=== PATIENT | female | born 1935 | race Caucasian/White ===

== ENCOUNTER 2021-03-20 08:12 | Outpatient (REF) | payer MEDICARE, OTHER, SELFPAY | END 2021-03-20 08:13 | disposition home or self-care (01) | LOC: HO.HOSX 08:12 | PROVIDERS: Visit Provider Physician Assistant | DX: Z13.89 Encounter for screening for other disorder (principal) ==

== ENCOUNTER 2021-03-27 08:12 | Outpatient (REF) | payer MEDICARE, OTHER, SELFPAY ==
--- NOTE | ~2021-03-27 | XR_ITS ---
EXAMINATION: KNEE X-RAY CLINICAL INFORMATION: Right knee pain COMPARISON: Previous x-ray November 2012 TECHNIQUE: Standing AP view of both knees and lateral and sunrise view of the right knee FINDINGS: Right: Bone alignment is normal. No fracture or dislocation is seen. There is mild degenerative change at the medial femoral tibial and patellofemoral joints. There is a ohgwm-xs-vomqubrz joint effusion. There is soft tissue arterial calcification. Standing AP view of the left knee demonstrates mild degenerative change at the medial femoral tibial joint. 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
--- NOTE | ~2021-03-27 | XR_ITS ---
EXAMINATION: KNEE X-RAY CLINICAL INFORMATION: Right knee pain COMPARISON: Previous x-ray November 2012 TECHNIQUE: Standing AP view of both knees and lateral and sunrise view of the right knee FINDINGS: Right: Bone alignment is normal. No fracture or dislocation is seen. There is mild degenerative change at the medial femoral tibial and patellofemoral joints. There is a ychmw-sr-urdwlvew joint effusion. There is soft tissue arterial calcification. Standing AP view of the left knee demonstrates mild degenerative change at the medial femoral tibial joint. XR/XR knee RT 2V IMPRESSION: Right knee: Mild arthritis at the medial femoral tibial and patellofemoral joints and joint effusion.
== END 2021-03-27 08:13 | disposition home or self-care (01) ==
LOC: HO.HOSX 08:12
PROVIDERS: Visit Provider Physician Assistant
DX: M25.561 Pain in right knee (principal); M17.11 Unilateral primary osteoarthritis, right knee; E11.9 Type 2 diabetes mellitus without complications
CPT/HCPCS: 73560; 73565; 99202

== ENCOUNTER → 2021-04-03 08:31 | Outpatient (BNVA) | payer MEDICARE, OTHER, SELFPAY | PROVIDERS: Visit Provider Physician Assistant | DX: M17.11 Unilateral primary osteoarthritis, right knee (principal); E11.9 Type 2 diabetes mellitus without complications | CPT/HCPCS: 20610; 99212; J1020 ==

== ENCOUNTER 2022-11-24 20:33 | Emergency (ER) | payer MEDICARE, OTHER, SELFPAY ==
--- NOTE | 2022-11-24 | ECG_ITS ---
Test Reason : HYPOTENSIVE Blood Pressure : / mmHG Vent. Rate : 076 BPM Atrial Rate : 076 BPM P-R Int : 176 ms QRS Dur : 146 ms QT Int : 448 ms P-R-T Axes : 000 -14 048 degrees QTc Int : 504 ms Normal sinus rhythm Left bundle branch block Abnormal ECG When compared with ECG of 25-FEB-2017 07:30, Left bundle branch block is now Present Referred By: Generic ED Physician Electronically Signed By:Derrek Muñoz
--- NOTE | ~2022-11-24 | XR_ITS ---
EXAMINATION: XR CHEST CLINICAL INFORMATION: Covid positive COMPARISON: None TECHNIQUE: Frontal view of the chest was obtained. FINDINGS: The lungs are well-expanded without any acute pneumonic process. Minimal atelectatic changes in the left lung base are noted. Heart size is borderline enlarged. Pulmonary vascularity is mildly prominent but no congestion. No gross bony abnormality. XR/XR chest 1V IMPRESSION: Minimal atelectatic changes in the left lung base. No acute pneumonic process seen. .
[2022-11-24 20:45] VITALS: BP 128/57; PULSE 87; RESP 19; TEMP 36.7; O2SAT 98
[2022-11-24 20:48] VITALS: BP 146/72; PULSE 104; O2SAT 99; BMI 27.4
--- NOTE | 2022-11-24 21:12 | ED.GENADULT ---
HPI - General Adult General Chief complaint: General Medical Stated complaint: Dizzy per EMS Time Seen by Provider: 11/24/22 21:12 Source: patient Mode of arrival: EMS Limitations: no limitations History of Present Illness HPI narrative: Patient diabetic with history of hypertension on metoprolol, lisinopril, hydrochlorothiazide had COVID symptoms since 11/09 today was feeling weak and tired family checked the blood pressure was 74/56 repeat blood pressure 91/60 when EMS reached patient blood pressure was 145 systolic patient denies any chest pain no palpitation no shortness of breath patient was just feeling weak denies any urinary complaints no fever or chills Related Data Home Medications Medication Instructions Recorded Confirmed diclofenac sodium 1 % topical gel topical 04/03/21 hydrochlorothiazide 25 mg tablet mg PO 04/03/21 insulin aspart U-100 100 unit/mL unit subcut 04/03/21 (3 mL) subcutaneous pen insulin glargine 100 unit/mL (3 unit subcut 04/03/21 mL) subcutaneous pen levothyroxine 100 mcg tablet mcg PO 04/03/21 lisinopril 20 mg tablet mg PO 04/03/21 metformin 500 mg tablet mg PO 04/03/21 metoprolol succinate 25 mg mg PO 04/03/21 tablet,extended release 24 hr pravastatin 80 mg tablet mg PO 04/03/21 Previous Rx's Medication Instructions Recorded cefuroxime axetil 250 mg tablet 250 mg PO BID 7 days #14 tabs 11/25/22 Allergies Allergy/AdvReac Type Severity Reaction Status Date / Time adhesive tape [Adhesive Tape] Allergy Unknown SKIN Unverified 04/03/21 08:38 REDNESS Review of Systems Review of Systems: Yes all other systems are reviewed and are negative [facility] Past Medical History Surgical History Hx of mastectomy Hx of mastectomy Social History Social History Advance Directives: No Advance Directives Information Provided: No Current occupational status: 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 Oriented X3. No acute distress. Eyes: PERRLA, No Nystagmus ENT: Pharynx normal. Oral Mucosa moist Neck: Normal inspection. Neck supple. CVS: Normal heart rate and rhythm. Pulses normal. Respiratory: No respiratory distress. Equal air entry bilateral, no wheezing/rales/rhonchi Abdomen: Soft and nontender. Bowel sounds are present, no mass palpable, no CVA tenderness Skin: Skin warm and dry. Normal skin color. Normal skin turgor. Extremities: No lower extremity edema. No calf tenderness Neuro: Oriented X 3. No motor deficit. No sensory deficit.No cerebellar signs , cranial nerves II-XII intact Medications Administered Generic Name Dose Route Start Last Admin Trade Name Freq PRN Reason Stop Dose Admin Ceftriaxone Sodium 1 gm/ 50 mls @ 100 mls/hr 11/25/22 01:01 11/25/22 01:12 Sodium Chloride IV 11/25/22 01:30 100 mls/hr ONCE ONE Administration Discontinued Medications Generic Name Dose Route Start Last Admin Trade Name Freq PRN Reason Stop Dose Admin Acetaminophen 650 mg 11/25/22 00:47 11/25/22 00:54 Acetaminophen 325 Mg Tablet PO 11/25/22 00:48 650 mg ONCE ONE Administration Sodium Chloride 1,000 mls @ 999 mls/hr 11/24/22 22:20 11/24/22 22:57 Ns IV 11/24/22 23:20 999 mls/hr .Q1H1M ONE Administration Medical Decision Making Medical Decision Making [facility] Narrative: Patient's with transient hypertension with history of COVID workup showed UTI EKG showed LBBB but patient did have any EKG since 2017 at [facility] patient denies any chest pain at this time patient feeling much better discharge patient home advised to follow up with PCP for further evaluation patient was given IV Rocephin in the ED Lab Data [facility] Lab Attestation statement: I reviewed the patient's lab results. 11/24/22 21:13 11/24/22 21:13 Labs: Lab Results 11/24/22 11/24/22 11/24/22 Range/Units 21:13 21:13 22:40 WBC 6.7 (4.8-10.8) X10*3/uL RBC 4.12 L (4.20-5.50) X10*6/uL Hgb 10.9 L (12.0-16.0) g/dl Hct 34.3 L (37.0-47.0) % MCV 83.3 (80.0-98.0) fL MCH 26.5 L (27.0-33.0) pg MCHC 31.8 (31.0-35.0) g/dl RDW 15.6 (11.0-16.0) % Plt Count 245 (160-400) X10*3/uL MPV 10.6 (9.4-12.3) fL Immature Gran % (Auto) 0.3 (0.0-0.4) % Neut % (Auto) 64.4 (45-73) % Lymph % (Auto) 25.2 (20-40) % [place] % (Auto) 8.7 (2-11) % Eos % (Auto) 0.9 (0-4) % Baso % (Auto) 0.5 (0-2) % Lymph # (Auto) 1.7 (1.2-4.9) X10*3/uL [place] # (Auto) 0.6 (0.1-1.2) X10*3/uL Eos # (Auto) 0.1 (0.0-0.4) X10*3/uL Baso # (Auto) 0.0 (0.0-0.2) X10*3/uL Abs Immat Gran (auto) 0.02 (0.00-0.03) X10*3/uL Absolute Neuts (auto) 4.3 (2.0-8.3) x10*3/uL Absolute Nucleated RBC 0.000 (0.0-0.012) X10*3/uL Nucleated RBC % (auto) 0.0 (0.0-0.2) /100WBC Sodium 139 (135-145) mmol/L Potassium 4.5 (3.3-5.1) mmol/L Chloride 105 (96-108) mmol/L Carbon Dioxide 25 (22-29) mmol/L Anion Gap 14 (12-20) BUN 22 H (9-16) mg/dL Creatinine 1.18 (0.5-1.4) mg/dL Estim Creat Clear Calc 35.2 Estimated GFR 43 Random Glucose 64 (60-115) mg/dL Calcium 9.0 (8.4-10.2) mg/dL Total Bilirubin 0.4 (0.0-1.0) mg/dL AST 19 (5-31) U/L ALT 10 (0-31) U/L Alkaline Phosphatase 72 (39-117) U/L Troponin I High Sens 7.0 (<3.5-17.0) ng/L Total Protein 6.2 L (6.5-8.0) g/dL Albumin 3.8 (3.5-5.0) g/dL Urine Color Urine Appearance Urine pH (5.0-9.0) Ur Specific [place] (1.005-1.025) Urine Protein (Neg-Trace) mg/dL Urine Glucose (UA) (Negative) mg/dL Urine Ketones (Negative) mg/dL Urine Blood (Negative) Urine Nitrite (Negative) Ur Leukocyte Esterase (Negative) Urine RBC (0-2) /HPF Urine WBC (0-5) /HPF Ur Squamous Epith Cells (0-2) /HPF Urine Bacteria (None Seen) Hyaline Casts (0-2) /LPF 11/25/22 Range/Units 00:44 WBC (4.8-10.8) X10*3/uL RBC (4.20-5.50) X10*6/uL Hgb (12.0-16.0) g/dl Hct (37.0-47.0) % MCV (80.0-98.0) fL MCH (27.0-33.0) pg MCHC (31.0-35.0) g/dl RDW (11.0-16.0) % Plt Count (160-400) X10*3/uL MPV (9.4-12.3) fL Immature Gran % (Auto) (0.0-0.4) % Neut % (Auto) (45-73) % Lymph % (Auto) (20-40) % [place] % (Auto) (2-11) % Eos % (Auto) (0-4) % Baso % (Auto) (0-2) % Lymph # (Auto) (1.2-4.9) X10*3/uL [place] # (Auto) (0.1-1.2) X10*3/uL Eos # (Auto) (0.0-0.4) X10*3/uL Baso # (Auto) (0.0-0.2) X10*3/uL Abs Immat Gran (auto) (0.00-0.03) X10*3/uL Absolute Neuts (auto) (2.0-8.3) x10*3/uL Absolute Nucleated RBC (0.0-0.012) X10*3/uL Nucleated RBC % (auto) (0.0-0.2) /100WBC Sodium (135-145) mmol/L Potassium (3.3-5.1) mmol/L Chloride (96-108) mmol/L Carbon Dioxide (22-29) mmol/L Anion Gap (12-20) BUN (9-16) mg/dL Creatinine (0.5-1.4) mg/dL Estim Creat Clear Calc Estimated GFR Random Glucose (60-115) mg/dL Calcium (8.4-10.2) mg/dL Total Bilirubin (0.0-1.0) mg/dL AST (5-31) U/L ALT (0-31) U/L Alkaline Phosphatase (39-117) U/L Troponin I High Sens (<3.5-17.0) ng/L Total Protein (6.5-8.0) g/dL Albumin (3.5-5.0) g/dL Urine Color Yellow Urine Appearance Cloudy Urine pH 5.0 (5.0-9.0) Ur Specific [place] 1.020 (1.005-1.025) Urine Protein Negative (Neg-Trace) mg/dL Urine Glucose (UA) Negative (Negative) mg/dL Urine Ketones Trace (Negative) mg/dL Urine Blood Negative (Negative) Urine Nitrite Positive H (Negative) Ur Leukocyte Esterase Moderate (2+) H (Negative) Urine RBC 0-2 (0-2) /HPF Urine WBC 21-50 H (0-5) /HPF Ur Squamous Epith Cells >20 (0-2) /HPF Urine Bacteria 4+ (None Seen) Hyaline Casts 3-5 (0-2) /LPF Independent Interpretation I performed an independent interpretation of an: EKG Interpretation: Normal sinus rhythm heart rate 76 beats per minute left bundle-branch block no acute station in no acute ischemia LBBB is new as compared to 2017 EKG Discharge Plan Discharge Clinical Impression: UTI (urinary tract infection), Complete left bundle branch block (LBBB) Patient Disposition: Home, Self-Care Instructions: Urinary Tract Infection in Women (ED), Heart Block (ED) Additional Instructions: Drink plenty of fluids Take antibiotic as prescribed Follow-up with your PCP about abnormal cardiogram left bundle-branch block for further evaluation Report to the ER if any chest pain Continue your medications Prescriptions: New cefuroxime axetil 250 mg tablet 250 mg PO BID 7 Days Qty: 14 0RF No Action metoprolol succinate 25 mg tablet extended release 24 hr PO levothyroxine 100 mcg tablet PO lisinopril 20 mg tablet PO Lantus Solostar U-100 Insulin 100 unit/mL (3 mL) insulin pen subcut insulin aspart U-100 100 unit/mL (3 mL) insulin pen subcut pravastatin 80 mg tablet PO metformin 500 mg tablet PO diclofenac sodium 1 % gel topical hydrochlorothiazide 25 mg tablet PO
[2022-11-24 21:18] LABS: MANUAL DIFF FLAG NO
--- OUTSIDE RECORDS SUMMARY | 2022-11-24 21:18 | XMS_ITS | Continuity of Care Document ---
:[address] [facility] Adult Address [address] [place] [address]- Care Team Providers Name Role Phone Janes Foster MD Primary Care Physician Encounter [facility] Date(s): 07/04/20 - 08/03/20 [facility] Adult [address] [place] [address]- [facility] Attending Physician: AdmKate jeffries Admitting Physician: AdmtrKate Referring Physician: Admtr, [id number] Allergies, Adverse Reactions, Alerts Substance Reaction Severity Status NKA Active Immunizations Given and Recorded Vaccine Date Status Refusal Reason tetanus/diphtheria/pertussis, acel(Tdap) 09/06/19 Given Influenza Virus Vaccine (oldterm) 08/13/19 Recorded Influenza Virus Vaccine (oldterm)1 08/16/17 Given Influenza Virus Vaccine (oldterm)2 08/03/09 Given influenza virus vaccine, inactivated 08/14/18 Given influenza virus vaccine, inactivated3 08/17/16 Given influenza virus vaccine, inactivated4 11/13/15 Given influenza virus vaccine, inactivated 08/21/14 Given influenza virus vaccine, inactivated5 08/17/13 Given influenza virus vaccine, inactivated6 07/22/12 Given influenza virus vaccine, inactivated7 09/09/06 Given pneumococcal 13-valent vaccine 03/29/15 Given FluLaval (oldterm)8 08/01/11 Given FluLaval (oldterm)9 08/21/10 Given influ virus vac, H1N1, inactive(oldterm)10 07/22/11 Given tetanus-diphtheria toxoids (Td)11 11/30/09 Given tetanus-diphtheria toxoids (Td) 11/16/99 Given Influenza Inactive (IM) (oldterm) 09/14/08 Given Pneumococcal Vaccine (oldterm) 11/16/04 Given 1Admin Note: [facility] [id number] Note: given by simone torres by Neo Note: [id number] FLU [id number] Note: VIS [id number] Admin Note: GIVEN IN CLINIC [id number] Note: [id number]: [facility] VIS [phone] [id number] Comment: WRONG [id number] Note: historical data Medications amoxicillin 500 mg oral capsule See Instructions, 4 capsule By Mouth One Hour Prior to Dental Procedure dentiist prescribes, # 4 capsule, 5 Refills, Maintenance, 08/03/20 9:37:00 EDT, Capsule, [facility]/pharmacy #[id number], 165, cm, 03/13/20 16:53:00 EDT, Height Start Date: 08/03/20 Status: OrderedAspirin Enteric Coated 81 mg oral delayed release tablet See Instructions, # 90 tablet, Refills 3 Tot. Refills 3, TAKE 1 TABLET BY MOUTH EVERY DAY, [facility]/pharmacy #[id number] Start Date: 06/27/19 Status: OrderedBREAST PROSTHETIC BREAST PROSTHETIC, See Instructions, # 1 each, Refills 0, Tot. Refills 0, Maintenance, USE DIRECTED DX BREAST CANCER C50.919 FAX [phone], 12/17/16 10:11:47, Compound Start Date: 12/17/16 Status: OrderedDepakote ER 500 mg oral tablet, extended release 1 tablet = 500 mg, By Mouth, Daily, # 90 tablet, 1 Refills, Maintenance, 12/30/19 13:35:00 EST, ER Tablet, [facility]/pharmacy #[id number], 165, cm, 09/06/19 10:39:00 EDT, Height, 68.1, kg, 03/31/18 0:53:00 EDT, Dry Weight Start Date: 12/30/19 Status: OrderedFreestyle Lite Test Strips See Instructions, # 360 each, Refills 3, Tot. Refills 3, Maintenance, TEST BS 4 times qday DX E11.9 IDDM 90 DAY SUPPLY, 07/09/20 9:55:00 EDT, Compound, 165, cm, 03/13/20 16:53:00 EDT, Height, Dry Weight Start Date: 07/09/20 Status: OrderedGlucophage 500 mg oral tablet 1 tablet = 500 mg, By Mouth, 2 times a day before breakfast and dinne, # 180 tablet, 1 Refills, Maintenance, 06/05/20 12:43:00 EDT, [facility], 165, cm, 03/13/20 16:53:00 EDT, Height Start Date: 06/05/20 Status: OrderedHearing test Hearing test, See Instructions, # 1 each, Refills 0, Tot. Refills 0, Maintenance, Please evaluate and treat patient for hearing loss., 05/02/14 10:11:59, Compound Start Date: 05/02/14 Status: Orderedhydrochlorothiazide 25 mg oral tablet 1, tablet, By Mouth, Daily, # 90 tablet, Refills 0, Tot. Refills 0, Maintenance, 06/05/20 16:00:00 EDT, Route to Pharmacy Electronically, [facility], 165, cm, 03/13/20 16:53:00 EDT, Height Start Date: 06/05/20 Status: OrderedKlonoPIN 0.5 mg oral tablet 1 tablet = 0.5 mg, By Mouth, 2 times a day, PRN vertigo, # 30 tablet, 0 Refills, Maintenance, 02/14/20 12:08:00 EDT, Tablet, [facility]/pharmacy #[id number], 165, cm, 09/06/19 10:39:00 EDT, Height, 68.1, kg, 03/31/18 0:53:00 EDT, Dry Weight Start Date: 02/14/20 Status: OrderedLantus Solostar Pen 100 units/mL subcutaneous solution See Instructions, INJECT 17 UNITS SUBCUTANEOUSLY DAILY. ROTATE INJECTION SITES, # 5 each, 3 Refills,03/13/20 17:21:00 EDT, [facility]/pharmacy #[id number], 165, cm, 03/13/20 16:53:00 EDT, Height, 68.1, kg, 03/31/18 0:53:00 EDT, Dry Weight Start Date: 03/13/20 Status: OrderedLevoxyl 0.1 mg oral tablet 1 tablet = 0.1 mg, By Mouth, Daily, # 90 tablet, 1 Refills, Maintenance, 04/02/20 12:46:00 EDT, Tablet, [facility], 165, cm, 03/13/20 16:53:00 EDT, Height Start Date: 04/02/20 Status: Orderedlisinopril 20 mg oral tablet 20 mg, 1, tablet, By Mouth, Daily, # 90 tablet, Refills 1, Tot. Refills 1, Maintenance, 04/02/20 12:50:00 EDT, Route to Pharmacy Electronically, [facility], 165, cm, 03/13/20 16:53:00 EDT, Height, Dry Weight Start Date: 04/02/20 Status: OrderedMASTECTOMY BRA MASTECTOMY BRA, See Instructions, # 3 each, Refills 1, Tot. Refills 1, Maintenance, USE DIRECTED DX BREAST CA C50.919 FAX [phone], 12/17/16 10:13:30, Compound Start Date: 12/17/16 Status: OrderedMetoprolol Succinate ER 25 mg oral tablet, extended release See Instructions, TAKE 1 TABLET BY MOUTH EVERY DAY, # 90 tablet, 1 Refills, Soft Stop, 04/02/20 12:50:00 EDT, [facility], 165, cm, 03/13/20 16:53:00 EDT, Height, Dry Weight Start Date: 04/02/20 Status: OrderedMisc Durable Medical Equipment MASTECTOMY BRA, See Instructions, # 3 each, Refills 0, Tot. Refills 0, Maintenance, USE DIRECTED DX BREAST CANCER, 09/17/16 15:02:49, Compound Start Date: 09/17/16 Status: OrderedNovoLOG FlexPen 100 units/mL subcutaneous solution See Instructions, sliding scale if BS 70-99= 3 units, 100-129=4 u, 130-159=5 u, 160-189=6 u, 190-219=7 u, 220-249=8 u, 250-279=9 u, 280-309=10 u, # 30 mL, 3 Refills, Maintenance, 05/22/20 14:15:00 EDT,[facility], 251- 280=7 units,28... Start Date: 05/22/20 Status: OrderedPen [place], 31 G x 5 mm BD Ultra Fine III See Instructions, # 360 each, Refills 3, Tot. 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, 07/11/19 9:18:36 EDT, 90 day supply, Compound Start Date: 07/11/19 Status: Orderedpravastatin 80 mg oral tablet See Instructions, TAKE 1 TABLET BY MOUTH EVERYDAY AT BEDTIME, # 90 tablet, 1 Refills, Soft Stop, 04/02/20 12:46:00 EDT, [facility], 165, cm, 03/13/20 16:53:00 EDT, Height, Dry Weight Start Date: 04/02/20 Status: OrderedVitamin B12 1000 mcg oral tablet 1 tablet = 1,000 mcg, By Mouth, Daily, # 90 tablet, 3 Refills, Maintenance, 03/21/19 11:17:30 EDT, Tablet Start Date: 03/21/19 Status: OrderedZithromax 250 mg oral tablet 1 pack/packet, By Mouth, Once, # 6 tablet, 0 Refills, Soft Stop, 02/14/20 12:08:00 EDT, Tablet, [facility]/pharmacy #[id number], 165, cm, 09/06/19 10:39:00 EDT, Height, 68.1, kg, 03/31/18 0:53:00 EDT, Dry Weight Start Date: 02/14/20 Status: Ordered Problem List Condition Effective Dates Status Health Status Informant NSTEMI (non-ST elevated myocardial Active infarction)(Confirmed)1 Breast cancer(Confirmed) Active Chronic kidney disease (CKD), stage Active I(Confirmed) Chronic osteoarthritis(Confirmed) Active Colonoscopy(Confirmed)2 Active Coronary artery disease(Confirmed) Active Current use of insulin(Confirmed) Active Hearing loss(Confirmed) Active HTN (hypertension)(Confirmed) Active Hypercholesterolemia(Confirmed) Active Hypothyroid(Confirmed) Active Meniere's disease(Confirmed) Active 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
--- OUTSIDE RECORDS SUMMARY | 2022-11-24 21:18 | XMS_ITS | Continuity of Care Document ---
:1935 Author Organization [facility] Adult Address [address] [place] [address]- Care Team Providers Name Role Phone Kristin MAGALLANES, Janes Edwards Primary Care Physician [facility] Date[facility]): 08/26/22 - 09/25/22 [facility] [address] [place] [address]- Allergies, Adverse Reactions, Alerts No Known Allergies Immunizations Given and Recorded Vaccine Date Status Refusal Reason SARS-CoV-2 mRNA ([id number]) vax 04/03/22 Recorde d SARS-CoV-2 (COVID-19) mRNA BNT-162b2 vac1 08/27/21 Record ed SARS-CoV-2 (COVID-19) mRNA BNT-162b2 vac 01/18/21 Given SARS-CoV-2 (COVID-19) mRNA BNT-162b2 vac 12/28/20 Given influenza virus vaccine, inactivated2 08/24/21 Recorded influenza virus vaccine, inactivated 08/14/18 Given influenza virus vaccine, inactivated3 08/17/16 Given influenza virus vaccine, inactivated4 11/13/15 Given influenza virus vaccine, inactivated 08/21/14 Given influenza virus vaccine, inactivated5 08/17/13 Given influenza virus vaccine, inactivated6 07/22/12 Given influenza virus vaccine, inactivated7 09/09/06 Given Influenza Virus Vaccine (oldterm)8 07/30/20 Recorded Influenza Virus Vaccine (oldterm) 07/30/20 Recorded Influenza Virus Vaccine (oldterm) 08/13/19 Recorded Influenza Virus Vaccine (oldterm)9 08/16/17 Given Influenza Virus Vaccine (oldterm)10 08/03/09 Given tetanus/diphtheria/pertussis, acel(Tdap) 09/06/19 Given pneumococcal 13-valent vaccine 03/29/15 Given FluLaval (oldterm)11 9/16/11 Given FluLaval (oldterm)12 08/21/10 Given influ virus vac, H1N1, inactive(oldterm)13 07/22/11 Given tetanus-diphtheria toxoids (Td)14 11/30/09 Given tetanus-diphtheria toxoids (Td) 11/16/99 Given Influenza Inactive (IM) (oldterm) 09/14/08 Given Pneumococcal Vaccine (oldterm) 11/16/04 Given 1Result Comment: [facility] [id number] Comment: [id number] Note: done at [id number] Note: [facility] lohafw3Kkzsh Note: FLU [id number] Note: VIS FVKVD5Spbil Note: GIVEN IN CLINIC [id number] Comment: local waimooyc7Ksdsu Note: [facility] mfdgfc73Vasfy Note: given by simone doc by [id number] Note: Biomedical Jason [facility]37Cccmb Note: Rental[facility] VIS [id number] Comment: WRONG JHVXI10Redrt Note: historical data Medications amoxicillin 500 mg oral capsule See Instructions, 4 capsule By Mouth One Hour Prior to Dental Procedure dentiist prescribes, # 4 capsule, 5 Refills, Maintenance, 06/30/22 15:13:00 EDT, Capsule, [id number] 165, cm, 10/29/21 10:57:00 EST, Height Start Date: 06/30/22 Status: OrderedAspirin Enteric Coated 81 mg oral delayed release tablet See Instructions, # 90 tablet, Refills 3 Tot. Refills 3, TAKE 1 TABLET BY MOUTH EVERY DAY, [id number] Start Date: 06/27/19 Status: OrderedBREAST PROSTHETIC BREAST PROSTHETIC, See Instructions, # 1 each, Refills 0, Tot. Refills 0, Maintenance, USE DIRECTED DX BREAST CANCER C50.919 FAX [phone], 12/17/16 10:11:47, Compound Start Date: 12/17/16 Status: OrderedDepakote ER 500 mg oral tablet, extended release 1 tablet = 500 mg, By Mouth, Daily, # 90 tablet, 1 Refills, Maintenance, 12/30/19 13:35:00 EST, ER Tablet, [id number], 165, cm, 09/06/19 10:39:00 EDT, Height, 68.1, kg, 03/31/18 0:53:00 EDT, Dry Weight Start Date: 12/30/19 Status: OrderedDiabetic Shoes Diabetic Shoes, See Instructions, # 2 each, Refills 0, Tot. Refills 0, Maintenance, Dx: Diabetic type 2 with Neuropathy WT: 166lbs HT: 5'5 , 08/19/22 11:38:00 EDT, Supply Start Date: 08/19/22 Status: OrderedFreestyle Lite Monitor See Instructions, # 1 each, Refills 0, Tot. Refills 0, Maintenance, Use as directed to check FBS tidE11.9 IDDM, 01/22/21 10:43:00 EST, Supply, 165, cm, 09/20/20 10:13:00 EST, Height Start Date: 01/22/21 Status: OrderedFREESTYLE LITE TEST STRIP FREESTYLE LITE TEST STRIP, See Instructions, # 250 Unknown, 5 Refills, Maintenance, TEST BLOOD SUGAR3 TIMES DAILY, 08/18/22 16:17:00 EDT, 165, cm, 10/29/21 10:57:00 EST, Height Start Date: 08/18/22 Status: OrderedFreestyle Lite Test Strips See Instructions, # 270 each, Refills 3, Tot. Refills 3, Maintenance, Use to test BS tid E11.9 IDDM,08/05/22 10:35:00 EDT, 3 month supply, Supply, 165, cm, 10/29/21 10:57:00 EST, Height Start Date: 08/05/22 Status: OrderedHearing test Hearing test, See Instructions, # 1 each, Refills 0, Tot. Refills 0, Maintenance, Please evaluate and treat patient for hearing loss., 05/02/14 10:11:59, Compound Start Date: 05/02/14 Status: Orderedhydrochlorothiazide 25 mg oral tablet See Instructions, TAKE 1 TABLET EVERY DAY, # 90 tablet, Refills 0, Instructions Replace Required Details, Route to Pharmacy Electronically, [facility] (Now [facility]), 165,cm, 10/29/21 10:57:00 EST, Height Start Date: 05/28/22 Status: OrderedLantus Solostar Pen 100 units/mL subcutaneous solution See Instructions, INJECT 17 UNITS SUBCUTANEOUSLY DAILY. ROTATE INJECTION SITES, # 15 Unknown, 1 Refills, Maintenance, 09/25/22 6:55:00 EST, [id number], 165, cm, 10/29/21 10:57:00 EST, Height Start Date: 09/25/22 Status: Orderedlevothyroxine 0.1 mg oral tablet 1 tablet, By Mouth, Daily, # 90 tablet, 1 Refills, [facility], 165, cm, 10/29/21 10:57:00 EST, Height Start Date: 03/31/22 Status: Orderedlisinopril 20 mg oral tablet 1, tablet, By Mouth, Daily, # 90 tablet, Refills 1, Route to Pharmacy Electronically, [facility], 165, cm, 10/29/21 10:57:00 EST, Height Start Date: 03/31/22 Status: OrderedMASTECTOMY BRA MASTECTOMY BRA, See Instructions, # 3 each, Refills 1, Tot. Refills 1, Maintenance, USE DIRECTED DX BREAST CA C50.919 FAX [phone], 12/17/16 10:13:30, Compound Start Date: 12/17/16 Status: OrderedmetFORMIN 500 mg oral tablet 1 tablet = 500 mg, By Mouth, 2 times a day, # 180 tablet, 3 Refills, Maintenance, 11/25/21 10:33:00 EST, Tablet, [facility], Partial fill upon patient request if the prescription is for a schedule II opioid drug., 165, cm, 10/29/21... Start Date: 11/25/21 Status: OrderedmetFORMIN 500 mg oral tablet See Instructions, TAKE 1 TABLET TWICE DAILY, # 180 tablet, 0 Refills, Maintenance, 09/05/22 11:17:00EDT, [facility], 165, cm, 10/29/21 10:57:00 EST, Height Start Date: 09/05/22 Status: OrderedMetoprolol Succinate ER 25 mg oral tablet, extended release 1 tablet, By Mouth, Daily, # 90 tablet, 1 Refills, 06/20/22 9:45:00 EDT, [facility] ([facility]), 165, cm, 10/29/21 10:57:00 EST, Height Start Date: 06/20/22 Status: OrderedMisc Durable Medical Equipment MASTECTOMY BRA, See Instructions, # 3 each, Refills 0, Tot. Refills 0, Maintenance, USE DIRECTED DX BREAST CANCER, 09/17/16 15:02:49, Compound Start Date: 09/17/16 Status: OrderedNovoLOG FlexPen 100 units/mL injectable solution See Instructions, SLIDING SCALE IF BS 70-99= 9 UNITS, 100-129=10 U, 130-159=11 U, 160-189=12 U, 190-219=13 U, 220-249=14 U, 250-279=15 U,, 280-309=16 U, 310- 350: 17 U & CALL PCP OFFICE, # 45 Unknown, 1 Refills, 03/10/22 9:45:00 EDT, [facility]/pharmacy #[id number]... Start Date: 03/10/22 Status: OrderedPen [place], 31 G x 5 mm BD Ultra Fine III See Instructions, # 360 each, Refills 3, Tot. 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, 07/11/19 9:18:36 EDT, 90 day supply, Compound Start Date: 07/11/19 Status: Orderedpravastatin 80 mg oral tablet 1 tablet, By Mouth, Daily at bedtime, # 90 tablet, 1 Refills, [facility] ([facility]), 165, cm, 10/29/21 10:57:00 EST, Height Start Date: 05/31/22 Status: OrderedShoe Inserts Shoe Inserts, See Instructions, # 6 each, Refills 0, Tot. Refills 0, Maintenance, Dx: Diabetic type 2 with Neuropathy WT: 166lbs HT: 5'5 , 08/19/22 11:38:00 EDT, Supply Start Date: 08/19/22 Status: OrderedVitamin B12 1000 mcg oral tablet 1 tablet = 1,000 mcg, By Mouth, Daily, # 90 tablet, 3 Refills, Maintenance, 06/18/21 13:50:00 EDT, Tablet, [facility]/pharmacy #[id number], 165, cm, 03/22/21 10:38:00 EDT, Height Start Date: 06/18/21 Status: Ordered Problem List Condition Confirmation Course Effective Status Health Informa nt Dates Status NSTEMI (non-ST elevated Confirmed Active myocardial infarction)1 Breast cancer Confirmed Active Chronic kidney disease Confirmed Active (CKD), stage I Chronic osteoarthritis Confirmed Active Colonoscopy2 Confirmed Active Coronary artery disease Confirmed Active Current use of insulin Confirmed Active Hearing loss Confirmed Active HTN (hypertension) Confirmed Active Hypercholesterolemia Confirmed Active Hypothyroid Confirmed Active Meniere's disease Confirmed Active Neuropathy in diabetes Confirmed Active Anemia, 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 Proteinuria Confirmed Active Recurrent UTI (urinary Confirmed Active tract infection) 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 Confirmed Active 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 Type 2 diabetes, Confirmed Active controlled, with neuropathy Vitamin D Deficiency Confirmed Active 1H [id number] 200o nl, declines repeat Social History Social History Type Response Smoking Status Never smoker; Other: Quit sm oking age 25; entered on: 06/16/16 Sex Patient Care team information Care Team PersonnelName: Kristin MAGALLANES, Janes Edwards Position: [facility] Primary Care Physician Member Role: PCP Address: Address: [address] [place] [address]- Name: Zamzam Alejandro RN Position: [facility] RN Member Role: Primary Care Nurse Name: Juan Manuel Hernandez Position: [facility] Outreach Member Role: Lifetime Consulting Physician Name: Kalpesh MORGAN, Ena Position: [facility] Hospital Sheet Fed Printer Member Role: Primary Care Nurse Care Team Related PersonsName: YUNIOR JOHNSON Name: RAFAEL JOHNSON Address: [place] [address] Name: ZOYA SIN Address: [address] [address]
--- OUTSIDE RECORDS SUMMARY | 2022-11-24 21:18 | XMS_ITS | Continuity of Care Document ---
:1935 Author Organization [facility] [place] Address [address] [place] [address]- Care Team Providers Name Role Phone Janes Foster MD Primary Care Physician [facility]counter [facility] Date(s): 08/16/20 - 09/15/20 [facility] [place] [address] [place] [address]- [facility] Allergies, Adverse Reactions, Alerts Substance Reaction Severity Status NKA Active Immunizations Given and Recorded Vaccine Date Status Refusal Reason Influenza Virus Vaccine (oldterm)1 07/30/20 Recorded Influenza Virus Vaccine (oldterm) 07/30/20 Recorded Influenza Virus Vaccine (oldterm) 08/13/19 Recorded Influenza Virus Vaccine (oldterm)2 08/16/17 Given Influenza Virus Vaccine (oldterm)3 08/03/09 Given tetanus/diphtheria/pertussis, acel(Tdap) 09/06/19 Given influenza virus vaccine, inactivated 08/14/18 Given influenza virus vaccine, inactivated4 08/17/16 Given influenza virus vaccine, inactivated5 11/13/15 Given influenza virus vaccine, inactivated 08/21/14 Given influenza virus vaccine, inactivated6 08/17/13 Given influenza virus vaccine, inactivated7 07/22/12 Given influenza virus vaccine, inactivated8 09/09/06 Given pneumococcal 13-valent vaccine 03/29/15 Given FluLaval (oldterm)9 08/01/11 Given FluLaval (oldterm)10 08/21/10 Given influ virus vac, H1N1, inactive(oldterm)11 07/22/11 Given tetanus-diphtheria toxoids (Td)12 11/30/09 Given tetanus-diphtheria toxoids (Td) 11/16/99 Given Influenza Inactive (IM) (oldterm) 09/14/08 Given Pneumococcal Vaccine (oldterm) 11/16/04 Given 1Result Comment: local [id number] Note: [facility] [id number] Note: given by simone torres by [id number] Note: done at [id number] [facility]: FLU [id number] Note: VIS XKMGD9Mmphn Note: GIVEN IN CLINIC LDKN8Dutwo Note: Biomedical [facility]Hgdkvz76Qyrlv Note: [facility]ical [employer] [facility] VIS [id number] Comment: WRONG [id number] Note: historical data Medications amoxicillin 500 mg oral capsule See Instructions, 4 capsule By Mouth One Hour Prior to Dental Procedure dentiist prescribes, # 4 capsule, 5 Refills, Maintenance, 08/03/20 9:37:00 EDT, Capsule, [facility]/pharmacy #[id number], 165, cm, 03/13/20 16:53:00 EDT, Height Start Date: 08/03/20 Status: OrderedAspirin Enteric Coated 81 mg oral delayed release tablet See Instructions, # 90 tablet, Refills 3 Tot. Refills 3, TAKE 1 TABLET BY MOUTH EVERY DAY, [facility]/pharmacy #[id number] Start Date: 06/27/19 Status: OrderedBREAST PROSTHETIC BREAST PROSTHETIC, See Instructions, # 1 each, Refills 0, Tot. Refills 0, Maintenance, USE DIRECTED DX BREAST CANCER C50.919 FAX [phone], 12/17/16 10:11:47, Compound Start Date: 12/17/16 Status: OrderedDepakote ER 500 mg oral tablet, extended release 1 tablet = 500 mg, By Mouth, Daily, # 90 tablet, 1 Refills, Maintenance, 12/30/19 13:35:00 EST, ER Tablet, [facility]/pharmacy #[id number], 165, cm, 09/06/19 10:39:00 EDT, Height, [...] tablet, 1 Refills, Maintenance, 06/05/20 12:43:00 EDT, [facility], 165, cm, 03/13/20 16:53:00 EDT, Height Start Date: 06/05/20 Status: OrderedHearing test Hearing test, See Instructions, # 1 each, Refills 0, Tot. Refills 0, Maintenance, Please evaluate and treat patient for hearing loss., 05/02/14 10:11:59, Compound Start Date: 05/02/14 Status: Orderedhydrochlorothiazide 25 mg oral tablet 1, tablet, By Mouth, Daily, # 90 tablet, Refills 0, Tot. Refills 0, Maintenance, 08/16/20 12:04:00 EDT, Route to Pharmacy Electronically, [facility], 165, cm, 03/13/20 16:53:00 EDT, Height Start Date: 08/16/20 Status: OrderedKlonoPIN 0.5 mg oral tablet 1 tablet = 0.5 mg, By Mouth, 2 times a day, PRN vertigo, # 30 tablet, 0 Refills, Maintenance, 02/14/20 12:08:00 EDT, Tablet, [facility]/pharmacy #[id number], 165, cm, 09/06/19 10:39:00 EDT, Height, 68.1, kg, 03/31/18 0:53:00 EDT, Dry Weight Start Date: 02/14/20 Status: OrderedLantus Solostar Pen 100 units/mL subcutaneous solution See Instructions, INJECT 17 UNITS SUBCUTANEOUSLY DAILY. ROTATE INJECTION SITES, # 5 each, 3 Refills,03/13/20 17:21:00 EDT, [facility]/pharmacy #[id number], 165, cm, 03/13/20 16:53:00 EDT, Height, 68.1, kg, 03/31/18 0:53:00 EDT, Dry Weight Start Date: 03/13/20 Status: OrderedLevoxyl 0.1 mg oral tablet 1 tablet = 0.1 mg, By Mouth, Daily, # 90 tablet, 0 Refills, Maintenance, 08/26/20 7:47:00 EDT, Tablet, [facility], 165, cm, 03/13/20 16:53:00 EDT, Height Start Date: 08/26/20 Status: Orderedlisinopril 20 mg oral tablet 20 mg, 1, tablet, By Mouth, Daily, # 90 tablet, Refills 0, Tot. Refills 0, Maintenance, 08/26/20 7:47:00 EDT, Route to Pharmacy Electronically, [facility], 165, cm, 03/13/20 16:53:00EDT, Height, Dry Weight Start Date: 08/26/20 Status: OrderedMASTECTOMY BRA MASTECTOMY BRA, See Instructions, # 3 each, Refills 1, Tot. Refills 1, Maintenance, USE DIRECTED DX BREAST CA C50.919 FAX [phone], 12/17/16 10:13:30, Compound Start Date: 12/17/16 Status: OrderedMetoprolol Succinate ER 25 mg oral tablet, extended release See Instructions, TAKE 1 TABLET BY MOUTH EVERY DAY, # 90 tablet, 0 Refills, Soft Stop, 08/26/20 7:47:00 EDT, [facility], 165, cm, 03/13/20 16:53:00 EDT, Height, Dry Weight Start Date: 08/26/20 Status: OrderedMisc Durable Medical Equipment MASTECTOMY BRA, See Instructions, # 3 each, Refills 0, Tot. Refills 0, Maintenance, USE DIRECTED DX BREAST CANCER, 09/17/16 15:02:49, Compound Start Date: 09/17/16 Status: OrderedNovoLOG FlexPen 100 units/mL subcutaneous solution See Instructions, sliding scale if BS 70-99= 7 units, 100-129=8 u, 130-159=9 u, 160-189=10 u, 190-219=11 u, 220-249=12 u, 250-279=13 u,, 280-309=14 u, 310-350: 16 u & call pcp office, # 30 mL, 3 Refills, Maintenance, 05/22/20 14:15:00 EDT, [facility]... Start Date: 05/22/20 Status: OrderedPen [place], 31 G x 5 mm BD Ultra Fine III See Instructions, # 360 each, Refills 3, Tot. 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, 07/11/19 9:18:36 EDT, 90 day supply, Compound Start Date: 07/11/19 Status: Orderedpravastatin 80 mg oral tablet See Instructions, TAKE 1 TABLET BY MOUTH EVERYDAY AT BEDTIME, # 90 tablet, 1 Refills, Soft Stop, 08/26/20 7:47:00 EDT, [facility], 165, cm, 03/13/20 16:53:00 EDT, Height, Dry Weight Start Date: 08/26/20 Status: OrderedVitamin B12 1000 mcg oral tablet 1 tablet = 1,000 mcg, By Mouth, Daily, # 90 tablet, 3 Refills, Maintenance, 03/21/19 11:17:30 EDT, Tablet Start Date: 03/21/19 Status: OrderedZithromax 250 mg oral tablet 1 pack/packet, By Mouth, Once, # 6 tablet, 0 Refills, Soft Stop, 02/14/20 12:08:00 EDT, Tablet, [id number], 165, cm, 09/06/19 10:39:00 [...] with Active neuropathy(Confirmed) Vitamin D Deficiency(Confirmed) Active 1[facility] [id number] 200o nl, declines repeat Social History Social History Type Response Smoking Status Never smoker; Other: Quit sm oking age 25; entered on: 06/16/16 Sex
--- OUTSIDE RECORDS SUMMARY | 2022-11-24 21:19 | XMS_ITS | Continuity of Care Document ---
:1935 Author Organization [facility] Address [address] [place] [address]- Care Team Providers Name Role Phone Janes Foster MD Primary Care Physician Encounter [facility] Date(s): 07/24/22 - 08/23/[address] [address] Attending Physician: Admtr, Kate Admitting Physician: Admtr, Ar8 Referring Physician: Admtr, Ar8 Allergies, Adverse Reactions, Alerts No Known Allergies Immunizations Given and Recorded Vaccine Date Status Refusal Reason SARS-CoV-2 mRNA (vmkhjed-[id number]) vax 04/03/22 Recorde d SARS-CoV-2 (COVID-19) mRNA [...] pneumococcal 13-valent vaccine 03/29/15 Given FluLaval (oldterm)11 08/01/11 Given FluLaval (oldterm)12 08/21/10 Given influ virus vac, H1N1, inactive(oldterm)13 07/22/11 Given tetanus-diphtheria toxoids (Td)14 11/30/09 Given tetanus-diphtheria toxoids (Td) 11/16/99 Given Influenza Inactive (IM) (oldterm) 09/14/08 Given Pneumococcal Vaccine (oldterm) 11/16/04 Given 1Result Comment: [facility] [id number] Comment: CJB1Llsit Note: done at LRU2Foayq Note: [facility] rntedo3Fbhcp Note: FLU IRDGYW4Vebds Note: VIS ZICRY3Pzroo Note: GIVEN IN CLINIC ZYSG2Dtqofo Comment: local rdjoejwh1Xnqbz Note: [facility] ogdobz27Cpeoi Note: given by simone doc by aycgej39Scjtp Note: Biomedical [facility] [employer]07Fwifj Note: [facility] VIS [phone] rlswf04Ikywix Comment: WRONG AMTDM79Ktpcp Note: historical data Medications amoxicillin 500 mg oral capsule See Instructions, 4 capsule By Mouth One Hour Prior to Dental Procedure dentiist prescribes, # 4 capsule, 5 Refills, Maintenance, 06/30/22 15:13:00 EDT, Capsule, [facility]/pharmacy #[id number], 165, cm, 10/29/21 10:57:00 EST, Height [...] USE DIRECTED DX BREAST CANCER C50.919 FAX [phone], 12/17/16 10:11:47, Compound Start Date: 12/17/16 Status: [...] Replace Required Details, Route to Pharmacy Electronically, [facility] ([facility]), 165,cm, 10/29/21 10:57:00 EST, Height Start Date: 05/28/22 Status: OrderedLantus Solostar Pen 100 units/mL subcutaneous solution See Instructions, INJECT 19 UNITS SUBCUTANEOUSLY DAILY. ROTATE INJECTION SITES, # 15 Unknown, 1 Refills, [id number], 165, cm, 10/29/21 10:57:00 EST, Height Start Date: 05/23/22 Status: Orderedlevothyroxine 0.1 mg oral tablet 1 tablet, By Mouth, Daily, # 90 tablet, 1 Refills, [facility], 165, cm, 10/29/21 10:57:00 EST, Height Start Date: 03/31/22 Status: Orderedlisinopril 20 mg oral tablet 1, tablet, By Mouth, Daily, # 90 tablet, Refills 1, Route to Pharmacy Electronically, [facility], 165, cm, 10/29/21 10:57:00 EST, Height Start Date: 03/31/22 Status: OrderedMASTECTOMY BRA MASTECTOMY BRA, See Instructions, # 3 each, Refills 1, Tot. Refills 1, Maintenance, USE DIRECTED DX BREAST CA C50.919 FAX [phone], 12/17/16 10:13:30, Compound Start Date: 12/17/16 Status: OrderedmetFORMIN 500 mg oral tablet 1 tablet = 500 mg, By Mouth, 2 times a day, # 180 tablet, 3 Refills, Maintenance, 11/25/21 10:33:00 EST, Tablet, [facility], Partial fill upon patient request if the prescription is for a schedule II opioid drug., 165, cm, 10/29/21... Start Date: 11/25/21 Status: OrderedMetoprolol Succinate ER 25 mg oral tablet, extended release 1 tablet, By Mouth, Daily, # 90 tablet, 1 Refills, 06/20/22 9:45:00 EDT, [facility] (Now [facility]), 165, cm, 10/29/21 10:57:00 EST, Height Start Date: 06/20/22 Status: OrderedMisc Durable Medical Equipment MASTECTOMY BRA, See Instructions, # 3 each, Refills 0, Tot. Refills 0, Maintenance, USE DIRECTED DX BREAST CANCER, 09/17/16 15:02:49, Compound Start Date: 11/2/16 Status: OrderedNovoLOG FlexPen 100 units/mL injectable solution See Instructions, SLIDING SCALE IF BS 70-99= 9 UNITS, 100-129=10 U, 130-159=11 U, 160-189=12 U, 190-219=13 U, 220-249=14 U, 250-279=15 U,, 280-309=16 U, 310- 350: 17 U & CALL PCP OFFICE, # 45 Unknown, 1 Refills, 03/10/22 9:45:00 EDT, [facility]/pharmacy #[id number]... Start Date: 03/10/22 Status: OrderedPen [place], 31 G x 5 mm BD Ultra Fine III See Instructions, # 360 each, Refills 3, Tot. 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, 07/11/19 9:18:36 EDT, 90 day supply, Compound Start Date: 07/11/19 Status: Orderedpravastatin 80 mg oral tablet 1 tablet, By Mouth, Daily at bedtime, # 90 tablet, 1 Refills, [facility] ([facility]), 165, cm, 10/29/21 10:57:00 EST, Height Start [...] 3 Refills, Maintenance, 06/18/21 13:50:00 EDT, Tablet, [facility]/pharmacy #[id number], 165, cm, 03/22/21 [...] with neuropathy Vitamin D Deficiency Confirmed Active 1[facility] [id number] 200o nl, declines repeat Social History Social History Type Response Smoking Status Never smoker; Other: Quit sm oking age 25; entered on: 06/16/16 Sex Patient Care team information PersonnelName: Kristin MAGALLANES, Janes Edwards Address: Address: [address] [place] [id number]
--- OUTSIDE RECORDS SUMMARY | 2022-11-24 21:19 | XMS_ITS | Continuity of Care Document ---
:1935 Author Organization [facility] Adult Address [address] [place] [address]- Care Team Providers Name Role Phone Janes Foster MD Primary Care Physician [place] [facility]14[place]20 [place] 02/21/20 [facility] [address] [place] [id number] [facility] Encounter Diagnosis Meniere's disease (Discharge Diagnosis) - 02/14/20 Attending Physician: Janes Foster MD Allergies, Adverse Reactions, Alerts Substance Reaction Severity [...] (oldterm) 11/16/04 Given 1Admin Note: [facility] [id number] Note: given by simone doc by [id number] Note: done at [id number] [id number]: FLU [id number] Note: VIS GIVEN7 Admin Note: GIVEN IN CLINIC [id number] Note: [facility] [facility] of [id number] Note: Biomedical [facility] VIS [phone] [id number] Comment: WRONG [id number] Note: historical data Medications amoxicillin 500 mg oral capsule See Instructions, 4 capsule By Mouth One Hour Prior to Dental Procedure dentiist prescribes, 0 Refills, Maintenance, 01/06/17 13:14:51 Start Date: 01/06/17 Status: OrderedAspirin Enteric Coated 81 mg oral delayed release tablet See Instructions, # 90 tablet, Refills 3 Tot. Refills 3, TAKE 1 TABLET BY MOUTH EVERY DAY, [facility]/pharmacy #[id number] Start Date: 06/27/19 Status: OrderedBREAST PROSTHETIC BREAST PROSTHETIC, See Instructions, # 1 each, Refills 0, Tot. Refills 0, Maintenance, USE DIRECTED DX BREAST CANCER C50.919 FAX [phone], 12/17/16 10:11:47, Compound Start Date: 12/17/16 Status: OrderedDepakote ER 500 mg oral tablet, extended release 1 tablet = 500 mg, By Mouth, Daily, # 90 tablet, 1 Refills, Maintenance, 12/30/19 13:35:00 EST, ER Tablet, [facility]/pharmacy #[id number], 165, cm, 09/06/19 10:39:00 EDT, Height, 68.1, kg, 03/31/18 0:53:00 EDT, Dry Weight Start Date: 12/30/19 Status: OrderedFreestyle Lite Test Strips See Instructions, # 300 strip(s), Refills 3, Tot. Refills 3, Maintenance, TEST BS t.i.d. DX E11.9 SUPPLY, 12/22/19 12:38:00 EST, Compound, 165, cm, 09/06/19 10:39:00 EDT, Height, 68.1, kg, 03/31/18 0:53:00 EDT, Dry Weight Start Date: 12/22/19 Status: OrderedGlucophage 500 mg oral tablet 1 tablet = 500 mg, By Mouth, 2 times a day before breakfast and dinne, # 180 tablet, 3 Refills, Maintenance, 06/24/19 8:51:39 EDT Start Date: 06/24/19 Status: OrderedHearing test Hearing test, See Instructions, # 1 each, Refills 0, Tot. Refills 0, Maintenance, Please evaluate and treat patient for hearing loss., 05/02/14 10:11:59, Compound Start Date: 05/02/14 Status: Orderedhydrochlorothiazide 25 mg oral tablet 25 mg, 1, tablet, By Mouth, Daily, for 90 days, # 90 tablet, Refills 1, Tot. Refills 1, Hard Stop 05/19/20 14:40:00 EDT, 11/21/19 14:40:00 EST, Route to Pharmacy Electronically, [facility], 165, cm, 09/06/19 10:39:00 EDT, Height, 68... Start Date: 11/21/19 Stop Date: 05/19/20 Status: OrderedKlonoPIN 0.5 mg oral tablet 1 tablet = 0.5 mg, By Mouth, 2 times a day, PRN vertigo, # 30 tablet, 0 Refills, Maintenance, 02/14/20 12:08:00 EDT, Tablet, [facility]/pharmacy #[id number], 165, cm, 09/06/19 10:39:00 EDT, Height, 68.1, kg, 03/31/18 0:53:00 EDT, Dry Weight Start Date: 02/14/20 Status: OrderedLantus Solostar Pen 100 units/mL subcutaneous solution See Instructions, INJECT 17 UNITS SUBCUTANEOUSLY DAILY. ROTATE INJECTION SITES, # 6 Unknown, 0 Refills, Maintenance, [facility]ORE [id number], 165, cm, 09/06/19 10:39:00 EDT, Height, 68.1, kg, 03/31/18 0:53:00 EDT, Dry Weight Start Date: 02/02/20 Status: OrderedLevoxyl 0.1 mg oral tablet 1 tablet = 0.1 mg, By Mouth, Daily, # 90 tablet, 3 Refills, Maintenance, 07/11/19 8:48:39 EDT, Tablet Start Date: 07/11/19 Status: Orderedlisinopril 20 mg oral tablet 20 mg, 1, tablet, By Mouth, Daily, # 90 tablet, Refills 1, Tot. Refills 1, Maintenance, 11/17/19 14:21:00 EST, Route to Pharmacy Electronically, [facility], 165, cm, 09/06/19 10:39:00 EDT, Height, 68.1, kg, 03/31/18 0:53:00 EDT, Dry... Start Date: 11/17/19 Status: OrderedMASTECTOMY BRA MASTECTOMY BRA, See Instructions, # 3 each, Refills 1, Tot. Refills 1, Maintenance, USE DIRECTED DX BREAST CA C50.919 FAX [phone], 12/17/16 10:13:30, Compound Start Date: 12/17/16 Status: OrderedMetoprolol Succinate ER 25 mg oral tablet, extended release See Instructions, TAKE 1 TABLET BY MOUTH EVERY DAY, # 90 tablet, 1 Refills, Soft Stop, 11/24/19 15:36:00 EST, [facility], 165, cm, 09/06/19 10:39:00 EDT, Height, 68.1, kg, 03/31/18 0:53:00 EDT, Dry Weight Start Date: 11/24/19 Status: OrderedMisc Durable Medical Equipment MASTECTOMY BRA, See Instructions, # 3 each, Refills 0, Tot. Refills 0, Maintenance, USE DIRECTED DX BREAST CANCER, 09/17/16 15:02:49, Compound Start Date: 09/17/16 Status: OrderedNovoLOG FlexPen 100 units/mL subcutaneous solution See Instructions, sliding scale if BS 70-99= 3 units, 100-129=4 u, 130-159=5 u, 160-189=6 u, 190-219=7 u, 220-249=8 u, 250-279=9 u, 280-309=10 u, # 5 each, 5 Refills, Maintenance, 01/28/19 8:45:51 EDT,251-280=7 units,281-320=8 units, 321- 350= 9 units... Start Date: 01/28/19 Status: OrderedPen Eckert, 31 G x 5 mm BD Ultra Fine III See Instructions, # 360 each, Refills 3, Tot. 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, 07/11/19 9:18:36 EDT, 90 day supply, Compound Start Date: 07/11/19 Status: Orderedpravastatin 80 mg oral tablet See Instructions, TAKE 1 TABLET BY MOUTH EVERYDAY AT BEDTIME, # 90 tablet, 1 Refills, Soft Stop, 11/24/19 15:35:00 EST, [facility], 165, cm, 09/06/19 10:39:00 EDT, Height, 68.1, kg, 03/31/18 0:53:00 EDT, Dry Weight Start Date: 11/24/19 Status: OrderedVitamin B12 1000 mcg oral tablet 1 tablet = 1,000 mcg, By Mouth, Daily, # 90 tablet, 3 Refills, Maintenance, 03/21/19 11:17:30 EDT, Tablet Start Date: 03/21/19 Status: OrderedZithromax 250 mg oral tablet 1 pack/packet, By Mouth, Once, # 6 tablet, 0 Refills, Soft Stop, 02/14/20 12:08:00 EDT, Tablet, [facility]/pharmacy #[id number], 165, cm, 09/06/19 10:39:00 EDT, [...] with Active neuropathy(Confirmed) Vitamin D Deficiency(Confirmed) Active [facility] [id number] 200o nl, declines repeat Diagnosis Diagnosis Type Effective Dates Health Status Clinical In [facility] Service Meniere's Discharge 02/14/20 disease Diagnosis Social History Social History Type Response Smoking Status Never smoker; Other: Quit amelia schmitt age 25; entered on: 06/16/16 Sex
--- OUTSIDE RECORDS SUMMARY | 2022-11-24 21:19 | XMS_ITS | Continuity of Care Document ---
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) - 03/22/21 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) - 03/22/21 Hypercholesterolemia (Discharge Diagnosis) - 03/22/21 Hypothyroid (Discharge Diagnosis) - 03/22/21 HTN (hypertension) (Discharge Diagnosis) - 03/22/21 Attending Physician: Janes Foster MD Allergies, Adverse Reactions, Alerts Substance Reaction Severity Status NKA Active Immunizations Given and Recorded Vaccine Date Status Refusal Reason SARS-CoV-2 (COVID-19) mRNA BNT-162b2 vac 01/18/21 Given SARS-CoV-2 (COVID-19) mRNA BNT-162b2 vac 12/28/20 Given Influenza Virus Vaccine (oldterm)1 07/30/20 Recorded Influenza [...] Vaccine (oldterm) 11/16/04 Given 1Result Comment: local [id number] Note: [facility] in [id number] Note: given by simone doc by [id number] Note: done at [id number] [facility]: FLU [id number] Note: VIS [id number] Note: GIVEN IN CLINIC [id number] Note: userADgents of [id number] Note: [employer] VIS [phone] Comment: WRONG [id number] Note: historical data Medications amoxicillin 500 mg oral capsule See Instructions, 4 capsule By Mouth One Hour Prior to Dental Procedure dentiist prescribes, # 4 capsule, 5 Refills, Maintenance, 08/03/20 9:37:00 EDT, Capsule, [facility]/pharmacy #[id number], 165, cm, 03/13/20 16:53:00 EDT, Height [...] USE DIRECTED DX BREAST CANCER C50.919 FAX [phone], 12/17/16 10:11:47, Compound Start Date: 12/17/16 Status: OrderedDepakote ER 500 mg oral tablet, extended release 1 tablet = 500 mg, By Mouth, Daily, # 90 tablet, 1 Refills, Maintenance, 12/30/19 13:35:00 EST, ER Tablet, [facility]/pharmacy #[id number], 165, cm, 09/06/19 10:39:00 EDT, Height, 68.1, kg, 03/31/18 0:53:00 EDT, Dry Weight Start Date: 12/30/19 Status: OrderedFreestyle Lite Monitor See Instructions, # 1 each, Refills 0, Tot. Refills 0, Maintenance, Use as directed to check FBS tidE11.9 IDDM, 01/22/21 10:43:00 EST, Supply, 165, cm, 09/20/20 10:13:00 EST, Height Start Date: 01/22/21 Status: OrderedFreestyle Lite Test Strips See Instructions, # 250 each, Refills 3, Tot. Refills 3, Maintenance, TEST BS 3 times qday DX E11.9 IDDM 90 DAY SUPPLY, 01/02/21 10:51:00 EST, Compound, 165, cm, 09/20/20 10:13:00 EST, Height Start Date: 01/02/21 Status: OrderedGlucophage 500 mg oral tablet 1 tablet = 500 mg, By Mouth, 2 times a day before breakfast and dinne, # 180 tablet, 1 Refills, Maintenance, 10/26/20 9:06:00 EST, [facility], 165, cm, 09/20/20 10:13:00 EST, Height Start Date: 10/26/20 Status: OrderedHearing test Hearing test, See Instructions, # 1 each, Refills 0, Tot. Refills 0, Maintenance, Please evaluate and treat patient for hearing loss., 05/02/14 10:11:59, Compound Start Date: 05/02/14 Status: Orderedhydrochlorothiazide 25 mg oral tablet 1, tablet, By Mouth, Daily, # 90 tablet, Refills 0, Tot. Refills 0, Maintenance, 03/12/21 13:55:00 EDT, Route to Pharmacy Electronically, [facility], 165, cm, 09/20/20 10:13:00 EST, Height Start Date: 03/12/21 Status: OrderedKlonoPIN 0.5 mg oral tablet 1 tablet = 0.5 mg, By Mouth, 2 times a day, PRN vertigo, # 30 tablet, 0 Refills, Maintenance, 02/14/20 12:08:00 EDT, Tablet, [facility]/pharmacy #[id number], 165, cm, 09/06/19 10:39:00 EDT, Height, 68.1, kg, 03/31/18 0:53:00 EDT, Dry Weight Start Date: 02/14/20 Status: OrderedLantus Solostar Pen 100 units/mL subcutaneous solution See Instructions, INJECT 17 UNITS SUBCUTANEOUSLY DAILY. ROTATE INJECTION SITES, # 5 each, 3 Refills,03/13/20 17:21:00 EDT, [facility]/pharmacy #[id number], 165, cm, 03/13/20 16:53:00 EDT, Height, 68.1, kg, 03/31/18 0:53:00 EDT, Dry Weight Start Date: 03/13/20 Status: OrderedLevoxyl 0.1 mg oral tablet 1 tablet = 0.1 mg, By Mouth, Daily, # 90 tablet, 1 Refills, Maintenance, 03/19/21 15:59:00 EDT, Tablet, [facility], 165, cm, 09/20/20 10:13:00 EST, Height Start Date: 03/19/21 Status: Orderedlisinopril 20 mg oral tablet 20 mg, 1, tablet, By Mouth, Daily, # 90 tablet, Refills 1, Tot. Refills 1, Maintenance, 03/19/21 15:59:00 EDT, Route to Pharmacy Electronically, [facility], 165, cm, 09/20/20 10:13:00 EST, Height Start Date: 03/19/21 Status: OrderedMASTECTOMY BRA MASTECTOMY BRA, See Instructions, # 3 each, Refills 1, Tot. Refills 1, Maintenance, USE DIRECTED DX BREAST CA C50.919 FAX [phone], 12/17/16 10:13:30, Compound Start Date: 12/17/16 Status: OrderedMetoprolol Succinate ER 25 mg oral tablet, extended release See Instructions, TAKE 1 TABLET BY MOUTH EVERY DAY, # 90 tablet, 1 Refills, Soft Stop, 03/19/21 15:59:00 EDT, [facility], 165, cm, 09/20/20 10:13:00 EST, Height Start Date: 03/19/21 Status: OrderedMisc Durable Medical Equipment MASTECTOMY BRA, See Instructions, # 3 each, Refills 0, Tot. Refills 0, Maintenance, USE DIRECTED DX BREAST CANCER, 09/17/16 15:02:49, Compound Start Date: 09/17/16 Status: OrderedNovoLOG FlexPen 100 units/mL subcutaneous solution See Instructions, Inject SQ tid with meals sliding scale if BS 70-99= 7 units, 100-129=8 u, 130-159=9 u, 160-189=10 u, 190-219=11 u, 220-249=12 u, 250-279=13 u,, 280-309=14 u, 310-350: 16 u & call (Max dose 16 units tid)pcp office, # 15 each, 3 Refil... Start Date: 01/23/21 Status: OrderedPen Colgate, 31 G x 5 mm BD Ultra Fine III See Instructions, # 360 each, Refills 3, Tot. 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, 07/11/19 9:18:36 EDT, 90 day supply, Compound Start Date: 07/11/19 Status: Orderedpravastatin 80 mg oral tablet See Instructions, TAKE 1 TABLET BY MOUTH EVERYDAY AT BEDTIME, # 90 tablet, 1 Refills, Soft Stop, 01/24/21 10:05:00 EST, [facility], 165, cm, 09/20/20 10:13:00 EST, Height Start Date: 01/24/21 Status: OrderedVitamin B12 1000 mcg oral tablet 1 tablet = 1,000 mcg, By Mouth, Daily, # 90 tablet, 3 Refills, Maintenance, 03/21/19 11:17:30 EDT, Tablet Start Date: 03/21/19 Status: Ordered Problem List Condition Effective Dates [...] with Active neuropathy(Confirmed) Vitamin D Deficiency(Confirmed) Active [facility] [id number] 200o nl, declines repeat Diagnosis Diagnosis Type Effective Health Clinical Informant Dates Status Service Anemia, pernicious Discharge 03/22/21 Diagnosis Current use of insulin Discharge 03/22/21 Diagnosis Seizure after head injury Discharge 03/22/21 Diagnosis Type 2 diabetes with Discharge 03/22/21 nephropathy Diagnosis Type 2 diabetes, Discharge 03/22/21 controlled, with Diagnosis neuropathy Chronic osteoarthritis Discharge 03/22/21 Diagnosis Hypercholesterolemia Discharge 03/22/21 Diagnosis Hypothyroid Discharge 03/22/21 Diagnosis HTN (hypertension) Discharge 03/22/21 Diagnosis Vital Signs Most recent to oldest [Reference Range]: 1 Height 165 cm (03/22/21 10:38 AM) Social History Social History Type Response Smoking Status Never smoker; Other: Quit sm oking age 25; entered on: 06/16/16 Sex
--- OUTSIDE RECORDS SUMMARY | 2022-11-24 21:19 | XMS_ITS | Continuity of Care Document ---
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) - 10/21/22 Type 2 diabetes, controlled, with neuropathy (Discharge Diagnosis) - 10/21/22 Attending Physician: Janes Foster MD Allergies, Adverse Reactions, Alerts No Known Allergies Immunizations Given and Recorded Vaccine Date Status Refusal Reason [id number] 12y+ bivalent booster vax 09/16/22 Recorde d SARS-CoV-2 mRNA (ygozzpi-[id number]) vax 04/03/22 Recorde d SARS-CoV-2 (COVID-19) mRNA [...] Pneumococcal Vaccine (oldterm) 11/16/04 Given 1Result Comment: [facility] Booster #3 [id number] Comment: [id number] Note: done [facility] DFK0Koctr [facility] FLU OSEJKN7Bsyqs Note: VIS NYJNX6Jlucz Note: GIVEN IN CLINIC EYQL4Zmpxii Comment: local srtnodub5Gdqlh Note: [facility] enfqgs02Xobop Note: given by simone doc by [id number] Note: [employer] [facility] Jmbcaj44Dhins Note: [employer] VIS [id number] Comment: WRONG MPTQY82Cpaxh Note: historical data Medications amoxicillin 500 mg oral capsule See Instructions, 4 capsule By Mouth One Hour Prior to Dental Procedure dentiist prescribes, # 4 capsule, 5 Refills, Maintenance, 06/30/22 15:13:00 EDT, Capsule, [facility]/pharmacy #[id number], 165, cm, 10/29/21 10:57:00 EST, [...] USE DIRECTED DX BREAST CANCER C50.919 FAX [phone], 12/17/16 10:11:47, Compound Start Date: 12/17/16 Status: OrderedDiabetic Shoes Diabetic Shoes, See Instructions, # 2 each, Refills 0, Tot. Refills 0, Maintenance, Dx: Diabetic type 2 with Neuropathy WT: 166lbs HT: 5'5 , 10/21/22 13:46:00 EST, Supply Start Date: 10/21/22 Status: OrderedFreestyle Lite Monitor See Instructions, # [...] Maintenance, Use to test BS tid E11.9 IDDM,10/24/22 13:57:00 EST, 3 month supply, Supply, 165, cm, 10/21/22 11:45:00 EST, Height Start Date: 10/24/22 Status: OrderedHearing test Hearing test, See Instructions, # 1 each, Refills 0, Tot. Refills 0, Maintenance, Please evaluate and treat patient for hearing loss., 05/02/14 10:11:59, Compound Start Date: 05/02/14 Status: Orderedhydrochlorothiazide 25 mg oral tablet See Instructions, TAKE 1 TABLET EVERY DAY, # 90 tablet, Refills 3, Tot. Refills 3, 10/21/22 11:58:00EST, Instructions Replace Required Details, Route to Pharmacy Electronically, [facility], 165, cm, 10/21/22 11:45:00 EST, Height Start Date: 10/21/22 Status: OrderedLantus Solostar Pen 100 units/mL subcutaneous solution See Instructions, INJECT 17 UNITS SUBCUTANEOUSLY DAILY. ROTATE INJECTION SITES, # 15 Unknown, 11 Refills, Maintenance, 10/24/22 13:56:00 EST, [facility]/pharmacy #[id number], 165, cm, 10/21/22 11:45:00 EST, Height Start Date: 10/24/22 Status: Orderedlevothyroxine 0.1 mg oral tablet 1 tablet, By Mouth, Daily, # 90 tablet, 3 Refills, 10/21/22 11:58:00 EST, [facility], 165, cm, 10/21/22 11:45:00 EST, Height Start Date: 10/21/22 Status: Orderedlisinopril 20 mg oral tablet 1, tablet, By Mouth, Daily, # 90 tablet, Refills 3, Tot. Refills 3, 10/21/22 11:58:00 EST, Route to Pharmacy Electronically, [facility], 165, cm, 10/21/22 11:45:00 EST, Height Start Date: 10/21/22 Status: OrderedMASTECTOMY BRA MASTECTOMY BRA, See Instructions, # 3 each, Refills 1, Tot. Refills 1, Maintenance, USE DIRECTED DX BREAST CA C50.919 FAX [phone], 12/17/16 10:13:30, Compound Start Date: 12/17/16 Status: OrderedmetFORMIN 500 mg oral tablet 1 tablet = 500 mg, By Mouth, 2 times a day, # 180 tablet, 3 Refills, Maintenance, 10/21/22 11:58:00 EST, Tablet, [facility], Partial fill upon patient request if the prescriptionis for a schedule II opioid drug., 165, cm, 10/21... Start Date: 10/21/22 Status: OrderedMetoprolol Succinate ER 25 mg oral tablet, extended release 1 tablet, By Mouth, Daily, # 90 tablet, 3 Refills, 10/21/22 11:58:00 EST, [facility], 165, cm, 10/21/22 11:45:00 EST, Height Start Date: 10/21/22 Status: OrderedMisc Durable Medical Equipment MASTECTOMY BRA, [...] & CALL PCP OFFICE, # 45 Unknown, 11 Refills, 10/24/22 13:56:00 EST, [facility]/pharmacy #[id number]... Start Date: 10/24/22 Status: OrderedPen Damon, 31 G x 5 mm BD Ultra Fine III See Instructions, # 360 each, Refills 3, Tot. 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, 07/11/19 9:18:36 EDT, 90 day supply, Compound Start Date: 07/11/19 Status: Orderedpravastatin 80 mg oral tablet 1 tablet, By Mouth, Daily at bedtime, # 90 tablet, 3 Refills, 10/21/22 11:58:00 EST, [facility], 165, cm, 10/21/22 11:45:00 EST, Height Start Date: 10/21/22 Status: OrderedShoe Inserts Shoe Inserts, See Instructions, # 6 each, Refills 0, Tot. Refills 0, Maintenance, Dx: Diabetic type 2 with Neuropathy WT: 166lbs HT: 5'5 , 08/19/22 11:38:00 EDT, Supply Start Date: 08/19/22 Status: OrderedVitamin B12 1000 mcg oral tablet 1 tablet = 1,000 mcg, By Mouth, Daily, # 90 tablet, 3 Refills, Maintenance, 10/21/22 11:58:00 EST, Tablet, [facility], 165, cm, 10/21/22 11:45:00 EST, Height Start Date: 10/21/22 Status: Ordered Problem List Condition Confirmation Course Effective Status Health Informa nt Dates Status Chronic kidney disease Confirmed Active (CKD), stage I Chronic osteoarthritis Confirmed Active Colonoscopy1 Confirmed Active Coronary artery disease Confirmed Active Current use of insulin Confirmed Active Hearing loss Confirmed Active History of breast cancer Confirmed Active History of myocardial Confirmed Active infarction2 Hx of subdural hematoma Confirmed Active HTN (hypertension) Confirmed Active Hypercholesterolemia Confirmed Active Hypothyroid Confirmed Active Meniere's disease Confirmed Active Neuropathy in diabetes Confirmed Active Anemia, 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 Proteinuria Confirmed Active Recurrent UTI (urinary Confirmed Active tract infection) Status post THR (total Confirmed Active hip replacement) 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 Type 2 diabetes, Confirmed Active controlled, with neuropathy Vitamin D Deficiency Confirmed Active 1colo 200o nl, declines [id number] 2015 Diagnosis Diagnosis Type Effective Dates Health Clinical Infor [facility] Status Service Current use of Discharge 10/21/22 insulin Diagnosis Seizure after head Discharge 10/21/22 injury Diagnosis Type 2 diabetes Discharge 10/21/22 with nephropathy Diagnosis Type 2 diabetes, Discharge 10/21/22 controlled, with Diagnosis neuropathy Vital Signs Most recent to oldest [Reference Range]: 1 2 Height 165 cm 165 cm (10/21/22 11:45 AM) (10/21/22 11:33 AM) Oxygen Saturation [94-100 %] 98 % (10/21/22 11:33 AM) Pulse Rate [55-90 bpm] 69 bpm (10/21/22 11:33 AM) Blood Pressure [90-138/55-84 mm Hg] 158/61 mm Hg 162/ 66 mm Hg *H* *H* (10/21/22 11:45 AM) (10/21/22 11:33 AM) Mode of Delivery (Oxygen) Room air (10/21/22 11:33 AM) Blood pressure sites Arm, left Arm, left (10/21/22 11:45 AM) (10/21/22 11:33 AM) Weight Obtained Via Standing scale (10/21/22 11:33 AM) Social History Social History Type Response Smoking Status Never smoker; Other: Quit sm oking age 25; entered on: 06/16/16 Sex Note Tennille Corrales: PERFORM, SIGN, VERIFY Event Display: Patient Education/Instruction Authored Date: [id number] [facility] *NATALIE Brownlee Clinical Summary Name ARGENIS JOHNSON Age 86 Years 1935 PCP Kristin MAGALLANES, Janes Edwards PCP Visit Date 10/21/2022 11:30:00 Additional Instructions: Scheduled Appointments?? Future Appointments ?No Future Appointments Scheduled Follow-Up Instructions ?? With: Address: When: Kristin MAGALLANES, Janes Edwards In 6 months Diagnosis watermaster (current) use of insulin; Hypothyroidism, unspecified; Essential (primary) hypertension; Post traumatic seizures; Type 2 diabetes mellitus with diabetic neuropathy, unspecified; Pure hypercholesterolemia; Vitamin B12 deficiency anemia due to intrinsic factor deficiency; Type 2 diabetes mellitus with diabetic nephropathy Medications: Please continue your medications until treatment is completed or stopped by your provider. Discuss any questions related to medications with your provider. Medications to Continue Taking That Have Changed [facility], [address] [place] [address], [place] [id number], [phone] - Metformin (metFORMIN 500 mg oral tablet) 1 tab(s) Oral twice a day. Refills: 3. Next Dose: Medications to Continue with No Changes [facility], [address], [place] [id number], [phone] Cyanocobalamin (Vitamin B12 1000 mcg oral tablet) 1 tab(s) Oral Daily. Refills: 3. Next Dose: Hydrochlorothiazide (hydrochlorothiazide 25 mg oral tablet) TAKE 1 TABLET EVERY DAY. Refills: 3. Next Dose: Insulin Aspart (NovoLOG FlexPen 100 units/mL injectable solution) SLIDING SCALE IF BS 70-99= 9 UNITS, 100-129=10 U, 130-159=11 U, 160-189=12 U, 190-219=13 U, 220-249=14 U, 250-279=15 U,, 280-309=16 U, 310-350: 17 U & CALL PCP OFFICE. Refills: 11. Next Dose: Insulin Glargine (Lantus Solostar Pen 100 units/mL subcutaneous solution) INJECT 17 UNITS SUBCUTANEOUSLY DAILY. ROTATE INJECTION SITES. Refills: 11. Next Dose: Levothyroxine (levothyroxine 0.1 mg oral tablet) 1 tab(s) Oral Daily. Refills: 3. Next Dose: Lisinopril (lisinopril 20 mg oral tablet) 1 tab(s) Oral Daily. Refills: 3. Next Dose: Metoprolol (Metoprolol Succinate ER 25 mg oral tablet, extended release) 1 tab(s) Oral Daily. Refills: 3. Next Dose: Pravastatin (pravastatin 80 mg oral tablet) 1 tab(s) Oral Daily at Bedtime. Refills: 3. Next Dose: These medications were not printed or sent to your pharmacy Amoxicillin (amoxicillin 500 mg oral capsule) 4 capsule By Mouth One Hour Prior to Dental Procedure dentiist prescribes. Refills: 5. Next Dose: Aspirin (Aspirin Enteric Coated 81 mg oral delayed release tablet) TAKE 1 TABLET BY MOUTH EVERY DAY.Refills: 3. Next Dose: Durable Medical Equipment (BREAST PROSTHETIC) USE DIRECTED DX BREAST CANCER C50.919 FAX [phone]. Refills: 0. Next Dose: Durable Medical Equipment (Diabetic Shoes) Dx: Diabetic type 2 with Neuropathy WT: 166lbs HT: 5'5 . Refills: 0. Next Dose: Durable Medical Equipment (Freestyle Lite Monitor) Use as directed to check FBS tid E11.9 IDDM. Refills: 0. Next Dose: Durable Medical Equipment (Freestyle Lite Test Strips) Use to test BS tid E11.9 IDDM. Refills: 3. Next Dose: Durable Medical Equipment (MASTECTOMY BRA) USE DIRECTED DX BREAST CA C50.919 FAX [phone]. Refills: 1. Next Dose: Durable Medical Equipment (Misc Durable Medical Equipment) USE DIRECTED DX BREAST CANCER. Refills: 0. Next Dose: Durable Medical Equipment (Pen Damon, 31 G x 5 mm BD Ultra Fine III) Use to administer insulin 4x/day for IDDM E11.9. Refills: 3. Next Dose: Durable Medical Equipment (Shoe Inserts) Dx: Diabetic type 2 with Neuropathy WT: 166lbs HT: 5'5 . Refills: 0. Next Dose: Miscellaneous Rx (FREESTYLE LITE TEST STRIP) TEST BLOOD SUGAR 3 TIMES DAILY. Refills: 5. Next Dose: Miscellaneous Rx (Hearing test) Please evaluate and treat patient for hearing loss.. Refills: 0. Next Dose: No Longer Take the Following Medications Divalproex Sodium (Depakote ER 500 mg oral tablet, extended release) 1 tab(s) Oral Daily. Refills: 1. Allergy Info:?? NKA Medications Given This Visit Future Orders ?Comprehensive Metabolic Panel? Order Date:04/21/23?- Complete by?05/19/23 ?Direct LDL? Order Date:04/21/23?- Complete by?05/19/23 ?Microalbumin Urine? Order Date:04/21/23?- Complete by?05/19/23 ?Hemoglobin A1C (Monitoring)? Order Date:04/21/23?- Complete by?05/19/23 ?Thyroid Panel? Order Date:04/21/23?- Complete by?05/19/23 ?CBC? Order Date:04/21/23?- Complete by?05/19/23 Vital Signs Height 165 cm Weight BMI Blood Pressure 158 mm Hg/61 mm Hg Temperature Pulse Rate 69 bpm Respiratory Rate 02 Sat Mode of Delivery 98 %/Room air You can now view a summary of your hospital visit from the comfort of your home through a free online portal called [employer]. [employer] is a website that allows you to securely view yourmedical information including discharge summary, medications and follow-up visits. ??You can also send a secure electronic message to your doctor???s office to request appointments, renew medications or just ask a question. You can enroll at [email or web address] or register during your next office visit. Disclaimer:?? The information provided is of a general nature and is intended to be used in conjunction with the recommendations and advice of your health care practitioner. ??Every effort has been made to ensure that the information provided is accurate and complete at the time it is provided to you however, as your needs change, or, as new ??information becomes available, different or additional instructions may be required. If you have questions, please consult with your primary care provider or pharmacist, as appropriate.??This information is not intended to serve as substitution for assessment and evaluation by a qualified health care provider. If you do not have a primary care provider, you may find a [facility] provider by calling [facility] [employer] at [phone]. For information about the plan of care including goals and instructions for your diagnosis, please see the patient education orders section of this document. Patient Education Materials?? The content of this educational material or handout may have been modified, supplemented, or adaptedfrom its original content and format to support your individualized medical care. Patient Care team information Care Team PersonnelName: Kristin MAGALLANES, Janes Edwards Position: [facility] Primary Care Physician Member Role: PCP Address: Address: [address] [place], [place] [id number]- Name: Javon MORGAN, Zamzam Position: [facility] RN Member Role: Primary Care Nurse Name: Juan Manuel Hernandez Position: [facility] Outreach Member Role: [employer] Consulting Physician Name: Kalpesh MORGAN, Ena Position: [facility] Hospital Property Loss Insurance Claim Adjuster Member Role: Primary Care Nurse Care Team Related PersonsName: YUNIOR JOHNSON Name: RAFAEL JOHNSON Address: [place] [address] Name: ZOYA SIN Address: home [address] [place] [id number]
--- OUTSIDE RECORDS SUMMARY | 2022-11-24 21:19 | XMS_ITS | Continuity of Care Document ---
:1935 Author Organization [facility] Adult Address [address] [place] [address]- Care Team Providers Name Role Phone Kristin MAGALLANES, Janes Edwards Primary Care Physician Encounter [facility] Date(s): 08/26/20 - 09/25/20 [facility] [address] [place] [address]- Allergies, Adverse Reactions, Alerts Substance Reaction Severity [...] Vaccine (oldterm) 11/16/04 Given 1Result Comment: local yzwtfsmo9Fjote Note: [facility] yeuxhn8Rkukp Note: given by simone torres by [id number] Note: done at [facility]6Ppfsf [facility]: FLU AKLGYL3Iwyah Note: VIS LWATB8Rlypa Note: GIVEN IN CLINIC OEBK4Jrrpn Note: [employer] [facility]Nzcyfn47Eqbrn Note: Biomedical [employer] [facility] VIS [phone] zqguw05Flkard Comment: WRONG ODEBJ74Xbuhd Note: historical data Medications amoxicillin 500 mg oral capsule See Instructions, 4 capsule By Mouth One Hour Prior to Dental Procedure dentiist prescribes, # 4 capsule, 5 Refills, Maintenance, 08/03/20 9:37:00 EDT, Capsule, [facility]/pharmacy #[id number], 165, cm, 03/13/20 16:53:00 EDT, Height Start Date: 08/03/20 Status: OrderedAspirin Enteric Coated 81 mg oral delayed release tablet See Instructions, # 90 tablet, Refills 3 Tot. Refills 3, TAKE 1 TABLET BY MOUTH EVERY DAY, [facility]/pharmacy #[id number] Start Date: 06/27/19 Status: OrderedBREAST PROSTHETIC BREAST PROSTHETIC, See Instructions, # 1 each, Refills 0, Tot. Refills 0, Maintenance, USE DIRECTED DX BREAST CANCER C50.919 FAX [phone], 12/17/16 10:11:47, Compound Start Date: 12/17/16 Status: OrderedDepakote ER 500 mg oral tablet, extended release 1 tablet = 500 mg, By Mouth, Daily, # 90 tablet, 1 Refills, Maintenance, 12/30/19 13:35:00 EST, ER Tablet, [facility]/pharmacy #[id number], 165, cm, 09/06/19 [...] tablet, 1 Refills, Maintenance, 06/05/20 12:43:00 EDT, [facility], 165, cm, 03/13/20 16:53:00 [...] 08/16/20 12:04:00 EDT, Route to Pharmacy Electronically, [facility], 165, cm, 03/13/20 16:53:00 EDT, Height Start Date: 08/16/20 Status: OrderedKlonoPIN 0.5 mg oral tablet 1 tablet = 0.5 mg, By Mouth, 2 times a day, PRN vertigo, # 30 tablet, 0 Refills, Maintenance, 02/14/20 12:08:00 EDT, Tablet, [facility]/pharmacy #[id number], 165, cm, 09/06/19 10:39:00 EDT, Height, 68.1, kg, 03/31/18 0:53:00 EDT, Dry Weight Start Date: 02/14/20 Status: OrderedLantus Solostar Pen 100 units/mL subcutaneous solution See Instructions, INJECT 17 UNITS SUBCUTANEOUSLY DAILY. ROTATE INJECTION SITES, # 5 each, 3 Refills,03/13/20 17:21:00 EDT, [facility]/pharmacy #[id number], 165, cm, 03/13/20 16:53:00 EDT, Height, 68.1, kg, 03/31/18 0:53:00 EDT, Dry Weight Start Date: 03/13/20 Status: OrderedLevoxyl 0.1 mg oral tablet 1 tablet = 0.1 mg, By Mouth, Daily, # 90 tablet, 0 Refills, Maintenance, 08/26/20 7:47:00 EDT, Tablet, [facility], 165, cm, 04/28/20 16:53:00 EDT, Height Start Date: 08/26/20 Status: Orderedlisinopril 20 mg oral tablet 20 mg, 1, tablet, By Mouth, Daily, # 90 tablet, Refills 0, Tot. Refills 0, Maintenance, 08/26/20 7:47:00 EDT, Route to Pharmacy Electronically, [facility], 165, cm, 03/13/20 16:53:00EDT, Height, Dry Weight Start Date: 08/26/20 Status: OrderedMASTECTOMY BRA MASTECTOMY BRA, See Instructions, # 3 each, Refills 1, Tot. Refills 1, Maintenance, USE DIRECTED DX BREAST CA C50.919 FAX [phone], 12/17/16 10:13:30, Compound Start Date: 12/17/16 Status: OrderedMetoprolol Succinate ER 25 mg oral tablet, extended release See Instructions, TAKE 1 TABLET BY MOUTH EVERY DAY, # 90 tablet, 0 Refills, Soft Stop, 08/26/20 7:47:00 EDT, [facility], 165, cm, 03/13/20 16:53:00 [...] mL, 3 Refills, Maintenance, 05/22/20 14:15:00 EDT, [facility]... Start Date: 05/22/20 Status: OrderedPen Suches, 31 G x 5 mm BD Ultra [...] with Active neuropathy(Confirmed) Vitamin D Deficiency(Confirmed) Active [facility] [id number] 200o nl, declines repeat Social History Social History Type Response Smoking Status Never smoker; Other: Quit sm oking age 25; entered on: 06/16/16 Sex
--- OUTSIDE RECORDS SUMMARY | 2022-11-24 21:19 | XMS_ITS | Continuity of Care Document ---
:1935 Author Organization [facility] Adult Address [address] [place] [address]- Care Team Providers Name Role Phone Kristin MAGALLANES, Janes Edwards Primary Care Physician Encounter [facility] Date(s): 03/12/21 - 04/11/21 [facility] [address] [place] [address]- Allergies, Adverse Reactions, Alerts Substance Reaction Severity [...] Vaccine (oldterm) 11/16/04 Given 1Result Comment: local potqfgtv3Mpdho Note: [facility] in shpakz2Glrzs Note: given by simone torres by ioqfuq5Tbewr Note: done at OUI5Vegss [facility]: [facility]: FLU WZCTEN5Lvgiu Note: VIS LGLTK1Mwgcs Note: GIVEN IN CLINIC XQMI8Ohapi Note: Biomedical mPortal of Koknmb59Lqcxh Note: [employer] [facility] VIS [phone] ylqal34Hbjgro Comment: WRONG [id number] Note: historical data Medications amoxicillin 500 mg oral capsule See Instructions, 4 capsule By Mouth One Hour Prior to Dental Procedure dentiist prescribes, # 4 capsule, 5 Refills, Maintenance, 08/03/20 9:37:00 EDT, Capsule, [facility]/pharmacy #[id number], 165, cm, 03/13/20 16:53:00 EDT, [...] USE DIRECTED DX BREAST CANCER C50.919 FAX [phone], 12/17/16 10:11:47, Compound Start Date: 12/17/16 Status: [...] tablet, 1 Refills, Maintenance, 10/26/20 9:06:00 EST, [facility], 165, cm, 09/20/20 10:13:00 [...] 03/12/21 13:55:00 EDT, Route to Pharmacy Electronically, [facility], 165, cm, 09/20/20 10:13:00 EST, Height Start Date: 03/12/21 Status: OrderedKlonoPIN 0.5 mg oral tablet 1 tablet = 0.5 mg, By Mouth, 2 times a day, PRN vertigo, # 30 tablet, 0 Refills, Maintenance, 02/14/20 12:08:00 EDT, Tablet, [facility]/pharmacy #[id number], 165, cm, 09/06/19 10:39:00 EDT, Height, 68.1, kg, 03/31/18 0:53:00 EDT, Dry Weight Start Date: 02/14/20 Status: OrderedLantus Solostar Pen 100 units/mL subcutaneous solution See Instructions, INJECT 17 UNITS SUBCUTANEOUSLY DAILY. ROTATE INJECTION SITES, # 5 each, 3 Refills,03/13/20 17:21:00 EDT, [facility]/pharmacy #[id number], 165, cm, 03/13/20 16:53:00 EDT, Height, 68.1, kg, 03/31/18 0:53:00 EDT, Dry Weight Start Date: 03/13/20 Status: OrderedLevoxyl 0.1 mg oral tablet 1 tablet = 0.1 mg, By Mouth, Daily, # 90 tablet, 1 Refills, Maintenance, 03/19/21 15:59:00 EDT, Tablet, [facility], 165, cm, 09/20/20 10:13:00 EST, Height Start Date: 03/19/21 Status: Orderedlisinopril 20 mg oral tablet 20 mg, 1, tablet, By Mouth, Daily, # 90 tablet, Refills 1, Tot. Refills 1, Maintenance, 03/19/21 15:59:00 EDT, [facility], 165, cm, 09/20/20 10:13:00 EST, Height Start Date: 03/19/21 Status: OrderedMASTECTOMY BRA MASTECTOMY BRA, See Instructions, # 3 each, Refills 1, Tot. Refills 1, Maintenance, USE DIRECTED DX BREAST CA C50.919 FAX [phone], 12/17/16 10:13:30, Compound Start Date: 12/17/16 Status: OrderedMetoprolol Succinate ER 25 mg oral tablet, extended release See Instructions, TAKE 1 TABLET BY MOUTH EVERY DAY, # 90 tablet, 1 Refills, Soft Stop, 03/19/21 15:59:00 EDT, [facility], 165, cm, 09/20/20 10:13:00 [...] 3 Refil... Start Date: 01/23/21 Status: OrderedPen Nellis, 31 G x 5 mm BD Ultra [...] 1 Refills, Soft Stop, 01/24/21 10:05:00 EST, [facility], 165, cm, 09/20/20 10:13:00 [...] Active neuropathy(Confirmed) Vitamin D Deficiency(Confirmed) Active [facility] [id number] 200o nl, declines repeat Social History Social History Type Response Smoking Status Never smoker; Other: Quit sm oking age 25; entered on: 06/16/16 Sex
--- OUTSIDE RECORDS SUMMARY | 2022-11-24 21:19 | XMS_ITS | Continuity of Care Document ---
:1935 Author Organization [facility] Address [address] [place] [address]- Care Team Providers Name Role Phone Janes Foster MD Primary Care Physician [place] [facility] [place]): [place] 03/20/20 [facility] [address] [place] [address]- [facility] Encounter Diagnosis Meniere's disease (Discharge Diagnosis) - 03/13/20 Attending Physician: Janes Foster MD Allergies, Adverse [...] (oldterm) 11/16/04 Given 1Admin Note[facility] [id number] Note: given by simone doc by [id number] Note: done at SCV2Mstpd [facility]: FLU [id number] Note: VIS GIVEN7 Admin Note: GIVEN IN CLINIC [id number] Note: Biomedical Jason of [id number] Note: Biomedical Jason [facility] VIS [phone] [id number] Comment: WRONG [id number] Note: historical data Medications amoxicillin 500 mg oral capsule See Instructions, 4 capsule By Mouth One Hour Prior to Dental Procedure dentiist prescribes, 0 Refills, Maintenance, 01/06/17 13:14:51 Start Date: 01/06/17 Status: OrderedAspirin Enteric Coated 81 mg oral delayed release tablet See Instructions, # 90 tablet, Refills 3 Tot. Refills 3, TAKE 1 TABLET BY MOUTH EVERY DAY, [facility]/pharmacy #[id number] Start Date: 06/27/19 Status: OrderedBREAST PROSTHETIC BREAST PROSTHETIC, See Instructions, # 1 each, Refills 0, Tot. Refills 0, Maintenance, USE DIRECTED DX BREAST CANCER C50.919 FAX [phone], 12/17/16 10:11:47, Compound Start Date: 12/17/16 Status: OrderedDepakote ER 500 mg oral tablet, extended release 1 tablet = 500 mg, By Mouth, Daily, # 90 tablet, 1 Refills, Maintenance, 12/30/19 13:35:00 EST, ER Tablet, [facility]/pharmacy #[id number], 165, cm, 09/06/19 10:39:00 [...] 11/21/19 14:40:00 EST, Route to Pharmacy Electronically, [facility], 165, cm, 09/06/19 10:39:00 EDT, Height, 68... Start Date: 11/21/19 Stop Date: 05/19/20 Status: OrderedKlonoPIN 0.5 mg oral tablet 1 tablet = 0.5 mg, By Mouth, 2 times a day, PRN vertigo, # 30 tablet, 0 Refills, Maintenance, 02/14/20 12:08:00 EDT, Tablet, [facility]/pharmacy #[id number], 165, cm, 09/06/19 10:39:00 EDT, Height, 68.1, kg, 03/31/18 0:53:00 EDT, Dry Weight Start Date: 02/14/20 Status: OrderedLantus Solostar Pen 100 units/mL subcutaneous solution See Instructions, INJECT 17 UNITS SUBCUTANEOUSLY DAILY. ROTATE INJECTION SITES, # 5 each, 3 Refills,03/13/20 17:21:00 EDT, [facility]/pharmacy #[id number], 165, cm, 03/13/20 16:53:00 [...] 11/17/19 14:21:00 EST, Route to Pharmacy Electronically, [facility], 165, cm, 09/06/19 10:39:00 EDT, Height, 68.1, kg, 03/31/18 0:53:00 EDT, Dry... Start Date: 11/17/19 Status: OrderedMASTECTOMY BRA MASTECTOMY BRA, See Instructions, # 3 each, Refills 1, Tot. Refills 1, Maintenance, USE DIRECTED DX BREAST CA C50.919 FAX [phone], 12/17/16 10:13:30, Compound Start Date: 12/17/16 Status: OrderedMetoprolol Succinate ER 25 mg oral tablet, extended release See Instructions, TAKE 1 TABLET BY MOUTH EVERY DAY, # 90 tablet, 1 Refills, Soft Stop, 11/24/19 15:36:00 EST, [facility], 165, cm, 09/06/19 10:39:00 [...] 9 units... Start Date: 01/28/19 Status: OrderedPen [place], 31 G x 5 mm BD Ultra [...] Refills, Soft Stop, 02/14/20 12:08:00 EDT, Tablet, [facility]/pharmacy #[id number], 165, cm, 09/06/19 10:39:00 [...] with Active neuropathy(Confirmed) Vitamin D Deficiency(Confirmed) Active [facility] [id number] 200o nl, declines repeat Diagnosis Diagnosis Type Effective Dates Health Status Clinical In formant Service Meniere's Discharge 03/13/20 disease Diagnosis Vital Signs Most recent to oldest [Reference Range]: 1 Height 165 cm (03/13/20 4:53 PM) Blood Pressure [90-138/55-84 mm Hg] 100/88 mm Hg (03/13/20 4:53 PM) Respiratory Rate [16-30 br/min] 12 br/min *L* (03/13/20 4:53 PM) Temperature [96.8-100.4 DegF] 97.5 DegF (03/13/20 4:53 PM) Mode of Delivery (Oxygen) Room air (03/13/20 4:53 PM) Blood pressure sites Arm, left (03/13/20 4:53 PM) Temperature Route Temporal (03/13/20 4:53 PM) Weight Obtained Via 97.5 (03/13/20 4:53 PM) Social History Social History Type Response Smoking Status Never smoker; Other: Quit amelia schmitt age 25; entered on: 06/16/16 Sex
--- OUTSIDE RECORDS SUMMARY | 2022-11-24 21:19 | XMS_ITS | Continuity of Care Document ---
:1935 Author Organization [facility] Address [address] [place] [address]- Care Team Providers Name Role Phone Janes Foster MD Primary Care Physician Encounter [facility] Date(s): 01/20/20 - 01/30/20 [facility] [address] [place] [address]- [facility] Attending Physician: Kate Sr Admitting Physician: AdmtrKate Referring Physician: Admtr, Kate Allergies, Adverse Reactions, Alerts Substance Reaction Severity [...] (oldterm) 11/16/04 Given 1Admin Note: [facility] [id number] Note: given by simone doc by [id number] Note: done at MNO1Mfnca Note: [facility] [id number] Note: FLU [id number] Note: VIS GIVEN7 Admin Note: GIVEN IN CLINIC [id number] Note: Biomedical Jason of Bzcnbe5Osjrl Note: Biomedical Jason of [facility] VIS [phone] [id number] Comment: WRONG [id number] Note: historical data Medications amoxicillin 500 mg oral capsule See Instructions, 4 capsule By Mouth One Hour Prior to Dental Procedure dentiist prescribes, 0 Refills, Maintenance, 01/06/17 13:14:51 Start Date: 01/06/17 Status: OrderedAspirin Enteric Coated 81 mg oral delayed release tablet See Instructions, # 90 tablet, Refills 3 Tot. Refills 3, TAKE 1 TABLET BY MOUTH EVERY DAY, [facility]/pharmacy #[id number] Start Date: 06/27/19 Status: OrderedBREAST PROSTHETIC BREAST PROSTHETIC, See Instructions, # 1 each, Refills 0, Tot. Refills 0, Maintenance, USE DIRECTED DX BREAST CANCER C50.919 FAX [phone], 12/17/16 10:11:47, Compound Start Date: 12/17/16 Status: OrderedDepakote ER 500 mg oral tablet, extended release 1 tablet = 500 mg, By Mouth, Daily, # 90 tablet, 1 Refills, Maintenance, 12/30/19 13:35:00 EST, ER Tablet, [facility]/pharmacy #[id number], 165, cm, 09/06/19 10:39:00 [...] 11/21/19 14:40:00 EST, Route to Pharmacy Electronically, [facility], 165, cm, 09/06/19 10:39:00 EDT, Height, 68... Start Date: 11/21/19 Stop Date: 05/19/20 Status: OrderedLantus Solostar Pen 100 units/mL subcutaneous solution See Instructions, Inject 17 units SQ daily rotate injection sites, # 6 each, 3 Refills, Maintenance,12/29/18 8:09:05 EST, [facility]/pharmacy #[id number] Start Date: 12/29/18 Status: OrderedLevoxyl 0.1 mg oral tablet 1 tablet = 0.1 mg, By Mouth, Daily, # 90 tablet, 3 Refills, Maintenance, 07/11/19 8:48:39 EDT, Tablet Start Date: 07/11/19 Status: Orderedlisinopril 20 mg oral tablet 20 mg, 1, tablet, By Mouth, Daily, # 90 tablet, Refills 1, Tot. Refills 1, Maintenance, 11/17/19 14:21:00 EST, Route to Pharmacy Electronically, [facility], 165, cm, 09/06/19 10:39:00 EDT, Height, 68.1, kg, 03/31/18 0:53:00 EDT, Dry... Start Date: 11/17/19 Status: OrderedMASTECTOMY BRA MASTECTOMY BRA, See Instructions, # 3 each, Refills 1, Tot. Refills 1, Maintenance, USE DIRECTED DX BREAST CA C50.919 FAX [phone], 12/17/16 10:13:30, Compound Start Date: 12/17/16 Status: OrderedMetoprolol Succinate ER 25 mg oral tablet, extended release See Instructions, TAKE 1 TABLET BY MOUTH EVERY DAY, # 90 tablet, 1 Refills, Soft Stop, 11/24/19 15:36:00 EST, [facility], 165, cm, 09/06/19 10:39:00 [...] 9 units... Start Date: 01/28/19 Status: OrderedPen [place], 31 G x 5 mm BD Ultra [...] 1 Refills, Soft Stop, 11/24/19 15:35:00 EST, [facility], 165, cm, 09/06/19 10:39:00 [...] with Active neuropathy(Confirmed) Vitamin D Deficiency(Confirmed) Active [facility] [id number] 200o nl, declines repeat Social History Social History Type Response Smoking Status Never smoker; Other: Quit sm oking age 25; entered on: 06/16/16 Sex
--- OUTSIDE RECORDS SUMMARY | 2022-11-24 21:19 | XMS_ITS | Continuity of Care Document ---
:1935 Author Organization [facility] Address [address] [place] [address]- Care Team Providers Name Role Phone Kristin MAGALLANES, Janes Edwards Primary Care Physician Encounter [facility] Date(s): 08/28/21 - 09/27/21 [facility] [address] [place] [address]- Allergies, Adverse Reactions, Alerts Substance Reaction Severity Status NKA Active Immunizations Given and Recorded Vaccine Date Status Refusal Reason SARS-CoV-2 (COVID-19) mRNA BNT-162b2 vac1 08/27/21 Record [...] Pneumococcal Vaccine (oldterm) 11/16/04 Given 1Result Comment: [facility] Booster #3 [id number] Comment: [id number] Note: done at [id number] Note: [facility] [id number] Note: FLU [id number] Note: VIS [id number] Note: GIVEN IN CLINIC [id number] Comment: local [id number] Note: [facility] [id number] Note: given by smione doc by [id number] Note: Biomedical Wip[place] of Diueag02Mqzxl Note: [employer] [place] VIS [phone] [id number] Comment: WRONG [id number] Note: historical data Medications amoxicillin 500 mg oral capsule See Instructions, 4 capsule By Mouth One Hour Prior to Dental Procedure dentiist prescribes, # 4 capsule, 5 Refills, Maintenance, 08/03/20 9:37:00 EDT, Capsule, [id number], 165, cm, 03/13/20 16:53:00 EDT, Height [...] USE DIRECTED DX BREAST CANCER C50.919 FAX [phone], 12/17/16 10:11:47, Compound Start Date: 12/17/16 Status: [...] Strips See Instructions, # 250 each, Refills 1, Tot. 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 Refills 0, Maintenance, Please evaluate and treat patient for hearing loss., 05/02/14 10:11:59, Compound Start Date: 05/02/14 Status: Orderedhydrochlorothiazide 25 mg oral tablet See Instructions, TAKE 1 TABLET EVERY DAY GIve 90 day supply, # 90 tablet, Refills 1, Tot. Refills 1, 05/30/21 13:15:00 EDT, Instructions Replace Required Details, Route to Pharmacy Electronically, [facility]/pharmacy #[id number], 165, cm, 03/22/21 10:38:00 EDT,... Start Date: 05/30/21 Status: OrderedKlonoPIN 0.5 mg oral tablet 1 tablet = 0.5 mg, By Mouth, 2 times a day, PRN vertigo, # 30 tablet, 0 Refills, Maintenance, 02/14/20 12:08:00 EDT, Tablet, [facility]/pharmacy #[id number], 165, cm, 09/06/19 10:39:00 EDT, Height, 68.1, kg, 03/31/18 0:53:00 EDT, Dry Weight Start Date: 02/14/20 Status: OrderedLantus Solostar Pen 100 units/mL subcutaneous solution See Instructions, INJECT 17 UNITS SUBCUTANEOUSLY DAILY. ROTATE INJECTION SITES, # 5 each, 1 Refills,08/26/21 9:36:00 EDT, [facility]/pharmacy #[id number], 165, cm, 03/22/21 10:38:00 EDT, Height Start Date: 08/26/21 Status: OrderedLevoxyl 0.1 mg oral tablet 1 tablet = 0.1 mg, By Mouth, Daily, # 90 tablet, 0 Refills, Maintenance, 08/13/21 16:53:00 EDT, Tablet, [facility], 165, cm, 03/22/21 10:38:00 EDT, Height Start Date: 08/13/21 Status: Orderedlisinopril 20 mg oral tablet 20 mg, 1, tablet, By Mouth, Daily, # 90 tablet, Refills 0, Tot. Refills 0, Maintenance, 08/13/21 16:53:00 EDT, Route to Pharmacy Electronically, [facility], 165, cm, 03/22/21 10:38:00 EDT, Height Start Date: 08/13/21 Status: OrderedMASTECTOMY BRA MASTECTOMY BRA, See Instructions, # 3 each, Refills 1, Tot. Refills 1, Maintenance, USE DIRECTED DX BREAST CA C50.919 FAX [phone], 12/17/16 10:13:30, Compound Start Date: 12/17/16 Status: OrderedMetoprolol Succinate ER 25 mg oral tablet, extended release See Instructions, TAKE 1 TABLET BY MOUTH EVERY DAY, # 90 tablet, 0 Refills, Soft Stop, 08/13/21 16:53:00 EDT, [facility], 165, cm, 03/22/21 10:38:00 EDT, Height Start Date: 08/13/21 Status: OrderedMisc Durable Medical Equipment MASTECTOMY BRA, See Instructions, # 3 each, Refills 0, Tot. Refills 0, Maintenance, USE DIRECTED DX BREAST CANCER, 09/17/16 15:02:49, Compound Start Date: 09/17/16 Status: OrderedNovoLOG FlexPen 100 units/mL injectable solution See Instructions, SLIDING SCALE IF BS 70-99= 7 UNITS, 100-129=8 U, 130-159=9 U, 160-189=10 U, 190-219=11 U, 220-249=12 U, 250-279=13 U,, 280-309=14 U, 310-350: 16 U & CALL PCP OFFICE, # 45 Unknown,1 Refills, [id number], 165, cm, 03/22/21 10:38:0... Start Date: 08/20/21 Status: OrderedPen [place], 31 G x 5 mm BD Ultra Fine III See Instructions, # 360 each, Refills 3, Tot. 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, 07/11/19 9:18:36 EDT, 90 day supply, Compound Start Date: 07/11/19 Status: Orderedpravastatin 80 mg oral tablet See Instructions, TAKE 1 TABLET AT BEDTIME, # 90 tablet, 1 Refills, [facility], 165, cm, 03/22/21 10:38:00 EDT, Height Start Date: 08/20/21 Status: OrderedVitamin B12 1000 mcg oral tablet 1 tablet = 1,000 mcg, By Mouth, Daily, # 90 tablet, 3 Refills, Maintenance, 06/18/21 13:50:00 EDT, Tablet, [facility]/pharmacy #[id number], 165, cm, 03/22/21 10:38:00 EDT, Height Start Date: 06/18/21 Status: Ordered Problem List Condition Effective Dates [...] Active neuropathy(Confirmed) Vitamin D Deficiency(Confirmed) Active 1H [id number] 200o nl, declines repeat Social History Social History Type Response Smoking Status Never smoker; Other: Quit sm okester age 25; entered on: 06/16/16 Sex
--- OUTSIDE RECORDS SUMMARY | 2022-11-24 21:19 | XMS_ITS | Continuity of Care Document ---
:1935 Author Organization [facility] Address [address] [place] [address]- Care Team Providers Name Role Phone Kristin MAGALLANES, Janes Edwards Primary Care Physician Encounter [facility] Date(s): 10/23/20 - 11/22/20 [facility] [address] [place] [address]- Allergies, Adverse Reactions, Alerts Substance Reaction Severity [...] Vaccine (oldterm) 11/16/04 Given 1Result Comment: local [id number] Note: [facility] [id number] Note: given by simone torres by [id number] Note: done at AYL1Srhqi [facility]: [facility]jd [facility]: FLU [id number] Note: VIS ERCAO8Suerk Note: GIVEN IN CLINIC [id number] Note: Biomedical [facility]Zwmglq16Zzxbi Note: Biomedical [employer] [facility] VIS [phone] [id number] Comment: WRONG [id number] Note: historical data Medications amoxicillin 500 mg oral capsule See Instructions, 4 capsule By Mouth One Hour Prior to Dental Procedure dentiist prescribes, # 4 capsule, 5 Refills, Maintenance, 08/03/20 9:37:00 EDT, Capsule, [facility]/pharmacy #7111, 165, cm, 03/13/20 16:53:00 EDT, Height Start Date: 08/03/20 Status: OrderedAspirin Enteric Coated 81 mg oral delayed release tablet See Instructions, # 90 tablet, Refills 3 Tot. Refills 3, TAKE 1 TABLET BY MOUTH EVERY DAY, [facility]/pharmacy #7111 Start Date: 06/27/19 Status: OrderedBREAST PROSTHETIC BREAST PROSTHETIC, See Instructions, # 1 each, Refills 0, Tot. Refills 0, Maintenance, USE DIRECTED DX BREAST CANCER C50.919 FAX [phone], 12/17/16 10:11:47, Compound Start Date: 12/17/16 Status: OrderedDepakote ER 500 mg oral tablet, extended release 1 tablet = 500 mg, By Mouth, Daily, # 90 tablet, 1 Refills, Maintenance, 12/30/19 13:35:00 EST, ER Tablet, [facility]/pharmacy #7111, 165, cm, 09/06/19 10:39:00 EDT, Height, [...] tablet, 1 Refills, Maintenance, 10/26/20 9:06:00 EST, [facility], 165, cm, 09/20/20 10:13:00 EST, Height Start Date: 10/26/20 Status: OrderedHearing test Hearing test, See Instructions, # 1 each, Refills 0, Tot. Refills 0, Maintenance, Please evaluate and treat patient for hearing loss., 05/02/14 10:11:59, Compound Start Date: 05/02/14 Status: Orderedhydrochlorothiazide 25 mg oral tablet 1, tablet, By Mouth, Daily, # 90 tablet, Refills 1, Tot. Refills 1, Maintenance, 11/02/20 13:24:00 EST, Route to Pharmacy Electronically, [facility], 165, cm, 09/20/20 10:13:00 EST, Height Start Date: 11/02/20 Status: OrderedKlonoPIN 0.5 mg oral tablet 1 tablet = 0.5 mg, By Mouth, 2 times a day, PRN vertigo, # 30 tablet, 0 Refills, Maintenance, 02/14/20 12:08:00 EDT, Tablet, [facility]/pharmacy #7111, 165, cm, 09/06/19 10:39:00 EDT, Height, 68.1, kg, 03/31/18 0:53:00 EDT, Dry Weight Start Date: 02/14/20 Status: OrderedLantus Solostar Pen 100 units/mL subcutaneous solution See Instructions, INJECT 17 UNITS SUBCUTANEOUSLY DAILY. ROTATE INJECTION SITES, # 5 each, 3 Refills,03/13/20 17:21:00 EDT, [facility]/pharmacy #7111, 165, cm, 03/13/20 16:53:00 EDT, Height, 68.1, kg, 03/31/18 0:53:00 EDT, Dry Weight Start Date: 03/13/20 Status: OrderedLevoxyl 0.1 mg oral tablet 1 tablet = 0.1 mg, By Mouth, Daily, # 90 tablet, 1 Refills, Maintenance, 10/30/20 8:37:00 EST, Tablet, [facility], 165, cm, 09/20/20 10:13:00 EST, Height Start Date: 10/30/20 Status: Orderedlisinopril 20 mg oral tablet 20 mg, 1, tablet, By Mouth, Daily, # 90 tablet, Refills 1, Tot. Refills 1, Maintenance, 10/30/20 8:37:00 EST, Route to Pharmacy Electronically, [facility], 165, cm, 09/20/20 10:13:00EST, Height Start Date: 10/30/20 Status: OrderedMASTECTOMY BRA MASTECTOMY BRA, See Instructions, # 3 each, Refills 1, Tot. Refills 1, Maintenance, USE DIRECTED DX BREAST CA C50.919 FAX [phone], 12/17/16 10:13:30, Compound Start Date: 12/17/16 Status: OrderedMetoprolol Succinate ER 25 mg oral tablet, extended release See Instructions, TAKE 1 TABLET BY MOUTH EVERY DAY, # 90 tablet, 1 Refills, Soft Stop, 10/30/20 8:38:00 EST, [facility], 165, cm, 09/20/20 10:13:00 EST, Height Start Date: 10/30/20 Status: OrderedMisc Durable Medical Equipment MASTECTOMY BRA, [...] # 15 each, 3 Refil... Start Date: 09/26/20 Status: OrderedPen [place], 31 G x 5 mm BD Ultra [...] 1 Refills, Soft Stop, 08/26/20 7:47:00 EDT, [facility], 165, cm, [...] with Active neuropathy(Confirmed) Vitamin D Deficiency(Confirmed) Active [facility] [place] [id number] 200o nl, declines repeat Social History Social History Type Response Smoking Status Never smoker; Other: Quit sm oking age 25; entered on: 06/16/16 Sex
--- OUTSIDE RECORDS SUMMARY | 2022-11-24 21:19 | XMS_ITS | Continuity of Care Document ---
:1935 Author Organization [facility] Address [address] [place] [address]- Care Team Providers Name Role Phone Janes Foster MD Primary Care Physician [place] [facility] [place]03[place] 08/03/20 [facility] [address] [place] [address]- [facility] Attending Physician: Janes Foster MD Allergies, Adverse [...] Pneumococcal Vaccine (oldterm) 11/16/04 Given 1Admin Note: [facility] in [address] Note: given by simone doc by [id number] Note: done at RHB4Nffqm Note: [facility] [id number] Note: FLU RKEBRE4Mezbh Note: VIS GIVEN7 Admin Note: GIVEN IN CLINIC [id number] Note: Biomedical [facility] CenterZecuor7Suuiu Note: Biomedical [facility] VIS [phone] [id number] Comment: WRONG [id number] Note: historical data Medications amoxicillin 500 mg oral capsule See Instructions, 4 capsule By Mouth One Hour Prior to Dental Procedure dentiist prescribes, # 4 capsule, 5 Refills, Maintenance, 08/03/20 9:37:00 EDT, Capsule, [facility]/pharmacy #[id number], 165, cm, 03/13/20 16:53:00 EDT, Height Start Date: 08/03/20 Status: OrderedAspirin Enteric Coated 81 mg oral delayed release tablet See Instructions, # 90 tablet, Refills 3 Tot. Refills 3, TAKE 1 TABLET BY MOUTH EVERY DAY, [facility]/pharmacy #7111 Start Date: 06/27/19 Status: OrderedBREAST PROSTHETIC BREAST PROSTHETIC, See Instructions, # 1 each, Refills 0, Tot. Refills 0, Maintenance, USE DIRECTED DX BREAST CANCER C50.919 FAX [phone], 12/17/16 10:11:47, Compound Start Date: 12/17/16 Status: OrderedDepakote ER 500 mg oral tablet, extended release 1 tablet = 500 mg, By Mouth, Daily, # 90 tablet, 1 Refills, Maintenance, 12/30/19 13:35:00 EST, ER Tablet, [facility]/pharmacy #7111, 165, cm, 09/06/19 10:39:00 EDT, [...] tablet, 1 Refills, Maintenance, 06/05/20 12:43:00 EDT, [facility], 165, cm, 03/13/20 16:53:00 [...] 06/05/20 16:00:00 EDT, Route to Pharmacy Electronically, [facility], 165, cm, 03/13/20 16:53:00 EDT, Height Start Date: 06/05/20 Status: OrderedKlonoPIN 0.5 mg oral tablet 1 tablet = 0.5 mg, By Mouth, 2 times a day, PRN vertigo, # 30 tablet, 0 Refills, Maintenance, 02/14/20 12:08:00 EDT, Tablet, [facility]/pharmacy #7111, 165, cm, 09/06/19 10:39:00 EDT, Height, 68.1, kg, 03/31/18 0:53:00 EDT, Dry Weight Start Date: 02/14/20 Status: OrderedLantus Solostar Pen 100 units/mL subcutaneous solution See Instructions, INJECT 17 UNITS SUBCUTANEOUSLY DAILY. ROTATE INJECTION SITES, # 5 each, 3 Refills,03/13/20 17:21:00 EDT, [facility]/pharmacy #7111, 165, cm, 03/13/20 16:53:00 EDT, Height, 68.1, kg, 03/31/18 0:53:00 EDT, Dry Weight Start Date: 03/13/20 Status: OrderedLevoxyl 0.1 mg oral tablet 1 tablet = 0.1 mg, By Mouth, Daily, # 90 tablet, 1 Refills, Maintenance, 04/02/20 12:46:00 EDT, Tablet, [facility], 165, cm, 03/13/20 16:53:00 EDT, Height Start Date: 04/02/20 Status: Orderedlisinopril 20 mg oral tablet 20 mg, 1, tablet, By Mouth, Daily, # 90 tablet, Refills 1, Tot. Refills 1, Maintenance, 04/02/20 12:50:00 EDT, Route to Pharmacy Electronically, [facility], 165, cm, 03/13/20 16:53:00 EDT, Height, Dry Weight Start Date: 04/02/20 Status: OrderedMASTECTOMY BRA MASTECTOMY BRA, See Instructions, # 3 each, Refills 1, Tot. Refills 1, Maintenance, USE DIRECTED DX BREAST CA C50.919 FAX [phone], 12/17/16 10:13:30, Compound Start Date: 12/17/16 Status: OrderedMetoprolol Succinate ER 25 mg oral tablet, extended release See Instructions, TAKE 1 TABLET BY MOUTH EVERY DAY, # 90 tablet, 1 Refills, Soft Stop, 04/02/20 12:50:00 EDT, [facility], 165, cm, 03/13/20 16:53:00 [...] 30 mL, 3 Refills, Maintenance, 05/22/20 14:15:00 EDT,[facility], 251- 280=7 units,28... Start Date: 05/22/20 Status: OrderedPen [place], 31 G x 5 mm BD Ultra [...] Refills, Soft Stop, 02/14/20 12:08:00 EDT, Tablet, [facility]/pharmacy #[id number], 165, cm, 09/06/19 10:39:00 EDT, [...] with Active neuropathy(Confirmed) Vitamin D Deficiency(Confirmed) Active [facility] [id number] 200o nl, declines repeat Social History Social History Type Response Smoking Status Never smoker; Other: Quit sm oking age 25; entered on: 06/16/16 Sex
--- OUTSIDE RECORDS SUMMARY | 2022-11-24 21:19 | XMS_ITS | Continuity of Care Document ---
:1935 Author Organization [facility] Address [address] [place] [address]- Care Team Providers Name Role Phone Kristin MAGALLANES, Janes Edwards Primary Care Physician Encounter [facility] Date(s): 08/21/20 - 09/20/20 [facility] [address] [place] [address]- Allergies, Adverse Reactions, Alerts Substance Reaction Severity [...] Vaccine (oldterm) 11/16/04 Given 1Result Comment: local ukaphjwq3Ufngv Note: [facility] kqfrjp0Zbcsv Note: given by simone torres by pfxkij9Sygmj Note: done at QVW9Ywyjx [facility]: FLU YYYKXD9Jfqoq Note: VIS HJIDW0Pcdhh Note: GIVEN IN CLINIC FRCM3Okgcq Note: Biomedical [facility]29Zmeml Note: Biomedical [employer] [facility] VIS [phone] [id number] Comment: WRONG RSTQG82Qugrx Note: historical data Medications amoxicillin 500 mg oral capsule See Instructions, 4 capsule By Mouth One Hour Prior to Dental Procedure dentiist prescribes, # 4 capsule, 5 Refills, Maintenance, 08/03/20 9:37:00 EDT, Capsule, [facility]/pharmacy #[id number], 165, cm, 03/13/20 16:53:00 EDT, Height Start Date: 08/03/20 Status: OrderedAspirin Enteric Coated 81 mg oral delayed release tablet See Instructions, # 90 tablet, Refills 3 Tot. Refills 3, TAKE 1 TABLET BY MOUTH EVERY DAY, [facility]/pharmacy #[id number] Start Date: 06/27/19 Status: OrderedBREAST PROSTHETIC BREAST PROSTHETIC, See Instructions, # 1 each, Refills 0, Tot. Refills 0, Maintenance, USE DIRECTED DX BREAST CANCER C50.919 FAX [phone], 12/17/16 10:11:47, Compound Start Date: 12/17/16 Status: OrderedDepakote ER 500 mg oral tablet, extended release 1 tablet = 500 mg, By Mouth, Daily, # 90 tablet, 1 Refills, Maintenance, 12/30/19 13:35:00 EST, ER Tablet, [facility]/pharmacy #[id number], 165, cm, 09/06/19 10:39:00 EDT, Height, [...] tablet, 1 Refills, Maintenance, 06/05/20 12:43:00 EDT, [facility], 165, cm, [...] 08/16/20 12:04:00 EDT, Route to Pharmacy Electronically, [facility], 165, cm, 03/13/20 16:53:00 EDT, Height Start Date: 08/16/20 Status: OrderedKlonoPIN 0.5 mg oral tablet 1 tablet = 0.5 mg, By Mouth, 2 times a day, PRN vertigo, # 30 tablet, 0 Refills, Maintenance, 02/14/20 12:08:00 EDT, Tablet, [facility]/pharmacy #[id number], 165, cm, 09/06/19 10:39:00 EDT, Height, 68.1, kg, 03/31/18 0:53:00 EDT, Dry Weight Start Date: 02/14/20 Status: OrderedLantus Solostar Pen 100 units/mL subcutaneous solution See Instructions, INJECT 17 UNITS SUBCUTANEOUSLY DAILY. ROTATE INJECTION SITES, # 5 each, 3 Refills,03/13/20 17:21:00 EDT, [facility]/pharmacy #[id number], 165, cm, 03/13/20 16:53:00 EDT, Height, [...] 08/26/20 7:47:00 EDT, Route to Pharmacy Electronically, [facility], 165, cm, 03/13/20 16:53:00EDT, Height, Dry Weight Start Date: 08/26/20 Status: OrderedMASTECTOMY BRA MASTECTOMY BRA, See Instructions, # 3 each, Refills 1, Tot. Refills 1, Maintenance, USE DIRECTED DX BREAST CA C50.919 FAX [phone], 12/17/16 10:13:30, Compound Start Date: 12/17/16 Status: OrderedMetoprolol Succinate ER 25 mg oral tablet, extended release See Instructions, TAKE 1 TABLET BY MOUTH EVERY DAY, # 90 tablet, 0 Refills, Soft Stop, 08/26/20 7:47:00 EDT, [facility], 165, cm, 03/13/20 16:53:00 [...] mL, 3 Refills, Maintenance, 05/22/20 14:15:00 EDT, [facility]... Start Date: 05/22/20 Status: OrderedPen [place], 31 G x 5 mm BD Ultra [...] Active neuropathy(Confirmed) Vitamin D Deficiency(Confirmed) Active [facility] [id number] 200o nl, declines repeat Social History Social History Type Response Smoking Status Never smoker; Other: Quit sm oking age 25; entered on: 06/16/16 Sex
--- OUTSIDE RECORDS SUMMARY | 2022-11-24 21:19 | XMS_ITS | Continuity of Care Document ---
:1935 Author Organization [facility] Address [address] [place] [address]- Care Team Providers Name Role Phone Janes Foster MD Primary Care Physician Encounter [facility] Date(s): 02/14/20 - 02/24/20 [facility] [address] [place] [address]- [facility] Attending Physician: Kate Sr Admitting Physician: AdmtrKate [...] (oldterm) 11/16/04 Given 1Admin Note: [facility] cqnyjw3Ggphk Note: given by simone torres by nzhxqa5Fqojp Note: done at HFQ8Nzghg [facility]: FLU TBYWCF6Fcsgz Note: VIS GIVEN7 Admin Note: GIVEN IN CLINIC DJAF1Gjrju Note: Biomedical [facility]tyqzo1Riyxl Note: Biomedical Jason [facility] VIS [phone] cppoo27Rbccgz Comment: WRONG [id number] Note: historical data Medications amoxicillin 500 mg oral capsule See Instructions, 4 capsule By Mouth One Hour Prior to Dental Procedure dentiist prescribes, 0 Refills, Maintenance, 01/06/17 13:14:51 Start Date: 01/06/17 Status: OrderedAspirin Enteric Coated 81 mg oral delayed release tablet See Instructions, # 90 tablet, Refills 3 Tot. Refills 3, TAKE 1 TABLET BY MOUTH EVERY DAY, [facility]/pharmacy #[id number] Start Date: 06/27/19 Status: OrderedBREAST PROSTHETIC BREAST PROSTHETIC, See Instructions, # 1 each, Refills 0, Tot. Refills 0, Maintenance, USE DIRECTED DX BREAST CANCER C50.919 FAX [phone], 12/17/16 10:11:47, Compound Start Date: 12/17/16 Status: OrderedDepakote ER 500 mg oral tablet, extended release 1 tablet = 500 mg, By Mouth, Daily, # 90 tablet, 1 Refills, Maintenance, 12/30/19 13:35:00 EST, ER Tablet, [facility]/pharmacy #[id number], 165, cm, 09/06/19 10:39:00 [...] 11/21/19 14:40:00 EST, Route to Pharmacy Electronically, [facility], 165, cm, 09/06/19 10:39:00 EDT, Height, 68... Start Date: 11/21/19 Stop Date: 05/19/20 Status: OrderedKlonoPIN 0.5 mg oral tablet 1 tablet = 0.5 mg, By Mouth, 2 times a day, PRN vertigo, # 30 tablet, 0 Refills, Maintenance, 02/14/20 12:08:00 EDT, Tablet, [facility]/pharmacy #[id number], 165, cm, 09/06/19 10:39:00 EDT, Height, 68.1, kg, 03/31/18 0:53:00 EDT, Dry Weight Start Date: 02/14/20 Status: OrderedLantus Solostar Pen 100 units/mL subcutaneous solution See Instructions, INJECT 17 UNITS SUBCUTANEOUSLY DAILY. ROTATE INJECTION SITES, # 6 Unknown, 0 Refills, Maintenance, [id number], 165, cm, 09/06/19 10:39:00 EDT, Height, 68.1, [...] 11/17/19 14:21:00 EST, Route to Pharmacy Electronically, [facility], 165, cm, 09/06/19 10:39:00 EDT, Height, 68.1, kg, 03/31/18 0:53:00 EDT, Dry... Start Date: 11/17/19 Status: OrderedMASTECTOMY BRA MASTECTOMY BRA, See Instructions, # 3 each, Refills 1, Tot. Refills 1, Maintenance, USE DIRECTED DX BREAST CA C50.919 FAX [phone], 12/17/16 10:13:30, Compound Start Date: 12/17/16 Status: OrderedMetoprolol Succinate ER 25 mg oral tablet, extended release See Instructions, TAKE 1 TABLET BY MOUTH EVERY DAY, # 90 tablet, 1 Refills, Soft Stop, 11/24/19 15:36:00 EST, [facility], 165, cm, 09/06/19 10:39:00 [...] 9 units... Start Date: 01/28/19 Status: OrderedPen [place], 31 G x 5 mm BD Ultra [...] Soft Stop, 02/14/20 12:08:00 EDT, Tablet, [facility]/pharmacy #[id number], 165, cm, 09/06/19 10:39:00 [...] Active neuropathy(Confirmed) Vitamin D Deficiency(Confirmed) Active 1H [id number] 200o nl, declines repeat Social History Social History Type Response Smoking Status Never smoker; Other: Quit sm oking age 25; entered on: 06/16/16 Sex
--- OUTSIDE RECORDS SUMMARY | 2022-11-24 21:19 | XMS_ITS | Continuity of Care Document ---
:1935 Author Organization [facility] Address [address] [place] [address]- Care Team Providers Name Role Phone Janes Foster MD Primary Care Physician Encounter [facility] Date(s): 07/03/22 - 08/22/22 [facility] [address] [place] [address]- Attending Physician: Janes Foster MD Admitting Physician: Janes Foster MD Allergies, Adverse Reactions, Alerts No Known Allergies Immunizations Given and Recorded Vaccine Date Status Refusal Reason SARS-CoV-2 mRNA ([id number]) vax 04/03/22 Recorde d SARS-CoV-2 (COVID-19) mRNA [...] tetanus/diphtheria/pertussis, acel(Tdap) 09/06/19 Given pneumococcal 13-valent vaccine 5/14/15 Given FluLaval (oldterm)11 08/01/11 Given FluLaval (oldterm)12 08/21/10 Given influ virus vac, H1N1, inactive(oldterm)13 07/22/11 Given tetanus-diphtheria toxoids (Td)14 11/30/09 Given tetanus-diphtheria toxoids (Td) 11/16/99 Given Influenza Inactive (IM) (oldterm) 09/14/08 Given Pneumococcal Vaccine (oldterm) 11/16/04 Given 1Result Comment: [facility] [id number] Comment: TOE6Kehxl Note: done at PRM3Nljax [facility]: FLU EUIKOR9Lvnsy Note: VIS NXXEU9Zumtj Note: GIVEN IN CLINIC GVOE2Tuzlhs Comment: local nuhexnwu1Xtxsz Note: [facility] zibgrk01Ijixs Note: given by simone doc by ajjdmm41Nkbfl Note: Biomedical [facility]Tjxag Note: Biomedical [facility] VIS [phone] pjkhq34Gnjmls Comment: WRONG AKCJJ71Zpuzp Note: historical data Medications amoxicillin 500 mg oral capsule See Instructions, 4 capsule By Mouth One Hour Prior to Dental Procedure dentiist prescribes, # 4 capsule, 5 Refills, Maintenance, 06/30/22 15:13:00 EDT, Capsule, [facility]/pharmacy #[id number], 165, cm, 10/29/21 [...] USE DIRECTED DX BREAST CANCER C50.919 FAX [phone], 12/17/16 10:11:47, Compound Start Date: 12/17/16 Status: [...] Details, Route to Pharmacy Electronically, [facility] ([facility]), 165,cm, 10/29/21 10:57:00 EST, Height Start Date: 05/28/22 Status: OrderedLantus Solostar Pen 100 units/mL subcutaneous solution See Instructions, INJECT 19 UNITS SUBCUTANEOUSLY DAILY. ROTATE INJECTION SITES, # 15 Unknown, 1 Refills, [facility], 165, cm, 10/29/21 10:57:00 EST, Height Start Date: 05/23/22 Status: Orderedlevothyroxine 0.1 mg oral tablet 1 tablet, By Mouth, Daily, # 90 tablet, 1 Refills, [facility], 165, cm, 10/29/21 10:57:00 EST, Height Start Date: 03/31/22 Status: Orderedlisinopril 20 mg oral tablet 1, tablet, By Mouth, Daily, # 90 tablet, Refills 1, Route to Pharmacy Electronically, [facility], 165, cm, 10/29/21 10:57:00 EST, Height Start Date: 03/31/22 Status: OrderedMASTECTOMY BRA MASTECTOMY BRA, See Instructions, # 3 each, Refills 1, Tot. Refills 1, Maintenance, USE DIRECTED DX BREAST CA C50.919 FAX [phone], 12/17/16 10:13:30, Compound Start Date: 12/17/16 Status: OrderedmetFORMIN 500 mg oral tablet 1 tablet = 500 mg, By Mouth, 2 times a day, # 180 tablet, 3 Refills, Maintenance, 11/25/21 10:33:00 EST, Tablet, [facility], Partial fill upon patient request if the prescription is for a schedule II opioid drug., 165, cm, 10/29/21... Start Date: 11/25/21 Status: OrderedMetoprolol Succinate ER 25 mg oral tablet, extended release 1 tablet, By Mouth, Daily, # 90 tablet, 1 Refills, 06/20/22 9:45:00 EDT, [facility] (Now [facility]), 165, cm, 10/29/21 [...] 45 Unknown, 1 Refills, 03/10/22 9:45:00 EDT, [facility]/pharmacy #[id number]... Start Date: 03/10/22 Status: OrderedPen [place], 31 G x 5 mm BD Ultra Fine III See Instructions, # 360 each, Refills 3, Tot. 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, 07/11/19 9:18:36 EDT, 90 day supply, Compound Start Date: 07/11/19 Status: Orderedpravastatin 80 mg oral tablet 1 tablet, By Mouth, Daily at bedtime, # 90 tablet, 1 Refills, [facility] ([facility]), 165, cm, 10/29/21 10:57:00 EST, Height [...] 3 Refills, Maintenance, 06/18/21 13:50:00 EDT, Tablet, [facility]/pharmacy #[id number], 165, cm, 03/22/21 [...] neuropathy Vitamin D Deficiency Confirmed Active 1H [id number] 200o nl, declines repeat Social History Social History Type Response Smoking Status Never smoker; Other: Quit sm oking age 25; entered on: 06/16/16 Sex Patient Care team information PersonnelName: Kristin MAGALLANES, Janes Edwards Address: Address: [address] [place] [id number]
--- OUTSIDE RECORDS SUMMARY | 2022-11-24 21:19 | XMS_ITS | Continuity of Care Document ---
:1935 Author Organization [facility] Address [address] [place] [address]- Care Team Providers Name Role Phone Janes Foster MD Primary Care Physician Encounter [facility] Date(s): 07/10/20 - 08/16/20 [facility] [address] [place] [address]- [facility] Attending Physician: Janes Foster MD [...] (IM) (oldterm) 09/14/08 Given Pneumococcal Vaccine (oldterm) 1/1/05 Given 1Result Comment: local amzoewnf7Izehb Note: [facility] yjkrpz8Xdqfe Note: given by simone doc by [id number] Note: done at BBR9Npbqu Note: [facility] kieqym7Nezqr Note: FLU VRTMDS7Dbihx Note: VIS JAFQO9Xucve Note: GIVEN IN CLINIC DKJC4Pjbnt Note: [facility]ical [facility]Izzjdl13Jsvzs Note: Biomedical [facility] VIS [phone] gvsqi93Rslvup Comment: WRONG [id number] Note: historical data Medications amoxicillin 500 mg oral capsule See Instructions, 4 capsule By Mouth One Hour Prior to Dental Procedure dentiist prescribes, # 4 capsule, 5 Refills, Maintenance, 08/03/20 9:37:00 EDT, Capsule, [facility]/pharmacy #[id number], 165, cm, 03/13/20 16:53:00 EDT, Height Start Date: 08/03/20 Status: OrderedAspirin Enteric Coated 81 mg oral delayed release tablet See Instructions, # 90 tablet, Refills 3 Tot. Refills 3, TAKE 1 TABLET BY MOUTH EVERY DAY, [facility]/pharmacy #[id number] Start Date: 06/27/19 Status: OrderedBREAST PROSTHETIC BREAST PROSTHETIC, See Instructions, # 1 each, Refills 0, Tot. Refills 0, Maintenance, USE DIRECTED DX BREAST CANCER C50.919 FAX [phone], 12/17/16 10:11:47, Compound Start Date: 12/17/16 Status: OrderedDepakote ER 500 mg oral tablet, extended release 1 tablet = 500 mg, By Mouth, Daily, # 90 tablet, 1 Refills, Maintenance, 12/30/19 13:35:00 EST, ER Tablet, [facility]/pharmacy #[id number], 165, cm, 09/06/19 10:39:00 EDT, Height, [...] tablet, 1 Refills, Maintenance, 06/05/20 12:43:00 EDT, [facility], 165, cm, [...] 08/16/20 12:04:00 EDT, Route to Pharmacy Electronically, [facility], 165, cm, 03/13/20 16:53:00 EDT, Height Start Date: 08/16/20 Status: OrderedKlonoPIN 0.5 mg oral tablet 1 tablet = 0.5 mg, By Mouth, 2 times a day, PRN vertigo, # 30 tablet, 0 Refills, Maintenance, 02/14/20 12:08:00 EDT, Tablet, [facility]/pharmacy #[id number], 165, cm, 09/06/19 10:39:00 EDT, Height, 68.1, kg, 03/31/18 0:53:00 EDT, Dry Weight Start Date: 02/14/20 Status: OrderedLantus Solostar Pen 100 units/mL subcutaneous solution See Instructions, INJECT 17 UNITS SUBCUTANEOUSLY DAILY. ROTATE INJECTION SITES, # 5 each, 3 Refills,03/13/20 17:21:00 EDT, [facility]/pharmacy #[id number], 165, cm, 03/13/20 16:53:00 EDT, Height, 68.1, kg, 03/31/18 0:53:00 EDT, Dry Weight Start Date: 03/13/20 Status: OrderedLevoxyl 0.1 mg oral tablet 1 tablet = 0.1 mg, By Mouth, Daily, # 90 tablet, 1 Refills, Maintenance, 04/02/20 12:46:00 EDT, Tablet, [facility], 165, cm, 03/13/20 16:53:00 EDT, Height Start Date: 04/02/20 Status: Orderedlisinopril 20 mg oral tablet 20 mg, 1, tablet, By Mouth, Daily, # 90 tablet, Refills 1, Tot. Refills 1, Maintenance, 04/02/20 12:50:00 EDT, Route to Pharmacy Electronically, [facility], 165, cm, 03/13/20 16:53:00 EDT, Height, Dry Weight Start Date: 04/02/20 Status: OrderedMASTECTOMY BRA MASTECTOMY BRA, See Instructions, # 3 each, Refills 1, Tot. Refills 1, Maintenance, USE DIRECTED DX BREAST CA C50.919 FAX [phone], 12/17/16 10:13:30, Compound Start Date: 12/17/16 Status: OrderedMetoprolol Succinate ER 25 mg oral tablet, extended release See Instructions, TAKE 1 TABLET BY MOUTH EVERY DAY, # 90 tablet, 1 Refills, Soft Stop, 04/02/20 12:50:00 EDT, [facility], 165, cm, 03/13/20 16:53:00 [...] mL, 3 Refills, Maintenance, 05/22/20 14:15:00 EDT, [facility]... Start Date: 05/22/20 Status: OrderedPen [place], 31 G x 5 mm BD Ultra [...] Refills, Soft Stop, 02/14/20 12:08:00 EDT, Tablet, [facility]/pharmacy #7111, 165, cm, 09/06/19 10:39:00 EDT, Height, [...] Active neuropathy(Confirmed) Vitamin D Deficiency(Confirmed) Active 1H [id number] 200o nl, declines repeat Social History Social History Type Response Smoking Status Never smoker; Other: Quit sm oking age 25; entered on: 06/16/16 Sex
--- OUTSIDE RECORDS SUMMARY | 2022-11-24 21:19 | XMS_ITS | Continuity of Care Document ---
:1935 Author Organization [facility] Address [address] [place] [address]- Care Team Providers Name Role Phone Janes Foster MD Primary Care Physician Encounter [facility] Date(s): 04/12/21 - 05/12/21 [facility] [address] [place] [address]- Allergies, Adverse Reactions, Alerts Substance Reaction Severity [...] H1N1, inactive(oldterm)11 07/22/11 Given tetanus-diphtheria toxoids (Td)12 1/15/10 Given tetanus-diphtheria toxoids (Td) 11/16/99 Given Influenza Inactive (IM) (oldterm) 09/14/08 Given Pneumococcal Vaccine (oldterm) 11/16/04 Given 1Result Comment: local zvodbjlk8Oqyfb Note: [facility] qxhkqg9Vadjp Note: given by simone torres by mhpyrt5Kgwkg Note: done at BNT6Mbydw [facility]: [facility]: FLU TRCPFC7Jkruw Note: VIS CDLKG6Xxlhw Note: GIVEN IN CLINIC LGEB7Vqcdt Note: [facility]ical [employer] [facility] Chzvyx90Bnkie Note: [facility] VIS [phone] keusn26Ibqozs Comment: WRONG WYTZK80Bpwks Note: historical data Medications amoxicillin 500 mg [...] USE DIRECTED DX BREAST CANCER C50.919 FAX [phone], 12/17/16 10:11:47, Compound Start Date: 12/17/16 Status: [...] qday DX E11.9 IDDM 90 DAY SUPPLY, 04/19/21 11:25:00 EDT, Compound, 165, cm, 03/22/21 10:38:00 EDT, Height Start Date: 04/19/21 Status: OrderedGlucophage 500 mg oral tablet 1 tablet = 500 mg, By Mouth, 2 times a day before breakfast and dinne, # 180 tablet, 1 Refills, Maintenance, 10/26/20 9:06:00 EST, [facility], 165, cm, [...] 03/12/21 13:55:00 EDT, Route to Pharmacy Electronically, [facility], 165, cm, 09/20/20 10:13:00 EST, Height Start Date: 03/12/21 Status: OrderedKlonoPIN 0.5 mg oral tablet 1 tablet = 0.5 mg, By Mouth, 2 times a day, PRN vertigo, # 30 tablet, 0 Refills, Maintenance, 02/14/20 12:08:00 EDT, Tablet, [facility]/pharmacy #[id number], 165, cm, 09/06/19 10:39:00 EDT, Height, 68.1, kg, 03/31/18 0:53:00 EDT, Dry Weight Start Date: 02/14/20 Status: OrderedLantus Solostar Pen 100 units/mL subcutaneous solution See Instructions, INJECT 17 UNITS SUBCUTANEOUSLY DAILY. ROTATE INJECTION SITES, # 5 each, 3 Refills,03/13/20 17:21:00 EDT, [facility]/pharmacy #[id number], 165, cm, 03/13/20 16:53:00 EDT, Height, 68.1, kg, 03/31/18 0:53:00 EDT, Dry Weight Start Date: 03/13/20 Status: OrderedLevoxyl 0.1 mg oral tablet 1 tablet = 0.1 mg, By Mouth, Daily, # 90 tablet, 1 Refills, Maintenance, 03/19/21 15:59:00 EDT, Tablet, [facility], 165, cm, 09/20/20 10:13:00 EST, Height Start Date: 03/19/21 Status: Orderedlisinopril 20 mg oral tablet 20 mg, 1, tablet, By Mouth, Daily, # 90 tablet, Refills 1, Tot. Refills 1, Maintenance, 03/19/21 15:59:00 EDT, Route to Pharmacy Electronically, [facility], 165, cm, 09/20/20 10:13:00 EST, Height Start Date: 03/19/21 Status: OrderedMASTECTOMY BRA MASTECTOMY BRA, See Instructions, # 3 each, Refills 1, Tot. Refills 1, Maintenance, USE DIRECTED DX BREAST CA C50.919 FAX [phone], 12/17/16 10:13:30, Compound Start Date: 12/17/16 Status: OrderedMetoprolol Succinate ER 25 mg oral tablet, extended release See Instructions, TAKE 1 TABLET BY MOUTH EVERY DAY, # 90 tablet, 1 Refills, Soft Stop, 03/19/21 15:59:00 EDT, [facility], 165, cm, [...] 3 Refil... Start Date: 01/23/21 Status: OrderedPen [place], 31 G x 5 mm BD Ultra [...] 1 Refills, Soft Stop, 01/24/21 10:05:00 EST, [facility], 165, cm, 09/20/20 10:13:00 [...] Active neuropathy(Confirmed) Vitamin D Deficiency(Confirmed) Active [facility] [id number] 200o nl, declines repeat Social History Social History Type Response Smoking Status Never smoker; Other: Quit sm oking age 25; entered on: 06/16/16 Sex
--- OUTSIDE RECORDS SUMMARY | 2022-11-24 21:19 | XMS_ITS | Continuity of Care Document ---
:1935 Author Organization [facility] Address [address] [place] [address]- Care Team Providers Name Role Phone Janes Foster MD Primary Care Physician Encounter [facility] Date(s): 01/19/20 - 02/19/20 [facility] [address] [place] [address]- [facility] Attending Physician: Janes Foster MD Allergies, Adverse [...] (oldterm) 11/16/04 Given 1Admin Note[facility] [id number] Note: given by simone torres by Neo Note: done at [id number] Note: [facility] zflkrv5Wmuiq Note: FLU [id number] Note: VIS GIVEN7 Admin Note: GIVEN IN CLINIC YIHH2Vzyxr Note: Biomedical [facility]jb[facility]3Whtit Note: Biomedical Svpply [facility] VIS [phone] [id number] Comment: WRONG [id number] Note: historical data Medications amoxicillin 500 mg oral capsule See Instructions, 4 capsule By Mouth One Hour Prior to Dental Procedure dentiist prescribes, 0 Refills, Maintenance, 01/06/17 13:14:51 Start Date: 01/06/17 Status: OrderedAspirin Enteric Coated 81 mg oral delayed release tablet See Instructions, # 90 tablet, Refills 3 Tot. Refills 3, TAKE 1 TABLET BY MOUTH EVERY DAY, [facility]/pharmacy #[id number] Start Date: 06/27/19 Status: OrderedBREAST PROSTHETIC BREAST PROSTHETIC, See Instructions, # 1 each, Refills 0, Tot. Refills 0, Maintenance, USE DIRECTED DX BREAST CANCER C50.919 FAX [phone], 12/17/16 10:11:47, Compound Start Date: 12/17/16 Status: OrderedDepakote ER 500 mg oral tablet, extended release 1 tablet = 500 mg, By Mouth, Daily, # 90 tablet, 1 Refills, Maintenance, 12/30/19 13:35:00 EST, ER Tablet, [facility]/pharmacy #[id number], 165, cm, 09/06/19 10:39:00 [...] 11/21/19 14:40:00 EST, Route to Pharmacy Electronically, [facility], 165, cm, 09/06/19 10:39:00 EDT, Height, 68... Start Date: 11/21/19 Stop Date: 05/19/20 Status: OrderedKlonoPIN 0.5 mg oral tablet 1 tablet = 0.5 mg, By Mouth, 2 times a day, PRN vertigo, # 30 tablet, 0 Refills, Maintenance, 02/14/20 12:08:00 EDT, Tablet, [facility]/pharmacy #[id number], 165, cm, 09/06/19 10:39:00 EDT, Height, 68.1, kg, 03/31/18 0:53:00 EDT, Dry Weight Start Date: 02/14/20 Status: OrderedLantus Solostar Pen 100 units/mL subcutaneous solution See Instructions, INJECT 17 UNITS SUBCUTANEOUSLY DAILY. ROTATE INJECTION SITES, # 6 Unknown, 0 Refills, Maintenance, [id number], 165, cm, 09/06/19 10:39:00 EDT, Height, 68.1, [...] 11/17/19 14:21:00 EST, Route to Pharmacy Electronically, [facility], 165, cm, 09/06/19 10:39:00 EDT, Height, 68.1, kg, 03/31/18 0:53:00 EDT, Dry... Start Date: 11/17/19 Status: OrderedMASTECTOMY BRA MASTECTOMY BRA, See Instructions, # 3 each, Refills 1, Tot. Refills 1, Maintenance, USE DIRECTED DX BREAST CA C50.919 FAX [phone], 12/17/16 10:13:30, Compound Start Date: 12/17/16 Status: OrderedMetoprolol Succinate ER 25 mg oral tablet, extended release See Instructions, TAKE 1 TABLET BY MOUTH EVERY DAY, # 90 tablet, 1 Refills, Soft Stop, 11/24/19 15:36:00 EST, [facility], 165, cm, 09/06/19 10:39:00 [...] 9 units... Start Date: 01/28/19 Status: OrderedPen [place], 31 G x 5 mm BD Ultra [...] Soft Stop, 02/14/20 12:08:00 EDT, Tablet, [facility]/pharmacy #[id number], 165, cm, 09/06/19 10:39:00 [...] Active neuropathy(Confirmed) Vitamin D Deficiency(Confirmed) Active [facility] [id number] 200o nl, declines repeat Social History Social History Type Response Smoking Status Never smoker; Other: Quit sm oking age 25; entered on: 06/16/16 Sex
[2022-11-24 21:20] LABS: Basophils Percent Auto 0.5 % (0-2); Eosinophils Absolute Auto 0.1 X10*3/uL (0.0-0.4); Eosinophils Percent Auto 0.9 % (0-4); Hematocrit 34.3 % (37.0-47.0); Hemoglobin 10.9 g/dl (12.0-16.0); Imm Gran Abs Auto 0.02 X10*3/uL (0.00-0.03); Imm Gran Pct Auto 0.3 % (0.0-0.4); Lymphocytes Absolute Auto 1.7 X10*3/uL (1.2-4.9); Lymphocytes Percent Auto 25.2 % (20-40); Mean Corpuscular HGB Conc 31.8 g/dl (31.0-35.0); Mean Corpuscular Hemoglobin 26.5 pg (27.0-33.0); Mean Corpuscular Volume 83.3 fL (80.0-98.0); Mean Platelet Volume 10.6 fL (9.4-12.3); Monocytes Absolute Auto 0.6 X10*3/uL (0.1-1.2); Monocytes Percent Auto 8.7 % (2-11); Neutrophils Absolute Auto 4.3 x10*3/uL (2.0-8.3); Neutrophils Percent Auto 64.4 % (45-73); Platelet Count 245 X10*3/uL (160-400); Red Blood Count 4.12 X10*6/uL (4.20-5.50); Red Cell Distribution Width 15.6 % (11.0-16.0); White Blood Count 6.7 X10*3/uL (4.8-10.8)
--- OUTSIDE RECORDS SUMMARY | 2022-11-24 21:20 | XMS_ITS | Continuity of Care Document ---
:1935 Author Organization [facility] Address [address] [place] [address]- Care Team Providers Name Role Phone Kristin MAGALLANES, Janes Edwards Primary Care Physician Encounter [facility] Date(s): 10/30/20 - 11/29/20 [facility] [address] [place] [address]- Allergies, Adverse Reactions, Alerts Substance Reaction Severity [...] Vaccine (oldterm) 11/16/04 Given 1Result Comment: local [id number] Note: [facility] afhtfy5Wtvys Note: given by simone torres by [id number] Note: done at WTW6Hnztq Note: [facility]Dwsaz Note: FLU MQGHVU7Iotbj Note: VIS [id number] Note: GIVEN IN CLINIC ETJM4Xhmsr Note: Biomedical Jason [facility]Vps[facility]q03Apnlr Note: Biomedical niiu [facility] VIS [phone] [id number] Comment: WRONG JOJBA45Maaxg Note: historical data Medications amoxicillin 500 mg oral capsule See Instructions, 4 capsule By Mouth One Hour Prior to Dental Procedure dentiist prescribes, # 4 capsule, 5 Refills, Maintenance, 08/03/20 9:37:00 EDT, Capsule, [facility]/pharmacy #[id number], 165, cm, 03/13/20 16:53:00 EDT, Height Start Date: 08/03/20 Status: OrderedAspirin Enteric Coated 81 mg oral delayed release tablet See Instructions, # 90 tablet, Refills 3 Tot. Refills 3, TAKE 1 TABLET BY MOUTH EVERY DAY, [facility]/pharmacy #[id number] Start Date: 06/27/19 Status: OrderedBREAST PROSTHETIC BREAST PROSTHETIC, See Instructions, # 1 each, Refills 0, Tot. Refills 0, Maintenance, USE DIRECTED DX BREAST CANCER C50.919 FAX [phone], 12/17/16 10:11:47, Compound Start Date: 12/17/16 Status: OrderedDepakote ER 500 mg oral tablet, extended release 1 tablet = 500 mg, By Mouth, Daily, # 90 tablet, 1 Refills, Maintenance, 12/30/19 13:35:00 EST, ER Tablet, [facility]/pharmacy #[id number], 165, cm, 09/06/19 10:39:00 [...] tablet, 1 Refills, Maintenance, 10/26/20 9:06:00 EST, [facility], 165, cm, 09/20/20 10:13:00 [...] 11/02/20 13:24:00 EST, Route to Pharmacy Electronically, [facility], 165, cm, 09/20/20 10:13:00 EST, Height Start Date: 11/02/20 Status: OrderedKlonoPIN 0.5 mg oral tablet 1 tablet = 0.5 mg, By Mouth, 2 times a day, PRN vertigo, # 30 tablet, 0 Refills, Maintenance, 02/14/20 12:08:00 EDT, Tablet, [facility]/pharmacy #[id number], 165, cm, 09/06/19 10:39:00 EDT, Height, 68.1, kg, 03/31/18 0:53:00 EDT, Dry Weight Start Date: 02/14/20 Status: OrderedLantus Solostar Pen 100 units/mL subcutaneous solution See Instructions, INJECT 17 UNITS SUBCUTANEOUSLY DAILY. ROTATE INJECTION SITES, # 5 each, 3 Refills,03/13/20 17:21:00 EDT, [facility]/pharmacy #[id number], 165, cm, 03/13/20 16:53:00 EDT, Height, 68.1, kg, 03/31/18 0:53:00 EDT, Dry Weight Start Date: 03/13/20 Status: OrderedLevoxyl 0.1 mg oral tablet 1 tablet = 0.1 mg, By Mouth, Daily, # 90 tablet, 1 Refills, Maintenance, 10/30/20 8:37:00 EST, Tablet, [facility], 165, cm, 09/20/20 10:13:00 EST, Height Start Date: 10/30/20 Status: Orderedlisinopril 20 mg oral tablet 20 mg, 1, tablet, By Mouth, Daily, # 90 tablet, Refills 1, Tot. Refills 1, Maintenance, 10/30/20 8:37:00 EST, Route to Pharmacy Electronically, [facility], 165, cm, 09/20/20 10:13:00EST, Height Start Date: 10/30/20 Status: OrderedMASTECTOMY BRA MASTECTOMY BRA, See Instructions, # 3 each, Refills 1, Tot. Refills 1, Maintenance, USE DIRECTED DX BREAST CA C50.919 FAX [phone], 12/17/16 10:13:30, Compound Start Date: 12/17/16 Status: OrderedMetoprolol Succinate ER 25 mg oral tablet, extended release See Instructions, TAKE 1 TABLET BY MOUTH EVERY DAY, # 90 tablet, 1 Refills, Soft Stop, 10/30/20 8:38:00 EST, [facility], 165, cm, 09/20/20 10:13:00 [...] 3 Refil... Start Date: 09/26/20 Status: OrderedPen [place], 31 G x 5 mm BD Ultra [...] 1 Refills, Soft Stop, 08/26/20 7:47:00 EDT, [facility] Mail [...] with Active neuropathy(Confirmed) Vitamin D Deficiency(Confirmed) Active [facility] [id number] 200o nl, declines repeat Social History Social History Type Response Smoking Status Never smoker; Other: Quit sm oking age 25; entered on: 06/16/16 Sex
--- OUTSIDE RECORDS SUMMARY | 2022-11-24 21:20 | XMS_ITS | Continuity of Care Document ---
:1935 Author Organization [facility] Address [address] [place] [address]- Care Team Providers Name Role Phone Janes Foster MD Primary Care Physician Encounter [facility] Date(s): 12/05/20 - 01/04/[address] [address]- Attending Physician: Kate Sr Admitting Physician: AdmKate jeffries Referring Physician: AdmtrKate Allergies, Adverse Reactions, Alerts Substance Reaction Severity Status NKA Active Immunizations Given and Recorded Vaccine Date Status Refusal Reason SARS-CoV-2 (COVID-19) mRNA BNT-162b2 vac 12/28/20 Given [...] Vaccine (oldterm) 11/16/04 Given 1Result Comment: local hgsxzfwv1Kdmhb Note: [facility] nhbzin0Hloyi Note: given by simone doc by [id number] Note: done at QYY2Vtaad Note: [facility] nbptwc5Uzliu Note: FLU USLOJZ5Hbrsk Note: VIS SVNZX8Agvlh Note: GIVEN IN CLINIC PJRN3Plcjc Note: [employer] of Sdxycn96Bsvfa Note: [employer] VIS [phone] qtaeg89Kghsjx Comment: WRONG [id number] Note: historical data Medications amoxicillin 500 mg oral capsule See Instructions, 4 capsule By Mouth One Hour Prior to Dental Procedure dentiist prescribes, # 4 capsule, 5 Refills, Maintenance, 08/03/20 9:37:00 EDT, Capsule, [facility]/pharmacy #[id number], 165, cm, 03/13/20 16:53:00 EDT, Height Start Date: 08/03/20 Status: OrderedAspirin Enteric Coated 81 mg oral delayed release tablet See Instructions, # 90 tablet, Refills 3 Tot. Refills 3, TAKE 1 TABLET BY MOUTH EVERY DAY, [facility]/pharmacy #[id number] Start Date: 06/27/19 Status: OrderedBREAST PROSTHETIC BREAST PROSTHETIC, See Instructions, # 1 each, Refills 0, Tot. Refills 0, Maintenance, USE DIRECTED DX BREAST CANCER C50.919 FAX [phone], 12/17/16 10:11:47, Compound Start Date: 12/17/16 Status: OrderedDepakote ER 500 mg oral tablet, extended release 1 tablet = 500 mg, By Mouth, Daily, # 90 tablet, 1 Refills, Maintenance, 12/30/19 13:35:00 EST, ER Tablet, [facility]/pharmacy #[id number], 165, cm, 09/06/19 10:39:00 [...] tablet, 1 Refills, Maintenance, 10/26/20 9:06:00 EST, [facility], 165, cm, 09/20/20 10:13:00 [...] 11/02/20 13:24:00 EST, Route to Pharmacy Electronically, [facility], 165, cm, 09/20/20 10:13:00 EST, Height Start Date: 11/02/20 Status: OrderedKlonoPIN 0.5 mg oral tablet 1 tablet = 0.5 mg, By Mouth, 2 times a day, PRN vertigo, # 30 tablet, 0 Refills, Maintenance, 02/14/20 12:08:00 EDT, Tablet, [facility]/pharmacy #[id number], 165, cm, 09/06/19 10:39:00 EDT, Height, 68.1, kg, 03/31/18 0:53:00 EDT, Dry Weight Start Date: 02/14/20 Status: OrderedLantus Solostar Pen 100 units/mL subcutaneous solution See Instructions, INJECT 17 UNITS SUBCUTANEOUSLY DAILY. ROTATE INJECTION SITES, # 5 each, 3 Refills,03/13/20 17:21:00 EDT, [facility]/pharmacy #[id number], 165, cm, 03/13/20 16:53:00 EDT, Height, 68.1, kg, 03/31/18 0:53:00 EDT, Dry Weight Start Date: 03/13/20 Status: OrderedLevoxyl 0.1 mg oral tablet 1 tablet = 0.1 mg, By Mouth, Daily, # 90 tablet, 1 Refills, Maintenance, 10/30/20 8:37:00 EST, Tablet, [facility], 165, cm, 09/20/20 10:13:00 EST, Height Start Date: 10/30/20 Status: Orderedlisinopril 20 mg oral tablet 20 mg, 1, tablet, By Mouth, Daily, # 90 tablet, Refills 1, Tot. Refills 1, Maintenance, 10/30/20 8:37:00 EST, [facility], 165, cm, 09/20/20 10:13:00EST, Height Start Date: 10/30/20 Status: OrderedMASTECTOMY BRA MASTECTOMY BRA, See Instructions, # 3 each, Refills 1, Tot. Refills 1, Maintenance, USE DIRECTED DX BREAST CA C50.919 FAX [phone], 12/17/16 10:13:30, Compound Start Date: 12/17/16 Status: OrderedMetoprolol Succinate ER 25 mg oral tablet, extended release See Instructions, TAKE 1 TABLET BY MOUTH EVERY DAY, # 90 tablet, 1 Refills, Soft Stop, 10/30/20 8:38:00 EST, [facility], 165, cm, 09/20/20 10:13:00 [...] 3 Refil... Start Date: 09/26/20 Status: OrderedPen [place], 31 G x 5 mm BD Ultra [...] 1 Refills, Soft Stop, 08/26/20 7:47:00 EDT, [facility], 165, cm, 03/13/20 16:53:00 [...] with Active neuropathy(Confirmed) Vitamin D Deficiency(Confirmed) Active [facility] [id number] 200o nl, declines repeat Social History Social History Type Response Smoking Status Never smoker; Other: Quit sm oking age 25; entered on: 06/16/16 Sex
--- OUTSIDE RECORDS SUMMARY | 2022-11-24 21:20 | XMS_ITS | Continuity of Care Document ---
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 Booster #3 [id number] Comment: [id number] Note: done at GBX1Izunl [facility]: FLU [id number] Note: VIS DXHJR1Fiyet Note: GIVEN IN CLINIC OCYG2Jreokm Comment: local mzyjjfhb4Gxzoq Note: [facility] wpiovm28Dyior Note: given by simone doc by [id number] Note: Biomedical [email or web address] of Whvvgo72Ymuqr Note: [employer] VIS [id number] Comment: WRONG HGGJV50Mpnqe Note: historical data Medications amoxicillin 500 mg oral capsule See Instructions, 4 capsule By Mouth One Hour Prior to Dental Procedure dentiist prescribes, # 4 capsule, 5 Refills, Maintenance, 08/03/20 9:37:00 EDT, Capsule, [facility]/pharmacy #[id number], 165, cm, 03/13/20 16:53:00 EDT, [...] USE DIRECTED DX BREAST CANCER C50.919 FAX [phone], 12/17/16 10:11:47, Compound Start Date: 12/17/16 Status: OrderedDepakote ER 500 mg oral tablet, extended release 1 tablet = 500 mg, By Mouth, Daily, # 90 tablet, 1 Refills, Maintenance, 12/30/19 13:35:00 EST, ER Tablet, [facility]/pharmacy #[id number], 165, cm, 09/06/19 10:39:00 EDT, [...] tablet, 1 Refills, Maintenance, 10/26/20 9:06:00 EST, [facility], 165, cm, 09/20/20 10:13:00 [...] 90 tablet, Refills 1, Tot. Refills 1, 10/25/21 10:42:00 EST, Instructions Replace Required Details, Route to Pharmacy Electronically, [facility], resend to [facility] per... Start Date: 10/25/21 Status: OrderedLantus Solostar Pen 100 units/mL subcutaneous solution See Instructions, INJECT 17 UNITS SUBCUTANEOUSLY DAILY. ROTATE INJECTION SITES, # 5 each, 1 Refills,08/26/21 9:36:00 EDT, [facility]/pharmacy #[id number], 165, cm, 03/22/21 10:38:00 EDT, Height Start Date: 08/26/21 Status: Orderedlevothyroxine 0.1 mg oral tablet 1 tablet, By Mouth, Daily, # 90 tablet, 1 Refills, [facility], 165, cm, 03/22/21 10:38:00 EDT, Height Start Date: 10/15/21 Status: Orderedlisinopril 20 mg oral tablet 1, tablet, By Mouth, Daily, # 90 tablet, Refills 1, Route to Pharmacy Electronically, [facility], 165, cm, 03/22/21 10:38:00 EDT, Height Start Date: 10/15/21 Status: OrderedMASTECTOMY BRA MASTECTOMY BRA, See Instructions, # 3 each, Refills 1, Tot. Refills 1, Maintenance, USE DIRECTED DX BREAST CA C50.919 FAX [phone], 12/17/16 10:13:30, Compound Start Date: 12/17/16 Status: OrderedMetoprolol Succinate ER 25 mg oral tablet, extended release 1 tablet, By Mouth, Daily, # 90 tablet, 1 Refills, [facility], 165, cm, 03/22/21 10:38:00 EDT, Height Start Date: 10/15/21 Status: OrderedMisc Durable Medical Equipment MASTECTOMY BRA, [...] CALL PCP OFFICE, # 45 Unknown,1 Refills, [id number], 165, cm, 03/22/21 10:38:0... Start Date: 08/20/21 Status: OrderedPen [place], 31 G x 5 mm BD Ultra [...] 3 Refills, Maintenance, 06/18/21 13:50:00 EDT, [id number] 165, cm, 03/22/21 10:38:00 EDT, Height [...] with Active neuropathy(Confirmed) Vitamin D Deficiency(Confirmed) Active [facility] [id number] 200o nl, declines repeat Diagnosis Diagnosis Type Effective Health Clinical Informant Dates Status Service HTN (hypertension) Discharge 10/29/21 Diagnosis Type 2 diabetes with Discharge 10/29/21 nephropathy Diagnosis Type 2 diabetes, Discharge 10/29/21 controlled, with Diagnosis neuropathy Seizure after head injury Discharge 10/29/21 Diagnosis Hypercholesterolemia Discharge 10/29/21 Diagnosis Hypothyroid Discharge 10/29/21 Diagnosis Vital Signs Most recent to oldest [Reference Range]: 1 Height 165 cm (10/29/21 10:57 AM) Social History Social History Type Response Smoking Status Never smoker; Other: Quit sm oking age 25; entered on: 06/16/16 Sex
--- OUTSIDE RECORDS SUMMARY | 2022-11-24 21:20 | XMS_ITS | Continuity of Care Document ---
:1935 Author Organization [facility] Address [address] [place] [address]- Care Team Providers Name Role Phone Janes Foster MD Primary Care Physician Encounter [facility] Date(s): 12/15/19 - 04/13/20 [facility] [address] [place] [address] [facility] Attending Physician: Janes Foster MD Allergies, [...] (oldterm) 11/16/04 Given 1Admin Note: [facility] dzffia8Wowgd Note: given by simone torres by Neo Note: done at BTK0Eegeh Note: [facility] afhfqb6Mybve Note: FLU AIXTRE2Pnrmj Note: VIS GIVEN7 Admin Note: GIVEN IN CLINIC NUYG2Wcmjy Note: Biomedical Jason [facility] HospitalOxkiuh2Zybhb Note: Biomedical Jason [facility] VIS [phone] [id number] Comment: WRONG SACPD81Druva Note: historical data Medications amoxicillin 500 mg oral capsule See Instructions, 4 capsule By Mouth One Hour Prior to Dental Procedure dentiist prescribes, 0 Refills, Maintenance, 01/06/17 13:14:51 Start Date: 01/06/17 Status: OrderedAspirin Enteric Coated 81 mg oral delayed release tablet See Instructions, # 90 tablet, Refills 3 Tot. Refills 3, TAKE 1 TABLET BY MOUTH EVERY DAY, [facility]/pharmacy #[id number] Start Date: 06/27/19 Status: OrderedBREAST PROSTHETIC BREAST PROSTHETIC, See Instructions, # 1 each, Refills 0, Tot. Refills 0, Maintenance, USE DIRECTED DX BREAST CANCER C50.919 FAX [phone], 12/17/16 10:11:47, Compound Start Date: 12/17/16 Status: OrderedDepakote ER 500 mg oral tablet, extended release 1 tablet = 500 mg, By Mouth, Daily, # 90 tablet, 1 Refills, Maintenance, 12/30/19 13:35:00 EST, ER Tablet, [facility]/pharmacy #7111, 165, cm, 09/06/19 [...] before breakfast and dinne, # 180 tablet, 0 Refills, Maintenance, 04/02/20 12:46:00 EDT, [facility], 165, cm, 03/13/20 16:53:00 EDT, Height Start Date: 04/02/20 Status: OrderedHearing test Hearing test, See Instructions, [...] 11/21/19 14:40:00 EST, Route to Pharmacy Electronically, [facility], 165, cm, 09/06/19 10:39:00 EDT, Height, 68... Start Date: 11/21/19 Stop Date: 05/19/20 Status: OrderedKlonoPIN 0.5 mg oral tablet 1 tablet = 0.5 mg, By Mouth, 2 times a day, PRN vertigo, # 30 tablet, 0 Refills, Maintenance, 02/14/20 12:08:00 EDT, Tablet, [facility]/pharmacy #[id number], 165, cm, 09/06/19 10:39:00 EDT, Height, 68.1, kg, 03/31/18 0:53:00 EDT, Dry Weight Start Date: 02/14/20 Status: OrderedLantus Solostar Pen 100 units/mL subcutaneous solution See Instructions, INJECT 17 UNITS SUBCUTANEOUSLY DAILY. ROTATE INJECTION SITES, # 5 each, 3 Refills,03/13/20 17:21:00 EDT, [facility]/pharmacy #7111, 165, cm, 03/13/20 16:53:00 [...] 04/02/20 12:50:00 EDT, Route to Pharmacy Electronically, [facility], 165, cm, 03/13/20 16:53:00 EDT, Height, Dry Weight Start Date: 04/02/20 Status: OrderedMASTECTOMY BRA MASTECTOMY BRA, See Instructions, # 3 each, Refills 1, Tot. Refills 1, Maintenance, USE DIRECTED DX BREAST CA C50.919 FAX [phone], 12/17/16 10:13:30, Compound Start Date: 12/17/16 Status: OrderedMetoprolol Succinate ER 25 mg oral tablet, extended release See Instructions, TAKE 1 TABLET BY MOUTH EVERY DAY, # 90 tablet, 1 Refills, Soft Stop, 04/02/20 12:50:00 EDT, [facility], 165, cm, 03/13/20 16:53:00 [...] u, # 5 each, 5 Refills, Maintenance, 03/29/20 10:59:00 EDT, [facility]/pharmacy #[id number], 251-280=7 units,281-320=8 un... Start Date: 03/29/20 Status: OrderedPen [place], 31 G x 5 mm BD Ultra [...] Stop, 02/14/20 12:08:00 EDT, Tablet, [facility]/pharmacy #7111, 165, cm, 09/06/19 [...] Active neuropathy(Confirmed) Vitamin D Deficiency(Confirmed) Active [facility] [id number] 200o nl, declines repeat Social History Social History Type Response Smoking Status Never smoker; Other: Quit sm oking age 25; entered on: 06/16/16 Sex
--- OUTSIDE RECORDS SUMMARY | 2022-11-24 21:20 | XMS_ITS | Continuity of Care Document ---
:1935 Author Organization [facility] Address [address] [place] [address]- Care Team Providers Name Role Phone Janes Foster MD Primary Care Physician Encounter [facility] Date(s): 05/14/20 - 06/13/20 [facility] [address] [place] [address]- [facility] Attending Physician: AdmKate jeffries Admitting Physician: AdmKate jeffries Referring Physician: Admtr, Kobe8 Allergies, Adverse Reactions, [...] (oldterm) 11/16/04 Given 1Admin Note: [facility] akhxer3Pnvqt Note: given by simone torres by Neo Note: done at [id number] [facility]: [facility]Ulf[facility]: FLU [id number] Note: VIS GIVEN7 Admin Note: GIVEN IN CLINIC [id number] Note: [facility]ical [facility]Szdghd7Vjhuq Note: Biomedical Jason [facility] VIS 5966-0269 [id number] Comment: WRONG [id number] Note: historical data Medications amoxicillin 500 mg oral capsule See Instructions, 4 capsule By Mouth One Hour Prior to Dental Procedure dentiist prescribes, 0 Refills, Maintenance, 01/06/17 13:14:51 Start Date: 01/06/17 Status: OrderedAspirin Enteric Coated 81 mg oral delayed release tablet See Instructions, # 90 tablet, Refills 3 Tot. Refills 3, TAKE 1 TABLET BY MOUTH EVERY DAY, [facility]/pharmacy #[id number] Start Date: 06/27/19 Status: OrderedBREAST PROSTHETIC BREAST PROSTHETIC, See Instructions, # 1 each, Refills 0, Tot. Refills 0, Maintenance, USE DIRECTED DX BREAST CANCER C50.919 FAX [phone], 12/17/16 10:11:47, Compound Start Date: 12/17/16 Status: OrderedDepakote ER 500 mg oral tablet, extended release 1 tablet = 500 mg, By Mouth, Daily, # 90 tablet, 1 Refills, Maintenance, 12/30/19 13:35:00 EST, ER Tablet, [facility]/pharmacy #[id number], 165, cm, 09/06/19 10:39:00 EDT, [...] 06/05/20 16:00:00 EDT, Route to Pharmacy Electronically, [facility], 165, cm, 03/13/20 16:53:00 EDT, Height Start Date: 06/05/20 Status: OrderedKlonoPIN 0.5 mg oral tablet 1 tablet = 0.5 mg, By Mouth, 2 times a day, PRN vertigo, # 30 tablet, 0 Refills, Maintenance, 02/14/20 12:08:00 EDT, Tablet, [facility]/pharmacy #[id number], 165, cm, 09/06/19 10:39:00 EDT, Height, 68.1, kg, 03/31/18 0:53:00 EDT, Dry Weight Start Date: 02/14/20 Status: OrderedLantus Solostar Pen 100 units/mL subcutaneous solution See Instructions, INJECT 17 UNITS SUBCUTANEOUSLY DAILY. ROTATE INJECTION SITES, # 5 each, 3 Refills,03/13/20 17:21:00 EDT, [facility]/pharmacy #[id number], 165, cm, 03/13/20 16:53:00 EDT, Height, 68.1, kg, 03/31/18 0:53:00 EDT, Dry Weight Start Date: 03/13/20 Status: OrderedLevoxyl 0.1 mg oral tablet 1 tablet = 0.1 mg, By Mouth, Daily, # 90 tablet, 1 Refills, Maintenance, 04/02/20 12:46:00 EDT, Tablet, [facility], 165, cm, 03/13/20 16:53:00 EDT, Height Start Date: 04/02/20 Status: Orderedlisinopril 20 mg oral tablet 20 mg, 1, tablet, By Mouth, Daily, # 90 tablet, Refills 1, Tot. Refills 1, Maintenance, 04/02/20 12:50:00 EDT, Route to Pharmacy Electronically, [facility], 165, cm, 03/13/20 16:53:00 EDT, Height, Dry Weight Start Date: 04/02/20 Status: OrderedMASTECTOMY BRA MASTECTOMY BRA, See Instructions, # 3 each, Refills 1, Tot. Refills 1, Maintenance, USE DIRECTED DX BREAST CA C50.919 FAX [phone], 12/17/16 10:13:30, Compound Start Date: 12/17/16 Status: OrderedMetoprolol Succinate ER 25 mg oral tablet, extended release See Instructions, TAKE 1 TABLET BY MOUTH EVERY DAY, # 90 tablet, 1 Refills, Soft Stop, 04/02/20 12:50:00 EDT, [facility], 165, cm, 03/13/20 16:53:00 [...] 30 mL, 3 Refills, Maintenance, 05/22/20 14:15:00 EDT,[facility], 251- 280=7 units,28... Start Date: 05/22/20 Status: OrderedPen [place], 31 G x 5 mm BD Ultra [...] Refills, Soft Stop, 02/14/20 12:08:00 EDT, Tablet, [facility]/pharmacy #[id number], 165, cm, 09/06/19 10:39:00 EDT, [...] [facility] [id number] 200o nl, declines repeat Social History Social History Type Response Smoking Status Never smoker; Other: Quit sm oking age 25; entered on: 06/16/16 Sex
--- OUTSIDE RECORDS SUMMARY | 2022-11-24 21:20 | XMS_ITS | Continuity of Care Document ---
:1935 Author Organization [facility] Address [address] [place] [address]- Care Team Providers Name Role Phone Kristin MAGALLANES, Janes Edwards Primary Care Physician Encounter [facility] Date(s): 08/03/20 - 09/02/20 [facility] [address] [place] [address]- [facility] Allergies, Adverse Reactions, Alerts Substance Reaction Severity [...] Vaccine (oldterm) 11/16/04 Given 1Result Comment: local jsxxvhgl6Kikph Note: [facility] skmdjp4Txleo Note: given by simone torres by orhugi8Jtinj Note: done at RZL7Naqfn [facility]: [facility]qmkntk6Cbsbx Note: FLU YWJTJQ5Xkxfz Note: VIS AUEBF0Dwngg Note: GIVEN IN CLINIC LVVT2Loesq Note: Biomedical [facility]Vs[facility]bt Note: Biomedical [employer] [facility] VIS [id number] dsggy16Lhrqve Comment: WRONG CEHTK11Hyrdx Note: historical data Medications amoxicillin 500 mg oral capsule See Instructions, 4 capsule By Mouth One Hour Prior to Dental Procedure dentiist prescribes, # 4 capsule, 5 Refills, Maintenance, 08/03/20 9:37:00 EDT, Capsule, [facility]/pharmacy #[id number], 165, cm, 03/13/20 16:53:00 [...] USE DIRECTED DX BREAST CANCER C50.919 FAX [phone], 12/17/16 10:11:47, Compound Start Date: 12/17/16 Status: [...] tablet, 1 Refills, Maintenance, 06/05/20 12:43:00 EDT, [facility], 165, cm, [...] 08/16/20 12:04:00 EDT, Route to Pharmacy Electronically, [facility], 165, cm, 03/13/20 16:53:00 [...] each, 3 Refills,03/13/20 17:21:00 EDT, [facility]/pharmacy #[id number], 165, cm, 03/13/20 16:53:00 EDT, Height, 68.1, kg, 03/31/18 0:53:00 EDT, Dry Weight Start Date: 03/13/20 Status: OrderedLevoxyl 0.1 mg oral tablet 1 tablet = 0.1 mg, By Mouth, Daily, # 90 tablet, 0 Refills, Maintenance, 08/26/20 7:47:00 EDT, Tablet, [facility], 165, cm, 03/13/20 16:53:00 EDT, Height Start Date: 08/26/20 Status: Orderedlisinopril 20 mg oral tablet 20 mg, 1, tablet, By Mouth, Daily, # 90 tablet, Refills 0, Tot. Refills 0, Maintenance, 08/26/20 7:47:00 EDT, Route to Pharmacy Electronically, [facility], 165, cm, 03/13/20 16:53:00EDT, Height, Dry Weight Start Date: 08/26/20 Status: OrderedMASTECTOMY BRA MASTECTOMY BRA, See Instructions, # 3 each, Refills 1, Tot. Refills 1, Maintenance, USE DIRECTED DX BREAST CA C50.919 FAX [phone], 12/17/16 10:13:30, Compound Start Date: 12/17/16 Status: OrderedMetoprolol Succinate ER 25 mg oral tablet, extended release See Instructions, TAKE 1 TABLET BY MOUTH EVERY DAY, # 90 tablet, 0 Refills, Soft Stop, 08/26/20 7:47:00 EDT, [facility], 165, cm, 03/13/20 16:53:00 [...] mL, 3 Refills, Maintenance, 05/22/20 14:15:00 EDT, [facility]... Start Date: 05/22/20 Status: OrderedPen [place], 31 G x 5 mm BD Ultra [...] Active neuropathy(Confirmed) Vitamin D Deficiency(Confirmed) Active [facility] [id number] 200o nl, declines repeat Social History Social History Type Response Smoking Status Never smoker; Other: Quit sm oking age 25; entered on: 06/16/16 Sex
--- OUTSIDE RECORDS SUMMARY | 2022-11-24 21:20 | XMS_ITS | Continuity of Care Document ---
:1935 Author Organization [facility] Address [address] [place] [address]- Care Team Providers Name Role Phone Janes Foster MD Primary Care Physician [place] [facility] Date[place]s): 03/22/21 - 04/21/21 [facility] [address] [place] [address]- Attending Physician: AdmKate jeffries Admitting Physician: AdmtrKate Referring Physician: Admtr, Ar8 Allergies, Adverse Reactions, Alerts Substance Reaction Severity [...] Vaccine (oldterm) 11/16/04 Given 1Result Comment: local pyvtjlqu8Fpvtq Note: [facility] zhbstg5Cvvut Note: given by simone torres by [id number] Note: done at AMD2Jffkz Note: [facility] ybjfad0Linae Note: FLU QGOFLO8Mafyh Note: VIS NQNHQ4Fsovi Note: GIVEN IN CLINIC NKCD6Itotq Note: Biomedical [employer] Tfqpys38Rcump Note: [facility] [place] [facility] VIS 7848-1578 urdah36Hguedo Comment: WRONG YHEDV37Epeqg Note: historical data Medications amoxicillin 500 mg oral capsule See Instructions, 4 capsule By Mouth One Hour Prior to Dental Procedure dentiist prescribes, # 4 capsule, 5 Refills, Maintenance, 08/03/20 9:37:00 EDT, Capsule, [facility]/pharmacy #[id number], 165, cm, 03/13/20 [...] USE DIRECTED DX BREAST CANCER C50.919 FAX [phone], 12/17/16 10:11:47, Compound Start Date: 12/17/16 Status: [...] tablet, 1 Refills, Maintenance, 10/26/20 9:06:00 EST, [facility], 165, cm, 09/20/20 10:13:00 [...] 03/12/21 13:55:00 EDT, Route to Pharmacy Electronically, [facility], 165, cm, 09/20/20 10:13:00 EST, Height Start Date: 03/12/21 Status: OrderedKlonoPIN 0.5 mg oral tablet 1 tablet = 0.5 mg, By Mouth, 2 times a day, PRN vertigo, # 30 tablet, 0 Refills, Maintenance, 02/14/20 12:08:00 EDT, Tablet, [facility], 165, [...] 1 Refills, Maintenance, 03/19/21 15:59:00 EDT, Tablet, [facility], 165, cm, 09/20/20 10:13:00 EST, Height Start Date: 03/19/21 Status: Orderedlisinopril 20 mg oral tablet 20 mg, 1, tablet, By Mouth, Daily, # 90 tablet, Refills 1, Tot. Refills 1, Maintenance, 03/19/21 15:59:00 EDT, Route to Pharmacy Electronically, [facility], 165, cm, 09/20/20 10:13:00 EST, Height Start Date: 03/19/21 Status: OrderedMASTECTOMY BRA MASTECTOMY BRA, See Instructions, # 3 each, Refills 1, Tot. Refills 1, Maintenance, USE DIRECTED DX BREAST CA C50.919 FAX [phone], 12/17/16 10:13:30, Compound Start Date: 12/17/16 Status: OrderedMetoprolol Succinate ER 25 mg oral tablet, extended release See Instructions, TAKE 1 TABLET BY MOUTH EVERY DAY, # 90 tablet, 1 Refills, Soft Stop, 03/19/21 15:59:00 EDT, [facility], 165, cm, 09/20/20 10:13:00 [...] 3 Refil... Start Date: 01/23/21 Status: OrderedPen [place], 31 G x 5 mm BD Ultra [...] 1 Refills, Soft Stop, 01/24/21 10:05:00 EST, [facility], 165, cm, 09/20/20 10:13:00 [...] Active neuropathy(Confirmed) Vitamin D Deficiency(Confirmed) Active [facility] [id number] 200o nl, declines repeat Social History Social History Type Response Smoking Status Never smoker; Other: Quit sm oking age 25; entered on: 06/16/16 Sex
--- OUTSIDE RECORDS SUMMARY | 2022-11-24 21:20 | XMS_ITS | Continuity of Care Document ---
:1935 Author Organization [facility] Address [address] [place] [address]- Care Team Providers Name Role Phone Janes Foster MD Primary Care Physician Encounter [facility] Date(s): 05/25/21 - 09/22/21 [facility] [address] [place] [address]- Attending Physician: Janes Foster MD Allergies, Adverse [...] Vaccine (oldterm) 11/16/04 Given 1Result Comment: [facility] #3 [id number] Comment: WLG8Ngwpu Note: done at KVW4Qjoeq Note: [facility] mhvwia8Qkhqp Note: FLU NVSHYN6Axvon Note: VIS EPTCS5Kjnpg Note: GIVEN IN CLINIC HMAO9Fhngsr Comment: local ajcfxonc1Tgotw Note: [facility] qieplf08Rxljb Note: given by simone doc by umledx69Kwedq Note: Biomedical [facility] HospitalDsmzul81Dwbdc Note: [facility] VIS 9675-6456 vzivk28Vebxfb Comment: WRONG YULVC64Ggtwu Note: historical data Medications amoxicillin 500 mg oral capsule See Instructions, 4 capsule By Mouth One Hour Prior to Dental Procedure dentiist prescribes, # 4 capsule, 5 Refills, Maintenance, 08/03/20 9:37:00 EDT, Capsule, [facility]/pharmacy #[id number], 165, cm, 03/13/20 16:53:00 EDT, [...] USE DIRECTED DX BREAST CANCER C50.919 FAX [phone], 12/17/16 10:11:47, Compound Start Date: 12/17/16 Status: [...] tablet, 1 Refills, Maintenance, 10/26/20 9:06:00 EST, [facility], 165, cm, 09/20/20 10:13:00 [...] Replace Required Details, Route to Pharmacy Electronically, [facility]/pharmacy #[id number], 165, cm, 03/22/21 10:38:00 EDT,... Start Date: 05/30/21 Status: OrderedKlonoPIN 0.5 mg oral tablet 1 tablet = 0.5 mg, By Mouth, 2 times a day, PRN vertigo, # 30 tablet, 0 Refills, Maintenance, 02/14/20 12:08:00 EDT, Tablet, [facility]/pharmacy #[id number], 165, cm, 09/06/19 10:39:00 EDT, Height, 68.1, kg, 03/31/18 0:53:00 EDT, Dry Weight Start Date: 02/14/20 Status: OrderedLantus Solostar Pen 100 units/mL subcutaneous solution See Instructions, INJECT 17 UNITS SUBCUTANEOUSLY DAILY. ROTATE INJECTION SITES, # 5 each, 1 Refills,08/26/21 9:36:00 EDT, [facility]/pharmacy #7111, 165, cm, 03/22/21 10:38:00 EDT, Height Start Date: 08/26/21 Status: OrderedLevoxyl 0.1 mg oral tablet 1 tablet = 0.1 mg, By Mouth, Daily, # 90 tablet, 0 Refills, Maintenance, 08/13/21 16:53:00 EDT, Tablet, [facility], 165, cm, 03/22/21 10:38:00 EDT, Height Start Date: 08/13/21 Status: Orderedlisinopril 20 mg oral tablet 20 mg, 1, tablet, By Mouth, Daily, # 90 tablet, Refills 0, Tot. Refills 0, Maintenance, 08/13/21 16:53:00 EDT, Route to Pharmacy Electronically, [facility], 165, cm, 03/22/21 10:38:00 EDT, Height Start Date: 08/13/21 Status: OrderedMASTECTOMY BRA MASTECTOMY BRA, See Instructions, # 3 each, Refills 1, Tot. Refills 1, Maintenance, USE DIRECTED DX BREAST CA C50.919 FAX [phone], 12/17/16 10:13:30, Compound Start Date: 12/17/16 Status: OrderedMetoprolol Succinate ER 25 mg oral tablet, extended release See Instructions, TAKE 1 TABLET BY MOUTH EVERY DAY, # 90 tablet, 0 Refills, Soft Stop, 08/13/21 16:53:00 EDT, [facility], 165, cm, 03/22/21 10:38:00 [...] OFFICE, # 45 Unknown,1 Refills, [facility], 165, cm, 03/22/21 10:38:0... Start Date: 08/20/21 Status: OrderedPen [place], 31 G x 5 mm BD Ultra [...] 3 Refills, Maintenance, 06/18/21 13:50:00 EDT, Tablet, [facility]/pharmacy #7111, 165, cm, 03/22/21 10:38:00 EDT, [...] Active neuropathy(Confirmed) Vitamin D Deficiency(Confirmed) Active [facility] [id number] 200o nl, declines repeat Social History Social History Type Response Smoking Status Never smoker; Other: Quit sm oking age 25; entered on: 06/16/16 Sex
--- OUTSIDE RECORDS SUMMARY | 2022-11-24 21:20 | XMS_ITS | Continuity of Care Document ---
:1935 Author Organization [facility] Address [address] [place] [address]- Care Team Providers Name Role Phone Kristin MAGALLANES, Janes Edwards Primary Care Physician Encounter [facility] Date(s): 12/24/20 - 01/23/21 [facility] [address] [place] [address]- Allergies, Adverse Reactions, Alerts Substance Reaction Severity [...] Vaccine (oldterm) 11/16/04 Given 1Result Comment: local gfjsbekr4Yizoj Note: [facility] in rwmzuf6Rqxwe Note: given by simone torres by kkxssm7Xxkxc Note: done at OOK7Libng [facility]: [facility]Aeejr [facility]: FLU ZIZRQE1Cjcum Note: VIS WERGE2Npvhl Note: GIVEN IN CLINIC OBTA8Fdurf Note: Biomedical [employer] [place]35Mmbfi Note: [facility] VIS 4821-7152 fteho85Jvajwa Comment: WRONG ZFZHT08Khjqp Note: historical data Medications amoxicillin 500 mg oral capsule See Instructions, 4 capsule By Mouth One Hour Prior to Dental Procedure dentiist prescribes, # 4 capsule, 5 Refills, Maintenance, 08/03/20 9:37:00 EDT, Capsule, [facility]/pharmacy #7111, 165, cm, 03/13/20 16:53:00 EDT, [...] USE DIRECTED DX BREAST CANCER C50.919 FAX [phone], 12/17/16 10:11:47, Compound Start Date: 12/17/16 Status: [...] tablet, 1 Refills, Maintenance, 10/26/20 9:06:00 EST, [facility], 165, cm, 09/20/20 [...] 11/02/20 13:24:00 EST, Route to Pharmacy Electronically, [facility], 165, cm, 09/20/20 10:13:00 EST, Height Start Date: 11/02/20 Status: OrderedKlonoPIN 0.5 mg oral tablet 1 tablet = 0.5 mg, By Mouth, 2 times a day, PRN vertigo, # 30 tablet, 0 Refills, Maintenance, 02/14/20 12:08:00 EDT, Tablet, [facility]/pharmacy #7111, 165, cm, 09/06/19 10:39:00 EDT, Height, 68.1, kg, 03/31/18 0:53:00 EDT, Dry Weight Start Date: 02/14/20 Status: OrderedLantus Solostar Pen 100 units/mL subcutaneous solution See Instructions, INJECT 17 UNITS SUBCUTANEOUSLY DAILY. ROTATE INJECTION SITES, # 5 each, 3 Refills,03/13/20 17:21:00 EDT, [facility]/pharmacy #7111, 165, cm, 03/13/20 16:53:00 EDT, Height, 68.1, kg, 03/31/18 0:53:00 EDT, Dry Weight Start Date: 03/13/20 Status: OrderedLevoxyl 0.1 mg oral tablet 1 tablet = 0.1 mg, By Mouth, Daily, # 90 tablet, 1 Refills, Maintenance, 10/30/20 8:37:00 EST, Tablet, [facility], 165, cm, 09/20/20 10:13:00 EST, Height Start Date: 10/30/20 Status: Orderedlisinopril 20 mg oral tablet 20 mg, 1, tablet, By Mouth, Daily, # 90 tablet, Refills 1, Tot. Refills 1, Maintenance, 10/30/20 8:37:00 EST, Route to Pharmacy Electronically, [facility], 165, cm, 09/20/20 10:13:00EST, Height Start Date: 10/30/20 Status: OrderedMASTECTOMY BRA MASTECTOMY BRA, See Instructions, # 3 each, Refills 1, Tot. Refills 1, Maintenance, USE DIRECTED DX BREAST CA C50.919 FAX [phone], 12/17/16 10:13:30, Compound Start Date: 12/17/16 Status: OrderedMetoprolol Succinate ER 25 mg oral tablet, extended release See Instructions, TAKE 1 TABLET BY MOUTH EVERY DAY, # 90 tablet, 1 Refills, Soft Stop, 10/30/20 8:38:00 EST, [facility], 165, cm, 09/20/20 10:13:00 [...] 3 Refil... Start Date: 01/23/21 Status: OrderedPen [place], 31 G x 5 mm BD Ultra [...] 1 Refills, Soft Stop, 08/26/20 7:47:00 EDT, [facility], 165, cm, 03/13/20 16:53:00 [...] Active neuropathy(Confirmed) Vitamin D Deficiency(Confirmed) Active [facility] [id number] 200o nl, declines repeat Social History Social History Type Response Smoking Status Never smoker; Other: Quit sm oking age 25; entered on: 06/16/16 Sex
--- OUTSIDE RECORDS SUMMARY | 2022-11-24 21:20 | XMS_ITS | Continuity of Care Document ---
:1935 Author Organization [facility] Address [address] [place] [address]- Care Team Providers Name Role Phone Janes Foster MD Primary Care Physician [facility]counter [facility] Date(s): 07/08/20 - 08/07/20 [facility] [address] [place] [address]- [facility] Allergies, Adverse Reactions, Alerts Substance Reaction [...] (oldterm) 11/16/04 Given 1Admin Note: [facility] rvystq5Zqwne Note: given by simone doc by [id number] Note: done at ZUZ9Lgjaf Note: [facility] lymhzd8Ezwki Note: FLU HISQQJ4Tnwqv Note: VIS GIVEN7 Admin Note: GIVEN IN CLINIC NOQO5Ucukd Note: Biomedical Jason of Zdclau6Ifusb Note: Biomedical Jason [facility] VIS 2046-5774 wdzbi46Owrfmi Comment: WRONG RASLS46Hbldq Note: historical data Medications amoxicillin 500 mg oral capsule See Instructions, 4 capsule By Mouth One Hour Prior to Dental Procedure dentiist prescribes, # 4 capsule, 5 Refills, Maintenance, 08/03/20 9:37:00 EDT, Capsule, [facility]/pharmacy #7111, 165, cm, 03/13/20 16:53:00 EDT, Height Start Date: 08/03/20 Status: OrderedAspirin Enteric Coated 81 mg oral delayed release tablet See Instructions, # 90 tablet, Refills 3 Tot. Refills 3, TAKE 1 TABLET BY MOUTH EVERY DAY, [facility]/pharmacy #7111 Start Date: 06/27/19 Status: OrderedBREAST PROSTHETIC BREAST PROSTHETIC, See Instructions, # 1 each, Refills 0, Tot. Refills 0, Maintenance, USE DIRECTED DX BREAST CANCER C50.919 FAX [phone], 12/17/16 10:11:47, Compound Start Date: 12/17/16 Status: OrderedDepakote ER 500 mg oral tablet, extended release 1 tablet = 500 mg, By Mouth, Daily, # 90 tablet, 1 Refills, Maintenance, 12/30/19 13:35:00 EST, ER Tablet, [facility]/pharmacy #7111, 165, cm, 09/06/19 10:39:00 [...] tablet, 1 Refills, Maintenance, 06/05/20 12:43:00 EDT, [facility], 165, cm, [...] 06/05/20 16:00:00 EDT, Route to Pharmacy Electronically, [facility], 165, cm, 03/13/20 16:53:00 EDT, Height Start Date: 06/05/20 Status: OrderedKlonoPIN 0.5 mg oral tablet 1 tablet = 0.5 mg, By Mouth, 2 times a day, PRN vertigo, # 30 tablet, 0 Refills, Maintenance, 02/14/20 12:08:00 EDT, Tablet, [facility]/pharmacy #7111, 165, cm, 09/06/19 10:39:00 EDT, Height, 68.1, kg, 03/31/18 0:53:00 EDT, Dry Weight Start Date: 02/14/20 Status: OrderedLantus Solostar Pen 100 units/mL subcutaneous solution See Instructions, INJECT 17 UNITS SUBCUTANEOUSLY DAILY. ROTATE INJECTION SITES, # 5 each, 3 Refills,03/13/20 17:21:00 EDT, [facility]/pharmacy #7111, 165, cm, 03/13/20 16:53:00 EDT, Height, 68.1, kg, 03/31/18 0:53:00 EDT, Dry Weight Start Date: 03/13/20 Status: OrderedLevoxyl 0.1 mg oral tablet 1 tablet = 0.1 mg, By Mouth, Daily, # 90 tablet, 1 Refills, Maintenance, 04/02/20 12:46:00 EDT, Tablet, [facility], 165, cm, 03/13/20 16:53:00 EDT, Height Start Date: 04/02/20 Status: Orderedlisinopril 20 mg oral tablet 20 mg, 1, tablet, By Mouth, Daily, # 90 tablet, Refills 1, Tot. Refills 1, Maintenance, 04/02/20 12:50:00 EDT, Route to Pharmacy Electronically, [facility], 165, cm, 03/13/20 16:53:00 EDT, Height, Dry Weight Start Date: 04/02/20 Status: OrderedMASTECTOMY BRA MASTECTOMY BRA, See Instructions, # 3 each, Refills 1, Tot. Refills 1, Maintenance, USE DIRECTED DX BREAST CA C50.919 FAX [phone], 12/17/16 10:13:30, Compound Start Date: 12/17/16 Status: OrderedMetoprolol Succinate ER 25 mg oral tablet, extended release See Instructions, TAKE 1 TABLET BY MOUTH EVERY DAY, # 90 tablet, 1 Refills, Soft Stop, 04/02/20 12:50:00 EDT, [facility], 165, cm, [...] 30 mL, 3 Refills, Maintenance, 05/22/20 14:15:00 EDT,[facility], 251- 280=7 units,28... Start Date: 05/22/20 Status: OrderedPen [place], 31 G x 5 mm BD Ultra [...] with Active neuropathy(Confirmed) Vitamin D Deficiency(Confirmed) Active [facility] [id number] 200o nl, declines repeat Social History Social History Type Response Smoking Status Never smoker; Other: Quit sm oking age 25; entered on: 06/16/16 Sex
--- OUTSIDE RECORDS SUMMARY | 2022-11-24 21:20 | XMS_ITS | Continuity of Care Document ---
:1935 Author Organization [facility] Address [address] [place] [address]- Care Team Providers Name Role Phone Kristin MAGALLANES, Janes Edwards Primary Care Physician [facility] Date[facility]): 11/[facility]20 - 12/02/20 [facility] [address] [place] [address]- Allergies, Adverse Reactions, Alerts Substance Reaction Severity [...] Vaccine (oldterm) 11/16/04 Given 1Result Comment: local bgxrgbif3Jgljj Note: [facility] dbqsdo3Yvkeb Note: given by simone torres by iahpkl0Vimuz Note: done at WGQ5Brucv Note: [facility]yesqxd5Cwvma Note: FLU UUEIOV4Cutup Note: VIS XOWAH9Ymugk Note: GIVEN IN CLINIC ICQU4Gnlla Note: Biomedical [facility]Jqzimu71Egtfs Note: Biomedical [facility] VIS [phone] [id number] Comment: WRONG FYEJG84Nqyka Note: historical data Medications amoxicillin 500 mg oral capsule See Instructions, 4 capsule By Mouth One Hour Prior to Dental Procedure dentiist prescribes, # 4 capsule, 5 Refills, Maintenance, 08/03/20 9:37:00 EDT, Capsule, [facility]/pharmacy #[id number], 165, cm, 03/13/20 16:53:00 EDT, Height Start Date: 08/03/20 Status: OrderedAspirin Enteric Coated 81 mg oral delayed release tablet See Instructions, # 90 tablet, Refills 3 Tot. Refills 3, TAKE 1 TABLET BY MOUTH EVERY DAY, [facility]/pharmacy #[id number] Start Date: 06/27/19 Status: OrderedBREAST PROSTHETIC BREAST PROSTHETIC, See Instructions, # 1 each, Refills 0, Tot. Refills 0, Maintenance, USE DIRECTED DX BREAST CANCER C50.919 FAX [phone], 12/17/16 10:11:47, Compound Start Date: 12/17/16 Status: OrderedDepakote ER 500 mg oral tablet, extended release 1 tablet = 500 mg, By Mouth, Daily, # 90 tablet, 1 Refills, Maintenance, 12/30/19 13:35:00 EST, ER Tablet, [facility]/pharmacy #[id number], 165, cm, 09/06/19 10:39:00 EDT, [...] tablet, 1 Refills, Maintenance, 10/26/20 9:06:00 EST, [facility], 165, cm, 09/20/20 10:13:00 [...] 11/02/20 13:24:00 EST, Route to Pharmacy Electronically, [facility], 165, cm, 09/20/20 10:13:00 EST, Height Start Date: 11/02/20 Status: OrderedKlonoPIN 0.5 mg oral tablet 1 tablet = 0.5 mg, By Mouth, 2 times a day, PRN vertigo, # 30 tablet, 0 Refills, Maintenance, 02/14/20 12:08:00 EDT, Tablet, [facility]/pharmacy #[id number], 165, cm, 09/06/19 10:39:00 EDT, Height, 68.1, kg, 03/31/18 0:53:00 EDT, Dry Weight Start Date: 02/14/20 Status: OrderedLantus Solostar Pen 100 units/mL subcutaneous solution See Instructions, INJECT 17 UNITS SUBCUTANEOUSLY DAILY. ROTATE INJECTION SITES, # 5 each, 3 Refills,03/13/20 17:21:00 EDT, [facility]/pharmacy #[id number], 165, cm, 03/13/20 16:53:00 EDT, Height, 68.1, kg, 03/31/18 0:53:00 EDT, Dry Weight Start Date: 03/13/20 Status: OrderedLevoxyl 0.1 mg oral tablet 1 tablet = 0.1 mg, By Mouth, Daily, # 90 tablet, 1 Refills, Maintenance, 10/30/20 8:37:00 EST, Tablet, [facility], 165, cm, 09/20/20 10:13:00 EST, Height Start Date: 10/30/20 Status: Orderedlisinopril 20 mg oral tablet 20 mg, 1, tablet, By Mouth, Daily, # 90 tablet, Refills 1, Tot. Refills 1, Maintenance, 10/30/20 8:37:00 EST, Route to Pharmacy Electronically, [facility], 165, cm, 09/20/20 10:13:00EST, Height Start Date: 10/30/20 Status: OrderedMASTECTOMY BRA MASTECTOMY BRA, See Instructions, # 3 each, Refills 1, Tot. Refills 1, Maintenance, USE DIRECTED DX BREAST CA C50.919 FAX [phone], 12/17/16 10:13:30, Compound Start Date: 12/17/16 Status: OrderedMetoprolol Succinate ER 25 mg oral tablet, extended release See Instructions, TAKE 1 TABLET BY MOUTH EVERY DAY, # 90 tablet, 1 Refills, Soft Stop, 10/30/20 8:38:00 EST, [facility], 165, cm, 09/20/20 10:13:00 [...] 3 Refil... Start Date: 09/26/20 Status: OrderedPen [place], 31 G x 5 mm BD Ultra [...] with Active neuropathy(Confirmed) Vitamin D Deficiency(Confirmed) Active [facility] [id number] 200o nl, declines repeat Social History Social History Type Response Smoking Status Never smoker; Other: Quit sm oking age 25; entered on: 06/16/16 Sex
--- OUTSIDE RECORDS SUMMARY | 2022-11-24 21:20 | XMS_ITS | Continuity of Care Document ---
:1935 Author Organization [facility] Address [address] [place] [address]- Care Team Providers Name Role Phone Janes Foster MD Primary Care Physician Encounter [facility] Date(s): 07/12/20 - 08/11/20 [facility] [address] [place] [id number] [facility] Attending Physician: Kate Sr Admitting Physician: Kate Sr Referring Physician: AdmtrKate Allergies, Adverse Reactions, Alerts Substance Reaction Severity Status NKA Active Immunizations Given and Recorded Vaccine Date Status Refusal Reason Influenza Virus Vaccine (oldterm) 07/30/20 Recorded Influenza Virus Vaccine (oldterm) 08/13/19 Recorded Influenza Virus Vaccine (oldterm)1 08/16/17 Given Influenza Virus Vaccine (oldterm)2 08/03/09 Given tetanus/diphtheria/pertussis, acel(Tdap) 09/06/19 Given influenza [...] (oldterm) 11/16/04 Given 1Admin Note: [facility] fgemkn5Utrnj Note: given by simone doc by [id number] Note: done at NLL8Eawip Note: [facility] gjknxj8Pivjl Note: FLU UEFANM2Vhisu Note: VIS GIVEN7 Admin Note: GIVEN IN CLINIC DERB6Dvjpy Note: Biomedical [facility] OaklandTrggie6Vmkhq Note: Biomedical [facility] VIS [phone] [id number] Comment: WRONG RENEY75Xsxwn Note: historical data Medications amoxicillin 500 mg oral capsule See Instructions, 4 capsule By Mouth One Hour Prior to Dental Procedure dentiist prescribes, # 4 capsule, 5 Refills, Maintenance, 08/03/20 9:37:00 EDT, Capsule, [facility]/pharmacy #[id number], 165, cm, 03/13/20 16:53:00 EDT, Height Start Date: 08/03/20 Status: OrderedAspirin Enteric Coated 81 mg oral delayed release tablet See Instructions, # 90 tablet, Refills 3 Tot. Refills 3, TAKE 1 TABLET BY MOUTH EVERY DAY, [facility]/pharmacy #[id number] Start Date: 06/27/19 Status: OrderedBREAST PROSTHETIC BREAST PROSTHETIC, See Instructions, # 1 each, Refills 0, Tot. Refills 0, Maintenance, USE DIRECTED DX BREAST CANCER C50.919 FAX [phone], 12/17/16 10:11:47, Compound Start Date: 12/17/16 Status: OrderedDepakote ER 500 mg oral tablet, extended release 1 tablet = 500 mg, By Mouth, Daily, # 90 tablet, 1 Refills, Maintenance, 12/30/19 13:35:00 EST, ER Tablet, [facility]/pharmacy #[id number], 165, cm, 09/06/19 [...] tablet, 1 Refills, Maintenance, 06/05/20 12:43:00 EDT, [facility], 165, cm, 03/13/20 16:53:00 [...] 06/05/20 16:00:00 EDT, Route to Pharmacy Electronically, [facility], 165, cm, 03/13/20 16:53:00 EDT, Height Start Date: 06/05/20 Status: OrderedKlonoPIN 0.5 mg oral tablet 1 tablet = 0.5 mg, By Mouth, 2 times a day, PRN vertigo, # 30 tablet, 0 Refills, Maintenance, 02/14/20 12:08:00 EDT, Tablet, [facility]/pharmacy #[id number], 165, cm, 09/06/19 10:39:00 EDT, Height, 68.1, kg, 03/31/18 0:53:00 EDT, Dry Weight Start Date: 02/14/20 Status: OrderedLantus Solostar Pen 100 units/mL subcutaneous solution See Instructions, INJECT 17 UNITS SUBCUTANEOUSLY DAILY. ROTATE INJECTION SITES, # 5 each, 3 Refills,03/13/20 17:21:00 EDT, [facility]/pharmacy #[id number], 165, cm, 03/13/20 16:53:00 EDT, Height, 68.1, kg, 03/31/18 0:53:00 EDT, Dry Weight Start Date: 03/13/20 Status: OrderedLevoxyl 0.1 mg oral tablet 1 tablet = 0.1 mg, By Mouth, Daily, # 90 tablet, 1 Refills, Maintenance, 04/02/20 12:46:00 EDT, Tablet, [facility], 165, cm, 03/13/20 16:53:00 EDT, Height Start Date: 04/02/20 Status: Orderedlisinopril 20 mg oral tablet 20 mg, 1, tablet, By Mouth, Daily, # 90 tablet, Refills 1, Tot. Refills 1, Maintenance, 04/02/20 12:50:00 EDT, Route to Pharmacy Electronically, [facility], 165, cm, 03/13/20 16:53:00 EDT, Height, Dry Weight Start Date: 04/02/20 Status: OrderedMASTECTOMY BRA MASTECTOMY BRA, See Instructions, # 3 each, Refills 1, Tot. Refills 1, Maintenance, USE DIRECTED DX BREAST CA C50.919 FAX [phone], 12/17/16 10:13:30, Compound Start Date: 12/17/16 Status: OrderedMetoprolol Succinate ER 25 mg oral tablet, extended release See Instructions, TAKE 1 TABLET BY MOUTH EVERY DAY, # 90 tablet, 1 Refills, Soft Stop, 04/02/20 12:50:00 EDT, [facility], 165, cm, 03/13/20 16:53:00 [...] mL, 3 Refills, Maintenance, 05/22/20 14:15:00 EDT, [facility]... Start Date: 05/22/20 Status: OrderedPen [place], 31 G x 5 mm BD Ultra [...] Active neuropathy(Confirmed) Vitamin D Deficiency(Confirmed) Active 1H [id number] 200o nl, declines repeat Social History Social History Type Response Smoking Status Never smoker; Other: Quit sm oking age 25; entered on: 06/16/16 Sex
--- OUTSIDE RECORDS SUMMARY | 2022-11-24 21:20 | XMS_ITS | Continuity of Care Document ---
:1935 Author Organization [facility] Address [address] [place] [address]- Care Team Providers Name Role Phone Janes Foster MD Primary Care Physician [facility]counter [facility] Date[facility]s): 08/09/20 - 09/08/20 [facility] [address] [place] [address]- [facility] Allergies, Adverse Reactions, Alerts Substance [...] Vaccine (oldterm) 11/16/04 Given 1Result Comment: local pnaxiarr3Zlajj Note: [facility] rgpkan6Xkbza Note: given by simone torres by kwkjgg5Gdguh Note: done at RCU0Djwwq [facility]: [facility]Kcwmp [facility]: FLU FSFCFY6Apzhy Note: VIS JSRBE6Hqsin Note: GIVEN IN CLINIC UKHV2Wjtre Note: Biomedical Jason [facility] HospitalEyxdfr83Lldlc Note: Biomedical [facility] VIS [phone] atuwc57Yyngix Comment: WRONG [id number] Note: historical data Medications amoxicillin 500 mg oral capsule See Instructions, 4 capsule By Mouth One Hour Prior to Dental Procedure dentiist prescribes, # 4 capsule, 5 Refills, Maintenance, 08/03/20 9:37:00 EDT, Capsule, [facility]/pharmacy #[id number], 165, cm, 03/13/20 16:53:00 EDT, Height Start Date: 08/03/20 Status: OrderedAspirin Enteric Coated 81 mg oral delayed release tablet See Instructions, # 90 tablet, Refills 3 Tot. Refills 3, TAKE 1 TABLET BY MOUTH EVERY DAY, [facility]/pharmacy #[id number] Start Date: 06/27/19 Status: OrderedBREAST PROSTHETIC BREAST PROSTHETIC, See Instructions, # 1 each, Refills 0, Tot. Refills 0, Maintenance, USE DIRECTED DX BREAST CANCER C50.919 FAX [phone], 12/17/16 10:11:47, Compound Start Date: 12/17/16 Status: OrderedDepakote ER 500 mg oral tablet, extended release 1 tablet = 500 mg, By Mouth, Daily, # 90 tablet, 1 Refills, Maintenance, 12/30/19 13:35:00 EST, ER Tablet, [facility]/pharmacy #7111, 165, cm, 09/06/19 10:39:00 EDT, Height, [...] tablet, 1 Refills, Maintenance, 06/05/20 12:43:00 EDT, [facility], 165, cm, 03/13/20 [...] 08/16/20 12:04:00 EDT, Route to Pharmacy Electronically, [facility], 165, cm, 03/13/20 16:53:00 EDT, Height Start Date: 08/16/20 Status: OrderedKlonoPIN 0.5 mg oral tablet 1 tablet = 0.5 mg, By Mouth, 2 times a day, PRN vertigo, # 30 tablet, 0 Refills, Maintenance, 02/14/20 12:08:00 EDT, Tablet, [facility]/pharmacy #[id number], 165, cm, 09/06/19 10:39:00 EDT, Height, 68.1, kg, 03/31/18 0:53:00 EDT, Dry Weight Start Date: 02/14/20 Status: OrderedLantus Solostar Pen 100 units/mL subcutaneous solution See Instructions, INJECT 17 UNITS SUBCUTANEOUSLY DAILY. ROTATE INJECTION SITES, # 5 each, 3 Refills,03/13/20 17:21:00 EDT, [facility]/pharmacy #7111, 165, cm, 03/13/20 16:53:00 EDT, Height, 68.1, kg, 03/31/18 0:53:00 EDT, Dry Weight Start Date: 03/13/20 Status: OrderedLevoxyl 0.1 mg oral tablet 1 tablet = 0.1 mg, By Mouth, Daily, # 90 tablet, 0 Refills, Maintenance, 08/26/20 7:47:00 EDT, Tablet, [facility], 165, cm, 03/13/20 16:53:00 EDT, Height Start Date: 08/26/20 Status: Orderedlisinopril 20 mg oral tablet 20 mg, 1, tablet, By Mouth, Daily, # 90 tablet, Refills 0, Tot. Refills 0, Maintenance, 08/26/20 7:47:00 EDT, Route to Pharmacy Electronically, [facility], 165, cm, 03/13/20 16:53:00EDT, Height, Dry Weight Start Date: 08/26/20 Status: OrderedMASTECTOMY BRA MASTECTOMY BRA, See Instructions, # 3 each, Refills 1, Tot. Refills 1, Maintenance, USE DIRECTED DX BREAST CA C50.919 FAX [phone], 12/17/16 10:13:30, Compound Start Date: 12/17/16 Status: OrderedMetoprolol Succinate ER 25 mg oral tablet, extended release See Instructions, TAKE 1 TABLET BY MOUTH EVERY DAY, # 90 tablet, 0 Refills, Soft Stop, 08/26/20 7:47:00 EDT, [facility], 165, cm, 03/13/20 16:53:00 [...] mL, 3 Refills, Maintenance, 05/22/20 14:15:00 EDT, [facility]... Start Date: 05/22/20 Status: OrderedPen [place], 31 G x 5 mm BD Ultra [...] Active neuropathy(Confirmed) Vitamin D Deficiency(Confirmed) Active [facility] [id number] 200o nl, declines repeat Social History Social History Type Response Smoking Status Never smoker; Other: Quit sm oking age 25; entered on: 06/16/16 Sex
--- OUTSIDE RECORDS SUMMARY | 2022-11-24 21:20 | XMS_ITS | Continuity of Care Document ---
:1935 Author Organization [facility] Address [address] [place] [address]- Care Team Providers Name Role Phone Kristin MAGALLANES, Janes Edwards Primary Care Physician [facility] Date[facility]s): 08/13/21 - 09/12/21 [facility] [address] [place] [address]- Allergies, Adverse Reactions, Alerts Substance Reaction Severity [...] Pneumococcal Vaccine (oldterm) 11/16/04 Given 1Result Comment: [facility] Booster #3 uzzvmlf2Lfmwjh Comment: XKF0Wplbp Note: done at RYA8Iougp Note: [facility] ynkasl4Ziled Note: FLU OLAKKR5Nkokp Note: VIS NPGXT8Dceyn Note: GIVEN IN CLINIC IUCA4Mqvicn Comment: local aeglpdwv7Ftlnh Note: [facility] ezaopc00Agqmq Note: given by simone doc by [id number] Note: Biomedical [employer] of Byqdqj05Ratca Note: [employer] [place] VIS [phone] eylim41Aeojsf Comment: WRONG QWVQT70Wkhcg Note: historical data Medications amoxicillin 500 mg [...] USE DIRECTED DX BREAST CANCER C50.919 FAX [phone], 12/17/16 10:11:47, Compound Start Date: 12/17/16 Status: [...] tablet, 1 Refills, Maintenance, 10/26/20 9:06:00 EST, [facility], 165, cm, 09/20/20 [...] Replace Required Details, Route to Pharmacy Electronically, [facility]/pharmacy #[id number], 165, cm, 03/22/21 10:38:00 EDT,... Start Date: 05/30/21 Status: OrderedKlonoPIN 0.5 mg oral tablet 1 tablet = 0.5 mg, By Mouth, 2 times a day, PRN vertigo, # 30 tablet, 0 Refills, Maintenance, 02/14/20 12:08:00 EDT, Tablet, [facility]/pharmacy #[id number], 165, cm, 09/06/19 10:39:00 EDT, Height, 68.1, kg, 03/31/18 0:53:00 EDT, Dry Weight Start Date: 02/14/20 Status: OrderedLantus Solostar Pen 100 units/mL subcutaneous solution See Instructions, INJECT 17 UNITS SUBCUTANEOUSLY DAILY. ROTATE INJECTION SITES, # 5 each, 1 Refills,08/26/21 9:36:00 EDT, [facility]/pharmacy #7111, 165, cm, 03/22/21 10:38:00 EDT, Height Start Date: 08/26/21 Status: OrderedLevoxyl 0.1 mg oral tablet 1 tablet = 0.1 mg, By Mouth, Daily, # 90 tablet, 0 Refills, Maintenance, 08/13/21 16:53:00 EDT, Tablet, [facility], 165, cm, 03/22/21 10:38:00 EDT, Height Start Date: 08/13/21 Status: Orderedlisinopril 20 mg oral tablet 20 mg, 1, tablet, By Mouth, Daily, # 90 tablet, Refills 0, Tot. Refills 0, Maintenance, 08/13/21 16:53:00 EDT, Route to Pharmacy Electronically, [facility], 165, cm, 03/22/21 10:38:00 EDT, Height Start Date: 08/13/21 Status: OrderedMASTECTOMY BRA MASTECTOMY BRA, See Instructions, # 3 each, Refills 1, Tot. Refills 1, Maintenance, USE DIRECTED DX BREAST CA C50.919 FAX [phone], 12/17/16 10:13:30, Compound Start Date: 12/17/16 Status: OrderedMetoprolol Succinate ER 25 mg oral tablet, extended release See Instructions, TAKE 1 TABLET BY MOUTH EVERY DAY, # 90 tablet, 0 Refills, Soft Stop, 08/13/21 16:53:00 EDT, [facility], 165, cm, 03/22/21 10:38:00 [...] OFFICE, # 45 Unknown,1 Refills, [id number], 165, cm, 03/22/21 10:38:0... Start Date: 08/20/21 Status: OrderedPen [place], 31 G x 5 mm BD [...] 3 Refills, Maintenance, 06/18/21 13:50:00 EDT, Tablet, [facility]/pharmacy #7111, 165, cm, 03/22/21 [...] Active neuropathy(Confirmed) Vitamin D Deficiency(Confirmed) Active 1H [id number] 200o nl, declines repeat Social History Social History Type Response Smoking Status Never smoker; Other: Quit sm okester age 25; entered on: 06/16/16 Sex
--- OUTSIDE RECORDS SUMMARY | 2022-11-24 21:20 | XMS_ITS | Continuity of Care Document ---
:1935 Author Organization [facility] Address [address] [place] [address]- Care Team Providers Name Role Phone Kristin MAGALLANES, Janes Edwards Primary Care Physician [facility] Date[facility]s): 10/25/21 - 11/24/21 [facility] [address] [place] [address]- Allergies, Adverse Reactions, Alerts Substance Reaction Severity [...] Pneumococcal Vaccine (oldterm) 11/16/04 Given 1Result Comment: [facility] Booster #3 ugbygfg6Hmvgyg Comment: QHK6Fxpcl Note: done at QGB1Yiofb Note: [facility] hcnlzy1Ivfhb Note: FLU HMKTPI1Ukops Note: VIS YHNHE3Yuaxi Note: GIVEN IN CLINIC LGXF0Fuksgo Comment: local yargfmuf1Wxyok Note: [facility] pcfspi63Knyle Note: given by simone doc by qvoofs71Mudta Note: Biomedical [employer] of Hvoyhd42Olgyo Note: [facility] [place] VIS [phone] hbcmu09Ihomfy Comment: WRONG LJVMN85Rzvse Note: historical data Medications amoxicillin 500 mg [...] USE DIRECTED DX BREAST CANCER C50.919 FAX [phone], 12/17/16 10:11:47, Compound Start Date: 12/17/16 Status: [...] tablet, 1 Refills, Maintenance, 10/26/20 9:06:00 EST, [facility], 165, cm, 09/20/20 10:13:00 [...] Replace Required Details, Route to Pharmacy Electronically, [facility], resend to [facility] per... Start Date: 10/25/21 Status: OrderedLantus Solostar Pen 100 units/mL subcutaneous solution See Instructions, INJECT 17 UNITS SUBCUTANEOUSLY DAILY. ROTATE INJECTION SITES, # 5 each, 1 Refills,08/26/21 9:36:00 EDT, [facility]/pharmacy #7111, 165, cm, 03/22/21 10:38:00 EDT, Height Start Date: 08/26/21 Status: Orderedlevothyroxine 0.1 mg oral tablet 1 tablet, By Mouth, Daily, # 90 tablet, 1 Refills, [facility], 165, cm, 03/22/21 10:38:00 EDT, Height Start Date: 10/15/21 Status: Orderedlisinopril 20 mg oral tablet 1, tablet, By Mouth, Daily, # 90 tablet, Refills 1, Route to Pharmacy Electronically, [facility], 165, cm, 03/22/21 10:38:00 EDT, Height Start Date: 10/15/21 Status: OrderedMASTECTOMY BRA MASTECTOMY BRA, See Instructions, # 3 each, Refills 1, Tot. Refills 1, Maintenance, USE DIRECTED DX BREAST CA C50.919 FAX [phone], 12/17/16 10:13:30, Compound Start Date: 12/17/16 Status: OrderedMetoprolol Succinate ER 25 mg oral tablet, extended release 1 tablet, By Mouth, Daily, # 90 tablet, 1 Refills, [facility], 165, cm, 03/22/21 10:38:00 [...] OFFICE, # 45 Unknown,1 Refills, [facility], 165, cm, 03/22/21 10:38:0... Start Date: 08/20/21 Status: OrderedPen [facility], 31 G x 5 mm BD Ultra [...] 3 Refills, Maintenance, 06/18/21 13:50:00 EDT, Tablet, [facility]/pharmacy #7111, 165, cm, 03/22/21 10:38:00 [...] with Active neuropathy(Confirmed) Vitamin D Deficiency(Confirmed) Active [facility] [id number] 200o nl, declines repeat Social History Social History Type Response Smoking Status Never smoker; Other: Quit sm oking age 25; entered on: 06/16/16 Sex
--- OUTSIDE RECORDS SUMMARY | 2022-11-24 21:20 | XMS_ITS | Continuity of Care Document ---
:1935 Author Organization [facility] Address [address] [place] [address]- Care Team Providers Name Role Phone Janes Foster MD Primary Care Physician Encounter [facility] Date(s): 10/21/19 - 10/31/19 [facility] [address] [place] [address]- [facility] Attending Physician: Kate Sr Admitting Physician: [...] (oldterm) 11/16/04 Given 1Admin Note: [facility] izbrbm2Uhsnc Note: given by simone doc by pvoqhs4Bgwzo Note: done at TGC3Hdock Note: [facility] knbrlj4Lmkcy Note: FLU EPIVGZ0Fukee Note: VIS GIVEN7 Admin Note: GIVEN IN CLINIC FTLT9Iuubp Note: Biomedical Jason of Lrlhmq0Lcemy Note: Biomedical Jason of [facility] VIS [phone] [id number] Comment: WRONG OWPTZ55Qeuwe Note: historical data Medications amoxicillin 500 mg oral capsule See Instructions, 4 capsule By Mouth One Hour Prior to Dental Procedure dentiist prescribes, 0 Refills, Maintenance, 01/06/17 13:14:51 Start Date: 01/06/17 Status: OrderedAspirin Enteric Coated 81 mg oral delayed release tablet See Instructions, # 90 tablet, Refills 3 Tot. Refills 3, TAKE 1 TABLET BY MOUTH EVERY DAY, [facility]/pharmacy #7111 Start Date: 06/27/19 Status: OrderedBREAST PROSTHETIC BREAST PROSTHETIC, See Instructions, # 1 each, Refills 0, Tot. Refills 0, Maintenance, USE DIRECTED DX BREAST CANCER C50.919 FAX [phone], 12/17/16 10:11:47, Compound Start Date: 12/17/16 Status: OrderedDepakote ER 500 mg oral tablet, extended release 1 tablet = 500 mg, By Mouth, Daily, # 90 tablet, 11 Refills, Maintenance, 10/05/18 10:19:04 EST, ER Tablet Start Date: 10/05/18 Status: OrderedFreestyle Lite Test Strips See Instructions, # 300 strip(s), Refills 5, Tot. Refills 5, Maintenance, TEST BS t.i.d. DX E11.9 SUPPLY, 12/27/18 11:54:52 EST, Compound Start Date: 12/27/18 Status: OrderedGlucophage 500 mg oral tablet 1 [...] Refills 1, Tot. Refills 1, Hard Stop 12/21/19 8:54:35 EST, 06/24/19 8:54:35 EDT, Route to Pharmacy Electronically, [id number], [facility] Start Date: 06/24/19 Stop Date: 12/21/19 Status: OrderedLantus Solostar Pen 100 units/mL subcutaneous solution See Instructions, Inject 16 units SQ daily rotate injection sites, # 6 each, 3 Refills, Maintenance,12/29/18 8:09:05 EST Start Date: 12/29/18 Status: OrderedLevoxyl 0.1 mg oral tablet 1 tablet = 0.1 mg, By Mouth, Daily, # 90 tablet, 3 Refills, Maintenance, 07/11/19 8:48:39 EDT, Tablet Start Date: 07/11/19 Status: Orderedlisinopril 20 mg oral tablet 20 mg, 1, tablet, By Mouth, Daily, # 90 tablet, Refills 1, Tot. Refills 1, Maintenance, 06/24/19 8:50:47 EDT, Route to Pharmacy Electronically, [id number], [facility] Start Date: 06/24/19 Status: OrderedMASTECTOMY BRA MASTECTOMY BRA, See Instructions, # 3 each, Refills 1, Tot. Refills 1, Maintenance, USE DIRECTED DX BREAST CA C50.919 FAX [phone], 12/17/16 10:13:30, Compound Start Date: 12/17/16 Status: OrderedMetoprolol Succinate ER 25 mg oral tablet, extended release See Instructions, TAKE 1 TABLET BY MOUTH EVERY DAY, # 90 tablet, 1 Refills, Soft Stop, 06/24/19 8:54:34 EDT Start Date: 06/24/19 Status: OrderedMisc Durable Medical Equipment MASTECTOMY BRA, [...] 9 units... Start Date: 01/28/19 Status: OrderedPen [place], 31 G x 5 mm BD Ultra Fine III See Instructions, # 360 each, Refills 3, Tot. 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
--- OUTSIDE RECORDS SUMMARY | 2022-11-24 21:20 | XMS_ITS | Continuity of Care Document ---
:1935 Author Organization [facility] pt Address [address] [place] [address]- Care Team Providers Name Role Phone Janes Foster MD Primary Care Physician Encounter [facility] Date(s): 11/15/22 - 11/22/22 [facility] [address] [place] [address]- Attending Physician: Not on Staff, Attending MD Referring Physician: Janes Foster MD Allergies, Adverse Reactions, Alerts No Known Allergies Immunizations Given and Recorded Vaccine Date Status Refusal Reason [id number] 12y+ bivalent booster vax 09/16/22 Recorde d SARS-CoV-2 mRNA ([id number]-[id number]) vax 04/03/22 Recorde d SARS-CoV-2 (COVID-19) mRNA BNT-162b2 vac1 08/27/21 Record ed SARS-CoV-2 (COVID-19) mRNA BNT-162b2 vac 01/18/21 Given SARS-CoV-2 (COVID-19) mRNA BNT-162b2 vac 12/28/20 Given influenza virus vaccine, inactivated2 08/24/21 Recorded influenza virus vaccine, inactivated 08/14/18 Given influenza virus vaccine, inactivated 08/03/17 Recorded influenza virus vaccine, inactivated3 08/17/16 Given influenza [...] Pneumococcal Vaccine (oldterm) 11/16/04 Given 1Result Comment: [facility] Booster #3 [id number] Comment: [id number] Note: done at [id number] [facility]: FLU [id number] Note: VIS HXUPW1Ultcn Note: GIVEN IN CLINIC [id number] Comment: local yoinsipa4Kjqtn Note: [facility] dhbfrm52Ipflv Note: given by simone doc by [id number] Note: [employer]ical Tagasauris of Hnrars81Rauai Note: [employer] VIS [id number] Comment: WRONG [id number] Note: historical data Medications amoxicillin 500 mg oral capsule See Instructions, 4 capsule By Mouth One Hour Prior to Dental Procedure dentiist prescribes, # 4 capsule, 5 Refills, Maintenance, 06/30/22 15:13:00 EDT, Capsule, [facility]/pharmacy #[id number], 165, cm, 10/29/21 10:57:00 EST, Height [...] USE DIRECTED DX BREAST CANCER C50.919 FAX [phone], 12/17/16 10:11:47, Compound Start Date: 12/17/16 Status: [...] Details, Route to Pharmacy Electronically, [facility], 165, cm, 10/21/22 11:45:00 EST, Height Start Date: 10/21/22 Status: OrderedLantus Solostar Pen 100 units/mL subcutaneous solution See Instructions, INJECT 17 UNITS SUBCUTANEOUSLY DAILY. ROTATE INJECTION SITES, # 15 Unknown, 11 Refills, Maintenance, 10/24/22 13:56:00 EST, [facility]/pharmacy #[id number], 165, cm, 10/21/22 11:45:00 EST, Height Start Date: 10/24/22 Status: Orderedlevothyroxine 0.1 mg oral tablet 1 tablet, By Mouth, Daily, # 90 tablet, 3 Refills, 10/21/22 11:58:00 EST, [facility], 165, cm, 10/21/22 11:45:00 EST, Height Start Date: 10/21/22 Status: Orderedlisinopril 20 mg oral tablet 1, tablet, By Mouth, Daily, # 90 tablet, Refills 3, Tot. Refills 3, 10/21/22 11:58:00 EST, Route to Pharmacy Electronically, [facility], 165, cm, 10/21/22 11:45:00 EST, Height Start Date: 10/21/22 Status: OrderedMASTECTOMY BRA MASTECTOMY BRA, See Instructions, # 3 each, Refills 1, Tot. Refills 1, Maintenance, USE DIRECTED DX BREAST CA C50.919 FAX [phone], 12/17/16 10:13:30, Compound Start Date: 12/17/16 Status: OrderedmetFORMIN 500 mg oral tablet 1 tablet = 500 mg, By Mouth, 2 times a day, # 180 tablet, 3 Refills, Maintenance, 10/21/22 11:58:00 EST, Tablet, [facility] Mail [facility], Partial fill upon patient request if the prescriptionis for a schedule II opioid drug., 165, cm, 10/21... Start Date: 10/21/22 Status: OrderedMetoprolol Succinate ER 25 mg oral tablet, extended release 1 tablet, By Mouth, Daily, # 90 tablet, 3 Refills, 10/21/22 11:58:00 EST, [facility], 165, cm, 10/21/22 11:45:00 [...] 45 Unknown, 11 Refills, 10/24/22 13:56:00 EST, [facility]/pharmacy #71... Start Date: 10/24/22 Status: OrderedPen [place], 31 G x 5 mm BD Ultra Fine III See Instructions, # 360 each, Refills 3, Tot. 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, 07/11/19 9:18:36 EDT, 90 day supply, Compound Start Date: 07/11/19 Status: Orderedpravastatin 80 mg oral tablet 1 tablet, By Mouth, Daily at bedtime, # 90 tablet, 3 Refills, 10/21/22 11:58:00 EST, [facility], 165, cm, 10/21/22 11:45:00 [...] 3 Refills, Maintenance, 10/21/22 11:58:00 EST, Tablet, [facility], 165, cm, 10/21/22 11:45:00 [...] Deficiency Confirmed Active 1colo 200o nl, declines [id number] 2015 Social History Social History Type Response Smoking Status Never smoker; Other: Quit sm oking age 25; entered on: 06/16/16 Sex Patient Care team information Care Team PersonnelName: Kristin MAGALLANES, Janes Edwards Position: [facility] Primary Care Physician Member Role: PCP Address: Address: [address] [place] [id number]- Name: Javon MORGAN, Zamzam Position: [facility] RN Member Role: Primary Care Nurse Name: Juan Manuel Hernandez Position: [facility] Outreach Member Role: Lifetime Consulting Physician Name: Kalpesh MORGAN, Ena Position: [facility] Hospital Dining Car Conductor Member Role: Primary Care Nurse Care Team Related PersonsName: YUNIOR JOHNSON Name: RAFAEL JOHNSON Address: [place] [address] Name: ZOYA SIN Address: [address] [address]
--- OUTSIDE RECORDS SUMMARY | 2022-11-24 21:20 | XMS_ITS | Continuity of Care Document ---
:1935 Author Organization [facility] Address [address] [place] [address]- Care Team Providers Name Role Phone Janes Foster MD Primary Care Physician Encounter [facility] Date(s): 03/10/22 - 04/09/22 [facility] [address] [place] [address] Allergies, Adverse Reactions, Alerts No Known Allergies Immunizations Given and Recorded Vaccine Date Status Refusal Reason SARS-CoV-2 mRNA (hzhbrlm-udfc-daawu) vax 04/03/22 Recorde d SARS-CoV-2 (COVID-19) mRNA [...] 11/16/04 Given 1Result Comment: [facility] [id number] Comment: [id number] Note: done at IRO7Jpbyj [facility]: FLU [id number] Note: VIS PIRQI0Kieiu Note: GIVEN IN CLINIC JWPT2Inldok Comment: local [id number] Note: [facility] ilpnsl49Kdhua Note: given by simone doc by [id number] Note: Biomedical Jason [facility]zy[facility]14Ryuxo [facility]: [employer] [facility] VIS [phone] [id number] Comment: WRONG HQUXE22Suahd Note: historical data Medications amoxicillin 500 mg [...] USE DIRECTED DX BREAST CANCER C50.919 FAX [phone], 12/17/16 10:11:47, Compound Start Date: 12/17/16 Status: OrderedDepakote ER 500 mg oral tablet, extended release 1 tablet = 500 mg, By Mouth, Daily, # 90 tablet, 1 Refills, Maintenance, 12/30/19 13:35:00 EST, ER Tablet[id number], 165, cm, 09/06/19 10:39:00 EDT, Height, 68.1, kg, 05/16/18 0:53:00 EDT, Dry Weight Start Date: 12/30/19 [...] qday DX E11.9 IDDM 90 DAY SUPPLY, 02/23/22 22:12:00 EDT, Compound, 165, cm, 10/29/21 10:57:00 EST, Height Start Date: 02/23/22 Status: OrderedHearing test Hearing test, See Instructions, # 1 each, Refills 0, Tot. Refills 0, Maintenance, Please evaluate and treat patient for hearing loss., 05/02/14 10:11:59, Compound Start Date: 05/02/14 Status: Orderedhydrochlorothiazide 25 mg oral tablet 1, tablet, By Mouth, Daily, # 90 tablet, Refills 0, Route to Pharmacy Electronically, [facility], 165, cm, 10/29/21 10:57:00 EST, Height Start Date: 01/29/22 Status: OrderedLantus Solostar Pen 100 units/mL subcutaneous solution See Instructions, INJECT 17 UNITS SUBCUTANEOUSLY DAILY. ROTATE INJECTION SITES, # 5 each, 1 Refills,03/10/22 9:45:00 EDT, [facility]/pharmacy #[id number], 165, cm, 10/29/21 10:57:00 EST, Height Start Date: 03/10/22 Status: Orderedlevothyroxine 0.1 mg oral tablet 1 tablet, By Mouth, Daily, # 90 tablet, 1 Refills, [facility], 165, cm, 10/29/21 10:57:00 EST, Height Start Date: 03/31/22 Status: Orderedlisinopril 20 mg oral tablet 1, tablet, By Mouth, Daily, # 90 tablet, Refills 1, Route to Pharmacy Electronically, [facility], 165, cm, 10/29/21 10:57:00 EST, Height Start Date: 03/31/22 Status: OrderedMASTECTOMY BRA MASTECTOMY BRA, See Instructions, # 3 each, Refills 1, Tot. Refills 1, Maintenance, USE DIRECTED DX BREAST CA C50.919 FAX [phone], 12/17/16 10:13:30, Compound Start Date: 12/17/16 Status: OrderedmetFORMIN 500 mg oral tablet 1 tablet = 500 mg, By Mouth, 2 times a day, # 180 tablet, 3 Refills, Maintenance, 11/25/21 10:33:00 EST, Tablet, [facility] Mail [facility], Partial fill upon patient request if the prescription is for a schedule II opioid drug., 165, cm, 10/29/21... Start Date: 11/25/21 Status: OrderedMetoprolol Succinate ER 25 mg oral tablet, extended release 1 tablet, By Mouth, Daily, # 90 tablet, 0 Refills, [facility], 165, cm, 10/29/21 10:57:00 EST, Height Start Date: 01/29/22 Status: OrderedMisc Durable Medical Equipment MASTECTOMY BRA, [...] CALL PCP OFFICE, # 45 Unknown,1 Refills, 03/10/22 9:45:00 EDT, [facility]/pharmacy #[id number],... Start Date: 03/10/22 Status: OrderedPen [place], 31 G x 5 mm BD Ultra Fine III See Instructions, # 360 each, Refills 3, Tot. 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, 07/11/19 9:18:36 EDT, 90 day supply, Compound Start Date: 07/11/19 Status: Orderedpravastatin 80 mg oral tablet 1 tablet, By Mouth, Daily at bedtime, # 90 tablet, 1 Refills, [facility], 165, cm, 10/29/21 10:57:00 EST, Height Start Date: 01/09/22 Status: OrderedVitamin B12 1000 mcg oral tablet 1 tablet = 1,000 mcg, By Mouth, Daily, # 90 tablet, 3 Refills, Maintenance, 06/18/21 13:50:00 EDT, Tablet, [facility]/pharmacy #[id number], 165, cm, 03/22/21 10:38:00 EDT, [...] with Active neuropathy(Confirmed) Vitamin D Deficiency(Confirmed) Active [facility] [id number] 200o nl, declines repeat Social History Social History Type Response Smoking Status Never smoker; Other: Quit sm oking age 25; entered on: 06/16/16 Sex
--- OUTSIDE RECORDS SUMMARY | 2022-11-24 21:21 | XMS_ITS ---
:1935 Author Care Team Providers Name Role Phone PHILIPP OVIEDO MD Primary Care Provider [phone] [facility] OTHER [phone] Allergies Code Code System Name Reaction Severity Status Onset NKDA ? Medications Name Status Start Date Stop Date ? ? amoxicillin 500 mg capsule Completed ? 08/09 Asprin Ec Low Dose 81 mg tablet,delayed release Active ? Not available Take 1 tablet every day by oral route. azithromycin 250 mg tablet Active ? Not a vailable BD Ultra-Fine Mini Pen Needle 31 gauge x 16 Completed ? 11/30/2018 celecoxib 200 mg capsule Completed ? 019 clonazepam 0.5 mg tablet Active ? Not clarissa ilable cyanocobalamin (vit B-12) ER 1,000 mcg tablet,extended release A ctive ? Not available TAKE 1 TABLET BY MOUTH EVERY DAY Depakote Active ? Not available diclofenac 1 % topical gel Active ? Not a vailable APPLY 2 GRAMS TO THE AFFECTED AREA(S) BY TOPICAL ROUTE 4 TIMES PER DAY divalproex 500 mg tablet,delayed release Active ? Not available divalproex ER 500 mg tablet,extended release 24 hr Active ? Not available Fluad Quad 2556-8344(65yr up)(PF) 60 mcg (15 mcg x 4)/0.5mL IM s yringe Active ? Not available PHARMACY ADMINISTERED FreeStyle Lite Strips Active ? Not availa ble USE TO TEST BLOOD SUGAR 3 TIMES A DAY hydrochlorothiazide 25 mg tablet Active ? Not available Lantus Solostar U-100 Insulin 100 unit/mL (3 mL) subcutaneous pe n Active ? Not available INJECT 17 UNITS SUBCUTANEOUSLY DAILY. ROTATE INJECTION SITES levothyroxine 100 mcg tablet Active ? Not available lisinopril 20 mg tablet Active ? Not avai lable metformin 500 mg tablet Active ? Not avai lable metoprolol succinate ER 25 mg tablet,extended release 24 Active ? Not available hr nifedipine ER 30 mg tablet,extended release Completed ? 11/30/2018 nifedipine ER 30 mg tablet,extended release 24 hr Completed ? 11/30/2018 nitrofurantoin monohydrate/macrocrystals 100 mg capsule Complete d ? 11/30/2018 Novolog FlexPen U-100 Insulin aspart 100 unit/mL (3 mL) subcutan eous Active ? Not available PLEASE SEE ATTACHED FOR DETAILED DIRECTIONS ofloxacin 0.3 % ear drops Active ? Not av ailable pravastatin 80 mg tablet Active ? Not clarissa ilable sulfamethoxazole 800 mg-trimethoprim 160 mg tablet Completed ? 11/30/2018 tobramycin 0.3 %-dexamethasone 0.1 % eye Active ? Not available drops,suspension Problems None recorded. Procedures None recorded. Results Lab Results None recorded. Past Encounters None recorded. Social History Tobacco Smoking Status Former Smoker (1 pack per week) Vaccine List None recorded. Plan of Care Reminders Provider Appointments None recorded. ? ? Lab None recorded. ? ? Referral None recorded. ? ? Procedures None recorded. ? ? Surgeries None recorded. ? ? Imaging None recorded. ? ? Vitals 08/09/2020 03:21PM D06 Established Patient Blood Pressure 146/70 mm[Hg] 11/30/2018 05:52PM New Patient Blood Pressure 130/62 mm[Hg]
--- OUTSIDE RECORDS SUMMARY | 2022-11-24 21:21 | XMS_ITS | Continuity of Care Document ---
:1935 Author Organization [facility] Address [address] [place] [address]- Care Team Providers Name Role Phone Janes Foster MD Primary Care Physician Encounter [facility] Date(s): 06/05/20 - 07/05/20 [facility] [address] [place] [address]- [facility] Allergies, Adverse Reactions, Alerts Substance [...] (oldterm) 11/16/04 Given 1Admin Note[facility] [id number] Note: given by simone doc by [id number] Note: done at [id number] Note: [facility] [id number] Note: FLU [id number] Note: VIS GIVEN7 Admin Note: GIVEN IN CLINIC [id number] Note: Biomedical Jason of Pqnpwi6Koiaz Note: Biomedical Jason of [facility] VIS [id number] [id number] Comment: WRONG [id number] Note: historical data Medications amoxicillin 500 mg oral capsule See Instructions, 4 capsule By Mouth One Hour Prior to Dental Procedure dentiist prescribes, 0 Refills, Maintenance, 01/06/17 13:14:51 Start Date: 01/06/17 Status: OrderedAspirin Enteric Coated 81 mg oral delayed release tablet See Instructions, # 90 tablet, Refills 3 Tot. Refills 3, TAKE 1 TABLET BY MOUTH EVERY DAY, [facility]/pharmacy #[id number] Start Date: 06/27/19 Status: OrderedBREAST PROSTHETIC BREAST PROSTHETIC, See Instructions, # 1 each, Refills 0, Tot. Refills 0, Maintenance, USE DIRECTED DX BREAST CANCER C50.919 FAX [phone], 12/17/16 10:11:47, Compound Start Date: 12/17/16 Status: OrderedDepakote ER 500 mg oral tablet, extended release 1 tablet = 500 mg, By Mouth, Daily, # 90 tablet, 1 Refills, Maintenance, 12/30/19 13:35:00 EST, ER Tablet, [facility]/pharmacy #[id number], 165, cm, 09/06/19 10:39:00 EDT, [...] tablet, 1 Refills, Maintenance, 06/05/20 12:43:00 EDT, [facility], 165, cm, 03/13/20 [...] 06/05/20 16:00:00 EDT, Route to Pharmacy Electronically, [facility], 165, cm, 03/13/20 16:53:00 EDT, Height Start Date: 06/05/20 Status: OrderedKlonoPIN 0.5 mg oral tablet 1 tablet = 0.5 mg, By Mouth, 2 times a day, PRN vertigo, # 30 tablet, 0 Refills, Maintenance, 02/14/20 12:08:00 EDT, Tablet, [facility]/pharmacy #[id number], 165, cm, 09/06/19 10:39:00 EDT, Height, 68.1, kg, 03/31/18 0:53:00 EDT, Dry Weight Start Date: 02/14/20 Status: OrderedLantus Solostar Pen 100 units/mL subcutaneous solution See Instructions, INJECT 17 UNITS SUBCUTANEOUSLY DAILY. ROTATE INJECTION SITES, # 5 each, 3 Refills,03/13/20 17:21:00 EDT, [facility]/pharmacy #[id number], 165, cm, 03/13/20 16:53:00 EDT, Height, 68.1, kg, 03/31/18 0:53:00 EDT, Dry Weight Start Date: 03/13/20 Status: OrderedLevoxyl 0.1 mg oral tablet 1 tablet = 0.1 mg, By Mouth, Daily, # 90 tablet, 1 Refills, Maintenance, 04/02/20 12:46:00 EDT, Tablet, [facility], 165, cm, 03/13/20 16:53:00 EDT, Height Start Date: 04/02/20 Status: Orderedlisinopril 20 mg oral tablet 20 mg, 1, tablet, By Mouth, Daily, # 90 tablet, Refills 1, Tot. Refills 1, Maintenance, 04/02/20 12:50:00 EDT, Route to Pharmacy Electronically, [facility], 165, cm, 03/13/20 16:53:00 EDT, Height, Dry Weight Start Date: 04/02/20 Status: OrderedMASTECTOMY BRA MASTECTOMY BRA, See Instructions, # 3 each, Refills 1, Tot. Refills 1, Maintenance, USE DIRECTED DX BREAST CA C50.919 FAX [phone], 12/17/16 10:13:30, Compound Start Date: 12/17/16 Status: OrderedMetoprolol Succinate ER 25 mg oral tablet, extended release See Instructions, TAKE 1 TABLET BY MOUTH EVERY DAY, # 90 tablet, 1 Refills, Soft Stop, 04/02/20 12:50:00 EDT, [facility], 165, cm, 03/13/20 16:53:00 [...] 30 mL, 3 Refills, Maintenance, 05/22/20 14:15:00 EDT,[facility], 251- 280=7 units,28... Start Date: 05/22/20 Status: OrderedPen [place], 31 G x 5 mm BD Ultra [...] Refills, Soft Stop, 02/14/20 12:08:00 EDT, Tablet, [facility]/pharmacy #[id number], 165, cm, 09/06/19 10:39:00 EDT, [...] with Active neuropathy(Confirmed) Vitamin D Deficiency(Confirmed) Active [facility] [id number] 200o nl, declines repeat Social History Social History Type Response Smoking Status Never smoker; Other: Quit sm oking age 25; entered on: 06/16/16 Sex
--- OUTSIDE RECORDS SUMMARY | 2022-11-24 21:21 | XMS_ITS ---
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 ALLERGIES Substance Reaction Event Type Date Status Adhesive Tape rash Drug Allergy Oct, Active Seasonal IC Unknown Drug Allergy Oct, Active ENCOUNTERS Encounter Location Date Diagnosis [address] Oct, Typ e 1 diabetes mellitus [facility] [place] with diabetic [address] polyneuropathy E 10.42 ; Tinea unguium B3 5.1 ; Other hammer toe (s) (acquired), righ t foot M20.41 and Other hammer toe(s) (acquired ), left foot M20.[address] Aug, Typ e 1 diabetes mellitus [facility] [place] with diabetic [address] polyneuropathy E 10.42 ; Tinea unguium B3 5.1 ; Ingrowing nail L 60.0 ; Other hammer toe (s) (acquired), righ t foot M20.41 and Other hammer toe(s) (acquired ), left foot M20.[facility] [address] May, Typ e 1 diabetes mellitus [place] with diabetic [address] polyneuropathy E 10.42 ; Tinea unguium B3 5.1 ; Ingrowing nail L 60.0 ; Other hammer toe (s) (acquired), righ t foot M20.41 and Other hammer toe(s) (acquired ), left foot M20.[address] Apr, [place] [address] Jan, Typ e 1 diabetes mellitus [place] with diabetic [address] polyneuropathy E 10.42 ; Tinea unguium B3 5.1 ; Ingrowing nail L 60.0 and 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 L97.[address] Nov, Typ e 1 diabetes mellitus [place] with diabetic [address] polyneuropathy E 10.42 ; Tinea unguium B3 5.1 ; Ingrowing nail L 60.0 and 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 L97.[address] Aug, Typ e 1 diabetes mellitus [place] diabetic [address] polyneuropathy E 10.42 ; Tinea unguium B3 5.1 ; Ingrowing nail L 60.0 ; Other hammer toe (s) (acquired), righ t foot M20.41 and Other hammer toe(s) (acquired ), left foot M20.[address] May, Typ e 1 diabetes mellitus [place] diabetic [address] polyneuropathy E 10.42 ; Tinea unguium B3 5.1 ; Ingrowing nail L 60.0 ; Other hammer toe (s) (acquired), righ t foot M20.41 and Other hammer toe(s) (acquired ), left foot M20.[address] March, Tin ea unguium B35.1 ; Type [place] 1 [place] [address] diabetic polyneu ropathy E10.42 ; Ingrowi ng nail L60.0 ; Other gaona mmer toe(s) (acquired ), right foot M20.41 and Other hammer toe(s) (a cquired), left foot M20.[address] [facility] Feb, [place] [address] [facility] [address] Dec, Typ e 1 diabetes mellitus [place] diabetic [address] polyneuropathy E 10.42 and Tinea unguium B3 5.[address] Oct, Typ e 1 diabetes mellitus [place] diabetic [address] polyneuropathy E 10.42 ; Other hammer toe (s) (acquired), righ t foot M20.41 ; Other h ammer toe(s) (acquired ), left foot M20.42 ; Ti eva unguium B35.1 an d Ingrowing nail L 60.[address] Aug, Typ e 1 diabetes mellitus [place] with diabetic [address] polyneuropathy E 10.42 ; Other hammer toe (s) (acquired), righ t foot M20.41 ; Other h ammer toe(s) (acquired ), left foot M20.42 and Tinea unguium B35.[address] [facility] Jul, [place] [address] [facility] [address] Jun, [place] [address] [facility] Apr, Ing rowing nail L60.0 ; [place] Type 1 diabetes mellitus [address] with diabetic polyneuropathy E 10.42 and Tinea unguium B3 5.[address] March, [place] [address] Dec, Typ e 1 diabetes mellitus [place] with diabetic [address] polyneuropathy E 10.42 and Tinea unguium B3 5.1 [facility] [address] Oct, Oth er hammer toe(s) [place] (acquired), rig ht foot [address] M20.41 ; Type 1 diabetes mellitus with di abetic polyneuropathy E 10.42 ; Other hammer toe (s) (acquired), left foot M20.42 and Tinea unguium B35.[address] [facility] Aug, Typ e 1 diabetes mellitus [place] diabetic [address] polyneuropathy E 10.42 ; Other hammer toe (s) (acquired), righ t foot M20.41 ; Other h ammer toe(s) (acquired ), left foot M20.42 and Tinea unguium B35.[address] Jun, [place] [address] March, Typ e 1 diabetes mellitus [place] diabetic [address] polyneuropathy E 10.42 and Tinea unguium B3 5.[address] Jan, Oth er hammer toe(s) [place] (acquired), rig ht foot [address] M20.41 ; Type 1 diabetes mellitus with di abetic polyneuropathy E 10.42 ; Other hammer toe (s) (acquired), left foot M20.42 and Tinea unguium B35.[address] Dec, [place] [address] Sep, Typ e 1 diabetes mellitus [place] diabetic [address] polyneuropathy E 10.42 and Tinea unguium B3 5.[address] Jul, Typ e 1 diabetes mellitus [place] diabetic [address] polyneuropathy E 10.42 and Tinea unguium B3 5.[address] Apr, Oth er hammer toe(s) [place] (acquired), rig ht foot [address] M20.41 ; Type 1 diabetes mellitus with di abetic polyneuropathy E 10.42 ; Other hammer toe (s) (acquired), left foot M20.42 and Tinea unguium B35.1 [facility] [address] March, [place] [address] Dec, Oth er hammer toe(s) [place] (acquired), rig ht foot [address] M20.41 ; Type 1 diabetes mellitus with di abetic polyneuropathy E 10.42 ; Other hammer toe (s) (acquired), left foot M20.42 and Tinea unguium B35.[address] Dec, [place] [address] Oct, Typ e 1 diabetes mellitus [place] diabetic [address] polyneuropathy E 10.42 and Tinea unguium B3 5.[address] Jul, Typ e 1 diabetes mellitus [place] diabetic [address] polyneuropathy E 10.42 and Tinea unguium B3 5.[address] May, Typ e 1 diabetes mellitus [place] with diabetic [address] polyneuropathy E 10.42 and Tinea unguium B3 5.[address] March, Typ e 1 diabetes mellitus [place] diabetic [address] polyneuropathy E 10.42 ; Other hammer toe (s) (acquired), left foot M20.42 ; Tinea u nguium B35.1 and Other hammer toe(s) (acquired ), right foot M20.41 [facility] [address] Feb, [place] [address] [facility] Dec, Typ e 1 diabetes mellitus [place] diabetic [address] polyneuropathy E 10.42 ; Other hammer toe (s) (acquired), left foot M20.42 ; Tinea u nguium B35.1 and Other hammer toe(s) (acquired ), right foot M20.[address] Nov, [place] [address] Sep, Typ e 1 diabetes mellitus [place] diabetic [address] polyneuropathy E 10.42 and Tinea unguium B3 5.[address] [facility] Jun, [place] [address] Jun, Typ e 1 diabetes mellitus [place] diabetic [address] polyneuropathy E 10.42 and Tinea unguium B3 5.[address] [facility] May, [place] [address] Apr, [place] [address] March, Typ e 1 diabetes mellitus [place] diabetic [address] polyneuropathy E 10.42 and Tinea unguium B3 5.[address] Jan, Oth er hammer toe(s) [place] (acquired), lef t foot [address] M20.42 ; Other h ammer toe(s) (acquired ), right foot M20.41 ; Ty pe 1 diabetes mellitu s with diabetic polyneu ropathy E10.42 and Tinea unguium B35.1 [facility] [address] Nov, Ing rowing nail L60.0 ; [place] Other hammer to e(s) [address] (acquired), righ t foot M20.41 ; Other h ammer toe(s) (acquired ), left foot M20.42 ; Ty pe 1 diabetes mellitu s with diabetic polyneu ropathy E10.42 and Tinea unguium B35.1 [facility] [address] Aug, Ing rowing nail L60.0 ; [place] Cellulitis of r ight toe [address] L03.031 ; Type 1 diabetes mellitus with di abetic polyneuropathy E 10.42 and Tinea unguium B3 5.[address] Jul, [place] [address] May, Ing rowing Nail 703.0 ; [place], [place] Diabetic - IDDM /Neuropathy [address] 250.61 and 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.[address] March, Ing rowing Nail 703.0 ; [place] Diabetic - IDDM /Neuropathy [address] 250.61 and 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.[address] Dec, Ing rowing Nail 703.0 ; [place] Diabetic - IDDM /Neuropathy [address] 250.61 and 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.[address] Oct, Ham alejandra toe 735.4 ; [place] Diabetic - IDDM /Neuropathy [address] 250.61 and 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.[address] Aug, Ham alejandra toe 735.4 ; [place], [place] Diabetic - IDDM /Neuropathy [address] 250.61 and 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.[address] May, Arely betic - IDDM/Neuropathy [place], [place] 250.61 ; Onycho mycosis [address] 110.1 and Ingrow ing Nail 703.[address] Apr, [place] [address] Jan, Arely betic - IDDM/Neuropathy [place], [place] 250.61 ; Onycho mycosis [address] 110.1 and Ingrow ing Nail 703.[address] Nov, Arely betic - IDDM/Neuropathy [place], [place] 250.[address] ; Onycho mycosis [address] 110.1 and Ingrow ing Nail 703.[address] Aug, Arely betic - IDDM/Neuropathy [place], [place] 250.61 ; Onycho mycosis [address] 110.1 and Hammer toe 735.[address] Jun, Arely betic - IDDM/[place]uropathy [place], [place] 250.61 and Onyc homycosis [address] [address] March, Arely betic - IDDM/[place]uropathy [place], [place] 250.61 and Onyc homycosis [address] [address] Dec, Arely betic - IDDM/[place]uropathy [place], [place] 250.61 ; Onycho mycosis [address] 110.1 and Ingrow ing Nail 703.[address] Nov, [place] [address] Aug, Arely betic - IDDM/Neuropathy [place], [place] 250.61 ; Onycho mycosis [address] 110.1 and Hammer toe 735.[address] Jun, Arely betic - IDDM/[place]urop[place], [place] 250.61 and Onyc homycosis [address] [address] March, [facility] 250.[address] Dec, A[place] NIDDM/Neuropath y 250.60 ; [address] Keratoma 701.1 a nd Other Disease of Nail 703.8 UNKNOWN Dec, UNKNOWN Oct, [address] Sep, [facility] moody [facility] [place] NIDDM/Neuropath y 250.60 ; [address] Keratoma 701.1 a nd Other Disease of Nail 703.[address] Jul, Arely betic - IDDM/Neuropathy [place] [facility] [place] [address] ; [place] 701.1 ; [address] Other Disease of Nail 703.8 and Hammer toe 735.4 IMMUNIZATIONS Vaccine Route Administration Date Status COVID-19 Pfizer BioNT[employer] Vaccine Unknown March 20, 2022 Administered Pneumococcal Unknown Sep 16, 2016 Administered Influenza Unknown Jul 17, 2022 Administered Influenza Unknown Aug 14, 2018 Administered Influenza Unknown Aug 14, 2017 Administered Influenza Unknown Jul 17, 2016 Administered Influenza Unknown Oct 03, 2015 Administered SOCIAL HISTORY Qualifiers Date Former Smoker REASON FOR REFERRAL FUNCTIONAL STATUS PLAN OF CARE Activity Details Follow Up prn Reason: Future Appointment Provider Name:Fernando Lim , 2023-01-09 01:45:00 PM, [address] [place] [address] [place], [address], Pending Test Hemoglobin A1c Future/Pending Procedure 30941-YUDULSW NAIL, 6 [place] MOR E Future/Pending Procedure 28730-XPFG SKIN LESIONS, OVE R 4 Future/Pending Procedure 22004-ZQKMNMH NAIL, 6 OR MOR E Future/Pending Procedure 70764-Xofclfqe Plate Future/Pending Procedure 12031-AVQT SKIN LESIONS, OVE R 4 Future/Pending Procedure 71475-KFTLVHA NAIL, 6 OR MOR E Future/Pending Procedure 23780-Klhxxxvc Plate Future/Pending Procedure 75280-Lvdpzdtw Plate Each Ad ditional Future/Pending Procedure 39156-FLDW SKIN LESIONS, OVE R 4 Future/Pending Procedure 95583-OPUPNTP NAIL, 6 OR MOR E Future/Pending Procedure 03529-Drhtdctc Plate Future/Pending Procedure 43921-Puonpjdt Plate Each Ad ditional Future/Pending Procedure 77902-BKZR SKIN LESIONS, OVE R 4 Future/Pending Procedure 48264-UKVPNLZ NAIL, 6 OR MOR E Future/Pending Procedure 96082-Iovfiqxe Plate Future/Pending Procedure 62957-Cnwofjsj Plate Each Ad ditional Future/Pending Procedure 60874-JKYC SKIN LESIONS, 2 T O 4 Future/Pending Procedure 44195-EFEMPAI NAIL, 6 [place] MOR E Future/Pending Procedure 74187-Dtueracr Plate Future/Pending Procedure 89916-AEZK SKIN LESIONS, 2 T O 4 Future/Pending Procedure 99491-QJYQUZB NAIL, 6 OR MOR E Future/Pending Procedure 92062-Ilhbxyby Plate Future/Pending Procedure 87113-WYVL SKIN LESIONS, 2 T O 4 Future/Pending Procedure 30166-GGVJJUF NAIL, 6 [place] MOR E Future/Pending Procedure 87150-Kvlhnksx Plate Future/Pending Procedure 60595-Pqbeonzl Plate Each Ad ditional Future/Pending Procedure 18099-XZWW SKIN LESIONS, 2 T O 4 Future/Pending Procedure 00178-RXMQPST NAIL, 6 OR MOR E Future/Pending Procedure 06333-SSEO SKIN LESIONS, 2 T O 4 Future/Pending Procedure 31913-LJUBUTC NAIL, 6 OR MOR E Future/Pending Procedure 18249-Qnzpdhub Plate Future/Pending Procedure 45726-YDCT SKIN LESIONS, 2 T O 4 Future/Pending Procedure 63098-LXJWQYP NAIL, 6 OR MOR E Future/Pending Procedure 25176-TLGG SKIN LESIONS, 2 T O 4 Future/Pending Procedure 30484-WWXSANP NAIL, 6 OR MOR E Future/Pending Procedure 93431-Vwgaourc Plate Future/Pending Procedure 84981-JOLU SKIN LESIONS, 2 T O 4 Future/Pending Procedure 10751-JVWCUQI NAIL, 6 OR MOR E Future/Pending Procedure 77952-TWAL SKIN LESIONS, 2 T O 4 Future/Pending Procedure 57866-EPMNSLV NAIL, 6 OR MOR E Future/Pending Procedure 21409-IZYY SKIN LESIONS, 2 T O 4 Future/Pending Procedure 03546-NNPMDFU NAIL, 6 OR MOR E Future/Pending Procedure 22354-TOYY SKIN LESIONS, 2 T O 4 Future/Pending Procedure 53679-FIRFJWJ NAIL, 6 OR MOR E Future/Pending Procedure 28970-NOAT SKIN LESIONS, 2 T O 4 Future/Pending Procedure 55513-BRPDNTR NAIL, 6 OR MOR E Future/Pending Procedure 12515-ZEPC SKIN LESIONS, 2 T O 4 Future/Pending Procedure 68855-TXXOPBK NAIL, 6 OR MOR E Future/Pending Procedure 09939-FFQM SKIN LESIONS, 2 T O 4 Future/Pending Procedure 69392-WBFBPWR NAIL, 6 OR MOR E Future/Pending Procedure 88816-MORM SKIN LESIONS, 2 T O 4 Future/Pending Procedure 95780-WECAGSH NAIL, 6 OR MOR E Future/Pending Procedure 79622-FCWR SKIN LESIONS, 2 T O 4 Future/Pending Procedure 86051-JXKPAPX NAIL, 6 OR MOR E Future/Pending Procedure 53506-XLHO SKIN LESIONS, 2 T O 4 Future/Pending Procedure 93062-WRNDAHU NAIL, 6 OR MOR E Future/Pending Procedure 53941-MNEG SKIN LESIONS, 2 T O 4 Future/Pending Procedure 71381-SLYHLST NAIL, 6 OR MOR E Future/Pending Procedure 95197-JNOA SKIN LESIONS, 2 T O 4 Future/Pending Procedure 47708-EZDQJED NAIL, 6 OR MOR E Future/Pending Procedure 43860-HGJL SKIN LESIONS, 2 T O 4 Future/Pending Procedure 28634-XOTDRJB NAIL, 6 OR MOR E Future/Pending Procedure 07289-LBFI SKIN LESIONS, 2 T O 4 Future/Pending Procedure 74999-KDABGDF NAIL, 6 OR MOR E Future/Pending Procedure 12940-LSWH SKIN LESIONS, 2 T O 4 Future/Pending Procedure 38028-KAKHTLJ NAIL, 6 OR MOR E Future/Pending Procedure 52017-PPKG SKIN LESIONS, 2 T O 4 Future/Pending Procedure 52624-MJFBXTF NAIL, 6 OR MOR E Future/Pending Procedure 16602-TTLR SKIN LESIONS, 2 T O 4 Future/Pending Procedure 72891-XFRKJWY NAIL, 6 OR MOR E Future/Pending Procedure 81683-VOGX SKIN LESIONS, 2 T O 4 Future/Pending Procedure 07098-NOYEXFE NAIL, 6 OR MOR E Future/Pending Procedure 91484-MJUD SKIN LESIONS, 2 T O 4 Future/Pending Procedure 98009-XIJSPBK NAIL, 6 OR MOR E Future/Pending Procedure 34492-Gzdylmty Plate Future/Pending Procedure 64988-Ktiuktnd Plate Each Ad ditional Future/Pending Procedure 06370-KBNJ SKIN LESIONS, 2 T O 4 Future/Pending Procedure 63260-CQAEICU NAIL, 6 OR MOR E Future/Pending Procedure 40014-Jqzcqigr Plate Future/Pending Procedure 54088 I&D ABSCESS- SIMPLE,SI NGLE Future/Pending Procedure 27189-TWHP SKIN LESIONS, 2 T O 4 Future/Pending Procedure 58862-GWCFTPV NAIL, 6 OR MOR E Future/Pending Procedure 89207-Aruvvdmq Plate Future/Pending Procedure 00095-Jbxrupuh Plate Each Ad ditional Future/Pending Procedure 65467-DBMQ SKIN LESIONS, 2 T O 4 Future/Pending Procedure 44612-DQUYZJG NAIL, 6 OR MOR E Future/Pending Procedure 44552-Hnsmgmfj Plate Future/Pending Procedure 12566-Pugmlloh Plate Each Ad ditional Future/Pending Procedure 59769-AUVD SKIN LESIONS, 2 T O 4 Future/Pending Procedure 99590-EJQCWZT NAIL, 6 OR MOR E Future/Pending Procedure 16351-Xqvpoydo Plate Future/Pending Procedure 20289-Ntxhocoi Plate Each Ad ditional Future/Pending Procedure 36319-JTTL SKIN LESIONS, 2 T O 4 Future/Pending Procedure 33433-ALPPNIC NAIL, 6 OR MOR E Future/Pending Procedure 46671-SGNK SKIN LESIONS, 2 T O 4 Future/Pending Procedure 80826-PFHBAND NAIL, 6 OR MOR E Future/Pending Procedure 09156-EEZH SKIN LESIONS, 2 T O 4 Future/Pending Procedure 44359-YHWLDMK NAIL, 6 OR MOR E Future/Pending Procedure 61685-Nbmjkauv Plate Future/Pending Procedure 67506-Aqddinvc Plate Each Ad ditional Future/Pending Procedure 27481-JTMH SKIN LESIONS, 2 T O 4 Future/Pending Procedure 83842-FPKHPQJ NAIL, 6 OR MOR E Future/Pending Procedure 88307-Pfqcxfxw Plate Future/Pending Procedure 88010-Cvokbivp Plate Each Ad ditional Future/Pending Procedure 81451-PTBH SKIN LESIONS, 2 T O 4 Future/Pending Procedure 45403-DAOOJOJ NAIL, 6 OR MOR E Future/Pending Procedure 27941-Qwvfsyin Plate Future/Pending Procedure 78395-Bnoasani Plate Each Ad ditional Future/Pending Procedure 07419-EHVD SKIN LESIONS, 2 T O 4 Future/Pending Procedure 98239-UANLHAT NAIL, 6 OR MOR E Future/Pending Procedure 98986-FMAX SKIN LESIONS, 2 T O 4 Future/Pending Procedure 76233-TBEOLCE NAIL, 6 OR MOR E Future/Pending Procedure 89394-CTOH SKIN LESIONS, 2 T O 4 Future/Pending Procedure 89486-NFKYMBT NAIL, 6 OR MOR E Future/Pending Procedure 58512-EHDW SKIN LESIONS, 2 T O 4 Future/Pending Procedure 69425-QZVDFAW NAIL, 6 OR MOR E Future/Pending Procedure 21873-Swwydlov Plate Future/Pending Procedure 53101-Ghqjqxhn Plate Each Ad ditional Future/Pending Procedure 83349-BPRX SKIN LESIONS, 2 T O 4 Future/Pending Procedure 49385-NCDWBOH NAIL, 6 OR MOR E Future/Pending Procedure 97914-ZSOB SKIN LESIONS, 2 T O 4 Future/Pending Procedure 56934-UGFABAW NAIL, 6 OR MOR E Future/Pending Procedure 39309-XMXM SKIN LESIONS, 2 T O 4 Future/Pending Procedure 01612-ROXO SKIN LESIONS, 2 T O 4 Future/Pending Procedure I7226-RRNTAMHD DYSTROPHIC NA ILS ANY # Future/Pending Procedure 19559-BDXY SKIN LESIONS, 2 T O 4 Future/Pending Procedure X0714-SXQAERDI DYSTROPHIC NA ILS ANY # Future/Pending Procedure 93115-TBHZ SKIN LESIONS, 2 T O 4 Future/Pending Procedure C8299-AJEBUCRX DYSTROPHIC NA ILS ANY # Future/Pending Procedure 96208-OIZU SKIN LESIONS, 2 T O 4 Future/Pending Procedure E2911-JRBEOLXX DYSTROPHIC NA ILS ANY # VITAL SIGNS Height 5 ft 7 in in 2022-10-31 Weight 175 lbs 2022-10-31 BMI 27.41 kg/m2 2022-10-31 Heart Rate 55 /min 2020-01-03 Temperature 98.1 degrees Fahrenheit 2021-03-29 Blood pressure systolic 120 mm Hg 2022-10-31 Blood pressure diastolic 71 mm Hg 2022-10-31 MEDICATIONS Medication Instructions Dosage Frequency Start End Duration Statu s Date Date Meclizine HCl Active metFORMIN HCl 500 MG Orally Once a as 24h Active day directed NIFEdipine Not-Taki ng hydroCHLOROthiazide Orally Once a as 24h Active 25 MG day directed Procardia Active Extra Depth as Active Orthopedic Shoes (1 directed Pair) with Customized Heat Molded Multidensity Innersoles (3 Pair) NovoLOG FlexPen Active Lantus Active clonazePAM Active Divalproex Sodium Active Pravastatin Sodium 80 Orally Once a 1 tablet 24h Active MG day Lipitor Active Celecoxib Active Lisinopril 20 MG Orally Once a as 24h A ctive day directed PROCEDURES Procedure Date Ordered Result Body Site Avulsion Plate Each Additional Dec 02, 2013 DEBRIDE NAIL, 6 OR MORE March 16, 2015 TRIM SKIN LESIONS, OVER 4 Aug 22, 2022 TRIM SKIN LESIONS, 2 TO 4 June 14, 2021 DEBRIDE NAIL, 6 OR MORE Aug 14, 2017 TRIM SKIN LESIONS, 2 TO 4 February 01, 2016 TRIM SKIN LESIONS, 2 TO 4 Aug 14, 2017 TRIMMING DYSTROPHIC NAILS ANY # March 19, 2012 Avulsion Plate February 11, 2022 Avulsion Plate May 01, 2020 Avulsion Plate Nov 29, 2021 TRIM SKIN LESIONS, 2 TO 4 Sep 13, 2021 TRIM SKIN LESIONS, 2 TO 4 March 29, 2021 TRIM SKIN LESIONS, TO 4 Oct 30, 2020 DEBRIDE NAIL, 6 OR MORE Aug 21, 2015 TRIM SKIN LESIONS, TO Nov 30, 2015 DEBRIDE NAIL, 6 OR MORE May 25, 2015 PT VISIT DOC USING CCHIT CER Aug 26, 2013 LOW EXTEMITY NEUR EXAM DOCUM Oct 27, 2014 LOW EXTEMITY NEUR EXAM DOCUM Aug 25, 2014 Avulsion Plate Each Additional Jan 04, 2013 TRIM SKIN LESIONS, TO Jun 18, 2012 DEBRIDE NAIL, 6 OR MORE Oct 31, 2022 TRIM SKIN LESIONS, 2 TO 4 Jul 25, 2011 TRIM SKIN LESIONS, 2 TO 4 Dec 23, 2011 TRIM SKIN LESIONS, TO March 19, 2012 DEBRIDE NAIL, OR MORE May 01, 2020 DEBRIDE NAIL, 6 OR MORE Nov 29, 2021 DEBRIDE NAIL, 6 OR MORE February 11, 2022 DEBRIDE NAIL, 6 OR MORE June 10, 2022 LOW EXTEMITY NEUR EXAM DOCUM Jan 04, 2013 LOW EXTEMITY NEUR EXAM DOCUM Aug 26, 2013 EVAL ON FOOT DOCUMENTED Aug 25, 2014 DEBRIDE NAIL, 6 OR MORE January 14, 2019 EVAL ON FOOT DOCUMENTED Oct 27, 2014 DEBRIDE NAIL, 6 OR MORE Nov 30, 2015 LOW EXTEMITY NEUR EXAM DOCUM May 25, 2015 DEBRIDE NAIL, 6 OR MORE March 29, 2021 LOW EXTEMITY NEUR EXAM DOCUM March 16, 2015 Avulsion Plate June 06, 2014 Avulsion Plate February 10, 2014 LOW EXTEMITY NEUR EXAM DOCUM Jun 18, 2012 LOW EXTEMITY NEUR EXAM DOCUM March 19, 2012 Avulsion Plate June 14, 2021 DEBRIDE NAIL, 6 OR MORE Sep 13, 2021 Avulsion Plate Aug 22, 2022 Avulsion Plate Each Additional Jan 12, 2015 TRIM SKIN LESIONS, 2 TO 4 Jan 01, 2021 Avulsion Plate Oct 30, 2020 DEBRIDE NAIL, 6 OR MORE Aug 17, 2020 Avulsion Plate Each Additional March 29, 2021 DEBRIDE NAIL, 6 OR MORE Oct 25, 2019 TRIM SKIN LESIONS, 2 TO 4 April 08, 2019 Avulsion Plate Each Additional Nov 29, 2021 Avulsion Plate Each Additional February 11, 2022 TRIM SKIN LESIONS, TO May 01, 2020 TRIM SKIN LESIONS, 2 TO 4 Aug 16, 2019 TRIM SKIN LESIONS, 2 TO 4 January 14, 2019 DEBRIDE NAIL, 6 OR MORE February 01, 2016 BP SCR PRFRM RCMDD DEFIND SCR INTVL February 01, 2016 TRIM SKIN LESIONS, OVER 4 February 11, 2022 TRIMMING DYSTROPHIC NAILS ANY # Jul 25, 2011 TRIM SKIN LESIONS, OVER 4 Oct 31, 2022 Avulsion Plate June 10, 2022 DEBRIDE NAIL, 6 OR MORE February 10, 2014 DEBRIDE NAIL, 6 OR MORE Jun 18, 2012 DEBRIDE NAIL, 6 OR MORE Aug 27, 2012 TRIMMING DYSTROPHIC NAILS ANY # Dec 23, 2011 Avulsion Plate Each Additional March 16, 2015 DEBRIDE NAIL, 6 OR MORE June 06, 2014 DEBRIDE NAIL, 6 OR MORE Dec 02, 2013 TRIM SKIN LESIONS, 2 TO 4 Nov 29, 2021 TRIM SKIN LESIONS, OVER 4 June 10, 2022 PT VISIT DOC USING CCHIT CER Aug 27, 2012 Avulsion Plate Each Additional February 10, 2014 Avulsion Plate Each Additional June 06, 2014 DEBRIDE NAIL, 6 OR MORE Jan 12, 2015 LOW EXTEMITY NEUR EXAM DOCUM March 25, 2013 LOW EXTEMITY NEUR EXAM DOCUM Jun 17, 2013 TRIM SKIN LESIONS, 2 TO May 11, 2018 TRIM SKIN LESIONS, 2 TO May 25, 2015 TRIM SKIN LESIONS, 2 TO 4 Aug 21, 2015 Avulsion Plate Each Additional May 25, 2015 DEBRIDE NAIL, 6 OR MORE May 11, 2018 DEBRIDE NAIL, 6 OR MORE Aug 25, 2014 DEBRIDE NAIL, OR MORE Oct 27, 2014 DRAINAGE OF SKIN ABSCESS Aug 21, 2015 Avulsion Plate Nov 30, 2015 TRIMMING DYSTROPHIC NAILS ANY # Oct 03, 2011 Avulsion Plate May 25, 2015 Avulsion Plate Aug 21, 2015 DEBRIDE NAIL, 6 OR MORE March 25, 2013 TRIM SKIN LESIONS, TO Oct 27, 2014 DEBRIDE NAIL, 6 OR MORE Jun 17, 2013 TRIM SKIN LESIONS, 2 TO 4 Aug 25, 2014 DEBRIDE NAIL, 6 OR MORE Aug 26, 2013 DEBRIDE NAIL, 6 OR MORE Dec 19, 2016 TRIM SKIN LESIONS, 2 TO 4 Aug 26, 2013 DEBRIDE NAIL, 6 OR MORE Sep 16, 2016 TRIM SKIN LESIONS, 2 TO 4 Jun 17, 2013 DEBRIDE NAIL, 6 OR MORE Jul 08, 2016 TRIM SKIN LESIONS, 2 TO 4 March 25, 2013 DEBRIDE NAIL, 6 OR MORE April 08, 2016 DEBRIDE NAIL, 6 OR MORE Jul 27, 2018 DEBRIDE NAIL, 6 OR MORE Jan 01, 2018 DEBRIDE NAIL, 6 OR MORE Oct 23, 2017 DEBRIDE NAIL, 6 OR MORE June 05, 2017 Avulsion Plate Each Additional Nov 30, 2015 TRIM SKIN LESIONS, 2 TO 4 Dec 19, 2016 TRIM SKIN LESIONS, 2 TO 4 Oct 25, 2019 TRIM SKIN LESIONS, 2 TO 4 Aug 17, 2020 DEBRIDE NAIL, 6 OR MORE Oct 30, 2020 Avulsion Plate Sep 13, 2021 TRIM SKIN LESIONS, 2 TO 4 Jan 03, 2020 TRIM SKIN LESIONS, 2 TO 4 Jan 01, 2018 TRIM SKIN LESIONS, 2 TO 4 April 08, 2016 TRIM SKIN LESIONS, 2 TO 4 Jul 27, 2018 TRIM SKIN LESIONS, 2 TO 4 Oct 12, 2018 TRIM SKIN LESIONS, 2 TO 4 Sep 16, 2016 TRIM SKIN LESIONS, 2 TO 4 June 05, 2017 TRIM SKIN LESIONS, 2 TO 4 Oct 23, 2017 TRIM SKIN LESIONS, 2 TO 4 Jul 08, 2016 TRIM SKIN LESIONS, 2 TO 4 April 03, 2017 TRIM SKIN LESIONS, 2 TO 4 March 16, 2015 Avulsion Plate Dec 02, 2013 TRIM SKIN LESIONS, 2 TO 4 Jan 12, 2015 LOW EXTEMITY NEUR EXAM DOCUM Jan 12, 2015 LOW EXTEMITY NEUR EXAM DOCUM June 06, 2014 DEBRIDE NAIL, 6 OR MORE April 03, 2017 DEBRIDE NAIL, 6 OR MORE Aug 22, 2022 TRIM SKIN LESIONS, 2 TO 4 June 06, 2014 TRIM SKIN LESIONS, 2 TO 4 Dec 02, 2013 Avulsion Plate Jan 12, 2015 Avulsion Plate March 16, 2015 LOW EXTEMITY NEUR EXAM DOCUM Dec 02, 2013 LOW EXTEMITY NEUR EXAM DOCUM February 10, 2014 LOW EXTEMITY NEUR EXAM DOCUM Aug 27, 2012 TRIM SKIN LESIONS, 2 TO 4 Aug 27, 2012 Avulsion Plate Each Additional June 10, 2022 TRIM SKIN LESIONS, 2 TO 4 February 10, 2014 EVAL ON FOOT DOCUMENTED Aug 27, 2012 BP SCR PRFRM RCMDD DEFIND SCR INTVL Nov 30, 2015 EVAL ON FOOT DOCUMENTED Aug 26, 2013 TRIM SKIN LESIONS, 2 TO 4 Oct 03, 2011 TRIM SKIN LESIONS, 2 TO 4 Jan 04, 2013 DEBRIDE NAIL, 6 OR MORE Aug 16, 2019 DEBRIDE NAIL, 6 OR MORE April 08, 2019 DEBRIDE NAIL, 6 OR MORE Jan 03, 2020 DEBRIDE NAIL, 6 OR MORE Oct 12, 2018 DEBRIDE NAIL, 6 OR MORE June 14, 2021 Avulsion Plate March 29, 2021 DEBRIDE NAIL, 6 OR MORE Jan 01, 2021 DEBRIDE NAIL, 6 OR MORE Jan 04, 2013 Avulsion Plate Jan 04, 2013 RESULTS Name Result Date Reference Range HEMOGLOBIN A1C (GLYCOHEMOGLOBIN) 2022-10-21 TOTAL HEMOGLOBIN (HGBA1C) HEMOGLOBIN A1C (HH) HEMOGLOBIN A1C % (HH) 8.3 ESTIMATED AVG GLUCOSE HEMOGLOBIN A1C (GLYCOHEMOGLOBIN) 2019-09-12 TOTAL HEMOGLOBIN (HGBA1C) HEMOGLOBIN A1C (HH) HEMOGLOBIN A1C % (HH) 8.5 ESTIMATED AVG GLUCOSE Hemoglobin A1c 2018-03-16 Hemoglobin A1c 7.9 Hemoglobin A1c Hemoglobin A1c 8.2 Hemoglobin A1c Hemoglobin A1c 8.1 Hemoglobin A1c Hemoglobin A1c 8.1 Hemoglobin A1c Hemoglobin A1c 8.1 Hemoglobin A1c 2015-03-29 Hemoglobin A1c 8.1 Hemoglobin A1c 2014-09-22 Hemoglobin A1c 8.1 REASON FOR VISIT Insurance Providers [facility] Member Patient Patient Patient Patient Patient Subscriber Subscriber Subscriber Group Insurance Plan Plan Plan Plan ID Relationship Address Phone Name Date of ID Name Date of No Type Insurance Insurance Insurance Coverage to Subscriber Address Phone Name Dates Medicare National [id number] Medicare self Lisa 1934 [id number] [address] [employer] [address] [place] [address] [facility] [phone] [facility] self Lisa 1934 [id number] [place] [address] [place] [address] [place] [phone] [place] self Lisa [id number] [place] [id number] [place] [phone] MEDICAL (GENERAL) HISTORY Type Description Date Medical History Cholesterol Medical History transfusions Medical History thyroid disorder Medical History ingrown nails Medical History gall bladder problems Medical History cancer Medical History back, hip, knee pain Medical History Arthritis Medical History hypertension Medical History type I diabetes Surgical History cancer surgery Surgical History cataract surgery Surgical History cholecystectomy Surgical History Left hip replacement - 2003 Surgical History hysterectomy Surgical History thyroidectomy Surgical History needle Biopsy breast tissue 01/2017,02/15 017 Surgical History Breast biopsy -[facility] [place] 03/2017 Surgical History Total Right Hip replacement Surgery 03/31 Hospitalization History Vertigo. 10/2011 Hospitalization History Vertigo 07/2012
[2022-11-24 21:40] LABS: Alanine Aminotransferase 10 U/L (0-31); Albumin Level 3.8 g/dL (3.5-5.0); Alkaline Phosphatase 72 U/L (39-117); Anion Gap 14 (12-20); Aspartate Amino Transferase 19 U/L (5-31); Bilirubin Total 0.4 mg/dL (0.0-1.0); Blood Urea Nitrogen 22 mg/dL (9-16); Carbon Dioxide 25 mmol/L (22-29); Chloride 105 mmol/L (96-108); Creatinine Clr Calc Pharmacy 35.2; Estimated Glomerular Filt Rate 43; Glucose Random 64 mg/dL (60-115); Potassium 4.5 mmol/L (3.3-5.1); Sodium 139 mmol/L (135-145); Total Protein 6.2 g/dL (6.5-8.0)
[2022-11-24 21:50] VITALS: BP 113/54; BP 126/57; PULSE 72; PULSE 92; RESP 16; O2SAT 97
[2022-11-24] MEDS: 0.9 % Sodium Chloride 1,000 ML 999 ML IV (22:57)
[2022-11-24 23:21] VITALS: BP 112/54; PULSE 73; RESP 12; TEMP 36.7; O2SAT 96
[2022-11-25 00:52] LABS: Appearance Urine Cloudy; Color Urine Yellow; Glucose Urine UA Negative (Negative); Leukocyte Esterase Urine Moderate (2+) (Negative); Nitrite Urine Positive (Negative); UMIC TRIGGER UACC YES; Urine Blood Negative (Negative); Urine Ketones Trace mg/dL (Negative); Urine Protein Negative (Neg-Trace)
[2022-11-25 00:54] LABS: Bacteria Urine 4+ (None Seen); RBC Urine 0-2 /HPF (0-2); Squamous Epithelial Cell Urine >20 /HPF (0-2); UACC Culture Trigger YES; WBC Urine 21-50 /HPF (0-5)
[2022-11-25] MEDS: Acetaminophen 325 MG TABLET 650 MG PO (00:54)
[2022-11-25] MEDS: cefTRIAXone sodium 1 GM in 0.9 % Sodium Chloride 50 ML IV (01:12)
== END 2022-11-25 01:28 | disposition home or self-care (01) ==
PROVIDERS: Emergency Provider Internal Medicine; PCP Internal Medicine
DX: N39.0 Urinary tract infection, site not specified (principal); B96.20 Unspecified Escherichia coli [E. coli] as the cause of diseases classified elsewhere; I44.7 Left bundle-branch block, unspecified; R53.1 Weakness; I10 Essential (primary) hypertension; E11.9 Type 2 diabetes mellitus without complications; Z79.4 Long term (current) use of insulin; Z79.02 Long term (current) use of antithrombotics/antiplatelets; Z79.899 Other long term (current) drug therapy
CPT/HCPCS: 36415; 71045; 80053; 81001; 84484; 85025; 87086; 87088; 87186; 93005; 96361; 96374; 99284; J0696

== ENCOUNTER → 2023-02-12 13:59 | Outpatient (BNVA) | payer MEDICARE, OTHER, SELFPAY | PROVIDERS: PCP Internal Medicine; Referring Provider Internal Medicine; Visit Provider Internal Medicine Cardiovascular Disease | DX: I44.7 Left bundle-branch block, unspecified (principal) | CPT/HCPCS: 99202 ==

== ENCOUNTER → 2023-02-26 10:11 | Outpatient (REF) | payer MEDICARE, OTHER, SELFPAY ==
--- NOTE | 2023-02-26 10:18 | CA_ITS ---
Transthoracic Echocardiogram Patient (Last, First, Middle): Lisa Holliday A Gender: Female Date of : 1935 Age: 87 Procedure Date: 02/26/2023 Procedure Type: Transthoracic Echocardiogram Location: OP Height: 167.64 cm Weight: 83.92 kg BSA: 1.93 m2 Heart Rate: bpm BP: 145 / 80 mmHg Licensed Psychologist Manager: ANALISA Referring MD: Danilo Avila MD Drafter Commercial: Danilo Avila MD Symptoms: I44.7 - Left bundle-branch block, unspecified Study Quality: Fair, contrast ECG Rhythm: Sinus Conclusions: - 1. Normal LV ejection fraction 55-60% with impaired relaxation filling pattern 2. Cardiac valvular Doppler within normal limits 3. Normal RV systolic pressure 4. No gross pericardial effusion Findings Procedure Information Contrast agent, definity, is being given per protocol without apparent complications. Left Ventricle Normal left ventricular size, thickness, and systolic function. The visually estimated ejection fraction is between 55-60%. There is paradoxical septal motion consistent with a left bundle branch block. Spectral Doppler is indicative of an impaired relaxation filling pattern. E/E prime ratio is between 8 and 15 consistent with indeterminate filling pressures. Right Ventricle The right ventricle was not well visualized. Atria The left atrium is normal in size. There is lipomatous hypertrophy of the interatrial septum. There is no evidence of interatrial shunt. The right atrium was not well visualized. Aortic Valve The aortic valve was not well visualized. There is no aortic valve stenosis. There is no aortic valve regurgitation. Mitral Valve Likely normal mitral valve structure and function. There is trace mitral valve regurgitation. There is no mitral valve stenosis. Pulmonic Valve The pulmonic valve was not well visualized. Tricuspid Valve Likely normal tricuspid valve structure and function. There is trace tricuspid valve regurgitation. The right ventricular systolic pressure is normal. The right ventricular systolic pressure is 26 mmHg. Normal right atrial pressure. There is no evidence of pulmonary hypertension. Great Vessels All visible segments of the aorta are normal in size. The pulmonary artery was not well visualized. Venous The inferior vena cava is normal in size and collapses greater than 50% with inspiration. Pericardium/Pleural There is no evidence of pericardial effusion. Measurements 2D Linear Measurements IVSd: 1.04 0.6-0.9/0.6-1.0 cm LVIDd: 4.65 3.9-5.3/4.2-5.9 cm LVIDd Index: 2.41 2.4-3.2/2.2-3.1 cm/m2 LVIDs: 3.01 2.0-3.6 cm LVPWd: 1.07 0.7-1.1 cm LA Diam: 3.30 2.7-3.8/3.0-4.0 cm LAIDs Index: 1.71 1.5-2.3 cm/m2 LV Mass: 216.71 67-162/88-224 g LV Mass Index: 112.28 43-95/49-115 g/m2 LVOT Diam: 2.00 3.0+(-)1.3 cm 2D Systolic Function EF 4C: 57.30 >55% EF 2C: 48.60 >55% EF BiP: 57.00 >55% Mitral Valve MV Pk E: 1.02 MV PK A: 1.09 MV Decel Time: 148.00 E/A: 0.90 E'Lateral: 12.20 E'Medial: 5.44 E/E' Med: 18.80 E/E' Lat: 8.40 PHT: 43.00 MVA PHT: 5.12 Decel [place]: 6.84 Aortic Valve AoV Pk Yunior: 1.48 AoV Mn Yunior: 0.95 AoV VTI: 0.28 AoV Pk Grad: 9.00 Aov Mn Grad: 4.00 SALLIE Cont.VTI: 1.87 LVOT LVOT Pk Yunior: 0.88 LVOT Mn Yunior: 0.57 LVOT VTI: 0.17 LVOT Pk Grad: 3.00 LVOT Mn Grad: 2.00 LVOT Diam: 2.00 LVOT Area: 3.14 Diastolic Function MV Pk E: 1.02 MV Pk A: 1.09 E/A: 0.90 E'Medial: 5.44 E/E' Med: 18.80 E' Laterial: 12.20 E/E' Lat: 8.40 Right Ventricle TAPSE (mm): 23.80 TVS' Yunior: 13.20 Tricuspid Valve TR Pk Yunior: 2.42 TR Pk Grad: 23.00 RA Press: 3.00 RVSP: 26.00 Great Vessels Aorta Sinus of Valsalva: 3.30 2.0-3.[address] [place]: 2.53 1.7-3.4 cm Ao Asc: 3.30 2.1-3.4 cm Updated in Other Vendor System with Status of Final Danilo Avila MD electronically signed on 02/27/2023 1:00:17 PM with status of Final
== END ==
LOC: HO.CARD 10:11
PROVIDERS: PCP Internal Medicine; Visit Provider Internal Medicine Cardiovascular Disease
DX: I44.7 Left bundle-branch block, unspecified (principal)
CPT/HCPCS: 93306; Q9957

== ENCOUNTER → 2023-02-27 09:48 | Outpatient (REF) | payer MEDICARE, OTHER, SELFPAY ==
--- NOTE | ~2023-02-27 | NM_ITS ---
Myocardial perfusion study Indication: Left bundle branch block to evaluate for myocardial ischemia Technique: The patient was brought in for a Lexiscan perfusion study on 02/27/2023. Patient performed low-level exercise and was injected 0.4 mg of Lexiscan intravenously. Within a minute of injection, 30 mCi of sestamibi was given intravenously. Images were obtained using the SPECT gamma camera interlaced with the gating device. Images were obtained in supine position. Resting perfusion study was performed on 03/04/2023. Patient was administered 30 mCi of sestamibi intravenously at rest. Images were then obtained in supine position. Images obtained with and without CT attenuation. Total DLP 71 mGy-cm. Images were processed with the software and compared side to side in short axis, horizontal long axis and vertical long axis views. Findings: The stress perfusion study showed non attenuated images show severely reduced to absent uptake in focal area of distal lateral, inferoapical wall of the LV myocardium. There is also mildly reduced uptake in the lateral and mid and basal inferior wall of the LV myocardium.. The gated study shows normal LV systolic function with calculated LVEF of 57%. LV cavity is normal size. The gated study shows normal systolic wall thickening and contraction of segments. Resting study shows nontender images show improved uptake in the distal lateral and inferoapical wall of the LV myocardium.. Gating at rest reveals normal systolic wall motion with ejection fraction at 51%. The findings are consistent with focal area of moderate intensity inferoapical and distal inferolateral/lateral wall reversible defect consistent with ischemia. NM/NM jaun perf SPECT rest & str Impression: 1. Myocardial perfusion imaging study shows moderate intensity inferoapical and distal inferolateral ischemia 2. Gated LVEF is 57% 3. Transient ischemic dilatation not present EKG is nondiagnostic for ischemia
--- NOTE | 2023-02-27 09:53 | CA_ITS ---
Acquisition Time: 2023-02-27 10:23:50 Total Exercise Time: 00:02:00 Test Indications: LBBB Medications: SEE H Protocol: LEXISCAN Max HR: 105 BPM 78% of Pred: 133 BPM Max BP: 112/064 mmHG Max Work Load: 1.0 METS Pharmacological stress test with Lexiscan injection while sitting and not moving, without anginal symtpoms, without arrythmia, with normotensive response to injection, with non-diagnositic EKG. Nuclear images pending. Test reviewed with Dr. Avila. Referred By: Danilo Avila Overread By: ELISABETH FELIX
--- NOTE | 2023-02-27 09:53 | HM_ITS ---
* Total monitoring time about 3 days. * Underlying rhythm is sinus. Average ventricular rate 80/Min. Range 43 to 110/Min. * Frequent supraventricular ectopy. Anderson of 5.5%. * Rare ventricular ectopy. * No significant pauses or AV blocks. * No patient markers or relevant events in diary. MTDD
== END ==
LOC: HO.CARD 09:48
PROVIDERS: PCP Internal Medicine; Visit Provider Internal Medicine Cardiovascular Disease
DX: I44.7 Left bundle-branch block, unspecified (principal)
CPT/HCPCS: 78452; 93017; 93242; A9500; J0280; J2785

== ENCOUNTER → 2023-03-11 13:24 | Outpatient (BNVA) | payer MEDICARE, OTHER, SELFPAY | PROVIDERS: PCP Internal Medicine; Referring Provider Internal Medicine; Visit Provider Internal Medicine Cardiovascular Disease | DX: I25.10 Atherosclerotic heart disease of native coronary artery without angina pectoris (principal); I49.9 Cardiac arrhythmia, unspecified; I44.7 Left bundle-branch block, unspecified | CPT/HCPCS: 99212 ==

== ENCOUNTER 2024-04-21 14:26 | Outpatient (AMB) | payer MEDICARE, OTHER, SELFPAY ==
[2024-04-21 14:32] VITALS: BP 126/82; PULSE 50; BMI 32.0
--- NOTE | 2024-04-21 14:32 | MHC.OFFVIS ---
Vital Signs 04/21/24 14:32 Height 5 ft 6 in Weight 198 lb 6.656 oz BMI 32.0 BP 126/82 Blood Pressure Location Lt brachial Position Sitting Pulse 50 Intake Visit Reasons: 1 yr f/up Intake Note: 1 year follow-up with ekg kyle kendall Pipe Fitter Soft Copper Required: No Allergies adhesive tape [Adhesive Tape] Allergy (Unknown, Verified 03/11/23 13:31) SKIN REDNESS Medication List - Last Reconciled 04/21/24 by Danilo Avila MD hydrochlorothiazide 25 mg PO insulin aspart U-100 units subcut insulin glargine units subcut levothyroxine 100 mcg PO lisinopril 20 mg PO metoprolol succinate ER 25 mg PO pravastatin 80 mg PO DAILY HPI Comments Details: Lisa comes for follow-up. She denies any cardiac symptoms. Continues to remain independent and active. Had 1 fall but did not seek emergency care at that time. Denies any chest pain. No lightheadedness, syncope. Denies any heart failure symptoms. Takes all her medications. 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/ [employer] Const Denies chills, Denies fatigue, Denies fever(s), Denies frequent falls, Denies weakness, Denies weight gain and Denies weight loss ENT Denies dizziness Card Denies chest pain, Denies leg edema, Denies lightheadedness, Denies palpitations, Denies dyspnea, Denies dyspnea on exertion, Denies orthopnea and Denies other (loss of consciousness) Resp Denies cough, Denies dyspnea and Denies dyspnea on exertion GI Denies hematochezia and Denies change in stool character Musc Denies abnormal gait, Denies muscle weakness, Denies numbness, Denies radiating pain into limb and Denies tingling Neuro Denies abnormal gait, Denies dizziness, Denies frequent falls, Denies numbness, Denies tingling and Denies weakness Endo Denies fatigue and Denies palpitations Physical Exam Vital Signs: Last Vital Signs Pulse 50 04/21/24 14:32 BP 126/82 04/21/24 14:32 BMI result Body Mass Index 32.0 Const General: cooperative, comfortable, alert and awake Nutritional Appearance: overweight and other (Frail elderly woman) Orientation/consciousness: patient oriented x3 Limitations: ambulation with cane Neck Neck: Yes trachea midline, Yes supple and Yes no JVD Resp Effort & Inspection: normal respiratory effort Cardio Jugular venous distension: no JVD Palpation: normal PMI Rate: regular rate Rhythm: regular rhythm Heart sounds: S1 normal heart sound present, S2 normal heart sound present, no click, no gallops and Murmur heart sound present systolic early Neuro General: patient oriented x3 and no focal motor deficits Extrem General: Yes no clubbing, cyanosis or edema Office Procedures EKG Details: EKG shows sinus bradycardia with left bundle-branch block otherwise normal EKG, unchanged from before [id number], Complete Assessment & Plan Assessment & Plan (1) CAD (coronary artery disease): Code(s): I25.10 - Atherosclerotic heart disease of [place] coronary artery without angina pectoris Category: Medical Plan: CAD with branch vessel ischemia without any symptoms. Continue aggressive medical therapy. Continue low-dose aspirin therapy. Continue statin therapy with target goal LDL less than 70 mg/dL being pursue through office. Continue aggressive blood pressure control which is currently well optimized. Diabetes management as per you with goal hemoglobin A1c less than 7%. Advised to call me with any new symptoms. (2) Left bundle branch block: Code(s): I44.7 - Left bundle-branch block, unspecified Category: Medical Plan: Left bundle-branch block which has remained stable. No interventions required per se for the same. One in 6 patients can develop cardiomyopathy. I have discussed signs and symptoms of heart failure. She has no other symptoms of lightheadedness. No pacing therapy indicated. Will follow up in the clinic in 1 year's time, sooner p.r.n.. Thank you for allowing me to partake in her care Coding Level of Care Code Est Pt Level 4 (32398) Diagnoses CAD (coronary artery disease) I25.10 Left bundle branch block I44.7 CPT Codes EKG - CPT: 11641-[id number], Complete ([id number])
== END 2024-04-21 14:52 | disposition home or self-care (01) ==
PROVIDERS: PCP Internal Medicine; Visit Provider Internal Medicine Cardiovascular Disease
DX: I25.10 Atherosclerotic heart disease of native coronary artery without angina pectoris (principal); I44.7 Left bundle-branch block, unspecified
CPT/HCPCS: 93010; 99214

== ENCOUNTER → 2024-04-21 14:26 | Outpatient (BNVA) | payer MEDICARE, OTHER, SELFPAY | PROVIDERS: PCP Internal Medicine; Visit Provider Internal Medicine Cardiovascular Disease | DX: I44.7 Left bundle-branch block, unspecified (principal); I25.10 Atherosclerotic heart disease of native coronary artery without angina pectoris; I10 Essential (primary) hypertension | CPT/HCPCS: 93005; 99212 ==

== ENCOUNTER 2024-10-31 17:56 | Inpatient (IN) | payer MEDICARE, OTHER, SELFPAY ==
--- NOTE | ~2024-10-31 | XR_ITS ---
EXAMINATION: XR CHEST CLINICAL INFORMATION: pre surgical COMPARISON: X-ray 11/24/2022 TECHNIQUE: Frontal view of the chest was obtained. FINDINGS: Tilted, rotated positioning limiting evaluation. Prominence of the cardiac and mediastinal silhouette, accentuated by positioning/technique. Slightly low lung volumes. Patchy opacity in the left costophrenic region, could reflect atelectasis/scarring or trace effusion. No pulmonary edema. XR/XR chest 1V IMPRESSION: Opacity in the left costophrenic angle region, could reflect atelectasis/scarring or trace effusion. Electronically signed by: Freeman Lopez MD 10/31/2024 09:15 PM [facility]
--- NOTE | ~2024-10-31 | XR_ITS ---
EXAMINATION: X-RAY LEFT HIP X-RAY LEFT FEMUR CLINICAL INFORMATION: Trauma. COMPARISON: None TECHNIQUE: Pelvis 1 view. Left hip 2 views. Left femur 4 views. FINDINGS: Left total hip arthroplasty. Normal articulation of the arthroplasty components. There is an acute periprosthetic fracture of the femoral diaphysis, at the level of the distal portion of the femoral component of the prosthesis. The distal bone is medially displaced by almost a full shaft width. The distal bone is medially angulated, and appears to be rotated in positioning. Articulation of the knee joint is maintained.. No additional acute fractures identified. Right total hip arthroplasty in usual position and alignment. Moderate symphysis pubis degeneration. The SI joints are intact. No pubic rami fracture identified. Degenerative changes in the lower lumbar spine. Vascular calcifications present. XR/XR femur LT 2V IMPRESSION: 1. Left total hip arthroplasty with normal articulation of the arthroplasty components. 2. Acute periprosthetic fracture of the left femoral diaphysis, at the level of the distal aspect of the femoral prosthetic component, with displacement, angulation or rotation as detailed above. 3. Right total hip arthroplasty, with no evidence of acute osseous abnormality. Electronically signed by: Freeman Lopez MD 10/31/2024 10:06 PM [facility]
--- NOTE | ~2024-10-31 | FL_ITS ---
EXAMINATION: FLUOROSCOPY GUIDANCE FOR NEEDLE PLACEMENT CLINICAL INFORMATION: Femur ORIF. COMPARISON: None available. TECHNIQUE: Fluoroscopy and spot films provided during ORIF to Dr. Baumann. FINDINGS: A lateral plate and screw is present along the lateral aspect of the femur. A left total hip prosthesis is partially visualized with cerclage sutures. FLUOROSCOPY TIME: 8 min. DOSE AREA PRODUCT: 0.345 mGy-m2 (milligray-meter squared). FL/FL guidance in OR IMPRESSION: Fluoroscopy and spot films provided during ORIF. Electronically signed by: Juan Antonio Kent MD 11/07/2024 12:44 PM [facility]
--- NOTE | ~2024-10-31 | CT_ITS ---
EXAMINATION: CT HEAD WITHOUT CONTRAST CT CERVICAL SPINE WITHOUT CONTRAST CLINICAL INFORMATION: Trauma. COMPARISON: None available. TECHNIQUE: Contiguous axial imaging was performed from the skull base to vertex without intravenous administration of contrast. Contiguous axial imaging was performed from the upper chest through the skull base without intravenous administration of contrast. Coronal and sagittal reformats were obtained at the acquisition workstation. This CT examination was performed using dose optimization techniques as appropriate, variously including the following: *Automated exposure control. *Adjustment of mA and/or kV according to patient size (this includes techniques or standardized protocols for targeted exams where dose is matched to indication/reason for exam; i.e. extremities or head). *Use of iterative reconstruction technique. DLP: 1195 mGy-cm FINDINGS: Head: There is no evidence of acute intracranial hemorrhage or edematous territorial infarction. Hawkins-white matter differentiation is preserved. Scattered and partially confluent hypoattenuation in the periventricular and deep white matter are consistent with moderate microangiopathy. Proportional prominence of the ventricles and sulcal spaces without evidence of obstructive hydrocephalus. There is a 0.8 cm calcified extra-axial nodule along the left vertex suggestive of a small meningioma. No abnormal mass effect or midline shift. No extra-axial fluid collections. Calcific atherosclerotic disease of the intracranial internal carotid and vertebral arteries. No hyperdense vessel sign. No acute soft tissue or osseous abnormalities. Mild mucosal thickening of the paranasal sinuses. The mastoid air cells and middle ear cavities are clear. Bilateral lens extractions. Cervical Spine: The atlantooccipital and atlantoaxial articulations remain well aligned. Moderate to advanced degenerative arthropathy of the atlantodental articulation. Straightening of the normal cervical lordosis. Mild degenerative anterolisthesis of C4 on C5. Otherwise, there is anatomic alignment of the vertebral bodies and posterior elements. Ankylosis of the left-sided C4-C5 facets. No evidence of acute fracture or subluxation. The vertebral body heights are maintained. Advanced degenerative disc disease from C5-C7. Mild to moderate degenerative disc disease at all additional levels. Facet and uncovertebral joint arthropathy leads to osseous encroachment on the neural foramina from C2-C7. There is no prevertebral soft tissue swelling. The thyroid gland is atrophic/absent. The remaining cervical soft tissues are within normal limits. The lung apices demonstrate no abnormalities. CT/CT cervical spine wo IV con IMPRESSION: 1. No evidence of acute intracranial hemorrhage or edematous territorial infarction. Moderate underlying microangiopathy and generalized cerebral volume loss. 2. No evidence of acute fracture or traumatic subluxation of the cervical spine. Moderate multilevel degenerative spondyloarthropathy of the cervical spine. Electronically signed by: Syd Bill DO 10/31/2024 08:46 PM [facility]
--- NOTE | ~2024-10-31 | XR_ITS ---
EXAMINATION: X-RAY LEFT HIP X-RAY LEFT FEMUR CLINICAL INFORMATION: Trauma. COMPARISON: None TECHNIQUE: Pelvis 1 view. Left hip 2 views. Left femur 4 views. FINDINGS: Left total hip arthroplasty. Normal articulation of the arthroplasty components. There is an acute periprosthetic fracture of the femoral diaphysis, at the level of the distal portion of the femoral component of the prosthesis. The distal bone is medially displaced by almost a full shaft width. The distal bone is medially angulated, and appears to be rotated in positioning. Articulation of the knee joint is maintained.. No additional acute fractures identified. Right total hip arthroplasty in usual position and alignment. Moderate symphysis pubis degeneration. The SI joints are intact. No pubic rami fracture identified. Degenerative changes in the lower lumbar spine. Vascular calcifications present. XR/XR hip LT w PEL1V IMPRESSION: 1. Left total hip arthroplasty with normal articulation of the arthroplasty components. 2. Acute periprosthetic fracture of the left femoral diaphysis, at the level of the distal aspect of the femoral prosthetic component, with displacement, angulation or rotation as detailed above. 3. Right total hip arthroplasty, with no evidence of acute osseous abnormality. Electronically signed by: Freeman Lopez MD 10/31/2024 10:06 PM [facility]
[2024-10-31 18:06] VITALS: BP 167/80; PULSE 58; O2SAT 98
[2024-10-31 18:08] VITALS: BP 142/54; PULSE 52; RESP 16; TEMP 36.7; O2SAT 97; BMI 31.9
--- NOTE | 2024-10-31 18:27 | ECG_ITS ---
Test Reason : EKG Blood Pressure : / mmHG Vent. Rate : 057 BPM Atrial Rate : 000 BPM P-R Int : 000 ms QRS Dur : 160 ms QT Int : 512 ms P-R-T Axes : 000 -03 040 degrees QTc Int : 498 ms Normal sinus rhythm with PAC's Left bundle branch block Abnormal ECG When compared with ECG of 24-NOV-2022 20:59, No significant changes seen Referred By: Hermila Laguna Electronically Signed By:SEAMUS RODRIGUEZ
--- NOTE | 2024-10-31 18:33 | ED.FALL ---
HPI - Fall General Chief Complaint: Fall Stated Complaint: mechanical fall Time Seen by Provider: 10/31/24 18:04 Source: patient Limitations: other (hearing impairment) History of Present Illness ED Provider: Hermila Laguna PA-C HPI Narrative: 89-year-old female with a history of hypertension, diabetes, hypothyroidism, hyperlipidemia, coronary artery disease, known left bundle branch block, arthritis, status post bilateral hip replacements greater than 20 years ago, presents after mechanical fall at home. Patient states she was in the kitchen, she started to stumble backwards, she subsequently fell to the floor landing against the wall, patient now with extreme left femur and hip pain. No loss of consciousness, the patient does not use a blood thinner, unclear if she struck her head. Related Data Home Medications ?Medication ?Instructions ?Recorded ?Confirmed insulin aspart U-100 100 unit/mL See Protocol subcut TIDAC 04/03/21 10/31/24 (3 mL) subcutaneous pen insulin glargine 100 unit/mL (3 24 unit subcut DAILY 04/03/21 10/31/24 mL) subcutaneous pen levothyroxine 100 mcg tablet 100 mcg PO DAILY@0600 02/12/23 10/31/24 metoprolol succinate 25 mg 25 mg PO DAILY 02/12/23 10/31/24 tablet,extended release 24 hr pravastatin 80 mg tablet 80 mg PO DAILY 02/12/23 10/31/24 acetaminophen 325 mg tablet 325 mg PO DAILY PRN Pain/Fever 10/31/24 10/31/24 (Tylenol) lisinopril 10 1 tab PO DAILY 10/31/24 10/31/24 mg-hydrochlorothiazide 12.5 mg tablet Allergies Allergy/AdvReac Type Severity Reaction Status Date / Time adhesive tape [Adhesive Tape] Allergy Unknown SKIN Verified 10/31/24 18:09 REDNESS Review of Systems Review of Systems: Yes all other systems are reviewed and are negative Constitutional: Constitutional: Denies fatigue and Denies fever(s) Cardiovascular: Cardiovascular: Denies chest pain and Denies dyspnea Respiratory: Respiratory: Denies dyspnea Gastrointestinal: Gastrointestinal: Denies abdominal pain and Denies nausea Musculoskeletal: Musculoskeletal: Reports deformity, Reports arthralgias, Denies joint swelling, Denies numbness and Denies tingling Neurologic: Denies numbness and Denies tingling Endocrine: Endocrine: Denies fatigue PMFSH Past Medical History Attestation statement: The following information was validated with the patient. 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 Exam Vital Signs: Vital Signs: Last Vital Signs Temp 97.8 F 10/31/24 20:00 Pulse 55 10/31/24 22:00 Resp 14 10/31/24 22:00 BP 144/45 H 10/31/24 22:00 Pulse Ox 93 10/31/24 22:00 O2 Del Method Room Air 10/31/24 22:00 BMI result Body Mass Index 31.9 Const: Other: Alert, overall well-appearing Orientation/consciousness: patient oriented x3 Resp: Other: Nonlabored respiration Cardio: Other: Normal peripheral perfusion Skin: Other: Warm dry no rash Neuro: Other: Hearing impairment noted, you need to speak loudly to the patient, she does not have her hearing aids General: patient oriented x3, no focal motor deficits and CN's II-XI intact bilaterally Extrem: Other: Left upper extremity held in external rotation and flexed at the left knee, she is unable to fully extend from the knee secondary to extreme pain in the mid femur, no palpable pain of the hip Psych: Other: Calm cooperative Course Reevaluation(s) Reevaluation #1: Patient was repositioned, she is now able to extend the left knee, Time: 19:03 Consultations Consultation #1: Paging Dr. Baumann for consult Time: 19:03 Consultation #2: I do not initially see that there was an MARIELENA on for the ortho Service, I am reaching out Ta-Jen now Ortho states admit to Medicine, I am presuming it is due to the new onset AFib, no further recommendations per ortho Time: 19:31 Medications Administered Discontinued Medications Generic Name Dose Route Start Last Admin Trade Name Freq PRN Reason Stop Dose Admin Morphine Sulfate 4 mg 10/31/24 19:56 10/31/24 20:39 Morphine Sulfate 4 Mg/Ml Cartridge IVPUSH 10/31/24 19:57 4 mg ONCE ONE Administration Protocol Ondansetron HCl 4 mg 10/31/24 20:03 10/31/24 20:39 Ondansetron Hcl 4 Mg/2 Ml Vial IVPUSH 10/31/24 20:04 4 mg ONCE ONE Administration Medical Decision Making Medical Decision Making MDM Narrative: 89-year-old female with a history of hypertension, diabetes, hypothyroidism, hyperlipidemia, coronary artery disease, known left bundle branch block, arthritis, status post bilateral hip replacements greater than 20 years ago, presents after mechanical fall at home. Patient states she was in the kitchen, she started to stumble backwards, she subsequently fell to the floor landing against the wall, patient now with extreme left femur and hip pain. No loss of consciousness, the patient does not use a blood thinner, unclear if she struck her head. Problem: Age, diabetes History: Per patient I have considered the following differential diagnoses: Fracture, dislocation, sprain, intracranial hemorrhage, cervical spine injury Plan: There was concern for fracture given the manner in which the patient is holding her left lower extremity, in his unwilling to range the leg. We will be obtaining x-rays of the femur hip pelvis. Given her age, and she likely struck her head, I am scanning her head and neck. It is reassuring that she is neurologically intact, not actively vomiting to suggest an intracranial hemorrhage. She also has full range of motion of the neck without midline tenderness, no complain of neck pain, to suggest cervical spine injury. Her pain is currently controlled, she received 75 mcg of fentanyl per EMS. I have independently reviewed the following tests: Labs: Leukocytosis noted, however she has no infectious signs symptoms, I believe this to be reactive secondary to her injury, not anemic, no electrolyte abnormality EKG: Presumed new AFib, rate of 57, known left bundle branch block, no ischemic changes, QTC 490 X-ray femur: displaced mid shaft femoral fracture X-ray left hip pelvis: Bilateral prosthesis in place, no fracture no dislocation Chest x-ray: Patient rotated, no pleural effusion or pulmonary edema no pneumonia noted CT brain/c spine: CT/CT head/brain wo IV con IMPRESSION: 1. No evidence of acute intracranial hemorrhage or edematous territorial infarction. Moderate underlying microangiopathy and generalized cerebral volume loss. 2. No evidence of acute fracture or traumatic subluxation of the cervical spine. Moderate multilevel degenerative spondyloarthropathy of the cervical spine. Electronically signed by: Syd Zapata Lab Data 10/31/24 21:27 10/31/24 21:27 Labs: Lab Results 10/31/24 Range/Units 21:27 WBC 17.7 H (4.8-10.8) X10*3/uL RBC 4.69 (4.20-5.50) X10*6/uL Hgb 11.6 L (12.0-16.0) g/dl Hct 35.9 L (37.0-47.0) % MCV 76.5 L (80.0-98.0) fL MCH 24.7 L (27.0-33.0) pg MCHC 32.3 (31.0-35.0) g/dl RDW 18.4 H (11.0-16.0) % Plt Count 298 (160-400) X10*3/uL MPV 9.9 (9.4-12.3) fL Immature Gran % (Auto) 0.5 H (0.0-0.4) % Neut % (Auto) 91.0 H (45-73) % Lymph % (Auto) 4.4 L (20-40) % [place] % (Auto) 3.7 (2-11) % Eos % (Auto) 0.1 (0-4) % Baso % (Auto) 0.3 (0-2) % Lymph # (Auto) 0.8 L (1.2-4.9) X10*3/uL [place] # (Auto) 0.7 (0.1-1.2) X10*3/uL Eos # (Auto) 0.0 (0.0-0.4) X10*3/uL Baso # (Auto) 0.1 (0.0-0.2) X10*3/uL Abs Immat Gran (auto) 0.08 H (0.00-0.03) X10*3/uL Absolute Neuts (auto) 16.1 H (2.0-8.3) x10*3/uL Absolute Nucleated RBC 0.000 (0.0-0.012) X10*3/uL Nucleated RBC % (auto) 0.0 (0.0-0.2) /100WBC PT 11.6 (10.9-12.4) SEC INR 1.0 (0.9-1.1) Sodium 135 (135-145) mmol/L Potassium 4.0 (3.3-5.1) mmol/L Chloride 103 (96-108) mmol/L Carbon Dioxide 25 (22-29) mmol/L Anion Gap 11 L (12-20) BUN 26 H (9-16) mg/dL Creatinine 0.98 (0.5-1.4) mg/dL Estim Creat Clear Calc 45.4 Estimated GFR 53 Random Glucose 112 (60-115) mg/dL Calcium 9.0 (8.4-10.2) mg/dL Magnesium 2.0 (1.6-2.6) mg/dL Total Bilirubin 0.4 (0.0-1.0) mg/dL AST 34 H (5-31) U/L ALT 14 (0-31) U/L Alkaline Phosphatase 65 (39-117) U/L Total Protein 7.2 (6.5-8.0) g/dL Albumin 3.9 (3.5-5.0) g/dL Discharge Plan Discharge Clinical Impression: Closed left femoral fracture Patient Disposition: Admitted As Inpatient
--- OUTSIDE RECORDS SUMMARY | 2024-10-31 19:06 | XMS_ITS | Continuity of Care Document ---
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 Name Role Phone Janes Foster MD Primary Care Physician [phone] Encounter [facility] Date(s): 09/22/24 - 10/22/24 [facility] Adult [address] [place] [address]- Encounter Type: Triage Allergies, Adverse Reactions, Alerts No Known Allergies Immunizations Given and Recorded Vaccine Date Status Refusal Reason Influenza Virus Vaccine (oldterm) 1 07/31/24 Recor ded Influenza Virus Vaccine (oldterm) 08/25/22 Recorde d Influenza Virus Vaccine (oldterm) 2 07/30/20 Recor ded Influenza Virus Vaccine (oldterm) 07/30/20 Recorde d Influenza Virus Vaccine (oldterm) 08/13/19 Recorde d Influenza Virus Vaccine (oldterm) 3 08/16/17 Given Influenza Virus Vaccine (oldterm) 4 08/03/09 Given SARS-CoV-2 mRNA ([id number]) vax 5 07/31/24 Recorded SARS-CoV-2 mRNA ([id number]-[id number]) vax 04/03/22 Recorded influenza virus vaccine, inactivated 07/30/24 Bill rded influenza virus vaccine, inactivated 08/22/23 Bill rded influenza virus vaccine, inactivated 6 08/24/21 Re corded influenza virus vaccine, inactivated 08/14/18 Give n influenza virus vaccine, inactivated 08/03/17 Bill rded influenza virus vaccine, inactivated 7 08/17/16 Gi rhianna influenza virus vaccine, inactivated 8 11/13/15 Gi rhianna influenza virus vaccine, inactivated 10/6/14 Give n influenza virus vaccine, inactivated 9 08/17/13 Gi rhianna influenza virus vaccine, inactivated 10 07/22/12 G iven influenza virus vaccine, inactivated 11 09/09/06 G iven SARS-CoV-2(COVID-19)mRNA-LNP vac([id number]) 07/30/24 Recorded RSV vaccine preF3, recombinant 12/19/23 Recorded zoster vaccine, inactivated 07/25/23 Recorded zoster vaccine, inactivated 05/23/23 Recorded pneumococcal 20-valent conjugate vaccine 05/22/23 Given [id number] 12y+ bivalent booster vax 09/16/22 Recorded SARS-CoV-2 (COVID-19) mRNA BNT-162b2 vac 12 08/27/21 Recorded SARS-CoV-2 (COVID-19) mRNA BNT-162b2 vac 01/18/21 Given SARS-CoV-2 (COVID-19) mRNA BNT-162b2 vac 12/28/20 Given tetanus/diphtheria/pertussis, acel(Tdap) 09/06/19 Given pneumococcal 13-valent vaccine 03/29/15 Given FluLaval (oldterm) 13 08/01/11 Given FluLaval (oldterm) 14 08/21/10 Given tetanus-diphtheria toxoids (Td) 15 11/30/09 Given tetanus-diphtheria toxoids (Td) 11/16/99 Given Influenza Inactive (IM) (oldterm) 09/14/08 Given Pneumococcal Vaccine (oldterm) 11/16/04 Given [facility]Result Comment[facility] 2Result Comment: local [facility] Note[facility] [place] 4Admin Note: given by simone doc by jose 5Result Comment: [facility] 6Result Comment[facility] 7Admin Note: done at [facility] 8Admin Note: [facility] 9Admin Note: [facility] 10Admin Note: VIS GIVEN 11Admin Note: GIVEN IN [facility]IN[facility] 12Result Comment: [facility] Bo[facility]3 vaccine 13Admin Note: [facility] 14Admin Note: [facility] VIS [id number] given 15Admin Note: historical data Medications Accu-Chek Meter Guide Me Accu-Chek Meter Guide Me, See Instructions, # 1 each, Refills 0, Tot. Refills 0, Maintenance, Dependent on insulin (Z79.4) SLIDING SCALE DM type 2 (E11.9) Use to check blood sugars 3 times a day after breakfast, lunch and dinner., 06/14/24 11:31:00 AM EDT, Supply, 165, cm, 11/25/23 9:58:00 EST, Height Start Date: 06/14/24 Status: Ordered Quantity: 1.0 Unit: each Repeat number: 1 Accu-Chek Softclix Lancing Device and Lancets Accu-Chek Softclix Lancing Device and Lancets, See Instructions, # 100 each, Refills 11, Tot. Refills 11, Maintenance, Dependent on insulin (Z79.4) SLIDING SCALE DM type 2 (E11.9) Use to check blood sugars 3 times a day after breakfast, lunch and dinner., 06/14/24 11:31:00 AM EDT, Supply, 165, cm, 11/25/23 9:58:00 EST, Height Start Date: 06/14/24 Status: Ordered Quantity: 100.0 Unit: each Repeat number: 12 Accu-Chek Test Strips Guide Accu-Chek Test Strips Guide, See Instructions, # 100 each, Refills 11, Tot. Refills 11, Maintenance, Dependent on insulin (Z79.4) SLIDING SCALE DM type 2 (E11.9) Use to check blood sugars 3 times a day after breakfast, lunch and dinner., 06/14/24 11:31:00 AM EDT, Supply, 165, cm, 11/25/23 9:58:00 EST, Height Start Date: 06/14/24 Status: Ordered Quantity: 100.0 Unit: each Repeat number: 12 amoxicillin 500 mg oral capsule See Instructions, 4 capsule By Mouth One Hour Prior to Dental Procedure dentiist prescribes, # 4 capsule, 5 Refills, Maintenance, 09/14/24 3:55:00 PM EDT, Capsule, [id number], 165, cm, 06/15/24 13:43:00 EDT, Height Start Date: 09/14/24 Status: Ordered Quantity: 4.0 Unit: capsule Repeat number: 6 Aspirin Enteric Coated 81 mg oral delayed release tablet See Instructions, # 90 tablet, Refills 3 Tot. Refills 3, TAKE 1 TABLET BY MOUTH EVERY DAY, [id number] Start Date: 06/27/19 Status: Ordered Quantity: 90.0 Unit: tablet Repeat number: 4 BREAST PROSTHETIC BREAST PROSTHETIC, See Instructions, # 1 each, Refills 0, Tot. Refills 0, Maintenance, USE DIRECTED DX BREAST CANCER C50.919 FAX [phone], 12/17/16 10:11:47 AM EST, Compound Start Date: 12/17/16 Status: Ordered Quantity: 1.0 Unit: each Repeat number: 1 Diabetic Shoes Diabetic Shoes, See Instructions, # 2 each, Refills 0, Tot. Refills 0, Maintenance, Dx: Diabetic type 2 with Neuropathy WT: 166lbs HT: 5'5 , 10/21/22 1:46:00 PM EST, Supply Start Date: 10/21/22 Status: Ordered Quantity: 2.0 Unit: each Repeat number: 1 Hearing test Hearing test, See Instructions, # 1 each, Refills 0, Tot. Refills 0, Maintenance, Please evaluate and treat patient for hearing loss., 05/02/14 10:11:59 AM EDT, Compound Start Date: 05/02/14 Status: Ordered Quantity: 1.0 Unit: each Repeat number: 1 Imodium A-D 2 mg oral tablet 2 mg, 1, tablet, By Mouth, Every 4 hours, PRN, # 60 tablet, Refills 0, Maintenance, for loose stool, 06/15/24 2:24:00 PM EDT, Partial fill upon patient request if the prescription is for a schedule IIopioid drug. Start Date: 06/15/24 Status: Ordered Quantity: 60.0 Unit: tablet Repeat number: 1 Lantus Solostar Pen 100 units/mL subcutaneous solution See Instructions, INJECT 24 UNITS SUBCUTANEOUSLY DAILY. ROTATE INJECTION SITES, # 30 Unknown, 1 Refills, Maintenance, 10/10/24 4:10:00 PM EST, [id number], 165, cm, 06/15/24 13:43:00 EDT, Height Start Date: 10/10/24 Status: Ordered Quantity: 30.0 Unit: Unknown Repeat number: 1 levothyroxine 0.112 mg oral tablet 1 tablet = 112 mcg, By Mouth, Daily, # 90 tablet, 3 Refills, Maintenance, 12/07/23 1:36:00 PM EST, Tablet, [facility], Partial fill upon patient request if the prescription is for a schedule II opioid drug., 165, cm, 11/25/23 9:58:00 EST, Height Start Date: 12/07/23 Status: Ordered Quantity: 90.0 Unit: tablet Repeat number: 4 MASTECTOMY BRA MASTECTOMY BRA, See Instructions, # 3 each, Refills 1, Tot. Refills 1, Maintenance, USE DIRECTEDDX BREAST CA C50.919 FAX [phone], 12/17/16 10:13:30 AM EST, Compound Start Date: 12/17/16 Status: Ordered Quantity: 3.0 Unit: each Repeat number: 2 Metamucil 3.4 gm/5.2 gm oral powder for reconstitution = 1.7 Gm, By Mouth, Daily, PRN as needed for constipation, # 283 Gm, 0 Refills, Maintenance, 06/15/24 2:23:00 PM EDT, REC Powder, Partial fill upon patient request if the prescription is for a schedule II opioid drug. Start Date: 06/15/24 Status: Ordered Quantity: 283.0 Unit: g Repeat number: 1 Metoprolol Succinate ER 25 mg oral tablet, extended release See Instructions, TAKE 1 TABLET EVERY DAY, # 90 tablet, 1 Refills, Maintenance, 06/11/24 6:56:00 AM EDT, [facility], 165, cm, 11/25/23 9:58:00 EST, Height Start Date: 06/11/24 Status: Ordered Quantity: 90.0 Unit: tablet Repeat number: 1 [facility] MASTECTOMY BRA, See Instructions, # 3 each, Refills 0, Tot. Refills 0, Maintenance, USE DIRECTEDDX BREAST CANCER, 09/17/16 3:02:49 PM EDT, Compound Start Date: 09/17/16 Status: Ordered Quantity: 3.0 Unit: each Repeat number: 1 NovoLOG FlexPen 100 units/mL injectable solution See Instructions, INJECT SUBCUTANEOUSLY 3 TIEMS A DAY WITH MEALS PER SLIDING SCALE: IF BLOOD SUGAR 70-99: 9 UNITS, 100-129:10 UNITS, 130-159:11 UNITS, 160- 189:12 UNITS, 190-219:13 UNITS, 220-249:14 UNITS, 250-279:15 UNITS, 280-309: 16 UNITS, 310-350: 17 UNITS & CALL PCP OFFICE, # 45 Unknown, 5 Refills, Maintenance, 09/19/24 8:31:00 AM EST, [id number], 165, cm, 06/15/24 13:43:00 EDT, Height Start Date: 09/19/24 Status: Ordered Quantity: 45.0 Unit: Unknown Repeat number: 1 Pen [place], 31 G x 5 mm BD Ultra Fine III See Instructions, # 360 each, Refills 3, Tot. 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, 07/11/19 9:18:36 AM EDT, 90 day supply, Compound Start Date: 07/11/19 Status: Ordered Quantity: 360.0 Unit: each Repeat number: 4 pravastatin 80 mg oral tablet 1 tablet, By Mouth, Daily at bedtime, # 90 tablet, 3 Refills, Maintenance, 04/15/24 8:26:00 AM EDT, [facility], 165, cm, 11/25/23 9:58:00 EST, Height Start Date: 04/15/24 Status: Ordered Quantity: 90.0 Unit: tablet Repeat number: 1 Shoe Inserts Shoe Inserts, See Instructions, # 6 each, Refills 0, Tot. Refills 0, Maintenance, Dx: Diabetic type2 with Neuropathy WT: 166lbs HT: 5'5 , 08/19/22 11:38:00 AM EDT, Supply Start Date: 08/19/22 Status: Ordered Quantity: 6.0 Unit: each Repeat number: 1 Vitamin B-12 1000 mcg oral tablet 1, tablet, By Mouth, Daily, # 90 tablet, Refills 10, Maintenance, 08/25/23 12:00:00 PM EDT, Route to Pharmacy Electronically, [facility], 165, cm, 05/20/23 15:01:00 EDT, Height Start Date: 08/25/23 Status: Ordered Quantity: 90.0 Unit: tablet Repeat number: 1 Vitamin D3 2000 intl units oral capsule 1 capsule = 50 mcg, By Mouth, Daily, # 60 capsule, 0 Refills, Maintenance, 11/25/23 10:26:00 AM EST,Capsule, Partial fill upon patient request if the prescription is for a schedule II opioid drug. Start Date: 11/25/23 Status: Ordered Quantity: 60.0 Unit: capsule Repeat number: 1 Zestoretic 12.5 mg-10 mg oral tablet 1 tablet, By Mouth, Daily, # 90 tablet, 0 Refills, Maintenance, 09/22/24 10:42:00 AM EST, Tablet, [facility], Partial fill upon patient request if the prescription is for a schedule II opioid drug., 1 tablet By Mouth Daily, 165, cm, 06/15/24 13:43:00 EDT, Height Start Date: 09/22/24 Status: Ordered Quantity: 90.0 Unit: tablet Repeat number: 1 Problem List Condition Confirmation Course Effective Dates Status Health Status Informant Chronic kidney disease (CKD), stage I Confirmed Active Chronic osteoarthritis Confirmed Active Colonoscopy 1 Confirmed Active Coronary artery disease Confirmed Active Current use of insulin Confirmed Active Hearing loss Confirmed Active History of breast cancer Confirmed Active History of myocardial infarction 2 Confirmed Active Hx of subdural hematoma Confirmed Active HTN (hypertension) Confirmed Active Hypercholesterolemia Confirmed Active Hypothyroid Confirmed Active Irritable bowel syndrome Confirmed Active Left bundle branch block Confirmed Active Meniere's disease Confirmed Active Neuropathy in diabetes Confirmed Active Anemia, 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 Proteinuria Confirmed Active Recurrent UTI (urinary tract infection) Confirmed Active Status post THR (total hip replacement) Confirmed Active 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, controlled, with neuropathy Confirmed Active Vitamin D Deficiency Confirmed Active 1colo 200o nl, declines repeat 2H 2015 Social History Social History Type Response Smoking Status Never smoker; Other: Quit smoking age 25; entered on: 06/16/16 Sex Sex Representation Female (finding) Goals Pt is going to consider trying the Anna 2 syste m Start Date:06/15/24 End Date: Status:Met Progression:Met Patient Care team information Care Team Personnel Name: Janes Foster MD Position: [facility] Physician - Primary Care Member Role: PCP Address: [address] [place] [address]- Telecom: Name: Zamzam Alejandro RN Position: [facility] RN Member Role: Primary Care Nurse Name: Sheeba (Landon) Stephanie Position: [facility] middle school professional Member Role: Customer Sales Distributor Name: Juan Manuel Hernandez Position: [facility] Outreach Member Role: [employer] Consulting Physician Name: Ena Posey RN Position: [facility] RN Member Role: Primary Care Nurse Care Team Related Persons Name: YUNIOR JOHNSON Name: RAFAEL JOHNSON Name: RE, FUSED Insurance Providers Guarantor name: ARGENIS JOHNSON Health Plan Information #: 1 Payer: MEDICARE PART B OUTPT Member Number: NA Policy Number: NA Group Number: NA Health Plan Information #: 2 Payer: [facility] Member Number: NA Policy Number: NA Group Number: NA
--- OUTSIDE RECORDS SUMMARY | 2024-10-31 19:06 | XMS_ITS | Continuity of Care Document ---
Author Organization [facility] Nik lt Address [address] [place] [address]- Care Team Providers Care Pharmacy Services Director Name Role Phone Janes Foster MD Primary Care Physician Encounter [facility] Date(s): 09/22/24 - 10/22/24 [facility] Adult [address] [place] [address]- Encounter Type: Triage Allergies, Adverse Reactions, Alerts [...] Vaccine (oldterm) 4 08/03/09 Given SARS-CoV-2 mRNA (lensacl-rvhr-kclss) vax 5 07/31/24 Recorded SARS-CoV-2 mRNA (rlyfqiq-qpiq-txnpz) vax 04/03/22 Recorded influenza virus vaccine, inactivated [...] vaccine, inactivated 11 09/09/06 G iven SARS-CoV-2(COVID-19)mRNA-LNP vac(kyv453) 07/30/24 Recorded RSV vaccine preF3, recombinant 12/19/23 Recorded zoster vaccine, inactivated 07/25/23 Recorded zoster vaccine, inactivated 05/23/23 Recorded pneumococcal 20-valent conjugate vaccine 05/22/23 Given GBQM-[id number]-9yJRS 12y+ bivalent booster vax 09/16/22 Recorded SARS-CoV-2 [...] Comment: local pharmacy [facility] [place] 4Admin Note: given by simone doc by jose 5Result Comment: [facility] 7Admin Note: done at [facility] 8Admin Note: [facility] 9Admin Note: [facility] 10Admin Note: VIS GIVEN 11Admin Note: GIVEN IN CLINIC SHPA 12Result Comment: [facility] Booster #3 vaccine 13Admin Note: 3225 films 14Admin Note: 3225 films VIS [id number] given 15Admin Note: historical data Medications Accu-Chek [...] USE DIRECTED DX BREAST CANCER C50.919 FAX [phone], 12/17/16 10:11:47 AM EST, Compound Start Date: [...] 1 Refills, Maintenance, 10/10/24 4:10:00 PM EST, [facility], 165, cm, 06/15/24 13:43:00 EDT, Height Start Date: 10/10/24 Status: Ordered Quantity: 30.0 Unit: Unknown Repeat number: 1 levothyroxine 0.112 mg oral tablet 1 tablet = 112 mcg, By Mouth, Daily, # 90 tablet, 3 Refills, Maintenance, 12/07/23 1:36:00 PM EST, Tablet, [facility], Partial fill upon patient request if the prescription is for a schedule II opioid drug., 165, cm, 11/25/23 9:58:00 EST, Height Start Date: 12/07/23 Status: Ordered Quantity: 90.0 Unit: tablet Repeat number: 4 MASTECTOMY BRA MASTECTOMY BRA, See Instructions, # 3 each, Refills 1, Tot. Refills 1, Maintenance, USE DIRECTEDDX BREAST CA C50.919 FAX [phone], 12/17/16 10:13:30 AM EST, Compound Start Date: [...] 1 Refills, Maintenance, 06/11/24 6:56:00 AM EDT, [facility], 165, cm, 11/25/23 9:58:00 EST, Height Start Date: 06/11/24 Status: Ordered Quantity: 90.0 Unit: tablet Repeat number: 1 [facility] Durable Medical Equipment MASTECTOMY BRA, See Instructions, [...] 5 Refills, Maintenance, 09/19/24 8:31:00 AM EST, [facility]88, 165, cm, 06/15/24 13:43:00 EDT, Height Start Date: 09/19/24 Status: Ordered Quantity: 45.0 Unit: Unknown Repeat number: 1 Pen [place], 31 G x 5 mm BD Ultra [...] 3 Refills, Maintenance, 04/15/24 8:26:00 AM EDT, [facility], 165, cm, 11/25/23 9:58:00 [...] 12:00:00 PM EDT, Route to Pharmacy Electronically, [facility], 165, cm, 05/20/23 15:01:00 [...] Refills, Maintenance, 09/22/24 10:42:00 AM EST, Tablet, [facility] Mail [facility], Partial fill upon patient [...] Team Personnel Name: Janes Foster MD Position: [facility] Physician - Primary Care Member Role: PCP Address: [address] [place] [address]- Telecom: Name: Zamzam Alejandro RN Position: [facility] RN Member Role: Primary Care Nurse Name: Sheeba (Landon) Stephanie Position: [facility] sound tester Member Role: Apparel Cutter Name: Juan Manuel Hernandez Position: [facility] Outreach Member Role: Lifetime Consulting Physician Name: Ena Posey RN Position: [facility] RN Member Role: Primary Care Nurse Care Team Related Persons Name: YUNIOR JOHNSON Name: RAFAEL JOHNSON Name: RE, FUSED Insurance Providers Guarantor name: ARGENIS JOHNSON Health Plan Information #: 1 Payer: MEDICARE PART B OUTPT Member Number: NA Policy Number: NA Group Number: NA Health Plan Information #: 2 Payer: [facility] Member Number: NA Policy Number: NA Group Number: NA
--- OUTSIDE RECORDS SUMMARY | 2024-10-31 19:06 | XMS_ITS | Continuity of Care Document ---
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 Name Role Phone Janes Foster MD Primary Care Physician Encounter [facility] Date(s): 09/14/24 - 10/14/24 [facility] Adult [address] [place] [address]- Encounter Type: Triage Allergies, Adverse Reactions, Alerts [...] Vaccine (oldterm) 4 08/03/09 Given SARS-CoV-2 mRNA (vfspmef-rhlv-dgjfz) vax 5 07/31/24 Recorded SARS-CoV-2 mRNA (wcdyxom-zoha-hznty) vax 04/03/22 Recorded influenza virus vaccine, inactivated [...] vaccine, inactivated 11 09/09/06 G iven SARS-CoV-2(COVID-19)mRNA-LNP vac(bzw201) 07/30/24 Recorded RSV vaccine preF3, recombinant 12/19/23 Recorded zoster vaccine, inactivated 07/25/23 Recorded zoster vaccine, inactivated 05/23/23 Recorded pneumococcal 20-valent conjugate vaccine 05/22/23 Given [id number]-[id number] 12y+ bivalent booster vax 09/16/22 Recorded SARS-CoV-2 [...] Comment: local pharmacy [facility] [place] 4Admin Note: given by simone doc by jose 5Result Comment: [facility] 6[facility] 7Admin Note: done at [facility] 8Admin Note: [facility] 9Admin Note: [facility] 10Admin Note: VIS GIVEN 11Admin Note: GIVEN IN CLINIC SHPR 12Result Comment: [facility] Booster [facility]3 vaccine 13Admin Note: [employer] 14Admin Note: [employer] VIS [id number] given 15Admin Note: historical data Medications Accu-Chek [...] USE DIRECTED DX BREAST CANCER C50.919 FAX [phone], 12/17/16 10:11:47 AM EST, Compound Start Date: [...] 1 Refills, Maintenance, 10/10/24 4:10:00 PM EST, [facility] 48977, 165, cm, 06/15/24 13:43:00 EDT, Height Start Date: 10/10/24 Status: Ordered Quantity: 30.0 Unit: Unknown Repeat number: 1 levothyroxine 0.112 mg oral tablet 1 tablet = 112 mcg, By Mouth, Daily, # 90 tablet, 3 Refills, Maintenance, 12/07/23 1:36:00 PM EST, Tablet, [facility] Mail [facility], Partial fill upon patient request if the prescription is for a schedule II opioid drug., 165, cm, 11/25/23 9:58:00 EST, Height Start Date: 12/07/23 Status: Ordered Quantity: 90.0 Unit: tablet Repeat number: 4 MASTECTOMY BRA MASTECTOMY BRA, See Instructions, # 3 each, Refills 1, Tot. Refills 1, Maintenance, USE DIRECTEDDX BREAST CA C50.919 FAX [phone], 12/17/16 10:13:30 AM EST, Compound Start Date: [...] 1 Refills, Maintenance, 06/11/24 6:56:00 AM EDT, [facility], 165, cm, 11/25/23 9:58:00 EST, Height Start Date: 06/11/24 Status: Ordered Quantity: 90.0 Unit: tablet [facility]: [facility] MASTECTOMY BRA, See Instructions, [...] 5 Refills, Maintenance, 09/19/24 8:31:00 AM EST, [facility] 20213, 165, cm, 06/15/24 13:43:00 EDT, Height Start Date: 09/19/24 Status: Ordered Quantity: 45.0 Unit: Unknown Repeat number: 1 Pen [place], 31 G x 5 mm BD Ultra [...] 3 Refills, Maintenance, 04/15/24 8:26:00 AM EDT, [facility], 165, cm, 11/25/23 9:58:00 [...] 12:00:00 PM EDT, Route to Pharmacy Electronically, [facility], 165, cm, 05/20/23 15:01:00 [...] Refills, Maintenance, 09/22/24 10:42:00 AM EST, Tablet, [facility] Mail [facility], Partial fill upon patient [...] Team Personnel Name: Janes Foster MD Position: [facility] Physician - Primary Care Member Role: PCP Address: [address] [place] [address]- Telecom: Name: Zamzam Alejandro RN Position: [facility] RN Member Role: Primary Care Nurse Name: Sheeba (Landon) Stephanie Position: [facility] director of state Member Role: Head Bucker Name: Juan Manuel Hernandez Position: [facility] Outreach Member Role: Lifetime Consulting Physician Name: Ena Posey RN Position: [facility] RN Member Role: Primary Care Nurse Care Team Related Persons Name: YUNIOR JOHNSON Name: RAFAEL JOHNSON Name: RE, FUSED Insurance Providers Guarantor name: ARGENIS JOHNSON Health Plan Information #: 1 Payer: MEDICARE PART B OUTPT Member Number: NA Policy Number: NA Group Number: NA Health Plan Information #: 2 Payer: [facility] Member Number: NA Policy Number: NA Group Number: NA
--- OUTSIDE RECORDS SUMMARY | 2024-10-31 19:06 | XMS_ITS | Continuity of Care Document ---
Author Organization [facility] Nik lt Address [address] [place] [address]- Care Team Providers Care Online Services Manager Name Role Phone Janes Foster MD Primary Care Physician Encounter [facility] Date(s): 09/25/24 - 10/25/24 [facility] Adult [address] [place] [address]- Encounter Type: Triage Allergies, Adverse Reactions, Alerts [...] Vaccine (oldterm) 4 08/03/09 Given SARS-CoV-2 mRNA (preihjo-taar-tezis) vax 5 07/31/24 Recorded SARS-CoV-2 mRNA (eovqvge-kark-bgmty) vax 04/03/22 Recorded influenza virus vaccine, inactivated [...] vaccine, inactivated 11 09/09/06 G iven SARS-CoV-2(COVID-19)mRNA-LNP vac(iqw003) 07/30/24 Recorded RSV vaccine preF3, recombinant 12/19/23 Recorded zoster vaccine, inactivated 07/25/23 Recorded zoster vaccine, inactivated 05/23/23 Recorded pneumococcal 20-valent conjugate vaccine 05/22/23 Given WIQE-VhS-5lSYF 12y+ bivalent booster vax 09/16/22 Recorded SARS-CoV-2 [...] Comment: local pharmacy [facility] Note[facility] [place] 4Admin Note: given by simone doc by jose 5Result Comment: [facility] 6[facility] 7Admin Note: done at [facility] 8Admin Note: [facility] 9Admin Note: [facility] 10Admin Note: VIS GIVEN 11Admin Note: GIVEN IN CLINIC SHIN 12Result Comment: [facility] Booster [facility]3 vaccine 13Admin Note: Niko Niko 14Admin Note: Niko Niko VIS [id number] given 15Admin Note: historical data Medications Accu-Chek [...] USE DIRECTED DX BREAST CANCER C50.919 FAX [phone], 12/17/16 10:11:47 AM EST, Compound Start Date: [...] 1 Refills, Maintenance, 10/10/24 4:10:00 PM EST, [facility] 94177, 165, cm, 06/15/24 13:43:00 EDT, Height Start Date: 10/10/24 Status: Ordered Quantity: 30.0 Unit: Unknown Repeat number: 1 levothyroxine 0.112 mg oral tablet 1 tablet = 112 mcg, By Mouth, Daily, # 90 tablet, 3 Refills, Maintenance, 12/07/23 1:36:00 PM EST, Tablet, [facility] Mail [facility], Partial fill upon patient request if the prescription is for a schedule II opioid drug., 165, cm, 11/25/23 9:58:00 EST, Height Start Date: 12/07/23 Status: Ordered Quantity: 90.0 Unit: tablet Repeat number: 4 MASTECTOMY BRA MASTECTOMY BRA, See Instructions, # 3 each, Refills 1, Tot. Refills 1, Maintenance, USE DIRECTEDDX BREAST CA C50.919 FAX [phone], 12/17/16 10:13:30 AM EST, Compound Start Date: [...] 1 Refills, Maintenance, 06/11/24 6:56:00 AM EDT, [facility], 165, cm, 11/25/23 9:58:00 EST, Height Start Date: 06/11/24 Status: Ordered Quantity: 90.0 Unit: tablet Repeat number: [facility] MASTECTOMY BRA, [...] 5 Refills, Maintenance, 09/19/24 8:31:00 AM EST, [facility] 88403, 165, cm, 06/15/24 13:43:00 EDT, Height Start Date: 09/19/24 Status: Ordered Quantity: 45.0 Unit: Unknown Repeat number: 1 Pen [place], 31 G x 5 mm BD Ultra [...] 3 Refills, Maintenance, 04/15/24 8:26:00 AM EDT, [facility], 165, cm, 11/25/23 [...] 12:00:00 PM EDT, Route to Pharmacy Electronically, [facility], 165, cm, 05/20/23 [...] Refills, Maintenance, 09/22/24 10:42:00 AM EST, Tablet, [facility] Mail [facility], Partial fill upon [...] Team Personnel Name: Janes Foster MD Position: [facility] Physician - Primary Care Member Role: PCP Address: [address] [place] [address]- Telecom: Name: Zamzam Alejandro RN Position: [facility] RN Member Role: Primary Care Nurse Name: Sheeba (Landon) Stephanie Position: [facility] hat mender Member Role: Health Insurance Assessor Name: Juan Manuel Hernandez Position: [facility] Outreach Member Role: Lifetime Consulting Physician Name: Ena Posey RN Position: [facility] RN Member Role: Primary Care Nurse Care Team Related Persons Name: YUNIOR JOHNSON Name: RAFAEL JOHNSON Name: RE, FUSED Insurance Providers Guarantor name: ARGENIS JOHNSON Health Plan Information #: 1 Payer: MEDICARE PART B OUTPT Member Number: NA Policy Number: NA Group Number: NA Health Plan Information #: 2 Payer: [facility] Member Number: NA Policy Number: NA Group Number: NA
--- OUTSIDE RECORDS SUMMARY | 2024-10-31 19:06 | XMS_ITS | Continuity of Care Document ---
Author Organization [facility] Nik lt Address [address] [place] [address]- Care Team Providers Care Mud Analysis Supervisor Name Role Phone Janes Foster MD Primary Care Physician [phone] [place] [facility] Date(s): 09/22/24 - 10/22/24 [facility] Adult [address] [place] [address]- Encounter Type: Triage Allergies, Adverse Reactions, Alerts [...] Vaccine (oldterm) 4 08/03/09 Given SARS-CoV-2 mRNA (jthphcm-qpjv-lcffp) vax 5 07/31/24 Recorded SARS-CoV-2 mRNA (qbvyidn-lxpz-ezpjb) vax 04/03/22 Recorded influenza virus vaccine, inactivated [...] vaccine, inactivated 11 09/09/06 G iven SARS-CoV-2(COVID-19)mRNA-LNP vac(zxf561) 07/30/24 Recorded RSV vaccine preF3, recombinant 12/19/23 Recorded zoster vaccine, inactivated 07/25/23 Recorded zoster vaccine, inactivated 05/23/23 Recorded pneumococcal 20-valent conjugate vaccine 05/22/23 Given CMCG-GaS-3sFOL 12y+ bivalent booster vax 09/16/22 Recorded SARS-CoV-2 [...] Comment: local pharmacy 3Admin Note[facility] [place] 4Admin Note: given by simone doc by jose 5Result Comment: [facility] 6[facility] Comment[facility] 7Admin Note: done at [facility] 8Admin Note: [facility] 9Admin Note: [facility] CLINIC 10Admin Note: VIS GIVEN 11Admin Note: GIVEN IN CLINIC SHTX 12Result Comment: [facility] Booster #3 vaccine 13Admin Note: [employer] 14Admin Note: [employer] VIS [phone] given 15Admin Note: historical data Medications Accu-Chek [...] USE DIRECTED DX BREAST CANCER C50.919 FAX [phone], 12/17/16 10:11:47 AM EST, Compound Start Date: [...] 1 Refills, Maintenance, 10/10/24 4:10:00 PM EST, [facility] 25093, 165, cm, 06/15/24 13:43:00 EDT, Height Start Date: 10/10/24 Status: Ordered Quantity: 30.0 Unit: Unknown Repeat number: 1 levothyroxine 0.112 mg oral tablet 1 tablet = 112 mcg, By Mouth, Daily, # 90 tablet, 3 Refills, Maintenance, 12/07/23 1:36:00 PM EST, Tablet, [facility] Mail [facility], Partial fill upon patient request if the prescription is for a schedule II opioid drug., 165, cm, 11/25/23 9:58:00 EST, Height Start Date: 12/07/23 Status: Ordered Quantity: 90.0 Unit: tablet Repeat number: 4 MASTECTOMY BRA MASTECTOMY BRA, See Instructions, # 3 each, Refills 1, Tot. Refills 1, Maintenance, USE DIRECTEDDX BREAST CA C50.919 FAX [phone], 12/17/16 10:13:30 AM EST, Compound Start Date: [...] 1 Refills, Maintenance, 06/11/24 6:56:00 AM EDT, [facility], 165, cm, 11/25/23 9:58:00 EST, Height Start Date: 06/11/24 Status: Ordered Quantity: 90.0 Unit: tablet Repeat number: 1 [facility] MASTECTOMY BRA, See Instructions, [...] 5 Refills, Maintenance, 09/19/24 8:31:00 AM EST, [facility] 96103, 165, cm, 06/15/24 13:43:00 EDT, Height Start Date: 09/19/24 Status: Ordered Quantity: 45.0 Unit: Unknown Repeat number: 1 [facility] [place], 31 G x 5 mm BD Ultra [...] 3 Refills, Maintenance, 04/15/24 8:26:00 AM EDT, [facility] Mail [facility], 165, cm, 11/25/23 9:58:00 [...] 12:00:00 PM EDT, Route to Pharmacy Electronically, [facility], 165, cm, 05/20/23 15:01:00 [...] Refills, Maintenance, 09/22/24 10:42:00 AM EST, Tablet, [facility] Mail Delivery, Partial fill upon patient [...] Team Personnel Name: Janes Foster MD Position: [facility] Physician - Primary Care Member Role: PCP Address: [address] [place] [address]- Telecom: Name: Zamzam Alejandro RN Position: [facility] RN Member Role: Primary Care Nurse Name: Sheeba (Landon) Stephanie Position: [facility] fagoting machine operator Member Role: Wildlife And Game Protector Name: Juan Manuel Hernandez Position: [facility] Outreach Member Role: Lifetime Consulting Physician Name: Ena Posey RN Position: [facility] RN Member Role: Primary Care Nurse Care Team Related Persons Name: YUNIOR JOHNSON Name: RAFAEL JOHNSON Name: RE, FUSED Insurance Providers Guarantor name: ARGENIS JOHNSON Health Plan Information #: 1 Payer: MEDICARE PART B OUTPT Member Number: NA Policy Number: NA Group Number: NA Health Plan Information #: 2 Payer: [facility] Member Number: NA Policy Number: NA Group Number: NA
--- OUTSIDE RECORDS SUMMARY | 2024-10-31 19:06 | XMS_ITS | Continuity of Care Document ---
Author Organization [facility] Nik lt Address [address] [place] [address]- Care Team Providers Care Shipping And Receiving Associate Name Role Phone Janes Foster MD Primary Care Physician [phone] Encounter [facility] Date(s): 09/17/24 - 10/17/24 [facility] Adult [address] [place] [address]- Encounter Type: Triage Allergies, Adverse Reactions, Alerts [...] Vaccine (oldterm) 4 08/03/09 Given SARS-CoV-2 mRNA (icwrndt-npnr-yhyne) vax 5 07/31/24 Recorded SARS-CoV-2 mRNA (rgzkhyv-uulw-tkryz) vax 04/03/22 Recorded influenza virus vaccine, inactivated [...] vaccine, inactivated 11 09/09/06 G iven SARS-CoV-2(COVID-19)mRNA-LNP vac(iqp420) 07/30/24 Recorded RSV vaccine preF3, recombinant 12/19/23 Recorded zoster vaccine, inactivated 07/25/23 Recorded zoster vaccine, inactivated 05/23/23 Recorded pneumococcal 20-valent conjugate vaccine 05/22/23 Given OKVV-XrJ-1lIIS 12y+ bivalent booster vax 09/16/22 Recorded SARS-CoV-2 [...] Comment: local pharmacy 3Admin Note[facility] [place] 4Admin Note: given by smione doc by jose 5Result Comment: [facility] 6[facility] Comment[facility] 7Admin Note: done at [facility] 8Admin Note: [facility] 9Admin Note: [facility] CLINIC 10Admin Note: VIS GIVEN 11Admin Note: GIVEN IN CLINIC SHHI 12Result Comment: [facility] Booster #3 vaccine 13Admin Note: [employer] 14Admin Note: [employer] VIS [id number] given 15Admin Note: historical data Medications Accu-Chek [...] USE DIRECTED DX BREAST CANCER C50.919 FAX [phone], 12/17/16 10:11:47 AM EST, Compound Start Date: [...] 1 Refills, Maintenance, 10/10/24 4:10:00 PM EST, [facility] 31979, 165, cm, 06/15/24 13:43:00 EDT, Height Start Date: 10/10/24 Status: Ordered Quantity: 30.0 Unit: Unknown Repeat number: 1 levothyroxine 0.112 mg oral tablet 1 tablet = 112 mcg, By Mouth, Daily, # 90 tablet, 3 Refills, Maintenance, 12/07/23 1:36:00 PM EST, Tablet, [facility] Mail [facility], Partial fill upon patient request if the prescription is for a schedule II opioid drug., 165, cm, 11/25/23 9:58:00 EST, Height Start Date: 12/07/23 Status: Ordered Quantity: 90.0 Unit: tablet Repeat number: 4 MASTECTOMY BRA MASTECTOMY BRA, See Instructions, # 3 each, Refills 1, Tot. Refills 1, Maintenance, USE DIRECTEDDX BREAST CA C50.919 FAX [phone], 12/17/16 10:13:30 AM EST, Compound Start Date: [...] 1 Refills, Maintenance, 06/11/24 6:56:00 AM EDT, [facility], 165, cm, 11/25/23 9:58:00 EST, Height Start Date: 06/11/24 Status: Ordered Quantity: 90.0 Unit: tablet Repeat number: 1 [facility] MASTECTOMY BRA, See Instructions, [...] 5 Refills, Maintenance, 09/19/24 8:31:00 AM EST, [facility] 86444, 165, cm, 06/15/24 13:43:00 EDT, Height Start Date: 09/19/24 Status: Ordered Quantity: 45.0 Unit: Unknown Repeat number: 1 Pen [place], 31 G x 5 mm BD Ultra [...] 3 Refills, Maintenance, 04/15/24 8:26:00 AM EDT, [facility], 165, cm, 11/25/23 [...] 12:00:00 PM EDT, Route to Pharmacy Electronically, [facility], 165, cm, 05/20/23 [...] Refills, Maintenance, 09/22/24 10:42:00 AM EST, Tablet, [facility] Mail [facility], Partial fill upon [...] Team Personnel Name: Janes Foster MD Position: [facility] Physician - Primary Care Member Role: PCP Address: [address] [place] [address]- Telecom: Name: Zamzam Alejandro RN Position: [facility] RN Member Role: Primary Care Nurse Name: Sheeba (Landon) Stephanie Position: [facility] manager creative Member Role: Analytics Specialist Name: Juan Manuel Hernandez Position: [facility] Outreach Member Role: Lifetime Consulting Physician Name: Ena Posey RN Position: [facility] RN Member Role: Primary Care Nurse Care Team Related Persons Name: YUNIOR JOHNSON Name: RAFAEL JOHNSON Name: RE, FUSED Insurance Providers Guarantor name: ARGENIS JOHNSON Health Plan Information #: 1 Payer: MEDICARE PART B OUTPT Member Number: NA Policy Number: NA Group Number: NA Health Plan Information #: 2 Payer: [facility] Member Number: NA Policy Number: NA Group Number: NA
--- OUTSIDE RECORDS SUMMARY | 2024-10-31 19:06 | XMS_ITS | Continuity of Care Document ---
Author Organization [facility] Nik lt Address [address] [place] [address]- Care Team Providers Care Axle Bearing Polisher Name Role Phone Janes Foster MD Primary Care Physician [place] [facility] [place](s): 09/09/24 - 10/09/24 [facility] Adult [address] [place] [address]- Encounter Type: Triage Allergies, Adverse Reactions, Alerts [...] Vaccine (oldterm) 4 08/03/09 Given SARS-CoV-2 mRNA (emzzfna-yugf-qtpsv) vax 5 07/31/24 Recorded SARS-CoV-2 mRNA (yjoudvu-nusn-pwxrf) vax 04/03/22 Recorded influenza virus vaccine, inactivated [...] vaccine, inactivated 11 09/09/06 G iven SARS-CoV-2(COVID-19)mRNA-LNP vac(kus882) 07/30/24 Recorded RSV vaccine preF3, recombinant 12/19/23 Recorded zoster vaccine, inactivated 07/25/23 Recorded zoster vaccine, inactivated 05/23/23 Recorded pneumococcal 20-valent conjugate vaccine 05/22/23 Given [id number] 12y+ bivalent booster vax 09/16/22 Recorded SARS-CoV-2 [...] Comment: [facility] [place] 4Admin Note: given by simone doc by jose 5Result Comment: [facility] Comment[facility] 7Admin Note: done at [facility] 8Admin Note: [facility] 9Admin Note: [facility] 10Admin Note: VIS GIVEN 11Admin Note: GIVEN IN CLINIC [facility] 12Result Comment[facility] Bo[facility] #3 vaccine 13Admin Note: [facility] 14Admin Note: [facility] VIS [id number] given 15Admin Note: historical data Medications Accu-Chek [...] USE DIRECTED DX BREAST CANCER C50.919 FAX [phone], 12/17/16 10:11:47 AM EST, Compound Start Date: [...] SITES, # 30 Unknown, 1 Refills, Maintenance, 06/26/24 6:44:00 PM EDT, [id number], 165, cm, 06/15/24 13:43:00 EDT, Height Start Date: 06/26/24 Status: Ordered Quantity: 30.0 Unit: Unknown Repeat number: 1 levothyroxine 0.112 mg oral tablet 1 tablet = 112 mcg, By Mouth, Daily, # 90 tablet, 3 Refills, Maintenance, 12/07/23 1:36:00 PM EST, Tablet, [facility] Mail Delivery, Partial fill upon patient request if the prescription is for a schedule II opioid drug., 165, cm, 11/25/23 9:58:00 EST, Height Start Date: 12/07/23 Status: Ordered Quantity: 90.0 Unit: tablet Repeat number: 4 MASTECTOMY BRA MASTECTOMY BRA, See Instructions, # 3 each, Refills 1, Tot. Refills 1, Maintenance, USE DIRECTEDDX BREAST CA C50.919 FAX [phone], 12/17/16 10:13:30 AM EST, Compound Start Date: [...] 1 Refills, Maintenance, 06/11/24 6:56:00 AM EDT, [facility] Mail Delivery, 165, cm, 11/25/23 9:58:00 EST, Height Start Date: 06/11/24 Status: Ordered Quantity: 90.0 Unit: tablet Repeat number: 1 Misc Durable Medical Equipment MASTECTOMY BRA, See Instructions, [...] 5 Refills, Maintenance, 09/19/24 8:31:00 AM EST, [id number], 165, cm, 06/15/24 13:43:00 EDT, Height Start Date: 09/19/24 Status: Ordered Quantity: 45.0 Unit: Unknown Repeat number: 1 Pen [place], 31 G x 5 mm BD Ultra [...] 3 Refills, Maintenance, 04/15/24 8:26:00 AM EDT, [facility] Mail [facility], 165, cm, 11/25/23 [...] 12:00:00 PM EDT, Route to Pharmacy Electronically, [facility], 165, cm, 05/20/23 [...] Refills, Maintenance, 09/22/24 10:42:00 AM EST, Tablet, [facility] Mail Delivery, Partial fill upon [...] Confirmed Active 1colo 200o nl, declines repeat [facility] 2015 Social History Social History Type Response Smoking Status Never smoker; Other: Quit smoking age 25; entered on: 06/16/16 Sex Sex Representation Female (finding) Goals Pt is going to consider trying the Anna 2 syste m Start Date:06/15/24 End Date: Status:Met Progression:Met Patient Care team information Care Team Personnel Name: Janes Foster MD Position: [facility] Physician - Primary Care Member Role: PCP Address: [address] [place] [address]- Telecom: Name: Zamzam Alejandro RN Position: [facility] RN Member Role: Primary Care Nurse Name: Sheeba ([place] Stephanie Position: [facility] architectural design professor Member Role: Drug Room Clerk Name: Juan Manuel Hernandez Position: [facility] Outreach Member Role: Lif[employer] Consulting Physician Name: Ena Posey RN Position: [facility] RN Member Role: Primary Care Nurse Care Team Related Persons Name: YUNIOR JOHNSON Name: RAFAEL JOHNSON Name: RE, ZOYA Insurance Providers Guarantor name: ARGENIS JOHNSON Health Plan Information #: 1 Payer: MEDICARE PART B OUTPT Member Number: NA Policy Number: NA Group Number: NA Health Plan Information #: 2 Payer: [facility] Member Number: NA Policy Number: NA Group Number: NA
--- OUTSIDE RECORDS SUMMARY | 2024-10-31 19:06 | XMS_ITS | Continuity of Care Document ---
Author Organization [facility] Nik lt Address [address] [place] [address]- Care Team Providers Care Quality Lab Technician Name Role Phone Janes Foster MD Primary Care Physician [place] [facility] [place](s[place] 09/17/24 - 10/17/24 [facility] Adult [address] [place] [address]- Encounter Type: Triage Allergies, Adverse Reactions, Alerts [...] Vaccine (oldterm) 4 08/03/09 Given SARS-CoV-2 mRNA (aephxgj-fcfb-ifjbl) vax 5 07/31/24 Recorded SARS-CoV-2 mRNA (bqcbfph-zmtz-kelil) vax 04/03/22 Recorded influenza virus vaccine, inactivated [...] vaccine, inactivated 11 09/09/06 G iven SARS-CoV-2(COVID-19)mRNA-LNP vac(yny286) 07/30/24 Recorded RSV vaccine preF3, recombinant 12/19/23 Recorded zoster vaccine, inactivated 07/25/23 Recorded zoster vaccine, inactivated 05/23/23 Recorded pneumococcal 20-valent conjugate vaccine 05/22/23 Given [id number] 12y+ bivalent booster vax 09/16/22 Recorded SARS-CoV-2 [...] Comment: local pharmacy [facility] [place] 4Admin Note: given by simone doc by jose 5Result Comment: [facility] 7Admin Note: done at [facility] 8Admin Note: [facility] 9Admin Note: FLU CLINIC 10Admin Note: VIS GIVEN 11Admin Note: GIVEN IN CLINIC [facility]IL 12Result Comment[facility] vaccine 13Admin Note: [facility] 14Admin Note: [facility] VIS [id number] given 15Admin Note: historical data Medications Accu-Chek [...] USE DIRECTED DX BREAST CANCER C50.919 FAX [phone], 12/17/16 10:11:47 AM EST, Compound Start Date: [...] 1 Refills, Maintenance, 10/10/24 4:10:00 PM EST, [facility], 165, cm, 06/15/24 13:43:00 EDT, Height Start Date: 10/10/24 Status: Ordered Quantity: 30.0 Unit: Unknown Repeat number: 1 levothyroxine 0.112 mg oral tablet 1 tablet = 112 mcg, By Mouth, Daily, # 90 tablet, 3 Refills, Maintenance, 12/07/23 1:36:00 PM EST, Tablet, [facility] Mail [facility], Partial fill upon patient request if the prescription is for a schedule II opioid drug., 165, cm, 11/25/23 9:58:00 EST, Height Start Date: 12/07/23 Status: Ordered Quantity: 90.0 Unit: tablet Repeat number: 4 MASTECTOMY BRA MASTECTOMY BRA, See Instructions, # 3 each, Refills 1, Tot. Refills 1, Maintenance, USE DIRECTEDDX BREAST CA C50.919 FAX [phone], 12/17/16 10:13:30 AM EST, Compound Start Date: [...] 1 Refills, Maintenance, 06/11/24 6:56:00 AM EDT, [facility], 165, cm, 11/25/23 9:58:00 EST, Height Start Date: 06/11/24 Status: Ordered Quantity: 90.0 Unit: tablet Repeat number: 1 [facility] D[facility] Medical Equipment MASTECTOMY BRA, See Instructions, [...] 5 Refills, Maintenance, 09/19/24 8:31:00 AM EST, [id number], 165, cm, 06/15/24 13:43:00 EDT, Height Start Date: 09/19/24 Status: Ordered Quantity: 45.0 Unit: Unknown Repeat number: 1 Pen [place], 31 G x 5 mm BD Ultra [...] 3 Refills, Maintenance, 04/15/24 8:26:00 AM EDT, [facility], 165, cm, 11/25/23 9:58:00 [...] 12:00:00 PM EDT, Route to Pharmacy Electronically, [facility], 165, cm, 05/20/23 15:01:00 [...] Refills, Maintenance, 09/22/24 10:42:00 AM EST, Tablet, [facility] Mail [facility], Partial fill upon patient [...] Team Personnel Name: Janes Foster MD Position: [facility] Physician - Primary Care Member Role: PCP Address: [address] [place] [address]- Telecom: Name: Zamzam Alejandro RN Position: [facility] RN Member Role: Primary Care Nurse Name: Sheeba ([place]) Stephanie Position: [facility] personal chef Member Role: Non Linear Editor Name: Juan Manuel Hernandez Position: [facility] Outreach Member Role: Lifetime Consulting Physician Name: Ena Posey RN Position: [facility] RN Member Role: Primary Care Nurse Care Team Related Persons Name: YUNIOR JOHNSON Name: RAFAEL JOHNSON Name: RE, FUSED Insurance Providers Guarantor name: ARGENIS JOHNSON Health Plan Information #: 1 Payer: MEDICARE PART B OUTPT Member Number: NA Policy Number: NA Group Number: NA Health Plan Information #: 2 Payer: [facility] Member Number: NA Policy Number: NA Group Number: NA
--- OUTSIDE RECORDS SUMMARY | 2024-10-31 19:07 | XMS_ITS ---
Author Organization [facility] Address [address] [facility] [place] [address] Care Team Providers Care Physician Non Invasive Cardiologist Name Role Phone Janes Foster MD Primary Care Provider Fernando Wall Unavailable [phone] Allergies Allergen (clinical drug ingredient) Drug/Non Drug Allergy documented on EMR Reaction Allergy Type Onset Date Status Seasonal IC Unknown Drug Allergy Activ e Adhesive Tape rash Drug Allergy Act marquise REASON FOR VISIT At Risk Footcare, Ingrown Nail Medications Medication SIG (Take, Route, Frequency, Duration) Notes Start Date End Date Status Lantus 24 units 1x aday Active hydroCHLOROthiazide 25 MG as directed Or ally Once a day Active Meclizine HCl Active Lisinopril 20 MG as directed Orally Once a day Active Lipitor Active Celecoxib Active Extra Depth Orthopedic Shoes (1 Pair) with Customized Heat Molded Multidensity Innersoles (3 Pair) as directed Dx: IDDM/Polyneuropathy (E10.42), Hammertoe Foot Deformity (M20.41,M20.42), Preulcerative Skin Lesion(s) (L85.1) 09/29/2023 Active Divalproex Sodium Ac tive clonazePAM Active NIFEdipine Not-Takin g Pravastatin Sodium 80 MG 1 tablet Orally Once a day Active Procardia Active NovoLOG FlexPen Acti ve Social History Tobacco Use: Social History Observation Description Date Details (start date - stop date) Former Smoker NA - NA Tobacco Use/Smoking Question Answer Notes Are you a: former smoker Additional Findings: Tobacco Non-User Current no n-smoker Tobacco use other than smoking: Question Answer Notes Are you an other tobacco user? No Vital Signs Height 5 ft 6 in in 07/15/2024 Weight 175 lbs 07/15/2024 BMI 28.24 kg/m2 07/15/2024 Blood pressure systolic 128 mm Hg 07/15/20 Blood pressure diastolic 68 mm Hg 024 Procedures Procedure Date Ordered Date Performed Result Body Sit e 56671-YWQMIJD NAIL, 6 OR MORE 07/15/2024 N/A 54293-Ikuwchvd Plate 07/15/2024 N/A 95061-JHGL SKIN LESIONS, OVER 4 07/15/2024 N/A Encounters Encounter Location Date Provider Diagnosis [facility] [address] [place] [address] 07/15/2024 Fernando Lim Type 1 diabetes mellitus with diabetic polyneuropathy E10.42 ; Tinea unguium B35.1 and Ingrown nail L60.0 Assessments Encounter Date Diagnosis (ICD Code) Assessment Notes Treatment Notes Treatment Clinical Notes Section Notes 07/15/2024 Type 1 diabetes mellitus with diabetic polyneuropathy (ICD-10 - E10.42) 07/15/2024 Tinea unguium (ICD-10 - B35.1) 07/15/2024 Ingrown nail (ICD-10 - L60.0) Plan Of Treatment Pending Test Test Name Order Date 46762-JJZMACA NAIL, 6 OR MORE 07/15/2024 46982-Kwzrsypr Plate 07/15/2024 35218-YVJE SKIN LESIONS, OVER 4 07/15/20 24 Next Appt Details Follow Up: prn, Reason: Procedure Notes * Category Sub-Category Detail Notes Nail Avulsion Procedure A fine sterile e levator was placed between the eponychium, nail fold, and nail plate to separate the structures. A sterile nail splitter, and/or sterile 316 blade, was then used to longitudinally section the nail along its entire length through the eponychium to the area under the nail fold. The offending portion of nail was from the nail bed with a rolling action and then removed with a hemostat. No underlying bone was identified. There was minimal bleeding as hemostasis was achieved through the temporary use of either a digital tourniquet or the aforementioned local with epinephrine. A bacitracin sterile dressing was applied. Local wound aftercare instructions were discussed and dispensed. The patient was informed of both conservative and future surgical procedures to prevent recurrence. Tylenol or Motrin was recommended for pain or discomfort (85850) , DIABETES: Pt was advised as to the risk of delayed or nonhealing due to diabetes. Pt is to call the office with any questions, concerns, or complications Anesthesia was deferred - NEURO MARGIE: patient has medically documented neuropathic condition affecting sensation Location Medial nail border , T5 Debride Nail 6-10 Nail debridement Performance o f this nail treatment by a nonprofessional would put this patients foot and overall health at risk. Therefore, nail debridement was performed extensively to reduce/remove overall nail length, girth, thickness, subungual debris, and necrotic tissue, by manual and/or electrical means through the use of a nail nipper and/or dremel-type precision lens grinder, to a more viable healthy nail plate or bed tissue 6-10. Silver nitrate used for any petechial bleeding as necessary. Definitive antifungal treatment options have been reviewed and discussed with the patient. The patient chooses, no pharmaceutical tx - 34145 Keratoma Treatment Parring or Cutting o f Benign Hyperkeratotic Lesion(s) 20299 ( >4 Lesions) - The Benign hyperkeratotic lesions, as described above were pared, and/or cut utilizing a sterile #15 blade, tissue nippers, and/or dremel Progress Notes * Lisa HOLLIDAY ADOB:[birth year] (88 yo F)Acc No.[id number]:07/15/2024 Progress Note Patient:?Lisa Holliday Provider:?Fernando Lim DPM :1935???Age:88 Y???Sex:Female D ate:07/15/2024 Address: [place] , [phone] Pcp:Janes Foster MD Subjective: * Chief Complaints: * ???At Risk FootcareIngrown N ail * HPI: ???At Risk footcare:?Pt States Last PCP Visit:?Date?05/30/2024 * ROS:?General/Constitutional:?Nausea?denies.?Vomiting?denies.?Hunger Thirst?denies.?Loss appetite?denies.?Chills?denies.?Fatigue?denies.?Fever?denies.?Night Sweats?denies.?Unexplained weight loss?denies.?Ophthalmologic:?Blurred vision?denies.?Red eye?denies.?HEENTM:?Dentures?denies.?Dizziness?denies.?Glasses/contacts?admits.?Retinopathy?de nies.?Blurred/double vision?denies.?TMJ?denies.?Discharge/drainage?denies.?Implants?denies.?Hard of hearing admits.?Difficulty chewing/swallowing/speaking?denies.?Nose bleeds?denies.?Sore mouth?denies.?Swollen glands?denies.?Respiratory:?On Oxygen?denies.?Pneumonia/pleurisy?denies.?Bronchitis?denies.?Emphysema?denies.?C oughing?denies.?Cough blood?denies.?Shortness of breath?denies.?Wheezing?denies.?Cardiovascular:?Pacemaker?denies.?MVP?denies.?WPW?denies.?CHF?denies.?Heart attack?denies.?Septal defect?denies.?Rapid beat?denies.?Chest pain ?denies.?Atrial Fib.?denies.?Murmur/Palpitations?denies.?Gastrointestinal:?Hemorrhoids?denies.?Stomach/Abdominal pain?denies.?Dark blood stool?denies.?Irritable bowel ?denies.?Constipation?denies.?Diarrhea?denies.?Vomiting?denies.?Hematology:?Swelling?admits.?Bruising?denies.?Bleeding problem?denies.?Genitourinary:?Blood urine?denies.?Frequent/Painfu/urination/bladder control?denies.?Kidney stones?denies.?Infection (UTI)?denies.?Nephropathy?denies.?Musculoskeletal:?Hammertoes?admits.?Bunions?denies.?Scoliosis/kyphosis?denies.?Muscle cramps / walking?denies.?Generalized aches and pains?denies.?Weakness?denies.?Integ.:?Monson?denies.?Scars?denies.?Corns/calluses?admits.?Ingrown nails?admits.?Painful nails?denies.?Rashes?denies.?Neurologic:?Difficulty sleeping?denies.?Bipolar?denies.?Brain disorder?denies.?Numbness?admits.?Balance trouble?denies.?Confusion?denies.?Fainting/blackouts?denies.?Headache?denies.?Tr emors?denies.? * Medical History:? * Surgical History:?cancer karie jason cataract surgery cholecystectomy Left hip replacement - 2003 hysterectomy thyroidectomy needle Biopsy breast tissue 01/2017,02/2017Breast biopsy [place] [place] 03/2017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 10/2011[place] 07[place] [place] BP was Low / Heart blockage few hrs 11/2022 * Family History:?Mother: dece ased, diagnosed with Family history of arthritis, Unspecified essential hypertension, Unspecified heart disease, Unspecified cerebral artery occlusion with cerebral infarction.?Father: , diagnosed with Unspecified heart disease.?Paternal Grand Mother: cancer.?Paternal Grand Father: diagnosed with Diabetic - NIDDM.? * Social History:?Tobacco Use:?Tobacco Use/Smoking?Are you a:?former smoker ?Additional Findings: Tobacco Non-User?Current non-smoker ?Tobacco use other than smoking?Are you an other tobacco user??No ???Miscellaneous:?Caffeine: yes, frequency:, 1 cups per day. ?Children: yes, 4. ?Exercise: yes, housework, /yard work. ?Marital status: . ?Occupation: Retired-[employer]. * Medications:?TakingCelecoxib clonazePAM Divalproex Sodium hydroCHLOROthiazide 25 MG Tablet as directed Orally Once a dayLantus , Notes: 24 units 1x adayLipitor Lisinopril 20 MG Tablet as directed Orally Once a dayMeclizine HCl NovoLOG FlexPen Procardia Pravastatin Sodium 80 MG Tablet 1 tablet Orally Once a dayExtra Depth Orthopedic Shoes (1 Pair) with Customized Heat Molded Multidensity Innersoles (3 Pair) as directed Dx: IDDM/Polyneuropathy (E10.42), Hammertoe Foot Deformity (M20.41,M20.42), Preulcerative Skin Lesion(s) (L85.1)Taking Celecoxib Taking clonazePAM Taking Divalproex Sodium Taking hydroCHLOROthiazide 25 MG Tablet as directed Orally Once a dayTaking Lantus , Notes: 24 units 1x adayTaking Lipitor Taking Lisinopril 20 MG Tablet as directed Orally Once a dayTaking Meclizine HCl Taking NovoLOG FlexPen Taking Procardia Taking Pravastatin Sodium 80 MG Tablet 1 tablet Orally Once a dayTaking Extra Depth Orthopedic Shoes (1 Pair) with Customized Heat Molded Multidensity Innersoles (3 Pair) as directed Dx: IDDM/Polyneuropathy (E10.42), Hammertoe Foot Deformity (M20.41,M20.42), Preulcerative Skin Lesion(s) (L85.1)Not-Taking/PRNNIFEdipine Medication List reviewed and reconciled with the patientNot-Taking/PRN NIFEdipine Medication List reviewed and reconciled with the patient * Allergies:?Adhesive Tape: ra shSeasonal ICyes[Allergies Verified] Objective: * Vitals:?Ht: 5 ft 6 in, Wt: 1 75, BMI: 28.24, Shoe size: 10M, BP: 128/68 mm Hg, BS: 61, Wt-k.38 kg. * ???Past Orders: ???Lab:HEMOGLOBIN A1C (GLYCO HEMOGLOBIN) (Order Date - 11/16/2023) (Collection Date - 11/16/2023) ? Value Reference Range ?HEMOGLOBIN A1C % (HH) 7.3 * Examination: ???Neurological: ?SENSORY:?Neurological exam demonstrates, reduced light touch sensation, reduced sharp/dull discrimination lower extremity, B/L, 5.07 monofilament test performed at plantar aspects of 5 varied sites per foot shows sensation, reduced, B/L.?Nails: ?NAILS are:?Elongated, overgrown, dystrophic, lytic, greater than 3mm thick, discolored and friable with crumbly malodorous subungual debris, 1-5 B/L.?Dermatologic: ?SKIN FINDINGS:?Skin exam reveals Keratotic lesion(s) located at, Medial, IPJ, TA, Dorsal, DIPJ, T8, SUB MET (s), 1, B/L, Heel(s), B/L .?Ingrown Nail: ?INSPECTION:?Reveals nail incurvation, dull pain on palpation due to neuropathy, groove hypertrophy , Medial nail border , T5.? Assessment: * Assessment: 1.?Type 1 diabetes mellitus with diabetic polyneuropathy - E10.42?2.?Tinea unguium - B35.1?3.?Ingrown nail - L60.0, Medial nail border , T5? Plan: * Treatment: 2.?Ingrown nail?Procedure: 18547-Txfpyajb Plate * Procedures:?Debride Nail 6-10:?Nail debridement?Performance of this nail treatment by a nonprofessional would put this patients foot and overall health at risk. Therefore, nail debridement was performed extensively to reduce/remove overall nail length, girth, thickness, subungual debris, and necrotic tissue, by manual and/or electrical means through the use of a nail nipper and/or dremel-type precision lens grinder, to a more viable healthy nail plate or bed tissue 6-10. Silver nitrate used for any petechial bleeding as necessary. Definitive antifungal treatment options have been reviewed and discussed with the patient. The patient chooses, no pharmaceutical tx - 29497.?Keratoma Treatment:?Parring or Cutting of Benign Hyperkeratotic Lesion(s)?43241 ( >4 Lesions) - The Benign hyperkeratotic lesions, as described above were pared, and/or cut utilizing a sterile #15 blade, tissue nippers, and/or dremel.?Nail Avulsion:?Location?Medial nail border?,?T5.?Anesthesia?was deferred - NEUROPATHY: patient has medically documented neuropathic condition affecting sensation.?Procedure?A fine sterile elevator was placed between the eponychium, nail fold, and nail plate to separate the structures. A sterile nail splitter, and/or sterile 316 blade, was then used to longitudinally section the nail along its entire length through the eponychium to the area under the nail fold. The offending portion of nail was from the nail bed with a rolling action and then removed with a hemostat. No underlying bone was identified. There was minimal bleeding as hemostasis was achieved through the temporary use of either a digital tourniquet or the aforementioned local with epinephrine. A bacitracin sterile dressing was applied. Local wound aftercare instructions were discussed and dispensed. The patient was informed of both conservative and future surgical procedures to prevent recurrence. Tylenol or Motrin was recommended for pain or discomfort (12387) , DIABETES: Pt was advised as to the risk of delayed or nonhealing due to diabetes. Pt is to call the office with any questions, concerns, or complications.? * Procedure Codes:?32654 DEBRI DE NAIL, 6 OR MORE, Modifiers: XS 79731 Avulsion Plate, Modifiers: XS , [id number] TRIM SKIN LESIONS, OVER 4, Modifiers: XS * Follow Up:?prn * Images: * Sign off status: Completed true * Provider:?Fernando Lim DPM Date:?2023 Generated for Angélica ken/Jonnie/Nat on:?10/31/2024 07:06 PM EST History and Physical Notes * HPI (History of Present Illness) Category Sub-Category Detail Notes Category Not es At Risk footcare Pt States Last PCP Visit: Date: 4 Examination Category Sub-Category Detail Notes Category Not es Ingrown Nail INSPECTION: Reveals nail inc urvation, dull pain on palpation due to neuropathy, groove hypertrophy , Medial nail border , T5 Neurological SENSORY: Neurological exa m demonstrates, reduced light touch sensation, reduced sharp/dull discrimination lower extremity, B/L, 5.07 monofilament test performed at plantar aspects of 5 varied sites per foot shows sensation, reduced, B/L Dermatologic SKIN FINDINGS: Skin exam reveal s Keratotic lesion(s) located at, Medial, IPJ, TA, Dorsal, DIPJ, T8, SUB MET (s), 1, B/L, Heel(s), B/L Nails NAILS are: Elongated, overg rown, dystrophic, lytic, greater than 3mm thick, discolored and friable with crumbly malodorous subungual debris, 1-5 B/L
--- OUTSIDE RECORDS SUMMARY | 2024-10-31 19:07 | XMS_ITS ---
Author Organization [facility] Address [address] [place] [address] Care Team Providers Care Mds Nurse Name Role Phone Janes Foster MD Primary Care Provider Fernando Wall Unavailable [phone] REASON FOR VISIT cx 10/18 Encounters Encounter Location Date Provider Diagnosis [address] [address] 10/17/2024 Fernando Lim Plan Of Treatment No Information Progress Notes * Lisa HOLLIDAY ADOB:[birth year] (89 yo F)Acc No.[id number]:10/17/2024 Patient:?ELIZABETH Lisa Torrez :1935???Age:88 Y???Sex:Female Address:[address] [place], [address] * * Date:?
--- OUTSIDE RECORDS SUMMARY | 2024-10-31 19:07 | XMS_ITS | Patient Health Record ---
Author Organization [facility] Address [address] [facility] [place] [address] Care Team Providers Care Glass Blower Name Role Phone Janes Foster MD Primary Care Provider Fernando Wall Unavailable [phone] Allergies Allergen (clinical drug ingredient) Drug/Non Drug Allergy documented on EMR Reaction Allergy Type Onset Date Status Seasonal IC Unknown Drug Allergy Activ e Adhesive Tape rash Drug Allergy Act marquise Results Component Value Reference Range Notes HEMOGLOBIN A1C (GLYCOHEMOGLO BIN) Reviewed date:02/19/2024 12:09:26 PM Interpretation: Performing Lab: Notes/Report: HEMOGLOBIN A1C % (HH) 7.3 Reason For Referral No Information Medications Medication SIG (Take, Route, Frequency, Duration) Notes Start Date End Date Status Meclizine HCl Active Lisinopril 20 MG as directed Orally Once a day Active Procardia Active NovoLOG FlexPen Acti ve Lipitor Active Lantus 24 units 1x aday Active hydroCHLOROthiazide 25 MG as directed Or ally Once a day Active Celecoxib Active Extra Depth Orthopedic Shoes (1 Pair) with Customized Heat Molded Multidensity Innersoles (3 Pair) as directed Dx: IDDM/Polyneuropathy (E10.42), Hammertoe Foot Deformity (M20.41,M20.42), Preulcerative Skin Lesion(s) (L85.1) 09/29/2023 Active Pravastatin Sodium 80 MG 1 tablet Orally Once a day Active Divalproex Sodium Ac tive clonazePAM Active NIFEdipine Not-Takin g Immunizations Vaccine Route Administration Date Status Comme nts COVID-19 Pfizer BioNTech Vaccine Unknown 03/20/2022 Administered 1st 12/28/2020 2nd 01/18/2021 3rd 08/27/2021 Influenza Unknown 10/03/2015 Administered Influenza Unknown 07/17/2016 Administered Influenza Unknown 08/14/2017 Administered Influenza Unknown 08/14/2018 Administered Influenza Unknown 07/17/2022 Administered Influenza Unknown 07/17/2023 Administered Pneumococcal Unknown 09/16/2016 Administered Social History Tobacco Use: Social History Observation Description Date Details (start date - stop date) Former Smoker NA - NA Tobacco Use/Smoking Question Answer Notes Are you a: former smoker Additional Findings: Tobacco Non-User Current no n-smoker Alcohol Screen Question Answer Notes Did you have a drink containing alcohol in the p ast year? No Points 0 Interpretation Negative Tobacco use other than smoking: Question Answer Notes Are you an other tobacco user? 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 Vital Signs Blood pressure diastolic 68 mm Hg 07/15/2024 Height 5 ft 6 in in 07/15/2024 Blood pressure systolic 128 mm Hg 07/15/2024 Weight 175 lbs 07/15/2024 BMI 28.24 kg/m2 07/15/2024 Procedures Procedure Date Ordered Date Performed Result Body Sit e 42520-XXMIRIZ NAIL, 6 OR MORE 02/19/2024 N/A 89555-Zgzwlajj Plate 02/19/2024 N/A 06440-ITWY SKIN LESIONS, OVER 4 02/19/2024 N/A 89775-TLDGJJX NAIL, 6 OR MORE 05/03/2024 N/A 71354-Uzjfvdgx Plate 05/03/2024 N/A 32873-RKIV SKIN LESIONS, OVER 4 05/03/2024 N/A 49444-GNGSUKG NAIL, 6 OR MORE 07/15/2024 N/A 76733-Rlwqpgmi Plate 07/15/2024 N/A 78719-KIFO SKIN LESIONS, OVER 4 07/15/2024 N/A Encounters Encounter Location Date Provider Diagnosis [address] [address] 02/19/2024 Fernandomahi Lim Type 1 diabetes mellitus with diabetic polyneuropathy E10.42 ; Tinea unguium B35.1 ; Ingrown nail L60.0 ; Other hammer toe(s) (acquired), right foot M20.41 and Other hammer toe(s) (acquired), left foot M20.[address] [address] 05/03/2024 Fernando Lim Type 1 diabetes mellitus with diabetic polyneuropathy E10.42 ; Tinea unguium B35.1 and Ingrown nail L60.[address] [address] 07/15/2024 Fernando Lim Type 1 diabetes mellitus with diabetic polyneuropathy E10.42 ; Tinea unguium B35.1 and Ingrown nail L60.[address] [address] 10/17/2024 Fernando Lim [address] [address] 12/25/2023 Fernando Lim Assessments Encounter Date Diagnosis (ICD Code) Assessment Notes Treatment Notes Treatment Clinical Notes Section Notes 02/19/2024 Type 1 diabetes mellitus with diabetic polyneuropathy (ICD-10 - E10.42) 02/19/2024 Tinea unguium (ICD-10 - B35.1) 05/03/2024 Type 1 diabetes mellitus with diabetic polyneuropathy (ICD-10 - E10.42) 05/03/2024 Tinea unguium (ICD-10 - B35.1) 07/15/2024 Type 1 diabetes mellitus with diabetic polyneuropathy (ICD-10 - E10.42) 07/15/2024 Tinea unguium (ICD-10 - B35.1) 07/15/2024 Ingrown nail (ICD-10 - L60.0) 05/03/2024 Ingrown nail (ICD-10 - L60.0) 02/19/2024 Ingrown nail (ICD-10 - L60.0) 02/19/2024 Other hammer toe(s) (acquired), right foot (ICD-10 - M20.41) Response to treatment,Impro vement 02/19/2024 Other hammer toe(s) (acquired), left foot (ICD-10 - M20.42) Response to treatment,Impro vement Plan Of Treatment Pending Test Test Name Order Date Hemoglobin A1c 11/30/2015 26571-TRNVCIB NAIL, 6 OR MORE 02/01/2016 38657-XHJZCED NAIL, 6 OR MORE 04/08/2016 35260-DUSXOFR NAIL, 6 OR MORE 07/08/2016 71500-YWIPBLD NAIL, 6 OR MORE 09/16/2016 75898-QVQIONX NAIL, 6 OR MORE 08/21/2015 18708-NMNFQEF NAIL, 6 OR MORE 11/30/2015 64169-GAGJCPW NAIL, 6 OR MORE 08/25/2014 69788-UUKFNML NAIL, 6 OR MORE 10/27/2014 78377-GYLXDLA NAIL, 6 OR MORE 01/12/2015 12721-TDRBJGU NAIL, 6 OR MORE 03/16/2015 92008-IHHXKFS NAIL, 6 OR MORE 05/25/2015 50286-DUZDDFD NAIL, 6 OR MORE 06/18/2012 57853-UMZGSPM NAIL, 6 OR MORE 08/27/2012 71100-GVEJSUO NAIL, 6 OR MORE 01/04/2013 44734-WZFAYEW NAIL, 6 OR MORE 03/25/2013 25942-PZEUSKG NAIL, 6 OR MORE 06/17/2013 25816-BWEJHXR NAIL, 6 OR MORE 08/26/2013 77169-APFYRIO NAIL, 6 OR MORE 12/02/2013 73177-UQJHUSE NAIL, 6 OR MORE 02/10/2014 20589-IQEPEYV NAIL, 6 OR MORE 06/06/2014 19127-COZQOOM NAIL, 6 OR MORE 12/19/2016 39722-SHVSLJA NAIL, 6 OR MORE 04/03/2017 71409-ZDFMLCM NAIL, 6 OR MORE 06/05/2017 58735-UPFHBRH NAIL, 6 OR MORE 08/14/2017 36260-JTOBHPL NAIL, 6 OR MORE 10/23/2017 29663-MENKEDU NAIL, 6 OR MORE 01/01/2018 03100-QBYKULM NAIL, 6 OR MORE 05/11/2018 28698-RIXWQOB NAIL, 6 OR MORE 07/27/2018 86841-QOLFKII NAIL, 6 OR MORE 10/12/2018 52654-SOXJUYD NAIL, 6 OR MORE 01/14/2019 38120-GOEVREC NAIL, 6 OR MORE 04/08/2019 07724-CNRCWGI NAIL, 6 OR MORE 08/16/2019 42550-ZYVVBYE NAIL, 6 OR MORE 10/25/2019 73347-KZMHXLL NAIL, 6 OR MORE 01/03/2020 01226-HMYHVPI NAIL, 6 OR MORE 05/01/2020 94182-ECKOKFI NAIL, 6 OR MORE 08/17/2020 21008-KLLCTDI NAIL, 6 OR MORE 10/30/2020 72404-QICXDDY NAIL, 6 OR MORE 01/01/2021 71417-VXCOCLL NAIL, 6 OR MORE 03/29/2021 89680-HJGCKIB NAIL, 6 OR MORE 06/14/2021 04293-LBSUPFG NAIL, 6 OR MORE 11/29/2021 69921-KDDTPBN NAIL, 6 OR MORE 02/11/2022 43551-HJLTBFL NAIL, 6 OR MORE 06/10/2022 27986-BTVDNDY NAIL, 6 OR MORE 09/13/2021 23964-FOVIGNK NAIL, 6 OR MORE 08/22/2022 21727-WCCWQYY NAIL, 6 OR MORE 10/31/2022 61224-QVRNRTE NAIL, 6 OR MORE 01/09/2023 30637-IYJIPKT NAIL, 6 OR MORE 03/24/2023 96585-IWDGUWJ NAIL, 6 OR MORE 06/05/2023 96187-SFHOBZM NAIL, 6 OR MORE 09/29/2023 33631-JXRICXM NAIL, 6 OR MORE 02/19/2024 47432-EXSVOJN NAIL, 6 OR MORE 05/03/2024 43771-VVUZVLF NAIL, 6 OR MORE 07/15/2024 05800-Ergfainq Plate 07/15/2024 93340-Rzjyatpu Plate 09/29/2023 08974-Bkmicjdw Plate 05/03/2024 72341-Czgtdxoy Plate 02/19/2024 27358-Iqybetry Plate 06/05/2023 93258-Qsqdfull Plate 10/30/2020 82194-Fhopknmf Plate 03/24/2023 42136-Zmhxgjve Plate 08/22/2022 54475-Ouhbxvun Plate 09/13/2021 49240-Yhfouobe Plate 06/10/2022 75874-Ssksauab Plate 02/11/2022 83229-Nkcgxfhv Plate 11/29/2021 99639-Bpogtjvr Plate 06/14/2021 10170-Yzitwpun Plate 03/29/2021 08037-Naauceym Plate 05/01/2020 32546-Smlmvkba Plate 06/06/2014 09064-Uvfwjhei Plate 02/10/2014 37677-Umjibyjc Plate 12/02/2013 22076-Wdhcwpjf Plate 05/25/2015 95420-Zfcdiwfq Plate 03/16/2015 51257-Ggoaxzyp Plate 01/12/2015 76322-Srejoesm Plate 01/04/2013 52041-Wylymmgr Plate 08/21/2015 79963-Swbtyqlh Plate 11/30/2015 33509-Eoyrdxxr Plate Each Additional 70451-Edfrzmfu Plate Each Additional 43674-Hgjyakjq Plate Each Additional 11/2014 91782-Ecaecndw Plate Each Additional 08/2015 86780-Izptnyvc Plate Each Additional 46496-Npyedgwp Plate Each Additional 22616-Zmptwfhg Plate Each Additional 29136-Fbinblro Plate Each Additional 13109-Jcwqzghq Plate Each Additional 40389-Yverbkhp Plate Each Additional 27620-Wzmbinie Plate Each Additional 29077-Hdgerles Plate Each Additional 38340 I&D ABSCESS- SIMPLE,SINGLE 015 47809-MTZQ SKIN LESIONS, OVER 4 06/10/20 22 86788-JULQ SKIN LESIONS, OVER 4 08/22/20 22 86796-GJLT SKIN LESIONS, OVER 4 03/24/20 23 76124-IEXK SKIN LESIONS, OVER 4 01/09/20 23 88738-DOZX SKIN LESIONS, OVER 4 10/31/20 22 66929-YHQB SKIN LESIONS, OVER 4 02/12/20 22 51504-GYZM SKIN LESIONS, OVER 4 06/05/20 23 98033-ROIG SKIN LESIONS, OVER 4 09/29/20 23 59619-FEQG SKIN LESIONS, OVER 4 02/19/20 24 46722-MHNY SKIN LESIONS, OVER 4 05/03/20 24 51868-YCJZ SKIN LESIONS, OVER 4 07/15/20 24 37659-BYEN SKIN LESIONS, 2 TO 4 11/29/19 22 67832-LARU SKIN LESIONS, 2 TO 4 03/29/20 77346-WYKK SKIN LESIONS, 2 TO 4 01/01/20 43175-IAIG SKIN LESIONS, 2 TO 4 06/14/20 01795-BGOJ SKIN LESIONS, 2 TO 4 09/13/20 21 39314-DKOA SKIN LESIONS, 2 TO 4 05/01/20 30950-SNKE SKIN LESIONS, 2 TO 4 01/03/20 02259-ONUA SKIN LESIONS, 2 TO 4 10/30/20 30253-GAQG SKIN LESIONS, 2 TO 4 08/17/20 11686-NYOH SKIN LESIONS, 2 TO 4 10/25/20 19 37227-KNZK SKIN LESIONS, 2 TO 4 08/16/20 43684-DATK SKIN LESIONS, 2 TO 4 04/08/20 19 35211-CNDW SKIN LESIONS, 2 TO 4 01/15/20 19 49449-ZHTJ SKIN LESIONS, 2 TO 4 10/12/20 18 52226-NLAJ SKIN LESIONS, 2 TO 4 07/27/20 18 55322-EMSG SKIN LESIONS, 2 TO 4 05/11/20 18 37774-SEYH SKIN LESIONS, 2 TO 4 01/01/20 18 24440-LJNP SKIN LESIONS, 2 TO 4 10/23/20 17 48635-TSKJ SKIN LESIONS, 2 TO 4 08/14/20 17 37586-IQHZ SKIN LESIONS, 2 TO 4 06/05/20 17 96544-JCBM SKIN LESIONS, 2 TO 4 12/19/19 17 28935-VNUU SKIN LESIONS, 2 TO 4 04/03/20 17 40445-URVF SKIN LESIONS, 2 TO 4 08/21/20 15 72961-RPKB SKIN LESIONS, 2 TO 4 11/30/19 16 40895-ZTZD SKIN LESIONS, 2 TO 4 09/16/20 16 92131-DKLF SKIN LESIONS, 2 TO 4 07/08/20 16 82012-RYIV SKIN LESIONS, 2 TO 4 04/08/20 16 42841-LMPZ SKIN LESIONS, 2 TO 4 02/01/20 16 26770-OEUG SKIN LESIONS, 2 TO 4 05/25/20 15 01331-WYRY SKIN LESIONS, 2 TO 4 03/16/20 15 09750-VWRA SKIN LESIONS, 2 TO 4 01/12/20 15 39615-VASH SKIN LESIONS, 2 TO 4 10/27/20 14 76612-HFIV SKIN LESIONS, 2 TO 4 08/25/20 14 75194-KTSC SKIN LESIONS, 2 TO 4 06/18/20 12 22557-JCXY SKIN LESIONS, 2 TO 4 03/25/20 13 63672-SXSD SKIN LESIONS, 2 TO 4 01/04/20 13 49480-GMYX SKIN LESIONS, 2 TO 4 08/27/20 12 93821-GBNZ SKIN LESIONS, 2 TO 4 07/25/20 11 68432-LFOU SKIN LESIONS, 2 TO 4 10/03/20 11 87225-NUEF SKIN LESIONS, 2 TO 4 12/23/19 12 01442-FHLB SKIN LESIONS, 2 TO 4 03/19/20 12 60481-ZYIP SKIN LESIONS, 2 TO 4 06/06/20 14 21406-FNYH SKIN LESIONS, 2 TO 4 02/11/20 14 70875-CWRC SKIN LESIONS, 2 TO 4 12/02/19 14 80025-IADU SKIN LESIONS, 2 TO 4 08/26/20 13 82241-XMTZ SKIN LESIONS, 2 TO 4 06/17/20 13 U2460-RKMTQSCY DYSTROPHIC NAILS ANY # T6653-UUQUGVIN DYSTROPHIC NAILS ANY # J1390-RUVCQQIQ DYSTROPHIC NAILS ANY # C6085-GPDPWUUB DYSTROPHIC NAILS ANY # Insurance Providers Payer Name Payer Address Payer Phone Subscriber Number Group Number Insured Name Patient Relationship to Insured Coverage Start Date Coverage End Date Medicare National [employer] [address] [place] [address] [id number] Lisa Holliday Self - patient is the insured [facility] [address] [place] [address] [id number] Lisa Holliday Self - patient is the insured Medical (General) History Medical History History ICD Code Cholesterol transfusions thyroid disorder ingrown nails gall bladder problems cancer back, hip, knee pain Arthritis hypertension type I diabetes Surgical History Surgery Date(Month/Year) cancer surgery cataract surgery cholecystectomy Left hip replacement - 2003 hysterectomy thyroidectomy needle Biopsy breast tissue 01/2017,02/15 017 Breast biopsy -[facility] 03/2017 Total Right Hip replacement Surgery 03/31 Hospitalization History Reason Date(Month/Year) [facility] - BP was Low / Heart blockage few hrs 11/2022 Vertigo 07/2012 Vertigo. 10/2011
--- OUTSIDE RECORDS SUMMARY | 2024-10-31 19:07 | XMS_ITS ---
Author Organization [facility] Address [address] [place] [address] Care Team Providers Care Mathematician Research Name Role Phone Kristin MAGALLANES, Janes Primary Care Provider Fernando Wall Unavailable [phone] Encounters Encounter Location Date Provider Diagnosis [facility] [address] [place] [address] 10/18/2024 Fernando Lim Plan Of Treatment No Information Progress Notes * Lisa HOLLIDAY ADOB:[birth year] (89 yo F)Acc No.[id number]:10/18/2024 Progress Note Patient:?Lisa HOLLIDAY Provider:?Fernando Lim DPM :1935???Age:88 Y???Sex:Female D ate:10/18/2024 [place] Pcp:Janes Foster MD Subjective: * Chief Complaints: * ??? * Medical History:? Objective: * Vitals:? Assessment: Plan: * Treatment: * Images: * The named appointment provid er may or may not be the originator of this progress note, and it is not deemed complete until electronically signed by the appointment provider. Sign off status: Pending * Provider:?Fernando Lim DPM Date:?2023 Generated for Vii ng/Fabarg/eTransmitting on:?10/31/2024 07:06 PM EST
--- OUTSIDE RECORDS SUMMARY | 2024-10-31 19:07 | XMS_ITS | Data Portability ---
Author Organization [place] - [facility] Address [address] [address] Care Team Providers Care Anti Air Warfare Operations Officer Name Role Phone PHILIPP OVIEDO Primary Care Provider Assessment Encounter Date Assessment Date Assessment LastModified by Organization Details LastModified Time 07/26/2024 07/26/2024 Cerumen was successfully removed bilaterally, which patient tolerated well. She did report an improvement in her hearing thereafter, but noted that it was still quite poor. Unfortunately, she was unable to stay for audiometric testing today. She will return at another time for reevaluation and complete audiometric testing. [email or web address] Not available 07/26/2024 11:55:07 Plan of Treatment Reminders Order Date Submit Date Provider Last Modified By Organization Details Last Modified Time Details Appointments None record ed. Lab None record ed. Referral None record ed. Procedures None record ed. Surgeries None record ed. Imaging None record ed. Medication Orders None record ed. Patient TargetsNo targets recorded. Patient InstructionsNo instructions recorded. Reason for Referral None Reported. Problems Name Problem SNOMED Code Status Onset Date Resolution Date Notes Provider Name and Address Organization Details Recorded Time Impacted cerumen in right ear 25030099146 44451 Active 2021 Impacted cerumen, right ear; Note: Date Diagnosed : 07/14/2022 1:28 PM (H61.21) Not Available [facility] 4 02:40:09 Sensorine ural hearing loss of bilateral ears 867089429 Active 2015 Sensorine ural hearing loss, bilateral ; Note: Date Diagnosed : 6 1:22 PM (H90.3) Not Available [facility] 4 02:40:08 Otitis media of left ear 71464948896 32412 Active 2019 Otitis media, unspecifi ed, left ear; Note: Date Diagnosed : 03/22/2020 9:49 AM (H66.92) Not Available [facility] 4 02:40:08 Impacted cerumen of bilateral ears 56225583411 64686 Active 2015 Impacted cerumen, bilateral ; Note: Date Diagnosed : 6 12:21 PM (H61.23) Not Available [facility] 4 02:40:14 Impacted cerumen 64526486 Active 2013 Impacted cerumen; CMS Risk: low risk CMS Treatment : new problem (to examiner) : no additiona l workup planned Not Available [facility] 4 02:40:16 Otorrhea of left ear 52571766460 89574 Active 2019 Otorrhea, left ear; Note: Date Diagnosed : 04/23/2020 3:37 PM (H92.12) Not Available [facility] 4 02:40:13 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 50455710812 31786 Active 2019 Central perforati on of tympanic membrane, left ear; Note: Date Diagnosed : 06/27/2020 1:43 PM (H72.02) Not Available [facility] 4 02:40:11 Problem Notes None recorded. Procedures Surgical History Date Name Laterality Status Provider Name and Address Organization Details Recorded Time 4 Cerumen removal without microscope bilat completed CATHERINE DESAI PA-C [address] [place] [address], [id number] 07/26/2024 11:54:29 Imaging Results None recorded. Procedure Notes None recorded. Medical Equipment None Reported. Medications Name Sig Start Date Stop Date Status Note LastModified by Organization Details LastModified Time nifedipin e ER 30 mg tablet,ex tended release 24 hr 03/21 completed Medicati on ID: [id number] Du ration Value: 90 Reason: () Brand Name: nifedipi ne Send Method: E-Prescr ibed Sub s Allowed: subs OK Speci al Instruct ion: TAKE 1 TABLET BY MOUTH EVERY DAY Medi [facility] nericNam e: nifedipi ne Not Available Not Available Not Available amoxicill in 500 mg capsule TAKE 4 CAPSULES BY MOUTH ONE HOUR PRIOR TO DENTAL PROCEDUR E active Not Available Not Available No t Available metformin 500 mg tablet 03/15 completed Medicati on ID: [id number] D uration Value: 90 Brand Name: metformi n Send Method: E-Prescr ibed Sub s Allowed: subs OK [facility] : metformi n Not Available Not Available Not Available lisinopri l 20 mg tablet active Not Available Not Available Not Available clonazepa m 0.5 mg tablet 04/23 completed Medicati on ID: [id number] D uration Value: 15 Reason: () Brand Name: clonazep am Send Method: E-Prescr ibed Sub s Allowed: subs OK Medic [facility] ericName : clonazep am Not Available Not Available Not Available Lantus U-100 Insulin 100 unit/mL subcutane ous solution 04/23 completed Medicati on ID: [id number] Du ration Value: 56 Reason: () Brand Name: Lantus U-100 Insulin Send Method: E-Prescr ibed Sub s Allowed: subs OK Speci al Instruct ion: INJECT 30 - 38 UNITS SUBCUTAN EOUSLY OR DIRECTED BY MD [facility] : Lantus U-100 Insulin Not Available Not Available Not Available levothyro xine 100 mcg tablet 03/15 completed Medicati on ID: [id number] D uration Value: 90 Brand Name: levothyr oxine Se nd Method: E-Prescr ibed Sub s Allowed: subs OK Medic [facility] ericName : levothyr oxine Not Available Not Available Not Available ofloxacin 0.3 % ear drops 03/15 completed Medicati on ID: [id number] D uration Value: 10 Brand Name: ofloxaci n Send Method: E-Prescr ibed Sub s Allowed: subs OK Medic [facility] ericName : ofloxaci n Not Available Not Available Not Available pravastat in 80 mg tablet active Not Available Not Available Not Available hydrochlo rothiazid e 25 mg tablet active Not Available Not Available Not Available metoprolo l succinate ER 25 mg tablet,ex tended release 24 hr active Not Available Not Available Not Available lisinopri l 10 mg-hydroc hlorothia zide 12.5 mg tablet TAKE 1 TABLET BY MOUTH EVERY DAY active Not Available Not Available No t Available levothyro xine 112 mcg tablet active Not Available Not Available Not Available tobramyci n 0.3 %-dexamet hasone 0.1 % eye drops,ester pension 3 drop 04/23 completed Medicati on ID: [id number] D uration Value: 14 Prescri bed By Name: Clara perez MD Brand Name: tobramyc in-dexam ethasone Send Method: E-Prescr ibed Sub s Allowed: subs OK Speci al Instruct ion: apply to affected ear Medi cationGe nericNam e: tobramyc in-dexam ethasone Not Available Not Available Not Available neomycin- polymyxin -hydrocor t 3.5 mg-10,000 unit/mL-1 % ear drops,ester p 03/21 completed Medicati on ID: [id number] Du ration Value: 30 Reason: () Brand Name: neomycin -polymyx in-HC Se nd Method: E-Prescr ibed Sub s Allowed: subs OK Speci al Instruct ion: INSTILL 5 DROPS RIGHT EAR TWICE A DAY Medi cationGe nericNam e: neomycin -polymyx in-HC Not Available Not Available Not Available Novolog FlexPen U-100 Insulin aspart 100 unit/mL (3 mL) subcutane ous PLEASE SEE ATTACHED FOR DETAILED DIRECTIO NS active Not Available Not Available No t Available FreeStyle Lite Strips INSULIN DEPENDEN T DIABETIC TYPE 2 (E11.9) USE TO CHECK BLOOD SUGARS TWICE A DAY active Not Available Not Available No t Available Lantus Solostar U-100 Insulin 100 unit/mL (3 mL) subcutane ous pen INJECT 24 UNITS SUBCUTAN EOUSLY DAILY. ROTATE INJECTIO N SITES active Not Available Not Available No t Available diclofena c 1 % topical gel 03/15 completed Medicati on ID: [id number] B rand Name: diclofen ac sodium S end Method: E-Prescr ibed Sub s Allowed: subs OK Medic ationGen ericName : diclofen ac sodium Not Available Not Available Not Available Arexvy (PF) 120 mcg/0.5 mL IM suspensio n active Medicati on ID: [id number] B rand Name: Audra (VELASQUEZ) Billy d Method: E-Prescr ibed Sub s Allowed: subs OK Medic ationGen ericName : Audra (PF) Not Available Not Available Not Available Vitals Date Recorded Body height Body mass index (BMI) Body weight Provider Name and Address Organization Details Last Updated DateTime 07/26/2024 157.48 cm 30.7 kg/m2 29008.52 g Donny Sarkar [place] - [facility] 07/26/2024 11:16:48 Social History None recorded. Functional Status None recorded. Mental Status None recorded. Family History Nothing Reported. Medical History No medical history recorded. Gynecological HistoryNo gynecological history recorded. Obstetrics History GPAL:G 0 P 0 0 0 0 Past Encounters Encounter ID Performer Location Encounter Start Date Encounter Closed Date Diagnosis/Indication Diagnosis SNOMED-CT Code Diagnosis ICD10 Code [id number] RUIZ CROW MD [facility] [address] [address] 07/26/2024 11:12:02 07/26/2024 11:56:27 Impacted cerumen of bilateral ears [id number] 457430 H61.23 Health Concerns Section Related Observation LastModified by Organization Detai ls LastModified Time None Recorded Concern Status LastModified by Organization Details LastModified Time None Recorded Advance Directives Directive None Recorded Payers Encounter Date Sequence Insurance Name Policy Number Policy Genao Covered Member ID Genao Member ID Guarantor Name 07/26/2024 1 MEDICARE [place]: [employer] Lisa Holliday [id number] Lisa Holliday 07/26/2024 2 [facility] [place] - PLAN 1 (MEDICARE SUPPLEMENT) [id number] Lisa Holliday [id number] Lisa Holliday Notes Date Note Type Note Provider Name and Address Organization Details Recorded Time 07/26/2024 text/html 88-year-old female presents for evaluation of the ears. She reports that her hearing is very poor despite her hearing aids. She notes it has been a very long time since she had an audiogram. She denies otalgia, otorrhea, and tinnitus. RUIZ CROW MD [address] [place] [address], [id number], [place] - [facility] 07/26/2024 17:26:24 OBGyn Episode No OBEpisode recorded.
[2024-10-31 20:00] VITALS: BP 147/54; PULSE 51; RESP 28; TEMP 36.6; O2SAT 95
[2024-10-31 20:39] VITALS: RESP 14
[2024-10-31] MEDS: ondansetron HCL 4 MG/2 ML VIAL IVPUSH (20:39)
[2024-10-31] MEDS: Morphine Sulfate 4 MG/ML CARTRIDGE IVPUSH (20:39)
--- NOTE | 2024-10-31 21:13 | PC.NURSE ---
Patient medicated for pain to left hip. Diagnosed with fracture. Pt is hard of hearing at baseline, family at bedside. Needs hearing aids from home. Pending admission with plan to meet with electronic health records specialist/consult tomorrow. Given diet lee melgar by DAYNA Laguna. Diet orders entered.
[2024-10-31 21:32] LABS: MANUAL DIFF FLAG NO
--- NOTE | 2024-10-31 21:33 | PHA.MEDREC ---
Addendum entered by Yvonne Ryder RPh 10/31/24 22:45: Med rec was reviewed by Destiney. Original Note: Pharmacy Consult ? Medication Reconciliation Pharmacy has completed the medication reconciliation. Spoke with patient and patients family at bedside. Patient very hard of hearing but patients daughter was able to talk to her mom to help confirm them medications. The patient confirmed she never started the Nitrofurantoin capsule but the daughter stated they did pick it up and have it at home for the patient. The patient confirmed her Novolog 100 unit/mL (3 mL) and confirmed she does it three times a day before meals and confirmed she took all her doses of it today. She also confirmed her Lantus Solostar 100 unit/mL and confirmed she injects 24 units daily in the morning and confirmed she did that this morning. She confirmed she took all her medications today.
[2024-10-31 21:34] LABS: Basophils Absolute Auto 0.1 X10*3/uL (0.0-0.2); Basophils Percent Auto 0.3 % (0-2); Eosinophils Percent Auto 0.1 % (0-4); Hematocrit 35.9 % (37.0-47.0); Hemoglobin 11.6 g/dl (12.0-16.0); Imm Gran Abs Auto 0.08 X10*3/uL (0.00-0.03); Imm Gran Pct Auto 0.5 % (0.0-0.4); Lymphocytes Absolute Auto 0.8 X10*3/uL (1.2-4.9); Lymphocytes Percent Auto 4.4 % (20-40); Mean Corpuscular HGB Conc 32.3 g/dl (31.0-35.0); Mean Corpuscular Hemoglobin 24.7 pg (27.0-33.0); Mean Corpuscular Volume 76.5 fL (80.0-98.0); Mean Platelet Volume 9.9 fL (9.4-12.3); Monocytes Absolute Auto 0.7 X10*3/uL (0.1-1.2); Monocytes Percent Auto 3.7 % (2-11); Neutrophils Absolute Auto 16.1 x10*3/uL (2.0-8.3); Platelet Count 298 X10*3/uL (160-400); Red Blood Count 4.69 X10*6/uL (4.20-5.50); Red Cell Distribution Width 18.4 % (11.0-16.0); SCAN SMEAR FLAG 1; White Blood Count 17.7 X10*3/uL (4.8-10.8)
[2024-10-31 21:40] LABS: Prothrombin Time 11.6 SEC (10.9-12.4)
[2024-10-31 21:49] LABS: Alanine Aminotransferase 14 U/L (0-31); Albumin Level 3.9 g/dL (3.5-5.0); Alkaline Phosphatase 65 U/L (39-117); Anion Gap 11 (12-20); Aspartate Amino Transferase 34 U/L (5-31); Bilirubin Total 0.4 mg/dL (0.0-1.0); Blood Urea Nitrogen 26 mg/dL (9-16); Carbon Dioxide 25 mmol/L (22-29); Chloride 103 mmol/L (96-108); Creatinine Clr Calc Pharmacy 45.4; Estimated Glomerular Filt Rate 53; Glucose Random 112 mg/dL (60-115); Sodium 135 mmol/L (135-145); Total Protein 7.2 g/dL (6.5-8.0)
[2024-10-31 22:00] VITALS: BP 144/45; PULSE 55; RESP 14; O2SAT 93
--- NOTE | 2024-10-31 22:03 | P.HPHOSP_ITS ---
History of Present Illness Date of Service: 10/31/24 Chief Complaint: Fall This is a 89-year-old female with pertinent history of CAD, left bundle branch block, insulin-dependent diabetes mellitus, hypothyroidism, mixed hyperlipidemia, 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 Patient states she was in the kitchen counter making tea. Subsequently she started to move sideways towards her table where her supper was kept. Patient stumbled and fell on her left side. She was sitting up against a wall as per family member. Patient denies lightheadedness or dizziness prior to the fall. No palpitations or chest pain prior to the fall. Did not lose consciousness. She is unsure but she thinks she missed a step while walking side ways. Did not hit her head. Is not on any anticoagulation. No fever, chills, shortness of breath, abdominal pain, changes in urinary or bowel habits. In the emergency department, imaging with periprosthetic left femoral fracture and Orthopedic surgery was consulted who requested admission to medicine team. Review of Systems 2 Constitutional: Constitutional: Reports no additional constitutional complaints Cardiovascular: Cardiovascular: Reports no additional cardiovascular complaints Respiratory: Respiratory: Reports no additional respiratory complaints Gastrointestinal: Gastrointestinal: Reports no additional gastrointestinal complaints Genitourinary: Genitourinary: Reports no additional female genitourinary complaints [facility] Medical History Patellofemoral arthritis of right knee Diabetes mellitus Left bundle branch block CAD (coronary artery disease) Pertinent family history: Not significant due to age Surgical History Hx of mastectomy Hx of mastectomy Social History Advance Directives: No Advance Directives Information Provided: No Do you have a plan to hurt others: No Plan Current occupational status: 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 Allergies Allergy/AdvReac Type Severity Reaction Status Date / Time adhesive tape [Adhesive Tape] Allergy Unknown SKIN Verified 10/31/24 18:09 REDNESS Home Medications ?Medication ?Instructions ?Recorded ?Confirmed ?Last Taken ?Type insulin aspart U-100 100 unit/mL See Protocol subcut TIDAC 04/03/21 10/31/24 10/31/24 History (3 mL) subcutaneous pen insulin glargine 100 unit/mL (3 24 unit subcut DAILY 04/03/21 10/31/24 10/31/24 History mL) subcutaneous pen levothyroxine 100 mcg tablet 100 mcg PO DAILY@0600 02/12/23 10/31/24 10/31/24 History metoprolol succinate 25 mg 25 mg PO DAILY 02/12/23 10/31/24 10/31/24 History tablet,extended release 24 hr pravastatin 80 mg tablet 80 mg PO DAILY 02/12/23 10/31/24 10/31/24 History acetaminophen 325 mg tablet 325 mg PO DAILY PRN Pain/Fever 10/31/24 10/31/24 Unknown History (Tylenol) lisinopril 10 1 tab PO DAILY 10/31/24 10/31/24 10/31/24 History mg-hydrochlorothiazide 12.5 mg tablet Physical Exam 2 Vital Signs and Narrative: Vital Signs: Last Vital Signs Temp 97.8 F 10/31/24 20:00 Pulse 51 10/31/24 20:00 Resp 14 10/31/24 20:39 BP 147/54 H 10/31/24 20:00 Pulse Ox 95 10/31/24 20:00 O2 Del Method Room Air 10/31/24 20:00 BMI result Body Mass Index 31.9 Elderly female hard of hearing lying in bed in no distress Neck supple, no JVD Regular rate and rhythm, S1-S2 heard Regular breath sounds bilaterally, no wheezing or crackles appreciated Abdomen soft nontender, no guarding, no rigidity Patient is awake, alert and oriented to self, place, time and person ; no focal motor deficit Psych: Normal mood Limited left lower extremity movement due to pain Results Labs 10/31/24 21:27 10/31/24 21:27 Labs: Laboratory Results - last 24 hr 10/31/24 21:27 MCV 76.5 L MCH 24.7 L MCHC 32.3 RDW 18.4 H Plt Count 298 MPV 9.9 Immature Gran % (Auto) 0.5 H Neut % (Auto) 91.0 H Lymph % (Auto) 4.4 L [place] % (Auto) 3.7 Eos % (Auto) 0.1 Baso % (Auto) 0.3 Lymph # (Auto) 0.8 L [place] # (Auto) 0.7 Eos # (Auto) 0.0 Baso # (Auto) 0.1 Abs Immat Gran (auto) 0.08 H Absolute Neuts (auto) 16.1 H Absolute Nucleated RBC 0.000 Nucleated RBC % (auto) 0.0 PT 11.6 INR 1.0 Anion Gap 11 L Estim Creat Clear Calc 45.4 Estimated GFR 53 Random Glucose 112 Calcium 9.0 Magnesium 2.0 Total Bilirubin 0.4 AST 34 H ALT 14 Alkaline Phosphatase 65 Total Protein 7.2 Albumin 3.9 Imaging Radiologist's Impressions: Impressions Cervical Spine CT 10/31/24 18:08 IMPRESSION: 1. No evidence of acute intracranial hemorrhage or edematous territorial infarction. Moderate underlying microangiopathy and generalized cerebral volume loss. 2. No evidence of acute fracture or traumatic subluxation of the cervical spine. Moderate multilevel degenerative spondyloarthropathy of the cervical spine. Electronically signed by: Syd Bill DO 10/31/2024 08:46 PM EST RP Chest X-Ray 10/31/24 18:27 IMPRESSION: Opacity in the left costophrenic angle region, could reflect atelectasis/scarring or trace effusion. Electronically signed by: Freeman Lopez MD 10/31/2024 09:15 PM EST RP Head CT 10/31/24 18:38 IMPRESSION: 1. No evidence of acute intracranial hemorrhage or edematous territorial infarction. Moderate underlying microangiopathy and generalized cerebral volume loss. 2. No evidence of acute fracture or traumatic subluxation of the cervical spine. Moderate multilevel degenerative spondyloarthropathy of the cervical spine. Electronically signed by: Syd Bill DO 10/31/2024 08:46 PM EST RP Assessment and Plan (1) Closed left femoral fracture: Status: Acute Plan This is a 89-year-old female with pertinent history of CAD, left bundle branch block, insulin-dependent diabetes mellitus, hypothyroidism, mixed hyperlipidemia, 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 #. Acute periprosthetic fracture of the left femoral diaphysis due to mechanical fall: Will admit patient with IV opioids p.r.n. for analgesia. Consulted Orthopedic surgery, appreciate assistance. #. Preoperative risk: RCRI score 2. Obtaining BNP #. AFib with slow ventricular rate, ?new onset: Obtaining TSH and transthoracic echocardiogram. Hold b-tuyet #. Leukocytosis, reactive #. Hypertension/CAD/mixed hyperlipidemia: Hold GREGG-inhibitor prior to surgery to prevent postop hypotension. On statin but not on antiplatelet agent #. Insulin-dependent diabetes mellitus: Initiating Accu-Cheks with sliding scale insulin every 6 hours #. Hypothyroidism: On Synthroid DVT prophylaxis: Mechanical DNR/DNI Admit as inpatient and will require two night minimum hospital stay for (as above), which is not possible in a lesser acute setting. Quality Stroke Does the patient have a stroke diagnosis?: No VTE Prior VTE?: No VTE Risk Level:: Medical - moderate - high VTE Device Contraindication: N/A - Device Ordered VTE Drug Contraindication: Treatment Not Indicated
[2024-10-31 22:42] LABS: Glucose, Whole Blood 133 mg/dL (60-115)
--- NOTE | 2024-10-31 23:39 | PC.NURSE ---
Patient requested and given applesauce, green jello, and diet lee talia to snack on. Aware of NPO after midnight orders. Patient was given diet lee talia earlier as well by DAYNA Laguna. Pt denies pain at this time, very thankful for care. Hard of hearing, but pleasant and cooperative. Care ongoing by this RN.
[2024-11-01] VITALS (11 sets, daily range): BP systolic 123–151; BP diastolic 51–85; PULSE 58–65; RESP 14–20; TEMP 36.2–37; O2SAT 95–100
--- NOTE | 2024-11-01 00:09 | PC.NURSE ---
Family left bedside to go home and sleep for the night. Renato (son) & Ginna ([id number]) provided contact information requesting updates as needed. Awaiting admitting room assignment [place] [facility]. # .
[2024-11-01] MEDS: 0.9 % Sodium Chloride Flush 3 ML SYRINGE IVFLUSH ×2 (00:17→16:32)
--- NOTE | 2024-11-01 03:49 | PC.NURSE ---
this rn assumed care of pt, pt resting in stretcher, no acute distress noted.
[2024-11-01 04:17] LABS: Glucose, Whole Blood 232 mg/dL (60-115)
--- NOTE | 2024-11-01 04:18 | PC.NURSE ---
pt noted to de sat to 86% on room air, pt placed on 2L nasal cannula, provider aware.
[2024-11-01 05:18] LABS: MANUAL DIFF FLAG NO
[2024-11-01 05:19] LABS: Basophils Percent Auto 0.3 % (0-2); Eosinophils Percent Auto 0.1 % (0-4); Hematocrit 34.2 % (37.0-47.0); Hemoglobin 10.7 g/dl (12.0-16.0); Imm Gran Abs Auto 0.05 X10*3/uL (0.00-0.03); Imm Gran Pct Auto 0.5 % (0.0-0.4); Lymphocytes Absolute Auto 1.4 X10*3/uL (1.2-4.9); Mean Corpuscular HGB Conc 31.3 g/dl (31.0-35.0); Mean Corpuscular Hemoglobin 24.3 pg (27.0-33.0); Mean Corpuscular Volume 77.6 fL (80.0-98.0); Mean Platelet Volume 10.5 fL (9.4-12.3); Monocytes Absolute Auto 0.7 X10*3/uL (0.1-1.2); Monocytes Percent Auto 6.3 % (2-11); Neutrophils Absolute Auto 8.7 x10*3/uL (2.0-8.3); Neutrophils Percent Auto 79.8 % (45-73); Platelet Count 259 X10*3/uL (160-400); Red Blood Count 4.41 X10*6/uL (4.20-5.50); Red Cell Distribution Width 18.2 % (11.0-16.0); White Blood Count 10.8 X10*3/uL (4.8-10.8)
[2024-11-01 05:42] LABS: B Type Natriuretic Peptide 75 pg/mL (<100)
[2024-11-01 05:44] LABS: Anion Gap 14 (12-20); Blood Urea Nitrogen 29 mg/dL (9-16); Calcium 8.6 mg/dL (8.4-10.2); Carbon Dioxide 22 mmol/L (22-29); Chloride 100 mmol/L (96-108); Creatinine Clr Calc Pharmacy 43.2; Estimated Glomerular Filt Rate 50; Glucose Random 258 mg/dL (60-115); Potassium 4.3 mmol/L (3.3-5.1); Sodium 132 mmol/L (135-145)
[2024-11-01 06:00] LABS: Thyroid Stimulating Hormone 2.16 uIU/mL (0.32-4.0)
--- NOTE | 2024-11-01 07:44 | P.CONOP_ITS ---
History of Present Illness HPI Consult date: 11/01/24 <Giuliano Canela PA-C - Last Filed: 11/01/24 09:30> Chief complaint: fall <Giuliano Canela PA-C - Last Filed: 11/01/24 09:30> Narrative: 89-year-old female with pertinent history of CAD, left bundle branch block, insulin-dependent diabetes mellitus, hypothyroidism, mixed hyperlipidemia, status post bilateral hip replacement >20 years ago, hypertension who was admitted to the medical service after a fall resulting in a left periprosthetic femur fracture. Patient states she was in the kitchen as she started to move sideways towards her table when she stumbled and fell on her left side. She was sitting up against a wall as per family member, unable to get up and ambulate. Orthopedic surgery was consulted to discuss surgical planning. <Giuliano Canela PA-C - Last Filed: 11/01/24 09:30> Review of Systems 2 Review of Systems: Yes all other systems are reviewed and are negative < Giuliano Canela PA-C - Last Filed: 11/01/24 09:30> [facility] Past Medical History Medical History: Medical History Patellofemoral arthritis of right knee Diabetes mellitus Left bundle branch block CAD (coronary artery disease) <Giuliano Canela PA-C - Last Filed: 11/01/24 09:30> Surgical History Surgical History: Surgical History Hx of mastectomy Hx of mastectomy <Giuliano Caenla PA-C - Last Filed: 11/01/24 09:30> Social History Social History: Social History Household Members: None Housing: House Do you presently have visiting nurse or other home services: No Patient Tobacco Use Status: Never used Tobacco Advance Directives Date on File: 11/01/24 service: No Current occupational status: retired 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/ <Giuliano Canela PA-C - Last Filed: 11/01/24 09:30> Meds Allergies/Adverse reactions: Allergies Allergy/AdvReac Type Severity Reaction Status Date / Time adhesive tape [Adhesive Tape] Allergy Unknown SKIN Verified 10/31/24 18:09 REDNESS <Giuliano Canela PA-C - Last Filed: 11/01/24 09:30> Active Medications: Current Medications Acetaminophen (Acetaminophen 325 Mg Tablet) 650 mg PO Q6H PRN PRN Reason: Pain, Mild (Pain Scale 1-3), fever or headache Calcium Carbonate (Calcium Carbonate 750 Mg Tab.Chew) 750 mg PO Q4H PRN PRN Reason: Heartburn Glucose (Glucose Gel 15 Gm Gel..Gram.) 15 gm PO Q15M PRN; Protocol PRN Reason: per Hypoglycemia Standing Ord. Hydrochlorothiazide (Hydrochlorothiazide 12.5 Mg Tablet) 12.5 mg PO DAILY [facility]; Protocol Dextrose (D10) 250 mls @ 750 mls/hr IV Q15M PRN; Protocol PRN Reason: per Hypoglycemia Standing Ord. Cefazolin Sodium/Dextrose (Ancef) 2 gm in 50 mls @ 100 mls/hr IV PREOP ONE Stop: 11/02/24 07:47 Insulin Human Lispro (Insulin Lispro 100 Unit/Ml 3 Ml Vial) 0 unit SUBCUT Q6H [facility]; Protocol Last Admin: 11/01/24 04:18 Dose: Not Given Levothyroxine Sodium (Levothyroxine Sodium 112 Mcg Tablet) 112 mcg PO DAILY@0600 [facility] Last Admin: 11/01/24 06:28 Dose: Not Given Magnesium Hydroxide (Milk Of Magnesia 30 Ml Oral.Susp) 30 ml PO DAILY PRN PRN Reason: Constipation Melatonin (Melatonin 3 Mg Tablet) 6 mg PO BEDTIME PRN PRN Reason: Insomnia Morphine Sulfate (Morphine Sulfate 4 Mg/Ml Cartridge) 4 mg IVPUSH Q4H PRN; Protocol PRN Reason: Pain, Severe (Pain Scale 7-10) Ondansetron HCl (Ondansetron Hcl 4 Mg/2 Ml Vial) 4 mg IVPUSH Q8H PRN PRN Reason: Nausea and Vomiting Pravastatin Sodium (Pravastatin Sodium 80 Mg Tablet) 80 mg PO DAILY [facility] Sodium Chloride (0.9 % Sodium Chloride Flush 3 Ml Syringe) 3 ml IVFLUSH QSHIFT [facility] Last Admin: 11/01/24 00:17 Dose: 3 ml <SHAYNE Lorenzo Last Filed: 11/01/24 09:30> Home medications: Home Medications ?Medication ?Instructions ?Recorded ?Confirmed ?Last Taken ?Type insulin aspart U-100 100 unit/mL See Protocol subcut TIDAC 04/03/21 10/31/24 10/31/24 History (3 mL) subcutaneous pen insulin glargine 100 unit/mL (3 24 unit subcut DAILY 04/03/21 10/31/24 10/31/24 History mL) subcutaneous pen metoprolol succinate 25 mg 25 mg PO DAILY 02/12/23 10/31/24 10/31/24 History tablet,extended release 24 hr pravastatin 80 mg tablet 80 mg PO DAILY 02/12/23 10/31/24 10/31/24 History acetaminophen 325 mg tablet 325 mg PO DAILY PRN Pain/Fever 10/31/24 10/31/24 Unknown History (Tylenol) levothyroxine 112 mcg tablet 112 mcg PO DAILY@0600 10/31/24 10/31/24 10/31/24 History lisinopril 10 1 tab PO DAILY 10/31/24 10/31/24 10/31/24 History mg-hydrochlorothiazide 12.5 mg tablet <Giuliano Canela PA-C - Last Filed: 11/01/24 09:30> Physical Exam 2 Vital Signs: Vital Signs: Last Vital Signs Temp 97.8 F 11/01/24 06:23 Pulse 65 11/01/24 06:23 Resp 20 11/01/24 06:23 BP 136/70 11/01/24 06:23 Pulse Ox 98 11/01/24 06:23 O2 Del Method Nasal Cannula 11/01/24 06:23 O2 Flow Rate 2 11/01/24 06:23 BMI result Body Mass Index 31.9 <Giuliano Canela PA-C - Last Filed: 11/01/24 09:30> Const: General: cooperative, healthy appearing, comfortable, no acute distress, well developed and alert <SHAYNE Lorenzo Last Filed: 11/01/24 09:30> Orientation/consciousness: patient oriented x3 <SHAYNE Lorenzo Last Filed: 11/01/24 09:30> HEENT: Head: Yes normal to inspection, Yes normocephalic and Yes atraumatic <Giuliano Canela SHAYNE - Last Filed: 11/01/24 09:30> Eyes: General: appearance normal, both eyes and all related structures < Giuliano CanelaDAYNAValentino - Last Filed: 11/01/24 09:30> Neck: Neck: Yes normal visual inspection and Yes no lymphadenopathy <Tarah CovingtonDAYNA villanuevaValentino - Last Filed: 11/01/24 09:30> Resp: Effort & Inspection: normal respiratory effort and able to speak in complete sentences <Giuliano Canela SHAYNE - Last Filed: 11/01/24 09:30> Cardio: Rate: regular rate <Giuliano CanelaDAYNAVlaentino - Last Filed: 11/01/24 09:30> Peripheral pulses: Peripheral pulses 2+ throughout <Giuliano Canela SHAYNE - Last Filed: 11/01/24 09:30> GI: Inspection: Yes normal to inspection <Giuliano CovingtonDAYNA villanuevaValentino - Last Filed: 11/01/24 09:30> Palpation (GI): Soft to palpation <Giuliano Canela SHAYNE - Last Filed: 11/01/24 09:30> Skin: General skin exam: no rashes or lesions noted <Giuliano Covingtonrich SHAYNE - Last Filed: 11/01/24 09:30> Neuro: General: patient oriented x3 <Vina DAYNA villanuevaValentino - Last Filed: 11/01/24 09:30> Extrem: Other: Left hip normal to inspection. No open wounds. She has pain over the fracture site. She is able to dorsi and plantar flex the left foot and ankle. NVI. <Giuliano CovingtonDAYNA villanuevaValentino - Last Filed: 11/01/24 09:30> Psych: Appearance: grossly normal <Vina DAYNA villanuevaValentino - Last Filed: 11/01/24 09:30> Mental Status: mental status grossly normal <CurtAbdirahmanJen DAYNA villanuevaValentino - Last Filed: 11/01/24 09:30> Results Labs Result Diagrams: 11/02/24 06:01 11/02/24 06:01 <Giuliano Canela PA-C - Last Filed: 11/01/24 09:30> Labs: Abnormal lab results 10/31/24 10/31/24 11/01/24 Range/Units 21:27 22:37 04:12 WBC 17.7 H (4.8-10.8) X10*3/uL Hgb 11.6 L (12.0-16.0) g/dl Hct 35.9 L (37.0-47.0) % MCV 76.5 L (80.0-98.0) fL MCH 24.7 L (27.0-33.0) pg RDW 18.4 H (11.0-16.0) % Immature Gran % (Auto) 0.5 H (0.0-0.4) % Neut % (Auto) 91.0 H (45-73) % Lymph % (Auto) 4.4 L (20-40) % Lymph # (Auto) 0.8 L (1.2-4.9) X10*3/uL Abs Immat Gran (auto) 0.08 H (0.00-0.03) X10*3/uL Absolute Neuts (auto) 16.1 H (2.0-8.3) x10*3/uL Sodium (135-145) mmol/L Anion Gap 11 L (12-20) BUN 26 H (9-16) mg/dL POC Glucose 133 H 232 H (60-115) mg/dL Random Glucose (60-115) mg/dL AST 34 H (5-31) U/L 11/01/24 Range/Units 05:09 WBC (4.8-10.8) X10*3/uL Hgb 10.7 L (12.0-16.0) g/dl Hct 34.2 L (37.0-47.0) % MCV 77.6 L (80.0-98.0) fL MCH 24.3 L (27.0-33.0) pg RDW 18.2 H (11.0-16.0) % Immature Gran % (Auto) 0.5 H (0.0-0.4) % Neut % (Auto) 79.8 H (45-73) % Lymph % (Auto) 13.0 L (20-40) % Lymph # (Auto) (1.2-4.9) X10*3/uL Abs Immat Gran (auto) 0.05 H (0.00-0.03) X10*3/uL Absolute Neuts (auto) 8.7 H (2.0-8.3) x10*3/uL Sodium 132 L (135-145) mmol/L Anion Gap (12-20) BUN 29 H (9-16) mg/dL POC Glucose (60-115) mg/dL Random Glucose 258 H (60-115) mg/dL AST (5-31) U/L H & H 10/31/24 11/01/24 Range/Units 21:27 05:09 Hgb 11.6 L 10.7 L (12.0-16.0) g/dl Hct 35.9 L 34.2 L (37.0-47.0) % Coagulation 10/31/24 Range/Units 21:27 INR 1.0 (0.9-1.1) All other labs normal. <Giuliano Canela PA-C - Last Filed: 11/01/24 09:30> Diagnostic results Hip x-ray: image reviewed (Acute periprosthetic fracture of the left femoral diaphysis, at the level of the distal aspect of the femoral prosthetic component, with displacement, angulation or rotation as detailed above. ) <SHAYNE Martinez Last Filed: 11/01/24 09:30> Assessment and Plan (1) Closed left femoral fracture: Qualifiers: Encounter type: initial encounter Fracture alignment: d isplaced <SHAYNE Lorenzo Last Filed: 11/01/24 09:30> Status: Acute <SHAYNE Lorenzo Last Filed: 11/01/24 09:30> I discussed the case with Dr Baumann and explained the extent of the injury to the patient and options available which include surgical intervention. I explained the procedure in detail along with the length of recovery and rehab course. I explained the risk, benefits and alternatives. Risk including, but not limited to infection, blood clots, bleeding, non union or malunion and nerve/tissue damage to surrounding areas alogn with decline in overall health. I answered all their questions and with their understanding they have consented to move forward with Operative Fixation of the left femur . The patient will be T&S, med clearance obtained and NPO after midnight. <Giuliano Canela PA-C - Last Filed: 11/01/24 09:30> I discussed the case with the patient and explained the extent of the injury to the patient and options available which include surgical intervention. I recommend ORIF left femur. The prosthesis appears stable. I explained the procedure in detail along with the length of recovery and rehab course. I explained the risk, benefits and alternatives. Risk including, but not limited to infection, blood clots, bleeding, non union or malunion and nerve/tissue damage to surrounding areas along with decline in overall health. I answered all their questions and with their understanding they have consented to move forward with Operative Fixation of the left femur . The patient will be T&S, med clearance obtained and NPO after midnight. <Jaylen Baumann MD - Last Filed: 11/02/24 13:03> Procedures Date of Service Date of Service: 11/01/24 <Giuliano Canela PA-C - Last Filed: 11/01/24 09:30> 11/02/24 <Jaylen Baumann MD - Last Filed: 11/02/24 13:03>
[2024-11-01] MEDS: Metoprolol Succinate ER 25 MG TAB.ER.24H PO (09:31)
[2024-11-01] MEDS: Pravastatin Sodium 80 MG TABLET PO (09:32)
--- NOTE | 2024-11-01 09:37 | PC.NURSE ---
Addendum entered by Lucia Mcduffie RN 11/01/24 09:38: patient is in normal sinus rhythm, VSS resp even and unlabored. on 2l NC due to desat on prior shift Original Note: patient resting quietly in bed, states she has 0/10 pain. patient medicated per JAN, plan for OR tomorrow. kitchen called for breakfast order. patient is alert and oriented ANDREAFSKI. family at bedside this morning given update. takes meds whole with water
--- NOTE | 2024-11-01 09:46 | P.PNIM_ITS ---
Subjective Subjective Date of Service: 11/01/24 Interval History: pain controlled when still Physical Exam 2 Vital Signs: Vital Signs: Last Vital Signs Temp 98.1 F 11/01/24 07:49 Pulse 61 11/01/24 07:49 Resp 20 11/01/24 07:49 BP 137/54 L 11/01/24 07:49 Pulse Ox 100 11/01/24 07:49 O2 Del Method Nasal Cannula 11/01/24 07:49 O2 Flow Rate 2 11/01/24 07:49 BMI result Body Mass Index 31.9 General: AO X 3, no acute distress, severely hard of hearing Resp: CTA bilateral, no accessory muscles used CVS: S1,S2,irregular GI: soft, non tender, non distended Neuro: motor grossly intact, alert Psych: appropriate affect, appropriate insight Objective Data Active Medications Acetaminophen (Acetaminophen 325 Mg Tablet) 650 mg PO Q6H PRN PRN Reason: Pain, Mild (Pain Scale 1-3), fever or headache Calcium Carbonate (Calcium Carbonate 750 Mg Tab.Chew) 750 mg PO Q4H PRN PRN Reason: Heartburn Glucose (Glucose Gel 15 Gm Gel..Gram.) 15 gm PO Q15M PRN; Protocol PRN Reason: per Hypoglycemia Standing Ord. Dextrose (D10) 250 mls @ 750 mls/hr IV Q15M PRN; Protocol PRN Reason: per Hypoglycemia Standing Ord. Cefazolin Sodium/Dextrose (Ancef) 2 gm in 50 mls @ 100 mls/hr IV PREOP ONE Stop: 11/02/24 07:47 Insulin Human Lispro (Insulin Lispro 100 Unit/Ml 3 Ml Vial) 0 unit SUBCUT Q6H [facility]; Protocol Last Admin: 11/01/24 04:18 Dose: Not Given Documented By: KRISTIN Non-Admin Reason: NPO Levothyroxine Sodium (Levothyroxine Sodium 112 Mcg Tablet) 112 mcg PO DAILY@0600 [facility] Magnesium Hydroxide (Milk Of Magnesia 30 Ml Oral.Susp) 30 ml PO DAILY PRN PRN Reason: Constipation Melatonin (Melatonin 3 Mg Tablet) 6 mg PO BEDTIME PRN PRN Reason: Insomnia Metoprolol Succinate (Metoprolol Succinate Er 25 Mg Tab.Er.24h) 25 mg PO DAILY [facility]; Protocol Last Admin: 11/01/24 09:31 Dose: 25 mg Documented By: HO.PROVENC Morphine Sulfate (Morphine Sulfate 4 Mg/Ml Cartridge) 4 mg IVPUSH Q4H PRN; Protocol PRN Reason: Pain, Severe (Pain Scale 7-10) Ondansetron HCl (Ondansetron Hcl 4 Mg/2 Ml Vial) 4 mg IVPUSH Q8H PRN PRN Reason: Nausea and Vomiting Pravastatin Sodium (Pravastatin Sodium 80 Mg Tablet) 80 mg PO DAILY [facility] Last Admin: 11/01/24 09:32 Dose: 80 mg Documented By: MARIANGEL Sodium Chloride (0.9 % Sodium Chloride Flush 3 Ml Syringe) 3 ml IVFLUSH QSHIFT [facility] Last Admin: 11/01/24 08:20 Dose: Not Given Documented By: MARIANGEL Non-Admin Reason: See Note Labs 11/01/24 05:09 11/01/24 05:09 Labs: Laboratory Results - last 24 hr 10/31/24 10/31/24 10/31/24 21:27 22:37 22:42 MCV 76.5 L MCH 24.7 L MCHC 32.3 RDW 18.4 H Plt Count 298 MPV 9.9 Immature Gran % (Auto) 0.5 H Neut % (Auto) 91.0 H Lymph % (Auto) 4.4 L Shelby % (Auto) 3.7 Eos % (Auto) 0.1 Baso % (Auto) 0.3 Lymph # (Auto) 0.8 L Shelby # (Auto) 0.7 Eos # (Auto) 0.0 Baso # (Auto) 0.1 Abs Immat Gran (auto) 0.08 H Absolute Neuts (auto) 16.1 H Absolute Nucleated RBC 0.000 Nucleated RBC % (auto) 0.0 PT 11.6 INR 1.0 Anion Gap 11 L Estim Creat Clear Calc 45.4 Estimated GFR 53 POC Glucose 133 H Random Glucose 112 Calcium 9.0 Magnesium 2.0 Total Bilirubin 0.4 AST 34 H ALT 14 Alkaline Phosphatase 65 B-Natriuretic Peptide Total Protein 7.2 Albumin 3.9 TSH Blood Type A Positive Antibody Screen NEGATIVE 11/01/24 11/01/24 04:12 05:09 MCV 77.6 L MCH 24.3 L MCHC 31.3 RDW 18.2 H Plt Count 259 MPV 10.5 Immature Gran % (Auto) 0.5 H Neut % (Auto) 79.8 H Lymph % (Auto) 13.0 L Shelby % (Auto) 6.3 Eos % (Auto) 0.1 Baso % (Auto) 0.3 Lymph # (Auto) 1.4 Shelby # (Auto) 0.7 Eos # (Auto) 0.0 Baso # (Auto) 0.0 Abs Immat Gran (auto) 0.05 H Absolute Neuts (auto) 8.7 H Absolute Nucleated RBC 0.000 Nucleated RBC % (auto) 0.0 PT INR Anion Gap 14 Estim Creat Clear Calc 43.2 Estimated GFR 50 POC Glucose 232 H Random Glucose 258 H Calcium 8.6 Magnesium Total Bilirubin AST ALT Alkaline Phosphatase B-Natriuretic Peptide 75 Total Protein Albumin TSH 2.16 Blood Type Antibody Screen Assessment and Plan (1) Cardiac arrhythmia: Status: Acute Plan 89F PMH CAD, LBBB, DM, hypothryoid, hld, htn, presented with fall complicated by left periprosthetic hip fracture mechanical fall complicated by left periprosthetic hip fracture pain control, plan for OR 11/02/24 EKG reviewed - no evidence of afib, appears to be sinus bradyarrythmia, bradycardia mild, will restart toprol, no indication for echo CAD statin not on antiplatelet DM insulin HTN holding lisinpirl, hctz perioperatively hypothyroid synthroid dvt prophylaxis -mechanical given pending surgery DNR/SNI reason for continued hospitalization:surgery pending Quality Stroke Does the patient have a stroke diagnosis?: No VTE Prior VTE?: No VTE Risk Level:: Medical - moderate - high VTE Device Contraindication: N/A - Device Ordered VTE Drug Contraindication: Treatment Not Indicated
[2024-11-01 10:37] LABS: Glucose, Whole Blood 336 mg/dL (60-115)
[2024-11-01 11:23] LABS: Glucose, Whole Blood 341 mg/dL (60-115)
[2024-11-01] MEDS: Morphine Sulfate 4 MG/ML CARTRIDGE IVPUSH ×3 (11:38→21:52)
[2024-11-01] MEDS: Insulin Lispro 100 UNIT/ML 3 ML VIAL SUBCUT ×3 (11:38→21:52)
[2024-11-01] MEDS: ondansetron HCL 4 MG/2 ML VIAL IVPUSH ×2 (11:38→21:52)
--- NOTE | 2024-11-01 11:56 | PC.NURSE ---
patient repositioned in bed, medicated with prn morphine for 7/10 hip pain. patient sitting up to eat late breakfast. medicated per JAN. patient linens and pads clean and dry, has purewick in place. patient IV in left AC noted to be kinked and no longer patent. new IVplaced in left fore arm #22
--- NOTE | 2024-11-01 13:15 | PC.NURSE ---
patient ate late breakfast, lunch tray came with grilled cheese patient requested to leave it on side table incase she wants to reheat and eat later when shes hungry again. patient states she no longer has pain after pain medication. patient appears to be resting comfortable, resp even and unlabored.
--- NOTE | 2024-11-01 16:11 | MHC.CM.PN ---
IMM 11/01/24, Pt. lives alone, is independent, no home health services. For DME, she has cane, walker, diabetic supplies, grab bar in bathroom, hearing aids. She is hard of hearing and low vision. HCP is her son Felipe, copy requested. PCP is confirmed, Janes Foster. DCP: STR. CM to follow and assist with DC plan.
[2024-11-01 17:08] LABS: Glucose, Whole Blood 404 mg/dL (60-115)
[2024-11-01 20:35] LABS: Glucose, Whole Blood 322 mg/dL (60-115)
[2024-11-02] VITALS (16 sets, daily range): BP systolic 125–155; BP diastolic 44–78; PULSE 60–77; RESP 12–19; TEMP 36.2–37.5; O2SAT 94–100
[2024-11-02] MEDS: Morphine Sulfate 4 MG/ML CARTRIDGE IVPUSH (04:09)
[2024-11-02] MEDS: ondansetron HCL 4 MG/2 ML VIAL IVPUSH (04:10)
[2024-11-02 04:24] LABS: Glucose, Whole Blood 253 mg/dL (60-115)
[2024-11-02] MEDS: Insulin Lispro 100 UNIT/ML 3 ML VIAL SUBCUT ×3 (04:56→22:03)
[2024-11-02] MEDS: 0.9 % Sodium Chloride Flush 3 ML SYRINGE IVFLUSH ×2 (05:18→22:07)
[2024-11-02 06:47] LABS: Hematocrit 33.8 % (37.0-47.0); Hemoglobin 10.6 g/dl (12.0-16.0); Mean Corpuscular HGB Conc 31.4 g/dl (31.0-35.0); Mean Corpuscular Hemoglobin 24.4 pg (27.0-33.0); Mean Corpuscular Volume 77.7 fL (80.0-98.0); Platelet Count 274 X10*3/uL (160-400); Red Blood Count 4.35 X10*6/uL (4.20-5.50); Red Cell Distribution Width 18.2 % (11.0-16.0); White Blood Count 13.3 X10*3/uL (4.8-10.8)
[2024-11-02 07:41] LABS: Anion Gap 17 (12-20); Blood Urea Nitrogen 38 mg/dL (9-16); Calcium 8.6 mg/dL (8.4-10.2); Carbon Dioxide 22 mmol/L (22-29); Chloride 99 mmol/L (96-108); Creatinine Clr Calc Pharmacy 26.6; Estimated Glomerular Filt Rate 29; Glucose Random 251 mg/dL (60-115); Potassium 4.5 mmol/L (3.3-5.1); Sodium 133 mmol/L (135-145)
--- NOTE | 2024-11-02 08:49 | HO.PM.IMPN ---
Subjective Subjective Date of Service: 11/02/24 Interval History: pain controlled when still Physical Exam Vital Signs: Vital Signs: Last Vital Signs Temp 98.4 F 11/02/24 07:31 Pulse 64 11/02/24 07:31 Resp 18 11/02/24 07:31 BP 128/61 11/02/24 07:31 Pulse Ox 98 11/02/24 07:31 O2 Del Method Nasal Cannula 11/02/24 07:31 O2 Flow Rate 2 11/02/24 07:31 BMI result Body Mass Index 31.9 General: AO X 3, no acute distress, severely hard of hearing Resp: CTA bilateral, no accessory muscles used CVS: S1,S2,irregular GI: soft, non tender, non distended Neuro: motor grossly intact, alert Psych: appropriate affect, appropriate insight Objective Data Active Medications Acetaminophen (Acetaminophen 325 Mg Tablet) 650 mg PO Q6H PRN PRN Reason: Pain, Mild (Pain Scale 1-3), fever or headache Calcium Carbonate (Calcium Carbonate 750 Mg Tab.Chew) 750 mg PO Q4H PRN PRN Reason: Heartburn Glucose (Glucose Gel 15 Gm Gel..Gram.) 15 gm PO Q15M PRN; Protocol PRN Reason: per Hypoglycemia Standing Ord. Dextrose (D10) 250 mls @ 750 mls/hr IV Q15M PRN; Protocol PRN Reason: per Hypoglycemia Standing Ord. Insulin Human Lispro (Insulin Lispro 100 Unit/Ml 3 Ml Vial) 0 unit SUBCUT Q6H [facility]; Protocol Last Admin: 11/02/24 04:56 Dose: 6 unit Documented By: EMILY Levothyroxine Sodium (Levothyroxine Sodium 112 Mcg Tablet) 112 mcg PO DAILY@0600 [facility] Last Admin: 11/02/24 05:22 Dose: Not Given Documented By: EMILY Non-Admin Reason: NPO Magnesium Hydroxide (Milk Of Magnesia 30 Ml Oral.Susp) 30 ml PO DAILY PRN PRN Reason: Constipation Melatonin (Melatonin 3 Mg Tablet) 6 mg PO BEDTIME PRN PRN Reason: Insomnia Metoprolol Succinate (Metoprolol Succinate Er 25 Mg Tab.Er.24h) 25 mg PO DAILY [facility]; Protocol Last Admin: 11/02/24 07:35 Dose: Not Given Documented By: NOREEN Non-Admin Reason: NPO Morphine Sulfate (Morphine Sulfate 4 Mg/Ml Cartridge) 4 mg IVPUSH Q4H PRN; Protocol PRN Reason: Pain, Severe (Pain Scale 7-10) Last Admin: 11/02/24 04:09 Dose: 4 mg Documented By: EMILY Ondansetron HCl (Ondansetron Hcl 4 Mg/2 Ml Vial) 4 mg IVPUSH Q8H PRN PRN Reason: Nausea and Vomiting Last Admin: 11/02/24 04:10 Dose: 4 mg Documented By: EMILY Comments: ok to give early per Dr. Brown Pravastatin Sodium (Pravastatin Sodium 80 Mg Tablet) 80 mg PO DAILY [facility] Last Admin: 11/02/24 07:35 Dose: Not Given Documented By: NOREEN Non-Admin Reason: NPO Sodium Chloride (0.9 % Sodium Chloride Flush 3 Ml Syringe) 3 ml IVFLUSH QSHIFT [facility] Last Admin: 11/02/24 05:18 Dose: 3 ml Documented By: EMILY Labs 11/02/24 06:01 11/02/24 06:01 Labs: Laboratory Results - last 24 hr 11/01/24 11/01/24 11/01/24 10:26 11:19 17:03 MCV MCH MCHC RDW Plt Count MPV Absolute Nucleated RBC Nucleated RBC % (auto) Anion Gap Estim Creat Clear Calc Estimated GFR POC Glucose 336 H 341 H 404 H* Random Glucose Calcium 11/01/24 11/02/24 11/02/24 19:49 04:19 06:01 MCV 77.7 L MCH 24.4 L MCHC 31.4 RDW 18.2 H Plt Count 274 MPV 11.0 Absolute Nucleated RBC 0.000 Nucleated RBC % (auto) 0.0 Anion Gap 17 Estim Creat Clear Calc 26.6 Estimated GFR 29 POC Glucose 322 H 253 H Random Glucose 251 H Calcium 8.6 Assessment and Plan (1) Cardiac arrhythmia: Status: Acute Plan 89F PMH CAD, LBBB, DM, hypothryoid, hld, htn, presented with fall complicated by left periprosthetic hip fracture mechanical fall complicated by left periprosthetic hip fracture pain control, plan for OR today, 11/02/24 EKG reviewed - no evidence of afib, appears to be sinus bradyarrythmia CAD statin not on antiplatelet DM insulin HTN holding lisinpirl, hctz perioperatively continue toprol hypothyroid synthroid dvt prophylaxis -mechanical given pending surgery DNR/DNI reason for continued hospitalization:surgery pending Quality Stroke Does the patient have a stroke diagnosis?: No VTE Prior VTE?: No VTE Risk Level:: Medical - moderate - high VTE Device Contraindication: N/A - Device Ordered VTE Drug Contraindication: Treatment Not Indicated
--- NOTE | 2024-11-02 10:25 | MHC.CM.PN ---
EMR REVIEWED, PT W/HIP FX, PLAN FOR REPAIR TODAY, CM ATTEMPTED TO MEET W/PT TO DISCUSS PREFERENCES HOWEVER PT SLEEPING SOUNDLY, CM WILL REVISIT AND ANTIC PT WILL WANT [facility] FOR RE[facility] SHE IS INDEP AT BASELINE, CM WILL CONT TO FOLLOW DC NEEDS.
[2024-11-02 10:53] LABS: Glucose, Whole Blood 268 mg/dL (60-115)
--- NOTE | 2024-11-02 13:03 | MHC.SHP ---
Pre-Procedural Eval Section A - 24 Hr Update-Section A only Date of Service: 11/02/24 The patient is an INPATIENT: Yes Changes since office visit: No Cold of Flu in the past 2 weeks, No New Medical Problems, No Changes in Medication and No Patient answered all questions The patient has been examined within 24 hours of the surgical procedure. The History & Physical has been completed within 30 days and I have reviewed it.: Yes Section B - Complete if H&P > 30 days Chief Complaint: fall Allergies: Allergies Allergy/AdvReac Type Severity Reaction Status Date / Time adhesive tape [Adhesive Tape] Allergy Unknown SKIN Verified 10/31/24 18:09 REDNESS Plan I have reviewed the history and physical and performed a pertinent physical examination on my patient. No changes have occurred unless specified. Time Spent With Patient Time: Total time managing care of this patient today ____ minutes.
--- NOTE | 2024-11-02 13:59 | HO.ANESPROP2 ---
[facility] Active Problems Active Problems: All Active Problems Closed left femoral fracture (Acute) Cardiac arrhythmia (Acute) Past Medical History Medical History Patellofemoral arthritis of right knee Diabetes mellitus Left bundle branch block CAD (coronary artery disease) Family History Family history of problems with anesthesia: No Surgical History Surgical History Hx of mastectomy Hx of mastectomy History of Problems with Anesthesia: No Social History Social History Household Members: None Housing: House Do you presently have visiting nurse or other home services: No Patient Tobacco Use Status: Never used Tobacco Advance Directives Date on File: 11/01/24 service: No Current occupational status: 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 Dextrose (D10) 250 mls @ 750 mls/hr IV Q15M PRN; Protocol PRN Reason: per Hypoglycemia Standing Ord. Insulin Human Lispro (Insulin Lispro 100 Unit/Ml 3 Ml Vial) 0 unit SUBCUT Q6H [facility]; Protocol Last Admin: 11/02/24 13:28 Dose: Not Given Levothyroxine Sodium (Levothyroxine Sodium 112 Mcg Tablet) 112 mcg PO DAILY@0600 [facility] Last Admin: 11/02/24 05:22 Dose: Not Given Magnesium Hydroxide (Milk Of Magnesia 30 Ml Oral.Susp) 30 ml PO DAILY PRN PRN Reason: Constipation Melatonin (Melatonin 3 Mg Tablet) 6 mg PO BEDTIME PRN PRN Reason: Insomnia Metoprolol Succinate (Metoprolol Succinate Er 25 Mg Tab.Er.24h) 25 mg PO DAILY [facility]; Protocol Last Admin: 11/02/24 07:35 Dose: Not Given Morphine Sulfate (Morphine Sulfate 4 Mg/Ml Cartridge) 4 mg IVPUSH Q4H PRN; Protocol PRN Reason: Pain, Severe (Pain Scale 7-10) Last Admin: 11/02/24 04:09 Dose: 4 mg Ondansetron HCl (Ondansetron Hcl 4 Mg/2 Ml Vial) 4 mg IVPUSH Q8H PRN PRN Reason: Nausea and Vomiting Last Admin: 11/02/24 04:10 Dose: 4 mg Pravastatin Sodium (Pravastatin Sodium 80 Mg Tablet) 80 mg PO DAILY [facility] Last Admin: 11/02/24 07:35 Dose: Not Given Sodium Chloride (0.9 % Sodium Chloride Flush 3 Ml Syringe) 3 ml IVFLUSH QSHIFT [facility] Last Admin: 11/02/24 12:25 Dose: Not Given Home Medications ?Medication ?Instructions ?Recorded ?Confirmed ?Last Taken ?Type insulin aspart U-100 100 unit/mL See Protocol subcut TIDAC 04/03/21 10/31/24 10/31/24 History (3 mL) subcutaneous pen insulin glargine 100 unit/mL (3 24 unit subcut DAILY 04/03/21 10/31/24 10/31/24 History mL) subcutaneous pen metoprolol succinate 25 mg 25 mg PO DAILY 02/12/23 10/31/24 10/31/24 History tablet,extended release 24 hr pravastatin 80 mg tablet 80 mg PO DAILY 02/12/23 10/31/24 10/31/24 History acetaminophen 325 mg tablet 325 mg PO DAILY PRN Pain/Fever 10/31/24 10/31/24 Unknown History (Tylenol) levothyroxine 112 mcg tablet 112 mcg PO DAILY@0600 10/31/24 10/31/24 10/31/24 History lisinopril 10 1 tab PO DAILY 10/31/24 10/31/24 10/31/24 History mg-hydrochlorothiazide 12.5 mg tablet Exam Height,Weight and Vital Signs: Height 5 ft 7 in Weight 92.5 kg Last Vital Signs Temp 98.7 F 11/02/24 13:46 Pulse 76 11/02/24 13:46 Resp 16 11/02/24 13:46 BP 143/59 H 11/02/24 13:46 Pulse Ox 98 11/02/24 13:37 O2 Del Method Nasal Cannula 11/02/24 13:37 O2 Flow Rate 2 11/02/24 13:37 Pertinent Lab Results Pertinent Lab Results: Laboratory Tests 10/31/24 10/31/24 10/31/24 21:27 22:37 22:42 WBC 17.7 H RBC 4.69 Hgb 11.6 L Hct 35.9 L MCV 76.5 L MCH 24.7 L MCHC 32.3 RDW 18.4 H Plt Count 298 MPV 9.9 Immature Gran % (Auto) 0.5 H Neut % (Auto) 91.0 H Lymph % (Auto) 4.4 L Geary % (Auto) 3.7 Eos % (Auto) 0.1 Baso % (Auto) 0.3 Lymph # (Auto) 0.8 L Geary # (Auto) 0.7 Eos # (Auto) 0.0 Baso # (Auto) 0.1 Abs Immat Gran (auto) 0.08 H Absolute Neuts (auto) 16.1 H Absolute Nucleated RBC 0.000 Nucleated RBC % (auto) 0.0 PT 11.6 INR 1.0 Sodium 135 Potassium 4.0 Chloride 103 Carbon Dioxide 25 Anion Gap 11 L BUN 26 H Creatinine 0.98 Estim Creat Clear Calc 45.4 Estimated GFR 53 POC Glucose 133 H Random Glucose 112 Calcium 9.0 Magnesium 2.0 Total Bilirubin 0.4 AST 34 H ALT 14 Alkaline Phosphatase 65 B-Natriuretic Peptide Total Protein 7.2 Albumin 3.9 TSH Blood Type A Positive Antibody Screen NEGATIVE Crossmatch See Detail 11/01/24 11/01/24 11/01/24 04:12 05:09 10:26 WBC 10.8 RBC 4.41 Hgb 10.7 L Hct 34.2 L MCV 77.6 L MCH 24.3 L MCHC 31.3 RDW 18.2 H Plt Count 259 MPV 10.5 Immature Gran % (Auto) 0.5 H Neut % (Auto) 79.8 H Lymph % (Auto) 13.0 L Geary % (Auto) 6.3 Eos % (Auto) 0.1 Baso % (Auto) 0.3 Lymph # (Auto) 1.4 Geary # (Auto) 0.7 Eos # (Auto) 0.0 Baso # (Auto) 0.0 Abs Immat Gran (auto) 0.05 H Absolute Neuts (auto) 8.7 H Absolute Nucleated RBC 0.000 Nucleated RBC % (auto) 0.0 PT INR Sodium 132 L Potassium 4.3 Chloride 100 Carbon Dioxide 22 Anion Gap 14 BUN 29 H Creatinine 1.03 Estim Creat Clear Calc 43.2 Estimated GFR 50 POC Glucose 232 H 336 H Random Glucose 258 H Calcium 8.6 Magnesium Total Bilirubin AST ALT Alkaline Phosphatase B-Natriuretic Peptide 75 Total Protein Albumin TSH 2.16 Blood Type Antibody Screen Crossmatch 11/01/24 11/01/24 11/01/24 11:19 17:03 19:49 WBC RBC Hgb Hct MCV MCH MCHC RDW Plt Count MPV Immature Gran % (Auto) Neut % (Auto) Lymph % (Auto) Geary % (Auto) Eos % (Auto) Baso % (Auto) Lymph # (Auto) Geary # (Auto) Eos # (Auto) Baso # (Auto) Abs Immat Gran (auto) Absolute Neuts (auto) Absolute Nucleated RBC Nucleated RBC % (auto) PT INR Sodium Potassium Chloride Carbon Dioxide Anion Gap BUN Creatinine Estim Creat Clear Calc Estimated GFR POC Glucose 341 H 404 H* 322 H Random Glucose Calcium Magnesium Total Bilirubin AST ALT Alkaline Phosphatase B-Natriuretic Peptide Total Protein Albumin TSH Blood Type Antibody Screen Crossmatch 11/02/24 11/02/24 11/02/24 04:19 06:01 10:47 WBC 13.3 H RBC 4.35 Hgb 10.6 L Hct 33.8 L MCV 77.7 L MCH 24.4 L MCHC 31.4 RDW 18.2 H Plt Count 274 MPV 11.0 Immature Gran % (Auto) Neut % (Auto) Lymph % (Auto) Geary % (Auto) Eos % (Auto) Baso % (Auto) Lymph # (Auto) Geary # (Auto) Eos # (Auto) Baso # (Auto) Abs Immat Gran (auto) Absolute Neuts (auto) Absolute Nucleated RBC 0.000 Nucleated RBC % (auto) 0.0 PT INR Sodium 133 L Potassium 4.5 Chloride 99 Carbon Dioxide 22 Anion Gap 17 BUN 38 H Creatinine 1.67 H Estim Creat Clear Calc 26.6 Estimated GFR 29 POC Glucose 253 H 268 H Random Glucose 251 H Calcium 8.6 Magnesium Total Bilirubin AST ALT Alkaline Phosphatase B-Natriuretic Peptide Total Protein Albumin TSH Blood Type Antibody Screen Crossmatch Airway Mallampati Class: II TM Dist: >3cm Neck ROM: Full Heart: rrr Lungs: cta Assessment and Plan Assessment Anesthesia Assessment: Anesthesia Plan Discussed and Chart Reviewed Final Anesthetic Review Family History of Problems with Anesthesia: No History of Problems with Anesthesia: No NPO: Yes ASA Class: III Final Preanesthetic Review: No Changes in Pt Med Stat, Meds/Allgs Chart Reviewed and Consent Obtained/Reviewed Patient Risk: Intermediate Procedure Risk: Intermediate Anesthetic Plan Anesthetic Plan: GA Disposition: Standard PACU
[2024-11-02 14:11] LABS: Glucose, Whole Blood 341 mg/dL (60-115)
--- NOTE | 2024-11-02 14:20 | PC.NURSE ---
lung sounds pre transfusion clear. slightly dim bases. same lung sounds at 15 minute check
--- NOTE | 2024-11-02 17:17 | P.BOP_ITS ---
Brief Operative Note Date of Service: 11/02/24 Pre-op diagnosis: LEFT PERIPROSTHETIC FEMUR FRACTURE Post-op diagnosis: same Procedure: ORIF LEFT PERIPROSTHETIC FEMUR FRACURE Implants: [place] . Pangea periprosthetic 358 mm plate Hung-Tarik cerclage x 4 Surgeon: Jaylen Baumann MD Anesthesia: GETA and local Was an [employer] Worker used for this Procedure?: Yes [employer] Worker: Deepa Fraga Estimated blood loss (mL): 300 IV fluids (mL): 1,100 Pathology: none sent Condition: stable Disposition: PACU
[2024-11-02 18:00] LABS: Glucose, Whole Blood 265 mg/dL (60-115)
[2024-11-02] MEDS: Acetaminophen 1,000 MG/100 ML PIGGYBACK 400 MG IV (18:05)
--- NOTE | 2024-11-02 18:22 | PC.NURSE ---
confirmed telepack transmitting prior to transport.
[2024-11-02 21:46] LABS: Glucose, Whole Blood 292 mg/dL (60-115)
[2024-11-02] MEDS: Celecoxib 200 MG CAPSULE PO (22:03)
[2024-11-02] MEDS: Enoxaparin Sodium 30 MG/0.3 ML SYRINGE SUBCUT (22:20)
[2024-11-03] VITALS (8 sets, daily range): BP systolic 122–138; BP diastolic 58–66; PULSE 62–82; RESP 18; TEMP 36.4–36.7; O2SAT 92–100
[2024-11-03] MEDS: Lactated Ringers 1,000 ML 100 ML IVCONT ×3 (00:39→21:20)
[2024-11-03] MEDS: 0.9 % Sodium Chloride Flush 3 ML SYRINGE IVFLUSH ×2 (00:43→07:54)
[2024-11-03 03:52] LABS: Glucose, Whole Blood 346 mg/dL (60-115)
[2024-11-03] MEDS: Insulin Lispro 100 UNIT/ML 3 ML VIAL SUBCUT ×4 (03:56→21:20)
[2024-11-03] MEDS: Milk of Magnesia 30 ML ORAL.SUSP PO ×2 (03:59→21:31)
[2024-11-03] MEDS: Levothyroxine Sodium 112 MCG TABLET PO (05:15)
[2024-11-03 06:30] LABS: Anion Gap 18 (12-20); Blood Urea Nitrogen 42 mg/dL (9-16); Carbon Dioxide 20 mmol/L (22-29); Chloride 99 mmol/L (96-108); Creatinine Clr Calc Pharmacy 28.9; Estimated Glomerular Filt Rate 32; Glucose Random 351 mg/dL (60-115); Potassium 4.8 mmol/L (3.3-5.1); Sodium 132 mmol/L (135-145)
[2024-11-03 07:01] LABS: Hematocrit 28.6 % (37.0-47.0); Hemoglobin 9.6 g/dl (12.0-16.0); Mean Corpuscular HGB Conc 33.6 g/dl (31.0-35.0); Mean Corpuscular Hemoglobin 26.2 pg (27.0-33.0); Mean Corpuscular Volume 78.1 fL (80.0-98.0); Platelet Count 220 X10*3/uL (160-400); Red Blood Count 3.66 X10*6/uL (4.20-5.50); Red Cell Distribution Width 17.5 % (11.0-16.0); White Blood Count 11.3 X10*3/uL (4.8-10.8)
[2024-11-03] MEDS: Pravastatin Sodium 80 MG TABLET PO (07:54)
[2024-11-03] MEDS: Metoprolol Succinate ER 25 MG TAB.ER.24H PO (07:54)
[2024-11-03] MEDS: Celecoxib 200 MG CAPSULE PO ×2 (07:54→21:20)
[2024-11-03] MEDS: Morphine Sulfate 4 MG/ML CARTRIDGE IVPUSH (07:55)
[2024-11-03 08:39] LABS: Glucose, Whole Blood 339 mg/dL (60-115)
--- NOTE | 2024-11-03 08:57 | P.PNOP_ITS ---
Subjective Subjective Date of Service: 11/03/24 Interval history: POD 1 s/p ORIF left femur No overnight events resting in bed eating breakfast denies sob, chest pain, palpitations Physical Exam Vital Signs: Vital Signs: Last Vital Signs Temp 97.7 F 11/03/24 07:00 Pulse 82 11/03/24 07:00 Resp 18 11/03/24 07:00 BP 122/59 L 11/03/24 07:00 Pulse Ox 95 11/03/24 07:00 O2 Del Method Nasal Cannula 11/03/24 07:00 O2 Flow Rate 1 11/03/24 07:00 BMI result Body Mass Index 31.9 Const: General: cooperative, healthy appearing and no acute distress Resp: Effort & Inspection: normal respiratory effort and able to speak in complete sentences Cardio: Rate: regular rate Peripheral pulses: Peripheral pulses 2+ throughout GI: Palpation (GI): Soft to palpation Skin: General skin exam: no rashes or lesions noted Extrem: Other: bandage clean dry and intact. [place] intact. No erythema or effusion. Calf supple nontender. Neurovascularly intact. Procedures Date of Service Date of Service: 11/03/24 Progress Note: A&P Assessment and plan (1) Closed left femoral fracture: Status: Acute Assessment and Plan: * Continue pain mgmnt * Begin lovenox for dvt ppx * begin PT / OT for Left femur-NWB, ROM of hip and knee ok * Dispo planning-Pending PT eval, pain mgmnt Time Spent With Patient Time: Total time managing care of this patient today ____ minutes. Quality Stroke Does the patient have a stroke diagnosis?: No VTE Prior VTE?: No VTE Risk Level:: Medical - moderate - high VTE Device Contraindication: N/A - Device Ordered VTE Drug Contraindication: Treatment Not Indicated
--- NOTE | 2024-11-03 10:22 | HO.PM.IMPN ---
Subjective Subjective Date of Service: 11/03/24 Interval History: pain improved Physical Exam Vital Signs: Vital Signs: Last Vital Signs Temp 97.7 F 11/03/24 07:00 Pulse 82 11/03/24 07:00 Resp 18 11/03/24 07:00 BP 122/59 L 11/03/24 07:00 Pulse Ox 95 11/03/24 07:00 O2 Del Method Nasal Cannula 11/03/24 07:00 O2 Flow Rate 1 11/03/24 07:00 BMI result Body Mass Index 31.9 Const: General: cooperative, healthy appearing and no acute distress Resp: Effort & Inspection: normal respiratory effort and able to speak in complete sentences Cardio: Rate: regular rate Peripheral pulses: Peripheral pulses 2+ throughout GI: Palpation (GI): Soft to palpation Skin: General skin exam: no rashes or lesions noted Extrem: Other: bandage clean dry and intact. [place] intact. No erythema or effusion. Calf supple nontender. Neurovascularly intact. Objective Data Active Medications Acetaminophen (Acetaminophen 325 Mg Tablet) 650 mg PO Q6H PRN PRN Reason: Pain, Mild (Pain Scale 1-3), fever or headache Calcium Carbonate (Calcium Carbonate 750 Mg Tab.Chew) 750 mg PO Q4H PRN PRN Reason: Heartburn Celecoxib (Celecoxib 200 Mg Capsule) 200 mg PO BID [facility] Last Admin: 11/03/24 07:54 Dose: 200 mg Documented By: VISHAL Enoxaparin Sodium (Enoxaparin Sodium 30 Mg/0.3 Ml Syringe) 30 mg SUBCUT Q24H [facility] Last Admin: 11/02/24 22:20 Dose: 30 mg Documented By: CATRINA Glucose (Glucose Gel 15 Gm Gel..Gram.) 15 gm PO Q15M PRN; Protocol PRN Reason: per Hypoglycemia Standing Ord. Dextrose (D10) 250 mls @ 750 mls/hr IV Q15M PRN; Protocol PRN Reason: per Hypoglycemia Standing Ord. Cefazolin Sodium/Dextrose (Ancef) 2 gm in 50 mls @ 100 mls/hr IV POSTOP ANTONINA Lactated Ringer's (Lr) 1,000 mls @ 100 mls/hr IVCONT .Q10H [facility] Insulin Human Lispro (Insulin Lispro 100 Unit/Ml 3 Ml Vial) 0 unit SUBCUT Q6H [facility]; Protocol Last Admin: 11/03/24 03:56 Dose: 8 unit Documented By: CATRINA Levothyroxine Sodium (Levothyroxine Sodium 112 Mcg Tablet) 112 mcg PO DAILY@0600 [facility] Last Admin: 11/03/24 05:15 Dose: 112 mcg Documented By: CATRINA Magnesium Hydroxide (Milk Of Magnesia 30 Ml Oral.Susp) 30 ml PO DAILY PRN PRN Reason: Constipation Last Admin: 11/03/24 03:59 Dose: 30 ml Documented By: CATRINA Melatonin (Melatonin 3 Mg Tablet) 6 mg PO BEDTIME PRN PRN Reason: Insomnia Metoprolol Succinate (Metoprolol Succinate Er 25 Mg Tab.Er.24h) 25 mg PO DAILY [facility]; Protocol Last Admin: 11/03/24 07:54 Dose: 25 mg Documented By: VISHAL Morphine Sulfate (Morphine Sulfate 4 Mg/Ml Cartridge) 4 mg IVPUSH Q4H PRN; Protocol PRN Reason: Pain, Severe (Pain Scale 7-10) Last Admin: 11/03/24 07:55 Dose: 4 mg Documented By: VISHAL Naloxone HCl (Naloxone Hcl 0.4 Mg/Ml Vial) 0.04 mg IVPUSH Q5M PRN PRN Reason: Excessive sedation or RR < 8 Naloxone HCl (Naloxone Hcl 0.4 Mg/Ml Vial) 0.04 mg IVPUSH Q5M PRN PRN Reason: Excessive sedation or RR < 8 Ondansetron HCl (Ondansetron Hcl 4 Mg/2 Ml Vial) 4 mg IVPUSH Q8H PRN PRN Reason: Nausea and Vomiting Oxycodone HCl (Oxycodone Hcl Immed Release 5 Mg Tablet) 5 mg PO Q4H PRN PRN Reason: Pain, Moderate(Pain Scale 4-6) Pravastatin Sodium (Pravastatin Sodium 80 Mg Tablet) 80 mg PO DAILY [facility] Last Admin: 11/03/24 07:54 Dose: 80 mg Documented By: VISHAL Sodium Chloride (0.9 % Sodium Chloride Flush 3 Ml Syringe) 3 ml IVFLUSH [facility] Last Admin: 11/03/24 07:54 Dose: 3 ml Documented By: VISHAL Sodium Chloride (0.9 % Sodium Chloride Flush 3 Ml Syringe) 3 ml IVFLUSH [facility] Last Admin: 11/03/24 07:54 Dose: Not Given Documented By: VISHAL Non-Admin Reason: Duplicate Order Labs 11/03/24 06:00 11/03/24 06:00 Labs: Laboratory Results - last 24 hr 10/31/24 11/02/24 11/02/24 22:42 10:47 14:05 MCV MCH MCHC RDW Plt Count MPV Absolute Nucleated RBC Nucleated RBC % (auto) Anion Gap Estim Creat Clear Calc Estimated GFR POC Glucose 268 H 341 H Random Glucose Calcium Blood Type A Positive Antibody Screen NEGATIVE Crossmatch See Detail 11/02/24 11/02/24 11/03/24 17:55 21:43 03:48 MCV MCH MCHC RDW Plt Count MPV Absolute Nucleated RBC Nucleated RBC % (auto) Anion Gap Estim Creat Clear Calc Estimated GFR POC Glucose 265 H 292 H 346 H Random Glucose Calcium Blood Type Antibody Screen Crossmatch 11/03/24 11/03/24 06:00 08:34 MCV 78.1 L MCH 26.2 L MCHC 33.6 RDW 17.5 H Plt Count 220 MPV 11.0 Absolute Nucleated RBC 0.000 Nucleated RBC % (auto) 0.0 Anion Gap 18 Estim Creat Clear Calc 28.9 Estimated GFR 32 POC Glucose 339 H Random Glucose 351 H* Calcium 8.0 L D Blood Type Antibody Screen Crossmatch Assessment and Plan (1) Cardiac arrhythmia: Status: Acute Plan 89F PMH CAD, LBBB, DM, hypothryoid, hld, htn, presented with fall complicated by left periprosthetic hip fracture mechanical fall complicated by left periprosthetic hip fracture pod 1, NWB LLE, ROM hip and knee ok pt eval lovenox EKG reviewed - no evidence of afib, appears to be sinus bradyarrythmia CAD statin not on antiplatelet DM insulin HTN holding lisinopril, hctz perioperatively continue toprol hypothyroid synthroid dvt prophylaxis - lvoenox DNR/DNI reason for continued hospitalization:PT Quality Stroke Does the patient have a stroke diagnosis?: No VTE Prior VTE?: No VTE Risk Level:: Medical - moderate - high VTE Device Contraindication: N/A - Device Ordered VTE Drug Contraindication: Treatment Not Indicated
--- NOTE | 2024-11-03 13:44 | HO.POSTANES ---
Post Anesthesia Evaluation Post Anesthesia Evaluation Date of Service: 11/03/24 Vital Signs: Vital Signs Temp Pulse Resp BP Pulse Ox O2 Del Method O2 Flow Rate 11/03/24 11:00 97.6 F 76 18 137/60 92 Room Air 11/03/24 07:00 97.7 F 82 18 122/59 L 95 Nasal Cannula 1 11/03/24 03:00 98.0 F 76 18 138/63 98 Nasal Cannula 2 Anesthesia: General Endotracheal-GETA Mental Status: Awake Pain Control: Satisfactory Nausea/Vomiting: None Hydration: Adequate Anesthesia-Related Issues: No Anes. Related Issues
[2024-11-03 15:13] LABS: Glucose, Whole Blood 439 mg/dL (60-115)
[2024-11-03] MEDS: Insulin Lispro 100 UNIT/ML 3 ML VIAL 10 UNIT SUBCUT (17:38)
[2024-11-03] MEDS: Insulin Glargine,Hum.rec.anlog 100 UNIT/ML 10 ML VIAL 24 UNIT SUBCUT (17:38)
[2024-11-03 20:29] LABS: Glucose, Whole Blood 380 mg/dL (60-115)
[2024-11-03] MEDS: Enoxaparin Sodium 30 MG/0.3 ML SYRINGE SUBCUT (21:20)
[2024-11-04 02:42] VITALS: BP 122/68; PULSE 69; RESP 18; TEMP 36.6; O2SAT 99
[2024-11-04 02:43] LABS: Glucose, Whole Blood 240 mg/dL (60-115)
[2024-11-04] MEDS: Insulin Lispro 100 UNIT/ML 3 ML VIAL SUBCUT ×4 (03:13→20:19)
[2024-11-04] MEDS: Levothyroxine Sodium 112 MCG TABLET PO (06:49)
[2024-11-04 06:53] LABS: Hematocrit 25.8 % (37.0-47.0); Hemoglobin 8.6 g/dl (12.0-16.0); Mean Corpuscular HGB Conc 33.3 g/dl (31.0-35.0); Mean Corpuscular Volume 77.9 fL (80.0-98.0); Mean Platelet Volume 10.8 fL (9.4-12.3); Platelet Count 202 X10*3/uL (160-400); Red Blood Count 3.31 X10*6/uL (4.20-5.50); Red Cell Distribution Width 17.7 % (11.0-16.0); White Blood Count 10.3 X10*3/uL (4.8-10.8)
[2024-11-04 07:00] VITALS: BP 125/57; PULSE 67; RESP 18; TEMP 36.3; O2SAT 97
[2024-11-04 07:22] LABS: Anion Gap 14 (12-20); Blood Urea Nitrogen 46 mg/dL (9-16); Calcium 8.4 mg/dL (8.4-10.2); Carbon Dioxide 26 mmol/L (22-29); Chloride 100 mmol/L (96-108); Estimated Glomerular Filt Rate 52; Glucose Random 238 mg/dL (60-115); Sodium 135 mmol/L (135-145)
[2024-11-04 08:20] LABS: Glucose, Whole Blood 240 mg/dL (60-115)
[2024-11-04] MEDS: Celecoxib 200 MG CAPSULE PO ×2 (08:30→20:18)
[2024-11-04] MEDS: Pravastatin Sodium 80 MG TABLET PO (08:31)
[2024-11-04] MEDS: Insulin Glargine,Hum.rec.anlog 100 UNIT/ML 10 ML VIAL 24 UNIT SUBCUT (08:31)
[2024-11-04] MEDS: Metoprolol Succinate ER 25 MG TAB.ER.24H PO (08:31)
[2024-11-04] MEDS: Lactated Ringers 1,000 ML 100 ML IVCONT (08:36)
[2024-11-04 09:29] VITALS: BP 125/57; PULSE 67; O2SAT 97
--- NOTE | 2024-11-04 10:47 | PM.DS ---
DS: Providers Provider Date of Service: 11/04/24 Date of admission: 10/31/24 22:02 Date of discharge: 11/04/24 Primary care physician: Janes Foster MD Consults: 10/31/24 22:11 Consult to Orthopedics Routine Consulting Provider: [facility] Surgeons Reason for consultation: Periprosthetic fracture of the left femoral diaphysis DS: Diagnosis Discharge Diagnosis (1) Cardiac arrhythmia: Status: Acute DS: Summary Hospital Course Hospital Course: from initial hpi: 89-year-old female with pertinent history of CAD, left bundle branch block, insulin-dependent diabetes mellitus, hypothyroidism, mixed hyperlipidemia, 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 Patient states she was in the kitchen counter making tea. Subsequently she started to move sideways towards her table where her supper was kept. Patient stumbled and fell on her left side. She was sitting up against a wall as per family member. Patient denies lightheadedness or dizziness prior to the fall. No palpitations or chest pain prior to the fall. Did not lose consciousness. She is unsure but she thinks she missed a step while walking side ways. Did not hit her head. Is not on any anticoagulation. No fever, chills, shortness of breath, abdominal pain, changes in urinary or bowel habits. In the emergency department, imaging with periprosthetic left femoral fracture and Orthopedic surgery was consulted who requested admission to medicine team. hospital course: Patient was admitted for mechanical fall complicated by left periprosthetic femur fracture. She underwent ORIF, recommendations from Orthopedics are nonweightbearing of left lower extremity into continue rehab for range of motion of hip and knee, DVT prophylaxis with Lovenox. Initially patient thought to have AFib with slow ventricular response, however on review of EKG this was sinus Adilson with PACs. For coronary disease was continued on statin. For diabetes with hyperglycemia was continued on basal bolus insulin. For hypertension was continue metoprolol, lisinopril and hydrochlorothiazide can be restarted as outpatient. For hypothyroidism was continued on levothyroxine. Time Attestation Discharge Coordination Time (in mins): 32 Quality: Safe Use of Opioids Does Pt have an Active Cancer Diagnosis on the Problem List?: No Quality: Stroke Does the patient have a stroke diagnosis?: No Physical Exam Vital Signs: Vital Signs: Last Vital Signs Temp 97.4 F 11/04/24 07:00 Pulse 67 11/04/24 09:29 Resp 18 11/04/24 07:00 BP 125/57 L 11/04/24 09:29 Pulse Ox 97 11/04/24 09:29 O2 Del Method Nasal Cannula 11/04/24 07:00 O2 Flow Rate 1 11/04/24 07:00 Oxygen Flow Rate 1 11/03/24 18:01 BMI result Body Mass Index 31.9 Const: General: cooperative, healthy appearing and no acute distress Resp: Effort & Inspection: normal respiratory effort and able to speak in complete sentences Cardio: Rate: regular rate Peripheral pulses: Peripheral pulses 2+ throughout GI: Palpation (GI): Soft to palpation Skin: General skin exam: no rashes or lesions noted Extrem: Other: bandage clean dry and intact. [place] intact. No erythema or effusion. Calf supple nontender. Neurovascularly intact. DS: Data Data Completed and Pending Labs on day of discharge: Laboratory Results - last 24 hr 11/03/24 11/03/24 11/04/24 15:10 20:26 02:38 WBC RBC Hgb Hct MCV MCH MCHC RDW Plt Count MPV Absolute Nucleated RBC Nucleated RBC % (auto) Sodium Potassium Chloride Carbon Dioxide Anion Gap BUN Creatinine Estim Creat Clear Calc Estimated GFR POC Glucose 439 H* 380 H* 240 H Random Glucose Calcium 11/04/24 11/04/24 06:37 07:24 WBC 10.3 RBC 3.31 L Hgb 8.6 L Hct 25.8 L MCV 77.9 L MCH 26.0 L MCHC 33.3 RDW 17.7 H Plt Count 202 MPV 10.8 Absolute Nucleated RBC 0.000 Nucleated RBC % (auto) 0.0 Sodium 135 Potassium 5.0 Chloride 100 Carbon Dioxide 26 Anion Gap 14 BUN 46 H Creatinine 1.01 Estim Creat Clear Calc 44.0 Estimated GFR 52 POC Glucose 240 H Random Glucose 238 H Calcium 8.4 Discharge Plan Discharge Anticipated Discharge Date/Time: 11/04/24 10:44 Patient Disposition: Xfer SNF Discharge Diagnosis: femur fracture Referrals: [facility] [Outside] - 1 Week Jaylen Baumann MD [Physician] - 1 Week Janes Foster MD [Primary Care Provider] - 1 Week Discharge Medications: New enoxaparin 30 mg/0.3 mL Syringe 30 mg subcut Q24H Qty: 0 0RF Continued lisinopril-hydrochlorothiazide 10-12.5 mg tablet 1 tab PO DAILY acetaminophen [Tylenol] 325 mg Tablet 325 mg PO DAILY PRN (Reason: Pain/Fever) levothyroxine 112 mcg tablet 112 mcg PO DAILY@0600 insulin glargine 100 unit/mL (3 mL) insulin pen 24 unit subcut DAILY insulin aspart U-100 100 unit/mL (3 mL) insulin pen See Protocol subcut TIDAC Protocol: Insulin Correction Scale Less than or equal to 110 ---- Give (units): 0 111 to 150 Give (units): 0 151 to 200 Give (units): 2 201 to 250 Give (units): 4 251 to 300 Give (units): 6 301 to 350 Give (units): 8 Greater than 350 Give (units): 10 Call MD if Blood Glucose > : 350 metoprolol succinate 25 mg tablet extended release 24 hr 25 mg PO DAILY pravastatin 80 mg tablet 80 mg PO DAILY Discharge Orders: Discharge Order (Routine); Ordered 11/04/24 Ordered By: Vicente Pryor Diet: Advance to usual diet Activity on Discharge: [facility] Stand Alone Forms: Patient Portal Discharge page Print Language: Armenian Care Plan Goals: recovery Health Concerns: femur fracture Plan of Treatment: [facility], rehab, follow up with ortho Assessment: see above
[2024-11-04 10:58] VITALS: BP 130/62; PULSE 65; RESP 18; TEMP 36.7; O2SAT 95
[2024-11-04] MEDS: Insulin Lispro 100 UNIT/ML 3 ML VIAL 15 UNIT SUBCUT (12:08)
[2024-11-04] MEDS: ceFAZolin Sodium/Dextrose,Iso 2 GM/50 ML PIGGYBACK IV (12:21)
[2024-11-04 12:50] LABS: Glucose, Whole Blood 417 mg/dL (60-115)
--- NOTE | 2024-11-04 13:03 | P.PNOP_ITS ---
Subjective Subjective Date of Service: 11/04/24 Interval history: POD 2 s/p ORIF left femur No overnight events resting in bed eating breakfast denies sob, chest pain, palpitations Physical Exam Vital Signs: Vital Signs: Last Vital Signs Temp 98.0 F 11/04/24 10:58 Pulse 65 11/04/24 10:58 Resp 18 11/04/24 10:58 BP 130/62 11/04/24 10:58 Pulse Ox 95 11/04/24 10:58 O2 Del Method Room Air 11/04/24 10:58 O2 Flow Rate 1 11/04/24 07:00 Oxygen Flow Rate 1 11/03/24 18:01 BMI result Body Mass Index 31.9 Const: General: cooperative, healthy appearing and no acute distress Resp: Effort & Inspection: normal respiratory effort and able to speak in complete sentences Cardio: Rate: regular rate Peripheral pulses: Peripheral pulses 2+ throughout GI: Palpation (GI): Soft to palpation Skin: General skin exam: no rashes or lesions noted Extrem: Other: bandage clean dry and intact. [place] intact. No erythema or effusion. Calf supple nontender. Neurovascularly intact. Procedures Date of Service Date of Service: 11/04/24 Progress Note: A&P Assessment and plan (1) Closed left femoral fracture: Status: Acute Assessment and Plan: * Continue pain mgmnt * lovenox for dvt ppx * PT / OT for Left femur-NWB, ROM of hip and knee ok * Dispo planning-Pending PT eval, pain mgmnt Time Spent With Patient Time: Total time managing care of this patient today ____ minutes. Quality Stroke Does the patient have a stroke diagnosis?: No VTE Prior VTE?: No VTE Risk Level:: Medical - moderate - high VTE Device Contraindication: N/A - Device Ordered VTE Drug Contraindication: Treatment Not Indicated
--- NOTE | 2024-11-04 13:07 | MHC.CM.PN ---
Second IMM given 11/04. Pt is medically cleared for discharge to acute rehab at [facility], pt will transport there via BLS/[facility].
[2024-11-04 15:00] VITALS: BP 127/59; PULSE 75; RESP 18; TEMP 36.5; O2SAT 94; O2SAT 95
[2024-11-04 16:32] LABS: Glucose, Whole Blood 352 mg/dL (60-115)
[2024-11-04] MEDS: 0.9 % Sodium Chloride Flush 3 ML SYRINGE IVFLUSH ×2 (18:03→20:19)
[2024-11-04 19:00] VITALS: BP 120/56; PULSE 78; RESP 17; TEMP 37.1; O2SAT 92
[2024-11-04] MEDS: Morphine Sulfate 4 MG/ML CARTRIDGE IVPUSH (20:17)
[2024-11-04] MEDS: ondansetron HCL 4 MG/2 ML VIAL IVPUSH (20:18)
[2024-11-04] MEDS: Enoxaparin Sodium 40 MG/0.4 ML SYRINGE SUBCUT (20:18)
[2024-11-04 20:24] LABS: Glucose, Whole Blood 309 mg/dL (60-115)
--- NOTE | 2024-11-22 12:44 | P.OP_ITS ---
Operative Note Operative Note Date of Service: 11/22/24 Narrative: Date of Service: 11/02/24 Pre-op diagnosis: LEFT PERIPROSTHETIC FEMUR FRACTURE Post-op diagnosis: same Procedure: ORIF LEFT PERIPROSTHETIC FEMUR FRACURE Implants: Luci . Pangea periprosthetic 358 mm plate Shiraz cerclage x 4 Surgeon: Jaylen Baumann MD Anesthesia: GETA and local Was an Delivery Room Supervisor used for this Procedure?: Yes Delivery Room Supervisor: Deepa Fraga Estimated blood loss (mL): 300 IV fluids (mL): 1,100 Pathology: none sent Condition: stable Disposition: PACU Patient was brought to the operating room and placed lateral on the radiolucent surgical table. She was prepped and draped in standard sterile fashion and a time out was called to identify proper site, proper procedure and IV antibiotics per weight were administered. I began by making a lateral incision from the lateral joint line to the proximal femur. I used the Werewolf for hemostasis. Once through the adipose tissue the IT band was incised in line with the incision. The vastus was reflected anteriorly and the bleeders were cauterized. This was an oblique fracture of the diaphysis with a stable implant. I used a [place] and large lobster claws to reduce the fracture and 2 lag screws were placed from lateral to medial using standard AO technique. I then selected a 358 mm periprosthetic plate to span the fracture from the LFC to the greater trochanter. This was placed and biplanar flouro was used to confirm appropriate position on the lateral femoral condyle and the grater trochanter. Once I was satisfied with the plate position I placed 5 bicortical lokcing screws in the distal metaphysis and 4 unicortical locking proximal to the distal aspect of the hip prosytheiss including one oblique screw into the greater trochanter. 5 cerclage wires were placed aroung the prosthesis and tightened using standard AO technique. An additional 4 locking screws were placed in the diaphysis distal to the prosthetic and the knee and hip were ranged and soila construct was stable. This was confirmed with biplanar flouour. The position of the plate and the fracture reduction were confirmed with biplanar fluoroscopy. Once satisfied with this I removed all non essential instrumentation and irrigated copiously. I performed copious irrigation and closed with absorbable sutures and skin john. Patient was then placed in sterile dressing and extubated. She was brought to the recovery room in stable condition. There were no known complications.
== END 2024-11-04 20:46 | disposition skilled nursing facility (03) | DRG 481 ==
LOC: HO.ED 19:35 → HO.EDOVER 22:14 → HO.IMC 11-01 14:47
PROVIDERS: Orthopaedic Surgery; Physician Assistant Medical; Admitting Provider Student in an Organized Health Care Education/Training Program; Emergency Provider Internal Medicine; PCP Internal Medicine; Visit Provider Internal Medicine
PROC: 0QS704Z Reposition Left Upper Femur with Internal Fixation Device, Open Approach (ICD-10-PCS; principal; 2024-11-02 16:20)
DX: S72.002A Fracture of unspecified part of neck of left femur, initial encounter for closed fracture (principal); M97.02XA Periprosthetic fracture around internal prosthetic left hip joint, initial encounter; W19.XXXA Unspecified fall, initial encounter; R00.1 Bradycardia, unspecified; I49.1 Atrial premature depolarization; Z66 Do not resuscitate; I25.10 Atherosclerotic heart disease of native coronary artery without angina pectoris; E03.9 Hypothyroidism, unspecified; E78.2 Mixed hyperlipidemia; E11.9 Type 2 diabetes mellitus without complications; Z79.4 Long term (current) use of insulin; Z79.890 Hormone replacement therapy; Z79.899 Other long term (current) drug therapy
CPT/HCPCS: 36415; 70450; 71045; 72125; 73502; 73552; 80048; 80053; 82947; 83735; 83880; 84443; 85025; 85027; 85610; 86850; 86900; 86901; 86923; 93005; 97162; 97166; 97530; 99285; C1713; J0131; J0690; J1650; J2003; J2270; J2405; J2704; J2795; J3010; J7120; P9016

== ENCOUNTER → 2024-10-31 18:27 | Outpatient (BNV) | payer MEDICARE, OTHER, SELFPAY | PROVIDERS: Admitting Provider Student in an Organized Health Care Education/Training Program; Emergency Provider Internal Medicine; PCP Internal Medicine; Visit Provider Internal Medicine | DX: I49.1 Atrial premature depolarization (principal) | CPT/HCPCS: 93010 ==

== ENCOUNTER → 2024-10-31 22:02 | Outpatient (BNV) | payer MEDICARE, OTHER, SELFPAY | PROVIDERS: Admitting Provider Student in an Organized Health Care Education/Training Program; Emergency Provider Internal Medicine; PCP Internal Medicine; Visit Provider Orthopaedic Surgery | DX: S72.92XA Unspecified fracture of left femur, initial encounter for closed fracture (principal) | CPT/HCPCS: 27507; 99024; 99223 ==

== ENCOUNTER → 2024-10-31 22:02 | Outpatient (BNV) | payer MEDICARE, OTHER, SELFPAY | PROVIDERS: Admitting Provider Student in an Organized Health Care Education/Training Program; Emergency Provider Internal Medicine; PCP Internal Medicine; Visit Provider Student in an Organized Health Care Education/Training Program | DX: I49.9 Cardiac arrhythmia, unspecified (principal) | CPT/HCPCS: 99223; 99232; 99239 ==

== ENCOUNTER 2024-11-24 11:13 | Outpatient (REF) | payer MEDICARE, OTHER, SELFPAY ==
--- NOTE | ~2024-11-24 | XR_ITS ---
EXAMINATION: XR FEMUR, LEFT CLINICAL INFORMATION: M79.606 - Pain in leg, unspecified COMPARISON: 10/31/2024 radiographs. TECHNIQUE: 6 views of the left femur were obtained. 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 Subtle periprosthetic lucency surrounds the distal stem of the femoral component, similar to the prior examination where there was an acute periprosthetic fracture. There has been placement of extensive lateral plate and screw fixation, fixating the mid diaphyseal spiral fracture, in anatomic alignment. The hardware appears intact. Numerous lateral to medially placed screws are intact without evidence of lucency. There are numerous cerclage wires in the proximal metadiaphysis. Fracture lines of the mid diaphyseal spiral fracture are still visible although there is some degree of early bridging bony callus present suggesting healing. There are surgical skin john laterally. Soft tissues demonstrate vascular calcifications. XR/XR femur LT 2V IMPRESSION: 1. 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 2. Extensive lateral fixation construct for a mid diaphyseal spiral prosthetic fractures seen 10/31/2024. No hardware abnormalities. 3. Evidence of early healing of the fracture which is in anatomic alignment. Electronically signed by: Alvino Pack MD 11/30/2024 01:49 PM DALJIT
--- OUTSIDE RECORDS SUMMARY | 2024-11-25 11:19 | XMS_ITS ---
Author Organization [facility] Address [address] [place] [address] Care Team Providers Care Skin Specialist Name Role Phone Janes Foster MD Primary Care Provider Fernando Wall Unavailable [phone] REASON FOR VISIT cx 10/18 Encounters Encounter Location Date Provider Diagnosis [address] [address] 10/17/2024 Fernando Lim Plan Of Treatment No Information Progress Notes * TIFFANYYuli Lisa ADOB:[birth year] (89 yo F)Acc No.[id number]:10/17/2024 Patient:?Lisa HOLLIDAY :1935???Age:88 Y???Sex:Female Address[address] [place], [address] * true * Date:? Generated for Vii jesus manuel/Jonnie/eTransmitting on:?11/25/2024 11:19 AM EST
--- OUTSIDE RECORDS SUMMARY | 2024-11-25 11:19 | XMS_ITS ---
Author Organization [facility] Address [address] [place] [address] Care Team Providers Care Nuclear Power Reactor Operator Name Role Phone Kristin MAGALLANES, Janes Primary Care Provider Fernando Wall Unavailable [phone] Encounters Encounter Location Date Provider Diagnosis [facility] [address] [place] [address] 10/18/2024 Fernando Lim Plan Of Treatment No Information Progress Notes * Lisa HOLLIDAY ADOB:[birth year] (89 yo F)Acc No.[id number]:10/18/2024 Progress Note Patient:?Lisa HOLLIDAY Provider:?Fernando Lim DPM :1935???Age:88 Y???Sex:Female D ate:10/18/2024 [address], [id number] Pcp:Janes Foster MD Subjective: * Chief Complaints: * ??? * Medical History:? Objective: * Vitals:? Assessment: Plan: * Treatment: * Images: * The named appointment provid er may or may not be the originator of this progress note, and it is not deemed complete until electronically signed by the appointment provider. Sign off status: Pending * Provider:?Fernando Lim DPM Date:?2023 Generated for Vii jesus manuel/Fabarg/eTransmitting on:?11/25/2024 11:19 AM EST
--- OUTSIDE RECORDS SUMMARY | 2024-11-25 11:19 | XMS_ITS ---
Author Organization [facility] Address [address] [facility] [place] [address] Care Team Providers Care Wiring Technician Name Role Phone Janes Foster MD Primary Care Provider Fernando Wall Unavailable [phone] Allergies Allergen (clinical drug ingredient) Drug/Non Drug [...] Ordered Date Performed Result Body Sit e 39230-AHYJPKO NAIL, 6 OR MORE 07/15/2024 N/A 10571-Inznnduj Plate 07/15/2024 N/A 84946-GRAZ SKIN LESIONS, OVER 4 07/15/2024 N/A Encounters Encounter Location Date Provider Diagnosis [facility] [place] [address] [place] [address] 07/15/2024 Fernando Lim Type 1 diabetes mellitus [...] Treatment Pending Test Test Name Order Date 35058-ZKHNYHV NAIL, 6 OR MORE 07/15/2024 70568-Ogriofvr Plate 07/15/2024 57884-RXFF SKIN LESIONS, OVER 4 07/15/20 24 Next [...] Motrin was recommended for pain or discomfort (59382) , DIABETES: Pt was advised as to [...] The patient chooses, no pharmaceutical tx - 45786 Keratoma Treatment Parring or Cutting o f Benign Hyperkeratotic Lesion(s) 55636 ( >4 Lesions) - The Benign hyperkeratotic lesions, as described above were pared, and/or cut utilizing a sterile #15 blade, tissue nippers, and/or dremel Progress Notes * Lisa HOLLIDAY ADOB:[birth year] (88 yo F)Acc No.[id number]:07/15/2024 Progress Note Patient:?Lisa Holliday Provider:?Fernando Lim DPM :1935???Age:88 Y???Sex:Female D ate:07/15/2024 Address: [address] , [id number] Pcp:Janes Foster MD Subjective: * Chief Complaints: [...] thyroidectomy needle Biopsy breast tissue 01/2017,02/2017Breast biopsy -[facility] [place] 03/2017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 10/2011Vertigo 07/2012[facility] - BP was Low / Heart [...] , T5? Plan: * Treatment: 2.?Ingrown nail?Procedure: 14703-Vfwyhksq Plate * Procedures:?Debride Nail 6-10:?Nail debridement?Performance of [...] The patient chooses, no pharmaceutical tx - 55617.?Keratoma Treatment:?Parring or Cutting of Benign Hyperkeratotic Lesion(s)?66134 ( >4 Lesions) - The Benign hyperkeratotic [...] Motrin was recommended for pain or discomfort (27900) , DIABETES: Pt was advised as to the risk of delayed or nonhealing due to diabetes. Pt is to call the office with any questions, concerns, or complications.? * Procedure Codes:?88590 DEBRI DE NAIL, 6 OR MORE, Modifiers: XS 02345 Avulsion Plate, Modifiers: XS , [id number] TRIM SKIN LESIONS, OVER 4, Modifiers: XS * Follow Up:?prn * Images: * Sign off status: Completed true * Provider:?Fernando Lim DPM Date:?2023 Generated for Angélica ken/Jonnie/Nat on:?11/25/2024 11:19 AM EST History and Physical Notes * HPI [...]
--- OUTSIDE RECORDS SUMMARY | 2024-11-25 11:19 | XMS_ITS | Patient Health Record ---
Author Organization [facility] Address [address] [place] [address] Care Team Providers Care Call Specialist Name Role Phone Janes Foster MD Primary Care Provider Fernando Wall Unavailable [phone] Allergies Allergen (clinical drug ingredient) Drug/Non Drug Allergy documented on EMR Reaction Allergy Type Onset Date Status Seasonal IC Unknown Drug Allergy Activ e Adhesive Tape rash Drug Allergy Act marquise Reason For Referral No Information Medications Medication [...] Problem Acquired hammer toe of right foot (3245664325313633 ) Other hammer toe(s) (acquired), right foot (M20.41) Active confirmed Response to treatment, Improvemen t Problem Acquired hammer toe of left foot (7380386733955298 ) Other hammer toe(s) (acquired), left foot (M20.42) Active confirmed Response to treatment, Improvemen t Problem Polyneuropathy due to diabetes mellitus type I (225364763) 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 Vital Signs Blood pressure diastolic 68 mm Hg 07/15/2024 Height 5 ft 6 in in 07/15/2024 Blood pressure systolic 128 mm Hg 07/15/2024 Weight 175 lbs 07/15/2024 BMI 28.24 kg/m2 07/15/2024 Procedures Procedure Date Ordered Date Performed Result Body Sit e 19778-GLVQUCX NAIL, 6 OR MORE 02/19/2024 N/A 15933-Wunrrbyg Plate 02/19/2024 N/A 31191-OFFI SKIN LESIONS, OVER 4 02/19/2024 N/A 90629-VSSRBVZ NAIL, 6 OR MORE 05/03/2024 N/A 15250-Zpheghdg Plate 05/03/2024 N/A 86227-YQXO SKIN LESIONS, OVER 4 05/03/2024 N/A 14633-SXAJDEI NAIL, 6 OR MORE 07/15/2024 N/A 67563-Vmntdaqk Plate 07/15/2024 N/A 02608-MWTK SKIN LESIONS, OVER 4 07/15/2024 N/A Encounters Encounter Location Date Provider Diagnosis [facility] [place] [address] [place] [address] 02/19/2024 Fernando Lim Type 1 diabetes mellitus with diabetic polyneuropathy E10.42 ; Tinea unguium B35.1 ; Ingrown nail L60.0 ; Other hammer toe(s) (acquired), right foot M20.41 and Other hammer toe(s) (acquired), left foot M20.[address] [address] 05/03/2024 Fernando Lim Type 1 diabetes mellitus with diabetic polyneuropathy E10.42 ; Tinea unguium B35.1 and Ingrown nail L60.[address] [address] 07/15/2024 Fernando Lim Type 1 diabetes mellitus with diabetic polyneuropathy E10.42 ; Tinea unguium B35.1 and Ingrown nail L60.[address] [address] 12/25/2023 Fernando Lim [address] [address] 10/17/2024 Fernando Lim Assessments Encounter Date Diagnosis (ICD [...] Test Name Order Date Hemoglobin A1c 11/30/2015 95207-IGGMAJD NAIL, 6 OR MORE 02/01/2016 71704-WWHUYDG NAIL, 6 OR MORE 11/30/2015 62021-JELWAFG NAIL, 6 OR MORE 08/21/2015 82863-YLSGMWL NAIL, 6 OR MORE 05/25/2015 07435-JJBPICC NAIL, 6 OR MORE 01/12/2015 08041-NQIQUNS NAIL, 6 OR MORE 04/08/2016 13378-ZSERYET NAIL, 6 OR MORE 07/08/2016 09060-ODPUTNZ NAIL, 6 OR MORE 12/19/2016 97676-WJLUZTF NAIL, 6 OR MORE 04/03/2017 16353-WYQYMRX NAIL, 6 OR MORE 06/05/2017 07441-VCRWKCG NAIL, 6 OR MORE 08/14/2017 95579-FVCBTDQ NAIL, 6 OR MORE 10/23/2017 82340-RJPZODX NAIL, 6 OR MORE 01/01/2018 35203-IBLQMYT NAIL, 6 OR MORE 06/18/2012 62738-YWQSXYM NAIL, 6 OR MORE 08/27/2012 39902-YFAGJCY NAIL, 6 OR MORE 01/04/2013 95369-QGAFYGY NAIL, 6 OR MORE 06/17/2013 91185-MOCPRZR NAIL, 6 OR MORE 08/26/2013 58240-DOQLIBN NAIL, 6 OR MORE 12/02/2013 62869-VSJBPIM NAIL, 6 OR MORE 06/06/2014 06519-ICOJBNH NAIL, 6 OR MORE 08/25/2014 53226-YMMALPN NAIL, 6 OR MORE 03/16/2015 30662-PKHBWAM NAIL, 6 OR MORE 05/11/2018 05041-KHGUPMN NAIL, 6 OR MORE 07/27/2018 43159-JQFOVKK NAIL, 6 OR MORE 10/12/2018 72784-MDWTYFY NAIL, 6 OR MORE 04/08/2019 15149-AEUMPAS NAIL, 6 OR MORE 08/16/2019 06872-EQNJGYB NAIL, 6 OR MORE 10/25/2019 41452-TDYWTGG NAIL, 6 OR MORE 01/03/2020 22043-DMHDGCJ NAIL, 6 OR MORE 05/01/2020 68971-SIUQHEB NAIL, 6 OR MORE 08/17/2020 19492-GZPVSIK NAIL, 6 OR MORE 10/30/2020 12592-LYFMHLK NAIL, 6 OR MORE 01/01/2021 97385-QEAXNTG NAIL, 6 OR MORE 03/29/2021 01526-HQYKDAI NAIL, 6 OR MORE 06/14/2021 68430-BEPEJZO NAIL, 6 OR MORE 09/13/2021 42195-JQHLMPB NAIL, 6 OR MORE 11/29/2021 32816-AVYTKRW NAIL, 6 OR MORE 02/11/2022 76419-AFDGEBK NAIL, 6 OR MORE 06/10/2022 90858-GVQNMAI NAIL, 6 OR MORE 08/22/2022 34232-QTWYEEL NAIL, 6 OR MORE 10/31/2022 14700-OZNNJPX NAIL, 6 OR MORE 01/09/2023 40968-SDITXIF NAIL, 6 OR MORE 03/24/2023 55979-YPKSRTV NAIL, 6 OR MORE 06/05/2023 15137-FMVRILN NAIL, 6 OR MORE 09/29/2023 51648-HVJDVQQ NAIL, 6 OR MORE 02/19/2024 25923-ECIAJSX NAIL, 6 OR MORE 05/03/2024 26413-EGDXOOP NAIL, 6 OR MORE 07/15/2024 05185-HTTJIYE NAIL, 6 OR MORE 09/16/2016 01909-FOLMXHM NAIL, 6 OR MORE 10/27/2014 15308-YQXABVZ NAIL, 6 OR MORE 02/10/2014 56831-TBDMISF NAIL, 6 OR MORE 03/25/2013 66631-BDQSRYM NAIL, 6 OR MORE 01/14/2019 45370-Nbujymha Plate 09/29/2023 68452-Odaukjhk Plate 02/10/2014 50850-Kjczwhxb Plate 07/15/2024 02624-Aqicxkch Plate 05/03/2024 35211-Jbbvgtzz Plate 02/19/2024 81873-Kbtvqopl Plate 06/05/2023 27492-Hsxowgpi Plate 10/30/2020 60080-Ilcombtp Plate 03/24/2023 44239-Osduzswj Plate 08/22/2022 87632-Jdwqauey Plate 06/10/2022 46941-Kpavrmep Plate 02/11/2022 40617-Pcdjovzq Plate 11/29/2021 47884-Emviyvdd Plate 09/13/2021 29544-Wnpvjvqj Plate 03/29/2021 09594-Abbdqzrt Plate 06/14/2021 72217-Tpxxrrfh Plate 05/01/2020 72871-Bnxgoijl Plate 03/16/2015 34308-Allwqnwy Plate 01/12/2015 53448-Asznpruz Plate 06/06/2014 49238-Sqcsukxy Plate 12/02/2013 25703-Qvftozfh Plate 08/21/2015 36123-Mpykxnhs Plate 05/25/2015 95025-Gwusbpul Plate 11/30/2015 56009-Nobvippf Plate 01/04/2013 83424-Dfqrfutc Plate Each Additional 75154-Vrgwpgkq Plate Each Additional 08/2015 35409-Xceclchq Plate Each Additional 29822-Ssidmgrt Plate Each Additional 73218-Vanrclro Plate Each Additional 77385-Btbryffp Plate Each Additional 11/2014 02971-Uwyflapf Plate Each Additional 87450-Zuhefits Plate Each Additional 25865-Uxonmnnn Plate Each Additional 01751-Ktmvgbze Plate Each Additional 59730-Tffdubzh Plate Each Additional 25125-Qjoriorf Plate Each Additional 29765 I&D ABSCESS- SIMPLE,SINGLE 015 31475-LSIA SKIN LESIONS, OVER 4 06/10/20 22 92678-BPZO SKIN LESIONS, OVER 4 02/12/20 22 06185-QDJJ SKIN LESIONS, OVER 4 08/22/20 22 28668-MFMP SKIN LESIONS, OVER 4 10/31/20 22 69068-SVFB SKIN LESIONS, OVER 4 03/24/20 23 70895-NRWT SKIN LESIONS, OVER 4 01/09/20 23 42276-NTPN SKIN LESIONS, OVER 4 06/05/20 23 04497-AMJV SKIN LESIONS, OVER 4 02/19/20 24 72072-LFWY SKIN LESIONS, OVER 4 09/29/20 23 60973-RPUG SKIN LESIONS, OVER 4 05/03/20 24 77280-ICYK SKIN LESIONS, OVER 4 07/15/20 24 35118-HLXG SKIN LESIONS, 2 TO 4 10/27/20 14 43992-EYSY SKIN LESIONS, 2 TO 4 09/16/20 16 26822-STWY SKIN LESIONS, 2 TO 4 11/29/19 22 23856-PAUZ SKIN LESIONS, 2 TO 4 03/29/20 21 64410-GBPB SKIN LESIONS, 2 TO 4 09/13/20 21 20094-FPAT SKIN LESIONS, 2 TO 4 06/14/20 21 37322-OZRR SKIN LESIONS, 2 TO 4 01/01/20 21 73300-NNRK SKIN LESIONS, 2 TO 4 10/30/20 20 23072-AGKY SKIN LESIONS, 2 TO 4 05/01/20 47555-PBVN SKIN LESIONS, 2 TO 4 08/17/20 12995-NJFC SKIN LESIONS, 2 TO 4 01/03/20 20 87705-KCWE SKIN LESIONS, 2 TO 4 10/25/20 19 74366-SBVW SKIN LESIONS, 2 TO 4 08/16/20 19 05569-QVDE SKIN LESIONS, 2 TO 4 04/08/20 19 83220-SESL SKIN LESIONS, 2 TO 4 10/12/20 18 45649-GRSI SKIN LESIONS, 2 TO 4 07/27/20 18 69177-MQCB SKIN LESIONS, 2 TO 4 08/21/20 15 00381-KWAJ SKIN LESIONS, 2 TO 4 01/12/20 15 63453-GGBU SKIN LESIONS, 2 TO 4 05/25/20 15 45998-BGUI SKIN LESIONS, 2 TO 4 11/30/19 16 41053-IAYQ SKIN LESIONS, 2 TO 4 02/01/20 16 56777-OZFF SKIN LESIONS, 2 TO 4 05/11/20 18 18908-AUUZ SKIN LESIONS, 2 TO 4 01/01/20 18 32321-VDFW SKIN LESIONS, 2 TO 4 10/23/20 17 20216-LEWK SKIN LESIONS, 2 TO 4 08/14/20 17 44003-GNMH SKIN LESIONS, 2 TO 4 06/05/20 17 60273-VEEV SKIN LESIONS, 2 TO 4 12/19/19 17 09919-VCVV SKIN LESIONS, 2 TO 4 04/03/20 17 90123-YYQV SKIN LESIONS, 2 TO 4 07/08/20 16 79456-DEFF SKIN LESIONS, 2 TO 4 04/08/20 16 58456-JUTG SKIN LESIONS, 2 TO 4 06/18/20 12 54002-BQJJ SKIN LESIONS, 2 TO 4 01/04/20 13 08239-NFPP SKIN LESIONS, 2 TO 4 08/26/20 13 87273-OTVD SKIN LESIONS, 2 TO 4 06/17/20 13 20351-JNFJ SKIN LESIONS, 2 TO 4 08/27/20 12 17429-RTZU SKIN LESIONS, 2 TO 4 03/19/20 12 27022-XGZH SKIN LESIONS, 2 TO 4 10/03/20 11 78978-LNYX SKIN LESIONS, 2 TO 4 12/23/19 12 33007-LYXM SKIN LESIONS, 2 TO 4 03/16/20 15 44392-XINB SKIN LESIONS, 2 TO 4 08/25/20 14 52227-EFOU SKIN LESIONS, 2 TO 4 06/06/20 14 47856-QLSX SKIN LESIONS, 2 TO 4 12/02/19 14 80514-ZHAU SKIN LESIONS, 2 TO 4 02/11/20 14 75430-HCGP SKIN LESIONS, 2 TO 4 03/25/20 13 93356-SNHW SKIN LESIONS, 2 TO 4 07/25/20 11 15521-MUFJ SKIN LESIONS, 2 TO 4 01/15/20 19 E6499-TBXNGTDN DYSTROPHIC NAILS ANY # N4719-ZLVBOVNQ DYSTROPHIC NAILS ANY # N1803-EQXADXZR DYSTROPHIC NAILS ANY # P1608-SDCPIOHI DYSTROPHIC NAILS ANY # Insurance Providers Payer Name Payer Address Payer Phone Subscriber Number Group Number Insured Name Patient Relationship to Insured Coverage Start Date Coverage End Date Medicare [employer] [address] [facility] [address] [id number] Lisa Holliday Self - patient is the insured [facility] [address] [place] [address] [phone] [id number] Lisa Holliday Self - patient is the insured Medical (General) History Medical History History ICD Code Cholesterol transfusions thyroid disorder ingrown nails gall bladder problems cancer back, hip, knee pain Arthritis hypertension type I diabetes Surgical History Surgery Date(Month/Year) cancer surgery cataract surgery cholecystectomy Left hip replacement - 2003 hysterectomy thyroidectomy needle Biopsy breast tissue 01/2017,02/15 017 Breast biopsy -[facility] 03/2017 Total Right Hip replacement Surgery 03/31 Hospitalization History Reason Date(Month/Year) [facility] - BP was Low / Heart blockage few hrs 11/2022 Vertigo 07/2012 Vertigo. 10/2011
--- OUTSIDE RECORDS SUMMARY | 2024-11-25 11:20 | XMS_ITS | Continuity of Care Document ---
Author Organization [facility] Nik lt Address [address] [place] [address]- Care Team Providers Care Proof Machine Operator Name Role Phone Janes Foster MD Primary Care Physician Encounter [facility] Date(s): 10/10/24 - 11/09/24 [facility] Adult [address] [place] [address]- Encounter Type: Triage Allergies, Adverse Reactions, Alerts [...] Vaccine (oldterm) 4 08/03/09 Given SARS-CoV-2 mRNA (lqyvjuk-fayl-ifkqc) vax 5 07/31/24 Recorded SARS-CoV-2 mRNA (iaxhuyz-bzzw-qszpx) vax 04/03/22 Recorded influenza virus vaccine, inactivated 07/30/24 Bill rded influenza virus vaccine, inactivated 08/22/23 Bill rded influenza virus vaccine, inactivated 6 08/24/21 Re corded influenza virus vaccine, inactivated 08/14/18 Give n influenza virus vaccine, inactivated 08/03/17 Bill rded influenza virus vaccine, inactivated 7 08/17/16 Gi rhianna influenza virus vaccine, inactivated 8 11/13/15 Gi rhianna influenza virus vaccine, inactivated 08/21/14 Give n influenza virus vaccine, inactivated 9 08/17/13 Gi rhianna influenza virus vaccine, inactivated 10 07/22/12 G iven influenza virus vaccine, inactivated 11 09/09/06 G iven SARS-CoV-2(COVID-19)mRNA-LNP vac(njx200) 07/30/24 Recorded RSV vaccine preF3, recombinant 12/19/23 Recorded zoster vaccine, inactivated 07/25/23 Recorded zoster vaccine, inactivated 05/23/23 Recorded pneumococcal 20-valent conjugate vaccine 05/22/23 Given [id number] 12y+ bivalent booster vax 09/16/22 Recorded SARS-CoV-2 [...] Pneumococcal Vaccine (oldterm) 11/16/04 Given 1Result Comment: [facility] 2Result Comment: local pharmacy 3Admin Note[facility] [place] 4Admin Note: given by simone doc by jose 5Result Comment: [facility] 6Result Comment: [facility] 7Admin Note: done at [facility] 8Admin Note: [facility] 9Admin Note: [facility] 10Admin Note: VIS GIVEN 11Admin Note: GIVEN IN [facility] 12Result Comment: [facility] Bo[facility]3 vaccine 13Admin Note: [place] 14Admin Note: [place] VIS [id number] given 15Admin Note: historical data Medications Accu-Chek [...] USE DIRECTED DX BREAST CANCER C50.919 FAX [phone], 12/17/16 10:11:47 AM EST, Compound Start Date: [...] 100 units/mL subcutaneous solution See Instructions, INJECT 26 UNITS SUBCUTANEOUSLY DAILY. ROTATE INJECTION SITES, # 30 Unknown, 1 Refills, Maintenance, 10/10/24 4:10:00 PM EST, [facility], 165, cm, 06/15/24 13:43:00 EDT, Height Start Date: 10/10/24 Status: Ordered Quantity: 30.0 Unit: Unknown Repeat number: 1 levothyroxine 0.112 mg oral tablet See Instructions, TAKE 1 TABLET EVERY DAY, # 90 tablet, 0 Refills, Maintenance, 10/28/24 10:04:00 AM EST, [facility], 165, cm, 06/15/24 13:43:00 EDT, Height Start Date: 10/28/24 Status: Ordered Quantity: 90.0 Unit: tablet Repeat number: 1 MASTECTOMY BRA MASTECTOMY BRA, See Instructions, # 3 each, Refills 1, Tot. Refills 1, Maintenance, USE DIRECTEDDX BREAST CA C50.919 FAX [phone], 12/17/16 10:13:30 AM EST, Compound Start Date: [...] TABLET EVERY DAY, # 90 tablet, Refills 1, Maintenance, 10/28/24 10:04:00 AM EST, Instructions Replace Required Details, Route to Pharmacy Electronically, [facility], 165, cm, 06/15/24 13:43:00 EDT, Height Start Date: 10/28/24 Status: Ordered Quantity: 90.0 Unit: tablet [facility] MASTECTOMY BRA, See [...] 5 Refills, Maintenance, 09/19/24 8:31:00 AM EST, [id number], 165, cm, 06/15/24 13:43:00 EDT, Height Start Date: 09/19/24 Status: Ordered Quantity: 45.0 Unit: Unknown Repeat number: 1 Pen Tina, 31 G x 5 mm BD Ultra [...] 3 Refills, Maintenance, 04/15/24 8:26:00 AM EDT, [facility], 165, cm, 11/25/23 9:58:00 [...] 12:00:00 PM EDT, Route to Pharmacy Electronically, [facility], 165, cm, 05/20/23 15:01:00 [...] Refills, Maintenance, 09/22/24 10:42:00 AM EST, Tablet, [facility], Partial fill upon patient [...] Team Personnel Name: Janes Foster MD Position: [facility] Physician - Primary Care Member Role: PCP Address: [address] [place] [address]- Telecom: Name: Zamzam Alejandro RN Position: [facility] RN Member Role: Primary Care Nurse Name: Sheeba (Bayflor) Stephanie Position: [facility] heating and ventilating tender Member Role: Lpn Home Health Name: Juan Manuel Hernandez Position: [facility] Outreach Member Role: Lifetime Consulting Physician Name: Ena Posey RN Position: [facility] RN Member Role: Primary Care Nurse Care Team Related Persons Name: YUNIOR JOHNSON Name: RAFAEL JOHNSON Name: RE, FUSED Insurance Providers Guarantor name: ARGENIS JOHNSON Health Plan Information #: 1 Payer: MEDICARE PART B OUTPT Member Number: NA Policy Number: NA Group Number: NA Health Plan Information #: 2 [address]: [facility] Member Number: NA Policy Number: NA Group Number: NA
--- OUTSIDE RECORDS SUMMARY | 2024-11-25 11:20 | XMS_ITS | Data Portability ---
Author Organization [place] - [facility], Allergy Address [address] [address] Care Team Providers Care Computerized Table Cutter Name Role Phone PHILIPP OVIEDO Primary Care Provider [phone] Assessment Encounter Date Assessment Date Assessment LastModified [...] Recorded Time Impacted cerumen in right ear [id number] 40334 Active 2021 Impacted cerumen, right ear; Note: Date Diagnosed : 07/14/2022 1:28 PM (H61.21) Not Available [facility] 4 02:40:09 Sensorine ural hearing loss of bilateral ears 447870368 Active 2015 Sensorine ural hearing loss, bilateral ; Note: Date Diagnosed : 6 1:22 PM (H90.3) Not Available [facility] 4 02:40:08 Otitis media of left ear 00650278888 82969 Active 2019 Otitis media, unspecifi ed, left ear; Note: Date Diagnosed : 03/22/2020 9:49 AM (H66.92) Not Available [facility] 4 02:40:08 Impacted cerumen of bilateral ears 13443136262 13762 Active 2015 Impacted cerumen, bilateral ; Note: Date Diagnosed : 6 12:21 PM (H61.23) Not Available [facility] 4 02:40:14 Impacted cerumen 05838995 Active 2013 Impacted cerumen; CMS Risk: low risk CMS Treatment : new problem (to examiner) : no additiona l workup planned Not Available [facility] 4 02:40:16 Otorrhea of left ear 75245608426 45385 Active 2019 Otorrhea, left ear; Note: Date Diagnosed : 04/23/2020 3:37 PM (H92.12) Not Available [facility] 4 02:40:13 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 Procedures Surgical History Date Name Laterality Status Provider Name and Address Organization Details Recorded Time 4 Cerumen removal without microscope bilat completed CATHERINE DESAI PA-C [address] [place] [address], [id number] - [facility] 07/26/2024 11:54:29 Imaging Results None recorded. Procedure Notes None recorded. Medical Equipment None Reported. Medications Name Sig Start Date Stop Date Status Note LastModified by Organization Details LastModified Time nifedipin e ER 30 mg tablet,ex tended release 24 hr 03/21 completed Medicati on ID: [id number] Du ration Value: 90 Reason: () Brand Name: nifedipi ne Send Method: E-Prescr ibed Sub s Allowed: subs OK Speci al Instruct ion: TAKE 1 TABLET BY MOUTH EVERY DAY Medi [facility] nericNam e: nifedipi ne Not Available Not Available Not Available amoxicill in 500 mg capsule TAKE 4 CAPSULES BY MOUTH ONE HOUR PRIOR TO DENTAL PROCEDUR E active Not Available Not Available No t Available metformin 500 mg tablet 03/15 completed Medicati on ID: [id number] D uration Value: 90 Brand Name: metformi n Send Method: E-Prescr ibed Sub s Allowed: subs OK [facility] : metformi n Not Available Not Available Not Available lisinopri l 20 mg tablet active Not Available Not Available Not Available clonazepa m 0.5 mg tablet 04/23 completed Medicati on ID: [id number] D uration Value: 15 Reason: () Brand Name: clonazep am Send Method: E-Prescr ibed Sub s Allowed: subs OK Medic [facility] ericName : clonazep am Not Available Not Available Not Available Lantus U-100 Insulin 100 unit/mL subcutane ous solution 04/23 completed Medicati on ID: [id number] Du ration Value: 56 Reason: () Brand Name: Lantus U-100 Insulin Send Method: E-Prescr ibed Sub s Allowed: subs OK Speci al Instruct ion: INJECT 30 - 38 UNITS SUBCUTAN EOUSLY OR DIRECTED BY MD [facility] eric[facility] : Lantus U-100 Insulin Not Available Not Available Not Available levothyro xine 100 mcg tablet 03/15 completed Medicati on ID: [id number] D uration Value: 90 Brand Name: levothyr oxine Se nd Method: E-Prescr ibed Sub s Allowed: subs OK Medic [facility] ericName : levothyr oxine Not Available Not Available Not Available ofloxacin 0.3 % ear drops 03/15 completed Medicati on ID: [id number] D uration Value: 10 Brand Name: ofloxaci n Send Method: E-Prescr ibed Sub s Allowed: subs OK Medic [facility] ericName : ofloxaci n Not Available [...] 3 drop 04/23 completed Medicati on ID: [id number] D uration Value: 14 Prescri bed By Name: Clara perez MD Brand Name: tobramyc in-dexam ethasone Send Method: E-Prescr ibed Sub s Allowed: subs OK Speci al Instruct ion: apply to affected ear Medi cationGe nericNam e: tobramyc in-dexam ethasone Not Available Not Available Not Available neomycin- polymyxin -hydrocor t 3.5 mg-10,000 unit/mL-1 % ear drops,ester p 03/21 completed Medicati on ID: [id number] Du ration Value: 30 Reason: () Brand [...] topical gel 03/15 completed Medicati on ID: [id number] B rand Name: diclofen ac sodium S end Method: E-Prescr ibed Sub s Allowed: subs OK Medic ationGen ericName : diclofen ac sodium Not Available Not Available Not Available Arexvy (PF) 120 mcg/0.5 mL IM suspensio n active Medicati on ID: [id number] B rand Name: Audra (VELASQUEZ) Billy d Method: E-Prescr ibed Sub s Allowed: subs OK Medic ationGen ericName : Audra (PF) Not Available Not Available Not Available Vitals Date Recorded Body height Body mass index (BMI) Body weight Provider Name and Address Organization Details Last Updated DateTime 07/26/2024 157.48 cm 30.7 kg/m2 42937.52 g Donny Sarkar [place] - [facility] 07/26/2024 11:16:48 Social History None recorded. Functional Status None recorded. Mental Status None recorded. Family History Nothing Reported. Medical History No medical history recorded. Gynecological HistoryNo gynecological history recorded. Obstetrics History GPAL:G 0 P 0 0 0 0 Past Encounters Encounter ID Performer Location Encounter Start Date Encounter Closed Date Diagnosis/Indication Diagnosis SNOMED-CT Code Diagnosis ICD10 Code Diagnosis Note [id number] RUIZ CROW MD [facility] [address] [address] 07/26/2024 11:12:02 07/26/2024 11:56:27 Impacted cerumen of bilateral ears [id number] 563971 H61.23 Health Concerns Section Related Observation LastModified by Organization Detai ls LastModified Time None Recorded Concern Status LastModified by Organization Details LastModified Time None Recorded Advance Directives Directive None Recorded Payers Encounter Date Sequence Insurance Name Policy Number Policy Genao Covered Member ID Genao Member ID Guarantor Name 07/26/2024 1 [place] [employer] Lisa Holliday [id number] Lisa Holliday 07/26/2024 2 [facility] [place] - PLAN 1 (MEDICARE SUPPLEMENT) [id number] Lisa Holliday [id number] Lisa Holliday Notes Date Note Type Note Provider Name and Address Organization Details Recorded Time 07/26/2024 text/html 88-year-old female presents for evaluation of the ears. She reports that her hearing is very poor despite her hearing aids. She notes it has been a very long time since she had an audiogram. She denies otalgia, otorrhea, and tinnitus. RUIZ CROW MD [address] [place] [address], [place], [address], [place] - [facility] 07/26/2024 17:26:24 OBGyn Episode No OBEpisode recorded.
== END 2024-11-24 11:14 | disposition home or self-care (01) ==
LOC: HO.HOSX 11:13
PROVIDERS: Visit Provider Physician Assistant
DX: M79.602 Pain in left arm (principal); Z96.642 Presence of left artificial hip joint; S72.002D Fracture of unspecified part of neck of left femur, subsequent encounter for closed fracture with routine healing; Z98.890 Other specified postprocedural states
CPT/HCPCS: 73552; 99212

== ENCOUNTER 2024-11-24 12:00 | Outpatient (AMB) | payer MEDICARE, OTHER, SELFPAY ==
--- NOTE | 2024-11-24 12:30 | MHC.OFFVIS ---
Intake Visit Reasons: PO-ORIF left femur 11/02/24 NE Intake Note: Lisa is a 89 year old female who presents today post operatively status post left periprosthetic femur fracture ORIF DOS: 11/02/2024 w/ Dr Baumann. Allergies adhesive tape [Adhesive Tape] Allergy (Unknown, Verified 10/31/24 18:09) SKIN REDNESS Medication List - Last Reconciled 11/24/24 by Giuliano Canela PA-C acetaminophen (Tylenol) 325 mg PO DAILY PRN enoxaparin 30 mg (0.3 mL) subcut Q24H insulin aspart U-100 See Protocol sliding scale doses subcut TIDAC insulin glargine 24 units subcut DAILY levothyroxine 112 mcg PO DAILY@0600 lisinopril-hydrochlorothiazide 10-12.5 mg 1 tab PO DAILY metoprolol succinate ER 25 mg PO DAILY pravastatin 80 mg PO DAILY HPI HPI PO-ORIF left femur 11/02/24 NE: Details: 89-year-old female returns to the office today status post ORIF left femur periprosthetic fracture with Dr. Baumann on 11/02. She is currently at a rehab facility. Nonweightbearing left lower extremity. She complains of left knee pain. 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 No ecchymosis, no swelling. No drainage. No significant tenderness around the knee. No joint effusion. Calf supple nontender neurovascularly intact. Results Reviewed Results Reviewed: X-rays of the left femur obtained in the office today and reviewed by show intact orthopedic hardware with stable fracture production. Assessment & Plan Assessment & Plan (1) Closed left femoral fracture: Code(s): S72.92XA - Unspecified fracture of left femur, initial encounter for closed fracture Category: Medical Qualifiers: Encounter type: initial encounter Fracture alignment: displaced Plan: [place] removed today Steri-Strips applied. She will continue nonweightbearing left lower extremity. She can perform range of motion of the knee along with isometric quad exercises. Upper body conditioning. She will see us back in 4 weeks with x-rays sooner if needed. Orders: Orders XR femur LT 2V Today M79.606 - Pain in leg, unspecified Coding Level of Care Code Global (20303) Diagnoses Closed left femoral fracture S72.92XA Encounter type: initial encounter Fracture alignment: displaced
== END 2024-11-24 13:20 | disposition home or self-care (01) ==
LOC: HO.HOS 12:00
PROVIDERS: PCP Internal Medicine; Visit Provider Physician Assistant
DX: S72.92XA Unspecified fracture of left femur, initial encounter for closed fracture (principal)
CPT/HCPCS: 99024

== ENCOUNTER → 2024-12-22 09:31 | Outpatient (BNV) | payer MEDICARE, OTHER, SELFPAY | PROVIDERS: Visit Provider Radiology Diagnostic Radiology | DX: M97.02XA Periprosthetic fracture around internal prosthetic left hip joint, initial encounter (principal); S72.332D Displaced oblique fracture of shaft of left femur, subsequent encounter for closed fracture with routine healing | CPT/HCPCS: 73552 ==

== ENCOUNTER 2024-12-22 11:51 | Outpatient (REF) | payer MEDICARE, OTHER, SELFPAY ==
--- NOTE | ~2024-12-22 | XR_ITS ---
EXAMINATION: XR FEMUR 2 VIEWS LEFT HISTORY: M79.606 - Pain in leg, unspecified COMPARISON: Comparison is made with the prior examination dated 11/24/2024. FINDINGS: AP and lateral views of the left femur are submitted. 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 Again seen is a sideplate and multiple orthopedic screws at the site of the previously seen proximal diaphyseal fracture. The fracture line remains visible. There is mild narrowing of the medial compartment of the knee. There are vascular calcifications. XR/XR femur LT 2V IMPRESSION: Internal fixation of an oblique fracture of the proximal femoral diaphysis without significant change Electronically signed by: Rudolph Granados MD 12/22/2024 11:05 AM DALJIT
--- OUTSIDE RECORDS SUMMARY | 2024-12-23 12:49 | XMS_ITS ---
Author Organization [facility] Address [address] [facility] [place] [address] Care Team Providers Care Telemarketing Manager Name Role Phone Janes Foster MD Primary Care Provider Fernando Wall Unavailable [phone] Allergies Allergen (clinical drug ingredient) Drug/Non Drug [...] Ordered Date Performed Result Body Sit e 78120-OUXAMGW NAIL, 6 OR MORE 07/15/2024 N/A 79639-Gdvnbwjr Plate 07/15/2024 N/A 98639-WNGS SKIN LESIONS, OVER 4 07/15/2024 N/A Encounters Encounter Location Date Provider Diagnosis [facility] [place] [address] [place] [address] 07/15/2024 Fernando Lim Type 1 diabetes mellitus [...] Treatment Pending Test Test Name Order Date 16675-ULOMSKS NAIL, 6 OR MORE 07/15/2024 68382-Psnazcrl Plate 07/15/2024 62972-ODEL SKIN LESIONS, OVER 4 07/15/20 24 Next [...] Motrin was recommended for pain or discomfort (36090) , DIABETES: Pt was advised as to [...] use of a nail nipper and/or dremel-type bench grinder, to a more viable healthy nail plate or bed tissue 6-10. Silver nitrate used for any petechial bleeding as necessary. Definitive antifungal treatment options have been reviewed and discussed with the patient. The patient chooses, no pharmaceutical tx - 59091 Keratoma Treatment Parring or Cutting o f Benign Hyperkeratotic Lesion(s) 34637 ( >4 Lesions) - The Benign hyperkeratotic lesions, as described above were pared, and/or cut utilizing a sterile #15 blade, tissue nippers, and/or dremel Progress Notes * Lisa HOLLIDAY ADOB:[birth year] (88 yo F)Acc No.[id number]:07/15/2024 Progress Note Patient:?Lisa Holliday Provider:?Fernando Lim DPM :1935???Age:88 Y???Sex:Female D ate:07/15/2024 Address: [address] , [phone] Pcp:Janes Foster MD Subjective: * Chief Complaints: [...] needle Biopsy breast tissue 01/2017,02/2017Breast biopsy -[facility] 03/2017Total Right Hip replacement Surgery 03/31/2018 * [...] , T5? Plan: * Treatment: 2.?Ingrown nail?Procedure: 65087-Doyvwwfi Plate * Procedures:?Debride Nail 6-10:?Nail debridement?Performance of this nail treatment by a nonprofessional would put this patients foot and overall health at risk. Therefore, nail debridement was performed extensively to reduce/remove overall nail length, girth, thickness, subungual debris, and necrotic tissue, by manual and/or electrical means through the use of a nail nipper and/or dremel-type bench grinder, to a more viable healthy nail plate or bed tissue 6-10. Silver nitrate used for any petechial bleeding as necessary. Definitive antifungal treatment options have been reviewed and discussed with the patient. The patient chooses, no pharmaceutical tx - 68264.?Keratoma Treatment:?Parring or Cutting of Benign Hyperkeratotic Lesion(s)?39240 ( >4 Lesions) - The Benign hyperkeratotic [...] Motrin was recommended for pain or discomfort (97344) , DIABETES: Pt was advised as to the risk of delayed or nonhealing due to diabetes. Pt is to call the office with any questions, concerns, or complications.? * Procedure Codes:?93213 DEBRI DE NAIL, 6 OR MORE, Modifiers: XS 87927 Avulsion Plate, Modifiers: XS , [id number] TRIM SKIN LESIONS, OVER 4, Modifiers: XS * Follow Up:?prn * Images: * Sign off status: Completed true * Provider:?Fernando Lim DPM Date:?2023 Generated for Angélica ken/Jonnie/Nat on:?12/23/2024 12:48 PM EST History and Physical Notes * [...]
--- OUTSIDE RECORDS SUMMARY | 2024-12-23 12:49 | XMS_ITS | Data Portability ---
Author Organization [place] - [facility], Allergy Address [address] [address] Care Team Providers Care Home Specialist Name Role Phone PHILIPP OVIEDO Primary Care Provider [phone] Assessment Encounter Date Assessment Date Assessment LastModified [...] Recorded Time Impacted cerumen in right ear 04290694118 17964 Active 2021 Impacted cerumen, right ear; Note: Date Diagnosed : 07/14/2022 1:28 PM (H61.21) Not Available [facility] 4 02:40:09 Sensorine ural hearing loss of bilateral ears 980979383 Active 2015 Sensorine ural hearing loss, bilateral ; Note: Date Diagnosed : 6 1:22 PM (H90.3) Not Available [facility] 4 02:40:08 Otitis media of left ear 58715649290 28578 Active 2019 Otitis media, unspecifi ed, left ear; Note: Date Diagnosed : 03/22/2020 9:49 AM (H66.92) Not Available [facility] 4 02:40:08 Impacted cerumen of bilateral ears 53180494233 85329 Active 2015 Impacted cerumen, bilateral ; Note: Date Diagnosed : 6 12:21 PM (H61.23) Not Available [facility] 4 02:40:14 Impacted cerumen 42120026 Active 2013 Impacted cerumen; CMS Risk: low risk CMS Treatment : new problem (to examiner) : no additiona l workup planned Not Available [facility] 4 02:40:16 Otorrhea of left ear 45228883185 70676 Active 2019 Otorrhea, left ear; Note: Date Diagnosed : 04/23/2020 3:37 PM (H92.12) Not Available [facility] 4 02:40:13 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 Procedures Surgical History Date Name Laterality Status Provider Name and Address Organization Details Recorded Time 4 Cerumen removal without microscope bilat completed CATHERINE DESAI PA-C [address] [place] [address], [id number] - [facility] 07/26/2024 11:54:29 Imaging Results None recorded. Procedure Notes None recorded. Medical Equipment None Reported. Medications Name Sig Start Date Stop Date Status Note LastModified by Organization Details LastModified Time nifedipin e ER 30 mg tablet,ex tended release 24 hr 03/21 completed Medicati on ID: 11274 Du ration Value: 90 Reason: () Brand Name: nifedipi ne Send Method: E-Prescr ibed Sub s Allowed: subs OK Speci al Instruct ion: TAKE 1 TABLET BY MOUTH EVERY DAY Medi [facility] nericNam e: nifedipi ne Not Available Not Available Not Available amoxicill in 500 mg capsule TAKE 4 CAPSULES BY MOUTH ONE HOUR PRIOR TO DENTAL PROCEDUR E active Not Available Not Available No t Available metformin 500 mg tablet 03/15 completed Medicati on ID: [id number] D uration Value: 90 Brand Name: metformi n Send Method: E-Prescr ibed Sub s Allowed: subs OK Medic [facility] : metformi n Not Available Not Available Not Available lisinopri l 20 mg tablet active Not Available Not Available Not Available clonazepa m 0.5 mg tablet 04/23 completed Medicati on ID: [id number] D uration Value: 15 Reason: () Brand Name: clonazep am Send Method: E-Prescr ibed Sub s Allowed: subs OK Medic [facility] ericName : clonazep am Not Available Not Available Not Available Lantus U-100 Insulin 100 unit/mL subcutane ous solution 04/23 completed Medicati on ID: [id number] Du ration Value: 56 Reason: () Brand Name: Lantus U-100 Insulin Send Method: E-Prescr ibed Sub s Allowed: subs OK Speci al Instruct ion: INJECT 30 - 38 UNITS SUBCUTAN EOUSLY OR DIRECTED BY MD [facility] eric[facility] : Lantus U-100 Insulin Not Available Not Available Not Available levothyro xine 100 mcg tablet 03/15 completed Medicati on ID: [id number] D uration Value: 90 Brand Name: levothyr oxine Se nd Method: E-Prescr ibed Sub s Allowed: subs OK Medic [facility] ericName : levothyr oxine Not Available Not Available Not Available ofloxacin 0.3 % ear drops 03/15 completed Medicati on ID: [id number] D uration Value: 10 Brand Name: ofloxaci n Send Method: E-Prescr ibed Sub s Allowed: subs OK Medic [facility] ericName : ofloxaci n Not Available [...] 3 drop 04/23 completed Medicati on ID: [id number] D uration Value: 14 Prescri bed By Name: Clara perez MD Brand Name: tobramyc in-dexam ethasone Send Method: E-Prescr ibed Sub s Allowed: subs OK Speci al Instruct ion: apply to affected ear Medi cationGe nericNam e: tobramyc in-dexam ethasone Not Available Not Available Not Available neomycin- polymyxin -hydrocor t 3.5 mg-10,000 unit/mL-1 % ear drops,ester p 03/21 completed Medicati on ID: 75259 Du ration Value: 30 Reason: () Brand [...] topical gel 03/15 completed Medicati on ID: [id number] B rand Name: diclofen ac sodium S end Method: E-Prescr ibed Sub s Allowed: subs OK Medic at[facility] ericName : diclofen ac sodium Not Available Not Available Not Available Arexvy (PF) 120 mcg/0.5 mL IM suspensio n active Medicati on ID: [id number] B rand Name: Audra (VELASQUEZ) Billy d Method: E-Prescr ibed Sub s Allowed: subs OK Medic ationGen ericName : Audra (PF) Not Available Not Available Not Available Vitals Date Recorded Body height Body mass index (BMI) Body weight Provider Name and Address Organization Details Last Updated DateTime 07/26/2024 157.48 cm 30.7 kg/m2 96825.52 g Donny Sarkar [place] - [facility] 07/26/2024 11:16:48 Social History None recorded. Functional Status None recorded. Mental Status None recorded. Family History Nothing Reported. Medical History No medical history recorded. Gynecological HistoryNo gynecological history recorded. Obstetrics History GPAL:G 0 P 0 0 0 0 Past Encounters Encounter ID Performer Location Encounter Start Date Encounter Closed Date Diagnosis/Indication Diagnosis SNOMED-CT Code Diagnosis ICD10 Code Diagnosis Note [id number] RUIZ CROW MD [facility] [address] [address] 07/26/2024 11:12:02 07/26/2024 11:56:27 Impacted cerumen of bilateral ears [id number] 350420 H61.23 Health Concerns Section Related Observation LastModified by Organization Detai ls LastModified Time None Recorded Concern Status LastModified by Organization Details LastModified Time None Recorded Advance Directives Directive None Recorded Payers Encounter Date Sequence Insurance Name Policy Number Policy Genao Covered Member ID Genao Member ID Guarantor Name 07/26/2024 1 [place] [employer] [place] Lisa Holliday [id number] Lisa Holliday 07/26/2024 2 [employer] [place] - PLAN 1 (MEDICARE SUPPLEMENT) [id number] 1 Lisa Holliday [id number] Lisa Holliday Notes Date Note Type Note Provider Name and Address Organization Details Recorded Time 07/26/2024 text/html 88-year-old female presents for evaluation of the ears. She reports that her hearing is very poor despite her hearing aids. She notes it has been a very long time since she had an audiogram. She denies otalgia, otorrhea, and tinnitus. RUIZ CROW MD [address] [place] [address], [place], [address], [place] - [facility] 07/26/2024 17:26:24 OBGyn Episode No OBEpisode recorded.
--- OUTSIDE RECORDS SUMMARY | 2024-12-23 12:49 | XMS_ITS | Patient Health Record ---
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 Name Role Phone Janes Foster MD Primary Care Provider Fernando Wall Unavailable [phone] Allergies Allergen (clinical drug ingredient) Drug/Non Drug [...] Problem Acquired hammer toe of right foot (8943289601166091 ) Other hammer toe(s) (acquired), right foot (M20.41) Active confirmed Response to treatment, Improvemen t Problem Acquired hammer toe of left foot ([id number] ) Other hammer toe(s) (acquired), left foot (M20.42) Active confirmed Response to treatment, Improvemen t Problem Polyneuropathy due to diabetes mellitus type I (993847838) 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 Vital Signs Blood pressure diastolic 68 mm Hg 07/15/2024 Height 5 ft 6 in in 07/15/2024 Blood pressure systolic 128 mm Hg 07/15/2024 Weight 175 lbs 07/15/2024 BMI 28.24 kg/m2 07/15/2024 Procedures Procedure Date Ordered Date Performed Result Body Sit e 04819-YWTIYHL NAIL, 6 OR MORE 02/19/2024 N/A 59012-Jnfxkfkd Plate 02/19/2024 N/A 99778-FOFD SKIN LESIONS, OVER 4 02/19/2024 N/A 85752-GYWERZO NAIL, 6 OR MORE 05/03/2024 N/A 81514-Qwiikhzo Plate 05/03/2024 N/A 19042-SIDR SKIN LESIONS, OVER 4 05/03/2024 N/A 24489-KNDFWRI NAIL, 6 OR MORE 07/15/2024 N/A 71636-Vbfakuwa Plate 07/15/2024 N/A 95337-NLGW SKIN LESIONS, OVER 4 07/15/2024 N/A Encounters Encounter Location Date Provider Diagnosis [facility] [address] [place] [address] 02/19/2024 Fernando Lim Type 1 diabetes mellitus with diabetic polyneuropathy E10.42 ; Tinea unguium B35.1 ; Ingrown nail L60.0 ; Other hammer toe(s) (acquired), right foot M20.41 and Other hammer toe(s) (acquired), left foot M20.[address] [address] 05/03/2024 Fernando Lim Type 1 diabetes mellitus with diabetic polyneuropathy E10.42 ; Tinea unguium B35.1 and Ingrown nail L60.[address] [address] 07/15/2024 Fernando Lim Type 1 diabetes mellitus with diabetic polyneuropathy E10.42 ; Tinea unguium B35.1 and Ingrown nail L60.[address] [address] 12/25/2023 Fernando Lim [address] [address] 10/17/2024 Fernando Lim Assessments Encounter Date Diagnosis [...] Test Name Order Date Hemoglobin A1c 11/30/2015 29616-DSMJNUJ NAIL, 6 OR MORE 02/01/2016 45927-VBVAQYP NAIL, 6 OR MORE 04/08/2016 74314-RVUTVAC NAIL, 6 OR MORE 07/08/2016 82843-GVUWZJZ NAIL, 6 OR MORE 09/16/2016 32561-QMZUKRY NAIL, 6 OR MORE 08/21/2015 74091-MRSXGHQ NAIL, 6 OR MORE 11/30/2015 33122-SVHDTHE NAIL, 6 OR MORE 08/25/2014 63915-IOMSSGB NAIL, 6 OR MORE 10/27/2014 61990-PHBKWSP NAIL, 6 OR MORE 01/12/2015 65451-DHCYIND NAIL, 6 OR MORE 03/16/2015 36705-DLTPQGK NAIL, 6 OR MORE 05/25/2015 32147-COOFDYH NAIL, 6 OR MORE 06/18/2012 12401-JWYCPYM NAIL, 6 OR MORE 08/27/2012 61586-ZBSSRCW NAIL, 6 OR MORE 01/04/2013 13517-IKHLDGV NAIL, 6 OR MORE 03/25/2013 38212-BWMRIZK NAIL, 6 OR MORE 06/17/2013 20634-QUCRFNN NAIL, 6 OR MORE 08/26/2013 70696-MFWNQCP NAIL, 6 OR MORE 12/02/2013 32030-CSNAUXI NAIL, 6 OR MORE 02/10/2014 09842-ZQAJKFA NAIL, 6 OR MORE 06/06/2014 18212-DCDOTBL NAIL, 6 OR MORE 12/19/2016 07961-TAUJDJP NAIL, 6 OR MORE 04/03/2017 13139-UNRCDMW NAIL, 6 OR MORE 06/05/2017 11141-GCXOHIN NAIL, 6 OR MORE 08/14/2017 19897-LPGDMMW NAIL, 6 OR MORE 10/23/2017 77373-PYPUYCU NAIL, 6 OR MORE 01/01/2018 40750-GVWNIEX NAIL, 6 OR MORE 05/11/2018 83235-TPJHEBD NAIL, 6 OR MORE 07/27/2018 77398-SNPOZKG NAIL, 6 OR MORE 10/12/2018 53075-VXDBVVG NAIL, 6 OR MORE 01/14/2019 56594-SCXUBCT NAIL, 6 OR MORE 04/08/2019 47879-GUBAJJU NAIL, 6 OR MORE 08/16/2019 75991-SKTULBF NAIL, 6 OR MORE 10/25/2019 34235-IMKIPDU NAIL, 6 OR MORE 01/03/2020 77183-UJMOHPI NAIL, 6 OR MORE 05/01/2020 17045-UAMGDIO NAIL, 6 OR MORE 08/17/2020 55350-IULZNUX NAIL, 6 OR MORE 10/30/2020 20069-XVYZUII NAIL, 6 OR MORE 01/01/2021 04724-IMNVWCJ NAIL, 6 OR MORE 03/29/2021 26697-KNOOBBF NAIL, 6 OR MORE 06/14/2021 52126-PXATBPQ NAIL, 6 OR MORE 11/29/2021 29345-HDTWJUP NAIL, 6 OR MORE 02/11/2022 44801-NLUNCVD NAIL, 6 OR MORE 06/10/2022 94320-WCEHUIQ NAIL, 6 OR MORE 09/13/2021 42563-VZULANA NAIL, 6 OR MORE 08/22/2022 74431-NQZKKCL NAIL, 6 OR MORE 10/31/2022 10680-DGGQPZV NAIL, 6 OR MORE 01/09/2023 89160-XQRZMGA NAIL, 6 OR MORE 03/24/2023 04954-CQHBVKR NAIL, 6 OR MORE 06/05/2023 34419-KPXZMTW NAIL, 6 OR MORE 09/29/2023 78562-RTOQOIF NAIL, 6 OR MORE 02/19/2024 44019-WHSHQOX NAIL, 6 OR MORE 05/03/2024 80853-OBQLEGB NAIL, 6 OR MORE 07/15/2024 72797-Orjsunmt Plate 07/15/2024 34578-Wyfpcgfy Plate 09/29/2023 13284-Redocfid Plate 05/03/2024 79925-Wlvssmqc Plate 02/19/2024 45685-Fquwcryy Plate 06/05/2023 93920-Ilrnavfk Plate 10/30/2020 57217-Ayvnbrgu Plate 03/24/2023 38659-Bvnfkovp Plate 08/22/2022 59936-Fvvexpnd Plate 09/13/2021 14841-Ixpbiuue Plate 06/10/2022 14452-Amzhbtwe Plate 02/11/2022 28238-Yzmehule Plate 11/29/2021 98039-Njqsvsml Plate 06/14/2021 01614-Vxfdhvjp Plate 03/29/2021 76467-Hwekkaiu Plate 05/01/2020 61366-Dnyxpgoc Plate 06/06/2014 48922-Otevvehy Plate 02/10/2014 70470-Gxycoabq Plate 12/02/2013 88710-Imbqrfhp Plate 05/25/2015 49849-Lwnwpbnp Plate 03/16/2015 11226-Adeyzxmi Plate 01/12/2015 53988-Jocxjfhy Plate 01/04/2013 48738-Pkxvvbcu Plate 08/21/2015 76442-Twpcjpyt Plate 11/30/2015 14457-Vsndlgsf Plate Each Additional 37871-Fjrjrfkl Plate Each Additional 65282-Lwhcjwza Plate Each Additional 11/2014 41215-Goyafuyy Plate Each Additional 08/2015 70677-Xtidpaug Plate Each Additional 30014-Ohrqaxeo Plate Each Additional 57764-Lsrmbflv Plate Each Additional 50650-Lztlaxxy Plate Each Additional 29488-Pwdmxdsj Plate Each Additional 02116-Qdqawnni Plate Each Additional 81443-Muneagmo Plate Each Additional 72821-Wuvtkdam Plate Each Additional 50833 I&D ABSCESS- SIMPLE,SINGLE 015 52885-OEQV SKIN LESIONS, OVER 4 06/10/20 22 43407-OFNE SKIN LESIONS, OVER 4 08/22/20 22 66622-FSXS SKIN LESIONS, OVER 4 03/24/20 23 55258-YEXF SKIN LESIONS, OVER 4 01/09/20 23 87276-FVPC SKIN LESIONS, OVER 4 10/31/20 22 68692-JFME SKIN LESIONS, OVER 4 02/12/20 22 31841-FLHD SKIN LESIONS, OVER 4 06/05/20 23 49763-SCDD SKIN LESIONS, OVER 4 09/29/20 23 41257-SHYM SKIN LESIONS, OVER 4 02/19/20 24 17494-JSTK SKIN LESIONS, OVER 4 05/03/20 24 71925-BPER SKIN LESIONS, OVER 4 07/15/20 24 34979-XGSI SKIN LESIONS, 2 TO 4 11/29/19 22 13803-ALYS SKIN LESIONS, 2 TO 4 03/29/20 21 41625-SSOQ SKIN LESIONS, 2 TO 4 01/01/20 21 01135-JBKE SKIN LESIONS, 2 TO 4 06/14/20 21 34789-QCHM SKIN LESIONS, 2 TO 4 09/13/20 21 21453-JIJC SKIN LESIONS, 2 TO 4 05/01/20 39015-NRSH SKIN LESIONS, 2 TO 4 01/03/20 57747-ZGWN SKIN LESIONS, 2 TO 4 10/30/20 20 57889-SGGH SKIN LESIONS, 2 TO 4 08/17/20 35927-YYTD SKIN LESIONS, 2 TO 4 10/25/20 19 57153-MGMN SKIN LESIONS, 2 TO 4 08/16/20 19 88049-KPKS SKIN LESIONS, 2 TO 4 04/08/20 19 76086-LPZW SKIN LESIONS, 2 TO 4 01/15/20 19 44887-NSDS SKIN LESIONS, 2 TO 4 10/12/20 18 47083-GAGE SKIN LESIONS, 2 TO 4 07/27/20 18 62083-MQFV SKIN LESIONS, 2 TO 4 05/11/20 18 83899-VYAC SKIN LESIONS, 2 TO 4 01/01/20 18 39437-HOUA SKIN LESIONS, 2 TO 4 10/23/20 17 21980-CSGS SKIN LESIONS, 2 TO 4 08/14/20 17 64932-GYZH SKIN LESIONS, 2 TO 4 06/05/20 17 24332-HRIO SKIN LESIONS, 2 TO 4 12/19/19 17 09038-FFEZ SKIN LESIONS, 2 TO 4 04/03/20 17 97972-JMZY SKIN LESIONS, 2 TO 4 08/21/20 15 79811-VQCY SKIN LESIONS, 2 TO 4 11/30/19 16 01047-XNWX SKIN LESIONS, 2 TO 4 09/16/20 16 09620-CNRM SKIN LESIONS, 2 TO 4 07/08/20 16 37206-JLXB SKIN LESIONS, 2 TO 4 04/08/20 16 66297-PSOQ SKIN LESIONS, 2 TO 4 02/01/20 16 28973-RKFM SKIN LESIONS, 2 TO 4 05/25/20 15 22171-FFUV SKIN LESIONS, 2 TO 4 03/16/20 15 52026-UPOK SKIN LESIONS, 2 TO 4 01/12/20 15 26075-OEEJ SKIN LESIONS, 2 TO 4 10/27/20 14 37708-RZHH SKIN LESIONS, 2 TO 4 08/25/20 14 77186-JEWZ SKIN LESIONS, 2 TO 4 06/18/20 12 95216-GLPQ SKIN LESIONS, 2 TO 4 03/25/20 13 11292-BNZD SKIN LESIONS, 2 TO 4 01/04/20 13 70018-GVON SKIN LESIONS, 2 TO 4 08/27/20 12 49818-YANC SKIN LESIONS, 2 TO 4 07/25/20 11 41868-UARI SKIN LESIONS, 2 TO 4 10/03/20 11 60081-IORC SKIN LESIONS, 2 TO 4 12/23/19 12 30669-MQAY SKIN LESIONS, 2 TO 4 03/19/20 12 09078-SRSH SKIN LESIONS, 2 TO 4 06/06/20 14 97965-MMZD SKIN LESIONS, 2 TO 4 02/11/20 14 09343-XLST SKIN LESIONS, 2 TO 4 12/02/19 14 60329-REYO SKIN LESIONS, 2 TO 4 08/26/20 13 46235-KMSG SKIN LESIONS, 2 TO 4 06/17/20 13 V7349-AWFUWGER DYSTROPHIC NAILS ANY # D2136-IGLYAUFL DYSTROPHIC NAILS ANY # I7719-TQUXIPUK DYSTROPHIC NAILS ANY # T6953-XSYHOBUM DYSTROPHIC NAILS ANY # Insurance Providers Payer Name Payer Address Payer Phone Subscriber Number Group Number Insured Name Patient Relationship to Insured Coverage Start Date Coverage End Date Medicare [employer] [address] [facility] [place] [address] [id number] Lisa Holliday Self - patient is the insured [facility] [address] [place] [address] [phone] [id number] Lisa Holliday Self - patient is the [...] replacement Surgery 03/31 Hospitalization History Reason Date(Month/Year) [facility] [place] ER - BP was Low / Heart blockage few hrs 11/2022 Vertigo 07/2012 Vertigo. 10/2011
--- OUTSIDE RECORDS SUMMARY | 2024-12-23 12:49 | XMS_ITS | Data Portability ---
Author Organization [place] - [facility], [facility] Address [address] [place] [address] Care Team Providers Care Awning Maker Name Role Phone PHILIPP OVIEDO Primary Care Provider [facility] OTHER [phone] Assessment Encounter Date Assessment Date Assessment LastModified by Organization Details LastModified Time 11/30/2018 11/30/2018 Overview/History : 83-year-old female, who is new to [facility], with a past medical history includes hypertension, hypothyroidism, diabetes, hearing loss, was evaluated for concerns of a possible foreign body in her right ear canal. The patient wears hearing aids and thought she felt a piece of silicone stuck in her ear. She denies any increased hearing loss. Exam: Elderly female in no acute distress. Right EAC small amount of cerumen. TM intact. No foreign body seen. DDx considered, but not limited to: Foreign body in ear: None seen. Cerumen impaction: No impaction seen. small amt cerumen. OM: No pain. No erythema. Work up/Results: Plan/Discussion: Exam did not reveal any evidence of impaction. Patient instructed to follow up with her PCP as needed. In order to obtain further information and compare any laboratory results/values, I have accessed patient records on the [employer]. This information was pertinent in my medical decision making today. Time On Scene with Patient: 00:29:06 [email or web address] Not available 11/30/2018 20:42:40 08/09/2020 08/09/2020 Overview/History: This is an 84-year-old female that is known to [facility] but new to this provider. [facility] were contacted today as the patient had been having elevated blood sugars. The patient tells me this has been going on for the past few days. She denies any significant dietary indiscretions or any symptoms of illness. She was nauseous this morning but this has resolved. She tells me she had initially checked her blood sugar this morning and her meter did not give her a reading because her results were so high. She has been checking it throughout the day and has been in the 300s. She is continuing to follow the sliding scale insulin regimen that was ordered by her PCP. She also is concerned about her left ear, she is concerned she might have an infection. She is denying otalgia but says she gets infections in this year sometimes. She also has some inconsistent and somewhat vague complaints about right lower extremity pain that is present sometimes but not always. She took 2 doses of Tylenol with little relief. No saddle numbness or incontinence. Exam: On exam patient is awake and alert, afebrile and he was stable. She is very hard of hearing, she also did not wear her hearing AIDS the first half of the visit, this improved once your hearing aids were inner ears. Lungs clear to auscultation bilaterally, heart rate regular. She is able to ambulate with her walker with a steady gait. No ecchymoses of the right lower extremity or evidence of trauma. No fruity breath. Appear to be well hydrated. DDx considered, but not limited to:Cause of patient's hyperglycemia is unclear, could be due to dietary indiscretion though the patient denies this. No evidence of any systemic infection as patient is hemodynamically stable and afebrile. Diabetic ketoacidosis consider however the patient has a blood sugar of less than 500 mg/dL, and no evidence of acidosis in her chemistries. Otitis media considered of the left ear however there was no evidence of infection. In regards her right lower extremity pain. This is likely due to sciatica versus arthritis. The patient has had 2 hip replacements so likely has a diagnosis of osteoarthritis. Cauda equina considered however patient is a 9 saddle numbness or incontinence. Work up/Results: Chem 8 -Showing normal electrolytes, no evidence of acute kidney injury or DKA. Plan/Discussion:I discussed with the patient that her blood sugar on my check was 387 mg/dL, I did have her check on her home glucometer in our results were comparable. I have asked her to continue to follow her sliding scale as she was previously prescribed by her PCP and to continue to monitor her blood sugars. If they remained overall elevated she should contact her primary care provider in regards to this either increasing her Lantus or increasing her sliding scale. I discussed with her signs and symptoms of diabetic ketoacidosis and if she were to experience these she should go to the emergency department. I also told her that if she will check her blood sugar again her meter was unable to read the number that she should go to the hospital. I discussed with her that her complaints of leg and hip discomfort could be due to arthritis or sciatica. I had given her prescription for topical diclofenac gel to apply to areas that are uncomfortable for her. I have also encouraged her to continue take Tylenol though she does not think this has helped her much. I did discuss with the patient's nurse that [facility] would check lab work to evaluate her, no indication for IV fluids at this time. I also discussed that [facility] does not carry insulin and that management of the patient's insulin regimen would be deferred to primary care provider. In order to obtain further information and compare any laboratory results/values, I have accessed old patient records. This information was pertinent in my medical decision making today. Proper Personal Protective Equipment (PPE), including gloves, eye protection and masks were donned and doffed appropriately and all equipment cleaned using approved technique with germicidal disposable wipes prior to and after care of this patient according to [facility]'s infection prevention protocols. Lab Results BMP + ionized calcium, serum or plasma glu: 387mg/dL ref: 70-105 BUN: 36mg/dL ref: 8-26 crea: 1.0mg/dL ref: 0.6-1.3 Na: 131mmol/L ref: 138-146 K: 4.9mmol/L ref: 3.5-4.9 cL: 95mmol/L ref: 98-109 TCO2: 21mmol/L ref: 24-29 angap: 20mmol/L ref: 10-20 ica: 1.21mmol/L ref: 1.12-1.32 HCT: 40%pcv ref: 37-47 Hb: 13.6g/dL ref: 12-17 Time On Scene with Patient: 00:48:48 Not available 08/09/2020 21:29:37 Plan of Treatment Reminders Order Date Submit Date Provider Last Modified By Organization Details Last Modified Time Details Appointments None recorded. Lab BMP + ionized calcium, serum or plasma 2019 020 [facility], [place], [address], 0 16:03:38 Referral None recorded. Procedures None recorded. Surgeries None recorded. Imaging None recorded. Medication Orders diclofenac 1 % topical gel 2019 020 INTERFACE [id number], [address] [place], [address], 0 16:10:01 Patient TargetsNo targets recorded. Patient Instructions Encounter Date Encounter Id Patient Instructions Last Modified By Organization Details Last Modified Time 11/30/2018 [id number] No evidence of a ny objects in your ear. Follow up with your ENT/PCP as needed. Thank you for your visit with [facility] today. We cannot always find the exact cause of your symptoms during your initial visit. Please follow up with your primary care provider or specialist to be rechecked or seek medical attention if your symptoms do not go away or get worse. If you develop any new or worsening symptoms and need after hours care, please go to nearest ER and/or call 911. If you have additional concerns or develop a change in your condition between 8am-10pm, please call [facility] at [phone] to help navigate your care. Not available 11/30/2018 19:46:27 08/09/2020 [id number] WE CAME TO SEE [facility] TODAY FOR CONCERNS OF ELEVATED BLOOD SUGAR, YOUR NURSE STEWART INDICATED TO ME ON THE PHONE THAT YOUR INSULIN LEVELS HAVE BEEN BEING ADJUSTED TODAY BY YOUR PCP I CHECKED LABWORK TODAY AND YOUR BLOOD SUGAR WAS 387, YOU DID NOT HAVE EVIDENCE OF DIABETIC KETOACIDOSIS. YOU ARE TOLERATING FLUIDS AND ARE DENYING ANY NAUSEA AT THIS TIME I WOULD HAVE YOU CONTINUE TO FOLLOW YOUR SLIDING SCALE INSULIN YOU HAVE BEEN AND FOLLOW UP WITH YOUR PCP REGARDING ADJUSTING YOUR INSULIN DOSAGE IF YOU CHECK YOUR BLOOD SUGAR AND IT IS OVER 500 YOU SHOULD GO TO THE EMERGENCY ROOM. IF YOU START TO HAVE NAUSEA AND ARE UNABLE TO TOLERATE FOOD YOU SHOULD GO TO THE EMERGENCY ROOM. Thank you for your visit with [facility] today. We cannot always find the exact cause of your symptoms during your initial visit. Please follow up with your primary care provider or specialist within 12-24 hours within 24-48 hours to be rechecked or seek medical attention if your symptoms do not go away or get worse. If you develop any new or worsening symptoms and need after hours care, please go to nearest ER and/or call 911. If you have additional concerns or develop a change in your condition between 8am-10pm, please call [facility] at [phone] to help navigate your care. [email or web address] Not available 08/09/2020 16:09:54 Reason for Referral None Reported. Results Created Date Observation Date Name Description Value Unit Range Abnormal Flag Note LastModifiedBy Organization Detail LastModifiedTime 08/09/2008/09/2020 BMP + ioniz ed calci um, serum or plasm a glu 387 mg/dL 70-105 Not Available [address] [place], [address], 08/09/2020 16:03:38 08/09/20 20 08/09/2020 BMP + ioniz ed calci um, serum or plasm a BUN 36 mg/dL 8-26 Not Available [facility] [address] [place], [address], 08/09/2020 16:03:38 08/09/20 20 08/09/2020 BMP + ioniz ed calci um, serum or plasm a crea 1.0 mg/dL 0.6-1. 3 Not Available [facility] [address] [place], [address], 08/09/2020 16:03:38 08/09/20 20 08/09/2020 BMP + ioniz ed calci um, serum or plasm a Na 131 mmol/ L 138-14 6 Not Available [facility] [address] [place], [address], 08/09/2020 16:03:38 08/09/20 20 08/09/2020 BMP + ioniz ed calci um, serum or plasm a K 4.9 mmol/ L 3.5-4. 9 Not Available [address], [address], 08/09/2020 16:03:38 08/09/20 20 08/09/2020 BMP + ioniz ed calci um, serum or plasm a cL 95 mmol/ L 98-109 Not Available [address], [address], 08/09/2020 16:03:38 08/09/20 20 08/09/2020 BMP + ioniz ed calci um, serum or plasm a TCO2 21 mmol/ L 24- Not Available [address], [address], 08/09/2020 16:03:38 08/09/20 20 08/09/2020 BMP + ioniz ed calci um, serum or plasm a angap 20 mmol/ L 10-20 Not Available [address], [address], 08/09/2020 16:03:38 08/09/20 20 08/09/2020 BMP + ioniz ed calci um, serum or plasm a ica 1.21 mmol/ L 1.12-1 .32 Not Available [address], [address], 08/09/2020 16:03:38 08/09/20 20 08/09/2020 BMP + ioniz ed calci um, serum or plasm a HCT 40 %pcv 37-47 Not Available [address], [address], 08/09/2020 16:03:38 08/09/20 20 08/09/2020 BMP + ioniz ed calci um, serum or plasm a Hb 13.6 g/dL 12-17 Not Available [address], [address], 08/09/2020 16:03:38 Result Notes None recorded. Procedures Surgical History Date Name Laterality Status Provider Name and Address Organization Details Recorded Time 08/09/20 20 Venipuncture - DH completed DERRELL SANTANA NP [address], [place], [address], [place] [facility] 08/09/2020 18:34:12 Imaging Results None recorded. Procedure Notes None recorded. Medical Equipment None Reported. Allergies No known drug allergies Medications Name Sig Start Date Stop Date Status Note LastModified by Organization Details LastModified Time nifedipine ER 30 mg tablet,exte nded release 24 hr 11/30 completed Not Available Not Available Not Available celecoxib 200 mg capsule 11/30 completed Not Available Not Available Not Available amoxicillin 500 mg capsule 08/09 completed Not Available Not Available Not Available metformin 500 mg tablet active Not Available Not Available Not Available cyanocobala min (vit B-12) ER 1,000 mcg tablet,exte nded release TAKE 1 TABLET BY MOUTH EVERY DAY active Not Available Not Available No t Available azithromyci n 250 mg tablet active Not Available Not Available Not Available lisinopril 20 mg tablet active Not Available Not Available Not Available clonazepam 0.5 mg tablet active Not Available Not Available Not Available nifedipine ER 30 mg tablet,exte nded release 11/30 completed Not Available Not Available Not Available divalproex 500 mg tablet,idalmis yed release active Not Available Not Available Not Available sulfamethox azole 800 mg-trimetho prim 160 mg tablet 11/30 completed Not Available Not Available Not Available levothyroxi ne 100 mcg tablet active Not Available Not Available Not Available ofloxacin 0.3 % ear drops active Not Available Not Available Not Available pravastatin 80 mg tablet active Not Available Not Available Not Available divalproex ER 500 mg tablet,exte nded release 24 hr active Not Available Not Available Not Available hydrochloro thiazide 25 mg tablet active Not Available Not Available No t Available metoprolol succinate ER 25 mg tablet,exte nded release 24 hr active Not Available Not Available Not Available tobramycin 0.3 %-dexametha sone 0.1 % eye drops,suspe nsion active Not Available Not Available Not Available Asprin Ec Low Dose 81 mg tablet,idalmis yed release Take 1 tablet every day by oral route. active Not Available Not Available No t Available Novolog FlexPen U-100 Insulin aspart 100 unit/mL (3 mL) subcutaneou s PLEASE SEE ATTACHED FOR DETAILED DIRECTION S active Not Available Not Available No t Available nitrofurant oin monohydrate /macrocryst als 100 mg capsule 11/30 completed Not Available Not Available Not Available BD Ultra-Fine Mini Pen Needle 31 gauge x 3/16 11/30 completed Not Available Not Available Not Available Depakote active Not Available Not Avai lable Not Available FreeStyle Lite Strips USE TO TEST BLOOD SUGAR 3 TIMES A DAY active Not Available Not Available No t Available Lantus Solostar U-100 Insulin 100 unit/mL (3 mL) subcutaneou s pen INJECT 17 UNITS SUBCUTANE OUSLY DAILY. ROTATE INJECTION SITES active Not Available Not Available No t Available diclofenac 1 % topical gel APPLY 2 GRAMS TO THE AFFECTED AREA(S) BY TOPICAL ROUTE 4 TIMES PER DAY 2019 active Not Available Not Available Not Avai lable Fluad Quad [id number](6 5yr up)(PF) 60 mcg (15 mcg x 4)/0.5mL IM syringe PHARMACY ADMINIST[facility] active Not Available Not Available No t Available Vitals Date Recorded Heart rate Oxygen saturation Oxygen saturation in Arterial blood by Pulse oximetry Body temperature Respiratory rate Systolic blood pressure Diastolic blood pressure Provider Name and Address Organization Details Last Updated DateTime 0 66 /min 97 % 97 % 97.5 [degF] 16 /min 146 mm[Hg] 70 mm[Hg] Not Available [facility] 0 15:35:25 Date Recorded Oxygen saturation Oxygen saturation in Arterial blood by Pulse oximetry Heart rate Body temperature Respiratory rate Systolic blood pressure Diastolic blood pressure Provider Name and Address Organization Details Last Updated DateTime 9 99 % 99 % 80 /min 98.2 [degF] 16 /min 130 mm[Hg] 62 mm[Hg] Not Available [facility] 9 18:00:59 Social History Question Answer Notes LastModified by Organizat ion Details LastModified Time Tobacco Smoking Status Former Smoker DOMENICO JOHN, KAELYN [address], [place], [address], [place] [facility] 11/30/2018 18:10:06 Do You Have An Advance Directive? Yes Information not available 11/30/2018 Within The Past 12 Months, Has It Happened That The Food You Bought Just Didn't Last And You Didn't Have Money To Get More. Normal [facility] Information not available 11/30/2018 Within The Past 12 Months, Have You Worried That Your Food Would Run Out Before You Got Money To Buy More. No: Trouble Affording Healthy Foods [facility] – Information not available 11/30/2018 Fall Risk: Do You Feel Unsteady When Standing Or Walking? No [facility] – Information not available 11/30/2018 Marital Status [facility] – Information not available 11/30/2018 What Was The Date Of Your Most Recent Tobacco Screening? 11/30/2018 Information not available 06/09/2019 How Much Tobacco Do You Smoke? 1 PPW [facility] – Information not available 11/30/2018 How Many Years Have You Smoked Tobacco? 15 [facility] – Information not available 11/30/2018 Sex: Unknown Functional Status None recorded. Mental Status None recorded. Family History Relationship Description Onset Age of this Age Resolved Age Notes LastModified by Organization Details LastModified Time Mother Coronary arterioscler osis [facility] [email or web address] Not available 11/30 18:09:56 Medical History Condition Response Diabetes Y Coronary Artery Disease N High Cholesterol Y Pulmonary Embolism N Cancer N Hypertension Y Stroke N COPD N Depression N Asthma N Kidney Disease N Gynecological HistoryNo gynecological history recorded. Obstetrics History GPAL:G 0 P 0 0 0 0 Past Encounters Encounter ID Performer Location Encounter Start Date Encounter Closed Date Diagnosis/Indication Diagnosis SNOMED-CT Code Diagnosis ICD10 Code Diagnosis Note [id number] DOMENICO JOHN NP [facility] [address] [place] [address] 11/30/2018 17:52:50 12/01/2018 16:36:34 Foreign body in ear [id number] T16.1XXA [id number] DERRELL SANTANA NP [facility] [address] [facility] [place] [address] 08/09/2020 15:21:51 08/10/2020 14:27:21 Hyperglycemia 86184441 R73.9 Right side sciatica 3202 [id number] 55306 M54.31 Health Concerns Section Related Observation LastModified by Organization Detai ls LastModified Time None Recorded Concern Status LastModified by Organization Details LastModified Time None Recorded Advance Directives Directive Y: Payers Encounter Date Sequence Insurance Name Policy Number Policy Genao Covered Member ID Genao Member ID Guarantor Name 11/30/2018 1 MEDICARE B-[place]: [facility] Lisa Holliday [id number] Lisa Gregoryjose 11/30/2018 2 [facility] (MEDICARE SUPPLEMENT) Lisa Holliday [id number] Lisa Holliday 08/09/2020 2 [facility] (MEDICARE SUPPLEMENT) Lisa Holliday [id number] Lisa Holliday 08/09/2020 1 [place]ARE B-[place]: [facility] Lisa Holliday [id number] Lisa Holliday Notes Date Note Type Note Provider Name and Address Organization Details Recorded Time 11/30/2018 text/html 83-year-old female, who is new to [facility] was evaluated for possibility of foreign body in the right ear. The patient is hard of hearing and wears hearing aids to both years. While cleaning her hearing aids earlier she felt as if the silicone earpiece became embedded in her ear canal. She denies any other complaints. DOMENICO JOHN NP [address] [place], [address], [place] [facility] 12/08/2018 19:26:11 08/09/2020 text/html This is an 84-year-old female that is known to [facility] but new to this provider. She has a medical history significant for diabetes, hypertension and hyperlipidemia. The transplant case manager from her PCP office had contacted [facility] because the patient had called in today with complaints of elevated blood sugar. The patient tells me that she checked her blood sugar this morning and her sugar was too high to read on her home monitor. She had contacted her PCP and had been speaking with the nurse in the office throughout the day regarding her blood sugars. I did speak on the phone with the patient's nurse, she indicated that the patient also had complaints of right lower extremity pain. She was concerned the patient might need additional insulin or IV fluids. I did inform both the nurse and the patient that [facility] does not carry insulin nor do we generally prescribe insulin. The patient also offered that she is concerned about her left ear. She is concerned she may have an infection there so she is not wearing her hearing aide. She is denying any otalgia. Her nurse told me over the phone that the patient already has p.r.n. antibiotic drops for this ear. The patient also tells me that she had her ears cleaned out recently. DERRELL SANTANA, KAELYN [address], [place], [address], [place] [facility] 08/09/2020 21:29:50 OBGyn Episode No OBEpisode recorded.
--- OUTSIDE RECORDS SUMMARY | 2024-12-23 12:49 | XMS_ITS ---
Author Organization [facility] Address [address] [place] [address] Care Team Providers Care Land Lease Information Clerk Name Role Phone Kristin MAGALLANES, Janes Primary Care Provider Fernando Wall Unavailable [phone] Encounters Encounter Location Date Provider Diagnosis [facility] [address] [place] [address] 10/18/2024 Fernando Lim Plan Of Treatment No Information Progress Notes * Lisa HOLLIDAY ADOB:[birth year] (89 yo F)Acc No.[id number]:10/18/2024 Progress Note Patient:?Lisa HOLLIDAY Provider:?Fernando Lim DPM :1935???Age:88 Y???Sex:Female D ate:10/18/2024 Address: [place], [place] Pcp:Janes Foster MD Subjective: * Chief Complaints: [...] DPM Date:?2023 Generated for Vii jesus manuel/Fabarg/eTransmitting on:?12/23/2024 12:48 PM EST
--- OUTSIDE RECORDS SUMMARY | 2024-12-23 12:49 | XMS_ITS ---
Author Organization [facility] Address [address] [place] [address] Care Team Providers Care Supervisor Functional Testing Name Role Phone Janes Foster MD Primary Care Provider Fernando Wall Unavailable [phone] REASON FOR VISIT cx 10/18 Encounters Encounter Location Date Provider Diagnosis [address] [address] 10/17/2024 Fernando Lim Plan Of Treatment No Information Progress Notes * TIFFANYYuli Lisa ADOB:[birth year] (89 yo F)Acc No.[id number]:10/17/2024 Patient:?Lisa HOLLIDAY :1935???Age:88 Y???Sex:Female Address: [place], [address] * true * Date:? Generated for Printi jesus manuel/Jonnie/eTransmitting on:?12/23/2024 12:48 PM EST
== END 2024-12-22 11:52 | disposition home or self-care (01) ==
LOC: HO.HOSX 11:51
PROVIDERS: Visit Provider Physician Assistant
DX: M79.602 Pain in left arm (principal); Z96.642 Presence of left artificial hip joint
CPT/HCPCS: 73552; 99212

== ENCOUNTER 2025-01-17 14:25 | Emergency (ER) | payer MEDICARE, OTHER, SELFPAY ==
--- NOTE | ~2025-01-17 | CT_ITS ---
CLINICAL HISTORY: altered mental status CT Head Without Contrast: Comparison: None Findings: Cortical sulci and cisterns are enlarged are symmetric. A benign completely calcified 6 mm meningioma Mister located in the dura of the parafalcine left frontal lobe. Basal ganglia are unremarkable No shift in midline structures No intraparenchymal bleeding or abnormal extra axial blood fluid collections Normal pituitary size Clear paranasal sinuses. The mastoid air cells and middle ear cavities are clear. Unremarkable orbital structures No depressed fractures Impression: Chronic involutional volume loss with no acute findings. This document has been electronically signed by: Charles Aquino MD on 01/17/2025 17:51:53
--- NOTE | ~2025-01-17 | XR_ITS ---
EXAMINATION: XR CHEST CLINICAL INFORMATION: chest pain COMPARISON: October 31, 2024 TECHNIQUE: Frontal view of the chest was obtained. FINDINGS: Haziness in the left lower hemithorax. No pneumothorax. Cardiomediastinal silhouette size is prominent. Multilevel thoracolumbar spondylosis. Degenerative changes in the shoulders. XR/XR chest 1V IMPRESSION: Questionable atelectasis versus airspace disease in the lingula. Electronically signed by: Jerome Gutierrez MD 01/17/2025 03:22 PM [facility]
--- NOTE | 2025-01-17 14:56 | ECG_ITS ---
Test Reason : chest pain Blood Pressure : */* mmHG Vent. Rate : 54 BPM Atrial Rate : 54 BPM P-R Int : 196 ms QRS Dur : 152 ms QT Int : 522 ms P-R-T Axes : 65 -9 2 degrees QTcB Int : 495 ms Sinus bradycardia Left bundle branch block Abnormal ECG When compared with ECG of 31-Oct-2024 18:52, Premature atrial complexes are no longer Present Inverted T waves have replaced nonspecific T wave abnormality in Inferior leads Referred By: Darron Corrales Electronically Signed By: RAMY SKELTON MD
[2025-01-17 15:01] VITALS: BP 110/49; BP 90/40; PULSE 53; PULSE 54; RESP 18; TEMP 36.6; O2SAT 94; O2SAT 97; BMI 28.9
[2025-01-17] MEDS: 0.9 % Sodium Chloride 1,000 ML 999 ML IVCONT ×2 (15:08→17:25)
--- NOTE | 2025-01-17 15:12 | ED_ITS ---
HPI - General Adult General Chief complaint: General Medical Stated complaint: UNRESP,ANDRIY DURING REHAB @ SNF,RESP NOW, PER EMS Time Seen by Provider: 01/17/25 14:49 Source: patient and EMS Mode of arrival: EMS History of Present Illness HPI narrative: This is 89 years old female brought in by ambulance from rehab and during physical therapy she became lightheaded almost unresponsive. No syncope. Blood pressure was low but upon development manager arrival she was feeling better. She arrived awake alert and oriented with no complaint. Patient has a history of left bundle branch block, diabetes, hypertension. She has a an order for DNR DNI Onset (ago): hour(s) (1) Radiation: non-radiation Severity: moderate Relieving factors: none Exacerbating factors: none Related Data Home Medications ?Medication ?Instructions ?Recorded ?Confirmed insulin aspart U-100 100 unit/mL See Protocol subcut TIDAC 04/03/21 11/24/24 (3 mL) subcutaneous pen insulin glargine 100 unit/mL (3 24 unit subcut DAILY 04/03/21 11/24/24 mL) subcutaneous pen metoprolol succinate 25 mg 25 mg PO DAILY 02/12/23 11/24/24 tablet,extended release 24 hr pravastatin 80 mg tablet 80 mg PO DAILY 02/12/23 11/24/24 acetaminophen 325 mg tablet 325 mg PO DAILY PRN Pain/Fever 10/31/24 11/24/24 (Tylenol) levothyroxine 112 mcg tablet 112 mcg PO DAILY@0600 10/31/24 11/24/24 lisinopril 10 1 tab PO DAILY 10/31/24 11/24/24 mg-hydrochlorothiazide 12.5 mg tablet Previous Rx's ?Medication ?Instructions ?Recorded enoxaparin 30 mg/0.3 mL 30 mg (0.3 mL) subcut Q24H #0 mL 11/04/24 subcutaneous syringe Allergies Allergy/AdvReac Type Severity Reaction Status Date / Time adhesive tape [Adhesive Tape] Allergy Unknown SKIN Verified 01/17/25 15:05 REDNESS Review of Systems 2 ENT: Reports system reviewed and no additional complaints, except as documented Cardiovascular: Cardiovascular: Reports no additional cardiovascular complaints Respiratory: Respiratory: Reports no additional respiratory complaints PMFSH Past Medical History Medical History Patellofemoral arthritis of right knee Diabetes mellitus Left bundle branch block CAD (coronary artery disease) Surgical History Hx of mastectomy Hx of mastectomy Social History Social History Household Members: None Housing: House Do you presently have visiting nurse or other home services: No Patient Tobacco Use Status: Never used Tobacco Smoked in Last 30 Days: No Use of substances other than those prescribed or required for medical reasons: No Advance Directives: Yes Advance Directives on File: Yes Advance Directives Date on File: 11/01/24 Do you have a plan to hurt others: No Plan service: No Current occupational status: retired 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 Exam ED Vital Signs: Vital Signs - 24 hr 01/17/25 15:01 01/17/25 16:28 Temperature 97.8 F 97.7 F Pulse Rate 54 56 Respiratory Rate 18 18 Blood Pressure 110/49 L 151/50 H Pulse Oximetry 94 96 Oxygen Delivery Method Room Air Room Air BMI result Body Mass Index 28.9 No acute distress awake alert oriented stable with vital sign at this point Const General: cooperative, comfortable, no acute distress, well developed and alert Nutritional Appearance: well nourished Orientation/consciousness: patient oriented x3 HENMT Head: Yes normal to inspection General nose exam: Normal external nose present Face and sinus: Yes normal facial exam Mouth: Normal oral and palatal mucosa present Throat: Yes posterior oropharynx normal Neck Neck: Yes normal visual inspection Chest Chest palpation & inspection: normal inspection of the chest Resp Effort & Inspection: normal respiratory effort Cardio Jugular venous distension: no JVD Palpation: normal PMI Rate: regular rate Rhythm: regular rhythm GI Inspection: Yes normal to inspection Palpation (GI): Soft to palpation, not firm, nontender and no guarding Auscultation: normal bowel sounds Skin General skin exam: no rashes or lesions noted, elasticity normal and turgor normal Rashes: no rashes Neuro General: patient oriented x3 Cranial nerves: Yes CN's II-XII intact bilaterally Extrem General: Yes normal to inspection, Yes full ROM and Yes capillary refill normal Course Reevaluation(s) Reevaluation #1: Patient remained asymptomatic no complaint at this time we will continue to monitor. Blood sugar noted we will give Humalog 5 units and IV fluids Time: 16:25 Reevaluation #2: PATIENT WILL BE SIGNED OUT TO DR. LAWLER Time: 16:42 Medications Administered Discontinued Medications Generic Name Dose Route Start Last Admin Trade Name Julianne PRN Reason Stop Dose Admin Sodium Chloride 1,000 mls @ 999 mls/hr 01/17/25 15:00 01/17/25 16:24 Ns IVCONT 01/17/25 16:00 Infused .Q1H1M ANTONINA Infusion Insulin Human Lispro 5 unit 01/17/25 16:03 01/17/25 16:25 Insulin Lispro 100 Unit/Ml 3 Ml Vial SUBCUT 01/17/25 16:04 5 unit ONCE ONE Administration Medical Decision Making Medical Decision Making [facility] Narrative: Patient presented to ED with an episode of decreased level of responsiveness which now completely resolved. Stable vital signs and this point asymptomatic we will check labs EKG administer IV fluids Differential Diagnosis Differential Diagnoses: The differential diagnosis associated with the presentation includes Vasovagal episode/dehydration/anemia Admission/Observation Consideration of admission/observation: Escalation of care including admission/observation considered Lab Data [facility] Lab Attestation statement: I reviewed the patient's lab results. 01/17/25 15:25 01/17/25 15:25 Labs: Lab Results 01/17/25 Range/Units 15:25 WBC 8.5 (4.8-10.8) X10*3/uL RBC 4.20 D (4.20-5.50) X10*6/uL Hgb 10.7 L D (12.0-16.0) g/dl Hct 33.1 L D (37.0-47.0) % MCV 78.8 L (80.0-98.0) fL MCH 25.5 L (27.0-33.0) pg MCHC 32.3 (31.0-35.0) g/dl RDW 14.9 (11.0-16.0) % Plt Count 238 (160-400) X10*3/uL MPV 10.1 (9.4-12.3) fL Immature Gran % (Auto) 0.4 (0.0-0.4) % Neut % (Auto) 75.9 H (45-73) % Lymph % (Auto) 15.2 L (20-40) % Davidson % (Auto) 7.5 (2-11) % Eos % (Auto) 0.4 (0-4) % Baso % (Auto) 0.6 (0-2) % Lymph # (Auto) 1.3 (1.2-4.9) X10*3/uL Davidson # (Auto) 0.6 (0.1-1.2) X10*3/uL Eos # (Auto) 0.0 (0.0-0.4) X10*3/uL Baso # (Auto) 0.1 (0.0-0.2) X10*3/uL Abs Immat Gran (auto) 0.03 (0.00-0.03) X10*3/uL Absolute Neuts (auto) 6.5 (2.0-8.3) x10*3/uL Absolute Nucleated RBC 0.000 (0.0-0.012) X10*3/uL Nucleated RBC % (auto) 0.0 (0.0-0.2) /100WBC Sodium 132 L (135-145) mmol/L Potassium 4.2 (3.3-5.1) mmol/L Chloride 101 (96-108) mmol/L Carbon Dioxide 21 L (22-29) mmol/L Anion Gap 14 (12-20) BUN 32 H (9-16) mg/dL Creatinine 1.29 (0.5-1.4) mg/dL Estim Creat Clear Calc 31.7 Estimated GFR 39 Random Glucose 357 H* (60-115) mg/dL Calcium 9.2 D (8.4-10.2) mg/dL Total Bilirubin 0.6 (0.0-1.0) mg/dL AST 17 (5-31) U/L ALT < 6 (0-31) U/L Alkaline Phosphatase 89 (39-117) U/L Troponin I High Sens 10.8 (<3.5-17.0) ng/L Total Protein 6.7 (6.5-8.0) g/dL Albumin 3.3 L (3.5-5.0) g/dL Independent Interpretation I performed an independent interpretation of an: EKG Interpretation: Normal sinus rhythm rate 54 left bundle-branch block unchanged from prior EKG Independent Historian Clinical information obtained from an independent historian. History obtained from or confirmed by: EMS External Record Review External record reviewed: Inpatient record Chronic Conditions Patient?s care impacted by: Diabetes Discharge Plan Discharge Clinical Impression: Altered mental status Qualifiers: Altered mental status type: unspecified Qualified Code(s): R41.82 - Altered mental status, unspecified Patient Disposition: Still a Patient Prescriptions: No Action lisinopril-hydrochlorothiazide 10-12.5 mg tablet 1 tab PO DAILY acetaminophen [Tylenol] 325 mg Tablet 325 mg PO DAILY PRN (Reason: Pain/Fever) levothyroxine 112 mcg tablet 112 mcg PO DAILY@0600 enoxaparin 30 mg/0.3 mL Syringe 30 mg subcut Q24H Qty: 0 0RF insulin glargine 100 unit/mL (3 mL) insulin pen 24 unit subcut DAILY insulin aspart U-100 100 unit/mL (3 mL) insulin pen See Protocol subcut TIDAC Protocol: Insulin Correction Scale Less than or equal to 110 ---- Give (units): 0 111 to 150 Give (units): 0 151 to 200 Give (units): 2 201 to 250 Give (units): 4 251 to 300 Give (units): 6 301 to 350 Give (units): 8 Greater than 350 Give (units): 10 Call MD if Blood Glucose > : 350 metoprolol succinate 25 mg tablet extended release 24 hr 25 mg PO DAILY pravastatin 80 mg tablet 80 mg PO DAILY Print Language: Kinyarwanda
[2025-01-17 15:30] LABS: MANUAL DIFF FLAG NO
[2025-01-17 15:33] LABS: Basophils Absolute Auto 0.1 X10*3/uL (0.0-0.2); Basophils Percent Auto 0.6 % (0-2); Eosinophils Percent Auto 0.4 % (0-4); Hematocrit 33.1 % (37.0-47.0); Hemoglobin 10.7 g/dl (12.0-16.0); Imm Gran Abs Auto 0.03 X10*3/uL (0.00-0.03); Imm Gran Pct Auto 0.4 % (0.0-0.4); Lymphocytes Absolute Auto 1.3 X10*3/uL (1.2-4.9); Lymphocytes Percent Auto 15.2 % (20-40); Mean Corpuscular HGB Conc 32.3 g/dl (31.0-35.0); Mean Corpuscular Hemoglobin 25.5 pg (27.0-33.0); Mean Corpuscular Volume 78.8 fL (80.0-98.0); Mean Platelet Volume 10.1 fL (9.4-12.3); Monocytes Absolute Auto 0.6 X10*3/uL (0.1-1.2); Monocytes Percent Auto 7.5 % (2-11); Neutrophils Absolute Auto 6.5 x10*3/uL (2.0-8.3); Neutrophils Percent Auto 75.9 % (45-73); Platelet Count 238 X10*3/uL (160-400); Red Cell Distribution Width 14.9 % (11.0-16.0); White Blood Count 8.5 X10*3/uL (4.8-10.8)
[2025-01-17 15:52] LABS: Alkaline Phosphatase 89 U/L (39-117); Troponin-I High Sensitivity 10.8 ng/L (<3.5-17.0)
[2025-01-17 15:54] LABS: Alanine Aminotransferase < 6 U/L (0-31); Albumin Level 3.3 g/dL (3.5-5.0); Anion Gap 14 (12-20); Aspartate Amino Transferase 17 U/L (5-31); Bilirubin Total 0.6 mg/dL (0.0-1.0); Blood Urea Nitrogen 32 mg/dL (9-16); Calcium 9.2 mg/dL (8.4-10.2); Carbon Dioxide 21 mmol/L (22-29); Chloride 101 mmol/L (96-108); Creatinine Clr Calc Pharmacy 31.7; Estimated Glomerular Filt Rate 39; Glucose Random 357 mg/dL (60-115); Potassium 4.2 mmol/L (3.3-5.1); Sodium 132 mmol/L (135-145); Total Protein 6.7 g/dL (6.5-8.0)
[2025-01-17] MEDS: Insulin Lispro 100 UNIT/ML 3 ML VIAL SUBCUT (16:25)
[2025-01-17 16:28] VITALS: BP 151/50; PULSE 56; RESP 18; TEMP 36.5; O2SAT 96
[2025-01-17 17:33] LABS: Glucose, Whole Blood 268 mg/dL (60-115)
[2025-01-17 18:54] LABS: Appearance Urine Turbid; Color Urine Yellow; Glucose Urine UA >=1000 mg/dL (Negative); Leukocyte Esterase Urine Moderate (2+) (Negative); Nitrite Urine Negative (Negative); Specific Gravity - Urine 1.025 (1.005-1.025); UMIC TRIGGER UACC YES; Urine Blood Small (1+) (Negative); Urine Ketones 40 mg/dL (Negative); Urine Protein 30 (1+) mg/dL (Neg-Trace)
[2025-01-17 19:12] LABS: Bacteria Urine 4+ (None Seen); UACC Culture Trigger YES
--- OUTSIDE RECORDS SUMMARY | 2025-01-17 19:51 | XMS_ITS ---
Author Organization [facility] Address [address] [place] [address] Care Team Providers Care Animal Warden Name Role Phone Janes Foster MD Primary Care Provider Fernando Wall Unavailable [phone] REASON FOR VISIT cx 10/18 Encounters Encounter Location Date Provider Diagnosis [address] [address] 10/17/2024 Fernando Lim Plan Of Treatment No Information Progress Notes * TIFFANYYuli Lisa ADOB:[birth year] (89 yo F)Acc No.[id number]:10/17/2024 Patient:?Lisa HOLLIDAY :1935???Age:88 Y???Sex:Female Address: [place], [address] * true * Date:? Generated for Vii jesus manuel/Jonnie/eTransmitting on:?01/17/2025 07:51 PM EST
--- OUTSIDE RECORDS SUMMARY | 2025-01-17 19:51 | XMS_ITS | Patient Health Record ---
Author Organization [facility] Address [address] [place] [address] Care Team Providers Care Customer Management Specialist Name Role Phone Janes Foster MD Primary Care Provider Fernando Wall Unavailable [phone] Allergies Allergen (clinical drug ingredient) Drug/Non Drug [...] Problem Acquired hammer toe of right foot (3045908864913021 ) Other hammer toe(s) (acquired), right foot (M20.41) Active confirmed Response to treatment, Improvemen t Problem Acquired hammer toe of left foot (1857298623836428 ) Other hammer toe(s) (acquired), left foot (M20.42) Active confirmed Response to treatment, Improvemen t Problem Polyneuropathy due to diabetes mellitus type I (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 Vital Signs Blood pressure diastolic 68 mm Hg 07/15/2024 Height 5 ft 6 in in 07/15/2024 Blood pressure systolic 128 mm Hg 07/15/2024 Weight 175 lbs 07/15/2024 BMI 28.24 kg/m2 07/15/2024 Procedures Procedure Date Ordered Date Performed Result Body Sit e 75576-VPLQXVC NAIL, 6 OR MORE 02/19/2024 N/A 84190-Oywggirj Plate 02/19/2024 N/A 71760-RKRV SKIN LESIONS, OVER 4 02/19/2024 N/A 26692-DCKIIUT NAIL, 6 OR MORE 05/03/2024 N/A 33254-Shliavya Plate 05/03/2024 N/A 07583-DNGG SKIN LESIONS, OVER 4 05/03/2024 N/A 97024-PFZEJFY NAIL, 6 OR MORE 07/15/2024 N/A 22951-Yisohqco Plate 07/15/2024 N/A 69599-QXKF SKIN LESIONS, OVER 4 07/15/2024 N/A Encounters Encounter Location Date Provider Diagnosis [facility] [address] [place] [address] 02/19/2024 Fernando Lim Type 1 diabetes mellitus with diabetic polyneuropathy E10.42 ; Tinea unguium B35.1 ; Ingrown nail L60.0 ; Other hammer toe(s) (acquired), right foot M20.41 and Other hammer toe(s) (acquired), left foot M20.[address] [address] 05/03/2024 Fernando Lim Type 1 diabetes mellitus with diabetic polyneuropathy E10.42 ; Tinea unguium B35.1 and Ingrown nail L60.[address] [address] 07/15/2024 Fernando Lim Type 1 diabetes mellitus with diabetic polyneuropathy E10.42 ; Tinea unguium B35.1 and Ingrown nail L60.[address] [address] 10/17/2024 Fernando Lim Assessments Encounter Date Diagnosis [...] Test Name Order Date Hemoglobin A1c 11/30/2015 02984-ZISSLUB NAIL, 6 OR MORE 02/01/2016 65425-YKQUAAV NAIL, 6 OR MORE 04/08/2016 55439-XHQGYJF NAIL, 6 OR MORE 07/08/2016 70159-QGDGEET NAIL, 6 OR MORE 09/16/2016 39528-JSSXQAU NAIL, 6 OR MORE 08/21/2015 82856-NKRMLUT NAIL, 6 OR MORE 11/30/2015 45918-HMAZCQQ NAIL, 6 OR MORE 08/25/2014 65506-OUYWGDD NAIL, 6 OR MORE 10/27/2014 53180-AUBHWZO NAIL, 6 OR MORE 01/12/2015 61826-LFBVALS NAIL, 6 OR MORE 03/16/2015 73093-TTCUEWN NAIL, 6 OR MORE 05/25/2015 84436-YLQBFIQ NAIL, 6 OR MORE 06/18/2012 26729-QAEDIGH NAIL, 6 OR MORE 08/27/2012 60339-MIKHVMR NAIL, 6 OR MORE 01/04/2013 73112-HASCKDC NAIL, 6 OR MORE 03/25/2013 15740-GKZVOIH NAIL, 6 OR MORE 06/17/2013 18929-RCDUBEZ NAIL, 6 OR MORE 08/26/2013 90059-ZPLMYYG NAIL, 6 OR MORE 12/02/2013 90980-USTUEVC NAIL, 6 OR MORE 02/10/2014 38035-EIQYADD NAIL, 6 OR MORE 06/06/2014 24679-EFHPCVK NAIL, 6 OR MORE 12/19/2016 65780-SUTYVZD NAIL, 6 OR MORE 04/03/2017 03735-UFKREVA NAIL, 6 OR MORE 06/05/2017 68436-QAGZMAO NAIL, 6 OR MORE 08/14/2017 73047-ZZVXJOT NAIL, 6 OR MORE 10/23/2017 58214-PZZXURR NAIL, 6 OR MORE 01/01/2018 76307-CNJTYSI NAIL, 6 OR MORE 05/11/2018 53017-PDEWYAV NAIL, 6 OR MORE 07/27/2018 73712-TUUTPWC NAIL, 6 OR MORE 10/12/2018 99044-XSRMKVL NAIL, 6 OR MORE 01/14/2019 97959-BFPMFEG NAIL, 6 OR MORE 04/08/2019 40465-SEEVPTV NAIL, 6 OR MORE 08/16/2019 69409-JHZXLPQ NAIL, 6 OR MORE 10/25/2019 21916-PSQWIPL NAIL, 6 OR MORE 01/03/2020 32780-NQKICJK NAIL, 6 OR MORE 05/01/2020 34031-EBQFJIF NAIL, 6 OR MORE 08/17/2020 96343-RQMPVHU NAIL, 6 OR MORE 10/30/2020 02670-TRTXZIR NAIL, 6 OR MORE 01/01/2021 54478-NTSVENU NAIL, 6 OR MORE 03/29/2021 81823-HUXZJVJ NAIL, 6 OR MORE 06/14/2021 76233-KGAQPBV NAIL, 6 OR MORE 11/29/2021 97693-AKSJCVC NAIL, 6 OR MORE 02/11/2022 14163-AUHCHKG NAIL, 6 OR MORE 06/10/2022 05033-LLUPEVC NAIL, 6 OR MORE 09/13/2021 98661-BAWKAWF NAIL, 6 OR MORE 08/22/2022 28678-KSIOYGL NAIL, 6 OR MORE 10/31/2022 96828-LRNPILG NAIL, 6 OR MORE 01/09/2023 25762-IMVKMZW NAIL, 6 OR MORE 03/24/2023 05195-OQQONFO NAIL, 6 OR MORE 06/05/2023 49127-FKOAEFZ NAIL, 6 OR MORE 09/29/2023 98817-ICQGJRR NAIL, 6 OR MORE 02/19/2024 17073-CFCFZQP NAIL, 6 OR MORE 05/03/2024 95003-XPYPIXX NAIL, 6 OR MORE 07/15/2024 84663-Kwkztflv Plate 07/15/2024 69529-Efegyyra Plate 09/29/2023 21412-Unomqusl Plate 05/03/2024 20745-Lbmpuzxl Plate 02/19/2024 39897-Svonkigl Plate 06/05/2023 62274-Wbkhrasd Plate 10/30/2020 96087-Vwtlupps Plate 03/24/2023 63652-Obafpxtx Plate 08/22/2022 81523-Jqvvohja Plate 09/13/2021 93398-Dwvzqclu Plate 06/10/2022 47059-Uqqjruxc Plate 02/11/2022 20253-Wkogwtdb Plate 11/29/2021 49832-Fvjkyqwx Plate 06/14/2021 37578-Oxouxjzv Plate 03/29/2021 87629-Kyhnpccw Plate 05/01/2020 54271-Aplcjsaa Plate 06/06/2014 15612-Bjovwzle Plate 02/10/2014 10619-Urkqwpxh Plate 12/02/2013 81521-Xcvicgyr Plate 05/25/2015 46051-Ngyubsrg Plate 03/16/2015 11545-Hbuycemm Plate 01/12/2015 28169-Hohslnqe Plate 01/04/2013 40155-Bknmtcmq Plate 08/21/2015 74664-Uabnclwd Plate 11/30/2015 89188-Vipaxfye Plate Each Additional 75116-Qorbccqt Plate Each Additional 09991-Mucgcwlw Plate Each Additional 11/2014 15332-Kfyyrigf Plate Each Additional 08/2015 41572-Hprpqcjb Plate Each Additional 60381-Uvmycnbq Plate Each Additional 94326-Vkipazgi Plate Each Additional 77736-Eiagsddb Plate Each Additional 92427-Gtwspgur Plate Each Additional 11135-Tdcwofzp Plate Each Additional 59607-Knthbngi Plate Each Additional 08335-Hdfofyko Plate Each Additional 27996 I&D ABSCESS- SIMPLE,SINGLE 015 40176-YNLJ SKIN LESIONS, OVER 4 06/10/20 22 24655-MMBA SKIN LESIONS, OVER 4 08/22/20 22 39397-UETR SKIN LESIONS, OVER 4 03/24/20 23 79988-UKUA SKIN LESIONS, OVER 4 01/09/20 23 21034-MWZS SKIN LESIONS, OVER 4 10/31/20 22 65562-CFJC SKIN LESIONS, OVER 4 02/12/20 22 41095-KXZT SKIN LESIONS, OVER 4 06/05/20 23 99897-TFTK SKIN LESIONS, OVER 4 09/29/20 23 81768-PVYS SKIN LESIONS, OVER 4 02/19/20 24 89707-IKMF SKIN LESIONS, OVER 4 05/03/20 24 80254-NSEM SKIN LESIONS, OVER 4 07/15/20 24 38305-TGTV SKIN LESIONS, 2 TO 4 11/29/19 46388-GBIL SKIN LESIONS, 2 TO 4 03/29/20 21 21236-FABN SKIN LESIONS, 2 TO 4 01/01/20 21 99010-MLTX SKIN LESIONS, 2 TO 4 06/14/20 21 40144-EBRS SKIN LESIONS, 2 TO 4 09/13/20 21 77223-KJQF SKIN LESIONS, 2 TO 4 05/01/20 20 42434-LZZS SKIN LESIONS, 2 TO 4 01/03/20 20 77600-OTPJ SKIN LESIONS, 2 TO 4 10/30/20 20 45751-GOTG SKIN LESIONS, 2 TO 4 08/17/20 20 00926-ARAJ SKIN LESIONS, 2 TO 4 10/25/20 19 29187-JYOU SKIN LESIONS, 2 TO 4 08/16/20 19 85045-TCYL SKIN LESIONS, 2 TO 4 04/08/20 19 74311-BBTH SKIN LESIONS, 2 TO 4 01/15/20 19 69124-BATH SKIN LESIONS, 2 TO 4 10/12/20 18 96044-OQWL SKIN LESIONS, 2 TO 4 07/27/20 18 36880-XOTR SKIN LESIONS, 2 TO 4 05/11/20 18 08841-XLUE SKIN LESIONS, 2 TO 4 01/01/20 18 93598-OPPM SKIN LESIONS, 2 TO 4 10/23/20 17 87488-SWRA SKIN LESIONS, 2 TO 4 08/14/20 17 30188-AHNW SKIN LESIONS, 2 TO 4 06/05/20 17 07511-MLPD SKIN LESIONS, 2 TO 4 12/19/19 17 86768-FOVX SKIN LESIONS, 2 TO 4 04/03/20 17 94817-NMPD SKIN LESIONS, 2 TO 4 08/21/20 15 89533-USNB SKIN LESIONS, 2 TO 4 11/30/19 16 96504-GSTX SKIN LESIONS, 2 TO 4 09/16/20 16 39592-GRJA SKIN LESIONS, 2 TO 4 07/08/20 16 59380-CISI SKIN LESIONS, 2 TO 4 04/08/20 16 26309-DNEX SKIN LESIONS, 2 TO 4 02/01/20 16 27268-VCMS SKIN LESIONS, 2 TO 4 05/25/20 15 53873-PDUK SKIN LESIONS, 2 TO 4 03/16/20 15 64004-YBCL SKIN LESIONS, 2 TO 4 01/12/20 15 57813-POEW SKIN LESIONS, 2 TO 4 10/27/20 14 98382-BDPQ SKIN LESIONS, 2 TO 4 08/25/20 14 12793-NPYF SKIN LESIONS, 2 TO 4 06/18/20 12 22408-VZJD SKIN LESIONS, 2 TO 4 03/25/20 13 35933-DVOY SKIN LESIONS, 2 TO 4 01/04/20 13 33986-YOQH SKIN LESIONS, 2 TO 4 08/27/20 12 19634-TEQT SKIN LESIONS, 2 TO 4 07/25/20 11 83890-VSHB SKIN LESIONS, 2 TO 4 10/03/20 11 92347-PTSU SKIN LESIONS, 2 TO 4 12/23/19 12 25534-IWTM SKIN LESIONS, 2 TO 4 03/19/20 12 35064-SUTS SKIN LESIONS, 2 TO 4 06/06/20 14 95567-QIWQ SKIN LESIONS, 2 TO 4 02/11/20 14 23811-ALKB SKIN LESIONS, 2 TO 4 12/02/19 14 70573-BDXL SKIN LESIONS, 2 TO 4 08/26/20 13 77428-OSWU SKIN LESIONS, 2 TO 4 06/17/20 13 M1035-NCEGFAIV DYSTROPHIC NAILS ANY # S3665-SWXMSQYR DYSTROPHIC NAILS ANY # X1669-LDIVPQSU DYSTROPHIC NAILS ANY # U3920-WSYCMNOL DYSTROPHIC NAILS ANY # Insurance Providers Payer Name Payer Address Payer Phone Subscriber Number Group Number Insured Name Patient Relationship to Insured Coverage Start Date Coverage End Date Medicare National [employer] [address] [place] [address] [id number] Lisa Holliday Self - patient is the insured [facility] [address] [place] [address] [id number] Lisa Holliday Self - patient is the [...] replacement Surgery 03/31 Hospitalization History Reason Date(Month/Year) [facility] [place] BP [place] Low / Heart blockage few hrs 11/2022 Vertigo 07/2012 Vertigo. 10/2011
--- OUTSIDE RECORDS SUMMARY | 2025-01-17 19:51 | XMS_ITS ---
Author Organization [facility] Address [address] [place] [address] Care Team Providers Care Linoleum Mechanic Name Role Phone Kristin MAGALLANES, Janes Primary Care Provider Fernando Wall Unavailable [phone] Encounters Encounter Location Date Provider Diagnosis [facility] [address] [place] [address] 10/18/2024 Fernando Lim Plan Of Treatment No Information Progress Notes * Lisa HOLLIDAY ADOB:[birth year] (89 yo F)Acc No.[id number]:10/18/2024 Progress Note Patient:?Lisa HOLLIDAY Provider:?Fernando Lim DPM :1935???Age:88 Y???Sex:Female D ate:10/18/2024 [address]: [id number] Pcp:Janes Foster MD Subjective: * Chief Complaints: [...] Lim DPM Date:?2023 Generated for Vii jesus manuel/Jonnie/eTransmitting on:?01/17/2025 07:51 PM EST
--- OUTSIDE RECORDS SUMMARY | 2025-01-17 19:51 | XMS_ITS ---
Author Organization [facility] Address [address] [facility] [place] [address] Care Team Providers Care Preparer Samples And Repairs Name Role Phone Janes Foster MD Primary Care Provider Fernando Wall Unavailable [phone] Allergies Allergen (clinical drug ingredient) Drug/Non Drug [...] Ordered Date Performed Result Body Sit e 53688-CRFCSIN NAIL, 6 OR MORE 07/15/2024 N/A 92780-Qepmjrgj Plate 07/15/2024 N/A 09254-RQBQ SKIN LESIONS, OVER 4 07/15/2024 N/A Encounters Encounter Location Date Provider Diagnosis [facility] [address] [place] [address] 07/15/2024 Fernando Lim Type 1 diabetes mellitus [...] Treatment Pending Test Test Name Order Date 81038-JGCUGZA NAIL, 6 OR MORE 07/15/2024 73433-Mzzxdiaf Plate 07/15/2024 70127-LAPT SKIN LESIONS, OVER 4 07/15/20 24 Next [...] Motrin was recommended for pain or discomfort (20819) , DIABETES: Pt was advised as to [...] use of a nail nipper and/or dremel-type multifocal button grinder, to a more viable healthy nail plate or bed tissue 6-10. Silver nitrate used for any petechial bleeding as necessary. Definitive antifungal treatment options have been reviewed and discussed with the patient. The patient chooses, no pharmaceutical tx - 77289 Keratoma Treatment Parring or Cutting o f Benign Hyperkeratotic Lesion(s) 65806 ( >4 Lesions) - The Benign hyperkeratotic lesions, as described above were pared, and/or cut utilizing a sterile #15 blade, tissue nippers, and/or dremel Progress Notes * Lisa HOLLIDAY ADOB:[birth year] (88 yo F)Acc No.[id number]:07/15/2024 Progress Note Patient:?Lisa Holliday Provider:?Fernando Lim DPM :1935???Age:88 Y???Sex:Female D ate:07/15/2024 Address: [address] , [id number] Pcp:Janes Foster MD Subjective: * Chief Complaints: [...] thyroidectomy needle Biopsy breast tissue 01/2017,02/2017[place] [place]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 10/2011Vertigo 07/2012[facility] [place] - BP was [...] , T5? Plan: * Treatment: 2.?Ingrown nail?Procedure: 59333-Leikcqmm Plate * Procedures:?Debride Nail 6-10:?Nail debridement?Performance of this nail treatment by a nonprofessional would put this patients foot and overall health at risk. Therefore, nail debridement was performed extensively to reduce/remove overall nail length, girth, thickness, subungual debris, and necrotic tissue, by manual and/or electrical means through the use of a nail nipper and/or dremel-type multifocal button grinder, to a more viable healthy nail plate or bed tissue 6-10. Silver nitrate used for any petechial bleeding as necessary. Definitive antifungal treatment options have been reviewed and discussed with the patient. The patient chooses, no pharmaceutical tx - 95022.?Keratoma Treatment:?Parring or Cutting of Benign Hyperkeratotic Lesion(s)?97101 ( >4 Lesions) - The Benign hyperkeratotic [...] Motrin was recommended for pain or discomfort (31915) , DIABETES: Pt was advised as to the risk of delayed or nonhealing due to diabetes. Pt is to call the office with any questions, concerns, or complications.? * Procedure Codes:?31542 DEBRI DE NAIL, 6 OR MORE, Modifiers: XS 30101 Avulsion Plate, Modifiers: XS , [id number] TRIM SKIN LESIONS, OVER 4, Modifiers: XS * Follow Up:?prn * Images: * Sign off status: Completed true * Provider:?Fernando Lim DPM Date:?2023 Generated for Angélica ken/Jonnie/Nat on:?01/17/2025 07:51 PM EST History and Physical Notes * [...]
--- OUTSIDE RECORDS SUMMARY | 2025-01-17 19:52 | XMS_ITS | Data Portability ---
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 Name Role Phone PHILIPP OVIEDO Primary Care Provider [phone] Assessment Encounter Date Assessment Date Assessment LastModified [...] Recorded Time Impacted cerumen in right ear [id number] 44490 Active 2021 Impacted cerumen, right ear; Note: Date Diagnosed : 07/14/2022 1:28 PM (H61.21) Not Available [facility] 4 02:40:09 Sensorine ural hearing loss of bilateral ears 828459759 Active 2015 Sensorine ural hearing loss, bilateral ; Note: Date Diagnosed : 6 1:22 PM (H90.3) Not Available [facility] 4 02:40:08 Otitis media of left ear [id number] 51498 Active 2019 Otitis media, unspecifi ed, left ear; Note: Date Diagnosed : 03/22/2020 9:49 AM (H66.92) Not Available [facility] 4 02:40:08 Impacted cerumen of bilateral ears 54693083873 04975 Active 2015 Impacted cerumen, bilateral ; Note: Date Diagnosed : 6 12:21 PM (H61.23) Not Available [facility] 4 02:40:14 Impacted cerumen 78084696 Active 2013 Impacted cerumen; CMS Risk: low risk CMS Treatment : new problem (to examiner) : no additiona l workup planned Not Available [facility] 4 02:40:16 Otorrhea of left ear 63135518999 32726 Active 2019 Otorrhea, left ear; Note: Date Diagnosed : 04/23/2020 3:37 PM (H92.12) Not Available [facility] 4 02:40:13 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 55670324454 41019 Active 2019 Central perforati on of tympanic membrane, left ear; Note: Date Diagnosed : 06/27/2020 1:43 PM (H72.02) Not Available [facility] 4 02:40:11 Problem Notes None recorded. Procedures Surgical History Date Name Laterality Status Provider Name and Address Organization Details Recorded Time 4 Cerumen removal without microscope bilat completed CATHERINE DESAI PA-C [address] [place] [address], [id number] - [facility] 07/26/2024 11:54:29 Imaging Results None recorded. Procedure Notes None recorded. Medical Equipment None Reported. Medications Name Sig Start Date Stop Date Status Note LastModified by Organization Details LastModified Time nifedipin e ER 30 mg tablet,ex tended release 24 hr 03/21 completed Medicati on ID: [id number] Du ration Value: 90 Reason: () Brand Name: nifedipi ne Send Method: E-Prescr ibed Sub s Allowed: subs OK Speci al Instruct ion: TAKE 1 TABLET BY MOUTH EVERY DAY Medi [facility] nericNam e: nifedipi ne Not Available Not Available Not Available amoxicill in 500 mg capsule TAKE 4 CAPSULES BY MOUTH ONE HOUR PRIOR TO DENTAL PROCEDUR E active Not Available Not Available No t Available metformin 500 mg tablet 03/15 completed Medicati on ID: [id number] D uration Value: 90 Brand Name: metformi n Send Method: E-Prescr ibed Sub s Allowed: subs OK [facility] metformi n Not Available Not Available Not Available lisinopri l 20 mg tablet active Not Available Not Available Not Available clonazepa m 0.5 mg tablet 04/23 completed Medicati on ID: [id number] D uration Value: 15 Reason: () Brand Name: clonazep am Send Method: E-Prescr ibed Sub s Allowed: subs OK Medic [facility] ericName : clonazep am Not Available Not Available Not Available Lantus U-100 Insulin 100 unit/mL subcutane ous solution 04/23 completed Medicati on ID: [id number] Du ration Value: 56 Reason: () Brand Name: Lantus U-100 Insulin Send Method: E-Prescr ibed Sub s Allowed: subs OK Speci al Instruct ion: INJECT 30 - 38 UNITS SUBCUTAN EOUSLY OR DIRECTED BY MD [facility] : Lantus U-100 Insulin Not Available Not Available Not Available levothyro xine 100 mcg tablet 03/15 completed Medicati on ID: [id number] D uration Value: 90 Brand Name: levothyr oxine Se nd Method: E-Prescr ibed Sub s Allowed: subs OK Medic [facility] ericName : levothyr oxine Not Available Not Available Not Available ofloxacin 0.3 % ear drops 03/15 completed Medicati on ID: [id number] D uration Value: 10 Brand Name: ofloxaci n Send Method: E-Prescr ibed Sub s Allowed: subs OK Medic [facility] ericName : ofloxaci n [...] 3 drop 04/23 completed Medicati on ID: [id number] D uration Value: 14 Prescri bed By Name: Clara perez MD Brand Name: tobramyc in-dexam ethasone Send Method: E-Prescr ibed Sub s Allowed: subs OK Speci al Instruct ion: apply to affected ear Medi cationGe nericNam e: tobramyc in-dexam ethasone Not Available Not Available Not Available neomycin- polymyxin -hydrocor t 3.5 mg-10,000 unit/mL-1 % ear drops,ester p 03/21 completed Medicati on ID: [id number] Du ration Value: 30 Reason: () Brand [...] topical gel 03/15 completed Medicati on ID: [id number] B rand Name: diclofen ac sodium S end Method: E-Prescr ibed Sub s Allowed: subs OK Medic [facility] ericName : diclofen ac sodium Not Available Not Available Not Available Arexvy (PF) 120 mcg/0.5 mL IM suspensio n active Medicati on ID: [id number] B rand Name: Audra (VELASQUEZ) Billy d Method: E-Prescr ibed Sub s Allowed: subs OK Medic at[facility] ericName : Audra (PF) Not Available Not Available Not Available Vitals Date Recorded Body height Body mass index (BMI) Body weight Provider Name and Address Organization Details Last Updated DateTime 07/26/2024 157.48 cm 30.7 kg/m2 51591.52 g Donny Sarkar [place] - [facility] 07/26/2024 11:16:48 Social History None recorded. Functional Status None recorded. Mental Status None recorded. Family History Nothing Reported. Medical History No medical history recorded. Gynecological HistoryNo gynecological history recorded. Obstetrics History GPAL:G 0 P 0 0 0 0 Past Encounters Encounter ID Performer Location Encounter Start Date Encounter Closed Date Diagnosis/Indication Diagnosis SNOMED-CT Code Diagnosis ICD10 Code Diagnosis Note [id number] RUIZ CROW MD [facility] [address] [address] 07/26/2024 11:12:02 07/26/2024 11:56:27 Impacted cerumen of bilateral ears [id number] 468952 H61.23 Health Concerns Section Related Observation LastModified by Organization Detai ls LastModified Time None Recorded Concern Status LastModified by Organization Details LastModified Time None Recorded Advance Directives Directive None Recorded Payers Encounter Date Sequence Insurance Name Policy Number Policy Gneao Covered Member ID Genao Member ID Guarantor Name 07/26/2024 1 [place] [employer] Lisa Holliday [id number] Lisa Holliday 07/26/2024 2 [facility] [place] - PLAN 1 (MEDICARE SUPPLEMENT) [id number] Lisa Holliday [id number] Lisa Holliday Notes Date Note Type Note Provider Name and Address Organization Details Recorded Time 07/26/2024 text/html 88-year-old female presents for evaluation of the ears. She reports that her hearing is very poor despite her hearing aids. She notes it has been a very long time since she had an audiogram. She denies otalgia, otorrhea, and tinnitus. RUIZ CROW MD [address] [place] [address], [place], [address], [place] - [facility] 07/26/2024 17:26:24 OBGyn Episode No OBEpisode recorded.
[2025-01-17 19:56] VITALS: BP 137/45; PULSE 60; RESP 15; TEMP 36.6; O2SAT 95
[2025-01-17 20:28] LABS: Glucose, Whole Blood 342 mg/dL (60-115)
[2025-01-17 22:33] VITALS: BP 137/45; PULSE 60; RESP 15; TEMP 36.6; O2SAT 95
[2025-01-17 22:38] VITALS: BP 162/68; PULSE 62; RESP 16; O2SAT 96
== END 2025-01-17 22:39 ==
PROVIDERS: Emergency Medicine; Emergency Provider Emergency Medicine Emergency Medical Services; PCP Internal Medicine
DX: R41.82 Altered mental status, unspecified (principal); R00.1 Bradycardia, unspecified; E11.9 Type 2 diabetes mellitus without complications; R79.89 Other specified abnormal findings of blood chemistry; I44.7 Left bundle-branch block, unspecified; I10 Essential (primary) hypertension; Z79.899 Other long term (current) drug therapy; Z79.4 Long term (current) use of insulin; Z66 Do not resuscitate
CPT/HCPCS: 36415; 70450; 71045; 80053; 81001; 82947; 84484; 85025; 87086; 87088; 87186; 93005; 96360; 96361; 99284

== ENCOUNTER → 2025-01-17 14:56 | Outpatient (BNV) | payer MEDICARE, OTHER, SELFPAY | PROVIDERS: Emergency Provider Emergency Medicine Emergency Medical Services; PCP Internal Medicine; Visit Provider Internal Medicine Cardiovascular Disease | DX: I44.7 Left bundle-branch block, unspecified (principal); R00.1 Bradycardia, unspecified | CPT/HCPCS: 93010 ==

== ENCOUNTER → 2025-01-17 14:57 | Outpatient (BNV) | payer MEDICARE, OTHER, SELFPAY | PROVIDERS: Emergency Provider Emergency Medicine; PCP Internal Medicine; Visit Provider Radiology Diagnostic Radiology | DX: R41.82 Altered mental status, unspecified (principal); R07.9 Chest pain, unspecified | CPT/HCPCS: 71045 ==

== ENCOUNTER 2025-02-02 08:38 | Outpatient (REF) | payer MEDICARE, OTHER, SELFPAY ==
--- NOTE | ~2025-02-02 | XR_ITS ---
EXAMINATION: XR FEMUR, LEFT CLINICAL INFORMATION: M79.606 - Pain in leg, unspecified COMPARISON: January 01, 2025. TECHNIQUE: AP and lateral views of the left femur were obtained. FINDINGS: There is no callus formation/healing in the displaced fracture mid diaphysis. Status post open reduction internal fixation with a metallic plate throughout the left femur placed laterally anchored with multiple screws and cerclage in the proximal diaphysis and proximal to the distal aspect of the diaphysis fracture. Total left hip arthroplasty prosthesis. This probably loosening along the lateral margin of the femoral component of the left hip prosthesis. Vascular calcifications. Degenerative changes in the medial and lateral compartment of the left knee. Spondylosis L4-5 and L5-S1 and S shaped curvature of the lower lumbar spine. XR/XR femur LT 2V IMPRESSION: Questionable loosening lateral margin of the femoral prosthesis component left hip. No healing mid diaphysis fracture left femur. Electronically signed by: Jerome Gutierrez MD 02/03/2025 03:05 PM EDT
== END 2025-02-02 08:39 | disposition home or self-care (01) ==
LOC: HO.HOSX 08:38
PROVIDERS: Visit Provider Physician Assistant
DX: S72.92XA Unspecified fracture of left femur, initial encounter for closed fracture (principal); X58.XXXA Exposure to other specified factors, initial encounter; Y93.9 Activity, unspecified; Y92.9 Unspecified place or not applicable; Y99.9 Unspecified external cause status
CPT/HCPCS: 73552; 99212

== ENCOUNTER 2025-02-02 09:15 | Outpatient (AMB) | payer MEDICARE, OTHER, SELFPAY ==
--- NOTE | 2025-02-02 09:39 | A.OFFVIS_ITS ---
Intake Visit Reasons: OV-ORIF left femur 11/02/24 NE Intake Note: Lisa is an 89 year old female who presents today in a wheel chair with her granddaughter for a follow up s/p ORIF of left femur, DOS 11/02/24 NE. Patient reports she is doing well, states no pain or discomfort and she has no concerns today. Allergies adhesive tape [Adhesive Tape] Allergy (Unknown, Verified 02/02/25 10:21) SKIN REDNESS HPI HPI OV-ORIF left femur 11/02/24 NE: Details: 89-year-old female returns to the office today 3 months status post ORIF left femur on 11/02/[address] Baumann. She continues to remain nonweightbearing. She denies pain and has no concerns today. 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 No ecchymosis, no swelling. No drainage. No significant tenderness around the knee. No joint effusion. Calf supple nontender neurovascularly intact. Results Reviewed Results Reviewed: X-rays of the left femur obtained in the office today and reviewed by me show intact orthopedic hardware with stable fracture production. Interval healing. Assessment & Plan Assessment & Plan (1) Closed left femoral fracture: Code(s): S72.92XA - Unspecified fracture of left femur, initial encounter for closed fracture Category: Medical Qualifiers: Encounter type: subsequent encounter Femur location: shaft Fracture alignment: displaced Fracture healing: with routine healing Plan: She can now begin weight-bearing as tolerated. I did express slowly advancing to this with physical therapy with a walker. Physical therapy and occupational therapy should also include upper body and lower body conditioning. Gait training and strengthening exercises. She will see me back in 6-8 weeks for a follow-up with x-rays, sooner if needed. Orders: Orders XR femur LT 2V Today M79.606 - Pain in leg, unspecified Coding Level of Care Code Est Pt Level 3 (69435) Complex EM visit Add On G2211 Diagnoses Closed left femoral fracture S72.92XA Encounter type: subsequent encounter Femur location: shaft Fracture alignment: displaced Fracture healing: with routine healing
== END 2025-02-02 10:31 | disposition home or self-care (01) ==
LOC: HO.HOS 09:15
PROVIDERS: Visit Provider Physician Assistant
DX: S72.92XD Unspecified fracture of left femur, subsequent encounter for closed fracture with routine healing (principal)
CPT/HCPCS: 99213; G2211

== ENCOUNTER → 2025-02-02 09:49 | Outpatient (BNV) | payer MEDICARE, OTHER, SELFPAY | PROVIDERS: Visit Provider Radiology Diagnostic Radiology | DX: M79.605 Pain in left leg (principal) | CPT/HCPCS: 73552 ==

== ENCOUNTER 2025-02-04 14:19 | Emergency (ER) | payer MEDICARE, OTHER, SELFPAY ==
--- NOTE | ~2025-02-04 | CT_ITS ---
CLINICAL HISTORY: Stroke Protocol CT angiography head and neck with contrast. 3D Post-processing. Comparison: None Findings: CTA head: No large vessel intracranial occlusion. No dissection or aneurysm. Intradural vertebral arteries are patent. Anterior and posterior circulation appears widely patent. Small partially calcified meningioma near the vertex on the left CTA neck: There is a normal branching pattern of the aortic arch. The right common, internal and external carotid arteries are widely patent, with mild atherosclerotic disease. The left common, internal and external carotid arteries are patent, with mild atherosclerotic disease. The vertebral arteries are patent. Degenerative changes within the spine. Lung apices demonstrate no acute process. Impression: There is no intracranial large vessel occlusion detected. No significant stenosis of the neck vasculature. Incidental findings as detailed. This document has been electronically signed by: Petey Morris MD on 02/04/2025 15:20:26
--- NOTE | ~2025-02-04 | CT_ITS ---
CLINICAL HISTORY: Stroke Protocol CT head without contrast Comparison: CT/SR - CT HEAD/BRAIN WO IV CON - 01/17/25 16:57 EST Findings: No evidence of acute territorial infarct. There is patchy low density in the periventricular and subcortical white matter. Diffuse volume loss is noted. No hydrocephalus. No hemorrhage, mass effect, mass lesion or midline shift. No abnormal extra-axial fluid. No calvarial fracture. Paranasal sinuses and mastoid air cells are clear. Impression: No evidence of acute process. Ischemic microangiopathy and diffuse volume loss. This document has been electronically signed by: Petey Morris MD on 02/04/2025 15:05:33
--- NOTE | 2025-02-04 14:30 | ECG_ITS ---
Test Reason : STROKE Blood Pressure : */* mmHG Vent. Rate : 63 BPM Atrial Rate : 63 BPM P-R Int : 194 ms QRS Dur : 154 ms QT Int : 502 ms P-R-T Axes : * 9 -40 degrees QTcB Int : 513 ms Sinus rhythm with Premature atrial complexes Left bundle branch block Abnormal ECG When compared with ECG of 17-Jan-2025 15:14, Premature atrial complexes are now Present Referred By: Tyra Harris Electronically Signed By: RAMY SKELTON MD
[2025-02-04 14:39] VITALS: BP 120/50; PULSE 136; O2SAT 97
[2025-02-04 14:42] LABS: Glucose, Whole Blood 183 mg/dL (60-115); Prothrombin Time Whole Bld POC 12.4 sec (11.1-13.5)
--- NOTE | 2025-02-04 14:46 | ED_ITS ---
HPI - Neuro Symptoms/Deficit General Chief Complaint: Stroke Stated Complaint: SYNCOPAL EPISODE Time Seen by Provider: 02/04/25 14:23 Source: EMS and old records reviewed Mode of arrival: EMS Limitations: altered mental status History of Present Illness ED Provider: DR. Harris HPI Narrative: 89-year-old female history of CAD, LBBB, insulin-dependent diabetes, hypothyroidism, HLD who was brought in from [facility] for evaluation of being unresponsiveness. Last known well was at 14:15 then patient became unresponsive while she was sitting in the chair getting her hair groomed, patient was unresponsive, then on EMS arrival and placing an IV in her left arm patient started talk, patient noted to have slurred speech, and left-sided gaze, with slight left facial droop, POC initially by EMS with above 200, not taking anticoagulation. Patient's MOLST form is DNR/DNI/do not transferred to the hospital however family was contacted by the [place] [facility] and approved the transfer. Patient presented with almost same presentation on 01/17/2025 that also resolved while she was in the ED and was attributed to UTI then and was sent back to the [place] [facility] on [place] for 5 days. Related Data Home Medications ?Medication ?Instructions ?Recorded ?Confirmed insulin aspart U-100 100 unit/mL See Protocol subcut TIDAC 04/03/21 11/24/24 (3 mL) subcutaneous pen insulin glargine 100 unit/mL (3 24 unit subcut DAILY 04/03/21 11/24/24 mL) subcutaneous pen metoprolol succinate 25 mg 25 mg PO DAILY 02/12/23 11/24/24 tablet,extended release 24 hr pravastatin 80 mg tablet 80 mg PO DAILY 02/12/23 11/24/24 acetaminophen 325 mg tablet 325 mg PO DAILY PRN Pain/Fever 10/31/24 11/24/24 (Tylenol) levothyroxine 112 mcg tablet 112 mcg PO DAILY@0600 10/31/24 11/24/24 lisinopril 10 1 tab PO DAILY 10/31/24 11/24/24 mg-hydrochlorothiazide 12.5 mg tablet calcium 600 mg (as cap PO 02/02/25 carbonate)-vitamin D3 10 mcg (400 unit) capsule Allergies Allergy/AdvReac Type Severity Reaction Status Date / Time adhesive tape [Adhesive Tape] Allergy Unknown SKIN Verified 02/04/25 15:03 REDNESS Review of Systems 2 Review of Systems: All other systems are reviewed and are negative Constitutional: Reports as per HPI and Reports no additional constitutional complaints Eyes: Reports as per HPI and Reports no additional eye complaints Reports system reviewed and no additional complaints, except as documented Cardiovascular: Reports as per HPI and Reports no additional cardiovascular complaints Respiratory: Reports as per HPI and Reports no additional respiratory complaints Gastrointestinal: Reports as per HPI and Reports no additional gastrointestinal complaints Genitourinary: Reports no additional female genitourinary complaints Musculoskeletal: Reports no additional musculoskeletal complaints Skin/Breast: Reports system reviewed and no additional complaints, except as docu Psychiatric: Reports no additional psychiatric complaints Endocrine: Reports no additional endocrine complaints Hematologic/Lymphatic: Reports no additional hematologic/lymphatic complaints Allergic/Immunologic: Reports no additional allergic/immunologic complaints Reports system reviewed and no additional complaints, except as documented and Reports Abnormal speech present [facility] Past Medical History Medical History Patellofemoral arthritis of right knee Diabetes mellitus Left bundle branch block CAD (coronary artery disease) Surgical History Hx of mastectomy Hx of mastectomy Social History Social History Household Members: None Housing: House Do you presently have visiting nurse or other home services: No Patient Tobacco Use Status: Never used Tobacco Advance Directives: Yes Advance Directives on File: Yes Advance Directives Date on File: 11/01/24 service: No Current occupational status: 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 Blood pressure elevated. Heart rate normal. Respiratory rate normal. Temperature normal. Oxygen saturation normal. Appearance: Alert. No acute distress. Head: Normal external exam. Normocephalic. Atraumatic. No Foss signs noted. No raccoon eyes noted Eyes: PERRLA. EOMI. Conjunctiva and sclera normal. Eyelids normal. ENT: TM's Normal. Pharynx normal. Uvula midline. Moist mucous membranes. No trismus noted. No drooling noted. No muffled voice noted. Neck: Normal inspection. Neck supple. FROM. No adenopathy. Thyroid Normal. No meningeal signs. No neck mass noted. CVS: Normal heart rate and rhythm. Heart sound normal. No murmurs noted. Pulses normal throughout. Respiratory: No respiratory distress. Painless inspiration. Breath sounds normal. No wheezes/rales/rhonchi noted. Chest nontender. No accessory muscle usage noted or decreased air movement noted. Abdomen: Soft and nontender. Bowel sounds normal in all 4 quadrants. No distention noted. No organomegaly noted. No visible injury noted. Back: No CVA tenderness. Full range of motion noted. Skin: Skin warm and dry. Normal skin color. Normal skin turgor. No rashes/lesions/lacerations noted. Extremities: No lower extremity edema. Extremities exhibit normal range of motion. Extremities nontender. Neuro: Oriented X 3. Cranial nerve exam: II-XII are grossly intact No motor deficit. No sensory deficit. Reflexes normal. Course Reevaluation(s) Reevaluation #1: Initially patient arrived with a concern of stroke, patient went to CT for stroke protocol when she returned to the room complete resolution of her symptoms now patient is awake, alert, able to introduce herself, moving 4 extremities with improvement of the initial presentation of facial droop and aphasia. Time: 15:08 Reevaluation #2: CTA head and neck for stroke protocol:There is no intracranial large vessel occlusion detected. No significant stenosis of the neck vasculature. Incidental findings as detailed. Time: 15:23 Reevaluation #3: The case discussed with Dr. Linton covering hospitalist who declined admission because patient is DNR/DNI/do not transfer to the hospital. Time: 15:33 Medications Administered Discontinued Medications Generic Name Dose Route Start Last Admin Trade Name Freq PRN Reason Stop Dose Admin Iohexol 100 ml 02/04/25 14:56 02/04/25 14:58 Iohexol 350 Mg/Ml 100 Ml Infus..Btl IV 02/04/25 14:57 100 ml ONCE ONE Administration Medical Decision Making Differential Diagnosis Differential Diagnoses: The differential diagnosis associated with the presentation includes (Stroke, seizure, electrolyte derangement, severe anemia, vasovagal, dysrhythmia, ACS, pneumonia, pneumothorax.) Admission/Observation Consideration of admission/observation: Escalation of care including admission/observation considered Consult Healthcare Provider Management of the patient was discussed with: Hospitalist (Dr. Linton) Lab Data MDM Lab Attestation statement: I reviewed the patient's lab results. 02/04/25 15:00 02/04/25 15:00 Labs: Lab Results 02/04/25 02/04/25 Range/Units 14:36 15:00 WBC 8.3 (4.8-10.8) X10*3/uL RBC 3.88 L (4.20-5.50) X10*6/uL Hgb 10.0 L (12.0-16.0) g/dl Hct 30.2 L (37.0-47.0) % MCV 77.8 L (80.0-98.0) fL MCH 25.8 L (27.0-33.0) pg MCHC 33.1 (31.0-35.0) g/dl RDW 15.6 (11.0-16.0) % Plt Count 206 (160-400) X10*3/uL MPV 10.6 (9.4-12.3) fL Immature Gran % (Auto) 0.4 (0.0-0.4) % Neut % (Auto) 75.5 H (45-73) % Lymph % (Auto) 16.3 L (20-40) % Holmes % (Auto) 6.4 (2-11) % Eos % (Auto) 0.7 (0-4) % Baso % (Auto) 0.7 (0-2) % Lymph # (Auto) 1.4 (1.2-4.9) X10*3/uL Holmes # (Auto) 0.5 (0.1-1.2) X10*3/uL Eos # (Auto) 0.1 (0.0-0.4) X10*3/uL Baso # (Auto) 0.1 (0.0-0.2) X10*3/uL Abs Immat Gran (auto) 0.03 (0.00-0.03) X10*3/uL Absolute Neuts (auto) 6.2 (2.0-8.3) x10*3/uL Absolute Nucleated RBC 0.000 (0.0-0.012) X10*3/uL Nucleated RBC % (auto) 0.0 (0.0-0.2) /100WBC PT 12.5 H (10.9-12.4) SEC Whole Blood PT 12.4 (11.1-13.5) sec INR 1.1 (0.9-1.1) Whole Blood INR 1.0 (0.9-1.1) APTT 24.8 L (26.0-36.8) SEC Sodium 136 (135-145) mmol/L Potassium 4.2 (3.3-5.1) mmol/L Chloride 105 (96-108) mmol/L Carbon Dioxide 22 (22-29) mmol/L Anion Gap 13 (12-20) BUN 21 H (9-16) mg/dL Creatinine 1.10 (0.5-1.4) mg/dL Estim Creat Clear Calc 37.6 Estimated GFR 47 POC Glucose 183 H (60-115) mg/dL Random Glucose 196 H (60-115) mg/dL Calcium 8.5 D (8.4-10.2) mg/dL Troponin I High Sens 5.2 D (<3.5-17.0) ng/L Triglycerides 138 (<150) mg/dL Cholesterol 123 (<200) mg/dL LDL Cholesterol, Calc 61 (<100) mg/dL HDL Cholesterol 35 L (>40) mg/dL Independent Interpretation I performed an independent interpretation of an: CT Scan (CT head: No acute pathology pain) Radiology Impression Discussion of test interpretation with radiology: I have reviewed the radiologist's reading. Chronic Conditions Patient?s care impacted by: Diabetes NIH Stroke Scale Internal: Initial- Upon Arrival Time: 14:25 Level of Consciousness: Alert Level of Consciousness Questions: Answers neither question correctly Level of Consciousness Commands: Performs neither task correctly Best Gaze: Forced deviation (Left) Visual: No visual loss Facial Palsy: Minor paralyis Motor Arm (Right): No drift Motor Arm (Left): No drift Motor Leg (Right): No drift Motor Leg (Left): No drift Limb Ataxia: Absent Sensory: Normal Best Language: Mild to moderate aphasia Dysarthia: Normal Extinction and Inattention: No abnormality Score: 8 Critical Care Time Critical Care Time Critical Care Time: Yes Total Critical Care Time: 60 Attestation: The patient was critically ill with a high probability of imminent or life- threatening deterioration. I spent greater than 30 minutes of discontinuous time evaluating the patient, delivering critical care at the bedside, discussing evaluating data with consultants. Critical care time does not include time spent performing separately billable procedures or teaching. Time spent performing critical care was 60 minutes. Discharge Plan Discharge Clinical Impression: Brain TIA, Unresponsive episode Patient Disposition: [facility] Instructions: Transient Ischemic Attack (ED) Prescriptions: No Action lisinopril-hydrochlorothiazide 10-12.5 mg tablet 1 tab PO DAILY acetaminophen [Tylenol] 325 mg Tablet 325 mg PO DAILY PRN (Reason: Pain/Fever) levothyroxine 112 mcg tablet 112 mcg PO DAILY@0600 insulin glargine 100 unit/mL (3 mL) insulin pen 24 unit subcut DAILY insulin aspart U-100 100 unit/mL (3 mL) insulin pen See Protocol subcut TIDAC Protocol: Insulin Correction Scale Less than or equal to 110 ---- Give (units): 0 111 to 150 Give (units): 0 151 to 200 Give (units): 2 201 to 250 Give (units): 4 251 to 300 Give (units): 6 301 to 350 Give (units): 8 Greater than 350 Give (units): 10 Call MD if Blood Glucose > : 350 metoprolol succinate 25 mg tablet extended release 24 hr 25 mg PO DAILY pravastatin 80 mg tablet 80 mg PO DAILY calcium carbonate-vitamin D3 600 mg-10 mcg (400 unit) capsule PO Print Language: Chinese
[2025-02-04] MEDS: iohexoL 350 MG/ML 100 ML INFUS..BTL IV (14:58)
[2025-02-04 15:02] VITALS: BP 150/58; PULSE 60; RESP 16; TEMP 36.4; O2SAT 98; BMI 29.4
[2025-02-04 15:05] LABS: MANUAL DIFF FLAG NO
[2025-02-04 15:07] LABS: Basophils Absolute Auto 0.1 X10*3/uL (0.0-0.2); Basophils Percent Auto 0.7 % (0-2); Eosinophils Absolute Auto 0.1 X10*3/uL (0.0-0.4); Eosinophils Percent Auto 0.7 % (0-4); Hematocrit 30.2 % (37.0-47.0); Imm Gran Abs Auto 0.03 X10*3/uL (0.00-0.03); Imm Gran Pct Auto 0.4 % (0.0-0.4); Lymphocytes Absolute Auto 1.4 X10*3/uL (1.2-4.9); Lymphocytes Percent Auto 16.3 % (20-40); Mean Corpuscular HGB Conc 33.1 g/dl (31.0-35.0); Mean Corpuscular Hemoglobin 25.8 pg (27.0-33.0); Mean Corpuscular Volume 77.8 fL (80.0-98.0); Mean Platelet Volume 10.6 fL (9.4-12.3); Monocytes Absolute Auto 0.5 X10*3/uL (0.1-1.2); Monocytes Percent Auto 6.4 % (2-11); Neutrophils Absolute Auto 6.2 x10*3/uL (2.0-8.3); Neutrophils Percent Auto 75.5 % (45-73); Platelet Count 206 X10*3/uL (160-400); Red Blood Count 3.88 X10*6/uL (4.20-5.50); Red Cell Distribution Width 15.6 % (11.0-16.0); White Blood Count 8.3 X10*3/uL (4.8-10.8)
[2025-02-04 15:13] LABS: INTERNATIONAL NORM RATIO 1.1 (0.9-1.1); Prothrombin Time 12.5 SEC (10.9-12.4)
[2025-02-04 15:16] LABS: Partial Thromboplastin Time 24.8 SEC (26.0-36.8)
[2025-02-04 15:17] LABS: Stroke Lab Use COMPLETE
[2025-02-04 15:21] LABS: Anion Gap 13 (12-20); Blood Urea Nitrogen 21 mg/dL (9-16); Calcium 8.5 mg/dL (8.4-10.2); Carbon Dioxide 22 mmol/L (22-29); Chloride 105 mmol/L (96-108); Cholesterol 123 mg/dL (<200); Creatinine Clr Calc Pharmacy 37.6; Estimated Glomerular Filt Rate 47; Glucose Random 196 mg/dL (60-115); HDL Cholesterol 35 mg/dL (>40); LDL Cholesterol Calculated 61 mg/dL (<100); Potassium 4.2 mmol/L (3.3-5.1); Sodium 136 mmol/L (135-145); Triglycerides 138 mg/dL (<150)
[2025-02-04 15:28] LABS: Troponin-I High Sensitivity 5.2 ng/L (<3.5-17.0)
[2025-02-04 16:42] VITALS: BP 138/40; PULSE 56; RESP 16; TEMP 36.9; O2SAT 95
[2025-02-04 18:36] VITALS: BP 138/40; PULSE 56; RESP 16; TEMP 36.9; O2SAT 95
== END 2025-02-04 18:36 | disposition skilled nursing facility (03) ==
PROVIDERS: Emergency Provider Emergency Medicine
DX: G45.9 Transient cerebral ischemic attack, unspecified (principal); R40.4 Transient alteration of awareness; R29.708 NIHSS score 8; E11.9 Type 2 diabetes mellitus without complications; I44.7 Left bundle-branch block, unspecified; Z79.4 Long term (current) use of insulin; Z79.02 Long term (current) use of antithrombotics/antiplatelets; Z79.899 Other long term (current) drug therapy
CPT/HCPCS: 36415; 70450; 70496; 70498; 80048; 80061; 82947; 84484; 85025; 85610; 85730; 93005; 99284; Q9967

== ENCOUNTER → 2025-02-04 14:30 | Outpatient (BNV) | payer MEDICARE, OTHER, SELFPAY | PROVIDERS: Emergency Provider Emergency Medicine; Visit Provider Radiology Vascular & Interventional Radiology | DX: D32.0 Benign neoplasm of cerebral meninges (principal); I65.23 Occlusion and stenosis of bilateral carotid arteries; R90.82 White matter disease, unspecified | CPT/HCPCS: 70450; 70496; 70498 ==

== ENCOUNTER → 2025-02-04 14:30 | Outpatient (BNV) | payer MEDICARE, OTHER, SELFPAY | PROVIDERS: Emergency Provider Emergency Medicine; Visit Provider Internal Medicine Cardiovascular Disease | DX: I49.1 Atrial premature depolarization (principal); I44.7 Left bundle-branch block, unspecified | CPT/HCPCS: 93010 ==

== ENCOUNTER 2025-02-08 11:32 | Inpatient (IN) | payer MEDICARE, OTHER, SELFPAY ==
[2025-02-08] VITALS (9 sets, daily range): BP systolic 128–169; BP diastolic 39–98; PULSE 47–70; RESP 14–18; TEMP 36.4–36.6; O2SAT 95–99; BMI 28.2
--- NOTE | 2025-02-08 12:06 | ECG_ITS ---
Test Reason : SYNCOPE Blood Pressure : */* mmHG Vent. Rate : 48 BPM Atrial Rate : 48 BPM P-R Int : 194 ms QRS Dur : 158 ms QT Int : 524 ms P-R-T Axes : * -7 38 degrees QTcB Int : 468 ms Sinus bradycardia Left bundle branch block Abnormal ECG When compared with ECG of 04-Feb-2025 14:58, Premature atrial complexes are no longer Present Nonspecific T wave abnormality, improved in Inferior leads Nonspecific T wave abnormality, improved in Lateral leads Referred By: Eder Fitzpatrick Electronically Signed By: RAMY SKELTON MD
--- NOTE | 2025-02-08 12:15 | ED.SYNCOPE ---
HPI - Syncope General Chief Complaint: Syncope Stated Complaint: Syncope x4 days Time Seen by Provider: 02/08/25 11:47 Source: patient Mode of arrival: EMS Limitations: no limitations History of Present Illness ED Provider: Dr. 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 Patient states she was had at least 3 syncopal episodes in the past without finding a clear etiology. She states that she had a left femur fracture 3 months prior and is currently in rehab at the nursing facility. She states that she was doing physical therapy which involved sitting and standing with her walker. She was then taken back to her room and then had a syncopal episode. She does not remember the details of the syncopal episode but she did not have any prodromal symptoms. At the time my evaluation she had no complaints. I did review the patient's 2 previous ED visits where she had a syncopal and near syncopal episode. Patient was seen on 01/17/2025 for evaluation of lightheadedness and near syncopal episode during physical therapy. At that time was noted that her blood pressure was low. Patient's CT scan of the brain was unremarkable. Urinalysis was positive in her symptoms were attributed to a urinary tract infection, she was treated with Ceftin x5 days. Urine culture from that visit grew Proteus mirabilis and Klebsiella pneumonia which was sensitive to cephalosporins. Her 2nd syncopal episode was on 02/04/2025 while she was sitting in a chair getting her hair groomed and became unresponsive. Patient had a workup which did include a CT scan of the brain which was unremarkable. It was felt that she may have had a TIA and she was discharged back to care facility. Patient also had a syncopal episode 10/31/2024, fell in her kitchen on 10/31/2024, she was lightheaded and dizzy prior to the fall and did sustain a fracture to her left femur. Which was repaired here at [facility]. I did review the orthopedic office note from 02/02/2025. The patient was 3 months post ORIF of left femur fracture on 11/02/[address] Baumann. Patient was to remain nonweightbearing and there was no significant findings on that office visit. Review of systems were negative for fever, chills, cough, chest pain, shortness of breath, dyspnea on exertion, nausea, vomiting, diarrhea, frequency, urgency, dysuria, dark stools or bloody stools. Related Data Home Medications ?Medication ?Instructions ?Recorded ?Confirmed insulin aspart U-100 100 unit/mL See Protocol subcut TIDAC 04/03/21 11/24/24 (3 mL) subcutaneous pen insulin glargine 100 unit/mL (3 24 unit subcut DAILY 04/03/21 11/24/24 mL) subcutaneous pen metoprolol succinate 25 mg 25 mg PO DAILY 02/12/23 11/24/24 tablet,extended release 24 hr pravastatin 80 mg tablet 80 mg PO DAILY 02/12/23 11/24/24 acetaminophen 325 mg tablet 325 mg PO DAILY PRN Pain/Fever 10/31/24 11/24/24 (Tylenol) levothyroxine 112 mcg tablet 112 mcg PO DAILY@0600 10/31/24 11/24/24 lisinopril 10 1 tab PO DAILY 10/31/24 11/24/24 mg-hydrochlorothiazide 12.5 mg tablet calcium 600 mg (as cap PO 02/02/25 carbonate)-vitamin D3 10 mcg (400 unit) capsule Allergies Allergy/AdvReac Type Severity Reaction Status Date / Time adhesive tape [Adhesive Tape] Allergy Unknown SKIN Verified 02/08/25 11:54 REDNESS Review of Systems Review of Systems: Yes all other systems are reviewed and are negative [facility] Past Medical History [facility] Narrative: Social history: Patient was currently in acute rehab facility for her left femur fracture. 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 Vital Signs: Vital Signs: Last Vital Signs Temp 97.8 F 02/08/25 11:52 Pulse 60 02/08/25 14:24 Resp 16 02/08/25 14:24 BP 128/50 L 02/08/25 14:24 Pulse Ox 96 02/08/25 14:45 O2 Del Method Room Air 02/08/25 14:45 BMI result Body Mass Index 28.2 Vital signs revealed bradycardia with a rate of 48 and an elevated blood pressure of 169/95 Exam: General: Awake, alert in no distress Head: Normocephalic, atraumatic EENT: PERRL, Lids normal, sclera normal, conjunctiva normal, nose normal , ears normal, throat without erythema or exudates Neck: Supple, no adenopathy Lung: breath sounds symmetric, no wheezing, rales or rhonchi Chest: symmetric movement, nontender Heart: Bradycardia with a regular rhythm, normal S1, S2 no murmurs or rubs Abdomen: soft, non-tender, nondistended, normal bowel sounds Back: no vertebral tenderness, no CVAT Extremities: no deformities, moves all extremities symmetrically, left lateral thigh surgical site is well healed did no erythema or increased warmth. 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 Patient states she was had at least 3 syncopal episodes in the past without finding a clear etiology. She states that she had a ORIF left femur fracture 3 months prior-repaired at [facility] by Dr. Baumann and is currently in rehab at the nursing facility. Patient had an unwitnessed syncopal episode after physical therapy. She was no memory of the event in denies any prodromal symptoms. This is the patient's 3rd visit to [facility] ED for syncope. Vital signs revealed an elevated blood pressure and a low heart rate otherwise unremarkable. Physical examination was unremarkable Differential diagnosis: ?Includes but is not limited to bradyarrhythmia, tachyarrhythmia, myocardial infarction, myocardial ischemia, anemia, electrolyte abnormalities Course: 14:09 My independent interpretation patient's laboratory evaluation is as follows: Microcytic anemia with an H&H of 11.2 and 35.2 with an MCV of 79.5, this is chronic. Sodium low 134. BUN elevated 19 with a normal creatinine of 0.82. Glucose elevated 234. AST elevated 33. Troponin was detectable but not elevated at 4.8. Repeat troponin due at 15:20 hours. COVID-19, influenza and RSV tests were negative. Urinalysis pending collection. Patient was 12 EKG revealed a sinus bradycardia otherwise unremarkable. On the conveyor monitor the lowest heart rate was 43 with no significant pauses noted by the ED monitor car operator. 16:43 The patient's urinalysis was positive for protein, glucose, blood, leukocyte esterase. Microscopic revealed 3-5 RBCs, greater than 50 WBCs, he was squamous scale is, no bacteria. Previous urinalysis that were positive had 4+ bacteria. Given this finding I do not think that she needs to be treated for urinary tract infection and I do not think this is the cause of her syncopal episode. The patient's initial troponin was 4.8 and 3 hour repeat was 3.5 which is reassuring suggesting that she did not have myocardial infarction myocardial injury is the cause of her syncope. The patient did have orthostatic vital signs: Lying: BP 140/55, heart rate 54 Sitting: BP 128/50, heart rate 55 Standing: BP 121/55, heart rate 60 The patient did have a 20 point drop in her systolic blood pressure but no change in her heart rate. She was asymptomatic and had no lightheadedness or dizziness with standing. On the conveyor monitor the lowest heart rate was 43 with no significant pauses noted by the ED monitor car operator. This is the patient's 3rd syncopal episode in 1 month. I am concerned that the patient may be having a Adilson or tachyarrhythmia as the cause of her symptoms therefore I discuss admission with the covering hospitalist,Dr. Oreilly and the patient will be admitted for further evaluation. Admission/Observation Consideration of admission/observation: Escalation of care including admission/observation considered (Yes) Lab Data MDM Lab Attestation statement: I reviewed the patient's lab results. 02/08/25 12:19 02/08/25 12:19 Labs: Lab Results 02/08/25 02/08/25 02/08/25 Range/Units 12:19 15:01 15:42 WBC 9.3 (4.8-10.8) X10*3/uL RBC 4.43 (4.20-5.50) X10*6/uL Hgb 11.2 L (12.0-16.0) g/dl Hct 35.2 L (37.0-47.0) % MCV 79.5 L (80.0-98.0) fL MCH 25.3 L (27.0-33.0) pg MCHC 31.8 (31.0-35.0) g/dl RDW 15.8 (11.0-16.0) % Plt Count 233 (160-400) X10*3/uL MPV 10.9 (9.4-12.3) fL Immature Gran % (Auto) 0.9 H (0.0-0.4) % Neut % (Auto) 72.8 (45-73) % Lymph % (Auto) 18.0 L (20-40) % Valley % (Auto) 6.2 (2-11) % Eos % (Auto) 1.3 (0-4) % Baso % (Auto) 0.8 (0-2) % Lymph # (Auto) 1.7 (1.2-4.9) X10*3/uL Valley # (Auto) 0.6 (0.1-1.2) X10*3/uL Eos # (Auto) 0.1 (0.0-0.4) X10*3/uL Baso # (Auto) 0.1 (0.0-0.2) X10*3/uL Abs Immat Gran (auto) 0.08 H (0.00-0.03) X10*3/uL Absolute Neuts (auto) 6.8 (2.0-8.3) x10*3/uL Absolute Nucleated RBC 0.000 (0.0-0.012) X10*3/uL Nucleated RBC % (auto) 0.0 (0.0-0.2) /100WBC Hold Blue Top SEE NOTE Sodium 134 L (135-145) mmol/L Potassium 4.5 (3.3-5.1) mmol/L Chloride 103 (96-108) mmol/L Carbon Dioxide 25 (22-29) mmol/L Anion Gap 11 L (12-20) BUN 19 H (9-16) mg/dL Creatinine 0.82 (0.5-1.4) mg/dL Estim Creat Clear Calc 49.4 Estimated GFR > 60 Random Glucose 234 H (60-115) mg/dL Calcium 9.0 (8.4-10.2) mg/dL Total Bilirubin 0.4 (0.0-1.0) mg/dL AST 33 H (5-31) U/L ALT 14 (0-31) U/L Alkaline Phosphatase 93 (39-117) U/L Troponin I High Sens 4.8 3.5 (<3.5-17.0) ng/L Total Protein 6.6 (6.5-8.0) g/dL Albumin 3.4 L (3.5-5.0) g/dL Urine Color Yellow Urine Appearance Cloudy Urine pH 5.5 (5.0-9.0) Ur Specific [place] 1.015 (1.005-1.025) Urine Protein 30 (1+) H (Neg-Trace) mg/dL Urine Glucose (UA) 500 H (Negative) mg/dL Urine Ketones Negative (Negative) mg/dL Urine Blood Small (1+) H (Negative) Urine Nitrite Negative (Negative) Ur Leukocyte Esterase Large (3+) H (Negative) Urine RBC 3-5 H (0-2) /HPF Urine WBC >50 H (0-5) /HPF Ur Squamous Epith Cells 0-2 (0-2) /HPF Urine Bacteria None Seen (None Seen) Hyaline Casts 0-2 (0-2) /LPF Urine Yeast Present Influenza Type A (PCR) NEGATIVE (Negative) Influenza Type B (PCR) NEGATIVE (Negative) RSV RNA Qual (PCR) NEGATIVE (Negative) SARS-CoV-2 RNA (RT-PCR) NEGATIVE (Negative) Independent Interpretation I performed an independent interpretation of an: EKG Interpretation: My independent interpretation patient's 12 EKG done in 02/08/2022 high that 12:40 hours is as follows: Sinus bradycardia with a rate of 48, normal TX interval, prolonged QRS of 158 milliseconds, normal QTC of 468 milliseconds, left bundle-branch block, no ST segment elevation, no ST segment depression. Compared to EKG dated 02/04/2025 at 14:58 hours, patient had a sinus rhythm with a rate of 63, prolonged QTC of 513 milliseconds, left bundle-branch block is old. External Record Review External record reviewed: Office record Discharge Plan Discharge Prescriptions: No Action lisinopril-hydrochlorothiazide 10-12.5 mg tablet 1 tab PO DAILY acetaminophen [Tylenol] 325 mg Tablet 325 mg PO DAILY PRN (Reason: Pain/Fever) levothyroxine 112 mcg tablet 112 mcg PO DAILY@0600 insulin glargine 100 unit/mL (3 mL) insulin pen 24 unit subcut DAILY insulin aspart U-100 100 unit/mL (3 mL) insulin pen See Protocol subcut TIDAC Protocol: Insulin Correction Scale Less than or equal to 110 ---- Give (units): 0 111 to 150 Give (units): 0 151 to 200 Give (units): 2 201 to 250 Give (units): 4 251 to 300 Give (units): 6 301 to 350 Give (units): 8 Greater than 350 Give (units): 10 Call MD if Blood Glucose > : 350 metoprolol succinate 25 mg tablet extended release 24 hr 25 mg PO DAILY pravastatin 80 mg tablet 80 mg PO DAILY calcium carbonate-vitamin D3 600 mg-10 mcg (400 unit) capsule PO Print Language: Telugu
[2025-02-08 12:26] LABS: MANUAL DIFF FLAG NO
[2025-02-08 12:31] LABS: Basophils Absolute Auto 0.1 X10*3/uL (0.0-0.2); Basophils Percent Auto 0.8 % (0-2); Eosinophils Absolute Auto 0.1 X10*3/uL (0.0-0.4); Eosinophils Percent Auto 1.3 % (0-4); Hematocrit 35.2 % (37.0-47.0); Hemoglobin 11.2 g/dl (12.0-16.0); Imm Gran Abs Auto 0.08 X10*3/uL (0.00-0.03); Imm Gran Pct Auto 0.9 % (0.0-0.4); Lymphocytes Absolute Auto 1.7 X10*3/uL (1.2-4.9); Mean Corpuscular HGB Conc 31.8 g/dl (31.0-35.0); Mean Corpuscular Hemoglobin 25.3 pg (27.0-33.0); Mean Corpuscular Volume 79.5 fL (80.0-98.0); Mean Platelet Volume 10.9 fL (9.4-12.3); Monocytes Absolute Auto 0.6 X10*3/uL (0.1-1.2); Monocytes Percent Auto 6.2 % (2-11); Neutrophils Absolute Auto 6.8 x10*3/uL (2.0-8.3); Neutrophils Percent Auto 72.8 % (45-73); Platelet Count 233 X10*3/uL (160-400); Red Blood Count 4.43 X10*6/uL (4.20-5.50); Red Cell Distribution Width 15.8 % (11.0-16.0); White Blood Count 9.3 X10*3/uL (4.8-10.8)
[2025-02-08 12:49] LABS: Troponin-I High Sensitivity 4.8 ng/L (<3.5-17.0)
[2025-02-08 12:54] LABS: Alanine Aminotransferase 14 U/L (0-31); Albumin Level 3.4 g/dL (3.5-5.0); Alkaline Phosphatase 93 U/L (39-117); Anion Gap 11 (12-20); Aspartate Amino Transferase 33 U/L (5-31); Bilirubin Total 0.4 mg/dL (0.0-1.0); Blood Urea Nitrogen 19 mg/dL (9-16); Carbon Dioxide 25 mmol/L (22-29); Chloride 103 mmol/L (96-108); Creatinine Clr Calc Pharmacy 49.4; Estimated Glomerular Filt Rate > 60; Glucose Random 234 mg/dL (60-115); Potassium 4.5 mmol/L (3.3-5.1); Sodium 134 mmol/L (135-145); Total Protein 6.6 g/dL (6.5-8.0)
[2025-02-08 13:20] LABS: Influenza A PCR NEGATIVE (Negative); Influenza B PCR NEGATIVE (Negative); Resp Syncy Virus RNA Qual PCR NEGATIVE (Negative); SARS COV2 PCR INHOUSE NEGATIVE (Negative)
--- NOTE | 2025-02-08 15:09 | PC.NURSE ---
patient states that she was meeting with physical therapy when she had a syncopal episode. denies any symptoms leading to this event. states she has just begun ambulating again w/ PT recently. IV established, straight cath to obtain urine sample with 150mL output. patient continues to remain alert and oriented and denies any pain at this time.
[2025-02-08 15:10] LABS: Appearance Urine Cloudy; Color Urine Yellow; Glucose Urine UA 500 mg/dL (Negative); Leukocyte Esterase Urine Large (3+) (Negative); Nitrite Urine Negative (Negative); PH 5.5 (5.0-9.0); Specific Gravity - Urine 1.015 (1.005-1.025); UMIC TRIGGER UACC YES; Urine Blood Small (1+) (Negative); Urine Ketones Negative (Negative); Urine Protein 30 (1+) mg/dL (Neg-Trace)
[2025-02-08 15:27] LABS: Bacteria Urine None Seen (None Seen); Hyaline Casts Urine 0-2 /LPF (0-2); Squamous Epithelial Cell Urine 0-2 /HPF (0-2); UACC Culture Trigger YES; WBC Urine >50 /HPF (0-5)
[2025-02-08 16:07] LABS: Troponin-I High Sensitivity 3.5 ng/L (<3.5-17.0)
--- NOTE | 2025-02-08 17:12 | P.HPHOSP_ITS ---
History of Present Illness Date of Service: 02/08/25 Chief Complaint: syncope 89yo F with arthritis, LBBB, DM2, hx R mastectomy, and CAD with branch vessel ischemia sent in from [facility], where she is undergoing rehabilitation after sustaining a L femur fracture 3 months ago and undergoing ORIF 11/02/24. She had an unwitnessed syncopal episode after doing PT which is actually her 3rd one this month. She does not remember losing consciousness or having any prodromal lightheadedness and currently feels fine. She was seen in the ED 01/17/25 for near-syncope during PT that was attributed to hypotension; she had a UTI that was treated with appropriate antibiotics. She was seen again in the ED 02/04/25 for syncopal episode that occured while she was sitting. She was discharged with provisional diagnosis of TIA. Here in the ED, serial hs-Tn-I were 4.8 then 3.5. Orthostatics had her BP dropping from 140/55 to 121/55 but no change in heart rate and no symptoms of lightheadedness. She was noted to be in sinus bradycardia with rate as low as 43. Review of Systems 2 Review of Systems: Yes all other systems are reviewed and are negative [facility] Medical History Patellofemoral arthritis of right knee Diabetes mellitus Left bundle branch block CAD (coronary artery disease) Surgical History Hx of mastectomy Hx of mastectomy Social History Household Members: None Housing: House Do you presently have visiting nurse or other home services: No Patient Tobacco Use Status: Never used Tobacco Advance Directives: Yes Advance Directives on File: Yes Advance Directives Date on File: 11/01/24 Do you have a plan to hurt others: No Plan service: No Current occupational status: 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 Allergies Allergy/AdvReac Type Severity Reaction Status Date / Time adhesive tape [Adhesive Tape] Allergy Unknown SKIN Verified 02/08/25 11:54 REDNESS Home Medications ?Medication ?Instructions ?Recorded ?Confirmed ?Last Taken ?Type metoprolol succinate 25 mg 25 mg PO DAILY 02/12/23 02/08/25 10/31/24 History tablet,extended release 24 hr acetaminophen 325 mg tablet 650 mg PO Q4-6H PRN Pain/Fever 10/31/24 02/08/25 Unknown History (Tylenol) levothyroxine 112 mcg tablet 112 mcg PO DAILY@0600 10/31/24 02/08/25 10/31/24 History calcium 600 mg (as 1 cap PO BID 02/02/25 02/08/25 Unknown History carbonate)-vitamin D3 10 mcg (400 unit) capsule albuterol sulfate 90 mcg/actuation 2 inh inhalation Q4H PRN 02/08/25 02/08/25 Unknown History breath activated powder inhaler SOB/wheeze/cough bisacodyl 10 mg rectal suppository 10 mg VA DAILY PRN Constipation 02/08/25 02/08/25 Unknown History (Dulcolax (bisacodyl)) cyanocobalamin (vitamin B-12) 100 100 mcg PO DAILY 02/08/25 02/08/25 Unknown History mcg tablet guaifenesin 100 mg/5 mL oral liquid 200 mg PO Q4H PRN Cough 02/08/25 02/08/25 Unknown History insulin lispro 100 unit/mL See Protocol subcut TIDWM 02/08/25 02/08/25 Unknown History subcutaneous solution insulin lispro protamine-lispro 20 unit subcut DAILY@0900 02/08/25 02/08/25 Unknown History 100 unit/mL (75-25) subcutaneous pen (Humalog Mix 75-25 KwikPen) insulin lispro protamine-lispro 25 unit subcut DAILY@199902/08/25 02/08/25 Unknown History 100 unit/mL (75-25) subcutaneous pen (Humalog Mix 75-25 KwikPen) lisinopril 10 mg tablet 10 mg PO DAILY 02/08/25 02/08/25 Unknown History loperamide 2 mg capsule 2 mg PO Q8H PRN Loose Stool 02/08/25 02/08/25 Unknown History magnesium hydroxide 400 mg/5 mL 30 ml PO DAILY PRN Constipation 02/08/25 02/08/25 Unknown History oral suspension (Milk of Magnesia) nystatin 100,000 unit/gram topical 1 appl topical Q4H PRN fungal rash 02/08/25 02/08/25 Unknown History cream ondansetron HCl 4 mg tablet 4 mg PO Q8H PRN nausea/vomiting 02/08/25 02/08/25 Unknown History pravastatin 40 mg tablet 80 mg PO BEDTIME 02/08/25 02/08/25 Unknown History tamsulosin 0.4 mg capsule 0.8 mg PO BEDTIME 02/08/25 02/08/25 Unknown History tramadol 50 mg tablet 50 mg PO Q8H PRN moderate to 02/08/25 02/08/25 Unknown History severe pain zinc sulfate 220 mg capsule 220 mg PO DAILY 02/08/25 02/08/25 Unknown History Physical Exam 2 Vital Signs and Narrative: Vital Signs: Last Vital Signs Temp 97.8 F 02/08/25 11:52 Pulse 60 02/08/25 14:24 Resp 16 02/08/25 14:24 BP 128/50 L 02/08/25 14:24 Pulse Ox 96 02/08/25 14:45 O2 Del Method Room Air 02/08/25 14:45 BMI result Body Mass Index 28.2 Gen: in no acute distress HEENT: sclera anicteric, moist mucus membranes Neck: supple Lungs: clear to auscultation bilaterally Heart: regular rate and rhythm, no murmurs Abd: soft, non-tender, non-distended Ext: no edema Skin: warm/well-perfused Neuro: alert and oriented x3, no focal findings Psych: appropriate affect Results Labs 02/08/25 12:19 02/08/25 12:19 Labs: Laboratory Results - last 24 hr 02/08/25 02/08/25 12:19 15:01 MCV 79.5 L MCH 25.3 L MCHC 31.8 RDW 15.8 Plt Count 233 MPV 10.9 Immature Gran % (Auto) 0.9 H Neut % (Auto) 72.8 Lymph % (Auto) 18.0 L [place] % (Auto) 6.2 Eos % (Auto) 1.3 Baso % (Auto) 0.8 Lymph # (Auto) 1.7 [place] # (Auto) 0.6 Eos # (Auto) 0.1 Baso # (Auto) 0.1 Abs Immat Gran (auto) 0.08 H Absolute Neuts (auto) 6.8 Absolute Nucleated RBC 0.000 Nucleated RBC % (auto) 0.0 Hold Blue Top SEE NOTE Anion Gap 11 L Estim Creat Clear Calc 49.4 Estimated GFR > 60 Random Glucose 234 H Calcium 9.0 Total Bilirubin 0.4 AST 33 H ALT 14 Alkaline Phosphatase 93 Total Protein 6.6 Albumin 3.4 L Urine Color Yellow Urine Appearance Cloudy Urine pH 5.5 Ur Specific [place] 1.015 Urine Protein 30 (1+) H Urine Glucose (UA) 500 H Urine Ketones Negative Urine Blood Small (1+) H Urine Nitrite Negative Ur Leukocyte Esterase Large (3+) H Urine RBC 3-5 H Urine WBC >50 H Ur Squamous Epith Cells 0-2 Urine Bacteria None Seen Hyaline Casts 0-2 Urine Yeast Present Influenza Type A (PCR) NEGATIVE Influenza Type B (PCR) NEGATIVE RSV RNA Qual (PCR) NEGATIVE SARS-CoV-2 RNA (RT-PCR) NEGATIVE Assessment and Plan (1) Syncope: Status: Acute Plan 89yo F with arthritis, LBBB, DM2, hx R mastectomy, and CAD with branch vessel ischemia sent in from STR at [facility] with 3rd syncopal episode. Noted to be bradycardic. syncope - admit to telemetry, cardiac monitoring, TTE, Cardiology consult; hold metoprolol succinate due to bradycardia HTN - continue lisinopril; hold metoprolol succinate CAD - continue pravastatin DM2 - basal-bolus insulin hypothyroidism - continue LT4 VTE prophylaxis - enoxaparin dispo - return to [facility] eventually code status - DNR I anticipate that the patient will stay at least 2 midnights as an inpatient in the hospital due to the above reasons. It is neither reasonable nor safe to care for them in a less acute setting. Quality Stroke Does the patient have a stroke diagnosis?: No VTE Prior VTE?: No VTE Risk Level:: Medical - moderate - high VTE Device Contraindication: N/A - Device Ordered VTE Drug Contraindication: N/A - Med Ordered
--- NOTE | 2025-02-08 18:06 | PHA.MEDREC ---
Addendum entered by Wil Sullivan [facility] 02/08/25 18:14: med rec reviewed Original Note: Pharmacy Consult ? Medication Reconciliation Pharmacy has completed the medication reconciliation. Used list from [facility]. Called them to confirm Humalog Mix times and dosing.
[2025-02-08] MEDS: Insulin Lispro 100 UNIT/ML 3 ML VIAL SUBCUT ×2 (21:28→21:37)
[2025-02-08] MEDS: Tamsulosin HCL 0.4 MG CAPSULE 0.8 MG PO (21:28)
[2025-02-08] MEDS: Enoxaparin Sodium 40 MG/0.4 ML SYRINGE SUBCUT (21:29)
[2025-02-08] MEDS: Calcium + Vitamin D 250 MG TABLET PO (21:30)
[2025-02-08] MEDS: Insulin Glargine,Hum.rec.anlog 100 UNIT/ML 10 ML VIAL 10 UNIT SUBCUT (21:37)
[2025-02-08] MEDS: Pravastatin Sodium 80 MG TABLET PO (21:38)
--- NOTE | 2025-02-08 23:13 | MHC.EDTECH ---
this tech assumed care of pt at 2300 from Alicia (ball holder)
[2025-02-09] VITALS (8 sets, daily range): BP systolic 118–157; BP diastolic 40–82; PULSE 46–82; RESP 12–18; TEMP 36.4–37.3; O2SAT 95–100
[2025-02-09] MEDS: 0.9 % Sodium Chloride Flush 3 ML SYRINGE IVFLUSH ×4 (04:13→20:44)
[2025-02-09 04:22] LABS: Glucose, Whole Blood 284 mg/dL (60-115)
[2025-02-09 04:22] LABS: Glucose, Whole Blood 489 mg/dL (60-115)
[2025-02-09 04:22] LABS: Glucose, Whole Blood 509 mg/dL (60-115)
[2025-02-09] MEDS: Levothyroxine Sodium 112 MCG TABLET PO (06:39)
--- NOTE | 2025-02-09 07:00 | CA_ITS ---
Transthoracic Echocardiogram Patient (Last, First, Middle): Lisa Holliday A Gender: Female Date of : 1935 Age: 89 Procedure Date: 02/09/2025 Procedure Type: Transthoracic Echocardiogram Location: ER Height: 167.64 cm Weight: 79.38 kg BSA: 1.89 m2 Heart Rate: bpm BP: 157 / 50 mmHg Communications Department Head: ANALISA Referring MD: Michel Oreilly MD Inventory Manager: Danilo Avila MD Symptoms: syncope, bradycardia Study Quality: Fair, contrast ECG Rhythm: Sinus Conclusions: - 1. Normal LV ejection fraction 60 65% with elevated filling pressures 2. Normal cardiac valvular Dopplers 3. Normal RV systolic pressure 4. No gross pericardial effusion Findings Procedure Information Contrast agent, definity, is being given per protocol without apparent complications. Left Ventricle Normal left ventricular size, thickness, and systolic function. The visually estimated ejection fraction is between 60-65%. There is paradoxical septal motion consistent with a left bundle branch block. Spectral Doppler is indicative of an impaired relaxation filling pattern. Elevated left atrial and left ventricular end-diastolic pressures. E/E prime ratio is >15, consistent with elevated filling pressures. Right Ventricle Normal right ventricular cavity size and systolic function. Atria The left atrium is normal in size. There is no evidence of interatrial shunt. The right atrium is normal in size. Aortic Valve Normal aortic valve structure and function. There is no aortic valve stenosis. There is no aortic valve regurgitation. Mitral Valve There is mild anterior and posterior mitral leaflet thickening. There is trace mitral valve regurgitation. There is no mitral valve stenosis. Pulmonic Valve The pulmonic valve was not well visualized. Tricuspid Valve Likely normal tricuspid valve structure and function. There is mild tricuspid valve regurgitation. The right ventricular systolic pressure is normal. The right ventricular systolic pressure is 31 mmHg. Normal right atrial pressure. There is no evidence of pulmonary hypertension. Great Vessels All visible segments of the aorta are normal in size. The aorta was not well visualized. The pulmonary artery was not well visualized. Venous The inferior vena cava is normal in size and collapses greater than 50% with inspiration. Pericardium/Pleural There is no evidence of pericardial effusion. Prior Study Comparison No significant change compared to prior study dated: 02/26/2023. Measurements 2D Linear Measurements IVSd: 1.04 0.6-0.9/0.6-1.0 cm LVIDd: 4.96 3.9-5.3/4.2-5.9 cm LVIDd Index: 2.62 2.4-3.2/2.2-3.1 cm/m2 LVIDs: 4.17 2.0-3.6 cm LVPWd: 1.07 0.7-1.1 cm LA Diam: 3.10 2.7-3.8/3.0-4.0 cm LAIDs Index: 1.64 1.5-2.3 cm/m2 LV Mass: 240.62 67-162/88-224 g LV Mass Index: 127.31 43-95/49-115 g/m2 LVOT Diam: 2.10 3.0+(-)1.3 cm 2D Systolic Function EF 4C: 65.60 >55% EF 2C: 59.00 >55% EF BiP: 60.50 >55% Mitral Valve MV Pk E: 0.92 MV PK A: 0.86 MV Decel Time: 261.00 E/A: 1.10 E'Lateral: 4.90 E'Medial: 5.44 E/E' Med: 16.90 E/E' Lat: 18.80 PHT: 77.00 MVA PHT: 2.86 Decel [place]: 3.52 Aortic Valve AoV Pk Yunior: 1.41 AoV Mn Yunior: 1.01 AoV VTI: 0.37 AoV Pk Grad: 8.00 Aov Mn Grad: 4.00 SALLIE Cont.VTI: 1.92 LVOT LVOT Pk Yunior: 0.84 LVOT Mn Yunior: 0.53 LVOT VTI: 0.21 LVOT Pk Grad: 3.00 LVOT Mn Grad: 1.00 LVOT Diam: 2.10 LVOT Area: 3.46 Diastolic Function MV Pk E: 0.92 MV Pk A: 0.86 E/A: 1.10 E'Medial: 5.44 E/E' Med: 16.90 E' Laterial: 4.90 E/E' Lat: 18.80 Right Ventricle TAPSE (mm): 31.10 TVS' Yunior: 11.40 Tricuspid Valve TR Pk Yunior: 2.63 TR Pk Grad: 28.00 RA Press: 3.00 RVSP: 31.00 Great Vessels Aorta Sinus of Valsalva: 3.32 2.0-3.5 cm Updated in Other Vendor System with Status of Final Danilo Avila MD electronically signed on 02/09/2025 3:39:04 PM with status of Final
[2025-02-09] MEDS: Insulin Lispro 100 UNIT/ML 3 ML VIAL SUBCUT ×4 (07:29→22:18)
[2025-02-09 08:10] LABS: Glucose, Whole Blood 320 mg/dL (60-115)
[2025-02-09 09:04] LABS: Hematocrit 34.2 % (37.0-47.0); Hemoglobin 11.2 g/dl (12.0-16.0); Mean Corpuscular HGB Conc 32.7 g/dl (31.0-35.0); Mean Corpuscular Hemoglobin 25.6 pg (27.0-33.0); Mean Corpuscular Volume 78.3 fL (80.0-98.0); Mean Platelet Volume 10.5 fL (9.4-12.3); Platelet Count 226 X10*3/uL (160-400); Red Blood Count 4.37 X10*6/uL (4.20-5.50); Red Cell Distribution Width 15.9 % (11.0-16.0); White Blood Count 7.4 X10*3/uL (4.8-10.8)
[2025-02-09] MEDS: Calcium + Vitamin D 250 MG TABLET PO ×2 (09:04→20:42)
[2025-02-09] MEDS: lisinopriL 10 MG TABLET PO (09:04)
[2025-02-09] MEDS: Cyanocobalamin (Vitamin B-12) 100 MCG TABLET PO (09:04)
--- NOTE | 2025-02-09 09:22 | PC.NURSE ---
Pt alert and oriented, breathing even and unlabored. Pt denying pain or complaints this morning. Ate her breakfast with minimal assistance. Took her morning meds whole with no issues. This RN assisted pt onto bed sweeney and pt urinated, cleaned and is now dry. Sinus wan on monitor. Pt requests to rest.
[2025-02-09 09:27] LABS: Anion Gap 11 (12-20); Blood Urea Nitrogen 19 mg/dL (9-16); Calcium 8.8 mg/dL (8.4-10.2); Carbon Dioxide 25 mmol/L (22-29); Chloride 104 mmol/L (96-108); Creatinine Clr Calc Pharmacy 51.9; Estimated Glomerular Filt Rate > 60; Glucose Random 284 mg/dL (60-115); Potassium 4.4 mmol/L (3.3-5.1); Sodium 136 mmol/L (135-145)
[2025-02-09 09:43] LABS: Thyroid Stimulating Hormone 2.08 uIU/mL (0.32-4.0)
--- NOTE | 2025-02-09 09:47 | P.CONCA_ITS ---
History of Present Illness History of Present Illness Date of Service: 02/09/25 Requesting physician: Michel Oreilly Consult reason: other (Syncope) Chief complaint: Syncope, bradycardia Narrative: I was consulted to see Lisa in cardiology consultation today for syncope. Patient was 89-year-old female who was admitted in October with a fall unclear whether there is a syncopal episode at that time and then she had a hip fracture subsequently underwent open reduction internal fixation of a prosthetic hip. She subsequently was sent to rehab facility where she has been. Rehab facility she has had multiple episodes of syncope witnessed. Most of his episodes after physical therapy and exertion when she was upright. She was sent yesterday to the emergency room after she had 1 of those episodes. She was finishing up physical therapy and walking towards her bed and subsequently she found herself being put into bed by people who were helping her. She had apparently had a syncopal episode. She does not have any aura of syncopal episode with no symptoms of lightheadedness, palpitations, chest pain, shortness of breath. She was sent to the emergency room and here she was noted to have sinus bradycardia with heart rate in the 40s with underlying baseline left bundle-branch block. There been no pauses or significant AV conduction abnormality since she has been monitored on telemetry here. She said over the last several weeks she has had multiple episodes of syncope and all of these episodes seem to happen after she has been upright and doing a physical therapy. 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 Initial orthostatics done here after a brief upright position showed some drop in his blood pressure. There was no change in her heart rate. Cardiology consult was sought for syncopal episodes. Review of Systems 2 Constitutional: Constitutional: Reports no additional constitutional complaints Eyes: Eyes: Reports no additional eye complaints ENT: Denies dizziness Cardiovascular: Cardiovascular: Denies chest pain, Denies leg edema, Denies lightheadedness, Reports Loss of Consciousness, Denies palpitations and Denies dyspnea Respiratory: Respiratory: Reports no additional respiratory complaints and Denies dyspnea Gastrointestinal: Gastrointestinal: Reports no additional gastrointestinal complaints Genitourinary: Genitourinary: Reports no additional female genitourinary complaints Musculoskeletal: Musculoskeletal: Reports no additional musculoskeletal complaints Neurologic: Denies confusion and Denies dizziness Psychiatric: Psychiatric: Denies confusion Endocrine: Endocrine: Denies palpitations PMFSH Past Medical History Medical History Patellofemoral arthritis of right knee Diabetes mellitus Left bundle branch block CAD (coronary artery disease) Surgical History Surgical History Hx of mastectomy Hx of mastectomy Social History Social History Household Members: None Household Members Other:: Home alone, went to [facility] a few weeks ago Housing: Long-Term Do you presently have visiting nurse or other home services: Yes (Visiting PT) Patient Tobacco Use Status: Never used Tobacco Use of substances other than those prescribed or required for medical reasons: No Have you been hit, kicked, punched, or otherwise hurt by someone within the past year? If so, by whom?: No Do you feel safe in your current relationship?: No Current Relationship Is there a partner from a previous relationship who is making you feel unsafe now?: No Are you made to feel afraid or neglected: No Holiness Healthcare Practices: [employer]ism Advance Directives: Yes Advance Directives on File: Yes Advance Directives Date on File: 11/01/24 Do you have a plan to hurt others: No Plan Recently lost weight without trying: Yes How much weight loss: 2-13 pounds Eating poorly because of decreased appetite: Yes Nutrition screen score: 4 Nutrition Risks: No Nutritional Risk Patient : No : No Poor oral hygiene: No service: No Current occupational status: 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 Allergies Allergy/AdvReac Type Severity Reaction Status Date / Time adhesive tape [Adhesive Tape] Allergy Unknown SKIN Verified 02/08/25 11:54 REDNESS Active Medications: Current Medications Acetaminophen (Acetaminophen 325 Mg Tablet) 650 mg PO Q6H PRN PRN Reason: Pain, Mild 1-3,fever,headache Albuterol Sulfate (Albuterol Sulfate 90 Mcg 8 Gm Inhaler) 2 puff INHALE Q4H PRN PRN Reason: SOB/wheeze/cough Bisacodyl (Bisacodyl 10 Mg Supp.Rect) 10 mg [place] DAILY PRN PRN Reason: Constipation Calcium Carbonate (Calcium Carbonate 750 Mg Tab.Chew) 750 mg PO Q4H PRN PRN Reason: Heartburn Calcium Carbonate/Cholecalciferol (Calcium + Vitamin D 250 Mg Tablet) 250 mg PO BID [facility] [place] Last Admin: 02/09/25 09:04 Dose: 250 mg Cyanocobalamin (Cyanocobalamin (Vitamin B-12) 100 Mcg Tablet) 100 mcg PO DAILY [facility] [place] Last Admin: 02/09/25 09:04 Dose: 100 mcg Dextrose (Dextrose 50 % 25 Gm/50 Ml Syringe) 25 gm IVPUSH Q15M PRN; Protocol PRN Reason: per Hypoglycemia Standing Ord. Enoxaparin Sodium (Enoxaparin Sodium 40 Mg/0.4 Ml Syringe) 40 mg SUBCUT Q24H [facility] [place] Last Admin: 02/08/25 21:29 Dose: 40 mg Glucose (Glucose Gel 15 Gm Gel..Gram.) 15 gm PO Q15M PRN; Protocol PRN Reason: per Hypoglycemia Standing Ord. Guaifenesin (Guaifenesin 200 Mg/10 Ml 10 Ml Liquid) 10 ml PO Q4H PRN PRN Reason: Cough Insulin Glargine (Insulin Glargine,Hum.Rec.Anlog 100 Unit/Ml 10 Ml Vial) 10 unit SUBCUT BEDTIME [facility] Last Admin: 02/08/25 21:37 Dose: 10 unit Insulin Human Lispro (Insulin Lispro 100 Unit/Ml 3 Ml Vial) 0 unit SUBCUT QIDACHS [facility] [place]; Protocol Last Admin: 02/09/25 07:29 Dose: 8 unit Levothyroxine Sodium (Levothyroxine Sodium 112 Mcg Tablet) 112 mcg PO DAILY@0600 [facility] Last Admin: 02/09/25 06:39 Dose: 112 mcg Lisinopril (Lisinopril 10 Mg Tablet) 10 mg PO DAILY [facility] [place]; Protocol Last Admin: 02/09/25 09:04 Dose: 10 mg Loperamide HCl (Loperamide Hcl 2 Mg Capsule) 2 mg PO Q8H PRN PRN Reason: Loose Stool Magnesium Hydroxide (Milk Of Magnesia 30 Ml Oral.Susp) 30 ml PO DAILY PRN PRN Reason: Constipation Magnesium Hydroxide (Milk Of Magnesia 30 Ml Oral.Susp) 30 ml PO DAILY PRN PRN Reason: Constipation Melatonin (Melatonin 3 Mg Tablet) 6 mg PO BEDTIME PRN PRN Reason: Insomnia Ondansetron HCl (Ondansetron Hcl 4 Mg/2 Ml Vial) 4 mg IVPUSH Q8H PRN PRN Reason: Nausea and Vomiting Pravastatin Sodium (Pravastatin Sodium 80 Mg Tablet) 80 mg PO BEDTIME [facility] [place] Last Admin: 02/08/25 21:38 Dose: 80 mg Sodium Chloride (0.9 % Sodium Chloride Flush 3 Ml Syringe) 3 ml IVFLUSH QSHIFT [facility] [place] Last Admin: 02/09/25 07:29 Dose: 3 ml Tamsulosin HCl (Tamsulosin Hcl 0.4 Mg Capsule) 0.8 mg PO BEDTIME [facility] [place] Last Admin: 02/08/25 21:28 Dose: 0.8 mg Tramadol HCl (Tramadol Hcl 50 Mg Tablet) 50 mg PO Q8H PRN PRN Reason: moderate to severe pain Home Medications ?Medication ?Instructions ?Recorded ?Confirmed ?Last Taken ?Type metoprolol succinate 25 mg 25 mg PO DAILY 02/12/23 02/08/25 10/31/24 History tablet,extended release 24 hr acetaminophen 325 mg tablet 650 mg PO Q4-6H PRN Pain/Fever 10/31/24 02/08/25 Unknown History (Tylenol) levothyroxine 112 mcg tablet 112 mcg PO DAILY@0600 10/31/24 02/08/25 10/31/24 History calcium 600 mg (as 1 cap PO BID 02/02/25 02/08/25 Unknown History carbonate)-vitamin D3 10 mcg (400 unit) capsule albuterol sulfate 90 mcg/actuation 2 inh inhalation Q4H PRN 02/08/25 02/08/25 Unknown History breath activated powder inhaler SOB/wheeze/cough bisacodyl 10 mg rectal suppository 10 mg [place] DAILY PRN Constipation 02/08/25 02/08/25 Unknown History (Dulcolax (bisacodyl)) cyanocobalamin (vitamin B-12) 100 100 mcg PO DAILY 02/08/25 02/08/25 Unknown History mcg tablet guaifenesin 100 mg/5 mL oral liquid 200 mg PO Q4H PRN Cough 02/08/25 02/08/25 Unknown History insulin lispro 100 unit/mL See Protocol subcut TIDWM 02/08/25 02/08/25 Unknown History subcutaneous solution insulin lispro protamine-lispro 20 unit subcut DAILY@0900 02/08/25 02/08/25 Unknown History 100 unit/mL (75-25) subcutaneous pen (Humalog Mix 75-25 KwikPen) insulin lispro protamine-lispro 25 unit subcut DAILY@199902/08/25 02/08/25 Unknown History 100 unit/mL (75-25) subcutaneous pen (Humalog Mix 75-25 KwikPen) lisinopril 10 mg tablet 10 mg PO DAILY 02/08/25 02/08/25 Unknown History loperamide 2 mg capsule 2 mg PO Q8H PRN Loose Stool 02/08/25 02/08/25 Unknown History magnesium hydroxide 400 mg/5 mL 30 ml PO DAILY PRN Constipation 02/08/25 02/08/25 Unknown History oral suspension (Milk of Magnesia) nystatin 100,000 unit/gram topical 1 appl topical Q4H PRN fungal rash 02/08/25 02/08/25 Unknown History cream ondansetron HCl 4 mg tablet 4 mg PO Q8H PRN nausea/vomiting 02/08/25 02/08/25 Unknown History pravastatin 40 mg tablet 80 mg PO BEDTIME 02/08/25 02/08/25 Unknown History tamsulosin 0.4 mg capsule 0.8 mg PO BEDTIME 02/08/25 02/08/25 Unknown History tramadol 50 mg tablet 50 mg PO Q8H PRN moderate to 02/08/25 02/08/25 Unknown History severe pain zinc sulfate 220 mg capsule 220 mg PO DAILY 02/08/25 02/08/25 Unknown History Physical Exam 2 Vital Signs: Vital Signs: Last Vital Signs Temp 97.5 F 02/09/25 08:35 Pulse 48 L 02/09/25 08:35 Resp 16 02/09/25 08:35 BP 144/53 H 02/09/25 09:04 Pulse Ox 97 02/09/25 08:35 O2 Del Method Room Air 02/09/25 08:35 BMI result Body Mass Index 28.2 Const: General: cooperative, comfortable, alert and awake; No confusion N utritional Appearance: overweight Orientation/consciousness: patient oriented x3 and No confusion Limitations: no limitations HEENT: Head: Yes normocephalic and Yes atraumatic Neck: Neck: Yes trachea midline, Yes supple and Yes no JVD Resp: Effort & Inspection: normal respiratory effort Auscultation: clear to auscultation bilaterally Cardio: Jugular venous distension: no JVD Rate: regular rate Rhythm: r egular rhythm Heart sounds: S1 normal heart sound present, S2 normal heart sound present, no click, no gallops, no murmurs and no rubs GI: Auscultation: normal bowel sounds Skin: General skin exam: no rashes or lesions noted Neuro: General: patient oriented x3, no focal motor deficits and No confusion Extrem: General: Yes no clubbing, cyanosis or edema Psych: Appearance: grossly normal Objective Labs and Meds 02/09/25 09:00 02/09/25 09:00 Lab results: Laboratory Results - last 24 hr 02/08/25 02/08/25 02/08/25 12:19 15:01 15:42 WBC 9.3 RBC 4.43 Hgb 11.2 L Hct 35.2 L MCV 79.5 L MCH 25.3 L MCHC 31.8 RDW 15.8 Plt Count 233 MPV 10.9 Immature Gran % (Auto) 0.9 H Neut % (Auto) 72.8 Lymph % (Auto) 18.0 L [place] % (Auto) 6.2 Eos % (Auto) 1.3 Baso % (Auto) 0.8 Lymph # (Auto) 1.7 [place] # (Auto) 0.6 Eos # (Auto) 0.1 Baso # (Auto) 0.1 Abs Immat Gran (auto) 0.08 H Absolute Neuts (auto) 6.8 Absolute Nucleated RBC 0.000 Nucleated RBC % (auto) 0.0 Hold Blue Top SEE NOTE Sodium 134 L Potassium 4.5 Chloride 103 Carbon Dioxide 25 Anion Gap 11 L BUN 19 H Creatinine 0.82 Estim Creat Clear Calc 49.4 Estimated GFR > 60 POC Glucose Random Glucose 234 H Calcium 9.0 Total Bilirubin 0.4 AST 33 H ALT 14 Alkaline Phosphatase 93 Troponin I High Sens 4.8 3.5 Total Protein 6.6 Albumin 3.4 L TSH Urine Color Yellow Urine Appearance Cloudy Urine pH 5.5 Ur Specific [place] 1.015 Urine Protein 30 (1+) H Urine Glucose (UA) 500 H Urine Ketones Negative Urine Blood Small (1+) H Urine Nitrite Negative Ur Leukocyte Esterase Large (3+) H Urine RBC 3-5 H Urine WBC >50 H Ur Squamous Epith Cells 0-2 Urine Bacteria None Seen Hyaline Casts 0-2 Urine Yeast Present Influenza Type A (PCR) NEGATIVE Influenza Type B (PCR) NEGATIVE RSV RNA Qual (PCR) NEGATIVE SARS-CoV-2 RNA (RT-PCR) NEGATIVE 02/08/25 02/08/25 02/09/25 21:14 21:19 00:39 WBC RBC Hgb Hct MCV MCH MCHC RDW Plt Count MPV Immature Gran % (Auto) Neut % (Auto) Lymph % (Auto) [place] % (Auto) Eos % (Auto) Baso % (Auto) Lymph # (Auto) [place] # (Auto) Eos # (Auto) Baso # (Auto) Abs Immat Gran (auto) Absolute Neuts (auto) Absolute Nucleated RBC Nucleated RBC % (auto) Hold Blue Top Sodium Potassium Chloride Carbon Dioxide Anion Gap BUN Creatinine Estim Creat Clear Calc Estimated GFR POC Glucose 489 H* 509 H* 284 H Random Glucose Calcium Total Bilirubin AST ALT Alkaline Phosphatase Troponin I High Sens Total Protein Albumin TSH Urine Color Urine Appearance Urine pH Ur Specific [place] Urine Protein Urine Glucose (UA) Urine Ketones Urine Blood Urine Nitrite Ur Leukocyte Esterase Urine RBC Urine WBC Ur Squamous Epith Cells Urine Bacteria Hyaline Casts Urine Yeast Influenza Type A (PCR) Influenza Type B (PCR) RSV RNA Qual (PCR) SARS-CoV-2 RNA (RT-PCR) 02/09/25 02/09/25 07:23 09:00 WBC 7.4 RBC 4.37 Hgb 11.2 L Hct 34.2 L MCV 78.3 L MCH 25.6 L MCHC 32.7 RDW 15.9 Plt Count 226 MPV 10.5 Immature Gran % (Auto) Neut % (Auto) Lymph % (Auto) [place] % (Auto) Eos % (Auto) Baso % (Auto) Lymph # (Auto) [place] # (Auto) Eos # (Auto) Baso # (Auto) Abs Immat Gran (auto) Absolute Neuts (auto) Absolute Nucleated RBC 0.000 Nucleated RBC % (auto) 0.0 Hold Blue Top Sodium 136 Potassium 4.4 Chloride 104 Carbon Dioxide 25 Anion Gap 11 L BUN 19 H Creatinine 0.78 Estim Creat Clear Calc 51.9 Estimated GFR > 60 POC Glucose 320 H Random Glucose 284 H Calcium 8.8 Total Bilirubin AST ALT Alkaline Phosphatase Troponin I High Sens Total Protein Albumin TSH 2.08 Urine Color Urine Appearance Urine pH Ur Specific [place] Urine Protein Urine Glucose (UA) Urine Ketones Urine Blood Urine Nitrite Ur Leukocyte Esterase Urine RBC Urine WBC Ur Squamous Epith Cells Urine Bacteria Hyaline Casts Urine Yeast Influenza Type A (PCR) Influenza Type B (PCR) RSV RNA Qual (PCR) SARS-CoV-2 RNA (RT-PCR) Assessment and Plan (1) Syncope: Status: Acute syncopal episodes in this elderly woman in the intermediate mostly when she was upright after physical therapy. This is most suggestive of delayed orthostatic hypotension patient with diabetes. She does have baseline sinus bradycardia and left bundle-branch block and significant sinus pauses or av conduction abnormality can not be entirely ruled out although cardiac telemetry has shown no such evidence. She is on metoprolol at this point time for control of her blood pressure which should be discontinued and avoid although the rate lowering medications including eyedrops that may have similar properties. At this point time I do not think she needs pacing therapy but she will need admission for overnight observation on cardiac telemetry. I would check a delayed orthostatic vital signs to see if she was tendency for delayed orthostatic hypotension that could explain her symptoms of syncope. This would definitely not be helped by pacing therapy. If there is no obvious significant orthostatic hypotension or significant bradycardia that indicates pacemaker I would consider implanting a implantable loop recorder tomorrow to assess for any significant Adilson arrhythmias in the future that may benefit from a pacing therapy. Findings were discussed with the hospitalist team. Will follow up with her. Thank you for allowing me to partake in his care Procedures Date of Service Date of Service: 02/09/25
--- NOTE | 2025-02-09 11:38 | P.PNIM_ITS ---
Subjective Subjective Date of Service: 02/09/25 Interval History: no lightheadedness HR 50s Review of Systems Review of Systems: Yes all other systems are reviewed and are negative Physical Exam 2 Vital Signs: Vital Signs: Last Vital Signs Temp 98.8 F 02/09/25 11:13 Pulse 53 02/09/25 11:13 Resp 16 02/09/25 11:13 BP 146/48 H 02/09/25 11:13 Pulse Ox 98 02/09/25 11:13 O2 Del Method Room Air 02/09/25 11:13 BMI result Body Mass Index 28.2 Gen: in no acute distress HEENT: sclera anicteric, moist mucus membranes Neck: supple Lungs: clear to auscultation bilaterally Heart: regular, slow, no murmurs Abd: soft, non-tender, non-distended Ext: no edema Skin: warm/well-perfused Neuro: alert and oriented x3, no focal findings Psych: appropriate affect Objective Data Active Medications Acetaminophen (Acetaminophen 325 Mg Tablet) 650 mg PO Q6H PRN PRN Reason: Pain, Mild 1-3,fever,headache Albuterol Sulfate (Albuterol Sulfate 90 Mcg 8 Gm Inhaler) 2 puff INHALE Q4H PRN PRN Reason: SOB/wheeze/cough Bisacodyl (Bisacodyl 10 Mg Supp.Rect) 10 mg OK DAILY PRN PRN Reason: Constipation Calcium Carbonate (Calcium Carbonate 750 Mg Tab.Chew) 750 mg PO Q4H PRN PRN Reason: Heartburn Calcium Carbonate/Cholecalciferol (Calcium + Vitamin D 250 Mg Tablet) 250 mg PO BID [facility] Last Admin: 02/09/25 09:04 Dose: 250 mg Documented By: RICHARD Cyanocobalamin (Cyanocobalamin (Vitamin B-12) 100 Mcg Tablet) 100 mcg PO DAILY [facility] Last Admin: 02/09/25 09:04 Dose: 100 mcg Documented By: RICHARD Dextrose (Dextrose 50 % 25 Gm/50 Ml Syringe) 25 gm IVPUSH Q15M PRN; Protocol PRN Reason: per Hypoglycemia Standing Ord. Enoxaparin Sodium (Enoxaparin Sodium 40 Mg/0.4 Ml Syringe) 40 mg SUBCUT Q24H [facility] Last Admin: 02/08/25 21:29 Dose: 40 mg Documented By: RADHA Glucose (Glucose Gel 15 Gm Gel..Gram.) 15 gm PO Q15M PRN; Protocol PRN Reason: per Hypoglycemia Standing Ord. Guaifenesin (Guaifenesin 200 Mg/10 Ml 10 Ml Liquid) 10 ml PO Q4H PRN PRN Reason: Cough Insulin Glargine (Insulin Glargine,Hum.Rec.Anlog 100 Unit/Ml 10 Ml Vial) 10 unit SUBCUT BEDTIME [facility] Last Admin: 02/08/25 21:37 Dose: 10 unit Documented By: RADHA Insulin Human Lispro (Insulin Lispro 100 Unit/Ml 3 Ml Vial) 0 unit SUBCUT QIDACHS [facility]; Protocol Last Admin: 02/09/25 07:29 Dose: 8 unit Documented By: RICHARD Levothyroxine Sodium (Levothyroxine Sodium 112 Mcg Tablet) 112 mcg PO DAILY@0600 [facility] Last Admin: 02/09/25 06:39 Dose: 112 mcg Documented By: RADHA Lisinopril (Lisinopril 10 Mg Tablet) 10 mg PO DAILY [facility]; Protocol Last Admin: 02/09/25 09:04 Dose: 10 mg Documented By: RICHARD Loperamide HCl (Loperamide Hcl 2 Mg Capsule) 2 mg PO Q8H PRN PRN Reason: Loose Stool Magnesium Hydroxide (Milk Of Magnesia 30 Ml Oral.Susp) 30 ml PO DAILY PRN PRN Reason: Constipation Magnesium Hydroxide (Milk Of Magnesia 30 Ml Oral.Susp) 30 ml PO DAILY PRN PRN Reason: Constipation Melatonin (Melatonin 3 Mg Tablet) 6 mg PO BEDTIME PRN PRN Reason: Insomnia Ondansetron HCl (Ondansetron Hcl 4 Mg/2 Ml Vial) 4 mg IVPUSH Q8H PRN PRN Reason: Nausea and Vomiting Pravastatin Sodium (Pravastatin Sodium 80 Mg Tablet) 80 mg PO BEDTIME [facility] Last Admin: 02/08/25 21:38 Dose: 80 mg Documented By: RADHA Sodium Chloride (0.9 % Sodium Chloride Flush 3 Ml Syringe) [facility] Last Admin: 02/09/25 07:29 Dose: 3 ml Documented By: RICHARD Tamsulosin HCl (Tamsulosin Hcl 0.4 Mg Capsule) 0.8 mg PO BEDTIME [facility] Last Admin: 02/08/25 21:28 Dose: 0.8 mg Documented By: RADHA Tramadol HCl (Tramadol Hcl 50 Mg Tablet) 50 mg PO Q8H PRN PRN Reason: moderate to severe pain Labs 02/09/25 09:00 02/09/25 09:00 Labs: Laboratory Results - last 24 hr 02/08/25 02/08/25 02/08/25 12:19 15:01 21:14 MCV 79.5 L MCH 25.3 L MCHC 31.8 RDW 15.8 Plt Count 233 MPV 10.9 Immature Gran % (Auto) 0.9 H Neut % (Auto) 72.8 Lymph % (Auto) 18.0 L [place] % (Auto) 6.2 Eos % (Auto) 1.3 Baso % (Auto) 0.8 Lymph # (Auto) 1.7 [place] # (Auto) 0.6 Eos # (Auto) 0.1 Baso # (Auto) 0.1 Abs Immat Gran (auto) 0.08 H Absolute Neuts (auto) 6.8 Absolute Nucleated RBC 0.000 Nucleated RBC % (auto) 0.0 Hold Blue Top SEE NOTE Anion Gap 11 L Estim Creat Clear Calc 49.4 Estimated GFR > 60 POC Glucose 489 H* Random Glucose 234 H Calcium 9.0 Total Bilirubin 0.4 AST 33 H ALT 14 Alkaline Phosphatase 93 Total Protein 6.6 Albumin 3.4 L TSH Urine Color Yellow Urine Appearance Cloudy Urine pH 5.5 Ur Specific [place] 1.015 Urine Protein 30 (1+) H Urine Glucose (UA) 500 H Urine Ketones Negative Urine Blood Small (1+) H Urine Nitrite Negative Ur Leukocyte Esterase Large (3+) H Urine RBC 3-5 H Urine WBC >50 H Ur Squamous Epith Cells 0-2 Urine Bacteria None Seen Hyaline Casts 0-2 Urine Yeast Present Influenza Type A (PCR) NEGATIVE Influenza Type B (PCR) NEGATIVE RSV RNA Qual (PCR) NEGATIVE SARS-CoV-2 RNA (RT-PCR) NEGATIVE 02/08/25 02/09/25 02/09/25 21:19 00:39 07:23 MCV MCH MCHC RDW Plt Count MPV Immature Gran % (Auto) Neut % (Auto) Lymph % (Auto) [place] % (Auto) Eos % (Auto) Baso % (Auto) Lymph # (Auto) [place] # (Auto) Eos # (Auto) Baso # (Auto) Abs Immat Gran (auto) Absolute Neuts (auto) Absolute Nucleated RBC Nucleated RBC % (auto) Hold Blue Top Anion Gap Estim Creat Clear Calc Estimated GFR POC Glucose 509 H* 284 H 320 H Random Glucose Calcium Total Bilirubin AST ALT Alkaline Phosphatase Total Protein Albumin TSH Urine Color Urine Appearance Urine pH Ur Specific [place] Urine Protein Urine Glucose (UA) Urine Ketones Urine Blood Urine Nitrite Ur Leukocyte Esterase Urine RBC Urine WBC Ur Squamous Epith Cells Urine Bacteria Hyaline Casts Urine Yeast Influenza Type A (PCR) Influenza Type B (PCR) RSV RNA Qual (PCR) SARS-CoV-2 RNA (RT-PCR) 02/09/25 09:00 MCV 78.3 L MCH 25.6 L MCHC 32.7 RDW 15.9 Plt Count 226 MPV 10.5 Immature Gran % (Auto) Neut % (Auto) Lymph % (Auto) [place] % (Auto) Eos % (Auto) Baso % (Auto) Lymph # (Auto) [place] # (Auto) Eos # (Auto) Baso # (Auto) Abs Immat Gran (auto) Absolute Neuts (auto) Absolute Nucleated RBC 0.000 Nucleated RBC % (auto) 0.0 Hold Blue Top Anion Gap 11 L Estim Creat Clear Calc 51.9 Estimated GFR > 60 POC Glucose Random Glucose 284 H Calcium 8.8 Total Bilirubin AST ALT Alkaline Phosphatase Total Protein Albumin TSH 2.08 Urine Color Urine Appearance Urine pH Ur Specific [place] Urine Protein Urine Glucose (UA) Urine Ketones Urine Blood Urine Nitrite Ur Leukocyte Esterase Urine RBC Urine WBC Ur Squamous Epith Cells Urine Bacteria Hyaline Casts Urine Yeast Influenza Type A (PCR) Influenza Type B (PCR) RSV RNA Qual (PCR) SARS-CoV-2 RNA (RT-PCR) Assessment and Plan (1) Syncope: Status: Acute Plan d2 89yo F with arthritis, LBBB, DM2, hx R mastectomy, and CAD with branch vessel ischemia sent in from STR at [facility] with 3rd syncopal episode. Noted to be bradycardic. syncope - hold metoprolol succinate due to bradycardia; recheck orthostatics- suspect delayed orthostatic hypotension - to consider ILR - TTE pending HTN - continue lisinopril; hold metoprolol succinate CAD - continue pravastatin DM2 - basal-bolus insulin hypothyroidism - continue LT4 VTE prophylaxis - enoxaparin dispo - return to [facility] STR eventually In my clinical judgment, the patient requires continued inpatient hospitalization for the following reasons: cardiac monitoring Total time managing care of this patient today: 40 minutes. Quality Stroke Does the patient have a stroke diagnosis?: No VTE Prior VTE?: No VTE Risk Level:: Medical - moderate - high VTE Device Contraindication: N/A - Device Ordered VTE Drug Contraindication: N/A - Med Ordered
--- NOTE | 2025-02-09 11:40 | MHC.CM.PN ---
IMM 02/09/25, Pt came to hosp. from [facility] where she was for STR. PCP confirmed: Janes Foster, HCP on file and confirmed: Felipe (son). Pt said she lives alone, uses a walker. She said she is not done with her rehab, so DCP will be to return to [facility] for STR via BLS. CM to follow for DC needs.
[2025-02-09 12:51] LABS: Glucose, Whole Blood 240 mg/dL (60-115)
[2025-02-09 17:07] LABS: Glucose, Whole Blood 228 mg/dL (60-115)
[2025-02-09] MEDS: Pravastatin Sodium 80 MG TABLET PO (20:42)
[2025-02-09] MEDS: Tamsulosin HCL 0.4 MG CAPSULE 0.8 MG PO (20:42)
[2025-02-09] MEDS: Enoxaparin Sodium 40 MG/0.4 ML SYRINGE SUBCUT (20:42)
[2025-02-09 21:58] LABS: Glucose, Whole Blood 221 mg/dL (60-115)
[2025-02-09] MEDS: Insulin Glargine,Hum.rec.anlog 100 UNIT/ML 10 ML VIAL 15 UNIT SUBCUT (22:19)
[2025-02-10 03:10] VITALS: BP 144/65; PULSE 74; RESP 18; TEMP 36.4; O2SAT 98
[2025-02-10] MEDS: Levothyroxine Sodium 112 MCG TABLET PO (05:28)
[2025-02-10 07:06] VITALS: BP 147/64; PULSE 53; RESP 20; TEMP 36.8; O2SAT 95
[2025-02-10 07:55] VITALS: BP 152/63; PULSE 55
[2025-02-10 08:16] LABS: Glucose, Whole Blood 173 mg/dL (60-115)
[2025-02-10] MEDS: Insulin Lispro 100 UNIT/ML 3 ML VIAL SUBCUT ×3 (08:43→16:38)
[2025-02-10] MEDS: 0.9 % Sodium Chloride Flush 3 ML SYRINGE IVFLUSH ×2 (08:43→10:56)
[2025-02-10] MEDS: Calcium + Vitamin D 250 MG TABLET PO (08:55)
[2025-02-10] MEDS: lisinopriL 10 MG TABLET PO (08:55)
[2025-02-10] MEDS: Cyanocobalamin (Vitamin B-12) 100 MCG TABLET PO (08:56)
[2025-02-10 09:01] VITALS: BP 121/60; BP 92/51; PULSE 66; PULSE 77
[2025-02-10 10:59] LABS: Glucose, Whole Blood 245 mg/dL (60-115)
[2025-02-10 11:04] VITALS: BP 157/68; PULSE 55; RESP 18; TEMP 36.9; O2SAT 98
--- NOTE | 2025-02-10 11:37 | P.PNCA_ITS ---
Subjective Subjective Date of Service: 02/10/25 Principal diagnosis: Syncope. Interval history: Patient overnight has not had any significant bradycardia. No significant sinus pauses or av conduction abnormality. Noted this morning to have significant orthostatic hypotension. She had no obvious symptoms at that point time. Baseline at rest her blood pressure is elevated. Review of Systems Review of Systems Yes all other systems are reviewed and are negative Denies confusion Psychiatric: Denies confusion Physical Exam Vital Signs: Last Vital Signs Temp 98.5 F 02/10/25 11:04 Pulse 55 02/10/25 11:04 Resp 18 02/10/25 11:04 BP 157/68 H 02/10/25 11:04 Pulse Ox 98 02/10/25 11:04 O2 Del Method Room Air 02/10/25 11:04 BMI result Body Mass Index 28.2 Const General: cooperative, comfortable, alert and awake; No confusion Nutritional Appearance: overweight Orientation/consciousness: patient oriented x3 and No confusion Limitations: no limitations HEENT Head: Yes normocephalic and Yes atraumatic Neck Neck: Yes trachea midline, Yes supple and Yes no JVD Resp Effort & Inspection: normal respiratory effort Auscultation: clear to auscultation bilaterally Cardio Jugular venous distension: no JVD Rate: regular rate Rhythm: regular rhythm Heart sounds: S1 normal heart sound present, S2 normal heart sound present, no click, no gallops, no murmurs and no rubs GI Auscultation: normal bowel sounds Skin General skin exam: no rashes or lesions noted Neuro General: patient oriented x3, no focal motor deficits and No confusion Extrem General: Yes no clubbing, cyanosis or edema Psych Appearance: grossly normal Objective Labs and Meds 02/09/25 09:00 02/09/25 09:00 Lab results: Laboratory Results - last 24 hr 02/09/25 02/09/25 02/09/25 11:26 17:00 21:20 POC Glucose 240 H 228 H 221 H 02/10/25 02/10/25 06:59 10:47 POC Glucose 173 H 245 H Progress Note: A&P Assessment and plan (1) Syncope: Status: Acute Assessment and Plan: Syncope in this elderly woman appears to be most likely related to orthostatic hypotension at this point time with significant orthostasis. Her bradycardia has improved. I do not think this will benefit from pacing therapy at this point time. However orthostatic hypotension is going to be very difficult treat given her baseline hypertension. I think we should allow some permissive hypertension at rest to systolic blood pressure up to 150. I agree with holding lisinopril and metoprolol therapy at this point time. May use short-acting antihypertensives at nighttime for supine hypertension management. Advised to maintain adequate oral fluid intake. Orthostatic precautions were discussed, although she has very minimal warning symptoms prior to passing out. Tamsulosin also can potentially exacerbate orthostatic hypertension should be reconsidered. Overall difficult problem to resolve. (2) Sinus bradycardia: Status: Acute Assessment and Plan: Sinus bradycardia, possibly suggestive of sinoatrial artemio dysfunction but no significant pauses and/or evidence of any significant AV block with left bundle- branch block to account for her syncopal episodes. Metoprolol therapy should be discontinued and avoid rate lowering medications in the future. Will set up for outpatient follow-up after event monitor. Will sign of the case. Thank you for allowing me to partake in her care Time Spent With Patient Time: Total time managing care of this patient today ____ minutes. Progress Note: Quality Stroke Does the patient have a stroke diagnosis?: No Procedures Date of Service Date of Service: 02/10/25
--- NOTE | 2025-02-10 11:52 | P.DS_ITS ---
DS: Providers Provider Date of Service: 02/10/25 Date of admission: 02/08/25 18:45 Date of discharge: 02/10/25 Primary care physician: Janes Foster MD Consults: 02/08/25 17:11 Consult to Cardiology Routine Consulting Provider: [facility] Reason for consultation: syncope, bradycardia 02/09/25 14:55 Consult to Wound Care Routine Reason for consultation: skin tear right elbow, stage 2 coccyx DS: Diagnosis Discharge Diagnosis (1) Syncope: Status: Acute (2) Sinus bradycardia: Status: Acute (3) Orthostatic hypotension: Status: Acute DS: Summary Hospital Course Hospital Course: From my admission H+P, 02/08/25: 89yo F with arthritis, LBBB, DM2, hx R mastectomy, and CAD with branch vessel ischemia sent in from [facility], where she is undergoing rehabilitation after sustaining a L femur fracture 3 months ago and undergoing ORIF 11/02/24. She had an unwitnessed syncopal episode after doing PT which is actually her 3rd one this month. She does not remember losing consciousness or having any prodromal lightheadedness and currently feels fine. She was seen in the ED 01/17/25 for near-syncope during PT that was attributed to hypotension; she had a UTI that was treated with appropriate antibiotics. She was seen again in the ED 02/04/25 for syncopal episode that occured while she was sitting. She was discharged with provisional diagnosis of TIA. Here in the ED, serial hs-Tn-I were 4.8 then 3.5. Orthostatics had her BP dropping from 140/55 to 121/55 but no change in heart rate and no symptoms of lightheadedness. She was noted to be in sinus bradycardia with rate as low as 43. 89yo F with arthritis, LBBB, DM2, hx R mastectomy, and CAD with branch vessel ischemia sent in from [facility] with 3rd syncopal episode. Noted to be bradycardic but no AV block noted on telemetry. TTE 02/09/25: 1. Normal LV ejection fraction 60 65% with elevated filling pressures 2. Normal cardiac valvular Dopplers 3. Normal RV systolic pressure 4. No gross pericardial effusion Cardiology consulted. Metoprolol succinate discontinued. Delayed orthostatic vital signs positive, with BP dropping from 152/63 to 93/51. Lisinopril and tamsulosin were also discontinued. Most likely syncope due to orthostatic hypotension from diabetes and advanced age. Per Cardiology she does not need a pacer. She will be set up with external event monitor and followed up by [facility] as an outpatient. She was prescribed hydralazine 10 mg qhs to be taken prn SBP >150/80. She returned to [facility] for ongoing rehabilit ation. Time Attestation Discharge Coordination Time (in mins): 45 Quality: Safe Use of Opioids Does Pt have an Active Cancer Diagnosis on the Problem List?: No Quality: Stroke Does the patient have a stroke diagnosis?: No Physical Exam Vital Signs: Vital Signs: Last Vital Signs Temp 98.5 F 02/10/25 11:04 Pulse 55 02/10/25 11:04 Resp 18 02/10/25 11:04 BP 157/68 H 02/10/25 11:04 Pulse Ox 98 02/10/25 11:04 O2 Del Method Room Air 02/10/25 11:04 BMI result Body Mass Index 28.2 Gen: in no acute distress HEENT: sclera anicteric, moist mucus membranes Neck: supple Lungs: clear to auscultation bilaterally Heart: regular, slow, no murmurs Abd: soft, non-tender, non-distended Ext: no edema Skin: warm/well-perfused Neuro: alert and oriented x3, no focal findings Psych: appropriate affect DS: Data Data Completed and Pending Completed studies during hospitalization [Text1]: Laboratory Results WBC 7.4 X10*3/uL (4.8-10.8) 02/09/25 09:00 RBC 4.37 X10*6/uL (4.20-5.50) 02/09/25 09:00 Hgb 11.2 g/dl (12.0-16.0) L 02/09/25 09:00 Hct 34.2 % (37.0-47.0) L 02/09/25 09:00 MCV 78.3 fL (80.0-98.0) L 02/09/25 09:00 MCH 25.6 pg (27.0-33.0) L 02/09/25 09:00 MCHC 32.7 g/dl (31.0-35.0) 02/09/25 09:00 RDW 15.9 % (11.0-16.0) 02/09/25 09:00 Plt Count 226 X10*3/uL (160-400) 02/09/25 09:00 MPV 10.5 fL (9.4-12.3) 02/09/25 09:00 Immature Gran % (Auto) 0.9 % (0.0-0.4) H 02/08/25 12:19 Neut % (Auto) 72.8 % (45-73) 02/08/25 12:19 Lymph % (Auto) 18.0 % (20-40) L 02/08/25 12:19 [place] % (Auto) 6.2 % (2-11) 02/08/25 12:19 Eos % (Auto) 1.3 % (0-4) 02/08/25 12:19 Baso % (Auto) 0.8 % (0-2) 02/08/25 12:19 Lymph # (Auto) 1.7 X10*3/uL (1.2-4.9) 02/08/25 12:19 [place] # (Auto) 0.6 X10*3/uL (0.1-1.2) 02/08/25 12:19 Eos # (Auto) 0.1 X10*3/uL (0.0-0.4) 02/08/25 12:19 Baso # (Auto) 0.1 X10*3/uL (0.0-0.2) 02/08/25 12:19 Abs Immat Gran (auto) 0.08 X10*3/uL (0.00-0.03) H 02/08/25 12:19 Absolute Neuts (auto) 6.8 x10*3/uL (2.0-8.3) 02/08/25 12:19 Absolute Nucleated RBC 0.000 X10*3/uL (0.0-0.012) 02/09/25 09:00 Nucleated RBC % (auto) 0.0 /100WBC (0.0-0.2) 02/09/25 09:00 Hold Blue Top SEE NOTE 02/08/25 12:19 Sodium 136 mmol/L (135-145) 02/09/25 09:00 Potassium 4.4 mmol/L (3.3-5.1) 02/09/25 09:00 Chloride 104 mmol/L (96-108) 02/09/25 09:00 Carbon Dioxide 25 mmol/L (22-29) 02/09/25 09:00 Anion Gap 11 (12-20) L 02/09/25 09:00 BUN 19 mg/dL (9-16) H 02/09/25 09:00 Creatinine 0.78 mg/dL (0.5-1.4) 02/09/25 09:00 Estim Creat Clear Calc 51.9 02/09/25 09:00 Estimated GFR > 60 02/09/25 09:00 POC Glucose 245 mg/dL (60-115) H 02/10/25 10:47 Random Glucose 284 mg/dL (60-115) H 02/09/25 09:00 Calcium 8.8 mg/dL (8.4-10.2) 02/09/25 09:00 Total Bilirubin 0.4 mg/dL (0.0-1.0) 02/08/25 12:19 AST 33 U/L (5-31) H 02/08/25 12:19 ALT 14 U/L (0-31) 02/08/25 12:19 Alkaline Phosphatase 93 U/L (39-117) 02/08/25 12:19 Troponin I High Sens 3.5 ng/L (<3.5-17.0) 02/08/25 15:42 Total Protein 6.6 g/dL (6.5-8.0) 02/08/25 12:19 Albumin 3.4 g/dL (3.5-5.0) L 02/08/25 12:19 TSH 2.08 uIU/mL (0.32-4.0) 02/09/25 09:00 Urine Color Yellow 02/08/25 15:01 Urine Appearance Cloudy 02/08/25 15:01 Urine pH 5.5 (5.0-9.0) 02/08/25 15:01 Ur Specific [place] 1.015 (1.005-1.025) 02/08/25 15:01 Urine Protein 30 (1+) mg/dL (Neg-Trace) H 02/08/25 15:01 Urine Glucose (UA) 500 mg/dL (Negative) H 02/08/25 15:01 Urine Ketones Negative mg/dL (Negative) 02/08/25 15:01 Urine Blood Small (1+) (Negative) H 02/08/25 15:01 Urine Nitrite Negative (Negative) 02/08/25 15:01 Ur Leukocyte Esterase Large (3+) (Negative) H 02/08/25 15:01 Urine RBC 3-5 /HPF (0-2) H 02/08/25 15:01 Urine WBC >50 /HPF (0-5) H 02/08/25 15:01 Ur Squamous Epith Cells 0-2 /HPF (0-2) 02/08/25 15:01 Urine Bacteria None Seen (None Seen) 02/08/25 15:01 Hyaline Casts 0-2 /LPF (0-2) 02/08/25 15:01 Urine Yeast Present 02/08/25 15:01 Influenza Type A (PCR) NEGATIVE (Negative) 02/08/25 12:19 Influenza Type B (PCR) NEGATIVE (Negative) 02/08/25 12:19 RSV RNA Qual (PCR) NEGATIVE (Negative) 02/08/25 12:19 SARS-CoV-2 RNA (RT-PCR) NEGATIVE (Negative) 02/08/25 12:19 Discharge Plan Discharge Anticipated Discharge Date/Time: 02/10/25 11:47 Patient Disposition: [facility] Discharge Diagnosis: syncope due to orthostasis Referrals: Janes Foster MD [Primary Care Provider] - 1 Week Danilo Avila MD [Physician] - 2 Weeks Discharge Medications: New hydralazine 10 mg tablet 10 mg PO BEDTIME PRN (Reason: BP > 150/80) Qty: 1 0RF Continued acetaminophen [Tylenol] 325 mg Tablet 650 mg PO Q4-6H PRN (Reason: Pain/Fever) levothyroxine 112 mcg tablet 112 mcg PO DAILY@0600 cyanocobalamin (vitamin B-12) 100 mcg Tablet 100 mcg PO DAILY loperamide 2 mg Capsule 2 mg PO Q8H PRN (Reason: Loose Stool) pravastatin 40 mg tablet 80 mg PO BEDTIME ondansetron HCl 4 mg tablet 4 mg PO Q8H PRN (Reason: nausea/vomiting) tramadol 50 mg Tablet 50 mg PO Q8H PRN (Reason: moderate to severe pain) guaifenesin 100 mg/5 mL Liquid 200 mg PO Q4H PRN (Reason: Cough) magnesium hydroxide [Milk of Magnesia] 400 mg/5 mL Suspension 30 ml PO DAILY PRN (Reason: Constipation) bisacodyl [Dulcolax (bisacodyl)] 10 mg Suppository 10 mg SD DAILY PRN (Reason: Constipation) nystatin 100,000 unit/gram Cream 1 appl TOPICAL Q4H PRN (Reason: fungal rash) Rx Instructions: alen-anal area insulin lispro 100 unit/mL Solution See Protocol SUBCUT TIDWM Protocol: Insulin Correction Scale Less than or equal to 110 ---- Give (units): 0 111 to 150 Give (units): 0 151 to 200 Give (units): 2 201 to 250 Give (units): 4 251 to 300 Give (units): 6 301 to 350 Give (units): 8 Greater than 350 Give (units): 10 Call MD if Blood Glucose > : 350 zinc sulfate 220 mg Capsule 220 mg PO DAILY insulin lispro protamin-lispro [Humalog Mix 75-25 KwikPen] 100 unit/mL (75-25) insulin pen 20 unit subcut DAILY@0900 insulin lispro protamin-lispro [Humalog Mix 75-25 KwikPen] 100 unit/mL (75-25) insulin pen 25 unit subcut DAILY@2000 albuterol sulfate 90 mcg/actuation Aerosol Powdr Breath Activated 2 inh INHALATION Q4H PRN (Reason: SOB/wheeze/cough) calcium carbonate-vitamin D3 600 mg-10 mcg (400 unit) capsule 1 cap PO BID Discontinued tamsulosin 0.4 mg capsule 0.8 mg PO BEDTIME lisinopril 10 mg tablet 10 mg PO DAILY Protocol: Hold for SBP< HOLD for SBP < : 112 metoprolol succinate 25 mg tablet extended release 24 hr 25 mg PO DAILY Discharge Orders: Discharge Order (Routine); Ordered 02/10/25 Ordered By: Michel Oreilly Diet: Advance to usual diet Activity on Discharge: As tolerated Stand Alone Forms: Patient Portal Discharge page Print Language: Belizean Care Plan Goals: prevent syncope Health Concerns: syncope due to orthostatic hypotension bradycardia Plan of Treatment: please STOP metoprolol succinate due to bradycardia + orthostatic hypotension also STOP lisinopril and tamsulosin due to orthostatic hypotension for supine hypertension, take hydralazine 10 mg at bedtime only if BP >150/80 use RADHA stockings bilateral legs [facility] Cardiology will arrange external event monitor; afterwards, follow up with them Please follow up with your primary care doctor within 1 week. Return to the hospital if you experience recurrent or worsening symptoms. Assessment: See Discharge Summary.
--- NOTE | 2025-02-10 12:30 | MHC.CM.PN ---
PT CLEARED TO RETURN TO [facility] TODAY CM SPOKE TO PTS LEGAL GUARDIAN/HCP, YUNIOR [phone] YUNIOR NOTES SHE IS THE ALT HCP ON FILE, HOWEVER PT COMPLETED A NEW ONE MAKING HER PRIMARY, COPY REQUESTED SHE IS AWARE PT WILL DC TO [facility] TODAY AT 1600 HOURS VIA [facility]
--- NOTE | 2025-02-10 13:29 | HO.WOUND ---
Wound Consult: Initial 89yr old?female admitted to [facility] [place] on 02/08/25 - See progress notes and H&P for detailed history.? Wound consult placed for Coccyx and Right Elbow.? Patient agreeable to assessment and photo documentation.? Right Elbow note for resolving skin tear - xeroform and foam dressing in place. Coccyx Etiology: ??Stage 2 Pressure Injury Present on Admission Measurements: 1.5cm x 2cm x 0.1cm Wound Bed: red wound bed - nonblanchable tissue Drainage / Odor: none Edges: ? irregular [place] wound: MASD ? No Induration, Fluctuance or Warmth noted Pain: tenderness reported Goals of Treatment: ? Triad and foam dressing Recommendations: 1. Turn and Reposition every 2 hours and as needed for patient comfort.? Use pillows or wedges to support off loading positions. 2. Off Load all bony prominences with use of pillows and heel boots if needed.? Apply Preventative foams where needed. ? 3. Monitor for incontinence and moisture control, use barrier creams when needed for prevention and treatment. 4. Provide adequate and supplemental nutrition.? 5. Continue low air loss mattress. 6. When applicable maintain blood glucose levels per Providers order. Right Elbow - Cleanse with normal saline, pat dry. ?Apply Xeroform secure with Abd pads, gauze wrap and tape. Change Daily. ?Do not apply tape to patient?s skin.? Avoid Adhesive application to skin - when necessary, apply skin prep prior.? Coccyx - Off Load Pressure with Q2 hr turns and use of pillows - Cleanse with PH balance spray or wipes, pat dry. ?Apply thin layer of Triad to wound bed. Do not remove all of paste between applications as this may cause further skin damage.? Cover with foam dressing to aid in off loading and protection from friction. Change every 5 days and PRN. Re-consult wound care Nurse for wound deterioration or wound changes.
[2025-02-10 16:00] VITALS: BP 163/71; PULSE 55; RESP 14; TEMP 36.7; O2SAT 96
[2025-02-10] MEDS: Enoxaparin Sodium 40 MG/0.4 ML SYRINGE SUBCUT (16:38)
[2025-02-11 02:02] LABS: Glucose, Whole Blood 229 mg/dL (60-115)
== END 2025-02-10 17:09 | disposition skilled nursing facility (03) | DRG 312 ==
LOC: HO.ED 16:55 → HO.EDOVER 18:51 → HO.IMC 02-09 07:51
PROVIDERS: Admitting Provider Family Medicine; Emergency Provider Emergency Medicine Emergency Medical Services; PCP Internal Medicine; Visit Provider Family Medicine
DX: I95.1 Orthostatic hypotension (principal); I49.5 Sick sinus syndrome; I25.10 Atherosclerotic heart disease of native coronary artery without angina pectoris; I10 Essential (primary) hypertension; E11.9 Type 2 diabetes mellitus without complications; E03.9 Hypothyroidism, unspecified; Z66 Do not resuscitate; Z20.822 Contact with and (suspected) exposure to COVID-19; Z79.4 Long term (current) use of insulin; Z79.890 Hormone replacement therapy; Z79.899 Other long term (current) drug therapy
CPT/HCPCS: 0241U; 36415; 80048; 80053; 81001; 82947; 84443; 84484; 85025; 85027; 87086; 93005; 93306; 99285; J1650; Q9957

== ENCOUNTER → 2025-02-08 12:06 | Outpatient (BNV) | payer MEDICARE, OTHER, SELFPAY | PROVIDERS: Emergency Provider Emergency Medicine Emergency Medical Services; PCP Internal Medicine; Visit Provider Internal Medicine Cardiovascular Disease | DX: I44.7 Left bundle-branch block, unspecified (principal); R00.1 Bradycardia, unspecified | CPT/HCPCS: 93010 ==

== ENCOUNTER 2025-02-08 18:45 | Outpatient (BNV) | payer MEDICARE, OTHER, SELFPAY | END 2025-02-09 07:00 | PROVIDERS: Admitting Provider Family Medicine; Emergency Provider Emergency Medicine Emergency Medical Services; PCP Internal Medicine; Visit Provider Internal Medicine Cardiovascular Disease | DX: I42.8 Other cardiomyopathies (principal); I36.1 Nonrheumatic tricuspid (valve) insufficiency | CPT/HCPCS: 93306 ==

== ENCOUNTER → 2025-02-08 18:45 | Outpatient (BNV) | payer MEDICARE, OTHER, SELFPAY | PROVIDERS: Admitting Provider Family Medicine; Emergency Provider Emergency Medicine Emergency Medical Services; PCP Internal Medicine; Visit Provider Internal Medicine Cardiovascular Disease | DX: R55 Syncope and collapse (principal) | CPT/HCPCS: 99222 ==

== ENCOUNTER → 2025-02-08 18:45 | Outpatient (BNV) | payer MEDICARE, OTHER, SELFPAY | PROVIDERS: Admitting Provider Family Medicine; Emergency Provider Emergency Medicine Emergency Medical Services; PCP Internal Medicine; Visit Provider Family Medicine | DX: R55 Syncope and collapse (principal) | CPT/HCPCS: 99232; 99239 ==

== ENCOUNTER → 2025-02-14 10:04 | Outpatient (REF) | payer MEDICARE, OTHER, SELFPAY ==
--- OUTSIDE RECORDS SUMMARY | 2025-02-14 11:46 | XMS_ITS | Data Portability ---
Author Organization [place] - [facility], Allergy Address [address] [address] Care Team Providers Care Design Engineer Name Role Phone PHILIPP OVIEDO Primary Care [...] Recorded Time Impacted cerumen in right ear [id number] 85749 Active 2021 Impacted cerumen, right ear; Note: Date Diagnosed : 07/14/2022 1:28 PM (H61.21) Not Available [facility] 4 02:40:09 Sensorine ural hearing loss of bilateral ears 969916241 Active 2015 Sensorine ural hearing loss, bilateral ; Note: Date Diagnosed : 6 1:22 PM (H90.3) Not Available [facility] 4 02:40:08 Otitis media of left ear 98000961881 02907 Active 2019 Otitis media, unspecifi ed, left ear; Note: Date Diagnosed : 03/22/2020 9:49 AM (H66.92) Not Available [facility] 4 02:40:08 Impacted cerumen of bilateral ears 70854631028 73007 Active 2015 Impacted cerumen, bilateral ; Note: Date Diagnosed : 6 12:21 PM (H61.23) Not Available [facility] 4 02:40:14 Impacted cerumen 41137876 Active 2013 Impacted cerumen; CMS Risk: low risk CMS Treatment : new problem (to examiner) : no additiona l workup planned Not Available [facility] 4 02:40:16 Otorrhea of left ear 73295269371 07948 Active 2019 Otorrhea, left ear; Note: Date Diagnosed : 04/23/2020 3:37 PM (H92.12) Not Available [facility] 4 02:40:13 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 Procedures Surgical History Date Name Laterality Status Provider Name and Address Organization Details Recorded Time 4 Cerumen removal without microscope bilat completed CATHERINE DESAI PA-C [address] [place] [address], [id number] - [facility] 07/26/2024 11:54:29 Imaging Results None recorded. Procedure Notes None recorded. Medical Equipment None Reported. Medications Name Sig Start Date Stop Date Status Note LastModified by Organization Details LastModified Time nifedipin e ER 30 mg tablet,ex tended release 24 hr 03/21 completed Medicati on ID: [id number] Du ration Value: 90 Reason: () Brand Name: nifedipi ne Send Method: E-Prescr ibed Sub s Allowed: subs OK Speci al Instruct ion: TAKE 1 TABLET BY MOUTH EVERY DAY Medi [facility] nericNam e: nifedipi ne Not Available Not Available Not Available amoxicill in 500 mg capsule TAKE 4 CAPSULES BY MOUTH ONE HOUR PRIOR TO DENTAL PROCEDUR E active Not Available Not Available No t Available metformin 500 mg tablet 03/15 completed Medicati on ID: [id number] D uration Value: 90 Brand Name: metformi n Send Method: E-Prescr ibed Sub s Allowed: subs OK [facility] metformi n Not Available Not Available Not Available lisinopri l 20 mg tablet active Not Available Not Available Not Available clonazepa m 0.5 mg tablet 04/23 completed Medicati on ID: [id number] D uration Value: 15 Reason: () Brand Name: clonazep am Send Method: E-Prescr ibed Sub s Allowed: subs OK Medic [facility] ericName : clonazep am Not Available Not Available Not Available Lantus U-100 Insulin 100 unit/mL subcutane ous solution 04/23 completed Medicati on ID: [id number] Du ration Value: 56 Reason: () Brand Name: Lantus U-100 Insulin Send Method: E-Prescr ibed Sub s Allowed: subs OK Speci al Instruct ion: INJECT 30 - 38 UNITS SUBCUTAN EOUSLY OR DIRECTED BY MD [facility] ericName : Lantus U-100 Insulin Not Available Not Available Not Available levothyro xine 100 mcg tablet 03/15 completed Medicati on ID: [id number] D uration Value: 90 Brand Name: levothyr oxine Se nd Method: E-Prescr ibed Sub s Allowed: subs OK Medic [facility] ericName : levothyr oxine Not Available Not Available Not Available ofloxacin 0.3 % ear drops 03/15 completed Medicati on ID: [id number] D uration Value: 10 Brand Name: ofloxaci n Send Method: E-Prescr ibed Sub s Allowed: subs OK Medic [facility] ericName : ofloxaci n Not Available [...] 3 drop 04/23 completed Medicati on ID: [id number] D uration Value: 14 Prescri bed By Name: Clara perez MD Brand Name: tobramyc in-dexam ethasone Send Method: E-Prescr ibed Sub s Allowed: subs OK Speci al Instruct ion: apply to affected ear Medi cationGe nericNam e: tobramyc in-dexam ethasone Not Available Not Available Not Available neomycin- polymyxin -hydrocor t 3.5 mg-10,000 unit/mL-1 % ear drops,ester p 03/21 completed Medicati on ID: [id number] Du ration Value: 30 Reason: () Brand [...] topical gel 03/15 completed Medicati on ID: [id number] B rand Name: diclofen ac sodium S end Method: E-Prescr ibed Sub s Allowed: subs OK Medic at[facility] ericName : diclofen ac sodium Not Available Not Available Not Available Arexvy (PF) 120 mcg/0.5 mL IM suspensio n active Medicati on ID: [id number] B rand Name: Audra (VELASQUEZ) Billy d Method: E-Prescr ibed Sub s Allowed: subs OK Medic at[facility]Gen ericName : Audra (PF) Not Available Not Available Not Available Vitals Date Recorded Body height Body mass index (BMI) Body weight Provider Name and Address Organization Details Last Updated DateTime 07/26/2024 157.48 cm 30.7 kg/m2 11991.52 g Donny Sarkar [place] - [facility] 07/26/2024 11:16:48 Social History None recorded. Functional Status None recorded. Mental Status None recorded. Family History Nothing Reported. Medical History No medical history recorded. Gynecological HistoryNo gynecological history recorded. Obstetrics History GPAL:G 0 P 0 0 0 0 Past Encounters Encounter ID Performer Location Encounter Start Date Encounter Closed Date Diagnosis/Indication Diagnosis SNOMED-CT Code Diagnosis ICD10 Code Diagnosis Note [id number] RUIZ CROW MD [facility] [address] [address] 07/26/2024 11:12:02 07/26/2024 11:56:27 Impacted cerumen of bilateral ears [id number] 120110 H61.23 Health Concerns Section Related Observation LastModified by Organization Detai ls LastModified Time None Recorded Concern Status LastModified by Organization Details LastModified Time None Recorded Advance Directives Directive None Recorded Payers Encounter Date Sequence Insurance Name Policy Number Policy Genao Covered Member ID Genao Member ID Guarantor Name 07/26/2024 1 [place]: [employer] Lisa Holliday [id number] Lisa Holliday 07/26/2024 2 [facility] [employer] - PLAN 1 (MEDICARE SUPPLEMENT) [id number] Lisa Holliday [id number] Lisa Holliday Notes Date Note Type Note Provider Name and Address Organization Details Recorded Time 07/26/2024 text/html 88-year-old female presents for evaluation of the ears. She reports that her hearing is very poor despite her hearing aids. She notes it has been a very long time since she had an audiogram. She denies otalgia, otorrhea, and tinnitus. RUIZ CROW MD [address] [place] [address], [place], [address], [place] - [facility] 07/26/2024 17:26:24 OBGyn Episode No OBEpisode recorded.
--- OUTSIDE RECORDS SUMMARY | 2025-02-14 11:46 | XMS_ITS ---
Author Organization [facility] Address [address] [place] [address] Care Team Providers Care Apprenticeship Representative Name Role Phone Kristin MAGALLANES, Janes Primary Care Provider Fernando Wall Unavailable [phone] Encounters Encounter Location Date Provider Diagnosis [facility] [address] [place] [address] 10/18/2024 Fernando Lim Plan Of Treatment No Information Progress Notes * Lisa HOLLIDAY ADOB:[birth year] (89 yo F)Acc No.[id number]:10/18/2024 Progress Note Patient:?Lisa HOLLIDAY Provider:?Fernando Lim DPM :1935???Age:88 Y???Sex:Female D ate:10/18/2024 Address: [place], [id number] Pcp:Janes Foster MD Subjective: * Chief Complaints: [...] DPM Date:?2023 Generated for Vii jesus manuel/Fabarg/eTransmitting on:?02/14/2025 11:46 AM EDT
--- OUTSIDE RECORDS SUMMARY | 2025-02-14 11:46 | XMS_ITS ---
Author Organization [facility] Address [address] [facility] [place] [address] Care Team Providers Care Goal Umpire Name Role Phone Janes Foster MD Primary Care Provider Fernando Wall Unavailable [phone] Allergies Allergen (clinical drug ingredient) Drug/Non Drug [...] Ordered Date Performed Result Body Sit e 62610-XGFRCIQ NAIL, 6 OR MORE 07/15/2024 N/A 24110-Uqpqmrcx Plate 07/15/2024 N/A 83759-KCSN SKIN LESIONS, OVER 4 07/15/2024 N/A Encounters Encounter Location Date Provider Diagnosis [facility] [place] [address] [place] [address] 07/15/2024 Fernando Lim Type 1 diabetes mellitus [...] Treatment Pending Test Test Name Order Date 21151-YPXSOYA NAIL, 6 OR MORE 07/15/2024 07565-Sqjynhdc Plate 07/15/2024 95097-CTPY SKIN LESIONS, OVER 4 07/15/20 24 Next [...] Motrin was recommended for pain or discomfort (13618) , DIABETES: Pt was advised as to [...] use of a nail nipper and/or dremel-type grinder set up operator surface, to a more viable healthy nail plate or bed tissue 6-10. Silver nitrate used for any petechial bleeding as necessary. Definitive antifungal treatment options have been reviewed and discussed with the patient. The patient chooses, no pharmaceutical tx - 35568 Keratoma Treatment Parring or Cutting o f Benign Hyperkeratotic Lesion(s) 68410 ( >4 Lesions) - The Benign hyperkeratotic lesions, as described above were pared, and/or cut utilizing a sterile #15 blade, tissue nippers, and/or dremel Progress Notes * Lisa HOLLIDAY ADOB:[birth year] (88 yo F)Acc No.[id number]:07/15/2024 Progress Note Patient:?Lisa Holliday Provider:?Fernando Lim DPM :1935???Age:88 Y???Sex:Female D ate:07/15/2024 Address: [address] , [id number] Pcp:Janes Foster MD Subjective: * Chief Complaints: [...] thyroidectomy needle Biopsy breast tissue 01/2017,02/2017Breast biopsy -[facility] 03/2017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 10/2011Vertigo 07/2012[facility] - BP was Low / Heart [...] , T5? Plan: * Treatment: 2.?Ingrown nail?Procedure: 44880-Oppcsbht Plate * Procedures:?Debride Nail 6-10:?Nail debridement?Performance of this nail treatment by a nonprofessional would put this patients foot and overall health at risk. Therefore, nail debridement was performed extensively to reduce/remove overall nail length, girth, thickness, subungual debris, and necrotic tissue, by manual and/or electrical means through the use of a nail nipper and/or dremel-type grinder set up operator surface, to a more viable healthy nail plate or bed tissue 6-10. Silver nitrate used for any petechial bleeding as necessary. Definitive antifungal treatment options have been reviewed and discussed with the patient. The patient chooses, no pharmaceutical tx - 17702.?Keratoma Treatment:?Parring or Cutting of Benign Hyperkeratotic Lesion(s)?36492 ( >4 Lesions) - The Benign hyperkeratotic [...] Motrin was recommended for pain or discomfort (72386) , DIABETES: Pt was advised as to the risk of delayed or nonhealing due to diabetes. Pt is to call the office with any questions, concerns, or complications.? * Procedure Codes:?52402 DEBRI DE NAIL, 6 OR MORE, Modifiers: XS 74576 Avulsion Plate, Modifiers: XS , [id number] TRIM SKIN LESIONS, OVER 4, Modifiers: XS * Follow Up:?prn * Images: * Sign off status: Completed true * Provider:?Fernando Lim DPM Date:?2023 Generated for Angélica ken/Jonnie/Nat on:?02/14/2025 11:46 AM EDT History and Physical Notes * HPI (History [...]
--- OUTSIDE RECORDS SUMMARY | 2025-02-14 11:46 | XMS_ITS | Patient Health Record ---
Author Organization [facility] Address [address] [place] [address] Care Team Providers Care Electrical And Instrumentation Manager Name Role Phone Janes Foster MD Primary Care Provider Fernando Wall Unavailable [phone] Allergies Allergen (clinical drug ingredient) Drug/Non Drug [...] Problem Acquired hammer toe of right foot ([id number] ) Other hammer toe(s) (acquired), right foot (M20.41) Active confirmed Response to treatment, Improvemen t Problem Acquired hammer toe of left foot (4615491660747607 ) Other hammer toe(s) (acquired), left foot (M20.42) Active confirmed Response to treatment, Improvemen t Problem Polyneuropathy due to diabetes mellitus type I (027567295) 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 Vital Signs Blood pressure diastolic 68 mm Hg 07/15/2024 Height 5 ft 6 in in 07/15/2024 Blood pressure systolic 128 mm Hg 07/15/2024 Weight 175 lbs 07/15/2024 BMI 28.24 kg/m2 07/15/2024 Procedures Procedure Date Ordered Date Performed Result Body Sit e 16242-GOQZSRM NAIL, 6 OR MORE 02/19/2024 N/A 50554-Fxapcaez Plate 02/19/2024 N/A 70347-MKWB SKIN LESIONS, OVER 4 02/19/2024 N/A 53454-VBCSRTJ NAIL, 6 OR MORE 05/03/2024 N/A 38196-Pdoazrtt Plate 05/03/2024 N/A 67255-REPO SKIN LESIONS, OVER 4 05/03/2024 N/A 12868-SPGNRPW NAIL, 6 OR MORE 07/15/2024 N/A 50069-Cahabzhd Plate 07/15/2024 N/A 08360-MKOH SKIN LESIONS, OVER 4 07/15/2024 N/A Encounters Encounter Location Date Provider Diagnosis [facility] [place] [address] [place] [address] 02/19/2024 Fernando Lim Type 1 diabetes mellitus with diabetic polyneuropathy E10.42 ; Tinea unguium B35.1 ; Ingrown nail L60.0 ; Other hammer toe(s) (acquired), right foot M20.41 and Other hammer toe(s) (acquired), left foot M20.[address] [address] 05/03/2024 Fernando Lim Type 1 diabetes mellitus with diabetic polyneuropathy E10.42 ; Tinea unguium B35.1 and Ingrown nail L60.[address] [address] 07/15/2024 Fernando Lim Type 1 diabetes mellitus with diabetic polyneuropathy E10.42 ; Tinea unguium B35.1 and Ingrown nail L60.[address] [address] 10/17/2024 Fernando Lim Assessments Encounter Date Diagnosis [...] Test Name Order Date Hemoglobin A1c 11/30/2015 50456-NNFVGKA NAIL, 6 OR MORE 02/01/2016 30650-SHRELGN NAIL, 6 OR MORE 04/08/2016 85923-ZPMSXMT NAIL, 6 OR MORE 07/08/2016 99745-OUOMGDO NAIL, 6 OR MORE 09/16/2016 76723-QLQBXIU NAIL, 6 OR MORE 08/21/2015 13310-QKVPWHO NAIL, 6 OR MORE 11/30/2015 65075-QMLNKCJ NAIL, 6 OR MORE 08/25/2014 46399-TGITPTX NAIL, 6 OR MORE 10/27/2014 00017-YJKLNAI NAIL, 6 OR MORE 01/12/2015 82536-EDAXGSZ NAIL, 6 OR MORE 03/16/2015 46551-ILHHHFR NAIL, 6 OR MORE 05/25/2015 40493-DDEKINO NAIL, 6 OR MORE 06/18/2012 90635-FSEMGKY NAIL, 6 OR MORE 08/27/2012 78714-UANLTCJ NAIL, 6 OR MORE 01/04/2013 25316-NZWMYRQ NAIL, 6 OR MORE 03/25/2013 34835-GUVVDSY NAIL, 6 OR MORE 06/17/2013 28267-UWVETHP NAIL, 6 OR MORE 08/26/2013 81939-AOXXRKO NAIL, 6 OR MORE 12/02/2013 84792-OYPGUHU NAIL, 6 OR MORE 02/10/2014 25920-TNBJWQO NAIL, 6 OR MORE 06/06/2014 60632-JPAAUXU NAIL, 6 OR MORE 12/19/2016 52531-DVAVPXO NAIL, 6 OR MORE 04/03/2017 58161-NMGXUJQ NAIL, 6 OR MORE 06/05/2017 72015-PZUEHWW NAIL, 6 OR MORE 08/14/2017 30778-VNNJXJM NAIL, 6 OR MORE 10/23/2017 56711-QLSPNTT NAIL, 6 OR MORE 01/01/2018 53872-JTXHVJU NAIL, 6 OR MORE 05/11/2018 33077-HFKPHFW NAIL, 6 OR MORE 07/27/2018 59428-SZHMDDU NAIL, 6 OR MORE 10/12/2018 38067-HOPBKBP NAIL, 6 OR MORE 01/14/2019 26589-UTZEHNR NAIL, 6 OR MORE 04/08/2019 06047-YXRFGAG NAIL, 6 OR MORE 08/16/2019 41723-JFSWGMZ NAIL, 6 OR MORE 10/25/2019 82512-QMWCEUL NAIL, 6 OR MORE 01/03/2020 73334-MFRIAIL NAIL, 6 OR MORE 05/01/2020 93805-DOODVOD NAIL, 6 OR MORE 08/17/2020 86961-DPAFBND NAIL, 6 OR MORE 10/30/2020 57854-ORIIHXT NAIL, 6 OR MORE 01/01/2021 68933-CCOTUAX NAIL, 6 OR MORE 03/29/2021 69606-KBAHJCB NAIL, 6 OR MORE 06/14/2021 03484-OKNQHMW NAIL, 6 OR MORE 11/29/2021 98597-NHKMMJU NAIL, 6 OR MORE 02/11/2022 69505-DZNDLES NAIL, 6 OR MORE 06/10/2022 85063-IRFXXOO NAIL, 6 OR MORE 09/13/2021 15947-HWAVTXX NAIL, 6 OR MORE 08/22/2022 85097-COLUFDC NAIL, 6 OR MORE 10/31/2022 83241-JJFXTNH NAIL, 6 OR MORE 01/09/2023 90536-QUMBZYF NAIL, 6 OR MORE 03/24/2023 00417-FPDFCVP NAIL, 6 OR MORE 06/05/2023 30106-RTHBKQT NAIL, 6 OR MORE 09/29/2023 07220-LBBXKYT NAIL, 6 OR MORE 02/19/2024 40633-YTYNYTH NAIL, 6 OR MORE 05/03/2024 97592-HVYEUXE NAIL, 6 OR MORE 07/15/2024 64210-Nyhrfupq Plate 07/15/2024 63549-Bpafwnbc Plate 09/29/2023 93520-Jyqgudzp Plate 05/03/2024 93028-Idweydcd Plate 02/19/2024 37256-Bzlofmvt Plate 06/05/2023 21913-Qpxosnqy Plate 10/30/2020 75757-Faduuvnu Plate 03/24/2023 69876-Abnjrzrt Plate 08/22/2022 52699-Pyynyjwp Plate 09/13/2021 89441-Oopktpvd Plate 06/10/2022 71743-Tlnkyurx Plate 02/11/2022 73679-Ejwkhqdr Plate 11/29/2021 44181-Xwrkzdub Plate 06/14/2021 55596-Onqzkmjc Plate 03/29/2021 85683-Xsmaigzw Plate 05/01/2020 16574-Bfcecygv Plate 06/06/2014 95559-Xwjkpetn Plate 02/10/2014 11242-Fkwnkkiw Plate 12/02/2013 42716-Kapboznm Plate 05/25/2015 92873-Lxohroba Plate 03/16/2015 34923-Nhgbjxin Plate 01/12/2015 39473-Jefqmury Plate 01/04/2013 95771-Jhcltgwk Plate 08/21/2015 47041-Btchwpgl Plate 11/30/2015 26587-Iknftuug Plate Each Additional 23534-Dmnlvkgn Plate Each Additional 56555-Ksmpqbdk Plate Each Additional 11/2014 26780-Fhcpjpby Plate Each Additional 08/2015 38087-Yrapxldy Plate Each Additional 15652-Ufgpbwwm Plate Each Additional 62215-Prwdspav Plate Each Additional 75775-Fsfqyfgg Plate Each Additional 49815-Hahvckuu Plate Each Additional 05193-Zmydslqf Plate Each Additional 67851-Ztemrbyf Plate Each Additional 25498-Tumhllpt Plate Each Additional 28692 I&D ABSCESS- SIMPLE,SINGLE 015 27712-WOLM SKIN LESIONS, OVER 4 06/10/20 22 64353-YCZN SKIN LESIONS, OVER 4 08/22/20 22 21032-DVBO SKIN LESIONS, OVER 4 03/24/20 23 72839-AAYD SKIN LESIONS, OVER 4 01/09/20 23 65584-AIYB SKIN LESIONS, OVER 4 10/31/20 22 24570-AFBB SKIN LESIONS, OVER 4 02/12/20 22 38210-RUTR SKIN LESIONS, OVER 4 06/05/20 23 73950-VLBO SKIN LESIONS, OVER 4 09/29/20 23 90903-UCLW SKIN LESIONS, OVER 4 02/19/20 24 81294-NVKN SKIN LESIONS, OVER 4 05/03/20 24 55702-RRKX SKIN LESIONS, OVER 4 07/15/20 24 45160-YXSZ SKIN LESIONS, 2 TO 4 11/29/19 29148-DEFT SKIN LESIONS, 2 TO 4 03/29/20 21 44849-TEIG SKIN LESIONS, 2 TO 4 01/01/20 21 57270-QDJZ SKIN LESIONS, 2 TO 4 06/14/20 21 78349-QZOR SKIN LESIONS, 2 TO 4 09/13/20 21 59942-BSBN SKIN LESIONS, 2 TO 4 05/01/20 20 97690-PFYE SKIN LESIONS, 2 TO 4 01/03/20 20 31270-YKGI SKIN LESIONS, 2 TO 4 10/30/20 20 69822-JFSE SKIN LESIONS, 2 TO 4 08/17/20 20 01425-BKTX SKIN LESIONS, 2 TO 4 10/25/20 19 09276-DKLP SKIN LESIONS, 2 TO 4 08/16/20 19 26859-NTQH SKIN LESIONS, 2 TO 4 04/08/20 19 93338-OBBZ SKIN LESIONS, 2 TO 4 01/15/20 19 78986-TETR SKIN LESIONS, 2 TO 4 10/12/20 18 35835-QJTP SKIN LESIONS, 2 TO 4 07/27/20 18 52020-KJGW SKIN LESIONS, 2 TO 4 05/11/20 18 05321-GFDR SKIN LESIONS, 2 TO 4 01/01/20 18 50862-ZZLU SKIN LESIONS, 2 TO 4 10/23/20 17 63774-PQKT SKIN LESIONS, 2 TO 4 08/14/20 17 93862-GCHY SKIN LESIONS, 2 TO 4 06/05/20 17 62087-JZEY SKIN LESIONS, 2 TO 4 12/19/19 17 80889-LZHD SKIN LESIONS, 2 TO 4 04/03/20 17 59880-DIJV SKIN LESIONS, 2 TO 4 08/21/20 15 27926-JLDQ SKIN LESIONS, 2 TO 4 11/30/19 16 17894-SPLP SKIN LESIONS, 2 TO 4 09/16/20 16 30369-YKRZ SKIN LESIONS, 2 TO 4 07/08/20 16 67980-GCFP SKIN LESIONS, 2 TO 4 04/08/20 16 52930-JZFQ SKIN LESIONS, 2 TO 4 02/01/20 16 50062-JWXT SKIN LESIONS, 2 TO 4 05/25/20 15 20549-KDKH SKIN LESIONS, 2 TO 4 03/16/20 15 17955-DLTG SKIN LESIONS, 2 TO 4 01/12/20 15 61994-RKND SKIN LESIONS, 2 TO 4 10/27/20 14 97346-EQYF SKIN LESIONS, 2 TO 4 08/25/20 14 89839-TITV SKIN LESIONS, 2 TO 4 06/18/20 12 76346-CVHZ SKIN LESIONS, 2 TO 4 03/25/20 13 26421-EKYN SKIN LESIONS, 2 TO 4 01/04/20 13 06688-JNHH SKIN LESIONS, 2 TO 4 08/27/20 12 29188-FRFD SKIN LESIONS, 2 TO 4 07/25/20 11 99003-PYZZ SKIN LESIONS, 2 TO 4 10/03/20 11 60972-XCDA SKIN LESIONS, 2 TO 4 12/23/19 12 51560-JGLX SKIN LESIONS, 2 TO 4 03/19/20 12 15624-RESD SKIN LESIONS, 2 TO 4 06/06/20 14 88888-ZOMH SKIN LESIONS, 2 TO 4 02/11/20 14 19925-KZER SKIN LESIONS, 2 TO 4 12/02/19 14 35942-FQHM SKIN LESIONS, 2 TO 4 08/26/20 13 75251-DNFC SKIN LESIONS, 2 TO 4 06/17/20 13 P8218-OBMUQPTH DYSTROPHIC NAILS ANY # A2733-JLNGZEEW DYSTROPHIC NAILS ANY # V9077-WSQXVITJ DYSTROPHIC NAILS ANY # H1632-HNLLUUAS DYSTROPHIC NAILS ANY # Insurance Providers Payer Name Payer Address Payer Phone Subscriber Number Group Number Insured Name Patient Relationship to Insured Coverage Start Date Coverage End Date Medicare [employer] [address] [place] [address] [id number] Lisa Holliday Self - patient is the insured [facility] [address] [place] [address] [id number] Lisa Holliday Self - patient is the [...] replacement Surgery 03/31 Hospitalization History Reason Date(Month/Year) [facility] [place] [place] - BP was Low / Heart blockage few hrs 11/2022 Vertigo 07/2012 Vertigo. 10/2011
--- OUTSIDE RECORDS SUMMARY | 2025-02-14 11:46 | XMS_ITS ---
Author Organization [facility] Address [address] [place] [address] Care Team Providers Care Merchandising Internship Name Role Phone Janes Foster MD Primary Care Provider Fernando Wall Unavailable [phone] REASON FOR VISIT cx 10/18 Encounters Encounter Location Date Provider Diagnosis [address] [address] 10/17/2024 Fernando Lim Plan Of Treatment No Information Progress Notes * TIFFANYYuli Lisa ADOB:[birth year] (89 yo F)Acc No.[id number]:10/17/2024 Patient:?Lisa HOLLIDAY :1935???Age:88 Y???Sex:Female Address:[address] [place], [address] * true * Date:? Generated for Printi jesus manuel/Jonnie/eTransmitting on:?02/14/2025 11:46 AM EDT
--- OUTSIDE RECORDS SUMMARY | 2025-02-14 11:46 | XMS_ITS | Continuity of Care Document ---
Author Organization [facility] Nik lt Address [address] [place] [address]- Care Team Providers Care Electric Meter Setter Name Role Phone Janes Foster MD Primary Care Physician Encounter [facility] Date(s): 01/11/25 - 02/10/25 [facility] Adult [address] [place] [address]- Encounter Type: Triage Allergies, Adverse Reactions, Alerts [...] Vaccine (oldterm) 4 08/03/09 Given SARS-CoV-2 mRNA (bkshugl-gyfe-pckup) vax 5 07/31/24 Recorded SARS-CoV-2 mRNA (gitmgfo-wwuu-ynuzz) vax 04/03/22 Recorded influenza virus vaccine, inactivated [...] vaccine, inactivated 11 09/09/06 G iven SARS-CoV-2(COVID-19)mRNA-LNP vac([id number]) 07/30/24 Recorded RSV vaccine preF3, recombinant 12/19/23 Recorded zoster vaccine, inactivated 07/25/23 Recorded zoster vaccine, inactivated 05/23/23 Recorded pneumococcal 20-valent conjugate vaccine 05/22/23 Given [id number] 12y+ bivalent booster vax 09/16/22 Recorded SARS-CoV-2 [...] (oldterm) 11/16/04 Given 1Result Comment: [facility] 2Result Comment: local pharmacy 3Admin Note[facility] [place] 4Admin Note: given by simone doc by jose 5Result Comment: [facility] 6Result Comment: [facility] 7Admin Note: done at [facility] 8Admin Note: [facility] 9Admin Note: [facility] 10Admin Note: VIS GIVEN 11Admin Note: GIVEN IN [facility] 12Result Comment: [facility] Booster #3 vaccine 13Admin Note: [facility] 14Admin Note: [facility] VIS [id number] given 15Admin Note: historical data Medications Accu-Chek [...] USE DIRECTED DX BREAST CANCER C50.919 FAX [phone], 12/17/16 10:11:47 AM EST, Compound Start Date: 12/17/16 Status: Ordered Quantity: 1.0 Unit: each Repeat number: 1 Diabetic Shoes Diabetic Shoes, See Instructions, # 2 each, Refills 0, Tot. Refills 0, Maintenance, Dx: Diabetic type 2 with Neuropathy WT: 166lbs HT: 5'5 , 10/21/22 1:46:00 PM EST, Supply Start Date: 10/21/22 Status: Ordered Quantity: 2.0 Unit: each Repeat number: 1 FreeStyle Anna 14day Sensor FreeStyle Anna 14day Sensor, See Instructions, # 6 each, Refills 3, Tot. Refills 3, Maintenance, Dx: long-term insulin dependent diabetes type 2 (Z79.4) Use to check blood sugar levels daily Chage sensor every 14days, 11/10/24 12:57:00 PM EST, Supply, 165, cm, 06/15/24 13:43:00 EDT, Height Start Date: 11/10/24 Status: Ordered Quantity: 6.0 Unit: each Repeat number: 4 Hearing test Hearing test, See Instructions, # [...] 1 Refills, Maintenance, 10/10/24 4:10:00 PM EST, [facility] STORE [id number], 165, cm, 06/15/24 13:43:00 EDT, Height Start Date: 10/10/24 Status: Ordered Quantity: 30.0 Unit: Unknown Repeat number: 1 levothyroxine 0.112 mg oral tablet 1 tablet, By Mouth, Daily, # 90 tablet, 3 Refills, Maintenance, 01/11/25 2:57:00 PM EST, [facility], 165, cm, 06/15/24 13:43:00 EDT, Height Start Date: 01/11/25 Status: Ordered Quantity: 90.0 Unit: tablet Repeat number: 1 MASTECTOMY BRA MASTECTOMY BRA, See Instructions, # 3 each, Refills 1, Tot. Refills 1, Maintenance, USE DIRECTEDDX BREAST CA C50.919 FAX [phone], 12/17/16 10:13:30 AM EST, Compound Start Date: [...] Replace Required Details, Route to Pharmacy Electronically, [facility], 165, [...] 5 Refills, Maintenance, 09/19/24 8:31:00 AM EST, [id number], 165, cm, 06/15/24 13:43:00 EDT, Height Start Date: 09/19/24 Status: Ordered Quantity: 45.0 Unit: Unknown Repeat number: 1 Pen [place], 31 G x 5 mm BD [...] 3 Refills, Maintenance, 04/15/24 8:26:00 AM EDT, [facility], 165, [...] 12:00:00 PM EDT, Route to Pharmacy Electronically, [facility], 165, [...] Refills, Maintenance, 09/22/24 10:42:00 AM EST, Tablet, [facility], Partial [...] Team Personnel Name: Janes Foster MD Position: S Physician - Primary Care Member Role: PCP Address: [address] [place] [address]- Telecom: Name: Zamzam Alejandro RN Position: [facility] RN Member Role: Primary Care Nurse Name: Sheeba ([facility]) Stephanie Position: [facility] sample supervisor Member Role: [place] Name: Juan Manuel Hernandez Position: [facility] Outreach Member Role: Lifetime Consulting Physician Name: Ena Posey RN Position: [facility] SN RN Member Role: Primary Care Nurse Care Team Related Persons Name: YUNIOR JOHNSON Name: RAFAEL JOHNSON Name: ZOYA SIN Insurance Providers Guarantor name: ARGENIS JOHNSON Health Plan Information #: 1 Payer: MEDICARE PART B OUTPT Member Number: NA Policy Number: NA Group Number: NA Health Plan Information #: 2 Payer: [facility] Member Number: NA Policy Number: NA Group Number: NA
== END ==
LOC: HO.CARD 10:04
PROVIDERS: Visit Provider Internal Medicine Cardiovascular Disease
DX: R00.1 Bradycardia, unspecified (principal); R55 Syncope and collapse
CPT/HCPCS: 93270

== ENCOUNTER → 2025-02-14 10:11 | Outpatient (BNV) | payer MEDICARE, OTHER, SELFPAY | PROVIDERS: Visit Provider Internal Medicine | DX: I47.10 Supraventricular tachycardia, unspecified (principal) | CPT/HCPCS: 93272 ==

== ENCOUNTER 2025-03-11 11:31 | Inpatient (IN) | payer MEDICARE, OTHER, SELFPAY ==
[2025-03-11] VITALS (12 sets, daily range): BP systolic 103–140; BP diastolic 35–56; PULSE 64–97; RESP 12–26; TEMP 36.4–36.5; O2SAT 94–99; BMI 33.4; BMI 30.6
--- NOTE | ~2025-03-11 | XR_ITS ---
EXAMINATION: XR CHEST CLINICAL INFORMATION: Hypoxia COMPARISON: 03/11/2025, 01/17/2025. TECHNIQUE: Frontal view of the chest was obtained. FINDINGS: A nonspecific monitoring device again projects over the left hemithorax. Mild cardiac enlargement. Mediastinal contours appear normal. Aortic mural calcifications. Vascular congestion in the hilar regions. Lungs demonstrate diffusely increased hazy interstitial markings bilaterally, with Sasha B lines in the lung bases, and patchy opacities in the retrocardiac region, probably atelectasis. Minimal blunting of the left costophrenic angle, possible small effusion. There is no pneumothorax. No focal osseous or soft tissue abnormality. XR/XR chest 1V IMPRESSION: 1. Mild cardiomegaly with developed interstitial pulmonary edema. 2. Cannot exclude a tiny left effusion. No pneumothorax. Electronically signed by: Alvino Pack MD 03/15/2025 08:59 AM EDT
--- NOTE | ~2025-03-11 | XR_ITS ---
CLINICAL HISTORY: dka 1 view chest x-ray Comparison: CR/NH/SR - XR CHEST 1V - 01/17/25 15:05 EST Findings: Nonspecific device artifact projects over the left hemithorax. There are patchy right lower lobe opacities. There are bilateral perihilar opacities. No pleural effusion or pneumothorax. The cardiac silhouette is enlarged. No acute fracture. IMPRESSION: 1. Patchy opacities in the right lower lobe may be inflammatory or infectious in etiology. 2. Bilateral perihilar opacities secondary to pneumonitis or fluid overload. This document has been electronically signed by: Darcy Farrell DO on 03/11/2025 16:22:37
[2025-03-11 11:42] LABS: Glucose, Whole Blood 416 mg/dL (60-115)
--- NOTE | 2025-03-11 11:47 | PC.NURSE ---
patient presents from home, recent dc from rehab for possible broken hip. per ems patient family stated increased polyuria and polydipsia since yesterday. patient states she feels very thirsty, was given a home uti test by [facility] and was positive, patient gets chronic uti. patient got 400cc normal saline by ems. 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 per family patient got 12u humilog this AM. patient skin noted to be dry and intact
--- NOTE | 2025-03-11 12:10 | ED_ITS ---
HPI - General Adult General Chief complaint: General Medical Stated complaint: HYPERGLYCEMIA Time Seen by Provider: 03/11/25 12:01 Source: patient, family and EMS Mode of arrival: EMS Limitations: no limitations History of Present Illness ED Provider: DR. Harris HPI narrative: 89-year-old female pertinent history of arthritis, LBBB, dm 2, CAD, s/p left femoral fracture s/p ORIF the require a rehab with no weight bearing for 3 months, patient now is back home where she lives mostly independently, family take care of her also and visit every day. Type 2 diabetes controlled by insulin, takes Lantus 20 units at night and Humalog 3 times via sliding scale, patient been having a urinary frequency at home but no dysuria, fever, chills, or abdominal pain. Patient found to have high blood. Related Data Home Medications ?Medication ?Instructions ?Recorded ?Confirmed acetaminophen 325 mg tablet 650 mg PO Q4-6H PRN Pain/Fever 10/31/24 02/08/25 (Tylenol) levothyroxine 112 mcg tablet 112 mcg PO DAILY@0600 10/31/24 02/08/25 calcium 600 mg (as 1 cap PO BID 02/02/25 02/08/25 carbonate)-vitamin D3 10 mcg (400 unit) capsule albuterol sulfate 90 mcg/actuation 2 inh inhalation Q4H PRN 02/08/25 02/08/25 breath activated powder inhaler SOB/wheeze/cough bisacodyl 10 mg rectal suppository 10 mg IL DAILY PRN Constipation 02/08/25 02/08/25 (Dulcolax (bisacodyl)) cyanocobalamin (vitamin B-12) 100 100 mcg PO DAILY 02/08/25 02/08/25 mcg tablet guaifenesin 100 mg/5 mL oral liquid 200 mg PO Q4H PRN Cough 02/08/25 02/08/25 insulin lispro 100 unit/mL See Protocol subcut TIDWM 02/08/25 02/08/25 subcutaneous solution insulin lispro protamine-lispro 20 unit subcut DAILY@0900 02/08/25 02/08/25 100 unit/mL (75-25) subcutaneous pen (Humalog Mix 75-25 KwikPen) insulin lispro protamine-lispro 25 unit subcut DAILY@199902/08/25 02/08/25 100 unit/mL (75-25) subcutaneous pen (Humalog Mix 75-25 KwikPen) loperamide 2 mg capsule 2 mg PO Q8H PRN Loose Stool 02/08/25 02/08/25 magnesium hydroxide 400 mg/5 mL 30 ml PO DAILY PRN Constipation 02/08/25 02/08/25 oral suspension (Milk of Magnesia) nystatin 100,000 unit/gram topical 1 appl topical Q4H PRN fungal rash 02/08/25 02/08/25 cream ondansetron HCl 4 mg tablet 4 mg PO Q8H PRN nausea/vomiting 02/08/25 02/08/25 pravastatin 40 mg tablet 80 mg PO BEDTIME 02/08/25 02/08/25 tramadol 50 mg tablet 50 mg PO Q8H PRN moderate to 02/08/25 02/08/25 severe pain zinc sulfate 220 mg capsule 220 mg PO DAILY 02/08/25 02/08/25 Previous Rx's ?Medication ?Instructions ?Recorded hydralazine 10 mg tablet 10 mg PO BEDTIME PRN BP > 150/80 02/10/25 #1 tab Allergies Allergy/AdvReac Type Severity Reaction Status Date / Time adhesive tape [Adhesive Tape] Allergy Unknown SKIN Verified 03/11/25 11:42 REDNESS Review of Systems 2 Review of Systems: All other systems are reviewed and are negative Constitutional: Reports as per HPI and Reports no additional constitutional complaints Eyes: Reports as per HPI and Reports no additional eye complaints Reports system reviewed and no additional complaints, except as documented Cardiovascular: Reports as per HPI and Reports no additional cardiovascular complaints Respiratory: Reports as per HPI and Reports no additional respiratory complaints Gastrointestinal: Reports as per HPI and Reports no additional gastrointestinal complaints Genitourinary: Reports no additional female genitourinary complaints Musculoskeletal: Reports no additional musculoskeletal complaints Skin/Breast: Reports system reviewed and no additional complaints, except as docu Psychiatric: Reports no additional psychiatric complaints Endocrine: Reports no additional endocrine complaints Hematologic/Lymphatic: Reports no additional hematologic/lymphatic complaints Allergic/Immunologic: Reports no additional allergic/immunologic complaints Reports system reviewed and no additional complaints, except as documented and Reports Abnormal speech present PMFSH Past Medical History Medical History Patellofemoral arthritis of right knee Diabetes mellitus Left bundle branch block CAD (coronary artery disease) Surgical History Hx of mastectomy Hx of mastectomy Social History Social History Household Members: None Household Members Other:: Home alone, [facility] Housing: Fpc Do you presently have visiting nurse or other home services: Yes (Visiting PT) Patient Tobacco Use Status: Never used Tobacco Advance Directives: No Advance Directives Information Provided: No Advance Directives Date on File: 11/01/24 Do you have a plan to hurt others: No Plan service: No Current occupational status: retired 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 Blood pressure elevated. Heart rate normal. Respiratory rate normal. Temperature normal. Oxygen saturation normal. Appearance: Alert. Oriented X3. No acute distress. Head: Normal external exam. Normocephalic. Atraumatic. No Foss signs noted. No raccoon eyes noted Eyes: PERRLA. EOMI. Conjunctiva and sclera normal. Eyelids normal. ENT: TM's Normal. Pharynx normal. Uvula midline. Moist mucous membranes. No trismus noted. No drooling noted. No muffled voice noted. Neck: Normal inspection. Neck supple. FROM. No adenopathy. Thyroid Normal. No meningeal signs. No neck mass noted. CVS: Normal heart rate and rhythm. Heart sound normal. No murmurs noted. Pulses normal throughout. Respiratory: No respiratory distress. Painless inspiration. Breath sounds normal. No wheezes/rales/rhonchi noted. Chest nontender. No accessory muscle usage noted or decreased air movement noted. Abdomen: Soft and nontender. Bowel sounds normal in all 4 quadrants. No distention noted. No organomegaly noted. No visible injury noted. Back: No CVA tenderness. Full range of motion noted. Skin: Skin warm and dry. Normal skin color. Normal skin turgor. No rashes/lesions/lacerations noted. Extremities: No lower extremity edema. Extremities exhibit normal range of motion. Extremities nontender. Neuro: Oriented X 3. Cranial nerve exam: II-XII are grossly intact No motor deficit. No sensory deficit. Reflexes normal. Course Reevaluation(s) Reevaluation #1: 89-year-old female insulin-dependent diabetes presented in DKA, patient is on fluids and IV insulin drip. Been having dysuria and frequency urination possible UTI given empirical ceftriaxone. Admit to ICU, case discussed with Dr. Peralta and patient accepted to ICU. Time: 14:12 Medications Administered Generic Name Dose Route Start Last Admin Trade Name Freq PRN Reason Stop Dose Admin Insulin Human Regular 100 unit in 100 mls @ 8 mls/hr 03/11/25 13:30 03/11/25 13:40 Myxredlin IVCONT 8 unit/hr .[id number] ANTONINA 8 mls/hr Administration Protocol 8 UNIT/HR Discontinued Medications Generic Name Dose Route Start Last Admin Trade Name Freq PRN Reason Stop Dose Admin Sodium Chloride 1,000 mls @ 999 mls/hr 03/11/25 12:09 03/11/25 12:17 Ns IV 03/11/25 13:09 999 mls/hr .Q1H1M ONE Administration Insulin Human Regular 5 unit 03/11/25 12:10 03/11/25 12:16 Insulin Regular, Human 100 Unit/Ml 10 Ml Vial IVPUSH 03/11/25 12:11 5 unit ONCE ONE Administration Medical Decision Making Differential Diagnosis Differential Diagnoses: The differential diagnosis associated with the presentation includes (DKA, pneumonia, pneumothorax, pleural effusion, UTI, electrolyte derangement, severe anemia.) Admission/Observation Consideration of admission/observation: Escalation of care including admission/observation considered Consult Healthcare Provider Management of the patient was discussed with: Electric Car Operator (Dr. Peralta.) Lab Data MDM Lab Attestation statement: I reviewed the patient's lab results. 03/11/25 12:22 03/11/25 12:22 Labs: Lab Results 03/11/25 03/11/25 03/11/25 Range/Units 11:38 12:22 13:35 WBC 11.9 H (4.8-10.8) X10*3/uL RBC 4.05 L (4.20-5.50) X10*6/uL Hgb 10.5 L (12.0-16.0) g/dl Hct 34.0 L (37.0-47.0) % MCV 84.0 (80.0-98.0) fL MCH 25.9 L (27.0-33.0) pg MCHC 30.9 L (31.0-35.0) g/dl RDW 17.2 H (11.0-16.0) % Plt Count 305 D (160-400) X10*3/uL MPV 11.2 (9.4-12.3) fL Immature Gran % (Auto) 0.5 H (0.0-0.4) % Neut % (Auto) 89.1 H (45-73) % Lymph % (Auto) 4.0 L (20-40) % Beauregard % (Auto) 6.1 (2-11) % Eos % (Auto) 0.0 (0-4) % Baso % (Auto) 0.3 (0-2) % Lymph # (Auto) 0.5 L (1.2-4.9) X10*3/uL Bea[place]gard # (Auto) 0.7 (0.1-1.2) X10*3/uL Eos # (Auto) 0.0 (0.0-0.4) X10*3/uL Baso # (Auto) 0.0 (0.0-0.2) X10*3/uL Abs Immat Gran (auto) 0.06 H (0.00-0.03) X10*3/uL Absolute Neuts (auto) 10.6 H (2.0-8.3) x10*3/uL Absolute Nucleated RBC 0.000 (0.0-0.012) X10*3/uL Nucleated RBC % (auto) 0.0 (0.0-0.2) /100WBC VBG pH (7.32-7.43) VBG pCO2 mmHg VBG pO2 mmHg VBG HCO3 (22-26) mmol/L VBG O2 Saturation % VBG Base Excess mmol/L Sodium 132 L (135-145) mmol/L Potassium 4.7 (3.3-5.1) mmol/L Chloride 99 (96-108) mmol/L Carbon Dioxide 6 L* D (22-29) mmol/L Anion Gap 32 H (12-20) BUN 29 H (9-16) mg/dL Creatinine 1.44 H (0.5-1.4) mg/dL Estim Creat Clear Calc 28.5 Estimated GFR 34 POC Glucose 416 H* (60-115) mg/dL Random Glucose 422 H* (60-115) mg/dL Lactic Acid 1.9 (0.5-2.0) mmol/L Calcium 8.9 (8.4-10.2) mg/dL Total Bilirubin 0.6 (0.0-1.0) mg/dL AST 23 (5-31) U/L ALT 7 (0-31) U/L Alkaline Phosphatase 107 (39-117) U/L Total Protein 6.5 (6.5-8.0) g/dL Albumin 3.6 (3.5-5.0) g/dL Beta-Hydroxybutyrate 9.39 H (0.02-0.27) mmol/L 03/11/25 03/11/25 Range/Units 13:38 13:40 WBC (4.8-10.8) X10*3/uL RBC (4.20-5.50) X10*6/uL Hgb (12.0-16.0) g/dl Hct (37.0-47.0) % MCV (80.0-98.0) fL MCH (27.0-33.0) pg MCHC (31.0-35.0) g/dl RDW (11.0-16.0) % Plt Count (160-400) X10*3/uL MPV (9.4-12.3) fL Immature Gran % (Auto) (0.0-0.4) % Neut % (Auto) (45-73) % Lymph % (Auto) (20-40) % Beauregard % (Auto) (2-11) % Eos % (Auto) (0-4) % Baso % (Auto) (0-2) % Lymph # (Auto) (1.2-4.9) X10*3/uL Bea[place]gard # (Auto) (0.1-1.2) X10*3/uL Eos # (Auto) (0.0-0.4) X10*3/uL Baso # (Auto) (0.0-0.2) X10*3/uL Abs Immat Gran (auto) (0.00-0.03) X10*3/uL Absolute Neuts (auto) (2.0-8.3) x10*3/uL Absolute Nucleated RBC (0.0-0.012) X10*3/uL Nucleated RBC % (auto) (0.0-0.2) /100WBC VBG pH 7.23 L (7.32-7.43) VBG pCO2 18 mmHg VBG pO2 73 mmHg VBG HCO3 8 L (22-26) mmol/L VBG O2 Saturation 95.0 % VBG Base Excess -17.1 mmol/L Sodium (135-145) mmol/L Potassium (3.3-5.1) mmol/L Chloride (96-108) mmol/L Carbon Dioxide (22-29) mmol/L Anion Gap (12-20) BUN (9-16) mg/dL Creatinine (0.5-1.4) mg/dL Estim Creat Clear Calc Estimated GFR POC Glucose 312 H (60-115) mg/dL Random Glucose (60-115) mg/dL Lactic Acid (0.5-2.0) mmol/L Calcium (8.4-10.2) mg/dL Total Bilirubin (0.0-1.0) mg/dL AST (5-31) U/L ALT (0-31) U/L Alkaline Phosphatase (39-117) U/L Total Protein (6.5-8.0) g/dL Albumin (3.5-5.0) g/dL Beta-Hydroxybutyrate (0.02-0.27) mmol/L Independent Interpretation I performed an independent interpretation of an: Plain X-Ray Radiology Impression Discussion of test interpretation with radiology: I have reviewed the radiologist's reading. Critical Care Time Critical Care Time Critical Care Time: Yes Total Critical Care Time: 60 Attestation: The patient was critically ill with a high probability of imminent or life- threatening deterioration. I spent greater than 30 minutes of discontinuous time evaluating the patient, delivering critical care at the bedside, discussing evaluating data with consultants. Critical care time does not include time spent performing separately billable procedures or teaching. Time spent performing critical care was 60 minutes. Discharge Plan Discharge Clinical Impression: DKA (diabetic ketoacidosis) Patient Disposition: Admitted As Inpatient Print Language: [place]
[2025-03-11] MEDS: Insulin Regular, Human 100 UNIT/ML 10 ML VIAL IVPUSH (12:16)
[2025-03-11] MEDS: 0.9 % Sodium Chloride 1,000 ML 999 ML IV (12:17)
[2025-03-11 12:25] LABS: MANUAL DIFF FLAG NO
[2025-03-11 12:29] LABS: Basophils Percent Auto 0.3 % (0-2); Hemoglobin 10.5 g/dl (12.0-16.0); Imm Gran Abs Auto 0.06 X10*3/uL (0.00-0.03); Imm Gran Pct Auto 0.5 % (0.0-0.4); Lymphocytes Absolute Auto 0.5 X10*3/uL (1.2-4.9); Mean Corpuscular HGB Conc 30.9 g/dl (31.0-35.0); Mean Corpuscular Hemoglobin 25.9 pg (27.0-33.0); Mean Platelet Volume 11.2 fL (9.4-12.3); Monocytes Absolute Auto 0.7 X10*3/uL (0.1-1.2); Monocytes Percent Auto 6.1 % (2-11); Neutrophils Absolute Auto 10.6 x10*3/uL (2.0-8.3); Neutrophils Percent Auto 89.1 % (45-73); Platelet Count 305 X10*3/uL (160-400); Red Blood Count 4.05 X10*6/uL (4.20-5.50); Red Cell Distribution Width 17.2 % (11.0-16.0); White Blood Count 11.9 X10*3/uL (4.8-10.8)
--- OUTSIDE RECORDS SUMMARY | 2025-03-11 13:05 | XMS_ITS ---
Author Organization [facility] Address [address] [place] [address] Care Team Providers Care Election Assistant Name Role Phone Janes Foster MD Primary Care Provider Fernando Wall Unavailable [phone] REASON FOR VISIT cx 10/18 Encounters Encounter Location Date Provider Diagnosis [address] [address] 10/17/2024 Fernando Lim Plan Of Treatment No Information Progress Notes * TIFFANYYuli Lisa ADOB:[birth year] (89 yo F)Acc No.[id number]:10/17/2024 Patient:?Lisa HOLLIDAY :1935???Age:88 Y???Sex:Female Address: [address] [place], [address] * true * Date:? Generated for Printi jesus manuel/Jonnie/eTransmitting on:?03/11/2025 01:05 PM EDT
--- OUTSIDE RECORDS SUMMARY | 2025-03-11 13:05 | XMS_ITS | Encounter Summary ---
Author Organization [employer] Address [address] [place] [address] Care Team Providers Care Retail Account Representative Name Role Phone Keli Dickinson MD Primary Care Provider [phone] Encounter Details Date Type Department Care Team (Late st Contact Info) Description 02/23/2025 Lab Requisition [facility] - Main Lab [address] [place] [address] Keli Dickinson MD [address] [place] [address] Urgency of urination; Urinary tract infection, site not specified Social History Tobacco Use Types Packs/Day Years Used Date Smoking Tobacco: Never Assessed Comments Unknown Sex and Gender Information Value Date Recorded Sex Assigned at Not on file Legal Sex Female 8:53 AM EST Gender Identity Not on file Sexual Orientation Not on file documented as of this encounter Plan of Treatment Not on file documented as of this encounter Procedures Procedure Name Priority Date/Time Associated Diagnosis Comments URINALYSIS WITH REFLEX MICROSCOPIC AND CULTURE Routine 02/21/2025 10:30 PM EDT Urgency of urination Urinary tract infection, site not specified [place] URINE CULTURE TUBE Routine 02/21/2025 10:30 PM EDT Urgency of urination Urinary tract infection, site not specified URINALYSIS WITH REFLEX MICROSCOPIC AND CULTURE Routine 02/21/2025 10:30 PM EDT Urgency of urination Urinary tract infection, site not specified CULTURE URINE Routine 02/21/2025 10:30 PM EDT Urgency of urination Urinary tract infection, site not specified documented in this encounter Results * (ABNORMAL) Culture urine (02/21/2025 10:30 PM EDT) [facility] Signature Culture, Urine >100,000 CFU/mL Proteus mirabilis(A ) EMMY 02/25/2025 10:20 AM EDT [facility] Comment: Edited result: Previously reported as Proteus species on 02/24/2025 at 1034 EDT. Urine Urine specimen from urethra / Unknown Non-blood Collection / Unknown 02/21/2025 10:30 PM EDT 02/23/2025 11:46 AM EDT Narrative [facility] - 02/25/2025 10:20 AM EDT Additional colony types present in insignificant amounts. Organism Antibiotic Method Susceptibility Proteus mirabilis Amoxicillin/Clavulanate EMMY <=2 ug/ml: Susceptible Proteus mirabilis Ampicillin/Sulbactam EMMY <=2 ug/ml: Susceptible Proteus mirabilis Piperacillin/Tazobactam EMMY <=4 ug/ml: Susceptible Proteus mirabilis Cefazolin (Urine) EMMY 4 ug/ml: Susceptible Proteus mirabilis Cefoxitin EMMY <=4 ug/ml: Susceptible Proteus mirabilis Ceftazidime EMMY <=0.5 ug/ml: Susceptible Proteus mirabilis Ceftriaxone EMMY <=0.25 ug/ml: Susceptible Proteus mirabilis Cefepime EMMY <=0.12 ug/ml: Susceptible Proteus mirabilis Meropenem EMMY <=0.25 ug/ml: Susceptible Proteus mirabilis Amikacin EMMY <=1 ug/ml: Susceptible Proteus mirabilis Gentamicin EMMY <=1 ug/ml: Susceptible Proteus mirabilis Ciprofloxacin EMMY <=0.06 ug/ml: Susceptible Proteus mirabilis Levofloxacin EMMY <=0.12 ug/ml: Susceptible Proteus mirabilis Nitrofurantoin EMMY 32 ug/ml: Resistant Proteus mirabilis Trimethoprim/Sulfamethoxazole EMMY <=20 ug/ml: Susceptible us Keli Dickinson MD LAB MICROBIOLOGY - GENERAL ORDER BOBBY Final Result [facility] [address] [place] [address], [place] [phone] * (ABNORMAL) Urinalysis with reflex microscopic and culture (02/21/2025 10:30 PM EDT) Specific [place] Urine 1.029 1.003 - 1.030 LAB URINALYSIS - AUTOMATED METHOD 02/23/2025 11:46 AM [facility] pH, Urine >=9.0(A) 5.0 - 8.0 pH LAB URINALYSIS - AUTOMATED METHOD 02/23/2025 11:46 AM [facility] Leukocytes, Urine Large(A) Negative LAB URINALYSIS - AUTOMATED METHOD 02/23/2025 11:46 AM [facility] Nitrite, Urine Positive(A) Negative LAB URINALYSIS - AUTOMATED METHOD 02/23/2025 11:46 AM [facility] Protein, Urine >=1000(A) <=Trace mg/dL LAB URINALYSIS - AUTOMATED METHOD 02/23/2025 11:46 AM [facility] Glucose, Urine 250(A) Negative mg/dL LAB URINALYSIS - AUTOMATED METHOD 02/23/2025 11:46 AM [facility] Ketones, Urine Negative Negative mg/dL LAB URINALYSIS - AUTOMATED METHOD 02/23/2025 11:46 AM [facility] Urobilinogen , Urine 1.0 0.2 - 1.0 mg/dL LAB URINALYSIS - AUTOMATED METHOD 02/23/2025 11:46 AM [facility] Bilirubin, Urine Negative Negative LAB URINALYSIS - AUTOMATED METHOD 02/23/2025 11:46 AM [facility] Blood, Urine Negative Negative LAB URINALYSIS - AUTOMATED METHOD 02/23/2025 11:46 AM [facility] RBC, Urine 4.0 0 - 4 /HPF LAB URINALYSIS - AUTOMATED METHOD 02/23/2025 11:46 AM [facility] WBC, Urine 13.8(H) 0 - 4 /HPF LAB URINALYSIS - AUTOMATED METHOD 02/23/2025 11:46 AM EDT [facility] Squamous Epithelial, Urine >100(H) 0 - 60 /LPF LAB URINALYSIS - AUTOMATED METHOD 02/23/2025 11:46 AM EDT [facility] Crystals, Urine HEAVY TRIPLE PHOS /LPF LAB URINALYSIS - AUTOMATED METHOD 02/23/2025 11:46 AM EDT [facility] Bacteria, Urine Many(A) Negative /HPF LAB URINALYSIS - AUTOMATED METHOD 02/23/2025 11:46 AM EDT [facility] Hyaline Casts, Urine 15.0(H) 0 - 3 /LPF LAB URINALYSIS - AUTOMATED METHOD 02/23/2025 11:46 AM EDT [facility] Urine Urine specimen from urethra / Unknown Non-blood Collection / Unknown 02/21/2025 10:30 PM EDT 02/23/2025 11:14 AM EDT us Keli Dickinson MD LAB URINE ORDERABLES Final Resul t Performing Organization Address City/[facility] [place] [facility]/ZIP Co de Phone Number [facility] [address] [place] [address], [place] [phone] * [place] urine culture tube (02/21/2025 10:30 PM EDT) Extra Tube Hold for add-ons. 02/23/2025 1:02 PM EDT [facility] Comment:Auto resulted. 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
--- OUTSIDE RECORDS SUMMARY | 2025-03-11 13:05 | XMS_ITS | Encounter Summary ---
Author Organization [facility] Address [address] [place] [address] Care Team Providers Care Spool Cleaner Hand Name Role Phone Keli Dickinson MD Primary Care Provider [phone] Encounter Details Date Type Department Care Team (Late st Contact Info) Description 01/28/2025 Lab Requisition [facility] [address] [place] [address] Keli Dickinson MD [address] [place] [address] Anemia, unspecified Social History Tobacco Use Types Packs/Day Years [...] Procedure Name Priority Date/Time Associated Diagnosis Comments D-DIMER Routine 01/28/2025 3:28 PM EDT Anemia, unspecified COMPLETE BLOOD COUNT Routine 01/28/2025 3:28 PM EDT Anemia, unspecified COMPREHENSIVE METABOLIC PANEL Routine 01/28/2025 3:28 PM EDT Anemia, unspecified documented in this encounter Results * (ABNORMAL) D-Dimer (01/28/2025 3:28 PM EDT) D-Dimer, Quant (D-DU) 451(H) <=230 ng/mL DDU LAB COAGULATION METHOD 01/28/2025 4:10 PM EDT [facility] ([facility]) [facility] Blood Venous blood specimen / Unknown Venipuncture / Unknown 01/28/2025 3:28 PM EDT 01/28/2025 3:54 PM EDT Narrative [facility] - 01/28/2025 4:10 PM EDT D-Dimer <230 ng/mL (D-Dimer units) is the threshold for exclusion of DVT/PE. D-Dimer may be elevated in: Critically ill, severely infected, trauma patients, DIC, acute CVA, acute WA, unstable angina, AF, old age, , and smoking. D-Dimer may be decreased with: Initiation of heparin therapy and oral anticoagulants. us Keli Dickinson MD LAB BLOOD ORDERABLES Final Resul t [facility] [address] [place] [address], * (ABNORMAL) Comprehensive metabolic panel (01/28/2025 3:28 PM EDT) Sodium 135 133 - 145 mmol/L LAB [facility] Potassium 4.2 3.5 - 5.5 mmol/L LAB CHEMISTRY METHOD 01/28/2025 4:30 PM [facility] Chloride 101 96 - 110 mmol/L LAB CHEMISTRY METHOD 01/28/2025 4:30 PM [facility] CO2 27 21 - 32 mmol/L LAB CHEMISTRY METHOD 01/28/2025 4:30 PM [facility] Anion Gap 7 3 - 11 LAB CHEMISTRY METHOD 01/28/2025 4:30 PM [facility] Glucose 338(H) 70 - 100 mg/dL LAB CHEMISTRY METHOD 01/28/2025 4:30 PM [facility] BUN 15 5 - 25 mg/dL LAB CHEMISTRY METHOD 01/28/2025 4:30 PM [facility] Creatinine 0.87 0.50 - 1.10 mg/dL LAB CHEMISTRY METHOD 01/28/2025 4:30 PM EDT [facility] eGFR 64 >=60 mL/min/1. 73m2 LAB CHEMISTRY METHOD 01/28/2025 4:30 PM EDT [facility] Comment:Calculation based on the??Chronic Kidney Disease Epidemiology Collaboration (CKD-EPI) equation refit??without adjustment for race. BUN/Creatinine Ratio 17.2 LAB CHEMISTRY METHOD 01/28/2025 4:30 PM EDT [facility] Calcium 8.7 8.5 - 10.5 mg/dL LAB CHEMISTRY METHOD 01/28/2025 4:30 PM T [facility] AST (SGOT) 14 10 - 42 unit/L LAB CHEMISTRY METHOD 01/28/2025 4:30 PM [facility] ALT (SGPT) 13 10 - 60 unit/L LAB CHEMISTRY METHOD 01/28/2025 4:30 PM [facility] Alkaline Phosphatase 95 42 - 121 unit/L LAB CHEMISTRY METHOD 01/28/2025 4:30 PM EDT [facility] Total Protein 5.7(L) 6.0 - 8.0 g/dL LAB CHEMISTRY METHOD 01/28/2025 4:30 PM [facility] Albumin 2.8(L) 3.2 - 5.0 g/dL LAB CHEMISTRY METHOD 01/28/2025 4:30 PM [facility] Total Bilirubin 0.4 0.0 - 1.4 mg/dL LAB CHEMISTRY METHOD 01/28/2025 4:30 PM [facility] Blood Venous blood specimen / Unknown Venipuncture / Unknown 01/28/2025 3:28 PM EDT 01/28/2025 3:54 PM EDT us Keli Dickinson MD LAB BLOOD ORDERABLES Final Resul t [facility] [address] [place] [address], * (ABNORMAL) Complete blood count (01/28/2025 3:28 PM EDT) [facility] WBC 7.9 4.8 - 10.8 K/mcL LAB HEMETOLOGY METHOD 01/28/2025 4:06 PM [facility] RBC 4.20 3.80 - 4.80 M/mcL LAB HEMETOLOGY METHOD 01/28/2025 4:06 PM [facility] Hemoglobin 10.5(L) 11.5 - 16.0 g/dL LAB HEMETOLOGY METHOD 01/28/2025 4:06 PM [facility] Hematocrit 33.2(L) 35.0 - 47.0 % LAB HEMETOLOGY METHOD 01/28/2025 4:06 PM [facility] MCV 79.6 79.0 - 98.0 FL LAB HEMETOLOGY METHOD 01/28/2025 4:06 PM [facility] MCH 25.2(L) 27.0 - 32.0 pcg LAB HEMETOLOGY METHOD 01/28/2025 4:06 PM [facility] MCHC 31.6(L) 32.0 - 37.0 g/dL LAB HEMETOLOGY METHOD 01/28/2025 4:06 PM [facility] RDW 15.2(H) 11.0 - 15.0 % LAB HEMETOLOGY METHOD 01/28/2025 4:06 PM [facility] Platelets 233 130 - 400 K/mcL LAB HEMETOLOGY METHOD 01/28/2025 4:06 PM [facility] MPV 11.1(H) 7.0 - 11.0 FL LAB HEMETOLOGY METHOD 01/28/2025 4:06 PM [facility] NRBC 0.0 <1.0 % LAB HEMETOLOGY METHOD 01/28/2025 4:06 PM EDT [facility] NRBC Absolute 0.00 <0.10 K/mcL LAB HEMETOLOGY METHOD 01/28/2025 4:06 PM EDT [facility] Blood Venous blood specimen / Unknown Venipuncture / Unknown 01/28/2025 3:28 PM EDT 01/28/2025 3:54 PM EDT us Keli Dickinson MD LAB BLOOD ORDERABLES Final Resul t [facility] [address] [place] [address], documented in this encounter Visit Diagnoses Diagnosis Anemia, unspecified documented in this encounter 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
--- OUTSIDE RECORDS SUMMARY | 2025-03-11 13:05 | XMS_ITS | Patient Health Record ---
Author Organization [facility] Address [address] [place] [address] Care Team Providers Care Metal Hardener Name Role Phone Janes Foster MD Primary Care Provider Fernando Wall Unavailable [phone] Allergies Allergen (clinical drug ingredient) Drug/Non Drug [...] Problem Acquired hammer toe of right foot (4601264763922412 ) Other hammer toe(s) (acquired), right foot (M20.41) Active confirmed Response to treatment, Improvemen t Problem Acquired hammer toe of left foot (8644865450571864 ) Other hammer toe(s) (acquired), left foot (M20.42) Active confirmed Response to treatment, Improvemen t Problem Polyneuropathy due to diabetes mellitus type I (401780805) 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 Vital Signs Blood pressure diastolic 68 mm Hg 07/15/2024 Height 5 ft 6 in in 07/15/2024 Blood pressure systolic 128 mm Hg 07/15/2024 Weight 175 lbs 07/15/2024 BMI 28.24 kg/m2 07/15/2024 Procedures Procedure Date Ordered Date Performed Result Body Sit e 88273-VWCIFWQ NAIL, 6 OR MORE 05/03/2024 N/A 71753-Yeygsuvl Plate 05/03/2024 N/A 45601-ZTBQ SKIN LESIONS, OVER 4 05/03/2024 N/A 43422-MENIQHY NAIL, 6 OR MORE 07/15/2024 N/A 68674-Rlzqjjrl Plate 07/15/2024 N/A 81740-TLTR SKIN LESIONS, OVER 4 07/15/2024 N/A Encounters Encounter Location Date Provider Diagnosis [facility] [address] [address] 05/03/2024 Fernando Lim Type 1 diabetes mellitus with diabetic polyneuropathy E10.42 ; Tinea unguium B35.1 and Ingrown nail L60.0 [facility] [address] [address] 07/15/2024 Fernando Lim Type 1 diabetes mellitus with diabetic polyneuropathy E10.42 ; Tinea unguium B35.1 and Ingrown nail L60.0 [facility] [place] [address] [place] [address] 10/17/2024 Fernando Lim Assessments Encounter Date Diagnosis (ICD Code) Assessment Notes Treatment Notes Treatment Clinical Notes Section Notes 05/03/2024 Type 1 diabetes mellitus with diabetic polyneuropathy (ICD-10 - E10.42) 05/03/2024 Tinea unguium (ICD-10 - B35.1) 07/15/2024 Type 1 diabetes mellitus with diabetic polyneuropathy (ICD-10 - E10.42) 07/15/2024 Tinea unguium (ICD-10 - B35.1) 07/15/2024 Ingrown nail (ICD-10 - L60.0) 05/03/2024 Ingrown nail (ICD-10 - L60.0) Plan Of Treatment Pending Test Test Name Order Date Hemoglobin A1c 11/30/2015 65383-GDXQTVT NAIL, 6 OR MORE 02/01/2016 06172-HUIPEKM NAIL, 6 OR MORE 04/08/2016 49431-ZUILIVN NAIL, 6 OR MORE 07/08/2016 40102-LWALEAG NAIL, 6 OR MORE 09/16/2016 89844-XWPJKZP NAIL, 6 OR MORE 08/21/2015 86187-QGIYKIL NAIL, 6 OR MORE 11/30/2015 63301-EPFJYXM NAIL, 6 OR MORE 08/25/2014 74979-JDJJBJD NAIL, 6 OR MORE 10/27/2014 20009-ZANTRKO NAIL, 6 OR MORE 01/12/2015 00751-ALMNIBE NAIL, 6 OR MORE 03/16/2015 69772-PWRQSGV NAIL, 6 OR MORE 05/25/2015 38450-RHZMQPN NAIL, 6 OR MORE 06/18/2012 01269-JDVKJSM NAIL, 6 OR MORE 08/27/2012 49079-QMXCRXP NAIL, 6 OR MORE 01/04/2013 22096-PRDGUAN NAIL, 6 OR MORE 03/25/2013 70205-EAWDJCE NAIL, 6 OR MORE 06/17/2013 31332-EUPBBPR NAIL, 6 OR MORE 08/26/2013 27964-OCTRNEL NAIL, 6 OR MORE 12/02/2013 46347-EQVQJQL NAIL, 6 OR MORE 02/10/2014 02934-SEISUZR NAIL, 6 OR MORE 06/06/2014 59434-YOXHMZR NAIL, 6 OR MORE 12/19/2016 87379-GZGNBLZ NAIL, 6 OR MORE 04/03/2017 04351-NSOERGN NAIL, 6 OR MORE 06/05/2017 38299-ZJEACJQ NAIL, 6 OR MORE 08/14/2017 71289-JDXSPSK NAIL, 6 OR MORE 10/23/2017 27612-BEHBRLX NAIL, 6 OR MORE 01/01/2018 47252-AWJHOFQ NAIL, 6 OR MORE 05/11/2018 94925-FSGGSIN NAIL, 6 OR MORE 07/27/2018 89793-LXIKYSX NAIL, 6 OR MORE 10/12/2018 95635-QJCLSHK NAIL, 6 OR MORE 01/14/2019 97108-QCMKMBX NAIL, 6 OR MORE 04/08/2019 82015-QBFEINS NAIL, 6 OR MORE 08/16/2019 20848-BOEHVYC NAIL, 6 OR MORE 10/25/2019 85391-UEBABKS NAIL, 6 OR MORE 01/03/2020 97162-ZBXFGKV NAIL, 6 OR MORE 05/01/2020 78110-XXEHRLF NAIL, 6 OR MORE 08/17/2020 51786-UNEHWJS NAIL, 6 OR MORE 10/30/2020 20967-FAWGQRC NAIL, 6 OR MORE 01/01/2021 49147-YPQLWYF NAIL, 6 OR MORE 03/29/2021 24850-JPXCWLJ NAIL, 6 OR MORE 06/14/2021 07735-EDTDZIS NAIL, 6 OR MORE 11/29/2021 90594-TUXBSGT NAIL, 6 OR MORE 02/11/2022 80314-ACRFDZD NAIL, 6 OR MORE 06/10/2022 37243-PBLPHXG NAIL, 6 OR MORE 09/13/2021 78394-PQCNQXW NAIL, 6 OR MORE 08/22/2022 20760-QLVJRMG NAIL, 6 OR MORE 10/31/2022 78968-DRMCPOQ NAIL, 6 OR MORE 01/09/2023 41618-NYSGTOO NAIL, 6 OR MORE 03/24/2023 76502-LKBTWCC NAIL, 6 OR MORE 06/05/2023 71246-VUJNCTF NAIL, 6 OR MORE 09/29/2023 20333-YHOUUSC NAIL, 6 OR MORE 02/19/2024 25293-LGPCYHR NAIL, 6 OR MORE 05/03/2024 85447-GBQRBVU NAIL, 6 OR MORE 07/15/2024 50220-Qzdqgicd Plate 07/15/2024 53587-Juydvzfh Plate 09/29/2023 28878-Fllwhqyh Plate 05/03/2024 76112-Yscgphhb Plate 02/19/2024 38128-Wfbhcddb Plate 06/05/2023 62157-Inyjmmkt Plate 10/30/2020 17643-Jqybbpat Plate 03/24/2023 73928-Tmmcwndx Plate 08/22/2022 54344-Jlgktdsb Plate 09/13/2021 89717-Mbvbhlwl Plate 06/10/2022 34357-Prhhyoen Plate 02/11/2022 26231-Eyzvxofd Plate 11/29/2021 23941-Uxzdvgsn Plate 06/14/2021 26573-Opdqevmt Plate 03/29/2021 74757-Hgcbbpcd Plate 05/01/2020 96349-Lwmrtlcx Plate 06/06/2014 74790-Dlibauol Plate 02/10/2014 32180-Ckjwbcou Plate 12/02/2013 58864-Xhztrxcr Plate 05/25/2015 95508-Oitkunnu Plate 03/16/2015 80202-Ilxtuuxh Plate 01/12/2015 46283-Rmjtlumv Plate 01/04/2013 46488-Mkeafwzo Plate 08/21/2015 04796-Hzzjxlvj Plate 11/30/2015 83215-Rvzftozg Plate Each Additional 73571-Kwzzbkox Plate Each Additional 66268-Esuncwyf Plate Each Additional 11/2014 59188-Titmuvpr Plate Each Additional 08/2015 88077-Nsutgail Plate Each Additional 79681-Ofsejndz Plate Each Additional 59914-Segmojjg Plate Each Additional 27541-Yuampous Plate Each Additional 77153-Tjtipzlk Plate Each Additional 51939-Jweyduzf Plate Each Additional 02526-Esassvnh Plate Each Additional 85349-Bikzobtj Plate Each Additional 05468 I&D ABSCESS- SIMPLE,SINGLE 015 22409-NSQW SKIN LESIONS, OVER 4 06/10/20 55324-ULFB SKIN LESIONS, OVER 4 08/22/20 38698-VLNY SKIN LESIONS, OVER 4 03/24/20 46305-CXZN SKIN LESIONS, OVER 4 01/09/20 32557-DZME SKIN LESIONS, OVER 4 10/31/20 87920-DUTU SKIN LESIONS, OVER 4 02/12/20 03517-TLRW SKIN LESIONS, OVER 4 06/05/20 44427-EZYP SKIN LESIONS, OVER 4 09/29/20 05110-JVJK SKIN LESIONS, OVER 4 02/19/20 31297-CRCU SKIN LESIONS, OVER 4 05/03/20 54583-GEKX SKIN LESIONS, OVER 4 07/15/20 66820-JVQY SKIN LESIONS, 2 TO 4 11/29/19 52622-EEKT SKIN LESIONS, 2 TO 4 03/29/20 35689-UTDK SKIN LESIONS, 2 TO 4 01/01/20 85970-DZJQ SKIN LESIONS, 2 TO 4 06/14/20 32997-ZVDA SKIN LESIONS, 2 TO 4 09/13/20 11601-ITCG SKIN LESIONS, 2 TO 4 05/01/20 08535-LNDK SKIN LESIONS, 2 TO 4 01/03/20 91330-DVUD SKIN LESIONS, 2 TO 4 10/30/20 02773-SVSG SKIN LESIONS, 2 TO 4 08/17/20 64723-UMPP SKIN LESIONS, 2 TO 4 10/25/20 22511-UYKX SKIN LESIONS, 2 TO 4 08/16/20 90707-ZALQ SKIN LESIONS, 2 TO 4 04/08/20 19 91329-XKSM SKIN LESIONS, 2 TO 4 01/15/20 19 57461-CSSZ SKIN LESIONS, 2 TO 4 10/12/20 18 00422-WBVE SKIN LESIONS, 2 TO 4 07/27/20 18 52650-JBKT SKIN LESIONS, 2 TO 4 05/11/20 50402-RASY SKIN LESIONS, 2 TO 4 01/01/20 64736-TUVZ SKIN LESIONS, 2 TO 4 10/23/20 93349-CQSY SKIN LESIONS, 2 TO 4 08/14/20 96231-BUNS SKIN LESIONS, 2 TO 4 06/05/20 10727-MLYZ SKIN LESIONS, 2 TO 4 12/19/19 17 94456-OPWZ SKIN LESIONS, 2 TO 4 04/03/20 17 16761-XVKL SKIN LESIONS, 2 TO 4 08/21/20 15 33239-ACLJ SKIN LESIONS, 2 TO 4 11/30/19 16 32441-JRXH SKIN LESIONS, 2 TO 4 09/16/20 16 93290-TSYI SKIN LESIONS, 2 TO 4 07/08/20 16 56847-KSZZ SKIN LESIONS, 2 TO 4 04/08/20 16 82908-JLIX SKIN LESIONS, 2 TO 4 02/01/20 16 68311-KXEV SKIN LESIONS, 2 TO 4 05/25/20 15 28018-UPCB SKIN LESIONS, 2 TO 4 03/16/20 15 44013-PFTQ SKIN LESIONS, 2 TO 4 01/12/20 15 91765-JIHF SKIN LESIONS, 2 TO 4 10/27/20 14 07592-WDVT SKIN LESIONS, 2 TO 4 08/25/20 14 76110-UVAN SKIN LESIONS, 2 TO 4 06/18/20 12 52640-OXYY SKIN LESIONS, 2 TO 4 03/25/20 13 45661-VAMW SKIN LESIONS, 2 TO 4 01/04/20 13 74311-ZYCS SKIN LESIONS, 2 TO 4 08/27/20 12 71482-WILY SKIN LESIONS, 2 TO 4 07/25/20 11 22168-XGRO SKIN LESIONS, 2 TO 4 10/03/20 11 27681-YRAI SKIN LESIONS, 2 TO 4 12/23/19 12 93317-LYDF SKIN LESIONS, 2 TO 4 03/19/20 12 12419-JMJO SKIN LESIONS, 2 TO 4 06/06/20 14 71455-ZAEE SKIN LESIONS, 2 TO 4 02/11/20 14 48733-RAJF SKIN LESIONS, 2 TO 4 12/02/19 14 40499-SKXJ SKIN LESIONS, 2 TO 4 08/26/20 13 87503-BFSM SKIN LESIONS, 2 TO 4 06/17/20 13 M4454-GGQGUBLC DYSTROPHIC NAILS ANY # I4614-VAZCBDZL DYSTROPHIC NAILS ANY # L8293-KVVWQNLR DYSTROPHIC NAILS ANY # P8979-YXLIJHOI DYSTROPHIC NAILS ANY # Insurance Providers Payer Name Payer Address Payer Phone Subscriber Number Group Number Insured Name Patient Relationship to Insured Coverage Start Date Coverage End Date Medicare [employer] [address] [place] [address] [id number] Lisa Holliday Self - patient is the insured [facility] [address] [facility] [place], [place] [address] [phone] [id number] Lisa Holliday Self - patient is the [...] replacement Surgery 03/31 Hospitalization History Reason Date(Month/Year) [facility] - BP was Low / Heart blockage few hrs 11/2022 Vertigo 07/2012 Vertigo. 10/2011
--- OUTSIDE RECORDS SUMMARY | 2025-03-11 13:05 | XMS_ITS | Encounter Summary ---
Author Organization [facility] Address [address] [place] [address] Care Team Providers Care [employer] Name Role Phone Keli Dickinson MD Primary Care Provider [phone] Encounter Details Date Type Department Care Team (Late st Contact Info) Description 01/26/2025 Lab Requisition [facility] [address] [place] [address] Keli Dickinson MD [address] [place] [address] Urinary tract infection, site not specified Social [...] Associated Diagnosis Comments URINALYSIS WITH REFLEX MICROSCOPIC Routine 01/25/2025 11:15 PM EDT Urinary tract infection, site not specified URINALYSIS WITH REFLEX MICROSCOPIC Routine 01/25/2025 11:15 PM EDT Urinary tract infection, site not specified CULTURE URINE Routine 01/25/2025 11:15 PM EDT Urinary tract infection, site not specified documented in this encounter Results * (ABNORMAL) Urinalysis with reflex microscopic (01/25/2025 11:15 PM EDT) Specific [place] Urine 1.037(H) 1.003 - 1.030 LAB URINALYSIS - AUTOMATED METHOD 01/26/2025 11:03 AM EDT [facility] pH, Urine 5.5 5.0 - 8.0 pH LAB URINALYSIS - AUTOMATED METHOD 01/26/2025 11:03 AM [facility] Leukocytes, Urine Moderate(A) Negative LAB URINALYSIS - AUTOMATED METHOD 01/26/2025 11:03 AM [facility] Nitrite, Urine Negative Negative LAB URINALYSIS - AUTOMATED METHOD 01/26/2025 11:03 AM [facility] Protein, Urine 30(A) <=Trace mg/dL LAB URINALYSIS - AUTOMATED METHOD 01/26/2025 11:03 AM [facility] Glucose, Urine >=1000(A) Negative mg/dL LAB URINALYSIS - AUTOMATED METHOD 01/26/2025 11:03 AM [facility] Ketones, Urine Trace(A) Negative mg/dL LAB URINALYSIS - AUTOMATED METHOD 01/26/2025 11:03 AM [facility] Urobilinogen , Urine 0.2 0.2 - 1.0 mg/dL LAB URINALYSIS - AUTOMATED METHOD 01/26/2025 11:03 AM [facility] Bilirubin, Urine Negative Negative LAB URINALYSIS - AUTOMATED METHOD 01/26/2025 11:03 AM [facility] Blood, Urine Moderate(A) Negative LAB URINALYSIS - AUTOMATED METHOD 01/26/2025 11:03 AM [facility] RBC, Urine 10.0(H) 0 - 4 /HPF LAB URINALYSIS - AUTOMATED METHOD 01/26/2025 11:03 AM [facility] WBC, Urine 1,135.8(H) 0 - 4 /HPF LAB URINALYSIS - AUTOMATED METHOD 01/26/2025 11:03 AM [facility] Squamous Epithelial, Urine >100(H) 0 - 60 /LPF LAB URINALYSIS - AUTOMATED METHOD 01/26/2025 11:03 AM [facility] Bacteria, Urine Few(A) Negative /HPF LAB URINALYSIS - AUTOMATED METHOD 01/26/2025 11:03 AM EDT [facility] Hyaline Casts, Urine 3.0 0 - 3 /LPF LAB URINALYSIS - AUTOMATED METHOD 01/26/2025 11:03 AM EDT [facility] Yeast, Urine Present(A) None /HPF LAB URINALYSIS - AUTOMATED METHOD 01/26/2025 11:03 AM EDT [facility] Urine Urinary bladder structure / Unknown Non-blood Collection / Unknown 01/25/2025 11:15 PM EDT 01/26/2025 9:48 AM EDT us Keli Dickinson MD LAB URINE ORDERABLES Final Resul t [facility] [address] [place] [address], * (ABNORMAL) Culture urine (01/25/2025 11:15 PM EDT) Culture, Urine 10,000-49,000 CFU/mL Klebsiella pneumoniae(A) EMMY 02/01/2025 7:42 AM EDT [facility] Comment: This is an edited result. Previous organism was Gram negative bacilli on 01/30/2025 at 1329 EDT. Culture, Urine 10,000-49,000 CFU/mL Vancomycin resistant Enterococcus faecium(A) EMMY 02/01/2025 7:42 AM EDT [facility] Comment: The organism value for this result has been updated. These results have been appended to the previously preliminary verified report. Edited result: Previously reported as Enterococcus species on 01/28/2025 at 1125 EDT. Culture, Urine 10,000-49,000 CFU/mL Nelia albicans/dave iensis(A) EMMY 02/01/2025 7:42 AM EDT [facility] Comment: The organism value for this result has been updated. These results have been appended to the previously preliminary verified report. Urine Urinary bladder structure / Unknown Non-blood Collection / Unknown 01/25/2025 11:15 PM EDT 01/26/2025 9:48 AM EDT Narrative Organism Antibiotic Method Susceptibility Klebsiella pneumoniae Amikacin DISK DIFFUSION Susceptible Klebsiella pneumoniae Amoxicillin/Clavulanate DISK DIF FUSION Susceptible Klebsiella pneumoniae Ampicillin/Sulbactam DISK DIFFUS ION Intermediate Klebsiella pneumoniae Cefazolin DISK DIFFUSION Susceptible Klebsiella pneumoniae Cefepime DISK DIFFUSION Susceptible Klebsiella pneumoniae Cefoxitin DISK DIFFUSION Susceptible Klebsiella pneumoniae Ceftazidime DISK DIFFUSION Susceptible Klebsiella pneumoniae Ceftriaxone DISK DIFFUSION Susceptible Klebsiella pneumoniae Ciprofloxacin DISK DIFFUSION Intermediate Klebsiella pneumoniae Gentamicin DISK DIFFUSION Susceptible Klebsiella pneumoniae Levofloxacin DISK DIFFUSION Susceptible Klebsiella pneumoniae Meropenem DISK DIFFUSION Susceptible Klebsiella pneumoniae Nitrofurantoin DISK DIFFUSION Intermediate Klebsiella pneumoniae Piperacillin/Tazobactam DISK DIF FUSION Susceptible-dose dependent Klebsiella pneumoniae Trimethoprim/Sulfa methoxa zole DISK DIFFUSION Susceptible Comment:This is an a ppended report. These results have been appended to a previously preliminary verified report. Vancomycin resistant Enterococcus faecium Benzylpenicillin EMMY >=64 ug/ml: Resistant Vancomycin resistant Enterococcus faecium Ampicillin EMMY >=32 ug/ml: Resistant Vancomycin resistant Enterococcus faecium Ciprofloxacin EMMY >=8 ug/ml: Resistant Vancomycin resistant Enterococcus faecium Levofloxacin EMMY >=8 ug/ml: Resistant Vancomycin resistant Enterococcus faecium Quinupristin/Dalfopristin EMMY 1 ug/ml: Susceptible Vancomycin resistant Enterococcus faecium Linezolid EMMY 2 ug/ml: Susceptible Vancomycin resistant Enterococcus faecium Vancomycin EMMY >=32 ug/ml: Resistant Vancomycin resistant Enterococcus faecium Tetracycline EMMY >=16 ug/ml: Resistant Vancomycin resistant Enterococcus faecium Nitrofurantoin EMMY 256 ug/ml: Resistant Keli Dickinson MD LAB MICROBIOLOGY - GENERAL ORDER BOBBY Final Result [facility] [address] [place] [address], documented in this encounter Visit Diagnoses Diagnosis Urinary tract infection, site not specified documented in this encounter 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
--- OUTSIDE RECORDS SUMMARY | 2025-03-11 13:05 | XMS_ITS ---
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 Name Role Phone Nitesh Chirinos Unavailable Unavailable Janes Varma Unavailable Unavailable Naveen Hadley Unavailable Unavailable April Cordon Unavailable Unav ailable Paul Reyna Unavailable Unavailable DickinsonKeli guerra Consolata Unavailable Unavailabl Jordana Lamas Unavailable Unavailable Alden, Kamilah Unavailable Unavailable Allergies and adverse reactions No Known Allergies Care Team Name Role Address Phone Organization Dates Nitesh Chirinos Attending Physician [address] [facility], [place], [address], [place] (Office): : [facility] 11/18/2024 - 03/08/2025 Janes Varma Attending Physician [address], [place], [id number], [facility] (Office): : : [facility] 11/18/2024 - 03/08/2025 Naveen Hadley Attending Physician [address] [place] [address], [id number], [facility] (Office): : : [facility] 11/18/2024 - 03/08/2025 April Cordon Attending Physician [address] [place] [address], [id number], [place] (Office): : : [facility] 11/18/2024 - 03/08/2025 Paul Reyna Attending Physician [address] [place] [address], [place], [address], [facility] (Office): : : [facility] 11/18/2024 - 03/08/2025 Keli Dickinson Attending Physician [address] [place] [address], [place], [address], [place] (Office): : : [facility] 11/18/2024 - 03/08/2025 Jordana Webb Attending Physician [address] [place] [address], [place], [address], [place] (Office): : : [facility] 11/18/2024 - 03/08/2025 Kamilah Ruano Attending Physician [address] [place], [address], [place] (Office): : [facility] 11/18/2024 - 03/08/2025 Imaging Narrative Note Date Imaging Narrative No te 02/07/2025 EKG W/ INTERPRETATIO NFINDINGS: Sinus bradycardia at 50 bpm Left bundle branch block. Abnormal ECG. Intervals:ELECTRONICALLY SIGNED BY RYAN RIVAS M.D. 02/07/2025 2:17:02 PM EDT.Reason for Study: R55 SYNCOPE AND COLLAPSEPrincipal Result Auditor Supervisor: RYAN RIVAS ([id number])Bill Distributor: MARIYA JONES (DSEXTON)Latex Caster Bill Distributor: SARAN Ramirez Section Description Status Target Date Lisa will be able to safe ly transfer to and from a bed to a chair (or wheelchair) with assistance of one x 90 days Active 05/03/2025 Lisa will be free of all signs and symptoms of hypo/hyperglycemia such as: sweating, trembling, thirst, fatigue, weakness, blurred vision x _90 days. Active 05/03/2025 Lisa will express satisfa ction that her daily routines and preferences are accommodated by staff. Active 05/03/2025 Lisa will have no falls with injury x _90 day s. Active 05/03/2025 Lisa will not exhibit sig ns/symptoms of b leeding x 90days. Active 05/03/2025 Lisa will remain free of injury x 90 days Act marquise 05/03/2025 Lisa's ADL care needs jose l be anticipated and met throughout the next review period. Active 05/03/2025 Brigette will have an ongoing discharge plan that provides for a safe and effective discharge. Active 05/03/2025 Brigette's wishes as expressed in Advance Directive will be followed Active 05/03/2025 Maintenance Goal: Wound will remain free from signs and symptoms of infection x 90 days Active 05/03/2025 Patient will demonstrate increased ability to un derstand others Active 05/03/2025 Patient will not exhibit non-verbal indicators o f pain x 90days. Active 05/03/2025 Resident will demonstrate im proved urinary elimination control as evidenced by experiencing less than 3 episodes of urinary incontinence per day. Active 05/03/2025 Will have meal intakes >75% at most meals through next review. W ill tolerate diet without difficulty through next review. W ill have stable weight without significant change through next review. W ill maintain adequate hydration through next review. W ill have no s/sx hypo/hyperglycemia through next review. Active 05/03/2025 Functional Status Code Name Recorded Time Value Entered By Chair/yiv-th-wdkbz transfer 03/08/2025 Setup or margie n-up assistance ENIEVESGARCIA1 Eating 03/08/2025 Not assessed ENIEVESGARCIA1 Feeding or Eating 03/08/2025 Not assessed ENIEVESGAR CIA1 Indicate the type of wheelchair or scooter used 03/08/2025 Independent ENIEVESGARCIA 1 Indicate the type of wheelchair or scooter used 03/08/2025 Manual wheelchair (physical object) ENIEVESGARCIA1 Lower body dressing 03/08/2025 Not assessed ENIEVESG ARCIA1 Lying to sitting on side of bed 03/08/2025 Not assessed ENIEVESGARCIA1 Oral hygiene 03/08/2025 Setup or clean-up assistance ENIEVESGARCIA1 Personal hygiene 03/08/2025 Setup or clean-up assist ance ENIEVESGARCIA1 Putting on/taking off footwear 03/08/2025 Not assessed ENIEVESGARCIA1 Roll left and right 03/08/2025 Not assessed ENIEVESG ARCIA1 Shower/bathe self 03/08/2025 Not assessed ENIEVESGAR CIA1 Sit to lying 03/08/2025 Not assessed ENIEVESGARCIA1 Sit to stand 03/08/2025 Setup or clean-up assistance ENIEVESGARCIA1 Toilet transfer 03/08/2025 Setup or clean-up assista nce ENIEVESGARCIA1 Toileting hygiene 03/08/2025 Setup or clean-up dante tance ENIEVESGARCIA1 Upper body dressing 03/08/2025 Not assessed LORRAINE ARCIA1 Walk 10 feet 03/08/2025 Setup or clean-up assistance ENIEVESGARCIA1 Walk 150 feet 03/08/2025 Setup or clean-up assistanc e ENIEVESGARCIA1 Walk 50 feet 03/08/2025 Setup or clean-up assistance ENIEVESGARCIA1 Wheel 150 feet 03/08/2025 Setup or clean-up assistan ce ENIEVESGARCIA1 Wheel 50 feet with two turns 03/08/2025 Setup or alberto an-up assistance ENIEVESGARCIA1 Immunizations Immunization Status Vaccine Details Vaccine Code CodeSystem Date Notes TB 1 Step Mantoux (PPD) completed tuberculin skin test; purified protein derivative solution, intradermal lotNumber: [id number] expiry: 06/16/2027 Mfg: [employer] Given 0.1 ml Right Forearm intradermally 96 CVX created date: 11/29/2024 consent date: 11/28/2024 administere d date: 11/29/2024 TB 2 Step Mantoux Skin Test completed tuberculin skin test; purified protein derivative solution, intradermal Step 2 of Multi-step 96 CVX created date: 11/21/2024 TB 2 Step Mantoux Skin Test completed tuberculin skin test; purified protein derivative solution, intradermal Given 0.1 ml Left Forearm intradermally Step 1 of Multi-step with next step required 96 CVX created date: 11/21/2024 administere d date: 11/19/2024 COVID-19 Vaccine Additional Dose/Booster completed unknown vaccine or immune globulin 999 CVX created date: 01/13/2025 administere d date: 07/30/2024 Flu Vaccine Prior To Admission (historical only) completed unknown vaccine or immune globulin 999 CVX created date: 01/13/2025 administere d date: 07/30/2024 RSV Vaccine Prior To Admission (historical only) completed unknown vaccine or immune globulin 999 CVX created date: 01/13/2025 administere d date: 12/19/2023 Influenza FLUAD Trivalent CVX 168 cancelled Influenza, adjuvanted, inactivated, trivalent, injectable, preservative free 168 CVX created date: 11/24/2024 consent date: 11/23/2024 Pneumococcal conjugate PCV20 [id number] cancelled Pneumococcal conjugate vaccine 20-valent (PCV20), polysaccharide [id number] conjugate, adjuvant, preservative free 216 CVX created date: 11/24/2024 consent date: 11/23/2024 [employer] COVID19 [id number] cancelled SARS-COV-2 (COVID-19) vaccine, mRNA, spike protein, LNP, preservative free, nat-sucrose, 30 mcg/0.3 mL dose 309 CVX created date: 11/24/2024 consent date: 11/23/2024 Pneumococcal conjugate PCV20, polysaccharide [id number] conjugate, adjuvant, PF completed Pneumococcal conjugate vaccine 20-valent (PCV20), polysaccharide [id number] conjugate, adjuvant, preservative free 216 CVX created date: 01/13/2025 administere d date: 05/22/2023 Medications Section Medication Name Status Code CodeSystem Dose Route Frequency Admin Type Sig Text Start Date End Date Acetaminophen Tablet 325 MG aborted 155341 RXNORM 2 tablet Oral as needed PRN Give 2 tablet by mouth every 4 hours as needed for Mild Pain More than 3 doses in 48 hours, notify physic sylvia/ad rashid goldsmith ce provid er(MARIELENA ).Do not exceed 3g/day . (stand ing order) 02/08 Acetaminophen Tablet 325 MG aborted 132929 RXNORM 2 tablet Oral as needed PRN Give 2 tablet by mouth every 6 hours as needed for Temp 100F or above Notify Physic slyvia/Ad rashid Goldsmith ce provid er. Do not exceed 3g/day 02/08 Milk of Magnesia Suspension 400 MG/5ML aborted 099266 RXNORM 30 ml Oral as needed PRN Give 30 ml by mouth as needed for Consti pation give at bedtim e if no BM in 3 days 02/08 Saline Laxative Enema aborted 1 dose Rectal as needed PRN Insert 1 dose rectal ly as needed for Consti pation if no result from Dulcol ax within 2 hours. If no result s from Saline laxati ve enema, call MD/griffin goldsmith ce provid er (MARIELENA) for furthe r orders . 02/07 Dulcolax Suppository 10 MG aborted 979108 RXNORM 1 suppos itory Rectal as needed PRN Insert 1 suppos itory rectal ly as needed for Consti pation if no result from MOM by next shift 02/08 Lisinopril Tablet 10 MG aborted 305339 RXNORM 1 tablet Oral one time a day Routine Give 1 tablet by mouth one time a day for hypert ension hold for SBP <112 02/10 Metoprolol Succinate ER Tablet Extended Release 24 Hour 25 MG aborted 235032 RXNORM 1 tablet Oral one time a day Routine Give 1 tablet by mouth one time a day for HTN 02/10 Levothyroxine Sodium Tablet 112 MCG active 790488 RXNORM 1 tablet Oral one time a day Routine Give 1 tablet by mouth one time a day for low thyroi d hormon e 2024 - Pravastatin Sodium Tablet 40 MG active 322315 RXNORM 2 tablet Oral at bedtime Routine Give 2 tablet by mouth at bedtim e for lipid contro l 2024 - Insta-Glucose Gel 77.4 % aborted 680762 2 RXNORM 1 dose Oral as needed PRN Give 1 dose by mouth as needed for BG less than 70, Pt arousa ble consci ous and able to swallo w Hold all diabet ic medica tions until provid er author izes resump tion. Remain with pt. Keep pt.in bed/ch air for safety . Repeat blood glucos e in 15 min. AND Give 1 dose by mouth as needed for BG less than 70, Pt arousa ble consci ous and able to swallo w If repeat blood glucos e is below 70mg/d l and pt is arousa ble, consci ous and able to swallo w. Contin ue to hold all diabet ic medica tions until provid er author izes resump tion. Remain with pt. Keep pt.in bed/ch air for safety . 02/08 912727 2 RXNORM 1 dose Oral as needed PRN Give 1 dose by mouth as needed for BG less than 70, Pt arousa ble consci ous and able to swallo w Hold all diabet ic medica tions until provid er author maranda resump tion. Remain with pt. Keep pt.in bed/ch air for safety . Repeat blood glucos e in 15 min. AND Give 1 dose by mouth as needed for BG less than 70, Pt arousa ble consci ous and able to swallo w If repeat blood glucos e is below 70mg/d l and pt is arousa ble, consci ous and able to swallo w. Contin ue to hold all diabet ic medica tions until provid er author maranda resump tion. Remain with pt. Keep pt.in bed/ch air for safety . 02/08 Glucagon Emergency Kit 1 MG aborted 764776 RXNORM 1 mg Intramu scular as needed PRN Inject 1 mg intram uscula rly as needed for BG less than 70, Not arousa ble consci ous or able to swallo w Hold all diabet ic meds until provid er author maranda resump tion, remain with pt.and keep in bed/ch air for safety . Repeat blood glucos e in 15 min AND Inject 1 mg intram uscula rly as needed for BG less than 70, Not arousa ble consci ous or able to swallo w If repeat blood glucos e is below 70mg/d l and pt is NOT arousa ble, consci ous or able to swallo w. Contin ue to hold all diabet ic medica tions until provid er author maranda resump tion. Remain with pt. Keep pt. in bed/ch air for safety . 02/08 257157 RXNORM 1 mg Intramu scular as needed PRN Inject 1 mg intram uscula rly as needed for BG less than 70, Not arousa ble consci ous or able to swallo w Hold all diabet ic meds until provid er author maranda resump tion, remain with pt.and keep in bed/ch air for safety . Repeat blood glucos e in 15 min AND Inject 1 mg intram uscula rly as needed for BG less than 70, Not arousa ble consci ous or able to swallo w If repeat blood glucos e is below 70mg/d l and pt is NOT arousa ble, consci ous or able to swallo w. Contin ue to hold all diabet ic medica tions until provid er author maranda resump tion. Remain with pt. Keep pt. in bed/ch air for safety . 02/08 Zinc Sulfate Capsule 220 MG active 107587 RXNORM 1 capsul e Oral one time a day Routine Give 1 capsul e by mouth one time a day for zinc defici ency 2024 - Calcium + Vitamin D3 Oral Tablet 600-10 MG-MCG active 1 tablet Oral two times a day Routine Give 1 tablet by mouth two times a day for supple ment 2024 - Tamsulosin HCl Capsule aborted 0.8 mg Oral at bedtime Routine Give 0.8 mg by mouth at bedtim e for benign prosta tic hyperp lasia 02/10 Loperamide HCl Capsule 2 MG aborted 957171 RXNORM 1 capsul e Oral as needed PRN Give 1 capsul e by mouth every 8 hours as needed for loose stool loose stool 02/08 Vitamin B12 Oral Tablet 100 MCG active 1 tablet Oral one time a day Routine Give 1 tablet by mouth one time a day for supple ment 2024 - Proventil HFA Aerosol Solution 108 (90 Base) MCG/ACT aborted 010872 RXNORM 2 puff Inhalat ion as needed PRN 2 puff inhale orally every 4 hours as needed for SOB/wh eeze/c ough 02/08 GuaiFENesin Liquid 100 MG/5ML aborted 604543 RXNORM 10 ml Oral as needed PRN Give 10 ml by mouth every 4 hours as needed for Cough 02/08 TraMADol HCl Tablet 50 MG aborted 258065 RXNORM 1 tablet Oral as needed PRN Give 1 tablet by mouth every 8 hours as needed for modera te and severe pain 02/08 Nystatin External Cream 241097 UNIT/GM aborted 225342 RXNORM n/a n/a Topical every 12 hours Routine Apply to alen-a nal area topica lly every 12 hours for fungal rash may also apply q 4 hrs PRN with incont inent care AND Apply to alen-a nal topica lly every 4 hours as needed for fungal rash 02/28 139960 RXNORM n/a n/a Topical as needed PRN Apply to alen-a nal area topica lly every 12 hours for fungal rash may also apply q 4 hrs PRN with incont inent care AND Apply to alen-a nal topica lly every 4 hours as needed for fungal rash 02/28 Zofran Oral Tablet 4 MG aborted 424390 RXNORM 4 mg Oral as needed PRN Give 4 mg by mouth every 8 hours as needed for nausea /vomit ing 02/08 HumaLOG Mix 75/25 KwikPen Suspension Pen-injector (75-25) 100 UNIT/ML aborted 057538 RXNORM 20 unit Subcuta neous one time a day Routine Inject 20 unit subcut aneous ly one time a day for diabet es AC breakf ast and dinner W arning ! Confir m patien t. Insuli n pens are for use in one patien t only. AND Inject 25 unit subcut aneous ly one time a day for DM 02/16 313524 RXNORM 25 unit Subcuta neous one time a day Routine Inject 20 unit subcut aneous ly one time a day for diabet es AC breakf ast and dinner W arning ! Confir m patien t. Insuli n pens are for use in one patien t only. AND Inject 25 unit subcut aneous ly one time a day for DM 02/16 INSULIN LISPRO 100 UNIT/ML PEN aborted 267176 9 RXNORM n/a n/a Subcuta neous with meals Routine Inject as per cydney muse scale: if 150 - 199 = 4; 200 - 249 = 6; 250 - 299 = 8; 300 - 349 = 10; 350 - 399 = 12; 400+ > 400 call MD for orders , subcut aneous ly with meals for DM 02/07 BD AutoShield Duo Miscellaneous 30G X 5 MM aborted 100 piece Subcuta neous four times a day Routine Inject 100 piece subcut aneous ly four times a day for DM 02/24 Monistat 1 Day or Night Vaginal Kit 1200 & 2 MG & % complete d 1 applic ation Vaginal one time only One Time Only Insert 1 applic ation vagina lly one time only for yeast infect ion for 1 Day 02/07 INSULIN LISPRO 100 UNIT/ML PEN aborted 414621 9 RXNORM n/a n/a Subcuta neous with meals Routine Inject as per slrafa g scale: if 150 - 199 = 2; 200 - 249 = 4; 250 - 299 = 6; 300 - 349 = 8; 350 - 399 = 10; 400+ > 400 call MD for orders , subcut aneous ly with meals for DM 02/16 hydrALAZINE HCl Oral Tablet 10 MG aborted 329204 RXNORM 1 tablet Oral as needed PRN Give 1 tablet by mouth every 23 hours as needed for HTN give at HS if BP > 150/80 02/10 hydrALAZINE HCl Oral Tablet 10 MG active 747188 RXNORM 1 tablet Oral as needed PRN Give 1 tablet by mouth every 23 hours as needed for htn give if BP > 150/80 2024 - Acetaminophen Tablet 325 MG active 920734 RXNORM 2 tablet Oral as needed PRN Give 2 tablet by mouth every 4 hours as needed for Mild Pain More than 3 doses in 48 hours, notify physic sylvia/alfreda goldsmith provid er(MARIELENA ).Do not exceed 3g/day . (stand ing order) 2024 - Acetaminophen Tablet 325 MG active 383310 RXNORM 2 tablet Oral as needed PRN Give 2 tablet by mouth every 6 hours as needed for Temp 100F or above Notify Physic sylvia/Ad rashid Pracnemo provid er. Do not exceed 3g/day 2024 - Milk of Magnesia Suspension 400 MG/5ML active 135795 RXNORM 30 ml Oral as needed PRN Give 30 ml by mouth as needed for Consti pation give at bedtim e if no BM in 3 days 2024 - Saline Laxative Enema active 1 dose Rectal as needed PRN Insert 1 dose rectal ly as needed for Consti pation if no result from Dulcol ax within 2 hours. If no result s from Saline laxati ve enema, call /griffin goldsmith ce provid er (MARIELENA) for furthe r orders . 2024 - Dulcolax Suppository 10 MG active 741508 RXNORM 1 suppos itory Rectal as needed PRN Insert 1 suppos itory rectal ly as needed for Consti pation if no result from MOM by next shift 2024 - Insta-Glucose Gel 77.4 % active 102603 2 RXNORM 1 dose Oral as needed PRN Give 1 dose by mouth as needed for BG less than 70, Pt arousa ble consci ous and able to swallo w Hold all diabet ic medica tions until provid er author izes resump tion. Remain with pt. Keep pt.in bed/ch air for safety . Repeat blood glucos e in 15 min. AND Give 1 dose by mouth as needed for BG less than 70, Pt arousa ble consci ous and able to swallo w If repeat blood glucos e is below 70mg/d l and pt is arousa ble, consci ous and able to swallo w. Contin ue to hold all diabet ic medica tions until provid er author izes resump tion. Remain with pt. Keep pt.in bed/ch air for safety . 2024 - 602549 2 RXNORM 1 dose Oral as needed PRN Give 1 dose by mouth as needed for BG less than 70, Pt arousa ble consci ous and able to swallo w Hold all diabet ic medica tions until provid er author izes resump tion. Remain with pt. Keep pt.in bed/ch air for safety . Repeat blood glucos e in 15 min. AND Give 1 dose by mouth as needed for BG less than 70, Pt arousa ble consci ous and able to swallo w If repeat blood glucos e is below 70mg/d l and pt is arousa ble, consci ous and able to swallo w. Contin ue to hold all diabet ic medica tions until provid er author izes resump tion. Remain with pt. Keep pt.in bed/ch air for safety . 2024 - Glucagon Emergency Kit 1 MG active 069206 RXNORM 1 mg Intramu scular as needed PRN Inject 1 mg intram uscula rly as needed for BG less than 70, Not arousa ble consci ous or able to swallo w Hold all diabet ic meds until provid er author maranda resump tion, remain with pt.and keep in bed/ch air for safety . Repeat blood glucos e in 15 min AND Inject 1 mg intram uscula rly as needed for BG less than 70, Not arousa ble consci ous or able to swallo w If repeat blood glucos e is below 70mg/d l and pt is NOT arousa ble, consci ous or able to swallo w. Contin ue to hold all diabet ic medica tions until provid er author maranda resump tion. Remain with pt. Keep pt. in bed/ch air for safety . 2024 - 779171 RXNORM 1 mg Intramu scular as needed PRN Inject 1 mg intram uscula rly as needed for BG less than 70, Not arousa ble consci ous or able to swallo w Hold all diabet ic meds until provid er author maranda resump tion, remain with pt.and keep in bed/ch air for safety . Repeat blood glucos e in 15 min AND Inject 1 mg intram uscula rly as needed for BG less than 70, Not arousa ble consci ous or able to swallo w If repeat blood glucos e is below 70mg/d l and pt is NOT arousa ble, consci ous or able to swallo w. Contin ue to hold all diabet ic medica tions until provid er author maranda resump tion. Remain with pt. Keep pt. in bed/ch air for safety . 2024 - Insulin Glargine Subcutaneous Solution Pen-injector 100 UNIT/ML active 441145 RXNORM 20 unit Subcuta neous in the evening Routine Inject 20 unit subcut aneous ly in the evenin g for DM 2024 - INSULIN LISPRO 100 UNIT/ML PEN active 557427 9 RXNORM n/a n/a Subcuta neous with meals Routine Inject as per cydney muse scale: if 150 - 199 = 4; 200 - 249 = 6; 250 - 299 = 8; 300 - 349 = 10; 350 - 399 = 12; 400+ > 400 call MD for orders , subcut aneous ly with meals for DM 2024 - BD AutoShield Duo Miscellaneous 30G X 5 MM active 100 piece Subcuta neous before meals and at bedtime Routine Inject 100 piece subcut aneous ly before meals and at bedtim e for DM 2024 - Cefuroxime Axetil Oral Tablet 500 MG complete d 230368 RXNORM 500 mg Oral two times a day Routine Give 500 mg by mouth two times a day for UTI for 7 Days 03/03 Nystatin Powder 006447 UNIT/GM complete d 195546 RXNORM n/a n/a Topical one time a day Routine Apply to under left breast topica lly one time a day for fungal area for 7 Days under breast 03/07 Fluconazole Tablet 150 MG complete d 935894 RXNORM 1 tablet Oral one time only One Time Only Give 1 tablet by mouth one time only for yeast infect ion until 2024 23:59 03/04 Mental Status Section Date Assessment Total Score Description 02/08/2025 CAM 0 No delirium ind icated 02/06/2025 BIMS 15 cognitively int act CAM 0 No delirium ind icated Problems Problem # Description Date of onset Resolved Date Code CodeSystem Concern Status 1 URINARY TRACT INFECTION, SITE NOT SPECIFIED 01/29/[address] active 2 BRONCHITIS, NOT SPECIFIED ACUTE OR CHRONIC 11/21/1911/21/[address] completed 3 UNSPECIFIED CHRONIC BRONCHITIS 11/21/[address] active 4 ATHEROSCLEROTIC HEART DISEASE OF [place] CORONARY ARTERY WITHOUT ANGINA PECTORIS 11/18/[address] active 5 BODY MASS INDEX [BMI] 37.0-37.9, ADULT 11/18/[address] active 6 BRADYCARDIA, UNSPECIFIED 11/18/[address] active 7 DIARRHEA, UNSPECIFIED 11/18/[address] active 8 ENCOUNTER FOR OTHER ORTHOPEDIC AFTERCARE 11/18/[address] active 9 ESSENTIAL (PRIMARY) HYPERTENSION 11/18/[address] active 10 HYPOTHYROIDISM, UNSPECIFIED 11/18/[address] active 11 LEFT BUNDLE-BRANCH BLOCK, UNSPECIFIED 11/18/[address] active 12 [facility] (CURRENT) USE OF INSULIN 11/18/[address] active 13 MIXED HYPERLIPIDEMIA 11/18/[address] active 14 MORBID (SEVERE) OBESITY DUE TO EXCESS CALORIES 11/18/[address] active 15 OTHER FRACTURE OF LOWER END OF LEFT FEMUR, SUBSEQUENT ENCOUNTER FOR CLOSED FRACTURE WITH ROUTINE HEALING 11/18/[address] active 16 PRESENCE OF ARTIFICIAL HIP JOINT, BILATERAL 11/18/[address] active 17 SYNCOPE AND COLLAPSE 11/18/[address] active 18 TYPE 2 DIABETES MELLITUS WITH HYPERGLYCEMIA 11/18/[address] active 19 UNSPECIFIED FALL, SUBSEQUENT ENCOUNTER 11/18/[address] active 20 UNSPECIFIED LACK OF COORDINATION 11/18/[address] active 21 UNSTEADINESS ON FEET 11/18/[address] active Reason for Referral No Reasons for Referral Entered Diagnostic Results Result Code Code System Date Test Result Interpretation Reference Range Status Notes 43331-6 LOINC 02/07 EKG W/ INTERPRETATI ON Completed Result for: KAYLIEMICHELLEGUILLELewisNIMCOLISA ( 1935, F) 80582-3 LOINC 02/07 EKG W/ INTERPRETATI ON Final EKG W/ INTERPRETATI ONFINDINGS: Sinus bradycardia at 50 bpm Left bundle branch block. Abnormal ECG. Intervals:EL ECTRONICALLY SIGNED BY RYAN RIVAS M.D. 02/07/2025 2:17:02 PM EDT.Reason for Study: R55 SYNCOPE AND COLLAPSEPrin cipal Result Auditor Supervisor: RYAN RIVAS ([id number]) Bill Distributor: MARIYA JONES (DSEXBLAIR)Tra nscription Bill Distributor: SARAN Test Code Code System Name Date 02/07/2025 Social History Social History Observation Description Start Date End Date Code Code System Current Smoking Status Tobacco smoking consumption unknown [id number] SNOMED CT Sex Assigned At Female 1935 06199-3 [facility] Vital Signs Code Code System Vitals Name Values and Units Timing Information 18979-2 [facility] Pain Level Value=0.0 03/08/2025 2339-0 [facility] Blood Sugar Amhgf=124.0 Units=mg/dL 03/08/2025 9279-1 [facility] Respiratory Rate Value=18.0 Units=/m in 03/08/2025 8462-4 [facility] Blood Pressure-Diastolic Value=77 Un its=mmHg 03/08/2025 8480-6 [facility] Blood Pressure-Systolic Kqkcy=150 Un its=mmHg 03/08/2025 8310-5 [facility] Body Temperature Value=97.7 Units=?? F 03/08/2025 8867-4 [facility] Heart rate Value=69.0 Units=/min 38843-1 [facility] O2 % BldC Oximetry Value=98.0 Units= % 03/08/2025 35853-5 [facility] Weight Ebxvh=002.0 Units=Lbs 10/2025 8302-2 [facility] Height Value=67.0 Units=Inches 11/18/2024
--- OUTSIDE RECORDS SUMMARY | 2025-03-11 13:05 | XMS_ITS | Encounter Summary ---
Author Organization [facility] Address [address] [place] [address] Care Team Providers Care Marketing Strategy Analyst Name Role Phone Keli Dickinson MD Primary Care Provider [phone] Encounter Details Date Type Department Care Team (Late st Contact Info) Description 02/06/2025 Lab Requisition [facility] Lab [address] [place] [address] Keli Dickinson MD [address] [place] [address] Syncope and collapse Social History Tobacco Use Types Packs/Day Years [...] Procedure Name Priority Date/Time Associated Diagnosis Comments COMPLETE BLOOD COUNT Routine 02/06/2025 7:07 AM EDT Syncope and collapse BASIC METABOLIC PANEL Routine 02/06/2025 7:07 AM EDT Syncope and collapse documented in this encounter Results * (ABNORMAL) Basic metabolic panel (02/06/2025 7:07 AM EDT) Sodium 135 133 - 145 mmol/L LAB CHEMISTRY METHOD 02/06/2025 12:38 PM EDT [facility] Potassium 4.4 3.5 - 5.5 mmol/L LAB CHEMISTRY METHOD 02/06/2025 12:38 PM EDT [facility] Chloride 103 96 - 110 mmol/L LAB CHEMISTRY METHOD 02/06/2025 12:38 PM T [facility] CO2 26 21 - 32 mmol/L LAB CHEMISTRY METHOD 02/06/2025 12:38 PM EDT [facility] Anion Gap 6 3 - 11 LAB CHEMISTRY METHOD 02/06/2025 12:38 PM [facility] Glucose 58(L) 70 - 100 mg/dL LAB CHEMISTRY METHOD 02/06/2025 12:38 PM EDT [facility] BUN 17 5 - 25 mg/dL LAB CHEMISTRY METHOD 02/06/2025 12:38 PM EDT [facility] Creatinine 0.66 0.50 - 1.10 mg/dL LAB CHEMISTRY METHOD [facility] eGFR 84 >=60 mL/min/1. 73m2 LAB CHEMISTRY METHOD 02/06/2025 12:38 PM EDT [facility] Comment:Calculation based on the??Chronic Kidney Disease Epidemiology Collaboration (CKD-EPI) equation refit??without adjustment for race. BUN/Creatinine Ratio 25.8 LAB CHEMISTRY METHOD 02/06/2025 12:38 PM [facility] Calcium 8.7 8.5 - 10.5 mg/dL LAB CHEMISTRY METHOD 02/06/2025 12:38 PM [facility] Blood Venous blood specimen / Unknown Venipuncture / Unknown 02/06/2025 7:07 AM EDT 02/06/2025 10:22 AM EDT us Keli Dickinson MD LAB BLOOD ORDERABLES Final Resul t [facility] [address] [place] [address], * (ABNORMAL) Complete blood count (02/06/2025 7:07 AM EDT) WBC 8.2 4.8 - 10.8 K/mcL LAB HEMETOLOGY METHOD 02/06/2025 11:56 AM [facility] RBC 4.10 3.80 - 4.80 M/mcL LAB HEMETOLOGY METHOD 02/06/2025 11:56 AM [facility] Hemoglobin 10.4(L) 11.5 - 16.0 g/dL LAB HEMETOLOGY METHOD 02/06/2025 11:56 AM [facility] Hematocrit 34.0(L) 35.0 - 47.0 % LAB HEMETOLOGY METHOD 02/06/2025 11:56 AM [facility] MCV 82.9 79.0 - 98.0 FL LAB HEMETOLOGY METHOD 02/06/2025 11:56 AM [facility] MCH 25.4(L) 27.0 - 32.0 pcg LAB HEMETOLOGY METHOD 02/06/2025 11:56 AM [facility] MCHC 30.6(L) 32.0 - 37.0 g/dL LAB HEMETOLOGY METHOD 02/06/2025 11:56 AM [facility] RDW 15.9(H) 11.0 - 15.0 % LAB HEMETOLOGY METHOD 02/06/2025 11:56 AM [facility] Platelets 228 130 - 400 K/mcL LAB HEMETOLOGY METHOD 02/06/2025 11:56 AM [facility] MPV 11.6(H) 7.0 - 11.0 FL LAB HEMETOLOGY METHOD 02/06/2025 11:56 AM [facility] NRBC 0.0 <1.0 % LAB HEMETOLOGY METHOD 02/06/2025 11:56 AM [facility] NRBC Absolute 0.00 <0.10 K/mcL LAB HEMETOLOGY METHOD 02/06/2025 11:56 AM [facility] Blood Venous blood specimen / Unknown Venipuncture / Unknown 02/06/2025 7:07 AM EDT 02/06/2025 10:22 AM EDT us Keli Dickinson MD LAB BLOOD ORDERABLES Final Resul t [facility] [address] [place] [address], documented in this encounter Visit Diagnoses Diagnosis Syncope and collapse documented in this encounter 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
--- OUTSIDE RECORDS SUMMARY | 2025-03-11 13:05 | XMS_ITS ---
Author Organization [facility] Address [address] [place] [address] Care Team Providers Care Logistics Center Manager Name Role Phone Janes Foster MD Primary Care Provider Fernando Wall Unavailable [phone] Allergies Allergen (clinical drug ingredient) Drug/Non Drug [...] Ordered Date Performed Result Body Sit e 19786-IIIYHSF NAIL, 6 OR MORE 07/15/2024 N/A 54706-Ufmkdydb Plate 07/15/2024 N/A 11047-RQNK SKIN LESIONS, OVER 4 07/15/2024 N/A Encounters Encounter Location Date Provider Diagnosis [facility] [address] [place] [address] 07/15/2024 Fernando Lim Type 1 diabetes mellitus [...] Treatment Pending Test Test Name Order Date [id number] NAIL, 6 OR MORE 07/15/2024 26677-Veglzbpr Plate 07/15/2024 33781-QDXN SKIN LESIONS, OVER 4 07/15/20 24 Next [...] Motrin was recommended for pain or discomfort (30186) , DIABETES: Pt was advised as to [...] use of a nail nipper and/or dremel-type tool grinder, to a more viable healthy nail plate or bed tissue 6-10. Silver nitrate used for any petechial bleeding as necessary. Definitive antifungal treatment options have been reviewed and discussed with the patient. The patient chooses, no pharmaceutical tx - 42834 Keratoma Treatment Parring or Cutting o f Benign Hyperkeratotic Lesion(s) 20625 ( >4 Lesions) - The Benign hyperkeratotic lesions, as described above were pared, and/or cut utilizing a sterile #15 blade, tissue nippers, and/or dremel Progress Notes * Lisa HOLLIDAY ADOB:[birth year] (88 yo F)Acc No.[id number]:07/15/2024 Progress Note Patient:?Lisa Holliday Provider:?Fernando Lim DPM :1935???Age:88 Y???Sex:Female D ate:07/15/2024 Address: [address] , [id number] Pcp:Janes Foster MD Subjective: * Chief Complaints: [...] needle Biopsy breast tissue 01/2017,02/[place] [place]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 10/2011Vertigo 07/2012[facility] [place] - BP was Low / Heart [...] , T5? Plan: * Treatment: 2.?Ingrown nail?Procedure: 34587-Rxptevkc Plate * Procedures:?Debride Nail 6-10:?Nail debridement?Performance of this nail treatment by a nonprofessional would put this patients foot and overall health at risk. Therefore, nail debridement was performed extensively to reduce/remove overall nail length, girth, thickness, subungual debris, and necrotic tissue, by manual and/or electrical means through the use of a nail nipper and/or dremel-type tool grinder, to a more viable healthy nail plate or bed tissue 6-10. Silver nitrate used for any petechial bleeding as necessary. Definitive antifungal treatment options have been reviewed and discussed with the patient. The patient chooses, no pharmaceutical tx - 70705.?Keratoma Treatment:?Parring or Cutting of Benign Hyperkeratotic Lesion(s)?59331 ( >4 Lesions) - The Benign hyperkeratotic [...] Motrin was recommended for pain or discomfort (23375) , DIABETES: Pt was advised as to the risk of delayed or nonhealing due to diabetes. Pt is to call the office with any questions, concerns, or complications.? * Procedure Codes:?67856 DEBRI DE NAIL, 6 OR MORE, Modifiers: XS 06811 Avulsion Plate, Modifiers: XS , [id number] TRIM SKIN LESIONS, OVER 4, Modifiers: XS * Follow Up:?prn * Images: * Sign off status: Completed true * Provider:?Fernando Lim DPM Date:?2023 Generated for Angélica ken/Jonnie/Nat on:?03/11/2025 01:05 PM EDT History and Physical Notes * HPI [...]
--- OUTSIDE RECORDS SUMMARY | 2025-03-11 13:05 | XMS_ITS | Encounter Summary ---
Author Organization [facility] Address [address] [place] [address] Care Team Providers Care Oriental Rug Repairer Name Role Phone Keli Dickinson MD Primary Care Provider [phone] Encounter Details Date Type Department Care Team (Late st Contact Info) Description 02/07/2025 Lab Requisition [facility] Lab [address] [place] [address] Keli Dickinson MD [address] [place] [address] Urinary tract infection, site not [...] Diagnosis Comments URINALYSIS WITH REFLEX MICROSCOPIC Routine 02/07/2025 12:00 AM EDT Urinary tract infection, site not specified HAWKINS URINE CULTURE TUBE Routine 02/07/2025 12:00 AM EDT Urinary tract infection, site not specified URINALYSIS WITH REFLEX MICROSCOPIC Routine 02/07/2025 12:00 AM EDT Urinary tract infection, site not specified documented in this encounter Results * Hawkins urine culture tube (02/07/2025 12:00 AM EDT) Extra Tube Hold for add-ons. 02/07/2025 1:01 PM EDT [facility] Comment:Auto resulted. Urine Urine specimen obtained by clean catch procedure / Unknown 02/07/2025 02/07/2025 11:38 AM EDT us Keli Dickinson MD LAB URINE ORDERABLES Final Resul t [facility] [address] [place] [address], [place] [phone] * (ABNORMAL) Urinalysis with reflex microscopic (02/07/2025 12:00 AM EDT) Specific Mouthcard Urine 1.017 1.003 - 1.030 LAB URINALYSIS - AUTOMATED METHOD 02/07/2025 1:34 PM EDT [facility] pH, Urine 6.0 5.0 - 8.0 pH LAB URINALYSIS - AUTOMATED METHOD 02/07/2025 1:34 PM [facility] Leukocytes, Urine Large(A) Negative LAB URINALYSIS - AUTOMATED METHOD 02/07/2025 1:34 PM [facility] Nitrite, Urine Negative Negative LAB URINALYSIS - AUTOMATED METHOD 02/07/2025 1:34 PM [facility] Protein, Urine 30(A) <=Trace mg/dL LAB URINALYSIS - AUTOMATED METHOD 02/07/2025 1:34 PM [facility] Glucose, Urine Negative Negative mg/dL LAB URINALYSIS - AUTOMATED METHOD 02/07/2025 1:34 PM [facility] Ketones, Urine Trace(A) Negative mg/dL LAB URINALYSIS - AUTOMATED METHOD 02/07/2025 1:34 PM [facility] Urobilinogen , Urine 0.2 0.2 - 1.0 mg/dL LAB URINALYSIS - AUTOMATED METHOD 02/07/2025 1:34 PM [facility] Bilirubin, Urine Negative Negative LAB URINALYSIS - AUTOMATED METHOD 02/07/2025 1:34 PM [facility] Blood, Urine Trace(A) Negative LAB URINALYSIS - AUTOMATED METHOD 02/07/2025 1:34 PM EDT [facility] RBC, Urine 13.5(H) 0 - 4 /HPF LAB URINALYSIS - AUTOMATED METHOD 02/07/2025 1:34 PM EDT [facility] WBC, Urine 846.5(H) 0 - 4 /HPF LAB URINALYSIS - AUTOMATED METHOD 02/07/2025 1:34 PM EDT [facility] Squamous Epithelial, Urine >100(H) 0 - 60 /LPF LAB URINALYSIS - AUTOMATED METHOD 02/07/2025 1:34 PM EDT [facility] Bacteria, Urine Negative Negative /HPF LAB URINALYSIS - AUTOMATED METHOD 02/07/2025 1:34 PM EDT [facility] Hyaline Casts, Urine 12.0(H) 0 - 3 /LPF LAB URINALYSIS - AUTOMATED METHOD 02/07/2025 1:34 PM EDT [facility] Yeast, Urine Present(A) None /HPF LAB URINALYSIS - AUTOMATED METHOD 02/07/2025 1:34 PM T [facility] Urine Urine specimen obtained by clean catch procedure / Unknown 02/07/2025 02/07/2025 11:37 AM EDT us Keli Dickinson MD LAB URINE ORDERABLES Final Resul t [facility] [address] [place] [address], documented in this encounter Visit Diagnoses Diagnosis Urinary tract infection, site not specified documented in this encounter 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
--- OUTSIDE RECORDS SUMMARY | 2025-03-11 13:05 | XMS_ITS | Encounter Summary ---
Author Organization [facility] Address [address] [place] [address] Care Team Providers Care Party Plan Sales Host/Hostess Name Role Phone Keli Dickinson MD Primary Care Provider [phone] Encounter Details Date Type Department Care Team (Latest Contact Info) Description 01/18/[address] [facility] Lab [address] [place] [address] Keli Dickinson MD [address] [place] [address] Type 2 diabetes mellitus without complications (CMS/HCC V24, CMS/HCC V28); Essential (primary) hypertension; Hypo-osmolality and hyponatremia Social History Tobacco Use Types Packs/Day Years [...] Associated Diagnosis Comments COMPLETE BLOOD COUNT Routine 01/18/2025 9:14 AM EST Type 2 diabetes mellitus without complications ([facility]/HCC) Essential (primary) hypertension Hypo-osmolality and hyponatremia BASIC METABOLIC PANEL Routine 01/18/2025 9:14 AM EST Type 2 diabetes mellitus without complications (CMS/HCC) Essential (primary) hypertension Hypo-osmolality and hyponatremia documented in this encounter Results * (ABNORMAL) Basic metabolic panel (01/18/2025 9:14 AM EST) Sodium 137 133 - 145 mmol/L LAB CHEMISTRY METHOD 01/18/2025 2:47 PM EST [facility] Potassium 3.7 3.5 - 5.5 mmol/L LAB CHEMISTRY METHOD 01/18/2025 2:47 PM [facility] Chloride 105 96 - 110 mmol/L LAB CHEMISTRY METHOD 01/18/2025 2:47 PM [facility] CO2 22 21 - 32 mmol/L LAB CHEMISTRY METHOD 01/18/2025 2:47 PM [facility] Anion Gap 10 3 - 11 LAB CHEMISTRY METHOD 01/18/2025 2:47 PM [facility] Glucose 257(H) 70 - 100 mg/dL LAB CHEMISTRY METHOD 01/18/2025 2:47 PM [facility] BUN 24 5 - 25 mg/dL LAB CHEMISTRY METHOD 01/18/2025 2:47 PM [facility] Creatinine 0.99 0.50 - 1.10 mg/dL LAB CHEMISTRY METHOD 01/18/2025 2:47 PM [facility] eGFR 55(L) >=60 mL/min/1. 73m2 LAB CHEMISTRY METHOD 01/18/2025 2:47 PM [facility] Comment:Calculation based on the??Chronic Kidney Disease Epidemiology Collaboration (CKD-EPI) equation refit??without adjustment for race. BUN/Creatinine Ratio 24.2 LAB CHEMISTRY METHOD 01/18/2025 2:47 PM [facility] Calcium 8.6 8.5 - 10.5 mg/dL LAB CHEMISTRY METHOD 01/18/2025 2:47 PM [facility] Blood Venous blood specimen / Unknown Venipuncture / Unknown 01/18/2025 9:14 AM EST 01/18/2025 10:13 AM EST us Keli Dickinson MD LAB BLOOD ORDERABLES Final Resul t [facility] [address] [place] [address], * (ABNORMAL) Complete blood count (01/18/2025 9:14 AM EST) [facility] WBC 7.5 4.8 - 10.8 K/mcL LAB HEMETOLOGY METHOD 01/18/2025 11:33 AM [facility] RBC 3.90 3.80 - 4.80 M/mcL LAB HEMETOLOGY METHOD 01/18/2025 11:33 AM [facility] Hemoglobin 9.7(L) 11.5 - 16.0 g/dL LAB HEMETOLOGY METHOD 01/18/2025 11:33 AM [facility] Hematocrit 31.3(L) 35.0 - 47.0 % LAB HEMETOLOGY METHOD 01/18/2025 11:33 AM [facility] MCV 80.3 79.0 - 98.0 FL LAB HEMETOLOGY METHOD 01/18/2025 11:33 AM [facility] MCH 24.9(L) 27.0 - 32.0 pcg LAB HEMETOLOGY METHOD 01/18/2025 11:33 AM [facility] MCHC 31.0(L) 32.0 - 37.0 g/dL LAB HEMETOLOGY METHOD 01/18/2025 11:33 AM [facility] RDW 15.1(H) 11.0 - 15.0 % LAB HEMETOLOGY METHOD 01/18/2025 11:33 AM [facility] Platelets 229 130 - 400 K/mcL LAB HEMETOLOGY METHOD 01/18/2025 11:33 AM [facility] MPV 11.6(H) 7.0 - 11.0 FL LAB HEMETOLOGY METHOD 01/18/2025 11:33 AM [facility] NRBC 0.0 <1.0 % LAB HEMETOLOGY METHOD 01/18/2025 11:33 AM [facility] NRBC Absolute 0.00 <0.10 K/mcL LAB HEMETOLOGY METHOD 01/18/2025 11:33 AM EST [facility] Blood Venous blood specimen / Unknown Venipuncture / Unknown 01/18/2025 9:14 AM EST 01/18/2025 10:13 AM EST us Keli Dickinson MD LAB BLOOD ORDERABLES Final Resul t [facility] [address] [place] [address], documented in this encounter Visit Diagnoses Diagnosis Type 2 diabetes mellitus without complications (CMS/HCC V24, CMS/HCC V28) Essential (primary) hypertension Unspecified essential hypertension Hypo-osmolality and hyponatremia documented in this encounter Additional Health 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
--- OUTSIDE RECORDS SUMMARY | 2025-03-11 13:05 | XMS_ITS | Clinical Summary ---
Author Organization [address] [facility] Address [address] [place] [address] Phone Care Team Providers Care Labeling Strategist Name Role Phone Keli Dickinson MD Primary Care Provider [phone] Encounters Date Type Department Care Team Description 02/23/2025 Lab Requisition [facility] Lab [address] [place] [phone] Keli Dickinson MD Urgency of urination; Urinary tract infection, site not specified 02/07/2025 Lab Requisition [facility] Lab [address] [place] [address] Keli Dickinson MD Urinary tract infection, site not specified 02/06/2025 Lab Requisition [facility] Lab [address] [place] [address] Keli Dickinson MD Syncope and collapse 01/28/2025 Lab Requisition [facility] Lab [address] [place] [address] Keli Dickinson MD Anemia, unspecified 01/26/2025 Lab Requisition [facility] Lab [address] [place] [address] Keli Dickinson MD Urinary tract infection, site not specified 01/18/2025 Lab Requisition [facility] [address] [place] [phone] Keli Dickinson MD Type 2 diabetes mellitus without complications (CMS/HCC V24, CMS/HCC V28); Essential (primary) hypertension; Hypo-osmolality and hyponatremia from Last 3 Months Social History Tobacco Use Types Packs/Day Years Used Date Smoking Tobacco: Never Assessed Comments Unknown Sex and Gender Information Value Date Recorded Sex Assigned at Not on file Legal Sex Female 8:53 AM EST Gender Identity Not on file Sexual Orientation Not on file Plan of Treatment Health Maintenance Due Date Last Done Comments Diabetes: Annual Foot Exam 1945 Diabetes: Annual Retina Eye Exam 1945 DTaP,Tdap,and Td Vaccines (1 - Tdap) 1954 Pneumococcal Vaccine: 50+ Years (1 of 2 - PCV) 1954 Zoster Vaccines (1 of 2) 1985 RSV Immunization Adult Patients (1 - 1-dose 75+ series) 2010 COVID-19 Vaccine ( - season) 2024 Cholesterol Screening (Lipid Panel) 11/05/2024 Depression Screening 11/05/2024 Falls Risk Assessment 11/05/2024 Medicare Annual Wellness Visit 11/05/2024 Osteoporosis Screening (Bone Density Screening) 11/05/2024 Social Influencers of Health Screening 11/05/2024 Diabetes: Blood Sugar Control Test (HGBA1C) 05/19/2025 11/19/2024 Influenza Vaccine (Season Ended) 2025 Hypertension/CHF/CAD Annual BMP Blood Test 02/06/2026 02/06/2025, 01/28/2025, 01/18/2025, Additional history exists HIB Vaccines Aged Out No longer eligi ble based on patient's age to complete this topic HPV Vaccines Aged Out No longer eligi ble based on patient's age to complete this topic Hepatitis A Vaccines Aged Out No long er eligible based on patient's age to complete this topic Hepatitis B Vaccines Aged Out No long er eligible based on patient's age to complete this topic IPV Vaccines Aged Out No longer eligi ble based on patient's age to complete this topic MMR Vaccines Aged Out No longer eligi ble based on patient's age to complete this topic Meningococcal ACWY Vaccine Aged Out N o longer eligible based on patient's age to complete this topic Meningococcal B Vaccine Aged Out No l onger eligible based on patient's age to complete this topic RSV Immunization Patients Under 20 months Aged Out No longer eligible based on patient's age to complete this topic Varicella Vaccines Aged Out No longer eligible based on patient's age to complete this topic Procedures Procedure Name Priority Date/Time Associated Diagnosis [...] EDT Urinary tract infection, site not specified BASIC METABOLIC PANEL Routine 02/06/2025 7:07 AM EDT Syncope and collapse COMPLETE BLOOD COUNT Routine 02/06/2025 7:07 AM EDT Syncope and collapse D-DIMER Routine 01/28/2025 3:28 PM EDT Anemia, unspecified COMPREHENSIVE METABOLIC PANEL Routine 01/28/2025 3:28 PM EDT Anemia, unspecified COMPLETE BLOOD COUNT Routine 01/28/2025 3:28 PM EDT Anemia, unspecified URINALYSIS WITH REFLEX MICROSCOPIC Routine 01/25/2025 11:15 PM EDT Urinary tract infection, site not specified URINALYSIS WITH REFLEX MICROSCOPIC Routine 01/25/2025 11:15 PM EDT Urinary tract infection, site not specified CULTURE URINE Routine 01/25/2025 11:15 PM EDT Urinary tract infection, site not specified BASIC METABOLIC PANEL Routine 01/18/2025 9:14 AM EST Type 2 diabetes mellitus without complications ([facility]) Essential (primary) hypertension Hypo-osmolality and hyponatremia COMPLETE BLOOD COUNT Routine 01/18/2025 9:14 AM EST Type 2 diabetes mellitus without complications ([facility]) Essential (primary) hypertension Hypo-osmolality and hyponatremia HEMOGLOBIN A1C Routine 11/19/2024 7:20 AM EST Type 2 diabetes mellitus without complications ([facility]) Anemia, unspecified from Last 3 Months or Most Recently Relevant to Health Maintenance Results * (ABNORMAL) Urinalysis with reflex microscopic and culture (02/21/2025 10:30 PM EDT) Specific [place] Urine 1.029 1.003 - 1.030 LAB URINALYSIS - AUTOMATED METHOD 02/23/2025 11:[address] [facility] pH, Urine >=9.0(A) 5.0 - 8.0 pH LAB URINALYSIS - AUTOMATED METHOD 02/23/2025 11:[address] [facility] Leukocytes, Urine Large(A) Negative LAB URINALYSIS - AUTOMATED METHOD 02/23/2025 11:[address] [facility] Nitrite, Urine Positive(A) Negative LAB URINALYSIS - AUTOMATED METHOD 02/23/2025 11:[address] [facility] Protein, Urine >=1000(A) <=Trace mg/dL LAB URINALYSIS - AUTOMATED METHOD 02/23/2025 11:[address] [facility] Glucose, Urine 250(A) Negative mg/dL LAB URINALYSIS - AUTOMATED METHOD 02/23/2025 11:[address] [facility] Ketones, Urine Negative Negative mg/dL LAB URINALYSIS - AUTOMATED METHOD 02/23/2025 11:[address] [facility] Urobilinogen , Urine 1.0 0.2 - 1.0 mg/dL LAB URINALYSIS - AUTOMATED METHOD 02/23/2025 11:[address] [facility] Bilirubin, Urine Negative Negative LAB URINALYSIS - AUTOMATED METHOD 02/23/2025 11:[address] [facility] Blood, Urine Negative Negative LAB URINALYSIS - AUTOMATED METHOD 02/23/2025 11:[address] [facility] RBC, Urine 4.0 0 - 4 /HPF LAB URINALYSIS - AUTOMATED METHOD 02/23/2025 11:[address] [facility] WBC, Urine 13.8(H) 0 - 4 /HPF LAB URINALYSIS - AUTOMATED METHOD 02/23/2025 11:[address] [facility] Squamous Epithelial, Urine >100(H) 0 - 60 /LPF LAB URINALYSIS - AUTOMATED METHOD 02/23/2025 11:[address] [facility] Crystals, Urine HEAVY TRIPLE PHOS /LPF LAB URINALYSIS - AUTOMATED METHOD 02/23/2025 11:[address] [facility] Bacteria, Urine Many(A) Negative /HPF LAB URINALYSIS - AUTOMATED METHOD 02/23/2025 11:[address] [facility] Hyaline Casts, Urine 15.0(H) 0 - 3 /LPF LAB URINALYSIS - AUTOMATED METHOD 02/23/2025 11:[address] [facility] Urine Urine specimen from urethra / Unknown Non-blood Collection / Unknown 02/21/2025 10:30 PM EDT 02/23/2025 11:14 AM EDT us Keli Dickinson MD LAB URINE ORDERABLES Final Resul t [facility] [address] [place] [address], * Hawkins urine culture tube (02/21/2025 10:30 PM EDT) Only the most recent of2 resultswithin the time period is included. Extra Tube Hold for add-ons. 02/23/2025 1:02 PM EDT [facility] Comment:Auto resulted. Urine Urine specimen from urethra / Unknown Non-blood Collection / Unknown 02/21/2025 10:30 PM EDT 02/23/2025 11:14 AM EDT Keli Dickinson MD LAB URINE ORDERABLES Final Resul t [facility] [address] [place] [address], * (ABNORMAL) Culture urine (02/21/2025 10:30 PM EDT) Only the most recent of2 resultswithin the time period is included. Culture, Urine >100,000 CFU/mL Proteus mirabilis(A ) EMMY 02/25/2025 10:20 AM EDT [facility] Comment: Edited result: Previously reported as Proteus species on 02/24/2025 at 1034 EDT. Urine Urine specimen from urethra / Unknown Non-blood Collection / Unknown 02/21/2025 10:30 PM EDT 02/23/2025 11:46 AM EDT Narrative [facility] - 02/25/2025 10:20 AM EDT [...] MICROBIOLOGY - GENERAL ORDER BOBBY Final Result [facility] [address] [place] [address], * (ABNORMAL) Urinalysis with reflex microscopic (02/07/2025 12:00 AM EDT) Only the most recent of2 resultswithin the time period is included. Specific [place] Urine 1.017 1.003 - 1.030 LAB URINALYSIS - AUTOMATED METHOD 02/07/2025 1:34 PM EDT [facility] pH, Urine 6.0 5.0 - 8.0 pH LAB URINALYSIS - AUTOMATED METHOD 02/07/2025 1:34 PM EDT [facility] Leukocytes, Urine Large(A) Negative LAB URINALYSIS - AUTOMATED METHOD 02/07/2025 1:34 PM EDT [facility] Nitrite, Urine Negative Negative LAB URINALYSIS - AUTOMATED METHOD 02/07/2025 1:34 PM EDT [facility] Protein, Urine 30(A) <=Trace mg/dL LAB URINALYSIS - AUTOMATED METHOD 02/07/2025 1:34 PM EDT [facility] Glucose, Urine Negative Negative mg/dL LAB URINALYSIS - AUTOMATED METHOD 02/07/2025 1:[address] [facility] Ketones, Urine Trace(A) Negative mg/dL LAB URINALYSIS - AUTOMATED METHOD 02/07/2025 1:[address] [facility] Urobilinogen , Urine 0.2 0.2 - 1.0 mg/dL LAB URINALYSIS - AUTOMATED METHOD 02/07/2025 1:[address] [facility] Bilirubin, Urine Negative Negative LAB URINALYSIS - AUTOMATED METHOD 02/07/2025 1:[address] [facility] Blood, Urine Trace(A) Negative LAB URINALYSIS - AUTOMATED METHOD 02/07/2025 1:[address] [facility] RBC, Urine 13.5(H) 0 - 4 /HPF LAB URINALYSIS - AUTOMATED METHOD 02/07/2025 1:[address] [facility] WBC, Urine 846.5(H) 0 - 4 /HPF LAB URINALYSIS - AUTOMATED METHOD 02/07/2025 1:[address] [facility] Squamous Epithelial, Urine >100(H) 0 - 60 /LPF LAB URINALYSIS - AUTOMATED METHOD 02/07/2025 1:[address] [facility] Bacteria, Urine Negative Negative /HPF LAB URINALYSIS - AUTOMATED METHOD 02/07/2025 1:[address] [facility] Hyaline Casts, Urine 12.0(H) 0 - 3 /LPF LAB URINALYSIS - AUTOMATED METHOD 02/07/2025 1:[address] [facility] Yeast, Urine Present(A) None /HPF LAB URINALYSIS - AUTOMATED METHOD 02/07/2025 1:[address] [facility] Urine Urine specimen obtained by clean catch procedure / Unknown 02/07/2025 02/07/2025 11:37 AM EDT us Keli Dickinson MD LAB URINE ORDERABLES Final Resul t [facility] [address] [place] [address], * (ABNORMAL) Complete blood count (02/06/2025 7:07 AM EDT) Only the most recent of3 resultswithin the time period is included. WBC 8.2 4.8 - 10.8 K/mcL LAB HEMETOLOGY METHOD 02/06/2025 11:56 AM EDT [facility] RBC 4.10 3.80 - 4.80 M/mcL LAB HEMETOLOGY METHOD 02/06/2025 11:[address] [facility] Hemoglobin 10.4(L) 11.5 - 16.0 g/dL LAB HEMETOLOGY METHOD 02/06/2025 11:[address] [facility] Hematocrit 34.0(L) 35.0 - 47.0 % LAB HEMETOLOGY METHOD 02/06/2025 11:[address] [facility] MCV 82.9 79.0 - 98.0 FL LAB HEMETOLOGY METHOD 02/06/2025 11:[address] [facility] MCH 25.4(L) 27.0 - 32.0 pcg LAB HEMETOLOGY METHOD 02/06/2025 11:[address] [facility] MCHC 30.6(L) 32.0 - 37.0 g/dL LAB HEMETOLOGY METHOD 02/06/2025 11:[address] [facility] RDW 15.9(H) 11.0 - 15.0 % LAB HEMETOLOGY METHOD 02/06/2025 11:[address] [facility] Platelets 228 130 - 400 K/mcL LAB HEMETOLOGY METHOD 02/06/2025 11:56 AM EDT [facility] MPV 11.6(H) 7.0 - 11.0 FL LAB HEMETOLOGY METHOD 02/06/2025 11:56 AM EDT [facility] NRBC 0.0 <1.0 % LAB HEMETOLOGY METHOD 02/06/2025 11:56 AM EDT [facility] NRBC Absolute 0.00 <0.10 K/mcL LAB HEMETOLOGY METHOD 02/06/2025 11:56 AM EDT [facility] Blood Venous blood specimen / Unknown Venipuncture / Unknown 02/06/2025 7:07 AM EDT 02/06/2025 10:22 AM EDT us Keli Dickinson MD LAB BLOOD ORDERABLES Final Resul t [facility] [address] [place] [address], * (ABNORMAL) Basic metabolic panel (02/06/2025 7:07 AM EDT) Only the most recent of2 resultswithin the time period is included. Sodium 135 133 - 145 mmol/L LAB CHEMISTRY METHOD 02/06/2025 12:[address] [facility] Potassium 4.4 3.5 - 5.5 mmol/L LAB CHEMISTRY METHOD 02/06/2025 12:[address] [facility] Chloride 103 96 - 110 mmol/L LAB CHEMISTRY METHOD 02/06/2025 12:[address] [facility] CO2 26 21 - 32 mmol/L LAB CHEMISTRY METHOD 02/06/2025 12:[address] [facility] Anion Gap 6 3 - 11 LAB CHEMISTRY METHOD 02/06/2025 12:[address] [facility] Glucose 58(L) 70 - 100 mg/dL LAB CHEMISTRY METHOD 02/06/2025 12:38 PM EDT [facility] BUN 17 5 - 25 mg/dL LAB CHEMISTRY METHOD 02/06/2025 12:38 PM EDT [facility] Creatinine 0.66 0.50 - 1.10 mg/dL LAB CHEMISTRY METHOD 02/06/2025 12:38 PM EDT [facility] eGFR 84 >=60 mL/min/1. 73m2 LAB CHEMISTRY METHOD 02/06/2025 12:38 PM EDT [facility] Comment:Calculation based on the??Chronic Kidney Disease Epidemiology Collaboration (CKD-EPI) equation refit??without adjustment for race. BUN/Creatinine Ratio 25.8 LAB CHEMISTRY METHOD 02/06/2025 12:38 PM EDT [facility] Calcium 8.7 8.5 - 10.5 mg/dL LAB CHEMISTRY METHOD 02/06/2025 12:38 PM EDT [facility] Blood Venous blood specimen / Unknown Venipuncture / Unknown 02/06/2025 7:07 AM EDT 02/06/2025 10:22 AM EDT Keli Dickinson MD LAB BLOOD ORDERABLES Final Resul t [facility] [address] [place] [address], * (ABNORMAL) D-Dimer (01/28/2025 3:28 PM EDT) D-Dimer, Quant (D-DU) 451(H) <=230 ng/mL DDU LAB COAGULATION METHOD 01/28/2025 4:10 PM EDT [facility] Blood Venous blood specimen / Unknown Venipuncture / Unknown 01/28/2025 3:28 PM EDT 01/28/2025 3:54 PM EDT Narrative [facility] - 01/28/2025 4:10 PM EDT D-Dimer <230 ng/mL (D-Dimer units) is the threshold for exclusion of DVT/PE. D-Dimer may be elevated in: Critically ill, severely infected, trauma patients, DIC, acute CVA, acute IA, unstable angina, AF, old age, , and smoking. D-Dimer may be decreased with: Initiation of heparin therapy and oral anticoagulants. Keli Dickinson MD LAB BLOOD ORDERABLES Final Resul t [facility] [address] [place] [address], * (ABNORMAL) Comprehensive metabolic panel (01/28/2025 3:28 PM EDT) Sodium 135 133 - 145 mmol/L LAB [facility]STR[facility] Potassium 4.2 3.5 - 5.5 mmol/L LAB CHEMISTRY METHOD 01/28/2025 4:[address] [facility] Chloride 101 96 - 110 mmol/L LAB CHEMISTRY METHOD 01/28/2025 4:[address] [facility] CO2 27 21 - 32 mmol/L LAB CHEMISTRY METHOD 01/28/2025 4:[address] [facility] Anion Gap 7 3 - 11 LAB CHEMISTRY METHOD 01/28/2025 4:[address] [facility] Glucose 338(H) 70 - 100 mg/dL LAB CHEMISTRY METHOD 01/28/2025 4:[address] [facility] BUN 15 5 - 25 mg/dL LAB CHEMISTRY METHOD 01/28/2025 4:[address] [facility] Creatinine 0.87 0.50 - 1.10 mg/dL LAB CHEMISTRY METHOD 01/28/2025 4:[address] [facility] eGFR 64 >=60 mL/min/1. 73m2 LAB CHEMISTRY METHOD 01/28/2025 4:[address] [facility] Comment:Calculation based on the??Chronic Kidney Disease Epidemiology Collaboration (CKD-EPI) equation refit??without adjustment for race. BUN/Creatinine Ratio 17.2 LAB CHEMISTRY METHOD 01/28/2025 4:30 PM EDT [facility] Calcium 8.7 8.5 - 10.5 mg/dL LAB CHEMISTRY METHOD 01/28/2025 4:30 PM EDT [facility] AST (SGOT) 14 10 - 42 unit/L LAB CHEMISTRY METHOD 01/28/2025 4:30 PM T [facility] ALT (SGPT) 13 10 - 60 unit/L LAB CHEMISTRY METHOD 01/28/2025 4:[address] [facility] Alkaline Phosphatase 95 42 - 121 unit/L LAB CHEMISTRY METHOD 01/28/2025 4:30 PM EDT [facility] Total Protein 5.7(L) 6.0 - 8.0 g/dL LAB CHEMISTRY METHOD 01/28/2025 4:30 PM EDT [facility] Albumin 2.8(L) 3.2 - 5.0 g/dL LAB CHEMISTRY METHOD 01/28/2025 4:30 PM EDT [facility] Total Bilirubin 0.4 0.0 - 1.4 mg/dL LAB CHEMISTRY METHOD 01/28/2025 4:30 PM EDT [facility] Blood Venous blood specimen / Unknown Venipuncture / Unknown 01/28/2025 3:28 PM EDT 01/28/2025 3:54 PM EDT us Keli Dickinson MD LAB BLOOD ORDERABLES Final Resul t [facility] [address] [place] [address], * (ABNORMAL) Hemoglobin A1c (11/19/2024 7:20 AM EST) Hemoglobin A1C 6.8(H) <6.5 % LAB CHEMISTRY METHOD 11/21/2024 10:[address] [facility] Mean Bld Glu Estim. 148 mg/dL LAB CHEMISTRY METHOD 11/21/2024 10:21 AM EST [facility] Blood Venous blood specimen / Unknown Venipuncture / Unknown 11/19/2024 7:20 AM EST 11/19/2024 11:06 AM EST us Keli Dickinson MD LAB BLOOD ORDERABLES Final Resul t 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
--- OUTSIDE RECORDS SUMMARY | 2025-03-11 13:05 | XMS_ITS ---
Author Organization [facility] Address [address] [place] [address] Care Team Providers Care Senior Escrow Officer Name Role Phone Kristin MAGALLANES, Janes Primary Care Provider Fernando Wall Unavailable [phone] Encounters Encounter Location Date Provider Diagnosis [facility] [address] [place] [address] 10/18/2024 Fernando Lim Plan Of Treatment No Information Progress Notes * Lisa HOLLIDAY ADOB:[birth year] (89 yo F)Acc No.[id number]:10/18/2024 Progress Note Patient:?Lisa HOLLIDAY Provider:?Fernando Lim DPM :1935???Age:88 Y???Sex:Female D ate:10/18/2024 Address[address] [id number] Pcp:Janes Foster MD Subjective: * Chief Complaints: [...] Lim DPM Date:?2023 Generated for Vii ng/Fabarg/eTransmitting on:?03/11/2025 01:04 PM EDT
--- OUTSIDE RECORDS SUMMARY | 2025-03-11 13:06 | XMS_ITS | Encounter Summary ---
Author Organization [facility] Address [address] [place] [address] Care Team Providers Care Furnace Helper Name Role Phone Keli Dickinson MD Primary Care Provider Encounter Details Date Type Department Care Team (Late st Contact Info) Description 11/11/2024 Lab Requisition [facility] - Main Lab [address] [place] [address] Marine Ryder MD [address] [place] [address] Encounter for other general examination Social History Tobacco Use Types Packs/Day Years [...] Procedure Name Priority Date/Time Associated Diagnosis Comments CBC WITH AUTO DIFFERENTIAL Routine 11/11/2024 7:00 AM EST Encounter for other general examination CBC AND DIFFERENTIAL Routine 11/11/2024 7:00 AM EST Encounter for other general examination COMPREHENSIVE METABOLIC PANEL Routine 11/11/2024 7:00 AM EST Encounter for other general examination documented in this encounter Results * (ABNORMAL) CBC auto differential (11/11/2024 7:00 AM EST) WBC 8.2 4.8 - 10.8 [facility] LAB HEMETOLOGY METHOD 11/11/2024 10:22 AM EST [facility] RBC 3.00(L) 3.80 - 4.80 M[facility] LAB HEMETOLOGY METHOD 11/11/2024 10:22 AM [facility] LAB Hemoglobin 7.7(L) 11.5 - 16.0 g/dL LAB HEMETOLOGY METHOD 11/11/2024 10:22 AM [facility] LAB Hematocrit 25.3(L) 35.0 - 47.0 % LAB HEMETOLOGY METHOD 11/11/2024 10:22 AM [facility] LAB MCV 83.8 79.0 - 98.0 FL LAB HEMETOLOGY METHOD 11/11/2024 10:22 AM [facility] LAB MCH 25.5(L) 27.0 - 32.0 pcg LAB HEMETOLOGY METHOD 11/11/2024 10:22 AM [facility] LAB MCHC 30.4(L) 32.0 - 37.0 g/dL LAB HEMETOLOGY METHOD 11/11/2024 10:22 AM [facility] LAB RDW 19.6(H) 11.0 - 15.0 % LAB HEMETOLOGY METHOD 11/11/2024 10:22 AM [facility] LAB Platelets 320 130 - 400 K/mcL LAB HEMETOLOGY METHOD 11/11/2024 10:22 AM [facility] LAB MPV 11.1(H) 7.0 - 11.0 FL LAB HEMETOLOGY METHOD 11/11/2024 10:22 AM [facility] LAB NRBC 0.0 <1.0 % LAB HEMETOLOGY METHOD 11/11/2024 10:22 AM [facility] LAB NRBC Absolute 0.00 <0.10 K/mcL LAB HEMETOLOGY METHOD 11/11/2024 10:22 AM [facility] LAB Neutrophils Relative 74.2 % LAB HEMETOLOGY METHOD 11/11/2024 10:22 AM [facility] LAB Lymphocytes Relative 13.1 % LAB HEMETOLOGY METHOD 11/11/2024 10:22 AM [facility] LAB Monocytes Relative 9.6 % LAB HEMETOLOGY METHOD 11/11/2024 10:22 AM EST [facility] LAB Eosinophils Relative 2.1 % LAB HEMETOLOGY METHOD 11/11/2024 10:22 AM [facility] LAB Basophils Relative 0.5 % LAB HEMETOLOGY METHOD 11/11/2024 10:22 AM [facility] LAB Immature Granulocytes Relative 0.5 % LAB HEMETOLOGY METHOD 11/11/2024 10:22 AM [facility] LAB Neutrophils Absolute 6.08 1.50 - 7.00 K/mcL LAB HEMETOLOGY METHOD 11/11/2024 10:22 AM [facility] LAB Lymphocytes Absolute 1.07 1.00 - 5.00 K/mcL LAB HEMETOLOGY METHOD 11/11/2024 10:22 AM [facility] LAB Monocytes Absolute 0.79 0.20 - 1.00 K/mcL LAB HEMETOLOGY METHOD 11/11/2024 10:22 AM EST [facility] LAB Eosinophils Absolute 0.17 0.00 - 0.50 K/mcL LAB HEMETOLOGY METHOD 11/11/2024 10:22 AM [facility] LAB Basophils Absolute 0.04 0.00 - 0.20 K/mcL LAB HEMETOLOGY METHOD 11/11/2024 10:22 AM [facility] LAB Immature Granulocytes Absolute 0.04(H) 0.00 - 0.03 K/mcL LAB HEMETOLOGY METHOD 11/11/2024 10:22 AM [facility] LAB Blood Venous blood specimen / Unknown Venipuncture / Unknown 11/11/2024 7:00 AM EST 11/11/2024 9:18 AM EST us Marine Ryder MD LAB BLOOD ORDERABLES Final Resu lt [facility] [address] [place] [address], [place] [phone] * (ABNORMAL) Comprehensive metabolic panel (11/11/2024 7:00 AM EST) Sodium 133 133 - 145 mmol/L LAB CHEMISTRY METHOD 11/11/2024 10:36 AM [facility] Potassium 4.9 3.5 - 5.5 mmol/L LAB CHEMISTRY METHOD 11/11/2024 10:36 AM [facility] Chloride 99 96 - 110 mmol/L LAB CHEMISTRY METHOD 11/11/2024 10:36 AM [facility] CO2 25 21 - 32 mmol/L LAB CHEMISTRY METHOD 11/11/2024 10:36 AM [facility] Anion Gap 9 3 - 11 LAB CHEMISTRY METHOD 11/11/2024 10:36 AM [facility] LAB Glucose 255(H) 70 - 100 mg/dL LAB CHEMISTRY METHOD 11/11/2024 10:36 AM [facility] BUN 28(H) 5 - 25 mg/dL LAB CHEMISTRY METHOD 11/11/2024 10:36 AM [facility] LAB Creatinine 0.83 0.50 - 1.10 mg/dL LAB CHEMISTRY METHOD 11/11/2024 10:36 AM [facility] LAB eGFR 67 >=60 mL/min/1. 73m2 LAB CHEMISTRY METHOD 11/11/2024 10:36 AM [facility] LAB Comment:Calculation based on the??Chronic Kidney Disease Epidemiology Collaboration (CKD-EPI) equation refit??without adjustment for race. BUN/Creatinine Ratio 33.7 LAB CHEMISTRY METHOD 11/11/2024 10:36 AM [facility] LAB Calcium 8.0(L) 8.5 - 10.5 mg/dL LAB CHEMISTRY METHOD 11/11/2024 10:36 AM [facility] LAB AST (SGOT) 23 10 - 42 unit/L LAB CHEMISTRY METHOD 11/11/2024 10:36 AM [facility] ALT (SGPT) 14 10 - 60 unit/L LAB CHEMISTRY METHOD 11/11/2024 10:36 AM EST [facility] Alkaline Phosphatase 87 42 - 121 unit/L LAB CHEMISTRY METHOD 11/11/2024 10:36 AM [facility] Total Protein 5.2(L) 6.0 - 8.0 g/dL LAB CHEMISTRY METHOD 11/11/2024 10:36 AM EST [facility] Albumin 2.3(L) 3.2 - 5.0 g/dL LAB CHEMISTRY METHOD 11/11/2024 10:36 AM [facility] LAB Total Bilirubin 0.9 0.0 - 1.4 mg/dL LAB CHEMISTRY METHOD 11/11/2024 10:36 AM [facility] LAB Blood Venous blood specimen / Unknown Venipuncture / Unknown 11/11/2024 7:00 AM EST 11/11/2024 9:18 AM EST us Marine Ryder MD LAB BLOOD ORDERABLES Final Resu lt [facility] [address] [place] [address], documented in this encounter Visit Diagnoses Diagnosis Encounter for other general examination documented in this encounter Additional Health 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
--- OUTSIDE RECORDS SUMMARY | 2025-03-11 13:06 | XMS_ITS | Encounter Summary ---
Author Organization [facility] Address [address] [place] [address] Care Team Providers Care Gas Stove Servicer Helper Name Role Phone Keli Dickinson MD Primary Care Provider [phone] Encounter Details Date Type Department Care Team (Late st Contact Info) Description 11/15/2024 Lab Requisition [facility] Lab [address] [facility] [place] [address] Marine Ryder MD [address] [place] [address] Encounter for other general examination Social History [...] Procedure Name Priority Date/Time Associated Diagnosis Comments GASTROINTESTINAL PATHOGENS BY PCR Routine 11/15/2024 9:00 AM EST Encounter for other general examination documented in this encounter Results * Gastrointestinal pathogens molecular study (11/15/2024 9:00 AM EST) Campylobacter Detection by PCR Not Detected Not Detected LAB MICROBIOLOGY METHOD 4 2:43 PM [facility] Plesiomonas shigelloides Detection by PCR Not Detected Not Detected LAB MICROBIOLOGY METHOD 4 2:43 PM [facility] Salmonella Detection by PCR Not Detected Not Detected LAB MICROBIOLOGY METHOD 4 2:43 PM [facility] Vibrio Detection by PCR Not Detected Not Detected LAB MICROBIOLOGY METHOD 4 2:43 PM [facility] Vibrio cholerae Detection by PCR Not Detected Not Detected LAB MICROBIOLOGY METHOD 4 2:43 PM [facility] Yersinia enterocolitica Detection by PCR Not Detected Not Detected LAB MICROBIOLOGY METHOD 4 2:43 PM [facility] Enteroaggregative E coli EAEC Detection by PCR Not Detected Not Detected LAB MICROBIOLOGY METHOD 4 2:43 PM [facility] Enteropathogenic E coli EPEC Detection Not Detected Not Detected LAB MICROBIOLOGY METHOD 4 2:43 PM [facility] Enterotoxigenic E coli ETEC LTST Detection Not Detected Not Detected LAB MICROBIOLOGY METHOD 4 2:43 PM [facility] Shiga-like toxin producing E coli STEC STX1 STX2 Det Not Detected Not Detected LAB MICROBIOLOGY METHOD 4 2:43 PM [facility] Shigella Enteroinvasive E coli EIEC Detection Not Detected Not Detected LAB MICROBIOLOGY METHOD 4 2:43 PM [facility] Cryptosporidium Detection by PCR Not Detected Not Detected LAB MICROBIOLOGY METHOD 4 2:43 PM [facility] Cyclospora cayetanensis Detection by PCR Not Detected Not Detected LAB MICROBIOLOGY METHOD 4 2:43 PM [facility] Entamoeba histolytica Detection by PCR Not Detected Not Detected LAB MICROBIOLOGY METHOD 4 2:43 PM [facility] Giardia lamblia Detection by PCR Not Detected Not Detected LAB MICROBIOLOGY METHOD 4 2:43 PM [facility] Adenovirus F 40 41 Detection by PCR Not Detected Not Detected LAB MICROBIOLOGY METHOD 4 2:43 PM [facility] Astrovirus Detection by PCR Not Detected Not Detected LAB MICROBIOLOGY METHOD 4 2:43 PM [facility] Norovirus GI GII Detection by PCR Not Detected Not Detected LAB MICROBIOLOGY METHOD 4 2:43 PM EST [facility] Sapovirus Detection by PCR Not Detected Not Detected LAB MICROBIOLOGY METHOD 4 2:43 PM [facility] Rotavirus A Detection by PCR Not Detected Not Detected LAB MICROBIOLOGY METHOD 4 2:43 PM [facility] Stool Rectum structure / Unknown 11/15/2024 9:00 AM EST 11/15/2024 12:06 PM EST [facility] LAB - 11/15/2024 2:43 PM EST PCR testing is much more sensitive than traditional techniques and allows for the detection of low numbers of stool pathogens. The clinical correlation of PCR results with the need for treatment and clinical outcomes has not been established. Therefore the results of PCR testing for stool pathogens must be taken into clinical context when making treatment decisions. This is a diagnostic test only, repeat testing for cure is not advised. You may consider infectious disease consult for additional guidance. 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
--- OUTSIDE RECORDS SUMMARY | 2025-03-11 13:06 | XMS_ITS | Data Portability ---
Author Organization [place] [facility] Address [address] [place] [phone] Care Team Providers Care Radio Personality Name Role Phone PHILIPP OVIEDO Primary Care Provider [facility] OTHER [phone] Assessment Encounter Date Assessment Date Assessment LastModified by Organization Details LastModified Time 11/30/2018 11/30/2018 Overview/History : 83-year-old female, who is new to [facility], with a past medical history includes hypertension, [...] I have accessed patient records on the [employer]. This information was pertinent in my medical decision making today. Time On Scene with Patient: 00:29:06 [email or web address] Not available 11/30/2018 20:42:40 08/09/2020 08/09/2020 Overview/History: This is an 84-year-old female that is known to [facility] but new [facility] this provider[facility] [...] did discuss with the patient's nurse that [facility] would check lab work to evaluate her, no indication for IV fluids at this time. I also discussed that [facility] does not carry insulin and that [...] after care of this patient according to [facility] infection prevention protocols. Lab Results BMP + ionized calcium, serum or plasma glu: 387mg/dL ref: 70-105 BUN: 36mg/dL ref: 8-26 crea: 1.0mg/dL ref: 0.6-1.3 Na: 131mmol/L ref: 138-146 K: 4.9mmol/L ref: 3.5-4.9 cL: 95mmol/L ref: 98-109 TCO2: 21mmol/L ref: 24-29 angap: 20mmol/L ref: 10-20 ica: 1.21mmol/L ref: 1.12-1.32 HCT: 40%pcv ref: 37-47 Hb: 13.6g/dL ref: 12-17 Time On Scene with Patient: 00:48:48 [email or web address] Not available 08/09/2020 21:29:37 Plan of Treatment Reminders Order Date Submit Date Provider Last Modified By Organization Details Last Modified Time Details Appointments None recorded. Lab BMP + ionized calcium, serum or plasma 2019 020 [facility], [address], [place], [address], 0 16:03:38 Referral None recorded. Procedures None recorded. Surgeries None recorded. Imaging None recorded. Medication Orders diclofenac 1 % topical gel 2019 020 INTERFACE [id number], [address] [place], [address], 0 16:10:01 Patient TargetsNo targets recorded. Patient Instructions Encounter Date Encounter Id Patient Instructions Last Modified By Organization Details Last Modified Time 11/30/2018 [id number] No evidence of a ny objects in your ear. Follow up with your ENT/PCP as needed. Thank you for your visit with [facility] today. We cannot always find the exact [...] in your condition between 8am-10pm, please call [facility] at [phone] to help navigate your care. Not available 11/30/2018 19:46:27 08/09/2020 [id number] WE CAME TO SEE Y OU TODAY [...] ROOM. Thank you for your visit with [facility] today. We cannot always find the exact [...] between 8am-10pm, please call [facility] at [phone] to help navigate your care. [email or web address] Not available 08/09/2020 16:09:54 Reason for Referral None Reported. Results Created Date Observation Date Name Description Value Unit Range Abnormal Flag Note LastModifiedBy Organization Detail LastModifiedTime 08/09/2008/09/2020 BMP + ioniz ed calci um, serum or plasm a glu 387 mg/dL 70-105 Not Available [facility] [address] [place], [address], 08/09/2020 16:03:38 08/09/20 20 08/09/2020 BMP + ioniz ed calci um, serum or plasm a BUN 36 mg/dL 8-26 Not Available [facility] [address] [place], [address], 08/09/2020 16:03:38 08/09/20 20 08/09/2020 BMP + ioniz ed calci um, serum or plasm a crea 1.0 mg/dL 0.6-1. 3 Not Available [facility] [address] [place], [address], 08/09/2020 16:03:38 08/09/20 20 08/09/2020 BMP + ioniz ed calci um, serum or plasm a Na 131 mmol/ L 138-14 6 Not Available [facility] [address] [place], [address], 08/09/2020 16:03:38 08/09/20 20 08/09/2020 BMP + ioniz ed calci um, serum or plasm a K 4.9 mmol/ L 3.5-4. 9 Not Available [address], [address], 08/09/2020 16:03:38 08/09/20 20 08/09/2020 BMP + ioniz ed calci um, serum or plasm a cL 95 mmol/ L 98-109 Not Available [address], [address], 08/09/2020 16:03:38 08/09/20 20 08/09/2020 BMP + ioniz ed calci um, serum or plasm a TCO2 21 mmol/ L 24- Not Available [address], [address], 08/09/2020 16:03:38 08/09/20 20 08/09/2020 BMP + ioniz ed calci um, serum or plasm a angap 20 mmol/ L 10-20 Not Available [address], [address], 08/09/2020 16:03:38 08/09/20 20 08/09/2020 BMP + ioniz ed calci um, serum or plasm a ica 1.21 mmol/ L 1.12-1 .32 Not Available [address], [address], 08/09/2020 16:03:38 08/09/20 20 08/09/2020 BMP + ioniz ed calci um, serum or plasm a HCT 40 %pcv 37-47 Not Available [address], [address], 08/09/2020 16:03:38 08/09/20 20 08/09/2020 BMP + ioniz ed calci um, serum or plasm a Hb 13.6 g/dL 12-17 Not Available [address], [address], 08/09/2020 16:03:38 Result Notes None recorded. Procedures Surgical History Date Name Laterality Status Provider Name and Address Organization Details Recorded Time 08/09/20 20 Venipuncture - DH completed DERRELL SANTANA NP [address], [place], [address], [place] [facility] 08/09/2020 18:34:12 Imaging Results None recorded. Procedure [...] Not Available Not Avai lable Fluad Quad 2020-9439(6 5yr up)(PF) 60 mcg (15 mcg x [...] Smoker DOMENICO JOHN, KAELYN [address], [place], [address], [place] [facility] 11/30/2018 18:10:06 Do You Have An Advance Directive? Yes Information not available 11/30/2018 Within The Past 12 Months, Has It Happened That The Food You Bought Just Didn't Last And You Didn't Have Money To Get More. Normal [place] Information not available 11/30/2018 Within The Past 12 Months, Have You Worried That Your Food Would Run Out Before You Got Money To Buy More. No: Trouble Affording Healthy Foods [facility] – Information not available 11/30/2018 Fall Risk: Do You Feel Unsteady When Standing Or Walking? No [facility] – Information not available 11/30/2018 Marital Status [facility] – Information not available 11/30/2018 What Was The Date Of Your Most Recent Tobacco Screening? 11/30/2018 Information not available 06/09/2019 How Much Tobacco Do You Smoke? 1 PPW [facility] – Information not available 11/30/2018 How Many Years Have You Smoked Tobacco? 15 [facility] – Information not available 11/30/2018 Sex: Unknown Functional Status None recorded. Mental Status None recorded. Family History Relationship Description Onset Age of this Age Resolved Age Notes LastModified by Organization Details LastModified Time Mother Coronary arterioscler osis [email or web address] Not available 11/30 18:09:56 Medical History Condition Response Diabetes Y Coronary Artery Disease N High Cholesterol Y Pulmonary Embolism N Cancer N Hypertension Y Stroke N Asthma N COPD N Depression N Kidney Disease N Gynecological HistoryNo gynecological history recorded. Obstetrics History GPAL:G 0 P 0 0 0 0 Past Encounters Encounter ID Performer Location Encounter Start Date Encounter Closed Date Diagnosis/Indication Diagnosis SNOMED-CT Code Diagnosis ICD10 Code Diagnosis Note [id number] DOMENICO JOHN NP [facility] [address] [place] [address] 11/30/2018 17:52:50 12/01/2018 16:36:34 Foreign body in ear 03394576 T16.1XXA [id number] DERRELL SANTANA NP [facility] [address] [facility] [place] [address] 08/09/2020 15:21:51 08/10/2020 14:27:21 Hyperglycemia 51942641 R73.9 Right side sciatica 3202 [id number] 44443 M54.31 Health Concerns Section Related Observation LastModified by Organization Detai ls LastModified Time None Recorded Concern Status LastModified by Organization Details LastModified Time None Recorded Advance Directives Directive Y: Payers Encounter Date Sequence Insurance Name Policy Number Policy Genao Covered Member ID Genao Member ID Guarantor Name 11/30/2018 1 MEDICARE B-[place]: [facility] Lisa Holliday [id number] Lisa Gregoryjose 11/30/2018 2 [facility] (MEDICARE SUPPLEMENT) Lisa Holliday [id number] Lisa Holliday 08/09/2020 2 [facility] (MEDICARE SUPPLEMENT) Lisa Holliday [id number] Lisa Holliday 08/09/2020 1 MEDICARE B-[place]: [facility] Lisa Holliday [id number] Lisa Holliday Notes Date Note Type Note Provider Name and Address Organization Details Recorded Time 11/30/2018 text/html 83-year-old female, who is new to [facility] was evaluated for possibility of foreign body in the right ear. The patient is hard of hearing and wears hearing aids to both years. While cleaning her hearing aids earlier she felt as if the silicone earpiece became embedded in her ear canal. She denies any other complaints. DOMENICO JOHN NP [address] [place], [address], [place] [facility] 12/08/2018 19:26:11 08/09/2020 text/html This is an 84-year-old female that is known to [facility] but new to this provider. She has a medical history significant for diabetes, hypertension and hyperlipidemia. The foster care case manager from her PCP office had contacted [facility] because the patient had called in [...] both the nurse and the patient that [facility] does not carry insulin nor do we [...] cleaned out recently. DERRELL SANTANA, KAELYN [address], [place], [address], [place] [facility] 08/09/2020 21:29:50 OBGyn Episode No OBEpisode recorded.
--- OUTSIDE RECORDS SUMMARY | 2025-03-11 13:06 | XMS_ITS | Encounter Summary ---
Author Organization [facility] Address [address] [place] [address] Care Team Providers Care Annual Giving Director Name Role Phone Keli Dickinson MD Primary Care Provider [phone] Encounter Details Date Type Department Care Team (Late st Contact Info) Description 12/01/2024 Lab Requisition [facility] Lab [address] [place] [address] Keli Dickinson MD [address] [place] [address] Other osteonecrosis, unspecified femur (CMS/HCC V24, CMS/HCC V28) Social History Tobacco Use Types Packs/Day Years [...] Diagnosis Comments CBC WITH AUTO DIFFERENTIAL Routine 12/01/2024 8:38 AM EST Other osteonecrosis, unspecified femur (CMS/HCC) CBC AND DIFFERENTIAL Routine 12/01/2024 8:38 AM EST Other osteonecrosis, unspecified femur (CMS/HCC) documented in this encounter Results * (ABNORMAL) CBC auto differential (12/01/2024 8:38 AM EST) WBC 7.1 4.8 - 10.8 K/[facility] LAB HEMETOLOGY METHOD 12/01/2024 12:50 PM EST [facility] LAB RBC 3.70(L) 3.80 - 4.80 /[facility] LAB HEMETOLOGY METHOD 12/01/2024 12:50 PM [facility] LAB Hemoglobin 9.7(L) 11.5 - 16.0 g/dL LAB HEMETOLOGY METHOD 12/01/2024 12:50 PM [facility] LAB Hematocrit 30.8(L) 35.0 - 47.0 % LAB HEMETOLOGY METHOD 12/01/2024 12:50 PM [facility] LAB MCV 83.2 79.0 - 98.0 FL LAB HEMETOLOGY METHOD 12/01/2024 12:50 PM [facility] LAB MCH 26.2(L) 27.0 - 32.0 pcg LAB HEMETOLOGY METHOD 12/01/2024 12:50 PM [facility] LAB MCHC 31.5(L) 32.0 - 37.0 g/dL LAB HEMETOLOGY METHOD 12/01/2024 12:50 PM [facility] LAB RDW 17.7(H) 11.0 - 15.0 % LAB HEMETOLOGY METHOD 12/01/2024 12:50 PM [facility] LAB Platelets 462(H) 130 - 400 K/mcL LAB HEMETOLOGY METHOD 12/01/2024 12:50 PM [facility] LAB MPV 10.3 7.0 - 11.0 FL LAB HEMETOLOGY METHOD 12/01/2024 12:50 PM [facility] LAB NRBC 0.0 <1.0 % LAB HEMETOLOGY METHOD 12/01/2024 12:50 PM [facility] LAB NRBC Absolute 0.00 <0.10 K/mcL LAB HEMETOLOGY METHOD 12/01/2024 12:50 PM [facility] LAB Neutrophils Relative 68.7 % LAB HEMETOLOGY METHOD 12/01/2024 12:50 PM [facility] LAB Lymphocytes Relative 20.0 % LAB HEMETOLOGY METHOD 12/01/2024 12:50 PM EST [facility] LAB Monocytes Relative 8.4 % LAB HEMETOLOGY METHOD 12/01/2024 12:50 PM [facility] LAB Eosinophils Relative 1.6 % LAB HEMETOLOGY METHOD 12/01/2024 12:50 PM [facility] LAB Basophils Relative 0.9 % LAB HEMETOLOGY METHOD 12/01/2024 12:50 PM [facility] LAB Immature Granulocytes Relative 0.4 % LAB HEMETOLOGY METHOD 12/01/2024 12:50 PM [facility] LAB Neutrophils Absolute 4.85 1.50 - 7.00 K/mcL LAB HEMETOLOGY METHOD 12/01/2024 12:50 PM [facility] LAB Lymphocytes Absolute 1.41 1.00 - 5.00 K/mcL LAB HEMETOLOGY METHOD 12/01/2024 12:50 PM [facility] LAB Monocytes Absolute 0.59 0.20 - 1.00 K/mcL LAB HEMETOLOGY METHOD 12/01/2024 12:50 PM [facility] LAB Eosinophils Absolute 0.11 0.00 - 0.50 K/mcL LAB HEMETOLOGY METHOD 12/01/2024 12:50 PM [facility] LAB Basophils Absolute 0.06 0.00 - 0.20 K/mcL LAB HEMETOLOGY METHOD 12/01/2024 12:50 PM [facility] LAB Immature Granulocytes Absolute 0.03 0.00 - 0.03 K/mcL LAB HEMETOLOGY METHOD 12/01/2024 12:50 PM [facility] LAB Blood Venous blood specimen / Unknown Venipuncture / Unknown 12/01/2024 8:38 AM EST 12/01/2024 10:08 AM EST us Keli Dickinson MD LAB BLOOD ORDERABLES Final Resul t [facility] LAB [address] [place] [address], documented in this encounter Visit Diagnoses Diagnosis Other osteonecrosis, unspecified femur (CMS/[facility] V24, CMS/[facility] V28) documented in this encounter Additional Health Concerns 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
--- OUTSIDE RECORDS SUMMARY | 2025-03-11 13:06 | XMS_ITS | Encounter Summary ---
Author Organization [facility] Address [address] [place] [address] Care Team Providers Care Strawhat Sizer Name Role Phone Keli Dickinson MD Primary Care Provider [phone] Encounter Details Date Type Department Care Team (Late st Contact Info) Description 11/07/2024 Lab Requisition [facility] Lab [address] [facility] [place] [address] Marine Ryder MD [address] [place] [address] Encounter for other general examination Social History [...] Procedure Name Priority Date/Time Associated Diagnosis Comments BASIC METABOLIC PANEL Routine 11/07/2024 5:40 AM EST Encounter for other general examination documented in this encounter Results * (ABNORMAL) Basic metabolic panel (11/07/2024 5:40 AM EST) Sodium 133 133 - 145 mmol/L LAB CHEMISTRY METHOD 11/07/2024 11:24 AM EST [facility] LAB Potassium 4.8 3.5 - 5.5 mmol/L LAB CHEMISTRY METHOD 11/07/2024 11:24 AM EST [facility] LAB Chloride 97 96 - 110 mmol/L LAB CHEMISTRY METHOD 11/07/2024 11:24 AM EST [facility] LAB CO2 29 21 - 32 mmol/L LAB CHEMISTRY METHOD 11/07/2024 11:24 AM EST [facility] LAB Anion Gap 7 3 - 11 LAB CHEMISTRY METHOD 11/07/2024 11:24 AM [facility] LAB Glucose 199(H) 70 - 100 mg/dL LAB CHEMISTRY METHOD 11/07/2024 11:24 AM [facility] LAB BUN 22 5 - 25 mg/dL LAB CHEMISTRY METHOD 11/07/2024 11:24 AM [facility] LAB Creatinine 0.73 0.50 - 1.10 mg/dL LAB CHEMISTRY METHOD 11/07/2024 11:24 AM [facility] LAB eGFR 79 >=60 mL/min/1. 73m2 LAB CHEMISTRY METHOD 11/07/2024 11:24 AM [facility] LAB Comment:Calculation based on the??Chronic Kidney Disease Epidemiology Collaboration (CKD-EPI) equation refit??without adjustment for race. BUN/Creatinine Ratio 30.1 LAB CHEMISTRY METHOD 11/07/2024 11:24 AM [facility] LAB Calcium 8.2(L) 8.5 - 10.5 mg/dL LAB CHEMISTRY METHOD 11/07/2024 11:24 AM [facility] LAB Blood Venous blood specimen / Unknown Venipuncture / Unknown 11/07/2024 5:40 AM EST 11/07/2024 9:22 AM EST us Marine Ryder MD LAB BLOOD ORDERABLES Final Resu lt [facility] LAB [address] [place] [address], documented in this encounter Visit Diagnoses Diagnosis Encounter for other general examination documented in this encounter Additional Health Concerns Infection Onset Date Last Indicated Resolved Time Gastrointestinal Rule-Out 11/15/2024 11/15/2024 2:43 PM EST 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
--- OUTSIDE RECORDS SUMMARY | 2025-03-11 13:06 | XMS_ITS | Encounter Summary ---
[facility] Address [address] [place] [address] Care Team Providers Care Eight Section Blower Name Role Phone Keli Dickinson MD Primary Care Provider [phone] Encounter Details Date Type Department Care Team (Late st Contact Info) Description 11/15/2024 Lab Requisition [facility] Lab [address] [place] [address] Marine Ryder MD [address] [place] [address] Encounter for other general examination Social History [...] Associated Diagnosis Comments COMPLETE BLOOD COUNT Routine 11/15/2024 4:57 AM EST Encounter for other general examination BASIC METABOLIC PANEL Routine 11/15/2024 4:57 AM EST Encounter for other general examination documented in this encounter Results * (ABNORMAL) Complete blood count (11/15/2024 4:57 AM EST) WBC 9.1 4.8 - 10.8 K/mcL LAB HEMETOLOGY METHOD 11/15/2024 10:33 AM EST [facility] LAB RBC 3.20(L) 3.80 - 4.80 M/mcL LAB HEMETOLOGY METHOD 11/15/2024 10:33 AM EST [facility] LAB Hemoglobin 8.1(L) 11.5 - 16.0 g/dL LAB HEMETOLOGY METHOD 11/15/2024 10:33 AM [facility] LAB Hematocrit 26.4(L) 35.0 - 47.0 % LAB HEMETOLOGY METHOD 11/15/2024 10:33 AM [facility] LAB MCV 83.5 79.0 - 98.0 FL LAB HEMETOLOGY METHOD 11/15/2024 10:33 AM [facility] LAB MCH 25.6(L) 27.0 - 32.0 pcg LAB HEMETOLOGY METHOD 11/15/2024 10:33 AM [facility] LAB MCHC 30.7(L) 32.0 - 37.0 g/dL LAB HEMETOLOGY METHOD 11/15/2024 10:33 AM [facility] LAB RDW 20.1(H) 11.0 - 15.0 % LAB HEMETOLOGY METHOD 11/15/2024 10:33 AM [facility] LAB Platelets 380 130 - 400 K/mcL LAB HEMETOLOGY METHOD 11/15/2024 10:33 AM [facility] LAB MPV 10.6 7.0 - 11.0 FL LAB HEMETOLOGY METHOD 11/15/2024 10:33 AM [facility] LAB NRBC 0.0 <1.0 % LAB HEMETOLOGY METHOD 11/15/2024 10:33 AM [facility] LAB NRBC Absolute 0.00 <0.10 K/mcL LAB HEMETOLOGY METHOD 11/15/2024 10:33 AM [facility] LAB Blood Venous blood specimen / Unknown Venipuncture / Unknown 11/15/2024 4:57 AM EST 11/15/2024 9:39 AM EST us Marine Ryder MD LAB BLOOD ORDERABLES Final Resu lt [facility] LAB [address] [place] [address], * (ABNORMAL) Basic metabolic panel (11/15/2024 4:57 AM EST) Sodium 135 133 - 145 mmol/L LAB CHEMISTRY METHOD 11/15/2024 10:55 AM [facility] LAB Potassium 4.6 3.5 - 5.5 mmol/L LAB CHEMISTRY METHOD 11/15/2024 10:55 AM [facility] LAB Chloride 104 96 - 110 mmol/L LAB CHEMISTRY METHOD 11/15/2024 10:55 AM [facility] LAB CO2 25 21 - 32 mmol/L LAB CHEMISTRY METHOD 11/15/2024 10:55 AM [facility] LAB Anion Gap 6 3 - 11 LAB CHEMISTRY METHOD 11/15/2024 10:55 AM [facility] LAB Glucose 101(H) 70 - 100 mg/dL LAB CHEMISTRY METHOD 11/15/2024 10:55 AM [facility] LAB BUN 31(H) 5 - 25 mg/dL LAB CHEMISTRY METHOD 11/15/2024 10:55 AM [facility] LAB Creatinine 0.88 0.50 - 1.10 mg/dL LAB CHEMISTRY METHOD 11/15/2024 10:55 AM [facility] LAB eGFR 63 >=60 mL/min/1. 73m2 LAB CHEMISTRY METHOD 11/15/2024 10:55 AM [facility] LAB Comment:Calculation based on the??Chronic Kidney Disease Epidemiology Collaboration (CKD-EPI) equation refit??without adjustment for race. BUN/Creatinine Ratio 35.2 LAB CHEMISTRY METHOD 11/15/2024 10:55 AM [facility] LAB Calcium 8.3(L) 8.5 - 10.5 mg/dL LAB CHEMISTRY METHOD 11/15/2024 10:55 AM [facility] LAB Blood Venous blood specimen / Unknown Venipuncture / Unknown 11/15/2024 4:57 AM EST 11/15/2024 9:39 AM EST us Marine Ryder MD LAB BLOOD ORDERABLES Final Resu lt 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
--- OUTSIDE RECORDS SUMMARY | 2025-03-11 13:06 | XMS_ITS | Data Portability ---
Author Organization [place] [facility] Address [address] [address] Care Team Providers Care Commissioning Agent Name Role Phone PHILIPP OVIEDO Primary Care [...] Recorded Time Impacted cerumen in right ear [id number] Active 2021 Impacted cerumen, right ear; Note: Date Diagnosed : 07/14/2022 1:28 PM (H61.21) Not Available [facility] 4 02:[facility]09 Sensorine ural hearing loss of bilateral ears [id number] Active 2015 Sensorine ural hearing loss, bilateral ; Note: Date Diagnosed : 6 1:22 PM (H90.3) Not Available [facility] 4 02:40:08 Otitis media of left ear 09213429912 58673 Active 2019 Otitis media, unspecifi ed, left ear; Note: Date Diagnosed : 03/22/2020 9:49 AM (H66.92) Not Available [facility] 4 02:40:08 Impacted cerumen of bilateral ears 83654947240 25754 Active 2015 Impacted cerumen, bilateral ; Note: Date Diagnosed : 6 12:21 PM (H61.23) Not Available [facility] 4 02:40:14 Impacted cerumen 13560925 Active 2013 Impacted cerumen; CMS Risk: low risk CMS Treatment : new problem (to examiner) : no additiona l workup planned Not Available [facility] 4 02:40:16 Otorrhea of left ear 78097751117 64687 Active 2019 Otorrhea, left ear; Note: Date Diagnosed : 04/23/2020 3:37 PM (H92.12) Not Available [facility] 4 02:40:13 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 Procedures Surgical History Date Name Laterality Status Provider Name and Address Organization Details Recorded Time 4 Cerumen removal without microscope bilat completed CATHERINE DESAI PA-C [address] [place] [address], [id number] 07/26/2024 11:54:29 Imaging Results None recorded. Procedure Notes None recorded. Medical Equipment None Reported. Medications Name Sig Start Date Stop Date Status Note LastModified by Organization Details LastModified Time nifedipin e ER 30 mg tablet,ex tended release 24 hr 03/21 completed Medicati on ID: [id number] Du ration Value: 90 Reason: () Brand Name: nifedipi ne Send Method: E-Prescr ibed Sub s Allowed: subs OK Speci al Instruct ion: TAKE 1 TABLET BY MOUTH EVERY DAY Medi [facility] nericNam e: nifedipi ne Not Available Not Available Not Available amoxicill in 500 mg capsule TAKE 4 CAPSULES BY MOUTH ONE HOUR PRIOR TO DENTAL PROCEDUR E active Not Available Not Available No t Available metformin 500 mg tablet 03/15 completed Medicati on ID: [id number] D uration Value: 90 Brand Name: metformi n Send Method: E-Prescr ibed Sub s Allowed: subs OK [facility] : metformi n Not Available Not Available Not Available lisinopri l 20 mg tablet active Not Available Not Available Not Available clonazepa m 0.5 mg tablet 04/23 completed Medicati on ID: [id number] D uration Value: 15 Reason: () Brand Name: clonazep am Send Method: E-Prescr ibed Sub s Allowed: subs OK Medic [facility] ericName : clonazep am Not Available Not Available Not Available Lantus U-100 Insulin 100 unit/mL subcutane ous solution 04/23 completed Medicati on ID: [id number] Du ration Value: 56 Reason: () Brand Name: Lantus U-100 Insulin Send Method: E-Prescr ibed Sub s Allowed: subs OK Speci al Instruct ion: INJECT 30 - 38 UNITS SUBCUTAN EOUSLY OR DIRECTED BY MD [facility]ic[facility] : Lantus U-100 Insulin Not Available Not Available Not Available levothyro xine 100 mcg tablet 03/15 completed Medicati on ID: [id number] D uration Value: 90 Brand Name: levothyr oxine Se nd Method: E-Prescr ibed Sub s Allowed: subs OK Medic [facility] ericName : levothyr oxine Not Available Not Available Not Available ofloxacin 0.3 % ear drops 03/15 completed Medicati on ID: [id number] D uration Value: 10 Brand Name: ofloxaci n Send Method: E-Prescr ibed Sub s Allowed: subs OK Medic [facility] ericName : ofloxaci n Not [...] 3 drop 04/23 completed Medicati on ID: [id number] D uration Value: 14 Prescri bed By Name: Clara perez MD Brand Name: tobramyc in-dexam ethasone Send Method: E-Prescr ibed Sub s Allowed: subs OK Speci al Instruct ion: apply to affected ear Medi cationGe nericNam e: tobramyc in-dexam ethasone Not Available Not Available Not Available neomycin- polymyxin -hydrocor t 3.5 mg-10,000 unit/mL-1 % ear drops,ester p 03/21 completed Medicati on ID: [id number] Du ration Value: 30 Reason: () Brand [...] topical gel 03/15 completed Medicati on ID: [id number] B rand Name: diclofen ac sodium S end Method: E-Prescr ibed Sub s Allowed: subs OK Medic at[facility]Gen ericName : diclofen ac sodium Not Available Not Available Not Available Arexvy (PF) 120 mcg/0.5 mL IM suspensio n active Medicati on ID: [id number] B rand Name: Audra (VELASQUEZ) Billy d Method: E-Prescr ibed Sub s Allowed: subs OK Medic ationGen ericName : Audra (PF) Not Available Not Available Not Available Vitals Date Recorded Body height Body mass index (BMI) Body weight Provider Name and Address Organization Details Last Updated DateTime 07/26/2024 157.48 cm 30.7 kg/m2 95184.52 g Donny Sarkar [place] [facility] 07/26/2024 11:16:48 Social History None recorded. Functional Status None recorded. Mental Status None recorded. Family History Nothing Reported. Medical History No medical history recorded. Gynecological HistoryNo gynecological history recorded. Obstetrics History GPAL:G 0 P 0 0 0 0 Past Encounters Encounter ID Performer Location Encounter Start Date Encounter Closed Date Diagnosis/Indication Diagnosis SNOMED-CT Code Diagnosis ICD10 Code Diagnosis Note [id number] RUIZ CROW MD [facility] [address] [address] 07/26/2024 11:12:02 07/26/2024 11:56:27 Impacted cerumen of bilateral ears [id number] H61.23 Health Concerns Section Related Observation LastModified by Organization Detai ls LastModified Time None Recorded Concern Status LastModified by Organization Details LastModified Time None Recorded Advance Directives Directive None Recorded Payers Encounter Date Sequence Insurance Name Policy Number Policy Genao Covered Member ID Genao Member ID Guarantor Name 07/26/2024 1 [place] [employer] Lisa Holliday [id number] Lisa Holliday 07/26/2024 2 [employer] - PLAN 1 (MEDICARE SUPPLEMENT) [id number] Lisa Holliday [id number] Lisa Holliday Notes Date Note Type Note Provider Name and Address Organization Details Recorded Time 07/26/2024 text/html 88-year-old female presents for evaluation of the ears. She reports that her hearing is very poor despite her hearing aids. She notes it has been a very long time since she had an audiogram. She denies otalgia, otorrhea, and tinnitus. RUIZ CROW MD [address] [place] [address], [place], [address], [place] [facility] 07/26/2024 17:26:24 OBGyn Episode No OBEpisode recorded.
--- OUTSIDE RECORDS SUMMARY | 2025-03-11 13:06 | XMS_ITS | Encounter Summary ---
Author Organization [facility] Address [address] [place] [address] Care Team Providers Care Shot Grinder Operator Name Role Phone Keli Dickinson MD Primary Care Provider [phone] Encounter Details Date Type Department Care Team (Late st Contact Info) Description 11/08/2024 Lab Requisition [facility] - [facility] Lab [address] [place] [address] Marine Ryder MD [address] [place] [address] Encounter for other general examination Social History [...] URINALYSIS WITH REFLEX MICROSCOPIC AND CULTURE Routine 11/08/2024 9:53 AM EST Encounter for other general examination [place] URINE CULTURE TUBE Routine 11/08/2024 9:53 AM EST Encounter for other general examination URINALYSIS WITH REFLEX MICROSCOPIC AND CULTURE Routine 11/08/2024 9:53 AM EST Encounter for other general examination documented in this encounter Results * (ABNORMAL) Urinalysis with reflex microscopic and culture (11/08/2024 9:53 AM EST) Specific [place] Urine 1.024 1.003 - 1.030 LAB URINALYSIS - AUTOMATED METHOD 11/08/2024 10:31 AM EST [facility] pH, Urine 5.5 5.0 - 8.0 pH LAB URINALYSIS - AUTOMATED METHOD 11/08/2024 10:31 AM [facility] Leukocytes, Urine Negative Negative LAB URINALYSIS - AUTOMATED METHOD 11/08/2024 10:31 AM [facility] Nitrite, Urine Negative Negative LAB URINALYSIS - AUTOMATED METHOD 11/08/2024 10:31 AM [facility] Protein, Urine 30(A) <=Trace mg/dL LAB URINALYSIS - AUTOMATED METHOD 11/08/2024 10:31 AM [facility] LAB Glucose, Urine >=1000(A) Negative mg/dL LAB URINALYSIS - AUTOMATED METHOD 11/08/2024 10:31 AM [facility] Ketones, Urine Trace(A) Negative mg/dL LAB URINALYSIS - AUTOMATED METHOD 11/08/2024 10:31 AM [facility] Urobilinogen , Urine 1.0 0.2 - 1.0 mg/dL LAB URINALYSIS - AUTOMATED METHOD 11/08/2024 10:31 AM [facility] Bilirubin, Urine Negative Negative LAB URINALYSIS - AUTOMATED METHOD 11/08/2024 10:31 AM [facility] Blood, Urine Negative Negative LAB URINALYSIS - AUTOMATED METHOD 11/08/2024 10:31 AM [facility] LAB RBC, Urine 1.1 0 - 4 /HPF LAB URINALYSIS - AUTOMATED METHOD 11/08/2024 10:31 AM [facility] WBC, Urine 3.2 0 - 4 /HPF LAB URINALYSIS - AUTOMATED METHOD 11/08/2024 10:31 AM [facility] Squamous Epithelial, Urine 55 0 - 60 /LPF LAB URINALYSIS - AUTOMATED METHOD 11/08/2024 10:31 AM [facility] Bacteria, Urine Negative Negative /HPF LAB URINALYSIS - AUTOMATED METHOD 11/08/2024 10:31 AM [facility] Hyaline Casts, Urine 8.8(H) 0 - 3 /LPF LAB URINALYSIS - AUTOMATED METHOD 11/08/2024 10:31 AM EST [facility] Urine Urine specimen obtained by clean catch procedure / Unknown 11/08/2024 9:53 AM EST 11/08/2024 9:55 AM EST us Marine Ryder MD LAB URINE ORDERABLES Final Resu lt Performing Organization Address City/[facility]/ZIP Co de Phone Number [facility] [address] [place] [address], [place] [phone] * [place] urine culture tube (11/08/2024 9:53 AM EST) Extra Tube Hold for add-ons. 11/08/2024 11:02 AM EST [facility] Comment:Auto resulted. 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
--- OUTSIDE RECORDS SUMMARY | 2025-03-11 13:06 | XMS_ITS | Encounter Summary ---
Author Organization Rachel [facility] Address [address] [place] [address] Care Team Providers Care Industrial Pharmacist Name Role Phone Keli Dickinson MD Primary Care Provider [phone] Encounter Details Date Type Department Care Team (Late st Contact Info) Description 11/13/2024 Lab Requisition [facility] Lab [address] [place] [address] Marine Ryder MD [address] [place] [phone] Encounter for other general examination Social History [...] Diagnosis Comments CBC WITH AUTO DIFFERENTIAL Routine 11/13/2024 5:46 AM EST Encounter for other general examination CBC AND DIFFERENTIAL Routine 11/13/2024 5:46 AM EST Encounter for other general examination documented in this encounter Results * (ABNORMAL) CBC auto differential (11/13/2024 5:46 AM EST) WBC 8.7 4.8 - 10.8 K/[facility] LAB HEMETOLOGY METHOD 11/13/2024 8:42 AM EST [facility] LAB RBC 3.00(L) 3.80 - 4.80 M/[facility] LAB HEMETOLOGY METHOD 11/13/2024 8:42 AM EST [facility] LAB Hemoglobin 7.7(L) 11.5 - 16.0 g/dL LAB HEMETOLOGY METHOD 11/13/2024 8:42 AM [facility] LAB Hematocrit 25.4(L) 35.0 - 47.0 % LAB HEMETOLOGY METHOD 11/13/2024 8:42 AM [facility] LAB MCV 83.8 79.0 - 98.0 FL LAB HEMETOLOGY METHOD 11/13/2024 8:42 AM [facility] LAB MCH 25.4(L) 27.0 - 32.0 pcg LAB HEMETOLOGY METHOD 11/13/2024 8:42 AM [facility] LAB MCHC 30.3(L) 32.0 - 37.0 g/dL LAB HEMETOLOGY METHOD 11/13/2024 8:42 AM [facility] LAB RDW 20.0(H) 11.0 - 15.0 % LAB HEMETOLOGY METHOD 11/13/2024 8:42 AM [facility] LAB Platelets 335 130 - 400 K/mcL LAB HEMETOLOGY METHOD 11/13/2024 8:42 AM [facility] LAB MPV 10.7 7.0 - 11.0 FL LAB HEMETOLOGY METHOD 11/13/2024 8:42 AM [facility] LAB NRBC 0.0 <1.0 % LAB HEMETOLOGY METHOD 11/13/2024 8:42 AM [facility] LAB NRBC Absolute 0.00 <0.10 K/mcL LAB HEMETOLOGY METHOD 11/13/2024 8:42 AM [facility] LAB Neutrophils Relative 70.3 % LAB HEMETOLOGY METHOD 11/13/2024 8:42 AM [facility] LAB Lymphocytes Relative 16.4 % LAB HEMETOLOGY METHOD 11/13/2024 8:42 AM [facility] LAB Monocytes Relative 10.4 % LAB HEMETOLOGY METHOD 11/13/2024 8:42 AM [facility] LAB Eosinophils Relative 1.7 % LAB HEMETOLOGY METHOD 11/13/2024 8:42 AM EST [facility] LAB Basophils Relative 0.6 % LAB HEMETOLOGY METHOD 11/13/2024 8:42 AM [facility] LAB Immature Granulocytes Relative 0.6 % LAB HEMETOLOGY METHOD 11/13/2024 8:42 AM [facility] LAB Neutrophils Absolute 6.14 1.50 - 7.00 K/mcL LAB HEMETOLOGY METHOD 11/13/2024 8:42 AM EST [facility] LAB Lymphocytes Absolute 1.43 1.00 - 5.00 K/mcL LAB HEMETOLOGY METHOD 11/13/2024 8:42 AM [facility] LAB Monocytes Absolute 0.91 0.20 - 1.00 K/mcL LAB HEMETOLOGY METHOD 11/13/2024 8:42 AM EST [facility] LAB Eosinophils Absolute 0.15 0.00 - 0.50 K/mcL LAB HEMETOLOGY METHOD 11/13/2024 8:42 AM EST [facility] LAB Basophils Absolute 0.05 0.00 - 0.20 K/mcL LAB HEMETOLOGY METHOD 11/13/2024 8:42 AM [facility] LAB Immature Granulocytes Absolute 0.05(H) 0.00 - 0.03 K/mcL LAB HEMETOLOGY METHOD 11/13/2024 8:42 AM [facility] LAB Blood Venous blood specimen / Unknown Venipuncture / Unknown 11/13/2024 5:46 AM EST 11/13/2024 7:38 AM EST us Marine Ryder MD LAB BLOOD ORDERABLES Final Resu lt [facility] LAB [address] [place] [address], documented in this encounter Visit Diagnoses Diagnosis Encounter for other general examination documented in this encounter Additional Health Concerns Infection Onset Date Last Indicated Resolved Time Gastrointestinal Rule-Out 11/15/2024 11/15/2024 2:43 PM EST 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
--- OUTSIDE RECORDS SUMMARY | 2025-03-11 13:06 | XMS_ITS | Encounter Summary ---
Author Organization [facility] Address [address] [place] [address] Care Team Providers Care Respiratory Services Manager Name Role Phone Keli Dickinson MD Primary Care Provider [phone] Encounter Details Date Type Department Care Team (Late st Contact Info) Description 11/08/2024 Lab Requisition [facility] Lab [address] [place] [address] Marine Ryder MD [address] [place] [address] Encounter for other general examination Social History [...] Diagnosis Comments CBC WITH AUTO DIFFERENTIAL Routine 11/08/2024 1:11 PM EST Encounter for other general examination CBC AND DIFFERENTIAL Routine 11/08/2024 1:11 PM EST Encounter for other general examination documented in this encounter Results * (ABNORMAL) CBC auto differential (11/08/2024 1:11 PM EST) WBC 8.1 4.8 - 10.8 K/[facility] LAB HEMETOLOGY METHOD 11/08/2024 3:05 PM EST [facility] LAB RBC 3.40(L) 3.80 - 4.80 M/mcL LAB HEMETOLOGY METHOD 11/08/2024 3:05 PM EST [facility] LAB Hemoglobin 8.5(L) 11.5 - 16.0 g/dL LAB HEMETOLOGY METHOD 11/08/2024 3:05 PM [facility] LAB Hematocrit 28.0(L) 35.0 - 47.0 % LAB HEMETOLOGY METHOD 11/08/2024 3:05 PM [facility] LAB MCV 82.8 79.0 - 98.0 FL LAB HEMETOLOGY METHOD 11/08/2024 3:05 PM [facility] LAB MCH 25.1(L) 27.0 - 32.0 pcg LAB HEMETOLOGY METHOD 11/08/2024 3:05 PM [facility] LAB MCHC 30.4(L) 32.0 - 37.0 g/dL LAB HEMETOLOGY METHOD 11/08/2024 3:05 PM [facility] LAB RDW 19.1(H) 11.0 - 15.0 % LAB HEMETOLOGY METHOD 11/08/2024 3:05 PM [facility] LAB Platelets 330 130 - 400 K/mcL LAB HEMETOLOGY METHOD 11/08/2024 3:05 PM [facility] LAB MPV 11.2(H) 7.0 - 11.0 FL LAB HEMETOLOGY METHOD 11/08/2024 3:05 PM [facility] LAB NRBC 0.0 <1.0 % LAB HEMETOLOGY METHOD 11/08/2024 3:05 PM [facility] LAB NRBC Absolute 0.00 <0.10 K/mcL LAB HEMETOLOGY METHOD 11/08/2024 3:05 PM [facility] LAB Neutrophils Relative 82.0 % LAB HEMETOLOGY METHOD 11/08/2024 3:05 PM [facility] LAB Lymphocytes Relative 9.0 % LAB HEMETOLOGY METHOD 11/08/2024 3:05 PM [facility] LAB Monocytes Relative 7.3 % LAB HEMETOLOGY METHOD 11/08/2024 3:05 PM [facility] LAB Eosinophils Relative 0.7 % LAB HEMETOLOGY METHOD 11/08/2024 3:05 PM [facility] LAB Basophils Relative 0.4 % LAB HEMETOLOGY METHOD 11/08/2024 3:05 PM [facility] LAB Immature Granulocytes Relative 0.6 % LAB HEMETOLOGY METHOD 11/08/2024 3:05 PM [facility] LAB Neutrophils Absolute 6.64 1.50 - 7.00 K/mcL LAB HEMETOLOGY METHOD 11/08/2024 3:05 PM [facility] LAB Lymphocytes Absolute 0.73(L) 1.00 - 5.00 K/mcL LAB HEMETOLOGY METHOD 11/08/2024 3:05 PM [facility] LAB Monocytes Absolute 0.59 0.20 - 1.00 K/mcL LAB HEMETOLOGY METHOD 11/08/2024 3:05 PM [facility] LAB Eosinophils Absolute 0.06 0.00 - 0.50 K/mcL LAB HEMETOLOGY METHOD 11/08/2024 3:05 PM [facility] LAB Basophils Absolute 0.03 0.00 - 0.20 K/mcL LAB HEMETOLOGY METHOD 11/08/2024 3:05 PM [facility] LAB Immature Granulocytes Absolute 0.05(H) 0.00 - 0.03 K/mcL LAB HEMETOLOGY METHOD 11/08/2024 3:05 PM [facility] LAB Blood Venous blood specimen / Unknown Venipuncture / Unknown 11/08/2024 1:11 PM EST 11/08/2024 2:48 PM EST us Marine Ryder MD LAB BLOOD ORDERABLES Final Resu lt [facility] LAB [address] [place] [address], documented in this encounter Visit Diagnoses Diagnosis Encounter for other general examination documented in this encounter Additional Health Concerns Infection Onset Date Last Indicated Resolved Time Gastrointestinal Rule-Out 11/15/2024 11/15/2024 2:43 PM EST 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
--- OUTSIDE RECORDS SUMMARY | 2025-03-11 13:06 | XMS_ITS | Encounter Summary ---
[facility] Address [address] [place] [address] Care Team Providers Care Piccoloist Name Role Phone Keli Dickinson MD Primary Care Provider Encounter Details Date Type Department Care Team (Latest Contact Info) Description 11/19/2024 Lab Requisition [facility] Lab [address] [place] [address] Keli Dickinson MD [address] [place] [address] Type 2 diabetes mellitus without complications (CMS/HCC V24, CMS/HCC V28); Anemia, unspecified Social History Tobacco Use Types [...] Associated Diagnosis Comments COMPLETE BLOOD COUNT Routine 11/19/2024 7:20 AM EST Type 2 diabetes mellitus without complications ([facility]/HCC) Anemia, unspecified HEMOGLOBIN A1C Routine 11/19/2024 7:20 AM EST Type 2 diabetes mellitus without complications (CMS/HCC) Anemia, unspecified COMPREHENSIVE METABOLIC PANEL Routine 11/19/2024 7:20 AM EST Type 2 diabetes mellitus without complications ([facility]) Anemia, unspecified documented in this encounter Results * (ABNORMAL) Hemoglobin A1c (11/19/2024 7:20 AM EST) Hemoglobin A1C 6.8(H) <6.5 % LAB CHEMISTRY METHOD 11/21/2024 10:21 AM EST [facility] LAB Mean Bld Glu Estim. 148 mg/dL LAB CHEMISTRY METHOD 11/21/2024 10:21 AM [facility] LAB Blood Venous blood specimen / Unknown Venipuncture / Unknown 11/19/2024 7:20 AM EST 11/19/2024 11:06 AM EST Keli Dickinson MD LAB BLOOD ORDERABLES Final Resul t [facility] LAB [address] [place] [address], [place] [phone] * (ABNORMAL) Comprehensive metabolic panel (11/19/2024 7:20 AM EST) Sodium 132(L) 133 - 145 mmol/L LAB CHEMISTRY METHOD 11/19/2024 11:58 AM [facility] LAB Potassium 5.2 3.5 - 5.5 mmol/L LAB CHEMISTRY METHOD 11/19/2024 11:58 AM [facility] LAB Chloride 101 96 - 110 mmol/L LAB CHEMISTRY METHOD 11/19/2024 11:58 AM [facility] LAB CO2 26 21 - 32 mmol/L LAB CHEMISTRY METHOD 11/19/2024 11:58 AM [facility] LAB Anion Gap 5 3 - 11 LAB CHEMISTRY METHOD 11/19/2024 11:58 AM [facility] LAB Glucose 99 70 - 100 mg/dL LAB CHEMISTRY METHOD 11/19/2024 11:58 AM [facility] LAB BUN 26(H) 5 - 25 mg/dL LAB CHEMISTRY METHOD 11/19/2024 11:58 AM [facility] LAB Creatinine 0.85 0.50 - 1.10 mg/dL LAB CHEMISTRY METHOD 11/19/2024 11:58 AM [facility] LAB eGFR 66 >=60 mL/min/1. 73m2 LAB CHEMISTRY METHOD 11/19/2024 11:58 AM [facility] LAB Comment:Calculation based on the??Chronic Kidney Disease Epidemiology Collaboration (CKD-EPI) equation refit??without adjustment for race. BUN/Creatinine Ratio 30.6 LAB CHEMISTRY METHOD 11/19/2024 11:58 AM [facility] LAB Calcium 8.2(L) 8.5 - 10.5 mg/dL LAB CHEMISTRY METHOD 11/19/2024 11:58 AM [facility] LAB AST (SGOT) 15 10 - 42 unit/L LAB CHEMISTRY METHOD 11/19/2024 11:58 AM [facility] LAB ALT (SGPT) 13 10 - 60 unit/L LAB CHEMISTRY METHOD 11/19/2024 11:58 AM [facility] LAB Alkaline Phosphatase 105 42 - 121 unit/L LAB CHEMISTRY METHOD 11/19/2024 11:58 AM [facility] LAB Total Protein 5.3(L) 6.0 - 8.0 g/dL LAB CHEMISTRY METHOD 11/19/2024 11:58 AM [facility] LAB Albumin 2.2(L) 3.2 - 5.0 g/dL LAB CHEMISTRY METHOD 11/19/2024 11:58 AM [facility] LAB Total Bilirubin 0.6 0.0 - 1.4 mg/dL LAB CHEMISTRY METHOD 11/19/2024 11:58 AM [facility] LAB Blood Venous blood specimen / Unknown Venipuncture / Unknown 11/19/2024 7:20 AM EST 11/19/2024 11:06 AM EST us Keli Dickinson MD LAB BLOOD ORDERABLES Final Resul t [facility] LAB [address] [place] [address], * (ABNORMAL) Complete blood count (11/19/2024 7:20 AM EST) WBC 6.9 4.8 - 10.8 K/mcL LAB HEMETOLOGY METHOD 11/19/2024 11:28 AM [facility] LAB RBC 3.10(L) 3.80 - 4.80 M/mcL LAB HEMETOLOGY METHOD 11/19/2024 11:28 AM [facility] LAB Hemoglobin 7.9(L) 11.5 - 16.0 g/dL LAB HEMETOLOGY METHOD 11/19/2024 11:28 AM [facility] LAB Hematocrit 26.0(L) 35.0 - 47.0 % LAB HEMETOLOGY METHOD 11/19/2024 11:28 AM [facility] LAB MCV 84.7 79.0 - 98.0 FL LAB HEMETOLOGY METHOD 11/19/2024 11:28 AM [facility] LAB MCH 25.7(L) 27.0 - 32.0 pcg LAB HEMETOLOGY METHOD 11/19/2024 11:28 AM [facility] LAB MCHC 30.4(L) 32.0 - 37.0 g/dL LAB HEMETOLOGY METHOD 11/19/2024 11:28 AM [facility] LAB RDW 19.5(H) 11.0 - 15.0 % LAB HEMETOLOGY METHOD 11/19/2024 11:28 AM [facility] LAB Platelets 415(H) 130 - 400 K/mcL LAB HEMETOLOGY METHOD 11/19/2024 11:28 AM [facility] LAB MPV 10.3 7.0 - 11.0 FL LAB HEMETOLOGY METHOD 11/19/2024 11:28 AM [facility] LAB NRBC 0.0 <1.0 % LAB HEMETOLOGY METHOD 11/19/2024 11:28 AM [facility] LAB NRBC Absolute 0.00 <0.10 K/mcL LAB HEMETOLOGY METHOD 11/19/2024 11:28 AM EST [facility] Blood Venous blood specimen / Unknown Venipuncture / Unknown 11/19/2024 7:20 AM EST 11/19/2024 11:06 AM EST us Keli Dickinson MD LAB BLOOD ORDERABLES Final Resul t [facility] LAB [address] [place] [address], documented in this encounter Visit Diagnoses Diagnosis Type 2 diabetes mellitus without complications (CMS/HCC V24, CMS/HCC V28) Anemia, unspecified documented in this encounter Additional Health Concerns 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
--- OUTSIDE RECORDS SUMMARY | 2025-03-11 13:06 | XMS_ITS | Encounter Summary ---
Author Organization Rachel [facility] Address [address] [place] [address] Care Team Providers Care Patternmaker Plastics Name Role Phone Keli Dickinson MD Primary Care Provider [phone] Encounter Details Date Type Department Care Team (Late st Contact Info) Description 11/05/2024 Lab Requisition [facility] - Main Lab [address] [place] [address] Marine Ryder MD [address] [place] [phone] Encounter for other general examination Social History [...] Diagnosis Comments CBC WITH AUTO DIFFERENTIAL Routine 11/05/2024 5:12 AM EST Encounter for other general examination CBC AND DIFFERENTIAL Routine 11/05/2024 5:12 AM EST Encounter for other general examination MAGNESIUM Routine 11/05/2024 5:12 AM EST Encounter for other general examination COMPREHENSIVE METABOLIC PANEL Routine 11/05/2024 5:12 AM EST Encounter for other general examination documented in this encounter Results * (ABNORMAL) CBC auto differential (11/05/2024 5:12 AM EST) WBC 9.9 4.8 - 10.8 K/mcL LAB HEMETOLOGY METHOD 11/05/2024 10:00 AM EST [facility] RBC 3.20(L) 3.80 - 4.80 M/mcL LAB HEMETOLOGY METHOD 11/05/2024 10:00 AM [facility] LAB Hemoglobin 8.0(L) 11.5 - 16.0 g/dL LAB HEMETOLOGY METHOD 11/05/2024 10:00 AM [facility] LAB Hematocrit 25.6(L) 35.0 - 47.0 % LAB HEMETOLOGY METHOD 11/05/2024 10:00 AM [facility] LAB MCV 81.0 79.0 - 98.0 FL LAB HEMETOLOGY METHOD 11/05/2024 10:00 AM [facility] LAB MCH 25.3(L) 27.0 - 32.0 pcg LAB HEMETOLOGY METHOD 11/05/2024 10:00 AM [facility] LAB MCHC 31.3(L) 32.0 - 37.0 g/dL LAB HEMETOLOGY METHOD 11/05/2024 10:00 AM [facility] LAB RDW 18.3(H) 11.0 - 15.0 % LAB HEMETOLOGY METHOD 11/05/2024 10:00 AM [facility] LAB Platelets 254 130 - 400 K/mcL LAB HEMETOLOGY METHOD 11/05/2024 10:00 AM [facility] LAB MPV 11.7(H) 7.0 - 11.0 FL LAB HEMETOLOGY METHOD 11/05/2024 10:00 AM [facility] LAB NRBC 0.0 <1.0 % LAB HEMETOLOGY METHOD 11/05/2024 10:00 AM [facility] LAB NRBC Absolute 0.00 <0.10 K/mcL LAB HEMETOLOGY METHOD 11/05/2024 10:00 AM [facility] LAB Neutrophils Relative 77.4 % LAB HEMETOLOGY METHOD 11/05/2024 10:00 AM [facility] LAB Lymphocytes Relative 12.2 % LAB HEMETOLOGY METHOD 11/05/2024 10:00 AM [facility] LAB Monocytes Relative 8.8 % LAB HEMETOLOGY METHOD 11/05/2024 10:00 AM [facility] LAB Eosinophils Relative 0.9 % LAB HEMETOLOGY METHOD 11/05/2024 10:00 AM [facility] LAB Basophils Relative 0.3 % LAB HEMETOLOGY METHOD 11/05/2024 10:00 AM [facility] LAB Immature Granulocytes Relative 0.4 % LAB HEMETOLOGY METHOD 11/05/2024 10:00 AM [facility] LAB Neutrophils Absolute 7.66(H) 1.50 - 7.00 K/mcL LAB HEMETOLOGY METHOD 11/05/2024 10:00 AM [facility] LAB Lymphocytes Absolute 1.21 1.00 - 5.00 K/mcL LAB HEMETOLOGY METHOD 11/05/2024 10:00 AM [facility] LAB Monocytes Absolute 0.87 0.20 - 1.00 K/mcL LAB HEMETOLOGY METHOD 11/05/2024 10:00 AM [facility] LAB Eosinophils Absolute 0.09 0.00 - 0.50 K/mcL LAB HEMETOLOGY METHOD 11/05/2024 10:00 AM [facility] LAB Basophils Absolute 0.03 0.00 - 0.20 K/mcL LAB HEMETOLOGY METHOD 11/05/2024 10:00 AM [facility] LAB Immature Granulocytes Absolute 0.04(H) 0.00 - 0.03 K/mcL LAB HEMETOLOGY METHOD 11/05/2024 10:00 AM [facility] LAB Blood Venous blood specimen / Unknown Venipuncture / Unknown 11/05/2024 5:12 AM EST 11/05/2024 8:55 AM EST us Marine Ryder MD LAB BLOOD ORDERABLES Final Resu lt Performing Organization Address [facility]/ZIP Co de Phone Number [facility] LAB [address] [place] [address], * Magnesium (11/05/2024 5:12 AM EST) Magnesium 2.5 1.9 - 2.6 mg/dL LAB CHEMISTRY METHOD 11/05/2024 10:41 AM EST [facility] LAB Blood Venous blood specimen / Unknown Venipuncture / Unknown 11/05/2024 5:12 AM EST 11/05/2024 8:55 AM EST Marine Ryder MD LAB BLOOD ORDERABLES Final Resu lt Performing Organization Address [facility]/ZIP Co de Phone Number [facility] [address] [place] [address], * (ABNORMAL) Comprehensive metabolic panel (11/05/2024 5:12 AM EST) Pathologist [facility] Sodium 132(L) 133 - 145 mmol/L LAB CHEMISTRY METHOD 11/05/2024 10:42 AM [facility] LAB Potassium 5.2 3.5 - 5.5 mmol/L LAB CHEMISTRY METHOD 11/05/2024 10:42 AM [facility] LAB Chloride 99 96 - 110 mmol/L LAB CHEMISTRY METHOD 11/05/2024 10:42 AM [facility] LAB CO2 29 21 - 32 mmol/L LAB CHEMISTRY METHOD 11/05/2024 10:42 AM [facility] LAB Anion Gap 4 3 - 11 LAB CHEMISTRY METHOD 11/05/2024 10:42 AM [facility] LAB Glucose 256(H) 70 - 100 mg/dL LAB CHEMISTRY METHOD 11/05/2024 10:42 AM [facility] LAB BUN 39(H) 5 - 25 mg/dL LAB CHEMISTRY METHOD 11/05/2024 10:42 AM [facility] LAB Creatinine 0.87 0.50 - 1.10 mg/dL LAB CHEMISTRY METHOD 11/05/2024 10:42 AM [facility] LAB eGFR 64 >=60 mL/min/1. 73m2 LAB CHEMISTRY METHOD 11/05/2024 10:42 AM [facility] LAB Comment:Calculation based on the??Chronic Kidney Disease Epidemiology Collaboration (CKD-EPI) equation refit??without adjustment for race. BUN/Creatinine Ratio 44.8 LAB CHEMISTRY METHOD 11/05/2024 10:42 AM [facility] LAB Calcium 8.2(L) 8.5 - 10.5 mg/dL LAB CHEMISTRY METHOD 11/05/2024 10:42 AM [facility] LAB AST (SGOT) 56(H) 10 - 42 unit/L LAB CHEMISTRY METHOD 11/05/2024 10:42 AM [facility] LAB ALT (SGPT) 16 10 - 60 unit/L LAB CHEMISTRY METHOD 11/05/2024 10:42 AM [facility] LAB Alkaline Phosphatase 77 42 - 121 unit/L LAB CHEMISTRY METHOD 11/05/2024 10:42 AM [facility] LAB Total Protein 5.1(L) 6.0 - 8.0 g/dL LAB CHEMISTRY METHOD 11/05/2024 10:42 AM [facility] LAB Albumin 2.5(L) 3.2 - 5.0 g/dL LAB CHEMISTRY METHOD 11/05/2024 10:42 AM [facility] LAB Total Bilirubin 0.8 0.0 - 1.4 mg/dL LAB CHEMISTRY METHOD 11/05/2024 10:42 AM [facility] LAB Blood Venous blood specimen / Unknown Venipuncture / Unknown 11/05/2024 5:12 AM EST 11/05/2024 8:55 AM EST us Marine Ryder MD LAB BLOOD ORDERABLES Final Resu lt [facility] [address] [place] [address], documented in this encounter Visit Diagnoses Diagnosis Encounter for other general examination documented in this encounter Additional Health Concerns Infection Onset Date Last Indicated Resolved Time Gastrointestinal Rule-Out 11/15/2024 11/15/2024 2:43 PM EST 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
[2025-03-11 13:09] LABS: Beta-Hydroxybutyrate 9.39 mmol/L (0.02-0.27)
[2025-03-11 13:12] LABS: Alanine Aminotransferase 7 U/L (0-31); Albumin Level 3.6 g/dL (3.5-5.0); Alkaline Phosphatase 107 U/L (39-117); Anion Gap 32 (12-20); Aspartate Amino Transferase 23 U/L (5-31); Bilirubin Total 0.6 mg/dL (0.0-1.0); Blood Urea Nitrogen 29 mg/dL (9-16); Calcium 8.9 mg/dL (8.4-10.2); Carbon Dioxide 6 mmol/L (22-29); Chloride 99 mmol/L (96-108); Creatinine Clr Calc Pharmacy 28.5; Estimated Glomerular Filt Rate 34; Glucose Random 422 mg/dL (60-115); Potassium 4.7 mmol/L (3.3-5.1); Sodium 132 mmol/L (135-145); Total Protein 6.5 g/dL (6.5-8.0)
[2025-03-11] MEDS: Insulin Regular/NS 100 UNIT/100 ML PLAST..BAG 8 UNIT IVCONT (13:40)
[2025-03-11 13:44] LABS: VBG Base Excess -17.1 mmol/L; VBG HCO3 8 mmol/L (22-26); VBG pCO2 18 mmHg; VBG pH 7.23 (7.32-7.43); VBG pO2 73 mmHg
[2025-03-11 13:44] LABS: Glucose, Whole Blood 312 mg/dL (60-115)
[2025-03-11 13:52] LABS: Venous Blood Gas Refer to POC result
[2025-03-11 14:00] LABS: Lactic Acid 1.9 mmol/L (0.5-2.0)
--- NOTE | 2025-03-11 14:00 | PC.NURSE ---
additional IV access obtained din patient left FA #[id number], insulin gtt per MAR
[2025-03-11 14:41] LABS: Glucose, Whole Blood 257 mg/dL (60-115)
[2025-03-11] MEDS: Lactated Ringers 1,000 ML 150 ML IVCONT (14:54)
[2025-03-11] MEDS: cefTRIAXone sodium 1 GM VIAL IVPUSH (14:54)
[2025-03-11] MEDS: Heparin Sodium,Porcine 5,000 UNIT/ML VIAL 5000 UNIT SUBCUT ×2 (14:58→22:30)
[2025-03-11 15:03] LABS: Appearance Urine Clear; Color Urine Yellow; Glucose Urine UA >=1000 mg/dL (Negative); Leukocyte Esterase Urine Negative (Negative); Nitrite Urine Negative (Negative); UMIC TRIGGER UACC YES; Urine Blood Trace (Negative); Urine Ketones >=160 mg/dL (Negative); Urine Protein 30 (1+) mg/dL (Neg-Trace)
[2025-03-11 15:17] LABS: Bacteria Urine None Seen (None Seen); Hyaline Casts Urine 0-2 /LPF (0-2); RBC Urine 0-2 /HPF (0-2); WBC Urine 0-5 /HPF (0-5)
[2025-03-11 15:48] LABS: Glucose, Whole Blood 226 mg/dL (60-115)
--- NOTE | 2025-03-11 16:21 | PHA.MEDREC ---
Pharmacy Consult ? Medication Reconciliation Pharmacy has completed the medication reconciliation. Spoke with Ginna at bedside and Irina over the phone to confirm patient medications. She is no longer taking metoprolol, lisinopril, and tamsulosin. She uses hydralazine at bedtime prn if her BP >150/80 and takes 2 tabs of 40 mg pravastain at bedtime. She uses 20 units of lantus at bedtime and lispro TID with sliding scale. Irina confirmed normal insulin lispro and not Mix. Family also confirmed OTCs. She only had lispro today and no other medications.
--- NOTE | 2025-03-11 16:49 | P.HPCC_ITS ---
History of Present Illness Date of Service: 03/12/25 Chief Complaint: DKA 9-year-old lady with underlying history of CAD diabetes mellitus, recent fracture status post ORIF admitted 03/11/2025 with hyperglycemia and diabetic ketoacidosis requiring insulin drip. Review of Systems 2 Constitutional: Constitutional: Denies daytime sleepiness, Denies excessive sweating, Denies fatigue, Denies fever(s), Denies lethargy, Denies malaise, Denies night sweats, Denies snoring and Denies weight loss Eyes: Eyes: Denies blurry vision and Denies itchy eyes ENT: Denies nasal congestion, Denies post nasal drip, Denies sinus pain, Denies sinus pressure and Denies other ( Thrush) Cardiovascular: Cardiovascular: Denies chest pain, Denies pedal edema, Denies dyspnea, Denies orthopnea and Denies paroxysmal nocturnal dyspnea Respiratory: Respiratory: Denies cough, Denies hemoptysis, Denies excessive phlegm production, Denies dyspnea, Denies snoring and Denies wheezing Gastrointestinal: Gastrointestinal: Denies abdominal pain and Denies heartburn Musculoskeletal: Musculoskeletal: Denies myalgias, Denies arthralgias and Denies joint swelling Integumentary/Breasts: Skin/Breast: Denies rash Neurologic: Denies memory loss and Denies seizure-like activity Psychiatric: Psychiatric: Denies abnormal sleep pattern, Denies anxiety and Denies memory loss Endocrine: Endocrine: Denies excessive sweating, Denies fatigue and Denies heat intolerance Hematologic/Lymphatic: Hematologic/Lymphatic: Denies easy bruising Allergic/Immunologic: Allergic/Immunologic: Denies itchy eyes, Denies seasonal rhinorrhea and Denies wheezing PMFSH Past Medical History Medical History (Updated 03/12/25 @ 09:55 by Luis Peralta MD) CAD (coronary artery disease) Patellofemoral arthritis of right knee Diabetes mellitus Left bundle branch block Surgical History Surgical History Hx of mastectomy Hx of mastectomy Social History Social History Household Members: None Household Members Other:: Home alone, went to [facility] a few weeks ago Housing: House Do you presently have visiting nurse or other home services: Yes (nurse went to house for intake and sent patient to ER prior to intake.) Patient Tobacco Use Status: Never used Tobacco Use of substances other than those prescribed or required for medical reasons: No Have you been hit, kicked, punched, or otherwise hurt by someone within the past year? 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 Allergies Allergy/AdvReac Type Severity Reaction Status Date / Time adhesive tape [Adhesive Tape] Allergy Unknown SKIN Verified 03/11/25 11:42 REDNESS Active Medications: Current Medications Dextrose (Dextrose 50 % 25 Gm/50 Ml Syringe) 25 gm IVPUSH Q30M PRN PRN Reason: BG < 70 Heparin Sodium (Porcine) (Heparin Sodium,Porcine 5,000 Unit/Ml Vial) 5,000 unit SUBCUT Q8H [facility] Last Admin: 03/11/25 14:58 Dose: 5,000 unit Insulin Human Regular (Myxredlin) 100 unit in 100 mls @ 8 mls/hr IVCONT .[id number] [facility]; Protocol Last Titration: 03/11/25 15:57 Dose: 12 unit/hr, 12 mls/hr Lactated Ringer's (Lr) 1,000 mls @ 150 mls/hr IVCONT .[id number] [facility] Last Admin: 03/11/25 14:54 Dose: 150 mls/hr Home Medications ?Medication ?Instructions ?Recorded ?Confirmed ?Last Taken ?Type acetaminophen 325 mg tablet 650 mg PO Q4-6H PRN Pain/Fever 10/31/24 03/11/25 Unknown History (Tylenol) levothyroxine 112 mcg tablet 112 mcg PO DAILY@0600 10/31/24 03/11/25 10/31/24 History cyanocobalamin (vitamin B-12) 100 100 mcg PO DAILY 02/08/25 03/11/25 Unknown History mcg tablet insulin lispro 100 unit/mL See Protocol subcut TIDWM 02/08/25 03/11/25 03/11/25 History subcutaneous solution pravastatin 40 mg tablet 80 mg PO BEDTIME 02/08/25 03/11/25 Unknown History zinc sulfate 220 mg capsule 220 mg PO DAILY 02/08/25 03/11/25 Unknown History calcium carbonate 500 mg PO BID 03/11/25 03/11/25 Unknown History insulin glargine 100 unit/mL (3 20 unit subcut BEDTIME 03/11/25 03/11/25 03/10/25 History mL) subcutaneous pen (Lantus Solostar U-100 Insulin) Physical Exam 2 Vital Signs: Vital Signs: Last Vital Signs Temp 97.6 F 03/11/25 14:59 Pulse 68 03/11/25 16:00 Resp 19 03/11/25 16:00 BP 103/52 L 03/11/25 16:00 Pulse Ox 96 03/11/25 16:00 O2 Del Method Room Air 03/11/25 16:00 BMI result Body Mass Index 33.4 Const: General: no acute distress and alert Nutritional Appearance: not obese Orientation/consciousness: Other orientation findings ( oriented) HEENT: Head: Yes atraumatic Eyes: General: appearance normal, both eyes and all related structures S clerae: sclerae normal EOM: EOMs intact bilaterally Neck: Neck: Yes supple Lymphatic: no lymphadenopathy noted Resp: Effort & Inspection: normal respiratory effort and no use of accessory muscles Auscultation: clear to auscultation bilaterally Cardio: Rate: regular rate Rhythm: regular rhythm Heart sounds: no gallops, no murmurs and no rubs Skin: General skin exam: other ( warm) Extrem: General: No clubbing, No cyanosis and No edema Results Labs 03/12/25 05:34 03/12/25 05:34 Labs: Laboratory Results - last 24 hr 03/11/25 03/11/25 03/11/25 11:38 12:22 13:35 MCV 84.0 MCH 25.9 L MCHC 30.9 L RDW 17.2 H Plt Count 305 D MPV 11.2 Immature Gran % (Auto) 0.5 H Neut % (Auto) 89.1 H Lymph % (Auto) 4.0 L [place] % (Auto) 6.1 Eos % (Auto) 0.0 Baso % (Auto) 0.3 Lymph # (Auto) 0.5 L [place] # (Auto) 0.7 Eos # (Auto) 0.0 Baso # (Auto) 0.0 Abs Immat Gran (auto) 0.06 H Absolute Neuts (auto) 10.6 H Absolute Nucleated RBC 0.000 Nucleated RBC % (auto) 0.0 VBG pH VBG pCO2 VBG pO2 VBG HCO3 VBG O2 Saturation VBG Base Excess Anion Gap 32 H Estim Creat Clear Calc 28.5 Estimated GFR 34 POC Glucose 416 H* Random Glucose 422 H* Lactic Acid 1.9 Calcium 8.9 Total Bilirubin 0.6 AST 23 ALT 7 Alkaline Phosphatase 107 Total Protein 6.5 Albumin 3.6 Beta-Hydroxybutyrate 9.39 H Urine Color Urine Appearance Urine pH Ur Specific [place] Urine Protein Urine Glucose (UA) Urine Ketones Urine Blood Urine Nitrite Ur Leukocyte Esterase Urine RBC Urine WBC Ur Squamous Epith Cells Urine Bacteria Hyaline Casts 03/11/25 03/11/25 03/11/25 13:38 13:40 14:37 MCV MCH MCHC RDW Plt Count MPV Immature Gran % (Auto) Neut % (Auto) Lymph % (Auto) [place] % (Auto) Eos % (Auto) Baso % (Auto) Lymph # (Auto) [place] # (Auto) Eos # (Auto) Baso # (Auto) Abs Immat Gran (auto) Absolute Neuts (auto) Absolute Nucleated RBC Nucleated RBC % (auto) VBG pH 7.23 L VBG pCO2 18 VBG pO2 73 VBG HCO3 8 L VBG O2 Saturation 95.0 VBG Base Excess -17.1 Anion Gap Estim Creat Clear Calc Estimated GFR POC Glucose 312 H 257 H Random Glucose Lactic Acid Calcium Total Bilirubin AST ALT Alkaline Phosphatase Total Protein Albumin Beta-Hydroxybutyrate Urine Color Yellow Urine Appearance Clear Urine pH 5.0 Ur Specific [place] 1.020 Urine Protein 30 (1+) H Urine Glucose (UA) >=1000 H Urine Ketones >=160 Urine Blood Trace H Urine Nitrite Negative Ur Leukocyte Esterase Negative Urine RBC 0-2 Urine WBC 0-5 Ur Squamous Epith Cells 11-20 Urine Bacteria None Seen Hyaline Casts 0-2 03/11/25 15:44 MCV MCH MCHC RDW Plt Count MPV Immature Gran % (Auto) Neut % (Auto) Lymph % (Auto) [place] % (Auto) Eos % (Auto) Baso % (Auto) Lymph # (Auto) [place] # (Auto) Eos # (Auto) Baso # (Auto) Abs Immat Gran (auto) Absolute Neuts (auto) Absolute Nucleated RBC Nucleated RBC % (auto) VBG pH VBG pCO2 VBG pO2 VBG HCO3 VBG O2 Saturation VBG Base Excess Anion Gap Estim Creat Clear Calc Estimated GFR POC Glucose 226 H Random Glucose Lactic Acid Calcium Total Bilirubin AST ALT Alkaline Phosphatase Total Protein Albumin Beta-Hydroxybutyrate Urine Color Urine Appearance Urine pH Ur Specific [place] Urine Protein Urine Glucose (UA) Urine Ketones Urine Blood Urine Nitrite Ur Leukocyte Esterase Urine RBC Urine WBC Ur Squamous Epith Cells Urine Bacteria Hyaline Casts Assessment and Plan (1) DKA (diabetic ketoacidosis): Status: Acute (2) CAD (coronary artery disease): Status: Acute (3) Acute renal failure: Status: Acute Plan Assessment: 89-year-old lady with underlying diabetes mellitus in CAD admitted with DKA with unclear precipitant, possible UTI Plan: Neuro: No acute issues. Cardiac: No acute issues. Underlying CAD. Pulmonary: No acute issues. Renal: No acute issues. Endo: DKA, continue insulin drip protocol. GI: No acute issues. ID: Suspicion for UTI, status post empiric dose of ceftriaxone. Cultures are pending. Heme/Onc: No acute issues. Psych: No acute issues. Miscellaneous: No acute issues. Prophylaxis: Heparin Diet: NPO
[2025-03-11 16:59] LABS: Glucose, Whole Blood 175 mg/dL (60-115)
[2025-03-11] MEDS: Dextrose 5 % and Lactated Ring 1,000 ML 150 ML IVCONT (17:04)
[2025-03-11 17:45] LABS: Glucose, Whole Blood 146 mg/dL (60-115)
[2025-03-11 19:00] LABS: Glucose, Whole Blood 118 mg/dL (60-115)
[2025-03-11 19:08] LABS: Anion Gap 16 (12-20); Blood Urea Nitrogen 26 mg/dL (9-16); Calcium 8.5 mg/dL (8.4-10.2); Carbon Dioxide 16 mmol/L (22-29); Chloride 106 mmol/L (96-108); Creatinine Clr Calc Pharmacy 35.4; Estimated Glomerular Filt Rate 44; Glucose Random 143 mg/dL (60-115); Potassium 3.7 mmol/L (3.3-5.1); Sodium 134 mmol/L (135-145)
[2025-03-11 20:28] LABS: Glucose, Whole Blood 88 mg/dL (60-115)
[2025-03-11 21:25] LABS: Magnesium 1.5 mg/dL (1.6-2.6)
[2025-03-11 21:48] LABS: Glucose, Whole Blood 86 mg/dL (60-115)
[2025-03-11] MEDS: Potassium Chloride/H20 10 MEQ/100 ML PIGGYBACK 100 MEQ IV ×2 (22:09→23:30)
[2025-03-11 22:51] LABS: Glucose, Whole Blood 93 mg/dL (60-115)
[2025-03-11] MEDS: Dextrose 5 % and Lactated Ring 1,000 ML 200 ML IVCONT (23:29)
[2025-03-11 23:33] LABS: Glucose, Whole Blood 97 mg/dL (60-115)
[2025-03-12] VITALS (26 sets, daily range): BP systolic 103–176; BP diastolic 39–75; PULSE 60–91; RESP 14–28; TEMP 36–37; O2SAT 90–98; BMI 32.1
[2025-03-12 00:52] LABS: Glucose, Whole Blood 111 mg/dL (60-115)
[2025-03-12 01:08] LABS: Venous Blood Gas Refer to POC result
[2025-03-12 01:09] LABS: VBG Base Excess -2.2 mmol/L; VBG HCO3 21 mmol/L (22-26); VBG pCO2 33 mmHg; VBG pH 7.41 (7.32-7.43); VBG pO2 74 mmHg
[2025-03-12 01:29] LABS: Blood Urea Nitrogen 24 mg/dL (9-16); Calcium 8.4 mg/dL (8.4-10.2); Creatinine Clr Calc Pharmacy 39.2; Estimated Glomerular Filt Rate 52; Glucose Random 118 mg/dL (60-115)
[2025-03-12 01:49] LABS: Glucose, Whole Blood 127 mg/dL (60-115)
[2025-03-12 02:15] LABS: Carbon Dioxide 20 mmol/L (22-29); Chloride 106 mmol/L (96-108); Sodium 134 mmol/L (135-145)
[2025-03-12 02:18] LABS: Anion Gap 12 (12-20)
[2025-03-12] MEDS: Magnesium Sulfate/H2O 2 GM/50 ML PIGGYBACK IV (02:39)
[2025-03-12] MEDS: Insulin Glargine,Hum.rec.anlog 100 UNIT/ML 10 ML VIAL 17 UNIT SUBCUT (02:42)
[2025-03-12] MEDS: Potassium Phosphate/NS 15 MMOL/250 ML PLAST..BAG 62.5 MMOL IV ×2 (03:00→06:37)
--- NOTE | 2025-03-12 05:08 | PC.NURSE ---
Newly admitted patient with DKA on insulin gtt. Blood glucose level was in a therapeutic range for several hours before transition to SC insulin, started with 17u of Lantus. Patient was started on diabetic diet and was given small amount of snack at bedside. Bladder scan was performed once as the patient did not void since the admission with <400cc retention - patient voided a few hours afterwards. No sign of pain or distress was noted. Nursing care provided as tolerated or per request.
[2025-03-12 05:39] LABS: VBG Base Excess -6.3 mmol/L; VBG HCO3 17 mmol/L (22-26); VBG pCO2 27 mmHg; VBG pO2 68 mmHg
[2025-03-12 05:39] LABS: Venous Blood Gas Refer to POC result
[2025-03-12 05:43] LABS: Basophils Percent Auto 0.3 % (0-2); Eosinophils Absolute Auto 0.1 X10*3/uL (0.0-0.4); Eosinophils Percent Auto 0.6 % (0-4); Hemoglobin 9.8 g/dl (12.0-16.0); Imm Gran Abs Auto 0.03 X10*3/uL (0.00-0.03); Imm Gran Pct Auto 0.3 % (0.0-0.4); Lymphocytes Percent Auto 11.1 % (20-40); MANUAL DIFF FLAG NO; Mean Corpuscular HGB Conc 32.7 g/dl (31.0-35.0); Mean Corpuscular Hemoglobin 25.9 pg (27.0-33.0); Mean Corpuscular Volume 79.4 fL (80.0-98.0); Mean Platelet Volume 10.3 fL (9.4-12.3); Monocytes Absolute Auto 0.7 X10*3/uL (0.1-1.2); Monocytes Percent Auto 7.9 % (2-11); Neutrophils Percent Auto 79.8 % (45-73); Platelet Count 257 X10*3/uL (160-400); Red Blood Count 3.78 X10*6/uL (4.20-5.50); Red Cell Distribution Width 17.3 % (11.0-16.0); White Blood Count 8.7 X10*3/uL (4.8-10.8)
[2025-03-12 05:58] LABS: Albumin Level 3.1 g/dL (3.5-5.0); Anion Gap 15 (12-20); Blood Urea Nitrogen 21 mg/dL (9-16); Calcium 8.3 mg/dL (8.4-10.2); Carbon Dioxide 17 mmol/L (22-29); Chloride 107 mmol/L (96-108); Creatinine Clr Calc Pharmacy 38.4; Estimated Glomerular Filt Rate 51; Glucose Random 192 mg/dL (60-115); Magnesium 1.9 mg/dL (1.6-2.6); Phosphorus 3.3 mg/dL (2.7-4.5); Potassium 4.7 mmol/L (3.3-5.1); Sodium 134 mmol/L (135-145)
[2025-03-12] MEDS: Heparin Sodium,Porcine 5,000 UNIT/ML VIAL 5000 UNIT SUBCUT ×3 (06:37→21:27)
[2025-03-12 07:51] LABS: Glucose, Whole Blood 185 mg/dL (60-115)
[2025-03-12] MEDS: Insulin Lispro 100 UNIT/ML 3 ML VIAL SUBCUT ×3 (09:09→18:00)
--- NOTE | 2025-03-12 09:57 | P.PNCC_ITS ---
Subjective Subjective Date of Service: 03/12/25 Interval History: 89-year-old lady with underlying history of CAD diabetes mellitus, recent fracture status post ORIF admitted 03/11/2025 with hyperglycemia and diabetic ketoacidosis requiring insulin drip. No events overnight. Titrated off insulin drip. Critical Care Time (minutes): 0 Physical Exam 2 Vital Signs: Vital Signs: Last Vital Signs Temp 97.6 F 03/12/25 08:00 Pulse 80 03/12/25 09:00 Resp 18 03/12/25 09:00 BP 103/61 03/12/25 09:00 Pulse Ox 98 03/12/25 09:00 O2 Del Method Room Air 03/12/25 09:00 BMI result Body Mass Index 32.1 Const: General: no acute distress, alert and awake Eyes: Sclerae: sclerae normal EOM: EOMs intact bilaterally Neck: Neck: Yes no lymphadenopathy, Yes trachea midline and Yes supple Resp: Effort & Inspection: normal respiratory effort and no respiratory distress Auscultation: clear to auscultation bilaterally Cardio: Rate: regular rate Rhythm: regular rhythm Heart sounds: no gallops, no murmurs and no rubs GI: Palpation (GI): Soft to palpation and Other GI palpation findings present ( Nontender) Auscultation: normal bowel sounds Extrem: General: Yes no pedal edema, No clubbing and No cyanosis Objective Data Labs 03/12/25 05:34 03/12/25 05:34 Labs: Laboratory Results - last 24 hr 03/11/25 03/11/25 03/11/25 11:38 12:22 13:35 WBC 11.9 H RBC 4.05 L Hgb 10.5 L Hct 34.0 L MCV 84.0 MCH 25.9 L MCHC 30.9 L RDW 17.2 H Plt Count 305 D MPV 11.2 Immature Gran % (Auto) 0.5 H Neut % (Auto) 89.1 H Lymph % (Auto) 4.0 L [place] % (Auto) 6.1 Eos % (Auto) 0.0 Baso % (Auto) 0.3 Lymph # (Auto) 0.5 L [place] # (Auto) 0.7 Eos # (Auto) 0.0 Baso # (Auto) 0.0 Abs Immat Gran (auto) 0.06 H Absolute Neuts (auto) 10.6 H Absolute Nucleated RBC 0.000 Nucleated RBC % (auto) 0.0 VBG pH VBG pCO2 VBG pO2 VBG HCO3 VBG O2 Saturation VBG Base Excess Sodium 132 L Potassium 4.7 Chloride 99 Carbon Dioxide 6 L* D Anion Gap 32 H BUN 29 H Creatinine 1.44 H Estim Creat Clear Calc 28.5 Estimated GFR 34 POC Glucose 416 H* Random Glucose 422 H* Lactic Acid 1.9 Calcium 8.9 Phosphorus Magnesium Total Bilirubin 0.6 AST 23 ALT 7 Alkaline Phosphatase 107 Total Protein 6.5 Albumin 3.6 Beta-Hydroxybutyrate 9.39 H Urine Color Urine Appearance Urine pH Ur Specific [place] Urine Protein Urine Glucose (UA) Urine Ketones Urine Blood Urine Nitrite Ur Leukocyte Esterase Urine RBC Urine WBC Ur Squamous Epith Cells Urine Bacteria Hyaline Casts 03/11/25 03/11/25 03/11/25 13:38 13:40 14:37 WBC RBC Hgb Hct MCV MCH MCHC RDW Plt Count MPV Immature Gran % (Auto) Neut % (Auto) Lymph % (Auto) [place] % (Auto) Eos % (Auto) Baso % (Auto) Lymph # (Auto) [place] # (Auto) Eos # (Auto) Baso # (Auto) Abs Immat Gran (auto) Absolute Neuts (auto) Absolute Nucleated RBC Nucleated RBC % (auto) VBG pH 7.23 L VBG pCO2 18 VBG pO2 73 VBG HCO3 8 L VBG O2 Saturation 95.0 VBG Base Excess -17.1 Sodium Potassium Chloride Carbon Dioxide Anion Gap BUN Creatinine Estim Creat Clear Calc Estimated GFR POC Glucose 312 H 257 H Random Glucose Lactic Acid Calcium Phosphorus Magnesium Total Bilirubin AST ALT Alkaline Phosphatase Total Protein Albumin Beta-Hydroxybutyrate Urine Color Yellow Urine Appearance Clear Urine pH 5.0 Ur Specific [place] 1.020 Urine Protein 30 (1+) H Urine Glucose (UA) >=1000 H Urine Ketones >=160 Urine Blood Trace H Urine Nitrite Negative Ur Leukocyte Esterase Negative Urine RBC 0-2 Urine WBC 0-5 Ur Squamous Epith Cells 11-20 Urine Bacteria None Seen Hyaline Casts 0-2 03/11/25 03/11/25 03/11/25 15:44 16:50 17:42 WBC RBC Hgb Hct MCV MCH MCHC RDW Plt Count MPV Immature Gran % (Auto) Neut % (Auto) Lymph % (Auto) [place] % (Auto) Eos % (Auto) Baso % (Auto) Lymph # (Auto) [place] # (Auto) Eos # (Auto) Baso # (Auto) Abs Immat Gran (auto) Absolute Neuts (auto) Absolute Nucleated RBC Nucleated RBC % (auto) VBG pH VBG pCO2 VBG pO2 VBG HCO3 VBG O2 Saturation VBG Base Excess Sodium Potassium Chloride Carbon Dioxide Anion Gap BUN Creatinine Estim Creat Clear Calc Estimated GFR POC Glucose 226 H 175 H 146 H Random Glucose Lactic Acid Calcium Phosphorus Magnesium Total Bilirubin AST ALT Alkaline Phosphatase Total Protein Albumin Beta-Hydroxybutyrate Urine Color Urine Appearance Urine pH Ur Specific [place] Urine Protein Urine Glucose (UA) Urine Ketones Urine Blood Urine Nitrite Ur Leukocyte Esterase Urine RBC Urine WBC Ur Squamous Epith Cells Urine Bacteria Hyaline Casts 03/11/25 03/11/25 03/11/25 18:34 18:56 20:24 WBC RBC Hgb Hct MCV MCH MCHC RDW Plt Count MPV Immature Gran % (Auto) Neut % (Auto) Lymph % (Auto) [place] % (Auto) Eos % (Auto) Baso % (Auto) Lymph # (Auto) [place] # (Auto) Eos # (Auto) Baso # (Auto) Abs Immat Gran (auto) Absolute Neuts (auto) Absolute Nucleated RBC Nucleated RBC % (auto) VBG pH VBG pCO2 VBG pO2 VBG HCO3 VBG O2 Saturation VBG Base Excess Sodium 134 L Potassium 3.7 D Chloride 106 Carbon Dioxide 16 L Anion Gap 16 BUN 26 H Creatinine 1.16 Estim Creat Clear Calc 35.4 Estimated GFR 44 POC Glucose 118 H 88 Random Glucose 143 H Lactic Acid Calcium 8.5 Phosphorus 2.0 L Magnesium 1.5 L Total Bilirubin AST ALT Alkaline Phosphatase Total Protein Albumin Beta-Hydroxybutyrate Urine Color Urine Appearance Urine pH Ur Specific [place] Urine Protein Urine Glucose (UA) Urine Ketones Urine Blood Urine Nitrite Ur Leukocyte Esterase Urine RBC Urine WBC Ur Squamous Epith Cells Urine Bacteria Hyaline Casts 03/11/25 03/11/25 03/11/25 21:27 22:33 23:29 WBC RBC Hgb Hct MCV MCH MCHC RDW Plt Count MPV Immature Gran % (Auto) Neut % (Auto) Lymph % (Auto) [place] % (Auto) Eos % (Auto) Baso % (Auto) Lymph # (Auto) [place] # (Auto) Eos # (Auto) Baso # (Auto) Abs Immat Gran (auto) Absolute Neuts (auto) Absolute Nucleated RBC Nucleated RBC % (auto) VBG pH VBG pCO2 VBG pO2 VBG HCO3 VBG O2 Saturation VBG Base Excess Sodium Potassium Chloride Carbon Dioxide Anion Gap BUN Creatinine Estim Creat Clear Calc Estimated GFR POC Glucose 86 93 97 Random Glucose Lactic Acid Calcium Phosphorus Magnesium Total Bilirubin AST ALT Alkaline Phosphatase Total Protein Albumin Beta-Hydroxybutyrate Urine Color Urine Appearance Urine pH Ur Specific [place] Urine Protein Urine Glucose (UA) Urine Ketones Urine Blood Urine Nitrite Ur Leukocyte Esterase Urine RBC Urine WBC Ur Squamous Epith Cells Urine Bacteria Hyaline Casts 03/12/25 03/12/25 03/12/25 00:47 00:59 01:03 WBC RBC Hgb Hct MCV MCH MCHC RDW Plt Count MPV Immature Gran % (Auto) Neut % (Auto) Lymph % (Auto) [place] % (Auto) Eos % (Auto) Baso % (Auto) Lymph # (Auto) [place] # (Auto) Eos # (Auto) Baso # (Auto) Abs Immat Gran (auto) Absolute Neuts (auto) Absolute Nucleated RBC Nucleated RBC % (auto) VBG pH 7.41 VBG pCO2 33 VBG pO2 74 VBG HCO3 21 L VBG O2 Saturation 98.0 VBG Base Excess -2.2 Sodium 134 L Potassium 4.0 Chloride 106 Carbon Dioxide 20 L Anion Gap 12 BUN 24 H Creatinine 1.00 Estim Creat Clear Calc 39.2 Estimated GFR 52 POC Glucose 111 Random Glucose 118 H Lactic Acid Calcium 8.4 Phosphorus Magnesium Total Bilirubin AST ALT Alkaline Phosphatase Total Protein Albumin Beta-Hydroxybutyrate Urine Color Urine Appearance Urine pH Ur Specific [place] Urine Protein Urine Glucose (UA) Urine Ketones Urine Blood Urine Nitrite Ur Leukocyte Esterase Urine RBC Urine WBC Ur Squamous Epith Cells Urine Bacteria Hyaline Casts 03/12/25 03/12/25 03/12/25 01:45 05:34 05:35 WBC 8.7 RBC 3.78 L Hgb 9.8 L Hct 30.0 L MCV 79.4 L MCH 25.9 L MCHC 32.7 RDW 17.3 H Plt Count 257 MPV 10.3 Immature Gran % (Auto) 0.3 Neut % (Auto) 79.8 H Lymph % (Auto) 11.1 L [place] % (Auto) 7.9 Eos % (Auto) 0.6 Baso % (Auto) 0.3 Lymph # (Auto) 1.0 L [place] # (Auto) 0.7 Eos # (Auto) 0.1 Baso # (Auto) 0.0 Abs Immat Gran (auto) 0.03 Absolute Neuts (auto) 7.0 Absolute Nucleated RBC 0.000 Nucleated RBC % (auto) 0.0 VBG pH 7.40 VBG pCO2 27 VBG pO2 68 VBG HCO3 17 L VBG O2 Saturation 95.0 VBG Base Excess -6.3 Sodium 134 L Potassium 4.7 Chloride 107 Carbon Dioxide 17 L Anion Gap 15 BUN 21 H Creatinine 1.02 Estim Creat Clear Calc 38.4 Estimated GFR 51 POC Glucose 127 H Random Glucose 192 H Lactic Acid Calcium 8.3 L Phosphorus 3.3 Magnesium 1.9 Total Bilirubin AST ALT Alkaline Phosphatase Total Protein Albumin 3.1 L Beta-Hydroxybutyrate Urine Color Urine Appearance Urine pH Ur Specific [place] Urine Protein Urine Glucose (UA) Urine Ketones Urine Blood Urine Nitrite Ur Leukocyte Esterase Urine RBC Urine WBC Ur Squamous Epith Cells Urine Bacteria Hyaline Casts 03/12/25 07:47 WBC RBC Hgb Hct MCV MCH MCHC RDW Plt Count MPV Immature Gran % (Auto) Neut % (Auto) Lymph % (Auto) [place] % (Auto) Eos % (Auto) Baso % (Auto) Lymph # (Auto) [place] # (Auto) Eos # (Auto) Baso # (Auto) Abs Immat Gran (auto) Absolute Neuts (auto) Absolute Nucleated RBC Nucleated RBC % (auto) VBG pH VBG pCO2 VBG pO2 VBG HCO3 VBG O2 Saturation VBG Base Excess Sodium Potassium Chloride Carbon Dioxide Anion Gap BUN Creatinine Estim Creat Clear Calc Estimated GFR POC Glucose 185 H Random Glucose Lactic Acid Calcium Phosphorus Magnesium Total Bilirubin AST ALT Alkaline Phosphatase Total Protein Albumin Beta-Hydroxybutyrate Urine Color Urine Appearance Urine pH Ur Specific [place] Urine Protein Urine Glucose (UA) Urine Ketones Urine Blood Urine Nitrite Ur Leukocyte Esterase Urine RBC Urine WBC Ur Squamous Epith Cells Urine Bacteria Hyaline Casts Progress Note: A&P Assessment and plan (1) DKA (diabetic ketoacidosis): Status: Acute (2) CAD (coronary artery disease): Status: Acute Plan Assessment: 89-year-old lady with underlying diabetes mellitus in CAD admitted with DKA with unclear precipitant, possible UTI Plan: Neuro: No acute issues. Cardiac: No acute issues. Underlying CAD. Pulmonary: No acute issues. Renal: No acute issues. Endo: DKA resolved, titrated off insulin drip. Continue subcutaneous insulin. GI: No acute issues. ID: Urine culture only shows contamination. Heme/Onc: No acute issues. Psych: No acute issues. Miscellaneous: No acute issues. Prophylaxis: Heparin Diet: Diabetic Quality Stroke Does the patient have a stroke diagnosis?: No VTE Prior VTE?: No VTE Risk Level:: Medical - moderate - high VTE Device Contraindication: Treatment Not Indicated VTE Drug Contraindication: N/A - Med Ordered
[2025-03-12 11:11] LABS: Glucose, Whole Blood 226 mg/dL (60-115)
[2025-03-12 11:11] LABS: Anion Gap 19 (12-20); Blood Urea Nitrogen 21 mg/dL (9-16); Calcium 8.7 mg/dL (8.4-10.2); Carbon Dioxide 12 mmol/L (22-29); Chloride 109 mmol/L (96-108); Creatinine Clr Calc Pharmacy 40.5; Estimated Glomerular Filt Rate 53; Glucose Random 250 mg/dL (60-115); Potassium 5.2 mmol/L (3.3-5.1); Sodium 135 mmol/L (135-145)
[2025-03-12 11:58] LABS: ABG HCO3 17 mmol/L (22-26); ABG pCO2 25 mmHg (32-45); ABG pH 7.44 (7.35-7.45); ABG pO2 97 mmHg (83-108)
[2025-03-12] MEDS: Nystatin Powder 15 GM BOTTLE 1 APPL TOPICAL (14:29)
--- NOTE | 2025-03-12 14:36 | MHC.CM.PN ---
Pt in ICU w/DKA: pt requests CM contact family for detailed information re: d/c needs. Msg left for son/dtr in law: Per EMR, pt resides at home having recently d/c'd from [facility]. ? Services. CM to follow for finalization of d/c needs
[2025-03-12 15:20] LABS: ABG Refer to POC result
[2025-03-12 17:34] LABS: Glucose, Whole Blood 269 mg/dL (60-115)
--- NOTE | 2025-03-12 18:22 | PC.NURSE ---
Admitted for management of DKA Neuro/Resp: Alert &Oriented, hard of hearing, hearing aids placed. On RA. Cardiac:? 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 External catheter in place Endocrine/Metabolic: Transition to SQ insulin overnight, on sliding scale insulin per MAR.? Approx 1100 labs: (pH 7.44 , HCO3 17, AG 19) Skin:see skin assessment Lines: Peripheral IV x2.
[2025-03-12 19:09] LABS: Anion Gap 20 (12-20); Blood Urea Nitrogen 18 mg/dL (9-16); Calcium 8.5 mg/dL (8.4-10.2); Carbon Dioxide 14 mmol/L (22-29); Chloride 104 mmol/L (96-108); Creatinine Clr Calc Pharmacy 40.5; Estimated Glomerular Filt Rate 53; Glucose Random 292 mg/dL (60-115); Potassium 4.5 mmol/L (3.3-5.1); Sodium 133 mmol/L (135-145)
[2025-03-12] MEDS: Insulin Regular/NS 100 UNIT/100 ML PLAST..BAG 6 UNIT IVCONT (19:37)
[2025-03-12] MEDS: Lactated Ringers 1,000 ML 150 ML IVCONT (19:37)
[2025-03-12 20:12] LABS: Glucose, Whole Blood 249 mg/dL (60-115)
[2025-03-12 21:13] LABS: Glucose, Whole Blood 200 mg/dL (60-115)
[2025-03-12] MEDS: hydrALAZINE HCl 10 MG TABLET PO (21:26)
[2025-03-12 22:06] LABS: Glucose, Whole Blood 121 mg/dL (60-115)
[2025-03-12] MEDS: Dextrose 5 % and Lactated Ring 1,000 ML 125 ML IVCONT (22:17)
[2025-03-12 22:58] LABS: Glucose, Whole Blood 97 mg/dL (60-115)
[2025-03-13] VITALS (25 sets, daily range): BP systolic 100–151; BP diastolic 31–73; PULSE 72–88; RESP 13–28; TEMP 36–37.3; O2SAT 92–98; BMI 32.1
[2025-03-13] LABS: Glucose, Whole Blood 109 mg/dL (60-115)
[2025-03-13 01:39] LABS: Glucose, Whole Blood 103 mg/dL (60-115)
[2025-03-13 02:13] LABS: Glucose, Whole Blood 96 mg/dL (60-115)
[2025-03-13 03:08] LABS: Glucose, Whole Blood 91 mg/dL (60-115)
[2025-03-13 04:08] LABS: Glucose, Whole Blood 119 mg/dL (60-115)
--- NOTE | 2025-03-13 04:14 | PC.NURSE ---
KAELYN Abarca notified of 1800 lab results. New order to restart insulin gtt and IVF, administered/titrated per MAR. POC checked q1hr. Pt/family updated at bedside and aware of pt status/plan of care.
[2025-03-13] MEDS: Levothyroxine Sodium 112 MCG TABLET PO (04:54)
[2025-03-13 04:58] LABS: Glucose, Whole Blood 129 mg/dL (60-115)
[2025-03-13 05:10] LABS: MANUAL DIFF FLAG NO
[2025-03-13 05:11] LABS: Basophils Percent Auto 0.4 % (0-2); Eosinophils Percent Auto 0.4 % (0-4); Hematocrit 28.6 % (37.0-47.0); Hemoglobin 9.5 g/dl (12.0-16.0); Imm Gran Abs Auto 0.01 X10*3/uL (0.00-0.03); Imm Gran Pct Auto 0.2 % (0.0-0.4); Lymphocytes Absolute Auto 0.9 X10*3/uL (1.2-4.9); Lymphocytes Percent Auto 17.5 % (20-40); Mean Corpuscular HGB Conc 33.2 g/dl (31.0-35.0); Mean Corpuscular Volume 78.4 fL (80.0-98.0); Monocytes Absolute Auto 0.6 X10*3/uL (0.1-1.2); Monocytes Percent Auto 11.8 % (2-11); Neutrophils Absolute Auto 3.5 x10*3/uL (2.0-8.3); Neutrophils Percent Auto 69.7 % (45-73); Platelet Count 204 X10*3/uL (160-400); Red Blood Count 3.65 X10*6/uL (4.20-5.50); Red Cell Distribution Width 17.6 % (11.0-16.0)
[2025-03-13 05:26] LABS: Albumin Level 2.9 g/dL (3.5-5.0); Anion Gap 14 (12-20); Blood Urea Nitrogen 12 mg/dL (9-16); Calcium 7.9 mg/dL (8.4-10.2); Carbon Dioxide 19 mmol/L (22-29); Chloride 104 mmol/L (96-108); Creatinine Clr Calc Pharmacy 48.4; Estimated Glomerular Filt Rate > 60; Glucose Random 130 mg/dL (60-115); Magnesium 1.6 mg/dL (1.6-2.6); Phosphorus 2.2 mg/dL (2.7-4.5); Potassium 3.6 mmol/L (3.3-5.1); Sodium 133 mmol/L (135-145)
[2025-03-13 06:18] LABS: Glucose, Whole Blood 156 mg/dL (60-115)
[2025-03-13] MEDS: Potassium Phosphate/NS 15 MMOL/250 ML PLAST..BAG 62.5 MMOL IV ×2 (06:18→10:28)
[2025-03-13] MEDS: Potassium Chloride Packet 20 MEQ PACKET 40 MEQ PO (06:18)
[2025-03-13] MEDS: Heparin Sodium,Porcine 5,000 UNIT/ML VIAL 5000 UNIT SUBCUT ×3 (06:18→20:59)
[2025-03-13] MEDS: Dextrose 5 % and Lactated Ring 1,000 ML 125 ML IVCONT ×2 (06:19→14:19)
[2025-03-13 06:53] LABS: Glucose, Whole Blood 137 mg/dL (60-115)
[2025-03-13] MEDS: 0.9 % Sodium Chloride Flush 3 ML SYRINGE IVFLUSH ×3 (08:36→21:00)
[2025-03-13] MEDS: Magnesium Sulfate/D5W 1 GM/100 ML PIGGYBACK IV (08:36)
[2025-03-13] MEDS: Nystatin Powder 15 GM BOTTLE 1 APPL TOPICAL ×2 (08:39→14:32)
[2025-03-13 09:01] LABS: Glucose, Whole Blood 123 mg/dL (60-115)
[2025-03-13 09:01] LABS: Glucose, Whole Blood 111 mg/dL (60-115)
[2025-03-13 09:58] LABS: Glucose, Whole Blood 106 mg/dL (60-115)
[2025-03-13] MEDS: Albumin Human 25 % 50 ML 100 ML IV ×2 (10:27→11:07)
[2025-03-13 11:08] LABS: Glucose, Whole Blood 134 mg/dL (60-115)
--- NOTE | 2025-03-13 11:51 | PM.CCPN ---
Subjective Subjective Date of Service: 03/13/25 Interval History: 89-year-old lady with underlying history of CAD diabetes mellitus, recent fracture status post ORIF admitted 03/11/2025 with hyperglycemia and diabetic ketoacidosis requiring insulin drip. Titrated off insulin drip on 03/12/2025, however she reopened her anion gap and required re-initiation of insulin drip. No events overnight. Critical Care Time (minutes): 0 Physical Exam Vital Signs: Vital Signs: Last Vital Signs Temp 97.1 F 03/13/25 08:00 Pulse 79 03/13/25 11:00 Resp 19 03/13/25 11:00 BP 125/55 L 03/13/25 11:00 Pulse Ox 93 03/13/25 11:00 O2 Del Method Room Air 03/13/25 11:00 BMI result Body Mass Index 32.1 Const: General: no acute distress, alert and awake Eyes: Sclerae: sclerae normal EOM: EOMs intact bilaterally Neck: Neck: Yes no lymphadenopathy, Yes trachea midline and Yes supple Resp: Effort & Inspection: normal respiratory effort and no respiratory distress Auscultation: clear to auscultation bilaterally Cardio: Rate: regular rate Rhythm: regular rhythm Heart sounds: no gallops, no murmurs and no rubs GI: Palpation (GI): Soft to palpation and Other GI palpation findings present ( Nontender) Auscultation: normal bowel sounds Extrem: General: Yes no pedal edema, No clubbing and No cyanosis Objective Data Labs 03/13/25 05:03 03/13/25 05:03 Labs: Laboratory Results - last 24 hr 03/12/25 03/12/25 03/12/25 11:54 17:31 18:15 WBC RBC Hgb Hct MCV MCH MCHC RDW Plt Count MPV Immature Gran % (Auto) Neut % (Auto) Lymph % (Auto) [place] % (Auto) Eos % (Auto) Baso % (Auto) Lymph # (Auto) [place] # (Auto) Eos # (Auto) Baso # (Auto) Abs Immat Gran (auto) Absolute Neuts (auto) Absolute Nucleated RBC Nucleated RBC % (auto) O2 Saturation 99.0 ABG pH at Pt Temp 7.44 ABG pCO2 at Pt Temp 25 L ABG pO2 at Pt Temp 97 ABG HCO3 17 L ABG Base Excess (Actual) -5.0 Sodium 133 L Potassium 4.5 Chloride 104 Carbon Dioxide 14 L Anion Gap 20 BUN 18 H Creatinine 0.99 Estim Creat Clear Calc 40.5 Estimated GFR 53 POC Glucose 269 H Random Glucose 292 H Calcium 8.5 Phosphorus Magnesium Albumin 03/12/25 03/12/25 03/12/25 20:09 21:08 22:03 WBC RBC Hgb Hct MCV MCH MCHC RDW Plt Count MPV Immature Gran % (Auto) Neut % (Auto) Lymph % (Auto) [place] % (Auto) Eos % (Auto) Baso % (Auto) Lymph # (Auto) [place] # (Auto) Eos # (Auto) Baso # (Auto) Abs Immat Gran (auto) Absolute Neuts (auto) Absolute Nucleated RBC Nucleated RBC % (auto) O2 Saturation ABG pH at Pt Temp ABG pCO2 at Pt Temp ABG pO2 at Pt Temp ABG HCO3 ABG Base Excess (Actual) Sodium Potassium Chloride Carbon Dioxide Anion Gap BUN Creatinine Estim Creat Clear Calc Estimated GFR POC Glucose 249 H 200 H 121 H Random Glucose Calcium Phosphorus Magnesium Albumin 03/12/25 03/12/25 03/13/25 22:54 23:55 01:35 WBC RBC Hgb Hct MCV MCH MCHC RDW Plt Count MPV Immature Gran % (Auto) Neut % (Auto) Lymph % (Auto) [place] % (Auto) Eos % (Auto) Baso % (Auto) Lymph # (Auto) [place] # (Auto) Eos # (Auto) Baso # (Auto) Abs Immat Gran (auto) Absolute Neuts (auto) Absolute Nucleated RBC Nucleated RBC % (auto) O2 Saturation ABG pH at Pt Temp ABG pCO2 at Pt Temp ABG pO2 at Pt Temp ABG HCO3 ABG Base Excess (Actual) Sodium Potassium Chloride Carbon Dioxide Anion Gap BUN Creatinine Estim Creat Clear Calc Estimated GFR POC Glucose 97 109 103 Random Glucose Calcium Phosphorus Magnesium Albumin 03/13/25 03/13/25 03/13/25 02:09 03:04 04:04 WBC RBC Hgb Hct MCV MCH MCHC RDW Plt Count MPV Immature Gran % (Auto) Neut % (Auto) Lymph % (Auto) [place] % (Auto) Eos % (Auto) Baso % (Auto) Lymph # (Auto) [place] # (Auto) Eos # (Auto) Baso # (Auto) Abs Immat Gran (auto) Absolute Neuts (auto) Absolute Nucleated RBC Nucleated RBC % (auto) O2 Saturation ABG pH at Pt Temp ABG pCO2 at Pt Temp ABG pO2 at Pt Temp ABG HCO3 ABG Base Excess (Actual) Sodium Potassium Chloride Carbon Dioxide Anion Gap BUN Creatinine Estim Creat Clear Calc Estimated GFR POC Glucose 96 91 119 H Random Glucose Calcium Phosphorus Magnesium Albumin 03/13/25 03/13/25 03/13/25 04:53 05:03 06:14 WBC 5.0 RBC 3.65 L Hgb 9.5 L Hct 28.6 L MCV 78.4 L MCH 26.0 L MCHC 33.2 RDW 17.6 H Plt Count 204 MPV 10.0 Immature Gran % (Auto) 0.2 Neut % (Auto) 69.7 Lymph % (Auto) 17.5 L [place] % (Auto) 11.8 H Eos % (Auto) 0.4 Baso % (Auto) 0.4 Lymph # (Auto) 0.9 L [place] # (Auto) 0.6 Eos # (Auto) 0.0 Baso # (Auto) 0.0 Abs Immat Gran (auto) 0.01 Absolute Neuts (auto) 3.5 Absolute Nucleated RBC 0.000 Nucleated RBC % (auto) 0.0 O2 Saturation ABG pH at Pt Temp ABG pCO2 at Pt Temp ABG pO2 at Pt Temp ABG HCO3 ABG Base Excess (Actual) Sodium 133 L Potassium 3.6 Chloride 104 Carbon Dioxide 19 L Anion Gap 14 BUN 12 Creatinine 0.83 Estim Creat Clear Calc 48.4 Estimated GFR > 60 POC Glucose 129 H 156 H Random Glucose 130 H Calcium 7.9 L D Phosphorus 2.2 L Magnesium 1.6 Albumin 2.9 L 03/13/25 03/13/25 03/13/25 06:49 07:56 08:57 WBC RBC Hgb Hct MCV MCH MCHC RDW Plt Count MPV Immature Gran % (Auto) Neut % (Auto) Lymph % (Auto) [place] % (Auto) Eos % (Auto) Baso % (Auto) Lymph # (Auto) [place] # (Auto) Eos # (Auto) Baso # (Auto) Abs Immat Gran (auto) Absolute Neuts (auto) Absolute Nucleated RBC Nucleated RBC % (auto) O2 Saturation ABG pH at Pt Temp ABG pCO2 at Pt Temp ABG pO2 at Pt Temp ABG HCO3 ABG Base Excess (Actual) Sodium Potassium Chloride Carbon Dioxide Anion Gap BUN Creatinine Estim Creat Clear Calc Estimated GFR POC Glucose 137 H 123 H 111 Random Glucose Calcium Phosphorus Magnesium Albumin 03/13/25 03/13/25 09:52 11:04 WBC RBC Hgb Hct MCV MCH MCHC RDW Plt Count MPV Immature Gran % (Auto) Neut % (Auto) Lymph % (Auto) [place] % (Auto) Eos % (Auto) Baso % (Auto) Lymph # (Auto) [place] # (Auto) Eos # (Auto) Baso # (Auto) Abs Immat Gran (auto) Absolute Neuts (auto) Absolute Nucleated RBC Nucleated RBC % (auto) O2 Saturation ABG pH at Pt Temp ABG pCO2 at Pt Temp ABG pO2 at Pt Temp ABG HCO3 ABG Base Excess (Actual) Sodium Potassium Chloride Carbon Dioxide Anion Gap BUN Creatinine Estim Creat Clear Calc Estimated GFR POC Glucose 106 134 H Random Glucose Calcium Phosphorus Magnesium Albumin Microbiology Microbiology Results: Microbiology 03/11/25 14:55 Blood - Venous Blood Culture - Preliminary No growth after 24 hours. 03/11/25 14:55 Blood - Venous Blood Culture - Preliminary No growth after 24 hours. Progress Note: A&P Assessment and plan (1) DKA (diabetic ketoacidosis): Status: Acute (2) Acute renal failure: Status: Acute (3) CAD (coronary artery disease): Status: Acute Plan Assessment: 89-year-old lady with underlying diabetes mellitus in CAD admitted with DKA with unclear precipitant, possible UTI Plan: Neuro: No acute issues. Cardiac: No acute issues. Underlying CAD. Pulmonary: No acute issues. Renal: No acute issues. Endo: DKA continue to titrate off insulin drip as tolerated. GI: No acute issues. ID: Urine culture only shows contamination. Heme/Onc: No acute issues. Psych: No acute issues. Miscellaneous: No acute issues. Prophylaxis: Heparin Diet: Diabetic Quality Stroke Does the patient have a stroke diagnosis?: No VTE Prior VTE?: No VTE Risk Level:: Medical - moderate - high VTE Device Contraindication: Treatment Not Indicated VTE Drug Contraindication: N/A - Med Ordered
[2025-03-13 11:59] LABS: Glucose, Whole Blood 163 mg/dL (60-115)
[2025-03-13 13:06] LABS: Glucose, Whole Blood 141 mg/dL (60-115)
[2025-03-13 14:09] LABS: Glucose, Whole Blood 132 mg/dL (60-115)
[2025-03-13 14:29] LABS: Anion Gap 13 (12-20); Blood Urea Nitrogen 8 mg/dL (9-16); Calcium 8.2 mg/dL (8.4-10.2); Carbon Dioxide 21 mmol/L (22-29); Chloride 104 mmol/L (96-108); Creatinine Clr Calc Pharmacy 50.8; Estimated Glomerular Filt Rate > 60; Glucose Random 128 mg/dL (60-115); Potassium 3.9 mmol/L (3.3-5.1); Sodium 134 mmol/L (135-145)
--- NOTE | 2025-03-13 14:53 | MHC.CM.PN ---
PER REVIEW OF EMR, PT REMAINS IN ICU ON AN INSULIN GTT. CM SPOKE WITH DAUGHTER YUNIOR WHO STATES MOTHER WAS JUST RECENTLY DC FROM [facility], LIVES ALONE. PT WAS SET UP WITH [facility], THEY SAW HER ONCE THEN PT WAS HOSPITALIZED. RETURN REFERRAL SENT. CM WILL AWAIT A P.T. EVAL TO DETERMINE FINAL DC NEEDS/PLAN.
[2025-03-13 15:09] LABS: Glucose, Whole Blood 109 mg/dL (60-115)
[2025-03-13] MEDS: Insulin Glargine,Hum.rec.anlog 100 UNIT/ML 10 ML VIAL 25 UNIT SUBCUT (16:00)
[2025-03-13 17:18] LABS: Glucose, Whole Blood 130 mg/dL (60-115)
--- NOTE | 2025-03-13 18:50 | PC.NURSE ---
Care assumed @ 0700? Neuro/Resp: Alert & Oriented, hard of hearing, hearing aids at bedside. On RA. Cardiac:? Sinus Rhythm GI/: LBM 03/13, + bowel sounds, Abdomen soft, non-tender. External catheter in place Endocrine/Metabolic: Transition to SQ insulin approx 1615, on sliding scale insulin per MAR.? Skin:see skin assessment Lines: Peripheral IV x2.
[2025-03-13 20:38] LABS: Glucose, Whole Blood 198 mg/dL (60-115)
[2025-03-13 20:41] LABS: Anion Gap 16 (12-20); Blood Urea Nitrogen 7 mg/dL (9-16); Calcium 7.8 mg/dL (8.4-10.2); Carbon Dioxide 18 mmol/L (22-29); Chloride 102 mmol/L (96-108); Creatinine Clr Calc Pharmacy 53.6; Estimated Glomerular Filt Rate > 60; Glucose Random 226 mg/dL (60-115); Potassium 4.2 mmol/L (3.3-5.1); Sodium 132 mmol/L (135-145)
[2025-03-13] MEDS: Acetaminophen 325 MG TABLET 650 MG PO (20:55)
[2025-03-13] MEDS: Insulin Lispro 100 UNIT/ML 3 ML VIAL SUBCUT (20:55)
[2025-03-13 21:11] LABS: Magnesium 1.6 mg/dL (1.6-2.6); Phosphorus 3.2 mg/dL (2.7-4.5)
[2025-03-14] VITALS (16 sets, daily range): BP systolic 111–155; BP diastolic 61–79; PULSE 71–86; RESP 13–26; TEMP 36.2–37.2; O2SAT 92–98; BMI 32.1; BMI 31.6
[2025-03-14 00:04] LABS: Anion Gap 13 (12-20); Blood Urea Nitrogen 8 mg/dL (9-16); Carbon Dioxide 22 mmol/L (22-29); Chloride 102 mmol/L (96-108); Creatinine Clr Calc Pharmacy 52.1; Estimated Glomerular Filt Rate > 60; Glucose Random 205 mg/dL (60-115); Magnesium 1.6 mg/dL (1.6-2.6); Phosphorus 2.9 mg/dL (2.7-4.5); Potassium 3.8 mmol/L (3.3-5.1); Sodium 133 mmol/L (135-145)
[2025-03-14 05:33] LABS: VBG Base Excess 2.3 mmol/L; VBG HCO3 23 mmol/L (22-26); VBG pCO2 28 mmHg; VBG pH 7.53 (7.32-7.43); VBG pO2 52 mmHg
[2025-03-14 05:34] LABS: MANUAL DIFF FLAG NO
[2025-03-14 05:35] LABS: Basophils Percent Auto 0.5 % (0-2); Eosinophils Percent Auto 0.4 % (0-4); Hemoglobin 10.8 g/dl (12.0-16.0); Imm Gran Abs Auto 0.02 X10*3/uL (0.00-0.03); Imm Gran Pct Auto 0.4 % (0.0-0.4); Lymphocytes Absolute Auto 1.1 X10*3/uL (1.2-4.9); Lymphocytes Percent Auto 20.1 % (20-40); Mean Corpuscular HGB Conc 32.7 g/dl (31.0-35.0); Mean Corpuscular Hemoglobin 25.9 pg (27.0-33.0); Mean Corpuscular Volume 79.1 fL (80.0-98.0); Mean Platelet Volume 10.1 fL (9.4-12.3); Monocytes Absolute Auto 0.5 X10*3/uL (0.1-1.2); Monocytes Percent Auto 9.5 % (2-11); Neutrophils Absolute Auto 3.8 x10*3/uL (2.0-8.3); Neutrophils Percent Auto 69.1 % (45-73); Platelet Count 212 X10*3/uL (160-400); Red Blood Count 4.17 X10*6/uL (4.20-5.50); Red Cell Distribution Width 17.9 % (11.0-16.0); White Blood Count 5.6 X10*3/uL (4.8-10.8)
[2025-03-14] MEDS: Levothyroxine Sodium 112 MCG TABLET PO (05:44)
[2025-03-14] MEDS: Heparin Sodium,Porcine 5,000 UNIT/ML VIAL 5000 UNIT SUBCUT ×3 (05:44→22:24)
[2025-03-14 05:57] LABS: Albumin Level 3.1 g/dL (3.5-5.0); Anion Gap 14 (12-20); Blood Urea Nitrogen 7 mg/dL (9-16); Calcium 8.1 mg/dL (8.4-10.2); Carbon Dioxide 22 mmol/L (22-29); Chloride 103 mmol/L (96-108); Creatinine Clr Calc Pharmacy 55.8; Estimated Glomerular Filt Rate > 60; Glucose Random 186 mg/dL (60-115); Magnesium 1.7 mg/dL (1.6-2.6); Phosphorus 2.9 mg/dL (2.7-4.5); Potassium 3.8 mmol/L (3.3-5.1); Sodium 135 mmol/L (135-145)
[2025-03-14 06:38] LABS: Venous Blood Gas Refer to POC result
[2025-03-14 07:18] LABS: Glucose, Whole Blood 192 mg/dL (60-115)
[2025-03-14] MEDS: Insulin Lispro 100 UNIT/ML 3 ML VIAL SUBCUT ×3 (07:39→16:56)
[2025-03-14] MEDS: Insulin Glargine,Hum.rec.anlog 100 UNIT/ML 10 ML VIAL 25 UNIT SUBCUT (07:39)
[2025-03-14] MEDS: 0.9 % Sodium Chloride Flush 3 ML SYRINGE IVFLUSH ×3 (07:43→21:28)
[2025-03-14] MEDS: Albumin Human 25 % 100 ML IV ×2 (07:43→13:30)
--- NOTE | 2025-03-14 10:08 | P.PNCC_ITS ---
Subjective Subjective Date of Service: 03/14/25 Interval History: 89-year-old lady with underlying history of CAD diabetes mellitus, recent fracture status post ORIF admitted 03/11/2025 with hyperglycemia and diabetic ketoacidosis requiring insulin drip. Titrated off insulin drip on 03/12/2025, however she reopened her anion gap and required re-initiation of insulin drip. No events overnight. Titrated off insulin drip. Critical Care Time (minutes): 0 Physical Exam 2 Vital Signs: Vital Signs: Last Vital Signs Temp 97.2 F 03/14/25 07:30 Pulse 75 03/14/25 09:00 Resp 25 H 03/14/25 09:00 BP 138/70 03/14/25 09:00 Pulse Ox 94 03/14/25 09:00 O2 Del Method Nasal Cannula 03/14/25 09:00 O2 Flow Rate 2 03/14/25 09:00 BMI result Body Mass Index 32.1 Const: General: no acute distress, alert and awake Eyes: Sclerae: sclerae normal EOM: EOMs intact bilaterally Neck: Neck: Yes no lymphadenopathy, Yes trachea midline and Yes supple Resp: Effort & Inspection: normal respiratory effort and no respiratory distress Auscultation: clear to auscultation bilaterally Cardio: Rate: regular rate Rhythm: regular rhythm Heart sounds: no gallops, no murmurs and no rubs GI: Palpation (GI): Soft to palpation and Other GI palpation findings present ( Nontender) Auscultation: normal bowel sounds Extrem: General: Yes no pedal edema, No clubbing and No cyanosis Objective Data Labs 03/14/25 05:27 03/14/25 05:27 Labs: Laboratory Results - last 24 hr 03/13/25 03/13/25 03/13/25 11:04 11:55 13:02 WBC RBC Hgb Hct MCV MCH MCHC RDW Plt Count MPV Immature Gran % (Auto) Neut % (Auto) Lymph % (Auto) [place] % (Auto) Eos % (Auto) Baso % (Auto) Lymph # (Auto) [place] # (Auto) Eos # (Auto) Baso # (Auto) Abs Immat Gran (auto) Absolute Neuts (auto) Absolute Nucleated RBC Nucleated RBC % (auto) VBG pH VBG pCO2 VBG pO2 VBG HCO3 VBG O2 Saturation VBG Base Excess Sodium Potassium Chloride Carbon Dioxide Anion Gap BUN Creatinine Estim Creat Clear Calc Estimated GFR POC Glucose 134 H 163 H 141 H Random Glucose Calcium Phosphorus Magnesium Albumin 03/13/25 03/13/25 03/13/25 13:56 14:10 15:04 WBC RBC Hgb Hct MCV MCH MCHC RDW Plt Count MPV Immature Gran % (Auto) Neut % (Auto) Lymph % (Auto) [place] % (Auto) Eos % (Auto) Baso % (Auto) Lymph # (Auto) [place] # (Auto) Eos # (Auto) Baso # (Auto) Abs Immat Gran (auto) Absolute Neuts (auto) Absolute Nucleated RBC Nucleated RBC % (auto) VBG pH VBG pCO2 VBG pO2 VBG HCO3 VBG O2 Saturation VBG Base Excess Sodium 134 L Potassium 3.9 Chloride 104 Carbon Dioxide 21 L Anion Gap 13 BUN 8 L Creatinine 0.79 Estim Creat Clear Calc 50.8 Estimated GFR > 60 POC Glucose 132 H 109 Random Glucose 128 H Calcium 8.2 L Phosphorus Magnesium Albumin 03/13/25 03/13/25 03/13/25 17:06 20:09 20:35 WBC RBC Hgb Hct MCV MCH MCHC RDW Plt Count MPV Immature Gran % (Auto) Neut % (Auto) Lymph % (Auto) [place] % (Auto) Eos % (Auto) Baso % (Auto) Lymph # (Auto) [place] # (Auto) Eos # (Auto) Baso # (Auto) Abs Immat Gran (auto) Absolute Neuts (auto) Absolute Nucleated RBC Nucleated RBC % (auto) VBG pH VBG pCO2 VBG pO2 VBG HCO3 VBG O2 Saturation VBG Base Excess Sodium 132 L Potassium 4.2 Chloride 102 Carbon Dioxide 18 L Anion Gap 16 BUN 7 L Creatinine 0.75 Estim Creat Clear Calc 53.6 Estimated GFR > 60 POC Glucose 130 H 198 H Random Glucose 226 H Calcium 7.8 L Phosphorus 3.2 Magnesium 1.6 Albumin 03/13/25 03/14/25 03/14/25 23:22 05:27 05:28 WBC 5.6 RBC 4.17 L Hgb 10.8 L Hct 33.0 L MCV 79.1 L MCH 25.9 L MCHC 32.7 RDW 17.9 H Plt Count 212 MPV 10.1 Immature Gran % (Auto) 0.4 Neut % (Auto) 69.1 Lymph % (Auto) 20.1 [place] % (Auto) 9.5 Eos % (Auto) 0.4 Baso % (Auto) 0.5 Lymph # (Auto) 1.1 L [place] # (Auto) 0.5 Eos # (Auto) 0.0 Baso # (Auto) 0.0 Abs Immat Gran (auto) 0.02 Absolute Neuts (auto) 3.8 Absolute Nucleated RBC 0.000 Nucleated RBC % (auto) 0.0 VBG pH 7.53 H VBG pCO2 28 VBG pO2 52 VBG HCO3 23 VBG O2 Saturation 85.0 VBG Base Excess 2.3 Sodium 133 L 135 Potassium 3.8 3.8 Chloride 102 103 Carbon Dioxide 22 22 Anion Gap 13 14 BUN 8 L 7 L Creatinine 0.77 0.72 Estim Creat Clear Calc 52.1 55.8 Estimated GFR > 60 > 60 POC Glucose Random Glucose 205 H 186 H Calcium 8.0 L 8.1 L Phosphorus 2.9 2.9 Magnesium 1.6 1.7 Albumin 3.1 L 03/14/25 07:10 WBC RBC Hgb Hct MCV MCH MCHC RDW Plt Count MPV Immature Gran % (Auto) Neut % (Auto) Lymph % (Auto) [place] % (Auto) Eos % (Auto) Baso % (Auto) Lymph # (Auto) [place] # (Auto) Eos # (Auto) Baso # (Auto) Abs Immat Gran (auto) Absolute Neuts (auto) Absolute Nucleated RBC Nucleated RBC % (auto) VBG pH VBG pCO2 VBG pO2 VBG HCO3 VBG O2 Saturation VBG Base Excess Sodium Potassium Chloride Carbon Dioxide Anion Gap BUN Creatinine Estim Creat Clear Calc Estimated GFR POC Glucose 192 H Random Glucose Calcium Phosphorus Magnesium Albumin Microbiology Microbiology Results: Microbiology 03/11/25 14:55 Blood - Venous Blood Culture - Preliminary No growth after 48 hours. 03/11/25 14:55 Blood - Venous Blood Culture - Preliminary No growth after 48 hours. Progress Note: A&P Assessment and plan (1) DKA (diabetic ketoacidosis): Status: Acute (2) CAD (coronary artery disease): Status: Acute Plan Assessment: 89-year-old lady with underlying diabetes mellitus in CAD admitted with DKA with unclear precipitant, possible UTI Plan: Neuro: No acute issues. Cardiac: No acute issues. Underlying CAD. Pulmonary: No acute issues. Renal: No acute issues. Endo: DKA resolved, titrated off insulin drip. Continue subcutaneous insulin. GI: No acute issues. ID: Urine culture only shows contamination. Heme/Onc: No acute issues. Psych: No acute issues. Miscellaneous: No acute issues. Prophylaxis: Heparin Diet: Diabetic Quality Stroke Does the patient have a stroke diagnosis?: No VTE Prior VTE?: No VTE Risk Level:: Medical - moderate - high VTE Device Contraindication: Treatment Not Indicated VTE Drug Contraindication: N/A - Med Ordered
[2025-03-14 11:39] LABS: Glucose, Whole Blood 207 mg/dL (60-115)
[2025-03-14] MEDS: Nystatin Powder 15 GM BOTTLE 1 APPL TOPICAL ×2 (13:31→21:07)
[2025-03-14 16:32] LABS: Glucose, Whole Blood 181 mg/dL (60-115)
--- NOTE | 2025-03-14 19:02 | PC.NURSE ---
patient has a heart monitor on left chest from home,Dr. Pryor made aware
[2025-03-14 19:38] LABS: Glucose, Whole Blood 150 mg/dL (60-115)
[2025-03-14] MEDS: Acetaminophen 325 MG TABLET 650 MG PO (21:24)
[2025-03-15 03:36] VITALS: BP 139/65; PULSE 69; RESP 20; TEMP 36.8; O2SAT 92
[2025-03-15 05:56] VITALS: BMI 34.7
[2025-03-15 06:01] LABS: MANUAL DIFF FLAG NO
[2025-03-15] MEDS: Heparin Sodium,Porcine 5,000 UNIT/ML VIAL 5000 UNIT SUBCUT ×3 (06:10→21:58)
[2025-03-15] MEDS: Levothyroxine Sodium 112 MCG TABLET PO (06:10)
[2025-03-15 06:25] LABS: Albumin Level 3.6 g/dL (3.5-5.0); Anion Gap 13 (12-20); Basophils Percent Auto 0.2 % (0-2); Blood Urea Nitrogen 10 mg/dL (9-16); Calcium 8.6 mg/dL (8.4-10.2); Carbon Dioxide 24 mmol/L (22-29); Chloride 100 mmol/L (96-108); Creatinine Clr Calc Pharmacy 65.4; Eosinophils Percent Auto 0.2 % (0-4); Estimated Glomerular Filt Rate > 60; Glucose Random 178 mg/dL (60-115); Hematocrit 32.5 % (37.0-47.0); Hemoglobin 10.7 g/dl (12.0-16.0); Imm Gran Abs Auto 0.02 X10*3/uL (0.00-0.03); Imm Gran Pct Auto 0.3 % (0.0-0.4); Lymphocytes Absolute Auto 1.5 X10*3/uL (1.2-4.9); Lymphocytes Percent Auto 24.2 % (20-40); Magnesium 1.7 mg/dL (1.6-2.6); Mean Corpuscular HGB Conc 32.9 g/dl (31.0-35.0); Mean Corpuscular Volume 78.9 fL (80.0-98.0); Mean Platelet Volume 11.7 fL (9.4-12.3); Monocytes Absolute Auto 0.5 X10*3/uL (0.1-1.2); Monocytes Percent Auto 8.4 % (2-11); Neutrophils Percent Auto 66.7 % (45-73); Phosphorus 2.4 mg/dL (2.7-4.5); Platelet Count 203 X10*3/uL (160-400); Potassium 3.6 mmol/L (3.3-5.1); Red Blood Count 4.12 X10*6/uL (4.20-5.50); Red Cell Distribution Width 18.1 % (11.0-16.0); Sodium 133 mmol/L (135-145)
[2025-03-15 07:22] LABS: Glucose, Whole Blood 195 mg/dL (60-115)
[2025-03-15] MEDS: Insulin Glargine,Hum.rec.anlog 100 UNIT/ML 10 ML VIAL 25 UNIT SUBCUT (07:36)
[2025-03-15] MEDS: Insulin Lispro 100 UNIT/ML 3 ML VIAL SUBCUT ×4 (07:36→20:23)
[2025-03-15] MEDS: Acetaminophen 325 MG TABLET 650 MG PO (07:37)
[2025-03-15] MEDS: 0.9 % Sodium Chloride Flush 3 ML SYRINGE IVFLUSH ×2 (07:39→16:31)
[2025-03-15] MEDS: Nystatin Powder 15 GM BOTTLE 1 APPL TOPICAL ×3 (07:39→20:24)
[2025-03-15 08:00] VITALS: BP 160/76; PULSE 77; RESP 18; TEMP 36.8; O2SAT 91
[2025-03-15] MEDS: ondansetron HCL 4 MG/2 ML VIAL IVPUSH (08:06)
--- NOTE | 2025-03-15 10:58 | MHC.CM.PN ---
Patient transferred form ICU S/P insulin drip for DKA in ICU. Patient was recently @ [facility] s/p ORIF L femur. She was discharged home with [facility]. They had not opened the case. PT gordy gonsalez is home with services. Per MD rounds no dc today. Patient may need to return to [facility]. A referral has been sent to [facility]. A referral has been sent to [facility] [place] [place] home care too. DP home with services vs return to [facility] via BLS.
[2025-03-15 11:40] LABS: Glucose, Whole Blood 210 mg/dL (60-115)
[2025-03-15] MEDS: Omeprazole 20 MG CAPSULE.DR PO ×2 (11:42→16:28)
[2025-03-15] MEDS: Furosemide 20 MG/2 ML VIAL IVPUSH (11:42)
--- NOTE | 2025-03-15 14:25 | P.PNIM_ITS ---
Subjective Subjective Date of Service: 03/15/25 Interval History: feels better overall requiring O2 supplement tolerating diet blood sugar controlled no other events Review of Systems Review of Systems: Yes all other systems are reviewed and are negative Physical Exam 2 Vital Signs: Vital Signs: Last Vital Signs Temp 98.2 F 03/15/25 08:00 Pulse 77 03/15/25 08:00 Resp 18 03/15/25 08:00 BP 160/76 H 03/15/25 08:00 Pulse Ox 91 L 03/15/25 08:00 O2 Del Method Nasal Cannula 03/15/25 08:00 O2 Flow Rate 1.0 03/15/25 08:00 BMI result Body Mass Index 34.7 Const: Other: Constitutional : interactive, not in distress Cardiovascular : no JVP, no lower extremity edema Respiratory : bilateral chest movement, not in resp distress Gastrointestinal: soft, lax, Non tender Skin : Warm, Dry Neurological : Alert & oriented , No focal deficit Objective Data Active Medications Acetaminophen (Acetaminophen 325 Mg Tablet) 650 mg PO Q6H PRN PRN Reason: Pain, Mild 1-3,fever,headache Last Admin: 03/15/25 07:37 Dose: 650 mg Documented By: SHONA Dextrose (Dextrose 50 % 25 Gm/50 Ml Syringe) 25 gm IVPUSH Q30M PRN PRN Reason: BG < 70 Dextrose (Dextrose 50 % 25 Gm/50 Ml Syringe) 25 gm IVPUSH Q15M PRN; Protocol PRN Reason: per Hypoglycemia Standing Ord. Furosemide (Furosemide 20 Mg/2 Ml Vial) 20 mg IVPUSH DAILY ANTONINA; Protocol Last Admin: 03/15/25 11:42 Dose: 20 mg Documented By: SHONA Glucose (Glucose Gel 15 Gm Gel..Gram.) 15 gm PO Q15M PRN; Protocol PRN Reason: per Hypoglycemia Standing Ord. Heparin Sodium (Porcine) (Heparin Sodium,Porcine 5,000 Unit/Ml Vial) 5,000 unit SUBCUT Q8H [facility] Last Admin: 03/15/25 13:52 Dose: 5,000 unit Documented By: SHONA Insulin Glargine (Insulin Glargine,Hum.Rec.Anlog 100 Unit/Ml 10 Ml Vial) 25 unit SUBCUT DAILY [facility] Last Admin: 03/15/25 07:36 Dose: 25 unit Documented By: SHONA Insulin Human Lispro (Insulin Lispro 100 Unit/Ml 3 Ml Vial) 0 unit SUBCUT QIDACHS [facility]; Protocol Last Admin: 03/15/25 11:42 Dose: 4 unit Documented By: SHONA Levothyroxine Sodium (Levothyroxine Sodium 112 Mcg Tablet) 112 mcg PO DAILY@0600 [facility] Last Admin: 03/15/25 06:10 Dose: 112 mcg Documented By: VICTOR HUGO Nystatin (Nystatin Powder 15 Gm Bottle) 1 appl TOPICAL TID [facility]; Protocol Last Admin: 03/15/25 13:53 Dose: 1 appl Documented By: SHONA Omeprazole (Omeprazole 20 Mg Capsule.) 20 mg PO BID@0630,1630 [facility] Last Admin: 03/15/25 11:42 Dose: 20 mg Documented By: SHONA Ondansetron HCl (Ondansetron Hcl 4 Mg/2 Ml Vial) 4 mg IVPUSH Q6H PRN PRN Reason: Nausea and Vomiting Last Admin: 03/15/25 08:06 Dose: 4 mg Documented By: SHONA Pravastatin Sodium (Pravastatin Sodium 80 Mg Tablet) 80 mg PO BEDTIME [facility] Sodium Chloride (0.9 % Sodium Chloride Flush 3 Ml Syringe) 3 ml IVFLUSH QSHIFT [facility] Last Admin: 03/15/25 07:39 Dose: 3 ml Documented By: SHONA Labs 03/15/25 05:33 03/15/25 05:33 Labs: Laboratory Results - last 24 hr 03/14/25 03/14/25 03/15/25 16:27 19:33 05:33 MCV 78.9 L MCH 26.0 L MCHC 32.9 RDW 18.1 H Plt Count 203 MPV 11.7 Immature Gran % (Auto) 0.3 Neut % (Auto) 66.7 Lymph % (Auto) 24.2 [place] % (Auto) 8.4 Eos % (Auto) 0.2 Baso % (Auto) 0.2 Lymph # (Auto) 1.5 [place] # (Auto) 0.5 Eos # (Auto) 0.0 Baso # (Auto) 0.0 Abs Immat Gran (auto) 0.02 Absolute Neuts (auto) 4.0 Absolute Nucleated RBC 0.000 Nucleated RBC % (auto) 0.0 Anion Gap 13 Estim Creat Clear Calc 65.4 Estimated GFR > 60 POC Glucose 181 H 150 H Random Glucose 178 H Calcium 8.6 D Phosphorus 2.4 L Magnesium 1.7 Albumin 3.6 03/15/25 03/15/25 07:11 11:26 MCV MCH MCHC RDW Plt Count MPV Immature Gran % (Auto) Neut % (Auto) Lymph % (Auto) [place] % (Auto) Eos % (Auto) Baso % (Auto) Lymph # (Auto) [place] # (Auto) Eos # (Auto) Baso # (Auto) Abs Immat Gran (auto) Absolute Neuts (auto) Absolute Nucleated RBC Nucleated RBC % (auto) Anion Gap Estim Creat Clear Calc Estimated GFR POC Glucose 195 H 210 H Random Glucose Calcium Phosphorus Magnesium Albumin Assessment and Plan (1) Acute renal failure: Status: Acute (2) CAD (coronary artery disease): Status: Acute (3) DKA (diabetic ketoacidosis): Status: Acute Plan An 89-year-old lady with underlying diabetes mellitus in CAD admitted with DKA with possible UTI acute on chronic diastolic heart failure exacerbation CXR showing fluid overload Start Lasix wean down O2 as tolerated DKA in type 2 diabetes resolved, titrated off insulin drip. Continue subcutaneous insulin Diabetic diet Frailty PT rec home with PT Bacteruria Culture negative, Abx dcd Chronic mild hyponatremia stable, monitor Prophylaxis: Heparin The patient will need overnight stay for treatment of fluids overload to wean her off O2 supplement and monitor blood sugar Quality Stroke Does the patient have a stroke diagnosis?: No VTE Prior VTE?: No VTE Risk Level:: Medical - moderate - high VTE Device Contraindication: Treatment Not Indicated VTE Drug Contraindication: N/A - Med Ordered
[2025-03-15 15:13] VITALS: BP 144/67; PULSE 61; RESP 16; TEMP 37.1; O2SAT 92
[2025-03-15 16:17] LABS: Glucose, Whole Blood 266 mg/dL (60-115)
[2025-03-15 19:34] LABS: Glucose, Whole Blood 195 mg/dL (60-115)
[2025-03-15] MEDS: Pravastatin Sodium 80 MG TABLET PO (20:23)
[2025-03-15 23:51] VITALS: BP 123/63; PULSE 70; RESP 20; TEMP 37.1; O2SAT 93
[2025-03-16] MEDS: Levothyroxine Sodium 112 MCG TABLET PO (05:44)
[2025-03-16] MEDS: Omeprazole 20 MG CAPSULE.DR PO (05:44)
[2025-03-16] MEDS: Heparin Sodium,Porcine 5,000 UNIT/ML VIAL 5000 UNIT SUBCUT (05:46)
[2025-03-16 06:00] VITALS: BMI 31.6
[2025-03-16 07:17] LABS: Glucose, Whole Blood 47 mg/dL (60-115)
[2025-03-16 07:51] VITALS: BP 128/64; PULSE 61; RESP 18; TEMP 36.4; O2SAT 96
[2025-03-16 07:52] LABS: Glucose, Whole Blood 95 mg/dL (60-115)
[2025-03-16] MEDS: Furosemide 20 MG/2 ML VIAL 40 MG IVPUSH (08:27)
[2025-03-16] MEDS: Nystatin Powder 15 GM BOTTLE 1 APPL TOPICAL (08:29)
[2025-03-16] MEDS: Insulin Glargine,Hum.rec.anlog 100 UNIT/ML 10 ML VIAL 20 UNIT SUBCUT (08:29)
[2025-03-16] MEDS: 0.9 % Sodium Chloride Flush 3 ML SYRINGE IVFLUSH (08:30)
--- NOTE | 2025-03-16 10:28 | MHC.CM.PN ---
Addendum entered by Susana Cuevas 03/16/25 11:07: IMM 03/16/25 Patient verbalized understanding of medicare rights Original Note: Patient is discharged to home today. [facility] will provide home services. Patient has arranged for private transportation home.
[2025-03-16 11:36] LABS: Glucose, Whole Blood 276 mg/dL (60-115)
--- NOTE | 2025-03-16 11:48 | PM.DS ---
DS: Providers Provider Date of Service: 03/16/25 Date of admission: 03/11/25 14:19 Date of discharge: 03/16/25 Primary care physician: Janes Foster MD DS: Diagnosis Discharge Diagnosis (1) Acute renal failure: Status: Acute (2) CAD (coronary artery disease): Status: Acute (3) DKA (diabetic ketoacidosis): Status: Acute (4) Frailty: Status: Acute DS: Summary Hospital Course Hospital Course: Admission note HPI by ICU provider. An 89-year-old lady with underlying history of CAD diabetes mellitus, recent fracture status post ORIF admitted 03/11/2025 with hyperglycemia and diabetic ketoacidosis requiring insulin drip. Hospital course She was admitted to ICU for DKA and started on insulin drip which was titrated off as her gap closed and she tolerated PO diet. restarted her home dose of Lantus 20 units along with SSI. 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 To follow with PCP. continue her current home Insulin doses. The patient was noted to have symptoms of acute on chronic diastolic heart failure exacerbation requiring O2 supplement as CXR showing fluid overload. She was started on Lasix IV with fair response as she was weaned off O2 supplement with good tolerance as she participated with PT who recommended home PT. She was noted to have Frailty and evaluated by PT who recommended home with PT For Bacteruria. Culture negative, Abx dcd while inpatient. no need for antibiotics on discharge. Discharge plan Uncontrolled type 2 diabetes ; take insulin Lantus 20 units along with sliding scale insulin Omeprazole for stomach Nystatin powder Stay well hydrated physical therapy at home Time Attestation Discharge Coordination Time (in mins): 38 Quality: Safe Use of Opioids Does Pt have an Active Cancer Diagnosis on the Problem List?: No Quality: Stroke Does the patient have a stroke diagnosis?: No Physical Exam Vital Signs: Vital Signs: Last Vital Signs Temp 97.6 F 03/16/25 07:51 Pulse 61 03/16/25 07:51 Resp 18 03/16/25 07:51 BP 128/64 03/16/25 07:51 Pulse Ox 96 03/16/25 07:51 O2 Del Method Nasal Cannula 03/16/25 07:51 O2 Flow Rate 1.0 03/16/25 07:51 BMI result Body Mass Index 31.6 Const: Other: Constitutional : interactive, not in distress Cardiovascular : no JVP, no lower extremity edema Respiratory : bilateral chest movement, not in resp distress Gastrointestinal: soft, lax, Non tender Skin : Warm, Dry Neurological : Alert & oriented , No focal deficit DS: Data Data Completed and Pending Completed studies during hospitalization [Text1]: Procedures Reposition Left Upper Femur with Internal Fixation Device, Open Approach (10/31/24) Transfusion of Nonautologous Red Blood Cells into Peripheral Vein, Percutaneous Approach (10/31/24) Labs on day of discharge: Laboratory Results - last 24 hr 03/15/25 03/15/25 03/16/25 16:00 19:30 07:04 POC Glucose 266 H 195 H 47 L* 03/16/25 03/16/25 07:48 11:15 POC Glucose 95 276 H Preliminary micro results at discharge 03/11/25 14:55 Blood Culture - Preliminary Blood - Venous No growth after 48 hours. 03/11/25 14:55 Blood Culture - Preliminary Blood - Venous No growth after 48 hours. Imaging Chest x-ray: Radiologist's impression: ITS Impressions Chest X-Ray 03/15/25 08:38 IMPRESSION: 1. Mild cardiomegaly with developed interstitial pulmonary edema. 2. Cannot exclude a tiny left effusion. No pneumothorax. Electronically signed by: Alvino Pack MD 03/15/2025 08:59 AM EDT RP Discharge Plan Discharge Anticipated Discharge Date/Time: 03/16/25 11:24 Patient Disposition: Home Health Service Discharge Diagnosis: Diabetic ketoacidosis ; Referrals: [facility] [Outside] - 1 Week Janes Foster MD [Primary Care Provider] - 1 Week Discharge Medications: New omeprazole 20 mg Capsule,Delayed Release(Dr/Ec) 20 mg PO DAILY@0630 Qty: 90 0RF nystatin [Nyamyc] 100,000 unit/gram Powder 1 appl topical TID Qty: 30 0RF Protocol: Apply to: Apply to: affected areas Continued calcium carbonate 500 mg calcium (1,250 mg) Tablet 500 mg PO BID insulin glargine [Lantus Solostar U-100 Insulin] 100 unit/mL (3 mL) insulin pen 20 unit subcut BEDTIME Qty: 15 0RF acetaminophen [Tylenol] 325 mg Tablet 650 mg PO Q4-6H PRN (Reason: Pain/Fever) levothyroxine 112 mcg tablet 112 mcg PO DAILY@0600 cyanocobalamin (vitamin B-12) 100 mcg Tablet 100 mcg PO DAILY pravastatin 40 mg tablet 80 mg PO BEDTIME insulin lispro 100 unit/mL Solution See Protocol SUBCUT TIDWM Protocol: Insulin Correction Scale Less than or equal to 110 ---- Give (units): 0 111 to 150 Give (units): 0 151 to 200 Give (units): 2 201 to 250 Give (units): 4 251 to 300 Give (units): 6 301 to 350 Give (units): 8 Greater than 350 Give (units): 10 Call MD if Blood Glucose > : 350 zinc sulfate 220 mg Capsule 220 mg PO DAILY hydralazine 10 mg tablet 10 mg PO BEDTIME PRN (Reason: BP > 150/80) Qty: 1 0RF Discharge Orders: Discharge Order (Routine); Ordered 03/16/25 Ordered By: Minna Bocanegra Diet: Diabetic diet Activity on Discharge: As tolerated Stand Alone Forms: Patient Portal Discharge page Print Language: Indonesian Care Plan Goals: Uncontrolled type 2 diabetes ; take insulin Lantus 20 units along with sliding scale insulin Omeprazole for stomach Nystatin powder Stay well hydrated physical therapy at home Health Concerns: Uncontrolled diabetes Plan of Treatment: Insulin Assessment: as above
--- NOTE | 2025-03-16 12:01 | W.MHC.F2F ---
Service Date Service Date: 03/16/25 Encounter Date of encounter: 03/16/25 Reasons for Services Signs and symptoms assessed: Uncontrolled Diabetes Frailty Reason for assisted: monitoring of unstable blood sugar, medication management and teach disease management Reason for physical therapy: home safety and mobility and therapeutic exercises Homebound: Leaving the home is medically contraindicated at this time without the asist of a device and/or another person due th the listed conditions above and below. Reason homebound: unable to drive Certification: Based on the above findings, I certify that this patient is confined to the home and needs intermittent assisted care, physical therapy and/or speech therapy, or continues to need occupational therapy. The patient is under my care, and I have initiated the establishment of the plan of care. The patient will be followed by a physician who will periodically review the plan of care. Time Spent With Patient Time: Total time managing care of this patient today ____ minutes.
[2025-03-16 12:05] LABS: Estimated Average Glucose 220 mg/dL; Hemoglobin A1C 222.9864 umol/L; Hemoglobin A1c % 9.3 % (<6.0); Total Hemoglobin (HGBA1C) 2846.7112 umol/L
[2025-03-16] MEDS: Insulin Lispro 100 UNIT/ML 3 ML VIAL SUBCUT (12:14)
== END 2025-03-16 15:11 | disposition home health service (06) | DRG 637 ==
LOC: HO.ED 14:11 → HO.EDOVER 15:00 → HO.ICU 15:04 → HO.S3 03-14 10:00
PROVIDERS: Nurse Practitioner Family; Registered Nurse Community Health; Admitting Provider Internal Medicine Pulmonary Disease; Emergency Provider Emergency Medicine; PCP Internal Medicine; Visit Provider Student in an Organized Health Care Education/Training Program
DX: E11.10 Type 2 diabetes mellitus with ketoacidosis without coma (principal); I50.33 Acute on chronic diastolic (congestive) heart failure; E87.1 Hypo-osmolality and hyponatremia; E11.649 Type 2 diabetes mellitus with hypoglycemia without coma; I25.10 Atherosclerotic heart disease of native coronary artery without angina pectoris; R53.81 Other malaise; Z79.4 Long term (current) use of insulin; Z79.890 Hormone replacement therapy; Z79.899 Other long term (current) drug therapy
CPT/HCPCS: 36415; 36600; 71045; 80048; 80053; 81001; 81003; 82010; 82040; 82803; 82947; 83036; 83605; 83735; 84100; 85025; 87040; 97116; 97161; 97530; 99284; J0696; J1644; J1938; J2405; J3475; J3480; J7120; P9047

== ENCOUNTER → 2025-03-11 13:26 | Outpatient (BNV) | payer MEDICARE, OTHER, SELFPAY | PROVIDERS: Admitting Provider Internal Medicine Pulmonary Disease; Emergency Provider Emergency Medicine; PCP Internal Medicine; Visit Provider Radiology Diagnostic Radiology | DX: R91.8 Other nonspecific abnormal finding of lung field (principal) | CPT/HCPCS: 71045 ==

== ENCOUNTER 2025-03-11 14:19 | Outpatient (BNV) | payer MEDICARE, OTHER, SELFPAY | END 2025-03-15 08:38 | PROVIDERS: Admitting Provider Internal Medicine Pulmonary Disease; Emergency Provider Emergency Medicine; PCP Internal Medicine; Visit Provider Radiology Diagnostic Radiology | DX: R09.02 Hypoxemia (principal); J81.1 Chronic pulmonary edema | CPT/HCPCS: 71045 ==

== ENCOUNTER → 2025-03-11 14:19 | Outpatient (BNV) | payer MEDICARE, OTHER, SELFPAY | PROVIDERS: Admitting Provider Internal Medicine Pulmonary Disease; Emergency Provider Emergency Medicine; PCP Internal Medicine; Visit Provider Student in an Organized Health Care Education/Training Program | DX: N17.9 Acute kidney failure, unspecified (principal); I25.10 Atherosclerotic heart disease of native coronary artery without angina pectoris; E11.10 Type 2 diabetes mellitus with ketoacidosis without coma; R54 Age-related physical debility | CPT/HCPCS: 99232; 99239; G0180 ==

== ENCOUNTER → 2025-03-11 14:19 | Outpatient (BNV) | payer MEDICARE, OTHER, SELFPAY | PROVIDERS: Admitting Provider Internal Medicine Pulmonary Disease; Emergency Provider Emergency Medicine; PCP Internal Medicine; Visit Provider Internal Medicine Pulmonary Disease | DX: E11.10 Type 2 diabetes mellitus with ketoacidosis without coma (principal); I25.10 Atherosclerotic heart disease of native coronary artery without angina pectoris | CPT/HCPCS: 99223; 99232 ==

== ENCOUNTER 2025-03-19 21:56 | Emergency (ER) | payer MEDICARE, OTHER, SELFPAY ==
--- NOTE | ~2025-03-19 | XR_ITS ---
CLINICAL HISTORY: elevated BNP, sob 1 view chest x-ray Comparison: CR/SR - XR CHEST 1V - 03/15/25 08:25 EDT Findings: Mildly prominent pulmonary vasculature. Moderate cardiomegaly. Obscuration of the left hemidiaphragm with blunting of the left costophrenic angle. No acute fracture. IMPRESSION: Findings suggesting mild CHF/pulmonary edema. Suspect small left pleural effusion. This document has been electronically signed by: Eleazar Shah MD on 03/20/2025 02:23:09
[2025-03-19 22:07] VITALS: BP 144/72; PULSE 74; O2SAT 100
--- NOTE | 2025-03-19 22:16 | ED.GENADULT ---
HPI - General Adult General Chief complaint: General Medical Stated complaint: HIGH BS,INCR THRST,ICU LAST WEEK FOR SAME PER EMS Time Seen by Provider: 03/19/25 22:05 Source: patient and EMS Mode of arrival: EMS Limitations: no limitations History of Present Illness ED Provider: Dr. Dayanara Ledezma HPI narrative: Patient comes to the emergency room via ambulance complaining of high blood sugar. Patient was recently discharged from the hospital, 3 days ago for DKA. Patient needed an ICU stay, insulin drip. Today, patient states that she has no abdominal pain, no nausea or vomiting. Patient states that her children help her with her insulin but it is very complicated for her to administer her own medication. Patient states that at home her glucose was over 500 and came to the hospital. Otherwise no symptoms Related Data Home Medications ?Medication ?Instructions ?Recorded ?Confirmed acetaminophen 325 mg tablet 650 mg PO Q4-6H PRN Pain/Fever 10/31/24 03/20/25 (Tylenol) levothyroxine 112 mcg tablet 112 mcg PO DAILY@0600 10/31/24 03/20/25 cyanocobalamin (vitamin B-12) 100 100 mcg PO DAILY 02/08/25 03/20/25 mcg tablet insulin lispro 100 unit/mL See Protocol subcut TIDWM 02/08/25 03/20/25 subcutaneous solution pravastatin 40 mg tablet 80 mg PO BEDTIME 02/08/25 03/20/25 zinc sulfate 220 mg capsule 220 mg PO DAILY 02/08/25 03/11/25 calcium carbonate 500 mg PO BID 03/11/25 03/20/25 Previous Rx's ?Medication ?Instructions ?Recorded hydralazine 10 mg tablet 10 mg PO BEDTIME PRN BP > 150/80 02/10/25 #1 tab insulin glargine 100 unit/mL (3 20 unit (0.2 mL) subcut BEDTIME 03/16/25 mL) subcutaneous pen (Lantus #15 mL Solostar U-100 Insulin) nystatin 100,000 unit/gram topical 1 appl topical TID #30 grams 03/16/25 powder (Nyamyc) omeprazole 20 mg capsule,delayed 20 mg PO DAILY@0630 #90 caps 03/16/25 release furosemide 20 mg tablet (Lasix) 20 mg PO DAILY #7 tabs 03/20/25 Allergies Allergy/AdvReac Type Severity Reaction Status Date / Time adhesive tape [Adhesive Tape] Allergy Unknown SKIN Verified 03/19/25 22:27 REDNESS Review of Systems Review of Systems: Constitutional : No Weight loss, No Fever, No Chills, No Night Sweats, No Fatigue, No Malaise ENT/Mouth : No Hearing loss, No Ear Pain, No Nasal Congestion, No Sinus Pain, No Hoarseness, No sore throat, No Rhinorrhea, No Swallowing Difficulty Eyes: No Eye Pain, No Swelling, No Redness, No Foreign Body, No Discharge, No Vision Changes Cardiovascular : No Chest Pain, No SOB, No Dyspnea on Exertion, No Orthopnea, No Edema, No Palpitations Respiratory : No Cough, No Sputum, No Wheezing, No Smoke Exposure, No Dyspnea Gastrointestinal : No Nausea, No Vomiting, No Diarrhea, No Constipation, No abdominal Pain, No Hematochezia, No Melena Genitourinary : no irregular bleeding, No Dysuria, No Urinary Frequency, No Hematuria, No Urinary Incontinence, No Urgency, No Flank Pain, No Urinary Flow Changes, No Hesitancy Musculoskeletal : No joint pain, No Myalgias, No Joint Swelling Skin : No Skin Lesions, No rash Neuro : No Weakness, No Numbness, No Paresthesias, No Loss of Consciousness, No Dizziness, No Headache Psych : No Anxiety/Panic, No Depression, No SI/HI/AH/VH, No Social Issues, Heme/Lymph: No Bruising, No Bleeding,No Lymphadenopathy Endocrine : No Polyuria, No Polydipsia, complaining of high blood sugar [facility] Past Medical History Medical History CAD (coronary artery disease) Patellofemoral arthritis of right knee Diabetes mellitus Left bundle branch block Surgical History Hx of mastectomy Hx of mastectomy Social History Social History Household Members: None Household Members Other:: Home alone, went to [facility] a few weeks ago Housing: House Do you presently have visiting nurse or other home services: Yes (nurse went to house for intake and sent patient to ER prior to intake.) Patient Tobacco Use Status: Never used Tobacco Smoked in Last 30 Days: No Use of substances other than those prescribed or required for medical reasons: No Advance Directives: Yes Advance Directives on File: Yes Advance Directives Date on File: 11/01/24 Do you have a plan to hurt others: No Plan service: No Current occupational status: retired 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 Oriented X3. No acute distress. Eyes: Pupils equal, round and reactive to light. ENT: Pharynx normal. Neck: Normal inspection. Neck supple. No lymph nodes noted. No crepitus CVS: Normal heart rate and rhythm. Pulses normal. Normal S1 and S2 Respiratory: No respiratory distress. Breath sounds normal. No Wheezing. No rales Abdomen: Soft and nontender. No rigidity. No distention. Skin: Skin warm and dry. Normal skin color. Normal skin turgor. Extremities: No lower extremity edema. No Lacerations. No Rash Neuro: Oriented X 3. No motor deficit. No sensory deficit. Moving all extremities. No slurred speech. CN 2 through 12 grossly intact Psych: calm, cooperative, normal affect Course Course Course Narrative: Patient receiving IV fluids, IV insulin. Patient's initial glucose here in the emergency room is 451. All of patient's labs pending. Medications Administered Discontinued Medications Generic Name Dose Route Start Last Admin Trade Name Julianne PRN Reason Stop Dose Admin Lactated Ringer's 1,000 mls @ 999 mls/hr 03/19/25 22:30 03/20/25 00:09 Lr IV 03/19/25 23:30 Infused .Q1H1M ANTONINA Infusion Insulin Human Regular 10 unit 03/19/25 22:17 03/19/25 22:39 Insulin Regular, Human 100 Unit/Ml 10 Ml Vial IVPUSH 03/19/25 22:18 10 unit ONCE ONE Administration Medical Decision Making Medical Decision Making MDM Narrative: My interpretation of labs: No significant difference in patient's hematology, at baseline, chemistry shows a sodium of 130 with a glucose of 494, cardiac kit sodium within normal limits. Patient's anion gap is open 22, BUN 21. Normal LFTs. Patient received IV fluids, insulin. Patient states that she feels well. No chest pain or shortness of breath. After IV fluids, BNP and BNP was ordered. Fortunately, the patient's electrolytes are back to normal, anion gap closed. Patient's BNP is elevated 1800 Patient had an echocardiogram in January of 2025, patient has an ejection fraction of 60-65% with elevated filling pressures x-ray pending Patient does not have lower extremity edema Patient's chest x-ray shows mild pulmonary edema, small left pleural effusion With ambulation, patient's oxygen saturation remained in the 90s. No oxygen desaturation, patient denied any chest pain or shortness of breath. 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 At this time of night, patient has no difficulty breathing. Patient will be given p.o. Lasix in the morning. Patient will follow-up with her primary care physician and furnace mechanic helper. Patient states that she will need additional help at home with her insulin. Patient has been here twice in 2 weeks with elevated glucose. Patient will likely need a visiting nurse. Case management consult pending Patient's insulin at bedtime will be increased to 25 units. Continue current sliding scale Patient needs close follow-up with her primary care physician. Case Management consult pending Physician observation started at 02:15 Differential Diagnosis Differential Diagnoses: The differential diagnosis associated with the presentation includes (Hyperglycemia, low-dose insulin, medication noncompliance) Admission/Observation Consideration of admission/observation: Escalation of care including admission/observation considered (Patient is under physician observation waiting to be seen by case management) Lab Data MDM Lab Attestation statement: I reviewed the patient's lab results. 03/19/25 22:37 03/20/25 01:01 Labs: Lab Results 03/19/25 03/19/25 03/19/25 Range/Units 22:13 22:37 22:38 WBC 6.7 (4.8-10.8) X10*3/uL RBC 4.07 L (4.20-5.50) X10*6/uL Hgb 10.5 L (12.0-16.0) g/dl Hct 32.3 L (37.0-47.0) % MCV 79.4 L (80.0-98.0) fL MCH 25.8 L (27.0-33.0) pg MCHC 32.5 (31.0-35.0) g/dl RDW 17.2 H (11.0-16.0) % Plt Count 301 D (160-400) X10*3/uL MPV 11.0 (9.4-12.3) fL Immature Gran % (Auto) 0.3 (0.0-0.4) % Neut % (Auto) 65.9 (45-73) % Lymph % (Auto) 24.1 (20-40) % [place] % (Auto) 7.9 (2-11) % Eos % (Auto) 1.2 (0-4) % Baso % (Auto) 0.6 (0-2) % Lymph # (Auto) 1.6 (1.2-4.9) X10*3/uL [place] # (Auto) 0.5 (0.1-1.2) X10*3/uL Eos # (Auto) 0.1 (0.0-0.4) X10*3/uL Baso # (Auto) 0.0 (0.0-0.2) X10*3/uL Abs Immat Gran (auto) 0.02 (0.00-0.03) X10*3/uL Absolute Neuts (auto) 4.4 (2.0-8.3) x10*3/uL Absolute Nucleated RBC 0.000 (0.0-0.012) X10*3/uL Nucleated RBC % (auto) 0.0 (0.0-0.2) /100WBC VBG pH (7.32-7.43) VBG pCO2 mmHg VBG pO2 mmHg VBG HCO3 (22-26) mmol/L VBG O2 Saturation % VBG Base Excess mmol/L Sodium 130 L (135-145) mmol/L Potassium 4.5 D (3.3-5.1) mmol/L Chloride 95 L (96-108) mmol/L Carbon Dioxide 18 L (22-29) mmol/L Anion Gap 22 H (12-20) BUN 21 H (9-16) mg/dL Creatinine 0.94 (0.5-1.4) mg/dL Estim Creat Clear Calc 43.0 Estimated GFR 56 POC Glucose 451 H* (60-115) mg/dL Random Glucose 494 H* (60-115) mg/dL Calcium 8.8 (8.4-10.2) mg/dL Total Bilirubin 0.7 (0.0-1.0) mg/dL Direct Bilirubin 0.3 (0.0-0.5) mg/dL AST 23 (5-31) U/L ALT 10 (0-31) U/L Alkaline Phosphatase 87 (39-117) U/L B-Natriuretic Peptide (<100) pg/mL Total Protein 6.7 (6.5-8.0) g/dL Albumin 3.8 (3.5-5.0) g/dL Beta-Hydroxybutyrate 3.90 H (0.02-0.27) mmol/L Urine Color Yellow Urine Appearance Clear Urine pH 5.5 (5.0-9.0) Ur Specific [place] 1.025 (1.005-1.025) Urine Protein Trace (Neg-Trace) mg/dL Urine Glucose (UA) >=1000 H (Negative) mg/dL Urine Ketones 80 (Negative) mg/dL Urine Blood Negative (Negative) Urine Nitrite Negative (Negative) Ur Leukocyte Esterase Negative (Negative) Urine RBC 0-2 (0-2) /HPF Urine WBC 0-5 (0-5) /HPF Ur Squamous Epith Cells 0-2 (0-2) /HPF Urine Bacteria None Seen (None Seen) Hyaline Casts 0-2 (0-2) /LPF 03/19/25 03/19/25 03/20/25 Range/Units 22:45 23:22 00:00 WBC (4.8-10.8) X10*3/uL RBC (4.20-5.50) X10*6/uL Hgb (12.0-16.0) g/dl Hct (37.0-47.0) % MCV (80.0-98.0) fL MCH (27.0-33.0) pg MCHC (31.0-35.0) g/dl RDW (11.0-16.0) % Plt Count (160-400) X10*3/uL MPV (9.4-12.3) fL Immature Gran % (Auto) (0.0-0.4) % Neut % (Auto) (45-73) % Lymph % (Auto) (20-40) % [place] % (Auto) (2-11) % Eos % (Auto) (0-4) % Baso % (Auto) (0-2) % Lymph # (Auto) (1.2-4.9) X10*3/uL [place] # (Auto) (0.1-1.2) X10*3/uL Eos # (Auto) (0.0-0.4) X10*3/uL Baso # (Auto) (0.0-0.2) X10*3/uL Abs Immat Gran (auto) (0.00-0.03) X10*3/uL Absolute Neuts (auto) (2.0-8.3) x10*3/uL Absolute Nucleated RBC (0.0-0.012) X10*3/uL Nucleated RBC % (auto) (0.0-0.2) /100WBC VBG pH 7.50 H (7.32-7.43) VBG pCO2 22 mmHg VBG pO2 78 mmHg VBG HCO3 17 L (22-26) mmol/L VBG O2 Saturation 99.0 % VBG Base Excess -3.4 mmol/L Sodium (135-145) mmol/L Potassium (3.3-5.1) mmol/L Chloride (96-108) mmol/L Carbon Dioxide (22-29) mmol/L Anion Gap (12-20) BUN (9-16) mg/dL Creatinine (0.5-1.4) mg/dL Estim Creat Clear Calc Estimated GFR POC Glucose 337 H (60-115) mg/dL Random Glucose (60-115) mg/dL Calcium (8.4-10.2) mg/dL Total Bilirubin (0.0-1.0) mg/dL Direct Bilirubin (0.0-0.5) mg/dL AST (5-31) U/L ALT (0-31) U/L Alkaline Phosphatase (39-117) U/L B-Natriuretic Peptide 1827 H (<100) pg/mL Total Protein (6.5-8.0) g/dL Albumin (3.5-5.0) g/dL Beta-Hydroxybutyrate (0.02-0.27) mmol/L Urine Color Urine Appearance Urine pH (5.0-9.0) Ur Specific [place] (1.005-1.025) Urine Protein (Neg-Trace) mg/dL Urine Glucose (UA) (Negative) mg/dL Urine Ketones (Negative) mg/dL Urine Blood (Negative) Urine Nitrite (Negative) Ur Leukocyte Esterase (Negative) Urine RBC (0-2) /HPF Urine WBC (0-5) /HPF Ur Squamous Epith Cells (0-2) /HPF Urine Bacteria (None Seen) Hyaline Casts (0-2) /LPF 03/20/25 Range/Units 01:01 WBC (4.8-10.8) X10*3/uL RBC (4.20-5.50) X10*6/uL Hgb (12.0-16.0) g/dl Hct (37.0-47.0) % MCV (80.0-98.0) fL MCH (27.0-33.0) pg MCHC (31.0-35.0) g/dl RDW (11.0-16.0) % Plt Count (160-400) X10*3/uL MPV (9.4-12.3) fL Immature Gran % (Auto) (0.0-0.4) % Neut % (Auto) (45-73) % Lymph % (Auto) (20-40) % [place] % (Auto) (2-11) % Eos % (Auto) (0-4) % Baso % (Auto) (0-2) % Lymph # (Auto) (1.2-4.9) X10*3/uL [place] # (Auto) (0.1-1.2) X10*3/uL Eos # (Auto) (0.0-0.4) X10*3/uL Baso # (Auto) (0.0-0.2) X10*3/uL Abs Immat Gran (auto) (0.00-0.03) X10*3/uL Absolute Neuts (auto) (2.0-8.3) x10*3/uL Absolute Nucleated RBC (0.0-0.012) X10*3/uL Nucleated RBC % (auto) (0.0-0.2) /100WBC VBG pH (7.32-7.43) VBG pCO2 mmHg VBG pO2 mmHg VBG HCO3 (22-26) mmol/L VBG O2 Saturation % VBG Base Excess mmol/L Sodium 135 (135-145) mmol/L Potassium 4.2 (3.3-5.1) mmol/L Chloride 98 (96-108) mmol/L Carbon Dioxide 24 (22-29) mmol/L Anion Gap 17 (12-20) BUN 18 H (9-16) mg/dL Creatinine 1.00 (0.5-1.4) mg/dL Estim Creat Clear Calc 40.4 Estimated GFR 52 POC Glucose (60-115) mg/dL Random Glucose 229 H (60-115) mg/dL Calcium 8.8 (8.4-10.2) mg/dL Total Bilirubin (0.0-1.0) mg/dL Direct Bilirubin (0.0-0.5) mg/dL AST (5-31) U/L ALT (0-31) U/L Alkaline Phosphatase (39-117) U/L B-Natriuretic Peptide (<100) pg/mL Total Protein (6.5-8.0) g/dL Albumin (3.5-5.0) g/dL Beta-Hydroxybutyrate (0.02-0.27) mmol/L Urine Color Urine Appearance Urine pH (5.0-9.0) Ur Specific [place] (1.005-1.025) Urine Protein (Neg-Trace) mg/dL Urine Glucose (UA) (Negative) mg/dL Urine Ketones (Negative) mg/dL Urine Blood (Negative) Urine Nitrite (Negative) Ur Leukocyte Esterase (Negative) Urine RBC (0-2) /HPF Urine WBC (0-5) /HPF Ur Squamous Epith Cells (0-2) /HPF Urine Bacteria (None Seen) Hyaline Casts (0-2) /LPF Critical Care Time Critical Care Time Critical Care Time: Yes Total Critical Care Time: 60 Attestation: I have personally provided critical care time. Time includes review of lab data, radiology results, discussion with consultants, and monitoring for potential decompensation. Intervention performed as documented. Discharge Plan Discharge Clinical Impression: Acute hyperglycemia, CHF (congestive heart failure) Instructions: Heart Failure (ED), Diabetic Hyperglycemia (ED) Additional Instructions: Increase your nighttime glargine insulin to 25 units. Please follow-up with your primary care physician tomorrow. If you have any worsening or new symptoms, please return to the emergency room or call 911 Prescriptions: New furosemide [Lasix] 20 mg tablet 20 mg PO DAILY Qty: 7 0RF No Action calcium carbonate 500 mg calcium (1,250 mg) Tablet 500 mg PO BID omeprazole 20 mg Capsule,Delayed Release(Dr/Ec) 20 mg PO DAILY@0630 Qty: 90 0RF nystatin [Nyamyc] 100,000 unit/gram Powder 1 appl topical TID Qty: 30 0RF Protocol: Apply to: Apply to: affected areas insulin glargine [Lantus Solostar U-100 Insulin] 100 unit/mL (3 mL) insulin pen 20 unit subcut BEDTIME Qty: 15 0RF acetaminophen [Tylenol] 325 mg Tablet 650 mg PO Q4-6H PRN (Reason: Pain/Fever) levothyroxine 112 mcg tablet 112 mcg PO DAILY@0600 cyanocobalamin (vitamin B-12) 100 mcg Tablet 100 mcg PO DAILY pravastatin 40 mg tablet 80 mg PO BEDTIME insulin lispro 100 unit/mL Solution See Protocol SUBCUT TIDWM Protocol: Insulin Correction Scale Less than or equal to 110 ---- Give (units): 0 111 to 150 Give (units): 0 151 to 200 Give (units): 2 201 to 250 Give (units): 4 251 to 300 Give (units): 6 301 to 350 Give (units): 8 Greater than 350 Give (units): 10 Call if Blood Glucose > : 350 zinc sulfate 220 mg Capsule 220 mg PO DAILY hydralazine 10 mg tablet 10 mg PO BEDTIME PRN (Reason: BP > 150/80) Qty: 1 0RF Referrals: Danilo Avila MD [Physician] - 03/22/25 Print Language: Romansh
[2025-03-19 22:17] LABS: Glucose, Whole Blood 451 mg/dL (60-115)
[2025-03-19 22:23] VITALS: BMI 28.1
[2025-03-19] MEDS: Insulin Regular, Human 100 UNIT/ML 10 ML VIAL 10 UNIT IVPUSH (22:39)
[2025-03-19] MEDS: Lactated Ringers 1,000 ML 999 ML IV (22:42)
[2025-03-19 22:43] VITALS: BP 149/63; PULSE 68; RESP 16; TEMP 36.6; O2SAT 94
[2025-03-19 22:44] LABS: MANUAL DIFF FLAG NO
[2025-03-19 22:46] LABS: Appearance Urine Clear; Color Urine Yellow; Glucose Urine UA >=1000 mg/dL (Negative); Leukocyte Esterase Urine Negative (Negative); Nitrite Urine Negative (Negative); PH 5.5 (5.0-9.0); Specific Gravity - Urine 1.025 (1.005-1.025); UMIC TRIGGER UACC YES; Urine Blood Negative (Negative); Urine Ketones 80 mg/dL (Negative); Urine Protein Trace mg/dL (Neg-Trace)
[2025-03-19 22:47] LABS: Venous Blood Gas Refer to POC result
[2025-03-19 22:49] LABS: VBG Base Excess -3.4 mmol/L; VBG HCO3 17 mmol/L (22-26); VBG pCO2 22 mmHg; VBG pO2 78 mmHg
[2025-03-19 22:49] LABS: Bacteria Urine None Seen (None Seen); Hyaline Casts Urine 0-2 /LPF (0-2); RBC Urine 0-2 /HPF (0-2); Squamous Epithelial Cell Urine 0-2 /HPF (0-2); WBC Urine 0-5 /HPF (0-5)
[2025-03-19 22:52] LABS: Basophils Percent Auto 0.6 % (0-2); Eosinophils Absolute Auto 0.1 X10*3/uL (0.0-0.4); Eosinophils Percent Auto 1.2 % (0-4); Hematocrit 32.3 % (37.0-47.0); Hemoglobin 10.5 g/dl (12.0-16.0); Imm Gran Abs Auto 0.02 X10*3/uL (0.00-0.03); Imm Gran Pct Auto 0.3 % (0.0-0.4); Lymphocytes Absolute Auto 1.6 X10*3/uL (1.2-4.9); Lymphocytes Percent Auto 24.1 % (20-40); Mean Corpuscular HGB Conc 32.5 g/dl (31.0-35.0); Mean Corpuscular Hemoglobin 25.8 pg (27.0-33.0); Mean Corpuscular Volume 79.4 fL (80.0-98.0); Monocytes Absolute Auto 0.5 X10*3/uL (0.1-1.2); Monocytes Percent Auto 7.9 % (2-11); Neutrophils Absolute Auto 4.4 x10*3/uL (2.0-8.3); Neutrophils Percent Auto 65.9 % (45-73); Platelet Count 301 X10*3/uL (160-400); Red Blood Count 4.07 X10*6/uL (4.20-5.50); Red Cell Distribution Width 17.2 % (11.0-16.0); White Blood Count 6.7 X10*3/uL (4.8-10.8)
[2025-03-19 23:03] LABS: Alanine Aminotransferase 10 U/L (0-31); Albumin Level 3.8 g/dL (3.5-5.0); Alkaline Phosphatase 87 U/L (39-117); Anion Gap 22 (12-20); Aspartate Amino Transferase 23 U/L (5-31); Bilirubin Direct 0.3 mg/dL (0.0-0.5); Bilirubin Total 0.7 mg/dL (0.0-1.0); Blood Urea Nitrogen 21 mg/dL (9-16); Calcium 8.8 mg/dL (8.4-10.2); Carbon Dioxide 18 mmol/L (22-29); Chloride 95 mmol/L (96-108); Estimated Glomerular Filt Rate 56; Glucose Random 494 mg/dL (60-115); Potassium 4.5 mmol/L (3.3-5.1); Sodium 130 mmol/L (135-145); Total Protein 6.7 g/dL (6.5-8.0)
[2025-03-19 23:33] LABS: Glucose, Whole Blood 337 mg/dL (60-115)
[2025-03-20 00:26] LABS: B Type Natriuretic Peptide 1827 pg/mL (<100)
[2025-03-20 00:43] VITALS: BP 131/63; PULSE 70; RESP 16; O2SAT 95
[2025-03-20 01:33] LABS: Anion Gap 17 (12-20); Blood Urea Nitrogen 18 mg/dL (9-16); Calcium 8.8 mg/dL (8.4-10.2); Carbon Dioxide 24 mmol/L (22-29); Chloride 98 mmol/L (96-108); Creatinine Clr Calc Pharmacy 40.4; Estimated Glomerular Filt Rate 52; Glucose Random 229 mg/dL (60-115); Potassium 4.2 mmol/L (3.3-5.1); Sodium 135 mmol/L (135-145)
[2025-03-20 02:18] VITALS: O2SAT 94
[2025-03-20 03:17] VITALS: BP 138/58; PULSE 68; RESP 16; TEMP 36.4; O2SAT 95
[2025-03-20] MEDS: Calcium Oyster Shell Elemental 500 MG TABLET PO (03:17)
[2025-03-20] MEDS: Insulin Glargine,Hum.rec.anlog 100 UNIT/ML 10 ML VIAL 20 UNIT SUBCUT (03:17)
[2025-03-20] MEDS: Nystatin Powder 15 GM BOTTLE 1 APPL TOPICAL ×2 (03:18→09:41)
--- NOTE | 2025-03-20 05:30 | PC.NURSE ---
PT is 89 year biba from home where she lives with family. blood sugars were elevated and reporting increased thirst. was recently in ICU for DKA. on arrival patient blood sugar was 451 gap 22 beta 3.9 pH 7.50 BNP 1837. PT has 20 Left AC given 1L LR and 10 units regular. patient ambulates with walker and assistance to bathroom.
[2025-03-20 05:59] VITALS: BP 135/59; PULSE 68; RESP 16; TEMP 36.9; O2SAT 94
[2025-03-20] MEDS: Omeprazole 20 MG CAPSULE.DR PO (05:59)
[2025-03-20] MEDS: Levothyroxine Sodium 112 MCG TABLET PO (05:59)
[2025-03-20 08:29] LABS: Glucose, Whole Blood 229 mg/dL (60-115)
[2025-03-20 09:00] VITALS: BP 138/65; PULSE 74; RESP 17; O2SAT 92
[2025-03-20] MEDS: Cyanocobalamin (Vitamin B-12) 100 MCG TABLET PO (09:41)
[2025-03-20] MEDS: Furosemide 20 MG TABLET PO (09:41)
[2025-03-20] MEDS: Insulin Lispro 100 UNIT/ML 3 ML VIAL SUBCUT ×2 (09:41→13:20)
--- NOTE | 2025-03-20 11:01 | PHA.MEDREC ---
Addendum entered by Sary Dougherty RPh 03/20/25 11:23: reviewed by [facility]. Original Note: Pharmacy Consult ? Medication Reconciliation Pharmacy has reviewed the medication reconciliation Done by nursing. Spoke to patients Daughter Irina to confirm med list.Daughter states patient was just discharged and there have not been any changes. Utilized discharge packet from 03/16/25 to confirm med list.
--- NOTE | 2025-03-20 12:23 | MHC.CM.ED ---
Addendum entered by Denia Mejia 03/20/25 12:38: Received telephone call from patient's [id number], Irina. Irina can be reached via telephone at [phone]. Irina is concerned patient's blood sugar is going to continue to increase. When patient was d/c'd from [facility] on [address], insulin sliding scale was decreased. Irina feels it needs to be increased. T/W offered to have Sharlene MCINTOSH reach out her. Irina agreeable. Sharlene MCINTOSH aware Irina is lookingfor a call back. Original Note: Received case management consult overnight. Patient came to the ER due to high blood sugar . Patient was d/c'd home with referral to [facility]. [facility] was not able to start services yet because patient hasn't been home long enough. Physical therapy eval completed. Home with services is recommended. Met with patient in regards to discharge planning. Patient is extremely hard of hearing. Patient feels she can safely return home. Also aware [facility] will start [facility] services. Patient requested T/W spoke with Yashira about transporting patient home. Spoke with Sukhwinder via telephone at [phone]. He will be here around 1pm to transport patient home. He will also bring sweatpants and a sweatshirt at patient's request. Patient, Jordana MORGAN and Sharlene MCINTOSH aware. Caredeja also made aware. Continue to monitor for d/c needs.
--- NOTE | 2025-03-20 13:08 | PC.NURSE ---
SARS test will not be done as patient is being discharged home today
[2025-03-20 13:19] LABS: Glucose, Whole Blood 200 mg/dL (60-115)
[2025-03-20 14:08] VITALS: BP 130/60; PULSE 80; RESP 16; TEMP 36.8; O2SAT 95
== END 2025-03-20 14:10 | disposition home or self-care (01) ==
PROVIDERS: Emergency Provider Emergency Medicine; PCP Internal Medicine
DX: E11.65 Type 2 diabetes mellitus with hyperglycemia (principal); I50.9 Heart failure, unspecified; I25.10 Atherosclerotic heart disease of native coronary artery without angina pectoris; Z79.899 Other long term (current) drug therapy
CPT/HCPCS: 36415; 71045; 80048; 80076; 81001; 82010; 82803; 82947; 83880; 85025; 97161; 99284; J7120

== ENCOUNTER → 2025-03-20 01:44 | Outpatient (BNV) | payer MEDICARE, OTHER, SELFPAY | PROVIDERS: Emergency Provider Emergency Medicine; PCP Internal Medicine; Visit Provider Radiology Diagnostic Radiology | DX: R06.02 Shortness of breath (principal); R79.89 Other specified abnormal findings of blood chemistry | CPT/HCPCS: 71045 ==

== ENCOUNTER → 2025-03-21 15:48 | Outpatient (BNV) | payer MEDICARE, OTHER, SELFPAY | PROVIDERS: Emergency Provider Emergency Medicine Emergency Medical Services; PCP Internal Medicine; Visit Provider Radiology Diagnostic Radiology | DX: R06.02 Shortness of breath (principal) | CPT/HCPCS: 71045 ==

== ENCOUNTER → 2025-03-21 21:14 | Outpatient (BNV) | payer MEDICARE, OTHER, SELFPAY | PROVIDERS: Admitting Provider Student in an Organized Health Care Education/Training Program; Emergency Provider Internal Medicine; PCP Internal Medicine; Visit Provider Student in an Organized Health Care Education/Training Program | DX: I50.9 Heart failure, unspecified (principal) | CPT/HCPCS: 99223; 99232; 99239 ==

== ENCOUNTER → 2025-03-22 07:00 | Outpatient (BNV) | payer MEDICARE, OTHER, SELFPAY | PROVIDERS: Admitting Provider Student in an Organized Health Care Education/Training Program; Emergency Provider Internal Medicine; PCP Internal Medicine; Visit Provider Internal Medicine | DX: I42.2 Other hypertrophic cardiomyopathy (principal); I51.89 Other ill-defined heart diseases; I44.7 Left bundle-branch block, unspecified | CPT/HCPCS: 93306 ==

== ENCOUNTER → 2025-03-22 10:23 | Outpatient (BNV) | payer MEDICARE, OTHER, SELFPAY | PROVIDERS: Admitting Provider Student in an Organized Health Care Education/Training Program; Emergency Provider Internal Medicine; PCP Internal Medicine; Visit Provider Internal Medicine | DX: I42.9 Cardiomyopathy, unspecified (principal); I44.7 Left bundle-branch block, unspecified; I50.9 Heart failure, unspecified; U07.1 COVID-19 | CPT/HCPCS: 99223 ==

== ENCOUNTER 2025-03-25 11:31 | Emergency (ER) | payer MEDICARE, OTHER, SELFPAY ==
--- NOTE | ~2025-03-25 | CT_ITS ---
CLINICAL HISTORY: mental status changes CT Head Without Contrast: Comparison: 02/04/2025, 01/17/2025 Findings: Cortical sulci are symmetric Basal ganglia are unremarkable No shift in midline structures No intraparenchymal bleeding or abnormal extra axial blood fluid collections Normal pituitary size Clear paranasal sinuses Unremarkable orbital structures No depressed fractures. A 6.5 mm inner table calcification involving the left parietal bone is present consistent with possible remote calcified meningioma Impression: Chronic involutional volume loss. No acute findings. This document has been electronically signed by: Charles Aquino MD on 03/25/2025 15:35:49
--- NOTE | 2025-03-25 11:33 | ED.GENADULT ---
HPI - General Adult General Chief complaint: General Medical Stated complaint: high bs 491 Time Seen by Provider: 03/25/25 13:03 Source: patient, RN notes reviewed and old records reviewed Mode of arrival: ambulatory Limitations: no limitations History of Present Illness ED Provider: Naveen Mckeon PA-C HPI narrative: 89-year-old female with a past medical history of CAD, T2DM- insulin dependent, CHF presents to the emergency department today after being brought in by family due to elevated glucose and questionable slurred speech. Daughter called to verify history, she states patient began slurring her speech around 11:00 a.m. this morning and they checked her glucose level which was found to be around 356. She took her morning dose of Humalog 10 units. She then a breakfast. After several hours the glucose was noted to be continuously elevating up to 500. She has had episodes of slurred speech with elevated gluose in the past. Patient does not recall this. On chart review patient [place] [facility] on [place]16 due to DKA, and then hospitalized again and discharged on 03/23 due to CHF. Insulin was decreased to 15 units and continued on insulin sliding scale patient states she has been compliant with this change and using her insulin. Patient states that she is feeling fine and has no physical complaints. She denies chest pain, shortness of breath, abdominal pain, nausea, vomiting, headache, visual changes, diarrhea. MD complaint: Elevated glucose Onset (ago): hour(s) (3) Associated symptoms: denies other symptoms Treatments prior to arrival: none Related Data Home Medications ?Medication ?Instructions ?Recorded ?Confirmed acetaminophen 325 mg tablet 650 mg PO Q4-6H PRN Pain/Fever 10/31/24 04/04/25 (Tylenol) levothyroxine 112 mcg tablet 112 mcg PO DAILY@0600 10/31/24 04/04/25 cyanocobalamin (vitamin B-12) 100 100 mcg PO DAILY 02/08/25 04/04/25 mcg tablet pravastatin 40 mg tablet 80 mg PO BEDTIME 02/08/25 04/04/25 zinc sulfate 220 mg capsule 220 mg PO DAILY 02/08/25 04/04/25 calcium carbonate 500 mg PO BID 03/11/25 04/04/25 insulin aspart U-100 100 unit/mL See Protocol subcut TIDWM 03/26/25 04/04/25 (3 mL) subcutaneous pen (Novolog FlexPen U-100 Insulin aspart) nystatin 100,000 unit/gram topical 1 appl topical TID PRN Rash 03/30/25 04/04/25 powder ([facility]) blood-glucose sensor (FreeStyle 04/04/25 04/04/25 Anna 3 Sensor device) blood-glucose,broach trouble shooter,cont 04/04/25 04/04/25 (FreeStyle Anna 3 [place]) insulin glargine 100 unit/mL (3 15 unit subcut BEDTIME 04/04/25 04/04/25 mL) subcutaneous pen (Lantus Solostar U-100 Insulin) Previous Rx's ?Medication ?Instructions ?Recorded hydralazine 10 mg tablet 10 mg PO BEDTIME PRN BP > 150/80 02/10/25 #1 tab omeprazole 20 mg capsule,delayed 20 mg PO DAILY@0630 #90 caps 03/16/25 release furosemide 20 mg tablet (Lasix) 20 mg PO DAILY 7 days #7 tabs 03/20/25 acetone (urine) test (Ketone Urine #100 ea 04/04/25 Test strips) dextrose 15 gram/32 mL oral gel 15 g (32 mL) PO Q15M PRN 04/04/25 packet (TRUEplus Glucose) hypoglycemia (glucose under 70) #128 mL Allergies Allergy/AdvReac Type Severity Reaction Status Date / Time adhesive tape [Adhesive Tape] Allergy Unknown SKIN Verified 04/04/25 14:06 REDNESS Review of Systems Constitutional: Constitutional: Denies chills, Denies fever(s) and Denies headache(s) Eyes: Eyes: Denies change in vision and Denies other (No redness.) ENT: Denies headache(s), Denies nasal congestion, Denies nasal discharge and Denies sore throat Cardiovascular: Cardiovascular: Denies chest pain, Denies palpitations, Denies dyspnea, Denies dyspnea on exertion and Denies orthopnea Respiratory: Respiratory: Denies cough, Denies dyspnea and Denies dyspnea on exertion Gastrointestinal: Gastrointestinal: Denies abdominal pain, Denies melena, Denies hematochezia, Denies diarrhea, Denies nausea and Denies vomiting Genitourinary: Genitourinary: Denies dysuria and Denies urinary urgency Neurologic: Denies headache(s) and Denies focal weakness Psychiatric: Psychiatric: Denies depression Endocrine: Endocrine: Denies palpitations FOR[facility]LY [facility], [facility] Past Medical History Attestation statement: The following information was validated with the patient. Source: old records reviewed and obtained from family (Daughter validated information over phone call) Medical History (Updated 04/01/25 @ 00:02 by Priyanka Reyna) Left bundle branch block CAD (coronary artery disease) Patellofemoral arthritis of right knee Diabetes mellitus Surgical History Hx of mastectomy Hx of mastectomy Social History Social History Household Members: None Household Members Other:: Home alone, went to 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 Patient is an 89 year old assigned female at presenting to the emergency department with elevated blood sugar. Patient is beginning to slur her words secondary to elevated blood sugar. Patient was recently admitted for a CHF exacerbation Detailed physical exam and review of systems are deferred to the it associate. EKG, labs, imaging, and swabs ordered. Patient placed back in the waiting room pending room availability and results. 03/25/25; 2:45 p.m. patient's glucose is improved to 330 after IV insulin and gentle IV fluids. Patient is resting comfortably at this time. We will add additional insulin for improvement of glucose. At this time, the patient has had multiple hospital admissions and emergency department visits. The patient has support at home with family as well as VNA services. However the patient is still struggling with obtaining solid glucose control. We will engage the case management to work with the patient and family for possible placement or any other additional services. Discussed with Dr. Negron who agrees with plan. 03/25/25; 3:58pm- CT head brain resulted with no acute findings. Awaiting consult with case management. Glucose improved at 246. Coverage by sliding scale. 03/25/25; 6:00 p.m. patient resting comfortably at this time. 03/25/25; 8:40 p.m. patient signed out in stable condition to Chelsea Hammer PA-C with PT and case management pending. Reevaluation(s) Reevaluation #1: Time: 08:13 Date: 03/26/25 Provider: Kimberlee Joya, Patient in physician observation for case management needs. No acute events reported overnight.? No current issues or complaints. VS stable. Patient is pending PT/CM eval. Will continue to monitor. Reevaluation #2: Time: 12:35 Date: 03/27/25 Provider: DAYNA Sinclair Patient in physician observation for case management needs. No acute events reported overnight.? No current issues or complaints. VS stable. Glucose remains elevated 200-300. A1c 9% c/w poorly controlled DM. She has been seen by PT who is recommending home with services. she has PCP appointment tomorrow. will plan to add lispo 5 units AC in addition to her sliding scale insulin. STOP HS lispro with history of morning hypoglycemia episode. will continue lantus 15 units daily will plan for discharge home tomorrow Reevaluation #3: Time: 11:09 Date: 03/28/25 Provider: DAYNA Sinclair Physician observation ended at 11:09. Patient has been cleared for discharge to go home with family and serviced. she has PCP appointment today. plan to continue lispro 5 units AC in addition to lispro SS AC and lantus 15 units at night. family is going to try to get endo consult at PCP appointment today. patient seen and examined. she is AAO X3 and appropriate. lungs are clear, RRR, no distress. she does not require medical admission at this time and can be discharged home with close outpatient follow up. Medications Administered Discontinued Medications Generic Name Dose Route Start Last Admin Trade Name Julianne PRN Reason Stop Dose Admin Acetaminophen 650 mg 03/26/25 18:18 03/28/25 06:28 Acetaminophen 325 Mg Tablet PO 650 mg Q4H PRN Administration Pain/Fever Calcium Carbonate 500 mg 03/26/25 21:00 03/28/25 08:07 Calcium Oyster Shell Elemental 500 Mg Tablet PO 500 mg BID ANTONINA Administration Cyanocobalamin 100 mcg 03/26/25 18:30 03/28/25 08:07 Cyanocobalamin (Vitamin B-12) 100 Mcg Tablet PO 100 mcg DAILY ANTONINA Administration Furosemide 20 mg 03/26/25 18:30 03/28/25 07:28 Furosemide 20 Mg Tablet PO Not Given DAILY [facility] Protocol Sodium Chloride 1,000 mls @ 500 mls/hr 03/25/25 12:50 03/25/25 20:41 Ns IVCONT 03/25/25 14:49 Infused .Q2H ONE Infusion Insulin Glargine 15 unit 03/26/25 21:00 03/27/25 21:55 Insulin Glargine,Hum.Rec.Anlog 100 Unit/Ml 10 Ml Vial SUBCUT 15 unit BEDTIME ANTONINA Administration Insulin Human Lispro 0 unit 03/25/25 16:30 03/26/25 13:20 Insulin Lispro 100 Unit/Ml 3 Ml Vial SUBCUT 03/26/25 16:05 6 unit QIDACHS [facility] Administration Protocol Insulin Human Lispro 0 unit 03/26/25 21:00 03/27/25 11:49 Insulin Lispro 100 Unit/Ml 3 Ml Vial SUBCUT 6 unit QIDACHS [facility] Administration Protocol Insulin Human Lispro 0 unit 03/27/25 16:30 03/28/25 08:06 Insulin Lispro 100 Unit/Ml 3 Ml Vial SUBCUT 6 unit TIDAC [facility] Administration Protocol Insulin Human Lispro 5 unit 03/27/25 16:30 03/28/25 08:07 Insulin Lispro 100 Unit/Ml 3 Ml Vial SUBCUT 5 unit TIDAC ANTONINA Administration Insulin Human Regular 10 unit 03/25/25 13:51 03/25/25 13:56 Insulin Regular, Human 100 Unit/Ml 10 Ml Vial IVPUSH 03/25/25 13:52 10 unit ONCE ONE Administration Insulin Human Regular 5 unit 03/25/25 14:45 03/25/25 14:53 Insulin Regular, Human 100 Unit/Ml 10 Ml Vial IVPUSH 03/25/25 14:46 5 unit ONCE ONE Administration Levothyroxine Sodium 112 mcg 03/27/25 06:00 03/28/25 05:59 Levothyroxine Sodium 112 Mcg Tablet PO 112 mcg DAILY@0600 ANTONINA Administration Nystatin 1 appl 03/26/25 21:00 03/28/25 08:25 Nystatin Powder 15 Gm Bottle TOPICAL 1 appl TID ANTONINA Administration Protocol Omeprazole 20 mg 03/26/25 18:30 03/28/25 05:59 Omeprazole 20 Mg Capsule.Dr PO 20 mg DAILY@0630 ANTONINA Administration Pravastatin Sodium 80 mg 03/26/25 21:00 03/27/25 21:10 Pravastatin Sodium 80 Mg Tablet PO 80 mg BEDTIME ANTONINA Administration Zinc Sulfate 220 mg 03/27/25 09:00 03/28/25 08:07 Zinc Sulfate 220 Mg Capsule PO 220 mg DAILY ANTONINA Administration Medical Decision Making Medical Decision Making MDM Narrative: 89-year-old female with a past medical history of CAD, T2DM- insulin dependent, CHF presents to the emergency department today after being brought in by family due to elevated glucose and questionable slurred speech. vital signs stable reveal elevated BP of 140/61. Patient is in no acute distress, nontoxic appearing, speaking appropriately with no focal neurological deficits observed A&O x3. On pulmonary exam lungs CTA, no crackles observed. Lower extremities show no pitting edema, or overlying skin changes. Patient states she has no pain and has no physical complaints. EKG obtained and reveals first-degree AV block and LBBB, with prolonged QT. however no concerns for STEMI or T-wave abnormalities. Troponin is elevated at 18 however on chart review this is coming down from a level of 24.6 on 03/21. No concern for acute ischemia, ACS. Serum glucose is elevated at 500. UA reveals greater than a 1000 glucose. Beta-hydroxybutyrate is elevated at 3 this lab value has trended down from 3.69 on 03/21 when the patient was hospitalized for DKA and CHF. Anion gap and VBG is WNL suggesting that this is not a concern for DKA at this time but suggests hyperglycemia. BNP is elevated at 567 however this lab value has trended down from 1828 on 03/21. No crackles heard on pulm exam, no pitting edema of LE with lab values trending down makes acute CHF exacerbation unlikely. PT is elevated at 12.6. viral swabs are positive for COVID however patient was positive for COVID when hospitalized on 03/21. Will start IV fluids and give 10 units of IV regular insulin and will recheck glucose levels within 1 hour after administration. Will obtain CT head to rule out ICH due to family observing mental status changes. Discussing with daughter if they will be able to care for patient at home or if they need rehab facility placement for care after discharge. Differential Diagnosis Differential Diagnoses: The differential diagnosis associated with the presentation includes DKA Hyperglycemia ICH ACS CHF exacerbation Electrolyte abnormality Admission/Observation Consideration of admission/observation: Escalation of care including admission/observation considered Lab Data MDM Lab Attestation statement: I reviewed the patient's lab results. 03/25/25 12:22 03/25/25 12:23 Labs: Lab Results 03/25/25 03/25/25 03/25/25 Range/Units 11:45 12:22 12:23 WBC 7.8 (4.8-10.8) X10*3/uL RBC 3.83 L (4.20-5.50) X10*6/uL Hgb 10.0 L (12.0-16.0) g/dl Hct 30.9 L (37.0-47.0) % MCV 80.7 (80.0-98.0) fL MCH 26.1 L (27.0-33.0) pg MCHC 32.4 (31.0-35.0) g/dl RDW 17.2 H (11.0-16.0) % Plt Count 342 (160-400) X10*3/uL MPV 10.9 (9.4-12.3) fL Immature Gran % (Auto) 0.4 (0.0-0.4) % Neut % (Auto) 76.0 H (45-73) % Lymph % (Auto) 16.3 L (20-40) % [place] % (Auto) 6.2 (2-11) % Eos % (Auto) 0.5 (0-4) % Baso % (Auto) 0.6 (0-2) % Lymph # (Auto) 1.3 (1.2-4.9) X10*3/uL [place] # (Auto) 0.5 (0.1-1.2) X10*3/uL Eos # (Auto) 0.0 (0.0-0.4) X10*3/uL Baso # (Auto) 0.1 (0.0-0.2) X10*3/uL Abs Immat Gran (auto) 0.03 (0.00-0.03) X10*3/uL Absolute Neuts (auto) 5.9 (2.0-8.3) x10*3/uL Absolute Nucleated RBC 0.000 (0.0-0.012) X10*3/uL Nucleated RBC % (auto) 0.0 (0.0-0.2) /100WBC PT 12.6 H (10.9-12.4) SEC INR 1.1 (0.9-1.1) VBG pH (7.32-7.43) VBG pCO2 mmHg VBG pO2 mmHg VBG HCO3 (22-26) mmol/L VBG O2 Saturation % VBG Base Excess mmol/L Sodium 130 L (135-145) mmol/L Potassium 4.6 (3.3-5.1) mmol/L Chloride 96 (96-108) mmol/L Carbon Dioxide 20 L (22-29) mmol/L Anion Gap 19 (12-20) BUN 21 H (9-16) mg/dL Creatinine 1.10 (0.5-1.4) mg/dL Estim Creat Clear Calc 34.1 Estimated GFR 47 POC Glucose 441 H* (60-115) mg/dL Random Glucose 500 H* (60-115) mg/dL Calcium 8.6 (8.4-10.2) mg/dL Magnesium 1.7 (1.6-2.6) mg/dL Total Bilirubin 0.8 (0.0-1.0) mg/dL AST 25 (5-31) U/L ALT 6 (0-31) U/L Alkaline Phosphatase 86 (39-117) U/L Troponin I High Sens 18.0 H (<3.5-17.0) ng/L B-Natriuretic Peptide 567 H (<100) pg/mL Total Protein 6.4 L (6.5-8.0) g/dL Albumin 3.6 (3.5-5.0) g/dL Beta-Hydroxybutyrate 3.00 H (0.02-0.27) mmol/L Urine Color Urine Appearance Urine pH (5.0-9.0) Ur Specific [place] (1.005-1.025) Urine Protein (Neg-Trace) mg/dL Urine Glucose (UA) (Negative) mg/dL Urine Ketones (Negative) mg/dL Urine Blood (Negative) Urine Nitrite (Negative) Ur Leukocyte Esterase (Negative) Urine RBC (0-2) /HPF Urine WBC (0-5) /HPF Ur Squamous Epith Cells (0-2) /HPF Urine Bacteria (None Seen) Hyaline Casts (0-2) /LPF Influenza Type A (PCR) (Negative) Influenza Type B (PCR) (Negative) RSV RNA Qual (PCR) (Negative) SARS-CoV-2 RNA (RT-PCR) (Negative) 03/25/25 03/25/25 03/25/25 Range/Units 12:24 12:33 12:36 WBC (4.8-10.8) X10*3/uL RBC (4.20-5.50) X10*6/uL Hgb (12.0-16.0) g/dl Hct (37.0-47.0) % MCV (80.0-98.0) fL MCH (27.0-33.0) pg MCHC (31.0-35.0) g/dl RDW (11.0-16.0) % Plt Count (160-400) X10*3/uL MPV (9.4-12.3) fL Immature Gran % (Auto) (0.0-0.4) % Neut % (Auto) (45-73) % Lymph % (Auto) (20-40) % [place] % (Auto) (2-11) % Eos % (Auto) (0-4) % Baso % (Auto) (0-2) % Lymph # (Auto) (1.2-4.9) X10*3/uL [place] # (Auto) (0.1-1.2) X10*3/uL Eos # (Auto) (0.0-0.4) X10*3/uL Baso # (Auto) (0.0-0.2) X10*3/uL Abs Immat Gran (auto) (0.00-0.03) X10*3/uL Absolute Neuts (auto) (2.0-8.3) x10*3/uL Absolute Nucleated RBC (0.0-0.012) X10*3/uL Nucleated RBC % (auto) (0.0-0.2) /100WBC PT (10.9-12.4) SEC INR (0.9-1.1) VBG pH 7.38 (7.32-7.43) VBG pCO2 40 mmHg VBG pO2 48 mmHg VBG HCO3 24 (22-26) mmol/L VBG O2 Saturation 67.0 % VBG Base Excess -0.6 mmol/L Sodium (135-145) mmol/L Potassium (3.3-5.1) mmol/L Chloride (96-108) mmol/L Carbon Dioxide (22-29) mmol/L Anion Gap (12-20) BUN (9-16) mg/dL Creatinine (0.5-1.4) mg/dL Estim Creat Clear Calc Estimated GFR POC Glucose (60-115) mg/dL Random Glucose (60-115) mg/dL Calcium (8.4-10.2) mg/dL Magnesium (1.6-2.6) mg/dL Total Bilirubin (0.0-1.0) mg/dL AST (5-31) U/L ALT (0-31) U/L Alkaline Phosphatase (39-117) U/L Troponin I High Sens (<3.5-17.0) ng/L B-Natriuretic Peptide (<100) pg/mL Total Protein (6.5-8.0) g/dL Albumin (3.5-5.0) g/dL Beta-Hydroxybutyrate (0.02-0.27) mmol/L Urine Color Yellow Urine Appearance Clear Urine pH 5.5 (5.0-9.0) Ur Specific [place] 1.015 (1.005-1.025) Urine Protein Negative (Neg-Trace) mg/dL Urine Glucose (UA) >=1000 H (Negative) mg/dL Urine Ketones 15 (Negative) mg/dL Urine Blood Negative (Negative) Urine Nitrite Negative (Negative) Ur Leukocyte Esterase Negative (Negative) Urine RBC 0-2 (0-2) /HPF Urine WBC 0-5 (0-5) /HPF Ur Squamous Epith Cells 11-20 (0-2) /HPF Urine Bacteria None Seen (None Seen) Hyaline Casts 0-2 (0-2) /LPF Influenza Type A (PCR) NEGATIVE (Negative) Influenza Type B (PCR) NEGATIVE (Negative) RSV RNA Qual (PCR) NEGATIVE (Negative) SARS-CoV-2 RNA (RT-PCR) POSITIVE A (Negative) 03/25/25 03/25/25 03/25/25 Range/Units 14:40 15:49 19:17 WBC (4.8-10.8) X10*3/uL RBC (4.20-5.50) X10*6/uL Hgb (12.0-16.0) g/dl Hct (37.0-47.0) % MCV (80.0-98.0) fL MCH (27.0-33.0) pg MCHC (31.0-35.0) g/dl RDW (11.0-16.0) % Plt Count (160-400) X10*3/uL MPV (9.4-12.3) fL Immature Gran % (Auto) (0.0-0.4) % Neut % (Auto) (45-73) % Lymph % (Auto) (20-40) % [place] % (Auto) (2-11) % Eos % (Auto) (0-4) % Baso % (Auto) (0-2) % Lymph # (Auto) (1.2-4.9) X10*3/uL [place] # (Auto) (0.1-1.2) X10*3/uL Eos # (Auto) (0.0-0.4) X10*3/uL Baso # (Auto) (0.0-0.2) X10*3/uL Abs Immat Gran (auto) (0.00-0.03) X10*3/uL Absolute Neuts (auto) (2.0-8.3) x10*3/uL Absolute Nucleated RBC (0.0-0.012) X10*3/uL Nucleated RBC % (auto) (0.0-0.2) /100WBC PT (10.9-12.4) SEC INR (0.9-1.1) VBG pH (7.32-7.43) VBG pCO2 mmHg VBG pO2 mmHg VBG HCO3 (22-26) mmol/L VBG O2 Saturation % VBG Base Excess mmol/L Sodium (135-145) mmol/L Potassium (3.3-5.1) mmol/L Chloride (96-108) mmol/L Carbon Dioxide (22-29) mmol/L Anion Gap (12-20) BUN (9-16) mg/dL Creatinine (0.5-1.4) mg/dL Estim Creat Clear Calc Estimated GFR POC Glucose 330 H 246 H 227 H (60-115) mg/dL Random Glucose (60-115) mg/dL Calcium (8.4-10.2) mg/dL Magnesium (1.6-2.6) mg/dL Total Bilirubin (0.0-1.0) mg/dL AST (5-31) U/L ALT (0-31) U/L Alkaline Phosphatase (39-117) U/L Troponin I High Sens (<3.5-17.0) ng/L B-Natriuretic Peptide (<100) pg/mL Total Protein (6.5-8.0) g/dL Albumin (3.5-5.0) g/dL Beta-Hydroxybutyrate (0.02-0.27) mmol/L Urine Color Urine Appearance Urine pH (5.0-9.0) Ur Specific [place] (1.005-1.025) Urine Protein (Neg-Trace) mg/dL Urine Glucose (UA) (Negative) mg/dL Urine Ketones (Negative) mg/dL Urine Blood (Negative) Urine Nitrite (Negative) Ur Leukocyte Esterase (Negative) Urine RBC (0-2) /HPF Urine WBC (0-5) /HPF Ur Squamous Epith Cells (0-2) /HPF Urine Bacteria (None Seen) Hyaline Casts (0-2) /LPF Influenza Type A (PCR) (Negative) Influenza Type B (PCR) (Negative) RSV RNA Qual (PCR) (Negative) SARS-CoV-2 RNA (RT-PCR) (Negative) 03/25/25 03/26/25 03/26/25 Range/Units 21:21 07:33 13:03 WBC (4.8-10.8) X10*3/uL RBC (4.20-5.50) X10*6/uL Hgb (12.0-16.0) g/dl Hct (37.0-47.0) % MCV (80.0-98.0) fL MCH (27.0-33.0) pg MCHC (31.0-35.0) g/dl RDW (11.0-16.0) % Plt Count (160-400) X10*3/uL MPV (9.4-12.3) fL Immature Gran % (Auto) (0.0-0.4) % Neut % (Auto) (45-73) % Lymph % (Auto) (20-40) % [place] % (Auto) (2-11) % Eos % (Auto) (0-4) % Baso % (Auto) (0-2) % Lymph # (Auto) (1.2-4.9) X10*3/uL [place] # (Auto) (0.1-1.2) X10*3/uL Eos # (Auto) (0.0-0.4) X10*3/uL Baso # (Auto) (0.0-0.2) X10*3/uL Abs Immat Gran (auto) (0.00-0.03) X10*3/uL Absolute Neuts (auto) (2.0-8.3) x10*3/uL Absolute Nucleated RBC (0.0-0.012) X10*3/uL Nucleated RBC % (auto) (0.0-0.2) /100WBC PT (10.9-12.4) SEC INR (0.9-1.1) VBG pH (7.32-7.43) VBG pCO2 mmHg VBG pO2 mmHg VBG HCO3 (22-26) mmol/L VBG O2 Saturation % VBG Base Excess mmol/L Sodium (135-145) mmol/L Potassium (3.3-5.1) mmol/L Chloride (96-108) mmol/L Carbon Dioxide (22-29) mmol/L Anion Gap (12-20) BUN (9-16) mg/dL Creatinine (0.5-1.4) mg/dL Estim Creat Clear Calc Estimated GFR POC Glucose 268 H 313 H 268 H (60-115) mg/dL Random Glucose (60-115) mg/dL Calcium (8.4-10.2) mg/dL Magnesium (1.6-2.6) mg/dL Total Bilirubin (0.0-1.0) mg/dL AST (5-31) U/L ALT (0-31) U/L Alkaline Phosphatase (39-117) U/L Troponin I High Sens (<3.5-17.0) ng/L B-Natriuretic Peptide (<100) pg/mL Total Protein (6.5-8.0) g/dL Albumin (3.5-5.0) g/dL Beta-Hydroxybutyrate (0.02-0.27) mmol/L Urine Color Urine Appearance Urine pH (5.0-9.0) Ur Specific [place] (1.005-1.025) Urine Protein (Neg-Trace) mg/dL Urine Glucose (UA) (Negative) mg/dL Urine Ketones (Negative) mg/dL Urine Blood (Negative) Urine Nitrite (Negative) Ur Leukocyte Esterase (Negative) Urine RBC (0-2) /HPF Urine WBC (0-5) /HPF Ur Squamous Epith Cells (0-2) /HPF Urine Bacteria (None Seen) Hyaline Casts (0-2) /LPF Influenza Type A (PCR) (Negative) Influenza Type B (PCR) (Negative) RSV RNA Qual (PCR) (Negative) SARS-CoV-2 RNA (RT-PCR) (Negative) 03/26/25 03/26/25 03/27/25 Range/Units 18:08 22:03 07:28 WBC (4.8-10.8) X10*3/uL RBC (4.20-5.50) X10*6/uL Hgb (12.0-16.0) g/dl Hct (37.0-47.0) % MCV (80.0-98.0) fL MCH (27.0-33.0) pg MCHC (31.0-35.0) g/dl RDW (11.0-16.0) % Plt Count (160-400) X10*3/uL MPV (9.4-12.3) fL Immature Gran % (Auto) (0.0-0.4) % Neut % (Auto) (45-73) % Lymph % (Auto) (20-40) % [place] % (Auto) (2-11) % Eos % (Auto) (0-4) % Baso % (Auto) (0-2) % Lymph # (Auto) (1.2-4.9) X10*3/uL [place] # (Auto) (0.1-1.2) X10*3/uL Eos # (Auto) (0.0-0.4) X10*3/uL Baso # (Auto) (0.0-0.2) X10*3/uL Abs Immat Gran (auto) (0.00-0.03) X10*3/uL Absolute Neuts (auto) (2.0-8.3) x10*3/uL Absolute Nucleated RBC (0.0-0.012) X10*3/uL Nucleated RBC % (auto) (0.0-0.2) /100WBC PT (10.9-12.4) SEC INR (0.9-1.1) VBG pH (7.32-7.43) VBG pCO2 mmHg VBG pO2 mmHg VBG HCO3 (22-26) mmol/L VBG O2 Saturation % VBG Base Excess mmol/L Sodium (135-145) mmol/L Potassium (3.3-5.1) mmol/L Chloride (96-108) mmol/L Carbon Dioxide (22-29) mmol/L Anion Gap (12-20) BUN (9-16) mg/dL Creatinine (0.5-1.4) mg/dL Estim Creat Clear Calc Estimated GFR POC Glucose 327 H 270 H 335 H (60-115) mg/dL Random Glucose (60-115) mg/dL Calcium (8.4-10.2) mg/dL Magnesium (1.6-2.6) mg/dL Total Bilirubin (0.0-1.0) mg/dL AST (5-31) U/L ALT (0-31) U/L Alkaline Phosphatase (39-117) U/L Troponin I High Sens (<3.5-17.0) ng/L B-Natriuretic Peptide (<100) pg/mL Total Protein (6.5-8.0) g/dL Albumin (3.5-5.0) g/dL Beta-Hydroxybutyrate (0.02-0.27) mmol/L Urine Color Urine Appearance Urine pH (5.0-9.0) Ur Specific [place] (1.005-1.025) Urine Protein (Neg-Trace) mg/dL Urine Glucose (UA) (Negative) mg/dL Urine Ketones (Negative) mg/dL Urine Blood (Negative) Urine Nitrite (Negative) Ur Leukocyte Esterase (Negative) Urine RBC (0-2) /HPF Urine WBC (0-5) /HPF Ur Squamous Epith Cells (0-2) /HPF Urine Bacteria (None Seen) Hyaline Casts (0-2) /LPF Influenza Type A (PCR) (Negative) Influenza Type B (PCR) (Negative) RSV RNA Qual (PCR) (Negative) SARS-CoV-2 RNA (RT-PCR) (Negative) 03/27/25 03/27/25 03/27/25 Range/Units 11:14 16:24 18:34 WBC (4.8-10.8) X10*3/uL RBC (4.20-5.50) X10*6/uL Hgb (12.0-16.0) g/dl Hct (37.0-47.0) % MCV (80.0-98.0) fL MCH (27.0-33.0) pg MCHC (31.0-35.0) g/dl RDW (11.0-16.0) % Plt Count (160-400) X10*3/uL MPV (9.4-12.3) fL Immature Gran % (Auto) (0.0-0.4) % Neut % (Auto) (45-73) % Lymph % (Auto) (20-40) % [place] % (Auto) (2-11) % Eos % (Auto) (0-4) % Baso % (Auto) (0-2) % Lymph # (Auto) (1.2-4.9) X10*3/uL [place] # (Auto) (0.1-1.2) X10*3/uL Eos # (Auto) (0.0-0.4) X10*3/uL Baso # (Auto) (0.0-0.2) X10*3/uL Abs Immat Gran (auto) (0.00-0.03) X10*3/uL Absolute Neuts (auto) (2.0-8.3) x10*3/uL Absolute Nucleated RBC (0.0-0.012) X10*3/uL Nucleated RBC % (auto) (0.0-0.2) /100WBC PT (10.9-12.4) SEC INR (0.9-1.1) VBG pH (7.32-7.43) VBG pCO2 mmHg VBG pO2 mmHg VBG HCO3 (22-26) mmol/L VBG O2 Saturation % VBG Base Excess mmol/L Sodium (135-145) mmol/L Potassium (3.3-5.1) mmol/L Chloride (96-108) mmol/L Carbon Dioxide (22-29) mmol/L Anion Gap (12-20) BUN (9-16) mg/dL Creatinine (0.5-1.4) mg/dL Estim Creat Clear Calc Estimated GFR POC Glucose 284 H 185 H 293 H (60-115) mg/dL Random Glucose (60-115) mg/dL Calcium (8.4-10.2) mg/dL Magnesium (1.6-2.6) mg/dL Total Bilirubin (0.0-1.0) mg/dL AST (5-31) U/L ALT (0-31) U/L Alkaline Phosphatase (39-117) U/L Troponin I High Sens (<3.5-17.0) ng/L B-Natriuretic Peptide (<100) pg/mL Total Protein (6.5-8.0) g/dL Albumin (3.5-5.0) g/dL Beta-Hydroxybutyrate (0.02-0.27) mmol/L Urine Color Urine Appearance Urine pH (5.0-9.0) Ur Specific [place] (1.005-1.025) Urine Protein (Neg-Trace) mg/dL Urine Glucose (UA) (Negative) mg/dL Urine Ketones (Negative) mg/dL Urine Blood (Negative) Urine Nitrite (Negative) Ur Leukocyte Esterase (Negative) Urine RBC (0-2) /HPF Urine WBC (0-5) /HPF Ur Squamous Epith Cells (0-2) /HPF Urine Bacteria (None Seen) Hyaline Casts (0-2) /LPF Influenza Type A (PCR) (Negative) Influenza Type B (PCR) (Negative) RSV RNA Qual (PCR) (Negative) SARS-CoV-2 RNA (RT-PCR) (Negative) 03/27/25 03/28/25 Range/Units 21:27 07:24 WBC (4.8-10.8) X10*3/uL RBC (4.20-5.50) X10*6/uL Hgb (12.0-16.0) g/dl Hct (37.0-47.0) % MCV (80.0-98.0) fL MCH (27.0-33.0) pg MCHC (31.0-35.0) g/dl RDW (11.0-16.0) % Plt Count (160-400) X10*3/uL MPV (9.4-12.3) fL Immature Gran % (Auto) (0.0-0.4) % Neut % (Auto) (45-73) % Lymph % (Auto) (20-40) % [place] % (Auto) (2-11) % Eos % (Auto) (0-4) % Baso % (Auto) (0-2) % Lymph # (Auto) (1.2-4.9) X10*3/uL [place] # (Auto) (0.1-1.2) X10*3/uL Eos # (Auto) (0.0-0.4) X10*3/uL Baso # (Auto) (0.0-0.2) X10*3/uL Abs Immat Gran (auto) (0.00-0.03) X10*3/uL Absolute Neuts (auto) (2.0-8.3) x10*3/uL Absolute Nucleated RBC (0.0-0.012) X10*3/uL Nucleated RBC % (auto) (0.0-0.2) /100WBC PT (10.9-12.4) SEC INR (0.9-1.1) VBG pH (7.32-7.43) VBG pCO2 mmHg VBG pO2 mmHg VBG HCO3 (22-26) mmol/L VBG O2 Saturation % VBG Base Excess mmol/L Sodium (135-145) mmol/L Potassium (3.3-5.1) mmol/L Chloride (96-108) mmol/L Carbon Dioxide (22-29) mmol/L Anion Gap (12-20) BUN (9-16) mg/dL Creatinine (0.5-1.4) mg/dL Estim Creat Clear Calc Estimated GFR POC Glucose 204 H 258 H (60-115) mg/dL Random Glucose (60-115) mg/dL Calcium (8.4-10.2) mg/dL Magnesium (1.6-2.6) mg/dL Total Bilirubin (0.0-1.0) mg/dL AST (5-31) U/L ALT (0-31) U/L Alkaline Phosphatase (39-117) U/L Troponin I High Sens (<3.5-17.0) ng/L B-Natriuretic Peptide (<100) pg/mL Total Protein (6.5-8.0) g/dL Albumin (3.5-5.0) g/dL Beta-Hydroxybutyrate (0.02-0.27) mmol/L Urine Color Urine Appearance Urine pH (5.0-9.0) Ur Specific [place] (1.005-1.025) Urine Protein (Neg-Trace) mg/dL Urine Glucose (UA) (Negative) mg/dL Urine Ketones (Negative) mg/dL Urine Blood (Negative) Urine Nitrite (Negative) Ur Leukocyte Esterase (Negative) Urine RBC (0-2) /HPF Urine WBC (0-5) /HPF Ur Squamous Epith Cells (0-2) /HPF Urine Bacteria (None Seen) Hyaline Casts (0-2) /LPF Influenza Type A (PCR) (Negative) Influenza Type B (PCR) (Negative) RSV RNA Qual (PCR) (Negative) SARS-CoV-2 RNA (RT-PCR) (Negative) Independent Interpretation I performed an independent interpretation of an: EKG and CT Scan Interpretation: I independently reviewed the EKG and agree with the findings Vent. Rate : 67 BPM Atrial Rate : 67 BPM P-R Int : 212 ms QRS Dur : 148 ms QT Int : 498 ms P-R-T Axes : 61 -2 77 degrees QTcB Int : 526 ms Sinus rhythm with 1st degree A-V block Left bundle branch block I independently reviewed the CT scan and agree with the radiologist's findings Radiology Impression Discussion of test interpretation with radiology: I have reviewed the radiologist's reading. Radiologist Impression: CT Head Without Contrast: Comparison: 02/04/2025, 01/17/2025 Findings: Cortical sulci are symmetric Basal ganglia are unremarkable No shift in midline structures No intraparenchymal bleeding or abnormal extra axial blood fluid collections Normal pituitary size Clear paranasal sinuses Unremarkable orbital structures No depressed fractures. A 6.5 mm inner table calcification involving the left parietal bone is present consistent with possible remote calcified meningioma Impression: Chronic involutional volume loss. No acute findings. This document has been electronically signed by: Charles Aquino MD on 03/25/2025 15:35:49 Independent Historian Clinical information obtained from an independent historian. History obtained from or confirmed by: Other (Daughter by phone ) External Record Review External record reviewed: Inpatient record, Office record and Outpatient record Chronic Conditions Patient?s care impacted by: Diabetes and Other (CHF) Discharge Plan Discharge Clinical Impression: Diabetes mellitus with hyperglycemia, COVID Patient Disposition: Home, Self-Care Instructions: Diabetic Hyperglycemia (ED), COVID-19 (Coronavirus Disease 2019) (ED) Additional Instructions: your glucose has been elevated your insulin regimen was adjusted by adding lispro 5 units with meals in addition to your lispro sliding scale (based on what your glucose is before meals) continue your lantus (long acting insulin) 15 units nightly monitor your sugars before meals and at bedtime recommend avoiding lispro insulin at bedtime to prevent low sugars in the morning follow up with Dr. Foster today as scheduled If you develop new or worsening symptoms call 911 or come back to the ER for further evaluation. Prescriptions: No Action calcium carbonate 500 mg calcium (1,250 mg) Tablet 500 mg PO BID omeprazole 20 mg Capsule,Delayed Release(Dr/Ec) 20 mg PO DAILY@0630 Qty: 90 0RF insulin aspart U-100 [Novolog FlexPen U-100 Insulin] 100 unit/mL (3 mL) insulin pen See Protocol SUBCUT TIDWM Protocol: Insulin Correction Scale Less than or equal to 110 ---- Give (units): 0 111 to 150 Give (units): 0 151 to 200 Give (units): 2 201 to 250 Give (units): 4 251 to 300 Give (units): 6 301 to 350 Give (units): 8 Greater than 350 Give (units): 10 Call MD if Blood Glucose > : 350 Patient Comments: 9 to 19 units per sliding scale 3 times daily 10 minutes before meals acetaminophen [Tylenol] 325 mg Tablet 650 mg PO Q4-6H PRN (Reason: Pain/Fever) levothyroxine 112 mcg tablet 112 mcg PO DAILY@0600 cyanocobalamin (vitamin B-12) 100 mcg Tablet 100 mcg PO DAILY pravastatin 40 mg tablet 80 mg PO BEDTIME zinc sulfate 220 mg Capsule 220 mg PO DAILY hydralazine 10 mg tablet 10 mg PO BEDTIME PRN (Reason: BP > 150/80) Qty: 1 0RF furosemide [Lasix] 20 mg tablet 20 mg PO DAILY 7 Days Qty: 7 0RF nystatin [Nyamyc] 100,000 unit/gram powder 1 appl topical TID PRN (Reason: Rash) Protocol: Apply to: Apply to: affected areas (DME) FreeStyle Anna 3 [place] Misc See Rx Instructions .Route Rx Instructions: As directed (DME) FreeStyle Anna 3 Sensor Device See Rx Instructions .Route Rx Instructions: As directed (DME) Ketone Urine Test Strip See Rx Instructions .ROUTE .MEDSUPPLY Qty: 100 0RF Rx Instructions: As directed TRUEplus Glucose 15 gram/32 mL gel in packet 15 g PO Q15M PRN (Reason: hypoglycemia (glucose under 70)) Qty: 128 3RF Rx Instructions: until symptoms of low blood sugar are controlled insulin glargine [Lantus Solostar U-100 Insulin] 100 unit/mL (3 mL) insulin pen 15 unit subcut BEDTIME Referrals: [facility] [Outside] Janes Foster MD [Primary Care Provider] - Interventions: ED Discharge Assessment Last Done: 03/28/25 11:18 Discharge Date/Time: 03/28/25 11:25 Print Language: Lithuanian
[2025-03-25 11:34] VITALS: BP 140/61; PULSE 73; RESP 14; TEMP 36.6; O2SAT 99; BMI 30.1
--- NOTE | 2025-03-25 11:35 | ECG_ITS ---
Test Reason : slurred speech Blood Pressure : */* mmHG Vent. Rate : 67 BPM Atrial Rate : 67 BPM P-R Int : 212 ms QRS Dur : 148 ms QT Int : 498 ms P-R-T Axes : 61 -2 77 degrees QTcB Int : 526 ms Sinus rhythm with 1st degree A-V block Left bundle branch block Abnormal ECG When compared with ECG of 08-Feb-2025 12:40, QT has lengthened Referred By: Jadyn Haywood Electronically Signed By: SEAMUS RODRIGUEZ
--- OUTSIDE RECORDS SUMMARY | 2025-03-25 11:51 | XMS_ITS | Patient Health Record ---
Author Organization [facility] Address [address] [place] [address] Care Team Providers Care Brick Wheeler Name Role Phone Janes Foster MD Primary Care Provider Fernando Wall Unavailable [phone] Allergies Allergen (clinical drug ingredient) Drug/Non Drug [...] Problem Acquired hammer toe of right foot (4743555007967470 ) Other hammer toe(s) (acquired), right foot (M20.41) Active confirmed Response to treatment, Improvemen t Problem Acquired hammer toe of left foot (8909176859930482 ) Other hammer toe(s) (acquired), left foot (M20.42) Active confirmed Response to treatment, Improvemen t Problem Polyneuropathy due to diabetes mellitus type I (041494702) 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 Vital Signs Blood pressure diastolic 68 mm Hg 07/15/2024 Height 5 ft 6 in in 07/15/2024 Blood pressure systolic 128 mm Hg 07/15/2024 Weight 175 lbs 07/15/2024 BMI 28.24 kg/m2 07/15/2024 Procedures Procedure Date Ordered Date Performed Result Body Sit e 98048-KXEMTPU NAIL, 6 OR MORE 05/03/2024 N/A 55917-Rsyyyote Plate 05/03/2024 N/A 58912-XPDO SKIN LESIONS, OVER 4 05/03/2024 N/A 85818-HDBMYQJ NAIL, 6 OR MORE 07/15/2024 N/A 55458-Iesgrqbs Plate 07/15/2024 N/A 41281-ZEZR SKIN LESIONS, OVER 4 07/15/2024 N/A Encounters Encounter Location Date Provider Diagnosis [facility] [address] [address] 05/03/2024 Fernando Lim Type 1 diabetes mellitus with diabetic polyneuropathy E10.42 ; Tinea unguium B35.1 and Ingrown nail L60.0 [facility] [address] [address] 07/15/2024 Fernando Lim Type 1 diabetes mellitus with diabetic polyneuropathy E10.42 ; Tinea unguium B35.1 and Ingrown nail L60.0 [facility] [address] [place] [address] 10/17/2024 Fernando Lim Assessments Encounter Date Diagnosis [...] Test Name Order Date Hemoglobin A1c 11/30/2015 85294-XWLSJXI NAIL, 6 OR MORE 02/01/2016 76225-UGYUMKM NAIL, 6 OR MORE 04/08/2016 51808-FSNSORH NAIL, 6 OR MORE 07/08/2016 40743-ELJRWNW NAIL, 6 OR MORE 09/16/2016 77975-YTKEYPB NAIL, 6 OR MORE 08/21/2015 34166-WJQEMNZ NAIL, 6 OR MORE 11/30/2015 73652-ZCHAZHW NAIL, 6 OR MORE 08/25/2014 17688-ZAMQFPM NAIL, 6 OR MORE 10/27/2014 68044-XRNCOIC NAIL, 6 OR MORE 01/12/2015 12073-KDMRLPZ NAIL, 6 OR MORE 03/16/2015 16498-WQPAJOO NAIL, 6 OR MORE 05/25/2015 43585-KYZPVFQ NAIL, 6 OR MORE 06/18/2012 42718-UZYICEF NAIL, 6 OR MORE 08/27/2012 24929-ZLFMQVC NAIL, 6 OR MORE 01/04/2013 58314-FYRSLSH NAIL, 6 OR MORE 03/25/2013 67800-RQJHUZS NAIL, 6 OR MORE 06/17/2013 65346-WHYFAGL NAIL, 6 OR MORE 08/26/2013 15400-OKWEZCI NAIL, 6 OR MORE 12/02/2013 30454-DEASSHI NAIL, 6 OR MORE 02/10/2014 90101-OGDRUXX NAIL, 6 OR MORE 06/06/2014 21554-AGJMKXS NAIL, 6 OR MORE 12/19/2016 44401-GQUYEQU NAIL, 6 OR MORE 04/03/2017 95602-JIMLNEL NAIL, 6 OR MORE 06/05/2017 90667-GEVQLJB NAIL, 6 OR MORE 08/14/2017 92642-AZAMZDE NAIL, 6 OR MORE 10/23/2017 54074-NMVFGJN NAIL, 6 OR MORE 01/01/2018 46263-KSLMXCO NAIL, 6 OR MORE 05/11/2018 91548-DLLOJKS NAIL, 6 OR MORE 07/27/2018 59342-BSUFUKL NAIL, 6 OR MORE 10/12/2018 11839-CYACNKF NAIL, 6 OR MORE 01/14/2019 86508-OEYJFPA NAIL, 6 OR MORE 04/08/2019 40681-OSHGBSC NAIL, 6 OR MORE 08/16/2019 11853-OFBRVQY NAIL, 6 OR MORE 10/25/2019 45521-HMWBKTY NAIL, 6 OR MORE 01/03/2020 68711-ZDYAGVD NAIL, 6 OR MORE 05/01/2020 63293-VPKZSWN NAIL, 6 OR MORE 08/17/2020 99739-GRXQVOV NAIL, 6 OR MORE 10/30/2020 78360-RRRCGBK NAIL, 6 OR MORE 01/01/2021 08681-HRARBMI NAIL, 6 OR MORE 03/29/2021 36146-EPFMELQ NAIL, 6 OR MORE 06/14/2021 04576-YZBTGPZ NAIL, 6 OR MORE 11/29/2021 71814-PEAUYFA NAIL, 6 OR MORE 02/11/2022 71172-WYOHMRB NAIL, 6 OR MORE 06/10/2022 35178-KMQUKDL NAIL, 6 OR MORE 09/13/2021 39034-YMTMXNS NAIL, 6 OR MORE 08/22/2022 30297-TBKSQDA NAIL, 6 OR MORE 10/31/2022 28862-YGNANLX NAIL, 6 OR MORE 01/09/2023 55664-YJLRMMZ NAIL, 6 OR MORE 03/24/2023 78992-BPZILCW NAIL, 6 OR MORE 06/05/2023 28188-YGRIYLH NAIL, 6 OR MORE 09/29/2023 88995-NKBLOFQ NAIL, 6 OR MORE 02/19/2024 78894-YLAQNKB NAIL, 6 OR MORE 05/03/2024 26640-KDTYJMU NAIL, 6 OR MORE 07/15/2024 83940-Zcvqekmb Plate 07/15/2024 65864-Ahnspnyn Plate 09/29/2023 57356-Vhhuindk Plate 05/03/2024 78529-Phepqwsk Plate 02/19/2024 91434-Pycyoehg Plate 06/05/2023 51539-Ejvjzwie Plate 10/30/2020 31746-Dosqdkbm Plate 03/24/2023 25204-Likuvilr Plate 08/22/2022 36803-Zwrbujyp Plate 09/13/2021 53735-Aiuxodyf Plate 06/10/2022 20999-Adyiydwo Plate 02/11/2022 38541-Sbemdcmq Plate 11/29/2021 55972-Krcjlrcy Plate 06/14/2021 53072-Vbhkdqrk Plate 03/29/2021 24243-Gockudpy Plate 05/01/2020 37145-Xpxtigjn Plate 06/06/2014 25744-Eetldwmm Plate 02/10/2014 39906-Ngozauaa Plate 12/02/2013 03064-Vwlpbebk Plate 05/25/2015 13640-Uehbxzup Plate 03/16/2015 87560-Dzpiivkk Plate 01/12/2015 74398-Mmklfvyy Plate 01/04/2013 91680-Gmziwrvo Plate 08/21/2015 69216-Ctkqangp Plate 11/30/2015 95305-Jhsvtuql Plate Each Additional 04838-Nvzqxbzl Plate Each Additional 05438-Pglgviwb Plate Each Additional 11/2014 27320-Fnigzmsz Plate Each Additional 08/2015 23943-Ypbjbguk Plate Each Additional 47150-Bjashbtt Plate Each Additional 99145-Xcqiivsa Plate Each Additional 02542-Lplhrlmm Plate Each Additional 24671-Tlrcygbb Plate Each Additional 66798-Rtnfkfdg Plate Each Additional 51195-Pnnwwtie Plate Each Additional 51319-Jtiscvfw Plate Each Additional 59505 I&D ABSCESS- SIMPLE,SINGLE 015 64779-KOVG SKIN LESIONS, OVER 4 06/10/20 50765-MTNQ SKIN LESIONS, OVER 4 08/22/20 65892-YBPH SKIN LESIONS, OVER 4 03/24/20 74419-CGBG SKIN LESIONS, OVER 4 01/09/20 40762-HWVN SKIN LESIONS, OVER 4 10/31/20 19194-CBIK SKIN LESIONS, OVER 4 02/12/20 19460-YLCE SKIN LESIONS, OVER 4 06/05/20 53146-LVMQ SKIN LESIONS, OVER 4 09/29/20 69981-EORP SKIN LESIONS, OVER 4 02/19/20 04134-LNBL SKIN LESIONS, OVER 4 05/03/20 82568-HYPL SKIN LESIONS, OVER 4 07/15/20 61990-CJJS SKIN LESIONS, 2 TO 4 11/29/19 77010-VINS SKIN LESIONS, 2 TO 4 03/29/20 68746-SZST SKIN LESIONS, 2 TO 4 01/01/20 58294-QHYS SKIN LESIONS, 2 TO 4 06/14/20 65573-VMUO SKIN LESIONS, 2 TO 4 09/13/20 90370-IVFY SKIN LESIONS, 2 TO 4 05/01/20 64178-JYCA SKIN LESIONS, 2 TO 4 01/03/20 85653-NZLE SKIN LESIONS, 2 TO 4 10/30/20 98608-WTRU SKIN LESIONS, 2 TO 4 08/17/20 35177-NBJV SKIN LESIONS, 2 TO 4 10/25/20 02227-FRLW SKIN LESIONS, 2 TO 4 08/16/20 01719-ABKH SKIN LESIONS, 2 TO 4 04/08/20 19 87503-ORED SKIN LESIONS, 2 TO 4 01/15/20 19 12441-FMQB SKIN LESIONS, 2 TO 4 10/12/20 18 51904-RCKQ SKIN LESIONS, 2 TO 4 07/27/20 18 49976-HFWI SKIN LESIONS, 2 TO 4 05/11/20 72128-TQVS SKIN LESIONS, 2 TO 4 01/01/20 45038-LRHS SKIN LESIONS, 2 TO 4 10/23/20 32131-AICH SKIN LESIONS, 2 TO 4 08/14/20 60697-NKID SKIN LESIONS, 2 TO 4 06/05/20 54416-OCBO SKIN LESIONS, 2 TO 4 12/19/19 17 13807-KHRW SKIN LESIONS, 2 TO 4 04/03/20 17 82914-DQMV SKIN LESIONS, 2 TO 4 08/21/20 15 06560-NDIA SKIN LESIONS, 2 TO 4 11/30/19 16 68760-SWYK SKIN LESIONS, 2 TO 4 09/16/20 16 07868-WJTU SKIN LESIONS, 2 TO 4 07/08/20 16 68975-STKL SKIN LESIONS, 2 TO 4 04/08/20 16 15964-UAMR SKIN LESIONS, 2 TO 4 02/01/20 16 66385-PTIO SKIN LESIONS, 2 TO 4 05/25/20 15 13911-XQHV SKIN LESIONS, 2 TO 4 03/16/20 15 20561-MFFQ SKIN LESIONS, 2 TO 4 01/12/20 15 94330-ZLEH SKIN LESIONS, 2 TO 4 10/27/20 14 82482-KGQZ SKIN LESIONS, 2 TO 4 08/25/20 14 14366-LBWC SKIN LESIONS, 2 TO 4 06/18/20 12 77266-EODA SKIN LESIONS, 2 TO 4 03/25/20 13 95400-VYQB SKIN LESIONS, 2 TO 4 01/04/20 13 28853-IDMF SKIN LESIONS, 2 TO 4 08/27/20 12 48936-IAUH SKIN LESIONS, 2 TO 4 07/25/20 11 89430-IVIO SKIN LESIONS, 2 TO 4 10/03/20 11 48798-CJDQ SKIN LESIONS, 2 TO 4 12/23/19 12 82799-BPHC SKIN LESIONS, 2 TO 4 03/19/20 12 51936-WVLT SKIN LESIONS, 2 TO 4 06/06/20 14 00334-HZHX SKIN LESIONS, 2 TO 4 02/11/20 14 45723-ROCX SKIN LESIONS, 2 TO 4 12/02/19 14 73871-BWYI SKIN LESIONS, 2 TO 4 08/26/20 13 75362-YOCJ SKIN LESIONS, 2 TO 4 06/17/20 13 O3221-FHEMPHUM DYSTROPHIC NAILS ANY # X4569-WOXVMUVB DYSTROPHIC NAILS ANY # M9657-AXQDWPQH DYSTROPHIC NAILS ANY # V1044-LHTJQPIS DYSTROPHIC NAILS ANY # Insurance Providers Payer Name Payer Address Payer Phone Subscriber Number Group Number Insured Name Patient Relationship to Insured Coverage Start Date Coverage End Date Medicare National [employer] [address] [place] [address] [id number] Lisa Holliday Self - patient is the insured [facility] [address] [facility] [place], [place] [address] [phone] [id number] Lisa Holliday Self - patient is the [...] replacement Surgery 03/31 Hospitalization History Reason Date(Month/Year) [facility] [place] ER - BP was Low / Heart blockage few hrs 11/2022 Vertigo 07/2012 Vertigo. 10/2011
--- OUTSIDE RECORDS SUMMARY | 2025-03-25 11:51 | XMS_ITS | Encounter Summary ---
Author Organization [facility] Address [address] [place] [address] Care Team Providers Care Health Coordinator Name Role Phone Keli Dickinson MD Primary Care Provider [phone] Encounter Details Date Type Department Care Team (Late st Contact Info) Description 02/06/2025 Lab Requisition [facility] [address] [place] [address] Keli Dickinson MD [address] [place] [address] Syncope and collapse Social History [...] LAB CHEMISTRY METHOD 02/06/2025 12:38 PM EDT [facility] Potassium 4.4 3.5 - 5.5 mmol/L LAB CHEMISTRY METHOD 02/06/2025 12:38 PM EDT [facility] Chloride 103 96 - 110 mmol/L LAB CHEMISTRY METHOD 02/06/2025 12:38 PM T [facility] CO2 26 21 - 32 mmol/L LAB CHEMISTRY METHOD 02/06/2025 12:38 PM EDT [facility] Anion Gap 6 3 - 11 LAB CHEMISTRY METHOD 02/06/2025 12:38 PM [facility] Glucose 58(L) 70 - 100 mg/dL LAB CHEMISTRY METHOD 02/06/2025 12:38 PM EDT [facility] BUN 17 5 - 25 mg/dL LAB CHEMISTRY METHOD 02/06/2025 12:38 PM EDT [facility] Creatinine 0.66 0.50 - 1.10 mg/dL LAB CHEMISTR[facility] 84 >=60 mL/min/1. 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
--- OUTSIDE RECORDS SUMMARY | 2025-03-25 11:51 | XMS_ITS ---
Author Organization [facility] Address [address] [facility] [address] Care Team Providers Care Commercial Airline Pilot Name Role Phone Janes Foster MD Primary Care Provider Fernando Wall Unavailable [phone] Allergies Allergen (clinical drug ingredient) Drug/Non Drug [...] Ordered Date Performed Result Body Sit e 93496-DWKHBAT NAIL, 6 OR MORE 07/15/2024 N/A 99969-Erisefbz Plate 07/15/2024 N/A 68406-BHOQ SKIN LESIONS, OVER 4 07/15/2024 N/A Encounters Encounter Location Date Provider Diagnosis [facility] [address] [place] [address] 07/15/2024 Fernando Lim Type 1 diabetes mellitus [...] Treatment Pending Test Test Name Order Date 93289-ITBVYFQ NAIL, 6 OR MORE 07/15/2024 55443-Pqjbdwis Plate 07/15/2024 81550-NFPV SKIN LESIONS, OVER 4 07/15/20 24 Next [...] Motrin was recommended for pain or discomfort (07555) , DIABETES: Pt was advised as to [...] use of a nail nipper and/or dremel-type stand grinder, to a more viable healthy nail plate or bed tissue 6-10. Silver nitrate used for any petechial bleeding as necessary. Definitive antifungal treatment options have been reviewed and discussed with the patient. The patient chooses, no pharmaceutical tx - 49928 Keratoma Treatment Parring or Cutting o f Benign Hyperkeratotic Lesion(s) 87386 ( >4 Lesions) - The Benign hyperkeratotic lesions, as described above were pared, and/or cut utilizing a sterile #15 blade, tissue nippers, and/or dremel Progress Notes * Lisa HOLLIDAY ADOB:[birth year] (88 yo F)Acc No.[id number]:07/15/2024 Progress Note Patient:?Lisa Holliday Provider:?Fernando Lim DPM :1935???Age:88 Y???Sex:Female D ate:07/15/2024 Address: [address] , [id number] Pcp:Janes Foster MD Subjective: * Chief Complaints: [...] thyroidectomy needle Biopsy breast tissue 01/2017,02/2017Breast biopsy [place]2017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 10/2011Vertigo 07/2012[facility] ER - BP [...] , T5? Plan: * Treatment: 2.?Ingrown nail?Procedure: 83429-Xelzearn Plate * Procedures:?Debride Nail 6-10:?Nail debridement?Performance of this nail treatment by a nonprofessional would put this patients foot and overall health at risk. Therefore, nail debridement was performed extensively to reduce/remove overall nail length, girth, thickness, subungual debris, and necrotic tissue, by manual and/or electrical means through the use of a nail nipper and/or dremel-type stand grinder, to a more viable healthy nail plate or bed tissue 6-10. Silver nitrate used for any petechial bleeding as necessary. Definitive antifungal treatment options have been reviewed and discussed with the patient. The patient chooses, no pharmaceutical tx - 04950.?Keratoma Treatment:?Parring or Cutting of Benign Hyperkeratotic Lesion(s)?90009 ( >4 Lesions) - The Benign hyperkeratotic [...] Motrin was recommended for pain or discomfort (87596) , DIABETES: Pt was advised as to the risk of delayed or nonhealing due to diabetes. Pt is to call the office with any questions, concerns, or complications.? * Procedure Codes:?92344 DEBRI DE NAIL, 6 OR MORE, Modifiers: XS 48693 Avulsion Plate, Modifiers: XS , [id number] TRIM SKIN LESIONS, OVER 4, Modifiers: XS * Follow Up:?prn * Images: * Sign off status: Completed true * Provider:?Fernando Lim DPM Date:?2023 Generated for Angélica ken/Jonnie/Nat on:?03/25/2025 11:51 AM EDT History and Physical Notes * [...]
--- OUTSIDE RECORDS SUMMARY | 2025-03-25 11:51 | XMS_ITS | Clinical Summary ---
Author Organization [facility] Address [address] [place] [address] Phone Care Team Providers Care Resident Associate Name Role Phone Keli Dickinson MD Primary Care Provider [phone] Encounters Date Type Department Care Team Description 02/23/2025 Lab Requisition [facility] Lab [address] [place] [phone] Keli Dickinson MD Urgency of urination; Urinary tract infection, site not specified 02/07/2025 Lab Requisition [facility] Lab [address] [place] [address] Keli Dickinson MD Urinary tract infection, site not specified 02/06/[address] [facility] Main Lab [address] [place] [address] Keli Dickinson MD Syncope and collapse 01/28/2025 Lab Requisition [facility] - Main Lab [address] [place] [address] Keli Dickinson MD Anemia, unspecified 01/26/2025 Lab Requisition [facility] Lab [address] [place] [address] Keli Dickinson MD Urinary tract infection, site not specified 01/18/2025 Lab Requisition [facility] Lab [address] [place] [phone] Keli Dickinson MD Type 2 diabetes mellitus [...] EST Type 2 diabetes mellitus without complications ([facility]) Essential (primary) hypertension Hypo-osmolality and hyponatremia COMPLETE BLOOD COUNT Routine 01/18/2025 9:14 AM EST Type 2 diabetes mellitus without complications ([facility]) Essential (primary) hypertension Hypo-osmolality and hyponatremia HEMOGLOBIN A1C Routine 11/19/2024 7:20 AM EST Type 2 diabetes mellitus without complications ([facility]) Anemia, unspecified from Last 3 Months or Most Recently Relevant to Health Maintenance Results * (ABNORMAL) Urinalysis with reflex microscopic and culture (02/21/2025 10:30 PM EDT) Specific [place] Urine 1.029 1.003 - 1.030 LAB URINALYSIS - AUTOMATED METHOD 02/23/2025 11:46 AM [facility] pH, Urine >=9.0(A) 5.0 - 8.0 pH LAB URINALYSIS - AUTOMATED METHOD 02/23/2025 11:46 AM [facility] Leukocytes, Urine Large(A) Negative LAB URINALYSIS - AUTOMATED METHOD 02/23/2025 11:46 AM [facility] Nitrite, Urine Positive(A) Negative LAB URINALYSIS - AUTOMATED METHOD 02/23/2025 11:46 AM [facility] Protein, Urine >=1000(A) <=Trace mg/dL LAB URINALYSIS - AUTOMATED METHOD 02/23/2025 11:46 AM [facility] Glucose, Urine 250(A) Negative mg/dL LAB URINALYSIS - AUTOMATED METHOD 02/23/2025 11:46 AM [facility] Ketones, Urine Negative Negative mg/dL LAB URINALYSIS - AUTOMATED METHOD 02/23/2025 11:46 AM [facility] Urobilinogen , Urine 1.0 0.2 - 1.0 mg/dL LAB URINALYSIS - AUTOMATED METHOD 02/23/2025 11:46 AM [facility] Bilirubin, Urine Negative Negative LAB URINALYSIS - AUTOMATED METHOD 02/23/2025 11:46 AM [facility] Blood, Urine Negative Negative LAB URINALYSIS - AUTOMATED METHOD 02/23/2025 11:46 AM [facility] RBC, Urine 4.0 0 - 4 /HPF LAB URINALYSIS - AUTOMATED METHOD 02/23/2025 11:46 AM [facility] WBC, Urine 13.8(H) 0 - 4 /HPF LAB URINALYSIS - AUTOMATED METHOD 02/23/2025 11:46 AM [facility] Squamous Epithelial, Urine >100(H) 0 - 60 /LPF LAB URINALYSIS - AUTOMATED METHOD 02/23/2025 11:46 AM [facility] Crystals, Urine HEAVY TRIPLE PHOS /LPF LAB URINALYSIS - AUTOMATED METHOD 02/23/2025 11:46 AM [facility] Bacteria, Urine Many(A) Negative /HPF LAB URINALYSIS - AUTOMATED METHOD 02/23/2025 11:46 AM [facility] Hyaline Casts, Urine 15.0(H) 0 - 3 /LPF LAB URINALYSIS - AUTOMATED METHOD 02/23/2025 11:46 AM [facility] Urine Urine specimen from urethra / Unknown Non-blood Collection / Unknown 02/21/2025 10:30 PM EDT 02/23/2025 11:14 AM EDT us Keli Dickinson MD LAB URINE ORDERABLES Final Resul t [facility] [address] [place] [address], * Hawkins urine culture tube (02/21/2025 10:30 [...] Final Resul t [facility] [address] [place] [address], * (ABNORMAL) Culture urine (02/21/2025 10:30 PM [...] BOBBY Final Result [facility] [address] [place] [address], * (ABNORMAL) Urinalysis with reflex microscopic (02/07/2025 12:00 AM EDT) Only the most recent of2 resultswithin the time period is included. Specific [place] Urine 1.017 1.003 - 1.030 LAB URINALYSIS - AUTOMATED METHOD 02/07/2025 1:34 PM EDT [facility] pH, Urine 6.0 5.0 - 8.0 pH LAB URINALYSIS - AUTOMATED METHOD 02/07/2025 1:34 PM EDT [facility] Leukocytes, Urine Large(A) Negative LAB URINALYSIS - AUTOMATED METHOD 02/07/2025 1:34 PM EDT [facility] Nitrite, Urine Negative Negative LAB URINALYSIS - AUTOMATED METHOD 02/07/2025 1:34 PM EDT [facility] Protein, Urine 30(A) <=Trace mg/dL LAB URINALYSIS - AUTOMATED METHOD 02/07/2025 1:34 PM EDT [facility] Glucose, Urine Negative Negative mg/dL LAB URINALYSIS - AUTOMATED METHOD 02/07/2025 1:34 PM [facility] Ketones, Urine Trace(A) Negative mg/dL LAB URINALYSIS - AUTOMATED METHOD 02/07/2025 1:34 PM [facility] Urobilinogen , Urine 0.2 0.2 - 1.0 mg/dL LAB URINALYSIS - AUTOMATED METHOD 02/07/2025 1:34 PM [facility] Bilirubin, Urine Negative Negative LAB URINALYSIS - AUTOMATED METHOD 02/07/2025 1:34 PM [facility] Blood, Urine Trace(A) Negative LAB URINALYSIS - AUTOMATED METHOD 02/07/2025 1:34 PM [facility] RBC, Urine 13.5(H) 0 - 4 /HPF LAB URINALYSIS - AUTOMATED METHOD 02/07/2025 1:34 PM [facility] WBC, Urine 846.5(H) 0 - 4 /HPF LAB URINALYSIS - AUTOMATED METHOD 02/07/2025 1:34 PM [facility] Squamous Epithelial, Urine >100(H) 0 - 60 /LPF LAB URINALYSIS - AUTOMATED METHOD 02/07/2025 1:34 PM [facility] Bacteria, Urine Negative Negative /HPF LAB URINALYSIS - AUTOMATED METHOD 02/07/2025 1:34 PM [facility] Hyaline Casts, Urine 12.0(H) 0 - 3 /LPF LAB URINALYSIS - AUTOMATED METHOD 02/07/2025 1:34 PM [facility] Yeast, Urine Present(A) None /HPF LAB URINALYSIS - AUTOMATED METHOD 02/07/2025 1:34 PM [facility] Urine Urine specimen obtained by clean catch procedure / Unknown 02/07/2025 02/07/2025 11:37 AM EDT us Keli Dickinson MD LAB URINE ORDERABLES Final Resul t [facility] [address] [place] [address], * (ABNORMAL) Complete blood count (02/06/2025 7:07 AM EDT) Only the most recent of3 resultswithin the time period is included. WBC 8.2 4.8 - 10.8 K/mcL LAB HEMETOLOGY METHOD 02/06/2025 11:56 AM EDT [facility] RBC 4.10 3.80 - 4.80 M/mcL LAB HEMETOLOGY METHOD 02/06/2025 11:56 AM [facility] Hemoglobin 10.4(L) 11.5 - 16.0 g/dL LAB HEMETOLOGY METHOD 02/06/2025 11:56 AM [facility] Hematocrit 34.0(L) 35.0 - 47.0 % LAB HEMETOLOGY METHOD 02/06/2025 11:56 AM [facility] MCV 82.9 79.0 - 98.0 FL LAB HEMETOLOGY METHOD 02/06/2025 11:56 AM [facility] MCH 25.4(L) 27.0 - 32.0 pcg LAB HEMETOLOGY METHOD 02/06/2025 11:56 AM [facility] MCHC 30.6(L) 32.0 - 37.0 g/dL LAB HEMETOLOGY METHOD 02/06/2025 11:56 AM [facility] RDW 15.9(H) 11.0 - 15.0 % LAB HEMETOLOGY METHOD 02/06/2025 11:56 AM [facility] Platelets 228 130 - 400 K/mcL LAB HEMETOLOGY METHOD 02/06/2025 11:56 AM EDT [facility] MPV 11.6(H) 7.0 - 11.0 FL LAB HEMETOLOGY METHOD 02/06/2025 11:56 AM EDT [facility] NRBC 0.0 <1.0 % LAB HEMETOLOGY METHOD 02/06/2025 11:56 AM EDT [facility] NRBC Absolute 0.00 <0.10 K/mcL LAB HEMETOLOGY METHOD 02/06/2025 11:56 AM EDT [facility] Blood Venous blood specimen / Unknown Venipuncture / Unknown 02/06/2025 7:07 AM EDT 02/06/2025 10:22 AM EDT us Keli Dickinson MD LAB BLOOD ORDERABLES Final Resul t [facility] [address] [place] [address], * (ABNORMAL) Basic metabolic panel (02/06/2025 7:07 AM EDT) Only the most recent of2 resultswithin the time period is included. Sodium 135 133 - 145 mmol/L LAB CHEMISTRY METHOD 02/06/2025 12:38 PM [facility] Potassium 4.4 3.5 - 5.5 mmol/L LAB CHEMISTRY METHOD 02/06/2025 12:38 PM [facility] Chloride 103 96 - 110 mmol/L LAB CHEMISTRY METHOD 02/06/2025 12:38 PM [facility] CO2 26 21 - 32 mmol/L LAB CHEMISTRY METHOD 02/06/2025 12:38 PM [facility] Anion Gap 6 3 - 11 LAB CHEMISTRY METHOD 02/06/2025 12:38 PM [facility] Glucose 58(L) 70 - 100 mg/dL LAB CHEMISTRY METHOD 02/06/2025 12:38 PM EDT [facility] BUN 17 5 - 25 mg/dL LAB CHEMISTRY METHOD 02/06/2025 12:38 PM EDT [facility] Creatinine 0.66 0.50 - 1.10 mg/dL LAB CHEMISTRY METHOD 02/06/2025 12:38 PM EDT [facility] eGFR 84 >=60 mL/min/1. 73m2 LAB CHEMISTRY METHOD 02/06/2025 12:38 PM EDT [facility] Comment:Calculation based on the??Chronic Kidney Disease Epidemiology Collaboration (CKD-EPI) equation refit??without adjustment for race. BUN/Creatinine Ratio 25.8 LAB CHEMISTRY METHOD 02/06/2025 12:38 PM EDT [facility] Calcium 8.7 8.5 - 10.5 mg/dL LAB CHEMISTRY METHOD 02/06/2025 12:38 PM EDT [facility] Blood Venous blood specimen / Unknown Venipuncture / Unknown 02/06/2025 7:07 AM EDT 02/06/2025 10:22 AM EDT Keli Dickinson MD LAB BLOOD ORDERABLES Final Resul t [facility] [address] [place] [address], * (ABNORMAL) D-Dimer (01/28/2025 3:28 PM EDT) D-Dimer, Quant (D-DU) 451(H) <=230 ng/mL DDU LAB COAGULATION METHOD 01/28/2025 4:10 PM EDT [facility] Blood Venous blood specimen / Unknown Venipuncture / Unknown 01/28/2025 3:28 PM EDT 01/28/2025 3:54 PM EDT Narrative [facility] - 01/28/2025 4:10 PM EDT D-Dimer <230 ng/mL (D-Dimer units) is the threshold for exclusion of DVT/PE. D-Dimer may be elevated in: Critically ill, severely infected, trauma patients, DIC, acute CVA, acute [place], unstable angina, AF, old age, , and smoking. D-Dimer may be decreased with: Initiation of heparin therapy and oral anticoagulants. Keli Dickinson MD LAB BLOOD ORDERABLES Final Resul t [facility] [address] [place] [address], * (ABNORMAL) Comprehensive metabolic panel (01/28/2025 3:28 PM EDT) Sodium 135 133 - 145 mmol/L LAB [facility]STRY [facility] Potassium 4.2 3.5 - 5.5 mmol/L LAB CHEMISTRY METHOD 01/28/2025 4:30 PM [facility] Chloride 101 96 - 110 mmol/L LAB CHEMISTRY METHOD 01/28/2025 4:30 PM [facility] CO2 27 21 - 32 mmol/L LAB CHEMISTRY METHOD 01/28/2025 4:30 PM [facility] Anion Gap 7 3 - 11 LAB CHEMISTRY METHOD 01/28/2025 4:30 PM [facility] Glucose 338(H) 70 - 100 mg/dL LAB CHEMISTRY METHOD 01/28/2025 4:30 PM [facility] BUN 15 5 - 25 mg/dL LAB CHEMISTRY METHOD 01/28/2025 4:30 PM [facility] Creatinine 0.87 0.50 - 1.10 mg/dL LAB CHEMISTRY METHOD 01/28/2025 4:30 PM [facility] eGFR 64 >=60 mL/min/1. 73m2 LAB CHEMISTRY METHOD 01/28/2025 4:30 PM [facility] Comment:Calculation based on the??Chronic Kidney Disease Epidemiology Collaboration (CKD-EPI) equation refit??without adjustment for race. BUN/Creatinine Ratio 17.2 LAB CHEMISTRY METHOD 01/28/2025 4:30 PM EDT [facility] Calcium 8.7 8.5 - 10.5 mg/dL LAB CHEMISTRY METHOD 01/28/2025 4:30 PM EDT [facility] AST (SGOT) 14 10 - 42 unit/L LAB CHEMISTRY METHOD 01/28/2025 4:30 PM T [facility] ALT (SGPT) 13 10 - 60 unit/L LAB CHEMISTRY METHOD 01/28/2025 4:30 PM [facility] Alkaline Phosphatase 95 42 - 121 unit/L LAB CHEMISTRY METHOD 01/28/2025 4:30 PM EDT [facility] Total Protein 5.7(L) 6.0 - 8.0 g/dL LAB CHEMISTRY METHOD 01/28/2025 4:30 PM EDT [facility] Albumin 2.8(L) 3.2 - 5.0 g/dL LAB CHEMISTRY METHOD 01/28/2025 4:30 PM EDT [facility] Total Bilirubin 0.4 0.0 - 1.4 mg/dL LAB CHEMISTRY METHOD 01/28/2025 4:30 PM EDT [facility] Blood Venous blood specimen / Unknown Venipuncture / Unknown 01/28/2025 3:28 PM EDT 01/28/2025 3:54 PM EDT us Keli Dickinson MD LAB BLOOD ORDERABLES Final Resul t [facility] [address] [place] [address], * (ABNORMAL) Hemoglobin A1c (11/19/2024 7:20 AM EST) Hemoglobin A1C 6.8(H) <6.5 % LAB CHEMISTRY METHOD 11/21/2024 10:21 AM EST [facility] Mean Bld Glu Estim. 148 mg/dL LAB CHEMISTRY METHOD 11/21/2024 10:21 AM EST [facility] Blood Venous blood specimen / Unknown Venipuncture / Unknown 11/19/2024 7:20 AM EST 11/19/2024 11:06 AM EST us Keli Dickinson MD LAB BLOOD ORDERABLES Final Resul t 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
--- OUTSIDE RECORDS SUMMARY | 2025-03-25 11:51 | XMS_ITS | Encounter Summary ---
Author Organization [facility] Address [address] [place] [address] Care Team Providers Care Blacksmith Helper Name Role Phone Keli Dickinson MD Primary Care Provider [phone] Encounter Details Date Type Department Care Team (Late st Contact Info) Description 02/07/2025 Lab Requisition [facility] - Main Lab [address] [place] [address] Keli Dickinson MD [address] [place] [address] Urinary tract infection, site not [...] Hold for add-ons. 02/07/2025 1:01 PM EDT [facility] ([facility]) [facility] Comment:Auto resulted. Urine Urine specimen obtained by clean catch procedure / Unknown 02/07/2025 02/07/2025 11:38 AM EDT us Keli Dickinson MD LAB URINE ORDERABLES Final Resul t [facility] [address] [place] [address], [place] [phone] * (ABNORMAL) Urinalysis with reflex microscopic (02/07/2025 12:00 AM EDT) Specific [place] Urine 1.017 1.003 - 1.030 LAB URINALYSIS - AUTOMATED METHOD 02/07/2025 1:34 PM EDT [facility] pH, Urine 6.0 5.0 - 8.0 pH LAB URINALYSIS - AUTOMATED METHOD 02/07/2025 1:34 PM [facility] Leukocytes, Urine Large(A) Negative LAB URINALYSIS - AUTOMATED METHOD 02/07/2025 1:34 PM [facility] Nitrite, Urine Negative Negative LAB URINALYSIS - AUTOMATED METHOD 02/07/2025 1:34 PM [facility] Protein, Urine 30(A) <=Trace mg/dL LAB URINALYSIS - AUTOMATED METHOD 02/07/2025 1:34 PM [facility] Glucose, Urine Negative Negative mg/dL LAB URINALYSIS - AUTOMATED METHOD 02/07/2025 1:34 PM [facility] Ketones, Urine Trace(A) Negative mg/dL LAB URINALYSIS - AUTOMATED METHOD 02/07/2025 1:34 PM [facility] Urobilinogen , Urine 0.2 0.2 - 1.0 mg/dL LAB URINALYSIS - AUTOMATED METHOD 02/07/2025 1:34 PM [facility] Bilirubin, Urine Negative Negative LAB URINALYSIS - AUTOMATED METHOD 02/07/2025 1:34 PM [facility] Blood, Urine Trace(A) Negative LAB URINALYSIS - AUTOMATED METHOD 02/07/2025 1:34 PM EDT [facility] RBC, Urine 13.5(H) 0 - 4 /HPF LAB URINALYSIS - AUTOMATED METHOD 02/07/2025 1:34 PM EDT [facility] WBC, Urine 846.5(H) 0 - 4 /HPF LAB URINALYSIS - AUTOMATED METHOD 02/07/2025 1:34 PM EDT [facility] Squamous Epithelial, Urine >100(H) 0 - 60 /LPF LAB URINALYSIS - AUTOMATED METHOD 02/07/2025 1:34 PM EDT [facility] Bacteria, Urine Negative Negative /HPF LAB URINALYSIS - AUTOMATED METHOD 02/07/2025 1:34 PM EDT [facility] Hyaline Casts, Urine 12.0(H) 0 - 3 /LPF LAB URINALYSIS - AUTOMATED METHOD 02/07/2025 1:34 PM EDT [facility] Yeast, Urine Present(A) None /HPF LAB URINALYSIS - AUTOMATED METHOD 02/07/2025 1:34 PM T [facility] Urine Urine specimen obtained by clean catch procedure / Unknown 02/07/2025 02/07/2025 11:37 AM EDT us Keli Dickinson MD LAB URINE ORDERABLES Final Resul t [facility] [address] [place] [address], documented in this encounter Visit Diagnoses Diagnosis Urinary tract infection, site not specified documented in this encounter 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
--- OUTSIDE RECORDS SUMMARY | 2025-03-25 11:51 | XMS_ITS | Encounter Summary ---
Author Organization [facility] Address [address] [place] [address] Care Team Providers Care Librarian Special Library Name Role Phone Keli Dickinson MD Primary Care Provider [phone] Encounter Details Date Type Department Care Team (Late st Contact Info) Description 02/23/2025 Lab Requisition [facility] - Main Lab [address] [place] [address] Keli Dickinson MD [address] [place] [address] Urgency of urination; Urinary tract [...] (ABNORMAL) Culture urine (02/21/2025 10:30 PM EDT) [facility] Signature Culture, Urine >100,000 CFU/mL Proteus mirabilis(A ) EMMY 02/25/2025 10:20 AM EDT [facility] Comment: Edited result: Previously reported as Proteus species on 02/24/2025 at 1034 EDT. Urine Urine specimen from urethra / Unknown Non-blood Collection / Unknown 02/21/2025 10:30 PM EDT 02/23/2025 11:46 AM EDT Narrative [facility] - 02/25/2025 10:20 AM EDT [...] MICROBIOLOGY - GENERAL ORDER BOBBY Final Result [facility] [address] [place] [address], [place] [phone] * (ABNORMAL) Urinalysis with reflex microscopic and culture (02/21/2025 10:30 PM EDT) Specific [place] Urine 1.029 1.003 - 1.030 LAB URINALYSIS - AUTOMATED METHOD 02/23/2025 11:[address] [facility] pH, Urine >=9.0(A) 5.0 - 8.0 pH LAB URINALYSIS - AUTOMATED METHOD 02/23/2025 11:[address] [facility] Leukocytes, Urine Large(A) Negative LAB URINALYSIS - AUTOMATED METHOD 02/23/2025 11:[address] [facility] Nitrite, Urine Positive(A) Negative LAB URINALYSIS - AUTOMATED METHOD 02/23/2025 11:[address] [facility] Protein, Urine >=1000(A) <=Trace mg/dL LAB URINALYSIS - AUTOMATED METHOD 02/23/2025 11:[address] [facility] Glucose, Urine 250(A) Negative mg/dL LAB URINALYSIS - AUTOMATED METHOD 02/23/2025 11:[address] [facility] Ketones, Urine Negative Negative mg/dL LAB URINALYSIS - AUTOMATED METHOD 02/23/2025 11:[address] [facility] Urobilinogen , Urine 1.0 0.2 - 1.0 mg/dL LAB URINALYSIS - AUTOMATED METHOD 02/23/2025 11:[address] [facility] Bilirubin, Urine Negative Negative LAB URINALYSIS - AUTOMATED METHOD 02/23/2025 11:[address] [facility] Blood, Urine Negative Negative LAB URINALYSIS - AUTOMATED METHOD 02/23/2025 11:[address] [facility] RBC, Urine 4.0 0 - 4 /HPF LAB URINALYSIS - AUTOMATED METHOD 02/23/2025 11:[address] [facility] WBC, Urine 13.8(H) 0 - 4 /HPF LAB URINALYSIS - AUTOMATED METHOD 02/23/2025 11:46 AM EDT [facility] Squamous Epithelial, Urine >100(H) 0 - 60 /LPF LAB URINALYSIS - AUTOMATED METHOD 02/23/2025 11:46 AM EDT [facility] Crystals, Urine HEAVY TRIPLE PHOS /LPF LAB URINALYSIS - AUTOMATED METHOD 02/23/2025 11:46 AM EDT [facility] Bacteria, Urine Many(A) Negative /HPF LAB URINALYSIS - AUTOMATED METHOD 02/23/2025 11:46 AM EDT [facility] Hyaline Casts, Urine 15.0(H) 0 - 3 /LPF LAB URINALYSIS - AUTOMATED METHOD 02/23/2025 11:46 AM EDT [facility] Urine Urine specimen from urethra / Unknown Non-blood Collection / Unknown 02/21/2025 10:30 PM EDT 02/23/2025 11:14 AM EDT us Keli Dickinson MD LAB URINE ORDERABLES Final Resul t Performing Organization Address City/[facility]/ZIP Co de Phone Number [facility] [address] [place] [address], [place] [phone] * Hawkins urine culture tube (02/21/2025 10:30 PM EDT) Extra Tube Hold for add-ons. 02/23/2025 1:02 PM EDT [facility] Comment:Auto resulted. 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
--- OUTSIDE RECORDS SUMMARY | 2025-03-25 11:51 | XMS_ITS | Data Portability ---
Author Organization [place] - Formerly [facility], later [facility], [facility] Address [address] [place] [address] Care Team Providers Care Cpo Name Role Phone PHILIPP OVIEDO Primary Care Provider [facility] OTHER [phone] Assessment Encounter Date Assessment Date Assessment LastModified by Organization Details LastModified Time 11/30/2018 11/30/2018 Overview/History : 83-year-old female, who is new to [facility], with a past medical history includes [...] I have accessed patient records on the [employer]. This information was pertinent in my medical decision making today. Time On Scene with Patient: 00:29:06 [email or web address] Not available 11/30/2018 20:42:40 08/09/2020 08/09/2020 Overview/History: This is an 84-year-old female that is known to [facility] but new to this provider. [facility] were contacted today as the patient [...] did discuss with the [facility]'s nurse [facility] to evaluate her, no indication for IV fluids at this time. I also discussed that [facility] not [facility] and that [...] after care of this patient according [facility]. Lab Results BMP [...] calcium, serum or plasma 2019 020 [facility] [address], [place], [address], 0 16:03:38 Referral None recorded. Procedures None recorded. Surgeries None recorded. Imaging None recorded. Medication Orders diclofenac 1 % topical gel 2019 020 INTERFACE [id number], [address] [place], [address], 0 16:10:01 Patient TargetsNo targets recorded. Patient Instructions Encounter Date Encounter Id Patient Instructions Last Modified By Organization Details Last Modified Time 11/30/2018 [id number] No evidence of a ny objects in your ear. Follow up with your ENT/PCP as needed. Thank you for your visit with [facility] today. We cannot always find the exact [...] in your condition between 8am-10pm, please call [facility] at [phone] to help navigate your care. Not available 11/30/2018 19:46:27 08/09/2020 [id number] WE CAME TO SEE Y [facility]U TODAY FOR CONCERNS OF ELEVATED BLOOD SUGAR, YOUR NURSE STEWRAT INDICATED TO ME ON THE PHONE THAT [...] ROOM. [facility] you [facility]. We cannot always find the [...] in your condition between 8am-10pm, please call [facility] at [phone] to help navigate your care. [email or web address] Not available 08/09/2020 16:09:54 Reason for Referral None Reported. Results Created Date Observation Date Name Description Value Unit Range Abnormal Flag Note LastModifiedBy Organization Detail LastModifiedTime 08/09/2008/09/2020 BMP + ioniz ed calci um, serum or plasm a glu 387 mg/dL 70-105 Not Available [address] [place], [address], 08/09/2020 16:03:38 08/09/20 20 08/09/2020 BMP + ioniz ed calci um, serum or plasm a BUN 36 mg/dL 8-26 Not Available [facility] [address] [place], [address], 08/09/2020 16:03:38 08/09/20 20 08/09/2020 BMP + ioniz ed calci um, serum or plasm a crea 1.0 mg/dL 0.6-1. 3 Not Available [facility] [address] [place], [address], 08/09/2020 16:03:38 08/09/20 20 08/09/2020 BMP + ioniz ed calci um, serum or plasm a Na 131 mmol/ L 138-14 6 Not Available [facility] [address] [place], [address], 08/09/2020 16:03:38 08/09/20 20 08/09/2020 BMP + ioniz ed calci um, serum or plasm a K 4.9 mmol/ L 3.5-4. 9 Not Available [address], [address], 08/09/2020 16:03:38 08/09/20 20 08/09/2020 BMP + ioniz ed calci um, serum or plasm a cL 95 mmol/ L 98-109 Not Available [address], [address], 08/09/2020 16:03:38 08/09/20 20 08/09/2020 BMP + ioniz ed calci um, serum or plasm a TCO2 21 mmol/ L 24- Not Available [address], [address], 08/09/2020 16:03:38 08/09/20 20 08/09/2020 BMP + ioniz ed calci um, serum or plasm a angap 20 mmol/ L 10-20 Not Available [address], [address], 08/09/2020 16:03:38 08/09/20 20 08/09/2020 BMP + ioniz ed calci um, serum or plasm a ica 1.21 mmol/ L 1.12-1 .32 Not Available [address], [address], 08/09/2020 16:03:38 08/09/20 20 08/09/2020 BMP + ioniz ed calci um, serum or plasm a HCT 40 %pcv 37-47 Not Available [address], [address], 08/09/2020 16:03:38 08/09/20 20 08/09/2020 BMP + ioniz ed calci um, serum or plasm a Hb 13.6 g/dL 12-17 Not Available [address], [address], 08/09/2020 16:03:38 Result Notes None recorded. Procedures Surgical History Date Name Laterality Status Provider Name and Address Organization Details Recorded Time 08/09/20 20 Venipuncture - DH completed DERRELL SANTANA NP [address], [place], [address], [place] [facility] 08/09/2020 18:34:12 Imaging Results None recorded. [...] Not Available Not Avai lable Fluad Quad 6518-4436(6 5yr up)(PF) 60 mcg (15 mcg x [...] Smoker DOMENICO JOHN, KAELYN [address], [place], [address], [place] [facility] 11/30/2018 18:10:06 Do You Have An Advance Directive? Yes Information not available 11/30/2018 Within The Past 12 Months, Has It Happened That The Food You Bought Just Didn't Last And You Didn't Have Money To Get More. Normal [facility] Information not available 11/30/2018 Within The Past 12 Months, Have You Worried That Your Food Would Run Out Before You Got Money To Buy More. No: Trouble Affording Healthy Foods [facility] – Information not available 11/30/2018 Fall Risk: Do You Feel Unsteady When Standing Or Walking? No [facility] – Information not available 11/30/2018 Marital Status [facility] – Information not available 11/30/2018 What Was The Date Of Your Most Recent Tobacco Screening? 11/30/2018 Information not available 06/09/2019 How Much Tobacco Do You Smoke? 1 PPW [facility] – Information not available 11/30/2018 How Many Years Have You Smoked Tobacco? 15 [facility] – Information not available 11/30/2018 Sex: Unknown Functional Status None recorded. Mental Status None recorded. Family History Relationship Description Onset Age of this Age Resolved Age Notes LastModified by Organization Details LastModified Time Mother Coronary arterioscler osis [email or web address] Not available 11/30 18:09:56 Medical History Condition Response Coronary Artery Disease N COPD N Depression N Cancer N Stroke N High Cholesterol Y Kidney Disease N Diabetes Y Asthma N Pulmonary Embolism N Hypertension Y Gynecological HistoryNo gynecological history recorded. Obstetrics History GPAL:G 0 P 0 0 0 0 Past Encounters Encounter ID Performer Location Encounter Start Date Encounter Closed Date Diagnosis/Indication Diagnosis SNOMED-CT Code Diagnosis ICD10 Code Diagnosis Note [id number] DOMENICO JOHN NP [facility] [address] [place] [address] 11/30/2018 17:52:50 12/01/2018 16:36:34 Foreign body in ear 98389159 T16.1XXA [id number] DERRELL SANTANA [facility] [address] [facility] [place] [address] 08/09/2020 15:21:51 08/10/2020 14:27:21 Hyperglycemia 91666327 R73.9 Right side sciatica 3202 359036 89380 M54.31 Health Concerns Section Related Observation LastModified by Organization Detai ls LastModified Time None Recorded Concern Status LastModified by Organization Details LastModified Time None Recorded Advance Directives Directive Y: Payers Insurance Date Sequence Insurance Name Policy Number Policy Genao Covered Member ID Genao Member ID Guarantor Name 11/30/2018 1 *SELF PAY* Lisa Crossyuli [id number] Lisa Mg 09/06/2020 2 [facility] (MEDICARE SUPPLEMENT) Lisa Trianadelroy [id number] Lisa Mg 08/09/2020 1 MEDIC[place] [facility] Lisa Torrez Mg [id number] Lisa Mg 09/06/2020 2 UNSPECIFIED REMIT PAYOR Lisa Mg 08/10/2020 1 [place] [facility] Lisa Torrez Mg [id number] Lisa Mg Notes Date Note Type Note Provider Name and Address Organization Details Recorded Time 11/30/2018 text/html 83-year-old female, who is new to [facility] was evaluated for possibility of foreign body in the right ear. The patient is hard of hearing and wears hearing aids to both years. While cleaning her hearing aids earlier she felt as if the silicone earpiece became embedded in her ear canal. She denies any other complaints. DOMENICO JOHN NP [address] [place], [place] [address], [place], [address], [place] [facility] 12/08/2018 19:26:11 08/09/2020 text/html This is an 84-year-old female that is known to [facility] but new to this provider. She has a medical history significant for diabetes, hypertension and hyperlipidemia. The showcase maker from her PCP office had contacted [facility] because the patient had called in [...] both the nurse and the patient that [facility] does not carry insulin nor do we [...] cleaned out recently. DERRELL SANTANA, KAELYN [address] [facility], [place], [address], [place] [facility] 08/09/2020 21:29:50 OBGyn Episode No OBEpisode recorded.
--- OUTSIDE RECORDS SUMMARY | 2025-03-25 11:51 | XMS_ITS | Continuity of Care Document ---
Author Organization [facility] Nik lt Address [address] [place] [address]- Care Team Providers Care Construction Carpenters Helper Name Role Phone Janes Foster MD Primary Care Physician [phone] Encounter [facility] Date(s): 02/20/25 - 03/22/25 [facility] Adult [address] [place] [address]- Encounter Type: Triage Allergies, Adverse Reactions, Alerts [...] Vaccine (oldterm) 4 08/03/09 Given SARS-CoV-2 mRNA (gixlxlk-hzvi-wsvnd) vax 5 07/31/24 Recorded SARS-CoV-2 mRNA (gyvdhkz-ycdw-ualvp) vax 04/03/22 Recorded influenza virus vaccine, inactivated [...] vaccine, inactivated 11 09/09/06 G iven SARS-CoV-2(COVID-19)mRNA-LNP vac(wjg453) 07/30/24 Recorded RSV vaccine preF3, recombinant 12/19/23 Recorded zoster vaccine, inactivated 07/25/23 Recorded zoster vaccine, inactivated 05/23/23 Recorded pneumococcal 20-valent conjugate vaccine 05/22/23 Given OHAI-LbJ-7qRBP 12y+ bivalent booster vax 09/16/22 Recorded SARS-CoV-2 [...] Pneumococcal Vaccine (oldterm) 11/16/04 Given 1Result Comment: [facility] 2Result Comment: local pharmacy 3Admin Note[facility] [place] 4Admin Note: given by simone doc by jose 5Result Comment: [facility] 6[facility] 7Admin Note: done at [facility] 8Admin Note: [facility] 9Admin Note: [facility] 10Admin Note: VIS GIVEN 11Admin Note: GIVEN IN [facility] 12[facility] Comment[facility] vaccine 13Admin Note: [facility] 14Admin Note: [facility] VIS 9723-1157 given 15Admin Note: historical data Medications Accu-Chek [...] USE DIRECTED DX BREAST CANCER C50.919 FAX [phone], 12/17/16 10:11:47 AM EST, Compound Start Date: 12/17/16 Status: Ordered Quantity: 1.0 Unit: each Repeat number: 1 calcium (as carbonate) 500 mg oral tablet, chewable 1 tablet = 500 mg, Chew, 2 times a day, # 12 tablet, 0 Refills, Maintenance, 03/17/25 12:05:00 PM EDT, Chew Tablet, Partial fill upon patient request if the prescription is for a schedule II opioid drug. Start Date: 03/17/25 Status: Ordered Quantity: 12.0 Unit: tablet Repeat number: 1 Diabetic Shoes Diabetic Shoes, [...] Quantity: 6.0 Unit: each Repeat number: 4 Imodium A-D 2 mg oral tablet 2 mg, 1, tablet, By Mouth, Every 4 hours, PRN, # 60 tablet, Refills 0, Maintenance, for loose stool, 06/15/24 2:24:00 PM EDT, Partial fill upon patient request if the prescription is for a schedule IIopioid drug. Start Date: 06/15/24 Status: Ordered Quantity: 60.0 Unit: tablet Repeat number: 1 Lantus Solostar Pen 100 units/mL subcutaneous solution = 20 units, Subcutaneous Injection, Daily, increase 2 units every 3 days until FBS < 130 per PCPmax dose 50 units daily, # 15 mL, 1 Refills, Maintenance, 10/10/24 4:10:00 PM EST, [facility],165, cm, 06/15/24 13:43:00 EDT, Height Start Date: 10/10/24 Status: Ordered Quantity: 15.0 Unit: mL Repeat number: 1 levothyroxine 0.112 mg oral tablet 1 tablet, By Mouth, Daily, # 90 tablet, 3 Refills, Maintenance, 01/11/25 2:57:00 PM EST, [facility], 165, cm, 06/15/24 13:43:00 EDT, Height Start Date: 01/11/25 Status: Ordered Quantity: 90.0 Unit: tablet Repeat number: 1 MASTECTOMY BRA MASTECTOMY BRA, See Instructions, # 3 each, Refills 1, Tot. Refills 1, Maintenance, USE DIRECTEDDX BREAST CA C50.919 FAX [phone], 12/17/16 10:13:30 AM EST, Compound Start Date: [...] Quantity: 283.0 Unit: g Repeat number: 1 Misc Durable Medical Equipment MASTECTOMY BRA, See Instructions, # 3 each, Refills 0, Tot. Refills 0, Maintenance, USE DIRECTEDDX BREAST CANCER, 09/17/16 3:02:49 PM EDT, Compound Start Date: 09/17/16 Status: Ordered Quantity: 3.0 Unit: each Repeat number: 1 NovoLOG FlexPen 100 units/mL injectable solution See Instructions, INJECT SUBCUTANEOUSLY 3 TIMES A DAY WITH MEALS PER SLIDING SCALE: IF BLOOD SUGAR 151-200 2units, 201-250 4 units, 251-300 6 units, 301-350 8 units, 351-400 10 units & CALL PCP OFFICE, # 45 Unknown, 5 Refills, Maintenance, 09/19/24 8:31:00 AM EST, [facility] STORE [facility], 165, cm, 06/15/24 13:43:00 EDT, Height Start Date: 09/19/24 Status: Ordered Quantity: 45.0 Unit: Unknown Repeat number: 1 Pen [place], 31 G x 5 mm BD Ultra [...] 3 Refills, Maintenance, 04/15/24 8:26:00 AM EDT, [facility], 165, cm, 11/25/23 [...] 12:00:00 PM EDT, Route to Pharmacy Electronically, [facility], 165, cm, 05/20/23 [...] Quantity: 60.0 Unit: capsule Repeat number: 1 Problem List Condition Confirmation [...] Name: Janes Foster MD Position: [facility] Physician - Primary Care Member Role: PCP Address: [address] [place] [address]- Telecom: Name: Zamzam Alejandro RN Position: [facility] RN Member Role: Primary Care Nurse Name: Sheeba (Bayflor) Stephanie Position: [facility] cellophane casting machine repairer Member Role: Yarn Comber Name: Juan Manuel Hernandez Position: [facility] Outreach Member Role: Lifetime Consulting Physician Name: Ena Posey RN Position: [facility] RN Member Role: Primary Care Nurse Care Team Related Persons Name: YUNIOR JOHNSON Name: RAFAEL JOHNSON Name: RE, FUSED Insurance Providers Guarantor name: ARGENIS JOHNSON Health Plan Information #: 1 Payer: MEDICARE PART B OUTPT Member Number: NA Policy Number: NA Group Number: NA Health Plan Information #: 2 Payer: [facility] Member Number: NA Policy Number: NA Group Number: NA
--- OUTSIDE RECORDS SUMMARY | 2025-03-25 11:51 | XMS_ITS | Encounter Summary ---
Author Organization [facility] Address [address] [place] [address] Care Team Providers Care Senior Php Software Developer Name Role Phone Keli Dickinson MD Primary Care Provider [phone] Encounter Details Date Type Department Care Team (Late st Contact Info) Description 01/26/2025 Lab Requisition [facility] [address] [place] [address] Keli Dickinson MD [address] [place] [address] Urinary tract infection, site not [...] reflex microscopic (01/25/2025 11:15 PM EDT) Specific Carver Urine 1.037(H) 1.003 - 1.030 LAB URINALYSIS - AUTOMATED METHOD 01/26/2025 11:03 AM EDT [facility] pH, Urine 5.5 5.0 - 8.0 pH LAB URINALYSIS - AUTOMATED METHOD 01/26/2025 11:03 AM [facility] Leukocytes, Urine Moderate(A) Negative LAB URINALYSIS - AUTOMATED METHOD 01/26/2025 11:03 AM [facility] Nitrite, Urine Negative Negative LAB URINALYSIS - AUTOMATED METHOD 01/26/2025 11:03 AM [facility] Protein, Urine 30(A) <=Trace mg/dL LAB URINALYSIS - AUTOMATED METHOD 01/26/2025 11:03 AM [facility] Glucose, Urine >=1000(A) Negative mg/dL LAB URINALYSIS - AUTOMATED METHOD 01/26/2025 11:03 AM [facility] Ketones, Urine Trace(A) Negative mg/dL LAB URINALYSIS - AUTOMATED METHOD 01/26/2025 11:03 AM [facility] Urobilinogen , Urine 0.2 0.2 - 1.0 mg/dL LAB URINALYSIS - AUTOMATED METHOD 01/26/2025 11:03 AM [facility] Bilirubin, Urine Negative Negative LAB URINALYSIS - AUTOMATED METHOD 01/26/2025 11:03 AM [facility] Blood, Urine Moderate(A) Negative LAB URINALYSIS - AUTOMATED METHOD 01/26/2025 11:03 AM [facility] RBC, Urine 10.0(H) 0 - 4 /HPF LAB URINALYSIS - AUTOMATED METHOD 01/26/2025 11:03 AM [facility] WBC, Urine 1,135.8(H) 0 - 4 /HPF LAB URINALYSIS - AUTOMATED METHOD 01/26/2025 11:03 AM [facility] Squamous Epithelial, Urine >100(H) 0 - 60 /LPF LAB URINALYSIS - AUTOMATED METHOD 01/26/2025 11:03 AM [facility] Bacteria, Urine Few(A) Negative /HPF LAB URINALYSIS - AUTOMATED METHOD 01/26/2025 11:03 AM EDT [facility] Hyaline Casts, Urine 3.0 0 - 3 /LPF LAB URINALYSIS - AUTOMATED METHOD 01/26/2025 11:03 AM EDT [facility] Yeast, Urine Present(A) None /HPF LAB URINALYSIS - AUTOMATED METHOD 01/26/2025 11:03 AM EDT [facility] Urine Urinary bladder structure / Unknown Non-blood Collection / Unknown 01/25/2025 11:15 PM EDT 01/26/2025 9:48 AM EDT us Keli Dickinson MD LAB URINE ORDERABLES Final Resul t [facility] [address] [place] [address], * (ABNORMAL) Culture urine (01/25/2025 11:15 PM EDT) Culture, Urine 10,000-49,000 CFU/mL Klebsiella pneumoniae(A) EMMY 02/01/2025 7:42 AM EDT [facility] Comment: This is an edited result. Previous organism was Gram negative bacilli on 01/30/2025 at 1329 EDT. Culture, Urine 10,000-49,000 CFU/mL Vancomycin resistant Enterococcus faecium(A) EMMY 02/01/2025 7:42 AM EDT [facility] Comment: The organism value for this result has been updated. These results have been appended to the previously preliminary verified report. Edited result: Previously reported as Enterococcus species on 01/28/2025 at 1125 EDT. Culture, Urine 10,000-49,000 CFU/mL Nelia albicans/dave iensis(A) EMMY 02/01/2025 7:42 AM EDT [facility] Comment: The organism value [...] MICROBIOLOGY - GENERAL ORDER BOBBY Final Result 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
--- OUTSIDE RECORDS SUMMARY | 2025-03-25 11:51 | XMS_ITS ---
Author Organization [facility] Address [address] [place] [address] Care Team Providers Care Local Operator Name Role Phone Janes Foster MD Primary Care Provider Fernando Wall Unavailable [phone] REASON FOR VISIT cx 10/18 Encounters Encounter Location Date Provider Diagnosis [address] [address] 10/17/2024 Fernando Lim Plan Of Treatment No Information Progress Notes * TIFFANYYuli Lisa ADOB:[birth year] (89 yo F)Acc No.[id number]:10/17/2024 Patient:?Lisa HOLLIDAY :1935???Age:88 Y???Sex:Female Address[address] [place], [address] * true * Date:? Generated for Printi jesus manuel/Jonnie/eTransmitting on:?03/25/2025 11:51 AM EDT
--- OUTSIDE RECORDS SUMMARY | 2025-03-25 11:51 | XMS_ITS ---
Author Organization [facility] Address [address] [place] [address] Care Team Providers Care Orthopedic Dentist Name Role Phone Kristin MAGALLANES, Janes Primary Care Provider Fernando Wall Unavailable [phone] Encounters Encounter Location Date Provider Diagnosis [facility] [address] [place] [address] 10/18/2024 Fernando Lim Plan Of Treatment No Information Progress Notes * Lisa HOLLIDAY ADOB:[birth year] (89 yo F)Acc No.[id number]:10/18/2024 Progress Note Patient:?Lisa HOLLIDAY Provider:?Fernando Lim DPM :1935???Age:88 Y???Sex:Female D ate:10/18/2024 [address] Pcp:Janes Foster MD Subjective: * Chief Complaints: [...] Lim DPM Date:?2023 Generated for Vii ng/Fabarg/eTransmitting on:?03/25/2025 11:50 AM EDT
--- OUTSIDE RECORDS SUMMARY | 2025-03-25 11:51 | XMS_ITS | Encounter Summary ---
Author Organization [facility] Address [address] [place] [address] Care Team Providers Care Physics Department Chair Name Role Phone Keli Dickinson MD Primary Care Provider [phone] Encounter Details Date Type Department Care Team (Latest Contact Info) Description 01/18/2025 Lab Requisition [facility] - Main Lab [address] [place] [address] Keli Dickinson MD [address] [place] [address] Type 2 diabetes mellitus without [...] EST Type 2 diabetes mellitus without complications ([facility]/HCC) Essential (primary) hypertension Hypo-osmolality and hyponatremia BASIC METABOLIC PANEL Routine 01/18/2025 9:14 AM EST Type 2 diabetes mellitus without complications (CMS/HCC) Essential (primary) hypertension Hypo-osmolality and hyponatremia documented in this encounter Results * (ABNORMAL) Basic metabolic panel (01/18/2025 9:14 AM EST) Sodium 137 133 - 145 mmol/L LAB CHEMISTRY METHOD 01/18/2025 2:47 PM EST [facility] Potassium 3.7 3.5 - 5.5 mmol/L LAB CHEMISTRY METHOD 01/18/2025 2:[address] [facility] Chloride 105 96 - 110 mmol/L LAB CHEMISTRY METHOD 01/18/2025 2:[address] [facility] CO2 22 21 - 32 mmol/L LAB CHEMISTRY METHOD 01/18/2025 2:[address] [facility] Anion Gap 10 3 - 11 LAB CHEMISTRY METHOD 01/18/2025 2:[address] [facility] Glucose 257(H) 70 - 100 mg/dL LAB CHEMISTRY METHOD 01/18/2025 2:[address] [facility] BUN 24 5 - 25 mg/dL LAB CHEMISTRY METHOD 01/18/2025 2:[address] [facility] Creatinine 0.99 0.50 - 1.10 mg/dL LAB CHEMISTRY METHOD 01/18/2025 2:[address] [facility] eGFR 55(L) >=60 mL/min/1. 73m2 LAB CHEMISTRY METHOD 01/18/2025 2:[address] [facility] Comment:Calculation based on the??Chronic Kidney Disease Epidemiology Collaboration (CKD-EPI) equation refit??without adjustment for race. BUN/Creatinine Ratio 24.2 LAB CHEMISTRY METHOD 01/18/2025 2:[address] [facility] Calcium 8.6 8.5 - 10.5 mg/dL LAB CHEMISTRY METHOD 01/18/2025 2:[address] [facility] Blood Venous blood specimen / Unknown Venipuncture / Unknown 01/18/2025 9:14 AM EST 01/18/2025 10:13 AM EST us Keli Dickinson MD LAB BLOOD ORDERABLES Final Resul t [facility] [address] [place] [address], * (ABNORMAL) Complete blood count (01/18/2025 9:14 AM EST) [facility] WBC 7.5 4.8 - 10.8 K/mcL LAB HEMETOLOGY METHOD 01/18/2025 11:[address] [facility] RBC 3.90 3.80 - 4.80 M/mcL LAB HEMETOLOGY METHOD 01/18/2025 11:[address] [facility] Hemoglobin 9.7(L) 11.5 - 16.0 g/dL LAB HEMETOLOGY METHOD 01/18/2025 11:[address] [facility] Hematocrit 31.3(L) 35.0 - 47.0 % LAB HEMETOLOGY METHOD 01/18/2025 11:[address] [facility] MCV 80.3 79.0 - 98.0 FL LAB HEMETOLOGY METHOD 01/18/2025 11:[address] [facility] MCH 24.9(L) 27.0 - 32.0 pcg LAB HEMETOLOGY METHOD 01/18/2025 11:[address] [facility] MCHC 31.0(L) 32.0 - 37.0 g/dL LAB HEMETOLOGY METHOD 01/18/2025 11:[address] [facility] RDW 15.1(H) 11.0 - 15.0 % LAB HEMETOLOGY METHOD 01/18/2025 11:[address] [facility] Platelets 229 130 - 400 K/mcL LAB HEMETOLOGY METHOD 01/18/2025 11:[address] [facility] MPV 11.6(H) 7.0 - 11.0 FL LAB HEMETOLOGY METHOD 01/18/2025 11:[address] [facility] NRBC 0.0 <1.0 % LAB HEMETOLOGY METHOD 01/18/2025 11:[address] [facility] NRBC Absolute 0.00 <0.10 K/mcL LAB HEMETOLOGY METHOD 01/18/2025 11:33 AM EST [facility] Blood Venous blood specimen / Unknown Venipuncture / Unknown 01/18/2025 9:14 AM EST 01/18/2025 10:13 AM EST us Keli Dickinson MD LAB BLOOD ORDERABLES Final Resul t [facility] [address] [place] [address], documented in this encounter Visit Diagnoses Diagnosis Type 2 diabetes mellitus without complications (CMS/HCC V24, CMS/HCC V28) Essential (primary) hypertension Unspecified essential hypertension Hypo-osmolality and hyponatremia documented in this encounter Additional Health Concerns 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
--- OUTSIDE RECORDS SUMMARY | 2025-03-25 11:52 | XMS_ITS | Encounter Summary ---
Author Organization [facility] Address [address] [place] [address] Care Team Providers Care Work Environment Safety Inspector Name Role Phone Keli Dickinson MD Primary Care Provider [phone] Encounter Details Date Type Department Care Team (Late st Contact Info) Description 11/08/2024 Lab Requisition [facility] - Main Lab [address] [place] [address] Marine Ryder MD [address] [place] [address] Encounter for other general examination Social History [...] and culture (11/08/2024 9:53 AM EST) Specific [place] Urine 1.024 1.003 - 1.030 LAB URINALYSIS - AUTOMATED METHOD 11/08/2024 10:31 AM EST [facility] pH, Urine 5.5 5.0 - 8.0 pH LAB URINALYSIS - AUTOMATED METHOD 11/08/2024 10:31 AM [facility] Leukocytes, Urine Negative Negative LAB URINALYSIS - AUTOMATED METHOD 11/08/2024 10:31 AM [facility] Nitrite, Urine Negative Negative LAB URINALYSIS - AUTOMATED METHOD 11/08/2024 10:31 AM [facility] Protein, Urine 30(A) <=Trace mg/dL LAB URINALYSIS - AUTOMATED METHOD 11/08/2024 10:31 AM [facility] Glucose, Urine >=1000(A) Negative mg/dL LAB URINALYSIS - AUTOMATED METHOD 11/08/2024 10:31 AM [facility] Ketones, Urine Trace(A) Negative mg/dL LAB URINALYSIS - AUTOMATED METHOD 11/08/2024 10:31 AM [facility] Urobilinogen , Urine 1.0 0.2 - 1.0 mg/dL LAB URINALYSIS - AUTOMATED METHOD 11/08/2024 10:31 AM [facility] Bilirubin, Urine Negative Negative LAB URINALYSIS - AUTOMATED METHOD 11/08/2024 10:31 AM [facility] Blood, Urine Negative Negative LAB URINALYSIS - AUTOMATED METHOD 11/08/2024 10:31 AM [facility] RBC, Urine 1.1 0 - 4 /HPF LAB URINALYSIS - AUTOMATED METHOD 11/08/2024 10:31 AM [facility] WBC, Urine 3.2 0 - 4 /HPF LAB URINALYSIS - AUTOMATED METHOD 11/08/2024 10:31 AM [facility] Squamous Epithelial, Urine 55 0 - 60 /LPF LAB URINALYSIS - AUTOMATED METHOD 11/08/2024 10:31 AM [facility] Bacteria, Urine Negative Negative /HPF LAB URINALYSIS - AUTOMATED METHOD 11/08/2024 10:31 AM [facility] Hyaline Casts, Urine 8.8(H) 0 - 3 /LPF LAB URINALYSIS - AUTOMATED METHOD 11/08/2024 10:31 AM EST [facility] Urine Urine specimen obtained by clean catch procedure / Unknown 11/08/2024 9:53 AM EST 11/08/2024 9:55 AM EST us Marine Ryder MD LAB URINE ORDERABLES Final Resu lt Performing Organization Address City/[facility]/ZIP Co de Phone Number [facility] [address] [place] [address], [place] [phone] * Hawkins urine culture tube (11/08/2024 9:53 AM EST) Extra Tube Hold for add-ons. 11/08/2024 11:02 AM EST [facility] Comment:Auto resulted. 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
--- OUTSIDE RECORDS SUMMARY | 2025-03-25 11:52 | XMS_ITS | Encounter Summary ---
Author Organization [facility] Address [address] [place] [address] Care Team Providers Care Telegraph Office Manager Name Role Phone Keli Dickinson MD Primary Care Provider [phone] Encounter Details Date Type Department Care Team (Late st Contact Info) Description 12/01/2024 Lab Requisition [facility] Lab [address] [place] [address] Keli Dickinson MD [address] [place] [address] Other osteonecrosis, unspecified femur (CMS/HCC [...] AM EST) WBC 7.1 4.8 - 10.8 K/[facility] LAB HEMETOLOGY METHOD 12/01/2024 12:[address] [facility] RBC 3.70(L) 3.80 - 4.80 /[facility] LAB HEMETOLOGY METHOD 12/01/2024 12:50 PM [facility] Hemoglobin 9.7(L) 11.5 - 16.0 g/dL LAB HEMETOLOGY METHOD 12/01/2024 12:50 PM [facility] Hematocrit 30.8(L) 35.0 - 47.0 % LAB HEMETOLOGY METHOD 12/01/2024 12:50 PM [facility] MCV 83.2 79.0 - 98.0 FL LAB HEMETOLOGY METHOD 12/01/2024 12:50 PM [facility] MCH 26.2(L) 27.0 - 32.0 pcg LAB HEMETOLOGY METHOD 12/01/2024 12:50 PM [facility] MCHC 31.5(L) 32.0 - 37.0 g/dL LAB HEMETOLOGY METHOD 12/01/2024 12:50 PM [facility] RDW 17.7(H) 11.0 - 15.0 % LAB HEMETOLOGY METHOD 12/01/2024 12:50 PM [facility] Platelets 462(H) 130 - 400 K/mcL LAB HEMETOLOGY METHOD 12/01/2024 12:50 PM [facility] MPV 10.3 7.0 - 11.0 FL LAB HEMETOLOGY METHOD 12/01/2024 12:50 PM [facility] NRBC 0.0 <1.0 % LAB HEMETOLOGY METHOD 12/01/2024 12:50 PM [facility] NRBC Absolute 0.00 <0.10 K/mcL LAB HEMETOLOGY METHOD 12/01/2024 12:50 PM [facility] Neutrophils Relative 68.7 % LAB HEMETOLOGY METHOD 12/01/2024 12:50 PM [facility] Lymphocytes Relative 20.0 % LAB HEMETOLOGY METHOD 12/01/2024 12:50 PM EST [facility] Monocytes Relative 8.4 % LAB HEMETOLOGY METHOD 12/01/2024 12:50 PM [facility] Eosinophils Relative 1.6 % LAB HEMETOLOGY METHOD 12/01/2024 12:50 PM [facility] Basophils Relative 0.9 % LAB HEMETOLOGY METHOD 12/01/2024 12:50 PM [facility] Immature Granulocytes Relative 0.4 % LAB HEMETOLOGY METHOD 12/01/2024 12:50 PM [facility] Neutrophils Absolute 4.85 1.50 - 7.00 K/mcL LAB HEMETOLOGY METHOD 12/01/2024 12:50 PM [facility] Lymphocytes Absolute 1.41 1.00 - 5.00 K/mcL LAB HEMETOLOGY METHOD 12/01/2024 12:50 PM [facility] Monocytes Absolute 0.59 0.20 - 1.00 K/mcL LAB HEMETOLOGY METHOD 12/01/2024 12:50 PM [facility] Eosinophils Absolute 0.11 0.00 - 0.50 K/mcL LAB HEMETOLOGY METHOD 12/01/2024 12:50 PM [facility] Basophils Absolute 0.06 0.00 - 0.20 K/mcL LAB HEMETOLOGY METHOD 12/01/2024 12:50 PM [facility] Immature Granulocytes Absolute 0.03 0.00 - 0.03 K/mcL LAB HEMETOLOGY METHOD 12/01/2024 12:50 PM [facility] Blood Venous blood specimen / Unknown Venipuncture / Unknown 12/01/2024 8:38 AM EST 12/01/2024 10:08 AM EST us Keli Dickinson MD LAB BLOOD ORDERABLES Final Resul t [facility] [address] [place] [address], documented in this encounter Visit Diagnoses Diagnosis Other osteonecrosis, unspecified femur (CMS/[facility] V24, CMS/[facility] V28) documented in this encounter Additional Health Concerns 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
--- OUTSIDE RECORDS SUMMARY | 2025-03-25 11:52 | XMS_ITS | Data Portability ---
Author Organization [place] [facility], Allergy Address [address] [address] Care Team Providers Care Engineer Soils Name Role Phone PHILIPP OVIEDO Primary Care [...] Recorded Time Impacted cerumen in right ear [id number] 06651 Active 2021 Impacted cerumen, right ear; Note: Date Diagnosed : 07/14/2022 1:28 PM (H61.21) Not Available [facility] 4 02:40:09 Sensorine ural hearing loss of bilateral ears 897946629 Active 2015 Sensorine ural hearing loss, bilateral ; Note: Date Diagnosed : 6 1:22 PM (H90.3) Not Available [facility] 4 02:40:08 Otitis media of left ear 02406930326 82866 Active 2019 Otitis media, unspecifi ed, left ear; Note: Date Diagnosed : 03/22/2020 9:49 AM (H66.92) Not Available [facility] 4 02:40:08 Impacted cerumen of bilateral ears [id number] 06434 Active 2015 Impacted cerumen, bilateral ; Note: Date Diagnosed : 6 12:21 PM (H61.23) Not Available [facility] 4 02:40:14 Impacted cerumen 88820395 Active 2013 Impacted cerumen; CMS Risk: low risk CMS Treatment : new problem (to examiner) : no additiona l workup planned Not Available [facility] 4 02:40:16 Otorrhea of left ear 09790389396 62494 Active 2019 Otorrhea, left ear; Note: Date Diagnosed : 04/23/2020 3:37 PM (H92.12) Not Available [facility] 4 02:40:13 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 Procedures Surgical History Date Name Laterality Status Provider Name and Address Organization Details Recorded Time 4 Cerumen removal without microscope bilat completed CATHERINE DESAI PA-C [address] [place] [address], [id number] - [facility] 07/26/2024 11:54:29 Imaging Results None recorded. Procedure Notes None recorded. Medical Equipment None Reported. Medications Name Sig Start Date Stop Date Status Note LastModified by Organization Details LastModified Time nifedipin e ER 30 mg tablet,ex tended release 24 hr 03/21 completed Medicati on ID: [id number] Du ration Value: 90 Reason: () Brand Name: nifedipi ne Send Method: E-Prescr ibed Sub s Allowed: subs OK Speci al Instruct ion: TAKE 1 TABLET BY MOUTH EVERY DAY Medi [facility] nericNam e: nifedipi ne Not Available Not Available Not Available amoxicill in 500 mg capsule TAKE 4 CAPSULES BY MOUTH ONE HOUR PRIOR TO DENTAL PROCEDUR E active Not Available Not Available No t Available metformin 500 mg tablet 03/15 completed Medicati on ID: [id number] D uration Value: 90 Brand Name: metformi n Send Method: E-Prescr ibed Sub s Allowed: subs OK [facility]ic[facility] : metformi n Not Available Not Available Not Available lisinopri l 20 mg tablet active Not Available Not Available Not Available clonazepa m 0.5 mg tablet 04/23 completed Medicati on ID: [id number] D uration Value: 15 Reason: () Brand Name: clonazep am Send Method: E-Prescr ibed Sub s Allowed: subs OK Medic [facility] ericName : clonazep am Not Available Not Available Not Available Lantus U-100 Insulin 100 unit/mL subcutane ous solution 04/23 completed Medicati on ID: [id number] Du ration Value: 56 Reason: () Brand Name: Lantus U-100 Insulin Send Method: E-Prescr ibed Sub s Allowed: subs OK Speci al Instruct ion: INJECT 30 - 38 UNITS SUBCUTAN EOUSLY OR DIRECTED BY MD [facility] eric[facility] : Lantus U-100 Insulin Not Available Not Available Not Available levothyro xine 100 mcg tablet 03/15 completed Medicati on ID: [id number] D uration Value: 90 Brand Name: levothyr oxine Se nd Method: E-Prescr ibed Sub s Allowed: subs OK Medic [facility] ericName : levothyr oxine Not Available Not Available Not Available ofloxacin 0.3 % ear drops 03/15 completed Medicati on ID: [id number] D uration Value: 10 Brand Name: ofloxaci n Send Method: E-Prescr ibed Sub s Allowed: subs OK Medic [facility] ericName : ofloxaci n Not Available Not [...] 3 drop 04/23 completed Medicati on ID: [id number] D uration Value: 14 Prescri bed By Name: Clara perez MD Brand Name: tobramyc in-dexam ethasone Send Method: E-Prescr ibed Sub s Allowed: subs OK Speci al Instruct ion: apply to affected ear Medi cationGe nericNam e: tobramyc in-dexam ethasone Not Available Not Available Not Available neomycin- polymyxin -hydrocor t 3.5 mg-10,000 unit/mL-1 % ear drops,ester p 03/21 completed Medicati on ID: [id number] Du ration Value: 30 Reason: () Brand [...] topical gel 03/15 completed Medicati on ID: [id number] B rand Name: diclofen ac sodium S end Method: E-Prescr ibed Sub s Allowed: subs OK Medic [facility] ericName : diclofen ac sodium Not Available Not Available Not Available Arexvy (PF) 120 mcg/0.5 mL IM suspensio n active Medicati on ID: [id number] B rand Name: Audra (VELASQUEZ) Billy d Method: E-Prescr ibed Sub s Allowed: subs OK Medic [facility] ericName : Audra (PF) Not Available Not Available Not Available Vitals Date Recorded Body height Body mass index (BMI) Body weight Provider Name and Address Organization Details Last Updated DateTime 07/26/2024 157.48 cm 30.7 kg/m2 55743.52 g Donny Sarkar [place] - [facility] 07/26/2024 11:16:48 Social History None recorded. Functional Status None recorded. Mental Status None recorded. Family History Nothing Reported. Medical History No medical history recorded. Gynecological HistoryNo gynecological history recorded. Obstetrics History GPAL:G 0 P 0 0 0 0 Past Encounters Encounter ID Performer Location Encounter Start Date Encounter Closed Date Diagnosis/Indication Diagnosis SNOMED-CT Code Diagnosis ICD10 Code Diagnosis Note [id number] CATHERINE DESAI PA-C [facility] [address] [address] 07/26/2024 11:12:02 07/26/2024 11:56:27 Impacted cerumen of bilateral ears [id number] H61.23 Health Concerns Section Related Observation LastModified by Organization Detai ls LastModified Time None Recorded Concern Status LastModified by Organization Details LastModified Time None Recorded Advance Directives Directive None Recorded Payers Insurance Date Sequence Insurance Name Policy Number Policy Genao Covered Member ID Genao Member ID Guarantor Name 10/21/2024 1 [place]: [employer] Lisa Holliday [id number] Lisa Holliday 10/22/2024 2 [facility] - PLAN 1 (MEDICARE SUPPLEMENT) [id number] Lisa Holliday [id number] Lisa Holliday 07/26/2024 2 [facility] (MEDICAID HMO) [id number] Lisa Holliday [id number] Lisa Holliday Notes Date Note Type Note Provider Name and Address Organization Details Recorded Time 07/26/2024 text/html 88-year-old female presents for evaluation of the ears. She reports that her hearing is very poor despite her hearing aids. She notes it has been a very long time since she had an audiogram. She denies otalgia, otorrhea, and tinnitus. RUIZ CROW MD [address] [place] [address], [phone], [facility] - [facility] 07/26/2024 17:26:24 OBGyn Episode No OBEpisode recorded.
--- OUTSIDE RECORDS SUMMARY | 2025-03-25 11:52 | XMS_ITS | Encounter Summary ---
Author Organization [facility] Address [address] [place] [address] Care Team Providers Care Civilian Technician Name Role Phone Keli Dickinson MD Primary Care Provider [phone] Encounter Details Date Type Department Care Team (Late st Contact Info) Description 11/13/2024 Lab Requisition [facility] [address] [place] [address] Marine Ryder MD [address] [place] [id number] Encounter for other general examination Social History [...] AM EST) WBC 8.7 4.8 - 10.8 K/[facility] LAB HEMETOLOGY METHOD 11/13/2024 8:42 AM EST [facility] RBC 3.00(L) 3.80 - 4.80 M/[facility] LAB HEMETOLOGY METHOD 11/13/2024 8:42 AM EST [facility] Hemoglobin 7.7(L) 11.5 - 16.0 g/dL LAB HEMETOLOGY METHOD 11/13/2024 8:42 AM [facility] Hematocrit 25.4(L) 35.0 - 47.0 % LAB HEMETOLOGY METHOD 11/13/2024 8:42 AM [facility] MCV 83.8 79.0 - 98.0 FL LAB HEMETOLOGY METHOD 11/13/2024 8:42 AM [facility] MCH 25.4(L) 27.0 - 32.0 pcg LAB HEMETOLOGY METHOD 11/13/2024 8:42 AM [facility] MCHC 30.3(L) 32.0 - 37.0 g/dL LAB HEMETOLOGY METHOD 11/13/2024 8:42 AM [facility] RDW 20.0(H) 11.0 - 15.0 % LAB HEMETOLOGY METHOD 11/13/2024 8:42 AM [facility] Platelets 335 130 - 400 K/mcL LAB HEMETOLOGY METHOD 11/13/2024 8:42 AM [facility] MPV 10.7 7.0 - 11.0 FL LAB HEMETOLOGY METHOD 11/13/2024 8:42 AM [facility] NRBC 0.0 <1.0 % LAB HEMETOLOGY METHOD 11/13/2024 8:42 AM [facility] NRBC Absolute 0.00 <0.10 K/mcL LAB HEMETOLOGY METHOD 11/13/2024 8:42 AM [facility] Neutrophils Relative 70.3 % LAB HEMETOLOGY METHOD 11/13/2024 8:42 AM [facility] Lymphocytes Relative 16.4 % LAB HEMETOLOGY METHOD 11/13/2024 8:42 AM [facility] Monocytes Relative 10.4 % LAB HEMETOLOGY METHOD 11/13/2024 8:42 AM [facility] Eosinophils Relative 1.7 % LAB HEMETOLOGY METHOD 11/13/2024 8:42 AM EST [facility] Basophils Relative 0.6 % LAB HEMETOLOGY METHOD 11/13/2024 8:42 AM [facility] Immature Granulocytes Relative 0.6 % LAB HEMETOLOGY METHOD 11/13/2024 8:42 AM [facility] Neutrophils Absolute 6.14 1.50 - 7.00 K/mcL LAB HEMETOLOGY METHOD 11/13/2024 8:42 AM EST [facility] Lymphocytes Absolute 1.43 1.00 - 5.00 K/mcL LAB HEMETOLOGY METHOD 11/13/2024 8:42 AM [facility] Monocytes Absolute 0.91 0.20 - 1.00 K/mcL LAB HEMETOLOGY METHOD 11/13/2024 8:42 AM EST [facility] Eosinophils Absolute 0.15 0.00 - 0.50 K/mcL LAB HEMETOLOGY METHOD 11/13/2024 8:42 AM EST [facility] Basophils Absolute 0.05 0.00 - 0.20 K/mcL LAB HEMETOLOGY METHOD 11/13/2024 8:42 AM [facility] Immature Granulocytes Absolute 0.05(H) 0.00 - 0.03 K/mcL LAB HEMETOLOGY METHOD 11/13/2024 8:42 AM [facility] Blood Venous blood specimen / Unknown Venipuncture / Unknown 11/13/2024 5:46 AM EST 11/13/2024 7:38 AM EST us Marine Ryder MD LAB BLOOD ORDERABLES Final Resu lt [facility] [address] [place] [address], documented in this encounter Visit Diagnoses Diagnosis Encounter for other general examination documented in this encounter Additional Health Concerns Infection Onset Date Last Indicated Resolved Time Gastrointestinal Rule-Out 11/15/2024 11/15/2024 2:43 PM EST 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
--- OUTSIDE RECORDS SUMMARY | 2025-03-25 11:52 | XMS_ITS | Encounter Summary ---
Author Organization [facility] Address [address] [place] [address] Care Team Providers Care Surgery Nurse Name Role Phone Keli Dickinson MD Primary Care Provider [phone] Encounter Details Date Type Department Care Team (Late st Contact Info) Description 11/07/2024 Lab Requisition [facility] [address] [facility] [place] [address] Marine Ryder MD [address] [place] [address] Encounter for other general examination Social History [...] LAB CHEMISTRY METHOD 11/07/2024 11:24 AM EST [facility] Potassium 4.8 3.5 - 5.5 mmol/L LAB CHEMISTRY METHOD 11/07/2024 11:24 AM EST [facility] Chloride 97 96 - 110 mmol/L LAB CHEMISTRY METHOD 11/07/2024 11:24 AM EST [facility] CO2 29 21 - 32 mmol/L LAB CHEMISTRY METHOD 11/07/2024 11:24 AM EST [facility] Anion Gap 7 3 - 11 LAB CHEMISTRY METHOD 11/07/2024 11:[address] [facility] Glucose 199(H) 70 - 100 mg/dL LAB CHEMISTRY METHOD 11/07/2024 11:[address] [facility] BUN 22 5 - 25 mg/dL LAB CHEMISTRY METHOD 11/07/2024 11:[address] [facility] Creatinine 0.73 0.50 - 1.10 mg/dL LAB CHEMISTRY METHOD 11/07/2024 11:[address] [facility] eGFR 79 >=60 mL/min/1. 73m2 LAB CHEMISTRY METHOD 11/07/2024 11:[address] [facility] Comment:Calculation based on the??Chronic Kidney Disease Epidemiology Collaboration (CKD-EPI) equation refit??without adjustment for race. BUN/Creatinine Ratio 30.1 LAB CHEMISTRY METHOD 11/07/2024 11:[address] [facility] Calcium 8.2(L) 8.5 - 10.5 mg/dL LAB CHEMISTRY METHOD 11/07/2024 11:[address] 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
--- OUTSIDE RECORDS SUMMARY | 2025-03-25 11:52 | XMS_ITS | Encounter Summary ---
Author Organization [facility] Address [address] [place] [address] Care Team Providers Care Sales Department Clerk Name Role Phone Keli Dickinson MD Primary Care Provider [phone] Encounter Details Date Type Department Care Team (Late st Contact Info) Description 11/05/2024 Lab Requisition [facility] - Main Lab [address] [place] [address] Marine Ryder MD [address] [place] [address] Encounter for other general examination Social History [...] LAB HEMETOLOGY METHOD 11/05/2024 10:00 AM EST [facility] RBC 3.20(L) 3.80 - 4.80 M/mcL [...] ORDERABLES Final Resu lt Performing Organization Address [facility]/ZIP Co de Phone Number [facility] [address] [place] [address], * Magnesium (11/05/2024 5:12 AM EST) Magnesium 2.5 1.9 - 2.6 mg/dL LAB CHEMISTRY METHOD 11/05/2024 10:41 AM EST [facility] Blood Venous blood specimen / Unknown Venipuncture / Unknown 11/05/2024 5:12 AM EST 11/05/2024 8:55 AM EST Marine Ryder MD LAB BLOOD ORDERABLES Final Resu lt Performing Organization Address [facility]/ZIP Co de Phone Number [facility] [address] [place] [address], * (ABNORMAL) Comprehensive metabolic panel (11/05/2024 5:12 AM EST) Pathologist [facility] Sodium 132(L) 133 - 145 mmol/L LAB [...] ORDERABLES Final Resu lt [facility] [address] [place] [address], documented in this encounter Visit Diagnoses Diagnosis Encounter for other general examination documented in this encounter Additional Health Concerns Infection Onset Date Last Indicated Resolved Time Gastrointestinal Rule-Out 11/15/2024 11/15/2024 2:43 PM EST 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
--- OUTSIDE RECORDS SUMMARY | 2025-03-25 11:52 | XMS_ITS | Encounter Summary ---
Author Organization [facility] Address [address] [place] [address] Care Team Providers Care Subscription Crew Leader Name Role Phone Keli Dickinson MD Primary Care Provider [phone] Encounter Details Date Type Department Care Team (Latest Contact Info) Description 11/19/2024 Lab Requisition [facility] - Main Lab [address] [place] [address] Keli Dickinson MD [address] [place] [address] Type 2 diabetes mellitus without [...] EST Type 2 diabetes mellitus without complications ([facility]/HCC) Anemia, unspecified HEMOGLOBIN A1C Routine 11/19/2024 7:20 AM EST Type 2 diabetes mellitus without complications (CMS/HCC) Anemia, unspecified COMPREHENSIVE METABOLIC PANEL Routine 11/19/2024 7:20 AM EST Type 2 diabetes mellitus without complications ([facility]) Anemia, unspecified documented in this encounter Results * (ABNORMAL) Hemoglobin A1c (11/19/2024 7:20 AM EST) Hemoglobin A1C 6.8(H) <6.5 % LAB CHEMISTRY METHOD 11/21/2024 10:21 AM EST [facility] Mean Bld Glu Estim. 148 mg/dL LAB CHEMISTRY METHOD 11/21/2024 10:21 AM [facility] Blood Venous blood specimen / Unknown Venipuncture / Unknown 11/19/2024 7:20 AM EST 11/19/2024 11:06 AM EST Keli Dickinson MD LAB BLOOD ORDERABLES Final Resul t [facility] [address] [place] [address], [place] [phone] * (ABNORMAL) Comprehensive metabolic panel (11/19/2024 7:20 AM EST) Sodium 132(L) 133 - 145 mmol/L LAB CHEMISTRY METHOD 11/19/2024 11:58 AM [facility] Potassium 5.2 3.5 - 5.5 mmol/L LAB CHEMISTRY METHOD 11/19/2024 11:58 AM [facility] Chloride 101 96 - 110 mmol/L LAB CHEMISTRY METHOD 11/19/2024 11:58 AM [facility] CO2 26 21 - 32 mmol/L LAB CHEMISTRY METHOD 11/19/2024 11:58 AM [facility] Anion Gap 5 3 - 11 LAB CHEMISTRY METHOD 11/19/2024 11:58 AM [facility] Glucose 99 70 - 100 mg/dL LAB CHEMISTRY METHOD 11/19/2024 11:58 AM [facility] BUN 26(H) 5 - 25 mg/dL LAB CHEMISTRY METHOD 11/19/2024 11:58 AM [facility] Creatinine 0.85 0.50 - 1.10 mg/dL LAB CHEMISTRY METHOD 11/19/2024 11:58 AM [facility] eGFR 66 >=60 mL/min/1. 73m2 LAB CHEMISTRY METHOD 11/19/2024 11:58 AM [facility] Comment:Calculation based on the??Chronic Kidney Disease Epidemiology Collaboration (CKD-EPI) equation refit??without adjustment for race. BUN/Creatinine Ratio 30.6 LAB CHEMISTRY METHOD 11/19/2024 11:58 AM [facility] Calcium 8.2(L) 8.5 - 10.5 mg/dL LAB CHEMISTRY METHOD 11/19/2024 11:58 AM [facility] AST (SGOT) 15 10 - 42 unit/L LAB CHEMISTRY METHOD 11/19/2024 11:58 AM [facility] ALT (SGPT) 13 10 - 60 unit/L LAB CHEMISTRY METHOD 11/19/2024 11:58 AM [facility] Alkaline Phosphatase 105 42 - 121 unit/L LAB CHEMISTRY METHOD 11/19/2024 11:58 AM [facility] Total Protein 5.3(L) 6.0 - 8.0 g/dL LAB CHEMISTRY METHOD 11/19/2024 11:58 AM [facility] Albumin 2.2(L) 3.2 - 5.0 g/dL LAB CHEMISTRY METHOD 11/19/2024 11:58 AM [facility] Total Bilirubin 0.6 0.0 - 1.4 mg/dL LAB CHEMISTRY METHOD 11/19/2024 11:58 AM [facility] Blood Venous blood specimen / Unknown Venipuncture / Unknown 11/19/2024 7:20 AM EST 11/19/2024 11:06 AM EST us Keli Dickinson MD LAB BLOOD ORDERABLES Final Resul t [facility] [address] [place] [address], * (ABNORMAL) Complete blood count (11/19/2024 7:20 AM EST) WBC 6.9 4.8 - 10.8 K/mcL LAB HEMETOLOGY METHOD 11/19/2024 11:28 AM [facility] RBC 3.10(L) 3.80 - 4.80 M/mcL LAB HEMETOLOGY METHOD 11/19/2024 11:28 AM [facility] Hemoglobin 7.9(L) 11.5 - 16.0 g/dL LAB HEMETOLOGY METHOD 11/19/2024 11:28 AM [facility] Hematocrit 26.0(L) 35.0 - 47.0 % LAB HEMETOLOGY METHOD 11/19/2024 11:28 AM [facility] MCV 84.7 79.0 - 98.0 FL LAB HEMETOLOGY METHOD 11/19/2024 11:28 AM [facility] MCH 25.7(L) 27.0 - 32.0 pcg LAB HEMETOLOGY METHOD 11/19/2024 11:28 AM [facility] MCHC 30.4(L) 32.0 - 37.0 g/dL LAB HEMETOLOGY METHOD 11/19/2024 11:28 AM [facility] RDW 19.5(H) 11.0 - 15.0 % LAB HEMETOLOGY METHOD 11/19/2024 11:28 AM [facility] Platelets 415(H) 130 - 400 K/mcL LAB HEMETOLOGY METHOD 11/19/2024 11:28 AM [facility] MPV 10.3 7.0 - 11.0 FL LAB HEMETOLOGY METHOD 11/19/2024 11:28 AM [facility] NRBC 0.0 <1.0 % LAB HEMETOLOGY METHOD 11/19/2024 11:28 AM [facility] NRBC Absolute 0.00 <0.10 K/mcL LAB HEMETOLOGY METHOD 11/19/2024 11:28 AM EST [facility] Blood Venous blood specimen / Unknown Venipuncture / Unknown 11/19/2024 7:20 AM EST 11/19/2024 11:06 AM EST us Keli Dickinson MD LAB BLOOD ORDERABLES Final Resul t [facility] [address] [place] [address], documented in this encounter Visit Diagnoses Diagnosis Type 2 diabetes mellitus without complications (CMS/HCC V24, CMS/HCC V28) Anemia, unspecified documented in this encounter 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
--- OUTSIDE RECORDS SUMMARY | 2025-03-25 11:52 | XMS_ITS | Encounter Summary ---
Author Organization [facility] Address [address] [place] [address] Care Team Providers Care Can Labeler Name Role Phone Keli Dickinson MD Primary Care Provider [phone] Encounter Details Date Type Department Care Team (Late st Contact Info) Description 11/15/2024 Lab Requisition [facility] Lab [address] [place] [address] Marine Ryder MD [address] [place] [address] Encounter for other general examination Social History [...] LAB HEMETOLOGY METHOD 11/15/2024 10:33 AM EST [facility] RBC 3.20(L) 3.80 - 4.80 M/mcL LAB HEMETOLOGY METHOD 11/15/2024 10:33 AM EST [facility] Hemoglobin 8.1(L) 11.5 - 16.0 g/dL LAB HEMETOLOGY METHOD 11/15/2024 10:33 AM [facility] Hematocrit 26.4(L) 35.0 - 47.0 % LAB HEMETOLOGY METHOD 11/15/2024 10:33 AM [facility] LAB MCV 83.5 79.0 - 98.0 FL LAB HEMETOLOGY METHOD 11/15/2024 10:33 AM [facility] MCH 25.6(L) 27.0 - 32.0 pcg LAB HEMETOLOGY METHOD 11/15/2024 10:33 AM [facility] LAB MCHC 30.7(L) 32.0 - 37.0 g/dL LAB HEMETOLOGY METHOD 11/15/2024 10:33 AM [facility] RDW 20.1(H) 11.0 - 15.0 % LAB HEMETOLOGY METHOD 11/15/2024 10:33 AM [facility] Platelets 380 130 - 400 K/mcL LAB HEMETOLOGY METHOD 11/15/2024 10:33 AM [facility] MPV 10.6 7.0 - 11.0 FL LAB HEMETOLOGY METHOD 11/15/2024 10:33 AM [facility] NRBC 0.0 <1.0 % LAB HEMETOLOGY METHOD 11/15/2024 10:33 AM [facility] NRBC Absolute 0.00 <0.10 K/mcL LAB HEMETOLOGY METHOD 11/15/2024 10:33 AM [facility] LAB Blood Venous blood specimen / Unknown Venipuncture / Unknown 11/15/2024 4:57 AM EST 11/15/2024 9:39 AM EST us Marine Ryder MD LAB BLOOD ORDERABLES Final Resu lt [facility] [address] [place] [address], * (ABNORMAL) Basic metabolic panel (11/15/2024 4:57 AM EST) Sodium 135 133 - 145 mmol/L LAB CHEMISTRY METHOD 11/15/2024 10:55 AM [facility] Potassium 4.6 3.5 - 5.5 mmol/L LAB CHEMISTRY METHOD 11/15/2024 10:55 AM [facility] Chloride 104 96 - 110 mmol/L LAB CHEMISTRY METHOD 11/15/2024 10:55 AM [facility] CO2 25 21 - 32 mmol/L LAB CHEMISTRY METHOD 11/15/2024 10:55 AM [facility] Anion Gap 6 3 - 11 LAB CHEMISTRY METHOD 11/15/2024 10:55 AM [facility] Glucose 101(H) 70 - 100 mg/dL LAB CHEMISTRY METHOD 11/15/2024 10:55 AM [facility] BUN 31(H) 5 - 25 mg/dL LAB CHEMISTRY METHOD 11/15/2024 10:55 AM [facility] Creatinine 0.88 0.50 - 1.10 mg/dL LAB CHEMISTRY METHOD 11/15/2024 10:55 AM [facility] LAB eGFR 63 >=60 mL/min/1. 73m2 LAB CHEMISTRY METHOD 11/15/2024 10:55 AM [facility] LAB Comment:Calculation based on the??Chronic Kidney Disease Epidemiology Collaboration (CKD-EPI) equation refit??without adjustment for race. BUN/Creatinine Ratio 35.2 LAB CHEMISTRY METHOD 11/15/2024 10:55 AM [facility] Calcium 8.3(L) 8.5 - 10.5 mg/dL LAB CHEMISTRY METHOD 11/15/2024 10:55 AM [facility] Blood Venous blood specimen / Unknown Venipuncture / Unknown 11/15/2024 4:57 AM EST 11/15/2024 9:39 AM EST us Marine Ryder MD LAB BLOOD ORDERABLES Final [facility]u [facility] [address] [place] [address], documented in this encounter Visit Diagnoses Diagnosis Encounter for other general examination documented in this encounter Additional Health Concerns Infection Onset Date Last Indicated Resolved Time Gastrointestinal Rule-Out 11/15/2024 11/15/2024 2:43 PM EST 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
--- OUTSIDE RECORDS SUMMARY | 2025-03-25 11:52 | XMS_ITS | Encounter Summary ---
Author Organization [facility] Address [address] [place] [address] Care Team Providers Care Credit Resolution Representative Name Role Phone Keli Dickinson MD Primary Care Provider [phone] Encounter Details Date Type Department Care Team (Late st Contact Info) Description 11/11/2024 Lab Requisition [facility] - Main Lab [address] [place] [address] Marine Ryder MD [address] [place] [address] Encounter for other general examination Social History [...] AM EST) WBC 8.2 4.8 - 10.8 K/[facility] LAB HEMETOLOGY METHOD 11/11/2024 10:22 AM EST [facility] RBC 3.00(L) 3.80 - 4.80 M/[facility] LAB HEMETOLOGY METHOD 11/11/2024 10:22 AM [facility] LAB Hemoglobin 7.7(L) 11.5 - 16.0 g/dL LAB HEMETOLOGY METHOD 11/11/2024 10:22 AM [facility] LAB Hematocrit 25.3(L) 35.0 - 47.0 % LAB HEMETOLOGY METHOD 11/11/2024 10:22 AM [facility] LAB MCV 83.8 79.0 - 98.0 FL LAB HEMETOLOGY METHOD 11/11/2024 10:22 AM [facility] LAB MCH 25.5(L) 27.0 - 32.0 pcg LAB HEMETOLOGY METHOD 11/11/2024 10:22 AM [facility] LAB MCHC 30.4(L) 32.0 - 37.0 g/dL LAB HEMETOLOGY METHOD 11/11/2024 10:22 AM [facility] LAB RDW 19.6(H) 11.0 - 15.0 % LAB HEMETOLOGY METHOD 11/11/2024 10:22 AM [facility] LAB Platelets 320 130 - 400 K/mcL LAB HEMETOLOGY METHOD 11/11/2024 10:22 AM [facility] LAB MPV 11.1(H) 7.0 - 11.0 FL LAB HEMETOLOGY METHOD 11/11/2024 10:22 AM [facility] LAB NRBC 0.0 <1.0 % LAB HEMETOLOGY METHOD 11/11/2024 10:22 AM [facility] LAB NRBC Absolute 0.00 <0.10 K/mcL LAB HEMETOLOGY METHOD 11/11/2024 10:22 AM [facility] Neutrophils Relative 74.2 % LAB HEMETOLOGY METHOD 11/11/2024 10:22 AM [facility] Lymphocytes Relative 13.1 % LAB HEMETOLOGY METHOD 11/11/2024 10:22 AM [facility] Monocytes Relative 9.6 % LAB HEMETOLOGY METHOD 11/11/2024 10:22 AM EST [facility] Eosinophils Relative 2.1 % LAB HEMETOLOGY METHOD 11/11/2024 10:22 AM [facility] Basophils Relative 0.5 % LAB HEMETOLOGY METHOD 11/11/2024 10:22 AM [facility] Immature Granulocytes Relative 0.5 % LAB HEMETOLOGY METHOD 11/11/2024 10:22 AM [facility] Neutrophils Absolute 6.08 1.50 - 7.00 K/mcL LAB HEMETOLOGY METHOD 11/11/2024 10:22 AM [facility] Lymphocytes Absolute 1.07 1.00 - 5.00 K/mcL LAB HEMETOLOGY METHOD 11/11/2024 10:22 AM [facility] Monocytes Absolute 0.79 0.20 - 1.00 K/mcL LAB HEMETOLOGY METHOD 11/11/2024 10:22 AM EST [facility] Eosinophils Absolute 0.17 0.00 - 0.50 K/mcL LAB HEMETOLOGY METHOD 11/11/2024 10:22 AM [facility] Basophils Absolute 0.04 0.00 - 0.20 K/mcL LAB HEMETOLOGY METHOD 11/11/2024 10:22 AM [facility] LAB Immature Granulocytes Absolute 0.04(H) 0.00 - 0.03 K/mcL LAB HEMETOLOGY METHOD 11/11/2024 10:22 AM [facility] LAB Blood Venous blood specimen / Unknown Venipuncture / Unknown 11/11/2024 7:00 AM EST 11/11/2024 9:18 AM EST us Marine Ryder MD LAB BLOOD ORDERABLES Final Resu lt [facility] [address] [place] [address], [place] [phone] * (ABNORMAL) Comprehensive metabolic panel (11/11/2024 7:00 AM EST) Sodium 133 133 - 145 mmol/L LAB CHEMISTRY METHOD 11/11/2024 10:36 AM [facility] Potassium 4.9 3.5 - 5.5 mmol/L LAB CHEMISTRY METHOD 11/11/2024 10:36 AM [facility] LAB Chloride 99 96 - 110 mmol/L LAB CHEMISTRY METHOD 11/11/2024 10:36 AM [facility] LAB CO2 25 21 - 32 mmol/L LAB CHEMISTRY METHOD 11/11/2024 10:36 AM [facility] LAB Anion Gap 9 3 - 11 LAB CHEMISTRY METHOD 11/11/2024 10:36 AM [facility] Glucose 255(H) 70 - 100 mg/dL LAB CHEMISTRY METHOD 11/11/2024 10:36 AM [facility] BUN 28(H) 5 - 25 mg/dL LAB CHEMISTRY METHOD 11/11/2024 10:36 AM [facility] LAB Creatinine 0.83 0.50 - 1.10 mg/dL LAB CHEMISTRY METHOD 11/11/2024 10:36 AM [facility] LAB eGFR 67 >=60 mL/min/1. 73m2 LAB CHEMISTRY METHOD 11/11/2024 10:36 AM [facility] LAB Comment:Calculation based on the??Chronic Kidney Disease Epidemiology Collaboration (CKD-EPI) equation refit??without adjustment for race. BUN/Creatinine Ratio 33.7 LAB CHEMISTRY METHOD 11/11/2024 10:36 AM [facility] LAB Calcium 8.0(L) 8.5 - 10.5 mg/dL LAB CHEMISTRY METHOD 11/11/2024 10:36 AM [facility] LAB AST (SGOT) 23 10 - 42 unit/L LAB CHEMISTRY METHOD 11/11/2024 10:36 AM [facility] ALT (SGPT) 14 10 - 60 unit/L LAB CHEMISTRY METHOD 11/11/2024 10:36 AM EST [facility] Alkaline Phosphatase 87 42 - 121 unit/L LAB CHEMISTRY METHOD 11/11/2024 10:36 AM [facility] Total Protein 5.2(L) 6.0 - 8.0 g/dL LAB CHEMISTRY METHOD 11/11/2024 10:36 AM EST [facility] Albumin 2.3(L) 3.2 - 5.0 g/dL LAB CHEMISTRY METHOD 11/11/2024 10:36 AM [facility] Total Bilirubin 0.9 0.0 - 1.4 mg/dL LAB CHEMISTRY METHOD 11/11/2024 10:36 AM [facility] LAB Blood Venous blood specimen / Unknown Venipuncture / Unknown 11/11/2024 7:00 AM EST 11/11/2024 9:18 AM EST us Marine Ryder MD LAB BLOOD ORDERABLES Final Resu lt [facility] [address] [place] [address], documented in this encounter Visit Diagnoses Diagnosis Encounter for other general examination documented in this encounter Additional Health Concerns Infection Onset Date Last Indicated Resolved Time Gastrointestinal Rule-Out 11/15/2024 11/15/2024 2:43 PM EST 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
--- OUTSIDE RECORDS SUMMARY | 2025-03-25 11:52 | XMS_ITS | Encounter Summary ---
Author Organization [facility] Address [address] [place] [address] Care Team Providers Care Irrigationist Designer Name Role Phone Keli Dickinson MD Primary Care Provider [phone] Encounter Details Date Type Department Care Team (Late st Contact Info) Description 11/15/2024 Lab Requisition [facility] Lab [address] [facility] [place] [address] Marine Ryder MD [address] [place] [phone] Encounter for other general examination Social History [...] Detected LAB MICROBIOLOGY METHOD 4 2:43 PM [facility] Plesiomonas shigelloides Detection by PCR Not Detected Not Detected LAB MICROBIOLOGY METHOD 4 2:43 PM [facility] Salmonella Detection by PCR Not Detected Not Detected LAB MICROBIOLOGY METHOD 4 2:43 PM [facility] Vibrio Detection by PCR Not Detected Not Detected LAB MICROBIOLOGY METHOD 4 2:43 PM [facility] Vibrio cholerae Detection by PCR Not Detected Not Detected LAB MICROBIOLOGY METHOD 4 2:43 PM [facility] Yersinia enterocolitica Detection by PCR Not Detected Not Detected LAB MICROBIOLOGY METHOD 4 2:43 PM [facility] Enteroaggregative E coli EAEC Detection by PCR Not Detected Not Detected LAB MICROBIOLOGY METHOD 4 2:43 PM [facility] Enteropathogenic E coli EPEC Detection Not Detected Not Detected LAB MICROBIOLOGY METHOD 4 2:43 PM [facility] Enterotoxigenic E coli ETEC LTST Detection Not Detected Not Detected LAB MICROBIOLOGY METHOD 4 2:43 PM [facility] Shiga-like toxin producing E coli STEC STX1 STX2 Det Not Detected Not Detected LAB MICROBIOLOGY METHOD 4 2:43 PM [facility] Shigella Enteroinvasive E coli EIEC Detection Not Detected Not Detected LAB MICROBIOLOGY METHOD 4 2:43 PM [facility] Cryptosporidium Detection by PCR Not Detected Not Detected LAB MICROBIOLOGY METHOD 4 2:43 PM [facility] Cyclospora cayetanensis Detection by PCR Not Detected Not Detected LAB MICROBIOLOGY METHOD 4 2:43 PM [facility] Entamoeba histolytica Detection by PCR Not Detected Not Detected LAB MICROBIOLOGY METHOD 4 2:43 PM [facility] Giardia lamblia Detection by PCR Not Detected Not Detected LAB MICROBIOLOGY METHOD 4 2:43 PM [facility] Adenovirus F 40 41 Detection by PCR Not Detected Not Detected LAB MICROBIOLOGY METHOD 4 2:43 PM [facility] Astrovirus Detection by PCR Not Detected Not Detected LAB MICROBIOLOGY METHOD 4 2:43 PM [facility] Norovirus GI GII Detection by PCR Not Detected Not Detected LAB MICROBIOLOGY METHOD 4 2:43 PM EST [facility] Sapovirus Detection by PCR Not Detected Not Detected LAB MICROBIOLOGY METHOD 4 2:43 PM [facility] Rotavirus A Detection by PCR Not Detected Not Detected LAB MICROBIOLOGY METHOD 4 2:43 PM [facility] Stool Rectum structure / Unknown 11/15/2024 9:00 AM EST 11/15/2024 12:06 PM EST [facility] - 11/15/2024 2:43 PM [...] us Marine Ryder MD LAB MICROBIOLOGY - [facility]NY PEDRAZA Final Result [facility] [address] [place] [address], documented in this encounter Visit Diagnoses Diagnosis Encounter for other general examination documented in this encounter Additional Health Concerns Infection Onset Date Last Indicated Resolved Time Gastrointestinal Rule-Out 11/15/2024 11/15/2024 2:43 PM EST 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
--- OUTSIDE RECORDS SUMMARY | 2025-03-25 11:52 | XMS_ITS | Encounter Summary ---
Author Organization [facility] Address [address] [place] [address] Care Team Providers Care Wood Engraver Name Role Phone Keli Dickinson MD Primary Care Provider [phone] Encounter Details Date Type Department Care Team (Late st Contact Info) Description 11/08/2024 Lab Requisition [facility] Lab [address] [place] [address] Marine Ryder MD [address] [place] [phone] Encounter for other general examination Social History [...] PM EST) WBC 8.1 4.8 - 10.8 K/[facility] LAB HEMETOLOGY METHOD 11/08/2024 3:05 PM EST [facility] LAB RBC 3.40(L) 3.80 - 4.80 M/mcL LAB HEMETOLOGY METHOD 11/08/2024 3:05 PM EST [facility] Hemoglobin 8.5(L) 11.5 - 16.0 g/dL LAB HEMETOLOGY METHOD 11/08/2024 3:05 PM [facility] LAB Hematocrit 28.0(L) 35.0 - 47.0 % LAB HEMETOLOGY METHOD 11/08/2024 3:05 PM [facility] LAB MCV 82.8 79.0 - 98.0 FL LAB HEMETOLOGY METHOD 11/08/2024 3:05 PM [facility] LAB MCH 25.1(L) 27.0 - 32.0 pcg LAB HEMETOLOGY METHOD 11/08/2024 3:05 PM [facility] LAB MCHC 30.4(L) 32.0 - 37.0 g/dL LAB HEMETOLOGY METHOD 11/08/2024 3:05 PM [facility] LAB RDW 19.1(H) 11.0 - 15.0 % LAB HEMETOLOGY METHOD 11/08/2024 3:05 PM [facility] LAB Platelets 330 130 - 400 K/mcL LAB HEMETOLOGY METHOD 11/08/2024 3:05 PM [facility] LAB MPV 11.2(H) 7.0 - 11.0 FL LAB HEMETOLOGY METHOD 11/08/2024 3:05 PM [facility] LAB NRBC 0.0 <1.0 % LAB HEMETOLOGY METHOD 11/08/2024 3:05 PM [facility] LAB NRBC Absolute 0.00 <0.10 K/mcL LAB HEMETOLOGY METHOD 11/08/2024 3:05 PM [facility] Neutrophils Relative 82.0 % LAB HEMETOLOGY METHOD 11/08/2024 3:05 PM [facility] Lymphocytes Relative 9.0 % LAB HEMETOLOGY METHOD 11/08/2024 3:05 PM [facility] Monocytes Relative 7.3 % LAB HEMETOLOGY METHOD 11/08/2024 3:05 PM [facility] Eosinophils Relative 0.7 % LAB HEMETOLOGY METHOD 11/08/2024 3:05 PM [facility] Basophils Relative 0.4 % LAB HEMETOLOGY METHOD 11/08/2024 3:05 PM [facility] Immature Granulocytes Relative 0.6 % LAB HEMETOLOGY METHOD 11/08/2024 3:05 PM [facility] Neutrophils Absolute 6.64 1.50 - 7.00 K/mcL LAB HEMETOLOGY METHOD 11/08/2024 3:05 PM [facility] Lymphocytes Absolute 0.73(L) 1.00 - 5.00 K/mcL LAB HEMETOLOGY METHOD 11/08/2024 3:05 PM [facility] Monocytes Absolute 0.59 0.20 - 1.00 K/mcL LAB HEMETOLOGY METHOD 11/08/2024 3:05 PM [facility] Eosinophils Absolute 0.06 0.00 - 0.50 K/mcL LAB HEMETOLOGY METHOD 11/08/2024 3:05 PM [facility] Basophils Absolute 0.03 0.00 - 0.20 K/mcL LAB HEMETOLOGY METHOD 11/08/2024 3:05 PM [facility] Immature Granulocytes Absolute 0.05(H) 0.00 - 0.03 K/mcL LAB HEMETOLOGY METHOD 11/08/2024 3:05 PM [facility] Blood Venous blood specimen / Unknown Venipuncture / Unknown 11/08/2024 1:11 PM EST 11/08/2024 2:48 PM EST us Marine Ryder MD LAB BLOOD ORDERABLES Final Resu lt [facility] [address] [place] [address], documented in this encounter Visit Diagnoses Diagnosis Encounter for other general examination documented in this encounter Additional Health Concerns Infection Onset Date Last Indicated Resolved Time Gastrointestinal Rule-Out 11/15/2024 11/15/2024 2:43 PM EST 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
[2025-03-25 12:30] LABS: MANUAL DIFF FLAG NO
[2025-03-25 12:37] LABS: Venous Blood Gas Refer to POC result
[2025-03-25 12:39] LABS: VBG Base Excess -0.6 mmol/L; VBG HCO3 24 mmol/L (22-26); VBG pCO2 40 mmHg; VBG pH 7.38 (7.32-7.43); VBG pO2 48 mmHg
[2025-03-25 12:39] LABS: INTERNATIONAL NORM RATIO 1.1 (0.9-1.1); Prothrombin Time 12.6 SEC (10.9-12.4)
[2025-03-25 12:43] LABS: Basophils Absolute Auto 0.1 X10*3/uL (0.0-0.2); Basophils Percent Auto 0.6 % (0-2); Eosinophils Percent Auto 0.5 % (0-4); Hematocrit 30.9 % (37.0-47.0); Imm Gran Abs Auto 0.03 X10*3/uL (0.00-0.03); Imm Gran Pct Auto 0.4 % (0.0-0.4); Lymphocytes Absolute Auto 1.3 X10*3/uL (1.2-4.9); Lymphocytes Percent Auto 16.3 % (20-40); Mean Corpuscular HGB Conc 32.4 g/dl (31.0-35.0); Mean Corpuscular Hemoglobin 26.1 pg (27.0-33.0); Mean Corpuscular Volume 80.7 fL (80.0-98.0); Mean Platelet Volume 10.9 fL (9.4-12.3); Monocytes Absolute Auto 0.5 X10*3/uL (0.1-1.2); Monocytes Percent Auto 6.2 % (2-11); Neutrophils Absolute Auto 5.9 x10*3/uL (2.0-8.3); Platelet Count 342 X10*3/uL (160-400); Red Blood Count 3.83 X10*6/uL (4.20-5.50); Red Cell Distribution Width 17.2 % (11.0-16.0); White Blood Count 7.8 X10*3/uL (4.8-10.8)
[2025-03-25 12:44] LABS: Appearance Urine Clear; Color Urine Yellow; Glucose Urine UA >=1000 mg/dL (Negative); Leukocyte Esterase Urine Negative (Negative); Nitrite Urine Negative (Negative); PH 5.5 (5.0-9.0); Specific Gravity - Urine 1.015 (1.005-1.025); UMIC TRIGGER UACC YES; Urine Blood Negative (Negative); Urine Ketones 15 mg/dL (Negative); Urine Protein Negative (Neg-Trace)
[2025-03-25 12:55] LABS: Alanine Aminotransferase 6 U/L (0-31); Albumin Level 3.6 g/dL (3.5-5.0); Alkaline Phosphatase 86 U/L (39-117); Anion Gap 19 (12-20); Aspartate Amino Transferase 25 U/L (5-31); Bilirubin Total 0.8 mg/dL (0.0-1.0); Blood Urea Nitrogen 21 mg/dL (9-16); Calcium 8.6 mg/dL (8.4-10.2); Carbon Dioxide 20 mmol/L (22-29); Chloride 96 mmol/L (96-108); Creatinine Clr Calc Pharmacy 34.1; Estimated Glomerular Filt Rate 47; Glucose Random 500 mg/dL (60-115); Magnesium 1.7 mg/dL (1.6-2.6); Potassium 4.6 mmol/L (3.3-5.1); Sodium 130 mmol/L (135-145); Total Protein 6.4 g/dL (6.5-8.0)
[2025-03-25 12:56] LABS: B Type Natriuretic Peptide 567 pg/mL (<100)
[2025-03-25 13:03] LABS: Bacteria Urine None Seen (None Seen); Hyaline Casts Urine 0-2 /LPF (0-2); RBC Urine 0-2 /HPF (0-2); WBC Urine 0-5 /HPF (0-5)
[2025-03-25 13:13] LABS: Influenza A PCR NEGATIVE (Negative); Influenza B PCR NEGATIVE (Negative); Resp Syncy Virus RNA Qual PCR NEGATIVE (Negative); SARS COV2 PCR INHOUSE POSITIVE (Negative)
[2025-03-25] MEDS: 0.9 % Sodium Chloride 1,000 ML 500 ML IVCONT (13:18)
--- NOTE | 2025-03-25 13:29 | PC.NURSE ---
Pt A+OX3; speech is clear, no slurring; vss; pt denies dizziness at this time; lab made this RN aware at 1255 that serum glucose was 500; POC glucose by this RN earlier was 441; made aware twice; awaiting orders
[2025-03-25] MEDS: Insulin Regular, Human 100 UNIT/ML 10 ML VIAL 10 UNIT IVPUSH (13:56)
[2025-03-25 14:01] VITALS: BP 136/69; PULSE 76; RESP 14; TEMP 36.3; O2SAT 99
--- NOTE | 2025-03-25 14:20 | PC.NURSE ---
noted: pt is + Covid; pt has been positive for 4 days and is asymptomatic
[2025-03-25 14:44] LABS: Glucose, Whole Blood 330 mg/dL (60-115)
[2025-03-25] MEDS: Insulin Regular, Human 100 UNIT/ML 10 ML VIAL IVPUSH (14:53)
[2025-03-25 15:56] LABS: Glucose, Whole Blood 246 mg/dL (60-115)
[2025-03-25 16:07] VITALS: BP 127/52; PULSE 65; RESP 15; TEMP 36.6; O2SAT 95
[2025-03-25] MEDS: Insulin Lispro 100 UNIT/ML 3 ML VIAL SUBCUT ×2 (16:52→21:28)
--- NOTE | 2025-03-25 17:25 | PC.NURSE ---
Pt's last POC of 246 covered by sliding scale; pt tolerating PO fluids at this time; pt awaiting PT eval for dispo
[2025-03-25 17:55] VITALS: BP 132/61; PULSE 68; RESP 12; TEMP 36.6; O2SAT 98
[2025-03-25 19:17] VITALS: BP 116/46; PULSE 69; RESP 16; TEMP 36.3
--- NOTE | 2025-03-25 19:22 | MHC.EDTECH ---
This pct assumed care of Patient at 1900 ,vitals taken ,Patient belongings list done ,blood sugar check ,RN aware of result ,Patient was reposition and boosted up in bed .Call doss within Patient reach .
[2025-03-25 19:38] LABS: Glucose, Whole Blood 227 mg/dL (60-115)
--- NOTE | 2025-03-25 20:22 | PC.NURSE ---
Assistance provided to the bedpan for bowel movement. Pt cleaned and pericare provided. Pt tolerated well.
[2025-03-25 21:25] LABS: Glucose, Whole Blood 268 mg/dL (60-115)
[2025-03-25 21:59] VITALS: BP 118/52; PULSE 67; RESP 18; TEMP 36.6; O2SAT 96
[2025-03-26 07:40] LABS: Glucose, Whole Blood 313 mg/dL (60-115)
[2025-03-26] MEDS: Insulin Lispro 100 UNIT/ML 3 ML VIAL SUBCUT ×3 (07:48→18:52)
--- NOTE | 2025-03-26 11:31 | PC.NURSE ---
pt moved to hospital bed for comfort, mepilex placed on coccyx, call doss in hand, pt remains on purewick
[2025-03-26 12:48] VITALS: BP 129/59; PULSE 66; RESP 17; TEMP 36.4; O2SAT 94
[2025-03-26 13:06] LABS: Glucose, Whole Blood 268 mg/dL (60-115)
--- NOTE | 2025-03-26 13:29 | MHC.CM.ED ---
Addendum entered by Denia Mejia 03/26/25 13:32: Patient originally tested positive for Covid on 03/21. 03/25 Covid swab is also positive. Original Note: Received case management consult from Flaquito MCINTOSH. Patient came to the ER due to weakness and elevated glucose. Hospital admission not needed. Physical therapy eval ordered. Not available until Tuesday 03/27. Patient was d/c'd from [facility] on 03/24 with Wallace VIDALES. Met with patient in regards to discharge planning. Patient is very hard of hearing but is able to communicate with T/W. Patient aware physical therapy eval is unavailable until Thursday. Facility choices: 1) [facility] 2) [facility] 3) [facility] [address]. Referrals made in [facility]. Continue to monitor for d/c needs.
--- NOTE | 2025-03-26 13:33 | PHA.MEDREC ---
Addendum entered by Sary Dougherty RP 03/26/25 13:55: reviewed by [facility]. Original Note: Pharmacy Consult ? Medication Reconciliation Pharmacy has completed the medication reconciliation. Spoke with daughter Irina over the phone to confirm. She reports no changes besides the decrease in Lantus to 15 units which the patient only had one dose of at home, and they finished the Humalog Mix rx and started Novolog again TIDWM with sliding scale. She is still using the lasix, had yesterday morning. Irina said she only had morning medications yesterday and was sent back here.
[2025-03-26 14:47] VITALS: BP 115/51; PULSE 70; RESP 18; TEMP 36.7; O2SAT 96
[2025-03-26 18:13] LABS: Glucose, Whole Blood 327 mg/dL (60-115)
[2025-03-26 18:40] VITALS: BP 141/60; PULSE 70; RESP 18; TEMP 36.5; O2SAT 97
[2025-03-26 18:52] VITALS: BP 141/60
[2025-03-26] MEDS: Furosemide 20 MG TABLET PO (18:52)
[2025-03-26] MEDS: Cyanocobalamin (Vitamin B-12) 100 MCG TABLET PO (18:52)
[2025-03-26] MEDS: Omeprazole 20 MG CAPSULE.DR PO (18:52)
[2025-03-26 22:08] LABS: Glucose, Whole Blood 270 mg/dL (60-115)
[2025-03-26] MEDS: Calcium Oyster Shell Elemental 500 MG TABLET PO (22:14)
[2025-03-26] MEDS: Insulin Glargine,Hum.rec.anlog 100 UNIT/ML 10 ML VIAL 15 UNIT SUBCUT (22:14)
[2025-03-26] MEDS: Nystatin Powder 15 GM BOTTLE 1 APPL TOPICAL (22:14)
[2025-03-26] MEDS: Pravastatin Sodium 80 MG TABLET PO (22:17)
[2025-03-27] MEDS: Levothyroxine Sodium 112 MCG TABLET PO (06:20)
[2025-03-27] MEDS: Omeprazole 20 MG CAPSULE.DR PO (06:20)
[2025-03-27 06:23] VITALS: BP 140/59; PULSE 65; RESP 14; TEMP 36.5; O2SAT 96
--- NOTE | 2025-03-27 06:26 | PC.NURSE ---
Patient A&O x 3. Speech clear. + covid, denies SOB, 98% RA. Denies pain. Tolerated AM medications whole. VSS and up to date.
[2025-03-27 07:21] VITALS: BP 140/60; PULSE 65; RESP 12; TEMP 37.1; O2SAT 99
[2025-03-27 07:40] LABS: Glucose, Whole Blood 335 mg/dL (60-115)
[2025-03-27] MEDS: Insulin Lispro 100 UNIT/ML 3 ML VIAL SUBCUT ×4 (07:40→17:40)
--- NOTE | 2025-03-27 07:44 | PC.NURSE ---
Insulin administered per sliding scale, no s/sx of hypo/hyperglycemia. Patient eating breakfast without difficulty.
[2025-03-27 08:37] VITALS: BP 126/78; PULSE 76; RESP 16; TEMP 36.6; O2SAT 98
--- NOTE | 2025-03-27 09:15 | PC.NURSE ---
Physical Therapist (Rylie) at bedside.
--- NOTE | 2025-03-27 09:31 | MHC.CM.PN ---
CM CALLED PTS DAUGHTER WHO UNDERSTANDS PT ONLY HAS 8 DAYS OF STR BENEFITS REMAINING ON HER MCR, SHE DOES NOT HAVE ANOTHER PAYER FOR THIS SERVICE. YUNIOR REPORTS SHE DOES NOT THINK THE PT NEEDS STR, SHE SAYS THE PT KEEPS COMING TO THE HOSPITAL BECAUSE OF HER SUGARS SHE SAYS IF THE SUGARS WERE CONTROLLED SHE COULD BE HOME, SHE SAYS IT HAS BEEN SO BAD THE [facility]NA HAS NOT EVEN BEEN ABLE PROVIDE SN BECAUSE THE PT IS RETURNING TO THE ED SO FREQUENTLY PT EVAL IS STILL PENDING, CM WILL SPEAK TO YUNIOR ONCE COMPLETE
--- NOTE | 2025-03-27 10:25 | PC.NURSE ---
Multiple medications unavailable in Pyxis. Reached out to pharmacy. Will administer medications upon receipt. Patient aware of reason for delay.
[2025-03-27 11:18] LABS: Glucose, Whole Blood 284 mg/dL (60-115)
[2025-03-27 11:35] LABS: Glucose, Whole Blood 441 mg/dL (60-115)
[2025-03-27 11:42] VITALS: BP 126/78
[2025-03-27] MEDS: Nystatin Powder 15 GM BOTTLE 1 APPL TOPICAL ×3 (11:42→21:10)
[2025-03-27] MEDS: Furosemide 20 MG TABLET PO (11:42)
[2025-03-27 14:00] VITALS: BP 130/62; PULSE 63; RESP 14; TEMP 36.2; O2SAT 96
[2025-03-27 16:29] LABS: Glucose, Whole Blood 185 mg/dL (60-115)
--- NOTE | 2025-03-27 16:51 | PC.NURSE ---
Reached out to DAYNA Sinclair regarding multiple insulin (Admelog) subcutaneous orders. First order states to give 5 units Admelog subcutaneously with every meal, plus a second order to give Admelog insulin per sliding scale. Latest POC Glucose is 185. This RN stated that I don't feel comfortable administering a total of 7 units of subcutaneous Admelog (fast acting) for a patient with a POC glucose of 185. Patient received dinner tray: garden salad with grilled chicken, grilled cheese sandwich, and chicken noodle soup with diet lee talia. Prior to this latest POC, glucose readings have been >200 and has been receiving Admelog per sliding scale order only. Awaiting response from DAYNA Abarca regarding this.
--- NOTE | 2025-03-27 17:46 | PC.NURSE ---
7 units of Admelog administered subcutaneously, per Tevin MCINTOSH orders. Will recheck POC in 1 hour (18:30). Patient consumed 100% of grilled cheese sandwich, ~75% of salad (ate all of the grilled chicken), 100% of chicken noodle soup, and drank 100% of diet lee talia. Patient verbalized plan to recheck POC glucose in 1 hour. Tech also aware. Family member Irina called, okayed to speak with her over the phone per patient. Irina to come visit today.
[2025-03-27 18:37] LABS: Glucose, Whole Blood 293 mg/dL (60-115)
[2025-03-27 20:45] VITALS: BP 106/43; PULSE 66; RESP 17; TEMP 36.7; O2SAT 96
[2025-03-27] MEDS: Calcium Oyster Shell Elemental 500 MG TABLET PO (21:10)
[2025-03-27] MEDS: Pravastatin Sodium 80 MG TABLET PO (21:10)
[2025-03-27 21:35] LABS: Glucose, Whole Blood 204 mg/dL (60-115)
[2025-03-27] MEDS: Insulin Glargine,Hum.rec.anlog 100 UNIT/ML 10 ML VIAL 15 UNIT SUBCUT (21:55)
--- NOTE | 2025-03-27 23:51 | PC.NURSE ---
Assumed care of patient at 1900, Patient alert and oriented x3. Bedtime poc 204, medications administered per mar. Offers no complaints at this time. Vitals stable, l/s clear, abd large and soft. Nystatin to left breast applied. Patient's purewick changed, skincare provided, pink foam dressing to coccyx c/d/i. Patient repositioned pillows to right side. Warm blanket provided, callbell within reach, bed alarm on.
--- NOTE | 2025-03-28 03:30 | PC.NURSE ---
This personal lines underwriter assumed care of this Pt at 0300. Pt appears to be sleeping, equal, non labored respirations. Plan of care on going.
[2025-03-28 05:45] VITALS: BP 117/46; PULSE 67; RESP 16; TEMP 36.8; O2SAT 96
[2025-03-28] MEDS: Levothyroxine Sodium 112 MCG TABLET PO (05:59)
[2025-03-28] MEDS: Omeprazole 20 MG CAPSULE.DR PO (05:59)
[2025-03-28] MEDS: Acetaminophen 325 MG TABLET 650 MG PO (06:28)
[2025-03-28 07:29] LABS: Glucose, Whole Blood 258 mg/dL (60-115)
[2025-03-28 07:59] VITALS: BP 90/54; PULSE 67; RESP 18; TEMP 36.8; O2SAT 98
[2025-03-28] MEDS: Insulin Lispro 100 UNIT/ML 3 ML VIAL SUBCUT ×2 (08:06→08:07)
[2025-03-28] MEDS: Calcium Oyster Shell Elemental 500 MG TABLET PO (08:07)
[2025-03-28] MEDS: Zinc Sulfate 220 MG CAPSULE PO (08:07)
[2025-03-28] MEDS: Cyanocobalamin (Vitamin B-12) 100 MCG TABLET PO (08:07)
[2025-03-28] MEDS: Nystatin Powder 15 GM BOTTLE 1 APPL TOPICAL (08:25)
--- NOTE | 2025-03-28 10:13 | PC.NURSE ---
Assumed care of pt at 0700. Pt alert and oriented. Respirations even and unlabored. Pt offers no c/o pain or discomfort to TW. Pt meal and medication compliant - takes pills whole with water. Bed bath provided by [facility] this AM. Plan of care ongoing.
[2025-03-28 11:18] VITALS: BP 109/44; PULSE 73; RESP 16; TEMP 36.6; O2SAT 97
--- NOTE | 2025-03-28 12:47 | MHC.CM.ED ---
Patient was d/c'd home with family and resumption of [facility] services. [facility] made aware.
== END 2025-03-28 11:25 | disposition home or self-care (01) ==
PROVIDERS: Physician Assistant Medical; Emergency Provider Emergency Medicine; PCP Internal Medicine
DX: U07.1 COVID-19 (principal); R41.82 Altered mental status, unspecified; E11.65 Type 2 diabetes mellitus with hyperglycemia; I25.10 Atherosclerotic heart disease of native coronary artery without angina pectoris; R47.81 Slurred speech; R06.02 Shortness of breath; R26.81 Unsteadiness on feet; R11.0 Nausea; Z79.4 Long term (current) use of insulin; Z79.899 Other long term (current) drug therapy
CPT/HCPCS: 0241U; 36415; 70450; 80053; 81001; 82010; 82803; 82947; 83735; 83880; 84484; 85025; 85610; 93005; 96361; 96374; 96376; 97161; 99285

== ENCOUNTER → 2025-03-25 11:35 | Outpatient (BNV) | payer MEDICARE, OTHER, SELFPAY | PROVIDERS: Emergency Provider Emergency Medicine; PCP Internal Medicine; Visit Provider Internal Medicine | DX: I44.0 Atrioventricular block, first degree (principal); I44.7 Left bundle-branch block, unspecified | CPT/HCPCS: 93010 ==

== ENCOUNTER → 2025-03-25 13:50 | Outpatient (BNV) | payer MEDICARE, OTHER, SELFPAY | PROVIDERS: Emergency Provider Emergency Medicine; PCP Internal Medicine; Visit Provider Radiology Diagnostic Radiology | DX: G93.89 Other specified disorders of brain (principal) | CPT/HCPCS: 70450 ==

== ENCOUNTER → 2025-03-29 17:28 | Outpatient (BNV) | payer MEDICARE, OTHER, SELFPAY | PROVIDERS: Admitting Provider Student in an Organized Health Care Education/Training Program; Emergency Provider Internal Medicine; PCP Internal Medicine; Visit Provider Internal Medicine Cardiovascular Disease | DX: I44.0 Atrioventricular block, first degree (principal); I44.7 Left bundle-branch block, unspecified; I49.1 Atrial premature depolarization | CPT/HCPCS: 93010 ==

== ENCOUNTER → 2025-03-29 18:29 | Outpatient (BNV) | payer MEDICARE, OTHER, SELFPAY | PROVIDERS: Emergency Provider Internal Medicine; PCP Internal Medicine; Visit Provider Student in an Organized Health Care Education/Training Program | DX: E11.10 Type 2 diabetes mellitus with ketoacidosis without coma (principal) | CPT/HCPCS: 99223; 99239; 99499 ==

== ENCOUNTER → 2025-03-29 18:31 | Outpatient (BNV) | payer MEDICARE, OTHER, SELFPAY | PROVIDERS: Emergency Provider Internal Medicine; PCP Internal Medicine; Visit Provider Radiology Diagnostic Radiology | DX: I50.9 Heart failure, unspecified (principal) | CPT/HCPCS: 71045 ==

== ENCOUNTER 2025-03-30 12:15 | Outpatient (REF) | payer MEDICARE, OTHER, SELFPAY ==
--- OUTSIDE RECORDS SUMMARY | 2025-04-03 12:42 | XMS_ITS | Encounter Summary ---
Author Organization [facility] Address [address] [place] [address] Care Team Providers Care Power And Recovery Supervisor Name Role Phone Keli Dickinson MD Primary Care Provider [phone] Encounter Details Date Type Department Care Team (Late st Contact Info) Description 11/08/2024 Lab Requisition [facility] Lab [address] [place] [address] Marine Ryder MD [address] [place] [phone] Encounter for other general examination Social History [...] PM EST) WBC 8.1 4.8 - 10.8 K/[facility] LAB HEMETOLOGY METHOD 11/08/2024 3:05 PM EST [facility] RBC 3.40(L) 3.80 - 4.80 M/mcL LAB HEMETOLOGY METHOD 11/08/2024 3:05 PM EST [facility] LAB Hemoglobin 8.5(L) 11.5 - 16.0 g/dL LAB HEMETOLOGY METHOD 11/08/2024 3:05 PM [facility] LAB Hematocrit 28.0(L) 35.0 - 47.0 % LAB HEMETOLOGY METHOD 11/08/2024 3:05 PM [facility] LAB MCV 82.8 79.0 - 98.0 FL LAB HEMETOLOGY METHOD 11/08/2024 3:05 PM [facility] LAB MCH 25.1(L) 27.0 - 32.0 pcg LAB HEMETOLOGY METHOD 11/08/2024 3:05 PM [facility] LAB MCHC 30.4(L) 32.0 - 37.0 g/dL LAB HEMETOLOGY METHOD 11/08/2024 3:05 PM [facility] LAB RDW 19.1(H) 11.0 - 15.0 % LAB HEMETOLOGY METHOD 11/08/2024 3:05 PM [facility] LAB Platelets 330 130 - 400 K/mcL LAB HEMETOLOGY METHOD 11/08/2024 3:05 PM [facility] LAB MPV 11.2(H) 7.0 - 11.0 FL LAB HEMETOLOGY METHOD 11/08/2024 3:05 PM [facility] LAB NRBC 0.0 <1.0 % LAB HEMETOLOGY METHOD 11/08/2024 3:05 PM [facility] LAB NRBC Absolute 0.00 <0.10 K/mcL LAB HEMETOLOGY METHOD 11/08/2024 3:05 PM [facility] LAB Neutrophils Relative 82.0 % LAB HEMETOLOGY METHOD 11/08/2024 3:05 PM [facility] LAB Lymphocytes Relative 9.0 % LAB HEMETOLOGY METHOD 11/08/2024 3:05 PM [facility] LAB Monocytes Relative 7.3 % LAB HEMETOLOGY METHOD 11/08/2024 3:05 PM [facility] LAB Eosinophils Relative 0.7 % LAB HEMETOLOGY METHOD 11/08/2024 3:05 PM [facility] Basophils Relative 0.4 % LAB HEMETOLOGY METHOD 11/08/2024 3:05 PM [facility] LAB Immature Granulocytes Relative 0.6 % LAB HEMETOLOGY METHOD 11/08/2024 3:05 PM [facility] LAB Neutrophils Absolute 6.64 1.50 - 7.00 K/mcL LAB HEMETOLOGY METHOD 11/08/2024 3:05 PM [facility] LAB Lymphocytes Absolute 0.73(L) 1.00 - 5.00 K/mcL LAB HEMETOLOGY METHOD 11/08/2024 3:05 PM [facility] LAB Monocytes Absolute 0.59 0.20 - 1.00 K/mcL LAB HEMETOLOGY METHOD 11/08/2024 3:05 PM [facility] LAB Eosinophils Absolute 0.06 0.00 - 0.50 K/mcL LAB HEMETOLOGY METHOD 11/08/2024 3:05 PM [facility] LAB Basophils Absolute 0.03 0.00 - 0.20 K/mcL LAB HEMETOLOGY METHOD 11/08/2024 3:05 PM [facility] LAB Immature Granulocytes Absolute 0.05(H) 0.00 - 0.03 K/mcL LAB HEMETOLOGY METHOD 11/08/2024 3:05 PM [facility] Blood Venous blood specimen / Unknown Venipuncture / Unknown 11/08/2024 1:11 PM EST 11/08/2024 2:48 PM EST us Marine Ryder MD LAB BLOOD ORDERABLES Final Resu lt [facility] [address] [place] [address], documented in this encounter Visit Diagnoses Diagnosis Encounter for other general examination documented in this encounter Additional Health Concerns Infection Onset 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
--- OUTSIDE RECORDS SUMMARY | 2025-04-03 12:42 | XMS_ITS | Encounter Summary ---
Author Organization Rachel [facility] Address [address] [place] [address] Care Team Providers Care Supervisor Denture Department Name Role Phone Keli Dickinson MD Primary Care Provider [phone] Encounter Details Date Type Department Care Team (Late st Contact Info) Description 11/11/2024 Lab Requisition [facility] - Main Lab [address] [place] [address] Marine yRder MD [address] [place] [id number] Encounter for other general examination Social History [...] AM EST) WBC 8.2 4.8 - 10.8 K/[facility] LAB HEMETOLOGY METHOD 11/11/2024 10:22 AM EST [facility] RBC 3.00(L) 3.80 - 4.80 M/[facility] LAB HEMETOLOGY METHOD 11/11/2024 10:22 AM [facility] LAB Hemoglobin 7.7(L) 11.5 - 16.0 g/dL LAB HEMETOLOGY METHOD 11/11/2024 10:22 AM [facility] LAB Hematocrit 25.3(L) 35.0 - 47.0 % LAB HEMETOLOGY METHOD 11/11/2024 10:22 AM [facility] LAB MCV 83.8 79.0 - 98.0 FL LAB HEMETOLOGY METHOD 11/11/2024 10:22 AM [facility] LAB MCH 25.5(L) 27.0 - 32.0 pcg LAB HEMETOLOGY METHOD 11/11/2024 10:22 AM [facility] LAB MCHC 30.4(L) 32.0 - 37.0 g/dL LAB HEMETOLOGY METHOD 11/11/2024 10:22 AM [facility] LAB RDW 19.6(H) 11.0 - 15.0 % LAB HEMETOLOGY METHOD 11/11/2024 10:22 AM [facility] LAB Platelets 320 130 - 400 K/mcL LAB HEMETOLOGY METHOD 11/11/2024 10:22 AM [facility] LAB MPV 11.1(H) 7.0 - 11.0 FL LAB HEMETOLOGY METHOD 11/11/2024 10:22 AM [facility] LAB NRBC 0.0 <1.0 % LAB HEMETOLOGY METHOD 11/11/2024 10:22 AM [facility] LAB NRBC Absolute 0.00 <0.10 K/mcL LAB HEMETOLOGY METHOD 11/11/2024 10:22 AM [facility] LAB Neutrophils Relative 74.2 % LAB HEMETOLOGY METHOD 11/11/2024 10:22 AM [facility] Lymphocytes Relative 13.1 % LAB HEMETOLOGY METHOD 11/11/2024 10:22 AM [facility] Monocytes Relative 9.6 % LAB HEMETOLOGY METHOD 11/11/2024 10:22 AM EST [facility] LAB Eosinophils Relative 2.1 % LAB HEMETOLOGY METHOD 11/11/2024 10:22 AM [facility] Basophils Relative 0.5 % LAB HEMETOLOGY METHOD 11/11/2024 10:22 AM [facility] LAB Immature Granulocytes Relative 0.5 % LAB HEMETOLOGY METHOD 11/11/2024 10:22 AM [facility] LAB Neutrophils Absolute 6.08 1.50 - 7.00 K/mcL LAB HEMETOLOGY METHOD 11/11/2024 10:22 AM [facility] Lymphocytes Absolute 1.07 1.00 - 5.00 K/mcL LAB HEMETOLOGY METHOD 11/11/2024 10:22 AM [facility] Monocytes Absolute 0.79 0.20 - 1.00 K/mcL LAB HEMETOLOGY METHOD 11/11/2024 10:22 AM EST [facility] LAB Eosinophils Absolute 0.17 0.00 - 0.50 K/mcL LAB HEMETOLOGY METHOD 11/11/2024 10:22 AM [facility] Basophils Absolute 0.04 0.00 - 0.20 K/mcL LAB HEMETOLOGY METHOD 11/11/2024 10:22 AM [facility] LAB Immature Granulocytes Absolute 0.04(H) 0.00 - 0.03 K/mcL LAB HEMETOLOGY METHOD 11/11/2024 10:22 AM [facility] LAB Blood Venous blood specimen / Unknown Venipuncture / Unknown 11/11/2024 7:00 AM EST 11/11/2024 9:18 AM EST us Marine Ryder MD LAB BLOOD ORDERABLES Final Resu lt [facility] [address] [place] [address], [place] [phone] * (ABNORMAL) Comprehensive metabolic panel (11/11/2024 7:00 AM EST) Sodium 133 133 - 145 mmol/L LAB CHEMISTRY METHOD 11/11/2024 10:36 AM [facility] Potassium 4.9 3.5 - 5.5 mmol/L LAB CHEMISTRY METHOD 11/11/2024 10:36 AM [facility] Chloride 99 96 - 110 mmol/L LAB CHEMISTRY METHOD 11/11/2024 10:36 AM [facility] CO2 25 21 - 32 mmol/L LAB CHEMISTRY METHOD 11/11/2024 10:36 AM [facility] LAB Anion Gap 9 3 - 11 LAB CHEMISTRY METHOD 11/11/2024 10:36 AM [facility] Glucose 255(H) 70 - 100 mg/dL LAB CHEMISTRY METHOD 11/11/2024 10:36 AM [facility] BUN 28(H) 5 - 25 mg/dL LAB CHEMISTRY METHOD 11/11/2024 10:36 AM [facility] Creatinine 0.83 0.50 - 1.10 mg/dL LAB CHEMISTRY METHOD 11/11/2024 10:36 AM [facility] LAB eGFR 67 >=60 mL/min/1. 73m2 LAB CHEMISTRY METHOD 11/11/2024 10:36 AM [facility] LAB Comment:Calculation based on the??Chronic Kidney Disease Epidemiology Collaboration (CKD-EPI) equation refit??without adjustment for race. BUN/Creatinine Ratio 33.7 LAB CHEMISTRY METHOD 11/11/2024 10:36 AM [facility] Calcium 8.0(L) 8.5 - 10.5 mg/dL LAB CHEMISTRY METHOD 11/11/2024 10:36 AM [facility] LAB AST (SGOT) 23 10 - 42 unit/L LAB CHEMISTRY METHOD 11/11/2024 10:36 AM [facility] LAB ALT (SGPT) 14 10 - 60 unit/L LAB CHEMISTRY METHOD 11/11/2024 10:36 AM EST [facility] Alkaline Phosphatase 87 42 - 121 unit/L LAB CHEMISTRY METHOD 11/11/2024 10:36 AM [facility] Total Protein 5.2(L) 6.0 - 8.0 g/dL LAB CHEMISTRY METHOD 11/11/2024 10:36 AM EST [facility] Albumin 2.3(L) 3.2 - 5.0 g/dL LAB CHEMISTRY METHOD 11/11/2024 10:36 AM [facility] Total Bilirubin 0.9 0.0 - 1.4 mg/dL LAB CHEMISTRY METHOD 11/11/2024 10:36 AM [facility] LAB Blood Venous blood specimen / Unknown Venipuncture / Unknown 11/11/2024 7:00 AM EST 11/11/2024 9:18 AM EST us Marnie Ryder MD LAB BLOOD ORDERABLES Final Resu lt [facility] [address] [place] [address], documented in this encounter Visit Diagnoses Diagnosis Encounter for other general examination documented in this encounter Additional Health Concerns Infection Onset Date 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
--- OUTSIDE RECORDS SUMMARY | 2025-04-03 12:42 | XMS_ITS | Encounter Summary ---
Author Organization Rachel [facility] Address [address] [place] [address] Care Team Providers Care Drawing In Machine Tender Helper Name Role Phone Keli Dickinson MD Primary Care Provider [phone] Encounter Details Date Type Department Care Team (Late st Contact Info) Description 01/28/2025 Lab Requisition [facility] - Main Lab [address] [place] [address] Keli Dickinson MD [address] [place] [address] Anemia, unspecified Social History Tobacco [...] LAB COAGULATION METHOD 01/28/2025 4:10 PM EDT [facility] ([facility]) [facility] Blood Venous blood specimen / Unknown Venipuncture / Unknown 01/28/2025 3:28 PM EDT 01/28/2025 3:54 PM EDT Narrative [facility] LAB - 01/28/2025 4:10 PM EDT D-Dimer <230 ng/mL (D-Dimer units) is the threshold for exclusion of DVT/PE. D-Dimer may be elevated in: Critically ill, severely infected, trauma patients, DIC, acute CVA, acute W[place], unstable angina, AF, old age, , and smoking. D-Dimer may be decreased with: Initiation of heparin therapy and oral anticoagulants. us Keli Dickinson MD LAB BLOOD ORDERABLES Final Resul t [facility] [address] [place] [address], * (ABNORMAL) Comprehensive metabolic panel (01/28/2025 3:28 PM EDT) Sodium 135 133 - 145 mmol/L LAB CHEMISTRY METHOD [facility] Potassium 4.2 3.5 - 5.5 mmol/L LAB CHEMISTRY METHOD 01/28/2025 4:30 PM [facility] Chloride 101 96 - 110 mmol/L LAB CHEMISTRY METHOD 01/28/2025 4:30 PM [facility] CO2 27 21 - 32 mmol/L LAB CHEMISTRY METHOD 01/28/2025 4:30 PM [facility] Anion Gap 7 3 - 11 LAB CHEMISTRY METHOD 01/28/2025 4:30 PM [facility] Glucose 338(H) 70 - 100 mg/dL LAB CHEMISTRY METHOD 01/28/2025 4:30 PM [facility] BUN 15 5 - 25 mg/dL LAB CHEMISTRY METHOD 01/28/2025 4:30 PM [facility] Creatinine 0.87 0.50 - 1.10 mg/dL LAB CHEMISTRY METHOD 01/28/2025 4:30 PM EDT [facility] LAB eGFR 64 >=60 mL/min/1. 73m2 LAB CHEMISTRY METHOD 01/28/2025 4:30 PM EDT [facility] LAB Comment:Calculation based on the??Chronic Kidney Disease Epidemiology Collaboration (CKD-EPI) equation refit??without adjustment for race. BUN/Creatinine Ratio 17.2 LAB CHEMISTRY METHOD 01/28/2025 4:30 PM EDT [facility] LAB Calcium 8.7 8.5 - 10.5 mg/dL LAB CHEMISTRY METHOD 01/28/2025 4:30 PM T [facility] LAB AST (SGOT) 14 10 - 42 unit/L LAB CHEMISTRY METHOD 01/28/2025 4:30 PM [facility] ALT (SGPT) 13 10 - 60 unit/L LAB CHEMISTRY METHOD 01/28/2025 4:30 PM [facility] Alkaline Phosphatase 95 42 - 121 unit/L LAB CHEMISTRY METHOD 01/28/2025 4:30 PM EDT [facility] LAB Total Protein 5.7(L) 6.0 - 8.0 g/dL LAB CHEMISTRY METHOD 01/28/2025 4:30 PM [facility] Albumin 2.8(L) 3.2 - 5.0 g/dL LAB CHEMISTRY METHOD 01/28/2025 4:30 PM [facility] Total Bilirubin 0.4 0.0 - 1.4 mg/dL LAB CHEMISTRY METHOD 01/28/2025 4:30 PM [facility] Blood Venous blood specimen / Unknown Venipuncture / Unknown 01/28/2025 3:28 PM EDT 01/28/2025 3:54 PM EDT us Keli Dickinson MD LAB BLOOD ORDERABLES Final Resul t [facility] [address] [place] [address], * (ABNORMAL) Complete blood count (01/28/2025 3:28 PM EDT) [facility] WBC 7.9 4.8 - 10.8 K/mcL LAB HEMETOLOGY METHOD 01/28/2025 4:06 PM [facility] RBC 4.20 3.80 - 4.80 M/mcL LAB HEMETOLOGY METHOD 01/28/2025 4:06 PM [facility] Hemoglobin 10.5(L) 11.5 - 16.0 g/dL LAB HEMETOLOGY METHOD 01/28/2025 4:06 PM [facility] Hematocrit 33.2(L) 35.0 - 47.0 % LAB HEMETOLOGY METHOD 01/28/2025 4:06 PM [facility] MCV 79.6 79.0 - 98.0 FL LAB HEMETOLOGY METHOD 01/28/2025 4:06 PM [facility] MCH 25.2(L) 27.0 - 32.0 pcg LAB HEMETOLOGY METHOD 01/28/2025 4:06 PM [facility] MCHC 31.6(L) 32.0 - 37.0 g/dL LAB HEMETOLOGY METHOD 01/28/2025 4:06 PM [facility] RDW 15.2(H) 11.0 - 15.0 % LAB HEMETOLOGY METHOD 01/28/2025 4:06 PM [facility] Platelets 233 130 - 400 K/mcL LAB HEMETOLOGY METHOD 01/28/2025 4:06 PM [facility] MPV 11.1(H) 7.0 - 11.0 FL LAB HEMETOLOGY METHOD 01/28/2025 4:06 PM [facility] NRBC 0.0 <1.0 % LAB HEMETOLOGY METHOD 01/28/2025 4:06 PM EDT [facility] LAB NRBC Absolute 0.00 <0.10 K/mcL LAB HEMETOLOGY METHOD 01/28/2025 4:06 PM EDT [facility] LAB Blood Venous blood specimen / Unknown Venipuncture / Unknown 01/28/2025 3:28 PM EDT 01/28/2025 3:54 PM EDT us Keli Dickinson MD LAB BLOOD ORDERABLES Final Resul t [facility] [address] [place] [address], documented in this encounter Visit Diagnoses Diagnosis Anemia, unspecified documented in this encounter 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
--- OUTSIDE RECORDS SUMMARY | 2025-04-03 12:42 | XMS_ITS | Encounter Summary ---
Author Organization Rachel [facility] Address [address] [place] [address] Care Team Providers Care Film Splicer Name Role Phone Keli Dickinson MD Primary Care Provider [phone] Encounter Details Date Type Department Care Team (Late st Contact Info) Description 02/07/2025 Lab Requisition [facility] - Main Lab [address] [place] [address] Keli Dickinson MD [address] [place] [address] Urinary tract infection, site not [...] Hold for add-ons. 02/07/2025 1:01 PM EDT [facility] ([facility]) [facility] LAB Comment:Auto resulted. Urine Urine specimen obtained by clean catch procedure / Unknown 02/07/2025 02/07/2025 11:38 AM EDT us Keli Dickinson MD LAB URINE ORDERABLES Final Resul t [facility] [address] [place] [address], [place] [phone] * (ABNORMAL) Urinalysis with reflex microscopic (02/07/2025 12:00 AM EDT) Specific [place] Urine 1.017 1.003 - 1.030 LAB URINALYSIS - AUTOMATED METHOD 02/07/2025 1:34 PM EDT [facility] pH, Urine 6.0 5.0 - 8.0 pH LAB URINALYSIS - AUTOMATED METHOD 02/07/2025 1:[address] [facility] Leukocytes, Urine Large(A) Negative LAB URINALYSIS - AUTOMATED METHOD 02/07/2025 1:[address] [facility] Nitrite, Urine Negative Negative LAB URINALYSIS - AUTOMATED METHOD 02/07/2025 1:[address] [facility] Protein, Urine 30(A) <=Trace mg/dL LAB URINALYSIS - AUTOMATED METHOD 02/07/2025 1:[address] [facility] Glucose, Urine Negative Negative mg/dL LAB URINALYSIS - AUTOMATED METHOD 02/07/2025 1:[address] [facility] Ketones, Urine Trace(A) Negative mg/dL LAB URINALYSIS - AUTOMATED METHOD 02/07/2025 1:[address] [facility] Urobilinogen , Urine 0.2 0.2 - 1.0 mg/dL LAB URINALYSIS - AUTOMATED METHOD 02/07/2025 1:[address] [facility] Bilirubin, Urine Negative Negative LAB URINALYSIS - AUTOMATED METHOD 02/07/2025 1:[address] [facility] Blood, Urine Trace(A) Negative LAB URINALYSIS - AUTOMATED METHOD 02/07/2025 1:34 PM EDT [facility] RBC, Urine 13.5(H) 0 - 4 /HPF LAB URINALYSIS - AUTOMATED METHOD 02/07/2025 1:34 PM EDT [facility] WBC, Urine 846.5(H) 0 - 4 /HPF LAB URINALYSIS - AUTOMATED METHOD 02/07/2025 1:34 PM EDT [facility] Squamous Epithelial, Urine >100(H) 0 - 60 /LPF LAB URINALYSIS - AUTOMATED METHOD 02/07/2025 1:34 PM EDT [facility] Bacteria, Urine Negative Negative /HPF LAB URINALYSIS - AUTOMATED METHOD 02/07/2025 1:34 PM EDT [facility] Hyaline Casts, Urine 12.0(H) 0 - 3 /LPF LAB URINALYSIS - AUTOMATED METHOD 02/07/2025 1:34 PM EDT [facility] Yeast, Urine Present(A) None /HPF LAB URINALYSIS - AUTOMATED METHOD 02/07/2025 1:34 PM T [facility] Urine Urine specimen obtained by clean catch procedure / Unknown 02/07/2025 02/07/2025 11:37 AM EDT us Keli Dickinson MD LAB URINE ORDERABLES Final Resul t [facility] [address] [place] [address], documented in this encounter Visit Diagnoses Diagnosis Urinary tract infection, site not specified documented in this encounter 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
--- OUTSIDE RECORDS SUMMARY | 2025-04-03 12:42 | XMS_ITS | Encounter Summary ---
Author Organization Rachel [facility] Address [address] [place] [address] Care Team Providers Care Connection Worker Name Role Phone Keli Dickinson MD Primary Care Provider [phone] Encounter Details Date Type Department Care Team (Latest Contact Info) Description 11/19/2024 Lab Requisition [facility] - Main Lab [address] [place] [address] Keli Dickinson MD [address] [place] [address] Type 2 diabetes mellitus without [...] EST Type 2 diabetes mellitus without complications ([facility]/HCC) Anemia, unspecified HEMOGLOBIN A1C Routine 11/19/2024 7:20 AM EST Type 2 diabetes mellitus without complications (CMS/HCC) Anemia, unspecified COMPREHENSIVE METABOLIC PANEL Routine 11/19/2024 7:20 AM EST Type 2 diabetes mellitus without complications ([facility]) Anemia, unspecified documented in this encounter Results * (ABNORMAL) Hemoglobin A1c (11/19/2024 7:20 AM EST) Hemoglobin A1C 6.8(H) <6.5 % LAB CHEMISTRY METHOD 11/21/2024 10:21 AM EST [facility] Mean Bld Glu Estim. 148 mg/dL LAB CHEMISTRY METHOD 11/21/2024 10:[address] [facility] Blood Venous blood specimen / Unknown Venipuncture / Unknown 11/19/2024 7:20 AM EST 11/19/2024 11:06 AM EST Keli Dickinson MD LAB BLOOD ORDERABLES Final Resul t [facility] [address] [place] [address], [place] [phone] * (ABNORMAL) Comprehensive metabolic panel (11/19/2024 7:20 AM EST) Sodium 132(L) 133 - 145 mmol/L LAB CHEMISTRY METHOD 11/19/2024 11:[address] [facility] Potassium 5.2 3.5 - 5.5 mmol/L LAB CHEMISTRY METHOD 11/19/2024 11:[address] [facility] Chloride 101 96 - 110 mmol/L LAB CHEMISTRY METHOD 11/19/2024 11:[address] [facility] CO2 26 21 - 32 mmol/L LAB CHEMISTRY METHOD 11/19/2024 11:[address] [facility] Anion Gap 5 3 - 11 LAB CHEMISTRY METHOD 11/19/2024 11:[address] [facility] Glucose 99 70 - 100 mg/dL LAB CHEMISTRY METHOD 11/19/2024 11:[address] [facility] BUN 26(H) 5 - 25 mg/dL LAB CHEMISTRY METHOD 11/19/2024 11:[address] [facility] Creatinine 0.85 0.50 - 1.10 mg/dL LAB CHEMISTRY METHOD 11/19/2024 11:[address] [facility] eGFR 66 >=60 mL/min/1. 73m2 LAB CHEMISTRY METHOD 11/19/2024 11:[address] [facility] LAB Comment:Calculation based on the??Chronic Kidney Disease Epidemiology Collaboration (CKD-EPI) equation refit??without adjustment for race. BUN/Creatinine Ratio 30.6 LAB CHEMISTRY METHOD 11/19/2024 11:[address] [facility] Calcium 8.2(L) 8.5 - 10.5 mg/dL LAB CHEMISTRY METHOD 11/19/2024 11:[address] [facility] AST (SGOT) 15 10 - 42 unit/L LAB CHEMISTRY METHOD 11/19/2024 11:[address] [facility] ALT (SGPT) 13 10 - 60 unit/L LAB CHEMISTRY METHOD 11/19/2024 11:[address] [facility] Alkaline Phosphatase 105 42 - 121 unit/L LAB CHEMISTRY METHOD 11/19/2024 11:[address] [facility] Total Protein 5.3(L) 6.0 - 8.0 g/dL LAB CHEMISTRY METHOD 11/19/2024 11:[address] [facility] Albumin 2.2(L) 3.2 - 5.0 g/dL LAB CHEMISTRY METHOD 11/19/2024 11:[address] [facility] Total Bilirubin 0.6 0.0 - 1.4 mg/dL LAB CHEMISTRY METHOD 11/19/2024 11:[address] [facility] Blood Venous blood specimen / Unknown Venipuncture / Unknown 11/19/2024 7:20 AM EST 11/19/2024 11:06 AM EST us Keli Dickinson MD LAB BLOOD ORDERABLES Final Resul t [facility] [address] [place] [address], * (ABNORMAL) Complete blood count (11/19/2024 7:20 AM EST) WBC 6.9 4.8 - 10.8 K/mcL LAB HEMETOLOGY METHOD 11/19/2024 11:[address] [facility] RBC 3.10(L) 3.80 - 4.80 M/mcL LAB HEMETOLOGY METHOD 11/19/2024 11:[address] [facility] Hemoglobin 7.9(L) 11.5 - 16.0 g/dL LAB HEMETOLOGY METHOD 11/19/2024 11:[address] [facility] Hematocrit 26.0(L) 35.0 - 47.0 % LAB HEMETOLOGY METHOD 11/19/2024 11:[address] [facility] MCV 84.7 79.0 - 98.0 FL LAB HEMETOLOGY METHOD 11/19/2024 11:[address] [facility] MCH 25.7(L) 27.0 - 32.0 pcg LAB HEMETOLOGY METHOD 11/19/2024 11:[address] [facility] MCHC 30.4(L) 32.0 - 37.0 g/dL LAB HEMETOLOGY METHOD 11/19/2024 11:[address] [facility] RDW 19.5(H) 11.0 - 15.0 % LAB HEMETOLOGY METHOD 11/19/2024 11:[address] [facility] Platelets 415(H) 130 - 400 K/mcL LAB HEMETOLOGY METHOD 11/19/2024 11:[address] [facility] MPV 10.3 7.0 - 11.0 FL LAB HEMETOLOGY METHOD 11/19/2024 11:[address] [facility] NRBC 0.0 <1.0 % LAB HEMETOLOGY METHOD 11/19/2024 11:[address] 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
--- OUTSIDE RECORDS SUMMARY | 2025-04-03 12:42 | XMS_ITS | Encounter Summary ---
Author Organization [facility] Address [address] [place] [address] Care Team Providers Care Knife Sharpener Name Role Phone Keli Dickinson MD Primary Care Provider [phone] Encounter Details Date Type Department Care Team (Late st Contact Info) Description 12/01/2024 Lab Requisition [facility] Lab [address] [place] [address] Keli Dickinson MD [address] [place] [address] Other osteonecrosis, unspecified femur (CMS/HCC [...] AM EST) WBC 7.1 4.8 - 10.8 [facility] HEMETOLOGY METHOD 12/01/2024 12:50 PM EST [facility] RBC 3.70(L) 3.80 - 4.80 [facility] LAB HEMETOLOGY METHOD 12/01/2024 12:50 PM [facility] LAB Hemoglobin 9.7(L) 11.5 - 16.0 g/dL LAB HEMETOLOGY METHOD 12/01/2024 12:50 PM [facility] LAB Hematocrit 30.8(L) 35.0 - 47.0 % LAB HEMETOLOGY METHOD 12/01/2024 12:50 PM [facility] LAB MCV 83.2 79.0 - 98.0 FL LAB HEMETOLOGY METHOD 12/01/2024 12:50 PM [facility] LAB MCH 26.2(L) 27.0 - 32.0 pcg LAB HEMETOLOGY METHOD 12/01/2024 12:50 PM [facility] LAB MCHC 31.5(L) 32.0 - 37.0 g/dL LAB HEMETOLOGY METHOD 12/01/2024 12:50 PM [facility] LAB RDW 17.7(H) 11.0 - 15.0 % LAB HEMETOLOGY METHOD 12/01/2024 12:50 PM [facility] LAB Platelets 462(H) 130 - 400 K/mcL LAB HEMETOLOGY METHOD 12/01/2024 12:50 PM [facility] LAB MPV 10.3 7.0 - 11.0 FL LAB HEMETOLOGY METHOD 12/01/2024 12:50 PM [facility] LAB NRBC 0.0 <1.0 % LAB HEMETOLOGY METHOD 12/01/2024 12:50 PM [facility] LAB NRBC Absolute 0.00 <0.10 K/mcL LAB HEMETOLOGY METHOD 12/01/2024 12:50 PM [facility] LAB Neutrophils Relative 68.7 % LAB HEMETOLOGY METHOD 12/01/2024 12:50 PM [facility] LAB Lymphocytes Relative 20.0 % LAB HEMETOLOGY METHOD 12/01/2024 12:50 PM EST [facility] LAB Monocytes Relative 8.4 % LAB HEMETOLOGY METHOD 12/01/2024 12:50 PM [facility] LAB Eosinophils Relative 1.6 % LAB HEMETOLOGY METHOD 12/01/2024 12:50 PM [facility] LAB Basophils Relative 0.9 % LAB HEMETOLOGY METHOD 12/01/2024 12:50 PM [facility] LAB Immature Granulocytes Relative 0.4 % LAB HEMETOLOGY METHOD 12/01/2024 12:50 PM [facility] LAB Neutrophils Absolute 4.85 1.50 - 7.00 K/mcL LAB HEMETOLOGY METHOD 12/01/2024 12:50 PM [facility] LAB Lymphocytes Absolute 1.41 1.00 - 5.00 K/mcL LAB HEMETOLOGY METHOD 12/01/2024 12:50 PM [facility] LAB Monocytes Absolute 0.59 0.20 - 1.00 K/mcL LAB HEMETOLOGY METHOD 12/01/2024 12:50 PM [facility] LAB Eosinophils Absolute 0.11 0.00 - 0.50 K/mcL LAB HEMETOLOGY METHOD 12/01/2024 12:50 PM [facility] LAB Basophils Absolute 0.06 0.00 - 0.20 K/mcL LAB HEMETOLOGY METHOD 12/01/2024 12:50 PM [facility] LAB Immature Granulocytes Absolute 0.03 0.00 - 0.03 K/mcL LAB HEMETOLOGY METHOD 12/01/2024 12:50 PM [facility] LAB Blood Venous blood specimen / Unknown Venipuncture / Unknown 12/01/2024 8:38 AM EST 12/01/2024 10:08 AM EST us Keli Dickinson MD LAB BLOOD ORDERABLES Final Resul t [facility] LAB [address] [place] [address], documented in this encounter Visit Diagnoses Diagnosis Other osteonecrosis, unspecified femur (CMS/[facility] V24, CMS/[facility] V28) documented in this encounter 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
--- OUTSIDE RECORDS SUMMARY | 2025-04-03 12:42 | XMS_ITS | Encounter Summary ---
Author Organization [facility] Address [address] [place] [address] Care Team Providers Care Club Car Attendant Name Role Phone Keli Dickinson MD Primary Care Provider [phone] Encounter Details Date Type Department Care Team (Late st Contact Info) Description 01/26/2025 Lab Requisition [facility] Lab [address] [place] [address] Keli Dickinson MD [address] [place] [address] Urinary tract infection, site not [...] reflex microscopic (01/25/2025 11:15 PM EDT) Specific [place] Urine 1.037(H) 1.003 - 1.030 LAB URINALYSIS - AUTOMATED METHOD 01/26/2025 11:03 AM EDT [facility] LAB pH, Urine 5.5 5.0 - 8.0 pH LAB URINALYSIS - AUTOMATED METHOD 01/26/2025 11:03 AM [facility] LAB Leukocytes, Urine Moderate(A) Negative LAB URINALYSIS - AUTOMATED METHOD 01/26/2025 11:03 AM [facility] LAB Nitrite, Urine Negative Negative LAB URINALYSIS - AUTOMATED METHOD 01/26/2025 11:03 AM [facility] LAB Protein, Urine 30(A) <=Trace mg/dL LAB URINALYSIS - AUTOMATED METHOD 01/26/2025 11:03 AM [facility] LAB Glucose, Urine >=1000(A) Negative mg/dL LAB URINALYSIS - AUTOMATED METHOD 01/26/2025 11:03 AM [facility] LAB Ketones, Urine Trace(A) Negative mg/dL LAB URINALYSIS - AUTOMATED METHOD 01/26/2025 11:03 AM [facility] LAB Urobilinogen , Urine 0.2 0.2 - 1.0 mg/dL LAB URINALYSIS - AUTOMATED METHOD 01/26/2025 11:03 AM [facility] LAB Bilirubin, Urine Negative Negative LAB URINALYSIS - AUTOMATED METHOD 01/26/2025 11:03 AM [facility] LAB Blood, Urine Moderate(A) Negative LAB URINALYSIS - AUTOMATED METHOD 01/26/2025 11:03 AM [facility] LAB RBC, Urine 10.0(H) 0 - 4 /HPF LAB URINALYSIS - AUTOMATED METHOD 01/26/2025 11:03 AM [facility] LAB WBC, Urine 1,135.8(H) 0 - 4 /HPF LAB URINALYSIS - AUTOMATED METHOD 01/26/2025 11:03 AM [facility] LAB Squamous Epithelial, Urine >100(H) 0 - 60 /LPF LAB URINALYSIS - AUTOMATED METHOD 01/26/2025 11:03 AM [facility] LAB Bacteria, Urine Few(A) Negative [...] Resul t [facility] [address] [place] [address], * (ABNORMAL) Culture urine (01/25/2025 11:15 PM [...] - GENERAL ORDER BOBBY Final Result [facility] [address] [place] [address], documented in this encounter Visit Diagnoses Diagnosis Urinary tract infection, site not specified documented in this encounter 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
--- OUTSIDE RECORDS SUMMARY | 2025-04-03 12:42 | XMS_ITS ---
Author Organization [facility] Address [address] [place] [address] Care Team Providers Care Food Manager Name Role Phone Janes Foster MD Primary Care Provider Fernando Wall Unavailable [phone] REASON FOR VISIT cx 10/18 Encounters Encounter Location Date Provider Diagnosis [address] [address] 10/17/2024 Fernando Lim Plan Of Treatment No Information Progress Notes * TIFFANYYuli Lisa ADOB:[birth year] (89 yo F)Acc No.[id number]:10/17/2024 Patient:?Lisa HOLLIDAY :1935???Age:88 Y???Sex:Female Address: [address] [place], [address] * true * Date:? Generated for Printi jesus manuel/Jonnie/eTransmitting on:?04/03/2025 12:42 PM EDT
--- OUTSIDE RECORDS SUMMARY | 2025-04-03 12:42 | XMS_ITS ---
Author Organization [facility] Address [address] [place] [address] Care Team Providers Care Dental Assistant Name Role Phone Kristin MAGALLANES, Janes Primary Care Provider Fernando Wall Unavailable [phone] Encounters Encounter Location Date Provider Diagnosis [facility] [address] [place] [address] 10/18/2024 Fernando Lim Plan Of Treatment No Information Progress Notes * Lisa HOLLIDAY ADOB:[birth year] (89 yo F)Acc No.[id number]:10/18/2024 Progress Note Patient:?Lisa HOLLIDAY Provider:?Fernando Lim DPM :1935???Age:88 Y???Sex:Female D ate:10/18/2024 Address: [place], [id number] Pcp:Janes Foster MD Subjective: * Chief Complaints: * ??? * Medical History:? Objective: * Vitals:? Assessment: Plan: * Treatment: * Images: * The named appointment provid er may or may not be the originator of this progress note, and it is not deemed complete until electronically signed by the appointment provider. Sign off status: Pending * Provider:?Fernando Lim DPM Date:?2023 Generated for Printi ng/Faxing/eTransmitting on:?04/03/2025 12:41 PM EDT
--- OUTSIDE RECORDS SUMMARY | 2025-04-03 12:42 | XMS_ITS | Encounter Summary ---
Author Organization [facility] Address [address] [place] [address] Care Team Providers Care Core Winding Operator Name Role Phone Keli Dickinson MD Primary Care Provider [phone] Encounter Details Date Type Department Care Team (Late st Contact Info) Description 11/15/2024 Lab Requisition [facility] Lab [address] [facility] [place] [address] Marine Ryder MD [address] [place] [address] Encounter for other general examination Social History [...] Detected LAB MICROBIOLOGY METHOD 4 2:43 PM [facility] LAB Plesiomonas shigelloides Detection by PCR Not Detected Not Detected LAB MICROBIOLOGY METHOD 4 2:43 PM [facility] LAB Salmonella Detection by PCR Not Detected Not Detected LAB MICROBIOLOGY METHOD 4 2:43 PM [facility] LAB Vibrio Detection by PCR Not Detected Not Detected LAB MICROBIOLOGY METHOD 4 2:43 PM [facility] LAB Vibrio cholerae Detection by PCR Not Detected Not Detected LAB MICROBIOLOGY METHOD 4 2:43 PM [facility] LAB Yersinia enterocolitica Detection by PCR Not Detected Not Detected LAB MICROBIOLOGY METHOD 4 2:43 PM [facility] LAB Enteroaggregative E coli EAEC Detection by PCR Not Detected Not Detected LAB MICROBIOLOGY METHOD 4 2:43 PM [facility] LAB Enteropathogenic E coli EPEC Detection Not Detected Not Detected LAB MICROBIOLOGY METHOD 4 2:43 PM [facility] LAB Enterotoxigenic E coli ETEC LTST Detection Not Detected Not Detected LAB MICROBIOLOGY METHOD 4 2:43 PM [facility] LAB Shiga-like toxin producing E coli STEC STX1 STX2 Det Not Detected Not Detected LAB MICROBIOLOGY METHOD 4 2:43 PM [facility] LAB Shigella Enteroinvasive E coli EIEC Detection Not Detected Not Detected LAB MICROBIOLOGY METHOD 4 2:43 PM [facility] Cryptosporidium Detection by PCR Not Detected Not Detected LAB MICROBIOLOGY METHOD 4 2:43 PM [facility] Cyclospora cayetanensis Detection by PCR Not Detected Not Detected LAB MICROBIOLOGY METHOD 4 2:43 PM [facility] LAB Entamoeba histolytica Detection by PCR Not Detected Not Detected LAB MICROBIOLOGY METHOD 4 2:43 PM [facility] Giardia lamblia Detection by PCR Not Detected Not Detected LAB MICROBIOLOGY METHOD 4 2:43 PM [facility] LAB Adenovirus F 40 41 Detection by PCR Not Detected Not Detected LAB MICROBIOLOGY METHOD 4 2:43 PM [facility] Astrovirus Detection by PCR Not Detected Not Detected LAB MICROBIOLOGY METHOD 4 2:43 PM [facility] LAB Norovirus GI GII Detection by PCR Not Detected Not Detected LAB MICROBIOLOGY METHOD 4 2:43 PM EST [facility] LAB Sapovirus Detection by PCR Not Detected Not Detected LAB MICROBIOLOGY METHOD 4 2:43 PM [facility] LAB Rotavirus A Detection by PCR Not Detected Not Detected LAB MICROBIOLOGY METHOD 4 2:43 PM [facility] LAB Stool Rectum structure / Unknown 11/15/2024 9:00 AM EST 11/15/2024 12:06 PM EST [facility] LAB - 11/15/2024 2:43 PM EST PCR [...] us Marine Ryder MD LAB MICROBIOLOGY - 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
--- OUTSIDE RECORDS SUMMARY | 2025-04-03 12:42 | XMS_ITS | Encounter Summary ---
Author Organization [facility] Address [address] [place] [address] Care Team Providers Care Shipping And Receiving Material Handler Name Role Phone Keli Dickinson MD Primary Care Provider [phone] Encounter Details Date Type Department Care Team (Latest Contact Info) Description 01/18/2025 Lab Requisition [facility] Lab [address] [place] [address] Keli Dickinson MD [address] [place] [address] Type 2 diabetes mellitus without [...] EST Type 2 diabetes mellitus without complications ([facility]/HCC) Essential (primary) hypertension Hypo-osmolality and hyponatremia BASIC METABOLIC PANEL Routine 01/18/2025 9:14 AM EST Type 2 diabetes mellitus without complications (CMS/HCC) Essential (primary) hypertension Hypo-osmolality and hyponatremia documented in this encounter Results * (ABNORMAL) Basic metabolic panel (01/18/2025 9:14 AM EST) Sodium 137 133 - 145 mmol/L LAB CHEMISTRY METHOD 01/18/2025 2:47 PM EST [facility] Potassium 3.7 3.5 - 5.5 mmol/L LAB CHEMISTRY METHOD 01/18/2025 2:47 PM [facility] Chloride 105 96 - 110 mmol/L LAB CHEMISTRY METHOD 01/18/2025 2:47 PM [facility] LAB CO2 22 21 - 32 mmol/L LAB CHEMISTRY METHOD 01/18/2025 2:47 PM [facility] LAB Anion Gap 10 3 - 11 LAB CHEMISTRY METHOD 01/18/2025 2:47 PM [facility] LAB Glucose 257(H) 70 - 100 mg/dL LAB CHEMISTRY METHOD 01/18/2025 2:47 PM [facility] LAB BUN 24 5 - 25 mg/dL LAB CHEMISTRY METHOD 01/18/2025 2:47 PM [facility] LAB Creatinine 0.99 0.50 - 1.10 mg/dL LAB CHEMISTRY METHOD 01/18/2025 2:47 PM [facility] LAB eGFR 55(L) >=60 mL/min/1. 73m2 LAB CHEMISTRY METHOD 01/18/2025 2:47 PM [facility] LAB Comment:Calculation based on the??Chronic Kidney Disease Epidemiology Collaboration (CKD-EPI) equation refit??without adjustment for race. BUN/Creatinine Ratio 24.2 LAB CHEMISTRY METHOD 01/18/2025 2:47 PM [facility] LAB Calcium 8.6 8.5 - 10.5 mg/dL LAB CHEMISTRY METHOD 01/18/2025 2:47 PM [facility] LAB Blood Venous blood specimen / Unknown Venipuncture / Unknown 01/18/2025 9:14 AM EST 01/18/2025 10:13 AM EST us Keli Dickinson MD LAB BLOOD ORDERABLES Final Resul t [facility] [address] [place] [address], * (ABNORMAL) Complete blood count (01/18/2025 9:14 AM EST) [facility] WBC 7.5 4.8 - 10.8 K/mcL LAB HEMETOLOGY METHOD 01/18/2025 11:33 AM [facility] LAB RBC 3.90 3.80 - 4.80 M/mcL LAB HEMETOLOGY METHOD 01/18/2025 11:33 AM [facility] LAB Hemoglobin 9.7(L) 11.5 - 16.0 g/dL LAB HEMETOLOGY METHOD 01/18/2025 11:33 AM [facility] LAB Hematocrit 31.3(L) 35.0 - 47.0 % LAB HEMETOLOGY METHOD 01/18/2025 11:33 AM [facility] LAB MCV 80.3 79.0 - 98.0 FL LAB HEMETOLOGY METHOD 01/18/2025 11:33 AM [facility] LAB MCH 24.9(L) 27.0 - 32.0 pcg LAB HEMETOLOGY METHOD 01/18/2025 11:33 AM [facility] LAB MCHC 31.0(L) 32.0 - 37.0 g/dL LAB HEMETOLOGY METHOD 01/18/2025 11:33 AM [facility] LAB RDW 15.1(H) 11.0 - 15.0 % LAB HEMETOLOGY METHOD 01/18/2025 11:33 AM [facility] LAB Platelets 229 130 - 400 K/mcL LAB HEMETOLOGY METHOD 01/18/2025 11:33 AM [facility] LAB MPV 11.6(H) 7.0 - 11.0 FL LAB HEMETOLOGY METHOD 01/18/2025 11:33 AM [facility] LAB NRBC 0.0 <1.0 % LAB HEMETOLOGY METHOD 01/18/2025 11:33 AM [facility] LAB NRBC Absolute 0.00 <0.10 K/mcL LAB HEMETOLOGY METHOD 01/18/2025 11:[address] [facility] LAB Blood Venous blood specimen / Unknown Venipuncture / Unknown 01/18/2025 9:14 AM EST 01/18/2025 10:13 AM EST us Keli Dickinson MD LAB BLOOD ORDERABLES Final Resul t [facility] [address] [place] [address], documented in this encounter Visit Diagnoses Diagnosis Type 2 diabetes mellitus without complications (CMS/HCC V24, CMS/HCC V28) Essential (primary) hypertension Unspecified essential hypertension Hypo-osmolality and hyponatremia documented in this encounter 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
--- OUTSIDE RECORDS SUMMARY | 2025-04-03 12:42 | XMS_ITS | Data Portability ---
Author Organization [place] - [facility], [facility] Address [address] [place] [address] Care Team Providers Care Real Estate Closer Name Role Phone PHILIPP OVIEDO Primary Care Provider [facility] OTHER [phone] Assessment Encounter Date Assessment Date Assessment LastModified by Organization Details LastModified Time 11/30/2018 11/30/2018 Overview/History : 83-year-old female, who is new to [facility], with a past medical history includes [...] I have accessed patient records on the [employer]. This information was pertinent in my medical decision making today. Time On Scene with Patient: 00:29:06 [email or web address] Not available 11/30/2018 20:42:40 08/09/2020 08/09/2020 Overview/History: This is an 84-year-old female that is known to [facility] but new to this provider. [facility] were contacted today as the patient [...] did discuss with the patient's nurse that [facility] work to evaluate her, no indication for IV fluids at this time. I also discussed that [facility] does not carry insulin and that [...] after care of this patient according to [facility] infection prevention protocols. Lab Results BMP + ionized calcium, serum or plasma glu: 387mg/dL ref: 70-105 BUN: 36mg/dL ref: 8-26 crea: 1.0mg/dL ref: 0.6-1.3 Na: 131mmol/L ref: 138-146 K: 4.9mmol/L ref: 3.5-4.9 cL: 95mmol/L ref: 98-109 TCO2: 21mmol/L ref: 24-29 angap: 20mmol/L ref: 10-20 ica: 1.21mmol/L ref: 1.12-1.32 HCT: 40%pcv ref: 37-47 Hb: 13.6g/dL ref: 12-17 Time On Scene with Patient: 00:48:48 [email or web address] Not available 08/09/2020 21:29:37 Plan of Treatment Reminders Order Date Submit Date Provider Last Modified By Organization Details Last Modified Time Details Appointments None recorded. Lab BMP + ionized calcium, serum or plasma 2019 020 [facility] [address], [place], [address], 0 16:03:38 Referral None recorded. Procedures None recorded. Surgeries None recorded. Imaging None recorded. Medication Orders diclofenac 1 % topical gel 2019 020 INTERFACE [id number], [address] [place], [address], 0 16:10:01 Patient TargetsNo targets recorded. Patient Instructions Encounter Date Encounter Id Patient Instructions Last Modified By Organization Details Last Modified Time 11/30/2018 [id number] No evidence of a ny objects in your ear. Follow up with your ENT/PCP as needed. Thank you for your visit with [facility] today. We cannot always find the exact [...] in your condition between 8am-10pm, please call [facility] at [phone] to help navigate your care. Not available 11/30/2018 19:46:27 08/09/2020 [id number] WE CAME TO SEE Y OU TODAY [...] ROOM. Thank you for your [facility]. We cannot always find the [...] in your condition between 8am-10pm, please call [facility] at [phone] to help navigate your care. [email or web address] Not available 08/09/2020 16:09:54 Reason for Referral None Reported. Results Created Date Observation Date Name Description Value Unit Range Abnormal Flag Note LastModifiedBy Organization Detail LastModifiedTime 08/09/2008/09/2020 BMP + ioniz ed calci um, serum or plasm a glu 387 mg/dL 70-105 Not Available [facility] [place], [address], 08/09/2020 16:03:38 08/09/20 20 08/09/2020 BMP + ioniz ed calci um, serum or plasm a BUN 36 mg/dL 8-26 Not Available [facility] [address] [place], [address], 08/09/2020 16:03:38 08/09/20 20 08/09/2020 BMP + ioniz ed calci um, serum or plasm a crea 1.0 mg/dL 0.6-1. 3 Not Available [facility] [address] [place], [address], 08/09/2020 16:03:38 08/09/20 20 08/09/2020 BMP + ioniz ed calci um, serum or plasm a Na 131 mmol/ L 138-14 6 Not Available [facility] [address] [place], [address], 08/09/2020 16:03:38 08/09/20 20 08/09/2020 BMP + ioniz ed calci um, serum or plasm a K 4.9 mmol/ L 3.5-4. 9 Not Available [address], [address], 08/09/2020 16:03:38 08/09/20 20 08/09/2020 BMP + ioniz ed calci um, serum or plasm a cL 95 mmol/ L 98-109 Not Available [address], [address], 08/09/2020 16:03:38 08/09/20 20 08/09/2020 BMP + ioniz ed calci um, serum or plasm a TCO2 21 mmol/ L 24- Not Available [address], [address], 08/09/2020 16:03:38 08/09/20 20 08/09/2020 BMP + ioniz ed calci um, serum or plasm a angap 20 mmol/ L 10-20 Not Available [address], [address], 08/09/2020 16:03:38 08/09/20 20 08/09/2020 BMP + ioniz ed calci um, serum or plasm a ica 1.21 mmol/ L 1.12-1 .32 Not Available [address], [address], 08/09/2020 16:03:38 08/09/20 20 08/09/2020 BMP + ioniz ed calci um, serum or plasm a HCT 40 %pcv 37-[address], [address], 08/09/2020 16:03:38 08/09/20 20 08/09/2020 BMP + ioniz ed calci um, serum or plasm a Hb 13.6 g/dL 12-[address], [address], 08/09/2020 16:03:38 Result Notes None recorded. Procedures Surgical History Date Name Laterality Status Provider Name and Address Organization Details Recorded Time 08/09/20 20 Venipuncture - DH completed DERRELL SANTANA NP [address], [place], [address], [place] [facility] 08/09/2020 18:34:12 Imaging Results None recorded. [...] Not Available Not Avai lable Fluad Quad 6859-8461(6 5yr up)(PF) 60 mcg (15 mcg x [...] Smoker DOMENICO JOHN, KAELYN [address], [place], [address], [place] [facility] 11/30/2018 18:10:06 Do You Have An Advance Directive? Yes Information not available 11/30/2018 Within The Past 12 Months, Has It Happened That The Food You Bought Just Didn't Last And You Didn't Have Money To Get More. Normal [place] [facility] Information not available 11/30/2018 Within The Past 12 Months, Have You Worried That Your Food Would Run Out Before You Got Money To Buy More. No: Trouble Affording Healthy Foods [facility] – Information not available 11/30/2018 Fall Risk: Do You Feel Unsteady When Standing Or Walking? No [facility] – Information not available 11/30/2018 Marital Status [facility] – Information not available 11/30/2018 What Was The Date Of Your Most Recent Tobacco Screening? 11/30/2018 Information not available 06/09/2019 How Much Tobacco Do You Smoke? 1 PPW [facility] – Information not available 11/30/2018 How Many Years Have You Smoked Tobacco? 15 [facility] – Information not available 11/30/2018 Sex: Unknown Functional Status None recorded. Mental Status None recorded. Family History Relationship Description Onset Age of this Age Resolved Age Notes LastModified by Organization Details LastModified Time Mother Coronary arterioscler osis [email or web address] Not available 11/30 18:09:56 Medical History Condition [...] SNOMED-CT Code Diagnosis ICD10 Code Diagnosis Note 34800 DOMENICO JOHN NP [facility] [address] [place] [address] 11/30/2018 17:52:50 12/01/2018 16:36:34 Foreign body in ear 69171932 T16.1XXA [id number] DERRELL SANTANA NP [facility] [address] [facility] [place] [address] 08/09/2020 15:21:51 08/10/2020 14:27:21 Hyperglycemia 78178364 R73.9 Right side sciatica 3202 505650 64433 M54.31 Health Concerns Section Related Observation LastModified by Organization Detai ls LastModified Time None Recorded Concern Status LastModified by Organization Details LastModified Time None Recorded Advance Directives Directive Y: Payers Insurance Date Sequence Insurance Name Policy Number Policy Genao Covered Member ID Genao Member ID Guarantor Name 11/30/2018 1 *SELF PAY* Lisa Crossyuli [id number] Lisa Mg 09/06/2020 2 [facility] (MEDICARE SUPPLEMENT) Lisa Trianadelroy [id number] Lisa Holliday 08/09/2020 1 [place] [employer] Lisa Torrez Konghilariajose [id number] Lisa Mg 08/10/2020 1 MEDICARE B-[place]: [facility] Lisa A Mg [id number] Lisa Mg 09/06/2020 2 UNSPECIFIED REMIT PAYOR Lisa Crossyuli Notes Date Note Type Note Provider Name and Address Organization Details Recorded Time 11/30/2018 text/html 83-year-old female, who is new to [facility] was evaluated for possibility of foreign body in the right ear. The patient is hard of hearing and wears hearing aids to both years. While cleaning her hearing aids earlier she felt as if the silicone earpiece became embedded in her ear canal. She denies any other complaints. DOMENICO JOHN NP [address] [place] [address], [address], [place] [facility] 12/08/2018 19:26:11 08/09/2020 text/html This is an 84-year-old female that is known to [facility] but new to this provider. She has a medical history significant for diabetes, hypertension and hyperlipidemia. The telehealth case manager from her PCP office had contacted [facility] because the patient had called in [...] both the nurse and the patient that [facility] does not carry insulin nor do we [...] recently. DERRELL SANTANA, KAELYN [address] [facility], [place], [address], [place] [facility] 08/09/2020 21:29:50 OBGyn Episode No OBEpisode recorded.
--- OUTSIDE RECORDS SUMMARY | 2025-04-03 12:42 | XMS_ITS | Encounter Summary ---
Author Organization [facility] Address [address] [place] [address] Care Team Providers Care Orthopedics Teacher Name Role Phone Keli Dickinson MD Primary Care Provider [phone] Encounter Details Date Type Department Care Team (Late st Contact Info) Description 11/15/2024 Lab Requisition [facility] Lab [address] [place] [address] Marine Ryder MD [address] [place] [address] Encounter for other general examination Social History [...] LAB HEMETOLOGY METHOD 11/15/2024 10:33 AM EST [facility] RBC 3.20(L) 3.80 - 4.80 M/mcL LAB HEMETOLOGY METHOD 11/15/2024 10:33 AM EST [facility] Hemoglobin 8.1(L) 11.5 - 16.0 g/dL LAB HEMETOLOGY METHOD 11/15/2024 10:33 AM [facility] LAB Hematocrit 26.4(L) 35.0 - 47.0 % LAB HEMETOLOGY METHOD 11/15/2024 10:33 AM [facility] LAB MCV 83.5 79.0 - 98.0 FL LAB HEMETOLOGY METHOD 11/15/2024 10:33 AM [facility] LAB MCH 25.6(L) 27.0 - 32.0 pcg LAB HEMETOLOGY METHOD 11/15/2024 10:33 AM [facility] LAB MCHC 30.7(L) 32.0 - 37.0 g/dL LAB HEMETOLOGY METHOD 11/15/2024 10:33 AM [facility] LAB RDW 20.1(H) 11.0 - 15.0 % LAB HEMETOLOGY METHOD 11/15/2024 10:33 AM [facility] LAB Platelets 380 130 - 400 K/mcL LAB HEMETOLOGY METHOD 11/15/2024 10:33 AM [facility] LAB MPV 10.6 7.0 - 11.0 FL LAB HEMETOLOGY METHOD 11/15/2024 10:33 AM [facility] LAB NRBC 0.0 <1.0 % LAB HEMETOLOGY METHOD 11/15/2024 10:33 AM [facility] LAB NRBC Absolute 0.00 <0.10 K/mcL LAB HEMETOLOGY METHOD 11/15/2024 10:33 AM [facility] Blood Venous blood specimen / Unknown Venipuncture / Unknown 11/15/2024 4:57 AM EST 11/15/2024 9:39 AM EST us Marine Ryder MD LAB BLOOD ORDERABLES Final Resu lt [facility] [address] [place] [address], * (ABNORMAL) Basic metabolic panel (11/15/2024 4:57 AM EST) Sodium 135 133 - 145 mmol/L LAB CHEMISTRY METHOD 11/15/2024 10:55 AM [facility] Potassium 4.6 3.5 - 5.5 mmol/L LAB CHEMISTRY METHOD 11/15/2024 10:55 AM [facility] Chloride 104 96 - 110 mmol/L LAB CHEMISTRY METHOD 11/15/2024 10:55 AM [facility] CO2 25 21 - 32 mmol/L LAB CHEMISTRY METHOD 11/15/2024 10:55 AM [facility] Anion Gap 6 3 - 11 LAB CHEMISTRY METHOD 11/15/2024 10:55 AM [facility] Glucose 101(H) 70 - 100 mg/dL LAB CHEMISTRY METHOD 11/15/2024 10:55 AM [facility] BUN 31(H) 5 - 25 mg/dL LAB CHEMISTRY METHOD 11/15/2024 10:55 AM [facility] Creatinine 0.88 0.50 - 1.10 mg/dL LAB CHEMISTRY METHOD 11/15/2024 10:55 AM [facility] LAB eGFR 63 >=60 mL/min/1. 73m2 LAB CHEMISTRY METHOD 11/15/2024 10:55 AM [facility] Comment:Calculation based on the??Chronic Kidney Disease Epidemiology Collaboration (CKD-EPI) equation refit??without adjustment for race. BUN/Creatinine Ratio 35.2 LAB CHEMISTRY METHOD 11/15/2024 10:55 AM [facility] Calcium 8.3(L) 8.5 - 10.5 mg/dL LAB CHEMISTRY METHOD 11/15/2024 10:55 AM [facility] Blood Venous blood specimen / Unknown Venipuncture / Unknown 11/15/2024 4:57 AM EST 11/15/2024 9:39 AM EST us Marine Ryder MD LAB BLOOD ORDERABLES Final Resu lt [facility] [address] [place] [address], documented in this encounter Visit Diagnoses Diagnosis Encounter for other general examination documented in this encounter Additional Health Concerns Infection Onset Date Last Indicated Resolved Time Gastrointestinal Rule-Out 11/15/2024 11/15/2024 2:43 PM EST 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
--- OUTSIDE RECORDS SUMMARY | 2025-04-03 12:42 | XMS_ITS ---
Author Organization [facility] Address [address] [place] [address] Care Team Providers Care Rice Dryer Mechanic Name Role Phone Janes Foster MD Primary Care Provider Fernando Wall Unavailable [phone] Allergies Allergen (clinical drug ingredient) Drug/Non Drug [...] Ordered Date Performed Result Body Sit e 51531-PMEOTSX NAIL, 6 OR MORE 07/15/2024 N/A 03692-Lakryocx Plate 07/15/2024 N/A 68499-NPTM SKIN LESIONS, OVER 4 07/15/2024 N/A Encounters Encounter Location Date Provider Diagnosis [facility] [place] [address] 07/15/2024 Fernando Lim Type 1 diabetes mellitus [...] Treatment Pending Test Test Name Order Date 99605-KXXMMWS NAIL, 6 OR MORE 07/15/2024 41575-Mbuyfqpr Plate 07/15/2024 55553-RDXX SKIN LESIONS, OVER 4 07/15/20 24 Next [...] Motrin was recommended for pain or discomfort (76866) , DIABETES: Pt was advised as to [...] use of a nail nipper and/or dremel-type glass grinder, to a more viable healthy nail plate or bed tissue 6-10. Silver nitrate used for any petechial bleeding as necessary. Definitive antifungal treatment options have been reviewed and discussed with the patient. The patient chooses, no pharmaceutical tx - 32708 Keratoma Treatment Parring or Cutting o f Benign Hyperkeratotic Lesion(s) 42955 ( >4 Lesions) - The Benign hyperkeratotic lesions, as described above were pared, and/or cut utilizing a sterile #15 blade, tissue nippers, and/or dremel Progress Notes * Lisa HOLLIDAY ADOB:[birth year] (88 yo F)Acc No.[id number]:07/15/2024 Progress Note Patient:?Lisa Holliday Provider:?Fernando Lim DPM :1935???Age:88 Y???Sex:Female D ate:07/15/2024 Address: [address] , [id number] Pcp:Janes Foster MD Subjective: * Chief Complaints: [...] thyroidectomy needle Biopsy breast tissue 01/2017,02/2017[facility] 03/2017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 10/2011Vertigo 07[place] [place] Low / Heart [...] , T5? Plan: * Treatment: 2.?Ingrown nail?Procedure: 74046-Eqhfjgrn Plate * Procedures:?Debride Nail 6-10:?Nail debridement?Performance of this nail treatment by a nonprofessional would put this patients foot and overall health at risk. Therefore, nail debridement was performed extensively to reduce/remove overall nail length, girth, thickness, subungual debris, and necrotic tissue, by manual and/or electrical means through the use of a nail nipper and/or dremel-type glass grinder, to a more viable healthy nail plate or bed tissue 6-10. Silver nitrate used for any petechial bleeding as necessary. Definitive antifungal treatment options have been reviewed and discussed with the patient. The patient chooses, no pharmaceutical tx - 85272.?Keratoma Treatment:?Parring or Cutting of Benign Hyperkeratotic Lesion(s)?61062 ( >4 Lesions) - The Benign hyperkeratotic [...] Motrin was recommended for pain or discomfort (35164) , DIABETES: Pt was advised as to the risk of delayed or nonhealing due to diabetes. Pt is to call the office with any questions, concerns, or complications.? * Procedure Codes:?49121 DEBRI DE NAIL, 6 OR MORE, Modifiers: XS 26893 Avulsion Plate, Modifiers: XS , [id number] TRIM SKIN LESIONS, OVER 4, Modifiers: XS * Follow Up:?prn * Images: * Sign off status: Completed true * Provider:?Fernando Lim DPM Date:?2023 Generated for Angélica ken/Jonnie/Nat on:?04/03/2025 12:42 PM EDT History and Physical Notes * [...]
--- OUTSIDE RECORDS SUMMARY | 2025-04-03 12:42 | XMS_ITS | Encounter Summary ---
Author Organization [facility] Address [address] [place] [address] Care Team Providers Care Home Specialist Name Role Phone Keli Dickinson MD Primary Care Provider [phone] Encounter Details Date Type Department Care Team (Late st Contact Info) Description 11/13/2024 Lab Requisition [facility] Lab [address] [place] [address] Marine Ryder MD [address] [place] [address] Encounter for other general examination Social History [...] AM EST) WBC 8.7 4.8 - 10.8 K/[facility] LAB HEMETOLOGY METHOD 11/13/2024 8:42 AM EST [facility] LAB RBC 3.00(L) 3.80 - 4.80 M/[facility] LAB HEMETOLOGY METHOD 11/13/2024 8:42 AM EST [facility] LAB Hemoglobin 7.7(L) 11.5 - 16.0 g/dL LAB HEMETOLOGY METHOD 11/13/2024 8:42 AM [facility] LAB Hematocrit 25.4(L) 35.0 - 47.0 % LAB HEMETOLOGY METHOD 11/13/2024 8:42 AM [facility] LAB MCV 83.8 79.0 - 98.0 FL LAB HEMETOLOGY METHOD 11/13/2024 8:42 AM [facility] LAB MCH 25.4(L) 27.0 - 32.0 pcg LAB HEMETOLOGY METHOD 11/13/2024 8:42 AM [facility] LAB MCHC 30.3(L) 32.0 - 37.0 g/dL LAB HEMETOLOGY METHOD 11/13/2024 8:42 AM [facility] LAB RDW 20.0(H) 11.0 - 15.0 % LAB HEMETOLOGY METHOD 11/13/2024 8:42 AM [facility] LAB Platelets 335 130 - 400 K/mcL LAB HEMETOLOGY METHOD 11/13/2024 8:42 AM [facility] LAB MPV 10.7 7.0 - 11.0 FL LAB HEMETOLOGY METHOD 11/13/2024 8:42 AM [facility] LAB NRBC 0.0 <1.0 % LAB HEMETOLOGY METHOD 11/13/2024 8:42 AM [facility] LAB NRBC Absolute 0.00 <0.10 K/mcL LAB HEMETOLOGY METHOD 11/13/2024 8:42 AM [facility] Neutrophils Relative 70.3 % LAB HEMETOLOGY METHOD 11/13/2024 8:42 AM [facility] Lymphocytes Relative 16.4 % LAB HEMETOLOGY METHOD 11/13/2024 8:42 AM [facility] Monocytes Relative 10.4 % LAB HEMETOLOGY METHOD 11/13/2024 8:42 AM [facility] Eosinophils Relative 1.7 % LAB HEMETOLOGY METHOD 11/13/2024 8:42 AM EST [facility] LAB Basophils Relative 0.6 % LAB HEMETOLOGY METHOD 11/13/2024 8:42 AM [facility] Immature Granulocytes Relative 0.6 % LAB HEMETOLOGY METHOD 11/13/2024 8:42 AM [facility] LAB Neutrophils Absolute 6.14 1.50 - 7.00 K/mcL LAB HEMETOLOGY METHOD 11/13/2024 8:42 AM EST [facility] LAB Lymphocytes Absolute 1.43 1.00 - 5.00 K/mcL LAB HEMETOLOGY METHOD 11/13/2024 8:42 AM [facility] Monocytes Absolute 0.91 0.20 - 1.00 K/mcL LAB HEMETOLOGY METHOD 11/13/2024 8:42 AM EST [facility] LAB Eosinophils Absolute 0.15 0.00 - 0.50 K/mcL LAB HEMETOLOGY METHOD 11/13/2024 8:42 AM EST [facility] Basophils Absolute 0.05 0.00 - 0.20 K/mcL LAB HEMETOLOGY METHOD 11/13/2024 8:42 AM [facility] LAB Immature Granulocytes Absolute 0.05(H) 0.00 - 0.03 K/mcL LAB HEMETOLOGY METHOD 11/13/2024 8:42 AM [facility] Blood Venous blood specimen / Unknown Venipuncture / Unknown 11/13/2024 5:46 AM EST 11/13/2024 7:38 AM EST us Marine Ryder MD LAB BLOOD ORDERABLES Final Resu lt [facility] [address] [place] [address], documented in this encounter Visit Diagnoses Diagnosis Encounter for other general examination documented in this encounter Additional Health Concerns Infection Onset Date Last Indicated Resolved Time Gastrointestinal Rule-Out 11/15/2024 11/15/2024 2:43 PM EST 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
--- OUTSIDE RECORDS SUMMARY | 2025-04-03 12:42 | XMS_ITS | Patient Health Record ---
Author Organization [facility] Address [address] [place] [address] Care Team Providers Care Assembler Fishing Floats Name Role Phone Janes Foster MD Primary Care Provider Fernando Wall Unavailable [phone] Allergies Allergen (clinical drug ingredient) Drug/Non Drug [...] Problem Acquired hammer toe of right foot (0867909070825697 ) Other hammer toe(s) (acquired), right foot (M20.41) Active confirmed Response to treatment, Improvemen t Problem Acquired hammer toe of left foot (8668920926672729 ) Other hammer toe(s) (acquired), left foot (M20.42) Active confirmed Response to treatment, Improvemen t Problem Polyneuropathy due to diabetes mellitus type I (912273577) 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 Vital Signs Blood pressure diastolic 68 mm Hg 07/15/2024 Height 5 ft 6 in in 07/15/2024 Blood pressure systolic 128 mm Hg 07/15/2024 Weight 175 lbs 07/15/2024 BMI 28.24 kg/m2 07/15/2024 Procedures Procedure Date Ordered Date Performed Result Body Sit e 20185-EBNTGCD NAIL, 6 OR MORE 05/03/2024 N/A 39215-Welmwinx Plate 05/03/2024 N/A 97325-DEYR SKIN LESIONS, OVER 4 05/03/2024 N/A 06597-MXAKYEP NAIL, 6 OR MORE 07/15/2024 N/A 59264-Xwpanqvt Plate 07/15/2024 N/A 74820-ZXCV SKIN LESIONS, OVER 4 07/15/2024 N/A Encounters Encounter Location Date Provider Diagnosis [facility] [address] [address] 05/03/2024 Fernando Lim Type 1 diabetes mellitus with diabetic polyneuropathy E10.42 ; Tinea unguium B35.1 and Ingrown nail L60.0 [facility] [address] [address] 07/15/2024 Fernando Lim Type 1 diabetes mellitus with diabetic polyneuropathy E10.42 ; Tinea unguium B35.1 and Ingrown nail L60.0 [facility] [place] [address] [place] [address] 10/17/2024 Fernando Lim Assessments Encounter Date Diagnosis [...] Test Name Order Date Hemoglobin A1c 11/30/2015 03793-BUSSUXX NAIL, 6 OR MORE 02/01/2016 21756-YTYAKNL NAIL, 6 OR MORE 04/08/2016 07395-XNOEKBV NAIL, 6 OR MORE 07/08/2016 41637-TEXNDRA NAIL, 6 OR MORE 09/16/2016 35156-SDVXUPV NAIL, 6 OR MORE 08/21/2015 11239-UUEAJAM NAIL, 6 OR MORE 11/30/2015 24526-QXLBTDM NAIL, 6 OR MORE 08/25/2014 97794-YAZQYOW NAIL, 6 OR MORE 10/27/2014 93075-UGIKPVO NAIL, 6 OR MORE 01/12/2015 85098-HZRWGPP NAIL, 6 OR MORE 03/16/2015 11449-XJITMBT NAIL, 6 OR MORE 05/25/2015 11216-KSLYPZK NAIL, 6 OR MORE 06/18/2012 74551-WZZHWKH NAIL, 6 OR MORE 08/27/2012 52276-YBAPPFI NAIL, 6 OR MORE 01/04/2013 99136-LXIWADP NAIL, 6 OR MORE 03/25/2013 99809-WXQLQWC NAIL, 6 OR MORE 06/17/2013 33101-KRKJYLE NAIL, 6 OR MORE 08/26/2013 40443-WUDGYMT NAIL, 6 OR MORE 12/02/2013 49613-RRDUFVZ NAIL, 6 OR MORE 02/10/2014 55612-CIRKHPI NAIL, 6 OR MORE 06/06/2014 42271-WSURUXG NAIL, 6 OR MORE 12/19/2016 10060-OMVTPGE NAIL, 6 OR MORE 04/03/2017 30273-NDLPMIR NAIL, 6 OR MORE 06/05/2017 79602-UTHCAJF NAIL, 6 OR MORE 08/14/2017 71403-WVADTEF NAIL, 6 OR MORE 10/23/2017 68801-QDFMQQS NAIL, 6 OR MORE 01/01/2018 43299-XOUJBFD NAIL, 6 OR MORE 05/11/2018 16563-DFXRQBA NAIL, 6 OR MORE 07/27/2018 32655-KQEOJPX NAIL, 6 OR MORE 10/12/2018 90712-VKSTEUD NAIL, 6 OR MORE 01/14/2019 39108-OJUAKEV NAIL, 6 OR MORE 04/08/2019 74014-JRUEIIP NAIL, 6 OR MORE 08/16/2019 94262-VGAQJVG NAIL, 6 OR MORE 10/25/2019 37384-RJJIQHR NAIL, 6 OR MORE 01/03/2020 73539-IDUNILW NAIL, 6 OR MORE 05/01/2020 83055-LUCWXBE NAIL, 6 OR MORE 08/17/2020 34506-JTQMHCG NAIL, 6 OR MORE 10/30/2020 23446-LGFVSIS NAIL, 6 OR MORE 01/01/2021 32581-YALIKCB NAIL, 6 OR MORE 03/29/2021 08198-AOHLEPK NAIL, 6 OR MORE 06/14/2021 78106-XTLZBWC NAIL, 6 OR MORE 11/29/2021 10891-CMFFPST NAIL, 6 OR MORE 02/11/2022 97314-XGFHBVV NAIL, 6 OR MORE 06/10/2022 64555-SCFAJSG NAIL, 6 OR MORE 09/13/2021 72308-VXUBFFG NAIL, 6 OR MORE 08/22/2022 57111-ZZWCAAO NAIL, 6 OR MORE 10/31/2022 65867-KGEJJEC NAIL, 6 OR MORE 01/09/2023 16086-NACMFEI NAIL, 6 OR MORE 03/24/2023 81661-JRXQUVJ NAIL, 6 OR MORE 06/05/2023 02407-HBWQYYG NAIL, 6 OR MORE 09/29/2023 98761-DVUQXOT NAIL, 6 OR MORE 02/19/2024 85509-OTXNNNS NAIL, 6 OR MORE 05/03/2024 90951-ZGBYKSF NAIL, 6 OR MORE 07/15/2024 24553-Nqtmpunc Plate 07/15/2024 66511-Obugblup Plate 09/29/2023 48670-Ynshazrg Plate 05/03/2024 24222-Cosocqbx Plate 02/19/2024 22254-Ahiyttse Plate 06/05/2023 62161-Ediejsmo Plate 10/30/2020 34492-Ahchmsne Plate 03/24/2023 29462-Ymwypwvd Plate 08/22/2022 37371-Jznsmotr Plate 09/13/2021 45419-Fvbbocip Plate 06/10/2022 07494-Fytoabne Plate 02/11/2022 07783-Onsayjrw Plate 11/29/2021 11183-Awbwpsdv Plate 06/14/2021 24033-Bmrkqayf Plate 03/29/2021 93862-Qngncotp Plate 05/01/2020 03659-Ummbhplk Plate 06/06/2014 12002-Xieydrhs Plate 02/10/2014 74725-Cfltgpkm Plate 12/02/2013 77982-Drjozwck Plate 05/25/2015 83108-Jwfhypnp Plate 03/16/2015 61689-Thkmsrge Plate 01/12/2015 64075-Ktshkioh Plate 01/04/2013 32867-Cwraswpb Plate 08/21/2015 89612-Qjwjiimj Plate 11/30/2015 51342-Hbrwivem Plate Each Additional 62891-Hozvlxtw Plate Each Additional 95631-Vznsepmf Plate Each Additional 11/2014 76896-Vwfiuweb Plate Each Additional 08/2015 62253-Qrlpotpo Plate Each Additional 44060-Amfkndwp Plate Each Additional 32084-Sayikjmg Plate Each Additional 20059-Sinwsqmr Plate Each Additional 63142-Flbmmxwb Plate Each Additional 21610-Whjxrazx Plate Each Additional 26875-Nwiphuph Plate Each Additional 18169-Fgdbolzd Plate Each Additional 76918 I&D ABSCESS- SIMPLE,SINGLE 015 98228-PAOW SKIN LESIONS, OVER 4 06/10/20 72534-JDSI SKIN LESIONS, OVER 4 08/22/20 22028-OQXK SKIN LESIONS, OVER 4 03/24/20 55384-WPJP SKIN LESIONS, OVER 4 01/09/20 74629-COUJ SKIN LESIONS, OVER 4 10/31/20 26311-WIDQ SKIN LESIONS, OVER 4 02/12/20 46199-FXBH SKIN LESIONS, OVER 4 06/05/20 32328-ZCCF SKIN LESIONS, OVER 4 09/29/20 55894-NECN SKIN LESIONS, OVER 4 02/19/20 98699-KRBA SKIN LESIONS, OVER 4 05/03/20 37030-VRPZ SKIN LESIONS, OVER 4 07/15/20 27851-VJVL SKIN LESIONS, 2 TO 4 11/29/19 27218-JFUR SKIN LESIONS, 2 TO 4 03/29/20 06375-CELL SKIN LESIONS, 2 TO 4 01/01/20 16119-SUWG SKIN LESIONS, 2 TO 4 06/14/20 05461-ZLKA SKIN LESIONS, 2 TO 4 09/13/20 68025-HCVT SKIN LESIONS, 2 TO 4 05/01/20 60083-CHDH SKIN LESIONS, 2 TO 4 01/03/20 61233-GCGP SKIN LESIONS, 2 TO 4 10/30/20 91488-YZMW SKIN LESIONS, 2 TO 4 08/17/20 55923-ZMHQ SKIN LESIONS, 2 TO 4 10/25/20 76987-PXIK SKIN LESIONS, 2 TO 4 08/16/20 78065-NWWQ SKIN LESIONS, 2 TO 4 04/08/20 19 63947-WRUA SKIN LESIONS, 2 TO 4 01/15/20 19 45836-AGDX SKIN LESIONS, 2 TO 4 10/12/20 18 86980-WYWD SKIN LESIONS, 2 TO 4 07/27/20 18 34135-DQMB SKIN LESIONS, 2 TO 4 05/11/20 42078-AGZO SKIN LESIONS, 2 TO 4 01/01/20 15842-NQHD SKIN LESIONS, 2 TO 4 10/23/20 86275-IABC SKIN LESIONS, 2 TO 4 08/14/20 16799-PLTY SKIN LESIONS, 2 TO 4 06/05/20 35687-XZOM SKIN LESIONS, 2 TO 4 12/19/19 17 39004-KBUF SKIN LESIONS, 2 TO 4 04/03/20 17 38492-CAJA SKIN LESIONS, 2 TO 4 08/21/20 15 05223-VSYC SKIN LESIONS, 2 TO 4 11/30/19 16 10741-UAXZ SKIN LESIONS, 2 TO 4 09/16/20 16 16704-FMYY SKIN LESIONS, 2 TO 4 07/08/20 16 91529-FQFQ SKIN LESIONS, 2 TO 4 04/08/20 16 67789-CZXX SKIN LESIONS, 2 TO 4 02/01/20 16 86697-PKNN SKIN LESIONS, 2 TO 4 05/25/20 15 09940-JKNW SKIN LESIONS, 2 TO 4 03/16/20 15 39176-STUE SKIN LESIONS, 2 TO 4 01/12/20 15 12413-ZINQ SKIN LESIONS, 2 TO 4 10/27/20 14 20490-MXZP SKIN LESIONS, 2 TO 4 08/25/20 14 20128-GSQN SKIN LESIONS, 2 TO 4 06/18/20 12 62041-SKXW SKIN LESIONS, 2 TO 4 03/25/20 13 09229-HKGI SKIN LESIONS, 2 TO 4 01/04/20 13 44792-TKVP SKIN LESIONS, 2 TO 4 08/27/20 12 29605-IHFQ SKIN LESIONS, 2 TO 4 07/25/20 11 14422-YZHE SKIN LESIONS, 2 TO 4 10/03/20 11 05584-OKJY SKIN LESIONS, 2 TO 4 12/23/19 12 68150-RNLY SKIN LESIONS, 2 TO 4 03/19/20 12 31053-JQDS SKIN LESIONS, 2 TO 4 06/06/20 14 09191-VULG SKIN LESIONS, 2 TO 4 02/11/20 14 49425-ALVC SKIN LESIONS, 2 TO 4 12/02/19 14 31040-OLIH SKIN LESIONS, 2 TO 4 08/26/20 13 63143-ETPO SKIN LESIONS, 2 TO 4 06/17/20 13 Z3726-JZFYCMYW DYSTROPHIC NAILS ANY # N1594-TRSIMQPO DYSTROPHIC NAILS ANY # V4230-OORXJBHD DYSTROPHIC NAILS ANY # O7631-RYLUJQET DYSTROPHIC NAILS ANY # Insurance Providers Payer Name Payer Address Payer Phone Subscriber Number Group Number Insured Name Patient Relationship to Insured Coverage Start Date Coverage End Date Medicare National [employer] [address] [place] [address] [id number] Lisa Holliday Self - patient is the insured [facility] [address] [facility] [place], [place] [address] [id number] Lisa Holliday Self - patient is the [...] replacement Surgery 03/31 Hospitalization History Reason Date(Month/Year) [facility] - BP was Low / Heart blockage few hrs 11/2022 Vertigo 07/2012 Vertigo. 10/2011
--- OUTSIDE RECORDS SUMMARY | 2025-04-03 12:42 | XMS_ITS | Encounter Summary ---
Author Organization [facility] Address [address] [place] [address] Care Team Providers Care Product Architect Name Role Phone Keli Dickinson MD Primary Care Provider [phone] Encounter Details Date Type Department Care Team (Late st Contact Info) Description 02/06/2025 Lab Requisition [facility] Lab [address] [place] [address] Keli Dickinson MD [address] [place] [address] Syncope and collapse Social History [...] LAB CHEMISTRY METHOD 02/06/2025 12:38 PM EDT [facility] Potassium 4.4 3.5 - 5.5 mmol/L LAB CHEMISTRY METHOD 02/06/2025 12:38 PM EDT [facility] Chloride 103 96 - 110 mmol/L LAB CHEMISTRY METHOD 02/06/2025 12:38 PM T [facility] CO2 26 21 - 32 mmol/L LAB CHEMISTRY METHOD 02/06/2025 12:38 PM EDT [facility] Anion Gap 6 3 - 11 LAB CHEMISTRY METHOD 02/06/2025 12:38 PM [facility] Glucose 58(L) 70 - 100 mg/dL LAB CHEMISTRY METHOD 02/06/2025 12:38 PM EDT [facility] BUN 17 5 - 25 mg/dL LAB CHEMISTRY METHOD 02/06/2025 12:38 PM EDT [facility] Creatinine 0.66 0.50 - 1.10 mg/dL LAB [facility] 84 >=60 mL/min/1. 73m2 LAB CHEMISTRY METHOD 02/06/2025 12:38 PM EDT [facility] Comment:Calculation based on the??Chronic Kidney Disease Epidemiology Collaboration (CKD-EPI) equation refit??without adjustment for race. BUN/Creatinine Ratio 25.8 LAB CHEMISTRY METHOD 02/06/2025 12:38 PM [facility] Calcium 8.7 8.5 - 10.5 mg/dL LAB CHEMISTRY METHOD 02/06/2025 12:38 PM [facility] Blood Venous blood specimen / Unknown Venipuncture / Unknown 02/06/2025 7:07 AM EDT 02/06/2025 10:22 AM EDT us Keli Dickinson MD LAB BLOOD ORDERABLES Final Resul t [facility] [address] [place] [address], * (ABNORMAL) Complete blood count (02/06/2025 7:07 AM EDT) WBC 8.2 4.8 - 10.8 K/mcL LAB HEMETOLOGY METHOD 02/06/2025 11:56 AM [facility] RBC 4.10 3.80 - 4.80 M/mcL LAB HEMETOLOGY METHOD 02/06/2025 11:56 AM [facility] Hemoglobin 10.4(L) 11.5 - 16.0 g/dL LAB HEMETOLOGY METHOD 02/06/2025 11:56 AM [facility] Hematocrit 34.0(L) 35.0 - 47.0 % LAB HEMETOLOGY METHOD 02/06/2025 11:56 AM [facility] MCV 82.9 79.0 - 98.0 FL LAB HEMETOLOGY METHOD 02/06/2025 11:56 AM [facility] MCH 25.4(L) 27.0 - 32.0 pcg LAB HEMETOLOGY METHOD 02/06/2025 11:56 AM [facility] MCHC 30.6(L) 32.0 - 37.0 g/dL LAB HEMETOLOGY METHOD 02/06/2025 11:56 AM [facility] RDW 15.9(H) 11.0 - 15.0 % LAB HEMETOLOGY METHOD 02/06/2025 11:56 AM [facility] Platelets 228 130 - 400 K/mcL LAB HEMETOLOGY METHOD 02/06/2025 11:56 AM [facility] MPV 11.6(H) 7.0 - 11.0 FL LAB HEMETOLOGY METHOD 02/06/2025 11:56 AM [facility] NRBC 0.0 <1.0 % LAB HEMETOLOGY METHOD 02/06/2025 11:56 AM [facility] NRBC Absolute 0.00 <0.10 K/mcL LAB HEMETOLOGY METHOD 02/06/2025 11:56 AM [facility] Blood Venous blood specimen / Unknown Venipuncture / Unknown 02/06/2025 7:07 AM EDT 02/06/2025 10:22 AM EDT us Keli Dickinson MD LAB BLOOD ORDERABLES Final Resul t [facility] [address] [place] [address], documented in this encounter Visit Diagnoses Diagnosis Syncope and collapse documented in this encounter 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
--- OUTSIDE RECORDS SUMMARY | 2025-04-03 12:42 | XMS_ITS | Encounter Summary ---
Author Organization [facility] Address [address] [place] [address] Care Team Providers Care Quantity Surveyor Name Role Phone Keli Dickinson MD Primary Care Provider [phone] Encounter Details Date Type Department Care Team (Late st Contact Info) Description 02/23/[address] [facility] [address] [place] [address] Keli Dickinson MD [address] [place] [address] Urgency of urination; Urinary tract [...] (ABNORMAL) Culture urine (02/21/2025 10:30 PM EDT) [facility] Signature Culture, Urine >100,000 CFU/mL Proteus mirabilis(A ) EMMY 02/25/2025 10:20 AM EDT [facility] Comment: Edited result: Previously reported as Proteus species on 02/24/2025 at 1034 EDT. Urine Urine specimen from urethra / Unknown Non-blood Collection / Unknown 02/21/2025 10:30 PM EDT 02/23/2025 11:46 AM EDT Narrative [facility] - 02/25/2025 10:20 AM EDT [...] MICROBIOLOGY - GENERAL ORDER BOBBY Final Result [facility] [address] [place] [address], [place] [phone] * (ABNORMAL) Urinalysis with reflex microscopic and culture (02/21/2025 10:30 PM EDT) Specific [place] Urine 1.029 1.003 - 1.030 LAB URINALYSIS - AUTOMATED METHOD 02/23/2025 11:46 AM [facility] pH, Urine >=9.0(A) 5.0 - 8.0 pH LAB URINALYSIS - AUTOMATED METHOD 02/23/2025 11:46 AM [facility] Leukocytes, Urine Large(A) Negative LAB URINALYSIS - AUTOMATED METHOD 02/23/2025 11:46 AM [facility] Nitrite, Urine Positive(A) Negative LAB URINALYSIS - AUTOMATED METHOD 02/23/2025 11:46 AM [facility] Protein, Urine >=1000(A) <=Trace mg/dL LAB URINALYSIS - AUTOMATED METHOD 02/23/2025 11:46 AM [facility] Glucose, Urine 250(A) Negative mg/dL LAB URINALYSIS - AUTOMATED METHOD 02/23/2025 11:46 AM [facility] Ketones, Urine Negative Negative mg/dL LAB URINALYSIS - AUTOMATED METHOD 02/23/2025 11:46 AM [facility] Urobilinogen , Urine 1.0 0.2 - 1.0 mg/dL LAB URINALYSIS - AUTOMATED METHOD 02/23/2025 11:46 AM [facility] Bilirubin, Urine Negative Negative LAB URINALYSIS - AUTOMATED METHOD 02/23/2025 11:46 AM [facility] Blood, Urine Negative Negative LAB URINALYSIS - AUTOMATED METHOD 02/23/2025 11:46 AM [facility] RBC, Urine 4.0 0 - 4 /HPF LAB URINALYSIS - AUTOMATED METHOD 02/23/2025 11:46 AM [facility] WBC, Urine 13.8(H) 0 - 4 /HPF LAB URINALYSIS - AUTOMATED METHOD 02/23/2025 11:46 AM EDT [facility] Squamous Epithelial, Urine >100(H) 0 - 60 /LPF LAB URINALYSIS - AUTOMATED METHOD 02/23/2025 11:46 AM EDT [facility] Crystals, Urine HEAVY TRIPLE PHOS /LPF LAB URINALYSIS - AUTOMATED METHOD 02/23/2025 11:46 AM EDT [facility] Bacteria, Urine Many(A) Negative /HPF LAB URINALYSIS - AUTOMATED METHOD 02/23/2025 11:46 AM EDT [facility] Hyaline Casts, Urine 15.0(H) 0 - 3 /LPF LAB URINALYSIS - AUTOMATED METHOD 02/23/2025 11:46 AM EDT [facility] Urine Urine specimen from urethra / Unknown Non-blood Collection / Unknown 02/21/2025 10:30 PM EDT 02/23/2025 11:14 AM EDT us Keli Dickinson MD LAB URINE ORDERABLES Final Resul t Performing Organization Address City/[facility]/ZIP Co de Phone Number [facility] [address] [place] [address], [place] [phone] * [place] urine culture tube (02/21/2025 10:30 PM EDT) Extra Tube Hold for add-ons. 02/23/2025 1:02 PM EDT [facility] Comment:Auto resulted. 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
--- OUTSIDE RECORDS SUMMARY | 2025-04-03 12:42 | XMS_ITS | Clinical Summary ---
Author Organization [facility] Address [address] [place] [address] Phone Care Team Providers Care Biodiesel Division Manager Name Role Phone Keli Dickinson MD Primary Care Provider [phone] Encounters Date Type Department Care Team Description 02/23/2025 Lab Requisition [facility] Lab [address] [place] [phone] Keli Dickinson MD Urgency of urination; Urinary tract infection, site not specified 02/07/2025 Lab Requisition [facility] Lab [address] [place] [address] Keli Dickinson MD Urinary tract infection, site not specified 02/06/2025 Lab Requisition [facility] Lab [address] [place] [address] Keli Dickinson MD Syncope and collapse 01/28/[address] [facility] Lab [address] [place] [address] Keli Dickinson MD Anemia, unspecified 01/26/2025 Lab Requisition [facility] Lab [address] [place] [address] Keli Dickinson MD Urinary tract infection, site not specified 01/18/2025 Lab Requisition [facility] Lab [address] [place] [phone] Keli Dickinson MD Type 2 diabetes mellitus [...] EST Type 2 diabetes mellitus without complications ([facility]) Essential (primary) hypertension Hypo-osmolality and hyponatremia COMPLETE BLOOD COUNT Routine 01/18/2025 9:14 AM EST Type 2 diabetes mellitus without complications ([facility]) Essential (primary) hypertension Hypo-osmolality and hyponatremia HEMOGLOBIN A1C Routine 11/19/2024 7:20 AM EST Type 2 diabetes mellitus without complications ([facility]) Anemia, unspecified from Last 3 Months or Most Recently Relevant to Health Maintenance Results * (ABNORMAL) Urinalysis with reflex microscopic and culture (02/21/2025 10:30 PM EDT) Specific [place] Urine 1.029 1.003 - 1.030 LAB URINALYSIS - AUTOMATED METHOD 02/23/2025 11:46 AM [facility] LAB pH, Urine >=9.0(A) 5.0 - 8.0 pH LAB URINALYSIS - AUTOMATED METHOD 02/23/2025 11:46 AM [facility] Leukocytes, Urine Large(A) Negative LAB URINALYSIS - AUTOMATED METHOD 02/23/2025 11:46 AM [facility] Nitrite, Urine Positive(A) Negative LAB URINALYSIS - AUTOMATED METHOD 02/23/2025 11:46 AM [facility] Protein, Urine >=1000(A) <=Trace mg/dL LAB URINALYSIS - AUTOMATED METHOD 02/23/2025 11:46 AM [facility] Glucose, Urine 250(A) Negative mg/dL LAB URINALYSIS - AUTOMATED METHOD 02/23/2025 11:46 AM [facility] Ketones, Urine Negative Negative mg/dL LAB URINALYSIS - AUTOMATED METHOD 02/23/2025 11:46 AM [facility] Urobilinogen , Urine 1.0 0.2 - 1.0 mg/dL LAB URINALYSIS - AUTOMATED METHOD 02/23/2025 11:46 AM [facility] Bilirubin, Urine Negative Negative LAB URINALYSIS - AUTOMATED METHOD 02/23/2025 11:46 AM [facility] Blood, Urine Negative Negative LAB URINALYSIS - AUTOMATED METHOD 02/23/2025 11:46 AM [facility] RBC, Urine 4.0 0 - 4 /HPF LAB URINALYSIS - AUTOMATED METHOD 02/23/2025 11:46 AM [facility] WBC, Urine 13.8(H) 0 - 4 /HPF LAB URINALYSIS - AUTOMATED METHOD 02/23/2025 11:46 AM [facility] Squamous Epithelial, Urine >100(H) 0 - 60 /LPF LAB URINALYSIS - AUTOMATED METHOD 02/23/2025 11:46 AM [facility] Crystals, Urine HEAVY TRIPLE PHOS /LPF LAB URINALYSIS - AUTOMATED METHOD 02/23/2025 11:46 AM [facility] Bacteria, Urine Many(A) Negative /HPF LAB URINALYSIS - AUTOMATED METHOD 02/23/2025 11:46 AM [facility] Hyaline Casts, Urine 15.0(H) 0 - 3 /LPF LAB URINALYSIS - AUTOMATED METHOD 02/23/2025 11:46 AM [facility] Urine Urine specimen from urethra / Unknown Non-blood Collection / Unknown 02/21/2025 10:30 PM EDT 02/23/2025 11:14 AM EDT us Keli Dickinson MD LAB URINE ORDERABLES Final Resul t [facility] [address] [place] [address], * Hawkins urine culture tube (02/21/2025 10:30 [...] Resul t [facility] [address] [place] [address], * (ABNORMAL) Culture urine (02/21/2025 10:30 PM [...] Final Result [facility] [address] [place] [address], * (ABNORMAL) Urinalysis with reflex microscopic (02/07/2025 12:00 AM EDT) Only the most recent of2 resultswithin the time period is included. Specific [place] Urine 1.017 1.003 - 1.030 LAB URINALYSIS - AUTOMATED METHOD 02/07/2025 1:34 PM EDT [facility] pH, Urine 6.0 5.0 - 8.0 pH LAB URINALYSIS - AUTOMATED METHOD 02/07/2025 1:34 PM EDT [facility] Leukocytes, Urine Large(A) Negative LAB URINALYSIS - AUTOMATED METHOD 02/07/2025 1:34 PM EDT [facility] Nitrite, Urine Negative Negative LAB URINALYSIS - AUTOMATED METHOD 02/07/2025 1:34 PM EDT [facility] Protein, Urine 30(A) <=Trace mg/dL LAB URINALYSIS - AUTOMATED METHOD 02/07/2025 1:34 PM EDT [facility] Glucose, Urine Negative Negative mg/dL LAB URINALYSIS - AUTOMATED METHOD 02/07/2025 1:34 PM [facility] Ketones, Urine Trace(A) Negative mg/dL LAB URINALYSIS - AUTOMATED METHOD 02/07/2025 1:34 PM [facility] Urobilinogen , Urine 0.2 0.2 - 1.0 mg/dL LAB URINALYSIS - AUTOMATED METHOD 02/07/2025 1:34 PM [facility] Bilirubin, Urine Negative Negative LAB URINALYSIS - AUTOMATED METHOD 02/07/2025 1:34 PM [facility] Blood, Urine Trace(A) Negative LAB URINALYSIS - AUTOMATED METHOD 02/07/2025 1:34 PM [facility] RBC, Urine 13.5(H) 0 - 4 /HPF LAB URINALYSIS - AUTOMATED METHOD 02/07/2025 1:34 PM [facility] WBC, Urine 846.5(H) 0 - 4 /HPF LAB URINALYSIS - AUTOMATED METHOD 02/07/2025 1:34 PM [facility] Squamous Epithelial, Urine >100(H) 0 - 60 /LPF LAB URINALYSIS - AUTOMATED METHOD 02/07/2025 1:34 PM [facility] Bacteria, Urine Negative Negative /HPF LAB URINALYSIS - AUTOMATED METHOD 02/07/2025 1:34 PM [facility] Hyaline Casts, Urine 12.0(H) 0 - 3 /LPF LAB URINALYSIS - AUTOMATED METHOD 02/07/2025 1:34 PM [facility] Yeast, Urine Present(A) None /HPF LAB URINALYSIS - AUTOMATED METHOD 02/07/2025 1:34 PM [facility] Urine Urine specimen obtained by clean catch procedure / Unknown 02/07/2025 02/07/2025 11:37 AM EDT us Keli Dickinson MD LAB URINE ORDERABLES Final Resul t [facility] [address] [place] [address], * (ABNORMAL) Complete blood count (02/06/2025 7:07 AM EDT) Only the most recent of3 resultswithin the time period is included. WBC 8.2 4.8 - 10.8 K/mcL LAB HEMETOLOGY METHOD 02/06/2025 11:56 AM EDT [facility] RBC 4.10 3.80 - 4.80 M/mcL LAB HEMETOLOGY METHOD 02/06/2025 11:56 AM [facility] Hemoglobin 10.4(L) 11.5 - 16.0 g/dL LAB HEMETOLOGY METHOD 02/06/2025 11:56 AM [facility] Hematocrit 34.0(L) 35.0 - 47.0 % LAB HEMETOLOGY METHOD 02/06/2025 11:56 AM [facility] MCV 82.9 79.0 - 98.0 FL LAB HEMETOLOGY METHOD 02/06/2025 11:56 AM [facility] LAB MCH 25.4(L) 27.0 - 32.0 pcg LAB HEMETOLOGY METHOD 02/06/2025 11:56 AM [facility] LAB MCHC 30.6(L) 32.0 - 37.0 g/dL LAB HEMETOLOGY METHOD 02/06/2025 11:56 AM [facility] RDW 15.9(H) 11.0 - 15.0 % LAB HEMETOLOGY METHOD 02/06/2025 11:56 AM [facility] Platelets 228 130 - 400 K/mcL LAB HEMETOLOGY METHOD 02/06/2025 11:56 AM EDT [facility] MPV 11.6(H) 7.0 - 11.0 FL LAB HEMETOLOGY METHOD 02/06/2025 11:56 AM EDT [facility] NRBC 0.0 <1.0 % LAB HEMETOLOGY METHOD 02/06/2025 11:56 AM EDT [facility] NRBC Absolute 0.00 <0.10 K/mcL LAB HEMETOLOGY METHOD 02/06/2025 11:56 AM EDT [facility] Blood Venous blood specimen / Unknown Venipuncture / Unknown 02/06/2025 7:07 AM EDT 02/06/2025 10:22 AM EDT us Keli Dickinson MD LAB BLOOD ORDERABLES Final Resul t [facility] [address] [place] [address], * (ABNORMAL) Basic metabolic panel (02/06/2025 7:07 AM EDT) Only the most recent of2 resultswithin the time period is included. Sodium 135 133 - 145 mmol/L LAB CHEMISTRY METHOD 02/06/2025 12:38 PM [facility] Potassium 4.4 3.5 - 5.5 mmol/L LAB CHEMISTRY METHOD 02/06/2025 12:38 PM [facility] Chloride 103 96 - 110 mmol/L LAB CHEMISTRY METHOD 02/06/2025 12:38 PM [facility] CO2 26 21 - 32 mmol/L LAB CHEMISTRY METHOD 02/06/2025 12:38 PM [facility] Anion Gap 6 3 - 11 LAB CHEMISTRY METHOD 02/06/2025 12:38 PM [facility] Glucose 58(L) 70 - 100 mg/dL LAB CHEMISTRY METHOD 02/06/2025 12:38 PM EDT [facility] BUN 17 5 - 25 mg/dL LAB CHEMISTRY METHOD 02/06/2025 12:38 PM EDT [facility] Creatinine 0.66 0.50 - 1.10 mg/dL LAB CHEMISTRY METHOD 02/06/2025 12:38 PM EDT [facility] eGFR 84 >=60 mL/min/1. 73m2 LAB CHEMISTRY METHOD 02/06/2025 12:38 PM EDT [facility] Comment:Calculation based on the??Chronic Kidney Disease Epidemiology Collaboration (CKD-EPI) equation refit??without adjustment for race. BUN/Creatinine Ratio 25.8 LAB CHEMISTRY METHOD 02/06/2025 12:38 PM EDT [facility] Calcium 8.7 8.5 - 10.5 mg/dL LAB CHEMISTRY METHOD 02/06/2025 12:38 PM EDT [facility] Blood Venous blood specimen / Unknown Venipuncture / Unknown 02/06/2025 7:07 AM EDT 02/06/2025 10:22 AM EDT Keli Dickinson MD LAB BLOOD ORDERABLES Final Resul t [facility] [address] [place] [address], * (ABNORMAL) D-Dimer (01/28/2025 3:28 PM EDT) D-Dimer, Quant (D-DU) 451(H) <=230 ng/mL DDU LAB COAGULATION METHOD 01/28/2025 4:10 PM EDT [facility] Blood Venous blood specimen / Unknown Venipuncture / Unknown 01/28/2025 3:28 PM EDT 01/28/2025 3:54 PM EDT Narrative [facility] - 01/28/2025 4:10 PM EDT [...] Resul t [facility] [address] [place] [address], * (ABNORMAL) Comprehensive metabolic panel (01/28/2025 3:28 [...] 01/28/2025 4:30 PM [facility] eGFR 64 >=60 mL/min/1. 73m2 LAB CHEMISTRY METHOD 01/28/2025 4:30 PM [facility] Comment:Calculation based on the??Chronic Kidney Disease Epidemiology Collaboration (CKD-EPI) equation refit??without adjustment for race. BUN/Creatinine Ratio 17.2 LAB CHEMISTRY METHOD 01/28/2025 4:30 PM EDT [facility] Calcium 8.7 8.5 - 10.5 mg/dL LAB CHEMISTRY METHOD 01/28/2025 4:30 PM EDT [facility] AST (SGOT) 14 10 - 42 unit/L LAB CHEMISTRY METHOD 01/28/2025 4:30 PM T [facility] ALT (SGPT) 13 10 - 60 unit/L LAB CHEMISTRY METHOD 01/28/2025 4:30 PM [facility] Alkaline Phosphatase 95 42 - 121 unit/L LAB CHEMISTRY METHOD 01/28/2025 4:30 PM EDT [facility] Total Protein 5.7(L) 6.0 - 8.0 g/dL LAB CHEMISTRY METHOD 01/28/2025 4:30 PM EDT [facility] Albumin 2.8(L) 3.2 - 5.0 g/dL LAB CHEMISTRY METHOD 01/28/2025 4:30 PM EDT [facility] Total Bilirubin 0.4 0.0 - 1.4 mg/dL LAB CHEMISTRY METHOD 01/28/2025 4:30 PM EDT [facility] Blood Venous blood specimen / Unknown Venipuncture / Unknown 01/28/2025 3:28 PM EDT 01/28/2025 3:54 PM EDT us Keli Dickinson MD LAB BLOOD ORDERABLES Final Resul t [facility] [address] [place] [address], * (ABNORMAL) Hemoglobin A1c (11/19/2024 7:20 AM EST) Hemoglobin A1C 6.8(H) <6.5 % LAB CHEMISTRY METHOD 11/21/2024 10:21 AM EST [facility] Mean Bld Glu Estim. 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
--- OUTSIDE RECORDS SUMMARY | 2025-04-03 12:43 | XMS_ITS | Encounter Summary ---
Author Organization [facility] Address [address] [place] [address] Care Team Providers Care Vice President Network Development Name Role Phone Keli Dickinson MD Primary Care Provider [phone] Encounter Details Date Type Department Care Team (Late st Contact Info) Description 11/05/2024 Lab Requisition [facility] Lab [address] [place] [address] Marine Ryder MD [address] [place] [phone] Encounter for other general examination Social History [...] LAB HEMETOLOGY METHOD 11/05/2024 10:00 AM EST [facility] RBC 3.20(L) 3.80 - 4.80 M/mcL LAB HEMETOLOGY METHOD 11/05/2024 10:00 AM [facility] Hemoglobin 8.0(L) 11.5 - 16.0 g/dL LAB HEMETOLOGY METHOD 11/05/2024 10:00 AM [facility] Hematocrit 25.6(L) 35.0 - 47.0 % LAB HEMETOLOGY METHOD 11/05/2024 10:00 AM [facility] MCV 81.0 79.0 - 98.0 FL LAB HEMETOLOGY METHOD 11/05/2024 10:00 AM [facility] MCH 25.3(L) 27.0 - 32.0 pcg LAB HEMETOLOGY METHOD 11/05/2024 10:00 AM [facility] MCHC 31.3(L) 32.0 - 37.0 g/dL LAB HEMETOLOGY METHOD 11/05/2024 10:00 AM [facility] RDW 18.3(H) 11.0 - 15.0 % LAB HEMETOLOGY METHOD 11/05/2024 10:00 AM [facility] Platelets 254 130 - 400 K/mcL LAB HEMETOLOGY METHOD 11/05/2024 10:00 AM [facility] MPV 11.7(H) 7.0 - 11.0 FL LAB HEMETOLOGY METHOD 11/05/2024 10:00 AM [facility] NRBC 0.0 <1.0 % LAB HEMETOLOGY METHOD 11/05/2024 10:00 AM [facility] NRBC Absolute 0.00 <0.10 K/mcL LAB HEMETOLOGY METHOD 11/05/2024 10:00 AM [facility] Neutrophils Relative 77.4 % LAB HEMETOLOGY METHOD 11/05/2024 10:00 AM [facility] Lymphocytes Relative 12.2 % LAB HEMETOLOGY METHOD 11/05/2024 10:00 AM [facility] Monocytes Relative 8.8 % LAB HEMETOLOGY METHOD 11/05/2024 10:00 AM [facility] Eosinophils Relative 0.9 % LAB HEMETOLOGY METHOD 11/05/2024 10:00 AM [facility] Basophils Relative 0.3 % LAB HEMETOLOGY METHOD 11/05/2024 10:00 AM [facility] Immature Granulocytes Relative 0.4 % LAB HEMETOLOGY METHOD 11/05/2024 10:00 AM [facility] Neutrophils Absolute 7.66(H) 1.50 - 7.00 K/mcL LAB HEMETOLOGY METHOD 11/05/2024 10:00 AM [facility] Lymphocytes Absolute 1.21 1.00 - 5.00 K/mcL LAB HEMETOLOGY METHOD 11/05/2024 10:00 AM [facility] Monocytes Absolute 0.87 0.20 - 1.00 K/mcL LAB HEMETOLOGY METHOD 11/05/2024 10:00 AM [facility] Eosinophils Absolute 0.09 0.00 - 0.50 K/mcL LAB HEMETOLOGY METHOD 11/05/2024 10:00 AM [facility] Basophils Absolute 0.03 0.00 - 0.20 K/mcL LAB HEMETOLOGY METHOD 11/05/2024 10:00 AM [facility] Immature Granulocytes Absolute 0.04(H) 0.00 - 0.03 K/mcL LAB HEMETOLOGY METHOD 11/05/2024 10:00 AM [facility] Blood Venous blood specimen / Unknown Venipuncture / Unknown 11/05/2024 5:12 AM EST 11/05/2024 8:55 AM EST us Marine Ryder MD LAB BLOOD ORDERABLES Final Resu lt Performing Organization Address [facility]ZIP Co de Phone Number [facility] [address] [place] [address], * Magnesium (11/05/2024 5:12 AM EST) Magnesium 2.5 1.9 - 2.6 mg/dL LAB CHEMISTRY METHOD 11/05/2024 10:41 AM EST [facility] Blood Venous blood specimen / Unknown Venipuncture / Unknown 11/05/2024 5:12 AM EST 11/05/2024 8:55 AM EST Marine Ryder MD LAB BLOOD ORDERABLES Final Resu lt Performing Organization Address [facility]/ZIP Co de Phone Number [facility] [address] [place] [address], * (ABNORMAL) Comprehensive metabolic panel (11/05/2024 5:12 AM EST) Pathologist [facility] Sodium 132(L) 133 - 145 mmol/L LAB CHEMISTRY METHOD 11/05/2024 10:42 AM [facility] Potassium 5.2 3.5 - 5.5 mmol/L LAB CHEMISTRY METHOD 11/05/2024 10:42 AM [facility] Chloride 99 96 - 110 mmol/L LAB CHEMISTRY METHOD 11/05/2024 10:42 AM [facility] CO2 29 21 - 32 mmol/L LAB CHEMISTRY METHOD 11/05/2024 10:42 AM [facility] Anion Gap 4 3 - 11 LAB CHEMISTRY METHOD 11/05/2024 10:42 AM [facility] Glucose 256(H) 70 - 100 mg/dL LAB CHEMISTRY METHOD 11/05/2024 10:42 AM [facility] BUN 39(H) 5 - 25 mg/dL LAB CHEMISTRY METHOD 11/05/2024 10:42 AM [facility] Creatinine 0.87 0.50 - 1.10 mg/dL LAB CHEMISTRY METHOD 11/05/2024 10:42 AM [facility] eGFR 64 >=60 mL/min/1. 73m2 LAB CHEMISTRY METHOD 11/05/2024 10:42 AM [facility] Comment:Calculation based on the??Chronic Kidney Disease Epidemiology Collaboration (CKD-EPI) equation refit??without adjustment for race. BUN/Creatinine Ratio 44.8 LAB CHEMISTRY METHOD 11/05/2024 10:42 AM [facility] Calcium 8.2(L) 8.5 - 10.5 mg/dL LAB CHEMISTRY METHOD 11/05/2024 10:42 AM [facility] AST (SGOT) 56(H) 10 - 42 unit/L LAB CHEMISTRY METHOD 11/05/2024 10:42 AM [facility] ALT (SGPT) 16 10 - 60 unit/L LAB CHEMISTRY METHOD 11/05/2024 10:42 AM [facility] Alkaline Phosphatase 77 42 - 121 unit/L LAB CHEMISTRY METHOD 11/05/2024 10:42 AM [facility] Total Protein 5.1(L) 6.0 - 8.0 g/dL LAB CHEMISTRY METHOD 11/05/2024 10:42 AM [facility] Albumin 2.5(L) 3.2 - 5.0 g/dL LAB CHEMISTRY METHOD 11/05/2024 10:42 AM [facility] Total Bilirubin 0.8 0.0 - 1.4 mg/dL LAB CHEMISTRY METHOD 11/05/2024 10:42 AM [facility] Blood Venous blood specimen / Unknown Venipuncture / Unknown 11/05/2024 5:12 AM EST 11/05/2024 8:55 AM EST us Marine Ryder MD LAB BLOOD ORDERABLES Final Resu lt [facility] [address] [place] [address], documented in this encounter Visit Diagnoses Diagnosis Encounter for other general examination documented in this encounter Additional Health Concerns 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
--- OUTSIDE RECORDS SUMMARY | 2025-04-03 12:43 | XMS_ITS | Encounter Summary ---
Author Organization [facility] Address [address] [place] [address] Care Team Providers Care Air Conditioning Installer Name Role Phone Keli Dickinson MD Primary Care Provider [phone] Encounter Details Date Type Department Care Team (Late st Contact Info) Description 11/07/[address] [facility] Lab [address] [facility] [place] [address] Marine Ryder MD [address] [place] [phone] Encounter for other general examination Social History [...] LAB CHEMISTRY METHOD 11/07/2024 11:24 AM EST [facility] Potassium 4.8 3.5 - 5.5 mmol/L LAB CHEMISTRY METHOD 11/07/2024 11:24 AM EST [facility] Chloride 97 96 - 110 mmol/L LAB CHEMISTRY METHOD 11/07/2024 11:24 AM EST [facility] CO2 29 21 - 32 mmol/L LAB CHEMISTRY METHOD 11/07/2024 11:24 AM EST [facility] Anion Gap 7 3 - 11 LAB CHEMISTRY METHOD 11/07/2024 11:24 AM [facility] Glucose 199(H) 70 - 100 mg/dL LAB CHEMISTRY METHOD 11/07/2024 11:24 AM [facility] BUN 22 5 - 25 mg/dL LAB CHEMISTRY METHOD 11/07/2024 11:24 AM [facility] Creatinine 0.73 0.50 - 1.10 mg/dL LAB CHEMISTRY METHOD 11/07/2024 11:24 AM [facility] eGFR 79 >=60 mL/min/1. 73m2 LAB CHEMISTRY METHOD 11/07/2024 11:24 AM [facility] Comment:Calculation based on the??Chronic Kidney Disease Epidemiology Collaboration (CKD-EPI) equation refit??without adjustment for race. 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
--- OUTSIDE RECORDS SUMMARY | 2025-04-03 12:43 | XMS_ITS | Encounter Summary ---
Author Organization [facility] Address [address] [place] [address] Care Team Providers Care Set Up Inspector Name Role Phone Keli Dickinson MD Primary Care Provider [phone] Encounter Details Date Type Department Care Team (Late st Contact Info) Description 11/08/2024 Lab Requisition [facility] - Main Lab [address] [place] [address] Marine Ryder MD [address] [place] [id number] Encounter for other general examination Social History [...] and culture (11/08/2024 9:53 AM EST) Specific [place] Urine 1.024 1.003 - 1.030 LAB URINALYSIS - AUTOMATED METHOD 11/08/2024 10:[address] [facility] pH, Urine 5.5 5.0 - 8.0 pH LAB URINALYSIS - AUTOMATED METHOD 11/08/2024 10:31 AM [facility] Leukocytes, Urine Negative Negative LAB URINALYSIS - AUTOMATED METHOD 11/08/2024 10:31 AM [facility] Nitrite, Urine Negative Negative LAB URINALYSIS - AUTOMATED METHOD 11/08/2024 10:31 AM [facility] Protein, Urine 30(A) <=Trace mg/dL LAB URINALYSIS - AUTOMATED METHOD 11/08/2024 10:31 AM [facility] Glucose, Urine >=1000(A) Negative mg/dL LAB URINALYSIS - AUTOMATED METHOD 11/08/2024 10:31 AM [facility] Ketones, Urine Trace(A) Negative mg/dL LAB URINALYSIS - AUTOMATED METHOD 11/08/2024 10:31 AM [facility] Urobilinogen , Urine 1.0 0.2 - 1.0 mg/dL LAB URINALYSIS - AUTOMATED METHOD 11/08/2024 10:31 AM [facility] Bilirubin, Urine Negative Negative LAB URINALYSIS - AUTOMATED METHOD 11/08/2024 10:31 AM [facility] Blood, Urine Negative Negative LAB URINALYSIS - AUTOMATED METHOD 11/08/2024 10:31 AM [facility] RBC, Urine 1.1 0 - 4 /HPF LAB URINALYSIS - AUTOMATED METHOD 11/08/2024 10:31 AM [facility] WBC, Urine 3.2 0 - 4 /HPF LAB URINALYSIS - AUTOMATED METHOD 11/08/2024 10:31 AM [facility] Squamous Epithelial, Urine 55 0 - 60 /LPF LAB URINALYSIS - AUTOMATED METHOD 11/08/2024 10:31 AM [facility] Bacteria, Urine Negative Negative /HPF LAB URINALYSIS - AUTOMATED METHOD 11/08/2024 10:31 AM [facility] Hyaline Casts, Urine 8.8(H) 0 - 3 /LPF LAB URINALYSIS - AUTOMATED METHOD 11/08/2024 10:[address] [facility] Urine Urine specimen obtained by clean catch procedure / Unknown 11/08/2024 9:53 AM EST 11/08/2024 9:55 AM EST us Marine Ryder MD LAB URINE ORDERABLES Final Resu lt Performing Organization Address City/[facility]/ZIP Co de Phone Number [facility] [address] [place] [address], [place] [phone] * [place] urine culture tube (11/08/2024 9:53 AM EST) Extra Tube Hold for add-ons. 11/08/2024 11:[address] [facility] Comment:Auto resulted. Urine Urine specimen obtained by clean catch procedure / Unknown 11/08/2024 9:53 AM EST 11/08/2024 9:55 AM EST us Marine Ryder MD LAB URINE ORDERABLES Final Resu lt Performing Organization Address [facility] Co de Phone Number 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
--- OUTSIDE RECORDS SUMMARY | 2025-04-03 12:43 | XMS_ITS | Data Portability ---
Author Organization [place] [facility], Allergy Address [address] [address] Care Team Providers Care Repairer And Checker Name Role Phone PHILIPP OVIEDO Primary Care [...] Recorded Time Impacted cerumen in right ear [id number] 64595 Active 2021 Impacted cerumen, right ear; Note: Date Diagnosed : 07/14/2022 1:28 PM (H61.21) Not Available [facility] 4 02:40:09 Sensorine ural hearing loss of bilateral ears 576494802 Active 2015 Sensorine ural hearing loss, bilateral ; Note: Date Diagnosed : 6 1:22 PM (H90.3) Not Available [facility] 4 02:40:08 Otitis media of left ear [id number] 53892 Active 2019 Otitis media, unspecifi ed, left ear; Note: Date Diagnosed : 03/22/2020 9:49 AM (H66.92) Not Available [facility] 4 02:40:08 Impacted cerumen of bilateral ears 51573127797 43267 Active 2015 Impacted cerumen, bilateral ; Note: Date Diagnosed : 6 12:21 PM (H61.23) Not Available [facility] 4 02:40:14 Impacted cerumen 29878644 Active 2013 Impacted cerumen; CMS Risk: low risk CMS Treatment : new problem (to examiner) : no additiona l workup planned Not Available [facility] 4 02:40:16 Otorrhea of left ear 31850550408 35988 Active 2019 Otorrhea, left ear; Note: Date Diagnosed : 04/23/2020 3:37 PM (H92.12) Not Available [facility] 4 02:40:13 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 Procedures Surgical History Date Name Laterality Status Provider Name and Address Organization Details Recorded Time 4 Cerumen removal without microscope bilat completed CATHERINE DESAI PA-C [address] [place] [address], [phone] - [facility] 07/26/2024 11:54:29 Imaging Results None recorded. Procedure Notes None recorded. Medical Equipment None Reported. Medications Name Sig Start Date Stop Date Status Note LastModified by Organization Details LastModified Time nifedipin e ER 30 mg tablet,ex tended release 24 hr 03/21 completed Medicati on ID: [id number] Du ration Value: 90 Reason: () Brand Name: nifedipi ne Send Method: E-Prescr ibed Sub s Allowed: subs OK Speci al Instruct ion: TAKE 1 TABLET BY MOUTH EVERY DAY Medi [facility] nericNam e: nifedipi ne Not Available Not Available Not Available amoxicill in 500 mg capsule TAKE 4 CAPSULES BY MOUTH ONE HOUR PRIOR TO DENTAL PROCEDUR E active Not Available Not Available No t Available metformin 500 mg tablet 03/15 completed Medicati on ID: [id number] D uration Value: 90 Brand Name: metformi n Send Method: E-Prescr ibed Sub s Allowed: subs OK [facility] : metformi n Not Available Not Available Not Available lisinopri l 20 mg tablet active Not Available Not Available Not Available clonazepa m 0.5 mg tablet 04/23 completed Medicati on ID: [id number] D uration Value: 15 Reason: () Brand Name: clonazep am Send Method: E-Prescr ibed Sub s Allowed: subs OK Medic [facility] ericName : clonazep am Not Available Not Available Not Available Lantus U-100 Insulin 100 unit/mL subcutane ous solution 04/23 completed Medicati on ID: [id number] Du ration Value: 56 Reason: () Brand Name: Lantus U-100 Insulin Send Method: E-Prescr ibed Sub s Allowed: subs OK Speci al Instruct ion: INJECT 30 - 38 UNITS SUBCUTAN EOUSLY OR DIRECTED BY MD [facility] eric[facility] : Lantus U-100 Insulin Not Available Not Available Not Available levothyro xine 100 mcg tablet 03/15 completed Medicati on ID: [id number] D uration Value: 90 Brand Name: levothyr oxine Se nd Method: E-Prescr ibed Sub s Allowed: subs OK Medic [facility] ericName : levothyr oxine Not Available Not Available Not Available ofloxacin 0.3 % ear drops 03/15 completed Medicati on ID: [id number] D uration Value: 10 Brand Name: ofloxaci n Send Method: E-Prescr ibed Sub s Allowed: subs OK Medic [facility] ericName : ofloxaci n Not Available [...] 3 drop 04/23 completed Medicati on ID: [id number] D uration Value: 14 Prescri bed By Name: Clara perez MD Brand Name: tobramyc in-dexam ethasone Send Method: E-Prescr ibed Sub s Allowed: subs OK Speci al Instruct ion: apply to affected ear Medi cationGe nericNam e: tobramyc in-dexam ethasone Not Available Not Available Not Available neomycin- polymyxin -hydrocor t 3.5 mg-10,000 unit/mL-1 % ear drops,ester p 03/21 completed Medicati on ID: [id number] Du ration Value: 30 Reason: () Brand [...] topical gel 03/15 completed Medicati on ID: [id number] B rand Name: diclofen ac sodium S end Method: E-Prescr ibed Sub s Allowed: subs OK Medic [facility] ericName : diclofen ac sodium Not Available Not Available Not Available Arexvy (PF) 120 mcg/0.5 mL IM suspensio n active Medicati on ID: [id number] B rand Name: Audra (VELASQUEZ) Billy d Method: E-Prescr ibed Sub s Allowed: subs OK Medic [facility] ericName : Audra (PF) Not Available Not Available Not Available Vitals Date Recorded Body height Body mass index (BMI) Body weight Provider Name and Address Organization Details Last Updated DateTime 07/26/2024 157.48 cm 30.7 kg/m2 45060.52 g Donny Sarkar [place] [facility] 07/26/2024 11:16:48 Social History None recorded. Functional Status None recorded. Mental Status None recorded. Family History Nothing Reported. Medical History No medical history recorded. Gynecological HistoryNo gynecological history recorded. Obstetrics History GPAL:G 0 P 0 0 0 0 Past Encounters Encounter ID Performer Location Encounter Start Date Encounter Closed Date Diagnosis/Indication Diagnosis SNOMED-CT Code Diagnosis ICD10 Code Diagnosis Note [id number] CATHERINE DESAI PA-C [facility] [address] [address] 07/26/2024 11:12:02 07/26/2024 11:56:27 Impacted cerumen of bilateral ears [id number] H61.23 Health Concerns Section Related Observation LastModified by Organization Detai ls LastModified Time None Recorded Concern Status LastModified by Organization Details LastModified Time None Recorded Advance Directives Directive None Recorded Payers Insurance Date Sequence Insurance Name Policy Number Policy Genao Covered Member ID Genao Member ID Guarantor Name 10/21/2024 1 [place]: [employer] Lisa Holliday [id number] Lisa Holliday 10/22/2024 2 [facility] - PLAN 1 (MEDICARE SUPPLEMENT) [id number] Lisa Holliday [id number] Lisa Holliday 07/26/2024 2 [facility] (MEDICAID HMO) [id number] Lisa Holliday [id number] Lisa Holliday Notes Date Note Type Note Provider Name and Address Organization Details Recorded Time 07/26/2024 text/html 88-year-old female presents for evaluation of the ears. She reports that her hearing is very poor despite her hearing aids. She notes it has been a very long time since she had an audiogram. She denies otalgia, otorrhea, and tinnitus. RUIZ CROW MD [address] [place] [address], [phone], [facility] - [facility] 07/26/2024 17:26:24 OBGyn Episode No OBEpisode recorded.
== END 2025-03-30 12:16 | disposition home or self-care (01) ==
LOC: HO.HOSX 12:15
PROVIDERS: Visit Provider Physician Assistant
DX: Z13.89 Encounter for screening for other disorder (principal)

== ENCOUNTER 2025-04-04 13:46 | Outpatient (REF) | payer MEDICARE, OTHER, SELFPAY ==
--- OUTSIDE RECORDS SUMMARY | 2025-04-04 16:29 | XMS_ITS | Encounter Summary ---
Author Organization [facility] Address [address] [place] [address] Care Team Providers Care Exercise Planner Name Role Phone Keli Dickinson MD Primary Care Provider [phone] Encounter Details Date Type Department Care Team (Late st Contact Info) Description 01/28/2025 Lab Requisition [facility] - Main Lab [address] [place] [address] Keli Dickinson MD [address] [place] [address] Anemia, unspecified Social History Tobacco [...] LAB COAGULATION METHOD 01/28/2025 4:10 PM EDT [facility] Blood Venous blood specimen / Unknown Venipuncture / Unknown 01/28/2025 3:28 PM EDT 01/28/2025 3:54 PM EDT Narrative [facility] - 01/28/2025 4:10 PM EDT D-Dimer <230 ng/mL (D-Dimer units) is the threshold for exclusion of DVT/PE. D-Dimer may be elevated in: Critically ill, severely infected, trauma patients, DIC, acute CVA, acute [place], unstable angina, AF, old age, , and smoking. D-Dimer may be decreased with: Initiation of heparin therapy and oral anticoagulants. us Keli Dickinson MD LAB BLOOD ORDERABLES Final Resul t [facility] [address] [place] [address], * (ABNORMAL) Comprehensive metabolic panel (01/28/2025 3:28 PM EDT) Sodium 135 133 - 145 mmol/L LAB CHEMISTRY METHOD [facility] Potassium 4.2 3.5 - 5.5 mmol/L LAB CHEMISTRY METHOD 01/28/2025 4:30 PM [facility] Chloride 101 96 - 110 mmol/L LAB CHEMISTRY METHOD 01/28/2025 4:30 PM [facility] CO2 27 21 - 32 mmol/L LAB CHEMISTRY METHOD 01/28/2025 4:30 PM [facility] Anion Gap 7 3 - 11 LAB CHEMISTRY METHOD 01/28/2025 4:30 PM [facility] Glucose 338(H) 70 - 100 mg/dL LAB CHEMISTRY METHOD 01/28/2025 4:30 PM [facility] BUN 15 5 - 25 mg/dL LAB CHEMISTRY METHOD 01/28/2025 4:30 PM [facility] Creatinine 0.87 0.50 - 1.10 mg/dL LAB CHEMISTRY METHOD 01/28/2025 4:30 PM EDT [facility] eGFR 64 >=60 mL/min/1. 73m2 LAB CHEMISTRY METHOD 01/28/2025 4:30 PM EDT [facility] Comment:Calculation based on the??Chronic Kidney Disease Epidemiology Collaboration (CKD-EPI) equation refit??without adjustment for race. BUN/Creatinine Ratio 17.2 LAB CHEMISTRY METHOD 01/28/2025 4:30 PM EDT [facility] Calcium 8.7 8.5 - 10.5 mg/dL LAB CHEMISTRY METHOD 01/28/2025 4:30 PM T [facility] AST (SGOT) 14 10 - 42 unit/L LAB CHEMISTRY METHOD 01/28/2025 4:30 PM [facility] ALT (SGPT) 13 10 - 60 unit/L LAB CHEMISTRY METHOD 01/28/2025 4:30 PM [facility] Alkaline Phosphatase 95 42 - 121 unit/L LAB CHEMISTRY METHOD 01/28/2025 4:30 PM EDT [facility] Total Protein 5.7(L) 6.0 - 8.0 g/dL LAB CHEMISTRY METHOD 01/28/2025 4:30 PM [facility] Albumin 2.8(L) 3.2 - 5.0 g/dL LAB CHEMISTRY METHOD 01/28/2025 4:30 PM [facility] Total Bilirubin 0.4 0.0 - 1.4 mg/dL LAB CHEMISTRY METHOD 01/28/2025 4:30 PM [facility] Blood Venous blood specimen / Unknown Venipuncture / Unknown 01/28/2025 3:28 PM EDT 01/28/2025 3:54 PM EDT us Keli Dickinson MD LAB BLOOD ORDERABLES Final Resul t [facility] [address] [place] [address], * (ABNORMAL) Complete blood count (01/28/2025 3:28 PM EDT) [facility] WBC 7.9 4.8 - 10.8 K/mcL LAB HEMETOLOGY METHOD 01/28/2025 4:06 PM [facility] RBC 4.20 3.80 - 4.80 M/mcL LAB HEMETOLOGY METHOD 01/28/2025 4:06 PM [facility] Hemoglobin 10.5(L) 11.5 - 16.0 g/dL LAB HEMETOLOGY METHOD 01/28/2025 4:06 PM [facility] Hematocrit 33.2(L) 35.0 - 47.0 % LAB HEMETOLOGY METHOD 01/28/2025 4:06 PM [facility] LAB MCV 79.6 79.0 - 98.0 FL LAB HEMETOLOGY METHOD 01/28/2025 4:06 PM [facility] MCH 25.2(L) 27.0 - 32.0 pcg LAB HEMETOLOGY METHOD 01/28/2025 4:06 PM [facility] MCHC 31.6(L) 32.0 - 37.0 g/dL LAB HEMETOLOGY METHOD 01/28/2025 4:06 PM [facility] RDW 15.2(H) 11.0 - 15.0 % LAB HEMETOLOGY METHOD 01/28/2025 4:06 PM [facility] Platelets 233 130 - 400 K/mcL LAB HEMETOLOGY METHOD 01/28/2025 4:06 PM [facility] MPV 11.1(H) 7.0 - 11.0 FL LAB HEMETOLOGY METHOD 01/28/2025 4:06 PM [facility] NRBC 0.0 <1.0 % LAB HEMETOLOGY METHOD 01/28/2025 4:06 PM EDT [facility] NRBC Absolute 0.00 <0.10 K/mcL LAB HEMETOLOGY METHOD 01/28/2025 4:06 PM EDT [facility] Blood Venous blood specimen / Unknown Venipuncture / Unknown 01/28/2025 3:28 PM EDT 01/28/2025 3:54 PM EDT us Keli Dickinson MD LAB BLOOD ORDERABLES Final Resul t [facility] [address] [place] [address], documented in this encounter Visit Diagnoses Diagnosis Anemia, unspecified documented in this encounter 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
--- OUTSIDE RECORDS SUMMARY | 2025-04-04 16:29 | XMS_ITS | Encounter Summary ---
Author Organization [facility] Address [address] [place] [address] Care Team Providers Care Housekeeping Manager Name Role Phone Keli Dickinson MD Primary Care Provider [phone] Encounter Details Date Type Department Care Team (Late st Contact Info) Description 02/07/2025 Lab Requisition [facility] - Main Lab [address] [place] [address] Keli Dickinson MD [address] [place] [address] Urinary tract infection, site not [...] Hold for add-ons. 02/07/2025 1:01 PM EDT [facility] ([facility]) [facility] Comment:Auto resulted. Urine Urine specimen obtained by clean catch procedure / Unknown 02/07/2025 02/07/2025 11:38 AM EDT us Keli Dickinson MD LAB URINE ORDERABLES Final Resul t [facility] [address] [place] [address], [place] [phone] * (ABNORMAL) Urinalysis with reflex microscopic (02/07/2025 12:00 AM EDT) Specific [place] Urine 1.017 1.003 - 1.030 LAB URINALYSIS - AUTOMATED METHOD 02/07/2025 1:34 PM EDT [facility] pH, Urine 6.0 5.0 - 8.0 pH LAB URINALYSIS - AUTOMATED METHOD 02/07/2025 1:34 PM [facility] Leukocytes, Urine Large(A) Negative LAB URINALYSIS - AUTOMATED METHOD 02/07/2025 1:34 PM [facility] Nitrite, Urine Negative Negative LAB URINALYSIS - AUTOMATED METHOD 02/07/2025 1:34 PM [facility] Protein, Urine 30(A) <=Trace mg/dL LAB URINALYSIS - AUTOMATED METHOD 02/07/2025 1:34 PM [facility] Glucose, Urine Negative Negative mg/dL LAB URINALYSIS - AUTOMATED METHOD 02/07/2025 1:34 PM [facility] Ketones, Urine Trace(A) Negative mg/dL LAB URINALYSIS - AUTOMATED METHOD 02/07/2025 1:34 PM [facility] Urobilinogen , Urine 0.2 0.2 - 1.0 mg/dL LAB URINALYSIS - AUTOMATED METHOD 02/07/2025 1:34 PM [facility] Bilirubin, Urine Negative Negative LAB URINALYSIS - AUTOMATED METHOD 02/07/2025 1:34 PM [facility] Blood, Urine Trace(A) Negative LAB URINALYSIS - AUTOMATED METHOD 02/07/2025 1:34 PM EDT [facility] RBC, Urine 13.5(H) 0 - 4 /HPF LAB URINALYSIS - AUTOMATED METHOD 02/07/2025 1:34 PM EDT [facility] WBC, Urine 846.5(H) 0 - 4 /HPF LAB URINALYSIS - AUTOMATED METHOD 02/07/2025 1:34 PM EDT [facility] Squamous Epithelial, Urine >100(H) 0 - 60 /LPF LAB URINALYSIS - AUTOMATED METHOD 02/07/2025 1:34 PM EDT [facility] Bacteria, Urine Negative Negative /HPF LAB URINALYSIS - AUTOMATED METHOD 02/07/2025 1:34 PM EDT [facility] Hyaline Casts, Urine 12.0(H) 0 - 3 /LPF LAB URINALYSIS - AUTOMATED METHOD 02/07/2025 1:34 PM EDT [facility] Yeast, Urine Present(A) None /HPF LAB URINALYSIS - AUTOMATED METHOD 02/07/2025 1:34 PM T [facility] Urine Urine specimen obtained by clean catch procedure / Unknown 02/07/2025 02/07/2025 11:37 AM EDT us Keli Dickinson MD LAB URINE ORDERABLES Final Resul t [facility] [address] [place] [address], documented in this encounter Visit Diagnoses Diagnosis Urinary tract infection, site not specified documented in this encounter 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
--- OUTSIDE RECORDS SUMMARY | 2025-04-04 16:29 | XMS_ITS | Encounter Summary ---
Author Organization [facility] Address [address] [place] [address] Care Team Providers Care Blood Bank Specialist Name Role Phone Keli Dickinson MD Primary Care Provider [phone] Encounter Details Date Type Department Care Team (Late st Contact Info) Description 01/26/2025 Lab Requisition [facility] Lab [address] [place] [address] Keli Dickinson MD [address] [place] [address] Urinary tract infection, site not [...] reflex microscopic (01/25/2025 11:15 PM EDT) Specific [place] Urine 1.037(H) 1.003 - 1.030 LAB URINALYSIS - AUTOMATED METHOD 01/26/2025 11:03 AM EDT [facility] LAB pH, Urine 5.5 5.0 - 8.0 pH LAB URINALYSIS - AUTOMATED METHOD 01/26/2025 11:03 AM [facility] LAB Leukocytes, Urine Moderate(A) Negative LAB URINALYSIS - AUTOMATED METHOD 01/26/2025 11:03 AM [facility] LAB Nitrite, Urine Negative Negative LAB URINALYSIS - AUTOMATED METHOD 01/26/2025 11:03 AM [facility] LAB Protein, Urine 30(A) <=Trace mg/dL LAB URINALYSIS - AUTOMATED METHOD 01/26/2025 11:03 AM [facility] LAB Glucose, Urine >=1000(A) Negative mg/dL LAB URINALYSIS - AUTOMATED METHOD 01/26/2025 11:03 AM [facility] LAB Ketones, Urine Trace(A) Negative mg/dL LAB URINALYSIS - AUTOMATED METHOD 01/26/2025 11:03 AM [facility] LAB Urobilinogen , Urine 0.2 0.2 - 1.0 mg/dL LAB URINALYSIS - AUTOMATED METHOD 01/26/2025 11:03 AM [facility] LAB Bilirubin, Urine Negative Negative LAB URINALYSIS - AUTOMATED METHOD 01/26/2025 11:03 AM [facility] LAB Blood, Urine Moderate(A) Negative LAB URINALYSIS - AUTOMATED METHOD 01/26/2025 11:03 AM [facility] LAB RBC, Urine 10.0(H) 0 - 4 /HPF LAB URINALYSIS - AUTOMATED METHOD 01/26/2025 11:03 AM [facility] LAB WBC, Urine 1,135.8(H) 0 - 4 /HPF LAB URINALYSIS - AUTOMATED METHOD 01/26/2025 11:03 AM [facility] LAB Squamous Epithelial, Urine >100(H) 0 - 60 /LPF LAB URINALYSIS - AUTOMATED METHOD 01/26/2025 11:03 AM [facility] LAB Bacteria, Urine Few(A) Negative /HPF [...] t [facility] LAB [address] [place] [address], * (ABNORMAL) Culture urine (01/25/2025 11:15 PM [...] MICROBIOLOGY - GENERAL ORDER BOBBY Final Result [facility] LAB [address] [place] [address], documented in this encounter Visit Diagnoses Diagnosis Urinary tract infection, site not specified documented in this encounter 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
--- OUTSIDE RECORDS SUMMARY | 2025-04-04 16:30 | XMS_ITS | Encounter Summary ---
Author Organization [facility] Address [address] [place] [address] Care Team Providers Care Fingernail Former Name Role Phone Keli Dickinson MD Primary Care Provider [phone] Encounter Details Date Type Department Care Team (Late st Contact Info) Description 02/23/2025 Lab Requisition [facility] - Main Lab [address] [place] [address] Keli Dickinson MD [address] [place] [address] Urgency of urination; Urinary tract [...] (ABNORMAL) Culture urine (02/21/2025 10:30 PM EDT) [facility] Signature Culture, Urine >100,000 CFU/mL [...] BOBBY Final Result [facility] LAB [address] [place] [address], [place] [phone] * (ABNORMAL) Urinalysis with reflex microscopic and culture (02/21/2025 10:30 PM EDT) Specific [place] Urine 1.029 1.003 - 1.030 LAB URINALYSIS [...] ORDERABLES Final Resul t Performing Organization Address City/[facility]/ZIP Co de Phone Number [facility] [address] [place] [address], [place] [phone] * [place] urine culture tube (02/21/2025 10:30 PM EDT) Extra Tube Hold for add-ons. 02/23/2025 1:02 PM EDT [facility] Comment:Auto resulted. 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
--- OUTSIDE RECORDS SUMMARY | 2025-04-04 16:30 | XMS_ITS | Encounter Summary ---
Author Organization [facility] Address [address] [place] [address] Care Team Providers Care Destination Sign Repairer Name Role Phone Keli Dickinson MD Primary Care Provider [phone] Encounter Details Date Type Department Care Team (Late st Contact Info) Description 11/15/[address] [facility] Lab [address] [facility] [place] [address] Marine Ryder MD [address] [place] [id number] Encounter for other general examination Social History [...] LAB MICROBIOLOGY METHOD 4 2:43 PM EST [facility] Sapovirus Detection by PCR [...] us Marine Ryder MD LAB MICROBIOLOGY - [facility] JENNY PEDRAZA Final Result [facility] LAB [address] [place] [address], documented in this encounter Visit Diagnoses Diagnosis Encounter for other general examination documented in this encounter Additional Health Concerns Infection Onset Date Last Indicated Resolved Time Gastrointestinal Rule-Out 11/15/2024 11/15/2024 2:43 PM EST 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
--- OUTSIDE RECORDS SUMMARY | 2025-04-04 16:30 | XMS_ITS | Clinical Summary ---
Author Organization [facility] Address [address] [place] [address] Phone Care Team Providers Care Flight Instructor Name Role Phone Keli Dickinson MD Primary Care Provider [phone] Encounters Date Type Department Care Team Description 02/23/2025 Lab Requisition [facility] Lab [address] [place] [phone] Keli Dickinson MD Urgency of urination; Urinary tract infection, site not specified 02/07/2025 Lab Requisition [facility] Lab [address] [place] [address] Keli Dickinson MD Urinary tract infection, site not specified 02/06/2025 Lab Requisition [facility] Main Lab [address] [place] [address] Keli Dickinson MD Syncope and collapse 01/28/2025 Lab Requisition [facility] - Main Lab [address] [place] [address] Keli Dickinson MD Anemia, unspecified 01/26/2025 Lab Requisition [facility] Lab [address] [place] [address] Keli Dickinson MD Urinary tract infection, site not specified 01/18/2025 Lab Requisition [facility] Lab [address] [place] [phone] Keli Dickinson MD Type 2 diabetes mellitus [...] EST Type 2 diabetes mellitus without complications ([facility]) Essential (primary) hypertension Hypo-osmolality and hyponatremia COMPLETE BLOOD COUNT Routine 01/18/2025 9:14 AM EST Type 2 diabetes mellitus without complications ([facility]) Essential (primary) hypertension Hypo-osmolality and hyponatremia HEMOGLOBIN A1C Routine 11/19/2024 7:20 AM EST Type 2 diabetes mellitus without complications ([facility]) Anemia, unspecified from Last 3 Months or Most Recently Relevant to Health Maintenance Results * (ABNORMAL) Urinalysis with reflex microscopic and culture (02/21/2025 10:30 PM EDT) Specific [place] Urine 1.029 1.003 - 1.030 LAB URINALYSIS [...] 02/23/2025 11:46 AM [facility] LAB Squamous Epithelial, Urine >100(H) 0 - 60 /LPF LAB URINALYSIS - AUTOMATED METHOD 02/23/2025 11:46 AM [facility] LAB Crystals, Urine HEAVY TRIPLE PHOS /LPF LAB URINALYSIS - AUTOMATED METHOD 02/23/2025 11:46 AM [facility] LAB Bacteria, Urine Many(A) Negative /HPF LAB URINALYSIS - AUTOMATED METHOD 02/23/2025 11:46 AM [facility] LAB Hyaline Casts, Urine 15.0(H) 0 - 3 /LPF LAB URINALYSIS - AUTOMATED METHOD 02/23/2025 11:46 AM [facility] LAB Urine Urine specimen from urethra / Unknown Non-blood Collection / Unknown 02/21/2025 10:30 PM EDT 02/23/2025 11:14 AM EDT us Keli Dickinson MD LAB URINE ORDERABLES Final Resul t [facility] LAB [address] [place] [address], * [place] urine culture tube (02/21/2025 10:30 PM EDT) Only the most recent of2 resultswithin the time period is included. Extra Tube Hold for add-ons. 02/23/2025 1:02 PM EDT [facility] LAB Comment:Auto resulted. Urine Urine specimen from urethra / Unknown Non-blood Collection / Unknown 02/21/2025 10:30 PM EDT 02/23/2025 11:14 AM EDT Keli Dickinson MD LAB URINE ORDERABLES Final Resul t [facility] LAB [address] [place] [address], * (ABNORMAL) Culture urine (02/21/2025 10:30 PM EDT) Only the most recent of2 resultswithin the time period is included. Culture, Urine >100,000 CFU/mL Proteus mirabilis(A ) EMMY 02/25/2025 10:20 AM EDT [facility] Comment: Edited result: Previously reported as Proteus species on 02/24/2025 at 1034 EDT. Urine Urine specimen from urethra / Unknown Non-blood Collection / Unknown 02/21/2025 10:30 PM EDT 02/23/2025 11:46 AM EDT Narrative [facility] - 02/25/2025 10:20 AM EDT Additional colony types present in insignificant amounts. Organism Antibiotic Method Susceptibility Proteus mirabilis Amoxicillin/Clavulanate EMYM <=2 ug/ml: Susceptible Proteus mirabilis Ampicillin/Sulbactam EMMY [...] MICROBIOLOGY - GENERAL ORDER BOBBY Final Result [facility] LAB [address] [place] [address], * (ABNORMAL) Urinalysis with reflex microscopic (02/07/2025 12:00 AM EDT) Only the most recent of2 resultswithin the time period is included. Specific [place] Urine 1.017 1.003 - 1.030 LAB URINALYSIS - AUTOMATED METHOD 02/07/2025 1:34 PM EDT [facility] pH, Urine 6.0 5.0 - 8.0 pH LAB URINALYSIS - AUTOMATED METHOD 02/07/2025 1:34 PM EDT [facility] Leukocytes, Urine Large(A) Negative LAB URINALYSIS - AUTOMATED METHOD 02/07/2025 1:34 PM EDT [facility] Nitrite, Urine Negative Negative LAB URINALYSIS - AUTOMATED METHOD 02/07/2025 1:34 PM EDT [facility] Protein, Urine 30(A) <=Trace mg/dL LAB URINALYSIS - AUTOMATED METHOD 02/07/2025 1:34 PM EDT [facility] Glucose, Urine Negative Negative mg/dL LAB URINALYSIS - AUTOMATED METHOD 02/07/2025 1:34 PM [facility] Ketones, Urine Trace(A) Negative mg/dL LAB URINALYSIS - AUTOMATED METHOD 02/07/2025 1:34 PM [facility] LAB Urobilinogen , Urine 0.2 0.2 - 1.0 mg/dL LAB URINALYSIS - AUTOMATED METHOD 02/07/2025 1:34 PM [facility] Bilirubin, Urine Negative Negative LAB URINALYSIS - AUTOMATED METHOD 02/07/2025 1:34 PM [facility] Blood, Urine Trace(A) Negative LAB URINALYSIS - AUTOMATED METHOD 02/07/2025 1:34 PM [facility] RBC, Urine 13.5(H) 0 - 4 /HPF LAB URINALYSIS - AUTOMATED METHOD 02/07/2025 1:34 PM [facility] WBC, Urine 846.5(H) 0 - 4 /HPF LAB URINALYSIS - AUTOMATED METHOD 02/07/2025 1:34 PM [facility] LAB Squamous Epithelial, Urine >100(H) 0 - 60 /LPF LAB URINALYSIS - AUTOMATED METHOD 02/07/2025 1:34 PM [facility] Bacteria, Urine Negative Negative /HPF LAB URINALYSIS - AUTOMATED METHOD 02/07/2025 1:34 PM [facility] Hyaline Casts, Urine 12.0(H) 0 - 3 /LPF LAB URINALYSIS - AUTOMATED METHOD 02/07/2025 1:34 PM [facility] Yeast, Urine Present(A) None /HPF LAB URINALYSIS - AUTOMATED METHOD 02/07/2025 1:34 PM [facility] Urine Urine specimen obtained by clean catch procedure / Unknown 02/07/2025 02/07/2025 11:37 AM EDT us Keli Dickinson MD LAB URINE ORDERABLES Final Resul t [facility] [address] [place] [address], * (ABNORMAL) Complete blood count (02/06/2025 7:07 AM EDT) Only the most recent of3 resultswithin the time period is included. WBC 8.2 4.8 - 10.8 K/mcL LAB HEMETOLOGY METHOD 02/06/2025 11:56 AM EDT [facility] RBC 4.10 3.80 - 4.80 [...] LAB HEMETOLOGY METHOD 02/06/2025 11:56 AM EDT [facility] LAB MPV 11.6(H) 7.0 - 11.0 FL LAB HEMETOLOGY METHOD 02/06/2025 11:56 AM EDT [facility] NRBC 0.0 <1.0 % LAB HEMETOLOGY METHOD 02/06/2025 11:56 AM EDT [facility] LAB NRBC Absolute 0.00 <0.10 K/mcL LAB HEMETOLOGY METHOD 02/06/2025 11:56 AM EDT [facility] LAB Blood Venous blood specimen / Unknown Venipuncture / Unknown 02/06/2025 7:07 AM EDT 02/06/2025 10:22 AM EDT us Keli Dickinson MD LAB BLOOD ORDERABLES Final Resul t [facility] [address] [place] [address], * (ABNORMAL) Basic metabolic panel (02/06/2025 7:07 AM EDT) Only the most recent of2 resultswithin the time period is included. Sodium 135 133 - 145 mmol/L LAB CHEMISTRY METHOD 02/06/2025 12:38 PM [facility] Potassium 4.4 3.5 - 5.5 mmol/L LAB CHEMISTRY METHOD 02/06/2025 12:38 PM [facility] Chloride 103 96 - 110 mmol/L LAB CHEMISTRY METHOD 02/06/2025 12:38 PM [facility] CO2 26 21 - 32 mmol/L LAB CHEMISTRY METHOD 02/06/2025 12:38 PM [facility] Anion Gap 6 3 - 11 LAB CHEMISTRY METHOD 02/06/2025 12:38 PM [facility] Glucose 58(L) 70 - 100 mg/dL LAB CHEMISTRY METHOD 02/06/2025 12:38 PM EDT [facility] BUN 17 5 - 25 mg/dL LAB CHEMISTRY METHOD 02/06/2025 12:38 PM EDT [facility] Creatinine 0.66 0.50 - 1.10 mg/dL LAB CHEMISTRY METHOD 02/06/2025 12:38 PM EDT [facility] LAB eGFR 84 >=60 mL/min/1. 73m2 LAB CHEMISTRY METHOD 02/06/2025 12:38 PM EDT [facility] Comment:Calculation based on the??Chronic Kidney Disease Epidemiology Collaboration (CKD-EPI) equation refit??without adjustment for race. BUN/Creatinine Ratio 25.8 LAB CHEMISTRY METHOD 02/06/2025 12:38 PM EDT [facility] Calcium 8.7 8.5 - 10.5 mg/dL LAB CHEMISTRY METHOD 02/06/2025 12:38 PM EDT [facility] Blood Venous blood specimen / Unknown Venipuncture / Unknown 02/06/2025 7:07 AM EDT 02/06/2025 10:22 AM EDT Keli Dickinson MD LAB BLOOD ORDERABLES Final Resul t [facility] [address] [place] [address], * (ABNORMAL) D-Dimer (01/28/2025 3:28 PM EDT) D-Dimer, Quant (D-DU) 451(H) <=230 ng/mL DDU LAB COAGULATION METHOD 01/28/2025 4:10 PM EDT [facility] Blood Venous blood specimen / Unknown Venipuncture / Unknown 01/28/2025 3:28 PM EDT 01/28/2025 3:54 PM EDT Narrative [facility] - 01/28/2025 4:10 PM EDT D-Dimer <230 ng/mL (D-Dimer units) is the threshold for exclusion of DVT/PE. D-Dimer may be elevated in: Critically ill, severely infected, trauma patients, DIC, acute CVA, acute MO, unstable angina, AF, old age, , and smoking. D-Dimer may be decreased with: Initiation of heparin therapy and oral anticoagulants. Keli Dickinson MD LAB BLOOD ORDERABLES Final Resul t [facility] [address] [place] [address], * (ABNORMAL) Comprehensive metabolic panel (01/28/2025 3:28 PM EDT) Sodium 135 133 - 145 mmol/L LAB [facility]STRY [facility] Potassium 4.2 3.5 - 5.5 mmol/L LAB CHEMISTRY METHOD 01/28/2025 4:30 PM [facility] Chloride 101 96 - 110 mmol/L LAB CHEMISTRY METHOD 01/28/2025 4:30 PM [facility] CO2 27 21 - 32 mmol/L LAB CHEMISTRY METHOD 01/28/2025 4:30 PM [facility] Anion Gap 7 3 - 11 LAB CHEMISTRY METHOD 01/28/2025 4:30 PM [facility] Glucose 338(H) 70 - 100 mg/dL LAB CHEMISTRY METHOD 01/28/2025 4:30 PM [facility] BUN 15 5 - 25 mg/dL LAB CHEMISTRY METHOD 01/28/2025 4:30 PM [facility] Creatinine 0.87 0.50 - 1.10 mg/dL LAB CHEMISTRY METHOD 01/28/2025 4:30 PM [facility] LAB eGFR 64 >=60 mL/min/1. 73m2 LAB CHEMISTRY METHOD 01/28/2025 4:30 PM [facility] Comment:Calculation based on the??Chronic Kidney Disease Epidemiology Collaboration (CKD-EPI) equation refit??without adjustment for race. BUN/Creatinine Ratio 17.2 LAB CHEMISTRY METHOD 01/28/2025 4:30 PM EDT [facility] Calcium 8.7 8.5 - 10.5 mg/dL LAB CHEMISTRY METHOD 01/28/2025 4:30 PM EDT [facility] AST (SGOT) 14 10 - 42 unit/L LAB CHEMISTRY METHOD 01/28/2025 4:30 PM T [facility] ALT (SGPT) 13 10 - 60 unit/L LAB CHEMISTRY METHOD 01/28/2025 4:30 PM [facility] Alkaline Phosphatase 95 42 - 121 unit/L LAB CHEMISTRY METHOD 01/28/2025 4:30 PM EDT [facility] Total Protein 5.7(L) 6.0 - 8.0 g/dL LAB CHEMISTRY METHOD 01/28/2025 4:30 PM EDT [facility] Albumin 2.8(L) 3.2 - 5.0 g/dL LAB CHEMISTRY METHOD 01/28/2025 4:30 PM EDT [facility] Total Bilirubin 0.4 0.0 - 1.4 mg/dL LAB CHEMISTRY METHOD 01/28/2025 4:30 PM EDT [facility] Blood Venous blood specimen / Unknown Venipuncture / Unknown 01/28/2025 3:28 PM EDT 01/28/2025 3:54 PM EDT us Keli Dickinson MD LAB BLOOD ORDERABLES Final Resul t [facility] LAB [address] [place] [address], * (ABNORMAL) Hemoglobin A1c (11/19/2024 7:20 AM EST) Hemoglobin A1C 6.8(H) <6.5 % LAB CHEMISTRY METHOD 11/21/2024 10:21 AM EST [facility] Mean Bld Glu Estim. 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
--- OUTSIDE RECORDS SUMMARY | 2025-04-04 16:30 | XMS_ITS | Encounter Summary ---
Author Organization [facility] Address [address] [place] [address] Care Team Providers Care Aerospace Stress Engineer Name Role Phone Keli Dickinson MD Primary Care Provider [phone] Encounter Details Date Type Department Care Team (Latest Contact Info) Description 01/18/2025 Lab Requisition [facility] - Main Lab [address] [place] [address] Keli Dickinson MD [address] [place] [address] Type 2 diabetes mellitus without [...] EST Type 2 diabetes mellitus without complications ([facility]/HCC) Essential (primary) hypertension Hypo-osmolality and hyponatremia BASIC METABOLIC PANEL Routine 01/18/2025 9:14 AM EST Type 2 diabetes mellitus without complications (CMS/HCC) Essential (primary) hypertension Hypo-osmolality and hyponatremia documented in this encounter Results * (ABNORMAL) Basic metabolic panel (01/18/2025 9:14 AM EST) Sodium 137 133 - 145 mmol/L LAB CHEMISTRY METHOD 01/18/2025 2:[address] [facility] Potassium 3.7 3.5 - 5.5 mmol/L LAB CHEMISTRY METHOD 01/18/2025 2:47 PM [facility] Chloride 105 96 - 110 mmol/L LAB CHEMISTRY METHOD 01/18/2025 2:47 PM [facility] CO2 22 21 - 32 mmol/L LAB CHEMISTRY METHOD 01/18/2025 2:47 PM [facility] Anion Gap 10 3 - 11 LAB CHEMISTRY METHOD 01/18/2025 2:47 PM [facility] Glucose 257(H) 70 - 100 mg/dL LAB CHEMISTRY METHOD 01/18/2025 2:47 PM [facility] BUN 24 5 - 25 mg/dL LAB CHEMISTRY METHOD 01/18/2025 2:47 PM [facility] Creatinine 0.99 0.50 - 1.10 mg/dL LAB CHEMISTRY METHOD 01/18/2025 2:47 PM [facility] LAB eGFR 55(L) >=60 mL/min/1. 73m2 LAB CHEMISTRY METHOD 01/18/2025 2:47 PM [facility] LAB Comment:Calculation based on the??Chronic Kidney Disease Epidemiology Collaboration (CKD-EPI) equation refit??without adjustment for race. BUN/Creatinine Ratio 24.2 LAB CHEMISTRY METHOD 01/18/2025 2:47 PM [facility] Calcium 8.6 8.5 - 10.5 mg/dL LAB CHEMISTRY METHOD 01/18/2025 2:47 PM [facility] LAB Blood Venous blood specimen / Unknown Venipuncture / Unknown 01/18/2025 9:14 AM EST 01/18/2025 10:13 AM EST us Keli Dickinson MD LAB BLOOD ORDERABLES Final Resul t [facility] [address] [place] [address], * (ABNORMAL) Complete blood count (01/18/2025 9:14 AM EST) [facility] WBC 7.5 4.8 - 10.8 K/mcL LAB HEMETOLOGY METHOD 01/18/2025 11:33 AM [facility] RBC 3.90 3.80 - 4.80 M/mcL LAB HEMETOLOGY METHOD 01/18/2025 11:33 AM [facility] Hemoglobin 9.7(L) 11.5 - 16.0 g/dL LAB HEMETOLOGY METHOD 01/18/2025 11:33 AM [facility] Hematocrit 31.3(L) 35.0 - 47.0 % LAB HEMETOLOGY METHOD 01/18/2025 11:33 AM [facility] MCV 80.3 79.0 - 98.0 FL LAB HEMETOLOGY METHOD 01/18/2025 11:33 AM [facility] MCH 24.9(L) 27.0 - 32.0 pcg LAB HEMETOLOGY METHOD 01/18/2025 11:33 AM [facility] MCHC 31.0(L) 32.0 - 37.0 g/dL LAB HEMETOLOGY METHOD 01/18/2025 11:33 AM [facility] RDW 15.1(H) 11.0 - 15.0 % LAB HEMETOLOGY METHOD 01/18/2025 11:33 AM [facility] Platelets 229 130 - 400 K/mcL LAB HEMETOLOGY METHOD 01/18/2025 11:33 AM [facility] MPV 11.6(H) 7.0 - 11.0 FL LAB HEMETOLOGY METHOD 01/18/2025 11:33 AM [facility] LAB NRBC 0.0 <1.0 % LAB HEMETOLOGY METHOD 01/18/2025 11:33 AM [facility] LAB NRBC Absolute 0.00 <0.10 K/mcL LAB HEMETOLOGY METHOD 01/18/2025 11:33 AM EST [facility] Blood Venous blood specimen / Unknown Venipuncture / Unknown 01/18/2025 9:14 AM EST 01/18/2025 10:13 AM EST us Keli Dickinson MD LAB BLOOD ORDERABLES Final Resul t [facility] [address] [place] [address], documented in this encounter Visit Diagnoses Diagnosis Type 2 diabetes mellitus without complications (CMS/HCC V24, CMS/HCC V28) Essential (primary) hypertension Unspecified essential hypertension Hypo-osmolality and hyponatremia documented in this encounter 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
--- OUTSIDE RECORDS SUMMARY | 2025-04-04 16:30 | XMS_ITS | Encounter Summary ---
Author Organization [facility] Address [address] [place] [address] Care Team Providers Care Software Asset Manager Name Role Phone Keli Dickinson MD Primary Care Provider [phone] Encounter Details Date Type Department Care Team (Late st Contact Info) Description 11/08/[address] [facility] Lab [address] [place] [address] Marine Ryder MD [address] [place] [address] Encounter for other general examination Social History [...] PM EST) WBC 8.1 4.8 - 10.8 K/[facility] LAB HEMETOLOGY METHOD 11/08/2024 3:05 PM EST [facility] RBC 3.40(L) 3.80 - 4.80 M/mcL LAB HEMETOLOGY METHOD 11/08/2024 3:05 PM EST [facility] Hemoglobin 8.5(L) 11.5 - 16.0 g/dL LAB HEMETOLOGY METHOD 11/08/2024 3:05 PM [facility] LAB Hematocrit 28.0(L) 35.0 - 47.0 % LAB HEMETOLOGY METHOD 11/08/2024 3:05 PM [facility] MCV 82.8 79.0 - 98.0 FL LAB HEMETOLOGY METHOD 11/08/2024 3:05 PM [facility] MCH 25.1(L) 27.0 - 32.0 pcg LAB HEMETOLOGY METHOD 11/08/2024 3:05 PM [facility] MCHC 30.4(L) 32.0 - 37.0 g/dL LAB HEMETOLOGY METHOD 11/08/2024 3:05 PM [facility] RDW 19.1(H) 11.0 - 15.0 % LAB HEMETOLOGY METHOD 11/08/2024 3:05 PM [facility] Platelets 330 130 - 400 K/mcL LAB HEMETOLOGY METHOD 11/08/2024 3:05 PM [facility] MPV 11.2(H) 7.0 - 11.0 FL LAB HEMETOLOGY METHOD 11/08/2024 3:05 PM [facility] NRBC 0.0 <1.0 % LAB HEMETOLOGY METHOD 11/08/2024 3:05 PM [facility] NRBC Absolute 0.00 <0.10 K/mcL LAB HEMETOLOGY METHOD 11/08/2024 3:05 PM [facility] Neutrophils Relative 82.0 % LAB HEMETOLOGY METHOD 11/08/2024 3:05 PM [facility] Lymphocytes Relative 9.0 % LAB HEMETOLOGY METHOD 11/08/2024 3:05 PM [facility] Monocytes Relative 7.3 % LAB HEMETOLOGY METHOD 11/08/2024 3:05 PM [facility] Eosinophils Relative 0.7 % LAB HEMETOLOGY METHOD 11/08/2024 3:05 PM [facility] Basophils Relative 0.4 % LAB HEMETOLOGY METHOD 11/08/2024 3:05 PM [facility] Immature Granulocytes Relative 0.6 % LAB HEMETOLOGY METHOD 11/08/2024 3:05 PM [facility] Neutrophils Absolute 6.64 1.50 - 7.00 K/mcL LAB HEMETOLOGY METHOD 11/08/2024 3:05 PM [facility] Lymphocytes Absolute 0.73(L) 1.00 - 5.00 K/mcL LAB HEMETOLOGY METHOD 11/08/2024 3:05 PM [facility] Monocytes Absolute 0.59 0.20 - 1.00 K/mcL LAB HEMETOLOGY METHOD 11/08/2024 3:05 PM [facility] Eosinophils Absolute 0.06 0.00 - 0.50 K/mcL LAB HEMETOLOGY METHOD 11/08/2024 3:05 PM [facility] Basophils Absolute 0.03 0.00 - 0.20 K/mcL LAB HEMETOLOGY METHOD 11/08/2024 3:05 PM [facility] Immature Granulocytes Absolute 0.05(H) 0.00 - 0.03 K/mcL LAB HEMETOLOGY METHOD 11/08/2024 3:05 PM [facility] Blood Venous blood specimen / Unknown Venipuncture / Unknown 11/08/2024 1:11 PM EST 11/08/2024 2:48 PM EST us Marine Ryder MD LAB BLOOD ORDERABLES Final Resu lt [facility] [address] [place] [address], documented in this encounter Visit Diagnoses Diagnosis Encounter for other general examination documented in this encounter Additional Health Concerns Infection Onset Date Last Indicated Resolved Time 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
--- OUTSIDE RECORDS SUMMARY | 2025-04-04 16:30 | XMS_ITS | Encounter Summary ---
Author Organization [facility] Address [address] [place] [address] Care Team Providers Care Energy Sales Consultant Name Role Phone Keli Dickinson MD Primary Care Provider [phone] Encounter Details Date Type Department Care Team (Late st Contact Info) Description 02/06/2025 Lab Requisition [facility] [address] [place] [address] Keli Dickinson MD [address] [place] [address] Syncope and collapse Social History [...] LAB CHEMISTRY METHOD 02/06/2025 12:38 PM EDT [facility] Potassium 4.4 3.5 - 5.5 mmol/L LAB CHEMISTRY METHOD 02/06/2025 12:38 PM EDT [facility] Chloride 103 96 - 110 mmol/L LAB CHEMISTRY METHOD 02/06/2025 12:38 PM T [facility] CO2 26 21 - 32 mmol/L LAB CHEMISTRY METHOD 02/06/2025 12:38 PM EDT [facility] Anion Gap 6 3 - 11 LAB CHEMISTRY METHOD 02/06/2025 12:38 PM [facility] Glucose 58(L) 70 - 100 mg/dL LAB CHEMISTRY METHOD 02/06/2025 12:38 PM EDT [facility] BUN 17 5 - 25 mg/dL LAB CHEMISTRY METHOD 02/06/2025 12:38 PM EDT [facility] Creatinine 0.66 0.50 - 1.10 mg/dL LAB CHEMISTRY METHOD [facility] eGFR 84 >=60 mL/min/1. 73m2 LAB CHEMISTRY METHOD 02/06/2025 12:38 PM EDT [facility] Comment:Calculation based on the??Chronic Kidney Disease Epidemiology Collaboration (CKD-EPI) equation refit??without adjustment for race. BUN/Creatinine Ratio 25.8 LAB CHEMISTRY METHOD 02/06/2025 12:38 PM [facility] Calcium 8.7 8.5 - 10.5 mg/dL LAB CHEMISTRY METHOD 02/06/2025 12:38 PM [facility] Blood Venous blood specimen / Unknown Venipuncture / Unknown 02/06/2025 7:07 AM EDT 02/06/2025 10:22 AM EDT us Keli Dickinson MD LAB BLOOD ORDERABLES Final Resul t [facility] [address] [place] [address], * (ABNORMAL) Complete blood count (02/06/2025 7:07 AM EDT) WBC 8.2 4.8 - 10.8 K/mcL LAB HEMETOLOGY METHOD 02/06/2025 11:56 AM [facility] RBC 4.10 3.80 - 4.80 M/mcL LAB HEMETOLOGY METHOD 02/06/2025 11:56 AM [facility] Hemoglobin 10.4(L) 11.5 - 16.0 g/dL LAB HEMETOLOGY METHOD 02/06/2025 11:56 AM [facility] Hematocrit 34.0(L) 35.0 - 47.0 % LAB HEMETOLOGY METHOD 02/06/2025 11:56 AM [facility] MCV 82.9 79.0 - 98.0 FL LAB HEMETOLOGY METHOD 02/06/2025 11:56 AM [facility] MCH 25.4(L) 27.0 - 32.0 pcg LAB HEMETOLOGY METHOD 02/06/2025 11:56 AM [facility] MCHC 30.6(L) 32.0 - 37.0 g/dL LAB HEMETOLOGY METHOD 02/06/2025 11:56 AM [facility] RDW 15.9(H) 11.0 - 15.0 % LAB HEMETOLOGY METHOD 02/06/2025 11:56 AM [facility] Platelets 228 130 - 400 K/mcL LAB HEMETOLOGY METHOD 02/06/2025 11:56 AM [facility] MPV 11.6(H) 7.0 - 11.0 FL LAB HEMETOLOGY METHOD 02/06/2025 11:56 AM [facility] NRBC 0.0 <1.0 % LAB HEMETOLOGY METHOD 02/06/2025 11:56 AM [facility] NRBC Absolute 0.00 <0.10 K/mcL LAB HEMETOLOGY METHOD 02/06/2025 11:56 AM [facility] Blood Venous blood specimen / Unknown Venipuncture / Unknown 02/06/2025 7:07 AM EDT 02/06/2025 10:22 AM EDT us Keli Dickinson MD LAB BLOOD ORDERABLES Final Resul t [facility] [address] [place] [address], documented in this encounter Visit Diagnoses Diagnosis Syncope and collapse documented in this encounter 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
--- OUTSIDE RECORDS SUMMARY | 2025-04-04 16:30 | XMS_ITS | Encounter Summary ---
Author Organization [facility] Address [address] [place] [address] Care Team Providers Care Warpman Name Role Phone Keli Dickinson MD Primary Care Provider [phone] Encounter Details Date Type Department Care Team (Late st Contact Info) Description 11/15/2024 Lab Requisition [facility] Lab [address] [place] [address] Marine Ryder MD [address] [place] [address] Encounter for other general examination Social History [...] LAB HEMETOLOGY METHOD 11/15/2024 10:33 AM EST [facility] RBC 3.20(L) 3.80 - 4.80 M/mcL LAB HEMETOLOGY METHOD 11/15/2024 10:33 AM EST [facility] Hemoglobin 8.1(L) 11.5 - 16.0 g/dL LAB HEMETOLOGY METHOD 11/15/2024 10:33 AM [facility] Hematocrit 26.4(L) 35.0 - 47.0 % LAB HEMETOLOGY METHOD 11/15/2024 10:33 AM [facility] MCV 83.5 79.0 - 98.0 FL LAB HEMETOLOGY METHOD 11/15/2024 10:33 AM [facility] MCH 25.6(L) 27.0 - 32.0 pcg LAB HEMETOLOGY METHOD 11/15/2024 10:33 AM [facility] MCHC 30.7(L) 32.0 - 37.0 g/dL LAB HEMETOLOGY METHOD 11/15/2024 10:33 AM [facility] RDW 20.1(H) 11.0 - 15.0 % LAB HEMETOLOGY METHOD 11/15/2024 10:33 AM [facility] Platelets 380 130 - 400 K/mcL LAB HEMETOLOGY METHOD 11/15/2024 10:33 AM [facility] MPV 10.6 7.0 - 11.0 FL LAB HEMETOLOGY METHOD 11/15/2024 10:33 AM [facility] NRBC 0.0 <1.0 % LAB HEMETOLOGY METHOD 11/15/2024 10:33 AM [facility] NRBC Absolute 0.00 <0.10 K/mcL LAB HEMETOLOGY METHOD 11/15/2024 10:33 AM [facility] Blood Venous blood specimen / Unknown Venipuncture / Unknown 11/15/2024 4:57 AM EST 11/15/2024 9:39 AM EST us Marine Ryder MD LAB BLOOD ORDERABLES Final Resu lt [facility] [address] [place] [address], * (ABNORMAL) Basic metabolic panel (11/15/2024 4:57 AM EST) Sodium 135 133 - 145 mmol/L LAB CHEMISTRY METHOD 11/15/2024 10:55 AM [facility] Potassium 4.6 3.5 - 5.5 mmol/L LAB CHEMISTRY METHOD 11/15/2024 10:55 AM [facility] Chloride 104 96 - 110 mmol/L LAB CHEMISTRY METHOD 11/15/2024 10:55 AM [facility] CO2 25 21 - 32 mmol/L LAB CHEMISTRY METHOD 11/15/2024 10:55 AM [facility] Anion Gap 6 3 - 11 LAB CHEMISTRY METHOD 11/15/2024 10:55 AM [facility] Glucose 101(H) 70 - 100 mg/dL LAB CHEMISTRY METHOD 11/15/2024 10:55 AM [facility] BUN 31(H) 5 - 25 mg/dL LAB CHEMISTRY METHOD 11/15/2024 10:55 AM [facility] Creatinine 0.88 0.50 - 1.10 mg/dL LAB CHEMISTRY METHOD 11/15/2024 10:55 AM [facility] eGFR 63 >=60 mL/min/1. 73m2 LAB CHEMISTRY METHOD 11/15/2024 10:55 AM [facility] Comment:Calculation based on the??Chronic Kidney Disease Epidemiology Collaboration (CKD-EPI) equation refit??without adjustment for race. BUN/Creatinine Ratio 35.2 LAB CHEMISTRY METHOD 11/15/2024 10:55 AM [facility] Calcium 8.3(L) 8.5 - 10.5 mg/dL LAB CHEMISTRY METHOD 11/15/2024 10:55 AM [facility] Blood Venous blood specimen / Unknown Venipuncture / Unknown 11/15/2024 4:57 AM EST 11/15/2024 9:39 AM EST us Marine Ryder MD LAB BLOOD ORDERABLES Final [facility]u lt 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
--- OUTSIDE RECORDS SUMMARY | 2025-04-04 16:30 | XMS_ITS | Encounter Summary ---
Author Organization [facility] Address [address] [place] [address] Care Team Providers Care Director Loss Prevention Name Role Phone Keli Dickinson MD Primary Care Provider [phone] Encounter Details Date Type Department Care Team (Late st Contact Info) Description 11/08/[address] [facility] - Main Lab [address] [place] [address] Marine Ryder MD [address] [place] [address] Encounter for other general examination Social History [...] and culture (11/08/2024 9:53 AM EST) Specific [place] Urine 1.024 1.003 - 1.030 LAB URINALYSIS - AUTOMATED METHOD 11/08/2024 10:31 AM EST [facility] pH, Urine 5.5 5.0 - 8.0 pH LAB URINALYSIS - AUTOMATED METHOD 11/08/2024 10:31 AM [facility] Leukocytes, Urine Negative Negative LAB URINALYSIS - AUTOMATED METHOD 11/08/2024 10:31 AM [facility] Nitrite, Urine Negative Negative LAB URINALYSIS - AUTOMATED METHOD 11/08/2024 10:31 AM [facility] Protein, Urine 30(A) <=Trace mg/dL LAB URINALYSIS - AUTOMATED METHOD 11/08/2024 10:31 AM [facility] Glucose, Urine >=1000(A) Negative mg/dL LAB URINALYSIS - AUTOMATED METHOD 11/08/2024 10:31 AM [facility] Ketones, Urine Trace(A) Negative mg/dL LAB URINALYSIS - AUTOMATED METHOD 11/08/2024 10:31 AM [facility] Urobilinogen , Urine 1.0 0.2 - 1.0 mg/dL LAB URINALYSIS - AUTOMATED METHOD 11/08/2024 10:31 AM [facility] Bilirubin, Urine Negative Negative LAB URINALYSIS - AUTOMATED METHOD 11/08/2024 10:31 AM [facility] Blood, Urine Negative Negative LAB URINALYSIS - AUTOMATED METHOD 11/08/2024 10:31 AM [facility] RBC, Urine 1.1 0 - 4 /HPF LAB URINALYSIS - AUTOMATED METHOD 11/08/2024 10:31 AM [facility] WBC, Urine 3.2 0 - 4 /HPF LAB URINALYSIS - AUTOMATED METHOD 11/08/2024 10:31 AM [facility] Squamous Epithelial, Urine 55 0 - 60 /LPF LAB URINALYSIS - AUTOMATED METHOD 11/08/2024 10:31 AM [facility] Bacteria, Urine Negative Negative /HPF LAB URINALYSIS - AUTOMATED METHOD 11/08/2024 10:31 AM [facility] Hyaline Casts, Urine 8.8(H) 0 - 3 /LPF LAB URINALYSIS - AUTOMATED METHOD 11/08/2024 10:31 AM EST [facility] Urine Urine specimen obtained by clean catch procedure / Unknown 11/08/2024 9:53 AM EST 11/08/2024 9:55 AM EST us Marine Ryder MD LAB URINE ORDERABLES Final Resu lt Performing Organization Address City/[facility]/ZIP Co de Phone Number [facility] [address] [place] [address], [place] [phone] * [place] urine culture tube (11/08/2024 9:53 AM EST) Extra Tube Hold for add-ons. 11/08/2024 11:02 AM EST [facility] Comment:Auto resulted. 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
--- OUTSIDE RECORDS SUMMARY | 2025-04-04 16:30 | XMS_ITS | Encounter Summary ---
Author Organization [facility] Address [address] [place] [address] Care Team Providers Care Dust Mixer Name Role Phone Keli Dickinson MD Primary Care Provider [phone] Encounter Details Date Type Department Care Team (Late st Contact Info) Description 11/13/2024 Lab Requisition [facility] Lab [address] [place] [address] Marine Ryder MD [address] [place] [address] Encounter for other general examination Social History [...] LAB HEMETOLOGY METHOD 11/13/2024 8:42 AM EST [facility] RBC 3.00(L) 3.80 - 4.80 M/[facility] LAB HEMETOLOGY METHOD 11/13/2024 8:42 AM EST [facility] Hemoglobin 7.7(L) 11.5 - 16.0 g/dL LAB HEMETOLOGY METHOD 11/13/2024 8:42 AM [facility] Hematocrit 25.4(L) 35.0 - 47.0 % LAB HEMETOLOGY METHOD 11/13/2024 8:42 AM [facility] MCV 83.8 79.0 - 98.0 FL LAB HEMETOLOGY METHOD 11/13/2024 8:42 AM [facility] MCH 25.4(L) 27.0 - 32.0 pcg LAB HEMETOLOGY METHOD 11/13/2024 8:42 AM [facility] MCHC 30.3(L) 32.0 - 37.0 g/dL LAB HEMETOLOGY METHOD 11/13/2024 8:42 AM [facility] RDW 20.0(H) 11.0 - 15.0 % LAB HEMETOLOGY METHOD 11/13/2024 8:42 AM [facility] Platelets 335 130 - 400 K/mcL LAB HEMETOLOGY METHOD 11/13/2024 8:42 AM [facility] MPV 10.7 7.0 - 11.0 FL LAB HEMETOLOGY METHOD 11/13/2024 8:42 AM [facility] NRBC 0.0 <1.0 % LAB HEMETOLOGY METHOD 11/13/2024 8:42 AM [facility] NRBC Absolute 0.00 <0.10 K/mcL LAB HEMETOLOGY METHOD 11/13/2024 8:42 AM [facility] Neutrophils Relative 70.3 % LAB HEMETOLOGY METHOD 11/13/2024 8:42 AM [facility] Lymphocytes Relative 16.4 % LAB HEMETOLOGY METHOD 11/13/2024 8:42 AM [facility] Monocytes Relative 10.4 % LAB HEMETOLOGY METHOD 11/13/2024 8:42 AM [facility] Eosinophils Relative 1.7 % LAB HEMETOLOGY METHOD 11/13/2024 8:42 AM EST [facility] Basophils Relative 0.6 % LAB HEMETOLOGY METHOD 11/13/2024 8:42 AM [facility] Immature Granulocytes Relative 0.6 % LAB HEMETOLOGY METHOD 11/13/2024 8:42 AM [facility] Neutrophils Absolute 6.14 1.50 - 7.00 K/mcL LAB HEMETOLOGY METHOD 11/13/2024 8:42 AM EST [facility] Lymphocytes Absolute 1.43 1.00 - 5.00 K/mcL LAB HEMETOLOGY METHOD 11/13/2024 8:42 AM [facility] Monocytes Absolute 0.91 0.20 - 1.00 K/mcL LAB HEMETOLOGY METHOD 11/13/2024 8:42 AM EST [facility] Eosinophils Absolute 0.15 0.00 - 0.50 K/mcL LAB HEMETOLOGY METHOD 11/13/2024 8:42 AM EST [facility] Basophils Absolute 0.05 0.00 - 0.20 K/mcL LAB HEMETOLOGY METHOD 11/13/2024 8:42 AM [facility] Immature Granulocytes Absolute 0.05(H) 0.00 - 0.03 K/mcL LAB HEMETOLOGY METHOD 11/13/2024 8:42 AM [facility] Blood Venous blood specimen / Unknown Venipuncture / Unknown 11/13/2024 5:46 AM EST 11/13/2024 7:38 AM EST us Marine Ryder MD LAB BLOOD ORDERABLES Final Resu lt [facility] [address] [place] [address], documented in this encounter Visit Diagnoses Diagnosis Encounter for other general examination documented in this encounter Additional Health Concerns Infection Onset Date Last Indicated Resolved Time Gastrointestinal Rule-Out 11/15/2024 11/15/2024 2:43 PM EST 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
--- OUTSIDE RECORDS SUMMARY | 2025-04-04 16:30 | XMS_ITS | Encounter Summary ---
Author Organization [facility] Address [address] [place] [address] Care Team Providers Care Filer Helper Name Role Phone Keli Dickinson MD Primary Care Provider [phone] Encounter Details Date Type Department Care Team (Late st Contact Info) Description 12/01/2024 Lab Requisition [facility] Lab [address] [place] [address] Keli Dickinson MD [address] [place] [address] Other osteonecrosis, unspecified femur (CMS/HCC [...] AM EST) WBC 7.1 4.8 - 10.8 K/[facility] LAB HEMETOLOGY METHOD 12/01/2024 12:50 PM EST [facility] RBC 3.70(L) 3.80 - 4.80 /[facility] LAB HEMETOLOGY METHOD 12/01/2024 12:50 PM [place] [...] LAB HEMETOLOGY METHOD 12/01/2024 12:50 PM EST [facility] LAB Monocytes Relative 8.4 [...] MD LAB BLOOD ORDERABLES Final Resul t [facility] LAB [address] [place] [address], documented in this encounter Visit Diagnoses Diagnosis Other osteonecrosis, unspecified femur (CMS/[facility] V24, CMS/[facility] V28) documented in this encounter Additional Health Concerns 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
--- OUTSIDE RECORDS SUMMARY | 2025-04-04 16:30 | XMS_ITS | Encounter Summary ---
Author Organization [facility] Address [address] [place] [address] Care Team Providers Care Color Buffer Name Role Phone Keli Dickinson MD Primary Care Provider [phone] Encounter Details Date Type Department Care Team (Late st Contact Info) Description 11/11/2024 Lab Requisition [facility] Lab [address] [place] [address] Marine Ryder MD [address] [place] [phone] Encounter for other general examination Social History [...] AM EST) WBC 8.2 4.8 - 10.8 K/[facility] LAB HEMETOLOGY METHOD 11/11/2024 10:22 AM EST [facility] LAB RBC 3.00(L) 3.80 - 4.80 M/[facility] LAB HEMETOLOGY METHOD 11/11/2024 10:22 AM [facility] LAB Hemoglobin 7.7(L) 11.5 - 16.0 g/dL LAB HEMETOLOGY METHOD 11/11/2024 10:22 AM [facility] LAB Hematocrit 25.3(L) 35.0 - 47.0 % LAB HEMETOLOGY METHOD 11/11/2024 10:22 AM [facility] LAB MCV 83.8 79.0 - 98.0 FL LAB HEMETOLOGY METHOD 11/11/2024 10:22 AM [facility] LAB MCH 25.5(L) 27.0 - 32.0 pcg LAB HEMETOLOGY METHOD 11/11/2024 10:22 AM [facility] LAB MCHC 30.4(L) 32.0 - 37.0 g/dL LAB HEMETOLOGY METHOD 11/11/2024 10:22 AM [facility] LAB RDW 19.6(H) 11.0 - 15.0 % LAB HEMETOLOGY METHOD 11/11/2024 10:22 AM [facility] LAB Platelets 320 130 - 400 K/mcL LAB HEMETOLOGY METHOD 11/11/2024 10:22 AM [facility] LAB MPV 11.1(H) 7.0 - 11.0 FL LAB HEMETOLOGY METHOD 11/11/2024 10:22 AM [facility] LAB NRBC 0.0 <1.0 % LAB HEMETOLOGY METHOD 11/11/2024 10:22 AM [facility] LAB NRBC Absolute 0.00 <0.10 K/mcL LAB HEMETOLOGY METHOD 11/11/2024 10:22 AM [facility] LAB Neutrophils Relative 74.2 % LAB HEMETOLOGY METHOD 11/11/2024 10:22 AM [facility] LAB Lymphocytes Relative 13.1 % LAB HEMETOLOGY METHOD 11/11/2024 10:22 AM [facility] LAB Monocytes Relative 9.6 % LAB HEMETOLOGY METHOD 11/11/2024 10:[address] [facility] LAB Eosinophils Relative 2.1 % LAB HEMETOLOGY METHOD 11/11/2024 10:22 AM [facility] LAB Basophils Relative 0.5 % LAB HEMETOLOGY METHOD 11/11/2024 10:22 AM [facility] LAB Immature Granulocytes Relative 0.5 % LAB HEMETOLOGY METHOD 11/11/2024 10:22 AM [facility] LAB Neutrophils Absolute 6.08 1.50 - 7.00 K/mcL LAB HEMETOLOGY METHOD 11/11/2024 10:22 AM [facility] LAB Lymphocytes Absolute 1.07 1.00 - 5.00 K/mcL LAB HEMETOLOGY METHOD 11/11/2024 10:22 AM [facility] LAB Monocytes Absolute 0.79 0.20 - 1.00 K/mcL LAB HEMETOLOGY METHOD 11/11/2024 10:[address] [facility] LAB Eosinophils Absolute 0.17 0.00 - 0.50 K/mcL LAB HEMETOLOGY METHOD 11/11/2024 10:22 AM [facility] LAB Basophils Absolute 0.04 0.00 - 0.20 K/mcL LAB HEMETOLOGY METHOD 11/11/2024 10:22 AM [facility] LAB Immature Granulocytes Absolute 0.04(H) 0.00 - 0.03 K/mcL LAB HEMETOLOGY METHOD 11/11/2024 10:22 AM [facility] LAB Blood Venous blood specimen / Unknown Venipuncture / Unknown 11/11/2024 7:00 AM EST 11/11/2024 9:18 AM EST us Marine Ryder MD LAB BLOOD ORDERABLES Final Resu lt [facility] LAB [address] [place] [address], [place] [phone] * (ABNORMAL) Comprehensive metabolic panel (11/11/2024 7:00 AM EST) Sodium 133 133 - 145 mmol/L LAB CHEMISTRY METHOD 11/11/2024 10:36 AM [facility] LAB Potassium 4.9 3.5 - 5.5 mmol/L LAB CHEMISTRY METHOD 11/11/2024 10:36 AM [facility] LAB Chloride 99 96 - 110 mmol/L LAB CHEMISTRY METHOD 11/11/2024 10:36 AM [facility] LAB CO2 25 21 - 32 mmol/L LAB CHEMISTRY METHOD 11/11/2024 10:36 AM [facility] LAB Anion Gap 9 3 - 11 LAB CHEMISTRY METHOD 11/11/2024 10:36 AM [facility] LAB Glucose 255(H) 70 - 100 mg/dL LAB CHEMISTRY METHOD 11/11/2024 10:36 AM [facility] LAB BUN 28(H) 5 - 25 mg/dL LAB CHEMISTRY METHOD 11/11/2024 10:36 AM [facility] LAB Creatinine 0.83 0.50 - 1.10 mg/dL LAB CHEMISTRY METHOD 11/11/2024 10:36 AM [facility] LAB eGFR 67 >=60 mL/min/1. 73m2 LAB CHEMISTRY METHOD 11/11/2024 10:36 AM [facility] LAB Comment:Calculation based on the??Chronic Kidney Disease Epidemiology Collaboration (CKD-EPI) equation refit??without adjustment for race. BUN/Creatinine Ratio 33.7 LAB CHEMISTRY METHOD 11/11/2024 10:36 AM [facility] LAB Calcium 8.0(L) 8.5 - 10.5 mg/dL LAB CHEMISTRY METHOD 11/11/2024 10:36 AM [facility] LAB AST (SGOT) 23 10 - 42 unit/L LAB CHEMISTRY METHOD 11/11/2024 10:36 AM [facility] LAB ALT (SGPT) 14 10 - 60 unit/L LAB CHEMISTRY METHOD 11/11/2024 10:[address] [facility] LAB Alkaline Phosphatase 87 42 - 121 unit/L LAB CHEMISTRY METHOD 11/11/2024 10:36 AM [facility] LAB Total Protein 5.2(L) 6.0 - 8.0 g/dL LAB CHEMISTRY METHOD 11/11/2024 10:[address] [facility] LAB Albumin 2.3(L) 3.2 - 5.0 g/dL LAB CHEMISTRY METHOD 11/11/2024 10:36 AM [facility] LAB Total Bilirubin 0.9 0.0 - 1.4 mg/dL LAB CHEMISTRY METHOD 11/11/2024 10:36 AM [facility] LAB Blood Venous blood specimen / Unknown Venipuncture / Unknown 11/11/2024 7:00 AM EST 11/11/2024 9:18 AM EST us Marine Ryder MD LAB BLOOD ORDERABLES Final Resu lt 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
--- OUTSIDE RECORDS SUMMARY | 2025-04-04 16:30 | XMS_ITS | Encounter Summary ---
[facility] Address [address] [place] [address] Care Team Providers Care Program Director Name Role Phone Keli Dickinson MD Primary Care Provider [phone] Encounter Details Date Type Department Care Team (Late st Contact Info) Description 11/07/[address] [facility] Lab [address] [facility] [place] [address] Marine Ryder MD [address] [place] [phone] Encounter for other general examination Social History [...] LAB CHEMISTRY METHOD 11/07/2024 11:24 AM EST [facility] LAB Potassium 4.8 3.5 - 5.5 mmol/L LAB CHEMISTRY METHOD 11/07/2024 11:24 AM EST [facility] LAB Chloride 97 96 - 110 mmol/L LAB CHEMISTRY METHOD 11/07/2024 11:24 AM EST [facility] LAB CO2 29 21 - 32 mmol/L LAB CHEMISTRY METHOD 11/07/2024 11:24 AM EST [facility] LAB Anion Gap 7 3 - [...] MD LAB BLOOD ORDERABLES Final Resu lt [facility] LAB [address] [place] [address], documented in this encounter Visit Diagnoses Diagnosis Encounter for other general examination documented in this encounter Additional Health Concerns Infection Onset Date Last Indicated Resolved Time Gastrointestinal Rule-Out 11/15/2024 11/15/2024 2:43 PM EST 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
--- OUTSIDE RECORDS SUMMARY | 2025-04-04 16:30 | XMS_ITS | Encounter Summary ---
Author Organization [facility] Address [address] [place] [address] Care Team Providers Care Insurance Plan Specialist Name Role Phone Keli Dickinson MD Primary Care Provider [phone] Encounter Details Date Type Department Care Team (Late st Contact Info) Description 11/05/2024 Lab Requisition [facility] - Main Lab [address] [place] [address] Marine Ryder MD [address] [place] [address] Encounter for other general examination Social History [...] LAB HEMETOLOGY METHOD 11/05/2024 10:00 AM EST [facility] RBC 3.20(L) 3.80 - 4.80 M/mcL LAB HEMETOLOGY METHOD 11/05/2024 10:00 AM [facility] LAB Hemoglobin 8.0(L) 11.5 - 16.0 g/dL LAB HEMETOLOGY METHOD 11/05/2024 10:00 AM [facility] LAB Hematocrit 25.6(L) 35.0 - 47.0 % LAB HEMETOLOGY METHOD 11/05/2024 10:00 AM [facility] LAB MCV 81.0 79.0 - 98.0 FL LAB HEMETOLOGY METHOD 11/05/2024 10:00 AM [facility] LAB MCH 25.3(L) 27.0 - 32.0 pcg LAB HEMETOLOGY METHOD 11/05/2024 10:00 AM [facility] LAB MCHC 31.3(L) 32.0 - 37.0 g/dL LAB HEMETOLOGY METHOD 11/05/2024 10:00 AM [facility] LAB RDW 18.3(H) 11.0 - 15.0 % LAB HEMETOLOGY METHOD 11/05/2024 10:00 AM [facility] LAB Platelets 254 130 - 400 K/mcL LAB HEMETOLOGY METHOD 11/05/2024 10:00 AM [facility] LAB MPV 11.7(H) 7.0 - 11.0 FL LAB HEMETOLOGY METHOD 11/05/2024 10:00 AM [facility] LAB NRBC 0.0 <1.0 % LAB HEMETOLOGY METHOD 11/05/2024 10:00 AM [facility] LAB NRBC Absolute 0.00 <0.10 K/mcL LAB HEMETOLOGY METHOD 11/05/2024 10:00 AM [facility] LAB Neutrophils Relative 77.4 % LAB HEMETOLOGY METHOD 11/05/2024 10:00 AM [facility] LAB Lymphocytes Relative 12.2 % LAB HEMETOLOGY METHOD 11/05/2024 10:00 AM [facility] LAB Monocytes Relative 8.8 % LAB HEMETOLOGY METHOD 11/05/2024 10:00 AM [facility] LAB Eosinophils Relative 0.9 % LAB HEMETOLOGY METHOD 11/05/2024 10:00 AM [facility] LAB Basophils Relative 0.3 % LAB HEMETOLOGY METHOD 11/05/2024 10:00 AM [facility] LAB Immature Granulocytes Relative 0.4 % LAB HEMETOLOGY METHOD 11/05/2024 10:00 AM [facility] LAB Neutrophils Absolute 7.66(H) 1.50 - 7.00 K/mcL LAB HEMETOLOGY METHOD 11/05/2024 10:00 AM [facility] LAB Lymphocytes Absolute 1.21 1.00 - 5.00 K/mcL LAB HEMETOLOGY METHOD 11/05/2024 10:00 AM [facility] LAB Monocytes Absolute 0.87 0.20 - 1.00 K/mcL LAB HEMETOLOGY METHOD 11/05/2024 10:00 AM [facility] LAB Eosinophils Absolute 0.09 0.00 - 0.50 K/mcL LAB HEMETOLOGY METHOD 11/05/2024 10:00 AM [facility] LAB Basophils Absolute 0.03 0.00 - 0.20 K/mcL LAB HEMETOLOGY METHOD 11/05/2024 10:00 AM [facility] LAB Immature Granulocytes Absolute 0.04(H) 0.00 - 0.03 K/mcL LAB HEMETOLOGY METHOD 11/05/2024 10:00 AM [facility] LAB Blood Venous blood specimen / Unknown Venipuncture / Unknown 11/05/2024 5:12 AM EST 11/05/2024 8:55 AM EST us Marine Ryder MD LAB BLOOD ORDERABLES Final Resu lt Performing Organization Address [facility]/ZIP Co de Phone Number [facility] LAB [address] [place] [address], * Magnesium (11/05/2024 5:12 AM EST) Magnesium 2.5 1.9 - 2.6 mg/dL LAB CHEMISTRY METHOD 11/05/2024 10:41 AM EST [facility] LAB Blood Venous blood specimen / Unknown Venipuncture / Unknown 11/05/2024 5:12 AM EST 11/05/2024 8:55 AM EST Marine Ryder MD LAB BLOOD ORDERABLES Final Resu lt Performing Organization Address [facility]/ZIP Co de Phone Number [facility] [address] [place] [address], * (ABNORMAL) Comprehensive metabolic panel (11/05/2024 5:12 AM EST) Pathologist [facility] Sodium 132(L) 133 - 145 mmol/L LAB CHEMISTRY METHOD 11/05/2024 10:42 AM [facility] LAB Potassium 5.2 3.5 - 5.5 mmol/L LAB CHEMISTRY METHOD 11/05/2024 10:42 AM [facility] LAB Chloride 99 96 - 110 mmol/L LAB CHEMISTRY METHOD 11/05/2024 10:42 AM [facility] LAB CO2 29 21 - 32 mmol/L LAB CHEMISTRY METHOD 11/05/2024 10:42 AM [facility] LAB Anion Gap 4 3 - 11 LAB CHEMISTRY METHOD 11/05/2024 10:42 AM [facility] LAB Glucose 256(H) 70 - 100 mg/dL LAB CHEMISTRY METHOD 11/05/2024 10:42 AM [facility] LAB BUN 39(H) 5 - 25 mg/dL LAB CHEMISTRY METHOD 11/05/2024 10:42 AM [facility] LAB Creatinine 0.87 0.50 - 1.10 mg/dL LAB CHEMISTRY METHOD 11/05/2024 10:42 AM [facility] LAB eGFR 64 >=60 mL/min/1. 73m2 LAB CHEMISTRY METHOD 11/05/2024 10:42 AM [facility] LAB Comment:Calculation based on the??Chronic Kidney Disease Epidemiology Collaboration (CKD-EPI) equation refit??without adjustment for race. BUN/Creatinine Ratio 44.8 LAB CHEMISTRY METHOD 11/05/2024 10:42 AM [facility] LAB Calcium 8.2(L) 8.5 - 10.5 mg/dL LAB CHEMISTRY METHOD 11/05/2024 10:42 AM [facility] LAB AST (SGOT) 56(H) 10 - 42 unit/L LAB CHEMISTRY METHOD 11/05/2024 10:42 AM [facility] LAB ALT (SGPT) 16 10 - 60 unit/L LAB CHEMISTRY METHOD 11/05/2024 10:42 AM [facility] LAB Alkaline Phosphatase 77 42 - 121 unit/L LAB CHEMISTRY METHOD 11/05/2024 10:42 AM [facility] LAB Total Protein 5.1(L) 6.0 - 8.0 g/dL LAB CHEMISTRY METHOD 11/05/2024 10:42 AM [facility] LAB Albumin 2.5(L) 3.2 - 5.0 g/dL LAB CHEMISTRY METHOD 11/05/2024 10:42 AM [facility] LAB Total Bilirubin 0.8 0.0 - 1.4 mg/dL LAB CHEMISTRY METHOD 11/05/2024 10:42 AM [facility] LAB Blood Venous blood specimen / Unknown Venipuncture / Unknown 11/05/2024 5:12 AM EST 11/05/2024 8:55 AM EST us Marine Ryder MD LAB BLOOD ORDERABLES Final Resu lt [facility] [address] [place] [address], documented in this encounter Visit Diagnoses Diagnosis Encounter for other general examination documented in this encounter Additional Health Concerns Infection Onset Date Last Indicated Resolved Time Gastrointestinal Rule-Out 11/15/2024 11/15/2024 2:43 PM EST 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
--- OUTSIDE RECORDS SUMMARY | 2025-04-04 16:30 | XMS_ITS | Encounter Summary ---
Author Organization [facility] Address [address] [place] [address] Care Team Providers Care Apricot Packer Name Role Phone Keli Dickinson MD Primary Care Provider [phone] Encounter Details Date Type Department Care Team (Latest Contact Info) Description 11/19/2024 Lab Requisition [facility] - Main Lab [address] [place] [address] Keli Dickinson MD [address] [place] [address] Type 2 diabetes mellitus without [...] EST Type 2 diabetes mellitus without complications ([facility]/HCC) Anemia, unspecified HEMOGLOBIN A1C Routine 11/19/2024 7:20 AM EST Type 2 diabetes mellitus without complications (CMS/HCC) Anemia, unspecified COMPREHENSIVE METABOLIC PANEL Routine 11/19/2024 7:20 AM EST Type 2 diabetes mellitus without complications ([facility]) Anemia, unspecified documented in this encounter Results * (ABNORMAL) Hemoglobin A1c (11/19/2024 7:20 AM EST) Hemoglobin A1C 6.8(H) <6.5 % LAB CHEMISTRY METHOD 11/21/2024 10:21 AM EST [facility] LAB Mean Bld Glu Estim. 148 mg/dL LAB CHEMISTRY METHOD 11/21/2024 10:21 AM [facility] LAB Blood Venous blood specimen / Unknown Venipuncture / Unknown 11/19/2024 7:20 AM EST 11/19/2024 11:06 AM EST Keli Dickinson MD LAB BLOOD ORDERABLES Final Resul t [facility] [address] [place] [address], [place] [phone] * (ABNORMAL) Comprehensive metabolic panel (11/19/2024 7:20 AM EST) Sodium 132(L) 133 - 145 mmol/L LAB CHEMISTRY METHOD 11/19/2024 11:58 AM [facility] LAB Potassium 5.2 3.5 - 5.5 mmol/L LAB CHEMISTRY METHOD 11/19/2024 11:58 AM [facility] LAB Chloride 101 96 - 110 mmol/L LAB CHEMISTRY METHOD 11/19/2024 11:58 AM [facility] LAB CO2 26 21 - 32 mmol/L LAB CHEMISTRY METHOD 11/19/2024 11:58 AM [facility] LAB Anion Gap 5 3 - 11 LAB CHEMISTRY METHOD 11/19/2024 11:58 AM [facility] LAB Glucose 99 70 - 100 mg/dL LAB CHEMISTRY METHOD 11/19/2024 11:58 AM [facility] BUN 26(H) 5 - 25 mg/dL LAB CHEMISTRY METHOD 11/19/2024 11:58 AM [facility] Creatinine 0.85 0.50 - 1.10 mg/dL LAB CHEMISTRY METHOD 11/19/2024 11:58 AM [facility] LAB eGFR 66 >=60 mL/min/1. 73m2 LAB CHEMISTRY METHOD 11/19/2024 11:58 AM [facility] LAB Comment:Calculation based on the??Chronic Kidney Disease Epidemiology Collaboration (CKD-EPI) equation refit??without adjustment for race. BUN/Creatinine Ratio 30.6 LAB CHEMISTRY METHOD 11/19/2024 11:58 AM [facility] LAB Calcium 8.2(L) 8.5 - 10.5 mg/dL LAB CHEMISTRY METHOD 11/19/2024 11:58 AM [facility] AST (SGOT) 15 10 - 42 unit/L LAB CHEMISTRY METHOD 11/19/2024 11:58 AM [facility] ALT (SGPT) 13 10 - 60 unit/L LAB CHEMISTRY METHOD 11/19/2024 11:58 AM [facility] LAB Alkaline Phosphatase 105 42 - 121 unit/L LAB CHEMISTRY METHOD 11/19/2024 11:58 AM [facility] Total Protein 5.3(L) 6.0 - 8.0 g/dL LAB CHEMISTRY METHOD 11/19/2024 11:58 AM [facility] Albumin 2.2(L) 3.2 - 5.0 g/dL LAB CHEMISTRY METHOD 11/19/2024 11:58 AM [facility] Total Bilirubin 0.6 0.0 - 1.4 mg/dL LAB CHEMISTRY METHOD 11/19/2024 11:58 AM [facility] Blood Venous blood specimen / Unknown Venipuncture / Unknown 11/19/2024 7:20 AM EST 11/19/2024 11:06 AM EST us Keli Dickinson MD LAB BLOOD ORDERABLES Final Resul t [facility] [address] [place] [address], * (ABNORMAL) Complete blood count (11/19/2024 7:20 AM EST) WBC 6.9 4.8 - 10.8 K/mcL LAB HEMETOLOGY METHOD 11/19/2024 11:28 AM [facility] RBC 3.10(L) 3.80 - 4.80 M/mcL LAB HEMETOLOGY METHOD 11/19/2024 11:28 AM [facility] Hemoglobin 7.9(L) 11.5 - 16.0 g/dL LAB HEMETOLOGY METHOD 11/19/2024 11:28 AM [facility] LAB Hematocrit 26.0(L) 35.0 - 47.0 % LAB HEMETOLOGY METHOD 11/19/2024 11:28 AM [facility] LAB MCV 84.7 79.0 - 98.0 FL LAB HEMETOLOGY METHOD 11/19/2024 11:28 AM [facility] MCH 25.7(L) 27.0 - 32.0 pcg LAB HEMETOLOGY METHOD 11/19/2024 11:28 AM [facility] MCHC 30.4(L) 32.0 - 37.0 g/dL LAB HEMETOLOGY METHOD 11/19/2024 11:28 AM [facility] LAB RDW 19.5(H) 11.0 - 15.0 % LAB HEMETOLOGY METHOD 11/19/2024 11:28 AM [facility] LAB Platelets 415(H) 130 - 400 K/mcL LAB HEMETOLOGY METHOD 11/19/2024 11:28 AM [facility] MPV 10.3 7.0 - 11.0 FL LAB HEMETOLOGY METHOD 11/19/2024 11:28 AM [facility] NRBC 0.0 <1.0 % LAB HEMETOLOGY METHOD 11/19/2024 11:28 AM [facility] NRBC Absolute 0.00 <0.10 K/mcL LAB HEMETOLOGY METHOD 11/19/2024 11:28 AM EST [facility] Blood Venous blood specimen / Unknown Venipuncture / Unknown 11/19/2024 7:20 AM EST 11/19/2024 11:06 AM EST us Keli Dickinson MD LAB BLOOD ORDERABLES Final Resul t [facility] LAB [address] [place] [address], documented in this encounter Visit Diagnoses Diagnosis Type 2 diabetes mellitus without complications (CMS/HCC V24, CMS/HCC V28) Anemia, unspecified documented in this encounter Additional Health Concerns 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
[2025-04-05 06:43] LABS: C Peptide 0.85 ng/mL (0.80-3.85)
[2025-04-08 22:54] LABS: Glutamic acid decarboxylase Ab >250 IU/mL (<5)
[2025-04-12 00:18] LABS: Islet Cell Antibody Screen NEGATIVE (NEGATIVE)
== END 2025-04-04 13:47 | disposition home or self-care (01) ==
LOC: HO.LAB 13:46
PROVIDERS: PCP Internal Medicine; Visit Provider Physician Assistant Medical
DX: E11.65 Type 2 diabetes mellitus with hyperglycemia (principal); Z79.4 Long term (current) use of insulin
CPT/HCPCS: 36415; 82947; 84681; 86341; 99202

== ENCOUNTER 2025-04-04 13:46 | Outpatient (AMB) | payer MEDICARE, OTHER, SELFPAY ==
--- NOTE | 2025-04-04 13:57 | A.OFFVIS_ITS ---
Vital Signs 04/04/25 14:05 Height 5 ft 4 in Weight 172 lb 6.424 oz BMI 29.6 BP 128/58 L Blood Pressure Location Lt radial Position Sitting Pulse 55 Pulse Source Pulse Oximeter Pulse Oximetry (%) 95 Oxygen Delivery Method Room Air Intake Visit Reasons: High BS/ ED f/u Intake Note: New patient present today for Diabetes. Last Diabetic Eye exam: Due, 2 years ago Last Podiatry Visit: approx 6 months, Dr. Ilya Farley Random Glucose: 176 mg/dl HgA1C: 9.3% 03/15/2025 Is receiving supplies through [employer], granddaughter will call us back with information or if they prefer to use the [employer] our office uses. Soda Clerk Required: No Accompanied by: Grand Child Allergies adhesive tape [Adhesive Tape] Allergy (Unknown, Verified 04/04/25 14:06) SKIN REDNESS Medication List - Last Reconciled 04/04/25 by DAYNA Hanson acetaminophen (Tylenol) 650 mg PO Q4-6H PRN acetone (urine) test (Ketone Urine Test strips) As directed blood-glucose sensor ([employer] Anna 3 Sensor device) As directed blood-glucose,single ending machine operator,cont (FreeStyle Anna 3 [place]) As directed calcium carbonate 500 mg PO BID cyanocobalamin (vitamin B-12) 100 mcg PO DAILY dextrose (TRUEplus Glucose) 15 grams (32 mL) PO Q15M PRN furosemide (Lasix) 20 mg PO DAILY 7 days hydralazine 10 mg PO BEDTIME PRN insulin aspart U-100 (Novolog FlexPen U-100 Insulin aspart) See Protocol sliding scale doses subcut TIDWM insulin glargine (Lantus Solostar U-100 Insulin) 15 units subcut BEDTIME levothyroxine 112 mcg PO DAILY@0600 nystatin (Nyamyc) 1 appl See Protocol topical TID PRN omeprazole 20 mg PO DAILY@0630 pravastatin 80 mg PO BEDTIME zinc sulfate 220 mg PO DAILY HPI Comments Details: This is an 89-year-old female with a past medical history of CHF, type 2 diabetes, orthostatic hypotension, sinus bradycardia, left bundle branch block and DKA presenting for initial consult for diabetic management. She is here with her granddaughter, Amparo. She was diagnosed with diabetes 39 years ago. Patient says at 1 point she saw an food service clerk to said she had type 1 diabetes, but this was 5 years ago. Per her most recent ER visit 03/30/2025 she has recurrent admissions for DKA over the last 5 months after left femur surgery. Patient was positive for COVID-19 on 03/25/2025. No steroids. Patient more sedentary following femur fracture/fall. Using a walker and fo llowed by orthopedics. Reviewed [employer] Anna 3 download dated March 22 to 04/04/2025 CGM active 77% Average glucose 256 GMI 9.4% Glucose variability 37% Very high 51% and high 23% Target range 26% 0% hypoglycemia Hyperglycemia throughout 24 hours with improvement in glucose readings overnight and postprandial hyperglycemia during the day. Hemoglobin a1c 9.3% 03/15/2025. Current medication regimen: NovoLog per sliding scale, Lantus 15 units at bedtime. Novolog sliding scale 100-149 7 units 150-199 9 units 200-249 11 units 250-299 13 units 300-349 15 units 350 and over 17 units and call doctor Lantus and NovoLog have been adjusted recently by the diabetic nurse at her primary care provider's office and at the emergency department. Her sliding scale was increased 5 days ago and Lantus was reduced from 18-15 units by the diabetic nurse. Past medication: Metformin caused diarrhea. Compliance issues: None Diet: Breakfast-cottage cheese, eggs, fruits (oranges and berries), coffee with coffee mate low sugar Lunch-sandwiches, soup, drinks diet gingerale Dinner- protein, potato, vegetable or salad and diet soda or milk Snacks/desserts: cheese and crackers No alcohol or smoking Hypoglycemia symptoms: none Hyperglycemia symptoms: slurred speech Microvascular complications: neuropathy in feet (followed by podiatry), nephropathy Macrovascular complications: CAD. TIA Hyperlipidemia is treated with pravastatin 80 mg daily. ROS: Constitutional: No unexplained weight loss, fever, chills, fatigue or night sweats. Eyes: No blurry vision Respiratory: No shortness of breath Cardiovascular: No chest pain Gastrointestinal: No nausea, vomiting or abdominal pain Neurologic: No headache, dizziness, syncope, + intermittent tingling in her toes. Endocrine: No cold or heat intolerance. No polyuria or polydipsia. Physical exam: Constitutional: Alert, in no distress. Neck: Supple, Full range of motion. No lymphadenopathy. No palpable thyroid masses. Respiratory: Clear to auscultation. Cardiovascular: S1 S2 regular. No murmurs. Right foot: Warm and well perfused. No clubbing, cyanosis or edema. Intact DP pulse. Decreased vibratory sensation. Intact sensation to monofilament. No open wounds. Left foot: Warm and well perfused. No clubbing, cyanosis or edema. Intact DP pulse. Decreased vibratory sensation. Intact sensation to monofilament. No open wounds. [facility] Medical History (Updated 04/01/25 @ 00:02 by Priyanka Reyna) Left bundle branch block CAD (coronary artery disease) Patellofemoral arthritis of right knee Diabetes mellitus Surgical History Hx of mastectomy Hx of mastectomy Social History Household Members: None Household Members Other:: Home alone, went to [facility] a few weeks ago Housing: House Do you presently have visiting nurse or other home services: No Patient Tobacco Use Status: Never used Tobacco Advance Directives Date on File: 11/01/24 service: No Current occupational status: retired 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 Exam Vital Signs: Last Vital Signs Pulse 55 04/04/25 14:05 BP 128/58 L 04/04/25 14:05 Pulse Ox 95 04/04/25 14:05 Oxygen Delivery Method Room Air 04/04/25 14:05 BMI result Body Mass Index 29.6 Office Procedures Glucose Monitoring Details Details: see [facility] [id number] - Glucose monitoring, continuous-physician I&R Procedure code (CPT) selection complete Results Reviewed Results Reviewed: Laboratory Last Values Glucose (Clinic) 176 mg/dL (60-115) H 04/04/25 14:19 Laboratory Tests 02/04/25 02/09/25 03/15/25 15:00 09:00 05:33 Plt Count Creatinine Estimated GFR Hemoglobin A1c % 9.3 H AST B-Natriuretic Peptide Triglycerides 138 Cholesterol 123 LDL Cholesterol, Calc 61 HDL Cholesterol 35 L TSH 2.08 Urine Protein 03/23/25 03/24/25 03/25/25 07:29 07:03 12:23 Plt Count Creatinine 0.80 0.78 1.10 Estimated GFR > 60 > 60 47 Hemoglobin A1c % AST 25 B-Natriuretic Peptide Triglycerides Cholesterol LDL Cholesterol, Calc HDL Cholesterol TSH Urine Protein 03/25/25 03/29/25 03/29/25 12:36 17:45 23:30 Plt Count Creatinine 1.16 0.98 Estimated GFR 44 53 Hemoglobin A1c % AST 25 B-Natriuretic Peptide 406 H Triglycerides Cholesterol LDL Cholesterol, Calc HDL Cholesterol TSH Urine Protein Negative 03/30/25 04:25 Plt Count 284 Creatinine 0.74 Estimated GFR > 60 Hemoglobin A1c % AST B-Natriuretic Peptide Triglycerides Cholesterol LDL Cholesterol, Calc HDL Cholesterol TSH Urine Protein Assessment & Plan Assessment & Plan (1) Diabetes mellitus with hyperglycemia: Code(s): E11.65 - Type 2 diabetes mellitus with hyperglycemia Category: Medical Plan In summary this is an 89-year-old female with uncontrolled diabetes and recent admissions for diabetic ketoacidosis with micro and macrovascular complications. Given patient's age and comorbidities,a reasonable hemoglobin A1c target is 8- 8.5%. Discussed pathophysiology of Type II Diabetes Mellitus with the patient in detail.? I explained the penitentiary risks and complications associated with uncontrolled diabetes including nephropathy, neuropathy, peripheral vascular disease, retinopathy, increased risk of heart disease and stroke.? Referred to dietitian. Reviewed diabetic diet. Written instructions provided for treatment of hypoglycemia and glucose gel packets sent to the pharmacy. Prescribed ketone urine strips and written instructions provided. Check ALEX, islet cell antibody screening and C-peptide level. Continue Lantus 15 units at bedtime. Novolog sliding scale for breakfast and lunch: 100-149 9 units 150-199 11 units 200-249 13 units 250-299 15 units 300-349 17 units 350 and over 19 units and call doctor Novolog sliding scale for dinner: 100-149 7 units 150-199 9 units 200-249 11 units 250-299 13 units 300-349 15 units 350 and over 17 units and call doctor Follow up in 2 weeks for type 2 diabetes and to review test results. Orders: Orders Glutamic acid decarboxylase Ab Today DAYNA Hanson E11.65 - Type 2 diabetes mellitus with hyperglycemia Islet Cell Antibody Scrn/Titer Today DAYNA Hanson E11.65 - Type 2 diabetes mellitus with hyperglycemia C Peptide Today DAYNA Hanson E11.65 - Type 2 diabetes mellitus with hyperglycemia AMB Glucose Monitoring Today DAYNA Hanson E11.9 - Type 2 diabetes mellitus without complications Referrals Radiologist Chief Of Breast Imaging Nutrition Referral DAYNA Hanson E11.65 - Type 2 diabetes mellitus with hyperglycemia Medications: New acetone (urine) test (Ketone Urine Test strips) As directed 100 ea 0RF DAYNA Hanson dextrose (TRUEplus Glucose) until symptoms of low blood sugar are controlled 15 grams (32 mL) PO Q15M PRN 128 mL 3RF hypoglycemia (glucose under 70) DAYNA Hanson Changed From insulin glargine (Lantus Solostar U-100 Insulin) 18 units (0.18 mL) subcut BEDTIME 15 mL 0RF To insulin glargine (Lantus Solostar U-100 Insulin) 15 units subcut BEDTIME DAYNA Gill Patient Instructions: Continue Lantus 15 units at bedtime. Novolog sliding scale for breakfast and lunch: 100-149 9 units 150-199 11 units 200-249 13 units 250-299 15 units 300-349 17 units 350 and over 19 units and call doctor Novolog sliding scale for dinner: 100-149 7 units 150-199 9 units 200-249 11 units 250-299 13 units 300-349 15 units 350 and over 17 units and call doctor If you experience low blood sugar (, treat this by eating a chewable fruit candy like skittles or jelly beans (about 8 pieces), 4 ounces (1/2 cup) of fruit juice (not diet), 1 tablespoon of honey or 4 glucose tablets or 1 pack of glucose gel. If your blood sugar is under 55, take double the amount of one of the above. Recheck your blood sugar in 15 minutes and repeat this process as needed. Diabetic ketoacidosis (DKA) A serious condition that can lead to diabetic coma (passing out for a long time) or even When your cells don't get the glucose they need for energy, your body begins to burn fat for energy, which produces ketones. Ketones are chemicals that the body creates when it breaks down fat to use for energy. The body does this when it doesn?t have enough insulin to use glucose, the body?s normal source of energy. When ketones build up in the blood, they make it more acidic. They are a warning sign that your diabetes is out of control or that you are getting sick. Symptoms of Diabetic Ketoacidosis (DKA) DKA usually develops slowly. But when vomiting occurs, this life-threatening condition can develop in a few hours. Early symptoms include the following: ? Thirst or a very dry mouth ? Frequent urination ? High blood glucose (blood sugar) levels ? High levels of ketones in the urine Then, other symptoms appear: ? Constantly feeling tired ? Dry or flushed skin ? Nausea, vomiting, or abdominal pain ? (Vomiting can be caused by many illnesses, not just ketoacidosis. If vomiting continues for more than 2 hours, contact your health care provider.) ? Difficulty breathing ? Fruity odor on breath ? A hard time paying attention, or confusion When should you test for ketones? It is advisable to check for ketones under the following conditions when: Your blood glucose is higher than 250mg/dl. Feeling nauseated, throwing up, or have pains in your abdominal region. Have a cold or flu. Have general body fatigue. Feel thirsty or have a very dry mouth. Have flushed skin. Have a fruity breath or a hard time breathing. You feel confused or in fog. Negative, trace or light ketones: hydrate, bring sugars down with insulin You should go to the ER if you have moderate or large ketones. Coding Level of Care Code New Pt Level 5 (45312) Diagnoses Diabetes mellitus with hyperglycemia E11.65 CPT Codes Details - CPT: 19085 - Glucose monitoring, continuous-physician I&R ([id number]) Time Spent (min) 62 Comment Chart review, completing documentation, patient care
[2025-04-04 14:05] VITALS: BP 128/58; PULSE 55; O2SAT 95; BMI 29.6
[2025-04-04 14:24] LABS: Glucose, Whole Blood 176 mg/dL (60-115)
--- OUTSIDE RECORDS SUMMARY | 2025-04-04 15:01 | XMS_ITS | Encounter Summary ---
Author Organization [facility] Address [address] [place] [address] Care Team Providers Care Parquetry Floor Layer Name Role Phone Keli Dickinson MD Primary Care Provider [phone] Encounter Details Date Type Department Care Team (Late st Contact Info) Description 01/28/[address] [facility] - Main Lab [address] [place] [address] Keli Dickinson MD [address] [place] [address] Anemia, unspecified Social History Tobacco [...] LAB COAGULATION METHOD 01/28/2025 4:10 PM EDT [facility] ([facility]) [facility] Blood Venous blood specimen / Unknown Venipuncture / Unknown 01/28/2025 3:28 PM EDT 01/28/2025 3:54 PM EDT Narrative [facility] - 01/28/2025 4:10 PM EDT D-Dimer <230 ng/mL (D-Dimer units) is the threshold for exclusion of DVT/PE. D-Dimer may be elevated in: Critically ill, severely infected, trauma patients, DIC, acute CVA, acute AR, unstable angina, AF, old age, , and smoking. D-Dimer may be decreased with: Initiation of heparin therapy and oral anticoagulants. us Keli Dickinson MD LAB BLOOD ORDERABLES Final Resul t [facility] [address] [place] [address], * (ABNORMAL) Comprehensive metabolic panel (01/28/2025 3:28 PM EDT) Sodium 135 133 - 145 mmol/L LAB CHEMISTRY METHOD [facility] Potassium 4.2 3.5 - 5.5 mmol/L LAB CHEMISTRY METHOD 01/28/2025 4:30 PM [facility] Chloride 101 96 - 110 mmol/L LAB CHEMISTRY METHOD 01/28/2025 4:30 PM [facility] CO2 27 21 - 32 mmol/L LAB CHEMISTRY METHOD 01/28/2025 4:30 PM [facility] Anion Gap 7 3 - 11 LAB CHEMISTRY METHOD 01/28/2025 4:30 PM [facility] Glucose 338(H) 70 - 100 mg/dL LAB CHEMISTRY METHOD 01/28/2025 4:30 PM [facility] BUN 15 5 - 25 mg/dL LAB CHEMISTRY METHOD 01/28/2025 4:30 PM [facility] Creatinine 0.87 0.50 - 1.10 mg/dL [...] unit/L LAB CHEMISTRY METHOD 01/28/2025 4:30 PM [facility] LAB ALT (SGPT) 13 10 - 60 unit/L LAB CHEMISTRY METHOD 01/28/2025 4:30 PM [facility] Alkaline Phosphatase 95 42 - 121 unit/L LAB CHEMISTRY METHOD 01/28/2025 4:30 PM EDT [facility] Total Protein 5.7(L) 6.0 - 8.0 g/dL LAB CHEMISTRY METHOD 01/28/2025 4:30 PM [facility] Albumin 2.8(L) 3.2 - 5.0 g/dL LAB CHEMISTRY METHOD 01/28/2025 4:30 PM [facility] Total Bilirubin 0.4 0.0 - 1.4 mg/dL LAB CHEMISTRY METHOD 01/28/2025 4:30 PM [facility] Blood Venous blood specimen / Unknown Venipuncture / Unknown 01/28/2025 3:28 PM EDT 01/28/2025 3:54 PM EDT us Keli Dickinson MD LAB BLOOD ORDERABLES Final Resul t [facility] [address] [place] [address], * (ABNORMAL) Complete blood count (01/28/2025 3:28 PM EDT) [facility] WBC 7.9 4.8 - 10.8 K/mcL LAB HEMETOLOGY METHOD 01/28/2025 4:06 PM [facility] RBC 4.20 3.80 - 4.80 M/mcL LAB HEMETOLOGY METHOD 01/28/2025 4:06 PM [facility] Hemoglobin 10.5(L) 11.5 - 16.0 g/dL LAB HEMETOLOGY METHOD 01/28/2025 4:06 PM [facility] Hematocrit 33.2(L) 35.0 - 47.0 % LAB HEMETOLOGY METHOD 01/28/2025 4:06 PM [facility] MCV 79.6 79.0 - 98.0 FL LAB HEMETOLOGY METHOD 01/28/2025 4:06 PM [facility] MCH 25.2(L) 27.0 - 32.0 pcg LAB HEMETOLOGY METHOD 01/28/2025 4:06 PM [facility] MCHC 31.6(L) 32.0 - 37.0 g/dL LAB HEMETOLOGY METHOD 01/28/2025 4:06 PM [facility] RDW 15.2(H) 11.0 - 15.0 % LAB HEMETOLOGY METHOD 01/28/2025 4:06 PM [facility] Platelets 233 130 - 400 K/mcL LAB HEMETOLOGY METHOD 01/28/2025 4:06 PM [facility] MPV 11.1(H) 7.0 - 11.0 FL LAB HEMETOLOGY METHOD 01/28/2025 4:06 PM [facility] NRBC 0.0 <1.0 % [facility] [address] [place] [address], documented in this encounter Visit Diagnoses Diagnosis Anemia, unspecified documented in this encounter 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
--- OUTSIDE RECORDS SUMMARY | 2025-04-04 15:01 | XMS_ITS ---
Author Organization [facility] Address [address] [place] [address] Care Team Providers Care Teacher Of Family And Consumer Science Name Role Phone Kristin MAGALLANES, Janes Primary Care Provider Fernando Wall Unavailable [phone] Encounters Encounter Location Date Provider Diagnosis [facility] [address] [place] [address] 10/18/2024 Fernando Lim Plan Of Treatment No Information Progress Notes * Lisa HOLLIDAY ADOB:[birth year] (89 yo F)Acc No.[id number]:10/18/2024 Progress Note Patient:?Lisa HOLLIDAY Provider:?Fernando Lim DPM :1935???Age:88 Y???Sex:Female D ate:10/18/2024 [id number] Pcp:Janes Foster MD Subjective: * Chief Complaints: [...] Lim DPM Date:?2023 Generated for Printi ng/Faxing/eTransmitting on:?04/04/2025 03:00 PM EDT
--- OUTSIDE RECORDS SUMMARY | 2025-04-04 15:01 | XMS_ITS | Clinical Summary ---
Author Organization [facility] Address [address] [place] [address] Phone Care Team Providers Care Qual Field Manager Name Role Phone Keli Dickinson MD Primary Care Provider [phone] Encounters Date Type Department Care Team Description 02/23/[address] [facility] Lab [address] [place] [phone] Keli Dickinson MD Urgency of urination; Urinary tract infection, site not specified 02/07/[address] [facility] [address] [place] [address] Keli Dickinson MD Urinary tract infection, site not specified 02/06/2025 Lab Requisition [facility] Main Lab [address] [place] [address] Keli Dickinson MD Syncope and collapse 01/28/2025 Lab Requisition [facility] - Main Lab [address] [place] [address] Keli Dickinson MD Anemia, unspecified 01/26/[address] [facility] Lab [address] [place] [address] Keli Dickinson MD Urinary tract infection, site not specified 01/18/[address] [facility] [address] [place] [phone] Keli Dickinson MD Type 2 diabetes mellitus [...] EST Type 2 diabetes mellitus without complications ([facility]) Essential (primary) hypertension Hypo-osmolality and hyponatremia COMPLETE BLOOD COUNT Routine 01/18/2025 9:14 AM EST Type 2 diabetes mellitus without complications ([facility]) Essential (primary) hypertension Hypo-osmolality and hyponatremia HEMOGLOBIN A1C Routine 11/19/2024 7:20 AM EST Type 2 diabetes mellitus without complications ([facility]) Anemia, unspecified from Last 3 Months or Most Recently Relevant to Health Maintenance Results * (ABNORMAL) Urinalysis with reflex microscopic and culture (02/21/2025 10:30 PM EDT) Specific [place] Urine 1.029 1.003 - 1.030 LAB URINALYSIS - AUTOMATED METHOD 02/23/2025 11:46 AM [facility] pH, Urine >=9.0(A) 5.0 - 8.0 pH LAB URINALYSIS - AUTOMATED METHOD 02/23/2025 11:46 AM [facility] Leukocytes, Urine Large(A) Negative LAB URINALYSIS - AUTOMATED METHOD 02/23/2025 11:46 AM [facility] Nitrite, Urine Positive(A) Negative LAB URINALYSIS - AUTOMATED METHOD 02/23/2025 11:46 AM [facility] Protein, Urine >=1000(A) <=Trace mg/dL LAB URINALYSIS - AUTOMATED METHOD 02/23/2025 11:46 AM [facility] Glucose, Urine 250(A) Negative mg/dL LAB URINALYSIS - AUTOMATED METHOD 02/23/2025 11:46 AM [facility] Ketones, Urine Negative Negative mg/dL LAB URINALYSIS - AUTOMATED METHOD 02/23/2025 11:46 AM [facility] Urobilinogen , Urine 1.0 0.2 - 1.0 mg/dL LAB URINALYSIS - AUTOMATED METHOD 02/23/2025 11:46 AM [facility] Bilirubin, Urine Negative Negative LAB URINALYSIS - AUTOMATED METHOD 02/23/2025 11:46 AM [facility] Blood, Urine Negative Negative LAB URINALYSIS - AUTOMATED METHOD 02/23/2025 11:46 AM [facility] RBC, Urine 4.0 0 - 4 /HPF LAB URINALYSIS - AUTOMATED METHOD 02/23/2025 11:46 AM [facility] WBC, Urine 13.8(H) 0 - 4 /HPF LAB URINALYSIS - AUTOMATED METHOD 02/23/2025 11:46 AM [facility] Squamous Epithelial, Urine >100(H) 0 - 60 /LPF LAB URINALYSIS - AUTOMATED METHOD 02/23/2025 11:46 AM [facility] Crystals, Urine HEAVY TRIPLE PHOS /LPF LAB URINALYSIS - AUTOMATED METHOD 02/23/2025 11:46 AM [facility] Bacteria, Urine Many(A) Negative /HPF LAB URINALYSIS - AUTOMATED METHOD 02/23/2025 11:46 AM [facility] Hyaline Casts, Urine 15.0(H) 0 - 3 /LPF LAB URINALYSIS - AUTOMATED METHOD 02/23/2025 11:46 AM [facility] Urine Urine specimen from urethra / Unknown Non-blood Collection / Unknown 02/21/2025 10:30 PM EDT 02/23/2025 11:14 AM EDT us Keli Dickinson MD LAB URINE ORDERABLES Final Resul t [facility] [address] [place] [address], * Hawkins urine culture tube (02/21/2025 10:30 [...] Resul t [facility] [address] [place] [address], * (ABNORMAL) Culture urine (02/21/2025 10:30 PM [...] Final Result [facility] [address] [place] [address], * (ABNORMAL) Urinalysis with reflex microscopic (02/07/2025 12:00 AM EDT) Only the most recent of2 resultswithin the time period is included. Specific [place] Urine 1.017 1.003 - 1.030 LAB URINALYSIS [...] URINALYSIS - AUTOMATED METHOD 02/07/2025 1:34 PM [facility] Ketones, Urine Trace(A) Negative mg/dL LAB URINALYSIS - AUTOMATED METHOD 02/07/2025 1:34 PM [facility] Urobilinogen , Urine 0.2 0.2 - 1.0 mg/dL LAB URINALYSIS - AUTOMATED METHOD 02/07/2025 1:34 PM [facility] Bilirubin, Urine Negative Negative LAB URINALYSIS - AUTOMATED METHOD 02/07/2025 1:34 PM [facility] Blood, Urine Trace(A) Negative LAB URINALYSIS - AUTOMATED METHOD 02/07/2025 1:34 PM [facility] RBC, Urine 13.5(H) 0 - 4 /HPF LAB URINALYSIS - AUTOMATED METHOD 02/07/2025 1:34 PM [facility] WBC, Urine 846.5(H) 0 - 4 /HPF LAB URINALYSIS - AUTOMATED METHOD 02/07/2025 1:34 PM [facility] Squamous Epithelial, Urine >100(H) 0 - 60 /LPF LAB URINALYSIS - AUTOMATED METHOD 02/07/2025 1:34 PM [facility] Bacteria, Urine Negative Negative /HPF LAB URINALYSIS - AUTOMATED METHOD 02/07/2025 1:34 PM [facility] Hyaline Casts, Urine 12.0(H) 0 - 3 /LPF LAB URINALYSIS - AUTOMATED METHOD 02/07/2025 1:34 PM [facility] Yeast, Urine Present(A) None /HPF LAB URINALYSIS - AUTOMATED METHOD 02/07/2025 1:34 PM [facility] Urine Urine specimen obtained by clean catch procedure / Unknown 02/07/2025 02/07/2025 11:37 AM EDT us Keli Dickinson MD LAB URINE ORDERABLES Final Resul t [facility] [address] [place] [address], * (ABNORMAL) Complete blood count (02/06/2025 7:07 AM EDT) Only the most recent of3 resultswithin the time period is included. WBC 8.2 4.8 - 10.8 K/mcL LAB HEMETOLOGY METHOD 02/06/2025 11:56 AM EDT [facility] RBC 4.10 3.80 - 4.80 M/mcL LAB HEMETOLOGY METHOD 02/06/2025 11:56 AM [facility] Hemoglobin 10.4(L) 11.5 - 16.0 g/dL LAB HEMETOLOGY METHOD 02/06/2025 11:56 AM [facility] Hematocrit 34.0(L) 35.0 - 47.0 % LAB HEMETOLOGY METHOD 02/06/2025 11:56 AM [facility] MCV 82.9 79.0 - 98.0 FL LAB HEMETOLOGY METHOD 02/06/2025 11:56 AM [facility] MCH 25.4(L) 27.0 - 32.0 pcg LAB HEMETOLOGY METHOD 02/06/2025 11:56 AM [facility] MCHC 30.6(L) 32.0 - 37.0 g/dL LAB HEMETOLOGY METHOD 02/06/2025 11:56 AM [facility] RDW 15.9(H) 11.0 - 15.0 % LAB HEMETOLOGY METHOD 02/06/2025 11:56 AM [facility] Platelets 228 130 - 400 K/mcL [...] Resul t [facility] [address] [place] [address], * (ABNORMAL) Basic metabolic panel (02/06/2025 7:07 AM EDT) Only the most recent of2 resultswithin the time period is included. Sodium 135 133 - 145 mmol/L LAB CHEMISTRY METHOD 02/06/2025 12:38 PM [facility] Potassium 4.4 3.5 - 5.5 mmol/L LAB CHEMISTRY METHOD 02/06/2025 12:38 PM [facility] Chloride 103 96 - 110 mmol/L LAB CHEMISTRY METHOD 02/06/2025 12:38 PM [facility] CO2 26 21 - 32 mmol/L LAB CHEMISTRY METHOD 02/06/2025 12:38 PM [facility] Anion Gap 6 3 - 11 LAB CHEMISTRY METHOD 02/06/2025 12:38 PM [facility] Glucose 58(L) 70 - 100 mg/dL [...] Resul t [facility] [address] [place] [address], * (ABNORMAL) D-Dimer (01/28/2025 3:28 PM EDT) [...] infected, trauma patients, DIC, acute CVA, acute CA, unstable angina, AF, old age, , and smoking. D-Dimer may be decreased with: Initiation of heparin therapy and oral anticoagulants. Keli Dickinson MD LAB BLOOD ORDERABLES Final Resul t [facility] [address] [place] [address], * (ABNORMAL) Comprehensive metabolic panel (01/28/2025 3:28 PM EDT) Sodium 135 133 - 145 mmol/L LAB [facility]STR[facility] Potassium 4.2 3.5 - 5.5 mmol/L LAB CHEMISTRY METHOD 01/28/2025 4:30 PM [facility] Chloride 101 96 - 110 mmol/L LAB CHEMISTRY METHOD 01/28/2025 4:30 PM [facility] CO2 27 21 - 32 mmol/L LAB CHEMISTRY METHOD 01/28/2025 4:30 PM [facility] Anion Gap 7 3 - 11 LAB CHEMISTRY METHOD 01/28/2025 4:30 PM [facility] Glucose 338(H) 70 - 100 mg/dL LAB CHEMISTRY METHOD 01/28/2025 4:30 PM [facility] BUN 15 5 - 25 mg/dL LAB CHEMISTRY METHOD 01/28/2025 4:30 PM [facility] Creatinine 0.87 0.50 - 1.10 mg/dL LAB CHEMISTRY METHOD 01/28/2025 4:30 PM [facility] eGFR 64 >=60 mL/min/1. 73m2 LAB CHEMISTRY METHOD 01/28/2025 4:30 PM [facility] Comment:Calculation based on [...] unit/L LAB CHEMISTRY METHOD 01/28/2025 4:30 PM [facility] Alkaline Phosphatase 95 42 [...] Resul t [facility] [address] [place] [address], * (ABNORMAL) Hemoglobin A1c (11/19/2024 7:20 AM EST) Hemoglobin A1C 6.8(H) <6.5 % LAB CHEMISTRY METHOD 11/21/2024 10:21 AM EST [facility] Mean Bld Glu Estim. 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
--- OUTSIDE RECORDS SUMMARY | 2025-04-04 15:01 | XMS_ITS | Encounter Summary ---
Author Organization [facility] Address [address] [place] [address] Care Team Providers Care Tape Weaver Name Role Phone Keli Dickinson MD Primary Care Provider [phone] Encounter Details Date Type Department Care Team (Latest Contact Info) Description 01/18/2025 Lab Requisition [facility] - Main Lab [address] [place] [address] Keli Dickinson MD [address] [place] [address] Type 2 diabetes mellitus without [...] EST Type 2 diabetes mellitus without complications ([facility]/HCC) Essential (primary) hypertension Hypo-osmolality and hyponatremia BASIC METABOLIC PANEL Routine 01/18/2025 9:14 AM EST Type 2 diabetes mellitus without complications (CMS/HCC) Essential (primary) hypertension Hypo-osmolality and hyponatremia documented in this encounter Results * (ABNORMAL) Basic metabolic panel (01/18/2025 9:14 AM EST) Sodium 137 133 - 145 mmol/L LAB CHEMISTRY METHOD 01/18/2025 2:47 PM EST [facility] Potassium 3.7 3.5 - 5.5 mmol/L LAB CHEMISTRY METHOD 01/18/2025 2:[address] [facility] Chloride 105 96 - 110 mmol/L LAB CHEMISTRY METHOD 01/18/2025 2:[address] [facility] CO2 22 21 - 32 mmol/L LAB CHEMISTRY METHOD 01/18/2025 2:[address] [facility] Anion Gap 10 3 - 11 LAB CHEMISTRY METHOD 01/18/2025 2:[address] [facility] Glucose 257(H) 70 - 100 mg/dL LAB CHEMISTRY METHOD 01/18/2025 2:[address] [facility] BUN 24 5 - 25 mg/dL LAB CHEMISTRY METHOD 01/18/2025 2:[address] [facility] Creatinine 0.99 0.50 - 1.10 mg/dL LAB CHEMISTRY METHOD 01/18/2025 2:[address] [facility] eGFR 55(L) >=60 mL/min/1. 73m2 LAB CHEMISTRY METHOD 01/18/2025 2:[address] [facility] Comment:Calculation based on the??Chronic Kidney Disease Epidemiology Collaboration (CKD-EPI) equation refit??without adjustment for race. BUN/Creatinine Ratio 24.2 LAB CHEMISTRY METHOD 01/18/2025 2:[address] [facility] Calcium 8.6 8.5 - 10.5 mg/dL LAB CHEMISTRY METHOD 01/18/2025 2:[address] [facility] Blood Venous blood specimen / Unknown Venipuncture / Unknown 01/18/2025 9:14 AM EST 01/18/2025 10:13 AM EST us Keli Dickinson MD LAB BLOOD ORDERABLES Final Resul t [facility] [address] [place] [address], * (ABNORMAL) Complete blood count (01/18/2025 9:14 AM EST) [facility] WBC 7.5 4.8 - 10.8 K/mcL LAB HEMETOLOGY METHOD 01/18/2025 11:[address] [facility] RBC 3.90 3.80 - 4.80 M/mcL LAB HEMETOLOGY METHOD 01/18/2025 11:[address] [facility] Hemoglobin 9.7(L) 11.5 - 16.0 g/dL LAB HEMETOLOGY METHOD 01/18/2025 11:[address] [facility] Hematocrit 31.3(L) 35.0 - 47.0 % LAB HEMETOLOGY METHOD 01/18/2025 11:[address] [facility] MCV 80.3 79.0 - 98.0 FL LAB HEMETOLOGY METHOD 01/18/2025 11:[address] [facility] MCH 24.9(L) 27.0 - 32.0 pcg LAB HEMETOLOGY METHOD 01/18/2025 11:[address] [facility] MCHC 31.0(L) 32.0 - 37.0 g/dL LAB HEMETOLOGY METHOD 01/18/2025 11:[address] [facility] RDW 15.1(H) 11.0 - 15.0 % LAB HEMETOLOGY METHOD 01/18/2025 11:[address] [facility] Platelets 229 130 - 400 K/mcL LAB HEMETOLOGY METHOD 01/18/2025 11:[address] [facility] MPV 11.6(H) 7.0 - 11.0 FL LAB HEMETOLOGY METHOD 01/18/2025 11:[address] [facility] NRBC 0.0 <1.0 % LAB HEMETOLOGY METHOD 01/18/2025 11:[address] [facility] NRBC Absolute 0.00 <0.10 K/mcL LAB HEMETOLOGY METHOD 01/18/2025 11:33 AM EST [facility] Blood Venous blood specimen / Unknown Venipuncture / Unknown 01/18/2025 9:14 AM EST 01/18/2025 10:13 AM EST us Keli Dickinson MD LAB BLOOD ORDERABLES Final Resul t [facility] [address] [place] [address], documented in this encounter Visit Diagnoses Diagnosis Type 2 diabetes mellitus without complications (CMS/HCC V24, CMS/HCC V28) Essential (primary) hypertension Unspecified essential hypertension Hypo-osmolality and hyponatremia documented in this encounter 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
--- OUTSIDE RECORDS SUMMARY | 2025-04-04 15:01 | XMS_ITS | Patient Health Record ---
Author Organization [facility] Address [address] [place] [address] Care Team Providers Care Stitcher Tape Controlled Machine Name Role Phone Janes Foster MD Primary Care Provider Fernando Wall Unavailable [phone] Allergies Allergen (clinical drug ingredient) Drug/Non Drug [...] Problem Acquired hammer toe of right foot (2377273736890123 ) Other hammer toe(s) (acquired), right foot (M20.41) Active confirmed Response to treatment, Improvemen t Problem Acquired hammer toe of left foot (6939264322477977 ) Other hammer toe(s) (acquired), left foot (M20.42) Active confirmed Response to treatment, Improvemen t Problem Polyneuropathy due to diabetes mellitus type I (551829675) 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 Vital Signs Blood pressure diastolic 68 mm Hg 07/15/2024 Height 5 ft 6 in in 07/15/2024 Blood pressure systolic 128 mm Hg 07/15/2024 Weight 175 lbs 07/15/2024 BMI 28.24 kg/m2 07/15/2024 Procedures Procedure Date Ordered Date Performed Result Body Sit e 23875-QOUMVRD NAIL, 6 OR MORE 05/03/2024 N/A 93216-Tltijroh Plate 05/03/2024 N/A 72008-YWEA SKIN LESIONS, OVER 4 05/03/2024 N/A 69411-BXNETEM NAIL, 6 OR MORE 07/15/2024 N/A 54101-Kgpakqnp Plate 07/15/2024 N/A 42010-TNST SKIN LESIONS, OVER 4 07/15/2024 N/A Encounters Encounter Location Date Provider Diagnosis [facility] [address] [address] 05/03/2024 Fernando Lim Type 1 diabetes mellitus with diabetic polyneuropathy E10.42 ; Tinea unguium B35.1 and Ingrown nail L60.0 [facility] [address] [address] 07/15/2024 Fernando Lim Type 1 diabetes mellitus with diabetic polyneuropathy E10.42 ; Tinea unguium B35.1 and Ingrown nail L60.0 [facility] [place] [address] [place] [address] 10/17/2024 Fernando Lim Assessments Encounter Date Diagnosis [...] Test Name Order Date Hemoglobin A1c 11/30/2015 93975-AOWVZNC NAIL, 6 OR MORE 10/27/2014 10379-GEMARUC NAIL, 6 OR MORE 01/04/2013 22046-EDIUSNJ NAIL, 6 OR MORE 11/30/2015 83609-RREATEJ NAIL, 6 OR MORE 11/29/2021 59949-WHYOQMI NAIL, 6 OR MORE 09/29/2023 32762-PXHXNVI NAIL, 6 OR MORE 02/19/2024 08281-SCRYMUC NAIL, 6 OR MORE 05/03/2024 56012-ZXTATKA NAIL, 6 OR MORE 07/15/2024 99040-DDLHFEF NAIL, 6 OR MORE 10/30/2020 65562-DBLGKAG NAIL, 6 OR MORE 04/08/2019 12073-WQLUKEI NAIL, 6 OR MORE 02/01/2016 40055-EIYHDWE NAIL, 6 OR MORE 10/25/2019 20006-HZQNFCL NAIL, 6 OR MORE 01/03/2020 73876-OKBHRGP NAIL, 6 OR MORE 05/01/2020 50359-DNOPRYV NAIL, 6 OR MORE 08/17/2020 83281-JPEQUCX NAIL, 6 OR MORE 01/01/2021 84107-LGMSLAK NAIL, 6 OR MORE 06/14/2021 17927-HVXCURW NAIL, 6 OR MORE 02/11/2022 58109-DUQKLPW NAIL, 6 OR MORE 06/10/2022 24291-USFHWMU NAIL, 6 OR MORE 08/22/2022 33508-IRGEZTY NAIL, 6 OR MORE 10/31/2022 54038-VSGYNCT NAIL, 6 OR MORE 01/09/2023 25371-DRYIJDF NAIL, 6 OR MORE 03/24/2023 14711-MSNFWNJ NAIL, 6 OR MORE 06/05/2023 94359-LMSFMJV NAIL, 6 OR MORE 06/18/2012 90570-HANCGRP NAIL, 6 OR MORE 08/27/2012 51133-ODCLHNM NAIL, 6 OR MORE 03/25/2013 50018-KBRGDIO NAIL, 6 OR MORE 06/17/2013 51076-CGWCPLI NAIL, 6 OR MORE 08/26/2013 87651-WJMDFIY NAIL, 6 OR MORE 12/02/2013 93186-SNQBMXO NAIL, 6 OR MORE 02/10/2014 12387-GZYBWPE NAIL, 6 OR MORE 06/06/2014 52380-OYHMPBE NAIL, 6 OR MORE 08/25/2014 63277-DEWUZBD NAIL, 6 OR MORE 01/12/2015 99515-UCGJYQC NAIL, 6 OR MORE 03/16/2015 09119-PDDFIBH NAIL, 6 OR MORE 05/25/2015 60733-NICPYEL NAIL, 6 OR MORE 08/21/2015 79352-MVAMDQR NAIL, 6 OR MORE 04/08/2016 36506-UYMDVWP NAIL, 6 OR MORE 07/08/2016 84268-GNCJDIB NAIL, 6 OR MORE 09/16/2016 67497-QZEBRGV NAIL, 6 OR MORE 12/19/2016 86360-HTPZMHO NAIL, 6 OR MORE 04/03/2017 12927-FQSHTKL NAIL, 6 OR MORE 06/05/2017 38340-YKPLSCI NAIL, 6 OR MORE 08/14/2017 69124-KBTYNVB NAIL, 6 OR MORE 10/23/2017 56313-NXZCVDM NAIL, 6 OR MORE 01/01/2018 72412-TKNGRBD NAIL, 6 OR MORE 05/11/2018 68589-QNNZBWO NAIL, 6 OR MORE 07/27/2018 67966-LNJSMYJ NAIL, 6 OR MORE 10/12/2018 69078-CBRORXG NAIL, 6 OR MORE 01/14/2019 95441-MULYWBN NAIL, 6 OR MORE 08/16/2019 21229-VXGJZRG NAIL, 6 OR MORE 09/13/2021 30893-WPKLMFQ NAIL, 6 OR MORE 03/29/2021 16435-Mvgzqqqj Plate 03/29/2021 67351-Hregfbgy Plate 09/13/2021 56702-Dcpyogft Plate 08/21/2015 86579-Pitmqicx Plate 05/25/2015 56137-Ihvcfzfa Plate 03/16/2015 07730-Ctyklwqe Plate 01/12/2015 11924-Nejfirom Plate 12/02/2013 86681-Qvdxqxia Plate 06/06/2014 31275-Cddrswwt Plate 02/10/2014 04520-Stawfqgj Plate 06/05/2023 72702-Bppikdta Plate 03/24/2023 12185-Kujyuixn Plate 08/22/2022 12417-Cvapocyi Plate 06/10/2022 30338-Ieknppty Plate 02/11/2022 41024-Mucjvofq Plate 06/14/2021 92639-Mwwptdpd Plate 05/01/2020 48019-Zrvgdlbn Plate 09/29/2023 95753-Yjvskxdc Plate 10/30/2020 50194-Vvuwoqte Plate 07/15/2024 18714-Fywxstih Plate 05/03/2024 79119-Ixzugqwv Plate 02/19/2024 61044-Pwclsydd Plate 11/29/2021 16106-Gbpgmclu Plate 01/04/2013 89422-Yastknxr Plate 11/30/2015 85049-Wkqaboux Plate Each Additional 52610-Uubwqxpp Plate Each Additional 12436-Qlidinwy Plate Each Additional 98502-Sbhsuaxi Plate Each Additional 22738-Jesxzslc Plate Each Additional 59591-Xbvnfmir Plate Each Additional 09572-Ygdlqvtn Plate Each Additional 02607-Uombrujo Plate Each Additional 18570-Nkcvofrz Plate Each Additional 95679-Ttxbkkhc Plate Each Additional 11/2014 55402-Tyynshgc Plate Each Additional 08/2015 44655-Jeoawopb Plate Each Additional 95035 I&D ABSCESS- SIMPLE,SINGLE 015 54677-GCPX SKIN LESIONS, OVER 4 06/10/20 70925-PZXI SKIN LESIONS, OVER 4 08/22/20 87669-TJUV SKIN LESIONS, OVER 4 10/31/20 71504-AZLJ SKIN LESIONS, OVER 4 06/05/20 23 90074-OKLY SKIN LESIONS, OVER 4 03/24/20 23 10311-EXCA SKIN LESIONS, OVER 4 01/09/20 11318-TTQN SKIN LESIONS, OVER 4 02/12/20 18343-QUCZ SKIN LESIONS, OVER 4 02/19/20 15670-RAAQ SKIN LESIONS, OVER 4 09/29/20 10600-RDMW SKIN LESIONS, OVER 4 05/03/20 53255-QTKI SKIN LESIONS, OVER 4 07/15/20 62210-HPTD SKIN LESIONS, 2 TO 4 10/30/20 36713-WZID SKIN LESIONS, 2 TO 4 02/01/20 16 72912-CDDW SKIN LESIONS, 2 TO 4 04/08/20 19 65151-MLUZ SKIN LESIONS, 2 TO 4 11/29/19 44376-KRDV SKIN LESIONS, 2 TO 4 12/23/19 12 63389-UOHX SKIN LESIONS, 2 TO 4 10/03/20 11 12719-NCCA SKIN LESIONS, 2 TO 4 01/04/20 13 27149-FNAJ SKIN LESIONS, 2 TO 4 11/30/19 16 42430-YDBD SKIN LESIONS, 2 TO 4 10/27/20 14 84841-SEXB SKIN LESIONS, 2 TO 4 06/14/20 21 57630-PDHK SKIN LESIONS, 2 TO 4 01/01/20 43458-DHPE SKIN LESIONS, 2 TO 4 05/01/20 01977-ZZYC SKIN LESIONS, 2 TO 4 08/17/20 25392-ZHPD SKIN LESIONS, 2 TO 4 01/03/20 60310-BXBC SKIN LESIONS, 2 TO 4 10/25/20 19152-BLJW SKIN LESIONS, 2 TO 4 06/18/20 12 87304-BIOD SKIN LESIONS, 2 TO 4 08/21/20 15 52023-JENU SKIN LESIONS, 2 TO 4 04/08/20 16 92039-TZRO SKIN LESIONS, 2 TO 4 05/25/20 15 57829-XWJK SKIN LESIONS, 2 TO 4 06/05/20 17 43341-MNLP SKIN LESIONS, 2 TO 4 12/19/19 17 81630-OGRJ SKIN LESIONS, 2 TO 4 04/03/20 17 88181-TDDR SKIN LESIONS, 2 TO 4 09/16/20 16 54372-NLAK SKIN LESIONS, 2 TO 4 07/08/20 16 35474-CSCS SKIN LESIONS, 2 TO 4 08/16/20 19 35758-QRVS SKIN LESIONS, 2 TO 4 01/15/20 19 75765-XEYC SKIN LESIONS, 2 TO 4 10/12/20 18 24791-QZUP SKIN LESIONS, 2 TO 4 07/27/20 18 93110-FOHG SKIN LESIONS, 2 TO 4 05/11/20 18 92165-FCFE SKIN LESIONS, 2 TO 4 01/01/20 18 39699-KRXL SKIN LESIONS, 2 TO 4 10/23/20 17 77422-UMRO SKIN LESIONS, 2 TO 4 08/14/20 17 52861-JPTR SKIN LESIONS, 2 TO 4 03/16/20 15 17977-WVGN SKIN LESIONS, 2 TO 4 01/12/20 15 74225-WRYA SKIN LESIONS, 2 TO 4 08/25/20 14 41700-NPRL SKIN LESIONS, 2 TO 4 06/06/20 14 09217-YEIQ SKIN LESIONS, 2 TO 4 02/11/20 14 77176-GENK SKIN LESIONS, 2 TO 4 12/02/19 14 09539-GNII SKIN LESIONS, 2 TO 4 08/26/20 13 52473-MRGA SKIN LESIONS, 2 TO 4 06/17/20 13 45389-ASZP SKIN LESIONS, 2 TO 4 03/25/20 13 74444-MEZU SKIN LESIONS, 2 TO 4 08/27/20 12 47388-OXQX SKIN LESIONS, 2 TO 4 03/19/20 12 46489-LXKP SKIN LESIONS, 2 TO 4 03/29/20 21 82534-LQGQ SKIN LESIONS, 2 TO 4 09/13/20 21 58721-KFSS SKIN LESIONS, 2 TO 4 07/25/20 11 O8241-YPTTOSUO DYSTROPHIC NAILS ANY # F3292-SHZFADPY DYSTROPHIC NAILS ANY # N8051-OJQREYYJ DYSTROPHIC NAILS ANY # P0702-ZZUQASDM DYSTROPHIC NAILS ANY # Insurance Providers Payer Name Payer Address Payer Phone Subscriber Number Group Number Insured Name Patient Relationship to Insured Coverage Start Date Coverage End Date Medicare National [employer] [address] [place] [address] [id number] Lisa Holliday Self - patient is the insured [facility] [address] [facility] [place], [place] [address] [id number] Lisa Holliday Self - patient is the [...] replacement Surgery 03/31 Hospitalization History Reason Date(Month/Year) [facility] - BP was Low / Heart blockage few hrs 11/2022 Vertigo 07/2012 Vertigo. 10/2011
--- OUTSIDE RECORDS SUMMARY | 2025-04-04 15:01 | XMS_ITS | Encounter Summary ---
Author Organization [facility] Address [address] [place] [address] Care Team Providers Care Court Stenographer Name Role Phone Keli Dickinson MD Primary Care Provider [phone] Encounter Details Date Type Department Care Team (Late st Contact Info) Description 01/26/2025 Lab Requisition [facility] [address] [place] [address] Keli Dickinson MD [address] [place] [address] Urinary tract infection, site not [...] reflex microscopic (01/25/2025 11:15 PM EDT) Specific [place] Urine 1.037(H) 1.003 - 1.030 LAB URINALYSIS - AUTOMATED METHOD 01/26/2025 11:03 AM EDT [facility] pH, Urine 5.5 5.0 - 8.0 pH LAB URINALYSIS - AUTOMATED METHOD 01/26/2025 11:03 AM [facility] Leukocytes, Urine Moderate(A) Negative LAB URINALYSIS - AUTOMATED METHOD 01/26/2025 11:03 AM [facility] Nitrite, Urine Negative Negative LAB URINALYSIS - AUTOMATED METHOD 01/26/2025 11:03 AM [facility] Protein, Urine 30(A) <=Trace mg/dL LAB URINALYSIS - AUTOMATED METHOD 01/26/2025 11:03 AM [facility] Glucose, Urine >=1000(A) Negative mg/dL LAB URINALYSIS - AUTOMATED METHOD 01/26/2025 11:03 AM [facility] Ketones, Urine Trace(A) Negative mg/dL LAB URINALYSIS - AUTOMATED METHOD 01/26/2025 11:03 AM [facility] Urobilinogen , Urine 0.2 0.2 - 1.0 mg/dL LAB URINALYSIS - AUTOMATED METHOD 01/26/2025 11:03 AM [facility] Bilirubin, Urine Negative Negative LAB URINALYSIS - AUTOMATED METHOD 01/26/2025 11:03 AM [facility] Blood, Urine Moderate(A) Negative LAB URINALYSIS - AUTOMATED METHOD 01/26/2025 11:03 AM [facility] RBC, Urine 10.0(H) 0 - 4 /HPF LAB URINALYSIS - AUTOMATED METHOD 01/26/2025 11:03 AM [facility] WBC, Urine 1,135.8(H) 0 - 4 /HPF LAB URINALYSIS - AUTOMATED METHOD 01/26/2025 11:03 AM [facility] Squamous Epithelial, Urine >100(H) 0 - 60 /LPF LAB URINALYSIS - AUTOMATED METHOD 01/26/2025 11:03 AM [facility] Bacteria, Urine Few(A) Negative /HPF LAB URINALYSIS - AUTOMATED METHOD 01/26/2025 11:03 AM EDT [facility] Hyaline Casts, Urine 3.0 0 - 3 /LPF LAB URINALYSIS - AUTOMATED METHOD 01/26/2025 11:03 AM EDT [facility] Yeast, Urine Present(A) None /HPF LAB URINALYSIS - AUTOMATED METHOD 01/26/2025 11:03 AM EDT [facility] Urine Urinary bladder structure / Unknown Non-blood Collection / Unknown 01/25/2025 11:15 PM EDT 01/26/2025 9:48 AM EDT us Keli Dickinson MD LAB URINE ORDERABLES Final Resul t [facility] [address] [place] [address], * (ABNORMAL) Culture urine (01/25/2025 11:15 PM EDT) Culture, Urine 10,000-49,000 CFU/mL Klebsiella pneumoniae(A) EMMY 02/01/2025 7:42 AM EDT [facility] Comment: This is an edited result. Previous organism was Gram negative bacilli on 01/30/2025 at 1329 EDT. Culture, Urine 10,000-49,000 CFU/mL Vancomycin resistant Enterococcus faecium(A) EMMY 02/01/2025 7:42 AM EDT [facility] Comment: The organism value for this result has been updated. These results have been appended to the previously preliminary verified report. Edited result: Previously reported as Enterococcus species on 01/28/2025 at 1125 EDT. 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
--- OUTSIDE RECORDS SUMMARY | 2025-04-04 15:01 | XMS_ITS | Encounter Summary ---
Author Organization [facility] Address [address] [place] [address] Care Team Providers Care Computer Trainer Name Role Phone Keli Dickinson MD Primary Care Provider [phone] Encounter Details Date Type Department Care Team (Late st Contact Info) Description 02/07/2025 Lab Requisition [facility] [address] [place] [address] Keli Dickinson MD [address] [place] [address] Urinary tract infection, site not [...] Hold for add-ons. 02/07/2025 1:01 PM EDT [facility] Comment:Auto resulted. Urine Urine specimen obtained by clean catch procedure / Unknown 02/07/2025 02/07/2025 11:38 AM EDT us Keli Dickinson MD LAB URINE ORDERABLES Final Resul t [facility] [address] [place] [address], [place] [phone] * (ABNORMAL) Urinalysis with reflex microscopic (02/07/2025 12:00 AM EDT) Specific [place] Urine 1.017 1.003 - 1.030 LAB URINALYSIS - AUTOMATED METHOD 02/07/2025 1:34 PM EDT [facility] pH, Urine 6.0 5.0 - 8.0 pH LAB URINALYSIS - AUTOMATED METHOD 02/07/2025 1:34 PM [facility] Leukocytes, Urine Large(A) Negative LAB URINALYSIS - AUTOMATED METHOD 02/07/2025 1:34 PM [facility] Nitrite, Urine Negative Negative LAB URINALYSIS - AUTOMATED METHOD 02/07/2025 1:34 PM [facility] Protein, Urine 30(A) <=Trace mg/dL LAB URINALYSIS - AUTOMATED METHOD 02/07/2025 1:34 PM [facility] Glucose, Urine Negative Negative mg/dL LAB URINALYSIS - AUTOMATED METHOD 02/07/2025 1:34 PM [facility] Ketones, Urine Trace(A) Negative mg/dL LAB URINALYSIS - AUTOMATED METHOD 02/07/2025 1:34 PM [facility] Urobilinogen , Urine 0.2 0.2 - 1.0 mg/dL LAB URINALYSIS - AUTOMATED METHOD 02/07/2025 1:34 PM [facility] Bilirubin, Urine Negative Negative LAB URINALYSIS - AUTOMATED METHOD 02/07/2025 1:34 PM [facility] Blood, Urine Trace(A) Negative LAB URINALYSIS - AUTOMATED METHOD 02/07/2025 1:34 PM EDT [facility] RBC, Urine 13.5(H) 0 - 4 /HPF LAB URINALYSIS - AUTOMATED METHOD 02/07/2025 1:34 PM EDT [facility] WBC, Urine 846.5(H) 0 - 4 /HPF LAB URINALYSIS - AUTOMATED METHOD 02/07/2025 1:34 PM EDT [facility] Squamous Epithelial, Urine >100(H) 0 - 60 /LPF LAB URINALYSIS - AUTOMATED METHOD 02/07/2025 1:34 PM EDT [facility] Bacteria, Urine Negative Negative /HPF LAB URINALYSIS - AUTOMATED METHOD 02/07/2025 1:34 PM EDT [facility] Hyaline Casts, Urine 12.0(H) 0 - 3 /LPF LAB URINALYSIS - AUTOMATED METHOD 02/07/2025 1:34 PM EDT [facility] Yeast, Urine Present(A) None /HPF LAB URINALYSIS - AUTOMATED METHOD 02/07/2025 1:34 PM T [facility] Urine Urine specimen obtained by clean catch procedure / Unknown 02/07/2025 02/07/2025 11:37 AM EDT us Keli Dickinson MD LAB URINE ORDERABLES Final Resul t [facility] [address] [place] [address], documented in this encounter Visit Diagnoses Diagnosis Urinary tract infection, site not specified documented in this encounter 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
--- OUTSIDE RECORDS SUMMARY | 2025-04-04 15:01 | XMS_ITS | Encounter Summary ---
Author Organization [facility] Address [address] [place] [address] Care Team Providers Care Marine Design Engineer Name Role Phone Keli Dickinson MD Primary Care Provider [phone] Encounter Details Date Type Department Care Team (Late st Contact Info) Description 02/06/[address] [facility] Lab [address] [place] [address] Keli Dickinson MD [address] [place] [address] Syncope and collapse Social History [...] LAB CHEMISTRY METHOD 02/06/2025 12:38 PM EDT [facility] Potassium 4.4 3.5 - 5.5 mmol/L LAB CHEMISTRY METHOD 02/06/2025 12:38 PM EDT [facility] Chloride 103 96 - 110 mmol/L LAB CHEMISTRY METHOD 02/06/2025 12:38 PM T [facility] CO2 26 21 - 32 mmol/L LAB CHEMISTRY METHOD 02/06/2025 12:38 PM EDT [facility] Anion Gap 6 3 - 11 LAB CHEMISTRY METHOD 02/06/2025 12:38 PM [facility] Glucose 58(L) 70 - 100 mg/dL LAB CHEMISTRY METHOD 02/06/2025 12:38 PM EDT [facility] BUN 17 5 - 25 mg/dL LAB CHEMISTRY METHOD 02/06/2025 12:38 PM EDT [facility] Creatinine 0.66 0.50 - 1.10 mg/dL LAB [facility] e[facility] 84 >=60 mL/min/1. 73m2 LAB CHEMISTRY METHOD 02/06/2025 12:38 PM EDT [facility] Comment:Calculation based on the??Chronic Kidney Disease Epidemiology Collaboration (CKD-EPI) equation refit??without adjustment for race. BUN/Creatinine Ratio 25.8 LAB CHEMISTRY METHOD 02/06/2025 12:38 PM [facility] Calcium 8.7 8.5 - 10.5 mg/dL LAB CHEMISTRY METHOD 02/06/2025 12:38 PM [facility] Blood Venous blood specimen / Unknown Venipuncture / Unknown 02/06/2025 7:07 AM EDT 02/06/2025 10:22 AM EDT us Keli Dickinson MD LAB BLOOD ORDERABLES Final Resul t [facility] [address] [place] [address], * (ABNORMAL) Complete blood count (02/06/2025 7:07 AM EDT) WBC 8.2 4.8 - 10.8 K/mcL LAB HEMETOLOGY METHOD 02/06/2025 11:56 AM [facility] RBC 4.10 3.80 - 4.80 M/mcL LAB HEMETOLOGY METHOD 02/06/2025 11:56 AM [facility] Hemoglobin 10.4(L) 11.5 - 16.0 g/dL LAB HEMETOLOGY METHOD 02/06/2025 11:56 AM [facility] Hematocrit 34.0(L) 35.0 - 47.0 % LAB HEMETOLOGY METHOD 02/06/2025 11:56 AM [facility] MCV 82.9 79.0 - 98.0 FL LAB HEMETOLOGY METHOD 02/06/2025 11:56 AM [facility] MCH 25.4(L) 27.0 - 32.0 pcg LAB HEMETOLOGY METHOD 02/06/2025 11:56 AM [facility] MCHC 30.6(L) 32.0 - 37.0 g/dL LAB HEMETOLOGY METHOD 02/06/2025 11:56 AM [facility] RDW 15.9(H) 11.0 - 15.0 % LAB HEMETOLOGY METHOD 02/06/2025 11:56 AM [facility] Platelets 228 130 - 400 K/mcL LAB HEMETOLOGY METHOD 02/06/2025 11:56 AM [facility] MPV 11.6(H) 7.0 - 11.0 FL LAB HEMETOLOGY METHOD 02/06/2025 11:56 AM [facility] NRBC 0.0 <1.0 % LAB HEMETOLOGY METHOD 02/06/2025 11:56 AM [facility] NRBC Absolute 0.00 <0.10 K/mcL LAB HEMETOLOGY METHOD 02/06/2025 11:56 AM [facility] Blood Venous blood specimen / Unknown Venipuncture / Unknown 02/06/2025 7:07 AM EDT 02/06/2025 10:22 AM EDT us Keli Dickinson MD LAB BLOOD ORDERABLES Final Resul t [facility] [address] [place] [address], documented in this encounter Visit Diagnoses Diagnosis Syncope and collapse documented in this encounter 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
--- OUTSIDE RECORDS SUMMARY | 2025-04-04 15:01 | XMS_ITS ---
Author Organization [facility] Address [address] [place] [address] Care Team Providers Care Geotechnical Department Manager Name Role Phone Janes Foster MD Primary Care Provider Fernando Wall Unavailable [phone] REASON FOR VISIT cx 10/18 Encounters Encounter Location Date Provider Diagnosis [address] [address] 10/17/2024 Fernando Lim Plan Of Treatment No Information Progress Notes * TIFFANYYuli Lisa ADOB:[birth year] (89 yo F)Acc No.[id number]:10/17/2024 Patient:?Lisa HOLLIDAY :1935???Age:88 Y???Sex:Female Address: [place], [address] * true * Date:? Generated for Printi jesus manuel/Jonnie/eTransmitting on:?04/04/2025 03:01 PM EDT
--- OUTSIDE RECORDS SUMMARY | 2025-04-04 15:01 | XMS_ITS | Encounter Summary ---
Author Organization [facility] Address [address] [place] [address] Care Team Providers Care Sock Drier Name Role Phone Keli Dickinson MD Primary Care Provider [phone] Encounter Details Date Type Department Care Team (Late st Contact Info) Description 02/23/2025 Lab Requisition [facility] - Main Lab [address] [place] [address] Keli Dickinson MD [address] [place] [address] Urgency of urination; Urinary tract [...] (ABNORMAL) Culture urine (02/21/2025 10:30 PM EDT) [facility] Signature Culture, Urine >100,000 CFU/mL Proteus [...] Final Result [facility] [address] [place] [address], [place] [phone] * (ABNORMAL) Urinalysis with reflex microscopic and culture (02/21/2025 10:30 PM EDT) Specific [place] Urine 1.029 1.003 - 1.030 LAB URINALYSIS - AUTOMATED METHOD 02/23/2025 11:46 AM [facility] pH, Urine >=9.0(A) 5.0 - 8.0 pH LAB URINALYSIS - AUTOMATED METHOD 02/23/2025 11:46 AM [facility] Leukocytes, Urine Large(A) Negative LAB URINALYSIS - AUTOMATED METHOD 02/23/2025 11:46 AM [facility] Nitrite, Urine Positive(A) Negative LAB URINALYSIS - AUTOMATED METHOD 02/23/2025 11:46 AM [facility] Protein, Urine >=1000(A) <=Trace mg/dL LAB URINALYSIS - AUTOMATED METHOD 02/23/2025 11:46 AM [facility] Glucose, Urine 250(A) Negative mg/dL LAB URINALYSIS - AUTOMATED METHOD 02/23/2025 11:46 AM [facility] Ketones, Urine Negative Negative mg/dL LAB URINALYSIS - AUTOMATED METHOD 02/23/2025 11:46 AM [facility] Urobilinogen , Urine 1.0 0.2 - 1.0 mg/dL LAB URINALYSIS - AUTOMATED METHOD 02/23/2025 11:46 AM [facility] Bilirubin, Urine Negative Negative LAB URINALYSIS - AUTOMATED METHOD 02/23/2025 11:46 AM [facility] Blood, Urine Negative Negative LAB URINALYSIS - AUTOMATED METHOD 02/23/2025 11:46 AM [facility] RBC, Urine 4.0 0 - 4 /HPF LAB URINALYSIS - AUTOMATED METHOD 02/23/2025 11:46 AM [facility] WBC, Urine 13.8(H) 0 - 4 /HPF LAB URINALYSIS - AUTOMATED METHOD 02/23/2025 11:46 AM EDT [facility] Squamous Epithelial, Urine >100(H) 0 - 60 /LPF LAB URINALYSIS - AUTOMATED METHOD 02/23/2025 11:46 AM EDT [facility] Crystals, Urine HEAVY TRIPLE PHOS /LPF LAB URINALYSIS - AUTOMATED METHOD 02/23/2025 11:46 AM EDT [facility] Bacteria, Urine Many(A) Negative /HPF LAB URINALYSIS - AUTOMATED METHOD 02/23/2025 11:46 AM EDT [facility] Hyaline Casts, Urine 15.0(H) 0 - 3 /LPF LAB URINALYSIS - AUTOMATED METHOD 02/23/2025 11:46 AM EDT [facility] Urine Urine specimen from urethra / Unknown Non-blood Collection / Unknown 02/21/2025 10:30 PM EDT 02/23/2025 11:14 AM EDT us Keli Dickinson MD LAB URINE ORDERABLES Final Resul t Performing Organization Address City/[facility]/ZIP Co de Phone Number [facility] [address] [place] [address], [place] [phone] * [place] urine culture tube (02/21/2025 10:30 PM EDT) Extra Tube Hold for add-ons. 02/23/2025 1:02 PM EDT [facility] Comment:Auto resulted. 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
--- OUTSIDE RECORDS SUMMARY | 2025-04-04 15:02 | XMS_ITS | Encounter Summary ---
Author Organization [facility] Address [address] [place] [address] Care Team Providers Care Application Performance Engineer Name Role Phone Keli Dickinson MD Primary Care Provider [phone] Encounter Details Date Type Department Care Team (Late st Contact Info) Description 11/05/2024 Lab Requisition [facility] - Main Lab [address] [place] [address] Marine Ryder MD [address] [place] [id number] Encounter for other general examination Social History [...] LAB HEMETOLOGY METHOD 11/05/2024 10:00 AM EST [facility] RBC 3.20(L) 3.80 - 4.80 M/mcL LAB HEMETOLOGY METHOD 11/05/2024 10:00 AM [facility] Hemoglobin 8.0(L) 11.5 - 16.0 g/dL LAB HEMETOLOGY METHOD 11/05/2024 10:00 AM [facility] Hematocrit 25.6(L) 35.0 - 47.0 % LAB HEMETOLOGY METHOD 11/05/2024 10:00 AM [facility] MCV 81.0 79.0 - 98.0 FL LAB HEMETOLOGY METHOD 11/05/2024 10:00 AM [facility] MCH 25.3(L) 27.0 - 32.0 pcg LAB HEMETOLOGY METHOD 11/05/2024 10:00 AM [facility] MCHC 31.3(L) 32.0 - 37.0 g/dL LAB HEMETOLOGY METHOD 11/05/2024 10:00 AM [facility] RDW 18.3(H) 11.0 - 15.0 % LAB HEMETOLOGY METHOD 11/05/2024 10:00 AM [facility] Platelets 254 130 - 400 K/mcL LAB HEMETOLOGY METHOD 11/05/2024 10:00 AM [facility] MPV 11.7(H) 7.0 - 11.0 FL LAB HEMETOLOGY METHOD 11/05/2024 10:00 AM [facility] NRBC 0.0 <1.0 % LAB HEMETOLOGY METHOD 11/05/2024 10:00 AM [facility] NRBC Absolute 0.00 <0.10 K/mcL LAB HEMETOLOGY METHOD 11/05/2024 10:00 AM [facility] Neutrophils Relative 77.4 % LAB HEMETOLOGY METHOD 11/05/2024 10:00 AM [facility] Lymphocytes Relative 12.2 % LAB HEMETOLOGY METHOD 11/05/2024 10:00 AM [facility] Monocytes Relative 8.8 % LAB HEMETOLOGY METHOD 11/05/2024 10:00 AM [facility] Eosinophils Relative 0.9 % LAB HEMETOLOGY METHOD 11/05/2024 10:00 AM [facility] Basophils Relative 0.3 % LAB HEMETOLOGY METHOD 11/05/2024 10:00 AM [facility] Immature Granulocytes Relative 0.4 % LAB HEMETOLOGY METHOD 11/05/2024 10:00 AM [facility] Neutrophils Absolute 7.66(H) 1.50 - 7.00 K/mcL LAB HEMETOLOGY METHOD 11/05/2024 10:00 AM [facility] Lymphocytes Absolute 1.21 1.00 - 5.00 K/mcL LAB HEMETOLOGY METHOD 11/05/2024 10:00 AM [facility] Monocytes Absolute 0.87 0.20 - 1.00 K/mcL LAB HEMETOLOGY METHOD 11/05/2024 10:00 AM [facility] Eosinophils Absolute 0.09 0.00 - 0.50 K/mcL LAB HEMETOLOGY METHOD 11/05/2024 10:00 AM [facility] Basophils Absolute 0.03 0.00 - 0.20 K/mcL LAB HEMETOLOGY METHOD 11/05/2024 10:00 AM [facility] Immature Granulocytes Absolute 0.04(H) 0.00 - 0.03 K/mcL LAB HEMETOLOGY METHOD 11/05/2024 10:00 AM [facility] Blood Venous blood specimen / Unknown Venipuncture / Unknown 11/05/2024 5:12 AM EST 11/05/2024 8:55 AM EST us Marine Ryder MD LAB BLOOD ORDERABLES Final Resu lt Performing Organization Address [facility]/ZIP Co de Phone Number [facility] [address] [place] [address], * Magnesium (11/05/2024 5:12 AM EST) Magnesium 2.5 1.9 - 2.6 mg/dL LAB CHEMISTRY METHOD 11/05/2024 10:41 AM EST [facility] Blood Venous blood specimen / Unknown Venipuncture / Unknown 11/05/2024 5:12 AM EST 11/05/2024 8:55 AM EST Marine Ryder MD LAB BLOOD ORDERABLES Final Resu lt Performing Organization Address [facility]/ZIP Co de Phone Number [facility] [address] [place] [address], * (ABNORMAL) Comprehensive metabolic panel (11/05/2024 5:12 AM EST) Pathologist [facility] Sodium 132(L) 133 - 145 mmol/L LAB CHEMISTRY METHOD 11/05/2024 10:42 AM [facility] Potassium 5.2 3.5 - 5.5 mmol/L LAB CHEMISTRY METHOD 11/05/2024 10:42 AM [facility] Chloride 99 96 - 110 mmol/L LAB CHEMISTRY METHOD 11/05/2024 10:42 AM [facility] CO2 29 21 - 32 mmol/L LAB CHEMISTRY METHOD 11/05/2024 10:42 AM [facility] Anion Gap 4 3 - 11 LAB CHEMISTRY METHOD 11/05/2024 10:42 AM [facility] Glucose 256(H) 70 - 100 mg/dL LAB CHEMISTRY METHOD 11/05/2024 10:42 AM [facility] BUN 39(H) 5 - 25 mg/dL LAB CHEMISTRY METHOD 11/05/2024 10:42 AM [facility] Creatinine 0.87 0.50 - 1.10 mg/dL LAB CHEMISTRY METHOD 11/05/2024 10:42 AM [facility] eGFR 64 >=60 mL/min/1. 73m2 LAB CHEMISTRY METHOD 11/05/2024 10:42 AM [facility] Comment:Calculation based on the??Chronic Kidney Disease Epidemiology Collaboration (CKD-EPI) equation refit??without adjustment for race. BUN/Creatinine Ratio 44.8 LAB CHEMISTRY METHOD 11/05/2024 10:42 AM [facility] Calcium 8.2(L) 8.5 - 10.5 mg/dL LAB CHEMISTRY METHOD 11/05/2024 10:42 AM [facility] AST (SGOT) 56(H) 10 - 42 unit/L LAB CHEMISTRY METHOD 11/05/2024 10:42 AM [facility] ALT (SGPT) 16 10 - 60 unit/L LAB CHEMISTRY METHOD 11/05/2024 10:42 AM [facility] Alkaline Phosphatase 77 42 - 121 unit/L LAB CHEMISTRY METHOD 11/05/2024 10:42 AM [facility] Total Protein 5.1(L) 6.0 - 8.0 g/dL LAB CHEMISTRY METHOD 11/05/2024 10:42 AM [facility] Albumin 2.5(L) 3.2 - 5.0 g/dL LAB CHEMISTRY METHOD 11/05/2024 10:42 AM [facility] Total Bilirubin 0.8 0.0 - 1.4 mg/dL LAB CHEMISTRY METHOD 11/05/2024 10:42 AM [facility] Blood Venous blood specimen / Unknown Venipuncture / Unknown 11/05/2024 5:12 AM EST 11/05/2024 8:55 AM EST us Marine Ryder MD LAB BLOOD ORDERABLES Final Resu lt [facility] [address] [place] [address], documented in this encounter Visit Diagnoses Diagnosis Encounter for other general examination documented in this encounter Additional Health Concerns Infection Onset Date Last Indicated Resolved Time Gastrointestinal Rule-Out 11/15/2024 11/15/2024 2:43 PM EST 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
--- OUTSIDE RECORDS SUMMARY | 2025-04-04 15:02 | XMS_ITS | Encounter Summary ---
Author Organization [facility] Address [address] [place] [address] Care Team Providers Care Brick Setter Name Role Phone Keli Dickinson MD Primary Care Provider [phone] Encounter Details Date Type Department Care Team (Late st Contact Info) Description 11/15/[address] [facility] Lab [address] [facility] [place] [address] Marine Ryder MD [address] [place] [phone] Encounter for other general examination Social History [...] Detected LAB MICROBIOLOGY METHOD 4 2:43 PM [facility] Plesiomonas shigelloides Detection by PCR Not Detected Not Detected LAB MICROBIOLOGY METHOD 4 2:43 PM [facility] Salmonella Detection by PCR Not Detected Not Detected LAB MICROBIOLOGY METHOD 4 2:43 PM [facility] Vibrio Detection by PCR Not Detected Not Detected LAB MICROBIOLOGY METHOD 4 2:43 PM [facility] Vibrio cholerae Detection by PCR Not Detected Not Detected LAB MICROBIOLOGY METHOD 4 2:43 PM [facility] Yersinia enterocolitica Detection by PCR Not Detected Not Detected LAB MICROBIOLOGY METHOD 4 2:43 PM [facility] Enteroaggregative E coli EAEC Detection by PCR Not Detected Not Detected LAB MICROBIOLOGY METHOD 4 2:43 PM [facility] Enteropathogenic E coli EPEC Detection Not Detected Not Detected LAB MICROBIOLOGY METHOD 4 2:43 PM [facility] Enterotoxigenic E coli ETEC LTST Detection Not Detected Not Detected LAB MICROBIOLOGY METHOD 4 2:43 PM [facility] Shiga-like toxin producing E coli STEC STX1 STX2 Det Not Detected Not Detected LAB MICROBIOLOGY METHOD 4 2:43 PM [facility] Shigella Enteroinvasive E coli EIEC Detection Not Detected Not Detected LAB MICROBIOLOGY METHOD 4 2:43 PM [facility] Cryptosporidium Detection by PCR Not Detected Not Detected LAB MICROBIOLOGY METHOD 4 2:43 PM [facility] Cyclospora cayetanensis Detection by PCR Not Detected Not Detected LAB MICROBIOLOGY METHOD 4 2:43 PM [facility] Entamoeba histolytica Detection by PCR Not Detected Not Detected LAB MICROBIOLOGY METHOD 4 2:43 PM [facility] Giardia lamblia Detection by PCR Not Detected Not Detected LAB MICROBIOLOGY METHOD 4 2:43 PM [facility] Adenovirus F 40 41 Detection by PCR Not Detected Not Detected LAB MICROBIOLOGY METHOD 4 2:43 PM [facility] Astrovirus Detection by PCR Not Detected Not Detected LAB MICROBIOLOGY METHOD 4 2:43 PM [facility] Norovirus GI GII Detection by PCR Not Detected Not Detected LAB MICROBIOLOGY METHOD 4 2:[address] [facility] Sapovirus Detection by PCR Not Detected Not Detected LAB MICROBIOLOGY METHOD 4 2:43 PM [facility] Rotavirus A Detection by PCR Not Detected Not Detected LAB MICROBIOLOGY METHOD 4 2:43 PM [facility] Stool Rectum structure / Unknown [...] us Marine Ryder MD LAB MICROBIOLOGY - [facility] JENNY PEDRAZA Final Result [facility] [address] [place] [address], documented in this encounter Visit Diagnoses Diagnosis Encounter for other general examination documented in this encounter Additional Health Concerns Infection Onset Date Last Indicated Resolved Time Gastrointestinal Rule-Out 11/15/2024 11/15/2024 2:43 PM EST 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
--- OUTSIDE RECORDS SUMMARY | 2025-04-04 15:02 | XMS_ITS | Encounter Summary ---
Author Organization [facility] Address [address] [place] [address] Care Team Providers Care Trestleman Name Role Phone Keli Dickinson MD Primary Care Provider [phone] Encounter Details Date Type Department Care Team (Late st Contact Info) Description 12/01/2024 Lab Requisition [facility] Lab [address] [place] [address] Keli Dickinson MD [address] [place] [address] Other osteonecrosis, unspecified femur (CMS/HCC [...] AM EST) WBC 7.1 4.8 - 10.8 K/[facility] LAB HEMETOLOGY METHOD 12/01/2024 12:50 PM EST [facility] RBC 3.70(L) 3.80 - 4.80 /[facility] LAB HEMETOLOGY METHOD 12/01/2024 12:50 PM [facility] Hemoglobin 9.7(L) 11.5 - 16.0 g/dL LAB HEMETOLOGY METHOD 12/01/2024 12:50 PM [facility] Hematocrit 30.8(L) 35.0 - 47.0 % LAB HEMETOLOGY METHOD 12/01/2024 12:50 PM [facility] MCV 83.2 79.0 - 98.0 FL LAB HEMETOLOGY METHOD 12/01/2024 12:50 PM [facility] MCH 26.2(L) 27.0 - 32.0 pcg LAB HEMETOLOGY METHOD 12/01/2024 12:50 PM [facility] MCHC 31.5(L) 32.0 - 37.0 g/dL LAB HEMETOLOGY METHOD 12/01/2024 12:50 PM [facility] RDW 17.7(H) 11.0 - 15.0 % LAB HEMETOLOGY METHOD 12/01/2024 12:50 PM [facility] Platelets 462(H) 130 - 400 K/mcL LAB HEMETOLOGY METHOD 12/01/2024 12:50 PM [facility] MPV 10.3 7.0 - 11.0 FL LAB HEMETOLOGY METHOD 12/01/2024 12:50 PM [facility] NRBC 0.0 <1.0 % LAB HEMETOLOGY METHOD 12/01/2024 12:50 PM [facility] NRBC Absolute 0.00 <0.10 K/mcL LAB HEMETOLOGY METHOD 12/01/2024 12:50 PM [facility] Neutrophils Relative 68.7 % LAB HEMETOLOGY METHOD 12/01/2024 12:50 PM [facility] Lymphocytes Relative 20.0 % LAB HEMETOLOGY METHOD 12/01/2024 12:50 PM EST [facility] Monocytes Relative 8.4 % LAB HEMETOLOGY METHOD 12/01/2024 12:50 PM [facility] Eosinophils Relative 1.6 % LAB HEMETOLOGY METHOD 12/01/2024 12:50 PM [facility] Basophils Relative 0.9 % LAB HEMETOLOGY METHOD 12/01/2024 12:50 PM [facility] Immature Granulocytes Relative 0.4 % LAB HEMETOLOGY METHOD 12/01/2024 12:50 PM [facility] Neutrophils Absolute 4.85 1.50 - 7.00 K/mcL LAB HEMETOLOGY METHOD 12/01/2024 12:50 PM [facility] Lymphocytes Absolute 1.41 1.00 - 5.00 K/mcL LAB HEMETOLOGY METHOD 12/01/2024 12:50 PM [facility] Monocytes Absolute 0.59 0.20 - 1.00 K/mcL LAB HEMETOLOGY METHOD 12/01/2024 12:50 PM [facility] Eosinophils Absolute 0.11 0.00 - 0.50 K/mcL LAB HEMETOLOGY METHOD 12/01/2024 12:50 PM [facility] Basophils Absolute 0.06 0.00 - 0.20 K/mcL LAB HEMETOLOGY METHOD 12/01/2024 12:50 PM [facility] Immature Granulocytes Absolute 0.03 0.00 - 0.03 K/mcL LAB HEMETOLOGY METHOD 12/01/2024 12:50 PM [facility] Blood Venous blood specimen / Unknown Venipuncture / Unknown 12/01/2024 8:38 AM EST 12/01/2024 10:08 AM EST us Keli Dickinson MD LAB BLOOD ORDERABLES Final Resul t [facility] [address] [place] [address], documented in this encounter Visit Diagnoses Diagnosis Other osteonecrosis, unspecified femur (CMS/[facility] V24, CMS/[facility] V28) documented in this encounter 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
--- OUTSIDE RECORDS SUMMARY | 2025-04-04 15:02 | XMS_ITS | Data Portability ---
Author Organization [place] [facility], Allergy Address [address] [address] Care Team Providers Care Production Machine Computer Operator Name Role Phone PHILIPP OVIEDO Primary [...] Recorded Time Impacted cerumen in right ear [id number] 90228 Active 2021 Impacted cerumen, right ear; Note: Date Diagnosed : 07/14/2022 1:28 PM (H61.21) Not Available [facility] 4 02:40:09 Sensorine ural hearing loss of bilateral ears 288404767 Active 2015 Sensorine ural hearing loss, bilateral ; Note: Date Diagnosed : 6 1:22 PM (H90.3) Not Available [facility] 4 02:40:08 Otitis media of left ear 35502069100 14367 Active 2019 Otitis media, unspecifi ed, left ear; Note: Date Diagnosed : 03/22/2020 9:49 AM (H66.92) Not Available [facility] 4 02:40:08 Impacted cerumen of bilateral ears 86712876697 53571 Active 2015 Impacted cerumen, bilateral ; Note: Date Diagnosed : 6 12:21 PM (H61.23) Not Available [facility] 4 02:40:14 Impacted cerumen 95906397 Active 2013 Impacted cerumen; CMS Risk: low risk CMS Treatment : new problem (to examiner) : no additiona l workup planned Not Available [facility] 4 02:40:16 Otorrhea of left ear 57392203583 33801 Active 2019 Otorrhea, left ear; Note: Date Diagnosed : 04/23/2020 3:37 PM (H92.12) Not Available [facility] 4 02:40:13 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 Procedures Surgical History Date Name Laterality Status Provider Name and Address Organization Details Recorded Time 4 Cerumen removal without microscope bilat completed CATHERINE DESAI PA-C [address] [place] [address], [id number] - [facility] 07/26/2024 11:54:29 Imaging Results None recorded. Procedure Notes None recorded. Medical Equipment None Reported. Medications Name Sig Start Date Stop Date Status Note LastModified by Organization Details LastModified Time nifedipin e ER 30 mg tablet,ex tended release 24 hr 03/21 completed Medicati on ID: [id number] Du ration Value: 90 Reason: () Brand Name: nifedipi ne Send Method: E-Prescr ibed Sub s Allowed: subs OK Speci al Instruct ion: TAKE 1 TABLET BY MOUTH EVERY DAY Medi [facility] nericNam e: nifedipi ne Not Available Not Available Not Available amoxicill in 500 mg capsule TAKE 4 CAPSULES BY MOUTH ONE HOUR PRIOR TO DENTAL PROCEDUR E active Not Available Not Available No t Available metformin 500 mg tablet 03/15 completed Medicati on ID: [id number] D uration Value: 90 Brand Name: metformi n Send Method: E-Prescr ibed Sub s Allowed: subs OK [facility] : metformi n Not Available Not Available Not Available lisinopri l 20 mg tablet active Not Available Not Available Not Available clonazepa m 0.5 mg tablet 04/23 completed Medicati on ID: [id number] D uration Value: 15 Reason: () Brand Name: clonazep am Send Method: E-Prescr ibed Sub s Allowed: subs OK Medic [facility] ericName : clonazep am Not Available Not Available Not Available Lantus U-100 Insulin 100 unit/mL subcutane ous solution 04/23 completed Medicati on ID: [id number] Du ration Value: 56 Reason: () Brand Name: Lantus U-100 Insulin Send Method: E-Prescr ibed Sub s Allowed: subs OK Speci al Instruct ion: INJECT 30 - 38 UNITS SUBCUTAN EOUSLY OR DIRECTED BY MD [facility] : Lantus U-100 Insulin Not Available Not Available Not Available levothyro xine 100 mcg tablet 03/15 completed Medicati on ID: [id number] D uration Value: 90 Brand Name: levothyr oxine Se nd Method: E-Prescr ibed Sub s Allowed: subs OK Medic [facility] ericName : levothyr oxine Not Available Not Available Not Available ofloxacin 0.3 % ear drops 03/15 completed Medicati on ID: [id number] D uration Value: 10 Brand Name: ofloxaci n Send Method: E-Prescr ibed Sub s Allowed: subs OK Medic [facility] ericName : ofloxaci n Not Available Not [...] 3 drop 04/23 completed Medicati on ID: [id number] D uration Value: 14 Prescri bed By Name: Clara perez MD Brand Name: tobramyc in-dexam ethasone Send Method: E-Prescr ibed Sub s Allowed: subs OK Speci al Instruct ion: apply to affected ear Medi cationGe nericNam e: tobramyc in-dexam ethasone Not Available Not Available Not Available neomycin- polymyxin -hydrocor t 3.5 mg-10,000 unit/mL-1 % ear drops,ester p 03/21 completed Medicati on ID: [id number] Du ration Value: 30 Reason: () Brand [...] topical gel 03/15 completed Medicati on ID: [id number] B rand Name: diclofen ac sodium S end Method: E-Prescr ibed Sub s Allowed: subs OK Medic [facility] ericName : diclofen ac sodium Not Available Not Available Not Available Arexvy (PF) 120 mcg/0.5 mL IM suspensio n active Medicati on ID: [id number] B rand Name: Audra (VELASQUEZ) Billy d Method: E-Prescr ibed Sub s Allowed: subs OK Medic [facility] ericName : Audra (PF) Not Available Not Available Not Available Vitals Date Recorded Body height Body mass index (BMI) Body weight Provider Name and Address Organization Details Last Updated DateTime 07/26/2024 157.48 cm 30.7 kg/m2 86681.52 g Donny Sarkar [place] [facility] 07/26/2024 11:16:48 Social History None recorded. Functional Status None recorded. Mental Status None recorded. Family History Nothing Reported. Medical History No medical history recorded. Gynecological HistoryNo gynecological history recorded. Obstetrics History GPAL:G 0 P 0 0 0 0 Past Encounters Encounter ID Performer Location Encounter Start Date Encounter Closed Date Diagnosis/Indication Diagnosis SNOMED-CT Code Diagnosis ICD10 Code Diagnosis Note [id number] CATHERINE DESAI PA-C [facility] [address] [address] 07/26/2024 11:12:02 07/26/2024 11:56:27 Impacted cerumen of bilateral ears [id number] 671224 H61.23 Health Concerns Section Related Observation LastModified by Organization Detai ls LastModified Time None Recorded Concern Status LastModified by Organization Details LastModified Time None Recorded Advance Directives Directive None Recorded Payers Insurance Date Sequence Insurance Name Policy Number Policy Genao Covered Member ID Genao Member ID Guarantor Name 10/21/2024 1 [place]ICARE [place]: [employer] Lisa Holliday [id number] Lisa Holliday 10/22/2024 2 [facility] - PLAN 1 (MEDICARE SUPPLEMENT) [id number] Lisa Holliday [id number] Lisa Holliday 07/26/2024 2 [facility] (MEDICAID HMO) [id number] Lisa Holliday [id number] Lisa Holliday Notes Date Note Type Note Provider Name and Address Organization Details Recorded Time 07/26/2024 text/html 88-year-old female presents for evaluation of the ears. She reports that her hearing is very poor despite her hearing aids. She notes it has been a very long time since she had an audiogram. She denies otalgia, otorrhea, and tinnitus. RUIZ CROW MD [address] [place] [address], [phone], [facility] - [facility] 07/26/2024 17:26:24 OBGyn Episode No OBEpisode recorded.
--- OUTSIDE RECORDS SUMMARY | 2025-04-04 15:02 | XMS_ITS ---
Author Organization [facility] Address [address] [place] [address] Care Team Providers Care Pricing Supervisor Name Role Phone Janes Foster MD Primary Care Provider Fernando Wall Unavailable [phone] Allergies Allergen (clinical drug ingredient) Drug/Non Drug [...] Ordered Date Performed Result Body Sit e 30919-CUZTRBI NAIL, 6 OR MORE 07/15/2024 N/A 16239-Lqxhsqdx Plate 07/15/2024 N/A 12742-COVX SKIN LESIONS, OVER 4 07/15/2024 N/A Encounters Encounter Location Date Provider Diagnosis [facility] [place] [address] [place] [address] 07/15/2024 Fernando Lim Type 1 diabetes mellitus [...] Treatment Pending Test Test Name Order Date 79136-EHYHITI NAIL, 6 OR MORE 07/15/2024 10570-Wahwmvzr Plate 07/15/2024 16388-PCGJ SKIN LESIONS, OVER 4 07/15/20 24 Next [...] Motrin was recommended for pain or discomfort (89932) , DIABETES: Pt was advised as to [...] use of a nail nipper and/or dremel-type lens grinder rough, to a more viable healthy nail plate or bed tissue 6-10. Silver nitrate used for any petechial bleeding as necessary. Definitive antifungal treatment options have been reviewed and discussed with the patient. The patient chooses, no pharmaceutical tx - 88033 Keratoma Treatment Parring or Cutting o f Benign Hyperkeratotic Lesion(s) 14556 ( >4 Lesions) - The Benign hyperkeratotic lesions, as described above were pared, and/or cut utilizing a sterile #15 blade, tissue nippers, and/or dremel Progress Notes * Lisa HOLLIDAY ADOB:[birth year] (88 yo F)Acc No.[id number]:07/15/2024 Progress Note Patient:?Lisa Holliday Provider:?Fernando Lim DPM :1935???Age:88 Y???Sex:Female D ate:07/15/2024 Address: [place] , [place]-[address] Pcp:Janes Foster MD Subjective: * Chief Complaints: [...] thyroidectomy needle Biopsy breast tissue 01/2017,02/2017[place] 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 10/2011[place] [place] Low / Heart [...] , T5? Plan: * Treatment: 2.?Ingrown nail?Procedure: 45450-Qbnvszcj Plate * Procedures:?Debride Nail 6-10:?Nail debridement?Performance of this nail treatment by a nonprofessional would put this patients foot and overall health at risk. Therefore, nail debridement was performed extensively to reduce/remove overall nail length, girth, thickness, subungual debris, and necrotic tissue, by manual and/or electrical means through the use of a nail nipper and/or dremel-type lens grinder rough, to a more viable healthy nail plate or bed tissue 6-10. Silver nitrate used for any petechial bleeding as necessary. Definitive antifungal treatment options have been reviewed and discussed with the patient. The patient chooses, no pharmaceutical tx - 45796.?Keratoma Treatment:?Parring or Cutting of Benign Hyperkeratotic Lesion(s)?80871 ( >4 Lesions) - The Benign hyperkeratotic [...] Motrin was recommended for pain or discomfort (45056) , DIABETES: Pt was advised as to the risk of delayed or nonhealing due to diabetes. Pt is to call the office with any questions, concerns, or complications.? * Procedure Codes:?07569 DEBRI DE NAIL, 6 OR MORE, Modifiers: XS 34852 Avulsion Plate, Modifiers: XS , [id number] TRIM SKIN LESIONS, OVER 4, Modifiers: XS * Follow Up:?prn * Images: * Sign off status: Completed true * Provider:?Fernando Lim DPM Date:?2023 Generated for Angélica ken/Jonnie/Nat on:?04/04/2025 03:01 PM EDT History and Physical Notes * [...]
--- OUTSIDE RECORDS SUMMARY | 2025-04-04 15:02 | XMS_ITS | Encounter Summary ---
Author Organization [facility] Address [address] [place] [address] Care Team Providers Care Microfilm Processor Name Role Phone Keli Dickinson MD Primary Care Provider [phone] Encounter Details Date Type Department Care Team (Late st Contact Info) Description 11/11/2024 Lab Requisition [facility] - Main Lab [address] [place] [address] Marine Ryder MD [address] [place] [address] Encounter for other general examination Social History [...] AM EST) WBC 8.2 4.8 - 10.8 K/[facility] LAB HEMETOLOGY METHOD 11/11/2024 10:22 AM EST [facility] RBC 3.00(L) 3.80 - 4.80 M/[facility] LAB HEMETOLOGY METHOD 11/11/2024 10:22 AM [facility] LAB Hemoglobin 7.7(L) 11.5 - 16.0 g/dL LAB HEMETOLOGY METHOD 11/11/2024 10:22 AM [facility] LAB Hematocrit 25.3(L) 35.0 - 47.0 % LAB HEMETOLOGY METHOD 11/11/2024 10:22 AM [facility] LAB MCV 83.8 79.0 - 98.0 FL LAB HEMETOLOGY METHOD 11/11/2024 10:22 AM [facility] LAB MCH 25.5(L) 27.0 - 32.0 pcg LAB HEMETOLOGY METHOD 11/11/2024 10:22 AM [facility] LAB MCHC 30.4(L) 32.0 - 37.0 g/dL LAB HEMETOLOGY METHOD 11/11/2024 10:22 AM [facility] LAB RDW 19.6(H) 11.0 - 15.0 % LAB HEMETOLOGY METHOD 11/11/2024 10:22 AM [facility] LAB Platelets 320 130 - 400 K/mcL LAB HEMETOLOGY METHOD 11/11/2024 10:22 AM [facility] LAB MPV 11.1(H) 7.0 - 11.0 FL LAB HEMETOLOGY METHOD 11/11/2024 10:22 AM [facility] LAB NRBC 0.0 <1.0 % LAB HEMETOLOGY METHOD 11/11/2024 10:22 AM [facility] LAB NRBC Absolute 0.00 <0.10 K/mcL LAB HEMETOLOGY METHOD 11/11/2024 10:22 AM [facility] Neutrophils Relative 74.2 % LAB HEMETOLOGY METHOD 11/11/2024 10:22 AM [facility] Lymphocytes Relative 13.1 % LAB HEMETOLOGY METHOD 11/11/2024 10:22 AM [facility] LAB Monocytes Relative 9.6 % LAB HEMETOLOGY METHOD 11/11/2024 10:22 AM EST [facility] LAB Eosinophils Relative 2.1 % LAB HEMETOLOGY METHOD 11/11/2024 10:22 AM [facility] Basophils Relative 0.5 % LAB HEMETOLOGY METHOD 11/11/2024 10:22 AM [facility] Immature Granulocytes Relative 0.5 % LAB HEMETOLOGY METHOD 11/11/2024 10:22 AM [facility] Neutrophils Absolute 6.08 1.50 - 7.00 K/mcL LAB HEMETOLOGY METHOD 11/11/2024 10:22 AM [facility] Lymphocytes Absolute 1.07 1.00 - 5.00 K/mcL LAB HEMETOLOGY METHOD 11/11/2024 10:22 AM [facility] Monocytes Absolute 0.79 0.20 - 1.00 K/mcL LAB HEMETOLOGY METHOD 11/11/2024 10:22 AM EST [facility] LAB Eosinophils Absolute 0.17 0.00 - 0.50 K/mcL LAB HEMETOLOGY METHOD 11/11/2024 10:22 AM [facility] Basophils Absolute 0.04 0.00 - 0.20 K/mcL LAB HEMETOLOGY METHOD 11/11/2024 10:22 AM [facility] Immature Granulocytes Absolute 0.04(H) 0.00 - 0.03 K/mcL LAB HEMETOLOGY METHOD 11/11/2024 10:22 AM [facility] Blood Venous blood specimen / Unknown Venipuncture / Unknown 11/11/2024 7:00 AM EST 11/11/2024 9:18 AM EST us Marine Ryder MD LAB BLOOD ORDERABLES Final Resu lt [facility] [address] [place] [address], [place] [phone] * (ABNORMAL) Comprehensive metabolic panel (11/11/2024 7:00 AM EST) Sodium 133 133 - 145 mmol/L LAB CHEMISTRY METHOD 11/11/2024 10:36 AM [facility] Potassium 4.9 3.5 - 5.5 mmol/L LAB CHEMISTRY METHOD 11/11/2024 10:36 AM [facility] Chloride 99 96 - 110 mmol/L LAB CHEMISTRY METHOD 11/11/2024 10:36 AM [facility] CO2 25 21 - 32 mmol/L LAB CHEMISTRY METHOD 11/11/2024 10:36 AM [facility] Anion Gap 9 3 - 11 LAB CHEMISTRY METHOD 11/11/2024 10:36 AM [facility] Glucose 255(H) 70 - 100 mg/dL LAB CHEMISTRY METHOD 11/11/2024 10:36 AM [facility] BUN 28(H) 5 - 25 mg/dL LAB CHEMISTRY METHOD 11/11/2024 10:36 AM [facility] Creatinine 0.83 0.50 - 1.10 mg/dL LAB CHEMISTRY METHOD 11/11/2024 10:36 AM [facility] LAB eGFR 67 >=60 mL/min/1. 73m2 LAB CHEMISTRY METHOD 11/11/2024 10:36 AM [facility] Comment:Calculation based on the??Chronic Kidney Disease Epidemiology Collaboration (CKD-EPI) equation refit??without adjustment for race. BUN/Creatinine Ratio 33.7 LAB CHEMISTRY METHOD 11/11/2024 10:36 AM [facility] Calcium 8.0(L) 8.5 - 10.5 mg/dL LAB CHEMISTRY METHOD 11/11/2024 10:36 AM [facility] AST (SGOT) 23 10 - 42 unit/L LAB CHEMISTRY METHOD 11/11/2024 10:36 AM [facility] ALT (SGPT) 14 10 - 60 unit/L LAB CHEMISTRY METHOD 11/11/2024 10:36 AM EST [facility] Alkaline Phosphatase 87 42 - 121 unit/L LAB CHEMISTRY METHOD 11/11/2024 10:36 AM [facility] Total Protein 5.2(L) 6.0 - 8.0 g/dL LAB CHEMISTRY METHOD 11/11/2024 10:36 AM EST [facility] Albumin 2.3(L) 3.2 - 5.0 g/dL LAB CHEMISTRY METHOD 11/11/2024 10:36 AM [facility] Total Bilirubin 0.9 0.0 - 1.4 mg/dL LAB CHEMISTRY METHOD 11/11/2024 10:36 AM [facility] Blood Venous blood specimen / Unknown Venipuncture / Unknown 11/11/2024 7:00 AM EST 11/11/2024 9:18 AM EST us Marine Ryder MD LAB BLOOD ORDERABLES Final Resu lt [facility] [address] [place] [address], documented in this encounter Visit Diagnoses Diagnosis Encounter for other general examination documented in this encounter Additional Health Concerns Infection Onset Date Last Indicated Resolved Time Gastrointestinal Rule-Out 11/15/2024 11/15/2024 2:43 PM EST 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
--- OUTSIDE RECORDS SUMMARY | 2025-04-04 15:02 | XMS_ITS | Data Portability ---
Author Organization [place] - [facility], [facility] Address [address] [place] [address] Care Team Providers Care General Passenger Agent Name Role Phone PHILIPP OVIEDO Primary Care Provider [facility] OTHER [phone] Assessment Encounter Date Assessment Date Assessment LastModified by Organization Details LastModified Time 11/30/2018 11/30/2018 Overview/History : 83-year-old female, who is new to [facility], with a past medical history includes [...] I have accessed patient records on the [employer]. This information was pertinent in my medical decision making today. Time On Scene with Patient: 00:29:06 [email or web address] Not available 11/30/2018 20:42:40 08/09/2020 08/09/2020 Overview/History: This is an 84-year-old female that is known to [facility] but new to this provider. [facility] were contacted today as the patient had [...] did discuss with the patient's nurse that [facility] would check lab work to evaluate her, no indication for IV fluids at this time. I also discussed that [facility] does not carry insulin and that [...] after care of this patient according to [facility]'s infection prevention protocols. Lab Results BMP + ionized calcium, serum or plasma glu: 387mg/dL ref: 70-105 BUN: 36mg/dL ref: 8-26 crea: 1.0mg/dL ref: 0.6-1.3 Na: 131mmol/L ref: 138-146 K: 4.9mmol/L ref: 3.5-4.9 cL: 95mmol/L ref: 98-109 TCO2: 21mmol/L ref: 24-29 angap: 20mmol/L ref: 10-20 ica: 1.21mmol/L ref: 1.12-1.32 HCT: 40%pcv ref: 37-47 Hb: 13.6g/dL ref: 12-17 Time On Scene with Patient: 00:48:48 [email or web address] Not available 08/09/2020 21:29:37 Plan of Treatment Reminders Order Date Submit Date Provider Last Modified By Organization Details Last Modified Time Details Appointments None recorded. Lab BMP + ionized calcium, serum or plasma 2019 020 [facility] [address], [place], [address], 0 16:03:38 Referral None recorded. Procedures None recorded. Surgeries None recorded. Imaging None recorded. Medication Orders diclofenac 1 % topical gel 2019 020 INTERFACE [id number], [address] [place], [address], 0 16:10:01 Patient TargetsNo targets recorded. Patient Instructions Encounter Date Encounter Id Patient Instructions Last Modified By Organization Details Last Modified Time 11/30/2018 [id number] No evidence of a ny objects in your ear. Follow up with your ENT/PCP as needed. Thank you for your visit with [employer] today. We cannot always find the exact [...] in your condition between 8am-10pm, please call [facility] at [phone] to help navigate your care. Not available 11/30/2018 19:46:27 08/09/2020 [id number] WE CAME TO SEE Y OU TODAY [...] ROOM. Thank you for your visit with [facility] today. We cannot always find the [...] in your condition between 8am-10pm, please call [facility] at [phone] to help navigate your care. [email or web address] Not available 08/09/2020 16:09:54 Reason for Referral None Reported. Results Created Date Observation Date Name Description Value Unit Range Abnormal Flag Note LastModifiedBy Organization Detail LastModifiedTime 08/09/2008/09/2020 BMP + ioniz ed calci um, serum or plasm a glu 387 mg/dL 70-105 Not Available [facility] [address] [place], [address], 08/09/2020 16:03:38 08/09/20 20 08/09/2020 BMP + ioniz ed calci um, serum or plasm a BUN 36 mg/dL 8-26 Not Available [facility] [address] [place], [address], 08/09/2020 16:03:38 08/09/20 20 08/09/2020 BMP + ioniz ed calci um, serum or plasm a crea 1.0 mg/dL 0.6-1. 3 Not Available [facility] [address] [place], [address], 08/09/2020 16:03:38 08/09/20 20 08/09/2020 BMP + ioniz ed calci um, serum or plasm a Na 131 mmol/ L 138-14 6 Not Available [facility] [address] [place], [address], 08/09/2020 16:03:38 08/09/20 20 08/09/2020 BMP + ioniz ed calci um, serum or plasm a K 4.9 mmol/ L 3.5-4. 9 Not Available [address], [address], 08/09/2020 16:03:38 08/09/20 20 08/09/2020 BMP + ioniz ed calci um, serum or plasm a cL 95 mmol/ L 98-109 Not Available [address], [address], 08/09/2020 16:03:38 08/09/20 20 08/09/2020 BMP + ioniz ed calci um, serum or plasm a TCO2 21 mmol/ L 24- Not Available [address], [address], 08/09/2020 16:03:38 08/09/20 20 08/09/2020 BMP + ioniz ed calci um, serum or plasm a angap 20 mmol/ L 10-20 Not Available [address], [address], 08/09/2020 16:03:38 08/09/20 20 08/09/2020 BMP + ioniz ed calci um, serum or plasm a ica 1.21 mmol/ L 1.12-1 .32 Not Available [address], [address], 08/09/2020 16:03:38 08/09/20 20 08/09/2020 BMP + ioniz ed calci um, serum or plasm a HCT 40 %pcv 37-47 Not Available [address], [address], 08/09/2020 16:03:38 08/09/20 20 08/09/2020 BMP + ioniz ed calci um, serum or plasm a Hb 13.6 g/dL 12-17 Not Available [address], [address], 08/09/2020 16:03:38 Result Notes None recorded. Procedures Surgical History Date Name Laterality Status Provider Name and Address Organization Details Recorded Time 08/09/20 20 Venipuncture - DH completed DERRELL SANTANA NP [address], [place], [address], [place] [facility] 08/09/2020 18:34:12 Imaging Results None recorded. [...] Not Available Not Avai lable Fluad Quad 3502-4260(6 5yr up)(PF) 60 mcg (15 mcg x [...] Smoker DOMENICO JOHN, KAELYN [address], [place], [address], [place] [facility] 11/30/2018 18:10:06 Do You Have An Advance Directive? Yes Information not available 11/30/2018 Within The Past 12 Months, Has It Happened That The Food You Bought Just Didn't Last And You Didn't Have Money To Get More. Normal sturgis Information not available 11/30/2018 Within The Past 12 Months, Have You Worried That Your Food Would Run Out Before You Got Money To Buy More. No: Trouble Affording Healthy Foods [facility] – Information not available 11/30/2018 Fall Risk: Do You Feel Unsteady When Standing Or Walking? No [facility] – Information not available 11/30/2018 Marital Status [facility] – Information not available 11/30/2018 What Was The Date Of Your Most Recent Tobacco Screening? 11/30/2018 Information not available 06/09/2019 How Much Tobacco Do You Smoke? 1 PPW [facility] – Information not available 11/30/2018 How Many Years Have You Smoked Tobacco? 15 [facility] – Information not available 11/30/2018 Sex: Unknown Functional Status None recorded. Mental Status None recorded. Family History Relationship Description Onset Age of this Age Resolved Age Notes LastModified by Organization Details LastModified Time Mother Coronary arterioscler osis [email or web address] Not available 11/30 18:09:56 Medical History Condition Response Diabetes Y Coronary Artery Disease N High Cholesterol Y Cancer N Pulmonary Embolism N Stroke N Hypertension Y Asthma N COPD N Depression N Kidney Disease N Gynecological HistoryNo gynecological history recorded. Obstetrics History GPAL:G 0 P 0 0 0 0 Past Encounters Encounter ID Performer Location Encounter Start Date Encounter Closed Date Diagnosis/Indication Diagnosis SNOMED-CT Code Diagnosis ICD10 Code Diagnosis Note [id number] DOMENICO JOHN NP [facility] [address] [place] [address] 11/30/2018 17:52:50 12/01/2018 16:36:34 Foreign body in ear 84208736 T16.1XXA [id number] DERRELL SANTANA [facility] [address] [facility] [place] [address] 08/09/2020 15:21:51 08/10/2020 14:27:21 Hyperglycemia 58074441 R73.9 Right side sciatica 3202 940570 77221 M54.31 Health Concerns Section Related Observation LastModified by Organization Detai ls LastModified Time None Recorded Concern Status LastModified by Organization Details LastModified Time None Recorded Advance Directives Directive Y: Payers Insurance Date Sequence Insurance Name Policy Number Policy Genao Covered Member ID Genao Member ID Guarantor Name 11/30/2018 1 *SELF PAY* Lisa Crossyuli [id number] Lisa Mg 09/06/2020 2 [facility] (MEDICARE SUPPLEMENT) Lisa Trianadelroy [id number] Lisa Holliday 08/09/2020 1 [place]: [employer] Lisa Torrez Konghilariajose [id number] Lisa Mg 08/10/2020 1 MEDIC[place] B-[place]: [facility] Lisa A Mg [id number] Lisa Mg 09/06/2020 2 UNSPECIFIED REMIT PAYOR Lisa Crossyuli Notes Date Note Type Note Provider Name and Address Organization Details Recorded Time 11/30/2018 text/html 83-year-old female, who is new to [facility] was evaluated for possibility of foreign body in the right ear. The patient is hard of hearing and wears hearing aids to both years. While cleaning her hearing aids earlier she felt as if the silicone earpiece became embedded in her ear canal. She denies any other complaints. DOMENICO JOHN NP [address] [place] [address], [address], [place] [facility] 12/08/2018 19:26:11 08/09/2020 text/html This is an 84-year-old female that is known to [facility] but new to this provider. She has a medical history significant for diabetes, hypertension and hyperlipidemia. The case management assistant from her PCP office had contacted [facility] because the patient had called in [...] both the nurse and the patient that [facility] [facility] does not carry insulin nor do we [...] cleaned out recently. DERRELL SANTANA, KAELYN [address] [facility], [place], [address], [place] [facility] 08/09/2020 21:29:50 OBGyn Episode No OBEpisode recorded.
--- OUTSIDE RECORDS SUMMARY | 2025-04-04 15:02 | XMS_ITS | Encounter Summary ---
Author Organization [facility] Address [address] [place] [address] Care Team Providers Care Vinegar Maker Name Role Phone Keli Dickinson MD Primary Care Provider [phone] Encounter Details Date Type Department Care Team (Late st Contact Info) Description 11/13/2024 Lab Requisition [facility] Lab [address] [place] [address] aMrine Ryder MD [address] [place] [address] Encounter for other general examination Social History [...] AM EST) WBC 8.7 4.8 - 10.8 K/[facility] LAB HEMETOLOGY METHOD 11/13/2024 8:42 AM EST [facility] RBC 3.00(L) 3.80 - 4.80 M/[facility] LAB HEMETOLOGY METHOD 11/13/2024 8:42 AM EST [facility] Hemoglobin 7.7(L) 11.5 - 16.0 g/dL LAB HEMETOLOGY METHOD 11/13/2024 8:42 AM [facility] LAB Hematocrit 25.4(L) 35.0 - 47.0 % LAB HEMETOLOGY METHOD 11/13/2024 8:42 AM [facility] LAB MCV 83.8 79.0 - 98.0 FL LAB HEMETOLOGY METHOD 11/13/2024 8:42 AM [facility] LAB MCH 25.4(L) 27.0 - 32.0 pcg LAB HEMETOLOGY METHOD 11/13/2024 8:42 AM [facility] LAB MCHC 30.3(L) 32.0 - 37.0 g/dL LAB HEMETOLOGY METHOD 11/13/2024 8:42 AM [facility] LAB RDW 20.0(H) 11.0 - 15.0 % LAB HEMETOLOGY METHOD 11/13/2024 8:42 AM [facility] LAB Platelets 335 130 - 400 K/mcL LAB HEMETOLOGY METHOD 11/13/2024 8:42 AM [facility] LAB MPV 10.7 7.0 - 11.0 FL LAB HEMETOLOGY METHOD 11/13/2024 8:42 AM [facility] LAB NRBC 0.0 <1.0 % LAB HEMETOLOGY METHOD 11/13/2024 8:42 AM [facility] LAB NRBC Absolute 0.00 <0.10 K/mcL LAB HEMETOLOGY METHOD 11/13/2024 8:42 AM [facility] LAB Neutrophils Relative 70.3 % LAB HEMETOLOGY METHOD 11/13/2024 8:42 AM [facility] LAB Lymphocytes Relative 16.4 % LAB HEMETOLOGY METHOD 11/13/2024 8:42 AM [facility] Monocytes Relative 10.4 % LAB HEMETOLOGY METHOD 11/13/2024 8:42 AM [facility] LAB Eosinophils Relative 1.7 % LAB HEMETOLOGY METHOD 11/13/2024 8:42 AM EST [facility] Basophils Relative 0.6 % LAB HEMETOLOGY METHOD 11/13/2024 8:42 AM [facility] Immature Granulocytes Relative 0.6 % LAB HEMETOLOGY METHOD 11/13/2024 8:42 AM [facility] LAB Neutrophils Absolute 6.14 1.50 - 7.00 K/mcL LAB HEMETOLOGY METHOD 11/13/2024 8:42 AM EST [facility] LAB Lymphocytes Absolute 1.43 1.00 - 5.00 K/mcL LAB HEMETOLOGY METHOD 11/13/2024 8:42 AM [facility] LAB Monocytes Absolute 0.91 0.20 - 1.00 K/mcL LAB HEMETOLOGY METHOD 11/13/2024 8:42 AM EST [facility] LAB Eosinophils Absolute 0.15 0.00 - 0.50 K/mcL LAB HEMETOLOGY METHOD 11/13/2024 8:42 AM EST [facility] Basophils Absolute 0.05 0.00 - 0.20 K/mcL LAB HEMETOLOGY METHOD 11/13/2024 8:42 AM [facility] LAB Immature Granulocytes Absolute 0.05(H) 0.00 - 0.03 K/mcL LAB HEMETOLOGY METHOD 11/13/2024 8:42 AM [facility] LAB Blood Venous blood specimen / Unknown Venipuncture / Unknown 11/13/2024 5:46 AM EST 11/13/2024 7:38 AM EST us Marine Ryder MD LAB BLOOD ORDERABLES Final Resu lt [facility] [address] [place] [address], documented in this encounter Visit Diagnoses Diagnosis Encounter for other general examination documented in this encounter Additional Health Concerns Infection Onset Date Last Indicated Resolved Time Gastrointestinal Rule-Out 11/15/2024 11/15/2024 2:43 PM EST 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
--- OUTSIDE RECORDS SUMMARY | 2025-04-04 15:02 | XMS_ITS | Encounter Summary ---
Author Organization [facility] Address [address] [place] [address] Care Team Providers Care Medical Case Manager Name Role Phone Keli Dickinson MD Primary Care Provider [phone] Encounter Details Date Type Department Care Team (Late st Contact Info) Description 11/08/2024 Lab Requisition [facility] Lab [address] [place] [address] Marine Ryder MD [address] [place] [address] Encounter for other general examination Social History [...] and culture (11/08/2024 9:53 AM EST) Specific [place] Urine 1.024 1.003 - 1.030 LAB URINALYSIS - AUTOMATED METHOD 11/08/2024 10:31 AM EST [facility] pH, Urine 5.5 5.0 - 8.0 pH LAB URINALYSIS - AUTOMATED METHOD 11/08/2024 10:31 AM [facility] LAB Leukocytes, Urine Negative Negative LAB URINALYSIS - AUTOMATED METHOD 11/08/2024 10:31 AM [facility] LAB Nitrite, Urine Negative Negative LAB URINALYSIS - AUTOMATED METHOD 11/08/2024 10:31 AM [facility] Protein, Urine 30(A) <=Trace mg/dL LAB URINALYSIS - AUTOMATED METHOD 11/08/2024 10:31 AM [facility] LAB Glucose, Urine >=1000(A) Negative mg/dL LAB URINALYSIS - AUTOMATED METHOD 11/08/2024 10:31 AM [facility] Ketones, Urine Trace(A) Negative mg/dL LAB URINALYSIS - AUTOMATED METHOD 11/08/2024 10:31 AM [facility] LAB Urobilinogen , Urine 1.0 0.2 - 1.0 mg/dL LAB URINALYSIS - AUTOMATED METHOD 11/08/2024 10:31 AM [facility] LAB Bilirubin, Urine Negative Negative LAB URINALYSIS - AUTOMATED METHOD 11/08/2024 10:31 AM [facility] Blood, Urine Negative Negative LAB URINALYSIS - AUTOMATED METHOD 11/08/2024 10:31 AM [facility] LAB RBC, Urine 1.1 0 - 4 /HPF LAB URINALYSIS - AUTOMATED METHOD 11/08/2024 10:31 AM [facility] LAB WBC, Urine 3.2 0 - 4 /HPF LAB URINALYSIS - AUTOMATED METHOD 11/08/2024 10:31 AM [facility] LAB Squamous Epithelial, Urine 55 0 - 60 /LPF LAB URINALYSIS - AUTOMATED METHOD 11/08/2024 10:31 AM [facility] Bacteria, Urine Negative Negative /HPF LAB URINALYSIS - AUTOMATED METHOD 11/08/2024 10:31 AM [facility] LAB Hyaline Casts, Urine 8.8(H) 0 - 3 /LPF LAB URINALYSIS - AUTOMATED METHOD 11/08/2024 10:31 AM EST [facility] Urine Urine specimen obtained by clean catch procedure / Unknown 11/08/2024 9:53 AM EST 11/08/2024 9:55 AM EST us Marine Ryder MD LAB URINE ORDERABLES Final Resu lt Performing Organization Address City/[facility]/ZIP Co de Phone Number [facility] [address] [place] [address], [place] [phone] * Hawkins urine culture tube (11/08/2024 9:53 AM EST) Extra Tube Hold for add-ons. 11/08/2024 11:02 AM EST [facility] Comment:Auto resulted. Urine Urine specimen obtained by clean catch procedure / Unknown 11/08/2024 9:53 AM EST 11/08/2024 9:55 AM EST us Marine Ryder MD LAB URINE ORDERABLES Final Resu lt Performing Organization Address [facility] Co de Phone Number [facility] [address] [place] [address], [place] [phone] documented in this encounter Visit Diagnoses Diagnosis Encounter for other general examination documented in this encounter Additional Health Concerns Infection Onset Date Last Indicated Resolved Time Gastrointestinal Rule-Out 11/15/2024 11/15/2024 2:43 PM EST VRE 01/25/2025 01/25/2025 documented as of this encounter Care Teams Medical Case Manager Relationship Specialty Start Date End Date Keli Dickinson MD [address] [place] [address] PCP - General Hospitalist Medicine 11/19/24 documented as of this encounter
--- OUTSIDE RECORDS SUMMARY | 2025-04-04 15:02 | XMS_ITS | Encounter Summary ---
Author Organization [facility] Address [address] [place] [address] Care Team Providers Care Data Keyer Name Role Phone Keli Dickinson MD Primary Care Provider [phone] Encounter Details Date Type Department Care Team (Late st Contact Info) Description 11/15/2024 Lab Requisition [facility] Lab [address] [place] [address] Marine Ryder MD [address] [place] [address] Encounter for other general examination Social History [...] LAB HEMETOLOGY METHOD 11/15/2024 10:33 AM EST [facility] RBC 3.20(L) 3.80 - 4.80 M/mcL LAB HEMETOLOGY METHOD 11/15/2024 10:33 AM EST [facility] Hemoglobin 8.1(L) 11.5 - 16.0 g/dL LAB HEMETOLOGY METHOD 11/15/2024 10:33 AM [facility] LAB Hematocrit 26.4(L) 35.0 - 47.0 % LAB HEMETOLOGY METHOD 11/15/2024 10:33 AM [facility] LAB MCV 83.5 79.0 - 98.0 FL LAB HEMETOLOGY METHOD 11/15/2024 10:33 AM [facility] LAB MCH 25.6(L) 27.0 - 32.0 pcg LAB HEMETOLOGY METHOD 11/15/2024 10:33 AM [facility] LAB MCHC 30.7(L) 32.0 - 37.0 g/dL LAB HEMETOLOGY METHOD 11/15/2024 10:33 AM [facility] LAB RDW 20.1(H) 11.0 - 15.0 % LAB HEMETOLOGY METHOD 11/15/2024 10:33 AM [facility] LAB Platelets 380 130 - 400 K/mcL LAB HEMETOLOGY METHOD 11/15/2024 10:33 AM [facility] LAB MPV 10.6 7.0 - 11.0 FL LAB HEMETOLOGY METHOD 11/15/2024 10:33 AM [facility] LAB NRBC 0.0 <1.0 % LAB HEMETOLOGY METHOD 11/15/2024 10:33 AM [facility] LAB NRBC Absolute 0.00 <0.10 K/mcL LAB HEMETOLOGY METHOD 11/15/2024 10:33 AM [facility] LAB Blood Venous blood specimen / Unknown Venipuncture / Unknown 11/15/2024 4:57 AM EST 11/15/2024 9:39 AM EST us Marine Ryder MD LAB BLOOD ORDERABLES Final Resu lt [facility] [address] [place] [address], * (ABNORMAL) Basic metabolic panel (11/15/2024 4:57 AM EST) Sodium 135 133 - 145 mmol/L LAB CHEMISTRY METHOD 11/15/2024 10:55 AM [facility] Potassium 4.6 3.5 - 5.5 mmol/L LAB CHEMISTRY METHOD 11/15/2024 10:55 AM [facility] Chloride 104 96 - 110 mmol/L LAB CHEMISTRY METHOD 11/15/2024 10:55 AM [facility] CO2 25 21 - 32 mmol/L LAB CHEMISTRY METHOD 11/15/2024 10:55 AM [facility] Anion Gap 6 3 - 11 LAB CHEMISTRY METHOD 11/15/2024 10:55 AM [facility] Glucose 101(H) 70 - 100 mg/dL LAB CHEMISTRY METHOD 11/15/2024 10:55 AM [facility] BUN 31(H) 5 - 25 mg/dL LAB CHEMISTRY METHOD 11/15/2024 10:55 AM [facility] Creatinine 0.88 0.50 - 1.10 mg/dL LAB CHEMISTRY METHOD 11/15/2024 10:55 AM [facility] LAB eGFR 63 >=60 mL/min/1. 73m2 LAB CHEMISTRY METHOD 11/15/2024 10:55 AM [facility] LAB Comment:Calculation based on the??Chronic Kidney Disease Epidemiology Collaboration (CKD-EPI) equation refit??without adjustment for race. BUN/Creatinine Ratio 35.2 LAB CHEMISTRY METHOD 11/15/2024 10:55 AM [facility] Calcium 8.3(L) 8.5 - 10.5 mg/dL LAB CHEMISTRY METHOD 11/15/2024 10:55 AM [facility] LAB Blood Venous blood specimen / Unknown Venipuncture / Unknown 11/15/2024 4:57 AM EST 11/15/2024 9:39 AM EST us Marine Ryder MD LAB BLOOD ORDERABLES Final Resu lt [facility] [address] [place] [address], documented in this encounter Visit Diagnoses Diagnosis Encounter for other general examination documented in this encounter Additional Health Concerns Infection Onset Date Last Indicated Resolved Time Gastrointestinal Rule-Out 11/15/2024 11/15/2024 2:43 PM EST VRE 01/25/2025 01/25/2025 documented as of this encounter Care Teams Data Keyer Relationship Specialty Start Date End Date Keli Dickinson MD [address] [place] [address] PCP - General Hospitalist Medicine 11/19/24 documented as of this encounter
--- OUTSIDE RECORDS SUMMARY | 2025-04-04 15:02 | XMS_ITS | Encounter Summary ---
Author Organization [facility] Address [address] [place] [address] Care Team Providers Care Beaver Trapper Name Role Phone Keli Dickinson MD Primary Care Provider [phone] Encounter Details Date Type Department Care Team (Late st Contact Info) Description 11/08/2024 Lab Requisition [facility] Lab [address] [place] [address] Marine Ryder MD [address] [place] [phone] Encounter for other general examination Social History [...] PM EST) WBC 8.1 4.8 - 10.8 K/[facility] LAB HEMETOLOGY METHOD 11/08/2024 3:05 PM EST [facility] LAB RBC 3.40(L) 3.80 - 4.80 M/mcL LAB HEMETOLOGY METHOD 11/08/2024 3:05 PM EST [facility] LAB Hemoglobin 8.5(L) 11.5 - 16.0 g/dL LAB HEMETOLOGY METHOD 11/08/2024 3:05 PM [facility] LAB Hematocrit 28.0(L) 35.0 - 47.0 % LAB HEMETOLOGY METHOD 11/08/2024 3:05 PM [facility] LAB MCV 82.8 79.0 - 98.0 FL LAB HEMETOLOGY METHOD 11/08/2024 3:05 PM [facility] LAB MCH 25.1(L) 27.0 - 32.0 pcg LAB HEMETOLOGY METHOD 11/08/2024 3:05 PM [facility] LAB MCHC 30.4(L) 32.0 - 37.0 g/dL LAB HEMETOLOGY METHOD 11/08/2024 3:05 PM [facility] LAB RDW 19.1(H) 11.0 - 15.0 % LAB HEMETOLOGY METHOD 11/08/2024 3:05 PM [facility] LAB Platelets 330 130 - 400 K/mcL LAB HEMETOLOGY METHOD 11/08/2024 3:05 PM [facility] LAB MPV 11.2(H) 7.0 - 11.0 FL LAB HEMETOLOGY METHOD 11/08/2024 3:05 PM [facility] LAB NRBC 0.0 <1.0 % LAB HEMETOLOGY METHOD 11/08/2024 3:05 PM [facility] LAB NRBC Absolute 0.00 <0.10 K/mcL LAB HEMETOLOGY METHOD 11/08/2024 3:05 PM [facility] LAB Neutrophils Relative 82.0 % LAB HEMETOLOGY METHOD 11/08/2024 3:05 PM [facility] LAB Lymphocytes Relative 9.0 % LAB HEMETOLOGY METHOD 11/08/2024 3:05 PM [facility] LAB Monocytes Relative 7.3 % LAB HEMETOLOGY METHOD 11/08/2024 3:05 PM [facility] LAB Eosinophils Relative 0.7 % LAB HEMETOLOGY METHOD 11/08/2024 3:05 PM [facility] LAB Basophils Relative 0.4 % LAB HEMETOLOGY METHOD 11/08/2024 3:05 PM [facility] LAB Immature Granulocytes Relative 0.6 % LAB HEMETOLOGY METHOD 11/08/2024 3:05 PM [facility] LAB Neutrophils Absolute 6.64 1.50 - 7.00 K/mcL LAB HEMETOLOGY METHOD 11/08/2024 3:05 PM [facility] LAB Lymphocytes Absolute 0.73(L) 1.00 - 5.00 K/mcL LAB HEMETOLOGY METHOD 11/08/2024 3:05 PM [facility] LAB Monocytes Absolute 0.59 0.20 - 1.00 K/mcL LAB HEMETOLOGY METHOD 11/08/2024 3:05 PM [facility] LAB Eosinophils Absolute 0.06 0.00 - 0.50 K/mcL LAB HEMETOLOGY METHOD 11/08/2024 3:05 PM [facility] LAB Basophils Absolute 0.03 0.00 - 0.20 K/mcL LAB HEMETOLOGY METHOD 11/08/2024 3:05 PM [facility] LAB Immature Granulocytes Absolute 0.05(H) 0.00 - 0.03 K/mcL LAB HEMETOLOGY METHOD 11/08/2024 3:05 PM [facility] LAB Blood Venous blood specimen / Unknown Venipuncture / Unknown 11/08/2024 1:11 PM EST 11/08/2024 2:48 PM EST us Marine Ryder MD LAB BLOOD ORDERABLES Final Resu lt [facility] LAB [address] [place] [address], documented in this encounter Visit Diagnoses Diagnosis Encounter for other general examination documented in this encounter Additional Health Concerns Infection Onset Date Last Indicated Resolved Time Gastrointestinal Rule-Out 11/15/2024 11/15/2024 2:43 PM EST VRE 01/25/2025 01/25/2025 documented as of this encounter Care Teams Beaver Trapper Relationship Specialty Start Date End Date Keli Dickinson MD [address] [place] [address] PCP - General Hospitalist Medicine 11/19/24 documented as of this encounter
--- OUTSIDE RECORDS SUMMARY | 2025-04-04 15:02 | XMS_ITS | Encounter Summary ---
Author Organization [facility] Address [address] [place] [address] Care Team Providers Care General Accounting Manager Name Role Phone Keli Dickinson MD Primary Care Provider [phone] Encounter Details Date Type Department Care Team (Late st Contact Info) Description 11/07/[address] [facility] Lab [address] [facility] [email or web address] [address] Marine Ryder MD [address] [place] [address] Encounter for other general examination Social History [...] LAB CHEMISTRY METHOD 11/07/2024 11:24 AM EST [facility] LAB Potassium 4.8 3.5 - 5.5 mmol/L LAB CHEMISTRY METHOD 11/07/2024 11:24 AM EST [facility] LAB Chloride 97 96 - 110 mmol/L LAB CHEMISTRY METHOD 11/07/2024 11:24 AM EST [facility] LAB CO2 29 21 - 32 mmol/L LAB CHEMISTRY METHOD 11/07/2024 11:24 AM EST [facility] LAB Anion Gap 7 3 - 11 LAB CHEMISTRY METHOD 11/07/2024 11:24 AM [facility] LAB Glucose 199(H) 70 - 100 mg/dL LAB CHEMISTRY METHOD 11/07/2024 11:24 AM [facility] LAB BUN 22 5 - 25 mg/dL LAB CHEMISTRY METHOD 11/07/2024 11:24 AM [facility] LAB Creatinine 0.73 0.50 - 1.10 mg/dL LAB CHEMISTRY METHOD 11/07/2024 11:24 AM [facility] LAB eGFR 79 >=60 mL/min/1. 73m2 LAB CHEMISTRY METHOD 11/07/2024 11:24 AM [facility] LAB Comment:Calculation based on the??Chronic Kidney Disease Epidemiology Collaboration (CKD-EPI) equation refit??without adjustment for race. BUN/Creatinine Ratio 30.1 LAB CHEMISTRY METHOD 11/07/2024 11:24 AM [facility] LAB Calcium 8.2(L) 8.5 - 10.5 mg/dL LAB CHEMISTRY METHOD 11/07/2024 11:24 AM [facility] LAB Blood Venous blood specimen / Unknown Venipuncture / Unknown 11/07/2024 5:40 AM EST 11/07/2024 9:22 AM EST us Marine Ryder MD LAB BLOOD ORDERABLES Final Resu lt [facility] LAB [address] [place] [address], documented in this encounter Visit Diagnoses Diagnosis Encounter for other general examination documented in this encounter Additional Health Concerns Infection Onset Date 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
--- OUTSIDE RECORDS SUMMARY | 2025-04-04 15:02 | XMS_ITS | Encounter Summary ---
Author Organization [facility] Address [address] [place] [address] Care Team Providers Care Reroller Hand Name Role Phone Keli Dickinson MD Primary Care Provider [phone] Encounter Details Date Type Department Care Team (Latest Contact Info) Description 11/19/2024 Lab Requisition [facility] Lab [address] [place] [address] Keli Dickinson MD [address] [place] [address] Type 2 diabetes mellitus without [...] EST Type 2 diabetes mellitus without complications ([facility]/HCC) Anemia, unspecified HEMOGLOBIN A1C Routine 11/19/2024 7:20 AM EST Type 2 diabetes mellitus without complications (CMS/HCC) Anemia, unspecified COMPREHENSIVE METABOLIC PANEL Routine 11/19/2024 7:20 AM EST Type 2 diabetes mellitus without complications ([facility]) Anemia, unspecified documented in this encounter Results * (ABNORMAL) Hemoglobin A1c (11/19/2024 7:20 AM EST) Hemoglobin A1C 6.8(H) <6.5 % LAB CHEMISTRY METHOD 11/21/2024 10:[address] [facility] LAB Mean Bld Glu Estim. 148 mg/dL LAB CHEMISTRY METHOD 11/21/2024 10:21 AM [facility] LAB Blood Venous blood specimen / Unknown Venipuncture / Unknown 11/19/2024 7:20 AM EST 11/19/2024 11:06 AM EST Keli Dickinson MD LAB BLOOD ORDERABLES Final Resul t [facility] [address] [place] [address], [place] [phone] * (ABNORMAL) Comprehensive metabolic panel (11/19/2024 7:20 AM EST) Sodium 132(L) 133 - 145 mmol/L LAB CHEMISTRY METHOD 11/19/2024 11:58 AM [facility] LAB Potassium 5.2 3.5 - 5.5 mmol/L LAB CHEMISTRY METHOD 11/19/2024 11:58 AM [facility] LAB Chloride 101 96 - 110 mmol/L LAB CHEMISTRY METHOD 11/19/2024 11:58 AM [facility] LAB CO2 26 21 - 32 mmol/L LAB CHEMISTRY METHOD 11/19/2024 11:58 AM [facility] LAB Anion Gap 5 3 - 11 LAB CHEMISTRY METHOD 11/19/2024 11:58 AM [facility] LAB Glucose 99 70 - 100 mg/dL LAB CHEMISTRY METHOD 11/19/2024 11:58 AM [facility] LAB BUN 26(H) 5 - 25 mg/dL LAB CHEMISTRY METHOD 11/19/2024 11:58 AM [facility] LAB Creatinine 0.85 0.50 - 1.10 mg/dL LAB CHEMISTRY METHOD 11/19/2024 11:58 AM [facility] LAB eGFR 66 >=60 mL/min/1. 73m2 LAB CHEMISTRY METHOD 11/19/2024 11:58 AM [facility] LAB Comment:Calculation based on the??Chronic Kidney Disease Epidemiology Collaboration (CKD-EPI) equation refit??without adjustment for race. BUN/Creatinine Ratio 30.6 LAB CHEMISTRY METHOD 11/19/2024 11:58 AM [facility] LAB Calcium 8.2(L) 8.5 - 10.5 mg/dL LAB CHEMISTRY METHOD 11/19/2024 11:58 AM [facility] LAB AST (SGOT) 15 10 - 42 unit/L LAB CHEMISTRY METHOD 11/19/2024 11:58 AM [facility] LAB ALT (SGPT) 13 10 - 60 unit/L LAB CHEMISTRY METHOD 11/19/2024 11:58 AM [facility] LAB Alkaline Phosphatase 105 42 - 121 unit/L LAB CHEMISTRY METHOD 11/19/2024 11:58 AM [facility] LAB Total Protein 5.3(L) 6.0 - 8.0 g/dL LAB CHEMISTRY METHOD 11/19/2024 11:58 AM [facility] LAB Albumin 2.2(L) 3.2 - 5.0 g/dL LAB CHEMISTRY METHOD 11/19/2024 11:58 AM [facility] LAB Total Bilirubin 0.6 0.0 - 1.4 mg/dL LAB CHEMISTRY METHOD 11/19/2024 11:58 AM [facility] LAB Blood Venous blood specimen / Unknown Venipuncture / Unknown 11/19/2024 7:20 AM EST 11/19/2024 11:06 AM EST us Keli Dickinson MD LAB BLOOD ORDERABLES Final Resul t [facility] [address] [place] [address], * (ABNORMAL) Complete blood count (11/19/2024 7:20 AM EST) WBC 6.9 4.8 - 10.8 K/mcL LAB HEMETOLOGY METHOD 11/19/2024 11:28 AM [facility] LAB RBC 3.10(L) 3.80 - 4.80 M/mcL LAB HEMETOLOGY METHOD 11/19/2024 11:28 AM [facility] LAB Hemoglobin 7.9(L) 11.5 - 16.0 g/dL LAB HEMETOLOGY METHOD 11/19/2024 11:28 AM [facility] LAB Hematocrit 26.0(L) 35.0 - 47.0 % LAB HEMETOLOGY METHOD 11/19/2024 11:28 AM [facility] LAB MCV 84.7 79.0 - 98.0 FL LAB HEMETOLOGY METHOD 11/19/2024 11:28 AM [facility] LAB MCH 25.7(L) 27.0 - 32.0 pcg LAB HEMETOLOGY METHOD 11/19/2024 11:28 AM [facility] LAB MCHC 30.4(L) 32.0 - 37.0 g/dL LAB HEMETOLOGY METHOD 11/19/2024 11:28 AM [facility] LAB RDW 19.5(H) 11.0 - 15.0 % LAB HEMETOLOGY METHOD 11/19/2024 11:28 AM [facility] LAB Platelets 415(H) 130 - 400 K/mcL LAB HEMETOLOGY METHOD 11/19/2024 11:28 AM [facility] LAB MPV 10.3 7.0 - 11.0 FL LAB HEMETOLOGY METHOD 11/19/2024 11:28 AM [facility] LAB NRBC 0.0 <1.0 % LAB HEMETOLOGY METHOD 11/19/2024 11:28 AM [facility] LAB NRBC Absolute 0.00 <0.10 K/mcL LAB HEMETOLOGY METHOD 11/19/2024 11:28 AM EST [facility] Blood Venous blood specimen / Unknown Venipuncture / Unknown 11/19/2024 7:20 AM EST 11/19/2024 11:06 AM EST us Keli Dickinson MD LAB BLOOD ORDERABLES Final Resul t [facility] LAB [address] [place] [address], documented in this encounter Visit Diagnoses Diagnosis Type 2 diabetes mellitus without complications (CMS/HCC V24, CMS/HCC V28) Anemia, unspecified documented in this encounter 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
== END 2025-04-04 15:13 | disposition home or self-care (01) ==
LOC: HO.ENCR 13:47
PROVIDERS: PCP Internal Medicine; Visit Provider Physician Assistant Medical
DX: E11.65 Type 2 diabetes mellitus with hyperglycemia (principal); Z79.4 Long term (current) use of insulin

== ENCOUNTER 2025-04-17 10:07 | Outpatient (AMB) | payer MEDICARE, OTHER, SELFPAY ==
--- NOTE | 2025-04-17 10:13 | MHC.OFFVIS ---
Vital Signs 04/17/25 10:14 Height 5 ft 4 in Weight 174 lb 2.643 oz BMI 29.9 BP 124/76 Blood Pressure Location Lt brachial Position Sitting Pulse 68 Intake Visit Reasons: 1 yr w-ekg Intake Note: 1 year follow-up had ekg in ED 2 weeks ago hearts doing good Sheet Metal Insulator Required: No Senior Animal Trainer: Senior Animal Trainer Present Accompanied by: Grand Child Allergies adhesive tape [Adhesive Tape] Allergy (Unknown, Verified 04/04/25 14:06) SKIN REDNESS Medication List - Last Reconciled 04/17/25 by Danilo Avila MD acetaminophen (Tylenol) 650 mg PO Q4-6H PRN acetone (urine) test (Ketone Urine Test strips) As directed blood-glucose sensor (EndosenseStyle Anna 3 Sensor device) As directed blood-glucose,photographic equipment assembler,cont (FreeStyle Anna 3 [place]) As directed calcium carbonate 500 mg PO BID cyanocobalamin (vitamin B-12) 100 mcg PO DAILY dextrose (TRUEplus Glucose) 15 grams (32 mL) PO Q15M PRN hydralazine 10 mg PO BEDTIME PRN insulin aspart U-100 (Novolog FlexPen U-100 Insulin aspart) See Protocol sliding scale doses subcut TIDWM insulin glargine (Lantus Solostar U-100 Insulin) 15 units subcut BEDTIME levothyroxine 112 mcg PO DAILY@0600 nystatin (Nyamyc) 1 appl See Protocol topical TID PRN omeprazole 20 mg PO DAILY@0630 pravastatin 80 mg PO BEDTIME zinc sulfate 220 mg PO DAILY HPI Comments Details: Lisa comes for follow-up for her cardiomyopathy. She had recently multiple hospital admission with diabetic complication with elevated sugars. She had at 1 time heart failure decompensation was prescribed Lasix for 7 days. Since then she has been doing well. She has not had much heart failure symptoms. Denied any leg edema, orthopnea, PND, worsening shortness of breath. She denies any prolonged palpitation irregular heartbeat. Echocardiogram done in early March showed moderate to severe LV systolic dysfunction with LVEF of 34%. 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/ Review of Systems Const Denies chills, Denies fatigue, Denies fever(s), Denies frequent falls, Denies weakness, Denies weight gain and Denies weight loss ENT Denies dizziness Card Denies chest pain, Denies leg edema, Denies lightheadedness, Denies palpitations, Denies dyspnea, Denies dyspnea on exertion, Denies orthopnea and Denies other (loss of consciousness) Resp Denies cough, Denies dyspnea and Denies dyspnea on exertion GI Denies hematochezia and Denies change in stool character Musc Denies abnormal gait, Denies muscle weakness, Denies numbness, Denies radiating pain into limb and Denies tingling Neuro Denies abnormal gait, Denies dizziness, Denies frequent falls, Denies numbness, Denies tingling and Denies weakness Endo Denies fatigue and Denies palpitations Physical Exam Vital Signs: Last Vital Signs Pulse 68 04/17/25 10:14 BP 124/76 04/17/25 10:14 BMI result Body Mass Index 29.9 Const General: cooperative, comfortable, alert and awake Nutritional Appearance: overweight and other (Frail elderly woman) Orientation/consciousness: patient oriented x3 Limitations: ambulation with cane Neck Neck: Yes trachea midline, Yes supple and Yes no JVD Resp Effort & Inspection: normal respiratory effort Cardio Jugular venous distension: no JVD Palpation: normal PMI Rate: regular rate Rhythm: regular rhythm Heart sounds: S1 normal heart sound present, S2 normal heart sound present, no click, no gallops and Murmur heart sound present systolic early Neuro General: patient oriented x3 and no focal motor deficits Extrem General: Yes no clubbing, cyanosis or edema Assessment & Plan Assessment & Plan (1) Cardiomyopathy: Code(s): I42.9 - Cardiomyopathy, unspecified Category: Medical Plan: Cardiomyopathy without any signs or symptoms of congestive heart failure. Limited treatment options due to orthostatic hypotension low blood pressure. Can not use much neurohormonal modulation. Clinically appears to be euvolemic. I have sent a prescription for PRN Lasix use for development of fluid overload symptoms. These were discussed with her. No otherwise change in therapy at this point in time. Management will be conservative given her multiple medical issues. Will follow up in the clinic in 1 year's time, sooner p.r.n.. Thank you for allowing me to partake in her care Medications: New furosemide (Lasix) 20 mg PO DAILY PRN 30 tabs 2RF edema Coding Level of Care Code Est Pt Level 4 (93114) Complex EM visit Add On G2211 Diagnoses Cardiomyopathy I42.9
[2025-04-17 10:14] VITALS: BP 124/76; PULSE 68; BMI 29.9
--- OUTSIDE RECORDS SUMMARY | 2025-04-17 11:03 | XMS_ITS | Encounter Summary ---
Author Organization [facility] Address [address] [place] [address] Care Team Providers Care Automobile Radio Repairer Name Role Phone Keli Dickinson MD Primary Care Provider [phone] Encounter Details Date Type Department Care Team (Late st Contact Info) Description 01/28/2025 Lab Requisition [facility] [address] [place] [address] Keli Dickinson MD [address] [place] [address] Anemia, unspecified Social History Tobacco [...] LAB COAGULATION METHOD 01/28/2025 4:10 PM EDT [facility]) [facility] Blood Venous blood specimen / Unknown Venipuncture / Unknown 01/28/2025 3:28 PM EDT 01/28/2025 3:54 PM EDT Narrative [facility] - 01/28/2025 4:10 PM EDT D-Dimer <230 ng/mL (D-Dimer units) is the threshold for exclusion of DVT/PE. D-Dimer may be elevated in: Critically ill, severely infected, trauma patients, DIC, acute CVA, acute OH, unstable angina, AF, old age, , and smoking. D-Dimer may be decreased with: Initiation of heparin therapy and oral anticoagulants. us Keli Dickinson MD LAB BLOOD ORDERABLES Final Resul t [facility] [address] [place] [address], * (ABNORMAL) Comprehensive metabolic panel (01/28/2025 3:28 PM EDT) Sodium 135 133 - 145 mmol/L [facility] Potassium 4.2 3.5 - 5.5 mmol/L LAB CHEMISTRY METHOD 01/28/2025 4:[address] [facility] Chloride 101 96 - 110 mmol/L LAB CHEMISTRY METHOD 01/28/2025 4:[address] [facility] CO2 27 21 - 32 mmol/L LAB CHEMISTRY METHOD 01/28/2025 4:[address] [facility] Anion Gap 7 3 - 11 LAB CHEMISTRY METHOD 01/28/2025 4:[address] [facility] Glucose 338(H) 70 - 100 mg/dL LAB CHEMISTRY METHOD 01/28/2025 4:[address] [facility] BUN 15 5 - 25 mg/dL LAB CHEMISTRY METHOD 01/28/2025 4:[address] [facility] Creatinine 0.87 0.50 - 1.10 mg/dL LAB CHEMISTRY METHOD 01/28/2025 4:30 PM EDT [facility] eGFR 64 >=60 mL/min/1. 73m2 [...] PM T [facility] AST (SGOT) 14 10 - 42 unit/L LAB CHEMISTRY METHOD 01/28/2025 4:[address] [facility] ALT (SGPT) 13 10 - 60 unit/L LAB CHEMISTRY METHOD 01/28/2025 4:[address] [facility] Alkaline Phosphatase 95 42 - 121 unit/L LAB CHEMISTRY METHOD 01/28/2025 4:30 PM EDT [facility] Total Protein 5.7(L) 6.0 - 8.0 g/dL LAB CHEMISTRY METHOD 01/28/2025 4:[address] [facility] Albumin 2.8(L) 3.2 - 5.0 g/dL LAB CHEMISTRY METHOD 01/28/2025 4:[address] [facility] Total Bilirubin 0.4 0.0 - 1.4 mg/dL LAB CHEMISTRY METHOD 01/28/2025 4:[address] [facility] Blood Venous blood specimen / Unknown Venipuncture / Unknown 01/28/2025 3:28 PM EDT 01/28/2025 3:54 PM EDT us Keli Dickinson MD LAB BLOOD ORDERABLES Final Resul t [facility] [address] [place] [address], * (ABNORMAL) Complete blood count (01/28/2025 3:28 PM EDT) [facility] WBC 7.9 4.8 - 10.8 K/mcL LAB HEMETOLOGY METHOD 01/28/2025 4:[address] [facility] RBC 4.20 3.80 - 4.80 M/mcL LAB HEMETOLOGY METHOD 01/28/2025 4:[address] [facility] Hemoglobin 10.5(L) 11.5 - 16.0 g/dL LAB HEMETOLOGY METHOD 01/28/2025 4:[address] [facility] Hematocrit 33.2(L) 35.0 - 47.0 % LAB HEMETOLOGY METHOD 01/28/2025 4:[address] [facility] MCV 79.6 79.0 - 98.0 FL LAB HEMETOLOGY METHOD 01/28/2025 4:[address] [facility] MCH 25.2(L) 27.0 - 32.0 pcg LAB HEMETOLOGY METHOD 01/28/2025 4:[address] [facility] MCHC 31.6(L) 32.0 - 37.0 g/dL LAB HEMETOLOGY METHOD 01/28/2025 4:[address] [facility] RDW 15.2(H) 11.0 - 15.0 % LAB HEMETOLOGY METHOD 01/28/2025 4:[address] [facility] Platelets 233 130 - 400 K/mcL LAB HEMETOLOGY METHOD 01/28/2025 4:[address] [facility] MPV 11.1(H) 7.0 - 11.0 FL LAB HEMETOLOGY METHOD 01/28/2025 4:[address] [facility] NRBC 0.0 <1.0 % LAB HEMETOLOGY METHOD 01/28/2025 4:06 PM EDT [facility] NRBC Absolute 0.00 <0.10 K/mcL LAB HEMETOLOGY METHOD 01/28/2025 4:06 PM EDT [facility] Blood Venous blood specimen / Unknown Venipuncture / Unknown 01/28/2025 3:28 PM EDT 01/28/2025 3:54 PM EDT us Keli Dickinson MD LAB BLOOD ORDERABLES Final Resul t [facility] [address] [place] [address], documented in this encounter Visit Diagnoses Diagnosis Anemia, unspecified documented in this encounter Additional Health Concerns 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
== END 2025-04-17 10:39 | disposition home or self-care (01) ==
LOC: HO.HCS 10:10
PROVIDERS: PCP Internal Medicine; Visit Provider Internal Medicine Cardiovascular Disease
DX: I42.9 Cardiomyopathy, unspecified (principal)
CPT/HCPCS: 99214; G2211

== ENCOUNTER → 2025-04-17 10:07 | Outpatient (BNVA) | payer MEDICARE, OTHER, SELFPAY | PROVIDERS: PCP Internal Medicine; Visit Provider Internal Medicine Cardiovascular Disease | DX: I42.9 Cardiomyopathy, unspecified (principal) | CPT/HCPCS: 99212 ==

== ENCOUNTER 2025-04-18 12:51 | Outpatient (AMB) | payer MEDICARE, OTHER, SELFPAY ==
--- NOTE | 2025-04-18 13:03 | A.OFFVIS_ITS ---
Vital Signs 04/18/25 13:06 Height 5 ft 4 in Weight 178 lb 9.191 oz BMI 30.6 BP 124/68 Blood Pressure Location Lt brachial Position Sitting Pulse 72 Pulse Source Pulse Oximeter Pulse Oximetry (%) 97 Oxygen Delivery Method Room Air Intake Visit Reasons: T2DM Intake Note: New patient present today for Diabetes. Patient is receiving Anna 3 supplies: Unsure the company name, granddaughter will notify office. Last Diabetic Eye exam: Due, 2 years ago Last Podiatry Visit: approx 6 months, Dr. Raphael Farley Random Glucose: 276 mg/dl HgA1C: 9.3% 03/15/2025 Reservoir Engineer Required: No Accompanied by: Grandchild Allergies adhesive tape [Adhesive Tape] Allergy (Unknown, Verified 04/18/25 13:07) SKIN REDNESS Medication List - Last Reconciled 04/18/25 by DAYNA Hanson acetaminophen (Tylenol) 650 mg PO Q4-6H PRN acetone (urine) test (Ketone Urine Test strips) As directed blood-glucose sensor ([employer] Anna 3 Sensor device) As directed blood-glucose,servicenow administrator developer,cont (FreeStyle Anna 3 [place]) As directed calcium carbonate 500 mg PO BID cyanocobalamin (vitamin B-12) 100 mcg PO DAILY dextrose (TRUEplus Glucose) 15 grams (32 mL) PO Q15M PRN furosemide (Lasix) 20 mg PO DAILY PRN hydralazine 10 mg PO BEDTIME PRN insulin aspart U-100 (Novolog FlexPen U-100 Insulin aspart) See Protocol sliding scale doses subcut TIDWM insulin degludec (Tresiba FlexTouch U-200 insulin) 15 units (0.075 mL) subcut BEDTIME levothyroxine 112 mcg PO DAILY@0600 nystatin (Nyamyc) 1 appl See Protocol topical TID PRN omeprazole 20 mg PO DAILY@0630 pravastatin 80 mg PO BEDTIME zinc sulfate 220 mg PO DAILY HPI Comments Details: This is an 89-year-old female with a past medical history of CHF, diabetes mellitus, orthostatic hypotension, sinus bradycardia, left bundle branch block and DKA presenting for diabetic management. She is here with her granddaughter, Amparo. She was diagnosed with diabetes 39 years ago. Patient told me at 1 point she saw an recreational specialist who said she had type 1 diabetes, but this was 5 years ago. She had C-peptide, ALEX antibody and islet cell antibody drawn since her last visit, and her blood work is consistent with type 1 diabetes. Patient had recurrent admissions for DKA over the past 5 months but no ER visits since our visit 2 weeks ago. Hemoglobin a1c 9.3% 03/15/2025. Reviewed CGM data April 05 to April 18 CGM active 97% Average glucose 179 GMI 7.6% Glucose variability 35.5% Very high 14% High 31% Target range 53% Low 2% She has a pattern of hypoglycemia at night and in the middle of the night. Current medication regimen: NovoLog per sliding scale, Lantus 15 units at bedtime. Novolog sliding scale for breakfast and lunch: 100-149 9 units 150-199 11 units 200-249 13 units 250-299 15 units 300-349 17 units 350 and over 19 units and call doctor Novolog sliding scale for dinner: 100-149 7 units 150-199 9 units 200-249 11 units 250-299 13 units 300-349 15 units 350 and over 17 units and call doctor Past medication: Metformin caused diarrhea. Compliance issues: None Diet: Breakfast-cottage cheese, eggs, fruits (oranges and berries), coffee with coffee mate low sugar Lunch-sandwiches, soup, drinks diet gingerale Dinner- protein, potato, vegetable or salad and diet soda or milk Snacks/desserts: cheese and crackers No alcohol or smoking Hypoglycemia symptoms: Feels hungry and treated symptoms with hersheys kisses Hyperglycemia symptoms: slurred speech Microvascular complications: neuropathy in feet (followed by podiatry), nephropathy Macrovascular complications: CAD. TIA Hyperlipidemia is treated with pravastatin 80 mg daily. ROS: Constitutional: No unexplained weight loss, fever, chills, fatigue or night sweats. Eyes: No blurry vision Respiratory: No shortness of breath Cardiovascular: No chest pain Gastrointestinal: No nausea, vomiting or abdominal pain Neurologic: No headache, dizziness, syncope, + intermittent tingling in her toes. Endocrine: No cold or heat intolerance. No polyuria or polydipsia. Physical exam: Constitutional: Alert, in no distress. Neck: Supple, Full range of motion. No lymphadenopathy. No palpable thyroid masses. Respiratory: Clear to auscultation. Cardiovascular: S1 S2 regular. No murmurs. 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 Procedures Glucose Monitoring Details Details: see HPI 43096 - Glucose monitoring, continuous-physician I&R Procedure code (CPT) selection complete Results Reviewed Results Reviewed: Laboratory Tests 04/04/25 15:44 C-Peptide 0.85 Islet Cell Ab Screen NEGATIVE ALEX Antibody >250 H Laboratory Tests 02/04/25 02/09/25 03/15/25 15:00 09:00 05:33 Plt Count Creatinine Estimated GFR Hemoglobin A1c % 9.3 H AST B-Natriuretic Peptide Triglycerides 138 Cholesterol 123 LDL Cholesterol, Calc 61 HDL Cholesterol 35 L TSH 2.08 Urine Protein 03/23/25 03/24/25 03/25/25 07:29 07:03 12:23 Plt Count Creatinine 0.80 0.78 1.10 Estimated GFR > 60 > 60 47 Hemoglobin A1c % AST 25 B-Natriuretic Peptide Triglycerides Cholesterol LDL Cholesterol, Calc HDL Cholesterol TSH Urine Protein 03/25/25 03/29/25 03/29/25 12:36 17:45 23:30 Plt Count Creatinine 1.16 0.98 Estimated GFR 44 53 Hemoglobin A1c % AST 25 B-Natriuretic Peptide 406 H Triglycerides Cholesterol LDL Cholesterol, Calc HDL Cholesterol TSH Urine Protein Negative 03/30/25 04:25 Plt Count 284 Creatinine 0.74 Estimated GFR > 60 Hemoglobin A1c % AST B-Natriuretic Peptide Triglycerides Cholesterol LDL Cholesterol, Calc HDL Cholesterol TSH Urine Protein Assessment & Plan Assessment & Plan (1) Diabetic ketoacidosis: Code(s): E11.10 - Type 2 diabetes mellitus with ketoacidosis without coma Category: Medical (2) Type I diabetes mellitus: Code(s): E10.9 - Type 1 diabetes mellitus without complications Category: Medical (3) Diabetes mellitus with hyperglycemia: Code(s): E11.65 - Type 2 diabetes mellitus with hyperglycemia Category: Medical Plan In summary this is an 89-year-old female with type 1 diabetes with interval improvement in glycemic control following recent admissions for diabetic ketoacidosis with micro and macrovascular complications. Given patient's age and comorbidities,a reasonable hemoglobin A1c target is 8-8.5%. Discussed pathophysiology of Diabetes Mellitus with the patient in detail.? 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 She was referred to the dietitian. I will also refer her to the band scroll saw operator. She is interested in hearing about insulin pumps more though she is not sure she wants to proceed and may not be an ideal candidate for this. Written instructions provided for treatment of hypoglycemia. She picked up the prescription for ketone urine strips and has written instructions.. Given type 1 diabetes and overnight hypoglycemia it is medically necessary to switch the patient to Tresiba. Switch Lantus 15 units to Tresiba 15 units at bedtime. Novolog sliding scale for breakfast and lunch: 100-149 9 units 150-199 11 units 200-249 13 units 250-299 15 units 300-349 17 units 350 and over 19 units and call doctor Decrease NovoLog sliding scale for dinner due to overnight hypoglycemia. Novolog sliding scale for dinner: 100-149 5 units 150-199 7 units 200-249 9 units 250-299 11 units 300-349 13 units 350 and over 15 units and call doctor If you continue to have low blood sugars over night after making these changes, please call the office. Follow up in 4 weeks for type 2 diabetes. Orders: Orders AMB Glucose Monitoring Today E11.9 - Type 2 diabetes mellitus without complications Referrals Diabetes Education Referral E10.9 - Type 1 diabetes mellitus without complications Medications: New insulin degludec (Tresiba FlexTouch U-200 insulin) Replaces Lantus insulin. 15 units (0.075 mL) subcut BEDTIME 9 mL 5RF Patient Instructions: Current medication regimen: Switch Lantus 15 units to Tresiba 15 units at bedtime. NovoLog per sliding scale Novolog sliding scale for breakfast and lunch: 100-149 9 units 150-199 11 units 200-249 13 units 250-299 15 units 300-349 17 units 350 and over 19 units and call doctor Novolog sliding scale for dinner: 100-149 5 units 150-199 7 units 200-249 9 units 250-299 11 units 300-349 13 units 350 and over 15 units and call doctor If you experience low blood sugar, treat this by eating a chewable fruit candy like skittles or jelly beans (about 8 pieces), 4 ounces (1/2 cup) of fruit juice (not diet), 1 tablespoon of honey or 4 glucose tablets or 1 pack of glucose gel. If your blood sugar is under 55, take double the amount of one of the above. Recheck your blood sugar in 15 minutes. Diabetic ketoacidosis (DKA) A serious condition that can lead to diabetic coma (passing out for a long time) or even When your cells don't get the glucose they need for energy, your body begins to burn fat for energy, which produces ketones. Ketones are chemicals that the body creates when it breaks down fat to use for energy. The body does this when it doesn?t have enough insulin to use glucose, the body?s normal source of energy. When ketones build up in the blood, they make it more acidic. They are a warning sign that your diabetes is out of control or that you are getting sick. Symptoms of Diabetic Ketoacidosis (DKA) DKA usually develops slowly. But when vomiting occurs, this life-threatening condition can develop in a few hours. Early symptoms include the following: ? Thirst or a very dry mouth ? Frequent urination ? High blood glucose (blood sugar) levels ? High levels of ketones in the urine Then, other symptoms appear: ? Constantly feeling tired ? Dry or flushed skin ? Nausea, vomiting, or abdominal pain ? (Vomiting can be caused by many illnesses, not just ketoacidosis. If vomiting continues for more than 2 hours, contact your health care provider.) ? Difficulty breathing ? Fruity odor on breath ? A hard time paying attention, or confusion When should you test for ketones? It is advisable to check for ketones under the following conditions when: Your blood glucose is higher than 250mg/dl. Feeling nauseated, throwing up, or have pains in your abdominal region. Have a cold or flu. Have general body fatigue. Feel thirsty or have a very dry mouth. Have flushed skin. Have a fruity breath or a hard time breathing. You feel confused or in fog. Negative, trace or light ketones: hydrate, bring sugars down with insulin You should go to the ER if you have moderate or large ketones. Coding Level of Care Code Est Pt Level 4 (80925) Diagnoses Diabetic ketoacidosis E11.10 Type I diabetes mellitus E10.9 Diabetes mellitus with hyperglycemia E11.65 CPT Codes Details - CPT: 08382 - Glucose monitoring, continuous-physician I&R ([id number])
[2025-04-18 13:06] VITALS: BP 124/68; PULSE 72; O2SAT 97; BMI 30.6
[2025-04-18 13:20] LABS: Glucose, Whole Blood 276 mg/dL (60-115)
--- OUTSIDE RECORDS SUMMARY | 2025-04-18 14:10 | XMS_ITS | Encounter Summary ---
Author Organization [facility] Address [address] [place] [address] Care Team Providers Care Baling Machine Operator Name Role Phone Keli Dickinson MD Primary Care Provider [phone] Encounter Details Date Type Department Care Team (Late st Contact Info) Description 01/28/2025 Lab Requisition [facility] Lab [address] [place] [address] Keli Dickinson MD [address] [place] [address] Anemia, unspecified Social History Tobacco [...] LAB COAGULATION METHOD 01/28/2025 4:10 PM EDT [facility] Blood Venous blood specimen / Unknown Venipuncture / Unknown 01/28/2025 3:28 PM EDT 01/28/2025 3:54 PM EDT Narrative [facility] - 01/28/2025 4:10 PM EDT [...] MD LAB BLOOD ORDERABLES Final Resul t [facility] [address] [place] [address], * (ABNORMAL) Comprehensive metabolic panel (01/28/2025 3:28 PM EDT) Sodium 135 133 - 145 mmol/L LAB [facility]STR[facility] Potassium 4.2 3.5 - 5.5 mmol/L LAB CHEMISTRY METHOD 01/28/2025 4:30 PM [facility] Chloride 101 96 - 110 mmol/L LAB CHEMISTRY METHOD 01/28/2025 4:30 PM [facility] CO2 27 21 - 32 mmol/L LAB CHEMISTRY METHOD 01/28/2025 4:30 PM [facility] Anion Gap 7 3 - 11 LAB CHEMISTRY METHOD 01/28/2025 4:30 PM [facility] Glucose 338(H) 70 - 100 mg/dL LAB CHEMISTRY METHOD 01/28/2025 4:30 PM [facility] BUN 15 5 - 25 mg/dL LAB CHEMISTRY METHOD 01/28/2025 4:30 PM [facility] Creatinine 0.87 0.50 - 1.10 mg/dL LAB CHEMISTRY METHOD 01/28/2025 4:30 PM EDT [facility] eGFR 64 >=60 mL/min/1. 73m2 LAB CHEMISTRY METHOD 01/28/2025 4:30 PM EDT [facility] Comment:Calculation based on the??Chronic Kidney Disease Epidemiology Collaboration (CKD-EPI) equation refit??without adjustment for race. BUN/Creatinine Ratio 17.2 LAB CHEMISTRY METHOD 01/28/2025 4:30 PM EDT [facility] Calcium 8.7 8.5 - 10.5 mg/dL LAB CHEMISTRY METHOD 01/28/2025 4:30 PM T [facility] AST (SGOT) 14 10 - 42 unit/L LAB CHEMISTRY METHOD 01/28/2025 4:30 PM [facility] ALT (SGPT) 13 10 - 60 unit/L LAB CHEMISTRY METHOD 01/28/2025 4:30 PM [facility] Alkaline Phosphatase 95 42 - 121 unit/L LAB CHEMISTRY METHOD 01/28/2025 4:30 PM EDT [facility] Total Protein 5.7(L) 6.0 - 8.0 g/dL LAB CHEMISTRY METHOD 01/28/2025 4:30 PM [facility] Albumin 2.8(L) 3.2 - 5.0 g/dL LAB CHEMISTRY METHOD 01/28/2025 4:30 PM [facility] Total Bilirubin 0.4 0.0 - 1.4 mg/dL LAB CHEMISTRY METHOD 01/28/2025 4:30 PM [facility] Blood Venous blood specimen / Unknown Venipuncture / Unknown 01/28/2025 3:28 PM EDT 01/28/2025 3:54 PM EDT us Keli Dickinson MD LAB BLOOD ORDERABLES Final Resul t [facility] [address] [place] [address], * (ABNORMAL) Complete blood count (01/28/2025 3:28 PM EDT) [facility] WBC 7.9 4.8 - 10.8 K/mcL LAB HEMETOLOGY METHOD 01/28/2025 4:06 PM [facility] RBC 4.20 3.80 - 4.80 M/mcL LAB HEMETOLOGY METHOD 01/28/2025 4:06 PM [facility] Hemoglobin 10.5(L) 11.5 - 16.0 g/dL LAB HEMETOLOGY METHOD 01/28/2025 4:06 PM [facility] Hematocrit 33.2(L) 35.0 - 47.0 % LAB HEMETOLOGY METHOD 01/28/2025 4:06 PM [facility] MCV 79.6 79.0 - 98.0 FL LAB HEMETOLOGY METHOD 01/28/2025 4:06 PM [facility] MCH 25.2(L) 27.0 - 32.0 pcg LAB HEMETOLOGY METHOD 01/28/2025 4:06 PM [facility] MCHC 31.6(L) 32.0 - 37.0 g/dL LAB HEMETOLOGY METHOD 01/28/2025 4:06 PM [facility] RDW 15.2(H) 11.0 - 15.0 % LAB HEMETOLOGY METHOD 01/28/2025 4:06 PM [facility] Platelets 233 130 - 400 K/mcL LAB HEMETOLOGY METHOD 01/28/2025 4:06 PM [facility] MPV 11.1(H) 7.0 - 11.0 FL LAB HEMETOLOGY METHOD 01/28/2025 4:06 PM [facility] NRBC 0.0 <1.0 % LAB HEMETOLOGY METHOD 01/28/2025 4:06 PM EDT [facility] NRBC Absolute 0.00 <0.10 K/mcL LAB HEMETOLOGY METHOD 01/28/2025 4:06 PM EDT [facility] Blood Venous blood specimen / Unknown Venipuncture / Unknown 01/28/2025 3:28 PM EDT 01/28/2025 3:54 PM EDT us Keli Dickinson MD LAB BLOOD ORDERABLES Final Resul t [facility] [address] [place] [address], documented in this encounter Visit Diagnoses Diagnosis Anemia, unspecified documented in this encounter 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
== END 2025-04-18 13:41 | disposition home or self-care (01) ==
LOC: HO.ENCR 12:52
PROVIDERS: PCP Internal Medicine; Visit Provider Physician Assistant Medical
DX: E11.10 Type 2 diabetes mellitus with ketoacidosis without coma (principal); E11.65 Type 2 diabetes mellitus with hyperglycemia

== ENCOUNTER → 2025-04-18 12:51 | Outpatient (BNVA) | payer MEDICARE, OTHER, SELFPAY | PROVIDERS: PCP Internal Medicine; Visit Provider Physician Assistant Medical | DX: E11.10 Type 2 diabetes mellitus with ketoacidosis without coma (principal); E11.65 Type 2 diabetes mellitus with hyperglycemia; E10.9 Type 1 diabetes mellitus without complications; Z79.4 Long term (current) use of insulin | CPT/HCPCS: 82947; 99212 ==

== ENCOUNTER 2025-04-19 08:39 | Outpatient (REF) | payer MEDICARE, OTHER, SELFPAY ==
--- NOTE | ~2025-04-19 | XR_ITS ---
EXAMINATION: XR FEMUR, LEFT CLINICAL INFORMATION: M79.606 - Pain in leg, unspecified COMPARISON: February 02, 2025 TECHNIQUE: AP and lateral views of the left femur were obtained. 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 There is a large sideplate with screws extending from the lower greater trochanter to the lateral femoral condyle secured with multiple screws. Additionally, there are 5 cerclage wires around the proximal femoral diaphysis. Hardware is intact. There is lucency lateral to the tip of the femoral stem. There is a healed oblique fracture of the proximal femoral diaphysis. The knee joint demonstrates mild narrowing of the medial compartment and mild narrowing of lower arm. XR/XR femur LT 2V IMPRESSION: ORIF left femur after periprosthetic fracture at the femoral stent. Lucency located lateral to the femoral stem is probably related to the forementioned fracture and is stable since at least November 24, 2024. Electronically signed by: Alexandre Martínez MD 04/19/2025 05:45 PM EDT
--- OUTSIDE RECORDS SUMMARY | 2025-04-19 08:50 | XMS_ITS | Encounter Summary ---
Author Organization [facility] Address [address] [place] [address] Care Team Providers Care Early Childhood Education Worker Name Role Phone Keli Dickinson MD Primary Care Provider [phone] Encounter Details Date Type Department Care Team (Late st Contact Info) Description 01/28/2025 Lab Requisition [facility] Lab [address] [place] [address] Keli Dickinson MD [address] [place] [address] Anemia, unspecified Social History Tobacco [...] LAB COAGULATION METHOD 01/28/2025 4:10 PM EDT [facility] Blood Venous blood specimen / Unknown Venipuncture / Unknown 01/28/2025 3:28 PM EDT 01/28/2025 3:54 PM EDT Narrative [facility] - 01/28/2025 4:10 PM EDT D-Dimer <230 ng/mL (D-Dimer units) is the threshold for exclusion of DVT/PE. D-Dimer may be elevated in: Critically ill, severely infected, trauma patients, DIC, acute CVA, acute VT, unstable angina, AF, old age, , and smoking. D-Dimer may be decreased with: Initiation of heparin therapy and oral anticoagulants. us Keli Dickinson MD LAB BLOOD ORDERABLES Final Resul t [facility] [address] [place] [address], * (ABNORMAL) Comprehensive metabolic panel (01/28/2025 3:28 PM EDT) Sodium 135 133 - 145 mmol/L LAB CHEMISTRY METHOD [facility] Potassium 4.2 3.5 - 5.5 mmol/L LAB CHEMISTRY METHOD 01/28/2025 4:30 PM [facility] Chloride 101 96 - 110 mmol/L LAB CHEMISTRY METHOD 01/28/2025 4:30 PM [facility] CO2 27 21 - 32 mmol/L LAB CHEMISTRY METHOD 01/28/2025 4:30 PM [facility] Anion Gap 7 3 - 11 LAB CHEMISTRY METHOD 01/28/2025 4:30 PM [facility] Glucose 338(H) 70 - 100 mg/dL LAB CHEMISTRY METHOD 01/28/2025 4:30 PM [facility] BUN 15 5 - 25 mg/dL LAB CHEMISTRY METHOD 01/28/2025 4:30 PM [facility] Creatinine 0.87 0.50 - 1.10 mg/dL LAB CHEMISTRY METHOD 01/28/2025 4:30 PM EDT [facility] eGFR 64 >=60 mL/min/1. 73m2 LAB CHEMISTRY METHOD 01/28/2025 4:30 PM EDT [facility] Comment:Calculation based on the??Chronic Kidney Disease Epidemiology Collaboration (CKD-EPI) equation refit??without adjustment for race. BUN/Creatinine Ratio 17.2 LAB CHEMISTRY METHOD 01/28/2025 4:30 PM EDT [facility] Calcium 8.7 8.5 - 10.5 mg/dL LAB CHEMISTRY METHOD 01/28/2025 4:30 PM T [facility] AST (SGOT) 14 10 - 42 unit/L LAB CHEMISTRY METHOD 01/28/2025 4:30 PM [facility] ALT (SGPT) 13 10 - 60 unit/L LAB CHEMISTRY METHOD 01/28/2025 4:30 PM [facility] Alkaline Phosphatase 95 42 - 121 unit/L LAB CHEMISTRY METHOD 01/28/2025 4:30 PM EDT [facility] Total Protein 5.7(L) 6.0 - 8.0 g/dL LAB CHEMISTRY METHOD 01/28/2025 4:30 PM [facility] Albumin 2.8(L) 3.2 - 5.0 g/dL LAB CHEMISTRY METHOD 01/28/2025 4:30 PM [facility] Total Bilirubin 0.4 0.0 - 1.4 mg/dL LAB CHEMISTRY METHOD 01/28/2025 4:30 PM [facility] Blood Venous blood specimen / Unknown Venipuncture / Unknown 01/28/2025 3:28 PM EDT 01/28/2025 3:54 PM EDT us Keli Dickinson MD LAB BLOOD ORDERABLES Final Resul t [facility] [address] [place] [address], * (ABNORMAL) Complete blood count (01/28/2025 3:28 PM EDT) [facility] WBC 7.9 4.8 - 10.8 K/mcL LAB HEMETOLOGY METHOD 01/28/2025 4:06 PM [facility] RBC 4.20 3.80 - 4.80 M/mcL LAB HEMETOLOGY METHOD 01/28/2025 4:06 PM [facility] Hemoglobin 10.5(L) 11.5 - 16.0 g/dL LAB HEMETOLOGY METHOD 01/28/2025 4:06 PM [facility] Hematocrit 33.2(L) 35.0 - 47.0 % LAB HEMETOLOGY METHOD 01/28/2025 4:06 PM [facility] MCV 79.6 79.0 - 98.0 FL LAB HEMETOLOGY METHOD 01/28/2025 4:06 PM [facility] MCH 25.2(L) 27.0 - 32.0 pcg LAB HEMETOLOGY METHOD 01/28/2025 4:06 PM [facility] MCHC 31.6(L) 32.0 - 37.0 g/dL LAB HEMETOLOGY METHOD 01/28/2025 4:06 PM [facility] RDW 15.2(H) 11.0 - 15.0 % LAB HEMETOLOGY METHOD 01/28/2025 4:06 PM [facility] Platelets 233 130 - 400 K/mcL LAB HEMETOLOGY METHOD 01/28/2025 4:06 PM [facility] MPV 11.1(H) 7.0 - 11.0 FL LAB HEMETOLOGY METHOD 01/28/2025 4:06 PM [facility] NRBC 0.0 <1.0 % LAB HEMETOLOGY METHOD 01/28/2025 4:06 PM EDT [facility] NRBC Absolute 0.00 <0.10 K/mcL LAB HEMETOLOGY METHOD 01/28/2025 4:06 PM EDT [facility] Blood Venous blood specimen / Unknown Venipuncture / Unknown 01/28/2025 3:28 PM EDT 01/28/2025 3:54 PM EDT us Keli Dickinson MD LAB BLOOD ORDERABLES Final Resul t [facility] [address] [place] [address], documented in this encounter Visit Diagnoses Diagnosis Anemia, unspecified documented in this encounter 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
== END 2025-04-19 08:40 | disposition home or self-care (01) ==
LOC: HO.HOSX 08:39
PROVIDERS: Visit Provider Physician Assistant
DX: M79.605 Pain in left leg (principal); S72.92XA Unspecified fracture of left femur, initial encounter for closed fracture
CPT/HCPCS: 73552; 99212

== ENCOUNTER 2025-04-19 11:36 | Outpatient (AMB) | payer MEDICARE, OTHER, SELFPAY ==
--- NOTE | 2025-04-19 11:58 | A.OFFVIS_ITS ---
Vital Signs 04/19/25 12:04 Height 5 ft 4 in Weight 178 lb BMI 30.6 Intake Visit Reasons: OV-ORIF left femur 11/02/24 NE-w/xrays Intake Note: Lisa is an 89 year old female who presents for a follow up s/p ORIF of left femur, DOS 11/02/24 NE. At her last visit she was to continue working with PT/OT and follow up in 6-8 weeks. Patient reports she is doing well, she has completed therapy. States no concerns today. Allergies adhesive tape [Adhesive Tape] Allergy (Unknown, Verified 04/19/25 12:03) SKIN REDNESS Medication List - Last Reconciled 04/19/25 by DAYNA Lorenzo-Angelo acetaminophen (Tylenol) 650 mg PO Q4-6H PRN acetone (urine) test (Ketone Urine Test strips) As directed blood-glucose sensor (FreeStyle Anna 3 Sensor device) As directed blood-glucose,solar process engineer,cont (FreeStyle Anna 3 [place]) As directed calcium carbonate 500 mg PO BID cyanocobalamin (vitamin B-12) 100 mcg PO DAILY dextrose (TRUEplus Glucose) 15 grams (32 mL) PO Q15M PRN furosemide (Lasix) 20 mg PO DAILY PRN hydralazine 10 mg PO BEDTIME PRN insulin aspart U-100 (Novolog FlexPen U-100 Insulin aspart) See Protocol sliding scale doses subcut TIDWM insulin degludec (Tresiba FlexTouch U-200 insulin) 15 units (0.075 mL) subcut BEDTIME levothyroxine 112 mcg PO DAILY@0600 nystatin (Nyamyc) 1 appl See Protocol topical TID PRN omeprazole 20 mg PO DAILY@0630 pravastatin 80 mg PO BEDTIME zinc sulfate 220 mg PO DAILY HPI HPI OV-ORIF left femur 11/02/24 NE-w/xrays: Details: 89-year-old female returns to the office today status post ORIF left femur on 11/02/[address] Baumann. She has been ambulating weight-bearing as tolerated with a walker. She states she feels good and she has no pain. She is working with physical therapy and regaining her strength and balance. [facility] Medical History (Updated 04/18/25 @ 13:07 by DAYNA Hanson) Type I diabetes mellitus Left bundle branch block CAD (coronary artery disease) Patellofemoral arthritis of right knee Diabetes mellitus Surgical History Hx of mastectomy Hx of mastectomy Social History Household Members: None Household Members Other:: Home alone, went to [facility] a few weeks ago Housing: House Do you presently have visiting nurse or other home services: No Patient Tobacco Use Status: Never used Tobacco Advance Directives Date on File: 11/01/24 service: No Current occupational status: retired 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 No ecchymosis, no swelling. No drainage. No significant tenderness around the knee. No joint effusion. Calf supple nontender neurovascularly intact. Results Reviewed Results Reviewed: X-rays of the left femur obtained in the office today and reviewed by me show intact orthopedic hardware. Interval healing. Assessment & Plan Assessment & Plan (1) Closed left femoral fracture: Code(s): S72.92XA - Unspecified fracture of left femur, initial encounter for closed fracture Category: Medical Qualifiers: Encounter type: subsequent encounter Femur location: shaft Fracture alignment: displaced Fracture healing: with routine healing Plan: The patient will continue with physical therapy and strengthening exercises. She will continue weight-bearing as tolerated with a walker and possibly transition to a cane if she is doing well. I did recommend that she use some type of assistive device at all times. If there is any concerns or questions going forward she can contact our office otherwise she will follow up as needed. Orders: Orders XR femur LT 2V Today M79.606 - Pain in leg, unspecified Coding Level of Care Code Est Pt Level 3 (58868) Complex EM visit Add On G2211 Diagnoses Closed left femoral fracture S72.92XA Encounter type: subsequent encounter Femur location: shaft Fracture alignment: displaced Fracture healing: with routine healing
[2025-04-19 12:04] VITALS: BMI 30.6
== END 2025-04-19 12:24 | disposition home or self-care (01) ==
LOC: HO.HOS 11:37
PROVIDERS: PCP Internal Medicine; Visit Provider Physician Assistant
DX: S72.92XA Unspecified fracture of left femur, initial encounter for closed fracture (principal)
CPT/HCPCS: 99213; G2211

== ENCOUNTER → 2025-04-19 11:39 | Outpatient (BNV) | payer MEDICARE, OTHER, SELFPAY | PROVIDERS: Visit Provider Radiology Diagnostic Radiology | DX: M97.02XA Periprosthetic fracture around internal prosthetic left hip joint, initial encounter (principal) | CPT/HCPCS: 73552 ==

== ENCOUNTER 2025-05-16 12:30 | Outpatient (AMB) | payer MEDICARE, OTHER, SELFPAY ==
--- NOTE | 2025-05-16 12:38 | A.OFFVIS_ITS ---
VS Expanded 05/16/25 13:02 05/31/25 08:50 Height 5 ft 4 in 5 ft 4 in Weight 169 lb 15.622 oz 170 lb BMI 29.2 29.2 Intake Visit Reasons: DM w/ Hyperglycemia Allergies adhesive tape (Adhesive Tape) Allergy (Unknown, Verified 04/19/25 12:03) SKIN REDNESS Nutrition Presentation Details: Pt presents for MNT for T1DM Pt presents with her grand daughter to this appt Pt reports she had edema last month , wt was at 178 lbs last month and Pt reports she was treated with lasix, wt today at 170 lbs Pt reports having 3 meals per day and 1-3 snacks, she reports doing well no concerns, has good appetite has glucose sensor and reports feeling comfortable utilizing it and unde rstanding it. Had a low BG in the past 2 weeks, per sensor, and reports having treated by having 1/2 cup of juice and then had a meal with good results. Typical meal b: 2 slice of bread with eggs/cheese or pancake with syrup, coffee diet sugar L: soup/salad or sand salad, water or milk dinner: potato/chicken or beef and peas, water snack chips or crackers with peanut butter or ice cream reports having a variety of foods and prepares own meals for the most part Pt reports making own meals , keeping independent etoh/smoking- denies PWU-Vtjelhx-Oq.Jeor Equation Height: 5 ft 4 in Weight: 170 lb Resting Metabolic Rate: 1187.46 Calculated Activity Level: Mild Activity Calories Needed to Maintain Weight: 1632.76 Diagnosis Nutrition problem #1: food nutri know defi As related to (etiology) #1: diagnosis As evidenced by (sign/symptom) #1: knowledge deficit of diet (fiber rich foods) [facility] Medical History (Updated 05/16/25 @ 14:19 by DAYNA Hanson) Urinary frequency Type I diabetes mellitus Left bundle branch block CAD (coronary artery disease) Patellofemoral arthritis of right knee Diabetes mellitus Surgical History Hx of mastectomy Hx of mastectomy Social History Household Members: None Household Members Other:: Home alone, went to [facility] a few weeks ago Housing: House Do you presently have visiting nurse or other home services: No Patient Tobacco Use Status: Never used Tobacco Advance Directives Date on File: 11/01/24 service: No Current occupational status: retired 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/ Assessment & Plan Assessment & Plan (1) Diabetes mellitus with hyperglycemia: Code(s): E11.65 - Type 2 diabetes mellitus with hyperglycemia Category: Medical Qualifiers: Diabetes mellitus type: type 1 Qualified Code(s): E10.65 - Type 1 diabetes mellitus with hyperglycemia Plan: Wt: 77 Kg ( 06/09 ) Est kcal needs as per MSJ: 8412-5459 (40% carb, 30% protein/fat) Est fluid needs as per 25-30 ml/d: 2300 Est prot per day as per 1 g/kg bw: 80 Recommend fiber intake : 8-10 g per day and gradually increase to 25-28 g per day for women and 35-38 g for men or as tolerated Recommend sodium intake per day : less than 2300 mg Educated patient on: ( R = reviewed V = verbalizes understanding N/R = needs review N/A = not applicable * Food sources of carbohydrate, adequate serving sizes and its role in various health conditions: R V N/R * Differences between complex carbohydrates a simple carbohydrates, role of fiber in diet: R * Lean protein sources of foods: R * Differences between types of fats and role in diet (mono on saturated fat fatty acids, saturated fatty acids, trans fats): R V N/R * Food sources of sodium in salt and healthy modifications for heart health in kidney health: R * Vitamins and minerals: R V N/R * Healthy plate method concept: R ,V * Physical activity: Benefits a precaution: R V N/R * Hypoglycemia protocol (rule of 15): R V * Dietary prevention of Hyperglycemia: R V Patient Instructions: Follow healthy plate method at meal times , include lean protein in your meals - see meal ideas consisting of 60 g carbs/3-4 oz protein Choose whole grain foods Keep hydrated by having water/diluted juices iwth water/milk Coding Level of Care Code Nutr Indiv Intake (45555) Diagnoses Type 1 diabetes mellitus with hyperglycemia E10.65 Diabetes mellitus type: type 1 Time Spent (min) 30
[2025-05-16 13:02] VITALS: BMI 29.2
[2025-05-31 08:50] VITALS: BMI 29.2
== END 2025-05-16 13:43 | disposition home or self-care (01) ==
LOC: HO.ENCR 12:31
PROVIDERS: PCP Internal Medicine; Visit Provider Dietitian, Registered
DX: E10.65 Type 1 diabetes mellitus with hyperglycemia (principal)

== ENCOUNTER 2025-05-16 12:30 | Outpatient (REF) | payer MEDICARE, OTHER, SELFPAY ==
[2025-05-16 16:44] LABS: Appearance Urine Clear; Glucose Urine UA Negative (Negative); PH 6.0 (5.0-9.0); Specific Gravity - Urine 1.020 (1.005-1.025); UMIC TRIGGER UA YES
== END 2025-05-16 12:31 | disposition home or self-care (01) ==
LOC: HO.LNP 12:30
PROVIDERS: PCP Internal Medicine; Visit Provider Physician Assistant Medical
DX: E10.10 Type 1 diabetes mellitus with ketoacidosis without coma (principal); E10.42 Type 1 diabetes mellitus with diabetic polyneuropathy; E10.21 Type 1 diabetes mellitus with diabetic nephropathy; R35.0 Frequency of micturition; Z71.3 Dietary counseling and surveillance
CPT/HCPCS: 81001; 82947; 87086; 87088; 87186; 97802; 99212

== ENCOUNTER 2025-05-16 12:30 | Outpatient (AMB) | payer MEDICARE, OTHER, SELFPAY ==
--- OUTSIDE RECORDS SUMMARY | 2024-10-18 06:45 | XMS_ITS ---
Author Organization [facility] Address [address] [place] [address] Care Team Providers Care Registered Nurse Step Down Name Role Phone Janes Foster MD Primary Care Provider Unavailabl Fernando Molina Unavailable [phone] Encounters Encounter Location Date Provider Diagnosis [address] [address] 10/18/2024 Fernando Lim Plan Of Treatment Next Appt Details Provider Name:Fernando Lim , 08/01/2025 01:30:00 PM, [address] [place], [address], Progress Notes * Lisa HOLLIDAY ADOB:[birth year] (89 yo F)Acc No.[id number]:10/18/2024 Progress Note Patient: Lisa STAUFFER Provider: Lewis Lim DPM :1935 A ge:88 Y S ex:Female Date:10/18/2024 [address] [id number] Pcp:Janes Foster MD Subjective: * Chief Complaints: * * Medical History: Objective: * Vitals: Assessment: Plan: * Treatment: * Images: * The named appointment provid er may or may not be the originator of this progress note, and it is not deemed complete until electronically signed by the appointment provider. Sign off status: Pending * Provider: Lewis Lim DPM Date: 12/19/2023 Generated for Printi ng/Jonnie/Emyitting on: 0 05/16/2025 01:23 PM EDT
--- OUTSIDE RECORDS SUMMARY | 2025-05-12 23:59 | XMS_ITS | Continuity of Care Document ---
Author Organization [facility] Nik lt Address [address] [place] [address]- Care Team Providers Care Laser/Electro Optics Technician Name Role Phone Janes Foster MD Primary Care Physician Encounter [facility] Date(s): 05/05/25 - 05/12/25 [facility] Adult [address] [place] [address]- Attending Physician: Janes Foster MD Encounter Type: Office Visit Allergies, Adverse Reactions, Alerts No Known Allergies [...] Vaccine (oldterm) 4 08/03/09 Given SARS-CoV-2 mRNA (caswasi-bzym-oegiw) vax 5 07/31/24 Recorded SARS-CoV-2 mRNA (cysrhdq-kepa-igkqq) vax 04/03/22 Recorded influenza virus vaccine, inactivated 07/30/24 Bill rded influenza virus vaccine, inactivated 08/22/23 Bill rded influenza virus vaccine, inactivated 6 08/24/21 Re corded influenza virus vaccine, inactivated 08/14/18 Give n influenza virus vaccine, inactivated 08/03/17 Bill rded influenza virus vaccine, inactivated 7 08/17/16 Gi rhianna influenza virus vaccine, inactivated 8 12/29/15 Gi rhianna influenza virus vaccine, inactivated 08/21/14 Give n influenza virus vaccine, inactivated 9 08/17/13 Gi rhianna influenza virus vaccine, inactivated 10 07/22/12 G iven influenza virus vaccine, inactivated 11 09/09/06 G iven SARS-CoV-2(COVID-19)mRNA-LNP vac(amt327) 07/30/24 Recorded RSV vaccine preF3, recombinant 12/19/23 Recorded zoster vaccine, inactivated 07/25/23 Recorded zoster vaccine, inactivated 05/23/23 Recorded pneumococcal 20-valent conjugate vaccine 05/22/23 Given [id number] 12y+ bivalent booster vax 09/16/22 Recorded SARS-CoV-2 [...] Pneumococcal Vaccine (oldterm) 11/16/04 Given 1Result Comment: [facility] 2Result Comment: local pharmacy [facility] [place] 4Admin Note: given by simone doc by jose [facility] 7[facility] Note: [facility] at [facility] 8Admin Note: [facility] 9Admin Note: [facility] 10Admin Note: VIS GIVEN 11Admin Note: GIVEN IN CLINIC SHIL 12Result Comment: [facility] vaccine 13Admin Note: [facility] 14Admin Note: [facility] VIS [id number] given 15Admin Note: historical data Medications Accu-Chek [...] USE DIRECTED DX BREAST CANCER C50.919 FAX [phone], 12/17/16 10:11:47 AM EST, Compound Start Date: [...] Solostar Pen 100 units/mL subcutaneous solution = 15 units, Subcutaneous Injection, Daily, increase 2 units every 3 days until FBS < 130 per PCPmax dose 50 units daily, # 15 mL, 1 Refills, Maintenance, 10/10/24 4:10:00 PM EST, [facility],165, cm, 06/15/24 13:43:00 EDT, Height Start Date: 10/10/24 Status: Ordered Quantity: 15.0 Unit: mL Repeat number: 1 levothyroxine 0.112 mg oral tablet 1 tablet, By Mouth, Daily, # 90 tablet, 3 Refills, Maintenance, 01/11/25 2:57:00 PM EST, [facility], 165, cm, 06/15/24 13:43:00 EDT, Height Start Date: 01/11/25 Status: Ordered Quantity: 90.0 Unit: tablet Repeat number: 1 MASTECTOMY BRA MASTECTOMY BRA, See Instructions, # 3 each, Refills 1, Tot. Refills 1, Maintenance, USE DIRECTEDDX BREAST CA C50.919 FAX [phone], 12/17/16 10:13:30 AM EST, Compound Start Date: [...] 100 units/mL injectable solution See Instructions, INJECT SQ for Novolog Sliding Scale TID with meals: for BREAKFAST & LUNCH ONLY: 100-149 9 units 150-199 11 units 200-249 13 units 250- 299 15 units 300-349 17 units 350 and over 19 units & call PCP Novolog Sliding Scale for DINNER ONLY: 100-149 7 units 150-199 9 units 200-249 11 units 250-299 13 units 300-349 15 units 350 and over 17 units & call PCP, # 45 Unknown, 5 R efills, Maintenance, 09/19/24 8:31:00 AM EST, [id number], 165, cm, 06/15/24 13:43:00 EDT, Height Start Date: 09/19/24 Status: Ordered Quantity: 45.0 Unit: Unknown Repeat number: 1 Pen [place], 31 G x 5 mm BD Ultra Fine III See Instructions, # 360 each, Refills 3, Tot. 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 *Can give 3 month supply, 03/29/25 11:59:00 AM EDT, 90 day supply, Compound, 165, cm, 03/28/25 11:56:00 EDT, Height Start Date: 03/29/25 Status: Ordered Quantity: 360.0 Unit: each Repeat number: 4 pravastatin 80 mg oral tablet 1 tablet, By Mouth, Daily at bedtime, # 90 tablet, 3 Refills, Maintenance, 04/15/24 8:26:00 AM EDT, [facility] Mail [facility], 165, cm, 11/25/23 [...] 12:00:00 PM EDT, Route to Pharmacy Electronically, [facility], 165, cm, 05/20/23 [...] Quantity: 60.0 Unit: capsule Repeat number: 1 Zithromax 250 mg oral tablet 1 pack/packet, By Mouth, Once, # 6 tablet, 0 Refills, Soft Stop, 05/05/25 4:24:00 PM EDT, Tablet, [id number] Partial fill upon patient request if the prescription is for a schedule II opioid drug., 165, cm, 05/05/25 16:21:00 EDT, Height Start Date: 05/05/25 Status: Ordered Quantity: 6.0 Unit: tablet Repeat number: 1 Problem List [...] m Start Date:06/15/24 End Date: Status:Met Progression:Met Note * Leny Hunt: PERFORM Event Display: Patient Education/Instruction Authored Date: [id number] Ambulatory Adult Visit Summary [facility] Adult [facility] [address], [place] [id number] Name: ARGENIS JOHNSON : 1935?? Visit: 05/05/2025 15:50?? Ambulatory Visit Instructions ?? Your Care Team Primary Care Provider Janes Foster MD? This Visit Provider Janes Foster MD Your Diagnosis Acute otitis media, left Vitals Signs Temperature: 98.1 DegF Height: 165 cm Pulse Rate: 76 bpm ?? Systolic Blood Pressure: 130 mm Hg ?? Diastolic Blood Pressure: 70 mm Hg ?? Oxygen Saturation: 99 % ?? What to do next Future Orders Hemoglobin A1C (Monitoring) - Once, *Est. 05/25/24 +/- 28 days, Single or Recurring Future Order?? Comprehensive Metabolic Panel - Once, *Est. 05/25/24 +/- 28 days, Single or Recurring Future Order?? Microalbumin Urine (Urine Microalbumin) - Urine, Once, *Est. 05/25/24 +/- 28 days, Single or Recurring Future Order?? CBC - Once, *Est. 05/25/24 +/- 28 days, Single or Recurring Future Order?? Thyroid Panel - Once, *Est. 05/25/24 +/- 28 days, Single or Recurring Future Order?? Lipid Panel - Once, *Est. 05/25/24 +/- 28 days, Single or Recurring Future Order?? Vitamin B12 Level - Once, *Est. 05/25/24 +/- 28 days, Single or Recurring Future Order?? Vitamin D 25 Hydroxy Level - Once, *Est. 05/25/24 +/- 28 days, Single or Recurring Future Order?? Medications The list below reflects the information in our records and provided by you today along with any changes made during this visit. Please continue your medications until treatment is completed or stopped by your provider. If this is different from the information you have or there are other questions,please contact the prescribing provider. What How Much When Instructions New Azithromycin (Zithromax 250 mg oral tablet) 1 pack/packet Oral Once Pickup at [id number] Unchanged Amoxicillin (amoxicillin 500 mg oral capsule) See instructions 4 capsule By Mouth One Hour Prior to Dental Procedure dentiist prescribes ?? Unchanged Aspirin (Aspirin Enteric Coated 81 mg oral delayed release tablet) See instructions TAKE 1 TABLET BY MOUTH EVERY DAY ?? Unchanged Calcium Carbonate (calcium (as carbonate) 500 mg oral tablet, chewable) 1 tab(s) Chew Twice a day Unchanged Cholecalciferol (Vitamin D3 2000 intl units oral capsule) 1 capsule Oral Daily Unchanged Cyanocobalamin (Vitamin B-12 1000 mcg oral tablet) 1 tab(s) Oral Daily Unchanged Durable Medical Equipment (Accu-Chek Meter Guide Me) See instructions Dependent on insulin (Z79.4) SLIDING SCALE DM type 2 (E11.9) Use to check blood sugars 3 times a day after breakfast, lunch and dinner. ?? Unchanged Durable Medical Equipment (Accu-Chek Softclix Lancing Device and Lancets) See instructions Dependent on insulin (Z79.4) SLIDING SCALE DM type 2 (E11.9) Use to check blood sugars 3 times a day after breakfast, lunch and dinner. ?? Unchanged Durable Medical Equipment (Accu-Chek Test Strips Guide) See instructions Dependent on insulin (Z79.4) SLIDING SCALE DM type 2 (E11.9) Use to check blood sugars 3 times a day after breakfast, lunch and dinner. ?? Unchanged Durable Medical Equipment (BREAST PROSTHETIC) See instructions USE DIRECTED DX BREAST CANCER C50.919 FAX [phone] ?? Unchanged Durable Medical Equipment (Diabetic Shoes) See instructions Dx: Diabetic type 2 with Neuropathy WT: 166lbs HT: 5'5 ?? Unchanged Durable Medical Equipment (FreeStyle Anna 14day Sensor) See instructions Dx: long-term insulin dependent diabetes type 2 (Z79.4) Use to check blood sugar levels daily Chage sensor every 14days ?? Unchanged Durable Medical Equipment (MASTECTOMY BRA) See instructions USE DIRECTED DX BREAST CA C50.919 FAX [phone] ?? Unchanged Durable Medical Equipment (Misc Durable Medical Equipment) See instructions USE DIRECTED DX BREAST CANCER ?? Unchanged Durable Medical Equipment (Pen [place], 31 G x 5 mm BD Ultra Fine III) See instructions Use to administer insulin 4x/ day ??for IDDM ??E11.9 *Can give 3 month supply ?? Unchanged Durable Medical Equipment (Shoe Inserts) See instructions Dx: Diabetic type 2 with Neuropathy WT: 166lbs HT: 5'5 ?? Unchanged Furosemide (Lasix 20 mg oral tablet) See instructions ONLY PRN: ??Take 1 tablet By Mouth daily PRN for lower leg edema. ??Ordered by cardiology at [place] Dr. Avila ?? Unchanged hydrALAZINE (hydrALAZINE 10 mg oral tablet) 1 tab(s) Oral Daily at Bedtime Take only if b/ p is > 150/ 80 ordered in rehab 4 month stay Unchanged Insulin Aspart (NovoLOG FlexPen 100 units/ mL injectable solution) See instructions INJECT SQ for Novolog Sliding Scale TID with meals: ?? for BREAKFAST & LUNCH ONLY: 100-149 ?9 units 150-199 ?11 units 200-249 ?13 units 250-299 ?15 units 300-349 ?17 units 350 and over 19 units & call PCP ?? Novolog Sliding Scale for DINNER ONLY: 100-149 ?7 units 150-199 ?9 units 200-249 ?11 units 250-299 ?13 units 300-349 ?15 units 350 and over 17 units & call PCP Unchanged Insulin Glargine (Lantus Solostar Pen 100 units/ mL subcutaneous solution) 15 unit(s) Subcutaneous Injection Daily increase 2 units every 3 days until FBS < 130 per PCP max dose 50 units daily Unchanged Levothyroxine (levothyroxine 0.112 mg oral tablet) 1 tab(s) Oral Daily Unchanged Loperamide (Imodium A-D 2 mg oral tablet) 1 tab(s) Oral Every 4 hours as needed for for loose stool Unchanged Pravastatin (pravastatin 80 mg oral tablet) 1 tab(s) Oral Daily at Bedtime Unchanged Psyllium (Metamucil 3.4 gm/ 5.2 gm oral powder for reconstitution) 1.7 gram Oral Daily as needed for as needed for constipation Unchanged Zinc Sulfate (zinc sulfate 220 mg oral capsule) 1 capsule Oral Daily started at rehab when she was there for past 4 months ?? [facility] Information [id number] [address], [place] [phone] Medications and Immunizations Administered Medications Given During Visit No medications given during this visit.?? Allergies (NKA means No Known Allergies) NKA Common Emergency Awareness Tips IS IT A STROKE? Act FAST and Check for these signs: FACE Does the face look uneven? ARM Does one arm drift down? SPEECH Does their speech sound strange? TIME Call at any sign of stroke ?? Heart Attack Signs Chest discomfort: Most heart attacks involve discomfort in the center of the chest and lasts more than a few minutes, or goes away and comes back. It can feel like uncomfortable pressure, squeezing, fullness or pain. Discomfort in upper body: Symptoms can include pain or discomfort in one or both arms, back, neck, jaw or stomach. Shortness of breath: With or without discomfort. Other signs: Breaking out in a cold sweat, nausea, or lightheaded. Remember, MINUTES DO MATTER. If you experience any of these heart attack warning signs, call to get immediate medical attention! ?? Smoking can increase your chances of developing chronic health problems and can cause harmful effects to other family members in your house. If you smoke, you are strongly encouraged to quit. Please call [facility] Link at [phone] or [phone] ([phone]) or log in to [email or web address] for referrals to smoking cessation programs. ?? The National Suicide Prevention Hotline is available 08/06 if you or someone you know needs to find a reason to keep living. By calling 4-563-846-Room 8 Studio (4335) you'll be connected to a skilled, trained counselor at a crisis center in your area. [facility] Portal You can view and manage your care through the patient portal or by using a health care rosario of your choosing. [employer] is a website that allows you to securely view your medical information including your hospital discharge summary, office visit summaries, medications and follow-up visits. You can also request appointments, renew medications, and request access to your medical information using a health care rosario of your choosing, or just ask a question. You can enroll at [email or web address] or register during your next office visit. [facility], in keeping with [facility] guidance, no longer requires face masks for staff, patientsor visitors in most situations. Similiar to time spent indoors at other locations, there is the chance that you were exposed to repiratory viruses during your time with us (such as flu or COVID-19). If you develop symptoms concerning for a viral respiratory infection, please seek testing (and treatment if indicated) from your medical provider or home test kit. ?? Disclaimer: The information provided is of a general nature and is intended to be used in conjunction with the recommendations and advice of your health care practitioner. Every effort has been made to ensure that the information provided is accurate and complete at the time it is provided to you however, as your needs change, or, as new information becomes available, different or additional instructions may be required. ?? If you have questions, please consult with your primary care provider or pharmacist, as appropriate. This information is not intended to serve as substitution for assessment and evaluation by a qualified health care provider. If you do not have a primary care provider, you may find a [facility] provider by calling [facility] at [phone]. Patient Care team information Care Team Personnel Name: Janes Foster MD Position: [facility] Physician - Primary Care Member Role: PCP Address: [address] [place] [id number] Telecom: Name: Zamzam Alejandro RN Position: [facility] RN Member Role: Primary Care Nurse Name: Sheeba ([facility] Stephanie Position: [facility] front office help Member Role: Elevated Work Platform Operator Name: Juan Manuel Hernandez Position: [facility] Outreach Member Role: [employer] Consult[employer] Physician Name: Ena Posey RN Position: [facility] RN Member Role: Primary Care Nurse Care Team Related Persons Name: YUNIOR JOHNSON Name: RAFAEL JOHNSON Name: ZOYA SIN Insurance Providers Guarantor name: ARGENIS JOHNSON Health Plan Information #: 1 Payer: MEDICARE B Payer Identifier: Member Number: [id number] Group Number: Subscriber Identifier: [id number] Relationship to Subscriber: self Coverage Type: NA Coverage Verification Date: NA Telecom: NA Address: Health Plan Information #: [address] [facility] Payer Identifier: NA Member Number: [id number] Group Number: [id number] Subscriber Identifier: [id number] Relationship to Subscriber: self Coverage Type: Medicare Other Coverage Verification Date: NA Telecom: Address:
--- NOTE | 2025-05-16 12:43 | A.OFFVIS_ITS ---
Vital Signs 05/16/25 13:11 05/16/25 13:34 Height 5 ft 4 in Weight 169 lb 15.622 oz BMI 29.2 BP 168/74 H 156/60 H Blood Pressure Location Rt brachial Position Sitting Pulse 69 Pulse Source Pulse Oximeter Pulse Oximetry (%) 96 Oxygen Delivery Method Room Air Intake Visit Reasons: Type II diabetes Intake Note: Patient present today to follow up on Type 2 Diabetes Mellitus. Patient receives DME supplies through: Last Diabetic Eye exam: DUE Last Podiatry Visit: Patient does not see a Rounder And Backer Most Recent HgA1C: 9.3% 03/15/2025 Random Glucose: 153 mg/dL Stone Rigger Required: No Accompanied by: Self / Same As Patient Allergies adhesive tape (Adhesive Tape) Allergy (Unknown, Verified 04/19/25 12:03) SKIN REDNESS Medication List - Last Reconciled 05/16/25 by DAYNA Hanson acetaminophen (Tylenol) 650 mg PO Q4-6H PRN acetone (urine) test (Ketone Urine Test strips) As directed blood-glucose sensor (FreeStyle Anna 3 Sensor device) As directed blood-glucose,glassine machine tender,cont (FreeStyle Anna 3 Dola) As directed calcium carbonate 500 mg PO BID cyanocobalamin (vitamin B-12) 100 mcg PO DAILY dextrose (TRUEplus Glucose) 15 grams (32 mL) PO Q15M PRN furosemide (Lasix) 20 mg PO DAILY PRN hydralazine 10 mg PO BEDTIME PRN insulin aspart U-100 (Novolog FlexPen U-100 Insulin aspart) See Protocol sliding scale doses subcut TIDWM insulin degludec (Tresiba FlexTouch U-200 insulin) 12 units subcut BEDTIME levothyroxine 112 mcg PO DAILY@0600 nystatin (Nyamyc) 1 appl See Protocol topical TID PRN omeprazole 20 mg PO DAILY@0630 pravastatin 80 mg PO BEDTIME zinc sulfate 220 mg PO DAILY HPI Comments Details: This is an 89-year-old female with a past medical history of CHF, diabetes mellitus, orthostatic hypotension, sinus bradycardia, left bundle branch block and DKA presenting for diabetic management. She is here with her granddaughter, Amparo. She was diagnosed with diabetes 39 years ago. Patient disclosed initially that though her chart read type II diabetes about 5 years ago she saw an supply planner who said she had type 1 diabetes. She had C-peptide, ALEX antibody and islet cell antibody drawn since her last visit, and her blood work is consistent with type 1 diabetes. Patient had recurrent admissions for DKA but none since our initial visit. She saw the project management it specialist today and is very pleased with the visit and information she received. Hemoglobin a1c 9.3% 03/15/2025. Reviewed TopiVert 3 data CGM active 96% Average glucose 183 GMI 7.7% Glucose variability 38.3% Very high 24% High 22% Target range 53% 1% hypoglycemia She is low sometimes overnight, after breakfast and after dinner and has hyperglycemia after lunch. Current medication regimen: NovoLog per sliding scale, Tresiba 14 units at bedtime. Novolog sliding scale for breakfast and lunch: 100-149 9 units 150-199 11 units 200-249 13 units 250-299 15 units 300-349 17 units 350 and over 19 units and call doctor Novolog sliding scale for dinner: 100-149 5 units 150-199 7 units 200-249 9 units 250-299 11 units 300-349 13 units 350 and over 15 units and call doctor Past medication: Metformin caused diarrhea. Lantus switched to Tresiba. Compliance issues: None Diet: Breakfast-cottage cheese, eggs, fruits (oranges and berries), coffee with coffee mate low sugar Lunch-sandwiches, soup, drinks diet gingerale Dinner- protein, potato, vegetable or salad and diet soda or milk Snacks/desserts: cheese and crackers No alcohol or smoking Hypoglycemia symptoms: Feels hungry and treated symptoms with hersheys kisses or orange juice Hyperglycemia symptoms: slurred speech Microvascular complications: neuropathy in feet (followed by podiatry), nephropathy Macrovascular complications: CAD. TIA Hyperlipidemia is treated with pravastatin 80 mg daily. She is having urinary frequency overnight. This has been going on at least a few weeks. Denies dysuria, fevers, chills, flank pain. She is prescribed Lasix and takes it as needed. She has not used it the past couple weeks. Sugars over night are within target range the majority of the time per CGM report. ROS: Constitutional: No unexplained weight loss, fever, chills, fatigue or night sweats. Eyes: No blurry vision Respiratory: No shortness of breath Cardiovascular: No chest pain Gastrointestinal: No nausea, vomiting or abdominal pain Neurologic: No headache, dizziness, syncope, + intermittent tingling in her toes. Endocrine: No cold or heat intolerance. No polyuria or polydipsia. Physical exam: Constitutional: Alert, in no distress. Neck: Supple, Full range of motion. No lymphadenopathy. No palpable thyroid masses. Respiratory: Clear to auscultation. Cardiovascular: S1 S2 regular. No murmurs. [facility] Medical History (Updated 05/16/25 @ 14:19 by DAYNA Hanson) Urinary frequency Type I diabetes mellitus Left bundle branch block CAD (coronary artery disease) Patellofemoral arthritis of right knee Diabetes mellitus Surgical History Hx of mastectomy Hx of mastectomy Social History Household Members: None Household Members Other:: Home alone, went to [facility] a few weeks ago Housing: House Do you presently have visiting nurse or other home services: No Patient Tobacco Use Status: Never used Tobacco Advance Directives Date on File: 11/01/24 service: No Current occupational status: retired 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 Exam Vital Signs: Last Vital Signs Pulse 69 05/16/25 13:11 BP 156/60 H 05/16/25 13:34 Pulse Ox 96 05/16/25 13:11 Oxygen Delivery Method Room Air 05/16/25 13:11 BMI result Body Mass Index 29.2 Office Procedures Glucose Monitoring Details Details: see [facility] [address] - Glucose monitoring, continuous-physician I&R Procedure code (CPT) selection complete Results Reviewed Results Reviewed: Laboratory Last Values Glucose (Clinic) 153 mg/dL (60-115) H 05/16/25 13:15 Laboratory Tests 04/04/25 15:44 C-Peptide 0.85 Islet Cell Ab Screen NEGATIVE ALEX Antibody >250 H Laboratory Tests 02/04/25 02/09/25 03/15/25 15:00 09:00 05:33 Plt Count Creatinine Estimated GFR Hemoglobin A1c % 9.3 H AST B-Natriuretic Peptide Triglycerides 138 Cholesterol 123 LDL Cholesterol, Calc 61 HDL Cholesterol 35 L TSH 2.08 Urine Protein 03/23/25 03/24/25 03/25/25 07:29 07:03 12:23 Plt Count Creatinine 0.80 0.78 1.10 Estimated GFR > 60 > 60 47 Hemoglobin A1c % AST 25 B-Natriuretic Peptide Triglycerides Cholesterol LDL Cholesterol, Calc HDL Cholesterol TSH Urine Protein 03/25/25 03/29/25 03/29/25 12:36 17:45 23:30 Plt Count Creatinine 1.16 0.98 Estimated GFR 44 53 Hemoglobin A1c % AST 25 B-Natriuretic Peptide 406 H Triglycerides Cholesterol LDL Cholesterol, Calc HDL Cholesterol TSH Urine Protein Negative 03/30/25 04:25 Plt Count 284 Creatinine 0.74 Estimated GFR > 60 Hemoglobin A1c % AST B-Natriuretic Peptide Triglycerides Cholesterol LDL Cholesterol, Calc HDL Cholesterol TSH Urine Protein Assessment & Plan Assessment & Plan (1) Type I diabetes mellitus: Code(s): E10.9 - Type 1 diabetes mellitus without complications Category: Medical Qualifiers: Diabetes mellitus complication status: with neurologic complications Diabetes mellitus complication detail: with polyneuropathy Qualified Code(s): E10.42 - Type 1 diabetes mellitus with diabetic polyneuropathy (2) Diabetic ketoacidosis: Code(s): E11.10 - Type 2 diabetes mellitus with ketoacidosis without coma Category: Medical Qualifiers: Diabetes mellitus type: type 1 Diabetes mellitus complication detail: without coma Qualified Code(s): E10.10 - Type 1 diabetes mellitus with ketoacidosis without coma (3) Diabetes mellitus with hyperglycemia: Code(s): E11.65 - Type 2 diabetes mellitus with hyperglycemia Category: Medical Qualifiers: Diabetes mellitus type: type 1 Qualified Code(s): E10.65 - Type 1 diabetes mellitus with hyperglycemia (4) Urinary frequency: Code(s): R35.0 - Frequency of micturition Category: Medical Plan In summary this is an 89-year-old female with type 1 diabetes with interval improvement in glycemic control following recent admissions for diabetic ketoacidosis with micro and macrovascular complications. Given patient's age and co-morbidities a reasonable hemoglobin A1c target is 8-8.5%. Missile Mechanic consult appreciated. She had expressed interest in an insulin pump but has changed her mind so she defers the consult with the family life educator for now. They have written instructions for treatment of hypoglycemia. She picked up the prescription for ketone urine strips and has written instructions. Decrease Tresiba from 14 to 12 units nightly. Adjust Novolog: Novolog sliding scale for lunch: 100-149 9 units 150-199 11 units 200-249 13 units 250-299 15 units 300-349 17 units 350 and over 19 units and call doctor Novolog sliding scale for breakfast and dinner: 100-149 3 units 150-199 5 units 200-249 7 units 250-299 9 units 300-349 11 units 350 and over 13 units If you continue to have low blood sugars after making these changes, please call the office. Check urinalysis and culture for UTI. Follow up in 4 weeks for type 1 diabetes with MD. Orders: Orders UA w Microscopic Today R39.9 - Unspecified symptoms and signs involving the genitourinary system Urine Culture Today R39.9 - Unspecified symptoms and signs involving the genitourinary system AMB Glucose Monitoring Today E11.9 - Type 2 diabetes mellitus without complications Medications: Changed From insulin degludec (Tresiba FlexTouch U-200 insulin) Replaces Lantus insulin. 15 units (0.075 mL) subcut BEDTIME 9 mL 5RF To insulin degludec (Tresiba FlexTouch U-200 insulin) 12 units subcut BEDTIME Patient Instructions: Decrease Tresiba 12 units at bedtime. Novolog sliding scale for lunch: 100-149 9 units 150-199 11 units 200-249 13 units 250-299 15 units 300-349 17 units 350 and over 19 units Novolog sliding scale for breakfast and dinner: 100-149 3 units 150-199 5 units 200-249 7 units 250-299 9 units 300-349 11 units 350 and over 13 units Coding Level of Care Code Est Pt Level 4 (46496) Diagnoses Type 1 diabetes mellitus with diabetic polyneuropathy E10.42 Diabetes mellitus complication status: with neurologic complications Diabetes mellitus complication detail: with polyneuropathy Diabetic ketoacidosis without coma associated with type 1 diabetes mellitus E10.10 Diabetes mellitus type: type 1 Diabetes mellitus complication detail: without coma Type 1 diabetes mellitus with hyperglycemia E10.65 Diabetes mellitus type: type 1 Urinary frequency R35.0 CPT Codes Details - CPT: 46456 - Glucose monitoring, continuous-physician I&R ([id number])
[2025-05-16 13:11] VITALS: BP 168/74; PULSE 69; O2SAT 96; BMI 29.2
[2025-05-16 13:19] LABS: Glucose, Whole Blood 153 mg/dL (60-115)
--- OUTSIDE RECORDS SUMMARY | 2025-05-16 13:23 | XMS_ITS | Data Portability ---
Author Organization [place] - [facility] Address [address] [place] [id number] Care Team Providers Care Quantitative Manager Name Role Phone PHILIPP OVIEDO Primary Care Provider [phone] [facility] OTHER Assessment Encounter Date Assessment Date Assessment LastModified by Organization Details LastModified Time 11/30/2018 11/30/2018 Overview/History : 83-year-old female, [facility], with a past medical history includes hypertension, [...] I have accessed patient records on the [employer]. This information was pertinent in my medical decision making today. Time On Scene with Patient: 00:29:06 [email or web address] Not available 11/30/2018 20:42:40 08/09/2020 08/09/2020 Overview/History: This is an 84-year-old female that is known to [facility] but new to this provider. [facility] were contacted today as the patient had [...] did discuss with the patient's nurse that [facility] would check lab work to evaluate her, no indication for IV fluids at this time. I also discussed that [facility] [employer] does not carry insulin and that management [...] after care of this patient according to [facility]'s infection prevention protocols. Lab Results BMP + [...] calcium, serum or plasma 2019 0[address] [facility], [address], [place], [address], 0 16:03:38 Referral None recorded. Procedures None recorded. Surgeries None recorded. Imaging None recorded. Medication Orders diclofenac 1 % topical gel 2019 INTERFACE [id number], [address] [place], [address], 0 16:10:01 Patient TargetsNo targets recorded. Patient Instructions Encounter Date Encounter Id Patient Instructions Last Modified By Organization Details Last Modified Time 11/30/2018 [id number] No evidence of a ny objects in your ear. Follow up with your ENT/PCP as needed. Thank you for your visit with [facility] today. We cannot always find the exact [...] in your condition between 8am-10pm, please call [facility] at [phone] to help navigate your care. Not available 11/30/2018 19:46:27 08/09/2020 [id number] WE CAME TO SEE Y OU TODAY [...] ROOM. Thank you for your visit with [facility] today. We cannot always find the exact cause of your symptoms during your initial visit. Please follow up with your primary care provider or specialist within 24-48 hours to be rechecked or seek medical attention if your symptoms do not go away or get worse. If you develop any new or worsening symptoms and need after hours care, please go to nearest ER and/or call 911. If you have additional concerns or develop a change in your condition between 8am-10pm, please call [facility] at [phone] to help navigate your care. [email or web address] Not available 08/09/2020 16:09:54 Reason for Referral None Reported. Results Created Date Observation Date Name Description Value Unit Range Abnormal Flag Note LastModifiedBy Organization Detail LastModifiedTime 08/09/20 20 08/09/2020 BMP + ioniz ed calci um, serum or plasm a glu 387 mg/dL 70-105 Not Available [facility] [address] [place], [address], 08/09/2020 16:03:38 08/09/20 20 08/09/2020 BMP + ioniz ed calci um, serum or plasm a BUN 36 mg/dL 8-26 Not Available [facility] [address] [place], [address], 08/09/2020 16:03:38 08/09/20 20 08/09/2020 BMP + ioniz ed calci um, serum or plasm a crea 1.0 mg/dL 0.6-1. 3 Not Available [facility] [address] [place], [address], 08/09/2020 16:03:38 08/09/20 20 08/09/2020 BMP + ioniz ed calci um, serum or plasm a Na 131 mmol/ L 138-14 6 Not Available [facility] [address] [place], [address], 08/09/2020 16:03:38 08/09/20 20 08/09/2020 BMP + ioniz ed calci um, serum or plasm a K 4.9 mmol/ L 3.5-4. 9 Not Available [address], [address], 08/09/2020 16:03:38 08/09/20 20 08/09/2020 BMP + ioniz ed calci um, serum or plasm a cL 95 mmol/ L 98-109 Not Available [address], [address], 08/09/2020 16:03:38 08/09/20 20 08/09/2020 BMP + ioniz ed calci um, serum or plasm a TCO2 21 mmol/ L 24- Not Available [address], [address], 08/09/2020 16:03:38 08/09/20 20 08/09/2020 BMP + ioniz ed calci um, serum or plasm a angap 20 mmol/ L 10-20 Not Available [address], [address], 08/09/2020 16:03:38 08/09/20 20 08/09/2020 BMP + ioniz ed calci um, serum or plasm a ica 1.21 mmol/ L 1.12-1 .32 Not Available [address], [address], 08/09/2020 16:03:38 08/09/20 20 08/09/2020 BMP + ioniz ed calci um, serum or plasm a HCT 40 %pcv 37-47 Not Available [address], [address], 08/09/2020 16:03:38 08/09/20 20 08/09/2020 BMP + ioniz ed calci um, serum or plasm a Hb 13.6 g/dL 12-17 Not Available [address], [address], 08/09/2020 16:03:38 Result Notes None recorded. Procedures Surgical History Date Name Laterality Status Provider Name and Address Organization Details Recorded Time 08/09/20 20 Venipuncture - DH completed DERRELL SANTANA NP [address], [place], [address], [place] [facility] 08/09/2020 18:34:12 Imaging Results None recorded. Procedure [...] Not Available Not Avai lable Fluad Quad [id number](6 5yr up)(PF) 60 mcg (15 mcg x 4)/0.5mL IM syringe PHARMACY ADMINISTE RED active Not Available Not Available No t Available Vitals Date Recorded Oxygen saturation Oxygen saturation in Arterial blood by Pulse oximetry Heart rate Body temperature Respiratory rate Systolic blood pressure Diastolic blood pressure Provider Name and Address Organization Details Last Updated DateTime 9 99 % 99 % 80 /min 98.2 [degF] 16 /min 130 mm[Hg] 62 mm[Hg] Not Available [facility] 9 18:00:59 Date Recorded Heart rate Oxygen saturation Oxygen saturation in Arterial blood by Pulse oximetry Body temperature Respiratory rate Systolic blood pressure Diastolic blood pressure Provider Name and Address Organization Details Last Updated DateTime 0 66 /min 97 % 97 % 97.5 [degF] 16 /min 146 mm[Hg] 70 mm[Hg] Not Available [facility] 0 15:35:25 Social History Question Answer Notes LastModified by Organizat ion Details LastModified Time Tobacco Smoking Status Former Smoker DOMENICO JOHN, KAELYN [address], [place], [address], [place] [facility] 11/30/2018 18:10:06 Do You Have An Advance Directive? Yes Information not available 11/30/2018 Within The Past 12 Months, Has It Happened That The Food You Bought Just Didn't Last And You Didn't Have Money To Get More. Normal [facility] Information not available 11/30/2018 Within The Past 12 Months, Have You Worried That Your Food Would Run Out Before You Got Money To Buy More. No: Trouble Affording Healthy Foods [facility] Information not available 11/30/2018 Fall Risk: Do You Feel Unsteady When Standing Or Walking? No [facility] – Information not available 11/30/2018 Marital Status [facility] – Information not available 11/30/2018 What Was The Date Of Your Most Recent Tobacco Screening? 11/30/2018 Information not available 06/09/2019 How Much Tobacco Do You Smoke? [address] [facility] Information not available 11/30/2018 How Many Years Have You Smoked Tobacco? 15 [facility] – Information not available 11/30/2018 Sex: Unknown Functional Status None recorded. Mental Status None recorded. Family History Relationship Description Onset Age of this Age Resolved Age Notes LastModified by Organization Details LastModified Time Mother Coronary arterioscler osis [facility] Not available 11/30 18:09:56 Medical History Condition Response Coronary Artery Disease N COPD N Depression N Diabetes Y Cancer N Stroke N Asthma N High Cholesterol Y Pulmonary Embolism N Hypertension Y Kidney Disease N Gynecological HistoryNo gynecological history recorded. Obstetrics History GPAL:G 0 P 0 0 0 0 Past Encounters Encounter ID Performer Location Encounter Start Date Encounter Closed Date Diagnosis/Indication Diagnosis SNOMED-CT Code Diagnosis ICD10 Code Diagnosis Note [id number] DOMENICO JOHN NP [facility] [address] [place] [address] 11/30/2018 17:52:50 12/01/2018 16:36:34 Foreign body in ear 15228429 T16.1XXA [id number] DERRELL [facility]ANTANA [facility] [address] [facility] [place] [address] 08/09/2020 15:21:51 08/10/2020 14:27:21 Hyperglycemia 58937522 R73.9 Right side sciatica 3202 727258 62067 M54.31 Health Concerns Section Related Observation LastModified by Organization Detai ls LastModified Time None Recorded Concern Status LastModified by Organization Details LastModified Time None Recorded Advance Directives Directive Y: Payers Insurance Date Sequence Insurance Name Policy Number Policy Genao Covered Member ID Genao Member ID Guarantor Name 11/30/2018 1 *SELF PAY* Lisa Crossyuli [id number] Lisa Mg 09/06/2020 2 [facility] (MEDICARE SUPPLEMENT) Lisa Trianadelroy [id number] Lisa Holliday 08/09/2020 1 [place] [employer] Lisa Torrez Kongscottyuli [id number] Lisa Mg 08/10/2020 1 MEDIC[place] [facility] Lisa A Mg [id number] Lisa Mg 09/06/2020 2 UNSPECIFIED REMIT PAYOR Lisa Crossyuli Notes Date Note Type Note Provider Name and Address Organization Details Recorded Time 11/30/2018 text/html 83-year-old female, who is new to [facility] was evaluated for possibility of foreign body in the right ear. The patient is hard of hearing and wears hearing aids to both years. While cleaning her hearing aids earlier she felt as if the silicone earpiece became embedded in her ear canal. She denies any other complaints. DOMENICO JOHN NP [address] [facility], [place], [address], [place] [facility] 12/08/2018 19:26:11 08/09/2020 text/html This is an 84-year-old female that is known to [facility] but new to this provider. She has a medical history significant for diabetes, hypertension and hyperlipidemia. The pillowcase cleaner from her PCP office had contacted [facility] because the patient had called in today [...] both the nurse and the patient that [facility] does not carry insulin nor do we [...] ears cleaned out recently. DERRELL SANTANA, KAELYN [address] [place] [address] [address], [place], [address], [place] [facility] 08/09/2020 21:29:50 OBGyn Episode No OBEpisode recorded.
--- OUTSIDE RECORDS SUMMARY | 2025-05-16 13:23 | XMS_ITS | Encounter Summary ---
Author Organization [facility] Address [address] [place] [address] Care Team Providers Care Solderer Dipper Name Role Phone Keli Dickinson MD Primary Care Provider [phone] Encounter Details Date Type Department Care Team (Late st Contact Info) Description 01/28/[address] [facility] [address] [place] [address] Keli Dickinson MD [address] [place] [address] Anemia, unspecified Social History Tobacco [...] LAB COAGULATION METHOD 01/28/2025 4:10 PM EDT [facility] Blood Venous blood specimen / Unknown Venipuncture / Unknown 01/28/2025 3:28 PM EDT 01/28/2025 3:[address] [facility] - 01/28/2025 4:10 PM EDT [...] Resul t [facility] [address] [place] [address], * (ABNORMAL) Comprehensive metabolic panel (01/28/2025 3:28 PM EDT) Sodium 135 133 - 145 mmol/L LAB [facility] Potassium 4.2 3.5 - 5.5 [...] LAB CHEMISTRY METHOD 01/28/2025 4:[address] [facility] eGFR 64 >=60 mL/min/1. 73m2 LAB CHEMISTRY METHOD 01/28/2025 4:[address] [facility] Comment:Calculation based on the Chronic Kidney Disease Epidemiology Collaboration (CKD-EPI) equation refit without adjustment for race. BUN/Creatinine Ratio 17.2 LAB CHEMISTRY METHOD 01/28/2025 4:[address] [facility] Calcium 8.7 8.5 - 10.5 mg/dL LAB CHEMISTRY METHOD 01/28/2025 4:30 PM [facility] AST (SGOT) 14 10 - 42 unit/L LAB CHEMISTRY METHOD 01/28/2025 4:30 PM [facility] ALT (SGPT) 13 10 - 60 unit/L LAB CHEMISTRY METHOD 01/28/2025 4:30 PM [facility] Alkaline Phosphatase 95 42 - 121 unit/L LAB CHEMISTRY METHOD 01/28/2025 4:[address] [facility] Total Protein 5.7(L) 6.0 - 8.0 g/dL LAB CHEMISTRY METHOD 01/28/2025 4:30 PM [facility] Albumin 2.8(L) 3.2 - 5.0 g/dL LAB CHEMISTRY METHOD 01/28/2025 4:[address] [facility] Total Bilirubin 0.4 0.0 - 1.4 mg/dL LAB CHEMISTRY METHOD 01/28/2025 4:[address] [facility] Blood Venous blood specimen / Unknown Venipuncture / Unknown 01/28/2025 3:28 PM EDT 01/28/2025 3:54 PM EDT us Keli Dickinson MD LAB BLOOD ORDERABLES Final Resul t [facility] [address] [place] [address], [place] [phone] * (ABNORMAL) Complete blood count (01/28/2025 3:28 PM EDT) [facility] Signature WBC 7.9 4.8 - 10.8 K/mcL LAB HEMETOLOGY [facility] RBC 4.20 3.80 - 4.80 M/mcL LAB HEMETOLOGY METHOD [facility] Hemoglobin 10.5(L) 11.5 - 16.0 g/dL LAB HEMETOLOGY METHOD 01/28/2025 4:06 PM [facility] Hematocrit 33.2(L) 35.0 - 47.0 % LAB HEMETOLOGY METHOD 01/28/2025 4:06 PM [facility] MCV 79.6 79.0 - 98.0 FL LAB HEMETOLOGY METHOD 01/28/2025 4:06 PM [facility] MCH 25.2(L) 27.0 - 32.0 pcg LAB HEMETOLOGY METHOD 01/28/2025 4:06 PM [facility] MCHC 31.6(L) 32.0 - 37.0 g/dL LAB HEMETOLOGY METHOD 01/28/2025 4:06 PM [facility] RDW 15.2(H) 11.0 - 15.0 % LAB HEMETOLOGY METHOD 01/28/2025 4:06 PM [facility] Platelets 233 130 - 400 K/mcL LAB HEMETOLOGY METHOD 01/28/2025 4:06 PM [facility] MPV 11.1(H) 7.0 - 11.0 FL LAB HEMETOLOGY METHOD 01/28/2025 4:06 PM [facility] NRBC 0.0 <1.0 % LAB HEMETOLOGY METHOD 01/28/2025 4:[address] [facility] NRBC Absolute 0.00 <0.10 K/mcL LAB HEMETOLOGY METHOD 01/28/2025 4:[address] [facility] Blood Venous blood specimen / Unknown Venipuncture / Unknown 01/28/2025 3:28 PM EDT 01/28/2025 3:54 PM EDT us Keli Dickinson MD LAB BLOOD ORDERABLES Final Resul t [facility] [address] [place] [address], documented in this encounter Visit Diagnoses Diagnosis Anemia, unspecified documented in this encounter Additional Health Concerns 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
[2025-05-16 13:34] VITALS: BP 156/60
== END 2025-05-16 13:44 | disposition home or self-care (01) ==
LOC: HO.ENCR 12:31
PROVIDERS: PCP Internal Medicine; Visit Provider Physician Assistant Medical
DX: E10.42 Type 1 diabetes mellitus with diabetic polyneuropathy (principal); E10.10 Type 1 diabetes mellitus with ketoacidosis without coma; E10.65 Type 1 diabetes mellitus with hyperglycemia; R35.0 Frequency of micturition

== ENCOUNTER 2025-08-10 10:24 | Outpatient (AMB) | payer MEDICARE, OTHER, SELFPAY ==
[2025-08-10 10:27] VITALS: BP 150/56; PULSE 54; O2SAT 98; BMI 29.3
--- NOTE | 2025-08-10 10:27 | A.OFFVIS_ITS ---
Vital Signs 3 08/10/25 10:27 Height 5 ft 4 in Weight 170 lb 13.732 oz BMI 29.3 BP 150/56 H Blood Pressure Location Lt brachial Position Sitting Pulse 54 Pulse Source Pulse Oximeter Pulse Oximetry (%) 98 Oxygen Delivery Method Room Air Intake Visit Reasons: Type I diabetes Intake Note: Patient present today for Type 1 Diabetes Mellitus Last Diabetic eye exam: Last exam was about a year ago. 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 Required: No Accompanied by: Grand Child Allergies adhesive tape (Adhesive Tape) Allergy (Unknown, Verified 08/10/25 10:36) SKIN REDNESS Medication List - Last Reconciled 08/10/25 by Blessing Archuleta MD acetaminophen (Tylenol) 650 mg PO Q4-6H PRN acetone (urine) test (Ketone Urine Test strips) As directed blood-glucose sensor (FreeStyle Anna 3 Sensor device) As directed every 15 days blood-glucose,information systems professor,cont (FreeStyle Anna 3 Terrell) As directed calcium carbonate 500 mg PO BID cyanocobalamin (vitamin B-12) 100 mcg PO DAILY dextrose (TRUEplus Glucose) 15 grams (32 mL) PO Q15M PRN furosemide 20 mg PO DAILY PRN hydralazine 10 mg PO BEDTIME PRN insulin aspart U-100 (Novolog FlexPen U-100 Insulin aspart) See Protocol sliding scale doses subcut TIDWM insulin degludec (Tresiba FlexTouch U-200 insulin) 12 units (0.06 mL) subcut BEDTIME levothyroxine 112 mcg PO DAILY@0600 nystatin (Nyamyc) 1 appl See Protocol topical TID PRN omeprazole 20 mg PO DAILY@0630 pravastatin 80 mg PO BEDTIME zinc sulfate 220 mg PO DAILY HPI Comments Details: This is an 89-year-old female with a past medical history of CHF, type 1 diabetes mellitus, orthostatic hypotension, sinus bradycardia, left bundle branch block presenting for diabetes management. She is here with her granddaughter, Amparo. Last seen by Aida MCINTOSH May 2025 She was diagnosed with diabetes 39 years ago. Patient disclosed initially that though her chart read type II diabetes about 5 years ago she saw an director of campus recreation who said she had type 1 diabetes. She had C-peptide, ALEX antibody and islet cell antibody drawn since her last visit, and her blood work is consistent with type 1 diabetes. Patient had recurrent admissions for DKA but none since initial visit at our practice in March 2025. Random Glucose: 187 mg/dl Hemoglobin a1c 8.6% 08/10/25 9.3% 03/15/2025. Freestyle Anna 3 downloaded from July 28 to 08/10/2025 Time CGM active 90% Average glucose 226 mg/dL G NC 8.7% Glucose variability 30% Within target range 24% High 42% Very high 34% Low 0% Very low 0% Interpretation: She is hyperglycemic throughout the day with postprandial hyperglycemia with blood sugars in the 200s and 300s. Overnight patterns are inconsistent, Sundays she is running high, with a few lows overnight 1 or 2 days. Tresiba 12 units nightly. Adjust Novolog: Novolog sliding scale for lunch: 100-149 9 units 150-199 11 units 200-249 13 units 250-299 15 units 300-349 17 units 350 and over 19 units and call doctor Novolog sliding scale for breakfast and dinner: 100-149 3 units 150-199 5 units 200-249 7 units 250-299 9 units 300-349 11 units 350 and over 13 units Past medication: Metformin caused diarrhea. Compliance issues: None Diet: Breakfast-cottage cheese, eggs, fruits (oranges and berries), coffee with coffee mate low sugar Lunch-sandwiches, soup, drinks diet gingerale Dinner- protein, potato, vegetable or salad and diet soda or milk Snacks/desserts: cheese and crackers No alcohol or smoking Hypoglycemia symptoms: Feels hungry and treated symptoms with hersheys kisses or orange juice Hyperglycemia symptoms: slurred speech Microvascular complications: No history of retinopathy, last eye visit: 2023, almost a year ago Has neuropathy in feet (followed by podiatry), last seen July 2025 History of nephropathy?, no microalbumin in the chart, EGFR greater than 60 from March 2025 Macrovascular complications: CAD. TIA Hyperlipidemia is treated with pravastatin 80 mg daily. LDL 61 mg/dL January 2025 Physical exam: Constitutional: Alert, in no distress. Neck: Supple, Respiratory: Clear to auscultation. Cardiovascular: S1 S2 regular. No murmurs. Laboratory Tests 02/04/25 03/29/25 03/30/25 15:00 17:45 04:25 Hgb Hct Creatinine 0.74 Estimated GFR > 60 Glucose (Clinic) C-Peptide AST 25 ALT 9 LDL Cholesterol, Calc 61 03/30/25 04/04/25 04/18/25 14:14 15:44 13:15 Hgb 9.6 L Hct 29.8 L Creatinine Estimated GFR Glucose (Clinic) 276 H C-Peptide 0.85 AST ALT LDL Cholesterol, Calc 05/16/25 13:15 Hgb Hct Creatinine Estimated GFR Glucose (Clinic) 153 H C-Peptide AST ALT LDL Cholesterol, Calc PFSH Medical History (Updated 05/16/25 @ 14:19 by DAYNA Hanson) Urinary frequency Type I diabetes mellitus Left bundle branch block CAD (coronary artery disease) Patellofemoral arthritis of right knee Diabetes mellitus Surgical History Hx of mastectomy Hx of mastectomy Social History Household Members: None Household Members Other:: Home alone, went to [facility] a few weeks ago Housing: House Do you presently have visiting nurse or other home services: No Patient Tobacco Use Status: Never used Tobacco Advance Directives Date on File: 11/01/24 service: No Current occupational status: retired 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 Given patient's age and co-morbidities a reasonable hemoglobin A1c target is 8-8.5%. A1c POC 08/10/2025: 8.6% which is down from 9.3% in February 2025. [employer]form[employer] Developer consult appreciated. She had expressed interest in an insulin pump but has changed her mind so she defers the consult with the family life educator for now. They have written instructions for treatment of hypoglycemia. She picked up the prescription for ketone urine strips and has written instructions. CGM data showed She is hyperglycemic throughout the day with postprandial hyperglycemia with blood sugars in the 200s and 300s. Overnight patterns are inconsistent, Sundays she is running high, with a few lows overnight 1 or 2 days. Plan: -continue Tresiba f 12 units nightly. Adjust Novolog: Novolog sliding scale for lunch: 100-149 10 units 150-199 12 units 200-249 15 units 250-299 17 units 300-349 19 units 350 and over 19 units and call doctor Novolog sliding scale for breakfast and dinner: 100-149 5 units 150-199 5 units 200-249 9 units 250-299 9 units 300-349 13 units 350 and over 13 units (2) Diabetic ketoacidosis: Code(s): E11.10 - Type 2 diabetes mellitus with ketoacidosis without coma Category: Medical Qualifiers: Diabetes mellitus complication detail: without coma Diabetes mellitus type: type 1 Qualified Code(s): E10.10 - Type 1 diabetes mellitus with ketoacidosis without coma Plan: See above (3) Diabetes mellitus with hyperglycemia: Code(s): E11.65 - Type 2 diabetes mellitus with hyperglycemia Category: Medical Qualifiers: Diabetes mellitus type: type 1 Qualified Code(s): E10.65 - Type 1 diabetes mellitus with hyperglycemia Plan: See above Plan I spent 30 minutes in reviewing the record, seeing the patient and documenting in the medical record. Orders: Orders 2 AMB Hemoglobin A1c Today E10.65 - Type 1 diabetes mellitus with hyperglycemia, Z13.9 - Encounter for screening, unspecified AMB Glucose Monitoring Today E10.42 - Type 1 diabetes mellitus with diabetic polyneuropathy, E10.65 - Type 1 diabetes mellitus with hyperglycemia TSH reflex Free T4 6 Weeks E10.42 - Type 1 diabetes mellitus with diabetic polyneuropathy, E10.65 - Type 1 diabetes mellitus with hyperglycemia Lipid Panel 6 Weeks E10.42 - Type 1 diabetes mellitus with diabetic polyneuropathy, E10.65 - Type 1 diabetes mellitus with hyperglycemia Microalbumin, Random (w Creat) 6 Weeks E10.42 - Type 1 diabetes mellitus with diabetic polyneuropathy, E10.65 - Type 1 diabetes mellitus with hyperglycemia Aspartate Amino Transferase 6 Weeks E10.42 - Type 1 diabetes mellitus with diabetic polyneuropathy, E10.65 - Type 1 diabetes mellitus with hyperglycemia Alanine Aminotransferase 6 Weeks E10.42 - Type 1 diabetes mellitus with diabetic polyneuropathy, E10.65 - Type 1 diabetes mellitus with hyperglycemia Creatinine 6 Weeks E10.42 - Type 1 diabetes mellitus with diabetic polyneuropathy, E10.65 - Type 1 diabetes mellitus with hyperglycemia Patient Instructions: Continue Tresiba 12 units at bedtime Novolog sliding scale for lunch: 100-149 10 units 150-199 12 units 200-249 15 units 250-299 17 units 300-349 19 units 350 and over 19 units and call doctor Novolog sliding scale for breakfast and dinner: 100-149 5 units 150-199 5 units 200-249 9 units 250-299 9 units 300-349 13 units 350 and over 13 units Coding Level of Care Code Est Pt Level 4 (42750) Diagnoses Type 1 diabetes mellitus with diabetic polyneuropathy E10.42 Diabetes mellitus complication status: with neurologic complications Diabetes mellitus complication detail: with polyneuropathy Diabetic ketoacidosis without coma associated with type 1 diabetes mellitus E10.10 Diabetes mellitus complication detail: without coma Diabetes mellitus type: type 1 Type 1 diabetes mellitus with hyperglycemia E10.65 Diabetes mellitus type: type 1 CPT Codes Details - CPT: 61599 - Glucose monitoring, continuous-physician I&R ([id number]) Time Spent (min) 30
[2025-08-10 10:42] LABS: Glucose, Whole Blood 187 mg/dL (60-115)
== END 2025-08-10 11:04 | disposition home or self-care (01) ==
LOC: HO.ENCR 10:25
PROVIDERS: PCP Internal Medicine; Visit Provider Student in an Organized Health Care Education/Training Program
DX: E10.42 Type 1 diabetes mellitus with diabetic polyneuropathy (principal); E10.10 Type 1 diabetes mellitus with ketoacidosis without coma; E10.65 Type 1 diabetes mellitus with hyperglycemia; Z13.9 Encounter for screening, unspecified
CPT/HCPCS: 95251; 99214

== ENCOUNTER → 2025-08-10 10:24 | Outpatient (BNVA) | payer MEDICARE, OTHER, SELFPAY | PROVIDERS: PCP Internal Medicine; Visit Provider Student in an Organized Health Care Education/Training Program | DX: E10.42 Type 1 diabetes mellitus with diabetic polyneuropathy (principal); E10.10 Type 1 diabetes mellitus with ketoacidosis without coma; Z79.4 Long term (current) use of insulin | CPT/HCPCS: 82947; 83036; 99212 ==

== ENCOUNTER 2025-10-20 15:06 | Outpatient (AMB) | payer MEDICARE, OTHER, SELFPAY ==
--- NOTE | 2025-10-20 15:09 | A.OFFVIS_ITS ---
Vital Signs 3 10/20/25 15:11 Height 5 ft 4 in Weight 167 lb 8.821 oz BMI 28.8 BP 132/68 Blood Pressure Location Rt brachial Position Sitting Pulse 54 Pulse Source Pulse Oximeter Pulse Oximetry (%) 94 Oxygen Delivery Method Room Air Intake Visit Reasons: Type I diabetes Intake Note: Patient present today for a follow-up on Type 1 Diabetes Mellitus Insulin Pump: Last seen by DR Geremias MD. Last Diabetic eye exam: Pt did not attend the scheduled appt due to being in rehab. Pt reports they will reschedule and attend a new appt. Last Podiatry Visit: 07/2025, Dr. Raphael Farley Most Recent HgA1C: 8.6%, 08/10/2025 Random Glucose: 192 mg/dL Roller Skater Required: No Accompanied by: Self / Same As Patient Allergies adhesive tape (Adhesive Tape) Allergy (Unknown, Verified 10/20/25 15:09) SKIN REDNESS HPI Comments Details: This is an 89-year-old female with a past medical history of CHF, type 1 diabetes mellitus, orthostatic hypotension, sinus bradycardia, left bundle branch block presenting for diabetes management. She is here with her granddaughter, Amparo. Last seen by Dr. Archuleta 08/10/25, this is my first time seen this patient. She was diagnosed with diabetes 39 years ago. Patient disclosed initially that though her chart read type II diabetes about 5 years ago she saw an bench assembler electrical who said she had type 1 diabetes. She had C-peptide, ALEX antibody and islet cell antibody drawn since her last visit, and her blood work is consistent with type 1 diabetes. Patient had recurrent admissions for DKA but none since initial visit at our practice in March 2025. Random Glucose: 187 mg/dl Hemoglobin a1c 8.6% 08/10/25 9.3% 03/15/2025. CGM data: Interpretation: Persisntent hyperglycemia, improved from previous visit. She does have sporadic hypoglycemic episodes scattered throughout the day. Tresiba 12 units nightly. Adjust Novolog: Novolog sliding scale for lunch: 100-149 9 units 150-199 11 units 200-249 13 units 250-299 15 units 300-349 17 units 350 and over 19 units and call doctor Novolog sliding scale for breakfast and dinner: 100-149 3 units 150-199 5 units 200-249 7 units 250-299 9 units 300-349 11 units 350 and over 13 units Past medication: Metformin caused diarrhea. Compliance issues: None Diet: Breakfast-cottage cheese, eggs, fruits (oranges and berries), coffee with coffee mate low sugar Lunch-sandwiches, soup, drinks diet gingerale Dinner- protein, potato, vegetable or salad and diet soda or milk Snacks/desserts: cheese and crackers No alcohol or smoking Hypoglycemia symptoms: Feels hungry and treated symptoms with hersheys kisses or orange juice Hyperglycemia symptoms: slurred speech Microvascular complications: No history of retinopathy, last eye visit: 2023, almost a year ago. Pending. Has neuropathy in feet (followed by podiatry), last seen July 2025 History of nephropathy?, no microalbumin in the chart, EGFR greater than 60 from March 2025 Macrovascular complications: CAD. TIA Hyperlipidemia is treated with pravastatin 80 mg daily. LDL 61 mg/dL January 2025 Interval history: No more DKA admissions Using Tresiba 12 units before bed Novolog: based on sliding scale No specific trigger for the hypoglycemia Reports intermittent tingling numbness in her feet She does have bilateral hip replacements, both fractures due to falling from her feet. This is likely indiactive of osteoporosis, but would need to be addressed in a different appointment. Physical exam: General: Well appearing. NAD. Not Cushingoid or Acromegalic Neck/Thyroid: Thyroid not palpable, no nodules. CV: RRR, no murmur. No edema. Resp:Lungs clear to auscultation bilaterally Abdomen: Soft, nontender. nondistended Extremities/Neuro: No weakness or tremor of outstretched hands Laboratory Tests 02/04/25 03/29/25 03/30/25 15:00 17:45 04:25 Hgb Hct Creatinine 0.74 Estimated GFR > 60 Glucose (Clinic) C-Peptide AST 25 ALT 9 LDL Cholesterol, Calc 61 03/30/25 04/04/25 04/18/25 14:14 15:44 13:15 Hgb 9.6 L Hct 29.8 L Creatinine Estimated GFR Glucose (Clinic) 276 H C-Peptide 0.85 AST ALT LDL Cholesterol, Calc 05/16/25 13:15 Hgb Hct Creatinine Estimated GFR Glucose (Clinic) 153 H C-Peptide AST ALT LDL Cholesterol, Calc PFSH Medical History (Updated 05/16/25 @ 14:19 by DAYNA Hanson) Urinary frequency Type I diabetes mellitus Left bundle branch block CAD (coronary artery disease) Patellofemoral arthritis of right knee Diabetes mellitus Surgical History Hx of mastectomy Hx of mastectomy Family History (Updated 10/20/25 @ 15:10 by MILIND Marques) Father No problems noted. Mother No problems noted. 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 Exam Vital Signs: Last Vital Signs Pulse 54 10/20/25 15:11 BP 132/68 10/20/25 15:11 Pulse Ox 94 10/20/25 15:11 Oxygen Delivery Method Room Air 10/20/25 15:11 BMI result Body Mass Index 28.8 Office Procedures Glucose Monitoring Details Details: See [facility] [id number] - Glucose Monitoring, continuous Procedure code (CPT) selection complete Assessment & Plan Assessment & Plan (1) Type I diabetes mellitus: Code(s): E10.9 - Type 1 diabetes mellitus without complications Category: Medical Qualifiers: Diabetes mellitus complication detail: with polyneuropathy Diabetes mellitus complication status: with neurologic complications Qualified Code(s): E10.42 - Type 1 diabetes mellitus with diabetic polyneuropathy Plan: 89-year-old femalewith type 1 diabetes mellitus with interval improvement in glycemic control following recent admissions for diabetic ketoacidosis with micro and macrovascular complications. Given patient's age and co-morbidities a reasonable hemoglobin A1c target is 8-8.5%. A1c POC 08/10/2025: 8.6% which is down from 9.3% in February 2025. They have written instructions for treatment of hypoglycemia. She has not been seeing by the dietitian Overall she has better controlled BG, but she still have variable BG, mostly hyperglycemia with scattered episodes of hypoglycemia with no specific, trigger. We will make small adjustments to her insulin regimen. Plan: -continue Tresiba f 12 units nightly. -adjust Novolog based on SS provided in patient instructions. -We discussed dietary recommendations, specially finding sugar free or low carb alternatives for things she likes -Follow up in 3 months (2) Diabetic ketoacidosis: Code(s): E11.10 - Type 2 diabetes mellitus with ketoacidosis without coma Category: Medical Qualifiers: Diabetes mellitus complication detail: without coma Diabetes mellitus type: type 1 Qualified Code(s): E10.10 - Type 1 diabetes mellitus with ketoacidosis without coma Plan: See above (3) Diabetes mellitus with hyperglycemia: Code(s): E11.65 - Type 2 diabetes mellitus with hyperglycemia Category: Medical Qualifiers: Diabetes mellitus type: type 1 Qualified Code(s): E10.65 - Type 1 diabetes mellitus with hyperglycemia Plan: See above Plan I spent 30 minutes in reviewing the record, seeing the patient and documenting in the medical record. Orders: Orders 2 AMB Glucose Monitoring Today E10.10 - Type 1 diabetes mellitus with ketoacidosis without coma, E10.42 - Type 1 diabetes mellitus with diabetic polyneuropathy Patient Instructions: Continue Tresiba 12 units Novolg based on SS: LUNCH BREAKFAST AND DINNER Coding Level of Care Code Est Pt Level 4 (87207) Diagnoses Type 1 diabetes mellitus with diabetic polyneuropathy E10.42 Diabetes mellitus complication detail: with polyneuropathy Diabetes mellitus complication status: with neurologic complications Diabetic ketoacidosis without coma associated with type 1 diabetes mellitus E10.10 Diabetes mellitus complication detail: without coma Diabetes mellitus type: type 1 Type 1 diabetes mellitus with hyperglycemia E10.65 Diabetes mellitus type: type 1 CPT Codes Details - CPT: 54715 - Glucose Monitoring, continuous ([id number])
[2025-10-20 15:11] VITALS: BP 132/68; PULSE 54; O2SAT 94; BMI 28.8
[2025-10-20 15:23] LABS: Glucose, Whole Blood 192 mg/dL (60-115)
--- OUTSIDE RECORDS SUMMARY | 2025-10-20 19:09 | XMS_ITS | Data Portability ---
Author Organization [place] [facility] Address [address] [place] [address] Care Team Providers Care Coil Spring Assembler Name Role Phone PHILIPP OVIEDO Primary Care Provider [facility] OTHER [phone] Assessment Encounter Date Assessment Date Assessment LastModified by Organization Details LastModified Time 11/30/2018 11/30/2018 Overview/History : 83-year-old female, [facility], with a past medical history includes [...] I have accessed patient records on the [employer]. This information was pertinent in my medical decision making today. Time On Scene with Patient: 00:29:06 [email or web address] Not available 11/30/2018 20:42:40 08/09/2020 08/09/2020 Overview/History: This is an 84-year-old female that is known to [facility] but new to this provider. [facility] were contacted today as the patient had [...] did discuss with the patient's nurse that [facility] would check lab work to evaluate her, no indication for IV fluids at this time. I also discussed that [facility] [employer] does not carry insulin and that management [...] after care of this patient according to [facility] infection prevention protocols. Lab Results [...] 12-17 Time On Scene with Patient: 00:48:48 [email or web address] Not available 08/09/2020 21:29:37 Plan of Treatment Reminders Order Date Submit Date Provider Last Modified By Organization Details Last Modified Time Details Appointments None recorded. Lab BMP + ionized calcium, serum or plasma 2019 [facility] [address], [place], [address], 0 16:03:38 Referral None recorded. Procedures None recorded. Surgeries None recorded. Imaging None recorded. Medication Orders diclofenac 1 % topical gel 2019 INTERFACE [id number], [address] [place], [address], 0 16:10:01 Patient TargetsNo targets recorded. Patient Instructions Encounter Date Encounter Id Patient Instructions Last Modified By Organization Details Last Modified Time 11/30/2018 [id number] No evidence of a ny objects in your ear. Follow up with your ENT/PCP as needed. Thank you [facility] your [facility] today. We cannot always find [...] in your condition between 8am-10pm, please call [facility] at [phone] to help navigate your care. Not available 11/30/2018 19:46:27 08/09/2020 [id number] WE CAME TO SEE Y OU TODAY [...] ROOM. Thank you for your [facility] today. We cannot always find [...] in your condition between 8am-10pm, please call [facility] at [phone] to help navigate your care. [email or web address] Not available 08/09/2020 16:09:54 Reason for Referral None Reported. Results Created Date Observation Date Name Description Value Unit Range Abnormal Flag Note LastModifiedBy Organization Detail LastModifiedTime 08/09/20 20 08/09/2020 BMP + ioniz ed calci um, serum or plasm a glu 387 mg/dL 70-105 Not Available [facility] [address] [place], [address], 08/09/2020 16:03:38 08/09/20 20 08/09/2020 BMP + ioniz ed calci um, serum or plasm a BUN 36 mg/dL 8-26 Not Available [facility] [address] [place], [address], 08/09/2020 16:03:38 08/09/20 20 08/09/2020 BMP + ioniz ed calci um, serum or plasm a crea 1.0 mg/dL 0.6-1. 3 Not Available [facility] [address] [place], [address], 08/09/2020 16:03:38 08/09/20 20 08/09/2020 BMP + ioniz ed calci um, serum or plasm a Na 131 mmol/ L 138-14 6 Not Available [facility] [address] [place], [address], 08/09/2020 16:03:38 08/09/20 20 08/09/2020 BMP + ioniz ed calci um, serum or plasm a K 4.9 mmol/ L 3.5-4. 9 Not Available [address], [address], 08/09/2020 16:03:38 08/09/20 20 08/09/2020 BMP + ioniz ed calci um, serum or plasm a cL 95 mmol/ L 98-109 Not Available [address], [address], 08/09/2020 16:03:38 08/09/20 20 08/09/2020 BMP + ioniz ed calci um, serum or plasm a TCO2 21 mmol/ L 24- Not Available [address], [address], 08/09/2020 16:03:38 08/09/20 20 08/09/2020 BMP + ioniz ed calci um, serum or plasm a angap 20 mmol/ L 10-20 Not Available [address], [address], 08/09/2020 16:03:38 08/09/20 20 08/09/2020 BMP + ioniz ed calci um, serum or plasm a ica 1.21 mmol/ L 1.12-1 .32 Not Available [address], [address], 08/09/2020 16:03:38 08/09/20 20 08/09/2020 BMP + ioniz ed calci um, serum or plasm a HCT 40 %pcv 37-47 Not Available [address], [address], 08/09/2020 16:03:38 08/09/20 20 08/09/2020 BMP + ioniz ed calci um, serum or plasm a Hb 13.6 g/dL 12-17 Not Available [address], [address], 08/09/2020 16:03:38 Result Notes None recorded. Procedures Surgical History Date Name Laterality Status Provider Name and Address Organization Details Recorded Time 08/09/20 20 Venipuncture - DH completed DERRELL SANTANA NP [address], [place], [address], [place] [facility] 08/09/2020 18:34:12 Imaging Results None [...] Not Available Not Avai lable Fluad Quad 5118-5050(6 5yr up)(PF) 60 mcg (15 mcg x 4)/0.5mL IM syringe [facility] active Not Available Not Available No t Available Vitals Date Recorded Oxygen saturation Heart rate Body temperature Respiratory rate Systolic And Diastolic Provider Name and Address Organization Details Last Updated DateTime 9 99 % 80 /min 98.2 [degF] 16 /min 130/62 mm[Hg] Not Available [facility] 9 18:00:59 Date Recorded Heart rate Oxygen saturation Body temperature Respiratory rate Systolic And Diastolic Provider Name and Address Organization Details Last Updated DateTime 0 66 /min 97 % 97.5 [degF] 16 /min 146/70 mm[Hg] Not Available [facility] 0 15:35:25 Social History Question Answer Notes LastModified by Organizat ion Details LastModified Time Tobacco Smoking Status Former Smoker DOMENICO JOHN NP [address], [place], [address], [place] [facility] 11/30/2018 18:10:06 Do You Have An Advance Directive? Yes Information not available 11/30/2018 Within The Past 12 Months, Has It Happened That The Food You Bought Just Didn't Last And You Didn't Have Money To Get More. Normal [facility] Information not available 11/30/2018 Within The Past 12 Months, Have You Worried That Your Food Would Run Out Before You Got Money To Buy More. No: Trouble Affording Healthy Foods [facility] – Information not available 11/30/2018 Fall Risk: Do You Feel Unsteady When Standing Or Walking? No [facility] – Information not available 11/30/2018 Marital Status [facility] Information not available 11/30/2018 What Was The Date Of Your Most Recent Tobacco Screening? 11/30/2018 Information not available 06/09/2019 How Much Tobacco Do You Smoke? 1 PPW [facility] – Information not available 11/30/2018 How Many Years Have You Smoked Tobacco? 15 [facility] – Information not available 11/30/2018 Sex: Unknown Functional Status None recorded. Mental Status None recorded. Family History Relationship Description Onset Age of this Age Resolved Age Notes LastModified by Organization Details LastModified Time Mother Coronary arterioscler osis [email or web address] Not available 11/30 18:09:56 Medical History Condition [...] Diagnosis SNOMED-CT Code Diagnosis ICD10 Code Diagnosis IMO Codes Diagnosis Note [id number] DOMENICO JOHN NP [facility] [address] [place] [address] 11/30/2018 17:52:50 12/01/2018 16:36:34 Foreign body in ear 04041502 T16.1XXA [id number] DERRELL SANTANA NP [facility] [address] [place] [address] 08/09/2020 15:21:51 08/10/2020 14:27:21 Hyperglycemia 66324765 R73.9 Right side sciatica 3202 [id number] 69961 M54.31 Health Concerns Section Related Observation LastModified by Organization Detai ls LastModified Time None Recorded Concern Status LastModified by Organization Details LastModified Time None Recorded Advance Directives Directive Y: Payers Insurance Date Sequence Insurance Name Policy Number Policy Genao Covered Member ID Genao Member ID Guarantor Name 11/30/2018 1 *SELF PAY* Lisa Holliday [id number] Lisa Mg 09/06/2020 2 [facility] (MEDICARE SUPPLEMENT) Lisa Holliday [id number] Lisa Trianahilariaallyyuli 08/09/2020 1 [place] [facility] Lisa Holliday [id number] Lisa Trianahilariaallyyuli 08/10/2020 1 [place] [facility] Lisa Holliday [id number] Lisaantonio Crossyuli 09/06/2020 2 UNSPECIFIED REMIT PAYOR Lisa Holliday Notes Date Note Type Note Provider Name and Address Organization Details Recorded Time 11/30/2018 text/html 83-year-old female, who is new to [facility] was evaluated for possibility of foreign body in the right ear. The patient is hard of hearing and wears hearing aids to both years. While cleaning her hearing aids earlier she felt as if the silicone earpiece became embedded in her ear canal. She denies any other complaints. DOMENICO JOHN NP [address] [place] [address], [address], [place] [facility] 12/08/2018 19:26:11 08/09/2020 text/html This is an 84-year-old female that is known to [facility] but new to this provider. She has a medical history significant for diabetes, hypertension and hyperlipidemia. The adult protective caseworker from her PCP office had [facility] because the patient had called in [...] both the nurse and the patient that [facility] does not carry insulin nor do we [...] cleaned out recently. DERRELL SANTANA, KAELYN [address], [place], [address], [place] [facility] 08/09/2020 21:29:50 OBGyn Episode No OBEpisode recorded.
--- OUTSIDE RECORDS SUMMARY | 2025-10-20 19:09 | XMS_ITS | Data Portability ---
Author Organization [place] - [facility], Allergy Address [address] [address] Care Team Providers Care Warper Fixer Name Role Phone PHILIPP OVIEDO Primary Care [...] audiometric testing. [email or web address] Not available 07/26/2024 11:55:07 06/30/2025 06/30/2025 Follow up with referring provider. 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 Cerumen impactions removed bilaterally. Otologic exam demonstrates right TM is intact and left TM with stable perforation. Middle ear spaces are well-aerated. 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 Word recognition has significantly decreased. Recommend adjusting or updating her hearing aids with [employer] in [place]. Also recommend wearing the aids everyday. Follow up in one year for repeat audiometric testing. [email or web address] Not available 06/30/2025 12:24:38 Plan of Treatment Reminders Order Date Submit Date Provider Last Modified By Organization Details Last Modified Time Details Appointments None record ed. Lab None record ed. Referral None record ed. Procedures None record ed. Surgeries None record ed. Imaging None record ed. Medication Orders None record ed. Patient TargetsNo targets recorded. Patient InstructionsNo instructions recorded. Reason for Referral None Reported. Results Created Date Observation Date Name Description Value Unit Range Abnormal Flag Note LastModifiedBy Organization Detail LastModifiedTime 06/30/20 25 audio gram No observ ation record ed. BARCODE Not Available 2024 13:42:43 Result Notes None recorded. Problems Name Problem SNOMED Code Status Onset Date Resolution Date Notes Provider Name and Address Organization Details Recorded Time Impacted cerumen 08795516 Active 2013 Impacted cerumen; CMS Risk: low risk [facility] Treatment : new problem (to examiner) : no additiona l workup planned Not Available [facility] 4 02:40:16 Sensorine ural hearing loss of bilateral ears 665875603 Active 2015 Sensorine ural hearing loss, bilateral ; Note: Date Diagnosed : 6 1:22 PM (H90.3) Not Available [facility] 4 02:40:08 Impacted cerumen of bilateral ears 18986550228 13803 Active 2015 Impacted cerumen, bilateral ; Note: Date Diagnosed : 6 12:21 PM (H61.23) Not Available [facility] 4 02:40:14 Otitis media of left ear 70334758093 52719 Active 2019 Otitis media, unspecifi ed, left ear; Note: Date Diagnosed : 03/22/2020 9:49 AM (H66.92) Not Available [facility] 4 02:40:08 Otorrhea of left ear 27936432086 18207 Active 2019 Otorrhea, left ear; Note: Date Diagnosed : 04/23/2020 3:37 PM (H92.12) Not Available [facility] 4 02:40:13 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 78148136260 10994 Active 2019 Central perforati on of tympanic membrane, left ear; Note: Date Diagnosed : 06/27/2020 1:43 PM (H72.02) Not Available [facility] 4 02:40:11 Impacted cerumen in right ear 78189280236 41547 Active 2021 Impacted cerumen, right ear; Note: Date Diagnosed : 07/14/2022 1:28 PM (H61.21) Not Available [facility] 4 02:40:09 Mixed conductiv e AND sensorine ural hearing loss 18362544 Active 2024 YANET WILLIAMSON, Keegan [address] [facility],[place] [address], [place], [address] , [facility] - [facility] 5 11:03:18 Problem Notes None recorded. Procedures Surgical History Date Name Laterality Status Provider Name and Address Organization Details Recorded Time 5 Comp Audio with Tymps - 00826 & 54373 completed YANET WILLIAMSON, AuD [address] [facility],[place] [address], [place], [address], [facility] 06/30/2025 10:22:04 5 Cerumen removal without microscope bilat completed LIANET FORRESTER PA-C [address] [facility],[place] [address], [place], [address], [facility] - [facility] 06/30/2025 09:36:57 4 Cerumen removal without microscope bilat completed Linda Desai [place] - [facility] 07/26/2024 11:54:29 Imaging Results None recorded. Procedure Notes None recorded. Medical Equipment None Reported. Allergies No known drug allergies Medications Name Sig Start Date Stop Date Status Note LastModified by Organization Details LastModified Time nifedipin e ER 30 mg tablet,ex tended release 24 hr 03/21 completed Medicati on ID: [id number] Du ration Value: 90 Reason: () Brand Name: nifedipi ne Send Method: E-Prescr ibed Sub s Allowed: subs OK Speci al Instruct ion: TAKE 1 TABLET BY MOUTH EVERY DAY Medi cationGe nericNam e: nifedipi ne Not Available Not Available Not Available amoxicill in 500 mg capsule TAKE 4 CAPSULES BY MOUTH ONE HOUR PRIOR TO DENTAL PROCEDUR E active Not Available Not Available No t Available metformin 500 mg tablet 03/15 completed Medicati on ID: [id number] D uration Value: 90 Brand Name: metformi n Send Method: E-Prescr ibed Sub s Allowed: subs OK Medic [facility] ericName : metformi n Not Available Not Available Not Available azithromy bernadine 250 mg tablet TAKE 2 TABLETS BY MOUTH TODAY, THEN TAKE 1 TABLET DAILY FOR 4 DAYS DIRECTED 06/30 completed Not Available Not Available Not Available lisinopri l 20 mg tablet active Not Available Not Available Not Available clonazepa m 0.5 mg tablet 04/23 completed Medicati on ID: [id number] D uration Value: 15 Reason: () Brand Name: clonazep am Send Method: E-Prescr ibed Sub s Allowed: subs OK [facility] Not Available Not Available Not Available Lantus U-100 Insulin 100 unit/mL subcutane ous solution 04/23 completed Medicati on ID: [id number] Du ration Value: 56 Reason: () Brand Name: Lantus U-100 Insulin Send Method: E-Prescr ibed Sub s Allowed: subs OK Speci al Instruct ion: INJECT 30 - 38 UNITS SUBCUTAN EOUSLY OR DIRECTED BY MD [facility] : Lantus U-100 Insulin Not Available Not Available Not Available sulfameth oxazole 800 mg-trimet hoprim 160 mg tablet TAKE 1 TABLET BY MOUTH TWICE A DAY FOR 5 DAYS 06/30 completed Not Available Not Available Not Available levothyro xine 100 mcg tablet 03/15 completed Medicati on ID: [id number] D uration Value: 90 Brand Name: levothyr oxine Se nd Method: E-Prescr ibed Sub s Allowed: subs OK Medic [facility] ericName : levothyr oxine Not Available Not Available Not Available ofloxacin 0.3 % ear drops 03/15 completed Medicati on ID: [id number] D uration Value: 10 Brand Name: ofloxaci n Send Method: E-Prescr ibed Sub s Allowed: subs OK Medic [facility] ericName : ofloxaci n Not Available Not Available Not Available pravastat in 80 mg tablet active Not Available Not Available Not Available omeprazol e 20 mg capsule,d elayed release TAKE 1 CAPSULE BY MOUTH DAILY AT 0630 active Not Available Not Available No t Available hydrochlo rothiazid e 25 mg tablet active Not Available Not Available Not Available furosemid e 20 mg tablet TAKE 1 TABLET BY MOUTH EVERY DAY NEEDED FOR EDEMA active Not Available Not Available No t Available metoprolo l succinate ER 25 mg tablet,ex tended release 24 hr active Not Available Not Available Not Available nystatin 100,000 unit/gram topical powder APPLY TO SKIN 3 TIMES DAILY active Not Available Not Available No t Available insulin lispro (U-100) 100 unit/mL subcutane ous solution INJECT 5 UNIT (0.05 ML) SUBCUTAN EOUSLY BEFORE MEALS active Not Available Not Available No t Available lisinopri l 10 mg-hydroc hlorothia zide 12.5 mg tablet TAKE 1 TABLET BY MOUTH EVERY DAY active Not Available Not Available No t Available Ketostix strips USE DIRECTED active Not Available Not Available No t Available levothyro xine 112 mcg tablet active Not Available Not Available Not Available tobramyci n 0.3 %-dexamet hasone 0.1 % eye drops,ester pension 3 drop 04/23 completed Medicati on ID: [id number] D uration Value: 14 Prescri bed By Name: Nam perez MD Brand Name: tobramyc in-dexam ethasone Send Method: E-Prescr ibed Sub s Allowed: subs OK Speci al Instruct ion: apply to affected ear Medi cationGe nericNam e: tobramyc in-dexam ethasone Not Available Not Available Not Available neomycin- polymyxin -hydrocor t 3.5 mg-10,000 unit/mL-1 % ear drops,ester p 03/21 completed Medicati on ID: [id number] Du ration Value: 30 Reason: () Brand [...] Not Available Not Available No t Available nitrofura ntoin monohydra te/macroc rystals 100 mg capsule TAKE 1 CAPSULE BY MOUTH TWICE A DAY FOR 7 DAYS 06/30 completed Not Available Not Available Not Available BD Ultra-Fin e Mini Pen Needle 31 gauge x 3/16 USE TO ADMINIST ER INSULIN 4X/DAY active Not Available Not Available No t Available FreeStyle Lite Strips INSULIN DEPENDEN T DIABETIC TYPE 2 (E11.9) USE TO CHECK BLOOD SUGARS TWICE A DAY active Not Available Not Available No t Available Lantus Solostar U-100 Insulin 100 unit/mL (3 mL) subcutane ous pen INJECT 20 UNITS (0.2 ML) SUBCUTAN EOUSLY BEDTIME active Not Available Not Available No t Available diclofena c 1 % topical gel 03/15 completed Medicati on ID: [id number] B rand Name: diclofen ac sodium S end Method: E-Prescr ibed Sub s Allowed: subs OK Medic ation[facility] ericName : diclofen ac sodium Not Available Not Available Not Available Tresiba FlexTouch U-200 insulin 200 unit/mL (3 mL) subcutane ous pen INJECT 15 UNITS SUBCUTAN EOUSLY ONCE DAILY AT BEDTIME. REPLACES LANTUS INSULIN active Not Available Not Available No t Available TRUEplus Glucose 15 gram/32 mL oral gel packet PLEASE SEE ATTACHED FOR DETAILED DIRECTIO NS active Not Available Not Available No t Available FreeStyle Anna 3 Sensor device DIRECTED EVERY 15 DAYS active Not Available Not Available No t Available Arexvy (PF) 120 mcg/0.5 mL IM suspensio n active Medicati on ID: [id number] B rand Name: Arexvy (PF) Sen d Method: E-Prescr ibed Sub s Allowed: subs OK Medic ation[facility] ericName : Arexvy (PF) Not Available Not Available Not Available Vitals Date Recorded Body height Body mass index (BMI) Body weight Provider Name and Address Organization Details Last Updated DateTime 06/30/2025 157.48 cm 30.4 kg/m2 26037.33 g Alise Duvall [place] - [facility] 06/30/2025 09:12:47 Date Recorded Body height Body mass index (BMI) Body weight Provider Name and Address Organization Details Last Updated DateTime 07/26/2024 157.48 cm 30.7 kg/m2 00766.52 g Donny Sarkar [place] - [facility] 07/26/2024 11:16:48 Social History None recorded. Functional Status None recorded. Mental Status None recorded. Family History Nothing Reported. Medical History No medical history recorded. Gynecological HistoryNo gynecological history recorded. Obstetrics History GPAL:G 0 P 0 0 0 0 Past Encounters Encounter ID Performer Location Encounter Start Date Encounter Closed Date Diagnosis/Indication Diagnosis SNOMED-CT Code Diagnosis ICD10 Code Diagnosis IMO Codes Diagnosis Note [id number] LINDA DESAI PA-C [facility] [address] [address] 07/26/2024 11:12:02 07/26/2024 11:56:27 Impacted cerumen of bilateral ears [id number] 477362 H61.23 [id number] LIANET FORRESTER PA-C [facility] [address] [address] 06/30/2025 09:04:23 06/30/2025 10:59:20 Impacted cerumen of bilateral ears 5169544706 861611 H61.23 Central pe rforation of left tympanic membrane 2369946212 847927 H72.02 Mixed cond uctive AND sensorineural hearing loss 35919627 H90.A32 16287559 Mixed conductive and sensorineu ral hearing loss of left ear with restricted hearing of right ear Audiologic al evaluation results: Right ear:Modera te sloping to severe sensorineu ral hearing loss with fair word recognitio n. Left ear:Severe mixed hearing loss with poor word recognitio n. [id number] Keegan CABRERA [facility] [address] [address] 06/30/2025 10:21:22 07/13/2025 12:10:02 Mixed conductive AND sensorineural hearing loss 20977747 H90.A32 [id number] Audiologic al evaluation results:Ri ght ear:Modera te sloping to severe sensorineu ral hearing loss with fair word recognitio n.Left ear:Severe mixed hearing loss with poor word recognitio n. Health Concerns Section Related Observation LastModified by Organization Detai ls LastModified Time None Recorded Concern Status LastModified by Organization Details LastModified Time None Recorded Advance Directives Directive None Recorded Payers Insurance Date Sequence Insurance Name Policy Number Policy Genao Covered Member ID Genao Member ID Guarantor Name 06/30/2025 1 [place] [facility] [employer] Lisa Gregoryjose [id number] Lisa Torrez Mg 07/13/2025 2 [facility] - PLAN 1 (MEDICARE SUPPLEMENT) [id number] Lisa Torrez Mg [id number] Lisa Torrez Mg 06/30/2025 2 [facility] (MEDICAID HMO) [id number] Lisa Torrez Mg [id number] Lisa Torrez Mg Notes Date Note Type Note Provider Name and Address Organization Details Recorded Time 07/26/2024 text/html ROS as noted in the HPI 88-year-old female presents for evaluation of the ears. She reports that her hearing is very poor despite her hearing aids. She notes it has been a very long time since she had an audiogram. She denies otalgia, otorrhea, and tinnitus. 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 She was in rehab for femur injury for 7 months. Reports gradually worsening hearing. Denies ear pain, drainage, change in tinnitus, or Qtip use. NAM JAMISON MD [address] [facility],[place] [address], [place], [address], [facility] - [facility] 06/30/2025 12:46:21 06/30/2025 text/html Audiological Evaluation HPIReported by PatientHearing LossFor hearing loss perceived, patient reportshearing loss in both ears (left ear worse).Use of amplification or other hearing devicesFor use of amplification or other hearing devices, patient reportshearing aid use in both ears. Keegan CABRERA [address] [facility],[address], [address], [place] - [facility] [place] 06/30/2025 11:05:05 OBGyn Episode No OBEpisode recorded.
== END 2025-10-20 16:02 | disposition home or self-care (01) ==
LOC: HO.ENCR 15:06
PROVIDERS: PCP Internal Medicine; Visit Provider Student in an Organized Health Care Education/Training Program
DX: E10.42 Type 1 diabetes mellitus with diabetic polyneuropathy (principal); E10.10 Type 1 diabetes mellitus with ketoacidosis without coma; E10.65 Type 1 diabetes mellitus with hyperglycemia
CPT/HCPCS: 99214